=== PATIENT | female | born 1985 | race Caucasian/White ===

== ENCOUNTER 2022-08-07 22:52 | Emergency (ER) | payer MEDICAID, SELFPAY ==
[2022-08-07 22:56] VITALS: BP 154/89; PULSE 68; RESP 16; TEMP 36.6; O2SAT 99; BMI 25.0
--- NOTE | 2022-08-07 23:05 | ED.LOWEXI1 ---
HPI - Extremity Injury (Lower) General Chief Complaint: Extremity Injury, Lower Stated Complaint: RIGHT FOOT PAIN Time Seen by Provider: 08/07/22 23:05 Source: patient and family Mode of arrival: walk-in Limitations: no limitations History of Present Illness HPI Narrative: Patient presents to emergency department complaining of right foot swelling.Patient states that she was getting into the tanning bed she noted swelling to the right foot web space between the great toe and the 2nd toe. She states she has a history of rheumatoid arthritis. She denies any trauma. She denies any fever, no chills. She does not think she was bit by an insect. She does not have any pain and is not itchy. thought that it looked bigger so he came for evaluation. Patient states she used strep flip-flops in the past but not today. She denies any pain. She has not taken anything at home. Related Data Home Medications Medication Instructions Recorded Confirmed buprenorphine 8 mg-naloxone 2 mg 1 tab sublingual DAILY 08/07/22 08/07/22 sublingual tablet gabapentin 600 mg tablet mg 08/07/22 leflunomide 10 mg tablet mg 08/07/22 Previous Rx's Medication Instructions Recorded prednisone 20 mg tablet 20 mg PO DAILY 3 days #3 tabs 08/08/22 Allergies Allergy/AdvReac Type Severity Reaction Status Date / Time No Known Drug Allergies Allergy Verified 08/07/22 23:00 Review of Systems ROS Status of ROS 10 or more systems reviewed and unremarkable except as noted in history and below Exam Narrative Exam Narrative: Nurses notes and vital signs reviewed and patient is not hypoxic. General: Nontoxic, Well-appearing and in no apparent distress. Skin: Warm, dry, no pallor noted. No Rash Head: Normocephalic, atraumatic. Neck: Supple, non-tender. Eye: Pupils are equal, round and EOMI. No scleral icterus. Ears, Nose, Mouth, and Throat: TM clear, no posterior oropharynx erythema or nasal mucosal hypertrophy, uvula is mid-line Oral mucosa is moist Cardiovascular: Regular Rate and Rhythm without murmur, gallop or rub. Respiratory: No accessory muscle use or respiratory distress. Lungs are clear to auscultation, no wheezing, rales or rhonchi Chest Wall: no tenderness Back: No midline thoracic or lumbar vertebral tenderness. No CVA tenderness Musculoskeletal: Mild edema and erythema noted to the right web of the great toe and 2nd toe. There is no warmth, proximal streaking, signs of trauma, or infection. Seems to be more of localized inflammation. There is nontender. DP +2, tp +2, capillary refill is brisk. normal ROM, no calf or popliteal tenderness, no lower extremity edema/swelling GI: Abdomen is soft, non-distended. Normal bowel sounds. No masses appreciated. No tenderness to palpation. No rebound, guarding, or rigidity noted. Neurological: A&O x4. No cranial nerve dysfunction observed. No truncal ataxia. Moves all extremities. Sensation intact. Psychiatric: Cooperative and interactive. Normal mood and affect. Constitutional Vital Signs - 24 hr 08/07/22 22:56 Temperature 97.9 F Pulse Rate [Monitor] 68 Respiratory Rate 16 Blood Pressure [Left Arm] 154/89 H Pulse Oximetry 99 Course Vital Signs Vital signs: Vital Signs Temperature 97.9 F 08/07/22 22:56 Pulse Rate 68 08/07/22 22:56 Respiratory Rate 16 08/07/22 22:56 Blood Pressure 154/89 H 08/07/22 22:56 Pulse Oximetry 99 08/07/22 22:56 Temperature 97.9 F 08/07/22 22:56 Pulse Rate 68 08/07/22 22:56 Respiratory Rate 16 08/07/22 22:56 Blood Pressure 154/89 H 08/07/22 22:56 Pulse Oximetry 99 08/07/22 22:56 MDM - Extremity Injury (Lower) MDM Narrative Medical decision making narrative: X-ray was done, and it shows inflammation secondary to arthhritis. A uric acid level was done to exclude gout however with the patient's history of rheumatoid arthritis the patient was placed on 20 mg of prednisone for 3 days and she is to follow up with her primary care doctor and fire investigation manager. She did not want to wait for the results of the uric acid prior to leaving the emergency department. They will be called to her. At this time the patient is without objective evidence of an acute process requiring hospitalization or inpatient management. The patient has remained hemodynamically stable. No additional indication for emergent studies at this time. I answered all questions. Discussed discharge instructions including standard anticipatory guidance and what should prompt a return to the emergency department, including if they get worse are not getting better or develops any new or concerning symptoms. I've given them specific time frame in which to follow-up, and who to follow-up with. The patient demonstrates understanding. Patient is nontoxic and stable for discharge with outpatient follow-up. This note was created with the assistance of a speech recognition program. Although the intention is to generate documents that actually reflects the content of the visit, no guarantees can be provided that every mistake has been identified and corrected by editing. Differential Diagnosis Differential diagnosis: Likely fracture of toe and other Discharge Plan Discharge Chief Complaint: Extremity Injury, Lower Clinical Impression: Gouty arthritis of foot, Rheumatoid arthritis flare Patient Disposition: Home, Self-Care Time of Disposition Decision: 00:21 Condition: Good Mode of Transportation: Private Vehicle Prescriptions / Home Meds: New prednisone 20 mg tablet 20 mg PO DAILY 3 Days Qty: 3 0RF No Action gabapentin 600 mg tablet leflunomide 10 mg tablet buprenorphine-naloxone 8-2 mg tablet, sublingual 1 tab sublingual DAILY Instructions: Gout (ED), Rheumatoid Arthritis (ED) Stand Alone Forms: Portal Instructions Referrals: Physician,Non-Staff, MD [Primary Care Provider] - 1 week Discharge Date/Time: 08/08/22 00:30
--- NOTE | 2022-08-07 23:13 | XR_ITS ---
The [address] [address] Patient Name: ERIKA HURLEY MRN: [id number] date: 1985 Sex: F Assigned Patient Location: ER Current Patient Location: ER Accession/Order Number: [id number] Exam Date: 08/07/2022 23:20 Report Date: 08/07/2022 23:54 At the request of: TORRES ARNOLD Procedure: XR foot RT min 3V EXAM: XR foot RT min 3V HISTORY: The patient is a 37-year-old female with swelling between the first and second toes. COMPARISON: Comparison is made to prior radiographs of the contralateral left foot from 10/07/2021. FINDINGS: There is a transverse fracture through the head of the right fifth metatarsal. 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 The current AP view demonstrates small marginal erosions at the medial and lateral base of the great toe proximal phalanx. While these could be due to inflammatory arthropathy such as rheumatoid arthritis, the width of the first metatarsophalangeal joint is maintained and this would be unusual for rheumatoid arthritis. Furthermore, none of the other metatarsophalangeal joints of the right foot are involved, and this would also be unusual for rheumatoid arthritis. The small marginal erosions could be due to gout, and this would explain the presentation of the width of the first metatarsophalangeal joint. I note the patient had similar marginal erosions within the left fifth metatarsal head on the prior radiographs of 10/07/2021, and these could also be due to gout. No calcified tophi are seen within either foot. No other marginal erosions are seen throughout the right foot. The widths and alignment of all the joints are maintained. No acute fractures are seen. IMPRESSION: 1. Small marginal erosions at the base of the right first proximal phalanx, possibly due to gout. 2. 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 Electronically authenticated by: SVETLANA GASCA Date: 08/07/2022 23:54
[2022-08-08] MEDS: PREDNISONE 20 MG TABLET PO (00:26)
[2022-08-08 00:48] LABS: Uric Acid 3.8 mg/dL (2.6-6.0)
== END 2022-08-08 00:30 | disposition home or self-care (01) ==
PROVIDERS: Emergency Provider Emergency Medicine
DX: M10.9 Gout, unspecified (principal); M06.9 Rheumatoid arthritis, unspecified; Z79.899 Other long term (current) drug therapy
CPT/HCPCS: 36415; 73630; 84550; 99284

== ENCOUNTER 2022-08-22 10:54 | Emergency (ER) | payer MEDICAID, SELFPAY ==
[2022-08-22 11:02] VITALS: BP 115/77; PULSE 99; RESP 18; TEMP 36.8; O2SAT 99; BMI 24.2
--- NOTE | 2022-08-22 11:41 | ED_ITS ---
HPI - General Adult General Chief complaint: Extremity Injury, Upper Stated complaint: UPPER EXTREMITY PAIN, BOTH WRISTS Time Seen by Provider: 08/22/22 11:17 Mode of arrival: ambulance History of Present Illness HPI narrative: patient has pain and swelling on both wrists and the right foot. She has RA and sees a specialist in [place]. She gets infusions - she does not know the name of the med - every 7 weeks and they are trying to increase the infusions to every 5 weeks. No fever or chills. No vomiting. She sometimes takes prednisone for flare ups but currently has none. She also complains that she has a cough with greenish sputum production and some wheezing. She is a daily smoker. Related Data Home Medications Medication Instructions Recorded Confirmed buprenorphine 8 mg-naloxone 2 mg 1 tab sublingual DAILY 08/07/22 08/07/22 sublingual tablet gabapentin 600 mg tablet mg 08/07/22 leflunomide 10 mg tablet mg 08/07/22 Previous Rx's Medication Instructions Recorded prednisone 20 mg tablet 20 mg PO DAILY 3 days #3 tabs 08/08/22 albuterol sulfate 90 mcg/actuation 1 inh inhalation Q6H PRN shortness 08/22/22 aerosol inhaler of breath or wheezing #6.7 grams azithromycin 250 mg tablet See Rx Instructions PO .COMPLEX #6 08/22/22 tabs methylprednisolone 4 mg tablets in 4 mg PO DAILY #21 ea 08/22/22 a dose pack (Medrol (Rishabh)) nabumetone 750 mg tablet 750 mg PO BID PRN pain #20 tabs 08/22/22 Allergies Allergy/AdvReac Type Severity Reaction Status Date / Time No Known Drug Allergies Allergy Verified 08/07/22 23:00 Exam Narrative Exam Narrative: Nurses notes and vital signs reviewed and patient is not hypoxic. afebrile General: Well-appearing and in no apparent distress. Skin: Warm, dry, no pallor noted. No rash. Head: Normocephalic, atraumatic. Eye: Pupils are equal, round and EOMI. No scleral icterus. Ears, Nose, Mouth, and Throat: Oral mucosa is moist Cardiovascular: borderline tachycardia. Respiratory: No accessory muscle use or respiratory distress. Lungs with mild, diffuse end expiratory wheezing and some scattered rhonchi Musculoskeletal: normal ROM Neurological: A&O x4. No cranial nerve dysfunction observed. No truncal ataxia. Moves all extremities. Sensation intact. Psychiatric: Cooperative and interactive. Normal mood and affect. Constitutional Vital Signs - 24 hr 08/22/22 11:02 Temperature 98.2 F Pulse Rate [Monitor] 99 H Respiratory Rate 18 Blood Pressure [Left Arm] 115/77 Pulse Oximetry 99 Oxygen Delivery Method Room Air Course Vital Signs Vital signs: Vital Signs Temperature 98.2 F 08/22/22 11:02 Pulse Rate 99 H 08/22/22 11:02 Respiratory Rate 18 08/22/22 11:02 Blood Pressure 115/77 08/22/22 11:02 Pulse Oximetry 99 08/22/22 11:02 Oxygen Delivery Method Room Air 08/22/22 11:02 Temperature 98.2 F 08/22/22 11:02 Pulse Rate 99 H 08/22/22 11:02 Respiratory Rate 18 08/22/22 11:02 Blood Pressure 115/77 08/22/22 11:02 Pulse Oximetry 99 08/22/22 11:02 Oxygen Delivery Method Room Air 08/22/22 11:02 Medical Decision Making [facility] Narrative Medical decision making narrative: the patient is here for acute flare-up of her parlay arthralgia associated with rheumatoid arthritis. She was given IM injections of Toradol and Solu-Medrol. She was discharged home with prescriptions for Relafen and a Medrol Dosepak to manage her arthritis flare. She also has bronchitis and was discharged home with albuterol MDI and a prescription for azithromycin. She can see her PCP for follow up regarding her bronchitis and the professor of psychology for follow up regarding her polyarthralgia. Discharge Plan Discharge Chief Complaint: Extremity Injury, Upper Clinical Impression: Rheumatoid arthritis flare, Bronchitis Patient Disposition: Home, Self-Care Time of Disposition Decision: 11:38 Prescriptions / Home Meds: New nabumetone 750 mg tablet 750 mg PO BID PRN (Reason: pain) Qty: 20 0RF methylprednisolone [Medrol (Rishabh)] 4 mg tablets,dose pack 4 mg PO DAILY Qty: 21 0RF Rx Instructions: follow directions on the package azithromycin 250 mg tablet See Rx Instructions .ROUTE .COMPLEX Qty: 6 0RF Rx Instructions: For 250 mg dose pack: take 500 mg today (day 1), then 250 mg for 4 days (days 2-5) albuterol sulfate 90 mcg/actuation HFA aerosol inhaler 1 inh inhalation Q6H PRN (Reason: shortness of breath or wheezing) Qty: 6.7 0RF No Action gabapentin 600 mg tablet leflunomide 10 mg tablet buprenorphine-naloxone 8-2 mg tablet, sublingual 1 tab sublingual DAILY prednisone 20 mg tablet 20 mg PO DAILY 3 Days Qty: 3 0RF Instructions: Rheumatoid Arthritis (ED), Arthralgia (ED) Stand Alone Forms: Portal Instructions Referrals: Physician,Non-Staff, MD [Primary Care Provider] - 1 week
[2022-08-22] MEDS: KETOROLAC TROMETHAMINE 60 MG/2 ML VIAL IM (11:54)
[2022-08-22] MEDS: METHYLPREDNISOLONE SOD SUCC PF 125 MG/2 ML VIAL IM (11:54)
== END 2022-08-22 12:00 | disposition home or self-care (01) ==
PROVIDERS: Emergency Provider Emergency Medicine
DX: J40 Bronchitis, not specified as acute or chronic (principal); M06.9 Rheumatoid arthritis, unspecified; Z79.899 Other long term (current) drug therapy; F17.210 Nicotine dependence, cigarettes, uncomplicated
CPT/HCPCS: 96372; 99284; J2930

== ENCOUNTER 2022-12-14 13:37 | Outpatient (OUT) | payer MEDICAID, SELFPAY ==
[2022-12-14 14:04] LABS: Alanine Aminotransferase 33 U/L (14-59); Aspartate Amino Transferase 19 U/L (15-37)
== END 2022-12-14 13:38 | disposition home or self-care (01) ==
LOC: LAB 13:37
DX: M05.9 Rheumatoid arthritis with rheumatoid factor, unspecified (principal)
CPT/HCPCS: 36415; 84450; 84460

== ENCOUNTER 2023-04-13 15:36 | Emergency (ER) | payer MEDICAID, SELFPAY ==
[2023-04-13 15:44] VITALS: BP 130/95; PULSE 83; RESP 18; TEMP 36.8; O2SAT 100; BMI 26.6
--- NOTE | 2023-04-13 15:58 | ED_ITS ---
HPI - General Adult General Chief complaint: Weakness Stated complaint: Upper Pain Time Seen by Provider: 04/13/23 15:49 Source: patient Mode of arrival: walk-in Limitations: no limitations History of Present Illness HPI narrative: This patient is here for evaluation of what she believes is a flareup of her rheumatoid arthritis. She is under the care of a bird trapper and has an appointment to see her rheumatology doctor at the end of the month for another infusion. She has been trying several different Biologics and trying to find the best combination for her. She says sometimes she has to go to the emergency room and get some steroids before she scheduled to get her next scheduled infusion. Establish when I listen and examine her she also has a cough. She says she has been coughing up purulent yellow sputum for the last several weeks and has had a cough flareup for the last month or so. She is also out of her albuterol inhaler. She is not running a fever. She actually denies any shortness of breath fever shakes or chills. But purulent sputum is new for her. She continues to smoke a half a pack to 1 pack/cigarettes/day. Related Data Home Medications Medication Instructions Recorded Confirmed buprenorphine 8 mg-naloxone 2 mg 1 tab sublingual DAILY 08/07/22 04/13/23 sublingual tablet gabapentin 600 mg tablet 600 mg PO Q8H 08/07/22 04/13/23 leflunomide 10 mg tablet 10 mg PO Q24H 08/07/22 04/13/23 buprenorphine 8 mg-naloxone 2 mg 1 film sublingual Q24H 04/13/23 04/13/23 sublingual film lisdexamfetamine 50 mg capsule 50 mg PO Q24H 04/13/23 04/13/23 (Vyvanse) venlafaxine 75 mg capsule,extended 75 mg PO Q24H 04/13/23 04/13/23 release 24 hr Previous Rx's Medication Instructions Recorded prednisone 20 mg tablet 20 mg PO DAILY 3 days #3 tabs 08/08/22 albuterol sulfate 90 mcg/actuation 1 inh inhalation Q6H PRN shortness 08/22/22 aerosol inhaler of breath or wheezing #6.7 grams azithromycin 250 mg tablet See Rx Instructions PO .COMPLEX #6 08/22/22 tabs methylprednisolone 4 mg tablets in 4 mg PO DAILY #21 ea 08/22/22 a dose pack (Medrol (Rishabh)) nabumetone 750 mg tablet 750 mg PO BID PRN pain #20 tabs 08/22/22 Allergies Allergy/AdvReac Type Severity Reaction Status Date / Time No Known Drug Allergies Allergy Verified 08/07/22 23:00 [facility] Social History Smoking status: Never smoker Exam Narrative Exam Narrative: Patient is awake alert in no distress vital signs are stable her pulse oximetry is normal. On examination chest when I have her breathe do not hear any rales or rhonchi but she does have some end expiratory bronchospasm made worse with coughing maneuvers. Her heart sounds are normal.. Examination trunk torso and extremities she has some aching in the in her small to medium size joints of the distal extremities in the upper limbs as well but I do not see evidence of infectious arthritis or cellulitis to the overlying soft tissues over the joints. She just has generalized achiness of her feet and her hands. Otherwise her skin and integument are normal. Constitutional Vital Signs, click to edit/add: Last Vital Signs Temp 98.2 F 04/13/23 15:44 Pulse 83 04/13/23 15:44 Resp 18 04/13/23 15:44 BP 130/95 H 04/13/23 15:44 Pulse Ox 100 04/13/23 15:44 Course Vital Signs Vital signs: Vital Signs Temperature 98.2 F 04/13/23 15:44 Pulse Rate 83 04/13/23 15:44 Respiratory Rate 18 04/13/23 15:44 Blood Pressure 130/95 H 04/13/23 15:44 Pulse Oximetry 100 04/13/23 15:44 Temperature 98.2 F 04/13/23 15:44 Pulse Rate 83 04/13/23 15:44 Respiratory Rate 18 04/13/23 15:44 Blood Pressure 130/95 H 04/13/23 15:44 Pulse Oximetry 100 04/13/23 15:44 Medical Decision Making [facility] Narrative Medical decision making narrative: The patient presented with increasing polyarthritis requesting essentially a steroid burst before she can get her next biologic infusion in about 10 days. Incidentally she does have purulent bronchitis and continues to smoke cigarettes. With her using the steroid I think it is important to cover her with a steroid. She is out of her inhaler so I will give her that and I want to give her an antibiotic coverage as well Discharge Plan Discharge Chief Complaint: Weakness Clinical Impression: Acute purulent bronchitis, Flare of rheumatoid arthritis Patient Disposition: Home, Self-Care Time of Disposition Decision: 16:02 Prescriptions / Home Meds: No Action gabapentin 600 mg tablet 600 mg PO Q8H leflunomide 10 mg tablet 10 mg PO Q24H buprenorphine-naloxone 8-2 mg tablet, sublingual 1 tab sublingual DAILY prednisone 20 mg tablet 20 mg PO DAILY 3 Days Qty: 3 0RF lisdexamfetamine [Vyvanse] 50 mg capsule 50 mg PO Q24H venlafaxine 75 mg capsule,extended release 24hr 75 mg PO Q24H buprenorphine-naloxone 8-2 mg film 1 film sublingual Q24H nabumetone 750 mg tablet 750 mg PO BID PRN (Reason: pain) Qty: 20 0RF methylprednisolone [Medrol (Rishabh)] 4 mg tablets,dose pack 4 mg PO DAILY Qty: 21 0RF Rx Instructions: follow directions on the package azithromycin 250 mg tablet See Rx Instructions .ROUTE .COMPLEX Qty: 6 0RF Rx Instructions: For 250 mg dose pack: take 500 mg today (day 1), then 250 mg for 4 days (days 2-5) albuterol sulfate 90 mcg/actuation HFA aerosol inhaler 1 inh inhalation Q6H PRN (Reason: shortness of breath or wheezing) Qty: 6.7 0RF Additional Instructions: Prednisone/albuterol/azithromycin Stand Alone Forms: Portal Instructions Referrals: Niya Santiago INSTRUCTIONAL SUPPORT SPECIALIST [Primary Care Provider] - 1 week
== END 2023-04-13 16:18 | disposition home or self-care (01) ==
PROVIDERS: Emergency Provider Emergency Medicine Emergency Medical Services; PCP Nurse Practitioner
DX: J20.9 Acute bronchitis, unspecified (principal); M06.9 Rheumatoid arthritis, unspecified; F17.210 Nicotine dependence, cigarettes, uncomplicated; Z79.899 Other long term (current) drug therapy
CPT/HCPCS: 99283

== ENCOUNTER 2023-06-01 22:38 | Emergency (ER) | payer MEDICAID, SELFPAY ==
[2023-06-01 22:41] VITALS: BP 142/82; PULSE 68; TEMP 36.6; O2SAT 100; BMI 27.5
[2023-06-01 22:48] VITALS: O2SAT 100
--- NOTE | 2023-06-01 22:55 | ED.URI1 ---
HPI - URI/Sore Throat General Chief Complaint: Upper Respiratory Infection Stated Complaint: Upper Respiratory Infection Time Seen by Provider: 06/01/23 22:49 Source: patient Limitations: no limitations History of Present Illness HPI Narrative: One week of chest congestion, cough, wheezing. Mild sore throat. No fever or chills. No GI or symptoms. Patient smokes daily. No vaping. She was started on an albuterol MDI 5 days ago at the urgent care. No other meds were prescribed. She has rheumatoid arthritis. Related Data Home Medications ?Medication ?Instructions ?Recorded ?Confirmed buprenorphine 8 mg-naloxone 2 mg 1 tab sublingual DAILY 08/07/22 06/01/23 sublingual tablet gabapentin 600 mg tablet 600 mg PO Q8H 08/07/22 06/01/23 leflunomide 10 mg tablet 10 mg PO Q24H 08/07/22 06/01/23 buprenorphine 8 mg-naloxone 2 mg 1 film sublingual Q24H 04/13/23 06/01/23 sublingual film lisdexamfetamine 50 mg capsule 50 mg PO Q24H 04/13/23 06/01/23 (Vyvanse) Previous Rx's ?Medication ?Instructions ?Recorded azithromycin 250 mg tablet 250 mg PO DAILY 4 days #4 tabs 06/01/23 prednisone 20 mg tablet 40 mg (2 x 20 mg) PO DAILY 3 days 06/01/23 #6 tabs Allergies Allergy/AdvReac Type Severity Reaction Status Date / Time No Known Drug Allergies Allergy Verified 06/01/23 22:44 [facility] Social History Smoking status: Never smoker Exam Narrative Exam Narrative: Nurses notes and vital signs reviewed and patient is not hypoxic. afebrile General: Well-appearing and in no apparent distress. Skin: Warm, dry, no pallor noted. No rash. Head: Normocephalic, atraumatic. Neck: Supple, non-tender. No cervical lymphadenopathy. No meningismus. Eye: Pupils are equal, round and EOMI. No scleral icterus. Ears, Nose, Mouth, and Throat: TM are clear, mild posterior oropharynx erythema without exudate or nasal mucosal hypertrophy, uvula is mid-line Oral mucosa is moist Cardiovascular: Regular Rate and Rhythm without murmur, gallop or rub. Respiratory: No accessory muscle use or respiratory distress. Lungs With end expiratory wheezing and scattered rhonchi throughout Chest Wall: no tenderness Musculoskeletal: normal ROM, no calf or popliteal tenderness, no lower extremity edema/swelling GI: Abdomen is soft, non-distended. Normal bowel sounds. No tenderness to palpation. No rebound, guarding, or rigidity noted. Neurological: A&O x4. No cranial nerve dysfunction observed. No truncal ataxia. Moves all extremities. Sensation intact. Psychiatric: Cooperative and interactive. Normal mood and affect. Constitutional Vital Signs, click to edit/add: Last Vital Signs Temp 98 F 06/01/23 22:41 Pulse 68 06/01/23 22:41 Resp 18 06/01/23 22:41 BP 142/82 H 06/01/23 22:41 Pulse Ox 100 06/01/23 22:48 O2 Del Method Room Air 06/01/23 22:48 Course Vital Signs Vital signs: Vital Signs Temperature 98 F 06/01/23 22:41 Pulse Rate 68 06/01/23 22:41 Respiratory Rate 18 06/01/23 22:41 Blood Pressure 142/82 H 06/01/23 22:41 Pulse Oximetry 100 06/01/23 22:41 Oxygen Delivery Method Room Air 06/01/23 22:41 Temperature 98 F 06/01/23 22:41 Pulse Rate 68 06/01/23 22:41 Respiratory Rate 18 06/01/23 22:41 Blood Pressure 142/82 H 06/01/23 22:41 Pulse Oximetry 100 06/01/23 22:48 Oxygen Delivery Method Room Air 06/01/23 22:48 MDM - URI/Sore Throat MDM Narrative Medical decision making narrative: The patient was started on antibiotic in the emergency department. She was also given a dose of prednisone orally. She received a DuoNeb treatment and was discharged home with a prescription for additional azithromycin as well as prednisone. Primary care physician follow-up recommended as needed or ED return if she worsens Discharge Plan Discharge Stand Alone Forms: Portal Instructions Chief Complaint: Upper Respiratory Infection Clinical Impression: Upper respiratory infection, Bronchitis Patient Disposition: Home, Self-Care Time of Disposition Decision: 22:58 Prescriptions / Home Meds: New azithromycin 250 mg tablet 250 mg PO DAILY 4 Days Qty: 4 0RF Rx Instructions: start on day 2 of therapy prednisone 20 mg tablet 40 mg PO DAILY 3 Days Qty: 6 0RF No Action gabapentin 600 mg tablet 600 mg PO Q8H leflunomide 10 mg tablet 10 mg PO Q24H buprenorphine-naloxone 8-2 mg tablet, sublingual 1 tab sublingual DAILY lisdexamfetamine [Vyvanse] 50 mg capsule 50 mg PO Q24H buprenorphine-naloxone 8-2 mg film 1 film sublingual Q24H Print Language: [place]ian Instructions: Upper Respiratory Infection (ED), Acute Bronchitis (ED) Referrals: Niya Santiago [employer] [Primary Care Provider] - 1 week
[2023-06-01] MEDS: PREDNISONE 20 MG TABLET 60 MG PO (23:06)
[2023-06-01] MEDS: AZITHROMYCIN 250 MG TABLET 500 MG PO (23:07)
[2023-06-01 23:08] VITALS: PULSE 65; O2SAT 96
[2023-06-01] MEDS: IPRATROPIUM/ALBUTEROL SULFATE 3 ML AMPUL.NEB IH (23:08)
== END 2023-06-01 23:26 | disposition home or self-care (01) ==
PROVIDERS: Emergency Provider Emergency Medicine; PCP Nurse Practitioner
DX: J06.9 Acute upper respiratory infection, unspecified (principal); J40 Bronchitis, not specified as acute or chronic; F17.210 Nicotine dependence, cigarettes, uncomplicated; Z79.899 Other long term (current) drug therapy
CPT/HCPCS: 94640; 99283

== ENCOUNTER 2023-08-14 05:55 | Emergency (ER) | payer MEDICAID, SELFPAY ==
[2023-08-14 05:59] VITALS: BP 138/89; PULSE 114; TEMP 36.9; O2SAT 97; BMI 24.8
--- OUTSIDE RECORDS SUMMARY | 2023-08-14 06:02 | XMS_ITS | CCD ---
Author Organization [facility] Care Team Providers Care Broom Handle Dipper Name Role Phone Unavailable Primary Care Provider Unavailjason e Tino Blake Primary Care Provider ALEX REINOSO Attending Unavailable Tino Blake Primary Care Provider 1( [phone] Tino Blake Primary Care Provider Tino Blake Primary Care Provider REQUEST, NONE LISTED Primary Care Unavaila ble CHARANJIT QUINTERO Admitting Unavailable CHARANJIT QUINTERO Attending Unavailable CHARANJIT QUINTERO Consulting Unavailable REQUEST, NONE LISTED Primary Care Unavaila ble HAY ., DR BAKER Admitting Unavailable HAY ., DR BAKER Attending Unavailable HAY ., DR BAKER Consulting Unavailable MELODY ., DR ARMENTA Admitting Unavailable MELODY ., DR ARMENTA Attending Unavailable REQUEST, NONE LISTED Primary Care Unavaila ble MELODY ., DR ARMENTA Consulting Unavailable MELODY ., DR ARMENTA Admitting Unavailable MELODY ., DR ARMENTA Attending Unavailable REQUEST, NONE LISTED Primary Care Unavaila ble MELODY ., DR ARMENTA Consulting Unavailable MELODY ., DR ARMENTA Admitting Unavailable MELODY ., DR ARMENTA Attending Unavailable REQUEST, DR WILSON LISTED Primary Care Unavaila ble MELODY ., DR ARMENTA Consulting Unavailable NORBERTO BECKMAN Consulting Unavailable TERESO VELÁZQUEZ Consulting Unavailable MELODY ., DR ARMENTA Admitting Unavailable MELODY ., DR ARMENTA Attending Unavailable REQUEST, NONE LISTED Primary Care Unavaila ble MELODY ., DR ARMENTA Consulting Unavailable ADRIANA STEPHENS Admitting Unavailable ADRIANA STEPHENS Attending Unavailable REQUEST, DR WILSON LISTED Primary Care Unavaila ble ALCIDES ., SINAN CRUZ Consulting Unavailabl e RIMMA REIS Consulting Unavailable [facility] MEEKS Attending Unavailable NIYA MEEKS Attending Unavailable NIYA MEEKS Attending Unavailable [facility] [place] Unavaila ble SELF Referring Unavailable HAYDEN, [facility] Unavaila ble LIZ, FARIBA M Attending Unavailable JUAN DANIEL LEOS Referring Unavailable [place], [facility] Unavaila ble HADYEN, [facility] Unavaila ble SELF Referring Unavailable [place], [facility] Unavaila ble LIZ, FARIBA M Attending Unavailable [place], [facility] Unavaila ble HAYDEN, [facility] Unavaila ble HAYDEN, [facility] Unavaila ble LIZ, FARIBA M Referring Unavailable [place], [facility] Unavaila ble LIZ, FARIBA M Attending Unavailable [facility] [place] Unavaila ble HAYDEN, [facility] Unavaila ble LIZ, FARIBA M Referring Unavailable [facility] [place] Unavaila ble LIZ, FARIBA M Attending Unavailable [facility] [place] Unavaila ble Allergies Allergy Classification Reported Allergen(s) Allergy Type Date of Onset Reaction(s) Facility (20 sources) inFLIXimab; Translations: [INFLIXIMAB-AXXQ] Drug Allergy 10-22-2022 Anaphylaxis [facility] Medications Current Medications Medication Drug Class(es) Dates Sig (Normalized) Sig (Original) acetaminophen 325 mg oral tablet (2 sources) Start: 07-11-2019 End: 07-12-2019 take 650 mg by mouth every four hours as needed for fever, then take 4000 mg by mouth every twenty-four hours as needed for fever 650 mg, Oral, EVERY 4 HOURS PRN, Fever, Fever >100.5 F (38 C) or pain 1-10, Starting 07/12/19 at 1354 Maximum dose of acetaminophen is 4000 mg from all sources in 24 hours. [id number] 200 actuat albuterol 0.09 mg/actuat metered dose inhaler (20 sources) beta2-Adrenergic Agonist Start: 05-26-2023 take 2 puff(s) by inhalation every four hours as needed for wheezing albuterol HFA (PROVENTIL HFA, VENTOLIN HFA) 90 mcg/actuation inhaler Indications: Wheezing Inhale 2 Puffs as instructed every 4 hours as needed for wheezing/shortness of breath. 6.7 g 0 05/26/2023 Active Start: 05-26-2023 End: 05-26-2023 albuterol 2.5 mg /3 mL (0.08 3 %) 2.5 mg (PROVENTIL) Start: 08-22-2022 End: 05-26-2023 take 1 puff(s) by inhalation every six hours as needed for wheezing albuterol HFA (PROVENTIL HFA, VENTOLIN HFA) 90 mcg/actuation inhaler INHALE 1 PUFF EVERY 6 HOURS NEEDED FOR SHORTNESS OF BREATH OR WHEEZING 0 08/22/2022 05/26/2023 Discontinued Comment on above: INHALE 1 PUFF EVERY 6 HOURS NEEDED FOR SHORTNESS OF BREATH OR WHEEZING Inhale 2 Puffs as in structed every 4 hours as needed for wheezing/shortness of breath. albuterol 0.833 mg/ml / ipratropium bromide 0.167 mg/ml inhalation solution (2 sources) Anticholinergic, beta2-Adrenergic Agonist Start: 09-15-2020 ipratropium-albuterol (DUONEB) nebulizer solution 1 ampule Start: 09-15-2020 take 3 mL by inhalat ion every four hours ipratropium-albuterol (DUONEB) 0.5-2.5 (3) MG/3ML SOLN nebulizer solution Inhale 3 mLs into the lungs every 4 hours 360 mL 0 09/15/2020 Active benzocaine 200 mg/ml / menthol 5 mg/ml topical spray (1 source) Standardized Chemical Allergen Start: 07-12-2019 apply 1 dose topically twice daily Topical, 2 TIMES DAILY, First dose on Wed07/12/19 at 1415 Apply to perineal area. Patient is capable and may self administer at bedside. budesonide 0.25 mg/ml inhalation suspension (2 sources) Corticosteroid Start: 09-15-2020 budesonide (PULMICORT) nebulizer suspension 500 mcg Start: 09-15-2020 budesonide (PU LMICORT) 0.5 MG/2ML nebulizer suspension Take 2 mLs by nebulization 2 times daily 30 ampule 0 09/15/2020 Active buprenorphine HCl/naloxone HCl (BUPRENORPHINE-NALOXONE BUCCAL) (6 sources) Start: 08-07-2022 buprenorphine HCl/naloxone HCl (BUPRENORPHINE-NALOXONE BUCCAL) Buprenorphine-Naloxone Active 1 FILM SL Q24H April 13, 2023 12:00am 0 08/07/2022 Active Comment on above: Buprenorphine-Naloxo ne Active 1 FILM SL Q24H April 13, 2023 12:00am 1 ml carboprost 0.25 mg/ml injection (1 source) Prostaglandin Analog Start: 07-11-2019 carboprost (HEMABATE) injection 250 mcg cephalexin 500 mg oral capsule (1 source) Cephalosporin Antibacterial Start: 05-12-2019 End: 05-19-2019 take 1 capsule by mouth four times daily cephALEXin (KEFLEX) 500 MG capsule Take 1 capsule by mouth 4 times daily for 7 days 28 capsule 0 05/12/2019 05/19/2019 Active cetirizine hydrochloride 10 mg oral tablet (7 sources) Histamine-1 Receptor Antagonist Start: 05-26-2023 take 1 tablet by mouth once daily cetirizine (ZYRTEC) 10 mg tablet Indications: Wheezing Take 1 tablet by mouth once daily. 30 tablet 0 05/26/2023 Active Comment on above: Take 1 tablet by jude once daily. cholecalciferol 0.025 mg oral capsule (20 sources) Vitamin D Start: 01-06-2022 take 2 capsules by mouth once daily Cholecalciferol, Vitamin D3, (VITAMIN D) 25 mcg (1,000 unit) cap Indications: Vitamin D deficiency Take 2 capsules by mouth once daily. 60 capsule 3 01/06/2022 Active Start: 10-29-2021 End: 10-29-2021 take 2 capsules by mouth once daily Cholecalciferol, Vitamin D3, (VITAMIN D) 25 mcg (1,000 unit) cap Indications: Vitamin D deficiency Take 2 capsules by mouth once daily. 60 capsule 3 10/29/2021 Active Comment on above: Take 2 capsules by m out once daily. clobetasol propionate 0.5 mg/ml topical cream (6 sources) Corticosteroid Start: 2023 clobetasol (TEMOVATE) 0.05 % cream APPLY THIN LAYER TO ELBOW REGION TWICE DAILY FOR 14 DAYS 0 03/11/2023 Active Comment on above: APPLY THIN LAYER TO ELBOW REGION TWICE DAILY FOR 14 DAYS dexamethasone 1 mg/ml / tobramycin 3 mg/ml ophthalmic suspension (1 source) Aminoglycoside Antibacterial, Corticosteroid Start: 2018 End: 2018 take 2 drop(s) into the eye(s) four times daily tobramycin-dexameth asone (TOBRADEX) 0.3-0.1 % ophthalmic suspension Indications: Other mucopurulent conjunctivitis of right eye Place 2 drops into the right eye 4 times daily for 7 days 1 Bottle 0 01/16/2019 01/23/2019 Active dextromethorphan hydrobromide 2 mg/ml / guaiFENesin 20 mg/ml oral suspension (1 source) Uncompetitive V-bnutnz-Q-aspartate Receptor Antagonist, Sigma-1 Agonist Start: 2020 End: 2020 take 5 mL by mouth three times daily as needed for cough guaiFENesin-dextrom ethorphan (ROBITUSSIN DM) 100-10 MG/5ML syrup Take 5 mLs by mouth 3 times daily as needed for Cough 120 mL 0 09/15/2020 09/25/2020 Active docusate sodium 100 mg oral capsule (1 source) Start: 2019 take 100 mg by mouth twice daily as needed for constipation 100 mg, Oral, 2 TIMES DAILY PRN, Constipation, Starting Wed07/12/19 at 1354 Do not crush or break. ibuprofen 800 mg oral tablet (20 sources) Nonsteroidal Anti-inflammatory Drug Start: 2019 take 800 mg by mouth every eight hours 800 mg, Oral, EVERY 8 HOURS, First dose on Wed07/12/19 at 1500 Do not crush or break. End: 10-22-2022 IBUPROFEN ORAL Take by mouth . 0 10/22/2022 Discontinued IBUPROFEN ORAL T cullen by mouth. 0 Active Comment on above: Take by mouth. labetalol hydrochloride 100 mg oral tablet (20 sources) beta-Adrenergic Camila Start: 07-11-2019 End: 07-11-2019 labetalol (NORMODYNE) tablet 100 mg Start: 11-18-2018 End: 05-04-2019 take 1 tablet by mouth twice daily labetalol (NORMODYNE) 100 MG tablet Indications: Hypertension affecting in third trimester Take 1 tablet by mouth 2 times daily 60 tablet 3 05/01/2019 05/04/2019 Discontinued (LIST CLEANUP) End: 09-15-2020 take 1 tablet by mouth once daily labetalol (NORMODYNE) 100 MG tablet Take 100 mg by mouth daily 0 09/15/2020 Discontinued (LIST CLEANUP) lansinoh lanolin ointment (1 source) Start: 07-12-2019 Topical, PRN, Dry Skin, nipple discomfort, Starting 07/12/19 at 1354, leflunomide 10 mg oral tablet (20 sources) Antirheumatic Agent Start: 07-15-2022 End: 12-18-2022 take 1 tablet by mouth once daily leflunomide (ARAVA) 10 mg tablet Indications: Seropositive rheumatoid arthritis (HCC) Take 1 tablet by mouth once daily. 30 tablet 3 12/18/2022 Active Start: 10-29-2021 End: 03-09-2022 take 1 tablet by mouth once daily leflunomide (ARAVA) 10 mg tablet Indications: Seropositive rheumatoid arthritis (HCC) TAKE 1 TABLET BY MOUTH EVERY DAY 30 tablet 3 03/09/2022 Active Comment on above: Take 1 tablet by jude th once daily. TAKE 1 TABLET BY JUDE TH EVERY DAY Miconazole (1 source) Azole Antifungal Start: 019 End: 019 Miconazole Nitrate Applicator (MICONAZOLE 3 APPLICATOR) 200 & 2 MG-% (9GM) KIT Place 1 applicator vaginally nightly for 3 days Yeast infection in . 1 kit 0 12/03/2018 12/06/2018 Active miSOPROStol 0.1 mg oral tablet (1 source) Prostaglandin E1 Analog Start: 020 misoprostol (CYTOTEC) tablet 900 mcg nabumetone 750 mg oral tablet (7 sources) Nonsteroidal Anti-inflammatory Drug Start: 023 End: 023 nabumetone (RELAFEN) 750 mg tablet Take by mouth. 0 08/22/2022 Active Comment on above: Take 750 mg by mouth twice daily as needed. Take by mouth. ondansetron 4 mg disintegrating oral tablet (20 sources) Serotonin-3 Receptor Antagonist Start: take 1 tablet by mouth every eight hours as needed for nausea ondansetron orally disintegrating (ZOFRAN ODT) 4 mg disintegrating tablet DISSOLVE 1 TABLET BY MOUTH EVERY 8 HOURS NEEDED FOR NAUSEA 0 12/16/2022 Active Comment on above: DISSOLVE 1 TABLET BY MOUTH EVERY 8 HOURS NEEDED FOR NAUSEA oseltamivir 75 mg oral capsule (1 source) Neuraminidase Inhibitor Start: End: take 1 capsule by mouth twice daily oseltamivir (TAMIFLU) 75 MG capsule Indications: Influenza Take 1 capsule by mouth 2 times daily for 5 days 10 capsule 0 04/04/2019 04/09/2019 Active predniSONE 20 mg oral tablet (20 sources) Start: End: take 2 tablets by mouth once daily predniSONE (DELTASONE) 20 mg tablet Indications: Wheezing Take 2 tablets by mouth once daily for 5 days. 10 tablet 0 05/26/2023 05/31/2023 Active Start: 01-20-2023 End: 2023 take 4 tablets by mouth once daily, then take 3 tablets by mouth once daily, then take 2 tablets by mouth once daily, then take 1 tablet by mouth once daily at breakfast predniSONE (DELTASONE) 5 mg tablet Take 4 tablets by mouth once daily for 7 days, THEN 3 tablets once daily for 7 days, THEN 2 tablets once daily for 7 days, THEN 1 tablet once daily for 7 days. With breakfast. No other nsaids. 70 tablet 0 01/20/2023 2023 Active Start: 11-12-2022 End: 12-13-2022 predniSONE (DELTASONE) 5 mg tablet Take 2 tablets by mouth once daily for 14 days, THEN 1 tablet once daily for 14 days. With breakfast. Then stop. No other nsaids.. 42 tablet 0 11/16/2022 12/13/2022 Active Start: 08-31-2022 End: 09-28-2022 predniSONE (DELTASONE) 5 mg tablet Take 2 tablets by mouth once daily for 14 days, THEN 1 tablet once daily for 14 days. With breakfast. Then stop. No other nsaids.. 42 tablet 0 08/31/2022 09/28/2022 Active Start: 04-28-2022 End: 08-31-2022 take 1 tablet by mouth once daily at breakfast predniSONE (DELTASONE) 5 mg tablet Take 1 tablet by mouth once daily. With breakfast for 2 weeks . No other nsaids. 14 tablet 0 04/28/2022 08/31/2022 Discontinued End: 03-15-2020 take 1 tablet by mouth once daily predniSONE (DELTASONE) 5 MG tablet Take 5 mg by mouth daily Tapering dose 0 Active Comment on above: [facility] With breakfast for 2 weeks . No other nsaids. Take 2 tablets by mo [facility] once daily for 14 days, THEN 1 tablet once daily for 14 days. With breakfast. Then stop. No other nsaids.. Take 4 tablets by mo [facility] once daily for 7 days, THEN 3 tablets once daily for 7 days, THEN 2 tablets once daily for 7 days, THEN 1 tablet once daily for 7 days. With breakfast. No other nsaids. Take 2 tablets by mo [facility] once daily for 5 days. Respiratory Therapy Supplies (NEBULIZER/TUBING/MOUTH PIECE) KIT (1 source) Start: 09-15-2020 Respiratory Therapy Supplies (NEBULIZER/TUBING/MOUT HPIECE) KIT 1 kit by Does not apply route daily as needed (reactive airway disease) 1 kit 0 09/15/2020 Active rho(d) immune globulin, human 1500 unt prefilled syringe (2 sources) Human Immunoglobulin G Start: 07-12-2019 300 mcg, Intramuscular, PRN, if mom negative and baby positive, Starting Wed07/12/19 at 1354, For 1 dose, Start: 05-04-2019 End: 05-04-2019 rho(D) immune globulin (HYPE RRHO S/D) injection 300 mcg 3 ml sodium chloride 9 mg/ml injection (3 sources) Start: 07-12-2019 10 mL, Intrave nous, EVERY 12 HOURS SCHEDULED (2 times per day), First dose on Wed07/12/19 at 2100, Start: 07-12-2019 take 10 mL intravenous route o nce 10 mL, Intravenous, PRN, Line Care, Starting Wed07/12/19 at 1354 After every IV line use Start: 07-11-2019 End: 07-12-2019 sodium chloride flush 0.9 % injection 10 mL triamcinolone acetonide 0.001 mg/mg topical ointment (20 sources) Corticosteroid Start: 10-08-2022 triamcinolone acetonide (KENALOG) 0.1 % ointment APPLY TWICE A DAY TO THE AFFECTED AREA OF THE ELBOW 0 10/08/2022 Active Comment on above: APPLY TWICE A DAY TO THE AFFECTED AREA OF THE ELBOW 24 hr venlafaxine 150 mg extended release oral capsule (20 sources) Serotonin and Norepinephrine Reuptake Inhibitor Start: 05-03-2023 take 1 capsule by mouth once daily venlafaxine ER (EFFEXOR XR) 150 mg 24 hr capsule TAKE 1 CAPSULE BY MOUTH DAILY. DO NOT CRUSH OR CHEW 0 05/03/2023 Active Start: 10-04-2022 End: 05-26-2023 take 1 capsule by mouth every hour venlafaxine ER (EFFEXOR XR) 37.5 mg 24 hr capsule Take 1 capsule by mouth every afternoon. 0 10/04/2022 05/26/2023 Discontinued Comment on above: Take 1 capsule by mo uth every afternoon. TAKE 1 CAPSULE BY MO UTH DAILY. DO NOT CRUSH OR CHEW witch love 500 mg/ml medicated pad (1 source) Start: 0 apply 1 dose topically twice daily Topical, 2 TIMES DAILY, First dose on Wed07/12/19 at 1415 Apply to perineal area. Patient is capable and may self administer at bedside. Completed/Discontinued Medications Medication Drug Class(es) Dates Sig (Normalized) Sig (Original) acetaminophen 325 mg / butalbital 50 mg / caffeine 40 mg oral tablet (13 sources) Barbiturate, Central Nervous System Stimulant, Methylxanthine Start: 01-16-2019 End: 09-15-2020 take 1-2 tablets by mouth every six hours as needed for headache butalbital-acetam inophen-caffeine (FIORICET, ESGIC) 50-325-40 MG per tablet Indications: Other headache syndrome 1-2 tablets by mouth every 6 hours as needed for headache; no more than 6 tablets in 24 hours 30 tablet 1 01/16/2019 09/15/2020 Discontinued (LIST CLEANUP) albuterol sulfate HFA 108 (90 Base) MCG/ACT inhaler (8 sources) Start: 04-04-2019 End: 07-13-2019 take 2 puff(s) by inhalation every six hours as needed for wheezing albuterol sulfate HFA 108 (90 Base) MCG/ACT inhaler Indications: Cough Inhale 2 puffs into the lungs every 6 hours as needed for Wheezing 1 Inhaler 0 04/04/2019 07/13/2019 Discontinued (Stop Taking at Discharge) Start: 04-04-2019 take 2 puff(s) by in halation every six hours as needed for wheezing albuterol sulfate HFA 108 (90 Base) MCG/ACT inhaler Indications: Cough Inhale 2 puffs into the lungs every 6 hours as needed for Wheezing 1 Inhaler 0 04/04/2019 Active atomoxetine 80 mg oral capsule (16 sources) Norepinephrine Reuptake Inhibitor Start: 03-23-2022 End: 10-22-2022 take 1 capsule by mouth once daily, then take 1 capsule by mouth once daily Atomoxetine 80 mg capsule Take 80 mg by mouth once daily. Take 80 mg by mouth once daily. 0 03/23/2022 10/22/2022 Discontinued Comment on above: Take 80 mg by mouth once daily. Take 80 mg by mouth once daily. buprenorphine 8 mg / naloxone 2 mg sublingual film (20 sources) Partial Opioid Agonist, Opioid Antagonist End: 05-26-2023 buprenorphine-nalo xone (SUBOXONE) 8-2 mg film Dissolve under the tongue once daily. Prescribed by outside physician 0 05/26/2023 Discontinued Comment on above: Dissolve under the t ongue once daily. Prescribed by outside physician 2 ml butorphanol tartrate 2 mg/ml injection (1 source) Opioid Agonist/Antagonist Start: 07-11-2019 End: 07-12-2019 butorphanol (STADOL) injection 1 mg calcium chloride 0.0014 meq/ml / potassium chloride 0.004 meq/ml / sodium chloride 0.103 meq/ml / sodium lactate 0.028 meq/ml injectable solution (1 source) Start: 07-11-2019 End: 07-12-2019 lactated ringers infusion dexamethasone phosphate 10 mg/ml injectable solution (2 sources) Corticosteroid Start: 09-15-2020 End: 09-15-2020 dexamethasone (DECADRON) injection 6 mg Start: 03-15-2020 End: 03-20-2020 take 1 tablet by mouth once daily at breakfast dexamethasone (DECADRON) 6 MG tablet Take 1 tablet by mouth daily (with breakfast) for 5 days 5 tablet 0 03/15/2020 03/20/2020 Active doxycycline hyclate 100 mg oral capsule (2 sources) Tetracycline-class Drug Start: 09-15-2020 End: 09-22-2020 doxycycline hyclate (VIBRAMYCIN) capsule 100 mg ergocalciferol 1.25 mg oral capsule (20 sources) Provitamin D2 Compound Start: 04-15-2022 End: 01-20-2023 ergocalciferol 50,000 unit capsule (VITAMIN D2, DRISDOL) Indications: Vitamin D deficiency Take 1 capsule by mouth two times a week. (FOR EXAMPLE ONE CAPSULE ON WEDNESDAY AND ONE ON WEDNESDAY) FOR A TOTAL OF 8 WEEKS, WITH A MEAL 8 capsule 1 04/16/2022 01/20/2023 Discontinued Start: 11-14-2021 End: 01-05-2022 ergocalciferol 50,000 unit c apsule (VITAMIN D2, DRISDOL) Indications: Vitamin D deficiency Take 1 capsule by mouth two times a week. (FOR EXAMPLE ONE CAPSULE ON WEDNESDAY AND ONE ON WEDNESDAY) FOR A TOTAL OF 8 WEEKS, WITH A MEAL 8 capsule 1 11/14/2021 01/05/2022 Discontinued (Discontinued by Patient) Start: 08-07-2021 End: 10-29-2021 ergocalciferol 50,000 unit c apsule (VITAMIN D2, DRISDOL) Indications: Vitamin D deficiency Take 1 capsule by mouth two times a week. (FOR EXAMPLE ONE CAPSULE ON WEDNESDAY AND ONE ON WEDNESDAY) FOR A TOTAL OF 8 WEEKS, WITH A MEAL 16 capsule 0 08/07/2021 10/29/2021 Discontinued Start: 06-16-2021 End: 07-23-2021 ergocalciferol 50,000 unit c apsule (VITAMIN D2, DRISDOL) Indications: Vitamin D deficiency Take 1 capsule by mouth two times a week. (FOR EXAMPLE ONE CAPSULE ON WEDNESDAY AND ONE ON WEDNESDAY) FOR A TOTAL OF 6 WEEKS, WITH A MEAL 12 capsule 0 06/16/2021 07/23/2021 Discontinued (Discontinued by Patient) Comment on above: Take 1 capsule by mo ut two times a week. (FOR EXAMPLE ONE CAPSULE ON WEDNESDAY AND ONE ON WEDNESDAY) FOR A TOTAL OF 6 WEEKS, WITH A MEAL Take [address] [facility] two times a week. (FOR EXAMPLE ONE CAPSULE ON WEDNESDAY AND ONE ON WEDNESDAY) FOR A TOTAL OF 8 WEEKS, WITH A MEAL gabapentin 600 mg oral tablet (20 sources) Anti-epileptic Agent Start: 04-03-19 End: 05-26-19 take 1 tablet by mouth three times daily for anxiety gabapentin (NEURONTIN) 600 mg tablet TAKE 1 TABLET BY MOUTH 3 TIMES A DAY FOR ANXIETY 0 04/03/2022 05/26/2023 Discontinued Comment on above: TAKE 1 TABLET BY [facility] 3 TIMES A DAY FOR ANXIETY lisdexamfetamine dimesylate 50 mg oral capsule (20 sources) Central Nervous System Stimulant Start: 01-12-20 End: 05-26-19 take 1 capsule by mouth once VYVANSE 50 mg capsule Take 1 capsule by mouth every afternoon. 0 01/11/2023 05/26/2023 Discontinued Start: 10-08-2022 End: 01-20-2023 take 1 capsule by mouth once VYVANSE 40 mg capsule Vinicio e 1 capsule by mouth every afternoon. 0 10/08/2022 01/20/2023 Discontinued Comment on above: Take [address] [facility] every afternoon. misoprostol (CYTOTEC) pre-split tablet TABS 25 mcg (1 source) Start: 07-11-2019 End: 07-12-2019 misoprostol (CYTOTEC) pre-split tablet TABS 25 mcg 1 ml oxytocin 10 unt/ml injection (1 source) Oxytocic Start: 07-12-2019 End: 07-12-2019 oxytocin (PITOCIN) injection 10 Units Start: 07-12-2019 End: 07-12-2019 oxytocin (PITOCIN) injection 10 Units oxytocin (PITOCIN) 30 Units in sodium chloride 0.9 % 500 mL infusion (2 sources) Start: 07-12-2019 End: 07-12-2019 oxytocin (PITOCIN) 30 Units in sodium chloride 0.9 % 500 mL infusion Start: 07-11-2019 End: 07-12-2019 oxytocin (PITOCIN) 30 Units in sodium chloride 0.9 % 500 mL infusion PARoxetine hydrochloride 30 mg oral tablet (16 sources) Serotonin Reuptake Inhibitor Start: 03-23-2022 End: 10-22-2022 take 1 tablet by mouth once daily, then take 1 tablet by mouth once daily PARoxetine (PAXIL) 30 mg tablet Take 30 mg by mouth once daily. Take 30 mg by mouth once daily. 0 03/23/2022 10/22/2022 Discontinued Comment on above: Take 30 mg by mouth once daily. Take 30 mg by mouth once daily. MV-Min-Fe Fum-FA-DHA ( 1 PO) (15 sources) End: 09-15-2020 MV-Min-Fe Fum-FA-DHA ( 1 PO) Take by mouth 0 09/15/2020 Discontinued (LIST CLEANUP) MV-Min- Fe Fum-FA-DHA ( 1 PO) Take by mouth 0 Active Problems Active Problems Problem Classification Problem Date Documented Da te Episodic/Chronic Administrative/social admission (20 sources) Drug therapy finding; Translations: [Other specified counseling] Episodic Hypertension complicating ; childbirth and the puerperium (14 sources) Hypertension complicating , childbirth and the puerperium; Translations: [Hypertension complicating ] Onset: 9 11-24-2018 Chronic Hypertension complicating ; childbirth and the puerperium (1 source) Hypertension complicating ; Translations: [Hypertension affecting in first trimester] Onset: 9 11-24-2018 Mycoses (1 source) Mycosis; Translations: [Yeast infection] Episodic Nutritional deficiencies (20 sources) Vitamin D deficiency; Translations: [Vitamin D deficiency, unspecified] Onset: 8 04-23-2017 Chronic Other aftercare (11 sources) Patient encounter status; Translations: [Encounter for therapeutic drug level monitoring] Episodic Other aftercare (2 sources) Taking high risk medication; Translations: [Other termite inspector (current) drug therapy] Episodic Other connective tissue disease (5 sources) Synovitis; Translations: [Synovitis and tenosynovitis, unspecified] 10-22-2022 Episodic Other connective tissue disease (1 source) Pain in right foot; Translations: [Pain in right foot] 01-20-2023 Episodic Other lower respiratory disease (1 source) Wheezing; Translations: [Wheezing] 05-26-2023 Episodic Other nervous system disorders (1 source) Carpal tunnel syndrome of right wrist; Translations: [Carpal tunnel syndrome of right wrist] Other and delivery including normal (10 sources) Normal ; Translations: [Term ] Onset: 0 Resolved: 0 07-13-2019 Episodic Other skin disorders (3 sources) Mass of skin; Translations: [Localized swelling, mass and lump, unspecified] 04-28-2023 Episodic Phlebitis; thrombophlebitis and thromboembolism (1 source) Thrombophlebitis of superficial vein of left upper limb; Translations: [Superficial thrombophlebitis of left upper extremity] Pneumonia (except that caused by tuberculosis or sexually transmitted disease) (1 source) Infective pneumonia; Translations: [Pneumonia, unspecified organism] Episodic Residual codes; unclassified (1 source) Gestation period, 29 weeks; Translations: [29 weeks gestation of ] Episodic Residual codes; unclassified (2 sources) History of clinical finding in subject; Translations: [Patient's noncompliance with other medical treatment and regimen] Episodic Residual codes; unclassified (1 source) Gestation period, 38 weeks; Translations: [38 weeks gestation of ] Rheumatoid arthritis and related disease (20 sources) Seropositive rheumatoid arthritis; Translations: [Rheumatoid arthritis with rheumatoid factor, unspecified] Onset: 8 12-30-2017 Chronic Substance-related disorders (20 sources) Nicotine dependence; Translations: [History of intravenous drug abuse] Onset: 8 12-19-2018 Chronic Substance-related disorders (12 sources) Other psychoactive substance abuse, in remission; Translations: [History of intravenous drug abuse] Onset: 9 11-24-2018 Systemic lupus erythematosus and connective tissue disorders (1 source) Dermatomyositis; Translations: [Dermatopolymyositis, unspecified, organ involvement unspecified] Chronic Unclassified (2 sources) Patient encounter status; Translations: [Screening for cystic fibrosis] Unclassified (1 source) Cancer cervix screening status; Translations: [Screening for cervical cancer] Unclassified (1 source) History of intravenous drug abuse Onset: 9 11-24-2018 Unclassified (1 source) CONTACT W/AND (SUSP) EXPOS COVID-19; Translations: [CONTACT W/AND (SUSP) EXPOS COVID-19] Onset: 2 Unclassified (2 sources) COUGH, UNSPECIFIED; Translations: [COUGH, UNSPECIFIED] Onset: 2 Past or Other Problems Problem Classification Problem Date Documented Date Episodic/Chronic Abdominal pain (1 source) Right upper quadrant pain Episodic Contraceptive and procreative management (5 sources) Encounter for sterilization; Translations: [ENCOUNTER FOR STERILIZATION] Onset: 09-05-2021 Episodic E Codes: Struck by; against (1 source) Striking against or struck by other objects, initial encounter; Translations: [STRIKING AGNST/STRUCK OTH OBJ INIT] Onset: 10-08-2021 Episodic Hemorrhage during ; abruptio placenta; placenta previa (15 sources) Threatened miscarriage; Translations: [Threatened ] Onset: 12-19-2018 12-19-2018 Episodic Immunizations and screening for infectious disease (20 sources) Contact with or exposure to other viral diseases; Translations: [Anti-cyclic citrullinated peptide antibody positive] Onset: 12-30-2017 12-30-2017 Episodic Other aftercare (1 source) Other termite inspector (current) drug therapy; Translations: [OTH EXTRUDER OPERATOR VERTICAL CURRENT DRUG THERAPY] Onset: 10-08-2021 Episodic Other connective tissue disease (3 sources) Pain in left foot; Translations: [Pain in left foot] Onset: 10-07-2021 Episodic Other connective tissue disease (2 sources) Pain in left foot; Translations: [PAIN IN LEFT FOOT] Onset: 10-08-2021 Episodic Other non-traumatic joint disorders (14 sources) Shoulder pain; Translations: [Pain in left shoulder] Onset: 11-22-2016 12-19-2018 Episodic Other non-traumatic joint disorders (3 sources) Pain in left knee; Translations: [PAIN IN LEFT KNEE] Onset: 11-03-2021 Episodic Other nutritional; endocrine; and metabolic disorders (12 sources) Autoantibody level - finding; Translations: [Cyclic citrullinated peptide (CCP) antibody positive] Onset: 12-30-2017 12-19-2018 Episodic Other screening for suspected conditions (not mental disorders or infectious disease) (2 sources) Other specified abnormal findings of blood chemistry; Translations: [Anti-cyclic citrullinated peptide antibody positive] Onset: 12-30-2017 12-19-2018 Episodic Other upper respiratory infections (3 sources) Nasopharyngitis; Translations: [Acute upper respiratory infection, unspecified] Onset: 08-18-2021 Episodic Superficial injury; contusion (1 source) Contusion of left foot, initial encounter; Translations: [CONTUSION LEFT FOOT INITIAL ENC] Onset: 10-08-2021 Episodic Unclassified (1 source) COUGH, UNSPECIFIED; Translations: [COUGH, UNSPECIFIED] Onset: 08-15-2021 Results Test Name Value Interpretation Reference Range Facility [facility] 06[facility]28[facility]2023 [facility] Text [facility] ([place]) DWIGHT LUDWIGANDA Juan ([id number]) 1985 F Date Time Provider Department 06/25/23 FARIBA HILL During your visit today, we recorded the following information about you: Sergio OrtizYessy 06/25/2023 10:16 AM Signed Called and LMOM for patient to call the office back so we can get her rescheduled from her appointment and Infusion on 06/23/2023 that she cancel. Please warm transfer to [facility] Allergies As of Date: 06/25/2023 Noted Allergy Reaction AVSOLA (INFLIXIMAB-AXXQ) 10/22/2022 10 - Anaphylaxis Comments: Adverse reaction, chest tightness, shortness of breath and trouble breathing Date Reviewed: 06/07/2023 Reviewed by: Fariba Hill, BUSINESS OPERATIONS MANAGER.BOILERMAKING SUPERVISOR - Fully Assessed Prescriptions as of 06/25/2023 - buprenorphine HCl/naloxone HCl (BUPRENORPHINE-NALOXO NE BUCCAL) Buprenorphine-Naloxon e Active 1 FILM SL Q24H April 13, 2023 12:00am - clobetasol (TEMOVATE) 0.05 % cream APPLY THIN LAYER TO ELBOW REGION TWICE DAILY FOR 14 DAYS - nabumetone (RELAFEN) 750 mg tablet Take by mouth. - venlafaxine ER (EFFEXOR XR) 150 mg 24 hr capsule TAKE 1 CAPSULE BY MOUTH DAILY. DO NOT CRUSH OR CHEW - albuterol HFA (PROVENTIL HFA, VENTOLIN HFA) 90 mcg/actuation inhaler Inhale 2 Puffs as instructed every 4 hours as needed for wheezing/shortness of breath. - cetirizine (ZYRTEC) 10 mg tablet Take 1 tablet by mouth once daily. - ondansetron orally disintegrating (ZOFRAN ODT) 4 mg disintegrating tablet DISSOLVE 1 TABLET BY MOUTH EVERY 8 HOURS NEEDED FOR NAUSEA - leflunomide (ARAVA) 10 mg tablet Take 1 tablet by mouth once daily. - triamcinolone acetonide (KENALOG) 0.1 % ointment APPLY TWICE A DAY TO THE AFFECTED AREA OF THE ELBOW - Cholecalciferol, Vitamin D3, (VITAMIN D) 25 mcg (1,000 unit) cap Take 2 capsules by mouth once daily. Problem List As Of Date 06/25/2023 Noted Resolved Vitamin D deficiency [E55.9] 04/23/2017 Cyclic citrullinated peptide (CCP) antibody pos*12/30/2017 Rheumatoid factor positive [R76.8] 12/30/2017 Seropositive rheumatoid arthritis (HCC) [M05.9] 12/30/2017 Smokes and motivated to quit [F17.200] 12/30/2017 Encounter Status:Closed by YESSY GALARZA on 06/25/23 [facility] 05-28-2023 SUNITA Telephone ([place]) ANY LUDWIG ([id number]) 1985 F Date Time Provider Department 05/28/23 FARIBA HILL During your visit today, we recorded the following information about you: Korin Puga RN 05/28/2023 3:26 PM Signed Call placed to patient to inquire how she is feeling since visit to [facility] for wheezing. She states she is feeling better and has had no further issues. James Hill CNP notified. Allergies As of Date: 05/28/2023 Noted Allergy Reaction AVSOLA (INFLIXIMAB-AXXQ) 10/22/2022 10 - Anaphylaxis Comments: Adverse reaction, chest tightness, shortness of breath and trouble breathing Date Reviewed: 05/26/2023 Reviewed by: Lay Santiago MA - Fully Assessed Prescriptions as of 05/28/2023 - buprenorphine HCl/naloxone HCl (BUPRENORPHINE-NALOXO NE BUCCAL) Buprenorphine-Naloxon e Active 1 FILM SL Q24H April 13, 2023 12:00am - clobetasol (TEMOVATE) 0.05 % cream APPLY THIN LAYER TO ELBOW REGION TWICE DAILY FOR 14 DAYS - nabumetone (RELAFEN) 750 mg tablet Take by mouth. - venlafaxine ER (EFFEXOR XR) 150 mg 24 hr capsule TAKE 1 CAPSULE BY MOUTH DAILY. DO NOT CRUSH OR CHEW - albuterol HFA (PROVENTIL HFA, VENTOLIN HFA) 90 mcg/actuation inhaler Inhale 2 Puffs as instructed every 4 hours as needed for wheezing/shortness of breath. - predniSONE (DELTASONE) 20 mg tablet Take 2 tablets by mouth once daily for 5 days. - cetirizine (ZYRTEC) 10 mg tablet Take 1 tablet by mouth once daily. - ondansetron orally disintegrating (ZOFRAN ODT) 4 mg disintegrating tablet DISSOLVE 1 TABLET BY MOUTH EVERY 8 HOURS NEEDED FOR NAUSEA - leflunomide (ARAVA) 10 mg tablet Take 1 tablet by mouth once daily. - triamcinolone acetonide (KENALOG) 0.1 % ointment APPLY TWICE A DAY TO THE AFFECTED AREA OF THE ELBOW - Cholecalciferol, Vitamin D3, (VITAMIN D) 25 mcg (1,000 unit) cap Take 2 capsules by mouth once daily. Problem List As Of Date 05/28/2023 Noted Resolved Vitamin D deficiency [E55.9] 04/23/2017 Cyclic citrullinated peptide (CCP) antibody pos*12/30/2017 Rheumatoid factor positive [R76.8] 12/30/2017 Seropositive rheumatoid arthritis (HCC) [M05.9] 12/30/2017 Smokes and motivated to quit [F17.200] 12/30/2017 Encounter Status:Closed by KORIN PUGA on 05/28/23 [place] [address](OH)D3 SerPl-mCncon 2023 25-hydroxyvitamin D3 [Mass/Vol] 29.2 ng/mL Low 31.0-80.0 [facility] Comment on above: Order Comment: Speci men Type: BLOOD SPECIMENOrdering Facility: [facility] Address: [address] [place] [address] Performed By: #### 1 989-3 ####[facility] LABIA [id number] [place] [address] [place] ALT SerPl-cCncon 05-26-2023 ALT [Catalytic activity/Vol] 17 U/L Normal 7-38 [facility] Comment on above: Order Comment: Speci men Type: BLOOD SPECIMENOrdering Facility: [facility] Address: [address] [place] [address] Performed By: #### 1 988-5, 1919-09, CRE, 1741-07 ####[facility] LABCLIA [id number] [place] [address] [place] ALT/SGPTon 05-26-2023 ALT [Catalytic activity/Vol] 17 U/L 7 - 38 U/L [facility] AST SerPl-cCncon 05-26-2023 AST [Catalytic activity/Vol] 21 U/L Normal 13-35 [facility] Comment on above: Order Comment: Speci men Type: BLOOD SPECIMENOrdering Facility: [facility] Address: [address] [place] [address] Performed By: #### 1 988-5, 1919-09, CRET1, 1741-07 ####[facility] LABIA [id number] [place] [address] [place] AST/SGOT BLDon 05-26-2023 AST [Catalytic activity/Vol] 21 U/L 13 - 35 U/L [facility] C-REACTIVE PROTEIN (CRP)on 0 05-26-2023 CRP [Mass/Vol] <0.9 mg/dL [facility] CBC W Auto Differential pane l (Bld)on 05-26-2023 Basophils (Bld) [#/Vol] 0.04 10*3/uL <0.11 k/uL [facility] Basophils/100 WBC (Bld) 0.7 % [facility] Differential cell count method Nom (Bld) Auto [facility] Eosinophils (Bld) [#/Vol] 0.43 10*3/uL <0.46 k/uL [facility] Eosinophils/100 WBC (Bld) 7.3 % [facility] Erythrocyte distribution width (RBC) [Ratio] 14.0 % 11.5 - 15.0 % [facility] Hematocrit (Bld) [Volume fraction] 34.2 % Low 36.0 - 46.0 % [facility] Hemoglobin (Bld) [Mass/Vol] 11.2 g/dL Low 11.5 - 15.5 g/dL [facility] Immature granulocytes (Bld) [#/Vol] <0.10 k/uL [facility] Immature granulocytes/100 WBC (Bld) 0.2 % [facility] Lymphocytes (Bld) [#/Vol] 3.83 10*3/uL 1.00 - 4.00 k/uL [facility] Lymphocytes/100 WBC (Bld) 65.2 % [facility] MCH (RBC) [Entitic mass] 27.3 pg 26.0 - 34.0 pg [facility] MCHC (RBC) [Mass/Vol] 32.7 g/dL 30.5 - 36.0 g/dL [facility] MCV (RBC) [Entitic vol] 83.4 fL 80.0 - 100.0 fL [facility] Monocytes (Bld) [#/Vol] 0.36 10*3/uL <0.87 k/uL [facility] Monocytes/100 WBC (Bld) 6.1 % [facility] Neutrophils (Bld) [#/Vol] 1.20 10*3/uL Low 1.45 - 7.50 k/uL [facility] Neutrophils/100 WBC (Bld) 20.5 % [facility] Nucleated RBC (Bld) [#/Vol] <0.01 k/uL [facility] Nucleated RBC/100 WBC (Bld) [Ratio] 0.0 /100 WBC [facility] Platelet mean volume (Bld) [Entitic vol] 11.3 fL 9.0 - 12.7 fL [facility] Platelets (Bld) [#/Vol] 172 10*3/uL 150 - 400 k/uL [facility] RBC (Bld) [#/Vol] 4.10 10*6/uL 3.90 - 5.2 0 m/uL [facility] WBC (Bld) [#/Vol] 5.87 10*3/uL 3.70 - 11. 00 k/uL [facility] Basophils (Bld) [#/Vol] 0.04 10*3/uL Normal <0.11 [facility] Comment on above: Order Comment: Speci men Type: BLOOD SPECIMENOrdering Facility: [facility] Address: [address] [place] [address] Performed By: #### 4 537-7, 72493-5 ####[facility] LABCLIA [id number] [place] [address] [place] Basophils/100 WBC (Bld) 0.7 % Normal [facility] Comment on above: Order Comment: Speci men Type: BLOOD SPECIMENOrdering Facility: [facility] Address: [address] [place] [address] Performed By: #### 4 537-7, 51123-0 ####[facility] LABCLIA [id number] [place] [address] [place] Differential cell count method Nom (Bld) Auto Normal [facility] Comment on above: Order Comment: Speci men Type: BLOOD SPECIMENOrdering Facility: [facility] Address: [address] [place] [address] Performed By: #### 4 537-7, 37577-2 ####[facility] LABCLIA [id number] [place] [address] [place] Eosinophils (Bld) [#/Vol] 0.43 10*3/uL Normal <0.46 [facility] Comment on above: Order Comment: Speci men Type: BLOOD SPECIMENOrdering Facility: [facility] Address: [address] [place] [address] Performed By: #### 4 537-7, 91251-8 ####[facility] LABCLIA [id number] [place] [address] [place] Eosinophils/100 WBC (Bld) 7.3 % Normal [facility] Comment on above: Order Comment: Speci men Type: BLOOD SPECIMENOrdering Facility: [facility] Address: [address] [place] [address] Performed By: #### 4 537-7, 68738-6 ####[facility] LABCLIA [id number] [place] [address] [place] Erythrocyte distribution width (RBC) [Ratio] 14.0 % Normal 11.5-15.0 [facility] Comment on above: Order Comment: Speci men Type: BLOOD SPECIMENOrdering Facility: [facility] Address: [address] [place] [address] Performed By: #### 4 537-7, 10185-7 ####[facility] LABCLIA [id number] [place] [address] [place] Hematocrit (Bld) [Volume fraction] 34.2 % Low 36.0-46.0 [facility] Comment on above: Order Comment: Speci men Type: BLOOD SPECIMENOrdering Facility: [facility] Address: [address] [place] [address] Performed By: #### 4 537-7, 06805-0 ####[facility] LABCLIA [id number] [place] [address] [place] Hemoglobin (Bld) [Mass/Vol] 11.2 g/dL Low 11.5-15.5 [facility] Comment on above: Order Comment: Speci men Type: BLOOD SPECIMENOrdering Facility: [facility] Address: [address] [place] [address] Performed By: #### 4 537-7, 61523-2 ####[facility] LABCLIA [id number] [place] [address] [place] Immature granulocytes (Bld) [#/Vol] 10*3/uL Normal <0.10 [facility] Comment on above: Order Comment: Speci men Type: BLOOD SPECIMENOrdering Facility: [facility] Address: [address] [place] [address] Performed By: #### 4 537-7, 02180-9 ####[facility] LABCLIA [id number] [place] [address] [place] Immature granulocytes/100 WBC (Bld) 0.2 % Normal [facility] Comment on above: Order Comment: Speci men Type: BLOOD SPECIMENOrdering Facility: [facility] Address: [address] [place] [address] Performed By: #### 4 537-7, 76071-4 ####[facility] LABCLIA [id number] [place] [address] [place] Lymphocytes (Bld) [#/Vol] 3.83 10*3/uL Normal 1.00-4.00 [facility] Comment on above: Order Comment: Speci men Type: BLOOD SPECIMENOrdering Facility: [facility] Address: [address] [place] [address] Performed By: #### 4 537-7, 67621-6 ####[facility] LABCLIA [id number] [place] [address] [place] Lymphocytes/100 WBC (Bld) 65.2 % Normal [facility] Comment on above: Order Comment: Speci men Type: BLOOD SPECIMENOrdering Facility: [facility] Address: [address] [place] [address] Performed By: #### 4 537-7, 96300-5 ####[facility] LABCLIA [id number] [place] [address] [place] MCH (RBC) [Entitic mass] 27.3 pg Normal 26.0-34.0 [facility] Comment on above: Order Comment: Speci men Type: BLOOD SPECIMENOrdering Facility: [facility] Address: [address] [place] [address] Performed By: #### 4 537-7, 60624-4 ####[facility] LABCLIA [id number] [place] [address] [place] MCHC (RBC) [Mass/Vol] 32.7 g/dL Normal 30.5-36.0 [facility] Comment on above: Order Comment: Speci men Type: BLOOD SPECIMENOrdering Facility: [facility] Address: [address] [place] [address] Performed By: #### 4 537-7, 67135-1 ####[facility] LABCLIA [id number] [place] [address] [place] MCV (RBC) [Entitic vol] 83.4 fL Normal 80.0-100.0 [facility] Comment on above: Order Comment: Speci men Type: BLOOD SPECIMENOrdering Facility: [facility] Address: [address] [place] [address] Performed By: #### 4 537-7, 50024-5 ####[facility] LABCLIA [id number] [place] [address] [place] Monocytes (Bld) [#/Vol] 0.36 10*3/uL Normal <0.87 [facility] Comment on above: Order Comment: Speci men Type: BLOOD SPECIMENOrdering Facility: [facility] Address: [address] [place] [address] Performed By: #### 4 537-7, 32620-1 ####[facility] LABCLIA [id number] [place] [address] [place] Monocytes/100 WBC (Bld) 6.1 % Normal [facility] Comment on above: Order Comment: Speci men Type: BLOOD SPECIMENOrdering Facility: [facility] Address: [address] [place] [address] Performed By: #### 4 537-7, 15058-8 ####[facility] LABCLIA [id number] [place] [address] [place] Neutrophils (Bld) [#/Vol] 1.20 10*3/uL Low 1.45-7.50 [facility] Comment on above: Order Comment: Speci men Type: BLOOD SPECIMENOrdering Facility: [facility] Address: [address] [place] [address] Performed By: #### 4 537-7, 21815-6 ####[facility] LABCLIA [id number] [place] [address] [place] Neutrophils/100 WBC (Bld) 20.5 % Normal [facility] Comment on above: Order Comment: Speci men Type: BLOOD SPECIMENOrdering Facility: [facility] Address: [address] [place] [address] Performed By: #### 4 537-7, 01251-7 ####[facility] LABCLIA [id number] [place] [address] [place] Nucleated RBC (Bld) [#/Vol] 10*3/uL Normal <0.01 [facility] Comment on above: Order Comment: Speci men Type: BLOOD SPECIMENOrdering Facility: [facility] Address: [address] [place] [address] Performed By: #### 4 537-7, 18527-4 ####[facility] LABCLIA [id number] [place] [address] [place] Nucleated RBC/100 WBC (Bld) [Ratio] 0.0 /100 WBC Normal [facility] Comment on above: Order Comment: Speci men Type: BLOOD SPECIMENOrdering Facility: [facility] Address: [address] [place] [address] Performed By: #### 4 537-7, 27252-7 ####[facility] LABCLIA [id number] [address] [address] [place] Platelet mean volume (Bld) [Entitic vol] 11.3 fL Normal 9.0-12.7 [facility] Comment on above: Order Comment: Speci men Type: BLOOD SPECIMENOrdering Facility: [facility] Address: [address] [place] [address] Performed By: #### 4 537-7, 23341-4 ####[facility] LABIA [id number] [place] [address] [place] Platelets (Bld) [#/Vol] 172 10*3/uL Normal 150-400 [facility] Comment on above: Order Comment: Speci men Type: BLOOD SPECIMENOrdering Facility: [facility] Address: [address] [place] [address] Performed By: #### 4 537-7, 04056-0 ####[facility] LABIA [id number] [place] [address] [place] RBC (Bld) [#/Vol] 4.10 10*6/uL Normal 3.90-5.20 [facility] Comment on above: Order Comment: Speci men Type: BLOOD SPECIMENOrdering Facility: [facility] Address: [address] [place] [address] Performed By: #### 4 537-7, 59222-4 ####[facility] LABIA [id number] [place] [id number] [place] WBC (Bld) [#/Vol] 5.87 10*3/uL Normal 3.70-11.00 [facility] Comment on above: Order Comment: Speci men Type: BLOOD SPECIMENOrdering Facility: [facility] Address: [address] [place] [address] Performed By: #### 4 537-7, 94585-2 ####[facility] LABCLIA [id number] [address] [address] [place] CNOVon 05-26-2023 CNOV Office Visit (EXPLOR ) ANY LUDWIG ([id number]) 1985 F Date Time Provider Department 05/26/23 1:45 PM SILVIA COOPER EXPLOR During your visit today, we recorded the following information about you: Temperature Pulse Blood pressure 97.5 degrees 65/minute 107/66 Silvia Cooper, BUSINESS OPERATIONS MANAGER.BOILERMAKING SUPERVISOR 05/26/2023 2:15 PM Signed This note was created using NoteWriter. Subjective Any Ludwig is a 38 year old female. This 38 year old female present sot [facility] with expiratory wheeze, was in infusions for RA and nurses suggested to present to [facility]. Pt has done previously, does not have albuterol, typically controls. Pt denies allergic reactions, seasonal allergies, reactive airway. Pt denies ill feelings, fever, feeling SOB or having CP. Pt is in NAD. The history is provided by the patient. Wheezing Associated symptoms include coughing. Pertinent negatives include no abdominal pain, chest pain, chills, diarrhea, ear pain, fever, headaches, neck pain, rhinorrhea, shortness of breath, sore throat or vomiting. Review of Systems Constitutional: Negative for activity change, appetite change, chills, diaphoresis, fatigue and fever. HENT: Negative for congestion, ear discharge, ear pain, postnasal drip, rhinorrhea, sinus pressure, sinus pain and sore throat. Respiratory: Positive for cough, chest tightness and wheezing. Negative for shortness of breath and stridor. Cardiovascular: Negative for chest pain. Gastrointestinal: Negative for abdominal pain, diarrhea, nausea and vomiting. Genitourinary: Negative for decreased urine volume. Musculoskeletal: Negative for arthralgias, myalgias, neck pain and neck stiffness. Skin: Negative. Allergic/Immunologic: Negative for environmental allergies and immunocompromised state. Neurological: Negative for dizziness, weakness, light-headedness, numbness and headaches. Hematological: Negative. Psychiatric/Behaviora l: Negative. Objective BP 107/66 Pulse 65 Temp 36.4 ?C (97.5 ?F) (Temporal) LMP 01/13/2023 (Approximate) SpO2 98% No past medical history on file. Current Outpatient Medications on File Prior to Visit Medication Sig ondansetron orally disintegrating (ZOFRAN ODT) 4 mg disintegrating tablet DISSOLVE 1 TABLET BY MOUTH EVERY 8 HOURS NEEDED FOR NAUSEA leflunomide (ARAVA) 10 mg tablet Take 1 tablet by mouth once daily. triamcinolone acetonide (KENALOG) 0.1 % ointment APPLY TWICE A DAY TO THE AFFECTED AREA OF THE ELBOW Cholecalciferol, Vitamin D3, (VITAMIN D) 25 mcg (1,000 unit) cap Take 2 capsules by mouth once daily. No current facility-administered medications on file prior to visit. Physical Exam Vitals and nursing note reviewed. Constitutional: General: She is not in acute distress. Appearance: Normal appearance. She is not ill-appearing, toxic-appearing or diaphoretic. HENT: Head: Normocephalic and atraumatic. Right Ear: Tympanic membrane normal. Left Ear: Tympanic membrane normal. Nose: Nose normal. Mouth/Throat: Mouth: Mucous membranes are moist. Eyes: Extraocular Movements: Extraocular movements intact. Pupils: Pupils are equal, round, and reactive to light. Cardiovascular: Rate and Rhythm: Normal rate and regular rhythm. Heart sounds: Normal heart sounds. Pulmonary: Effort: Pulmonary effort is normal. No tachypnea, respiratory distress or retractions. Breath sounds: No stridor, decreased air movement or transmitted upper airway sounds. Examination of the right-upper field reveals wheezing. Examination of the left-upper field reveals wheezing. Examination of the right-lower field reveals wheezing. Examination of the left-lower field reveals wheezing. Wheezing present. No decreased breath sounds, rhonchi or rales. Musculoskeletal: General: Normal range of motion. Cervical back: Normal range of motion and neck supple. No rigidity or tenderness. Lymphadenopathy: Cervical: No cervical adenopathy. Skin: General: Skin is warm. Neurological: Mental Status: She is alert and oriented to person, place, and time. Psychiatric: Mood and Affect: Mood normal. Behavior: Behavior normal. Following Albuterol Neb, POX improved from 97 to 99%, improved exchange, AHR remained 56-60 BPM, Exp wheeze resolved, minimal insp wheeze noted. Pt reports improvement. ASSESSMENT/PLAN: 1. Wheezing - ICD9: 786.07, ICD10: R06.2 Albuterol as needed- inhaler sent If needed, only if needed, Prednisone 40 mg once daily x 5 days with food Consider Zyrtec daily until day or longer Follow up as needed - ALBUTEROL SULFATE 2.5 MG/3 ML (0.083 %) SOLUTION FOR NEBULIZATION - ALBUTEROL SULFATE HFA 90 MCG/ACTUATION AEROSOL INHALER - PREDNISONE 20 MG TABLET BRIE Zambrano Margaret H, APRN.CNP 05/26/2023 2:00 PM Signed Albuterol as needed- inhaler sent If needed, only if neede (more content not included)... Normal [facility] Office Visit (MARK ) ANY LUDWIG ([id number]) 1985 F Date Time Provider Department 05/26/23 1:00 PM FARIBA HILL During your visit today, we recorded the following information about you: Fariba Hill APRN.CNP 06/07/2023 8:14 AM Signed FOLLOW UP VISIT-in person PCP: Tino Blake MD [address] [place] [address] Ms. Ludwig is a 38 year old patient here today for follow up of RA Interim History: Swelling - right wrist swelling Started yesterday New job working more Thinking the over activity caused the swelling elbow - nodule Am stiffness - 1 hours Worse with weather changes Not taking anything for pain No infections No illness Cut down on smoking Wheezing more recently Using inhaler more since working -did not use today Has appt with pcp Thinks she has asthma? vit d 1999 international unit(s) daily Actemra every 4 weeks Arava 10mg daily Had tubal ligation REVIEW OF SYSTEMS: Review of Systems CONSTITUTION: Negative for: Weight loss or gain, Fever. Chills, Night sweats HEENT: Negative for: Nosebleeds, Mouth sores and Dry mouth RESPIRATORY: Negative for: Cough, Shortness of breath, Pain with breathing and Coughing up blood GASTROINTESTINAL: Negative for: Melena, Diarrhea, Abdominal pain, Heartburn, MUSCULOSKELETAL: Positive for: Arthralgias, Myalgias, Joint swelling and Morning Joint Stiffness Negative for: Muscle weakness NEUROLOGICAL: Positive for: Headaches and Numbness (numbness in right hand where she has inflammation, none on exam ) Negative for: Memory loss SKIN: Negative for: Rashes, Sun sensitive rashes, Skin color changes, Hair loss, Nail changesNegative for: Hair loss and Nail changes EYES: Negative for: Eye pain, Eye redness and Eye dryness CARDIOVASCULAR: Negative for: Chest pain, Leg swelling, Arrhythmia, Presyncope GENITOURINARY: Negative for: Dysuria, Hematuria, Ulceration HEMATOLOGIC/LYMPHATIC : Past Medical Hx, Past Surgical Hx. Social Hx and Family Hx: unchanged ACTIVE PROBLEM LIST Cyclic Citrullinated Peptide (Ccp) Antibody Positive - 12/30/2017 Rheumatoid Factor Positive - 12/30/2017 Seropositive Rheumatoid Arthritis (Hcc) - 12/30/2017 Smokes and Motivated to Quit - 12/30/2017 Comment: Counseled on cessation Vitamin D Deficiency - 04/23/2017 PHYSICAL EXAMINATION: LMP 01/13/2023 (Approximate) GENERAL: alert and appropriate, in no distress, well-hydrated, well nourished and happy, smiling, interactive SKIN: no rash noted HEAD: normocephalic, no abnormality or lesion noted EYES: no injection and visual acuity is grossly normal EARS: hearing grossly normal No apparent nasal bridge collapse, no cartilage swelling, no parotid gland swelling. NOSE: external nose normal without rhinorrhea OROPHARYNX: moist mucus membranes NECK: full ROM, no cervical LNs noted RESPIRATORY: breathing non-labored CHEST: wheezes bilateral ABDOMEN: soft and non-tender MUSCULOSKELETAL : nodules on b/l wrist unchanged no apparent joint effusion or synovitis Swollen joints-right wrist elbow- nodule - unchanged Tender joints - right wrist No tenderness with percussion over long bones-femur/tibia b/l EXTREMITIES: FROM NEUROLOGIC: no obvious deficit Prior Test results discussed with patient. IMPRESSION/DIAGNOSIS: M05.9 Seropositive rheumatoid arthritis (HCC) (primary encounter diagnosis) M65.9 Synovitis E55.9 Vitamin D deficiency R22.9 Localized superficial swelling, mass, or lump Z71.2 Encounter to discuss test results Z71.89 Encounter for medication review and counseling Z51.81 Medication monitoring encounter Rheumatoid Arthritis Sero-positive, RF, CCP Non-erosive Per Dr. Pandya last note At last visit the patient's Rheumatoid Arthritis appears to be active and worse since last visit and since being off DMARDs. She has not followed up since 2019. She has been off RA medications for 1.5 years. Stopped Arava and xejanz in 2019. She reports only took Xeljanz for the 30 day free supply. She did not follow up on the [employer] program, was unclear when asked. With patient's drug addition history, would have to defer from self injectables and needles at home. Due to her problems with transportation and lives far, she is unable to receive IV infusions. She is planning to follow up with local cryogenics engineer closer to home. Until she has her apt, we offered assistance with her RA care and follow up apt. Advised we can only provide 1 month supply and will need f/u apt for recheck and refill for her safety. We also reviewed importance of follow up with her dentist to evaluate for painful tooth and exclude infection. Dental infections can be risk for Rheumatoid Arthritis flares as well as concerns for more serious infections. Patient has had multiple unfortunate soci (more content not included)... Normal [facility] CREATININE [facility] 05-26-2023 Creatinine [Mass/Vol] 0.52 mg/dL Low 0.58 - 0.96 mg/dL [facility] Estimated Glomerular Filtration Rate 121 mL/min/1.73m >=60 mL/min/1.73m [facility] Creatinine [Mass/Vol] 0.52 mg/dL Low 0.58-0.96 [facility] Comment on above: Order Comment: Speci men Type: BLOOD SPECIMENOrdering Facility: [facility] Address: [facility] [place] [place] [address] Performed By: #### 1 821-5, 1919-09, CRET1, 1741-07 ####[facility] LABIA [id number] [place] [id number] [place] Creatinine and Glomerular filtration rate.predicted panel (S/P/Bld) 121 mL/min/1.73m??? Normal >=60 [facility] Comment on above: Order Comment: Speci men Type: BLOOD SPECIMENOrdering Facility: [facility] Address: [address] [place] [address] Result Comment: Polly mated Glomerular Filtration Rate (eGFR) is calculated using the 2020 CKD-EPI creatinine equation. This equation utilizes serum creatinine, sex, and age as parameters. The creatinine assay has traceable calibration to isotope dilution-mass spectrometry. Refer to KDIGO guidelines for clinical interpretation. In patients with unstable renal function, e.g. those with acute kidney injury, the eGFR may not accurately reflect actual GFR. Performed By: #### 1 988-5, 1919-09, CRET1, 1741-07 ####[facility] [id number] [address] [address] [place] CRP SerPl-mCncon 05-26-2023 CRP [Mass/Vol] mg/L Normal <0.9 [facility] Comment on above: Order Comment: Shaneka montemayor Type: BLOOD SPECIMENOrdering Facility: [facility] Address: [address] [place] [address] Performed By: #### 1 988-5, 1919-09, CREDonnell, 1741-07 ####[facility] [id number] [address] [address] [place] ESR Westergren method (Bld) [Velocity]on 05-26-2023 ESR (Bld) [Velocity] 5 mm/h 0 - 20 mm/hr [facility] ESR (Bld) [Velocity] 5 mm/h Normal 0-20 [facility] Comment on above: Order Comment: Speci men Type: BLOOD SPECIMENOrdering Facility: [facility] Address: [address] [place] [id number] Performed By: #### 4 537-7, 68637-0 ####[facility] LABCLIA [id number] [facility] [id number] [id number] [place] VITAMIN D 25 HYDROXYon 05-25 25-hydroxyvitamin D3 [Mass/Vol] 29.2 ng/mL Low 31.0 - 80.0 ng/mL [facility] CNPNon 05-14-2023 CNPN Telephone (RULTTB) ANY LUDWIG ([id number]) 1985 F Date Time Provider Department 05/14/23 SJ MEJIA (ANG) RULTTB During your visit today, we recorded the following information about you: Sj Mejia PCNA 05/14/2023 2:38 PM Signed Visit Type: ANY MSK Visit Length: 45, 50 OR 60 MINUTES Order Name/Protocol: US EXTREMITY MASS/FLUID COLLECTION LT; EVAL LT POSTERIOR ELBOW FOR RA NODULES Preferred Provider: N/A Comment: Please ask the patient what the size of their masses are and how many then notate the response in the Appointment Note. Location: ANY FACILITY Slot held: N/A Hawa Casper 05/14/2023 2:42 PM Signed Called patient on May 14, 2023 at 2:42 PM to schedule their MSK US exam. No answer, left VM, 1st attempt. Hawa Casper 05/17/2023 8:28 AM Signed Called patient on May 17, 2023 at 8:28 AM to schedule their MSK US exam. No answer, left VM, 2nd attempt. Hawa Casper 05/18/2023 8:55 AM Signed Called patient on May 18, 2023 at 8:55 AM to schedule their MSK US exam. No answer, left VM, 3rd attempt. Allergies As of Date: 05/14/2023 Noted Allergy Reaction AVSOLA (INFLIXIMAB-AXXQ) 10/22/2022 10 - Anaphylaxis Comments: Adverse reaction, chest tightness, shortness of breath and trouble breathing Date Reviewed: 04/28/2023 Reviewed by: Yessy Gonzalez RN - Fully Assessed Reason for Visit: Appointment [186] Prescriptions as of 05/18/2023 - ondansetron orally disintegrating (ZOFRAN ODT) 4 mg disintegrating tablet DISSOLVE 1 TABLET BY MOUTH EVERY 8 HOURS NEEDED FOR NAUSEA - VYVANSE 50 mg capsule Take 1 capsule by mouth every afternoon. - leflunomide (ARAVA) 10 mg tablet Take 1 tablet by mouth once daily. - albuterol HFA (PROVENTIL HFA, VENTOLIN HFA) 90 mcg/actuation inhaler INHALE 1 PUFF EVERY 6 HOURS NEEDED FOR SHORTNESS OF BREATH OR WHEEZING - venlafaxine ER (EFFEXOR XR) 37.5 mg 24 hr capsule Take 1 capsule by mouth every afternoon. - triamcinolone acetonide (KENALOG) 0.1 % ointment APPLY TWICE A DAY TO THE AFFECTED AREA OF THE ELBOW - gabapentin (NEURONTIN) 600 mg tablet TAKE 1 TABLET BY MOUTH 3 TIMES A DAY FOR ANXIETY - Cholecalciferol, Vitamin D3, (VITAMIN D) 25 mcg (1,000 unit) cap Take 2 capsules by mouth once daily. - buprenorphine-naloxon e (SUBOXONE) 8-2 mg film Dissolve under the tongue once daily. Prescribed by outside physician Problem List As Of Date 05/14/2023 Noted Resolved Vitamin D deficiency [E55.9] 04/23/2017 Cyclic citrullinated peptide (CCP) antibody pos*12/30/2017 Rheumatoid factor positive [R76.8] 12/30/2017 Seropositive rheumatoid arthritis (HCC) [M05.9] 12/30/2017 Smokes and motivated to quit [F17.200] 12/30/2017 Encounter Status:Closed [facility] ANY [facility] ([id number]) 1985 F Date Time Provider Department 05/14/23 FARIBA HILL During your visit today, we recorded the following information about you: Elder Clayton 05/14/2023 2:31 PM Signed Patient has been identified by name and Date of : Yes Patient: Any Ludwig Date of : 1985 Provider for this encounter : Fariba Hill APRN.CNP Reason for call: US MARICRUZ Martinez Was an appointment scheduled: No Reason for requesting visit (RFV/signs and symptoms/diagnosis) : Localized superficial swelling, mass, or lump [R22.9] Seropositive rheumatoid arthritis (HCC) [M05.9] Person calling: self Return call to: self Call patient at: at home [phone] (home) [phone] (cell) Payor: VB Rags MEDICAID / Plan: [employer] BCBS MEDICAID [place] / Product Type: Medicaid / DIANA Richey Allergies As of Date: 05/14/2023 Noted Allergy Reaction DANNISOLA (INFLIXIMAB-AXXQ) 10/22/2022 10 - Anaphylaxis Comments: Adverse reaction, chest tightness, shortness of breath and trouble breathing Date Reviewed: 04/28/2023 Reviewed by: Yessy Gonzalez RN - Fully Assessed Reason for Visit: Appointment [186] Prescriptions as of 06/09/2023 - buprenorphine HCl/naloxone HCl (BUPRENORPHINE-NALOXO NE BUCCAL) Buprenorphine-Naloxon e Active 1 FILM SL Q24H April 13, 2023 12:00am - clobetasol (TEMOVATE) 0.05 % cream APPLY THIN LAYER TO ELBOW REGION TWICE DAILY FOR 14 DAYS - nabumetone (RELAFEN) 750 mg tablet Take by mouth. - venlafaxine ER (EFFEXOR XR) 150 mg 24 hr capsule TAKE 1 CAPSULE BY MOUTH DAILY. DO NOT CRUSH OR CHEW - albuterol HFA (PROVENTIL HFA, VENTOLIN HFA) 90 mcg/actuation inhaler Inhale 2 Puffs as instructed every 4 hours as needed for wheezing/shortness of breath. - cetirizine (ZYRTEC) 10 mg tablet Take 1 tablet by mouth once daily. - ondansetron orally disintegrating (ZOFRAN ODT) 4 mg disintegrating tablet DISSOLVE 1 TABLET BY MOUTH EVERY 8 HOURS NEEDED FOR NAUSEA - leflunomide (ARAVA) 10 mg tablet Take 1 tablet by mouth once daily. - triamcinolone acetonide (KENALOG) 0.1 % ointment APPLY TWICE A DAY TO THE AFFECTED AREA OF THE ELBOW - Cholecalciferol, Vitamin D3, (VITAMIN D) 25 mcg (1,000 unit) cap Take 2 capsules by mouth once daily. Problem List As Of Date 05/14/2023 Noted Resolved Vitamin D deficiency [E55.9] 04/23/2017 Cyclic citrullinated peptide (CCP) antibody pos*12/30/2017 Rheumatoid factor positive [R76.8] 12/30/2017 Seropositive rheumatoid arthritis (HCC) [M05.9] 12/30/2017 Smokes and motivated to quit [F17.200] 12/30/2017 Encounter Status:Closed by ELDER CLAYTON on 06/09/23 [facility] CNOVon 04-28-2023 ZAYNABOV Office Visit (MARK ) ANY LUDWIG ([id number]) 1985 F Date Time Provider Department 04/28/23 2:00 PM FARIBA HILL During your visit today, we recorded the following information about you: 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 05/24/2023 5:01 PM Signed FOLLOW UP VISIT-in person PCP: Tino Blake MD [address] [place] [address] Ms. Ludwig is a 38 year old patient here today for follow up of RA Interim History: More pain Swelling - right elbow , nodule Am stiffness - 1 hours Worse with weather changes Pain -08/31 Not taking anything for pain No infections No illness vit d 2000 international unit(s) daily Actemra every 4 weeks Arava 10mg daily Had tubal ligation She is cutting down on smoking REVIEW OF SYSTEMS: Review of Systems CONSTITUTION: Negative for: Weight loss or gain, Fever. Chills, Night sweats HEENT: Negative for: Nosebleeds, Mouth sores and Dry mouth RESPIRATORY: Negative for: Cough, Shortness of breath, Pain with breathing and Coughing up blood GASTROINTESTINAL: Negative for: Melena, Diarrhea, Abdominal pain, Heartburn, MUSCULOSKELETAL: Positive for: Arthralgias, Myalgias, Joint swelling and Morning Joint Stiffness Negative for: Muscle weakness NEUROLOGICAL: Positive for: Headaches and Numbness (numbness in right hand where she has inflammation, none on exam ) Negative for: Memory loss SKIN: Negative for: Rashes, Sun sensitive rashes, Skin color changes, Hair loss, Nail changesNegative for: Hair loss and Nail changes EYES: Negative for: Eye pain, Eye redness and Eye dryness CARDIOVASCULAR: Negative for: Chest pain, Leg swelling, Arrhythmia, Presyncope GENITOURINARY: Negative for: Dysuria, Hematuria, Ulceration HEMATOLOGIC/LYMPHATIC : Past Medical Hx, Past Surgical Hx. Social Hx and Family Hx: unchanged ACTIVE PROBLEM LIST Cyclic Citrullinated Peptide (Ccp) Antibody Positive - 12/30/2017 Rheumatoid Factor Positive - 12/30/2017 Seropositive Rheumatoid Arthritis (Hcc) - 12/30/2017 Smokes and Motivated to Quit - 12/30/2017 Comment: Counseled on cessation Vitamin D Deficiency - 04/23/2017 PHYSICAL EXAMINATION: LMP 01/13/2023 (Approximate) GENERAL: alert and appropriate, in no distress, well-hydrated, well nourished and happy, smiling, interactive SKIN: no rash noted HEAD: normocephalic, no abnormality or lesion noted EYES: no injection and visual acuity is grossly normal EARS: hearing grossly normal No apparent nasal bridge collapse, no cartilage swelling, no parotid gland swelling. NOSE: external nose normal without rhinorrhea OROPHARYNX: moist mucus membranes NECK: full ROM, no cervical LNs noted RESPIRATORY: breathing non-labored CHEST: clear lung sounds ABDOMEN: soft and non-tender MUSCULOSKELETAL : nodules on b/l wrist unchanged no apparent joint effusion or synovitis Swollen joints-right elbow- nodule Tender joints - right elbow No tenderness with percussion over long bones-femur/tibia b/l EXTREMITIES: FROM NEUROLOGIC: no obvious deficit Prior Test results discussed with patient. IMPRESSION/DIAGNOSIS: M05.9 Seropositive rheumatoid arthritis (HCC) (primary encounter diagnosis) R22.9 Localized superficial swelling, mass, or lump Z71.89 Encounter for medication review and counseling M65.9 Synovitis Z71.2 Encounter to discuss test results Z51.81 Medication monitoring encounter F17.200 Smoker Rheumatoid Arthritis Sero-positive, RF, CCP Non-erosive Per Dr. Pandya last note At last visit the patient's Rheumatoid Arthritis appears to be active and worse since last visit and since being off DMARDs. She has not followed up since 2019. She has been off RA medications for 1.5 years. Stopped Arava and xejanz in 2019. She reports only took Xeljanz for the 30 day free supply. She did not follow up on the [employer] program, was unclear when asked. With patient's drug addition history, would have to defer from self injectables and needles at home. Due to her problems with transportation and lives far, she is unable to receive IV infusions. She is planning to follow up with local cryogenics engineer closer to home. Until she has her apt, we offered assistance with her RA care and follow up apt. Advised we can only provide 1 month supply and will need f/u apt for recheck and refill for her safety. We also reviewed importance of follow up with her dentist to evaluate for painful tooth and exclude infection. Dental infections can be risk for Rheumatoid Arthritis flares as well as concerns for more serious infections. Patient has had multiple unfortunate social and psychologic factors over her lifetime. We are assisting with hospice social worker consult, also to help with adherence to health care and patient's social support, especially that now she is caring for her infant, as a singl (more content not included)... Normal [facility] Kylah 04-28-2023 SUNITA Telephone ([place]) ANY LUDWIG ([id number]) 1985 F Date Time Provider Department 04/28/23 FARIBA HILL During your visit today, we recorded the following information about you: PetersburgYessy Rodrigez 04/28/2023 3:14 PM Signed Could you please check the Ultrasound of the Left Elbow Thank you Fariba Ferrell, BUSINESS OPERATIONS MANAGER.BOILERMAKING SUPERVISOR 04/28/2023 4:37 PM Signed Corrected please schedule Elder Clayton 05/14/2023 2:33 PM Signed When scheduling the US Elbow LT I was directed to send an encounter to their scheduling pool. Encounter has been sent and they will reach out to patient to schedule. DIANA Richey Allergies As of Date: 04/28/2023 Noted Allergy Reaction AVSOLA (INFLIXIMAB-AXXQ) 10/22/2022 10 - Anaphylaxis Comments: Adverse reaction, chest tightness, shortness of breath and trouble breathing Date Reviewed: 04/28/2023 Reviewed by: Yessy Gonzalez, RN - Fully Assessed Primary Visit Diagnosis:Seropositiv e rheumatoid arthritis (HCC) [M05.9] Other Visit Diagnosis:Localized superficial swelling, mass, or lump [R22.9] Order(s):US EXTREMITY MASS/FLUID COLLECTION LEFT [[id number]] Order #: [id number] FUTURE Prescriptions as of 05/14/2023 - ondansetron orally disintegrating (ZOFRAN ODT) 4 mg disintegrating tablet DISSOLVE 1 TABLET BY MOUTH EVERY 8 HOURS NEEDED FOR NAUSEA - VYVANSE 50 mg capsule Take 1 capsule by mouth every afternoon. - leflunomide (ARAVA) 10 mg tablet Take 1 tablet by mouth once daily. - albuterol HFA (PROVENTIL HFA, VENTOLIN HFA) 90 mcg/actuation inhaler INHALE 1 PUFF EVERY 6 HOURS NEEDED FOR SHORTNESS OF BREATH OR WHEEZING - venlafaxine ER (EFFEXOR XR) 37.5 mg 24 hr capsule Take 1 capsule by mouth every afternoon. - triamcinolone acetonide (KENALOG) 0.1 % ointment APPLY TWICE A DAY TO THE AFFECTED AREA OF THE ELBOW - gabapentin (NEURONTIN) 600 mg tablet TAKE 1 TABLET BY MOUTH 3 TIMES A DAY FOR ANXIETY - Cholecalciferol, Vitamin D3, (VITAMIN D) 25 mcg (1,000 unit) cap Take 2 capsules by mouth once daily. - buprenorphine-naloxon e (SUBOXONE) 8-2 mg film Dissolve under the tongue once daily. Prescribed by outside physician Problem List As Of Date 04/28/2023 Noted Resolved Vitamin D deficiency [E55.9] 04/23/2017 Cyclic citrullinated peptide (CCP) antibody pos*12/30/2017 Rheumatoid factor positive [R76.8] 12/30/2017 Seropositive rheumatoid arthritis (HCC) [M05.9] 12/30/2017 Smokes and motivated to quit [F17.200] 12/30/2017 Encounter Status:Closed by FARIBA HILL on 04/28/23 [facility] Kylah 04-20-2023 SUNITA Telephone (DEJAN) ANY LUDWIG ([id number]) 1985 F Date Time Provider Department 04/20/23 JUAN DANIEL LEOS During your visit today, we recorded the following information about you: Juan Daniel Leos MD 04/20/2023 6:33 PM Signed Patient was No Show to her f/u apt for RA today. Perhaps she is only able to come during her infusion apt. due to her other obligations. She is scheduled for her next Actemra infusion on April 28, 2023. Please check with Annie Mares CNP, if she can see her for f/u RA same day of her infusion apt. Please also schedule patient with Fariba Hill CNP for her future apts, before every Actemra infusion apt (same day). If I have openings on any of these days, can schedule apt with me. Patient has high rate of no show to apts and her treatment is important. She will need to be seen monthly at every infusion apt, when possible. thank you kindly, Fariba Franklin, [place].BOILERMAKING SUPERVISOR 04/20/2023 8:18 PM Signed Please add her to my schedule 3 at 2pm use 60 min virtual and I will try to stop over sometime during her infusion [place] DianaNievesBailey 04/21/2023 10:29 AM Signed Mark Link - April appointment has been scheduled as requested. Please let our infusion planner/scheduler(s) know how you would like to proceed for all future infusion visits as requested below by Dr. Leos. Dr. Leos does not have any available openings to accommodate Ms. Ludwig through 2023. Please advise. Thank you, Bailey Aaron ORTIZ April 21, 2023 10:25 AM Yessy Galarza 04/21/2023 3:07 PM Signed LMOM for patient to call the office back Please warm transfer to [facility] Fariba Gonzalez APRN.BOILERMAKING SUPERVISOR 04/21/2023 4:52 PM Signed Please change patient schedule going forward with a ov each infusion with me If patients normal time to come is is 1130 Please use my 1100 slot 60min for every infusion with infusion directly following Yessy Galarza 04/22/2023 11:29 AM Signed LMOM again asking patient to call the office back to schedule appointments with Fariba Hill. Would you like me to move her infusions because you don't have any appointments at the 11:00 times on the patients next 3 infusion? Any Carranza 04/22/2023 11:39 AM Signed Pt called back regarding below. Please review and advise. Yessy Suárez 04/23/2023 3:06 PM Signed LMOM letting patient know that Fariba Hill ask me to Please add her to my schedule 3 at 2pm use 60 min virtual and I will try to stop over sometime during her infusion Allergies As of Date: 04/20/2023 Noted Allergy Reaction AVSOLA (INFLIXIMAB-AXXQ) 10/22/2022 10 - Anaphylaxis Comments: Adverse reaction, chest tightness, shortness of breath and trouble breathing Date Reviewed: 03/31/2023 Reviewed by: Trina Walker RN - Fully Assessed Reason for Visit: No Show [1558] Cmt: To f/u apt Prescriptions as of 04/23/2023 - ondansetron orally disintegrating (ZOFRAN ODT) 4 mg disintegrating tablet DISSOLVE 1 TABLET BY MOUTH EVERY 8 HOURS NEEDED FOR NAUSEA - VYVANSE 50 mg capsule Take 1 capsule by mouth every afternoon. - leflunomide (ARAVA) 10 mg tablet Take 1 tablet by mouth once daily. - albuterol HFA (PROVENTIL HFA, VENTOLIN HFA) 90 mcg/actuation inhaler INHALE 1 PUFF EVERY 6 HOURS NEEDED FOR SHORTNESS OF BREATH OR WHEEZING - venlafaxine ER (EFFEXOR XR) 37.5 mg 24 hr capsule Take 1 capsule by mouth every afternoon. - triamcinolone acetonide (KENALOG) 0.1 % ointment APPLY TWICE A DAY TO THE AFFECTED AREA OF THE ELBOW - gabapentin (NEURONTIN) 600 mg tablet TAKE 1 TABLET BY MOUTH 3 TIMES A DAY FOR ANXIETY - Cholecalciferol, Vitamin D3, (VITAMIN D) 25 mcg (1,000 unit) cap Take 2 capsules by mouth once daily. - buprenorphine-naloxon e (SUBOXONE) 8-2 mg film Dissolve under the tongue once daily. Prescribed by outside physician Problem List As Of Date 04/20/2023 Noted Resolved Vitamin D deficiency [E55.9] 04/23/2017 Cyclic citrullinated peptide (CCP) antibody pos*12/30/2017 Rheumatoid factor positive [R76.8] 12/30/2017 Seropositive rheumatoid arthritis (HCC) [M05.9] 12/30/2017 Smokes and motivated to quit [F17.200] 12/30/2017 Encounter Status:Closed by YESSY GALARZA on 04/21/23 Normal [facility] ALT SerPl-cCncon 03-01-2023 ALT [Catalytic activity/Vol] 13 U/L Normal 7-38 [facility] Comment on above: Order Comment: Speci men Type: BLOOD SPECIMENOrdering Facility: [facility] Address: [address] [place] [address] Performed By: #### 1 742-6, 1920-8, CRET1 ####[facility] LABCLIA [id number] [place] [id number] [place] AST SerPl-cCncon 03-01-2023 AST [Catalytic activity/Vol] 18 U/L Normal 13-35 [facility] Comment on above: Order Comment: Speci men Type: BLOOD SPECIMENOrdering Facility: [facility] Address: [address] [place] [address] Performed By: #### 1 742-6, 1920-8, CRET1 ####[facility] LABCLIA [id number] [place] [address] [place] CBC W Auto Differential pane l (Bld)on 03-01-2023 Basophils (Bld) [#/Vol] 0.03 10*3/uL Normal <0.11 [facility] Comment on above: Order Comment: Speci men Type: BLOOD SPECIMENOrdering Facility: [facility] Address: [address] [place] [address] Performed By: #### 5 7021-8 ####[facility] LABCLIA [id number] [place] [address] [place] Basophils/100 WBC (Bld) 0.6 % Normal [facility] Comment on above: Order Comment: Speci men Type: BLOOD SPECIMENOrdering Facility: [facility] Address: [address] [place] [address] Performed By: #### 5 7021-8 ####[facility] LABIA [id number] [place] [address] [place] Differential cell count method Nom (Bld) Auto Normal [facility] Comment on above: Order Comment: Speci men Type: BLOOD SPECIMENOrdering Facility: [facility] Address: [address] [place] [address] Performed By: #### 5 7021-8 ####[facility] LABCLIA [id number] [place] [address] [place] Eosinophils (Bld) [#/Vol] 0.11 10*3/uL Normal <0.46 [facility] Comment on above: Order Comment: Speci men Type: BLOOD SPECIMENOrdering Facility: [facility] Address: [address] [place] [address] Performed By: #### 5 7021-8 ####[facility] LABCLIA [id number] [place] [address] [place] Eosinophils/100 WBC (Bld) 2.2 % Normal [facility] Comment on above: Order Comment: Speci men Type: BLOOD SPECIMENOrdering Facility: [facility] Address: [address] [place] [address] Performed By: #### 5 7021-8 ####[facility] LABIA [id number] [place] [address] [place] Erythrocyte distribution width (RBC) [Ratio] 13.2 % Normal 11.5-15.0 [facility] Comment on above: Order Comment: Speci men Type: BLOOD SPECIMENOrdering Facility: [facility] Address: [address] [place] [address] Performed By: #### 5 7021-8 ####[facility] LABIA [id number] [place] [address] [place] Hematocrit (Bld) [Volume fraction] 36.4 % Normal 36.0-46.0 [facility] Comment on above: Order Comment: Speci men Type: BLOOD SPECIMENOrdering Facility: [facility] Address: [address] [place] [address] Performed By: #### 5 7021-8 ####[facility] LABIA [id number] [place] [address] [place] Hemoglobin (Bld) [Mass/Vol] 12.0 g/dL Normal 11.5-15.5 [facility] Comment on above: Order Comment: Speci men Type: BLOOD SPECIMENOrdering Facility: [facility] Address: [address] [place] [address] Performed By: #### 5 7021-8 ####[facility] LABCLIA [id number] [place] [address] [place] Immature granulocytes (Bld) [#/Vol] 10*3/uL Normal <0.10 [facility] Comment on above: Order Comment: Speci men Type: BLOOD SPECIMENOrdering Facility: [facility] Address: [address] [place] [address] Performed By: #### 5 7021-8 ####[facility] LABCLIA [id number] [place] [address] [place] Immature granulocytes/100 WBC (Bld) 0.4 % Normal [facility] Comment on above: Order Comment: Speci men Type: BLOOD SPECIMENOrdering Facility: [facility] Address: [address] [place] [address] Performed By: #### 5 7021-8 ####[facility] LABCLIA [id number] [place] [address] [place] Lymphocytes (Bld) [#/Vol] 2.42 10*3/uL Normal 1.00-4.00 [facility] Comment on above: Order Comment: Speci men Type: BLOOD SPECIMENOrdering Facility: [facility] Address: [address] [place] [address] Performed By: #### 5 7021-8 ####[facility] LABIA [id number] [place] [address] [place] Lymphocytes/100 WBC (Bld) 47.9 % Normal [facility] Comment on above: Order Comment: Speci men Type: BLOOD SPECIMENOrdering Facility: [facility] Address: [address] [place] [address] Performed By: #### 5 7021-8 ####[facility] LABCLIA [id number] [place] [address] [place] MCH (RBC) [Entitic mass] 27.1 pg Normal 26.0-34.0 [facility] Comment on above: Order Comment: Speci men Type: BLOOD SPECIMENOrdering Facility: [facility] Address: [address] [place] [address] Performed By: #### 5 7021-8 ####[facility] LABCLIA [id number] [place] [address] [place] MCHC (RBC) [Mass/Vol] 33.0 g/dL Normal 30.5-36.0 [facility] Comment on above: Order Comment: Speci men Type: BLOOD SPECIMENOrdering Facility: [facility] Address: [address] [place] [address] Performed By: #### 5 7021-8 ####[facility] LABIA [id number] [place] [address] [place] MCV (RBC) [Entitic vol] 82.4 fL Normal 80.0-100.0 [facility] Comment on above: Order Comment: Speci men Type: BLOOD SPECIMENOrdering Facility: [facility] Address: [address] [place] [address] Performed By: #### 5 7021-8 ####[facility] LABIA [id number] [place] [address] [place] Monocytes (Bld) [#/Vol] 0.35 10*3/uL Normal <0.87 [facility] Comment on above: Order Comment: Speci men Type: BLOOD SPECIMENOrdering Facility: [facility] Address: [address] [place] [address] Performed By: #### 5 7021-8 ####[facility] LABIA [id number] [place] [address] [place] Monocytes/100 WBC (Bld) 6.9 % Normal [facility] Comment on above: Order Comment: Speci men Type: BLOOD SPECIMENOrdering Facility: [facility] Address: [address] [place] [address] Performed By: #### 5 7021-8 ####[facility] LABCLIA [id number] [place] [address] [place] Neutrophils (Bld) [#/Vol] 2.12 10*3/uL Normal 1.45-7.50 [facility] Comment on above: Order Comment: Speci men Type: BLOOD SPECIMENOrdering Facility: [facility] Address: [address] [place] [address] Performed By: #### 5 7021-8 ####[facility] LABCLIA [id number] [place] [address] [place] Neutrophils/100 WBC (Bld) 42.0 % Normal [facility] Comment on above: Order Comment: Speci men Type: BLOOD SPECIMENOrdering Facility: [facility] Address: [address] [place] [address] Performed By: #### 5 7021-8 ####[facility] LABCLIA [id number] [place] [address] [place] Nucleated RBC (Bld) [#/Vol] 10*3/uL Normal <0.01 [facility] Comment on above: Order Comment: Speci men Type: BLOOD SPECIMENOrdering Facility: [facility] Address: [address] [place] [address] Performed By: #### 5 7021-8 ####[facility] LABCLIA [id number] [place] [address] [place] Nucleated RBC/100 WBC (Bld) [Ratio] 0.0 /100 WBC Normal [facility] Comment on above: Order Comment: Speci men Type: BLOOD SPECIMENOrdering Facility: [facility] Address: [address] [place] [address] Performed By: #### 5 7021-8 ####[facility] LABCLIA [id number] [place] [address] [place] Platelet mean volume (Bld) [Entitic vol] 10.7 fL Normal 9.0-12.7 [facility] Comment on above: Order Comment: Speci men Type: BLOOD SPECIMENOrdering Facility: [facility] Address: [address] [place] [address] Performed By: #### 5 7021-8 ####[facility] LABCLIA [id number] [place] [address] [place] Platelets (Bld) [#/Vol] 238 10*3/uL Normal 150-400 [facility] Comment on above: Order Comment: Speci men Type: BLOOD SPECIMENOrdering Facility: [facility] Address: [address] [place] [address] Performed By: #### 5 7021-8 ####[facility] LABCLIA [id number] [place] [address] [place] RBC (Bld) [#/Vol] 4.42 10*6/uL Normal 3.90-5.20 [facility] Comment on above: Order Comment: Speci men Type: BLOOD SPECIMENOrdering Facility: [facility] Address: [address] [place] [address] Performed By: #### 5 7021-8 ####[facility] LABCLIA [id number] [place] [address] [place] WBC (Bld) [#/Vol] 5.05 10*3/uL Normal 3.70-11.00 [facility] Comment on above: Order Comment: Speci men Type: BLOOD SPECIMENOrdering Facility: [facility] Address: [address] [place] [address] Performed By: #### 5 7021-8 ####[facility] LABCLIA [id number] [place] [address] [place] CREATININE BLDon 03-01-2023 Creatinine [Mass/Vol] 0.47 mg/dL Low 0.58-0.96 [facility] Comment on above: Order Comment: Speci men Type: BLOOD SPECIMENOrdering Facility: [facility] Address: [address] [place] [address] Performed By: #### 1 742-6, 1919-09, CRET1 ####[facility] LABIA [id number] [address] [place] OF [facility] Creatinine and Glomerular filtration rate.predicted panel (S/P/Bld) 124 mL/min/1.73m??? Normal >=60 [facility] Comment on above: Order Comment: Shaneka montemayor Type: BLOOD SPECIMENOrdering Facility: [facility] Address: [address] [place] [address] Result Comment: Polly mated Glomerular Filtration Rate (eGFR) is calculated using the 2020 CKD-EPI creatinine equation. This equation utilizes serum creatinine, sex, and age as parameters. The creatinine assay has traceable calibration to isotope dilution-mass spectrometry. Refer to KDIGO guidelines for clinical interpretation. In patients with unstable renal function, e.g. those with acute kidney injury, the eGFR may not accurately reflect actual GFR. Performed By: #### 1 742-6, 19208, CRET1 ####[facility] LABIA [id number] [place] [id number] [place] Kylah 02-16-2023 SUNITA Telephone ([place]) ANY LUDWIG ([id number]) 1985 F Date Time Provider Department 02/16/23 FARIBA HILL During your visit today, we recorded the following information about you: Yessy Gonzalez, VALORIE 02/16/2023 9:59 AM Signed VM left for patient to call office to confirm infusion. Trina Walker RN 2023 10:23 AM Signed LMOM for patient to confirm patient is coming for infusion tomorrow. Na Arevalo RN 2023 1:30 PM Signed LMOM for patient to call back regarding infusion for tomorrow Yessy Gonzalez RN 02/18/2023 3:35 PM Signed Pt did not show for her infusion today. Please call her to reschedule. Yessy Galarza 02/18/2023 3:51 PM Signed Patient has been rescheduled as requested Allergies As of Date: 02/16/2023 Noted Allergy Reaction AVSOLA (INFLIXIMAB-AXXQ) 10/22/2022 10 - Anaphylaxis Comments: Adverse reaction, chest tightness, shortness of breath and trouble breathing Date Reviewed: 01/20/2023 Reviewed by: 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 - Fully Assessed Prescriptions as of 02/18/2023 - ondansetron orally disintegrating (ZOFRAN ODT) 4 mg disintegrating tablet DISSOLVE 1 TABLET BY MOUTH EVERY 8 HOURS NEEDED FOR NAUSEA - VYVANSE 50 mg capsule Take 1 capsule by mouth every afternoon. - leflunomide (ARAVA) 10 mg tablet Take 1 tablet by mouth once daily. - albuterol HFA (PROVENTIL HFA, VENTOLIN HFA) 90 mcg/actuation inhaler INHALE 1 PUFF EVERY 6 HOURS NEEDED FOR SHORTNESS OF BREATH OR WHEEZING - venlafaxine ER (EFFEXOR XR) 37.5 mg 24 hr capsule Take 1 capsule by mouth every afternoon. - triamcinolone acetonide (KENALOG) 0.1 % ointment APPLY TWICE A DAY TO THE AFFECTED AREA OF THE ELBOW - gabapentin (NEURONTIN) 600 mg tablet TAKE 1 TABLET BY MOUTH 3 TIMES A DAY FOR ANXIETY - Cholecalciferol, Vitamin D3, (VITAMIN D) 25 mcg (1,000 unit) cap Take 2 capsules by mouth once daily. - buprenorphine-naloxon e (SUBOXONE) 8-2 mg film Dissolve under the tongue once daily. Prescribed by outside physician Problem List As Of Date 02/16/2023 Noted Resolved Vitamin D deficiency [E55.9] 04/23/2017 Cyclic citrullinated peptide (CCP) antibody pos*12/30/2017 Rheumatoid factor positive [R76.8] 12/30/2017 Seropositive rheumatoid arthritis (HCC) [M05.9] 12/30/2017 Smokes and motivated to quit [F17.200] 12/30/2017 Encounter Status:Closed by YESSY GALARZA on 02/18/23 [facility] Kylah 02-01-2023 ANTHONYN Telephone ([place]) MEIANY Martinez ([id number]) 1985 F Date Time Provider Department 02/01/23 [facility] LESLIE CALLAHAN During your visit today, we recorded the following information about you: Yessy Galarza 02/01/2023 4:20 PM Signed ----- Message from Irais Ochoa sent at 02/01/2023 3:13 PM EST ----- Regarding: infusion reschedule Contact: Patient name: Any Ludwig Who is calling: Patient Call back number: [phone] [facility] ordering provider: Dr Mccann Type of infusion: Actemra Patient just needs to reschedule 02/02/23 appt Yessy Galarza 02/01/2023 4:20 PM Signed LMOM for patient to call us back to reschedule her infusion . Please warm transfer to [facility] Allergies As of Date: 02/01/2023 Noted Allergy Reaction AVSOLA (INFLIXIMAB-AXXQ) 10/22/2022 10 - Anaphylaxis Comments: Adverse reaction, chest tightness, shortness of breath and trouble breathing Date Reviewed: 01/20/2023 Reviewed by: 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 - Fully Assessed Prescriptions as of 02/01/2023 - ondansetron orally disintegrating (ZOFRAN ODT) 4 mg disintegrating tablet DISSOLVE 1 TABLET BY MOUTH EVERY 8 HOURS NEEDED FOR NAUSEA - VYVANSE 50 mg capsule Take 1 capsule by mouth every afternoon. - predniSONE (DELTASONE) 5 mg tablet Take 4 tablets by mouth once daily for 7 days, THEN 3 tablets once daily for 7 days, THEN 2 tablets once daily for 7 days, THEN 1 tablet once daily for 7 days. With breakfast. No other nsaids. - leflunomide (ARAVA) 10 mg tablet Take 1 tablet by mouth once daily. - albuterol HFA (PROVENTIL HFA, VENTOLIN HFA) 90 mcg/actuation inhaler INHALE 1 PUFF EVERY 6 HOURS NEEDED FOR SHORTNESS OF BREATH OR WHEEZING - venlafaxine ER (EFFEXOR XR) 37.5 mg 24 hr capsule Take 1 capsule by mouth every afternoon. - triamcinolone acetonide (KENALOG) 0.1 % ointment APPLY TWICE A DAY TO THE AFFECTED AREA OF THE ELBOW - gabapentin (NEURONTIN) 600 mg tablet TAKE 1 TABLET BY MOUTH 3 TIMES A DAY FOR ANXIETY - Cholecalciferol, Vitamin D3, (VITAMIN D) 25 mcg (1,000 unit) cap Take 2 capsules by mouth once daily. - buprenorphine-naloxon e (SUBOXONE) 8-2 mg film Dissolve under the tongue once daily. Prescribed by outside physician Problem List As Of Date 02/01/2023 Noted Resolved Vitamin D deficiency [E55.9] 04/23/2017 Cyclic citrullinated peptide (CCP) antibody pos*12/30/2017 Rheumatoid factor positive [R76.8] 12/30/2017 Seropositive rheumatoid arthritis (HCC) [M05.9] 12/30/2017 Smokes and motivated to quit [F17.200] 12/30/2017 Encounter Status:Closed by YESSY GALARZA on 02/01/23 [facility] Yajaira 01-20-2023 DAMON Office Visit (MARK ) ANY LUDWIG ([id number]) 1985 F Date Time Provider Department 01/20/23 8:30 AM FARIBA HILL During your visit today, we recorded the following information about you: Temperature Pulse Blood pressure Weight 96.2 degrees 84/minute 128/82 72.4 kg Last Period 01/13/23 Fariba Hill APRN.ANTHONY 01/20/2023 10:13 AM Signed FOLLOW UP VISIT-in person PCP: Tino Blake MD [address] [place] [address] Ms. Ludwig is a 37 year old patient here today for follow up of RA Interim History: More pain Swelling - right foot and wrists Am stiffness - 1 hours Worse with weather changes Pain -08/31 Not taking anything for pain No infections No illness Not taking vit d Will start otc 200 international unit(s) daily Actemra had 2 doses Arava 10mg daily Had tubal ligation She is cutting down on smoking REVIEW OF SYSTEMS: Review of Systems CONSTITUTION: Negative for: Weight loss or gain, Fever. Chills, Night sweats HEENT: Negative for: Nosebleeds, Mouth sores, Trouble swallowing, Dry mouth Negative for: Nosebleeds, Mouth sores and Dry mouth RESPIRATORY: Negative for: Cough, Shortness of breath, Pain with breathing and Coughing up blood GASTROINTESTINAL: Negative for: Melena, Diarrhea, Abdominal pain, Heartburn, MUSCULOSKELETAL: Positive for: Arthralgias, Myalgias, Joint swelling and Morning Joint Stiffness Negative for: Muscle weakness NEUROLOGICAL: Positive for: Headaches and Numbness (numbness in right hand where she has inflammation, none on exam ) Negative for: Memory loss SKIN: Negative for: Rashes, Sun sensitive rashes, Skin color changes, Hair loss, Nail changesNegative for: Hair loss and Nail changes EYES: Negative for: Eye pain, Eye redness, Visual disturbance, Eye dryness Negative for: Eye pain, Eye redness and Eye dryness CARDIOVASCULAR: Negative for: Chest pain, Leg swelling, Arrhythmia, Presyncope GENITOURINARY: Negative for: Dysuria, Hematuria, Ulceration HEMATOLOGIC/LYMPHATIC : Negative for: Swollen glands Past Medical Hx, Past Surgical Hx. Social Hx and Family Hx: unchanged ACTIVE PROBLEM LIST Cyclic Citrullinated Peptide (Ccp) Antibody Positive - 12/30/2017 Rheumatoid Factor Positive - 12/30/2017 Seropositive Rheumatoid Arthritis (Hcc) - 12/30/2017 Smokes and Motivated to Quit - 12/30/2017 Comment: Counseled on cessation Vitamin D Deficiency - 04/23/2017 PHYSICAL EXAMINATION: BP 128/82 Pulse 84 Temp (!) 35.7 ?C (96.2 ?F) Wt 72.4 kg (159 lb 11.6 oz) LMP 01/13/2023 (Approximate) SpO2 97% BMI 25.02 kg/m? GENERAL: alert and appropriate, in no distress, well-hydrated, well nourished and happy, smiling, interactive SKIN: no rash noted HEAD: normocephalic, no abnormality or lesion noted EYES: no injection and visual acuity is grossly normal EARS: hearing grossly normal No apparent nasal bridge collapse, no cartilage swelling, no parotid gland swelling. 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 IMPRESSION/DIAGNOSIS: M05.9 Seropositive rheumatoid arthritis (HCC) (primary encounter diagnosis) M79.671 Pain in right foot Z51.81, Z79.899 Encounter for monitoring leflunomide therapy Z71.89 Encounter for medication review and counseling M65.9 Synovitis E55.9 Vitamin D deficiency Z51.81 Medication monitoring encounter Z71.2 Encounter to discuss test results Rheumatoid Arthritis Sero-positive, RF, CCP Non-erosive Per Dr. Pandya last note At last visit the patient's Rheumatoid Arthritis appears to be active and worse since last visit and since being off DMARDs. She has not followed up since 2019. She has been off RA medications for 1.5 years. Stopped Arava and xejanz in 2019. She reports only took Xeljanz for the 30 day free supply. She did not follow up on the [employer] program, was unclear when asked. With patient's drug addition history, would have to defer from self injectables and needles at home. Due to her problems with transportation and lives far, she is unable to receive IV infusions. She is planning to follow up with local cryogenics engineer closer to home. Until she has her apt, we offered assistance with her RA care and follow up apt. Advised we can only provide 1 month supply and will need f/u apt for recheck and refill for her safe (more content not included)... Normal [facility] 01-20-2023 SUNITA Telephone ([place]) ANY LUDWIG ([id number]) 1985 F Date Time Provider Department 01/20/23 FARIBA HILL During your visit today, we recorded the following information about you: Fariba Hill APRN.CNP 01/20/2023 10:10 AM Signed Please increase actemra 8mg/kg every 4 weeks Allergies As of Date: 01/20/2023 Noted Allergy Reaction AVSOLA (INFLIXIMAB-AXXQ) 10/22/2022 10 - Anaphylaxis Comments: Adverse reaction, chest tightness, shortness of breath and trouble breathing Date Reviewed: 01/20/2023 Reviewed by: Fariba Hill APRN.CNP - Fully Assessed Reason for Visit: Medication Problem [65] Prescriptions as of 01/21/2023 - ondansetron orally disintegrating (ZOFRAN ODT) 4 mg disintegrating tablet DISSOLVE 1 TABLET BY MOUTH EVERY 8 HOURS NEEDED FOR NAUSEA - VYVANSE 50 mg capsule Take 1 capsule by mouth every afternoon. - predniSONE (DELTASONE) 5 mg tablet Take 4 tablets by mouth once daily for 7 days, THEN 3 tablets once daily for 7 days, THEN 2 tablets once daily for 7 days, THEN 1 tablet once daily for 7 days. With breakfast. No other nsaids. - leflunomide (ARAVA) 10 mg tablet Take 1 tablet by mouth once daily. - albuterol HFA (PROVENTIL HFA, VENTOLIN HFA) 90 mcg/actuation inhaler INHALE 1 PUFF EVERY 6 HOURS NEEDED FOR SHORTNESS OF BREATH OR WHEEZING - venlafaxine ER (EFFEXOR XR) 37.5 mg 24 hr capsule Take 1 capsule by mouth every afternoon. - triamcinolone acetonide (KENALOG) 0.1 % ointment APPLY TWICE A DAY TO THE AFFECTED AREA OF THE ELBOW - gabapentin (NEURONTIN) 600 mg tablet TAKE 1 TABLET BY MOUTH 3 TIMES A DAY FOR ANXIETY - Cholecalciferol, Vitamin D3, (VITAMIN D) 25 mcg (1,000 unit) cap Take 2 capsules by mouth once daily. - buprenorphine-naloxon e (SUBOXONE) 8-2 mg film Dissolve under the tongue once daily. Prescribed by outside physician Problem List As Of Date 01/20/2023 Noted Resolved Vitamin D deficiency [E55.9] 04/23/2017 Cyclic citrullinated peptide (CCP) antibody pos*12/30/2017 Rheumatoid factor positive [R76.8] 12/30/2017 Seropositive rheumatoid arthritis (HCC) [M05.9] 12/30/2017 Smokes and motivated to quit [F17.200] 12/30/2017 Encounter Status:Closed by ARTHUR FLORES on 01/21/23 [facility] 12-17-2022 [place] Telephone (MARK) ANY LUDWIG ([id number]) 1985 F Date Time Provider Department 12/17/22 FARIBA HILL During your visit today, we recorded the following information about you: Josefina Randolph MA 12/17/2022 4:00 PM Signed Received outside lab results from [facility] AST and ALT results completed on 12/14 ALT: 33 AST: 19 placed on Fariba's desk for review 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 12/18/2022 2:07 PM Signed Please call patient Normal liver enzymes Will recheck in 1 month May restart arava 10mg daily Josefina Randolph MA 12/18/2022 2:31 PM Signed Left message for patient to call office regarding below. Josefina Randolph MA 12/18/2022 2:31 PM Signed Left message for patient to call office regarding below. sent mychart Allergies As of Date: 12/17/2022 Noted Allergy Reaction AVSOLA (INFLIXIMAB-AXXQ) 10/22/2022 10 - Anaphylaxis Comments: Adverse reaction, chest tightness, shortness of breath and trouble breathing Date Reviewed: 10/22/2022 Reviewed by: Na Arevalo RN - Fully Assessed Reason for Visit: Results [95] Visit Diagnosis:Seropositiv e rheumatoid arthritis (HCC) [M05.9] Order(s):leflunomide (ARAVA) 10 mg tabletTake 1 tablet by mouth once daily.Disp: 30 tabletRfl: 3 CBC + DIFF [SQCBCDIF] Order #: [id number] FUTURE AST/SGOT BLD [SQAST] Order #: [id number] FUTURE ALT/SGPT [SQALT] Order #: [id number] FUTURE CREATININE BLD [SQCRET] Order #: [id number] FUTURE Prescriptions as of 12/21/2022 - leflunomide (ARAVA) 10 mg tablet Take 1 tablet by mouth once daily. - VYVANSE 40 mg capsule Take 1 capsule by mouth every afternoon. - albuterol HFA (PROVENTIL HFA, VENTOLIN HFA) 90 mcg/actuation inhaler INHALE 1 PUFF EVERY 6 HOURS NEEDED FOR SHORTNESS OF BREATH OR WHEEZING - venlafaxine ER (EFFEXOR XR) 37.5 mg 24 hr capsule Take 1 capsule by mouth every afternoon. - triamcinolone acetonide (KENALOG) 0.1 % ointment APPLY TWICE A DAY TO THE AFFECTED AREA OF THE ELBOW - ergocalciferol 50,000 unit capsule (VITAMIN D2, DRISDOL) Take 1 capsule by mouth two times a week. (FOR EXAMPLE ONE CAPSULE ON WEDNESDAY AND ONE ON WEDNESDAY) FOR A TOTAL OF 8 WEEKS, WITH A MEAL - gabapentin (NEURONTIN) 600 mg tablet TAKE 1 TABLET BY MOUTH 3 TIMES A DAY FOR ANXIETY - Cholecalciferol, Vitamin D3, (VITAMIN D) 25 mcg (1,000 unit) cap Take 2 capsules by mouth once daily. - buprenorphine-naloxon e (SUBOXONE) 8-2 mg film Dissolve under the tongue once daily. Prescribed by outside physician Problem List As Of Date 12/17/2022 Noted Resolved Vitamin D deficiency [E55.9] 04/23/2017 Cyclic citrullinated peptide (CCP) antibody pos*12/30/2017 Rheumatoid factor positive [R76.8] 12/30/2017 Seropositive rheumatoid arthritis (HCC) [M05.9] 12/30/2017 Smokes and motivated to quit [F17.200] 12/30/2017 Prescriptions ordered this encounter Disp Refills Start End LEFLUNOMIDE 10 MG TABLET 30 t* 3 12/18/2022 Route: ORAL Sig: Take 1 tablet by mouth once daily. Medications Discontinued During This Encounter Prescriptions - leflunomide (ARAVA) 10 mg tablet (Discontinued) Take 1 tablet by mouth once daily. Encounter Status:Closed [facility] Telephone (ORQ) ANY LUDWIG ([id number]) 1985 F Date Time Provider Department 12/14/22 FARIBA HILL During your visit today, we recorded the following information about you: Komal Nunn 12/14/2022 9:21 AM Signed Any Ludwig is calling Fariba Hill APRN.[facility] today to request Lab Orders be faxed to [facility]. She believes their fax number is [phone]. She states we can call them to verify at [phone]. Please notify pt once orders have been faxed. Patient has been identified by name and birthdate. Duration of symptoms: N/A Person calling: self Call patient at: on cell [phone] (home) [phone] (cell) Was an appointment scheduled: No Closing statement: Results or non-symptom based questions: Thank you for calling [facility], your call will be returned within the next business day. Josefina Smith MA 12/14/2022 11:41 AM Signed Fariba from [facility] lab called to follow up on request -- lab orders faxed to [phone] as requested with confirmation Soraida Lora 12/14/2022 12:54 PM Signed [facility] lab calling about orders. Patient did not give correct fax number. Please re-fax to [phone]. Patient is still waiting at lab. Please advise. DIANA Bethea Pollock POST (Patient Operations Support Team) Please note: Please do not re-route phone encounters back to this agent, please send to appropriate office pool. Agent works in operations center and cannot complete patient specific tasks. Elizabeth Shelton LPN 12/14/2022 1:03 PM Signed Lab orders faxed with confirmation to below number. Allergies As of Date: 12/14/2022 Noted Allergy Reaction AVSOLA (INFLIXIMAB-AXXQ) 10/22/2022 10 - Anaphylaxis Comments: Adverse reaction, chest tightness, shortness of breath and trouble breathing Date Reviewed: 10/22/2022 Reviewed by: Na Arevalo, RN - Fully Assessed Reason for Visit: Lab Orders [6205] Prescriptions as of 12/14/2022 - VYVANSE 40 mg capsule Take 1 capsule by mouth every afternoon. - albuterol HFA (PROVENTIL HFA, VENTOLIN HFA) 90 mcg/actuation inhaler INHALE 1 PUFF EVERY 6 HOURS NEEDED FOR SHORTNESS OF BREATH OR WHEEZING - venlafaxine ER (EFFEXOR XR) 37.5 mg 24 hr capsule Take 1 capsule by mouth every afternoon. - triamcinolone acetonide (KENALOG) 0.1 % ointment APPLY TWICE A DAY TO THE AFFECTED AREA OF THE ELBOW - leflunomide (ARAVA) 10 mg tablet Take 1 tablet by mouth once daily. - ergocalciferol 50,000 unit capsule (VITAMIN D2, DRISDOL) Take 1 capsule by mouth two times a week. (FOR EXAMPLE ONE CAPSULE ON WEDNESDAY AND ONE ON WEDNESDAY) FOR A TOTAL OF 8 WEEKS, WITH A MEAL - gabapentin (NEURONTIN) 600 mg tablet TAKE 1 TABLET BY MOUTH 3 TIMES A DAY FOR ANXIETY - Cholecalciferol, Vitamin D3, (VITAMIN D) 25 mcg (1,000 unit) cap Take 2 capsules by mouth once daily. - buprenorphine-naloxon e (SUBOXONE) 8-2 mg film Dissolve under the tongue once daily. Prescribed by outside physician Problem List As Of Date 12/14/2022 Noted Resolved Vitamin D deficiency [E55.9] 04/23/2017 Cyclic citrullinated peptide (CCP) antibody pos*12/30/2017 Rheumatoid factor positive [R76.8] 12/30/2017 Seropositive rheumatoid arthritis (HCC) [M05.9] 12/30/2017 Smokes and motivated to quit [F17.200] 12/30/2017 Encounter Status:Closed by JOSEFINA RANDOLPH on 12/14/22 [facility] 12-11-2022 [place] Telephone (MARK) ANY LUDWIG ([id number]) 1985 F Date Time Provider Department 12/11/22 FARIBA HILL During your visit today, we recorded the following information about you: 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 12/11/2022 5:41 PM Signed Spoke with patient High liver enzymes Has not been taking arava since 09/2022 pharmacy did not have it Not taking tylenol Not taking anything otc Does not drink alcohol Not using any other drugs Recheck ast alt this week Component Latest Ref Rng AND Units 11/27/2022 WBC 3.70 - 11.00 k/uL 7.96 RBC 3.90 - 5.20 m/uL 4.36 Hemoglobin 11.5 - 15.5 g/dL 11.7 Hematocrit 36.0 - 46.0 % 36.5 MCV 80.0 - 100.0 fL 83.7 MCH 26.0 - 34.0 pg 26.8 MCHC 30.5 - 36.0 g/dL 32.1 RDW-CV 11.5 - 15.0 % 13.7 Platelet Count 150 - 400 k/uL 328 MPV 9.0 - 12.7 fL 10.5 Neut% % 38.6 Abs Neut (ANC) 1.45 - 7.50 k/uL 3.07 Lymph% % 49.2 Abs Lymph 1.00 - 4.00 k/uL 3.92 Sampson% % 8.2 Abs Sampson <0.87 k/uL 0.65 Eosin% % 2.3 Abs Eosin <0.46 k/uL 0.18 Baso% % 0.6 Abs Baso <0.11 k/uL 0.05 Immature Gran % % 1.1 IMMATURE GRANS (ABS) <0.10 k/uL 0.09 NRBC /100 WBC 0.0 Absolute nRBC <0.01 k/uL <0.01 DTYPE Auto Protein, Total 6.3 - 8.0 g/dL 6.7 Albumin 3.9 - 4.9 g/dL 4.0 Calcium 8.5 - 10.2 mg/dL 9.1 Bilirubin, Total 0.2 - 1.3 mg/dL 0.2 Alkaline Phosphatase 34 - 123 U/L 77 AST 13 - 35 U/L 54 (H) ALT 7 - 38 U/L 66 (H) Glucose 74 - 99 mg/dL 72 (L) BUN 7 - 21 mg/dL 8 Creatinine 0.58 - 0.96 mg/dL 0.48 (L) Sodium 136 - 144 mmol/L 133 (L) Potassium 3.7 - 5.1 mmol/L 4.4 Chloride 97 - 105 mmol/L 98 CO2 22 - 30 mmol/L 24 Anion Gap 9 - 18 mmol/L 11 eGFR >=60 mL/min/1.73mA? 125 CRP <0.9 mg/dL 0.4 WSR 0 - 20 mm/hr 20 Allergies As of Date: 12/11/2022 Noted Allergy Reaction AVSOLA (INFLIXIMAB-AXXQ) 10/22/2022 10 - Anaphylaxis Comments: Adverse reaction, chest tightness, shortness of breath and trouble breathing Date Reviewed: 10/22/2022 Reviewed by: Na Arevalo, VALORIE - Fully Assessed Reason for Visit: Results [95] Primary Visit Diagnosis:Seropositiv e rheumatoid arthritis (HCC) [M05.9] Order(s):AST/SGOT BLD [SQAST] Order #: [id number] FUTURE ALT/SGPT [SQALT] Order #: [id number] FUTURE Prescriptions as of 12/11/2022 - predniSONE (DELTASONE) 5 mg tablet Take 2 tablets by mouth once daily for 14 days, THEN 1 tablet once daily for 14 days. With breakfast. Then stop. No other nsaids.. - VYVANSE 40 mg capsule Take 1 capsule by mouth every afternoon. - albuterol HFA (PROVENTIL HFA, VENTOLIN HFA) 90 mcg/actuation inhaler INHALE 1 PUFF EVERY 6 HOURS NEEDED FOR SHORTNESS OF BREATH OR WHEEZING - venlafaxine ER (EFFEXOR XR) 37.5 mg 24 hr capsule Take 1 capsule by mouth every afternoon. - triamcinolone acetonide (KENALOG) 0.1 % ointment APPLY TWICE A DAY TO THE AFFECTED AREA OF THE ELBOW - leflunomide (ARAVA) 10 mg tablet Take 1 tablet by mouth once daily. - ergocalciferol 50,000 unit capsule (VITAMIN D2, DRISDOL) Take 1 capsule by mouth two times a week. (FOR EXAMPLE ONE CAPSULE ON WEDNESDAY AND ONE ON WEDNESDAY) FOR A TOTAL OF 8 WEEKS, WITH A MEAL - gabapentin (NEURONTIN) 600 mg tablet TAKE 1 TABLET BY MOUTH 3 TIMES A DAY FOR ANXIETY - Cholecalciferol, Vitamin D3, (VITAMIN D) 25 mcg (1,000 unit) cap Take 2 capsules by mouth once daily. - buprenorphine-naloxon e (SUBOXONE) 8-2 mg film Dissolve under the tongue once daily. Prescribed by outside physician Problem List As Of Date 12/11/2022 Noted Resolved Vitamin D deficiency [E55.9] 04/23/2017 Cyclic citrullinated peptide (CCP) antibody pos*12/30/2017 Rheumatoid factor positive [R76.8] 12/30/2017 Seropositive rheumatoid arthritis (HCC) [M05.9] 12/30/2017 Smokes and motivated to quit [F17.200] 12/30/2017 Encounter Status:Closed by FARIBA HILL on 10/20/23 [facility] C-REACTIVE PROTEIN (CRP)on 1 CRP [Mass/Vol] 0.4 mg/dL <0.9 mg/dL [facility] CBC W Auto Differential pane l (Bld)on 11-27-2022 Basophils (Bld) [#/Vol] 0.05 10*3/uL <0.11 k/uL [facility] Basophils/100 WBC (Bld) 0.6 % [facility] Differential cell count method Nom (Bld) Auto [facility] Eosinophils (Bld) [#/Vol] 0.18 10*3/uL <0.46 k/uL [facility] Eosinophils/100 WBC (Bld) 2.3 % [facility] Erythrocyte distribution width (RBC) [Ratio] 13.7 % 11.5 - 15.0 % [facility] Hematocrit (Bld) [Volume fraction] 36.5 % 36.0 - 46.0 % [facility] Hemoglobin (Bld) [Mass/Vol] 11.7 g/dL 11.5 - 15.5 g/dL [facility] Immature granulocytes (Bld) [#/Vol] 0.09 10*3/uL <0.10 k/uL [facility] Immature granulocytes/100 WBC (Bld) 1.1 % [facility] Lymphocytes (Bld) [#/Vol] 3.92 10*3/uL 1.00 - 4.00 k/uL [facility] Lymphocytes/100 WBC (Bld) 49.2 % [facility] MCH (RBC) [Entitic mass] 26.8 pg 26.0 - 34.0 pg [facility] MCHC (RBC) [Mass/Vol] 32.1 g/dL 30.5 - 36.0 g/dL [facility] MCV (RBC) [Entitic vol] 83.7 fL 80.0 - 100.0 fL [facility] Monocytes (Bld) [#/Vol] 0.65 10*3/uL <0.87 k/uL [facility] Monocytes/100 WBC (Bld) 8.2 % [facility] Neutrophils (Bld) [#/Vol] 3.07 10*3/uL 1.45 - 7.50 k/uL [facility] Neutrophils/100 WBC (Bld) 38.6 % [facility] Nucleated RBC (Bld) [#/Vol] <0.01 k/uL [facility] Nucleated RBC/100 WBC (Bld) [Ratio] 0.0 /100 WBC [facility] Platelet mean volume (Bld) [Entitic vol] 10.5 fL 9.0 - 12.7 fL [facility] Platelets (Bld) [#/Vol] 328 10*3/uL 150 - 400 k/uL [facility] RBC (Bld) [#/Vol] 4.36 10*6/uL 3.90 - 5.2 0 m/uL [facility] WBC (Bld) [#/Vol] 7.96 10*3/uL 3.70 - 11. 00 k/uL [facility] Basophils (Bld) [#/Vol] 0.05 10*3/uL Normal <0.11 [facility] Comment on above: Order Comment: Speci men Type: BLOOD SPECIMENOrdering Facility: [facility] Address: [address] [place] [address] Performed By: #### 4 537-7, 82043-4 ####[facility] LABCLIA [id number] [place] [address] [place] Basophils/100 WBC (Bld) 0.6 % Normal [facility] Comment on above: Order Comment: Speci men Type: BLOOD SPECIMENOrdering Facility: [facility] Address: [address] [place] [address] Performed By: #### 4 537-7, 51711-0 ####[facility] LABCLIA [id number] [place] [address] [place] Differential cell count method Nom (Bld) Auto Normal [facility] Comment on above: Order Comment: Speci men Type: BLOOD SPECIMENOrdering Facility: [facility] Address: [address] [place] [address] Performed By: #### 4 537-7, 47365-9 ####[facility] LABCLIA [id number] [place] [address] [place] Eosinophils (Bld) [#/Vol] 0.18 10*3/uL Normal <0.46 [facility] Comment on above: Order Comment: Speci men Type: BLOOD SPECIMENOrdering Facility: [facility] Address: [address] [place] [address] Performed By: #### 4 537-7, 53166-1 ####[facility] LABCLIA [id number] [place] [address] [place] Eosinophils/100 WBC (Bld) 2.3 % Normal [facility] Comment on above: Order Comment: Speci men Type: BLOOD SPECIMENOrdering Facility: [facility] Address: [address] [place] [address] Performed By: #### 4 537-7, 20111-3 ####[facility] LABCLIA [id number] [place] [address] [place] Erythrocyte distribution width (RBC) [Ratio] 13.7 % Normal 11.5-15.0 [facility] Comment on above: Order Comment: Speci men Type: BLOOD SPECIMENOrdering Facility: [facility] Address: [address] [place] [address] Performed By: #### 4 537-7, 35751-0 ####[facility] LABIA [id number] [place] [address] [place] Hematocrit (Bld) [Volume fraction] 36.5 % Normal 36.0-46.0 [facility] Comment on above: Order Comment: Speci men Type: BLOOD SPECIMENOrdering Facility: [facility] Address: [address] [place] [address] Performed By: #### 4 537-7, 27389-0 ####[facility] LABIA [id number] [place] [address] [place] Hemoglobin (Bld) [Mass/Vol] 11.7 g/dL Normal 11.5-15.5 [facility] Comment on above: Order Comment: Speci men Type: BLOOD SPECIMENOrdering Facility: [facility] Address: [address] [place] [address] Performed By: #### 4 537-7, 97605-4 ####[facility] LABCLIA [id number] [place] [address] [place] Immature granulocytes (Bld) [#/Vol] 0.09 10*3/uL Normal <0.10 [facility] Comment on above: Order Comment: Speci men Type: BLOOD SPECIMENOrdering Facility: [facility] Address: [address] [place] [address] Performed By: #### 4 537-7, 06662-9 ####[facility] LABCLIA [id number] [place] [address] [place] Immature granulocytes/100 WBC (Bld) 1.1 % Normal [facility] Comment on above: Order Comment: Speci men Type: BLOOD SPECIMENOrdering Facility: [facility] Address: [address] [place] [address] Performed By: #### 4 537-7, 25454-6 ####[facility] LABCLIA [id number] [place] [address] [place] Lymphocytes (Bld) [#/Vol] 3.92 10*3/uL Normal 1.00-4.00 [facility] Comment on above: Order Comment: Speci men Type: BLOOD SPECIMENOrdering Facility: [facility] Address: [address] [place] [address] Performed By: #### 4 537-7, 12540-3 ####[facility] LABCLIA [id number] [place] [address] [place] Lymphocytes/100 WBC (Bld) 49.2 % Normal [facility] Comment on above: Order Comment: Speci men Type: BLOOD SPECIMENOrdering Facility: [facility] Address: [address] [place] [address] Performed By: #### 4 537-7, 71048-6 ####[facility] LABCLIA [id number] [place] [address] [place] MCH (RBC) [Entitic mass] 26.8 pg Normal 26.0-34.0 [facility] Comment on above: Order Comment: Speci men Type: BLOOD SPECIMENOrdering Facility: [facility] Address: [address] [place] [address] Performed By: #### 4 537-7, 67521-8 ####[facility] LABIA [id number] [place] [address] [place] MCHC (RBC) [Mass/Vol] 32.1 g/dL Normal 30.5-36.0 [facility] Comment on above: Order Comment: Speci men Type: BLOOD SPECIMENOrdering Facility: [facility] Address: [address] [place] [address] Performed By: #### 4 537-7, 88361-5 ####[facility] [id number] [place] [address] [place] MCV (RBC) [Entitic vol] 83.7 fL Normal 80.0-100.0 [facility] Comment on above: Order Comment: Speci men Type: BLOOD SPECIMENOrdering Facility: [facility] Address: [address] [place] [address] Performed By: #### 4 537-7, 15811-4 ####[facility] LABIA [id number] [place] [address] [place] Monocytes (Bld) [#/Vol] 0.65 10*3/uL Normal <0.87 [facility] Comment on above: Order Comment: Speci men Type: BLOOD SPECIMENOrdering Facility: [facility] Address: [address] [place] [address] Performed By: #### 4 537-7, 99992-1 ####[facility] LABIA [id number] [place] [address] [place] Monocytes/100 WBC (Bld) 8.2 % Normal [facility] Comment on above: Order Comment: Speci men Type: BLOOD SPECIMENOrdering Facility: [facility] Address: [address] [place] [address] Performed By: #### 4 537-7, 69403-2 ####[facility] LABCLIA [id number] [place] [address] [place] Neutrophils (Bld) [#/Vol] 3.07 10*3/uL Normal 1.45-7.50 [facility] Comment on above: Order Comment: Speci men Type: BLOOD SPECIMENOrdering Facility: [facility] Address: [address] [place] [address] Performed By: #### 4 537-7, 66450-4 ####[facility] LABCLIA [id number] [place] [address] [place] Neutrophils/100 WBC (Bld) 38.6 % Normal [facility] Comment on above: Order Comment: Speci men Type: BLOOD SPECIMENOrdering Facility: [facility] Address: [address] [place] [address] Performed By: #### 4 537-7, 21550-2 ####[facility] LABCLIA [id number] [place] [address] [place] Nucleated RBC (Bld) [#/Vol] 10*3/uL Normal <0.01 [facility] Comment on above: Order Comment: Speci men Type: BLOOD SPECIMENOrdering Facility: [facility] Address: [address] [place] [address] Performed By: #### 4 537-7, 05571-5 ####[facility] LABCLIA [id number] [place] [address] [place] Nucleated RBC/100 WBC (Bld) [Ratio] 0.0 /100 WBC Normal [facility] Comment on above: Order Comment: Speci men Type: BLOOD SPECIMENOrdering Facility: [facility] Address: [facility] [place] [address] Performed By: #### 4 537-7, 16927-9 ####[facility] LABIA [id number] [place] [address] [place] Platelet mean volume (Bld) [Entitic vol] 10.5 fL Normal 9.0-12.7 [facility] Comment on above: Order Comment: Speci men Type: BLOOD SPECIMENOrdering Facility: [facility] Address: [address] [place] [address] Performed By: #### 4 537-7, 38323-0 ####[facility] LABIA [id number] [place] [address] [place] Platelets (Bld) [#/Vol] 328 10*3/uL Normal 150-400 [facility] Comment on above: Order Comment: Speci men Type: BLOOD SPECIMENOrdering Facility: [facility] Address: [address] [place] [address] Performed By: #### 4 537-7, 54953-3 ####[facility] LABIA [id number] [place] [address] [place] RBC (Bld) [#/Vol] 4.36 10*6/uL Normal 3.90-5.20 [facility] Comment on above: Order Comment: Speci men Type: BLOOD SPECIMENOrdering Facility: [facility] Address: [address] [place] [address] Performed By: #### 4 537-7, 44347-8 ####[facility] LABIA [id number] [place] [address] [place] WBC (Bld) [#/Vol] 7.96 10*3/uL Normal 3.70-11.00 [facility] Comment on above: Order Comment: Speci men Type: BLOOD SPECIMENOrdering Facility: [facility] Address: [address] [place] [address] Performed By: #### 4 537-7, 02853-6 ####[facility] LABCLIA [id number] [place] [id number] [facility] OF DAVID CRP SerPl-mCncon 11-27-2022 CRP [Mass/Vol] 0.4 mg/dL Normal <0.9 [facility] Comment on above: Order Comment: Speci men Type: BLOOD SPECIMENOrdering Facility: [facility] Address: [address] [place] [address] Performed By: #### 1 988-5, 17546-6 ####[facility] LABCLIA [id number] [address] [place] Comprehensive metabolic 2000 panelon 11-27-2022 Albumin [Mass/Vol] 4.0 g/dL 3.9 - 4.9 g/dL [facility] ALP [Catalytic activity/Vol] 77 U/L 34 - 123 U/L [facility] ALT [Catalytic activity/Vol] 66 U/L High 7 - 38 U/L [facility] Anion gap [Moles/Vol] 11 mmol/L 9 - 18 mmol/L [facility] AST [Catalytic activity/Vol] 54 U/L High 13 - 35 U/L [facility] Bilirubin [Mass/Vol] 0.2 mg/dL 0.2 - 1 .3 mg/dL [facility] Calcium [Mass/Vol] 9.1 mg/dL 8.5 - 10. 2 mg/dL [facility] Chloride [Moles/Vol] 98 mmol/L 97 - 10 5 mmol/L [facility] CO2 [Moles/Vol] 24 mmol/L 22 - 30 mmol/L [facility] Creatinine [Mass/Vol] 0.48 mg/dL Low 0.58 - 0.96 mg/dL [facility] Estimated Glomerular Filtration Rate 125 mL/min/1.73m >=60 mL/min/1.73m [facility] Glucose [Mass/Vol] 72 mg/dL Low 74 - 99 mg/dL [facility] Potassium [Moles/Vol] 4.4 mmol/L 3.7 - 5.1 mmol/L [facility] Protein [Mass/Vol] 6.7 g/dL 6.3 - 8.0 g/dL [facility] Sodium [Moles/Vol] 133 mmol/L Low 136 - 144 mmol/L [facility] Urea nitrogen [Mass/Vol] 8 mg/dL 7 - 21 mg/dL [facility] Albumin [Mass/Vol] 4.0 g/dL Normal 3.9-4.9 [facility] Comment on above: Order Comment: Speci men Type: BLOOD SPECIMENOrdering Facility: [facility] Address: [address] [place] [address] Performed By: #### 1 988-5, 56916-5 ####[facility] LABCLIA [id number] [place] [address] [place] ALP [Catalytic activity/Vol] 77 U/L Normal 34-123 [facility] Comment on above: Order Comment: Speci men Type: BLOOD SPECIMENOrdering Facility: [facility] Address: [address] [place] [address] Performed By: #### 1 988-5, 67582-5 ####[facility] LABIA [id number] [place] [id number] [place] ALT [Catalytic activity/Vol] 66 U/L High 7-38 [facility] Comment on above: Order Comment: Speci men Type: BLOOD SPECIMENOrdering Facility: [facility] Address: [address] [place] [address] Performed By: #### 1 988-5, 89197-0 ####[facility] LABCLIA [id number] [place] [id number] [place] Anion gap [Moles/Vol] 11 mmol/L Normal 9-18 [facility] Comment on above: Order Comment: Speci men Type: BLOOD SPECIMENOrdering Facility: [facility] Address: [address] [place] [id number] Performed By: #### 1 988-5, 61784-3 ####[facility] LABCLIA [id number] [address] [address] [place] AST [Catalytic activity/Vol] 54 U/L High 13-35 [facility] Comment on above: Order Comment: Speci men Type: BLOOD SPECIMENOrdering Facility: [facility] Address: [address] [place] [address] Performed By: #### 1 988-5, 41409-3 ####[facility] LABCLIA [id number] [place] [address] [place] Bilirubin [Mass/Vol] 0.2 mg/dL Normal 0.2-1.3 [facility] Comment on above: Order Comment: Speci men Type: BLOOD SPECIMENOrdering Facility: [facility] Address: [address] [place] [address] Performed By: #### 1 988-5, 52170-6 ####[facility] LABCLIA [id number] [place] [address] [place] Calcium [Mass/Vol] 9.1 mg/dL Normal 8.5-10.2 [facility] Comment on above: Order Comment: Speci men Type: BLOOD SPECIMENOrdering Facility: [facility] Address: [address] [place] [address] Performed By: #### 1 988-5, ####[facility] LABCLIA [id number] [place] [address] [place] Chloride [Moles/Vol] 98 mmol/L Normal 97-105 [facility] Comment on above: Order Comment: Speci men Type: BLOOD SPECIMENOrdering Facility: [facility] Address: [address] [place] [address] Performed By: #### 1 988-5, ####[facility] LABCLIA [id number] [place] [address] [place] CO2 [Moles/Vol] 24 mmol/L Normal 22-30 [facility] Comment on above: Order Comment: Speci men Type: BLOOD SPECIMENOrdering Facility: [facility] Address: [address] [place] [address] Performed By: #### 1 988-5, 81146-1 ####[facility] LABIA [id number] [place] [id number] [place] Creatinine [Mass/Vol] 0.48 mg/dL Low 0.58-0.96 [facility] Comment on above: Order Comment: Speci men Type: BLOOD SPECIMENOrdering Facility: [facility] Address: [address] [place] [address] Performed By: #### 1 988-5, 45612-2 ####[facility] LABIA [id number] [place] [address] [place] Creatinine and Glomerular filtration rate.predicted panel (S/P/Bld) 125 mL/min/1.73m??? Normal >=60 [facility] Comment on above: Order Comment: Shaneka men Type: BLOOD SPECIMENOrdering Facility: [facility] Address: [address] [place] [address] Result Comment: Polly mated Glomerular Filtration Rate (eGFR) is calculated using the 2020 CKD-EPI creatinine equation. This equation utilizes serum creatinine, sex, and age as parameters. The creatinine assay has traceable calibration to isotope dilution-mass spectrometry. Refer to KDIGO guidelines for clinical interpretation. In patients with unstable renal function, e.g. those with acute kidney injury, the eGFR may not accurately reflect actual GFR. Performed By: #### 1 988-5, 30517-9 ####[facility] LABIA [id number] [place] [id number] [place] Glucose [Mass/Vol] 72 mg/dL Low 74-99 [facility] Comment on above: Order Comment: Shaneka montemayor Type: BLOOD SPECIMENOrdering Facility: [facility] Address: [address] [place] [address] Result Comment: The [place] Diabetes Association (ADA) provides guidance for cutoff values for fasting glucose and random glucose. The ADA defines fasting as no caloric intake for at least 8 hours. Fasting plasma glucose results between 100 to 125 mg/dL indicate increased risk for diabetes (prediabetes). Fasting plasma glucose results greater than or equal to 126 mg/dL meet the criteria for diagnosis of diabetes. In the absence of unequivocal hyperglycemia, results should be confirmed by repeat testing. In a patient with classic symptoms of hyperglycemia or hyperglycemic crisis, random plasma glucose results greater than or equal to 200 mg/dL meet the criteria for diagnosis of diabetes. Reference: Standards of Medical Care in Diabetes 2016, [place] Diabetes Association. Diabetes Care. 2016.39(Suppl 1). Performed By: #### 1 988-5, ####[facility] LABCLIA [id number] [place] [address] [place] Potassium [Moles/Vol] 4.4 mmol/L Normal 3.7-5.1 [facility] Comment on above: Order Comment: Speci men Type: BLOOD SPECIMENOrdering Facility: [facility] Address: [address] [place] [address] Performed By: #### 1 988-5, ####[facility] LABCLIA [id number] [place] [address] [place] Protein [Mass/Vol] 6.7 g/dL Normal 6.3-8.0 [facility] Comment on above: Order Comment: Speci men Type: BLOOD SPECIMENOrdering Facility: [facility] Address: [address] [place] [address] Performed By: #### 1 988-5, ####[facility] LABCLIA [id number] [place] [address] [place] Sodium [Moles/Vol] 133 mmol/L Low 136-144 [facility] Comment on above: Order Comment: Speci men Type: BLOOD SPECIMENOrdering Facility: [facility] Address: [address] [place] [address] Performed By: #### 1 988-5, ####[facility] LABCLIA [id number] [address] [place] Urea nitrogen [Mass/Vol] 8 mg/dL Normal 7-21 [facility] Comment on above: Order Comment: Speci men Type: BLOOD SPECIMENOrdering Facility: [facility] Address: [address] [place] [address] Performed By: #### 1 988-5, 06355-2 ####[facility] LABIA [id number] [place] [address] [place] ESR Westergren method (Bld) [Velocity]on 11-27-2022 ESR (Bld) [Velocity] 20 mm/h 0 - 20 mm/hr Cl [facility] ESR (Bld) [Velocity] 20 mm/h Normal 0-20 [facility] Comment on above: Order Comment: Speci men Type: BLOOD SPECIMENOrdering Facility: [facility] Address: [address] [place] [address] Performed By: #### 4 537-7, 56875-0 ####[facility] [id number] [address] [place] CNPAngelica 11-25-2022 ANTHONYN Telephone ([place]) ANY LUDWIG ([id number]) 1985 F Date Time Provider Department 11/25/22 [facility] LESLIE CALL[facility]AN During your visit today, we recorded the following information about you: Yessy Galarza 11/25/2022 10:42 AM Signed LMOM for patient to call the office if she is able to move from Fri to Thur. Please warm transfer to Racheal Lenz 11/26/2022 4:41 PM Signed Patient returned call at 4:40pm. Attempted to reach office. No answer. Patient will be there on 11/27 as scheduled. Allergies As of Date: 11/25/2022 Noted Allergy Reaction AVSOLA (INFLIXIMAB-AXXQ) 10/22/2022 10 - Anaphylaxis Comments: Adverse reaction, chest tightness, shortness of breath and trouble breathing Date Reviewed: 10/22/2022 Reviewed by: Na Arevalo, VALORIE - Fully Assessed Prescriptions as of 11/26/2022 - predniSONE (DELTASONE) 5 mg tablet Take 2 tablets by mouth once daily for 14 days, THEN 1 tablet once daily for 14 days. With breakfast. Then stop. No other nsaids.. - VYVANSE 40 mg capsule Take 1 capsule by mouth every afternoon. - albuterol HFA (PROVENTIL HFA, VENTOLIN HFA) 90 mcg/actuation inhaler INHALE 1 PUFF EVERY 6 HOURS NEEDED FOR SHORTNESS OF BREATH OR WHEEZING - venlafaxine ER (EFFEXOR XR) 37.5 mg 24 hr capsule Take 1 capsule by mouth every afternoon. - triamcinolone acetonide (KENALOG) 0.1 % ointment APPLY TWICE A DAY TO THE AFFECTED AREA OF THE ELBOW - leflunomide (ARAVA) 10 mg tablet Take 1 tablet by mouth once daily. - ergocalciferol 50,000 unit capsule (VITAMIN D2, DRISDOL) Take 1 capsule by mouth two times a week. (FOR EXAMPLE ONE CAPSULE ON WEDNESDAY AND ONE ON WEDNESDAY) FOR A TOTAL OF 8 WEEKS, WITH A MEAL - gabapentin (NEURONTIN) 600 mg tablet TAKE 1 TABLET BY MOUTH 3 TIMES A DAY FOR ANXIETY - Cholecalciferol, Vitamin D3, (VITAMIN D) 25 mcg (1,000 unit) cap Take 2 capsules by mouth once daily. - buprenorphine-naloxon e (SUBOXONE) 8-2 mg film Dissolve under the tongue once daily. Prescribed by outside physician Problem List As Of Date 11/25/2022 Noted Resolved Vitamin D deficiency [E55.9] 04/23/2017 Cyclic citrullinated peptide (CCP) antibody pos*12/30/2017 Rheumatoid factor positive [R76.8] 12/30/2017 Seropositive rheumatoid arthritis (HCC) [M05.9] 12/30/2017 Smokes and motivated to quit [F17.200] 12/30/2017 Encounter Status:Closed by SERGIOLT ORTIZYESSY on 11/25/22 [facility] 11-17-2022 [facility] ANY LUDWIG ([id number]) 1985 F Date Time Provider Department 11/17/22 FARIBA HILL [facility] During your visit today, we recorded the following information about you: JoaquínBlayneRacquel lakhani 11/17/2022 2:05 PM Signed === PHARMACY TEAM ==== ADDITIONAL INFORMATION NEEDED/REQUESTED Case Submitted: Yes Request Type: Payor Date of Service: 11/27/2022 Additional Information Needed: I. payer requesting clinical documentation showing pt has had an inadequate response to Methotrexate titrated to maximal tolerate dosing Request from Payor by: Fax Email Sent to: [employer] workflow tel enc Requested Clinicals/Information Sent: N/A Fariba Hill APRN.[facility] 11/17/2022 3:24 PM Signed Patient has never been on mtx prior She has hx non compliance and high risk behavior history Can I do a peer to peer Fariba Hill APRN.[facility] 11/18/2022 10:12 AM Addendum Chart notes to reflect why we are not using mtx Please submit Fariba Hill APRN.CNP 11/23/2022 8:22 PM Signed Please check on this Elizabeth Shelton LPN 11/24/2022 8:08 AM Signed [place] auth approved. Scheduled for 11/27/22 as reflected in appointments. Allergies As of Date: 11/17/2022 Noted Allergy Reaction AVSOLA (INFLIXIMAB-AXXQ) 10/22/2022 10 - Anaphylaxis Comments: Adverse reaction, chest tightness, shortness of breath and trouble breathing Date Reviewed: 10/22/2022 Reviewed by: Na Arevalo RN - Fully Assessed Reason for Visit: Insurance Inquiry [4162] Cmt: Prior Auth Delayed: Additional Info Needed(actemra) Prescriptions as of 11/24/2022 - predniSONE (DELTASONE) 5 mg tablet Take 2 tablets by mouth once daily for 14 days, THEN 1 tablet once daily for 14 days. With breakfast. Then stop. No other nsaids.. - VYVANSE 40 mg capsule Take 1 capsule by mouth every afternoon. - albuterol HFA (PROVENTIL HFA, VENTOLIN HFA) 90 mcg/actuation inhaler INHALE 1 PUFF EVERY 6 HOURS NEEDED FOR SHORTNESS OF BREATH OR WHEEZING - venlafaxine ER (EFFEXOR XR) 37.5 mg 24 hr capsule Take 1 capsule by mouth every afternoon. - triamcinolone acetonide (KENALOG) 0.1 % ointment APPLY TWICE A DAY TO THE AFFECTED AREA OF THE ELBOW - leflunomide (ARAVA) 10 mg tablet Take 1 tablet by mouth once daily. - ergocalciferol 50,000 unit capsule (VITAMIN D2, DRISDOL) Take 1 capsule by mouth two times a week. (FOR EXAMPLE ONE CAPSULE ON WEDNESDAY AND ONE ON WEDNESDAY) FOR A TOTAL OF 8 WEEKS, WITH A MEAL - gabapentin (NEURONTIN) 600 mg tablet TAKE 1 TABLET BY MOUTH 3 TIMES A DAY FOR ANXIETY - Cholecalciferol, Vitamin D3, (VITAMIN D) 25 mcg (1,000 unit) cap Take 2 capsules by mouth once daily. - buprenorphine-naloxon e (SUBOXONE) 8-2 mg film Dissolve under the tongue once daily. Prescribed by outside physician Problem List As Of Date 11/17/2022 Noted Resolved Vitamin D deficiency [E55.9] 04/23/2017 Cyclic citrullinated peptide (CCP) antibody pos*12/30/2017 Rheumatoid factor positive [R76.8] 12/30/2017 Seropositive rheumatoid arthritis (HCC) [M05.9] 12/30/2017 Smokes and motivated to quit [F17.200] 12/30/2017 Encounter Status:Closed by FARIBA HILL on 11/18/22 [facility] 11-11-2022 SUNITA Telephone ([place]) ANY LUWDIG ([id number]) 1985 F Date Time Provider Department 11/11/22 JUAN DANIEL LEOS During your visit today, we recorded the following information about you: Sergio OrtizYessy 11/11/2022 11:56 AM Signed Insurance hasn't approved 11/12/2022 infusion appointment. Called and LMOM that her appointment needed to be moved since insurance hasn't approved yet. Rescheduled for 11/27/2022, asked patient to call us back. Please warm transfer to [facility] Allergies As of Date: 11/11/2022 Noted Allergy Reaction AVSOLA (INFLIXIMAB-AXXQ) 10/22/2022 10 - Anaphylaxis Comments: Adverse reaction, chest tightness, shortness of breath and trouble breathing Date Reviewed: 10/22/2022 Reviewed by: Na rAevalo, RN - Fully Assessed Prescriptions as of 11/11/2022 - VYVANSE 40 mg capsule Take 1 capsule by mouth every afternoon. - albuterol HFA (PROVENTIL HFA, VENTOLIN HFA) 90 mcg/actuation inhaler INHALE 1 PUFF EVERY 6 HOURS NEEDED FOR SHORTNESS OF BREATH OR WHEEZING - venlafaxine ER (EFFEXOR XR) 37.5 mg 24 hr capsule Take 1 capsule by mouth every afternoon. - triamcinolone acetonide (KENALOG) 0.1 % ointment APPLY TWICE A DAY TO THE AFFECTED AREA OF THE ELBOW - leflunomide (ARAVA) 10 mg tablet Take 1 tablet by mouth once daily. - ergocalciferol 50,000 unit capsule (VITAMIN D2, DRISDOL) Take 1 capsule by mouth two times a week. (FOR EXAMPLE ONE CAPSULE ON WEDNESDAY AND ONE ON WEDNESDAY) FOR A TOTAL OF 8 WEEKS, WITH A MEAL - gabapentin (NEURONTIN) 600 mg tablet TAKE 1 TABLET BY MOUTH 3 TIMES A DAY FOR ANXIETY - Cholecalciferol, Vitamin D3, (VITAMIN D) 25 mcg (1,000 unit) cap Take 2 capsules by mouth once daily. - buprenorphine-naloxon e (SUBOXONE) 8-2 mg film Dissolve under the tongue once daily. Prescribed by outside physician Problem List As Of Date 11/11/2022 Noted Resolved Vitamin D deficiency [E55.9] 04/23/2017 Cyclic citrullinated peptide (CCP) antibody pos*12/30/2017 Rheumatoid factor positive [R76.8] 12/30/2017 Seropositive rheumatoid arthritis (HCC) [M05.9] 12/30/2017 Smokes and motivated to quit [F17.200] 12/30/2017 Encounter Status:Closed by YESSY GALARZA on 11/11/22 [facility] CNPN Telephone (4CQ) ANY LUDWIG ([id number]) 1985 F Date Time Provider Department 11/11/22 TINO BLAKE 4CQ During your visit today, we recorded the following information about you: CesarkristenMars 11/11/2022 12:50 PM Signed Patient calling to ask questions re: infusion that was supposed to be for 11/12 but was cancelled due to no approval yet from insurance Please call patient back at [phone] Mars Eduarda November 11, 2022 12:49 PM Fariba Hill, [place].[facility] 11/12/2022 9:39 AM Signed Please call patient Steriod taper sent to the pharmacy please update patient Josefina Randloph MA 11/12/2022 11:35 AM Signed Left message for patient to call office regarding below. Elizabeth Shelton LPN 11/13/2022 10:21 AM Signed Left VM that steroid has been sent to pharmacy. Racheal Jensen 11/16/2022 10:36 AM Signed Med went to Mail Order Pharmacy. Patient wants this at [facility] in [place]. Please transfer today as she has been waiting since 11/13 for this. Thank you. She would like a call as soon as it is sent so she can go get it. May leave a message [phone]. Lori Silver MA 11/16/2022 12:54 PM Signed Addended by: LORI SLIVER on: 11/16/2022 12:54 PM Modules accepted: Orders Allergies As of Date: 11/11/2022 Noted Allergy Reaction AVSOLA (INFLIXIMAB-AXXQ) 10/22/2022 10 - Anaphylaxis Comments: Adverse reaction, chest tightness, shortness of breath and trouble breathing Date Reviewed: 10/22/2022 Reviewed by: Na Arevalo, VALORIE - Fully Assessed Primary Visit Diagnosis:Smokes and motivated to quit [F17.200] Other Visit Diagnosis:Seropositiv e rheumatoid arthritis (HCC) [M05.9] Order(s):predniSONE (DELTASONE) 5 mg tabletTake 2 tablets by mouth once daily for 14 days, THEN 1 tablet once daily for 14 days. With breakfast. Then stop. No other nsaids..Disp: 42 tabletRfl: 0 CBC + DIFF [SQCBCDIF] Order #: [id number] FUTURE COMP METABOLIC PANEL [SQCMP] Order #: [id number] FUTURE C-REACTIVE PROTEIN (CRP) [SQCRP] Order #: [id number] FUTURE SED RATE WESTERGREN [SQWSR] Order #: [id number] FUTURE Prescriptions as of 11/16/2022 - predniSONE (DELTASONE) 5 mg tablet Take 2 tablets by mouth once daily for 14 days, THEN 1 tablet once daily for 14 days. With breakfast. Then stop. No other nsaids.. - VYVANSE 40 mg capsule Take 1 capsule by mouth every afternoon. - albuterol HFA (PROVENTIL HFA, VENTOLIN HFA) 90 mcg/actuation inhaler INHALE 1 PUFF EVERY 6 HOURS NEEDED FOR SHORTNESS OF BREATH OR WHEEZING - venlafaxine ER (EFFEXOR XR) 37.5 mg 24 hr capsule Take 1 capsule by mouth every afternoon. - triamcinolone acetonide (KENALOG) 0.1 % ointment APPLY TWICE A DAY TO THE AFFECTED AREA OF THE ELBOW - leflunomide (ARAVA) 10 mg tablet Take 1 tablet by mouth once daily. - ergocalciferol 50,000 unit capsule (VITAMIN D2, DRISDOL) Take 1 capsule by mouth two times a week. (FOR EXAMPLE ONE CAPSULE ON WEDNESDAY AND ONE ON WEDNESDAY) FOR A TOTAL OF 8 WEEKS, WITH A MEAL - gabapentin (NEURONTIN) 600 mg tablet TAKE 1 TABLET BY MOUTH 3 TIMES A DAY FOR ANXIETY - Cholecalciferol, Vitamin D3, (VITAMIN D) 25 mcg (1,000 unit) cap Take 2 capsules by mouth once daily. - buprenorphine-naloxon e (SUBOXONE) 8-2 mg film Dissolve under the tongue once daily. Prescribed by outside physician Problem List As Of Date 11/11/2022 Noted Resolved Vitamin D deficiency [E55.9] 04/23/2017 Cyclic citrullinated peptide (CCP) antibody pos*12/30/2017 Rheumatoid factor positive [R76.8] 12/30/2017 Seropositive rheumatoid arthritis (HCC) [M05.9] 12/30/2017 Smokes and motivated to quit [F17.200] 12/30/2017 Prescriptions ordered this encounter Disp Refills Start End PREDNISONE 5 MG TABLET 42 t* 0 11/12/2022 12/09/2022 Route: ORAL Sig: Take 2 tablets by mouth once daily for 14 days, THEN 1 tablet once daily for 14 days. With breakfast. Then stop. No other nsaids.. Medications Discontinued During This Encounter Prescriptions - predniSONE (DELTASONE) 5 mg tablet (Discontinued) Take 2 tablets by mouth once daily for 14 days, THEN 1 tablet once daily for 14 days. With breakfast. Then stop. No other nsaids.. Encounter Status:Closed by ELIZABETH SHELTON on 11/13/22 Normal [facility] 25(OH)D3 Mor[place] 2022 25-hydroxyvitamin D3 [Mass/Vol] 46.8 ng/mL Normal 31.0-80.0 [facility] Comment on above: Order Comment: Speci men Type: BLOOD SPECIMENOrdering Facility: [facility] Address: [facility] [place] [address] Result Comment: Clas sification of 25 [place] Vitamin D status: Deficiency/Insufficiency: < or = 30 ng/ml. Sufficiency/Optimal Levels: 31-80 ng/mL Toxicity: > 100 ng/mL. Test performed by chemiluminescent immunoassay. Performed By: #### 1 989-3 ####[facility] LABCLIA [id number] [place] [id number] [place] C-REACTIVE PROTEIN (CRP)on 0 10-22-2022 CRP [Mass/Vol] <0.9 mg/dL [facility] CBC W Auto Differential pane l (Bld)on 10-22-2022 Basophils (Bld) [#/Vol] 0.04 10*3/uL <0.11 k/uL [facility] Basophils/100 WBC (Bld) 0.6 % [facility] Differential cell count method Nom (Bld) Auto [facility] Eosinophils (Bld) [#/Vol] 0.11 10*3/uL <0.46 k/uL [facility] Eosinophils/100 WBC (Bld) 1.8 % [facility] Erythrocyte distribution width (RBC) [Ratio] 13.5 % 11.5 - 15.0 % [facility] Hematocrit (Bld) [Volume fraction] 36.9 % 36.0 - 46.0 % [facility] Hemoglobin (Bld) [Mass/Vol] 11.9 g/dL 11.5 - 15.5 g/dL [facility] Immature granulocytes (Bld) [#/Vol] <0.10 k/uL [facility] Immature granulocytes/100 WBC (Bld) 0.2 % [facility] Lymphocytes (Bld) [#/Vol] 3.08 10*3/uL 1.00 - 4.00 k/uL [facility] Lymphocytes/100 WBC (Bld) 49.3 % [facility] MCH (RBC) [Entitic mass] 26.7 pg 26.0 - 34.0 pg [facility] MCHC (RBC) [Mass/Vol] 32.2 g/dL 30.5 - 36.0 g/dL [facility] MCV (RBC) [Entitic vol] 82.9 fL 80.0 - 100.0 fL [facility] Monocytes (Bld) [#/Vol] 0.50 10*3/uL <0.87 k/uL [facility] Monocytes/100 WBC (Bld) 8.0 % [facility] Neutrophils (Bld) [#/Vol] 2.51 10*3/uL 1.45 - 7.50 k/uL [facility] Neutrophils/100 WBC (Bld) 40.1 % [facility] Nucleated RBC (Bld) [#/Vol] <0.01 k/uL [facility] Nucleated RBC/100 WBC (Bld) [Ratio] 0.0 /100 WBC [facility] Platelet mean volume (Bld) [Entitic vol] 11.5 fL 9.0 - 12.7 fL [facility] Platelets (Bld) [#/Vol] 235 10*3/uL 150 - 400 k/uL [facility] RBC (Bld) [#/Vol] 4.45 10*6/uL 3.90 - 5.2 0 m/uL [facility] WBC (Bld) [#/Vol] 6.25 10*3/uL 3.70 - 11. 00 k/uL [facility] Basophils (Bld) [#/Vol] 0.04 10*3/uL Normal <0.11 [facility] Comment on above: Order Comment: Speci men Type: BLOOD SPECIMENOrdering Facility: [facility] Address: [address] [place] [address] Performed By: #### 5 7021-8, 7 ####[facility] LABIA [id number] [place] [address] [place] Basophils/100 WBC (Bld) 0.6 % Normal [facility] Comment on above: Order Comment: Speci men Type: BLOOD SPECIMENOrdering Facility: [facility] Address: [address] [place] [address] Performed By: #### 5 7021-8, 7 ####[facility] LABCLIA [id number] [place] [address] [place] Differential cell count method Nom (Bld) Auto Normal [facility] Comment on above: Order Comment: Speci men Type: BLOOD SPECIMENOrdering Facility: [facility] Address: [address] [place] [address] Performed By: #### 5 7021-8, 7-7 ####[facility] LABCLIA [id number] [place] [address] [place] Eosinophils (Bld) [#/Vol] 0.11 10*3/uL Normal <0.46 [facility] Comment on above: Order Comment: Speci men Type: BLOOD SPECIMENOrdering Facility: [facility] Address: [address] [place], [place] [address] Performed By: #### 5 7021-8, 4536-7 ####[facility] LABCLIA [id number] [place] [address] [place] Eosinophils/100 WBC (Bld) 1.8 % Normal [facility] Comment on above: Order Comment: Speci men Type: BLOOD SPECIMENOrdering Facility: [facility] Address: [address] [place], [place] [address] Performed By: #### 5 7021-8, 4536-7 ####[facility] LABCLIA [id number] [place] [address] [place] Erythrocyte distribution width (RBC) [Ratio] 13.5 % Normal 11.5-15.0 [facility] Comment on above: Order Comment: Speci men Type: BLOOD SPECIMENOrdering Facility: [facility] Address: [address] [place], [place] [address] Performed By: #### 5 7021-8, 4536-7 ####[facility] LABIA [id number] [place] [address] [place] Hematocrit (Bld) [Volume fraction] 36.9 % Normal 36.0-46.0 [facility] Comment on above: Order Comment: Speci men Type: BLOOD SPECIMENOrdering Facility: [facility] Address: [address] [place], [place] [address] Performed By: #### 5 7021-8, 4536-7 ####[facility] LABCLIA [id number] [place] [address] [place] Hemoglobin (Bld) [Mass/Vol] 11.9 g/dL Normal 11.5-15.5 [facility] Comment on above: Order Comment: Speci men Type: BLOOD SPECIMENOrdering Facility: [facility] Address: [address] [address] Performed By: #### 5 7021-8, 4536-7 ####[facility] LABCLIA [id number] [place] [address] [place] Immature granulocytes (Bld) [#/Vol] 10*3/uL Normal <0.10 [facility] Comment on above: Order Comment: Speci men Type: BLOOD SPECIMENOrdering Facility: [facility] Address: [address] [address] Performed By: #### 5 7021-8, 453-7 ####[facility] LABCLIA [id number] [place] [address] [place] Immature granulocytes/100 WBC (Bld) 0.2 % Normal [facility] Comment on above: Order Comment: Speci men Type: BLOOD SPECIMENOrdering Facility: [facility] Address: [address] [place] [address] Performed By: #### 5 7021-8, 7 ####[facility] LABCLIA [id number] [place] [address] [place] Lymphocytes (Bld) [#/Vol] 3.08 10*3/uL Normal 1.00-4.00 [facility] Comment on above: Order Comment: Speci men Type: BLOOD SPECIMENOrdering Facility: [facility] Address: [address] Performed By: #### 5 7021-8, 4536-7 ####[facility] LABCLIA [id number] [place] [address] [place] Lymphocytes/100 WBC (Bld) 49.3 % Normal [facility] Comment on above: Order Comment: Speci men Type: BLOOD SPECIMENOrdering Facility: [facility] Address: [address] [address] Performed By: #### 5 7021-8, 4536-7 ####[facility] [id number] [address] STATES [facility] MCH (RBC) [Entitic mass] 26.7 pg Normal 26.0-34.0 [facility] Comment on above: Order Comment: Speci men Type: BLOOD SPECIMENOrdering Facility: [facility] Address: [address] [place] [address] Performed By: #### 5 7021-8, 7 ####[facility] [id number] [address] [place] MCHC (RBC) [Mass/Vol] 32.2 g/dL Normal 30.5-36.0 [facility] Comment on above: Order Comment: Speci men Type: BLOOD SPECIMENOrdering Facility: [facility] Address: [address] [place] [address] Performed By: #### 5 7021-8, 7 ####[facility] [id number] [place] [address] [place] MCV (RBC) [Entitic vol] 82.9 fL Normal 80.0-100.0 [facility] Comment on above: Order Comment: Speci men Type: BLOOD SPECIMENOrdering Facility: [facility] Address: [address] [place] [address] Performed By: #### 5 7021-8, 7 ####[facility] [id number] [place] [address] [place] Monocytes (Bld) [#/Vol] 0.50 10*3/uL Normal <0.87 [facility] Comment on above: Order Comment: Speci men Type: BLOOD SPECIMENOrdering Facility: [facility] Address: [address] Performed By: #### 5 7021-8, 7 ####[facility] LABCLIA [id number] [place] [address] [place] Monocytes/100 WBC (Bld) 8.0 % Normal [facility] Comment on above: Order Comment: Speci men Type: BLOOD SPECIMENOrdering Facility: [facility] Address: [address] [place] [address] Performed By: #### 5 7021-8, 7 ####[facility] LABCLIA [id number] [place] [address] [place] Neutrophils (Bld) [#/Vol] 2.51 10*3/uL Normal 1.45-7.50 [facility] Comment on above: Order Comment: Speci men Type: BLOOD SPECIMENOrdering Facility: [facility] Address: [address] [place] [address] Performed By: #### 5 7021-8, 7 ####[facility] LABCLIA [id number] [place] [address] [place] Neutrophils/100 WBC (Bld) 40.1 % Normal [facility] Comment on above: Order Comment: Speci men Type: BLOOD SPECIMENOrdering Facility: [facility] Address: [address] [place] [address] Performed By: #### 5 7021-8, 7 ####[facility] LABCLIA [id number] [place] [address] [place] Nucleated RBC (Bld) [#/Vol] 10*3/uL Normal <0.01 [facility] Comment on above: Order Comment: Speci men Type: BLOOD SPECIMENOrdering Facility: [facility] Address: [address] [place] [address] Performed By: #### 5 7021-8, 4536-7 ####[facility] LABCLIA [id number] [place] [address] [place] Nucleated RBC/100 WBC (Bld) [Ratio] 0.0 /100 WBC Normal [facility] Comment on above: Order Comment: Speci men Type: BLOOD SPECIMENOrdering Facility: [facility] Address: [address] [place], [place] [address] Performed By: #### 5 7021-8, 4537-7 ####[facility] LABCLIA [id number] [place] [address] [place] Platelet mean volume (Bld) [Entitic vol] 11.5 fL Normal 9.0-12.7 [facility] Comment on above: Order Comment: Speci men Type: BLOOD SPECIMENOrdering Facility: [facility] Address: [address] [place], [place] [address] Performed By: #### 5 7021-8, 4537-7 ####[facility] LABCLIA [id number] [place] [address] [place] Platelets (Bld) [#/Vol] 235 10*3/uL Normal 150-400 [facility] Comment on above: Order Comment: Speci men Type: BLOOD SPECIMENOrdering Facility: [facility] Address: [address] [place] [address] Performed By: #### 5 7021-8, 7-7 ####[facility] LABCLIA [id number] [place] [address] [place] RBC (Bld) [#/Vol] 4.45 10*6/uL Normal 3.90-5.20 [facility] Comment on above: Order Comment: Speci men Type: BLOOD SPECIMENOrdering Facility: [facility] Address: [address] [place], [place] [address] Performed By: #### 5 7021-8, 7-7 ####[facility] LABCLIA [id number] [place] [address] [place] WBC (Bld) [#/Vol] 6.25 10*3/uL Normal 3.70-11.00 [facility] Comment on above: Order Comment: Speci men Type: BLOOD SPECIMENOrdering Facility: [facility] Address: [address] [place] [address] Performed By: #### 5 7021-8, 4537-7 ####[facility] LABCLIA [id number] [id number] [id number] [facility] CNOVon 10-22-2022 CNOV Office Visit (MARK ) ANY LUDWIG ([id number]) 1985 F Date Time Provider Department 10/22/22 9:00 AM FARIBA HILL During your visit today, we recorded the following information about you: Temperature Pulse Blood pressure Last Period 96.9 degrees 69/minute 116/79 09/23/22 Fariba Hill, BUSINESS OPERATIONS MANAGER.BOILERMAKING SUPERVISOR 11/18/2022 7:59 AM Addendum FOLLOW UP VISIT-in person PCP: Tino Blake MD [facility] [place] [address] Ms. Ludwig is a 37 year old patient here today for follow up of RA Interim History: Doing ok Feels infliximab infusion working well When closer to time to have infusion feels more pains Wrists and right foot Swelling in bilateral wrists Swelling in right foot Has not completed xray feet Pain in left elbow since yesterday Am stiffness - 1-2 hours Worse with weather changes Pain -6/10 Going job interviews- so excited No infections No illness Feeling good today Some fatigue Went to ER 08/14 and 09/13 for toe swelling Completed xray Not taking vit d - does better on RX Infliximab every 5 weeks Arava 10mg daily Had tubal ligation She is cutting down on smoking REVIEW OF SYSTEMS: Review of Systems CONSTITUTION: Negative for: Weight loss or gain, Fever. Chills, Night sweats HEENT: Negative for: Nosebleeds, Mouth sores, Trouble swallowing, Dry mouth RESPIRATORY: Negative for: Cough, Shortness of breath, Pain with breathing and Coughing up blood GASTROINTESTINAL: Negative for: Melena, Diarrhea, Abdominal pain, Heartburn, MUSCULOSKELETAL: Positive for: Arthralgias, Joint swelling and Morning Joint Stiffness Negative for: Muscle weakness NEUROLOGICAL: Positive for: Numbness (numbness in right hand where she has inflammation, none on exam ) SKIN: Negative for: Rashes, Sun sensitive rashes, Skin color changes, Hair loss, Nail changes EYES: Negative for: Eye pain, Eye redness, Visual disturbance, Eye dryness CARDIOVASCULAR: Negative for: Chest pain, Leg swelling, Arrhythmia, Presyncope GENITOURINARY: Negative for: Dysuria, Hematuria, Ulceration HEMATOLOGIC/LYMPHATIC : Negative for: Swollen glands Past Medical Hx, Past Surgical Hx. Social Hx and Family Hx: unchanged ACTIVE PROBLEM LIST Cyclic Citrullinated Peptide (Ccp) Antibody Positive - 12/30/2017 Rheumatoid Factor Positive - 12/30/2017 Seropositive Rheumatoid Arthritis (Hcc) - 12/30/2017 Smokes and Motivated to Quit - 12/30/2017 Comment: Counseled on cessation Vitamin D Deficiency - 04/23/2017 PHYSICAL EXAMINATION: BP 116/79 Pulse 69 Temp 36.1 ?C (96.9 ?F) LMP 09/23/2022 (Approximate) SpO2 98% GENERAL: alert and appropriate, in no distress, well-hydrated, well nourished and happy, smiling, interactive SKIN: no rash noted HEAD: normocephalic, no abnormality or lesion noted EYES: no injection and visual acuity is grossly normal EARS: hearing grossly normal No apparent nasal bridge collapse, no cartilage swelling, no parotid gland swelling. NOSE: external nose normal without rhinorrhea OROPHARYNX: moist mucus membranes NECK: full ROM, no cervical LNs noted RESPIRATORY: breathing non-labored CHEST: clear lung sounds ABDOMEN: soft and non-tender MUSCULOSKELETAL : nodules on b/l wrist unchanged no apparent joint effusion or synovitis Swollen joints- Swelling left foot MTP- imporved, b/l wrist R>L trace improving, right 2nd toe Tender joints - Swelling left foot MTP- improved , bottom right foot, b/l wrist No tenderness with percussion over long bones-femur/tibia b/l EXTREMITIES: FROM NEUROLOGIC: no obvious deficit Prior Test results discussed with patient. IMPRESSION/DIAGNOSIS: M05.9 Seropositive rheumatoid arthritis (HCC) (primary encounter diagnosis) M65.9 Synovitis E55.9 Vitamin D deficiency Z51.81, Z79.899 Encounter for monitoring leflunomide therapy Z71.89 Encounter for medication review and counseling Z71.2 Encounter to discuss test results Z71.89 Counseling on health promotion and disease prevention F17.200 Smoker Rheumatoid Arthritis Sero-positive, RF, CCP Non-erosive Per Dr. Pandya last note At last visit the patient's Rheumatoid Arthritis appears to be active and worse since last visit and since being off DMARDs. She has not followed up since 2019. She has been off RA medications for 1.5 years. Stopped Arava and xejanz in 2019. She reports only took Xeljanz for the 30 day free supply. She did not follow up on the [employer] program, was unclear when asked. With patient's drug addition history, would have to defer from self injectables and needles at home. Due to her problems with transportation and lives far, she is unable to receive IV infusions. She is planning to follow up with local cryogenics engineer closer to home. Until she has her apt, we offered assistance with her RA care and follow up apt (more content not included)... Normal [facility] CRP SerPl-mCncon 10-22-2022 CRP [Mass/Vol] mg/L Normal <0.9 [facility] Comment on above: Order Comment: Speci men Type: BLOOD SPECIMENOrdering Facility: [facility] Address: [address] [place] [address] Performed By: #### 1 988-5, 33219-6 ####[facility] LABCLIA [id number] [place] [address] [place] Comprehensive metabolic 2000 panelon 10-22-2022 Albumin [Mass/Vol] 4.0 g/dL 3.9 - 4.9 g/dL [facility] ALP [Catalytic activity/Vol] 62 U/L 34 - 123 U/L [facility] ALT [Catalytic activity/Vol] 23 U/L 7 - 38 U/L [facility] Anion gap [Moles/Vol] 12 mmol/L 9 - 18 mmol/L [facility] AST [Catalytic activity/Vol] 22 U/L 13 - 35 U/L [facility] Bilirubin [Mass/Vol] 0.2 mg/dL 0.2 - 1 .3 mg/dL [facility] Calcium [Mass/Vol] 9.0 mg/dL 8.5 - 10. 2 mg/dL [facility] Chloride [Moles/Vol] 105 mmol/L 97 - 10 5 mmol/L [facility] CO2 [Moles/Vol] 20 mmol/L Low 22 - 30 mmol/L [facility] Creatinine [Mass/Vol] 0.52 mg/dL Low 0.58 - 0.96 mg/dL [facility] Estimated Glomerular Filtration Rate 122 mL/min/1.73m >=60 mL/min/1.73m [facility] Glucose [Mass/Vol] 101 mg/dL High 74 - 99 mg/dL [facility] Potassium [Moles/Vol] 3.9 mmol/L 3.7 - 5.1 mmol/L [facility] Protein [Mass/Vol] 6.7 g/dL 6.3 - 8.0 g/dL [facility] Sodium [Moles/Vol] 137 mmol/L 136 - 144 mmol/L [facility] Urea nitrogen [Mass/Vol] 9 mg/dL 7 - 21 mg/dL [facility] Albumin [Mass/Vol] 4.0 g/dL Normal 3.9-4.9 [facility] Comment on above: Order Comment: Speci men Type: BLOOD SPECIMENOrdering Facility: [facility] Address: [address] [address] Performed By: #### 1 988-5, ####[facility] LABCLIA [id number] [address] OF [facility] ALP [Catalytic activity/Vol] 62 U/L Normal 34-123 [facility] Comment on above: Order Comment: Speci men Type: BLOOD SPECIMENOrdering Facility: [facility] Address: [address] [address] Performed By: #### 1 988-5, ####[facility] LABCLIA [id number] [place] [address] [place] ALT [Catalytic activity/Vol] 23 U/L Normal 7-38 [facility] Comment on above: Order Comment: Speci men Type: BLOOD SPECIMENOrdering Facility: [facility] Address: [address] [place] [address] Performed By: #### 1 988-5, ####[facility] LABCLIA [id number] [place] [address] [place] Anion gap [Moles/Vol] 12 mmol/L Normal 9-18 [facility] Comment on above: Order Comment: Speci men Type: BLOOD SPECIMENOrdering Facility: [facility] Address: [address] [place] [address] Performed By: #### 1 988-5, 24413-2 ####[facility] LABCLIA [id number] [place] [address] [place] AST [Catalytic activity/Vol] 22 U/L Normal 13-35 [facility] Comment on above: Order Comment: Speci men Type: BLOOD SPECIMENOrdering Facility: [facility] Address: [address] [place] [address] Performed By: #### 1 988-5, 95990-0 ####[facility] LABCLIA [id number] [place] [address] [place] Bilirubin [Mass/Vol] 0.2 mg/dL Normal 0.2-1.3 [facility] Comment on above: Order Comment: Speci men Type: BLOOD SPECIMENOrdering Facility: [facility] Address: [address] [place] [address] Performed By: #### 1 988-5, 37186-7 ####[facility] LABIA [id number] [place] [address] [place] Calcium [Mass/Vol] 9.0 mg/dL Normal 8.5-10.2 [facility] Comment on above: Order Comment: Speci men Type: BLOOD SPECIMENOrdering Facility: [facility] Address: [address] [place] [address] Performed By: #### 1 988-5, 69705-5 ####[facility] LABCLIA [id number] [place] [address] [place] Chloride [Moles/Vol] 105 mmol/L Normal 97-105 [facility] Comment on above: Order Comment: Speci men Type: BLOOD SPECIMENOrdering Facility: [facility] Address: [address] [place] [address] Performed By: #### 1 988-5, ####[facility] LABCLIA [id number] [place] [address] [place] CO2 [Moles/Vol] 20 mmol/L Low 22-30 [facility] Comment on above: Order Comment: Speci men Type: BLOOD SPECIMENOrdering Facility: [facility] Address: [address] [place] [address] Performed By: #### 1 988-5, 29215-3 ####[facility] LABCLIA [id number] [place] [address] [place] Creatinine [Mass/Vol] 0.52 mg/dL Low 0.58-0.96 [facility] Comment on above: Order Comment: Speci men Type: BLOOD SPECIMENOrdering Facility: [facility] Address: [address] [place] [address] Performed By: #### 1 988-5, 91549-9 ####[facility] LABCLIA [id number] [address] [place] Creatinine and Glomerular filtration rate.predicted panel (S/P/Bld) 122 mL/min/1.73m??? Normal >=60 [facility] Comment on above: Order Comment: Shaneka montemayor Type: BLOOD SPECIMENOrdering Facility: [facility] Address: [address] [place] [address] Result Comment: Polly mated Glomerular Filtration Rate (eGFR) is calculated using the 2020 CKD-EPI creatinine equation. This equation utilizes serum creatinine, sex, and age as parameters. The creatinine assay has traceable calibration to isotope dilution-mass spectrometry. Refer to KDIGO guidelines for clinical interpretation. In patients with unstable renal function, e.g. those with acute kidney injury, the eGFR may not accurately reflect actual GFR. Performed By: #### 1 988-5, 74627-3 ####[facility] [id number] [place] [address] [place] Glucose [Mass/Vol] 101 mg/dL High 74-99 [facility] Comment on above: Order Comment: Shaneka montemayor Type: BLOOD SPECIMENOrdering Facility: [facility] Address: [address] [place] [address] Result Comment: The [place] Diabetes Association (ADA) provides guidance for cutoff values for fasting glucose and random glucose. The ADA defines fasting as no caloric intake for at least 8 hours. Fasting plasma glucose results between 100 to 125 mg/dL indicate increased risk for diabetes (prediabetes). Fasting plasma glucose results greater than or equal to 126 mg/dL meet the criteria for diagnosis of diabetes. In the absence of unequivocal hyperglycemia, results should be confirmed by repeat testing. In a patient with classic symptoms of hyperglycemia or hyperglycemic crisis, random plasma glucose results greater than or equal to 200 mg/dL meet the criteria for diagnosis of diabetes. Reference: Standards of Medical Care in Diabetes 2016, [place] Diabetes Association. Diabetes Care. 2016.39(Suppl 1). Performed By: #### 1 988-5, 43600-6 ####[facility] [id number] [place] [address] [place] Potassium [Moles/Vol] 3.9 mmol/L Normal 3.7-5.1 [facility] Comment on above: Order Comment: Shaneka montemayor Type: BLOOD SPECIMENOrdering Facility: [facility] Address: [address] Performed By: #### 1 988-5, 82372-6 ####[facility] LABIA [id number] [place] [address] [place] Protein [Mass/Vol] 6.7 g/dL Normal 6.3-8.0 [facility] Comment on above: Order Comment: Speci men Type: BLOOD SPECIMENOrdering Facility: [facility] Address: [address] [place] [address] Performed By: #### 1 988-5, 01087-3 ####[facility] LABIA [id number] [place] [address] [place] Sodium [Moles/Vol] 137 mmol/L Normal 136-144 [facility] Comment on above: Order Comment: Speci men Type: BLOOD SPECIMENOrdering Facility: [facility] Address: [address] [place] [address] Performed By: #### 1 988-5, 25138-2 ####[facility] LABIA [id number] [place] [address] [place] Urea nitrogen [Mass/Vol] 9 mg/dL Normal 7-21 [facility] Comment on above: Order Comment: Speci men Type: BLOOD SPECIMENOrdering Facility: [facility] Address: [address] [place], [place] [address] Performed By: #### 1 988-5, 39641-5 ####[facility] LABIA [id number] [place] [address] [place] ESR Westergren method (Bld) [Velocity]on 10-22-2022 ESR (Bld) [Velocity] 20 mm/h 0 - 20 mm/hr [facility] ESR (Bld) [Velocity] 20 mm/h Normal 0-20 [facility] Comment on above: Order Comment: Speci men Type: BLOOD SPECIMENOrdering Facility: [facility] Address: [facility] [place] [address] Performed By: #### 5 7021-8, 4537-7 ####[facility] LABCLIA [id number] [address] [place] [facility] - Chemistry and C hemistry - challengeon 10-22-2022 Urate [Mass/Vol] 5.2 mg/dL 2.5 - 6.6 mg/dL [facility] Urate SerPl-mCncon 3 Urate [Mass/Vol] 5.2 mg/dL Normal 2.5-6.6 [facility] Comment on above: Order Comment: Speci men Type: BLOOD SPECIMENOrdering Facility: [facility] Address: [address] [place] [address] Performed By: #### 3 084-1 ####[facility] [facility] [id number] [address] [place] VITAMIN D 25 HYDROXYon 10-22 25-hydroxyvitamin D3 [Mass/Vol] 46.8 ng/mL 31.0 - 80.0 ng/mL [facility] CNPNon 08-31-2022 CNPN Telephone ([place]) ANY LUDWIG ([id number]) 1985 F Date Time Provider Department 08/31/22 FARIBA HILL During your visit today, we recorded the following information about you: Na Arevalo RN 08/31/2022 4:06 PM Signed Per Prior Auth department authorization has not been received for infusion for tomorrow. Requesting that we push infusion out 10 days to allow for authorization. PSS-please call patient and assist with rescheduling. Pt notified and verbalized understanding. She is requesting for some steroids be sent because she is having a lot of pain at this time. 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 08/31/2022 4:19 PM Signed Sent RX Prednisone Take 2 tablets by mouth once daily for 14 days, THEN 1 tablet once daily for 14 days. With breakfast. Then stop. No other nsaids.. Yessy Hill Pss 08/31/2022 4:21 PM Signed Patient has been rescheduled as requested Allergies As of Date: 08/31/2022 (No Known Allergies) Date Reviewed: 06/23/2022 Reviewed by: Na Arevalo RN - Fully Assessed Order(s):predniSONE (DELTASONE) 5 mg tabletTake 2 tablets by mouth once daily for 14 days, THEN 1 tablet once daily for 14 days. With breakfast. Then stop. No other nsaids..Disp: 42 tabletRfl: 0 Prescriptions as of 08/31/2022 - predniSONE (DELTASONE) 5 mg tablet Take 2 tablets by mouth once daily for 14 days, THEN 1 tablet once daily for 14 days. With breakfast. Then stop. No other nsaids.. - leflunomide (ARAVA) 10 mg tablet TAKE 1 TABLET BY MOUTH EVERY DAY - ergocalciferol 50,000 unit capsule (VITAMIN D2, DRISDOL) Take 1 capsule by mouth two times a week. (FOR EXAMPLE ONE CAPSULE ON WEDNESDAY AND ONE ON WEDNESDAY) FOR A TOTAL OF 8 WEEKS, WITH A MEAL - gabapentin (NEURONTIN) 600 mg tablet TAKE 1 TABLET BY MOUTH 3 TIMES A DAY FOR ANXIETY - PARoxetine (PAXIL) 30 mg tablet Take 30 mg by mouth once daily. Take 30 mg by mouth once daily. - Atomoxetine 80 mg capsule Take 80 mg by mouth once daily. Take 80 mg by mouth once daily. - Cholecalciferol, Vitamin D3, (VITAMIN D) 25 mcg (1,000 unit) cap Take 2 capsules by mouth once daily. - IBUPROFEN ORAL Take by mouth. - buprenorphine-naloxon e (SUBOXONE) 8-2 mg film Dissolve under the tongue once daily. Prescribed by outside physician Problem List As Of Date 08/31/2022 Noted Resolved Vitamin D deficiency [E55.9] 04/23/2017 Cyclic citrullinated peptide (CCP) antibody pos*12/30/2017 Rheumatoid factor positive [R76.8] 12/30/2017 Seropositive rheumatoid arthritis (HCC) [M05.9] 12/30/2017 Smokes and motivated to quit [F17.200] 12/30/2017 Prescriptions ordered this encounter Disp Refills Start End PREDNISONE 5 MG TABLET 42 t* 0 08/31/2022 09/28/2022 Route: ORAL Sig: Take 2 tablets by mouth once daily for 14 days, THEN 1 tablet once daily for 14 days. With breakfast. Then stop. No other nsaids.. Medications Discontinued During This Encounter Prescriptions - predniSONE (DELTASONE) 5 mg tablet (Discontinued) Take 1 tablet by mouth once daily. With breakfast for 2 weeks . No other nsaids. Encounter Status:Closed by YESSY GALARZA on 08/31/22 [facility] 08-05-2022 [facility] ([facility]) ANY LUDWIG ([id number]) 1985 F Date Time Provider Department 08/05/22 JUAN DANIEL LEOS [facility] During your visit today, we recorded the following information about you: Carol Lauren 08/05/2022 4:25 PM Signed === PHARMACY TEAM ==== PEER TO PEER/APPEAL REQUESTED PROVIDER TO COMPLETE P2P or Appeal: P2P Payer: Haritha COVINGTON DOS: 09.01.22 Drug Name(s) AND HCPCS/CPTCode(s): Avsola Q5121 Dx code(s) submitted: M05.9 Seropositive rheumatoid arthritis Provider: JUAN DANIEL LEOS Peer to Peer/Appeal reason: Timeframe to complete: grace Date sent to provider: 08.05.22 Courtesy page sent (PRN): Fariba Zambrano APRN.[facility] 08/06/2022 8:24 AM Signed Please fax last 2-3 office notes Attention- Lashanta Include patient name and on cover sheet Peer to peer will call me in 24- 48 hours Shaheen Butt MA 08/06/2022 8:49 AM Signed last 3 visits faxed as requested, confirmation received Fariba Hill APRN.CNP 08/06/2022 3:32 PM Signed I spoke with peer to peer Will need to appeal [phone] Please ask for expedited appeal Avsola 5mg/kg every 5 weeks This is continued treatment Carol Lauren 08/13/2022 9:01 AM Signed === PHARMACY TEAM ==== Case Note/ Misc Comment Has appeal been submitted? If not, I can submit an appeal letter if provided via Shared Performance portal for Reference# [id number]. Fariba Hill APRN.CNP 08/13/2022 1:11 PM Signed Letter created please submit thanks Shaheen Butt MA 08/26/2022 7:41 AM Signed submitted 9 days ago. could take 15 to hear back === PHARMACY TEAM ==== ADDITIONAL INFORMATION NEEDED/REQUESTED Case Submitted: Yes Request Type: Payor Date of Service: TBD Additional Information Needed: Appeal submitted via availity Request from Payor by: N/A Email Sent to: updated te in [facility] Requested Clinicals/Information Sent: mn letter, and all notes with original submission. Appeal ID is [id number] ETO is 15 days from today Onbased appeal acknowledgement letter. Carol Lauren 08/28/2022 9:43 AM Signed === PHARMACY TEAM ==== AUTHORIZATION DENIED Denial Reason: Denial upheld on appeal Payor: [employer] Date of Service: 09.01.22 Received Denial Via: Portal [employer] Technology Specialist Name / Call Ref #: na / na Drug name(s) AND HCPCS code(s): Avsola Dx Code: [id number] itive rheumatoid arthritis Comment: Next step is a State Hearing, see onbased letter. Fariba Hill APRN.CNP 08/31/2022 9:12 AM Signed Changing plan to avsola 7.5mg /kg every 8 weeks Please expedite approval Patient is on for infusion tomorrow In process of updating plan Josefina Randolph MA 09/07/2022 3:47 PM Signed (09/02/2022) Time Cycle, Day Action User 10:23 AM Preauthorization Status Changed New Value: Authorized Previous Value: Waiting for Response Rodrigue (Pharmacy Customs And Border Protection Inspector), Fariba Hopkins, [place].ANTHONY 09/08/2022 2:13 PM Signed May offer patient sooner infusion appt since approved Sergio Yessy Ortiz 09/09/2022 11:21 AM Signed Tried calling patient 3 times and not able to leave a voice mail. If patient calls then we can offer her a sooner appointment. Yessy Galarza 09/10/2022 11:06 AM Signed Patient called back and is scheduled at a earlier time. Allergies As of Date: 08/05/2022 (No Known Allergies) Date Reviewed: 06/23/2022 Reviewed by: Na Arevalo RN - Fully Assessed Reason for Visit: Insurance Authorization [[id number]] Cmt: Prior Auth Delayed: P2P requested for Avsola Prescriptions as of 09/10/2022 - predniSONE (DELTASONE) 5 mg tablet Take 2 tablets by mouth once daily for 14 days, THEN 1 tablet once daily for 14 days. With breakfast. Then stop. No other nsaids.. - leflunomide (ARAVA) 10 mg tablet TAKE 1 TABLET BY MOUTH EVERY DAY - ergocalciferol 50,000 unit capsule (VITAMIN D2, DRISDOL) Take 1 capsule by mouth two times a week. (FOR EXAMPLE ONE CAPSULE ON WEDNESDAY AND ONE ON WEDNESDAY) FOR A TOTAL OF 8 WEEKS, WITH A MEAL - gabapentin (NEURONTIN) 600 mg tablet TAKE 1 TABLET BY MOUTH 3 TIMES A DAY FOR ANXIETY - PARoxetine (PAXIL) 30 mg tablet Take 30 mg by mouth once daily. Take 30 mg by mouth once daily. - Atomoxetine 80 mg capsule Take 80 mg by mouth once daily. Take 80 mg by mouth once daily. - Cholecalciferol, Vitamin D3, (VITAMIN D) 25 mcg (1,000 unit) cap Take 2 capsules by mouth once daily. - IBUPROFEN ORAL Take by mouth. - buprenorphine-naloxon e (SUBOXONE) 8-2 mg film Dissolve under the tongue once daily. Prescribed by outside physician Problem List As Of Date 08/05/2022 Noted Resolved Vitamin D deficiency [E55.9] 04/23/2017 Cyclic citrullinated peptide (CCP) antibody pos*12/30/2017 Rheumatoid factor positive [R76.8] 12/30/2017 Seropositive rheumatoid arthritis (HCC) [M05.9] 12/30/2017 Smokes and motivated to quit [F17.200] 12/30/2017 Letter Text (more content not included)... Normal [facility] 07-27-2022 [place] Telephone ([place]) ANY LUDWIG ([id number]) 1985 F Date Time Provider Department 07/27/22 FARIBA HILL During your visit today, we recorded the following information about you: Korin Puga RN 07/27/2022 12:43 PM Signed Call placed to patient to advise that her infusion for tomorrow has not been approved for every 5 weeks, still reads for every 7 weeks. The authorization team is resubmitting. Patient verbalized understanding that infusion will be cancelled for tomorrow and that she can be rescheduled once authorization has been obtained. Any Carranza 08/13/2022 4:04 PM Signed Pt states that she contacted her insurance and they advised her that provider needs to submit medical data regarding use and treatment to get next infusion authorized. Please review and advise. Josefina Morse MA 08/14/2022 9:16 AM Signed see other encounter, Fariba generated an appeal letter. awaiting determination Fariba Hill, BUSINESS OPERATIONS MANAGER.[facility] 08/25/2022 10:52 PM Signed Please check on this Shaheen Butt MA 08/26/2022 7:43 AM Signed submitted 9 days ago. ETO is 15 days from submitted day. Allergies As of Date: 07/27/2022 (No Known Allergies) Date Reviewed: 06/23/2022 Reviewed by: Buschur, Na, RN - Fully Assessed Reason for Visit: Patient Update [1234] Prescriptions as of 03/05/2023 - ondansetron orally disintegrating (ZOFRAN ODT) 4 mg disintegrating tablet DISSOLVE 1 TABLET BY MOUTH EVERY 8 HOURS NEEDED FOR NAUSEA - VYVANSE 50 mg capsule Take 1 capsule by mouth every afternoon. - leflunomide (ARAVA) 10 mg tablet Take 1 tablet by mouth once daily. - albuterol HFA (PROVENTIL HFA, VENTOLIN HFA) 90 mcg/actuation inhaler INHALE 1 PUFF EVERY 6 HOURS NEEDED FOR SHORTNESS OF BREATH OR WHEEZING - venlafaxine ER (EFFEXOR XR) 37.5 mg 24 hr capsule Take 1 capsule by mouth every afternoon. - triamcinolone acetonide (KENALOG) 0.1 % ointment APPLY TWICE A DAY TO THE AFFECTED AREA OF THE ELBOW - gabapentin (NEURONTIN) 600 mg tablet TAKE 1 TABLET BY MOUTH 3 TIMES A DAY FOR ANXIETY - Cholecalciferol, Vitamin D3, (VITAMIN D) 25 mcg (1,000 unit) cap Take 2 capsules by mouth once daily. - buprenorphine-naloxon e (SUBOXONE) 8-2 mg film Dissolve under the tongue once daily. Prescribed by outside physician Problem List As Of Date 07/27/2022 Noted Resolved Vitamin D deficiency [E55.9] 04/23/2017 Cyclic citrullinated peptide (CCP) antibody pos*12/30/2017 Rheumatoid factor positive [R76.8] 12/30/2017 Seropositive rheumatoid arthritis (HCC) [M05.9] 12/30/2017 Smokes and motivated to quit [F17.200] 12/30/2017 Encounter Status:Closed by KORIN PUGA on 03/05/23 [facility] 07-08-2022 [place] Telephone ([place]) ANY LUDWIG ([id number]) 1985 F Date Time Provider Department 07/08/22 FARIBA HILL During your visit today, we recorded the following information about you: 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 07/08/2022 12:27 AM Signed Please call patient Please increase potassium in your diet: spinach, sweet potatoes, avocados, coconut water, dried fruits (dates and apricots), bananas, beans, acorn squash, mushrooms. Slightly below normal HGB- will continue to monitor No inflammation on labs Normal vit d please take otc vit d 2000 international unit(s) daily Recheck labs in 3 months Component Latest Ref Rng AND Units 06/23/2022 WBC 3.70 - 11.00 k/uL 5.08 RBC 3.90 - 5.20 m/uL 3.90 Hemoglobin 11.5 - 15.5 g/dL 11.0 (L) Hematocrit 36.0 - 46.0 % 33.5 (L) MCV 80.0 - 100.0 fL 85.9 MCH 26.0 - 34.0 pg 28.2 MCHC 30.5 - 36.0 g/dL 32.8 RDW-CV 11.5 - 15.0 % 12.8 Platelet Count 150 - 400 k/uL 201 MPV 9.0 - 12.7 fL 11.6 Neut% % 35.8 Abs Neut (ANC) 1.45 - 7.50 k/uL 1.82 Lymph% % 50.2 Abs Lymph 1.00 - 4.00 k/uL 2.55 Sampson% % 6.3 Abs Sampson <0.87 k/uL 0.32 Eosin% % 5.3 Abs Eosin <0.46 k/uL 0.27 Baso% % 1.4 Abs Baso <0.11 k/uL 0.07 Immature Gran % % 1.0 IMMATURE GRANS (ABS) <0.10 k/uL 0.05 NRBC /100 WBC 0.0 Absolute nRBC <0.01 k/uL <0.01 DTYPE Auto Protein, Total 6.3 - 8.0 g/dL 6.5 Albumin 3.9 - 4.9 g/dL 3.7 (L) Calcium 8.5 - 10.2 mg/dL 8.9 Bilirubin, Total 0.2 - 1.3 mg/dL 0.2 Alkaline Phosphatase 34 - 123 U/L 66 AST 13 - 35 U/L 23 ALT 7 - 38 U/L 13 Glucose 74 - 99 mg/dL 85 BUN 7 - 21 mg/dL 5 (L) Creatinine 0.58 - 0.96 mg/dL 0.49 (L) Sodium 136 - 144 mmol/L 139 Potassium 3.7 - 5.1 mmol/L 3.6 (L) Chloride 97 - 105 mmol/L 103 CO2 22 - 30 mmol/L 24 Anion Gap 9 - 18 mmol/L 12 eGFR >=60 mL/min/1.73mA? 124 CRP <0.9 mg/dL <0.3 WSR 0 - 20 mm/hr 15 Vitamin D 25 Hydroxy 31.0 - 80.0 ng/mL 41.8 Becki Torres MA 07/08/2022 8:40 AM Signed Pt aware. Becki Torres MA Allergies As of Date: 07/08/2022 (No Known Allergies) Date Reviewed: 06/23/2022 Reviewed by: Na Arevalo RN - Fully Assessed Reason for Visit: Results [95] Primary Visit Diagnosis:Seropositiv e rheumatoid arthritis (HCC) [M05.9] Other Visit Diagnosis:Vitamin D deficiency [E55.9] Order(s):CBC + DIFF [SQCBCDIF] Order #: [id number] FUTURE COMP METABOLIC PANEL [SQCMP] Order #: [id number] FUTURE VITAMIN D 25 HYDROXY [SQVITD] Order #: [id number] FUTURE C-REACTIVE PROTEIN (CRP) [SQCRP] Order #: [id number] FUTURE SED RATE WESTERGREN [SQWSR] Order #: [id number] FUTURE Prescriptions as of 07/08/2022 - predniSONE (DELTASONE) 5 mg tablet Take 1 tablet by mouth once daily. With breakfast for 2 weeks . No other nsaids. - ergocalciferol 50,000 unit capsule (VITAMIN D2, DRISDOL) Take 1 capsule by mouth two times a week. (FOR EXAMPLE ONE CAPSULE ON WEDNESDAY AND ONE ON WEDNESDAY) FOR A TOTAL OF 8 WEEKS, WITH A MEAL - gabapentin (NEURONTIN) 600 mg tablet TAKE 1 TABLET BY MOUTH 3 TIMES A DAY FOR ANXIETY - PARoxetine (PAXIL) 30 mg tablet Take 30 mg by mouth once daily. Take 30 mg by mouth once daily. - Atomoxetine 80 mg capsule Take 80 mg by mouth once daily. Take 80 mg by mouth once daily. - leflunomide (ARAVA) 10 mg tablet TAKE 1 TABLET BY MOUTH EVERY DAY - Cholecalciferol, Vitamin D3, (VITAMIN D) 25 mcg (1,000 unit) cap Take 2 capsules by mouth once daily. - IBUPROFEN ORAL Take by mouth. - buprenorphine-naloxon e (SUBOXONE) 8-2 mg film Dissolve under the tongue once daily. Prescribed by outside physician Problem List As Of Date 07/08/2022 Noted Resolved Vitamin D deficiency [E55.9] 04/23/2017 Cyclic citrullinated peptide (CCP) antibody pos*12/30/2017 Rheumatoid factor positive [R76.8] 12/30/2017 Seropositive rheumatoid arthritis (HCC) [M05.9] 12/30/2017 Smokes and motivated to quit [F17.200] 12/30/2017 Encounter Status:Closed by BECKI TORRES on 07/08/22 Normal [facility] CBC W Auto Differential pane l (Bld)on 06-23-2022 Basophils (Bld) [#/Vol] 0.07 10*3/uL <0.11 k/uL [facility] Basophils/100 WBC (Bld) 1.4 % [facility] Differential cell count method Nom (Bld) Auto [facility] Eosinophils (Bld) [#/Vol] 0.27 10*3/uL <0.46 k/uL [facility] Eosinophils/100 WBC (Bld) 5.3 % [facility] Erythrocyte distribution width (RBC) [Ratio] 12.8 % 11.5 - 15.0 % [facility] Hematocrit (Bld) [Volume fraction] 33.5 % Low 36.0 - 46.0 % [facility] Hemoglobin (Bld) [Mass/Vol] 11.0 g/dL Low 11.5 - 15.5 g/dL [facility] Immature granulocytes (Bld) [#/Vol] 0.05 10*3/uL <0.10 k/uL [facility] Immature granulocytes/100 WBC (Bld) 1.0 % [facility] Lymphocytes (Bld) [#/Vol] 2.55 10*3/uL 1.00 - 4.00 k/uL [facility] Lymphocytes/100 WBC (Bld) 50.2 % [facility] MCH (RBC) [Entitic mass] 28.2 pg 26.0 - 34.0 pg [facility] MCHC (RBC) [Mass/Vol] 32.8 g/dL 30.5 - 36.0 g/dL [facility] MCV (RBC) [Entitic vol] 85.9 fL 80.0 - 100.0 fL [facility] Monocytes (Bld) [#/Vol] 0.32 10*3/uL <0.87 k/uL [facility] Monocytes/100 WBC (Bld) 6.3 % [facility] Neutrophils (Bld) [#/Vol] 1.82 10*3/uL 1.45 - 7.50 k/uL [facility] Neutrophils/100 WBC (Bld) 35.8 % [facility] Nucleated RBC (Bld) [#/Vol] <0.01 k/uL [facility] Nucleated RBC/100 WBC (Bld) [Ratio] 0.0 /100 WBC [facility] Platelet mean volume (Bld) [Entitic vol] 11.6 fL 9.0 - 12.7 fL [facility] Platelets (Bld) [#/Vol] 201 10*3/uL 150 - 400 k/uL [facility] RBC (Bld) [#/Vol] 3.90 10*6/uL 3.90 - 5.2 0 m/uL [facility] WBC (Bld) [#/Vol] 5.08 10*3/uL 3.70 - 11. 00 k/uL [facility] ESR Westergren method (Bld) [Velocity]on 06-23-2022 ESR (Bld) [Velocity] 15 mm/h 0 - 20 mm/hr [facility] C-REACTIVE PROTEIN (CRP)on 0 02-24-2022 CRP [Mass/Vol] 0.6 mg/dL <0.9 mg/dL [facility] CBC W Auto Differential pane l (Bld)on 02-24-2022 Basophils (Bld) [#/Vol] 0.05 10*3/uL <0.11 k/uL [facility] Basophils/100 WBC (Bld) 0.8 % [facility] Differential cell count method Nom (Bld) Auto [facility] Eosinophils (Bld) [#/Vol] 0.28 10*3/uL <0.46 k/uL [facility] Eosinophils/100 WBC (Bld) 4.6 % [facility] Erythrocyte distribution width (RBC) [Ratio] 12.4 % 11.5 - 15.0 % [facility] Hematocrit (Bld) [Volume fraction] 37.1 % 36.0 - 46.0 % [facility] Hemoglobin (Bld) [Mass/Vol] 12.3 g/dL 11.5 - 15.5 g/dL [facility] Immature granulocytes (Bld) [#/Vol] <0.10 k/uL [facility] Immature granulocytes/100 WBC (Bld) 0.3 % [facility] Lymphocytes (Bld) [#/Vol] 3.03 10*3/uL 1.00 - 4.00 k/uL [facility] Lymphocytes/100 WBC (Bld) 49.7 % [facility] MCH (RBC) [Entitic mass] 28.7 pg 26.0 - 34.0 pg [facility] MCHC (RBC) [Mass/Vol] 33.2 g/dL 30.5 - 36.0 g/dL [facility] MCV (RBC) [Entitic vol] 86.5 fL 80.0 - 100.0 fL [facility] Monocytes (Bld) [#/Vol] 0.49 10*3/uL <0.87 k/uL [facility] Monocytes/100 WBC (Bld) 8.0 % [facility] Neutrophils (Bld) [#/Vol] 2.23 10*3/uL 1.45 - 7.50 k/uL [facility] Neutrophils/100 WBC (Bld) 36.6 % [facility] Nucleated RBC (Bld) [#/Vol] <0.01 k/uL [facility] Nucleated RBC/100 WBC (Bld) [Ratio] 0.0 /100 WBC [facility] Platelet mean volume (Bld) [Entitic vol] 11.0 fL 9.0 - 12.7 fL [facility] Platelets (Bld) [#/Vol] 224 10*3/uL 150 - 400 k/uL [facility] RBC (Bld) [#/Vol] 4.29 10*6/uL 3.90 - 5.2 0 m/uL [facility] WBC (Bld) [#/Vol] 6.10 10*3/uL 3.70 - 11. 00 k/uL [facility] Comprehensive metabolic 2000 panelon 02-24-2022 Albumin [Mass/Vol] 4.0 g/dL 3.9 - 4.9 g/dL [facility] ALP [Catalytic activity/Vol] 89 U/L 34 - 123 U/L [facility] ALT [Catalytic activity/Vol] 18 U/L 7 - 38 U/L [facility] Anion gap [Moles/Vol] 12 mmol/L 9 - 18 mmol/L [facility] AST [Catalytic activity/Vol] 27 U/L 13 - 35 U/L [facility] Bilirubin [Mass/Vol] Low 0.2 - 1 .3 mg/dL [facility] Calcium [Mass/Vol] 9.0 mg/dL 8.5 - 10. 2 mg/dL [facility] Chloride [Moles/Vol] 102 mmol/L 97 - 10 5 mmol/L [facility] CO2 [Moles/Vol] 22 mmol/L 22 - 30 mmol/L [facility] Creatinine [Mass/Vol] 0.46 mg/dL Low 0.58 - 0.96 mg/dL [facility] Estimated Glomerular Filtration Rate 126 mL/min/1.73m >=60 mL/min/1.73m [facility] Glucose [Mass/Vol] 87 mg/dL 74 - 99 mg/dL [facility] Potassium [Moles/Vol] 3.7 mmol/L 3.7 - 5.1 mmol/L [facility] Protein [Mass/Vol] 6.7 g/dL 6.3 - 8.0 g/dL [facility] Sodium [Moles/Vol] 136 mmol/L 136 - 144 mmol/L [facility] Urea nitrogen [Mass/Vol] 7 mg/dL 7 - 21 mg/dL [facility] ESR Westergren method (Bld) [Velocity]on 02-24-2022 ESR (Bld) [Velocity] 29 mm/h High 0 - 20 mm/hr [facility] VITAMIN D 25 HYDROXYon 01-05 25-hydroxyvitamin D3 [Mass/Vol] 50.7 ng/mL 31.0 - 80.0 ng/mL [facility] Covid-19 PCR (CVDTBH)on 09-22 SARS-CoV-2 (COVID-19) RNA KARAN+probe Ql (Unsp spec) Not detected Normal NOT DETECTED [facility] Comment on above: Result Comment: When diagnostic testing is negative, the possibility of a false negative should be considered in the context of a patient's recent exposures and the presence of clinical signs and symptoms consistent with SARS-CoV-2. This test is not yet approved or cleared by the [place] FDA. When there are no FDA-approved or cleared tests available, and other criteria are met, FDA can make tests available under an emergency access mechanism called an Emergency Use Authorization (EUA). The EUA for this test is supported by the [place] of Health and Human Service's declaration that circumstances exist to justify the emergency use of in vitro diagnostics for the detection and/or diagnosis of the virus that causes COVID-19. This EUA will remain in effect for the duration of the COVID-19 declaration justifying emergency of IVDs, unless it is terminated or revoked by the FDA (after which the test may no longer be used). Performed By: #### C VDTBH #### [facility] [address] [place] [address] Dr. Funmi Bosch GROUP A STREP CULTUREon 09-22 S. pyogenes Ag Ql (Unsp spec) Culture Observations: NEGATIVE FOR GROUP A STREPTOCOCCUS. Normal [facility] Comment on above: Performed By: #### G RASTCX SSCRN #### [facility] [address] [place] [address] Dr. Funmi Bosch STREPT SCREENon 10-07-2021 STREP SCREEN A Negative Normal NEGATIVE [facility] Comment on above: Performed By: #### G RASTCX, SSCRN #### [facility] [address] [place] [address] Dr. Funmi Bosch BUPERNORPHINE CONFIRMATION, URINEon 09-14-2021 Buprenorphine Positive Abnormal [facility] Comment on above: Result Comment: Conf irmation performed by Mass Spectrometry Performed By: #### B UPCON #### [facility] [address] [place] [address] Dr. Funmi Bosch Buprenorphine Confirm 1071 ng/mL Normal Cutoff=10 [facility] Comment on above: Performed By: #### B UPCON #### [facility] [address] [address] [address] Funmi Blackprenorphine Positive Abnormal [facility] Comment on above: Performed By: #### B UPCON #### [facility] [address] [address] [address] Funmi Blackprenorphine Confirm >2000 Normal Cutoff=10 [facility] Comment on above: Performed By: #### B UPCON #### [facility] [address] [place] [address] Dr. Funmi Bosch CBC AUTO DIFFon 09-04-2021 BASO # 0.0 103/ul Normal 0.0-0.1 [facility] Comment on above: Performed By: #### C BC #### [facility] [address] [place] [address] Dr. Funmi Bosch Basophils/100 WBC (Bld) 0.3 % Normal 0.2-2.0 [facility] Comment on above: Performed By: #### C BC #### [facility] [address] [place] [address] Dr. Funmi Bosch EO # 0.1 103/ul Normal 0.0-0.7 [facility] Comment on above: Performed By: #### C BC #### [facility] [address] [place] [address] Dr. Funmi Bosch Eosinophils/100 WBC (Bld) 0.6 % Critically low 0.9-7.0 [facility] Comment on above: Performed By: #### C BC #### [facility] [address] [place] [address] Dr. Funmi Bosch Erythrocyte distribution width (RBC) [Ratio] 13.4 % Normal 11.0-15.0 [facility] Comment on above: Performed By: #### C BC #### [facility] [address] [place] [address] Dr. Funmi Bosch Hematocrit (Bld) [Volume fraction] 35.2 % Critically low 36.0-48.0 [facility] Comment on above: Performed By: #### C BC #### [facility] [address] [place] [address] Dr. Funmi Bosch Hemoglobin (Bld) [Mass/Vol] 12.4 g/dL Normal 12.0-16.0 [facility] Comment on above: Performed By: #### C BC #### [facility] [address] [place] [address] Dr. Funmi Bosch IG # 0.04 10e3/ul Critically high 0.00-0.03 [facility] Comment on above: Performed By: #### C BC #### [facility] [address] [place] [address] Dr. Funmi Bosch IG % 0.3 % Normal 0.0-0.5 [facility] Comment on above: Performed By: #### C BC #### [facility] [address] [place] [address] Dr. Funmi Bosch LYMPH # 5.2 103/ul Critically high 1.2-3.8 [facility] Comment on above: Performed By: #### C BC #### [facility] [address] [place] [address] Dr. Funmi Bosch Lymphocytes/100 WBC (Bld) 41.7 % Normal 20.5-60.0 [facility] Comment on above: Performed By: #### C BC #### [facility] [address] [place] [address] Dr. Funmi Bosch MANUAL DIFF REQ NO Normal [facility] Comment on above: Performed By: #### C BC #### [facility] [address] [place] [address] Dr. Funmi Bosch MCH (RBC) [Entitic mass] 30.1 pg Normal 26.7-34.0 [facility] Comment on above: Performed By: #### C BC #### [facility] [address] [place] [address] Dr. Funmi Bosch MCHC (RBC) [Mass/Vol] 35.2 g/dL Normal 29.9-35.2 [facility] Comment on above: Performed By: #### C BC #### [facility] [address] [place] [address] Dr. Funmi Bosch MCV (RBC) [Entitic vol] 85.4 fL Normal 81.0-99.0 [facility] Comment on above: Performed By: #### C BC #### [facility] [address] [place] [address] Dr. Funmi Bosch MONO # 0.8 103/ul Normal 0.3-0.8 [facility] Comment on above: Performed By: #### C BC #### [facility] [address] [place] [address] Dr. Funmi Bosch Monocytes/100 WBC (Bld) 6.8 % Normal 1.7-12.0 [facility] Comment on above: Performed By: #### C BC #### [facility] [address] [place] [address] Dr. Funmi Bosch NEUT # 6.3 103/ul Normal 1.4-6.5 [facility] Comment on above: Performed By: #### C BC #### [facility] [address] [place] [address] Dr. Funmi Bosch Neutrophils/100 WBC (Bld) 50.3 % Normal 43.0-75.0 [facility] Comment on above: Performed By: #### C BC #### [facility] [address] [place] [address] Dr. Funmi Bosch Platelet mean volume (Bld) [Entitic vol] 9.9 fL Normal 9.5-13.5 [facility] Comment on above: Performed By: #### C BC #### [facility] [address] [place] [address] Dr. Funmi Bosch PLT 275 103/ul Normal 150-450 [facility] Comment on above: Performed By: #### C BC #### [facility] [address] [address] [address] Funmi Bosch RBC 4.12 106/ul Critically low 4.20-5.40 [facility] Comment on above: Performed By: #### C BC #### [facility] [address] [place] [address] Dr. Funmi Bosch WBC 12.4 103/ul Critically high 4.0-11.0 [facility] Comment on above: Performed By: #### C BC #### [facility] [address] [address] [address] Funmi Bosch PREG QUANT HCGon 09-04-2021 HCG QUANT <1 Normal [facility] Comment on above: Performed By: #### P REGQNT #### [facility] [address] [address] [address] Funmi Bosch HCG RANGE SEE BELOW Normal [facility] Comment on above: Result Comment: 5-50 0-1 WEEK 40-300 1-2 WEEKS 100-1,000 2-3 WEEKS 500-6,000 3-4 WEEKS 5,000-200,000 1-2 MONTHS 10,000-100,000 2-3 MONTHS 3,000-50,000 2ND TRIMESTER 1,000-50,000 3RD TRIMESTER Performed By: #### P REGQNT #### [facility] [id number] Funmi Bosch HCG QUAL UR B/Oon 09-03-2021 status Negative neg - pos [facility] Quality Check Yes [facility] Covid-19 PCR ([facility]VD[facility])on 08-22 SARS-CoV-2 (COVID-19) RNA KARAN+probe Ql (Unsp spec) Not detected Normal NOT DETECTED [facility] Comment on above: Result Comment: This test is not yet approved or cleared by the [place] FDA. When there are no FDA-approved or cleared tests available, and other criteria are met, FDA can make tests available under an emergency access mechanism called an Emergency Use Authorization (EUA). The EUA for this test is supported by the Shank Breaker of Health and Human Service's (HHS's) declaration that circumstances exist to justify the emergency use of in vitro diagnostics for the detection and/or diagnosis of the virus that causes COVID-19. This EUA will remain in effect (meaning this test can be used) for the duration of the COVID-19 declaration justifying emergency of IVDs, unless it is terminated or revoked by FDA (after which the test may no longer be used). When diagnostic testing is negative, the possibility of a false negative should be considered in the context of a patient's recent exposures and the presence of clinical signs and symptoms consistent with SARS-CoV-2. Performed By: #### C VDTBH #### [facility] [address] [place] [address] Dr. Funmi Bosch DRUG SCREEN RAPID (URINE)on 09-02-2021 AMP Negative Normal NEGATIVE [facility] Comment on above: Performed By: #### C VDTBH #### [facility] [address] [place] [address] Dr. Funmi Bosch BAR Negative Normal NEGATIVE [facility] Comment on above: Performed By: #### C VDTBH #### [facility] [address] [place] [address] Dr. Funmi Bosch BUP Positive Abnormal NEGATIVE [facility] Comment on above: Performed By: #### C VDTBH #### [facility] [address] [place] [address] Dr. Funmi Bosch BZO Negative Normal NEGATIVE [facility] Comment on above: Performed By: #### C VDTBH #### [facility] [address] [place] [address] Dr. Funmi Bosch LALA Negative Normal NEGATIVE [facility] Comment on above: Performed By: #### C VDTBH #### [facility] [address] [place] [address] Dr. Funmi Bosch CUT-OFFS SEE BELOW Normal [facility] Comment on above: Result Comment: AMP (Amphetamine): 500ng/mL, BAR (Barbituates): 200 ng/mL, BZO (Benzodiazepines): 150 ng/mL, BUP (Buprenorphine): 10 ng/mL, LALA (Cocaine): 150 ng/mL, mAMP (Methamphetamine): 500 ng/mL, MTD (Methadone): 200 ng/mL, OPI (Opiates): 100 ng/mL, OXY (Oxycodone): 100 ng/mL, PCP (Phencyclidine): 25 ng/mL, PPX (Propoxyphene): 300 ng/mL, THC (Cannabinoids): 50 ng/mL, TCA (Trycyclic Antidepressants): 300 ng/mL Performed By: #### C VDTBH #### [facility] [address] [place], [place] [id number] Dr. Funmi Bosch DRUG CUT HEADER DRUG CLASS TEST SYSTEM CUT-OFF CONCENTRATIONS ARE FOLLOWS: Normal [facility] Comment on above: Performed By: #### C VDTBH #### [facility] [address] [place] [address] Dr. Funmi Bosch mAMP Negative Normal NEGATIVE [facility] Comment on above: Performed By: #### C VDTBH #### [facility] [address] [place] [address] Dr. Funmi Bosch MTD Negative Normal NEGATIVE [facility] Comment on above: Performed By: #### C VDTBH #### [facility] [address] [place] [address] Dr. Funmi Bosch OPI Negative Normal NEGATIVE [facility] Comment on above: Performed By: #### C VDTBH #### [facility] [address] [place] [address] Dr. Funmi Bosch OXY Negative Normal NEGATIVE [facility] Comment on above: Performed By: #### C VDTBH #### [facility] [address] [place] [address] Dr. Funmi Bosch PCP Negative Normal NEGATIVE [facility] Comment on above: Performed By: #### C VDTBH #### [facility] [address] [place] [address] Dr. Funmi Bosch PPX Negative Normal NEGATIVE [facility] Comment on above: Performed By: #### C VDTBH #### [facility] [address] [place] [address] Dr. Funmi Bosch TCA Negative Normal NEGATIVE [facility] Comment on above: Performed By: #### C VDTBH #### [facility] [address] [place] [address] Dr. Funmi Bosch THC Negative Normal NEGATIVE [facility] Comment on above: Performed By: #### C VDTBH #### [facility] [address] [place] [address] Dr. Funmi Bosch [facility]24 SARS-CoV-2 (COVID-19) RNA KARAN+probe Ql (Unsp spec) Not detected Normal NOT DETECTED [facility] Comment on above: Result Comment: This test is not yet approved or cleared by the [place] FDA. When there are no FDA-approved or cleared tests available, and other criteria are met, FDA can make tests available under an emergency access mechanism called an Emergency Use Authorization (EUA). The EUA for this test is supported by the Shank Breaker of Health and Human Service's (HHS's) declaration that circumstances exist to justify the emergency use of in vitro diagnostics for the detection and/or diagnosis of the virus that causes COVID-19. This EUA will remain in effect (meaning this test can be used) for the duration of the COVID-19 declaration justifying emergency of IVDs, unless it is terminated or revoked by FDA (after which the test may no longer be used). When diagnostic testing is negative, the possibility of a false negative should be considered in the context of a patient's recent exposures and the presence of clinical signs and symptoms consistent with SARS-CoV-2. Performed By: #### C VDTB #### [facility] [address] [place] [address] Dr. Funmi Bosch GROUP A STREP CULTUREon 07-24 S. pyogenes Ag Ql (Unsp spec) Culture Observations: NEGATIVE FOR GROUP A STREPTOCOCCUS. Normal [facility] Comment on above: Performed By: #### C VDTBH #### [facility] [address] [place] [address] Dr. Funmi Bosch STREPT SCREENon 08-15-2021 STREP SCREEN A Negative Normal NEGATIVE [facility] Comment on above: Performed By: #### C VDTB #### [facility] [address] [place] [address] Dr. Funmi Bosch XR CHEST 1 Von 08-15-2021 XR CHEST 1 V EXAMINATION: XR CHES T 1 V, , 08/15/2021 5:14 PM EDT INDICATION: COUGH HISTORY: Ordering Provider Reason for Exam: Technologist Note: Additional: COMPARISON: None. TECHNIQUE: Chest x-ray: One view. FINDINGS: No pneumothorax, pleural effusion or focal airspace consolidation. Heart is normal in size. Bony thorax is unremarkable. IMPRESSION: No acute cardiopulmonary process. Electronically authenticated by: RIMMA MIRAMONTESVERONICA Date: 2021-08-15 18:25 Normal [facility] HCG QUAL UR B/Oon 08-06-2021 status Negative neg - pos [facility] Quality Check Yes [facility] HCG QUAL UR B/Oon 07-23-2021 status Negative neg - pos [facility] Quality Check Yes [facility] XR CHEST (2 VW)on 09-15-2020 XR CHEST (2 VW) EXAMINATION: TWO XRAY VIEWS OF THE CHEST 09/15/2020 5:40 pm COMPARISON: None. HISTORY: ORDERING SYSTEM PROVIDED HISTORY: productive cough, wheezing TECHNOLOGIST PROVIDED HISTORY: productive cough, wheezing FINDINGS: Lungs are hyperaerated. Possible patchy bilateral interstitial infiltrates. Heart and mediastinum normal. Bony thorax intact. IMPRESSION: Possible interstitial infiltrates. Probable small airways disease. Interpreted by: Tashi Baptiste MD Signed by: Tashi Baptiste MD 09/15/20 Final result Normal [facility] XR CHEST (2 VW)Ordered By: [place] Caro on 09-15-2020 Possible interstitia l infiltrates. Probable small airways disease. [employer] Phone: EXAMINATION: TWO XRA Y VIEWS OF THE CHEST 09/15/2020 5:40 pm COMPARISON: None. HISTORY: ORDERING SYSTEM PROVIDED HISTORY: productive cough, wheezing TECHNOLOGIST PROVIDED HISTORY: productive cough, wheezing FINDINGS: Lungs are hyperaerated. Possible patchy bilateral interstitial infiltrates. Heart and mediastinum normal. Bony thorax intact. [facility] Phone: Kurt, Mh[employer] Incoming Radiant Results From [employer] - 09/15/2020 6:20 PM EDT EXAMINATION: TWO XRAY VIEWS OF THE CHEST 09/15/2020 5:40 pm COMPARISON: None. HISTORY: ORDERING SYSTEM PROVIDED HISTORY: productive cough, wheezing TECHNOLOGIST PROVIDED HISTORY: productive cough, wheezing FINDINGS: Lungs are hyperaerated. Possible patchy bilateral interstitial infiltrates. Heart and mediastinum normal. Bony thorax intact. IMPRESSION: Possible interstitial infiltrates. Probable small airways disease. [employer] Phone: [employer] Phone: CBC auto differentialon 05- Basophils (Bld) [#/Vol] 0.03 10*3/uL [place] Basophils/100 WBC (Bld) 0 % 0 - 2 % [place] Differential Type NOT REPORTED [place] Eosinophils (Bld) [#/Vol] 0.16 10*3/uL [place] Eosinophils/100 WBC (Bld) 1 % 1 - 4 % [place] Erythrocyte distribution width (RBC) [Ratio] 14.3 % 11.8 - 14.4 % [place] Hematocrit (Bld) [Volume fraction] 35.7 % Low 36.3 - 47.1 % [place] Hemoglobin (Bld) [Mass/Vol] 11.6 g/dL Low 11.9 - 15.1 g/dL [place] Immature granulocytes (Bld) [#/Vol] 2 % High 0 [place] Immature granulocytes (Bld) [#/Vol] 0.27 10*3/uL [place] Interpretation and review of laboratory results Abnormal [place] Lymphocytes (Bld) [#/Vol] 3.65 10*3/uL [place] Lymphocytes/100 WBC (Bld) 26 % 24 - 43 % [place] MCH (RBC) [Entitic mass] 28.3 pg 25.2 - 33.5 pg [place] MCHC (RBC) [Mass/Vol] 32.5 g/dL 28.4 - 34.8 g/dL [place] MCV (RBC) [Entitic vol] 87.1 fL 82.6 - 102.9 fL [place] Monocytes (Bld) [#/Vol] 0.97 10*3/uL [place] Monocytes/100 WBC (Bld) 7 % 3 - 12 % [place] Platelet mean volume (Bld) [Entitic vol] 10.3 fL 8.1 - 13.5 fL [place] Platelets (Bld) [#/Vol] NOT REPORTED [place] Platelets (Bld) [#/Vol] 349 10*3/uL [place] RBC (Bld) [#/Vol] 4.10 10*6/uL 3.95 - 5.1 1 m/uL [place] RBC morphology finding Nom (Bld) NOT REPORTED [place] Segmented neutrophils/100 WBC (Bld) 64 % 36 - 65 % [place] Segs Absolute 8.80 High [place] WBC (Bld) [#/Vol] 13.9 10*3/uL [place] WBC (Bld) [#/Vol] 0.0 10*3/uL 0.0 per 10 0 WBC [place] WBC Morphology NOT REPORTED [place] DRUG SCREEN MULTI URINEon Amphetamine Screen, Ur Negative NEGATIVE [place] Barbiturate Screen, Ur Negative NEGATIVE [place] Benzodiazepine Screen, Urine Negative NEGATIVE [place] Buprenorphine Urine Negative NEGATIVE [place] Cannabinoid Scrn, Ur Negative NEGATIVE [place] Cocaine Metabolite, Urine Negative NEGATIVE [place] MDMA, Urine NOT REPORTED NEGATIVE [place] Methadone Screen, Urine Negative NEGATIVE [place] Methamphetamine, Urine Negative NEGATIVE [place] Opiates, Urine Negative NEGATIVE [place] Oxycodone Screen, Ur Negative NEGATIVE [place] Phencyclidine, Urine Negative NEGATIVE [place] Propoxyphene, Urine Negative NEGATIVE [place] Test Information NOT REPORTED [place] Tricyclic Antidepressants, Urine Negative NEGATIVE [place] Comment on above: Drug screen results are to be used for medical purposes only. All positive results are unconfirmed. Testing for employment or legal uses should be sent to a reference laboratory for confirmation. Glucose tolerance, 1 houron 05-01-2019 GLU ADMN Glucola [place], [place] Glucose tolerance screen 50g 116 mg/dL 70 - 135 mg/dL [place] Hemoglobinon 05-01-2019 Hemoglobin (Bld) [Mass/Vol] 11.0 g/dL Low 11.9 - 15.1 g/dL [facility] [place] Interpretation and review of laboratory results Abnormal [place] Rapid Influenza A/B Antigens on 04-04-2019 Direct Exam INFLUENZA TEST INVALID BY OUR TESTING METHOD. WILL BE SENT FOR CONFIRMATORY TESTING. [employer] Phone: Special Requests NOT REPORTED [employer] Phone: Specimen Description .NASOPHARYNGEAL SWAB [employer] Phone: TYPE AND SCREENon 1 ABO/Rh Negative [place] Antibody ID Anti-D, Passive Due To RhIG [place] Urine Drug Screen, Comprehen siveon 12-19-2018 Amphetamine Screen, Ur Negative NEGATIVE [facility] [place], [place] Barbiturate Screen, Ur Negative NEGATIVE [facility], [place] Benzodiazepine Screen, Urine Negative NEGATIVE [facility], [place] Buprenorphine Urine Negative NEGATIVE [facility], [place] Cannabinoid Scrn, Ur Negative NEGATIVE [facility] [place], [place] Cocaine Metabolite, Urine Negative NEGATIVE [facility] [place] MDMA, Urine NOT REPORTED NEGATIVE [facility] [place], [place] Methadone Screen, Urine Negative NEGATIVE [facility] [place] Methamphetamine, Urine Negative NEGATIVE [facility], [place] Opiates, Urine Negative NEGATIVE [facility] [place], [place] Oxycodone Screen, Ur Negative NEGATIVE [facility] [facility] [place], [place] Phencyclidine, Urine Negative NEGATIVE [facility], [place] Propoxyphene, Urine Negative NEGATIVE [facility], [place] Test Information NOT REPORTED [facility], [place] Tricyclic Antidepressants, Urine Negative NEGATIVE [facility], [place] Comment on above: Drug screen results are to be used for medical purposes only. All positive results are unconfirmed. Testing for employment or legal uses should be sent to a reference laboratory for confirmation. ABO/RHon 12-03-2018 ABO/Rh Negative [facility] [place] CBCon 12-03-2018 Erythrocyte distribution width (RBC) [Ratio] 15.5 % High 11.8 - 14.4 % [facility] [place] Hematocrit (Bld) [Volume fraction] 32.8 % Low 36.3 - 47.1 % [place] Hemoglobin (Bld) [Mass/Vol] 10.5 g/dL Low 11.9 - 15.1 g/dL [place] Interpretation and review of laboratory results Abnormal [place] MCH (RBC) [Entitic mass] 27.1 pg 25.2 - 33.5 pg [place] MCHC (RBC) [Mass/Vol] 32.0 g/dL 28.4 - 34.8 g/dL [place] MCV (RBC) [Entitic vol] 84.8 fL 82.6 - 102.9 fL [place] Platelet mean volume (Bld) [Entitic vol] 10.6 fL 8.1 - 13.5 fL [place] Platelets (Bld) [#/Vol] 230 10*3/uL [place] RBC (Bld) [#/Vol] 3.87 10*6/uL Low 3.95 - 5.1 1 m/uL [place] WBC (Bld) [#/Vol] 0.0 10*3/uL 0.0 per 10 0 WBC [place] WBC (Bld) [#/Vol] 10.3 10*3/uL [place] Comprehensive Metabolic Pane miriam 12-03-2018 Albumin [Mass/Vol] 3.7 g/dL 3.5 - 5.2 g/dL [place], [place] Albumin/Globulin [Mass ratio] 1.2 {ratio} [place] ALP [Catalytic activity/Vol] 64 U/L 35 - 104 U/L [place] ALT [Catalytic activity/Vol] 11 U/L 5 - 33 U/L [place] Anion gap [Moles/Vol] 15 mmol/L 9 - 17 mmol/L [place] AST [Catalytic activity/Vol] 17 U/L <32 [place] Bilirubin Ql (U) <0.10 Low 0.3 - 1.2 mg/dL [place] Bun/Cre Ratio 21 High [place] Calcium [Mass/Vol] 9.5 mg/dL 8.6 - 10. 4 mg/dL [place] Chloride [Moles/Vol] 97 mmol/L Low 98 - 10 7 mmol/L [place] CO2 [Moles/Vol] 21 mmol/L 20 - 31 mmol/L [place] Creatinine [Mass/Vol] 0.47 mg/dL Low 0.5 - 0.9 mg/dL [place] GFR >60 >60 mL/min [place] GFR Non- >60 >60 mL/min [place] Glucose [Mass/Vol] 104 mg/dL High 70 - 99 mg/dL [place] Interpretation and review of laboratory results Abnormal [place] Potassium [Moles/Vol] 3.5 mmol/L Low 3.7 - 5.3 mmol/L [place] Protein [Mass/Vol] 6.8 g/dL 6.4 - 8.3 g/dL [place] Sodium [Moles/Vol] 133 mmol/L Low 135 - 144 mmol/L [place] Urea nitrogen [Mass/Vol] 10 mg/dL 6 - 20 mg/dL [place] Metabolic Panelon 12-03-2018 GFR/1.73 sq M predicted among non-blacks MDRD (S/P/Bld) [Vol rate/Area] [place] Comment on above: Stage 1: Some kidney damage normal GFR Stage 2: Mild kidney damage GFR 60-89 Stage 3: Moderate kidney damage GFR 30-59 Stage 4: Severe kidney damage GFR 15-29 Stage 5: Severe kidney damage GFR <15 ESRD - chronic treatment by dialysis or transplant Average GFR for 30-3 9 years old: 107 mL/min/1.73sq m Chronic Kidney Disease: <60 mL/min/1.73sq m Kidney failure: <15 mL/min/1.73sq m eGFR calculated using average adult body mass. Additional eGFR calculator available at: http://[email or web address].Strap/multiple_crcl_2012.htm Microscopic Urinalysison Amorphous, UA 3+ Abnormal None [place] Bacteria, UA 1+ Abnormal None [place] Casts UA NOT REPORTED /LPF [place] Crystals UA NOT REPORTED None /HPF [place] Epithelial Cells UA 0 TO 2 [place], [place] Interpretation and review of laboratory results Abnormal [place] Mucus, UA NOT REPORTED None [place] Other Observations UA NOT REPORTED NOT REQ. M [place] RBC (U) [#/Vol] 0 TO 2 [place], [place] Renal Epithelial, Urine NOT REPORTED 0 /HPF [place] Trichomonas, UA NOT REPORTED None [facility] [place] WBC, UA 0 TO 2 [place] Yeast, UA NOT REPORTED None [place] Urinalysis Reflex to Culture on 12-03-2018 Bilirubin Urine Negative NEGATIVE [place] Color, UA YELLOW YELLOW [place] Glucose, Ur Negative NEGATIVE [place] Interpretation and review of laboratory results Abnormal [place] Ketones Ql (U) Negative NEGATIVE [place] Leukocyte esterase Test strip Ql (U) Negative NEGATIVE [place] Nitrite, Urine Negative NEGATIVE [place] pH, UA 7.5 [place] Protein (U) [Mass/Vol] Negative NEGATIVE [place] Specific [place]ra, UA 1.015 [place] Turbidity UA CLOUDY Abnormal CLEAR [place] Urinalysis Comments NOT REPORTED [place] Urine Hgb Negative NEGATIVE [place] Urobilinogen, Urine Normal Normal [place] Wet Prep, Genitalon 12-04-19 19 Direct Exam YEAST PRESENT [place] Direct Exam NO CLUE CELLS SEEN [place] Direct Exam NO TRICHOMONAS SEEN [place] Special Requests NOT REPORTED [place] Specimen Description .VAG[place] hCG, quantitative, on 12-03-2018 hCG Quant [id number] High <5 IU/L [place] Comment on above: Non-preg premeno <=5 Postmeno <=8 Male <=3 If HCG results do not concur with clinical observations, additional testing to confirm results is recommended. Elevated results not associated with may be found in patients with other diseases such as tumors of the germ cells (testis, ovaries, etc.), bladder, pancreas, stomach, lungs, and liver. Interpretation and review of laboratory results Abnormal [facility] [place] Vital Signs Date Time Vital Sign Value Performing Clinician Facility 05-26-2023 13:42-0400 Body temperature 97.5 [degF] Silvia Cooper BUSINESS OPERATIONS MANAGER.BOILERMAKING SUPERVISOR Work Phone: [facility] 05-26-2023 13:42-0400 Diastolic blood pressure 66 mm[Hg] Silvia Cooper BUSINESS OPERATIONS MANAGER.BOILERMAKING SUPERVISOR Work Phone: [facility] 05-26-2023 13:42-0400 Heart rate 65 /min Silvia Cooper BUSINESS OPERATIONS MANAGER.BOILERMAKING SUPERVISOR Work Phone: [facility] 05-26-2023 13:42-0400 SaO2% (BldA) [Mass fraction] 98 % Silvia Cooper BUSINESS OPERATIONS MANAGER.BOILERMAKING SUPERVISOR Work Phone: [facility] 05-26-2023 13:42-0400 Systolic blood pressure 107 mm[Hg] Silvia Cooper BUSINESS OPERATIONS MANAGER.BOILERMAKING SUPERVISOR Work Phone: [facility] 05-26-2023 11:32-0400 Body temperature 97.2 [degF] Rheu Leslie Work Phone: [facility] 05-26-2023 11:32-0400 Body weight 74.9 kg Rheu Leslie Work Phone: [facility] 05-26-2023 11:32-0400 Diastolic blood pressure 69 mm[Hg] Rheu Leslie Work Phone: [facility] 05-26-2023 11:32-0400 Heart rate 65 /min Rheu Leslie Work Phone: [facility] 05-26-2023 11:32-0400 SaO2% (BldA) [Mass fraction] 96 % Rheu Leslie Work Phone: [facility] 05-26-2023 11:32-0400 Systolic blood pressure 106 mm[Hg] Rheu Leslie Work Phone: [facility] 04-28-2023 12:15-0500 Body temperature 97 [degF] Rheu Leslie Work Phone: [facility] 04-28-2023 12:15-0500 Body weight 73.6 kg Rheu Leslie Work Phone: [facility] 04-28-2023 12:15-0500 Diastolic blood pressure 73 mm[Hg] Rheu Leslie Work Phone: [facility] 04-28-2023 12:15-0500 Heart rate 80 /min Rheu Leslie Work Phone: [facility] 04-28-2023 12:15-0500 Respiratory rate 18 /min Rheu Leslie Work Phone: [facility] 04-28-2023 12:15-0500 Systolic blood pressure 110 mm[Hg] Rheu Leslie Work Phone: [facility] 03-31-2023 12:50-0500 Diastolic blood pressure 69 mm[Hg] Rheu Leslie Work Phone: [facility] 03-31-2023 12:50-0500 Heart rate 70 /min Rheu Leslie Work Phone: [facility] 03-31-2023 12:50-0500 Systolic blood pressure 112 mm[Hg] Rheu Leslie Work Phone: [facility] 03-31-2023 11:34-0500 Body temperature 97.39 [degF] Rheu Leslie Work Phone: [facility] 03-31-2023 11:34-0500 Body weight 74.39 kg Rheu Elslie Work Phone: [facility] 01-20-2023 08:40-0500 Body temperature 96.21 [degF] Fariba Hill APRN.CNP Work Phone: [facility] 01-20-2023 08:40-0500 Body weight 72.45 kg 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 Work Phone: [facility] 01-20-2023 08:40-0500 Diastolic blood pressure 82 mm[Hg] 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 Work Phone: [facility] 01-20-2023 08:40-0500 Heart rate 84 /min 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 Work Phone: [facility] 01-20-2023 08:40-0500 SaO2% (BldA) [Mass fraction] 97 % 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 Work Phone: [facility] 01-20-2023 08:40-0500 Systolic blood pressure 128 mm[Hg] 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 Work Phone: [facility] 12-31-2022 10:45-0500 Body temperature 97.5 [degF] Rheu Leslie Work Phone: [facility] 12-31-2022 10:45-0500 Body weight 71.67 kg Rheu Leslie Work Phone: [facility] 12-31-2022 10:45-0500 Diastolic blood pressure 61 mm[Hg] Rheu Leslie Work Phone: [facility] 12-31-2022 10:45-0500 Heart rate 78 /min Rheu Leslie Work Phone: [facility] 12-31-2022 10:45-0500 SaO2% (BldA) [Mass fraction] 97 % Rheu Leslie Work Phone: [facility] 12-31-2022 10:45-0500 Systolic blood pressure 123 mm[Hg] Rheu Leslie Work Phone: [facility] 11-27-2022 09:44-0400 Body temperature 97 [degF] Rheu Leslie Work Phone: [facility] 11-27-2022 09:44-0400 Body weight 71.94 kg Rheu Leslie Work Phone: [facility] 11-27-2022 09:44-0400 Diastolic blood pressure 65 mm[Hg] Rheu Leslie Work Phone: [facility] 11-27-2022 09:44-0400 Heart rate 75 /min Rheu Leslie Work Phone: [facility] 11-27-2022 09:44-0400 Systolic blood pressure 112 mm[Hg] Rheu Leslie Work Phone: [facility] 10-22-2022 14:00-0400 Diastolic blood pressure 55 mm[Hg] Rheu Leslie Work Phone: [facility] 10-22-2022 14:00-0400 Heart rate 51 /min Rheu Leslie Work Phone: [facility] 10-22-2022 14:00-0400 Respiratory rate 18 /min Rheu Leslie Work Phone: [facility] 10-22-2022 14:00-0400 Systolic blood pressure 111 mm[Hg] Rheu Leslie Work Phone: [facility] 10-22-2022 10:52-0400 SaO2% (BldA) [Mass fraction] 100 % Rheu Leslie Work Phone: [facility] 10-22-2022 09:39-0400 Body weight 70.31 kg Rheu Leslie Work Phone: [facility] 10-22-2022 09:03-0400 Body temperature 96.91 [degF] 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 Work Phone: [facility] 10-22-2022 09:03-0400 Diastolic blood pressure 79 mm[Hg] 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 Work Phone: [facility] 10-22-2022 09:03-0400 Heart rate 69 /min 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 Work Phone: [facility] 10-22-2022 09:03-0400 SaO2% (BldA) [Mass fraction] 98 % 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 Work Phone: [facility] 10-22-2022 09:03-0400 Systolic blood pressure 116 mm[Hg] 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 Work Phone: [facility] 09-17-2022 09:30-0400 Body temperature 98.01 [degF] Rheu Leslie Work Phone: [facility] 09-17-2022 09:30-0400 Body weight 70.31 kg Rheu Leslie Work Phone: [facility] 09-17-2022 09:30-0400 Diastolic blood pressure 80 mm[Hg] Rheu Leslie Work Phone: [facility] 09-17-2022 09:30-0400 Heart rate 85 /min Rheu Leslie Work Phone: [facility] 09-17-2022 09:30-0400 Respiratory rate 16 /min Rheu Leslie Work Phone: [facility] 09-17-2022 09:30-0400 Systolic blood pressure 139 mm[Hg] Rheu Leslie Work Phone: [facility] 04-14-2022 13:44-0500 Diastolic blood pressure 80 mm[Hg] Rheu Leslie Work Phone: [facility] 04-14-2022 13:44-0500 Heart rate 60 /min Rheu Leslie Work Phone: [facility] 04-14-2022 13:44-0500 Respiratory rate 18 /min Rheu Leslie Work Phone: [facility] 04-14-2022 13:44-0500 Systolic blood pressure 115 mm[Hg] Rheu Leslie Work Phone: [facility] 04-14-2022 10:24-0500 Body weight 66.22 kg 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 Work Phone: [facility] 04-14-2022 10:24-0500 Diastolic blood pressure 74 mm[Hg] 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 Work Phone: [facility] 04-14-2022 10:24-0500 Heart rate 72 /min Fariba Hill BUSINESS OPERATIONS MANAGER.BOILERMAKING SUPERVISOR Work Phone: [facility] 04-14-2022 10:24-0500 Systolic blood pressure 126 mm[Hg] Fariba Hill BUSINESS OPERATIONS MANAGER.BOILERMAKING SUPERVISOR Work Phone: [facility] 02-24-2022 13:00-0500 Diastolic blood pressure 46 mm[Hg] Rheu Leslie Work Phone: [facility] 02-24-2022 13:00-0500 Heart rate 62 /min Rheu Leslie Work Phone: [facility] 02-24-2022 13:00-0500 Respiratory rate 16 /min Rheu Leslie Work Phone: [facility] 02-24-2022 13:00-0500 Systolic blood pressure 96 mm[Hg] Rheu Leslie Work Phone: [facility] 02-24-2022 10:00-0500 Body temperature 97.11 [degF] Rheu Leslie Work Phone: [facility] 02-24-2022 10:00-0500 Body weight 69.85 kg Rheu Leslie Work Phone: [facility] 01-05-2022 13:38-0500 Diastolic blood pressure 68 mm[Hg] Rheu Leslie Work Phone: [facility] 01-05-2022 13:38-0500 Heart rate 50 /min Rheu Leslie Work Phone: [facility] 01-05-2022 13:38-0500 Respiratory rate 20 /min Rheu Leslie Work Phone: [facility] 01-05-2022 13:38-0500 Systolic blood pressure 115 mm[Hg] Rheu Leslie Work Phone: [facility] 01-05-2022 10:05-0500 Body weight 70.76 kg Fariba Hill BUSINESS OPERATIONS MANAGER.BOILERMAKING SUPERVISOR Work Phone: [facility] 01-05-2022 10:05-0500 Diastolic blood pressure 68 mm[Hg] Fariba Hill BUSINESS OPERATIONS MANAGER.BOILERMAKING SUPERVISOR Work Phone: [facility] 01-05-2022 10:05-0500 Heart rate 66 /min Fariba Hill BUSINESS OPERATIONS MANAGER.BOILERMAKING SUPERVISOR Work Phone: [facility] 01-05-2022 10:05-0500 Systolic blood pressure 128 mm[Hg] Fariba Hill BUSINESS OPERATIONS MANAGER.BOILERMAKING SUPERVISOR Work Phone: [facility] 11-13-2021 16:03-0400 Diastolic blood pressure 63 mm[Hg] Rheu Leslie Work Phone: [facility] 11-13-2021 16:03-0400 Heart rate 60 /min Rheu Leslie Work Phone: [facility] 11-13-2021 16:03-0400 Respiratory rate 18 /min Rheu Leslie Work Phone: [facility] 11-13-2021 16:03-0400 Systolic blood pressure 106 mm[Hg] Rheu Leslie Work Phone: [facility] 11-13-2021 13:20-0400 Body temperature 97 [degF] Rheu Leslie Work Phone: [facility] 11-13-2021 13:20-0400 Body weight 73.94 kg Rheu Leslie Work Phone: [facility] 09-03-2021 15:41-0400 Diastolic blood pressure 69 mm[Hg] Rheu Leslie Work Phone: [facility] 09-03-2021 15:41-0400 Heart rate 74 /min Rheu Leslie Work Phone: [facility] 09-03-2021 15:41-0400 Respiratory rate 18 /min Rheu Leslie Work Phone: [facility] 09-03-2021 15:41-0400 Systolic blood pressure 114 mm[Hg] Rheu Leslie Work Phone: [facility] 09-03-2021 12:55-0400 Body temperature 97.9 [degF] Rheu Leslie Work Phone: [facility] 09-03-2021 12:55-0400 Body weight 71.67 kg Rheu Leslie Work Phone: [facility] 08-06-2021 16:10-0400 Diastolic blood pressure 59 mm[Hg] Rheu Leslie Work Phone: [facility] 08-06-2021 16:10-0400 Heart rate 55 /min Rheu Leslie Work Phone: [facility] 08-06-2021 16:10-0400 Respiratory rate 18 /min Rheu Leslie Work Phone: [facility] 08-06-2021 16:10-0400 Systolic blood pressure 105 mm[Hg] Rheu Leslie Work Phone: [facility] 08-06-2021 13:00-0400 Body temperature 97.59 [degF] Rheu Leslie Work Phone: [facility] 08-06-2021 13:00-0400 Body weight 74.03 kg Rheu Leslie Work Phone: [facility] 07-23-2021 12:15-0400 Diastolic blood pressure 72 mm[Hg] Rheu Leslie Work Phone: [facility] 07-23-2021 12:15-0400 Heart rate 78 /min Rheu Leslie Work Phone: [facility] 07-23-2021 12:15-0400 Respiratory rate 18 /min Rheu Leslie Work Phone: [facility] 07-23-2021 12:15-0400 Systolic blood pressure 118 mm[Hg] Rheu Leslie Work Phone: [facility] 07-23-2021 08:54-0400 Body weight 74.39 kg 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 Work Phone: [facility] 07-23-2021 08:54-0400 Diastolic blood pressure 78 mm[Hg] 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 Work Phone: [facility] 07-23-2021 08:54-0400 Heart rate 66 /min 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 Work Phone: [facility] 07-23-2021 08:54-0400 Systolic blood pressure 122 mm[Hg] 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 Work Phone: [facility] 09-15-2020 17:13-0400 Body mass index (BMI) [Ratio] 25.69 kg/m2 [employer] Phone: 09-15-2020 17:13-0400 Body temperature 98.6 [degF] [employer] Work Phone: 09-15-2020 17:13-0400 Body weight 65.77 kg [employer] Phone: 09-15-2020 17:13-0400 Diastolic blood pressure 94 mm[Hg] [employer] Phone: 09-15-2020 17:13-0400 Heart rate 71 /min [employer] Work Phone: 09-15-2020 17:13-0400 Respiratory rate 14 /min [employer] Phone: 09-15-2020 17:13-0400 SaO2% (BldA) [Mass fraction] 96 % [employer] Work Phone: 09-15-2020 17:13-0400 Systolic blood pressure 136 mm[Hg] [employer] Work Phone: 03-15-2020 16:47-0500 Respiratory Rate 16 /min [employer] 03-15-2020 16:03-0500 Body Temperature 98.91 [degF] [employer] [place] [employer], [place] 03-15-2020 16:01-0500 BMI (Body Mass Index) 24.8 kg/m2 [employer] [facility] 03-15-2020 16:01-0500 Body weight 63.5 kg [employer] , [place] 03-15-2020 16:01-0500 Height 160 [facility] [place] 03-15-2020 15:58-0500 BP Diastolic 74 mm[Hg] [facility] , [place] 03-15-2020 15:58-0500 BP Systolic 128 mm[Hg] [facility] , [place] 03-15-2020 15:58-0500 Pulse (Heart Rate) 103 /min [facility], [place] 03-15-2020 15:58-0500 Pulse Oximetry 99 % [facility] , [place] 07-13-2019 07:18-0400 Body Temperature 97.9 [degF] [facility], [place] 07-13-2019 07:18-0400 BP Diastolic 68 mm[Hg] [facility] , [place] 07-13-2019 07:18-0400 BP Systolic 109 mm[Hg] [facility] , [place] 07-13-2019 07:18-0400 Pulse (Heart Rate) 75 /min [facility], [place] 07-13-2019 07:18-0400 Respiratory Rate 16 /min [facility], [place] 07-12-2019 09:51-0400 Pulse Oximetry 98 % [facility] , [place] 07-11-2019 20:57-0400 BMI (Body Mass Index) 32.42 kg/m2 [employer] [facility], [place] 07-11-2019 20:57-0400 Body weight 83.01 kg Tosha [facility] , [place] 07-11-2019 20:57-0400 Height 160 cm [facility] , [place] 05-12-2019 06:15-0400 BMI (Body Mass Index) 33.66 kg/m2 [facility] [place] 05-12-2019 06:15-0400 Body Temperature 99 [degF] [facility] [place] 05-12-2019 06:15-0400 Body weight 86.[address] [facility] , [place] 05-12-2019 06:15-0400 BP Diastolic 78 mm[Hg] [facility] , [place] 05-12-2019 06:15-0400 BP Systolic 130 mm[Hg] [facility] , [place] 05-12-2019 06:15-0400 Height 160 cm [facility] [place] 05-12-2019 06:15-0400 Pulse (Heart Rate) 97 /min [facility], [place] 05-12-2019 06:15-0400 Pulse Oximetry 100 % [facility] , [place] 05-12-2019 06:15-0400 Respiratory Rate 16 /min [facility] [place] , [place] 05-04-2019 12:47-0400 Body Temperature 96.21 [degF] [address] [facility] [place], [place] 05-04-2019 12:47-0400 BP Diastolic 73 mm[Hg] [address] [facility] [place] , [place] 05-04-2019 12:47-0400 BP Systolic 129 mm[Hg] [address] , [place] 05-04-2019 12:47-0400 Pulse (Heart Rate) 89 /min [address], [place] 05-04-2019 12:47-0400 Respiratory Rate 20 /min [address] [facility] [place] 01-28-2019 20:45-0500 BP Diastolic 71 mm[Hg] [place], [place] 01-28-2019 20:45-0500 BP Systolic 116 mm[Hg] [place] 01-28-2019 20:39-0500 Body Temperature 98.1 [degF] [facility] [place] 01-28-2019 20:39-0500 Pulse (Heart Rate) 91 /min [place] 01-28-2019 20:39-0500 Pulse Oximetry 99 % [place], [place] 01-28-2019 20:39-0500 Respiratory Rate 20 /min [facility] [place] 12-03-2018 19:32-0400 BP Diastolic 63 mm[Hg] [facility] [place] 12-03-2018 19:32-0400 BP Systolic 134 mm[Hg] [facility] , [place] 12-03-2018 19:32-0400 Pulse (Heart Rate) 95 /min [facility], [place] 12-03-2018 19:32-0400 Respiratory Rate 16 /min [facility] BRIAN [place] 12-03-2018 17:37-0400 BMI (Body Mass Index) 30.11 kg/m2 [facility], BRIAN 12-03-2018 17:37-0400 Body Temperature 97.9 [degF] [facility] B[place] 12-03-2018 17:37-0400 Body weight 77.11 kg [facility] BRIAN 12-03-2018 17:37-0400 Pulse Oximetry 99 % [place] Encounters Encounter Date Encounter Type Care Provider Facility Start: 07-16-2023 ambulatory [facility] Provider Rheumatolo gy Comment on above: Infusion Wednesday Start: 07-16-2023 E-mail encounter fro m caregiver [facility] Provider Rheumatology Start: 06-28-2023 [facility] Leslie Work Phone: Infusion Start: 06-25-2023 Telephone encounter Fariba carey BUSINESS OPERATIONS MANAGER.BOILERMAKING SUPERVISOR Work Phone: Infusion Start: 06-21-2023 ambulatory [facility] Infusion Comment on above: Infusion Wednesday Start: 06-21-2023 E-mail encounter fro m caregiver [facility] Provider Infusion Start: 06-20-2023 Orders Only 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 Work Phone: Rheumatology Start: 05-28-2023 Telephone encounter Fariba carey BUSINESS OPERATIONS MANAGER.BOILERMAKING SUPERVISOR Work Phone: Infusion Start: 05-26-2023 End: 05-26-2023 ambulatory [facility] Facility:[facility] Start: 05-26-2023 End: 05-26-2023 Office outpatient visit 15 minutes Silvia Cooper APRN.BOILERMAKING SUPERVISOR Work Phone: [facility] Comment on above: Wheezing (Primary Dx ) Start: 05-26-2023 End: 05-26-2023 ambulatory [facility] Facility:[facility] Start: 05-26-2023 End: 05-26-2023 Patient encounter procedure 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 Work Phone: Rheumatology Comment on above: Seropositive rheumat oid arthritis (HCC) (Primary Dx); Synovitis; Vitamin D deficiency; Localized superficial swelling, mass, or lump; Encounter to discuss test results; Encounter for medication review and counseling; Medication monitoring encounter Start: 05-26-2023 End: 05-26-2023 ambulatory Rheu Chair 7 Leslie Work Phone: Infusion Comment on above: Seropositive rheumat oid arthritis (HCC) (Primary Dx); Vitamin D deficiency Start: 05-24-2023 ambulatory [facility] Infusion Comment on above: Infusion Wednesday Start: 05-24-2023 E-mail encounter margarito haider caregiver [facility] Start: 05-14-2023 Telephone encounter Sj ( Ang) [facility] Comment on above: Appointment Start: 05-03-2023 End: 05-03-2023 ambulatory NIYA JEANNA Not Available Start: 04-28-2023 End: 04-28-2023 Patient encounter procedure 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 Work Phone: Rheumatology Comment on above: Seropositive rheumat oid arthritis (HCC) (Primary Dx); Localized superficial swelling, mass, or lump; Encounter for medication review and counseling; Synovitis; Encounter to discuss test results; Medication monitoring encounter; Smoker Start: 04-28-2023 Telephone encounter Fariba carey APRN.BOILERMAKING SUPERVISOR Work Phone: Infusion Start: 04-28-2023 End: 04-28-2023 ambulatory SELF Facility:[facility] Start: 04-28-2023 End: 04-28-2023 ambulatory Rheu Chair 9 Leslie Work Phone: Infusion Comment on above: Seropositive rheumat oid arthritis (HCC) (Primary Dx) Start: 04-25-2023 Orders Only 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 Work Phone: Rheumatology Start: 04-20-2023 Telephone encounter Juan Daniel Mcarthur MD Work Phone: Rheumatology Comment on above: No Show (To f/u apt) Start: 03-31-2023 End: 03-31-2023 ambulatory Rheu Chair 4 Leslie Work Phone: Infusion Comment on above: Seropositive rheumat oid arthritis (HCC) (Primary Dx) Start: 03-29-2023 ambulatory [facility] Provider Infusion Comment on above: Infusion for 03/31/23 Start: 03-29-2023 E-mail encounter margarito haider caregiver [facility] Start: 03-28-2023 Orders Only 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 Work Phone: Rheumatology Start: 03-11-2023 End: 03-11-2023 ambulatory NIYA AICHHOLZ Not Available Start: 03-01-2023 End: 03-01-2023 ambulatory TINO SOREN BLAKE Facility:[facility] Start: 02-16-2023 Telephone encounter Fariba carey BUSINESS OPERATIONS MANAGER.BOILERMAKING SUPERVISOR Work Phone: Infusion Start: 02-01-2023 Telephone encounter Nurse Lizbeth [facility] Leslie Work Phone: Infusion Start: 01-29-2023 Orders Only 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 Work Phone: Rheumatology Comment on above: Infusion 02/13 Start: 01-25-2023 End: 01-25-2023 ambulatory NIYA AICHHOLZ Not Available Start: 01-20-2023 Telephone encounter Fariba carey APRN.BOILERMAKING SUPERVISOR Work Phone: Rheumatology Comment on above: Medication Problem Start: 01-20-2023 End: 01-20-2023 ambulatory FARIBA HILL Facility:[facility] Start: 01-20-2023 End: 01-20-2023 Patient encounter procedure 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 Work Phone: Rheumatology Comment on above: Seropositive rheumat oid arthritis (HCC) (Primary Dx); Pain in right foot; Encounter for monitoring leflunomide therapy; Encounter for medication review and counseling; Synovitis; Vitamin D deficiency; Medication monitoring encounter; Encounter to discuss test results Start: 12-31-2022 End: 12-31-2022 ambulatory TINO SOREN BLAKE Facility:[facility] Start: 12-31-2022 End: 12-31-2022 ambulatory Lizbeth Wood Leslie Work Phone: Infusion Comment on above: Seropositive rheumat oid arthritis (HCC) (Primary Dx) Start: 12-30-2022 Orders Only Fariba Hill BUSINESS OPERATIONS MANAGER.BOILERMAKING SUPERVISOR Work Phone: Rheumatology Start: 12-29-2022 ambulatory [facility] Infusion Comment on above: Infusion Start: 12-29-2022 E-mail encounter margarito haider caregiver [facility] Provider [facility] Start: 12-17-2022 Telephone encounter Fariba carey BUSINESS OPERATIONS MANAGER.BOILERMAKING SUPERVISOR Work Phone: Rheumatology Comment on above: Results Start: 12-14-2022 Telephone encounter Fariba Shara Rachel carey BUSINESS OPERATIONS MANAGER.BOILERMAKING SUPERVISOR Work Phone: [facility] [place] Comment on above: Lab Orders Start: 12-11-2022 Telephone encounter Fariba carey BUSINESS OPERATIONS MANAGER.BOILERMAKING SUPERVISOR Work Phone: Rheumatology Comment on above: Results Start: 11-27-2022 End: 11-27-2022 ambulatory TINO BLAKE Facility:[facility] Start: 11-27-2022 End: 11-27-2022 ambulatory Rheu Chair 9 Leslie Work Phone: Infusion Comment on above: Seropositive rheumat oid arthritis (HCC) (Primary Dx) Start: 11-25-2022 [facility] Leslie Work Phone: Infusion Start: 11-11-2022 Telephone encounter Tino Blake MD Work Phone: [place] Start: 10-22-2022 End: 10-22-2022 ambulatory FARIBA HILL Facility:[facility] Start: 10-22-2022 End: 10-22-2022 ambulatory Rheu Chair 7 Leslie Work Phone: Infusion Comment on above: Seropositive rheumat oid arthritis (HCC) (Primary Dx); Vitamin D deficiency; Synovitis Start: 10-22-2022 End: 10-22-2022 Patient encounter procedure 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 Work Phone: Rheumatology Comment on above: Seropositive rheumat oid arthritis (HCC) (Primary Dx); Synovitis; Vitamin D deficiency; Encounter for monitoring leflunomide therapy; Encounter for medication review and counseling; Encounter to discuss test results; Counseling on health promotion and disease prevention; Smoker Start: 10-20-2022 ambulatory [facility] Infusion Comment on above: Infusion Start: 10-20-2022 E-mail encounter fro m caregiver [facility] Provider [facility] Start: 09-17-2022 End: 09-17-2022 ambulatory TINO BLAKE Facility:[facility] Start: 09-17-2022 End: 09-17-2022 ambulatory Rheu Chair 8 Leslie Work Phone: Infusion Comment on above: Seropositive rheumat oid arthritis (HCC) (Primary Dx) Start: 09-15-2022 ambulatory 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 Work Phone: Infusion Comment on above: Infusion for 09/17/22 Start: 09-15-2022 E-mail encounter fro m caregiver 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 Work Phone: [facility] Start: 08-31-2022 Orders Only 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 Work Phone: Rheumatology Start: 08-05-2022 Telephone encounter Juan Daniel Mcarthur MD Work Phone: [facility] Comment on above: Insurance Authorizat ion (Prior Auth Delayed: P2P requested for [place]) Start: 07-24-2022 Orders Only 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 Work Phone: Rheumatology Start: 06-23-2022 End: 06-23-2022 ambulatory Rheu Chair 5 Leslie Work Phone: Infusion Comment on above: Seropositive rheumat oid arthritis (HCC) (Primary Dx); Vitamin D deficiency Start: 06-22-2022 ambulatory 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 Work Phone: Infusion Comment on above: Infusion Confirmatio n Start: 06-22-2022 E-mail encounter fro m caregiver 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 Work Phone: [facility] Start: 04-28-2022 End: 04-28-2022 ambulatory 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 Work Phone: Rheumatology Comment on above: Seropositive rheumat oid arthritis (HCC) (Primary Dx) Start: 04-28-2022 End: 04-28-2022 Telemedicine consultation with patient Fariba Haider Liz FIGUEROA.BOILERMAKING SUPERVISOR Work Phone: [facility] Start: 04-15-2022 Orders Only 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 Work Phone: Rheumatology Comment on above: Results Start: 04-14-2022 End: 04-14-2022 ambulatory Rheu Chair 2 Leslie Work Phone: Infusion Comment on above: Seropositive rheumat oid arthritis (HCC) (Primary Dx); Vitamin D deficiency Start: 04-14-2022 End: 04-14-2022 Patient encounter procedure 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 Work Phone: Rheumatology Comment on above: Seropositive rheumat oid arthritis (HCC) (Primary Dx); Vitamin D deficiency; Smoker; Pain in left foot; Encounter for medication review and counseling; Encounter to discuss test results; Encounter for monitoring leflunomide therapy; Counseling on health promotion and disease prevention; High risk medication use Start: 04-10-2022 Orders Only 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 Work Phone: Rheumatology Start: 03-07-2022 Refill 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 Work Phone: Rheumatology Comment on above: Refill Request Start: 02-25-2022 Telephone encounter Fariba carey APRN.BOILERMAKING SUPERVISOR Work Phone: Rheumatology Comment on above: Results Start: 02-24-2022 End: 02-24-2022 Subsequent hospital visit by physician Xr [facility] Radiology Comment on above: Left without seen Start: 02-24-2022 End: 02-24-2022 ambulatory Rheu Chair 7 Leslie Work Phone: Infusion Comment on above: Seropositive rheumat oid arthritis (HCC) (Primary Dx) Start: 02-20-2022 Telephone encounter Fariba carey APRN.BOILERMAKING SUPERVISOR Work Phone: Infusion Comment on above: Patient Question Start: 02-03-2022 ambulatory Pcp (Historical) [facility] Start: 01-30-2022 Orders Only 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 Work Phone: Rheumatology Start: 01-26-2022 Telephone encounter Juan Daniel Mcarthur MD Work Phone: [facility] Comment on above: Insurance Authorizat ion (Prior auth delayed: Additional Info Needed (Renflexis)) Start: 01-06-2022 [facility] [place] Comment on above: Smoking Cessation Patient Update Start: 01-05-2022 End: 01-05-2022 ambulatory Rheu Chair 2 Leslie Work Phone: Infusion Comment on above: Vitamin D deficiency (Primary Dx); Seropositive rheumatoid arthritis (HCC) Start: 01-05-2022 End: 01-05-2022 Patient encounter procedure 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 Work Phone: Rheumatology Comment on above: Seropositive rheumat oid arthritis (HCC) (Primary Dx); Smoker; Pain in left foot; Encounter for medication review and counseling; Encounter to discuss test results; Encounter for monitoring leflunomide therapy; Counseling on health promotion and disease prevention; High risk medication use; Rheumatoid arthritis flare (HCC) Start: 01-02-2022 ambulatory 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 Work Phone: Infusion Comment on above: Infusion for tomorro w. Start: 01-02-2022 E-mail encounter fro m caregiver 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 Work Phone: [facility] Start: 01-02-2022 Telephone encounter Fariba carey APRN.BOILERMAKING SUPERVISOR Work Phone: Infusion Comment on above: Patient Question Start: 12-16-2021 Orders Only 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 Work Phone: Rheumatology Start: 12-15-2021 Telephone encounter Fariba carey APRN.BOILERMAKING SUPERVISOR Work Phone: Infusion Start: 11-13-2021 End: 11-13-2021 ambulatory Rheu Chair 5 Leslie Work Phone: Infusion Comment on above: Seropositive rheumat oid arthritis (HCC) (Primary Dx); Vitamin D deficiency Start: 11-11-2021 ambulatory 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 Work Phone: Infusion Comment on above: Infusion for tomorro w Start: 11-11-2021 E-mail encounter fro m caregiver 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 Work Phone: [facility] Start: 11-11-2021 Telephone encounter Fariba Shara Rachel carey APRN.BOILERMAKING SUPERVISOR Work Phone: Infusion Comment on above: Patient Question Start: 11-06-2021 Orders Only 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 Work Phone: Rheumatology Start: 11-03-2021 End: 11-04-2021 ambulatory NONE LISTED REQUEST Facility: Start: 10-30-2021 Orders Only 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 Work Phone: Rheumatology Start: 10-29-2021 End: 10-29-2021 ambulatory Fariba Shara Liz FIGUEROA.BOILERMAKING SUPERVISOR Work Phone: Rheumatology Comment on above: Seropositive rheumat oid arthritis (HCC) (Primary Dx); Vitamin D deficiency; H/O noncompliance with medical treatment, presenting hazards to health; Encounter for medication review and counseling; Encounter to discuss test results; Counseling on health promotion and disease prevention; Encounter for monitoring leflunomide therapy; Medication monitoring encounter; Rheumatoid arthritis flare (HCC) Start: 10-29-2021 End: 10-29-2021 Telemedicine consultation with patient Fariba Ramoscherry IGLESIASBOILERMAKING SUPERVISOR Work Phone: [facility] Start: 10-28-2021 Telephone encounter Fariba carey APRN.BOILERMAKING SUPERVISOR Work Phone: Infusion Start: 10-24-2021 Orders Only 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 Work Phone: Rheumatology Start: 10-07-2021 End: 10-07-2021 ambulatory NONE LISTED REQUEST Facility: Start: 09-05-2021 Encounter for preprocedural laboratory examination DR PATRICIO RAM . [facility] Start: 09-05-2021 End: 09-05-[address] PATRICIO RAM . Facility:[facility] Start: 09-04-2021 End: 09-05-[address] PATRICIO RAM . Facility:[facility] Start: 09-04-2021 End: 09-05-2021 Encounter for preprocedural laboratory examination DR PATRICIO RAM . Facility:[facility] Start: 09-03-2021 End: 09-03-2021 ambulatory Rheu Chair 6 Leslie Work Phone: Infusion Comment on above: Dermatomyositis (HCC ) (Primary Dx); Seropositive rheumatoid arthritis (HCC); Vitamin D deficiency Start: 09-02-2021 End: 09-03-[address] PATRICIO RAM . Facility:[facility] Start: 09-01-2021 Telephone encounter Fariba carey BUSINESS OPERATIONS MANAGER.BOILERMAKING SUPERVISOR Work Phone: Infusion Comment on above: Question Start: 08-15-2021 End: 08-15-2021 ambulatory ADRIANA STEPHENS Facility:[facility] Start: 08-07-2021 Telephone encounter Fariba carey BUSINESS OPERATIONS MANAGER.BOILERMAKING SUPERVISOR Work Phone: Rheumatology Comment on above: Results Start: 08-06-2021 End: 08-06-2021 ambulatory Rheu Chair 1 Leslie Work Phone: Infusion Comment on above: Seropositive rheumat oid arthritis (HCC) (Primary Dx); Vitamin D deficiency Start: 07-24-2021 Orders Only Juan Daniel sanchez MD Work Phone: Rheumatology Start: 07-23-2021 End: 07-23-2021 ambulatory Rheu Chair 4 Leslie Work Phone: Infusion Comment on above: Seropositive rheumat oid arthritis (HCC) (Primary Dx) Start: 07-23-2021 End: 07-23-2021 Patient encounter procedure Fariba Hill BUSINESS OPERATIONS MANAGER.BOILERMAKING SUPERVISOR Work Phone: Rheumatology Comment on above: Seropositive rheumat oid arthritis (HCC) (Primary Dx); Medication monitoring encounter; H/O noncompliance with medical treatment, presenting hazards to health; Encounter for medication review and counseling; Encounter to discuss test results; Counseling on health promotion and disease prevention; Encounter for monitoring leflunomide therapy Start: 07-22-2021 Telephone encounter Fariba carey BUSINESS OPERATIONS MANAGER.BOILERMAKING SUPERVISOR Work Phone: Infusion Comment on above: Question; Return Pro vider Call Start: 07-15-2021 Telephone encounter Fariba carey BUSINESS OPERATIONS MANAGER.BOILERMAKING SUPERVISOR Work Phone: Rheumatology Comment on above: Appointment Start: 07-11-2021 End: 07-11-2021 Emergency department patient visit [facility] Start: 07-08-2021 Telephone encounter Fariba carey BUSINESS OPERATIONS MANAGER.BOILERMAKING SUPERVISOR Work Phone: [facility] Comment on above: Insurance Authorizat ion (Prior Auth Delayed: Additional Info needed for Renflexis) Start: 07-04-2021 Orders Only Juan Daniel sanchez MD Work Phone: Rheumatology Start: 06-24-2021 Telephone encounter Fariba carey BUSINESS OPERATIONS MANAGER.BOILERMAKING SUPERVISOR Work Phone: Rheumatology Comment on above: Medication Problem Start: 06-17-2021 Telephone encounter Fariba carey BUSINESS OPERATIONS MANAGER.BOILERMAKING SUPERVISOR Work Phone: Rheumatology Comment on above: Results Start: 09-15-2020 End: 09-15-2020 Emergency department patient visit [facility] Start: 09-15-2020 End: 09-15-2020 Emergency department patient visit [facility] ED Comment on above: Pneumonia of both tyra ngs due to infectious organism, unspecified part of lung (Primary Dx) Start: 03-15-2020 End: 03-15-2020 Emergency department patient visit [facility] ED Comment on above: Suspected COVID-19 v irus infection (Primary Dx) Start: 07-11-2019 End: 07-13-2019 Evaluation and management of inpatient Tosha Tanisha Viera Work Phone: [facility] Labor and Delivery Start: 07-06-2019 End: 07-06-2019 Subsequent hospital visit by physician [facility] Laboratory Comment on above: 38 weeks gestation o f Start: 05-12-2019 End: 05-12-2019 Emergency department patient visit Mk Mayo Work Phone: [facility] ED Comment on above: Superficial thrombop hlebitis of left upper extremity (Primary Dx) Start: 05-04-2019 End: 05-04-2019 Subsequent hospital visit by physician [facility] Op Treatment 01 [facility] Specialty Clinic (MOB) Start: 05-03-2019 End: 05-03-2019 Subsequent hospital visit by physician [facility] Op Treatment 01 [facility] Specialty Clinic (MOB) Comment on above: Canceled (Patient) Start: 05-02-2019 End: 05-02-2019 Subsequent hospital visit by physician [facility] Op Treatment 01 [facility] Specialty Clinic (MOB) Comment on above: Canceled (Patient) Start: 05-01-2019 End: 05-01-2019 Subsequent hospital visit by physician [facility] Laboratory Comment on above: Encounter for superv ision of other normal in third trimester; 29 weeks gestation of Start: 04-04-2019 End: 04-04-2019 Subsequent hospital visit by physician [facility] Laboratory Comment on above: Acute nasopharyngiti s Start: 2019 End: 02-19-2019 Subsequent hospital visit by physician [facility] Ultrasound Comment on above: Right upper quadrant abdominal pain Start: 01-28-2019 End: 01-28-2019 Emergency department patient visit [facility] ED Comment on above: Carpal tunnel syndro me of right wrist (Primary Dx) Start: 01-16-2019 End: 01-16-2019 Subsequent hospital visit by physician [facility] Laboratory Comment on above: Screening for cervic al cancer Start: 12-19-2018 End: 12-19-2018 Subsequent hospital visit by physician [facility] Laboratory Comment on above: Encounter for superv ision of normal in first trimester, unspecified ; Screening for cystic fibrosis; Screening, , for anatomic survey Start: 12-03-2018 End: 12-03-2018 Emergency department patient visit [facility] ED Comment on above: Threatened miscarria ge (Primary Dx); Yeast infection Procedures Date Procedure Procedure Detail Performing Clinician Start: 05-26-2023 C-reactive protein 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 Work Phone: Start: 05-26-2023 CREATININE BLD Fariba iverson BUSINESS OPERATIONS MANAGER.BOILERMAKING SUPERVISOR Work Phone: Start: 05-26-2023 Transferase alanine amino alt sgpt Fariba Hill BUSINESS OPERATIONS MANAGER.BOILERMAKING SUPERVISOR Work Phone: Start: 11-27-2022 Blood count complete auto&auto difrntl wbc Fariba Ramosick BUSINESS OPERATIONS MANAGER.BOILERMAKING SUPERVISOR Work Phone: Start: 11-27-2022 C-reactive protein Fariba Ramosick BUSINESS OPERATIONS MANAGER.BOILERMAKING SUPERVISOR Work Phone: Start: 10-22-2022 Blood count complete auto&auto difrntl wbc Fariba Ramosick BUSINESS OPERATIONS MANAGER.BOILERMAKING SUPERVISOR Work Phone: Start: 10-22-2022 C-reactive protein Fariba Ramosick BUSINESS OPERATIONS MANAGER.BOILERMAKING SUPERVISOR Work Phone: Start: 06-23-2022 Blood count complete auto&auto difrntl wbc Fariba Ramosick BUSINESS OPERATIONS MANAGER.BOILERMAKING SUPERVISOR Work Phone: Start: 02-24-2022 Blood count complete auto&auto difrntl wbc Fariba Ramosick BUSINESS OPERATIONS MANAGER.BOILERMAKING SUPERVISOR Work Phone: Start: 02-24-2022 C-reactive protein Fariba Ramosick BUSINESS OPERATIONS MANAGER.BOILERMAKING SUPERVISOR Work Phone: Start: 01-05-2022 25 hydroxy includes fractions if performed Fariba Shara Liz FIGUEROA.BOILERMAKING SUPERVISOR Work Phone: Start: 09-03-2021 Urine test visual color cmprsn meths Fariba Haider Liz BUSINESS OPERATIONS MANAGER.BOILERMAKING SUPERVISOR Work Phone: Start: 08-06-2021 Urine test visual color cmprsn meths Fariba Ramosick BUSINESS OPERATIONS MANAGER.BOILERMAKING SUPERVISOR Work Phone: Start: 07-23-2021 Urine test visual color cmprsn meths Fariba Ramosick BUSINESS OPERATIONS MANAGER.BOILERMAKING SUPERVISOR Work Phone: Start: 09-15-2020 Radiologic exam ches t 2 views Loida Caro PA-C Work Phone: Start: 07-11-2019 Blood count complete auto&auto difrntl wbc Tosha Viera Work Phone: Start: 07-11-2019 Drug screen class list a Tosha Viera Work Phone: Start: 05-01-2019 Blood count hemoglobin Tosha Viera Work Phone: Start: 05-01-2019 Blood typing serolog ic rh (d) Tosha Viera Work Phone: Start: 05-01-[address] gtt 3 specimens Tosha Viera Work Phone: Start: 04-04-2019 Iaadiadoo influenza Elda an Tanisha Viera Work Phone: Start: 2019 Us abdominal real ti me w/image limited Tosha Viera BUSINESS OPERATIONS MANAGER - CNM Work Phone: Start: 12-19-2018 Antibody screen Start: 12-19-2018 Obstetric panel Tosha Viera Work Phone: Start: 12-19-2018 Blood typing serologic abo Tosha Viera Work Phone: Start: 12-19-2018 Drug screen, qualitate/multi Tosha Viera Work Phone: Start: 12-03-2018 Urinalysis microscopic only [employer] Work Phone: Start: 12-03-2018 Urnls dip stick/tabl et rgnt auto w/o microscopy [employer] Work Phone: Start: 12-03-2018 Smr prim src wet jude nt nfct agt [employer] Work Phone: Start: 12-03-2018 Blood count complete automated [employer] Work Phone: Start: 12-03-2018 Blood typing serologic abo [employer] Work Phone: Start: 12-03-2018 Comprehensive metabo lic panel [employer] Work Phone: Start: 12-03-2018 Gonadotropin chorion ic quantitative [employer] Work Phone: Start: 12-30-2017 Adult depression scr eening assessment Juan Daniel Leos MD Work Phone: Plan of Treatment Date Care Activity Detail Author Start: 06-03-2031 Urine microalbumin profile [facility] Start: 01-17-2024 [facility] Start: 01-17-2024 Screening for malignant neoplasm of cervix [facility] Start: 11-10-2023 End: 11-10-2023 ambulatory 11/10/2023 11:30 AM EDT Infusion Center Infusion [address] [place] [address] [facility] Infusion Comment on above: [facility] Start: 11-10-2023 End: 11-10-2023 Patient encounter procedure 11/10/2023 11:00 AM EDT Office Visit Rheumatology [address] [place] [address] Fariba Hill, BUSINESS OPERATIONS MANAGER.BOILERMAKING SUPERVISOR [address] [place] [address] Add on per Fariba Hill Rheumatology Comment on above: Add on per Fariba Hill Start: 10-24-2023 Influenza vaccination Influenza Vaccine (Season Ended) [facility] Start: 10-13-2023 End: 10-13-2023 ambulatory 10/13/2023 11:30 AM EDT Infusion Center Infusion [address] [place] [address] [facility] Infusion Comment on above: [facility] Start: 10-13-2023 End: 10-13-2023 Patient encounter procedure 10/13/2023 11:00 AM EDT Office Visit Rheumatology [address] [facility] [place] [address] Fariba Hill, BUSINESS OPERATIONS MANAGER.BOILERMAKING SUPERVISOR [address] [place] [address] Add on per Fariba Hill Rheumatology Comment on above: Add on per Fariba Hill Start: 09-15-2023 End: 09-15-2023 Patient encounter procedure 09/15/2023 1:00 PM EDT Office Visit Rheumatology [address] [facility] [place] [address] Fariba Hill, BUSINESS OPERATIONS MANAGER.BOILERMAKING SUPERVISOR [address] [place] [address] Add on per Fariba Hill Rheumatology Comment on above: Add on per Fariba Hill Start: 08-18-2023 End: 08-18-2023 ambulatory 08/18/2023 11:30 AM EDT Infusion Center Infusion [address] [place] [address] [facility] Infusion Comment on above: [facility] Start: 07-21-2023 End: 07-21-2023 Patient encounter procedure 07/21/2023 1:00 PM EDT Office Visit Rheumatology [address] [facility] [place] [address] Fariba Hill, BUSINESS OPERATIONS MANAGER.BOILERMAKING SUPERVISOR [address] [place] [address] Add on per Fariba Hill Rheumatology Comment on above: Add on per Fariba Hill Start: 07-21-2023 End: 07-21-2023 ambulatory 07/21/2023 11:30 AM EDT Infusion Center Infusion [address] [facility] [place] [address] [facility] Infusion Comment on above: [facility] Start: 06-23-2023 End: 06-23-2023 ambulatory Infusion Comment on above: [facility] Needs to be at work at 2:00 Start: 06-23-2023 End: 06-23-2023 Patient encounter procedure 06/23/2023 10:30 AM EDT Office Visit Rheumatology [address] [place] [address] Fariba Hill, BUSINESS OPERATIONS MANAGER.BOILERMAKING SUPERVISOR [address] [place] [address] Add on per Fariba Hill Rheumatology Comment on above: Add on per Fariba Hill Start: 02-22-2023 Behavioral Health Screening Behavioral Health Screening [facility] Start: 02-22-2023 Depression Assessment Depression Assessment [facility] Start: 01-18-2023 End: 04-19-2023 Alanine aminotransferase [Enzymatic activity/volume] in Serum or Plasma ALT/SGPT Lab Routine Seropositive rheumatoid arthritis (HCC) Expected: 01/18/2023 (Approximate), Expires: 04/19/2023 [facility] Work Phone: Comment on above: Expected: 01/18/2023 (Approximate), Expi res: 04/19/2023 Start: 01-18-2023 End: 04-19-2023 Aspartate aminotransferase [Enzymatic activity/volume] in Serum or Plasma AST/SGOT BLD Lab Routine Seropositive rheumatoid arthritis (HCC) Expected: 01/18/2023 (Approximate), Expires: 04/19/2023 [facility] Work Phone: Comment on above: Expected: 01/18/2023 (Approximate), Expi res: 04/19/2023 Start: 01-18-2023 End: 04-19-2023 CBC W Auto Differential panel - Blood CBC + DIFF Lab Routine Seropositive rheumatoid arthritis (HCC) Expected: 01/18/2023 (Approximate), Expires: 04/19/2023 [facility] Work Phone: Comment on above: Expected: 01/18/2023 (Approximate), Expi res: 04/19/2023 Start: 01-18-2023 End: 04-19-2023 CREATININE BLD CREATININE BLD Lab Routine Seropositive rheumatoid arthritis (HCC) Expected: 01/18/2023 (Approximate), Expires: 04/19/2023 [facility] Work Phone: Comment on above: Expected: 01/18/2023 (Approximate), Expi res: 04/19/2023 Start: 12-12-2022 End: 02-11-2023 C reactive protein [Mass/volume] in Serum or Plasma C-REACTIVE PROTEIN (CRP) Lab Routine Seropositive rheumatoid arthritis (HCC) Expected: 12/12/2022 (Approximate), Expires: 02/11/2023 [facility] Work Phone: Comment on above: Expected: 12/12/2022 (Approximate), Expi res: 02/11/2023 Start: 12-12-2022 End: 02-11-2023 CBC W Auto Differential panel - Blood CBC + DIFF Lab Routine Seropositive rheumatoid arthritis (HCC) Expected: 12/12/2022 (Approximate), Expires: 02/11/2023 [facility] Work Phone: Comment on above: Expected: 12/12/2022 (Approximate), Expi res: 02/11/2023 Start: 12-12-2022 End: 02-11-2023 Comprehensive metabolic 2000 panel - Serum or Plasma COMP METABOLIC PANEL Lab Routine Seropositive rheumatoid arthritis (HCC) Expected: 12/12/2022 (Approximate), Expires: 02/11/2023 [facility] Work Phone: Comment on above: Expected: 12/12/2022 (Approximate), Expi res: 02/11/2023 Start: 12-12-2022 End: 02-11-2023 Erythrocyte sedimentation rate SED RATE WESTERGREN Lab Routine Seropositive rheumatoid arthritis (HCC) Expected: 12/12/2022 (Approximate), Expires: 02/11/2023 [facility] Work Phone: Comment on above: Expected: 12/12/2022 (Approximate), Expi res: 02/11/2023 Start: 12-11-2022 End: 03-12-2023 Alanine aminotransferase [Enzymatic activity/volume] in Serum or Plasma ALT/SGPT Lab Routine Seropositive rheumatoid arthritis (HCC) Expected: 12/11/2022, Expires: 03/12/2023 [facility] Work Phone: Comment on above: Expected: 12/11/2022, Expires: 4 Start: 12-11-2022 End: 03-12-2023 Aspartate aminotransferase [Enzymatic activity/volume] in Serum or Plasma AST/SGOT BLD Lab Routine Seropositive rheumatoid arthritis (HCC) Expected: 12/11/2022, Expires: 03/12/2023 [facility] Work Phone: Comment on above: Expected: 12/11/2022, Expires: 4 Start: 10-23-2022 Influenza vaccination [facility] Start: 06-13-2022 End: 08-13-2022 25-hydroxyvitamin D3 [Mass/volume] in Serum or Plasma VITAMIN D 25 HYDROXY Lab Routine Vitamin D deficiency Expected: 06/13/2022 (Approximate), Expires: 08/13/2022 [facility] Work Phone: Comment on above: Expected: 06/13/2022 (Approximate), Expi res: 08/13/2022 Start: 06-12-2022 End: 08-12-2022 C reactive protein [Mass/volume] in Serum or Plasma C-REACTIVE PROTEIN (CRP) Lab Routine Seropositive rheumatoid arthritis (HCC) Expected: 06/12/2022 (Approximate), Expires: 08/12/2022 [facility] Work Phone: Comment on above: Expected: 06/12/2022 (Approximate), Expi res: 08/12/2022 Start: 06-12-2022 End: 08-12-2022 CBC W Auto Differential panel - Blood CBC + DIFF Lab Routine Seropositive rheumatoid arthritis (HCC) Expected: 06/12/2022 (Approximate), Expires: 08/12/2022 [facility] Work Phone: Comment on above: Expected: 06/12/2022 (Approximate), Expi res: 08/12/2022 Start: 06-12-2022 End: 08-12-2022 Comprehensive metabolic 2000 panel - Serum or Plasma COMP METABOLIC PANEL Lab Routine Seropositive rheumatoid arthritis (HCC) Expected: 06/12/2022 (Approximate), Expires: 08/12/2022 [facility] Work Phone: Comment on above: Expected: 06/12/2022 (Approximate), Expi res: 08/12/2022 Start: 06-12-2022 End: 08-12-2022 Erythrocyte sedimentation rate SED RATE WESTERGREN Lab Routine Seropositive rheumatoid arthritis (HCC) Expected: 06/12/2022 (Approximate), Expires: 08/12/2022 [facility] Work Phone: Comment on above: Expected: 06/12/2022 (Approximate), Expi res: 08/12/2022 Start: 04-14-2022 End: 06-14-2022 25-hydroxyvitamin D3 [Mass/volume] in Serum or Plasma [facility] Work Phone: Comment on above: Expected: 04/14/2022, Expires: 3 Start: 02-22-2022 DEPRESSION ASSESSMENT DEPRESSION ASSESSMENT [facility] Start: 11-12-2021 End: 01-12-2022 25-hydroxyvitamin D3 [Mass/volume] in Serum or Plasma VITAMIN D 25 HYDROXY Lab Routine Vitamin D deficiency Expected: 11/12/2021, Expires: 01/12/2022 [facility] Work Phone: Comment on above: Expected: 11/12/2021, Expires: 2 Start: 11-12-2021 End: 01-12-2022 C reactive protein [Mass/volume] in Serum or Plasma C-REACTIVE PROTEIN (CRP) Lab Routine Seropositive rheumatoid arthritis (HCC) Expected: 11/12/2021, Expires: 01/12/2022 [facility] Work Phone: Comment on above: Expected: 11/12/2021, Expires: 2 Start: 11-12-2021 End: 01-12-2022 CBC W Auto Differential panel - Blood CBC + DIFF Lab Routine Seropositive rheumatoid arthritis (HCC) Expected: 11/12/2021, Expires: 01/12/2022 [facility] Work Phone: Comment on above: Expected: 11/12/2021, Expires: 2 Start: 11-12-2021 End: 01-12-2022 Comprehensive metabolic 2000 panel - Serum or Plasma COMP METABOLIC PANEL Lab Routine Seropositive rheumatoid arthritis (HCC) Expected: 11/12/2021, Expires: 01/12/2022 [facility] Work Phone: Comment on above: Expected: 11/12/2021, Expires: 2 Start: 11-12-2021 End: 01-12-2022 Erythrocyte sedimentation rate SED RATE WESTERGREN Lab Routine Seropositive rheumatoid arthritis (HCC) Expected: 11/12/2021, Expires: 01/12/2022 [facility] Work Phone: Comment on above: Expected: 11/12/2021, Expires: 2 Start: 10-23-2021 Influenza vaccination [facility] Start: 09-06-2021 End: 11-06-2021 25-hydroxyvitamin D3 [Mass/volume] in Serum or Plasma VITAMIN D 25 HYDROXY Lab Routine Vitamin D deficiency Expected: 09/06/2021 (Approximate), Expires: 11/06/2021 [facility] Work Phone: Comment on above: Expected: 09/06/2021 (Approximate), Expi res: 11/06/2021 Start: 09-06-2021 End: 11-06-2021 Comprehensive metabolic 2000 panel - Serum or Plasma COMP METABOLIC PANEL Lab Routine Seropositive rheumatoid arthritis (HCC) Expected: 09/06/2021 (Approximate), Expires: 11/06/2021 [facility] Work Phone: Comment on above: Expected: 09/06/2021 (Approximate), Expi res: 11/06/2021 Start: 08-16-2021 End: 10-16-2021 CBC W Auto Differential panel - Blood CBC + DIFF Lab Routine Seropositive rheumatoid arthritis (HCC) Expected: 08/16/2021 (Approximate), Expires: 10/16/2021 [facility] Work Phone: Comment on above: Expected: 08/16/2021 (Approximate), Expi res: 10/16/2021 Start: 08-16-2021 End: 10-16-2021 Comprehensive metabolic 2000 panel - Serum or Plasma COMP METABOLIC PANEL Lab Routine Seropositive rheumatoid arthritis (HCC) Expected: 08/16/2021 (Approximate), Expires: 10/16/2021 [facility] Work Phone: Comment on above: Expected: 08/16/2021 (Approximate), Expi res: 10/16/2021 Start: 02-22-2021 DEPRESSION ASSESSMENT DEPRESSION ASSESSMENT [facility] Start: 10-23-2020 Influenza vaccination Flu vaccine (#1) [facility] Work Phone: Start: 12-04-2019 Creatinine measurement Creatinine monitoring [facility] Start: 12-04-2019 Creatinine monitoring Creatinine monitoring [place] , [place] Start: 12-04-2019 Potassium monitoring Potassium monitoring [place], [place] Start: 11-19-2019 Creatinine monitoring Creatinine monitoring [facility] Start: 11-19-2019 [facility] Start: 10-24-2019 [facility] Start: 08-29-2019 End: 08-29-2019 Visit 08/29/2019 Visit Obstetrics and Gynecology Tosha Viera APRN - CNM [address] [place] [address] [phone] [facility] Start: 07-26-2019 End: 07-26-2019 Visit 07/26/2019 Visit Obstetrics and Gynecology Tosha Viera APRN - CNM [address] [place] [address] [phone] [facility] Start: 07-13-2019 End: 07-13-2019 Ancillary Procedure [facility] Start: 05-18-2019 End: 05-18-2019 Ancillary Procedure [facility] Start: 05-12-2019 End: 05-11-2020 VL DUP UPPER EXTREMITY VENOUS LEFT VL DUP UPPER EXTREMITY VENOUS LEFT Imaging Routine Superficial thrombophlebitis of left upper extremity Expected: 05/12/2019, Expires: 05/11[facility]2020 [facility] above: Expected: 05/12/2019, Expires: 1 Start: 05-08-2019 End: 05-08-2019 Routine [facility] VENDOR SPECIALIST Start: 05-02-2019 End: 05-02-2019 Appointment 05/02/2019 Appointment Infusion Therapy [facility] ([facility]) Start: 04-24-2019 End: 04-24-2019 Routine 04/24/2019 Routine Obstetrics and Gynecology Tosha Viera APRN - CNM [address] [place] [address] [phone] [facility] Start: 02-28-2019 End: 02-28-2019 Routine [facility] VENDOR SPECIALIST Start: 02-13-2019 End: 02-13-2019 Routine 02/13/2019 Routine Obstetrics and Gynecology Tosha Viera, BUSINESS OPERATIONS MANAGER - CNM [address] [place] [address] [facility] VENDOR SPECIALIST Start: 01-16-2019 End: 01-16-2019 Routine 01/16/2019 Routine Obstetrics and Gynecology Tosha Viera, BUSINESS OPERATIONS MANAGER - CNM [address] [place] [address] [facility] VENDOR SPECIALIST Start: 12-30-2018 Adult depression screening assessment DEPRESSION SCREENING [facility] Start: 12-19-2018 End: 12-19-2018 Initial 12/19/2018 Initial Obstetrics and Gynecology [facility] VENDOR SPECIALIST Start: 10-23-2018 Influenza vaccination Flu vaccine (#1) [place] Start: 02-16-2014 HPV TESTING HPV TESTING [facility] Start: 02-16-2014 Screening for malignant neoplasm of cervix HPV Testing [facility] Start: 02-16-2005 Cervical cancer screen Cervical cancer screen [place], [place] Start: 02-16-2005 PAP TESTING PAP TESTING [facility] Start: 02-16-2005 Screening for malignant neoplasm of cervix Pap Testing [facility] Start: 02-16-2003 DTaP/Tdap/Td vaccine (1 - Tdap) DTaP/Tdap/Td vaccine (1 - Tdap) [place] Start: 02-16-2003 Hepatitis B Vaccine (1 of 3 - 19+ 3-dose series) Hepatitis B Vaccine (1 of 3 - 19+ 3-dose series) [facility] Start: 02-16-2003 SHINGRIX VACCINE (1 of 2) SHINGRIX VACCINE (1 of 2) [facility] Start: 02-16-2003 Urine microalbumin profile DTAP,TDAP,TD (1 - Tdap) [facility] Start: 02-16-1997 Varicella Vaccine (1 of 2 - 13+ 2-dose series) Varicella Vaccine (1 of 2 - 13+ 2-dose series) [place], [place] Start: 1996 COVID-19 Vaccine (1) COVID-19 Vaccine (1) [facility] Work Phone: Start: 02-16-1995 DTaP/Tdap/Td vaccine (1 - Tdap) DTaP/Tdap/Td vaccine (1 - Tdap) [place] Start: 02-16-1990 PNEUMOCOCCAL (1 - PCV) PNEUMOCOCCAL (1 - PCV) [facility] Start: 02-16-1990 Pneumococcal 0-64 years Vaccine (1 of 1 - PPSV23) Pneumococcal 0-64 years Vaccine (1 of 1 - PPSV23) [place] Start: 02-16-1990 Pneumococcal 0-64 years Vaccine (1 of 2 - PPSV23) Pneumococcal 0-64 years Vaccine (1 of 2 - PPSV23) [facility] [employer] Phone: Start: 02-16-1990 Pneumococcal vaccination [facility] Start: 02-16-1989 COVID-19 VACCINE (#1) COVID-19 VACCINE (#1) [facility] Start: 02-16-1985 Varicella Vaccine (1 of 2 - 2-dose childhood series) Varicella Vaccine (1 of 2 - 2-dose childhood series) [place] Start: 1984 COVID-19 VACCINE (#1) COVID-19 VACCINE (#1) [facility] Start: 1984 HEPATITIS B (1 of 3 - 3-dose series) HEPATITIS B (1 of 3 - 3-dose series) [facility] Start: 1984 Hepatitis B Vaccine (1 of 3 - 3-dose series) Hepatitis B Vaccine (1 of 3 - 3-dose series) [facility] 25-hydroxyvitamin D3 [Mass/volume] in Serum or Plasma VITAMIN D 25 HYDROXY Lab Routine Vitamin D deficiency 08/06/2021 1:42 PM EDT [facility] Work Phone: 25-hydroxyvitamin D3 [Mass/volume] in Serum or Plasma VITAMIN D 25 HYDROXY Lab Routine Vitamin D deficiency 09/03/2021 1:27 PM EDT [facility] Work Phone: 25-hydroxyvitamin D3 [Mass/volume] in Serum or Plasma VITAMIN D 25 HYDROXY Lab Routine Vitamin D deficiency 11/13/2021 1:41 PM EDT [facility] Work Phone: 25-hydroxyvitamin D3 [Mass/volume] in Serum or Plasma VITAMIN D 25 HYDROXY Lab Routine Vitamin D deficiency 06/23/2022 12:40 PM T [facility] Work Phone: End: 12-19-2018 Bacteria identified Cx Nom (U) Urine Culture Microbiology Routine Encounter for supervision of normal in first trimester, unspecified 1 Occurrences starting 12/19/2018 until 12/19/2018 [facility]: 1 Occurrences starting 12/19/2018 until 12/19/2018 Bacteria identified Cx Nom (U) Urine Culture Microbiology Routine Encounter for supervision of normal in first trimester, unspecified 12/19/2018 6:27 PM EDT [facility]AN OLGUIN C reactive protein [Mass/volume] in Serum or Plasma C-REACTIVE PROTEIN (CRP) Lab Routine Seropositive rheumatoid arthritis ([facility]) 11/13/2021 1:41 PM [facility] Work Phone: C reactive protein [Mass/volume] in Serum or Plasma C-REACTIVE PROTEIN (CRP) Lab Routine Seropositive rheumatoid arthritis ([facility]) 06/23/2022 12:40 PM [facility] Work Phone: End: 12-19-2018 C.trachomatis N.gonorrhoeae DNA, Urine C.trachomatis N.gonorrhoeae DNA, Urine Microbiology Routine Encounter for supervision of normal in first trimester, unspecified 1 Occurrences starting 12/19/2018 until 12/19/2018 [facility] on above: 1 Occurrences starting 12/19/2018 until 12/19/2018 C.trachomatis N.gonorrhoeae DNA, Urine C.trachomatis N.gonorrhoeae DNA, Urine Microbiology Routine Encounter for supervision of normal in first trimester, unspecified 12/19/2018 6:28 PM EDT [facility] CBC W Auto Different ial panel - Blood CBC + DIFF Lab Routine Seropositive rheumatoid arthritis ([facility]) 08/06/2021 1:42 PM [facility] Work Phone: CBC W Auto Different ial panel - Blood CBC + DIFF Lab Routine Seropositive rheumatoid arthritis ([facility]) 11/13/2021 1:41 PM [facility] Work Phone: Comprehensive metabo lic 2000 panel - Serum or Plasma COMP METABOLIC PANEL Lab Routine Seropositive rheumatoid arthritis ([facility]) 08/06/2021 1:42 PM [facility] Work Phone: Comprehensive metabo lic 2000 panel - Serum or Plasma COMP METABOLIC PANEL Lab Routine Seropositive rheumatoid arthritis ([facility]) 09/03/2021 1:27 PM [facility] Work Phone: Comprehensive metabo lic 2000 panel - Serum or Plasma COMP METABOLIC PANEL Lab Routine Seropositive rheumatoid arthritis ([facility]) 11/13/2021 1:41 PM [facility] Work Phone: Comprehensive metabo lic 2000 panel - Serum or Plasma COMP METABOLIC PANEL Lab Routine Seropositive rheumatoid arthritis ([facility]) 06/23/2022 12:40 PM [facility] Work Phone: End: 03-15-2020 COVID-19, PCR COVID-19, PCR Lab Routine One Time for 1 Occurrences starting 03/15/2020 until 03/15/2020 [facility] [place] Comment on above: One Time for 1 Occurrences starting 02/23 until 03/15/2020 COVID-19, PCR COVID-19, PCR La b STAT 03/15/2020 4:30 PM EST [place], [place] End: 07-06-2019 Culture, Strep B Screen, Vaginal/Rectal Culture, Strep B Screen, Vaginal/Rectal Microbiology Routine 38 weeks gestation of 1 Occurrences starting 07/06/2019 until 07/06/2019 [facility] [place] Comment on above: 1 Occurrences starting 07/06/2019 until 07/06/2019 Culture, Strep B Scr een, Vaginal/Rectal Culture, Strep B Screen, Vaginal/Rectal Microbiology Routine 38 weeks gestation of 07/06/2019 4:09 PM [facility] [place] End: 12-19-2018 Cystic Fibrosis Gene Test Cystic Fibrosis Gene Test Lab Routine Encounter for supervision of normal in first trimester, unspecified Screening for cystic fibrosis 1 Occurrences starting 12/19/2018 until 12/19/2018 [facility] [place] Comment on above: 1 Occurrences starting 12/19/2018 until 12/19/2018 End: 01-16-2019 Cytopathology procedure, preparation of smear, genital source PAP SMEAR Lab Routine Screening for cervical cancer 1 Occurrences starting 01/16/2019 until 01/16/2019 [facility] on above: 1 Occurrences starting 01/16/2019 until 01/16/2019 Erythrocyte sediment ation rate SED RATE WESTERGREN Lab Routine Seropositive rheumatoid arthritis (HCC) 11/13/2021 1:41 PM EDT [facility] Work Phone: End: 04-04-2019 FLU A/B, MOLECULAR FLU A/B, MOLECULAR Microbiology Routine Once for 1 Occurrences starting 04/04/2019 until 04/04/2019 [employer] Work Phone: Comment on above: Once for 1 Occurrences starting 04/04/19 20 until 04/04/2019 FLU A/B, MOLECULAR FLU A/B, MOLE CULAR Microbiology Routine 04/04/2019 11:47 AM EST [employer] Phone: End: 12-19-2018 Hepatitis C Antibody Hepatitis C Antibody Lab Routine Encounter for supervision of normal in first trimester, unspecified 1 Occurrences starting 12/19/2018 until 12/19/2018 [facility] on above: 1 Occurrences starting 12/19/2018 until 12/19/2018 Hepatitis C Antibody Hepatitis C Antibody Lab Routine Encounter for supervision of normal in first trimester, unspecified 12/19/2018 6:24 PM EDT [facility] End: 12-19-2018 HIV Screen HIV Screen Lab Routine Encounter for supervision of normal in first trimester, unspecified 1 Occurrences starting 12/19/2018 until 12/19/2018 [facility] [place] Comment on above: 1 Occurrences starting 12/19/2018 until 12/19/2018 HIV Screen HIV Screen Lab R outine Encounter for supervision of normal in first trimester, unspecified 12/19/2018 6:24 PM EDT [facility] PRO[facility] PROF ILE I Lab Routine Encounter for supervision of normal in first trimester, unspecified 12/19/2018 6:28 PM EDT [facility] End: 12-19-2018 Testing for Aneuploidy Testing for Aneuploidy Lab Routine Encounter for supervision of normal in first trimester, unspecified 1 Occurrences starting 12/19/2018 until 12/19/2018 [place] Comment on above: 1 Occurrences starting 12/19/2018 until 12/19/2018 Testing for Aneuploidy Testing for Aneuploidy Lab Routine Encounter for supervision of normal in first trimester, unspecified 12/19/2018 6:24 PM EDT [place] RHOGAM ANTEPARTUM RHOGAM ANTEPAR DAJA Blood Bank Routine Encounter for supervision of other normal in third trimester 29 weeks gestation of 05/01/2019 5:42 PM EDT [facility] [place] RHOGAM INJECTION ONLY RHOGAM INJ ECTION ONLY Blood Bank STAT 12/03/2018 5:56 PM EDT [facility] BRIAN End: 07-12-2019 RHOGAM RHOGAM Blood Bank Routine One Time for 1 Occurrences starting 07/12/2019 until 07/12/2019 [place] Comment on above: One Time for 1 Occurrences starting 06/23 until 07/12/2019 End: 05-27-2024 US Extremity - left US EXTREMITY MASS/FLUID COLLECTION LEFT Radiology Routine Seropositive rheumatoid arthritis (HCC) Localized superficial swelling, mass, or lump 1 Occurrences starting 04/28/2023 until 05/27/2024 [facility] Work Phone: Comment on above: 1 Occurrences starting 04/28/2023 until 05/27/2024 US GALLBLADDER RUQ US GALLBLADDE R RUQ Imaging Routine Right upper quadrant abdominal pain 2019 11:13 AM [facility] [employer] Work Phone: End: 05-27-2024 US Upper extremity - left US ELBOW LEFT Radiology Routine Localized superficial swelling, mass, or lump Seropositive rheumatoid arthritis (HCC) 1 Occurrences starting 04/28/2023 until 05/27/2024 [facility] Work Phone: Comment on above: 1 Occurrences starting 04/28/2023 until 05/27/2024 End: 03-26-2023 XR FOOT GENERAL 3V AP/LAT/OBL BILATERAL XR FOOT GENERAL 3V AP/LAT/OBL BILATERAL Radiology Routine Seropositive rheumatoid arthritis (HCC) 1 Occurrences starting 02/24/2022 until 03/26/2023 [facility] Work Phone: Comment on above: 1 Occurrences starting 02/24/2022 until 03/26/2023 End: 03-30-2023 XR FOOT GENERAL 3V AP/LAT/OBL BILATERAL XR FOOT GENERAL 3V AP/LAT/OBL BILATERAL Radiology Routine Seropositive rheumatoid arthritis (HCC) 1 Occurrences starting 02/28/2022 until 03/30/2023 [facility] Work Phone: Comment on above: 1 Occurrences starting 02/28/2022 until 03/30/2023 End: 11-21-2023 XR FOOT GENERAL 3V AP/LAT/OBL BILATERAL XR FOOT GENERAL 3V AP/LAT/OBL BILATERAL Radiology Routine Seropositive rheumatoid arthritis (HCC) 1 Occurrences starting 10/22/2022 until 11/21/2023 [facility] Work Phone: Comment on above: 1 Occurrences starting 10/22/2022 until 11/21/2023 [facility] c [facility] c [facility] c [facility] c [facility] Immunizations Immunization Date Immunization Notes Care Provider Devi biggs 06-02-2021 diphtheria, tetanus toxoids and pertussis vaccine Fariba Hill APRN.CNP Work Phone: [facility] 07-12-2019 diphtheria, tetanus toxoids and acellular pertussis vaccine, unspecified formulation [place], [place] 07-12-2019 measles, mumps and rubella virus vaccine [place], [place] 12-03-2018 RHO(D) immune prafulul in - [place], [place] Payers Date Payer Category Payer Medicaid [id number] 2020 Medicaid [employer] [id number] 2020-Present [phone] [address] [place] [address] Medicaid [id number] 2020 Medicaid [id number] 2018 Unknown [employer]GE [employer] xxxxxxxxxxx 2018-Present [phone] [address] [place] [address] xxxxxxxxxxx [id number] 2018 Unknown [id number] 1984 Unknown [id number] 1984 Unknown [id number] 1984 Unknown [id number] 1984 Unknown [id number] 1984 Unknown [id number] 1984 Unknown [id number] 1984 Unknown [id number] 1984 Unknown [id number] 1984 Unknown [id number] 1984 Unknown [id number] 1984 Unknown [id number] 1984 Unknown [id number] 1959 Unknown [id number] Social History Date Type Detail Facility Start: 12-03-2018 End: 01-28-2019 Tobacco smoking status NHIS Current every day smoker [place], [place] Start: 04-22-2012 History of tobacco use Cigarette Smo ker [place] Start: 12-03-2018 End: 09-17-2022 Alcohol intake Not Currently [facility] Start: 10-24-2018 [facility] [place] [place] Start: 1985 Sex Assigned At Not on file [place] Start: 12-19-2018 End: 09-17-2022 Cigarettes smoked current (pack per day) - Reported [facility] Start: 12-19-2018 End: 01-28-2019 [facility] Start: 06-23-2021 End: 07-03-2021 Exposure to SARS-CoV-2 (event) Unable to assess [place], [place] Start: 07-11-2019 Tobacco Comment patient declin es counseling [place] Start: 07-12-2019 End: 04-14-2022 Tobacco use and exposure Never used [place] Start: 11-02-2021 End: 11-12-2021 Exposure to SARS-CoV-2 (event) Not sure [facility] Start: 04-22-2012 End: 04-14-2022 Tobacco smoking status NHIS Light tobacco smoker [facility] Start: 03-14-2021 End: 06-07-2023 Alcohol intake Current non-drinker of alcohol (finding) [facility] Start: 04-22-2017 End: 04-14-2022 Tobacco Comment social smoker not everyday [facility] Adult Depression Screening Assessment 1 [facility] Clinical Notes 09-15-2020 to 07-20-2023 Telephone Encounter - Yessy Gonzalez RN - 07/20/2023 9:23 AM EDTTelephone Encounter - Yessy Gonzalez RN - 07/20/2023 [facility] Ortiz - 06/28/2023 10:09 AM EDTPatient Instructions Note Date & Type Note Facility 07-20-2023 Telephone encounter Note Spoke with pt, confirmed she will be in for her infusion tomorrow. Denies any issues at this time. [facility] 07-20-2023 Miscellaneous Notes Spoke with pt, confirmed she will be in for her infusion tomorrow. Denies any issues at this time. documented in this encounter [facility] 06-28-2023 Note HNO ID: [id number] Author: ?, ?, ? Service: ? Author Type: ? Type: Progress Notes Filed: 06/28/2023 10:10 Note Text: Called and LMOM for patient to call the office back to get reschedule for her appointment with Fariba Hill and then her Infusion right after. Please warm transfer to [facility]. [facility] 06-28-2023 History of Present illness Narrative Called and LMOM for patient to call the office back to get reschedule for her appointment with Fariba Hill and then her Infusion right after. Please warm transfer to [facility]. documented in this encounter [facility] 06-25-2023 Telephone encounter Note Called and LMOM for patient to call the office back so we can get her rescheduled from her appointment and Infusion on 06/23/2023 that she cancel. Please warm transfer to [facility] 06-25-2023 Miscellaneous Notes Called and LMOM for patient to call the office back so we can get her rescheduled from her appointment and Infusion on 06/23/2023 that she cancel. Please warm transfer to [facility] documented in this encounter [facility] 06-22-2023 Telephone encounter Note Called patient to get her rescheduled and she is going to go ahead and keep her appointment. Patient will be here for her appointment with Fariba and then get her infusion. [facility] 06-22-2023 Miscellaneous Notes Called patient to get her rescheduled and she is going to go ahead and keep her appointment. Patient will be here for her appointment with Fariba and then get her infusion. Spoke with patient on phone. Patient states she needs to reschedule tomorrows infusion do to starting a new job and working tomorrow. Will have scheduling reach out and reschedule infusion. LMOM for patient to call back and confirm scheduled infusion. documented in this encounter [facility] 06-22-2023 Telephone encounter Note Spoke with patient on phone. Patient states she needs to reschedule tomorrows infusion do to starting a new job and working tomorrow. Will have scheduling reach out and reschedule infusion. [facility] 06-22-2023 Telephone encounter Note LMOM for patient to call back and confirm scheduled infusion. [facility] 05-28-2023 Miscellaneous Notes Call placed to patient to inquire how she is feeling [facility]. She states she is feeling better and has had no further issues. James Hill CNP notified. documented in this encounter [facility] 05-26-2023 Note HNO ID: [id number] Author: SILVIA COOPER APRN.ANTHONY Service: ? Author Type: Nurse Practitioner Type: Progress Notes Filed: 05/26/2023 14:15 Note Text: This note was created using APSXriter. Subjective Any Ludwig is a 38 year old female. This 38 year old female present sot [facility] with expiratory wheeze, was in infusions for RA and nurses suggested to [facility] to [facility]. Pt has done previously, does not have albuterol, typically controls. Pt denies allergic reactions, seasonal allergies, reactive airway. Pt denies ill feelings, fever, feeling SOB or having CP. Pt is in NAD. The history is provided by the patient. Wheezing Associated symptoms include coughing. Pertinent negatives include no abdominal pain, chest pain, chills, diarrhea, ear pain, fever, headaches, neck pain, rhinorrhea, shortness of breath, sore throat or vomiting. Review of Systems Constitutional: Negative for activity change, appetite change, chills, diaphoresis, fatigue and fever. HENT: Negative for congestion, ear discharge, ear pain, postnasal drip, rhinorrhea, sinus pressure, sinus pain and sore throat. Respiratory: Positive for cough, chest tightness and wheezing. Negative for shortness of breath and stridor. Cardiovascular: Negative for chest pain. Gastrointestinal: Negative for abdominal pain, diarrhea, nausea and vomiting. Genitourinary: Negative for decreased urine volume. Musculoskeletal: Negative for arthralgias, myalgias, neck pain and neck stiffness. Skin: Negative. Allergic/Immunologic: Negative for environmental allergies and immunocompromised state. Neurological: Negative for dizziness, weakness, light-headedness, numbness and headaches. Hematological: Negative. Psychiatric/Behavioral: Negative. Objective BP 107/66 Pulse 65 Temp 36.4 ?C (97.5 ?F) (Temporal) LMP 01/13/2023 (Approximate) SpO2 98% No past medical history on file. Current Outpatient Medications on File Prior to Visit Medication Sig ondansetron orally disintegrating (ZOFRAN ODT) 4 mg disintegrating tablet DISSOLVE 1 TABLET BY MOUTH EVERY 8 HOURS NEEDED FOR NAUSEA leflunomide (ARAVA) 10 mg tablet Take 1 tablet by mouth once daily. triamcinolone acetonide (KENALOG) 0.1 % ointment APPLY TWICE A DAY TO THE AFFECTED AREA OF THE ELBOW Cholecalciferol, Vitamin D3, (VITAMIN D) 25 mcg (1,000 unit) cap Take 2 capsules by mouth once daily. No current facility-administered medications on file prior to visit. Physical Exam Vitals and nursing note reviewed. Constitutional: General: She is not in acute distress. Appearance: Normal appearance. She is not ill-appearing, toxic-appearing or diaphoretic. HENT: Head: Normocephalic and atraumatic. Right Ear: Tympanic membrane normal. Left Ear: Tympanic membrane normal. Nose: Nose normal. Mouth/Throat: Mouth: Mucous membranes are moist. Eyes: Extraocular Movements: Extraocular movements intact. Pupils: Pupils are equal, round, and reactive to light. Cardiovascular: Rate and Rhythm: Normal rate and regular rhythm. Heart sounds: Normal heart sounds. Pulmonary: Effort: Pulmonary effort is normal. No tachypnea, respiratory distress or retractions. Breath sounds: No stridor, decreased air movement or transmitted upper airway sounds. Examination of the right-upper field reveals wheezing. Examination of the left-upper field reveals wheezing. Examination of the right-lower field reveals wheezing. Examination of the left-lower field reveals wheezing. Wheezing present. No decreased breath sounds, rhonchi or rales. Musculoskeletal: General: Normal range of motion. Cervical back: Normal range of motion and neck supple. No rigidity or tenderness. Lymphadenopathy: Cervical: No cervical adenopathy. Skin: General: Skin is warm. Neurological: Mental Status: She is alert and oriented to person, place, and time. Psychiatric: Mood and Affect: Mood normal. Behavior: Behavior normal. Following Albuterol Neb, POX improved from 97 to 99%, improved exchange, AHR remained 56-60 BPM, Exp wheeze resolved, minimal insp wheeze noted. Pt reports improvement. ASSESSMENT/PLAN: 1. Wheezing - ICD9: 786.07, ICD10: R06.2 Albuterol as needed- inhaler sent If needed, only if needed, Prednisone 40 mg once daily x 5 days with food Consider Zyrtec daily until Mothers day or longer Follow up as needed - ALBUTEROL SULFATE 2.5 MG/3 ML (0.083 %) SOLUTION FOR NEBULIZATION - ALBUTEROL SULFATE HFA 90 MCG/ACTUATION AEROSOL INHALER - PREDNISONE 20 MG TABLET Silvia Cooper APRN.CNP [facility] 05-26-2023 Miscellaneous Notes Addended by: SILVIA COOPER on: 05/26/2023 03:06 PM Modules accepted: Orders documented in this encounter [facility] 05-26-2023 Note HNO ID: [id number] Author: FARIBA HILL APRN.CNP Service: ? Author Type: Nurse Practitioner Type: Progress Notes Filed: 06/07/2023 08:14 Note Text: FOLLOW UP VISIT-in person PCP: Tino Blake MD [address] [place] [address] Ms. Ludwig is a 38 year old patient here today for follow up of RA Interim History: Swelling - right wrist swelling Started yesterday New job working more Thinking the over activity caused the swelling elbow - nodule Am stiffness - 1 hours Worse with weather changes Not taking anything for pain No infections No illness Cut down on smoking Wheezing more recently Using inhaler more since working -did not use today Has appt with pcp Thinks she has asthma? vit d 2000 international unit(s) daily Actemra every 4 weeks Arava 10mg daily Had tubal ligation REVIEW OF SYSTEMS: Review of Systems CONSTITUTION: Negative for: Weight loss or gain, Fever. Chills, Night sweats HEENT: Negative for: Nosebleeds, Mouth sores and Dry mouth RESPIRATORY: Negative for: Cough, Shortness of breath, Pain with breathing and Coughing up blood GASTROINTESTINAL: Negative for: Melena, Diarrhea, Abdominal pain, Heartburn, MUSCULOSKELETAL: Positive for: Arthralgias, Myalgias, Joint swelling and Morning Joint Stiffness Negative for: Muscle weakness NEUROLOGICAL: Positive for: Headaches and Numbness (numbness in right hand where she has inflammation, none on exam ) Negative for: Memory loss SKIN: Negative for: Rashes, Sun sensitive rashes, Skin color changes, Hair loss, Nail changesNegative for: Hair loss and Nail changes EYES: Negative for: Eye pain, Eye redness and Eye dryness CARDIOVASCULAR: Negative for: Chest pain, Leg swelling, Arrhythmia, Presyncope GENITOURINARY: Negative for: Dysuria, Hematuria, Ulceration HEMATOLOGIC/LYMPHATIC: Past Medical Hx, Past Surgical Hx. Social Hx and Family Hx: unchanged ACTIVE PROBLEM LIST Cyclic Citrullinated Peptide (Ccp) Antibody Positive - 12/30/2017 Rheumatoid Factor Positive - 12/30/2017 Seropositive Rheumatoid Arthritis (Hcc) - 12/30/2017 Smokes and Motivated to Quit - 12/30/2017 Comment: Counseled on cessation Vitamin D Deficiency - 04/23/2017 PHYSICAL EXAMINATION: LMP 01/13/2023 (Approximate) GENERAL: alert and appropriate, in no distress, well-hydrated, well nourished and happy, smiling, interactive SKIN: no rash noted HEAD: normocephalic, no abnormality or lesion noted EYES: no injection and visual acuity is grossly normal EARS: hearing grossly normal No apparent nasal bridge collapse, no cartilage swelling, no parotid gland swelling. NOSE: external nose normal without rhinorrhea OROPHARYNX: moist mucus membranes NECK: full ROM, no cervical LNs noted RESPIRATORY: breathing non-labored CHEST: wheezes bilateral ABDOMEN: soft and non-tender MUSCULOSKELETAL : nodules on b/l wrist unchanged no apparent joint effusion or synovitis Swollen joints-right wrist elbow- nodule - unchanged Tender joints - right wrist No tenderness with percussion over long bones-femur/tibia b/l EXTREMITIES: FROM NEUROLOGIC: no obvious deficit Prior Test results discussed with patient. IMPRESSION/DIAGNOSIS: M05.9 Seropositive rheumatoid arthritis (HCC) (primary encounter diagnosis) M65.9 Synovitis E55.9 Vitamin D deficiency R22.9 Localized superficial swelling, mass, or lump Z71.2 Encounter to discuss test results Z71.89 Encounter for medication review and counseling Z51.81 Medication monitoring encounter Rheumatoid Arthritis Sero-positive, RF, CCP Non-erosive Per Dr. Pandya last note At last visit the patient's Rheumatoid Arthritis appears to be active and worse since last visit and since being off DMARDs. She has not followed up since 2019. She has been off RA medications for 1.5 years. Stopped Arava and xejanz in 2019. She reports only took Xeljanz for the 30 day free supply. She did not follow up on the [employer] program, was unclear when asked. With patient's drug addition history, would have to defer from self injectables and needles at home. Due to her problems with transportation and lives far, she is unable to receive IV infusions. She is planning to follow up with local cryogenics engineer closer to home. Until she has her apt, we offered assistance with her RA care and follow up apt. Advised we can only provide 1 month supply and will need f/u apt for recheck and refill for her safety. We also reviewed importance of follow up with her dentist to evaluate for painful tooth and exclude infection. Dental infections can be risk for Rheumatoid Arthritis flares as well as concerns for more serious infections. Patient has had multiple unfortunate social and psychologic factors over her lifetime. We are assisting with hospice social worker consult, also to help with adherence to health care and patient's social support, especially kristie (more content not included)... [facility] 05-26-2023 Instructions Silvia Cooper APRN.CNP - 05/26/2023 2:00 PM EDT Albuterol as needed- inhaler sent If needed, only if needed, Prednisone 40 mg once daily x 5 days with food Consider Zyrtec daily until Mothers day or longer Follow up as needed documented in this encounter [facility] 05-26-2023 History of Present illness Narrative This note was created using APSXriter. Subjective Any Ludwig is a 38 year old female. This 38 year old female present sot [facility] with expiratory wheeze, was in infusions for RA and nurses suggested [facility] to [facility]. Pt has done previously, does not have albuterol, typically controls. Pt denies allergic reactions, seasonal allergies, reactive airway. Pt denies ill feelings, fever, feeling SOB or having CP. Pt is in NAD. The history is provided by the patient. Wheezing Associated symptoms include coughing. Pertinent negatives include no abdominal pain, chest pain, chills, diarrhea, ear pain, fever, headaches, neck pain, rhinorrhea, shortness of breath, sore throat or vomiting. Review of Systems Constitutional: Negative for activity change, appetite change, chills, diaphoresis, fatigue and fever. HENT: Negative for congestion, ear discharge, ear pain, postnasal drip, rhinorrhea, sinus pressure, sinus pain and sore throat. Respiratory: Positive for cough, chest tightness and wheezing. Negative for shortness of breath and stridor. Cardiovascular: Negative for chest pain. Gastrointestinal: Negative for abdominal pain, diarrhea, nausea and vomiting. Genitourinary: Negative for decreased urine volume. Musculoskeletal: Negative for arthralgias, myalgias, neck pain and neck stiffness. Skin: Negative. Allergic/Immunologic: Negative for environmental allergies and immunocompromised state. Neurological: Negative for dizziness, weakness, light-headedness, numbness and headaches. Hematological: Negative. Psychiatric/Behavioral: Negative. Objective BP 107/66 Pulse 65 Temp 36.4 C (97.5 F) (Temporal) LMP 01/13/2023 (Approximate) SpO2 98% No past medical history on file. Current Outpatient Medications on File Prior to Visit Medication Sig ondansetron orally disintegrating (ZOFRAN ODT) 4 mg disintegrating tablet DISSOLVE 1 TABLET BY MOUTH EVERY 8 HOURS NEEDED FOR NAUSEA leflunomide (ARAVA) 10 mg tablet Take 1 tablet by mouth once daily. triamcinolone acetonide (KENALOG) 0.1 % ointment APPLY TWICE A DAY TO THE AFFECTED AREA OF THE ELBOW Cholecalciferol, Vitamin D3, (VITAMIN D) 25 mcg (1,000 unit) cap Take 2 capsules by mouth once daily. No current facility-administered medications on file prior to visit. Physical Exam Vitals and nursing note reviewed. Constitutional: General: She is not in acute distress. Appearance: Normal appearance. She is not ill-appearing, toxic-appearing or diaphoretic. HENT: Head: Normocephalic and atraumatic. Right Ear: Tympanic membrane normal. Left Ear: Tympanic membrane normal. Nose: Nose normal. Mouth/Throat: Mouth: Mucous membranes are moist. Eyes: Extraocular Movements: Extraocular movements intact. Pupils: Pupils are equal, round, and reactive to light. Cardiovascular: Rate and Rhythm: Normal rate and regular rhythm. Heart sounds: Normal heart sounds. Pulmonary: Effort: Pulmonary effort is normal. No tachypnea, respiratory distress or retractions. Breath sounds: No stridor, decreased air movement or transmitted upper airway sounds. Examination of the right-upper field reveals wheezing. Examination of the left-upper field reveals wheezing. Examination of the right-lower field reveals wheezing. Examination of the left-lower field reveals wheezing. Wheezing present. No decreased breath sounds, rhonchi or rales. Musculoskeletal: General: Normal range of motion. Cervical back: Normal range of motion and neck supple. No rigidity or tenderness. Lymphadenopathy: Cervical: No cervical adenopathy. Skin: General: Skin is warm. Neurological: Mental Status: She is alert and oriented to person, place, and time. Psychiatric: Mood and Affect: Mood normal. Behavior: Behavior normal. Following Albuterol Neb, POX improved from 97 to 99%, improved exchange, AHR remained 56-60 BPM, Exp wheeze resolved, minimal insp wheeze noted. Pt reports improvement. ASSESSMENT/PLAN: 1. Wheezing - ICD9: 786.07, ICD10: R06.2 Albuterol as needed- inhaler sent If needed, only if needed, Prednisone 40 mg once daily x 5 days with food Consider Zyrtec daily until Mothers day or longer Follow up as needed - ALBUTEROL SULFATE 2.5 MG/3 ML (0.083 %) SOLUTION FOR NEBULIZATION - ALBUTEROL SULFATE HFA 90 MCG/ACTUATION AEROSOL INHALER - PREDNISONE 20 MG TABLET Silvia Cooper APRN.BOILERMAKING SUPERVISOR documented in this encounter [facility] 05-26-2023 Note HNO ID: [id number] Author: KORIN PUGA RN Service: ? Author Type: Registered Nurse Type: Progress Notes Filed: 05/26/2023 13:26 Note Text: Since your last infusion, have you: Had any major change in your health (including new diagnosis of cancer, COPD or cogestive heart failure? No Been hospitalized? No Had any infections? No Taking antibiotics/antivirals/antifungals for current infection? No Had surgery or do you have upcoming surgery? No Received any live vaccines in the last four weeks? No Worsening GI symptoms/abnormal pain/bloating No In the past 7 days have you had: Fevers/chills/night sweats? No New cough or cold symptoms or sore throat? No Nausea/vomiting/diarrhea? No Unusual swelling of your ankles of feet? No Burning/blood with urination or urinary frequency? No New weakness/numbness/stumbling falls? No New rash or open sores? No [facility] 05-26-2023 History of Present illness Narrative FOLLOW UP VISIT-in person PCP: Tino Blake MD [address] [place] [address] Ms. Ludwig is a 38 year old patient here today for follow up of RA Interim History: Swelling - right wrist swelling Started yesterday New job working more Thinking the over activity caused the swelling elbow - nodule Am stiffness - 1 hours Worse with weather changes Not taking anything for pain No infections No illness Cut down on smoking Wheezing more recently Using inhaler more since working -did not use today Has appt with pcp Thinks she has asthma? vit d 1999 international unit(s) daily Actemra every 4 weeks Arava 10mg daily Had tubal ligation REVIEW OF SYSTEMS: Review of Systems CONSTITUTION: Negative for: Weight loss or gain, Fever. Chills, Night sweats HEENT: Negative for: Nosebleeds, Mouth sores and Dry mouth RESPIRATORY: Negative for: Cough, Shortness of breath, Pain with breathing and Coughing up blood GASTROINTESTINAL: Negative for: Melena, Diarrhea, Abdominal pain, Heartburn, MUSCULOSKELETAL: Positive for: Arthralgias, Myalgias, Joint swelling and Morning Joint Stiffness Negative for: Muscle weakness NEUROLOGICAL: Positive for: Headaches and Numbness (numbness in right hand where she has inflammation, none on exam ) Negative for: Memory loss SKIN: Negative for: Rashes, Sun sensitive rashes, Skin color changes, Hair loss, Nail changesNegative for: Hair loss and Nail changes EYES: Negative for: Eye pain, Eye redness and Eye dryness CARDIOVASCULAR: Negative for: Chest pain, Leg swelling, Arrhythmia, Presyncope GENITOURINARY: Negative for: Dysuria, Hematuria, Ulceration HEMATOLOGIC/LYMPHATIC: Past Medical Hx, Past Surgical Hx. Social Hx and Family Hx: unchanged ACTIVE PROBLEM LIST Cyclic Citrullinated Peptide (Ccp) Antibody Positive - 12/30/2017 Rheumatoid Factor Positive - 12/30/2017 Seropositive Rheumatoid Arthritis (Hcc) - 12/30/2017 Smokes and Motivated to Quit - 12/30/2017 Comment: Counseled on cessation Vitamin D Deficiency - 04/23/2017 PHYSICAL EXAMINATION: LMP 01/13/2023 (Approximate) GENERAL: alert and appropriate, in no distress, well-hydrated, well nourished and happy, smiling, interactive SKIN: no rash noted HEAD: normocephalic, no abnormality or lesion noted EYES: no injection and visual acuity is grossly normal EARS: hearing grossly normal No apparent nasal bridge collapse, no cartilage swelling, no parotid gland swelling. NOSE: external nose normal without rhinorrhea OROPHARYNX: moist mucus membranes NECK: full ROM, no cervical LNs noted RESPIRATORY: breathing non-labored CHEST: wheezes bilateral ABDOMEN: soft and non-tender MUSCULOSKELETAL : nodules on b/l wrist unchanged no apparent joint effusion or synovitis Swollen joints-right wrist elbow- nodule - unchanged Tender joints - right wrist No tenderness with percussion over long bones-femur/tibia b/l EXTREMITIES: FROM NEUROLOGIC: no obvious deficit Prior Test results discussed with patient. IMPRESSION/DIAGNOSIS: M05.9 Seropositive rheumatoid arthritis (HCC) (primary encounter diagnosis) M65.9 Synovitis E55.9 Vitamin D deficiency R22.9 Localized superficial swelling, mass, or lump Z71.2 Encounter to discuss test results Z71.89 Encounter for medication review and counseling Z51.81 Medication monitoring encounter Rheumatoid Arthritis Sero-positive, RF, CCP Non-erosive Per Dr. Pandya last note At last visit the patient's Rheumatoid Arthritis appears to be active and worse since last visit and since being off DMARDs. She has not followed up since 2019. She has been off RA medications for 1.5 years. Stopped Arava and xejanz in 2019. She reports only took Xeljanz for the 30 day free supply. She did not follow up on the [employer] program, was unclear when asked. With patient's drug addition history, would have to defer from self injectables and needles at home. Due to her problems with transportation and lives far, she is unable to receive IV infusions. She is planning to follow up with local cryogenics engineer closer to home. Until she has her apt, we offered assistance with her RA care and follow up apt. Advised we can only provide 1 month supply and will need f/u apt for recheck and refill for her safety. We also reviewed importance of follow up with her dentist to evaluate for painful tooth and exclude infection. Dental infections can be risk for Rheumatoid Arthritis flares as well as concerns for more serious infections. Patient has had multiple unfortunate social and psychologic factors over her lifetime. We are assisting with hospice social worker consult, also to help with adherence to health care and patient's social support, especially that now she is caring for her , as a single mother. infliximab adverse reaction Med options Rituxan would increase risk for infection and decrease response to vaccines- will defer from this choice at this time Orencia may take 6 months fro response- patients disease has been active Patient is high risk for non-compliance and has a history of drug use- will avoid self injections Rheumatoid arthritis is active at todays visit. More activity day prior to infusion, right wrist swelling. Actemra. Arava 10mg daily. No missed dose. Tolerating well . Patient feels it is working well for her. Elbow -nodule . Will US and consult derm Had elevated lfts and normal with recheck. Off pred. Patient will go to pcp/ [facility] for [facility] as she does not have her inhaler here today We have been cautious with prescribing this patient high risk oral medications. More stress , seeing counselor. New job. Working more hours. She has a history of non compliance with follow up and taking medications. Patient has a history of drug abuse and history of on oral medications. No chance of now. Methotrexate has not been preferred medication in past for this patient as she has high risk behaviors. In office infusion can be monitored more closely, with frequent office visits and ability to check labs regularly. podiatry consult for persistent foot pain. Went to ER for right foot pain in July last year - xray at that time showed erosions from inflammation. Uric acid at time normal. Vit d def. taking vit d. No procedures planned, no antibiotics. Smoker, consult to smoking cessation at prior visit . She has been cutting back on smoking since last visit. Continue actemra tolerating well every 4 weeks dose to 8mg/kg PLAN/RECOMMENDATIONS: Express care Continue current plan Discussed medications dosage, usage, goals of therapy and side effects. Patient instructed to notify provider of any changes in medical condition. Patient in agreement and in understanding of plan. Follow up: 1 month Portions of this note have been copied from my previous note and have been updated to reflect today's visit note 05/26/2023 all reflect current medical decision making from date of this visit. I spent a total of 32 minutes on the date of the service which included preparing to see the patient, [id number] patient care, completing clinical documentation, obtaining and/or reviewing separately obtained history, performing a medically appropriate examination, counseling and educating the patient/family/caregiver, and ordering medications, tests, or procedures. Fariba Hill APRN.CNP Recommendations to share with referring physician/Primary care physician : Dear Dr. Blake, I had the pleasure of seeing your patient, Mrs Ludwig. I have enclosed a copy of my clinic note with my assessment and recommendations for this patient. Recommendations for your consideration as you deem necessary: -Continuous follow up with Primary care physician for cardiovascular disease prevention, for age appropriate cancer screening and routine health maintenance and wellness, and infection precautions and age appropriate immunization recommended. Thank you for allowing me to participate in the care of your patient. Fariba Hill APRN.CNP CC: Tino Blake MD documented in this encounter [facility] 05-26-2023 History of Present illness Narrative Since your last infusion, have you: Had any major change in your health (including new diagnosis of cancer, COPD or cogestive heart failure? No Been hospitalized? No Had any infections? No Taking antibiotics/antivirals/antifungals for current infection? No Had surgery or do you have upcoming surgery? No Received any live vaccines in the last four weeks? No Worsening GI symptoms/abnormal pain/bloating No In the past 7 days have you had: Fevers/chills/night sweats? No New cough or cold symptoms or sore throat? No Nausea/vomiting/diarrhea? No Unusual swelling of your ankles of feet? No Burning/blood with urination or urinary frequency? No New weakness/numbness/stumbling falls? No New rash or open sores? No documented in this encounter [facility] 05-25-2023 Miscellaneous Notes Spoke with patient; confirmed infusion tomorrow. Denies any issues. LMOM for patient to call back and confirm patient will be in tomorrow for scheduled infusion and has not been ill recently or on ATB. documented in this encounter [facility] 05-18-2023 Miscellaneous Notes Called patient on May 18, 2023 at 8:55 AM to schedule their MSK US exam. No answer, left VM, 3rd attempt. Called patient on May 17, 2023 at 8:28 AM to schedule their MSK US exam. No answer, left VM, 2nd attempt. Called patient on May 14, 2023 at 2:42 PM to schedule their MSK US exam. No answer, left VM, 1st attempt. Visit Type: ANY MSK Visit Length: 45, 50 OR 60 MINUTES Order Name/Protocol: US EXTREMITY MASS/FLUID COLLECTION LT; EVAL LT POSTERIOR ELBOW FOR RA NODULES Preferred Provider: N/A Comment: Please ask the patient what the size of their masses are and how many then notate the response in the Appointment Note. Location: ANY FACILITY Slot held: N/A documented in this encounter [facility] 05-14-2023 Miscellaneous Notes Patient has been identified by name and Date of : Yes Patient: Any Ludwig Date of : 1985 Provider for this encounter : Fariba Hill APRN.CNP Reason for call: ELBOW L Was an appointment scheduled: No Reason for requesting visit (RFV/signs and symptoms/diagnosis) : Localized superficial swelling, mass, or lump [R22.9] Seropositive rheumatoid arthritis (HCC) [M05.9] Person calling: self Return call to: self Call patient at: at home [phone] (home) [phone] (cell) Payor: [facility] MEDICAID / Plan: [employer] MEDICAID OF [place] / Product Type: Medicaid / DIANA Richey documented in this encounter [facility] 04-28-2023 Miscellaneous Notes Corrected please schedule Could you please check the Ultrasound of the Left Elbow Thank you Yessy documented in this encounter [facility] 04-28-2023 Note HNO ID: [id number] Author: YESSY GONZALEZ RN Service: ? Author Type: Registered Nurse Type: Progress Notes Filed: 04/28/2023 14:04 Note Text: Since your last infusion, have you: Had any major change in your health (including new diagnosis of cancer, COPD or cogestive heart failure? No Been hospitalized? No, but ED visit 04/13/23 pain/swelling, given prednisone Had any infections? No Taking antibiotics/antivirals/antifungals for current infection? No Had surgery or do you have upcoming surgery? No Received any live vaccines in the last four weeks? No Worsening GI symptoms/abnormal pain/bloating No In the past 7 days have you had: Fevers/chills/night sweats? No New cough or cold symptoms or sore throat? No Nausea/vomiting/diarrhea? No Unusual swelling of your ankles of feet? No Burning/blood with urination or urinary frequency? No New weakness/numbness/stumbling falls? No New rash or open sores? No Patient taken to scheduling at end of visit to set up follow-up OVs with each infusion, derm appt, and L elbow ultrasound. [facility] 04-28-2023 Note HNO ID: [id number] Author: FARIBA HILL APRN.BOILERMAKING SUPERVISOR Service: ? Author Type: Nurse Practitioner Type: Progress Notes Filed: 05/24/2023 17:01 Note Text: FOLLOW UP VISIT-in person PCP: Tino Blake MD [address] [place] [address] Ms. Ludwig is a 38 year old patient here today for follow up of RA Interim History: More pain Swelling - right elbow , nodule Am stiffness - 1 hours Worse with weather changes Pain -7/10 Not taking anything for pain No infections No illness vit d 2000 international unit(s) daily Actemra every 4 weeks Arava 10mg daily Had tubal ligation She is cutting down on smoking REVIEW OF SYSTEMS: Review of Systems CONSTITUTION: Negative for: Weight loss or gain, Fever. Chills, Night sweats HEENT: Negative for: Nosebleeds, Mouth sores and Dry mouth RESPIRATORY: Negative for: Cough, Shortness of breath, Pain with breathing and Coughing up blood GASTROINTESTINAL: Negative for: Melena, Diarrhea, Abdominal pain, Heartburn, MUSCULOSKELETAL: Positive for: Arthralgias, Myalgias, Joint swelling and Morning Joint Stiffness Negative for: Muscle weakness NEUROLOGICAL: Positive for: Headaches and Numbness (numbness in right hand where she has inflammation, none on exam ) Negative for: Memory loss SKIN: Negative for: Rashes, Sun sensitive rashes, Skin color changes, Hair loss, Nail changesNegative for: Hair loss and Nail changes EYES: Negative for: Eye pain, Eye redness and Eye dryness CARDIOVASCULAR: Negative for: Chest pain, Leg swelling, Arrhythmia, Presyncope GENITOURINARY: Negative for: Dysuria, Hematuria, Ulceration HEMATOLOGIC/LYMPHATIC: Past Medical Hx, Past Surgical Hx. Social Hx and Family Hx: unchanged ACTIVE PROBLEM LIST Cyclic Citrullinated Peptide (Ccp) Antibody Positive - 12/30/2017 Rheumatoid Factor Positive - 12/30/2017 Seropositive Rheumatoid Arthritis (Hcc) - 12/30/2017 Smokes and Motivated to Quit - 12/30/2017 Comment: Counseled on cessation Vitamin D Deficiency - 04/23/2017 PHYSICAL EXAMINATION: LMP 01/13/2023 (Approximate) GENERAL: alert and appropriate, in no distress, well-hydrated, well nourished and happy, smiling, interactive SKIN: no rash noted HEAD: normocephalic, no abnormality or lesion noted EYES: no injection and visual acuity is grossly normal EARS: hearing grossly normal No apparent nasal bridge collapse, no cartilage swelling, no parotid gland swelling. NOSE: external nose normal without rhinorrhea OROPHARYNX: moist mucus membranes NECK: full ROM, no cervical LNs noted RESPIRATORY: breathing non-labored CHEST: clear lung sounds ABDOMEN: soft and non-tender MUSCULOSKELETAL : nodules on b/l wrist unchanged no apparent joint effusion or synovitis Swollen joints-right elbow- nodule Tender joints - right elbow No tenderness with percussion over long bones-femur/tibia b/l EXTREMITIES: FROM NEUROLOGIC: no obvious deficit Prior Test results discussed with patient. IMPRESSION/DIAGNOSIS: M05.9 Seropositive rheumatoid arthritis (HCC) (primary encounter diagnosis) R22.9 Localized superficial swelling, mass, or lump Z71.89 Encounter for medication review and counseling M65.9 Synovitis Z71.2 Encounter to discuss test results Z51.81 Medication monitoring encounter F17.200 Smoker Rheumatoid Arthritis Sero-positive, RF, CCP Non-erosive Per Dr. Pandya last note At last visit the patient's Rheumatoid Arthritis appears to be active and worse since last visit and since being off DMARDs. She has not followed up since 2019. She has been off RA medications for 1.5 years. Stopped Arava and xejanz in 2019. She reports only took Xeljanz for the 30 day free supply. She did not follow up on the Xelsource program, was unclear when asked. With patient's drug addition history, would have to defer from self injectables and needles at home. Due to her problems with transportation and lives far, she is unable to receive IV infusions. She is planning to follow up with local cryogenics engineer closer to home. Until she has her apt, we offered assistance with her RA care and follow up apt. Advised we can only provide 1 month supply and will need f/u apt for recheck and refill for her safety. We also reviewed importance of follow up with her dentist to evaluate for painful tooth and exclude infection. Dental infections can be risk for Rheumatoid Arthritis flares as well as concerns for more serious infections. Patient has had multiple unfortunate social and psychologic factors over her lifetime. We are assisting with hospice social worker consult, also to help with adherence to health care and patient's social support, especially that now she is caring for her , as a single mother. infliximab adverse reaction Med options Rituxan would increase risk for infection and decrease response to vaccines- will defer from this choice at this time Ore (more content not included)... [facility] 04-28-2023 History of Present illness Narrative Since your last infusion, have you: Had any major change in your health (including new diagnosis of cancer, COPD or cogestive heart failure? No Been hospitalized? No, but ED visit 04/13/23 pain/swelling, given prednisone Had any infections? No Taking antibiotics/antivirals/antifungals for current infection? No Had surgery or do you have upcoming surgery? No Received any live vaccines in the last four weeks? No Worsening GI symptoms/abnormal pain/bloating No In the past 7 days have you had: Fevers/chills/night sweats? No New cough or cold symptoms or sore throat? No Nausea/vomiting/diarrhea? No Unusual swelling of your ankles of feet? No Burning/blood with urination or urinary frequency? No New weakness/numbness/stumbling falls? No New rash or open sores? No Patient taken to scheduling at end of visit to set up follow-up OVs with each infusion, derm appt, and L elbow ultrasound. documented in this encounter [facility] 04-28-2023 History of Present illness Narrative FOLLOW UP VISIT-in person PCP: Tino Blake MD [address] [place] [address] Ms. Ludwig is a 38 year old patient here today for follow up of RA Interim History: More pain Swelling - right elbow , nodule Am stiffness - 1 hours Worse with weather changes Pain -/ Not taking anything for pain No infections No illness vit d 2000 international unit(s) daily Actemra every 4 weeks Arava 10mg daily Had tubal ligation She is cutting down on smoking REVIEW OF SYSTEMS: Review of Systems CONSTITUTION: Negative for: Weight loss or gain, Fever. Chills, Night sweats HEENT: Negative for: Nosebleeds, Mouth sores and Dry mouth RESPIRATORY: Negative for: Cough, Shortness of breath, Pain with breathing and Coughing up blood GASTROINTESTINAL: Negative for: Melena, Diarrhea, Abdominal pain, Heartburn, MUSCULOSKELETAL: Positive for: Arthralgias, Myalgias, Joint swelling and Morning Joint Stiffness Negative for: Muscle weakness NEUROLOGICAL: Positive for: Headaches and Numbness (numbness in right hand where she has inflammation, none on exam ) Negative for: Memory loss SKIN: Negative for: Rashes, Sun sensitive rashes, Skin color changes, Hair loss, Nail changesNegative for: Hair loss and Nail changes EYES: Negative for: Eye pain, Eye redness and Eye dryness CARDIOVASCULAR: Negative for: Chest pain, Leg swelling, Arrhythmia, Presyncope GENITOURINARY: Negative for: Dysuria, Hematuria, Ulceration HEMATOLOGIC/LYMPHATIC: Past Medical Hx, Past Surgical Hx. Social Hx and Family Hx: unchanged ACTIVE PROBLEM LIST Cyclic Citrullinated Peptide (Ccp) Antibody Positive - 12/30/2017 Rheumatoid Factor Positive - 12/30/2017 Seropositive Rheumatoid Arthritis (Hcc) - 12/30/2017 Smokes and Motivated to Quit - 12/30/2017 Comment: Counseled on cessation Vitamin D Deficiency - 04/23/2017 PHYSICAL EXAMINATION: LMP 01/13/2023 (Approximate) GENERAL: alert and appropriate, in no distress, well-hydrated, well nourished and happy, smiling, interactive SKIN: no rash noted HEAD: normocephalic, no abnormality or lesion noted EYES: no injection and visual acuity is grossly normal EARS: hearing grossly normal No apparent nasal bridge collapse, no cartilage swelling, no parotid gland swelling. NOSE: external nose normal without rhinorrhea OROPHARYNX: moist mucus membranes NECK: full ROM, no cervical LNs noted RESPIRATORY: breathing non-labored CHEST: clear lung sounds ABDOMEN: soft and non-tender MUSCULOSKELETAL : nodules on b/l wrist unchanged no apparent joint effusion or synovitis Swollen joints-right elbow- nodule Tender joints - right elbow No tenderness with percussion over long bones-femur/tibia b/l EXTREMITIES: FROM NEUROLOGIC: no obvious deficit Prior Test results discussed with patient. IMPRESSION/DIAGNOSIS: M05.9 Seropositive rheumatoid arthritis (HCC) (primary encounter diagnosis) R22.9 Localized superficial swelling, mass, or lump Z71.89 Encounter for medication review and counseling M65.9 Synovitis Z71.2 Encounter to discuss test results Z51.81 Medication monitoring encounter F17.200 Smoker Rheumatoid Arthritis Sero-positive, RF, CCP Non-erosive Per Dr. Pandya last note At last visit the patient's Rheumatoid Arthritis appears to be active and worse since last visit and since being off DMARDs. She has not followed up since 2019. She has been off RA medications for 1.5 years. Stopped Arava and xejanz in 2019. She reports only took Xeljanz for the 30 day free supply. She did not follow up on the [employer]els[employer] program, was unclear when asked. With patient's drug addition history, would have to defer from self injectables and needles at home. Due to her problems with transportation and lives far, she is unable to receive IV infusions. She is planning to follow up with local cryogenics engineer closer to home. Until she has her apt, we offered assistance with her RA care and follow up apt. Advised we can only provide 1 month supply and will need f/u apt for recheck and refill for her safety. We also reviewed importance of follow up with her dentist to evaluate for painful tooth and exclude infection. Dental infections can be risk for Rheumatoid Arthritis flares as well as concerns for more serious infections. Patient has had multiple unfortunate social and psychologic factors over her lifetime. We are assisting with hospice social worker consult, also to help with adherence to health care and patient's social support, especially that now she is caring for her , as a single mother. infliximab adverse reaction Med options Rituxan would increase risk for infection and decrease response to vaccines- will defer from this choice at this time Orencia may take 6 months fro response- patients disease has been active Patient is high risk for non-compliance and has a history of drug use- will avoid self injections Rheumatoid arthritis is active at todays visit. Actemra. Arava 10mg daily. No missed dose. Tolerating well . Patient feels it wis working well for her. Elbow swelling/ nodule . Will US and consult derm Had elevated lfts and normal with recheck. Off pred. We have been cautious with prescribing this patient high risk oral medications. More stress , seeing counselor. She has a history of non compliance with follow up and taking medications. Patient has a history of drug abuse and history of on oral medications. No chance of now. Methotrexate has not been preferred medication in past for this patient as she has high risk behaviors. In office infusion can be monitored more closely, with frequent office visits and ability to check labs regularly. podiatry consult for persistent foot pain. Went to ER for right foot pain in July xray at that time showed erosions from inflammation. Uric acid at time normal. Vit d def. Will start otc vit d. No procedures planned, no s/s of infections and no antibiotics. Smoker, consult to smoking cessation at prior visit . She has been cutting back on smoking since last visit. Continue actemra tolerating well every 4 weeks dose to 8mg/kg PLAN/RECOMMENDATIONS: labs actemra monthly increase to 8mg/kg Continue arava 10mg daily Continue vit d Discussed medications dosage, usage, goals of therapy and side effects. Patient instructed to notify provider of any changes in medical condition. Patient in agreement and in understanding of plan. Follow up: monthly RA Portions of this note have been copied from my previous note and have been updated to reflect today's visit note 04/28/23 all reflect current medical decision making from date of this visit. I spent a total of 30 minutes on the date of the service which included preparing to see the patient, [id number] patient care, completing clinical documentation, obtaining and/or reviewing separately obtained history, performing a medically appropriate examination, counseling and educating the patient/family/caregiver, and ordering medications, tests, or procedures. 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 Recommendations to share with referring physician/Primary care physician : Dear Dr. Blake, I had the pleasure of seeing your patient, Mrs Ludwig. I have enclosed a copy of my clinic note with my assessment and recommendations for this patient. Recommendations for your consideration as you deem necessary: -Continuous follow up with Primary care physician for cardiovascular disease prevention, for age appropriate cancer screening and routine health maintenance and wellness, and infection precautions and age appropriate immunization recommended. Thank you for allowing me to participate in the care of your patient. Fariba Hill APRN.CNP CC: Tino Blake MD documented in this encounter [facility] 04-21-2023 Miscellaneous Notes Please change patient schedule going forward with a ov each infusion with me If patients normal time to come is is 1130 Please use my 1100 slot 60min for every infusion with infusion directly following LMOM for patient to call the office back Please warm transfer to [facility] Rea April appointment has been scheduled as requested. Please let our infusion planner/scheduler(s) know how you would like to proceed for all future infusion visits as requested below by Dr. Leos. Dr. Leos does not have any available openings to accommodate Ms. Ludwig through 2023. Please advise. Thank you, Bailey ROTIZ April 21, 2023 10:25 AM Please add her to my schedule 04/27 at 2pm use 60 min virtual and I will try to stop over sometime during her infusion Patient was No Show to her f/u apt for RA today. Perhaps she is only able to come during her infusion apt. due to her other obligations. She is scheduled for her next Actemra infusion on April 28, 2023. Please check with Annie Mares CNP, if she can see her for f/u RA same day of her infusion apt. Please also schedule patient with Fariba Hill CNP for her future apts, before every Actemra infusion apt (same day). If I have openings on any of these days, can schedule apt with me. Patient has high rate of no show to apts and her treatment is important. She will need to be seen monthly at every infusion apt, when possible. thank you kindly, fa documented in this encounter [facility] 03-31-2023 Note HNO ID: [id number] Author: TRINA WALKER RN Service: ? Author Type: Registered Nurse Type: Progress Notes Filed: 03/31/2023 13:09 Note Text: Since your last infusion, have you: Had any major change in your health (including new diagnosis of cancer, COPD or cogestive heart failure? No Been hospitalized? No Had any infections? No Taking antibiotics/antivirals/antifungals for current infection? No Had surgery or do you have upcoming surgery? No Received any live vaccines in the last four weeks? No Worsening GI symptoms/abnormal pain/bloating No In the past 7 days have you had: Fevers/chills/night sweats? No New cough or cold symptoms or sore throat? No Nausea/vomiting/diarrhea? No Unusual swelling of your ankles of feet? No Burning/blood with urination or urinary frequency? No New weakness/numbness/stumbling falls? No New rash or open sores? No [facility] 03-31-2023 History of Present illness Narrative Since your last infusion, have you: Had any major change in your health (including new diagnosis of cancer, COPD or cogestive heart failure? No Been hospitalized? No Had any infections? No Taking antibiotics/antivirals/antifungals for current infection? No Had surgery or do you have upcoming surgery? No Received any live vaccines in the last four weeks? No Worsening GI symptoms/abnormal pain/bloating No In the past 7 days have you had: Fevers/chills/night sweats? No New cough or cold symptoms or sore throat? No Nausea/vomiting/diarrhea? No Unusual swelling of your ankles of feet? No Burning/blood with urination or urinary frequency? No New weakness/numbness/stumbling falls? No New rash or open sores? No documented in this encounter [facility] 03-30-2023 Miscellaneous Notes Spoke with patient, she will be in for infusion. Denies infections Called and left message with return number to verify patient will be here tomorrow and is infection free and not on antibiotics. documented in this encounter [facility] 03-01-2023 Note HNO ID: [id number] Author: TRINA WALKER RN Service: ? Author Type: Registered Nurse Type: Progress Notes Filed: 03/01/2023 14:06 Note Text: Since your last infusion, have you: Had any major change in your health (including new diagnosis of cancer, COPD or cogestive heart failure? No Been hospitalized? No Had any infections? No Taking antibiotics/antivirals/antifungals for current infection? No Had surgery or do you have upcoming surgery? No Received any live vaccines in the last four weeks? No Worsening GI symptoms/abnormal pain/bloating No In the past 7 days have you had: Fevers/chills/night sweats? No New cough or cold symptoms or sore throat? No Nausea/vomiting/diarrhea? No Unusual swelling of your ankles of feet? No Burning/blood with urination or urinary frequency? No New weakness/numbness/stumbling falls? No New rash or open sores? No [facility] 02-18-2023 Miscellaneous Notes Patient has been rescheduled as requested Pt did not show for her infusion today. Please call her to reschedule. LMOM for patient to call back regarding infusion for tomorrow LMOM for patient to confirm patient is coming for infusion tomorrow. VM left for patient to call office to confirm infusion. documented in this encounter [facility] 02-01-2023 Miscellaneous Notes LMOM for patient to call us back to reschedule her infusion . Please warm transfer to [facility] ----- Message from Irais Ochoa sent at 02/01/2023 3:13 PM EST ----- Regarding: infusion reschedule Contact: Patient name: Any Ludwig Who is calling: Patient Call back number: [phone] [facility] ordering provider: Dr Mccann Type of infusion: Actemra Patient just needs to reschedule 02/02/23 appt documented in this encounter [facility] 02-01-2023 Miscellaneous Notes Spoke with patient, she will be in for infusion, denies any signs or symptoms of illness LMOM for patient to call back regarding infusion for tomorrow documented in this encounter [facility] 01-20-2023 Note HNO ID: [id number] Author: 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 Service: ? Author Type: Nurse Practitioner Type: Progress Notes Filed: 01/20/2023 10:13 AM Note Text: FOLLOW UP VISIT-in person PCP: Tino lBake MD [address] [place] [address] Ms. Ludwig is a 37 year old patient here today for follow up of RA Interim History: More pain Swelling - right foot and wrists Am stiffness - 1 hours Worse with weather changes Pain -08/31 Not taking anything for pain No infections No illness Not taking vit d Will start otc 200 international unit(s) daily Actemra had 2 doses Arava 10mg daily Had tubal ligation She is cutting down on smoking REVIEW OF SYSTEMS: Review of Systems CONSTITUTION: Negative for: Weight loss or gain, Fever. Chills, Night sweats HEENT: Negative for: Nosebleeds, Mouth sores, Trouble swallowing, Dry mouth Negative for: Nosebleeds, Mouth sores and Dry mouth RESPIRATORY: Negative for: Cough, Shortness of breath, Pain with breathing and Coughing up blood GASTROINTESTINAL: Negative for: Melena, Diarrhea, Abdominal pain, Heartburn, MUSCULOSKELETAL: Positive for: Arthralgias, Myalgias, Joint swelling and Morning Joint Stiffness Negative for: Muscle weakness NEUROLOGICAL: Positive for: Headaches and Numbness (numbness in right hand where she has inflammation, none on exam ) Negative for: Memory loss SKIN: Negative for: Rashes, Sun sensitive rashes, Skin color changes, Hair loss, Nail changesNegative for: Hair loss and Nail changes EYES: Negative for: Eye pain, Eye redness, Visual disturbance, Eye dryness Negative for: Eye pain, Eye redness and Eye dryness CARDIOVASCULAR: Negative for: Chest pain, Leg swelling, Arrhythmia, Presyncope GENITOURINARY: Negative for: Dysuria, Hematuria, Ulceration HEMATOLOGIC/LYMPHATIC: Negative for: Swollen glands Past Medical Hx, Past Surgical Hx. Social Hx and Family Hx: unchanged ACTIVE PROBLEM LIST Cyclic Citrullinated Peptide (Ccp) Antibody Positive - 12/30/2017 Rheumatoid Factor Positive - 12/30/2017 Seropositive Rheumatoid Arthritis (Hcc) - 12/30/2017 Smokes and Motivated to Quit - 12/30/2017 Comment: Counseled on cessation Vitamin D Deficiency - 04/23/2017 PHYSICAL EXAMINATION: BP 128/82 Pulse 84 Temp (!) 35.7 ?C (96.2 ?F) Wt 72.4 kg (159 lb 11.6 oz) LMP 01/13/2023 (Approximate) SpO2 97% BMI 25.02 kg/m? GENERAL: alert and appropriate, in no distress, well-hydrated, well nourished and happy, smiling, interactive SKIN: no rash noted HEAD: normocephalic, no abnormality or lesion noted EYES: no injection and visual acuity is grossly normal EARS: hearing grossly normal No apparent nasal bridge collapse, no cartilage swelling, no parotid gland swelling. 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 IMPRESSION/DIAGNOSIS: M05.9 Seropositive rheumatoid arthritis (HCC) (primary encounter diagnosis) M79.671 Pain in right foot Z51.81, Z79.899 Encounter for monitoring leflunomide therapy Z71.89 Encounter for medication review and counseling M65.9 Synovitis E55.9 Vitamin D deficiency Z51.81 Medication monitoring encounter Z71.2 Encounter to discuss test results Rheumatoid Arthritis Sero-positive, RF, CCP Non-erosive Per Dr. Pandya last note At last visit the patient's Rheumatoid Arthritis appears to be active and worse since last visit and since being off DMARDs. She has not followed up since 2019. She has been off RA medications for 1.5 years. Stopped Arava and xejanz in 2019. She reports only took Xeljanz for the 30 day free supply. She did not follow up on the [employer]els[employer] program, was unclear when asked. With patient's drug addition history, would have to defer from self injectables and needles at home. Due to her problems with transportation and lives far, she is unable to receive IV infusions. She is planning to follow up with local cryogenics engineer closer to home. Until she has her apt, we offered assistance with her RA care and follow up apt. Advised we can only provide 1 month supply and will need f/u apt for recheck and refill for her safety. We also reviewed importance of follow up with her dentist to evaluate for painful tooth and exclude infection. Dental infections can be risk for Rheumatoid Arthritis flares as well as concerns for more serious infections. Patient has had multiple unfortunate social (more content not included)... [facility] 01-20-2023 Miscellaneous Notes Please increase actemra 8mg/kg every 4 weeks documented in this encounter [facility] 01-20-2023 Instructions Fariba Hill APRN.CNP - 01/20/2023 9:26 AM EST -PLEASE NOTE THAT WE REVIEW ALL YOUR TEST RESULTS AT YOUR NEXT FOLLOW UP VISIT WITH YOU. IF ANY ABNORMAL LAB REQUIRES SOONER ATTENTION, WE WILL CONTACT YOU. -If you have signed up on [facility], we will release your test results through [facility]. Prednisone 20mg ( 4 tablets ) for 7 days 15mg ( 3 tablets) for 7 days 10mg (2 tablets) for 7 days 5mg ( 1 tablets) for 7 days With breakfast No other nsaids Continue actemra arava 10mg daily Hold arava/ actemra infection/ ill/ antibiotics - Vitamin D : RX then over the counter vitamin D3: 2000 international units daily over the counter, with a meal - Please take your vitamin D with dinner or a handful of raw unsalted Almonds for best absorption. Vitamin D is a fat soluble vitamin that requires it be taken with good fat to be absorbed. - Your calcium is sufficient in your diet These include nuts, seeds, legumes/beans, peas, dark green leafy vegetables, plant based milk Additional calcium rich foods listed below - Soaking Almonds overnight in the fridge with drinking water, can help with softening the almonds and improved absorption of the almonds. - A whole plant based diet and healthy lifestyle have been reported to be optimal for bone health and prevention of bone loss Recommendations for healthy lifestyle include: Healthy nutritious diet, anti-inflammatory diet, appropriate exercise, good sleep hygiene, stress management, supplementing vital deficiencies and maintaining healthy weight. with BMI <26. 5 points to remember to improve your health and continue on a healthy path: 1- Optimal nutritious food, such as a Whole Plant Based diet You can watch the movie that features the Whole Plant Based diet, [place] over knives (see video online and visit website). Another movie that was recently released is: Eating You Alive (you can find it at Traity) Dr. Lisa Armando is a [facility] physician who is an expert in Whole Plant based diet. His website is Redux. His research work highlighted the benefits of Whole plant based diet in reversing and preventing heart disease. Consider reading Rip Prabha: The Engine 2 Diet, cookbook Mrs. Armando (his ) has a cookbook with many recipes on whole plant based food: The Prevent and Reverse Heart Disease cookbook. Dr. Stephen Martinez, has a website and free keisha to help get started on a whole plant based diet, at Pagar.me and the free keisha is 21-Day Vegan Kickstart with meals and recipes to follow. He has multiple free videos and YouTube, for example: https://youtu.be/[email or web address] , [email or web address]://youtu.be/[email or web address] Dr. Gordy Farrell has proven starch diet whole plant based and benefit to his Rheumatoid Arthritis patients, his website: ruyStar [employer] ABlakisha.Strap Dr. Maira Bertrand is a renowned atmospheric scientist, who has studied and researched the benefits of the Whole plant based diet. He has also researched the adverse effects of animal proteins on health. He presents many of his research findings in his book The [place] study. Dr. Maurilio Xie has completed many research trials proving the reversal of diseases with healthy lifestyle and the Whole Plant based diet. Dr. Maurilio Xie website is: Nuroa.Strap UnDo It a new book by Dr. Maurilio Thomas has dedicated a website and additional time to reviewing all food related articles and research and presents them in his power point presentation and on his website at: nutritionfacts.org Dr. Thomas has multiple free videos and YouTube, for example [email or web address] and [email or web address]. Also, you could find additional information by reading or watching online and YouTube such as: Head Of Sales And Marketing AJ, Cooking With Plants, The Vegan Corner (recipes from an Syrian Head Of Sales And Marketing), and visiting the provided websites for additional information on the whole plant based benefit and cooking recipes. The Whole Foods Plant Based Cooking Show Athletes such as Kelvin Kan, Antonio Guillermo, Shaheen Mooney YouTube Guilt Free Shaheen Mooney YouTube Guilt Free TV and Hua with [employer]. Goodbye Lupus by Kandi Leonard M.D If you suspect you are gluten sensitive or intolerant, consider gluten free diet. Gluten could lead to increased inflammation in the bowels and body in certain patients. Consider organic and non-GMO products when shopping for your food. GMO are genetically modified food that may have adverse impact on our health. 2- Regular Exercise, i.e. beginner yoga Come As You Are: YOGA - Gentle Yoga Anyone Can Do Anywhere www.[employer]Strap/yo ga landon chi, stretching, cardio, gradual strengthening, pool therapy, physical therapy 3- Good Sleep (poor sleep impacts everything, recommended sleep is 7.5 to 8 hrs. a night). Meditation and relaxation techniques have shown to help with improving sleep. 4- Stress management, staying positive, be happy, laugh often (it is a great medicine) Find time to relax and meditate if possible. Following steps 1-3 will help with this as well. In psychiatric disorders, it is important to follow with a professional on the optimal management of depression, anxiety or psychiatric illness 5- Supplementing necessary vitamins and minerals, correcting any deficiencies, i.e. Vitamin D, B12, omega-3 fatty acids etc... Go natural when possible If you are following a Whole plant based diet, it is recommended to take Vitamin B12, sublingual, dissolve under the tongue, take once daily. Vitamin B12 is available over the counter, dose could be 2500 mcg, and can be taken once a week, and if your blood levels are low, you may need to take it once daily or a higher dose. Raw: Garlic, Cilantro, [place] nuts, Pumpkin seeds, [place] seeds and Flax seed powder have been reported to help with certain metal detoxification such as mercury. [place]-3 plant based sources: rachana seeds, flax seed powder, flax milk, walnuts. Turmeric can be found natural, used as the spice powder or the root with your food. This is also available as a capsule. Sweet cherries (raw cleaned or frozen) and Turmeric have anti-inflammatory benefit Start reviewing the Whole Plant Based Diet, by watching [place] over myTAG.com movie and then review website. There are many other resources and educational information on the Whole plant based diet on the Internet and documentaries. There are other resources for wellness that you can also benefit from, such as the [facility] Wellness website, [facility].org and includes the Mediterranean heart healthy diet and yoga and meditation. Please avoid all dairy products. You could use non-dairy milk such as Flax milk, Cashew milk, [place] milk, Rice milk, Oat milk or Hemp milk, instead. It is very important to avoid all: refined sugars (including high fructose syrup), refined carbohydrates, any artificial sweeteners and artificial preservatives, and soda and processed food. Insure adequate hydration; drink at least 6 to 8 cups of water daily Examples of Smoothies: Every morning you can start your day with a healthy natural anti-inflammatory smoothie, for example, you can blend: fresh or frozen sweet cherries, half a root of turmeric (1 to 2 inches), banana, blue berries, walnuts, few leaves of kale, add flax milk (or almond milk), and enjoy. You could add half an avocado if you like it smoother. If you do not tolerate walnuts, you can use flax seeds, rachana seeds or hemp seeds instead. If you do not like plant based milk, you can use coconut water or plain water instead. Other smoothies, including green smoothies, are also very healthy and highly anti-inflammatory. For example fruits (such as banana or frozen anurag or pineapple) and add significant amount of leafy greens, then add water or coconut water and blend until smooth. You can also add turmeric in this recipe. GENERAL INFORMATION ON BONE HEALTH : -Bone Density testing (DXA scan) as recommended. -Vitamin D supplementation is recommended, unless blood levels are sufficient. Recommended daily dose of 1000 to 2000 IU total a day, or the dose necessary to achieve a Vitamin D 25-OH blood level of >31 and preferably closer to 40-60 ng/mL. Vitamin D pills are available over the counter. -Recommended daily dose of calcium: 1200mg total a day in divided doses. Calcium is usually sufficient in our regular diet, also available in multivitamins. Patients on certain dietary restrictions or those unable to meet their daily calcium by diety alone, may require calcium supplements. For patient with history of calcium kidney stones, Calcium Citrate would be the recommended supplement. It is recommended to avoid caclium carbonate supplement in this case, as these may increase risk of calcium kidney stones. The after visit summary has information on dietary calcium and instructions on reading calcium label and converting the %DV to mg. When you read a food label and you see calcium reported as DV %, add a zero and this will provide you with the approximate mg value of the calcium content in this food. For example, if a glass of almond milk is labeled as 40% calcium DV, then this contains 400 mg of calcium. For additional information, please see references provided. -Regular weight-bearing and muscle-strengthening exercise -Avoidance of tobacco smoking, excessive alcohol intake and excessive caffeine intake. -Fall and fracture precautions -It is recommend to continue regular follow up visits with your dentist every 6 months, and continue with good oral hygiene. Calcium: If your diet is sufficient in Calcium rich food, you will not need calcium supplement. Calcium Citrate is the preferred calcium if you have had kidney stones. Daily recommended calcium dose: 600mg twice a day with meals. Adequate calcium ingestion is essential for maintaining healthy bones. The recommended dose daily intake of calcium varies depending on individual needs but is usually between 1200 and 1500mg daily, preferably around 1200mg a day in divided dose (not all taken at once). This is equivalent to about five 8oz glasses of milk per day. Many foods are rich in calcium and they include: - Plant based, non-dairy, calcium rich products, include nuts, almond milk, beans, lentils - Vegetables and Fruit: bok-gilbert, turnips, broccoli, kale, collards, - Dairy products: milk, cheese, yogurt, ice-cream - Fish products: canned salmon, sardines and shrimp - Cereals and nuts: almonds, sesame seeds, fortified cereals and oatmeal - Other foods: fortified orange-juice, figs, soybeans, other beans and eggs. If you have a low calcium diet and cannot tolerate calcium-rich foods, many supplements are available today. Your pharmacist can help you choose the one which best suits your needs. A few tips on supplements: - They should be easy to swallow - They should dissolve easily in cup of vinegar in < 15 minutes. - Count the ELEMENTAL calcium mgs. E.g. Calcium 499mg may have only 221mg of elemental Calcium. - Calcium citrate is the calcium supplement to take if you have had kidney stones and unable to meet your calcium requirements from food/diet alone. - There is such a variety today that it is best to bring in the bottle to your doctor to show them exactly what you are taking. Lastly too much calcium can be bad for you. Recent studies show extra supplements may increase your risk of kidney stones or cause high calcium levels in some people. You should discuss how much you should be taking with your doctor before starting them. Further Information is available from the following resources: www.nof.org (National Osteoporosis Foundation) http://www.osteo.org/osteolinks.as p National Institutes of Health: 6-451-408-BONE The Calcium Information Center: Non-Dairy, Plant based Milk, contain 1 glass = 450 mg of calcium Exampled include Flax Milk, [place] Milk, Cashew Milk Examples of Food Sources of Calcium from NIH Food Milligrams (mg) per serving Percent DV* Soymilk, calcium-fortified, 8 ounces 299 30 King juice, calcium-fortified, 6 ounces 261 26 Tofu, firm, made with calcium sulfate, cup* 253 25 Tofu, soft, made with calcium sulfate, cup* 138 14 Zyscc-jv-byk cereal, calcium-fortified, 1 cup 100-1,000 10-100 Turnip greens, fresh, boiled, cup 99 10 Kale, raw, chopped, 1 cup 100 10 Kale, fresh, cooked, 1 cup 94 9 Albanian cabbage, bok gilbert, raw, shredded, 1 cup 74 7 Bread, white, 1 slice 73 7 Tortilla, corn, iwjtl-nk-rgjo/mcgee, one 6 diameter 46 5 Tortilla, flour, ywlbf-st-bbkw/mcgee, one 6 diameter 32 3 Bread, whole-wheat, 1 slice 30 3 Broccoli, raw, cup 21 2 * DV = Daily Value. DVs were developed by the U.S. Food and Drug Administration to help consumers compare the nutrient contents among products within the context of a total daily diet. The U.S. Department of Agriculture s (USDA s) Nutrient Database Web site lists the nutrient content of many foods and provides comprehensive list of foods containing calcium arranged by nutrient content and by food name. *Calcium content varies slightly by fat content; the more fat, the less calcium the food contains. * Calcium content is for tofu processed with a calcium salt. Tofu processed with other salts does not provide significant amounts of calcium. You could acces this information online at: http://ods.od.nih.gov/factsheets/C alcium-HealthProfessional/ Vitamin D: Vitamin D3= cholecalciferol, available over the counter. Dose recommended 800 to 1000 iu daily with a meal; Certain patients required 0700-1382 iu daily and in patients deficient in Vitamin D, they require higher dosages. Certain patient requires higher dose, depending on their Vit D blood levels. Vitamin D is essential for calcium metabolism. It is really a hormone produced mainly in your skin after exposure to sunlight. Vitamin D helps you absorb calcium from your stomach and kidneys and incorporates it into your bones. Studies show approximately 50% of [place] men and women are vitamin D deficient in the winter. Milder cases of vitamin D are usually asymptomatic so the only way to know you have a problem is to have a blood level checked. More severe cases can cause osteomalacia (a.k.a. rickets) which can result in bone pain, weak bones and several abnormal laboratory tests and also weak muscles (a.k.a. myopathy). When this happens, your bones lose a lot of their calcium stores as the body tries to regulate the calcium required by other tissues. Prolonged deficiency can lead to severe bone disorders and fractures. Unlike calcium, dietary sources of vitamin D are rare, limited to a few fish oils particularly cod-liver oil, other fortified foods and egg yolks. Often supplementation is needed. Many multivitamins contain some vitamin D and vitamin D alone preparations are now available in several forms. The recommended daily intake of vitamin D used to be 400 and 800 international units, however, it is now known that larger amounts are needed, as discussed above. Your doctor can prescribe prescription strength vitamin D for you if necessary, if you have marked deficiency or diseases of the liver or kidney. Supplementation in patients with severe deficiency can stabilize or improve bone mineral density and in frail elderly persons, may reduce their risk of falling. Additional Information is available from: www.nof.org (the national osteoporosis foundation) http://www.[facility].org/art hritis/osteo/info.htm http://ods.od.nih.gov/factsheets/v itamind.asp National Institutes of Health: 1-370-562-BONE [facility] Calcium Information Kamiah: Thank you for choosing [facility] for your healthcare. Sincerely, 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 documented in this encounter [facility] 01-20-2023 History of Present illness Narrative FOLLOW UP VISIT-in person PCP: Tino Blake MD [address] [place] [address] Ms. Ludwig is a 37 year old patient here today for follow up of RA Interim History: More pain Swelling - right foot and wrists Am stiffness - 1 hours Worse with weather changes Pain -7/10 Not taking anything for pain No infections No illness Not taking vit d Will start otc 200 international unit(s) daily Actemra had 2 doses Arava 10mg daily Had tubal ligation She is cutting down on smoking REVIEW OF SYSTEMS: Review of Systems CONSTITUTION: Negative for: Weight loss or gain, Fever. Chills, Night sweats HEENT: Negative for: Nosebleeds, Mouth sores, Trouble swallowing, Dry mouth Negative for: Nosebleeds, Mouth sores and Dry mouth RESPIRATORY: Negative for: Cough, Shortness of breath, Pain with breathing and Coughing up blood GASTROINTESTINAL: Negative for: Melena, Diarrhea, Abdominal pain, Heartburn, MUSCULOSKELETAL: Positive for: Arthralgias, Myalgias, Joint swelling and Morning Joint Stiffness Negative for: Muscle weakness NEUROLOGICAL: Positive for: Headaches and Numbness (numbness in right hand where she has inflammation, none on exam ) Negative for: Memory loss SKIN: Negative for: Rashes, Sun sensitive rashes, Skin color changes, Hair loss, Nail changesNegative for: Hair loss and Nail changes EYES: Negative for: Eye pain, Eye redness, Visual disturbance, Eye dryness Negative for: Eye pain, Eye redness and Eye dryness CARDIOVASCULAR: Negative for: Chest pain, Leg swelling, Arrhythmia, Presyncope GENITOURINARY: Negative for: Dysuria, Hematuria, Ulceration HEMATOLOGIC/LYMPHATIC: Negative for: Swollen glands Past Medical Hx, Past Surgical Hx. Social Hx and Family Hx: unchanged ACTIVE PROBLEM LIST Cyclic Citrullinated Peptide (Ccp) Antibody Positive - 12/30/2017 Rheumatoid Factor Positive - 12/30/2017 Seropositive Rheumatoid Arthritis (Hcc) - 12/30/2017 Smokes and Motivated to Quit - 12/30/2017 Comment: Counseled on cessation Vitamin D Deficiency - 04/23/2017 PHYSICAL EXAMINATION: BP 128/82 Pulse 84 Temp (!) 35.7 C (96.2 F) Wt 72.4 kg (159 lb 11.6 oz) LMP 01/13/2023 (Approximate) SpO2 97% BMI 25.02 kg/m GENERAL: alert and appropriate, in no distress, well-hydrated, well nourished and happy, smiling, interactive SKIN: no rash noted HEAD: normocephalic, no abnormality or lesion noted EYES: no injection and visual acuity is grossly normal EARS: hearing grossly normal No apparent nasal bridge collapse, no cartilage swelling, no parotid gland swelling. 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 IMPRESSION/DIAGNOSIS: M05.9 Seropositive rheumatoid arthritis (HCC) (primary encounter diagnosis) M79.671 Pain in right foot Z51.81, Z79.899 Encounter for monitoring leflunomide therapy Z71.89 Encounter for medication review and counseling M65.9 Synovitis E55.9 Vitamin D deficiency Z51.81 Medication monitoring encounter Z71.2 Encounter to discuss test results Rheumatoid Arthritis Sero-positive, RF, CCP Non-erosive Per Dr. Pandya last note At last visit the patient's Rheumatoid Arthritis appears to be active and worse since last visit and since being off DMARDs. She has not followed up since 2019. She has been off RA medications for 1.5 years. Stopped Arava and xejanz in 2019. She reports only took Xeljanz for the 30 day free supply. She did not follow up on the [employer] program, was unclear when asked. With patient's drug addition history, would have to defer from self injectables and needles at home. Due to her problems with transportation and lives far, she is unable to receive IV infusions. She is planning to follow up with local cryogenics engineer closer to home. Until she has her apt, we offered assistance with her RA care and follow up apt. Advised we can only provide 1 month supply and will need f/u apt for recheck and refill for her safety. We also reviewed importance of follow up with her dentist to evaluate for painful tooth and exclude infection. Dental infections can be risk for Rheumatoid Arthritis flares as well as concerns for more serious infections. Patient has had multiple unfortunate social and psychologic factors over her lifetime. We are assisting with hospice social worker consult, also to help with adherence to health care and patient's social support, especially that now she is caring for her , as a single mother. infliximab adverse reaction Med options Rituxan would increase risk for infection and decrease response to vaccines- will defer from this choice at this time Orencia may take 6 months fro response- patients disease has been active Patient is high risk for non-compliance and has a history of drug use- will avoid self injections Rheumatoid arthritis is active at todays visit. Actemra. Has not seen good response yet. Arava 10mg daily. No missed dose. Had elevated lfts and normal with recheck. Off pred. We have been cautious with prescribing this patient high risk oral medications. More stress , seeing counselor. She has a history of non compliance with follow up and taking medications. Patient has a history of drug abuse and history of on oral medications. No chance of now. Methotrexate has not been preferred medication in past for this patient as she has high risk behaviors. In office infusion can be monitored more closely, with frequent office visits and ability to check labs regularly. Prefer arava for this patient as she has tolerated well in the past. Synovitis in multiple joints. Swelling bilateral wrists, right foot. Pred taper for flare tolerated well in past . podiatry consult for persistent foot pain. Went to ER for right foot pain in July xray at that time showed erosions from inflammation. Uric acid at time normal. Vit d def. Will start otc vit d. No procedures planned, no s/s of infections and no antibiotics. Smoker, consult to smoking cessation at prior visit . She has been cutting back on smoking since last visit. Continue actemra tolerating well every 4 weeks . Will increase dose to 8mg/kg PLAN/RECOMMENDATIONS: labs actemra monthly increase to 8mg/kg - still has persistent synovitis Continue arava 10mg daily Continue vit d Prednisone 20mg ( 4 tablets ) for 7 days 15mg ( 3 tablets) for 7 days 10mg (2 tablets) for 7 days 5mg ( 1 tablets) for 7 days With breakfast No other nsaids Discussed medications dosage, usage, goals of therapy and side effects. Patient instructed to notify provider of any changes in medical condition. Patient in agreement and in understanding of plan. Follow up: 3 months RA Portions of this note have been copied from my previous note and have been updated to reflect today's visit note January 20, 2023 all reflect current medical decision making from date of this visit. I spent a total of 35 minutes on the date of the service which included preparing to see the patient, [id number] patient care, completing clinical documentation, obtaining and/or reviewing separately obtained history, performing a medically appropriate examination, counseling and educating the patient/family/caregiver, and ordering medications, tests, or procedures. 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 Recommendations to share with referring physician/Primary care physician : Dear Dr. Blake, I had the pleasure of seeing your patient, Mrs Ludwig. I have enclosed a copy of my clinic note with my assessment and recommendations for this patient. Recommendations for your consideration as you deem necessary: -Continuous follow up with Primary care physician for cardiovascular disease prevention, for age appropriate cancer screening and routine health maintenance and wellness, and infection precautions and age appropriate immunization recommended. Thank you for allowing me to participate in the care of your patient. Fariba Hill APRN.CNP CC: Tino Blake MD documented in this encounter [facility] 12-31-2022 Note HNO ID: [id number] Author: Prema Mckinney RN Service: ? Author Type: Registered Nurse Type: Progress Notes Filed: 12/31/2022 11:07 AM Note Text: Since your last infusion, have you: Had any major change in your health (including new diagnosis of cancer, COPD or cogestive heart failure? No Been hospitalized? No Had any infections? No Taking antibiotics/antivirals/antifungals for current infection? No Had surgery or do you have upcoming surgery? No Received any live vaccines in the last four weeks? No Worsening GI symptoms/abnormal pain/bloating No In the past 7 days have you had: Fevers/chills/night sweats? No New cough or cold symptoms or sore throat? No Nausea/vomiting/diarrhea? No Unusual swelling of your ankles of feet? No Burning/blood with urination or urinary frequency? No New weakness/numbness/stumbling falls? No New rash or open sores? No [facility] 12-31-2022 History of Present illness Narrative Since your last infusion, have you: Had any major change in your health (including new diagnosis of cancer, COPD or cogestive heart failure? No Been hospitalized? No Had any infections? No Taking antibiotics/antivirals/antifungals for current infection? No Had surgery or do you have upcoming surgery? No Received any live vaccines in the last four weeks? No Worsening GI symptoms/abnormal pain/bloating No In the past 7 days have you had: Fevers/chills/night sweats? No New cough or cold symptoms or sore throat? No Nausea/vomiting/diarrhea? No Unusual swelling of your ankles of feet? No Burning/blood with urination or urinary frequency? No New weakness/numbness/stumbling falls? No New rash or open sores? No documented in this encounter [facility] 12-30-2022 Miscellaneous Notes Patient calling in to office. Verified by name and . She states that she is infection free and not currently taking any antibiotics. She denies any hospitalizations or changes in health since her last infusion. She will be in tomorrow as scheduled for infusion. VM left for pt to call office to confirm infusion tomorrow. documented in this encounter [facility] 12-18-2022 Miscellaneous Notes Left message for patient to call office regarding below. sent mychart Left message for patient to call office regarding below. Please call patient Normal liver enzymes Will recheck in 1 month May restart arava 10mg daily Received outside lab results from [facility] AST and ALT results completed on 12/14 ALT: 33 AST: 19 placed on Fariba's desk for review documented in this encounter [facility] 12-14-2022 Miscellaneous Notes Lab orders faxed with confirmation to below number. [facility] calling about orders. Patient did not give correct fax number. Please re-fax to [phone]. Patient is still waiting at lab. Please advise. DIANA Bethea Pollock POST (Patient Operations Support Team) Please note: Please do not re-route phone encounters back to this agent, please send to appropriate office pool. Agent works in operations center and cannot complete patient specific tasks. Fariba from [facility] called to follow up on request -- lab orders faxed to [phone] as requested with confirmation Any Ludwig is calling 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 today to request Lab Orders be faxed to [facility]. She believes their fax number is [phone]. She states we can call them to verify at [phone]. Please notify pt once orders have been faxed. Patient has been identified by name and birthdate. Duration of symptoms: N/A Person calling: self Call patient at: on cell [phone] (home) [phone] (cell) Was an appointment scheduled: No Closing statement: Results or non-symptom based questions: Thank you for calling [facility], your call will be returned within the next business day. Komal Nunn documented in this encounter [facility] 12-11-2022 Miscellaneous Notes Spoke with patient High liver enzymes Has not been taking arava since 09/2022 pharmacy did not have it Not taking tylenol Not taking anything otc Does not drink alcohol Not using any other drugs Recheck ast alt this week Component Latest Ref Rng & Units 11/27/2022 WBC 3.70 - 11.00 k/uL 7.96 RBC 3.90 - 5.20 m/uL 4.36 Hemoglobin 11.5 - 15.5 g/dL 11.7 Hematocrit 36.0 - 46.0 % 36.5 MCV 80.0 - 100.0 fL 83.7 MCH 26.0 - 34.0 pg 26.8 MCHC 30.5 - 36.0 g/dL 32.1 RDW-CV 11.5 - 15.0 % 13.7 Platelet Count 150 - 400 k/uL 328 MPV 9.0 - 12.7 fL 10.5 Neut% % 38.6 Abs Neut (ANC) 1.45 - 7.50 k/uL 3.07 Lymph% % 49.2 Abs Lymph 1.00 - 4.00 k/uL 3.92 Sampson% % 8.2 Abs Sampson <0.87 k/uL 0.65 Eosin% % 2.3 Abs Eosin <0.46 k/uL 0.18 Baso% % 0.6 Abs Baso <0.11 k/uL 0.05 Immature Gran % % 1.1 IMMATURE GRANS (ABS) <0.10 k/uL 0.09 NRBC /100 WBC 0.0 Absolute nRBC <0.01 k/uL <0.01 DTYPE Auto Protein, Total 6.3 - 8.0 g/dL 6.7 Albumin 3.9 - 4.9 g/dL 4.0 Calcium 8.5 - 10.2 mg/dL 9.1 Bilirubin, Total 0.2 - 1.3 mg/dL 0.2 Alkaline Phosphatase 34 - 123 U/L 77 AST 13 - 35 U/L 54 (H) ALT 7 - 38 U/L 66 (H) Glucose 74 - 99 mg/dL 72 (L) BUN 7 - 21 mg/dL 8 Creatinine 0.58 - 0.96 mg/dL 0.48 (L) Sodium 136 - 144 mmol/L 133 (L) Potassium 3.7 - 5.1 mmol/L 4.4 Chloride 97 - 105 mmol/L 98 CO2 22 - 30 mmol/L 24 Anion Gap 9 - 18 mmol/L 11 eGFR >=60 mL/min/1.73m 125 CRP <0.9 mg/dL 0.4 WSR 0 - 20 mm/hr 20 documented in this encounter [facility] 11-25-2022 Miscellaneous Notes LMOM for patient to call the office if she is able to move from Fri to Th. Please warm transfer to [facility] documented in this encounter [facility] 11-13-2022 Miscellaneous Notes Left VM that steroid has been sent to pharmacy. Left message for patient to call office regarding below. Please call patient Steriod taper sent to the pharmacy please update patient Patient calling to ask questions re: infusion that was supposed to be for 11/12 but was cancelled due to no approval yet from insurance Please call patient back at [phone] Mars Lerner November 11, 2022 12:49 PM documented in this encounter [facility] 10-22-2022 Note HNO ID: [id number] Author: Na Arevalo RN Service: ? Author Type: Registered Nurse Type: Progress Notes Filed: 10/22/2022 3:07 PM Note Text: Since your last infusion, have you: Had any major change in your health (including new diagnosis of cancer, COPD or cogestive heart failure? No Been hospitalized? No Had any infections? No Taking antibiotics/antivirals/antifungals for current infection? No Had surgery or do you have upcoming surgery? No Received any live vaccines in the last four weeks? No Worsening GI symptoms/abnormal pain/bloating No In the past 7 days have you had: Fevers/chills/night sweats? No New cough or cold symptoms or sore throat? No Nausea/vomiting/diarrhea? No Unusual swelling of your ankles of feet? No Burning/blood with urination or urinary frequency? No New weakness/numbness/stumbling falls? No New rash or open sores? No Pt complains of chest pressure, discomfort and trouble breathing after Avsola was started. Infusion stopped, Fariba Hill, ANTHONY and Dr. Hoyos at bedside. Benadryl 50 mg IVP given and Solu-Medrol 100 mg IVP. Pt reports relief of symptoms. Pt reports that she has not been taking Arava as she ran out a couple weeks ago, Fariba Hill aware. Per Dr. Leos discontinue infusion today, must change to a different treatment. Pt rested until she felt that she was awake enough to drive home, education on new medication given prior to leaving. [facility] 10-22-2022 Note HNO ID: [id number] Author: Fariba Hill, CAROL[place].ANTHONY Service: ? Author Type: Nurse Practitioner Type: Progress Notes Filed: 11/18/2022 7:59 AM Note Text: FOLLOW UP VISIT-in person PCP: Tino Blake MD [facility] [place] [address] Ms. Ludwig is a 37 year old patient here today for follow up of RA Interim History: Doing ok Feels infliximab infusion working well When closer to time to have infusion feels more pains Wrists and right foot Swelling in bilateral wrists Swelling in right foot Has not completed xray feet Pain in left elbow since yesterday Am stiffness - 1-2 hours Worse with weather changes Pain -08/01 Going job interviews- so excited No infections No illness Feeling good today Some fatigue Went to ER 08/14 and 09/13 for toe swelling Completed xray Not taking vit d - does better on RX Infliximab every 5 weeks Arava 10mg daily Had tubal ligation She is cutting down on smoking REVIEW OF SYSTEMS: Review of Systems CONSTITUTION: Negative for: Weight loss or gain, Fever. Chills, Night sweats HEENT: Negative for: Nosebleeds, Mouth sores, Trouble swallowing, Dry mouth RESPIRATORY: Negative for: Cough, Shortness of breath, Pain with breathing and Coughing up blood GASTROINTESTINAL: Negative for: Melena, Diarrhea, Abdominal pain, Heartburn, MUSCULOSKELETAL: Positive for: Arthralgias, Joint swelling and Morning Joint Stiffness Negative for: Muscle weakness NEUROLOGICAL: Positive for: Numbness (numbness in right hand where she has inflammation, none on exam ) SKIN: Negative for: Rashes, Sun sensitive rashes, Skin color changes, Hair loss, Nail changes EYES: Negative for: Eye pain, Eye redness, Visual disturbance, Eye dryness CARDIOVASCULAR: Negative for: Chest pain, Leg swelling, Arrhythmia, Presyncope GENITOURINARY: Negative for: Dysuria, Hematuria, Ulceration HEMATOLOGIC/LYMPHATIC: Negative for: Swollen glands Past Medical Hx, Past Surgical Hx. Social Hx and Family Hx: unchanged ACTIVE PROBLEM LIST Cyclic Citrullinated Peptide (Ccp) Antibody Positive - 12/30/2017 Rheumatoid Factor Positive - 12/30/2017 Seropositive Rheumatoid Arthritis (Hcc) - 12/30/2017 Smokes and Motivated to Quit - 12/30/2017 Comment: Counseled on cessation Vitamin D Deficiency - 04/23/2017 PHYSICAL EXAMINATION: BP 116/79 Pulse 69 Temp 36.1 ?C (96.9 ?F) LMP 09/23/2022 (Approximate) SpO2 98% GENERAL: alert and appropriate, in no distress, well-hydrated, well nourished and happy, smiling, interactive SKIN: no rash noted HEAD: normocephalic, no abnormality or lesion noted EYES: no injection and visual acuity is grossly normal EARS: hearing grossly normal No apparent nasal bridge collapse, no cartilage swelling, no parotid gland swelling. NOSE: external nose normal without rhinorrhea OROPHARYNX: moist mucus membranes NECK: full ROM, no cervical LNs noted RESPIRATORY: breathing non-labored CHEST: clear lung sounds ABDOMEN: soft and non-tender MUSCULOSKELETAL : nodules on b/l wrist unchanged no apparent joint effusion or synovitis Swollen joints- Swelling left foot MTP- imporved, b/l wrist R>L trace improving, right 2nd toe Tender joints - Swelling left foot MTP- improved , bottom right foot, b/l wrist No tenderness with percussion over long bones-femur/tibia b/l EXTREMITIES: FROM NEUROLOGIC: no obvious deficit Prior Test results discussed with patient. IMPRESSION/DIAGNOSIS: M05.9 Seropositive rheumatoid arthritis (HCC) (primary encounter diagnosis) M65.9 Synovitis E55.9 Vitamin D deficiency Z51.81, Z79.899 Encounter for monitoring leflunomide therapy Z71.89 Encounter for medication review and counseling Z71.2 Encounter to discuss test results Z71.89 Counseling on health promotion and disease prevention F17.200 Smoker Rheumatoid Arthritis Sero-positive, RF, CCP Non-erosive Per Dr. Pandya last note At last visit the patient's Rheumatoid Arthritis appears to be active and worse since last visit and since being off DMARDs. She has not followed up since 2019. She has been off RA medications for 1.5 years. Stopped Arava and xejanz in 2019. She reports only took Xeljanz for the 30 day free supply. She did not follow up on the [employer]ource program, was unclear when asked. With patient's drug addition history, would have to defer from self injectables and needles at home. Due to her problems with transportation and lives far, she is unable to receive IV infusions. She is planning to follow up with local cryogenics engineer closer to home. Until she has her apt, we offered assistance with her RA care and follow up apt. Advised we can only provide 1 month supply and will need f/u apt for recheck and refill for her safety. We also reviewed importance of follow up with her dentist to evaluate for painful tooth and exclude infection. Dental infections can be risk f (more content not included)... [facility] 10-22-2022 History of Present illness Narrative Since your last infusion, have you: Had any major change in your health (including new diagnosis of cancer, COPD or cogestive heart failure? No Been hospitalized? No Had any infections? No Taking antibiotics/antivirals/antifungals for current infection? No Had surgery or do you have upcoming surgery? No Received any live vaccines in the last four weeks? No Worsening GI symptoms/abnormal pain/bloating No In the past 7 days have you had: Fevers/chills/night sweats? No New cough or cold symptoms or sore throat? No Nausea/vomiting/diarrhea? No Unusual swelling of your ankles of feet? No Burning/blood with urination or urinary frequency? No New weakness/numbness/stumbling falls? No New rash or open sores? No Pt complains of chest pressure, discomfort and trouble breathing after Avsola was started. Infusion stopped, Fariba Hill CNP and Dr. Hoyos at bedside. Benadryl 50 mg IVP given and Solu-Medrol 100 mg IVP. Pt reports relief of symptoms. Pt reports that she has not been taking Arava as she ran out a couple weeks ago, Fariba Hill aware. Per Dr. Leos discontinue infusion today, must change to a different treatment. Pt rested until she felt that she was awake enough to drive home, education on new medication given prior to leaving. documented in this encounter [facility] 10-22-2022 Instructions Fariba Hill APRN.ANTHONY - 10/22/2022 9:35 AM EDT -PLEASE NOTE THAT WE REVIEW ALL YOUR TEST RESULTS AT YOUR NEXT FOLLOW UP VISIT WITH YOU. IF ANY ABNORMAL LAB REQUIRES SOONER ATTENTION, WE WILL CONTACT YOU. -If you have signed up on [facility], we will release your test results through [facility]. Plan to start actemra in 2 weeks arava 10mg daily Hold arava infection/ ill/ antibiotics - Vitamin D : RX then over the counter vitamin D3: 2000 international units daily over the counter, with a meal - Please take your vitamin D with dinner or a handful of raw unsalted Almonds for best absorption. Vitamin D is a fat soluble vitamin that requires it be taken with good fat to be absorbed. - Your calcium is sufficient in your diet These include nuts, seeds, legumes/beans, peas, dark green leafy vegetables, plant based milk Additional calcium rich foods listed below - Soaking Almonds overnight in the fridge with drinking water, can help with softening the almonds and improved absorption of the almonds. - A whole plant based diet and healthy lifestyle have been reported to be optimal for bone health and prevention of bone loss Recommendations for healthy lifestyle include: Healthy nutritious diet, anti-inflammatory diet, appropriate exercise, good sleep hygiene, stress management, supplementing vital deficiencies and maintaining healthy weight. with BMI <26. 5 points to remember to improve your health and continue on a healthy path: 1- Optimal nutritious food, such as a Whole Plant Based diet You can watch the movie that features the Whole Plant Based diet, [place] over knives (see video online and visit website). Another movie that was recently released is: Eating You Alive (you can find it at Traity) Dr. Lisa Armando is a [facility] physician who is an expert in Whole Plant based diet. His website is Redux. His research work highlighted the benefits of Whole plant based diet in reversing and preventing heart disease. Consider reading Rip Raullexy: The Engine 2 Diet, cookbook Mrs. Armando (his ) has a cookbook with many recipes on whole plant based food: The Prevent and Reverse Heart Disease cookbook. Dr. Stephen Martinez, has a website and free keisha to help get started on a whole plant based diet, at Pagar.me and the free keisha is 21-Day Vegan Kickstart with meals and recipes to follow. He has multiple free videos and YouTube, for example: https://[employer].[email or web address]/inbUaruQ1c4 , [email or web address]/KbFUShrvb2c Dr. Gordy Farrell has proven starch diet whole plant based and benefit to his Rheumatoid Arthritis patients, his website: Ascentis.Strap Dr. Maira Bertrand is a renowned atmospheric scientist, who has studied and researched the benefits of the Whole plant based diet. He has also researched the adverse effects of animal proteins on health. He presents many of his research findings in his book The [place] study. Dr. Maurilio Xie has completed many research trials proving the reversal of diseases with healthy lifestyle and the Whole Plant based diet. Dr. Maurilio Xie website is: [email or web address] [email or web address].Strap UnDo It a new book by Dr. Maurilio Thomas has dedicated a website and additional time to reviewing all food related articles and research and presents them in his power point presentation and on his website at: nutritionfacts.org Dr. Thomas has multiple free videos and YouTube, for example https://[employer].be/aSgNkhgVtks and https://youtu.be/lXXXygDRyBU. Also, you could find additional information by reading or watching online and YouTube such as: Chef EUBANKS, Cooking With Plants, The Vegan Corner (recipes from an Syrian Head Of Sales And Marketing), and visiting the provided websites for additional information on the whole plant based benefit and cooking recipes. The Whole Foods Plant Based Cooking Show Athletes such as Kelvin Kan, Antonio Guillermo, Shaheen Mooney YouTube Guilt Free Shaheen Mooney YouTube Guilt Free TV and Hua with [employer]. Goodbye Lupus by Kandi Leonard M.D If you suspect you are gluten sensitive or intolerant, consider gluten free diet. Gluten could lead to increased inflammation in the bowels and body in certain patients. Consider organic and non-GMO products when shopping for your food. GMO are genetically modified food that may have adverse impact on our health. 2- Regular Exercise, i.e. beginner yoga Come As You Are: YOGA - Gentle Yoga Anyone Can Do Anywhere www.[employer]/yo ga landon chi, stretching, cardio, gradual strengthening, pool therapy, physical therapy 3- Good Sleep (poor sleep impacts everything, recommended sleep is 7.5 to 8 hrs. a night). Meditation and relaxation techniques have shown to help with improving sleep. 4- Stress management, staying positive, be happy, laugh often (it is a great medicine) Find time to relax and meditate if possible. Following steps 1-3 will help with this as well. In psychiatric disorders, it is important to follow with a professional on the optimal management of depression, anxiety or psychiatric illness 5- Supplementing necessary vitamins and minerals, correcting any deficiencies, i.e. Vitamin D, B12, omega-3 fatty acids etc... Go natural when possible If you are following a Whole plant based diet, it is recommended to take Vitamin B12, sublingual, dissolve under the tongue, take once daily. Vitamin B12 is available over the counter, dose could be 2500 mcg, and can be taken once a week, and if your blood levels are low, you may need to take it once daily or a higher dose. Raw: Garlic, Cilantro, [place] nuts, Pumpkin seeds, [place] seeds and Flax seed powder have been reported to help with certain metal detoxification such as mercury. [place]-3 plant based sources: rachana seeds, flax seed powder, flax milk, walnuts. Turmeric can be found natural, used as the spice powder or the root with your food. This is also available as a capsule. Sweet cherries (raw cleaned or frozen) and Turmeric have anti-inflammatory benefit Start reviewing the Whole Plant Based Diet, by watching [place] movie and then review website. There are many other resources and educational information on the Whole plant based diet on the Internet and documentaries. There are other resources for wellness that you can also benefit from, such as the [facility] Wellness website, [facility] and includes the Mediterranean heart healthy diet and yoga and meditation. Please avoid all dairy products. You could use non-dairy milk such as Flax milk, Cashew milk, [place] milk, Rice milk, Oat milk or Hemp milk, instead. It is very important to avoid all: refined sugars (including high fructose syrup), refined carbohydrates, any artificial sweeteners and artificial preservatives, and soda and processed food. Insure adequate hydration; drink at least 6 to 8 cups of water daily Examples of Smoothies: Every morning you can start your day with a healthy natural anti-inflammatory smoothie, for example, you can blend: fresh or frozen sweet cherries, half a root of turmeric (1 to 2 inches), banana, blue berries, walnuts, few leaves of kale, add flax milk (or almond milk), and enjoy. You could add half an avocado if you like it smoother. If you do not tolerate walnuts, you can use flax seeds, rachana seeds or hemp seeds instead. If you do not like plant based milk, you can use coconut water or plain water instead. Other smoothies, including green smoothies, are also very healthy and highly anti-inflammatory. For example fruits (such as banana or frozen anurag or pineapple) and add significant amount of leafy greens, then add water or coconut water and blend until smooth. You can also add turmeric in this recipe. GENERAL INFORMATION ON BONE HEALTH : -Bone Density testing (DXA scan) as recommended. -Vitamin D supplementation is recommended, unless blood levels are sufficient. Recommended daily dose of 1000 to 2000 IU total a day, or the dose necessary to achieve a Vitamin D 25-OH blood level of >31 and preferably closer to 40-60 ng/mL. Vitamin D pills are available over the counter. -Recommended daily dose of calcium: 1200mg total a day in divided doses. Calcium is usually sufficient in our regular diet, also available in multivitamins. Patients on certain dietary restrictions or those unable to meet their daily calcium by diety alone, may require calcium supplements. For patient with history of calcium kidney stones, Calcium Citrate would be the recommended supplement. It is recommended to avoid caclium carbonate supplement in this case, as these may increase risk of calcium kidney stones. The after visit summary has information on dietary calcium and instructions on reading calcium label and converting the %DV to mg. When you read a food label and you see calcium reported as DV %, add a zero and this will provide you with the approximate mg value of the calcium content in this food. For example, if a glass of almond milk is labeled as 40% calcium DV, then this contains 400 mg of calcium. For additional information, please see references provided. -Regular weight-bearing and muscle-strengthening exercise -Avoidance of tobacco smoking, excessive alcohol intake and excessive caffeine intake. -Fall and fracture precautions -It is recommend to continue regular follow up visits with your dentist every 6 months, and continue with good oral hygiene. Calcium: If your diet is sufficient in Calcium rich food, you will not need calcium supplement. Calcium Citrate is the preferred calcium if you have had kidney stones. Daily recommended calcium dose: 600mg twice a day with meals. Adequate calcium ingestion is essential for maintaining healthy bones. The recommended dose daily intake of calcium varies depending on individual needs but is usually between 1200 and 1500mg daily, preferably around 1200mg a day in divided dose (not all taken at once). This is equivalent to about five 8oz glasses of milk per day. Many foods are rich in calcium and they include: - Plant based, non-dairy, calcium rich products, include nuts, almond milk, beans, lentils - Vegetables and Fruit: bok-gilbert, turnips, broccoli, kale, collards, - Dairy products: milk, cheese, yogurt, ice-cream - Fish products: canned salmon, sardines and shrimp - Cereals and nuts: almonds, sesame seeds, fortified cereals and oatmeal - Other foods: fortified orange-juice, figs, soybeans, other beans and eggs. If you have a low calcium diet and cannot tolerate calcium-rich foods, many supplements are available today. Your pharmacist can help you choose the one which best suits your needs. A few tips on supplements: - They should be easy to swallow - They should dissolve easily in cup of vinegar in < 15 minutes. - Count the ELEMENTAL calcium mgs. E.g. Calcium 499mg may have only 221mg of elemental Calcium. - Calcium citrate is the calcium supplement to take if you have had kidney stones and unable to meet your calcium requirements from food/diet alone. - There is such a variety today that it is best to bring in the bottle to your doctor to show them exactly what you are taking. Lastly too much calcium can be bad for you. Recent studies show extra supplements may increase your risk of kidney stones or cause high calcium levels in some people. You should discuss how much you should be taking with your doctor before starting them. Further Information is available from the following resources: www.nof.org (National Osteoporosis Foundation) http://www.osteo.org/osteolinks.as p National Institutes of Health: 9-099-303-BONE The Calcium Information Center: Non-Dairy, Plant based Milk, contain 1 glass = 450 mg of calcium Exampled include Flax Milk, [place] Milk, Cashew Milk Examples of Food Sources of Calcium from [facility] Food Milligrams (mg) per serving Percent DV* Soymilk, calcium-fortified, 8 ounces 299 30 King juice, calcium-fortified, 6 ounces 261 26 Tofu, firm, made with calcium sulfate, cup* 253 25 Tofu, soft, made with calcium sulfate, cup* 138 14 Eotoy-ti-itv cereal, calcium-fortified, 1 cup 100-1,000 10-100 Turnip greens, fresh, boiled, cup 99 10 Kale, raw, chopped, 1 cup 100 10 Kale, fresh, cooked, 1 cup 94 9 Albanian cabbage, bok gilbert, raw, shredded, 1 cup 74 7 Bread, white, 1 slice 73 7 Tortilla, corn, lwiym-br-wajy/mcgee, one 6 diameter 46 5 Tortilla, flour, yuqlc-om-hqtk/mcgee, one 6 diameter 32 3 Bread, whole-wheat, 1 slice 30 3 Broccoli, raw, cup 21 2 * DV = Daily Value. DVs were developed by the U.S. Food and Drug Administration to help consumers compare the nutrient contents among products within the context of a total daily diet. The U.S. Department of Agriculture s (USDA s) Nutrient Database Web site lists the nutrient content of many foods and provides comprehensive list of foods containing calcium arranged by nutrient content and by food name. *Calcium content varies slightly by fat content; the more fat, the less calcium the food contains. * Calcium content is for tofu processed with a calcium salt. Tofu processed with other salts does not provide significant amounts of calcium. You could acces this information online at: http://ods.od.nih.gov/factsheets/C [facility]-HealthProfessional/ Vitamin D: Vitamin D3= cholecalciferol, available over the counter. Dose recommended 800 to 1000 iu daily with a meal; Certain patients required 6080-8293 iu daily and in patients deficient in Vitamin D, they require higher dosages. Certain patient requires higher dose, depending on their Vit D blood levels. Vitamin D is essential for calcium metabolism. It is really a hormone produced mainly in your skin after exposure to sunlight. Vitamin D helps you absorb calcium from your stomach and kidneys and incorporates it into your bones. Studies show approximately 50% of [place] men and women are vitamin D deficient in the winter. Milder cases of vitamin D are usually asymptomatic so the only way to know you have a problem is to have a blood level checked. More severe cases can cause osteomalacia (a.k.a. rickets) which can result in bone pain, weak bones and several abnormal laboratory tests and also weak muscles (a.k.a. myopathy). When this happens, your bones lose a lot of their calcium stores as the body tries to regulate the calcium required by other tissues. Prolonged deficiency can lead to severe bone disorders and fractures. Unlike calcium, dietary sources of vitamin D are rare, limited to a few fish oils particularly cod-liver oil, other fortified foods and egg yolks. Often supplementation is needed. Many multivitamins contain some vitamin D and vitamin D alone preparations are now available in several forms. The recommended daily intake of vitamin D used to be 400 and 800 international units, however, it is now known that larger amounts are needed, as discussed above. Your doctor can prescribe prescription strength vitamin D for you if necessary, if you have marked deficiency or diseases of the liver or kidney. Supplementation in patients with severe deficiency can stabilize or improve bone mineral density and in frail elderly persons, may reduce their risk of falling. Additional Information is available from: www.nof.org (the national osteoporosis foundation) http://www.[facility].org/art hritis/osteo/info.htm http://ods.od.nih.gov/factsheets/v itamind.asp [facility]: 0-644-216-BONE [facility] Calcium Information Kamiah: Thank you for choosing [facility] for your healthcare. Sincerely, 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 documented in this encounter [facility] 10-22-2022 History of Present illness Narrative FOLLOW UP VISIT-in person PCP: Tino Blake MD [address] [place] [address] Ms. Ludwig is a 37 year old patient here today for follow up of RA Interim History: Doing ok Feels infliximab infusion working well When closer to time to have infusion feels more pains Wrists and right foot Swelling in bilateral wrists Swelling in right foot Has not completed xray feet Pain in left elbow since yesterday Am stiffness - 1-2 hours Worse with weather changes Pain -08/01 Going job interviews- so excited No infections No illness Feeling good today Some fatigue Went to ER 08/14 and 09/13 for toe swelling Completed xray Not taking vit d - does better on RX Infliximab every 5 weeks Arava 10mg daily Had tubal ligation She is cutting down on smoking REVIEW OF SYSTEMS: Review of Systems CONSTITUTION: Negative for: Weight loss or gain, Fever. Chills, Night sweats HEENT: Negative for: Nosebleeds, Mouth sores, Trouble swallowing, Dry mouth RESPIRATORY: Negative for: Cough, Shortness of breath, Pain with breathing and Coughing up blood GASTROINTESTINAL: Negative for: Melena, Diarrhea, Abdominal pain, Heartburn, MUSCULOSKELETAL: Positive for: Arthralgias, Joint swelling and Morning Joint Stiffness Negative for: Muscle weakness NEUROLOGICAL: Positive for: Numbness (numbness in right hand where she has inflammation, none on exam ) SKIN: Negative for: Rashes, Sun sensitive rashes, Skin color changes, Hair loss, Nail changes EYES: Negative for: Eye pain, Eye redness, Visual disturbance, Eye dryness CARDIOVASCULAR: Negative for: Chest pain, Leg swelling, Arrhythmia, Presyncope GENITOURINARY: Negative for: Dysuria, Hematuria, Ulceration HEMATOLOGIC/LYMPHATIC: Negative for: Swollen glands Past Medical Hx, Past Surgical Hx. Social Hx and Family Hx: unchanged ACTIVE PROBLEM LIST Cyclic Citrullinated Peptide (Ccp) Antibody Positive - 12/30/2017 Rheumatoid Factor Positive - 12/30/2017 Seropositive Rheumatoid Arthritis (Hcc) - 12/30/2017 Smokes and Motivated to Quit - 12/30/2017 Comment: Counseled on cessation Vitamin D Deficiency - 04/23/2017 PHYSICAL EXAMINATION: BP 116/79 Pulse 69 Temp 36.1 C (96.9 F) LMP 09/23/2022 (Approximate) SpO2 98% GENERAL: alert and appropriate, in no distress, well-hydrated, well nourished and happy, smiling, interactive SKIN: no rash noted HEAD: normocephalic, no abnormality or lesion noted EYES: no injection and visual acuity is grossly normal EARS: hearing grossly normal No apparent nasal bridge collapse, no cartilage swelling, no parotid gland swelling. NOSE: external nose normal without rhinorrhea OROPHARYNX: moist mucus membranes NECK: full ROM, no cervical LNs noted RESPIRATORY: breathing non-labored CHEST: clear lung sounds ABDOMEN: soft and non-tender MUSCULOSKELETAL : nodules on b/l wrist unchanged no apparent joint effusion or synovitis Swollen joints- Swelling left foot MTP- imporved, b/l wrist R>L trace improving, right 2nd toe Tender joints - Swelling left foot MTP- improved , bottom right foot, b/l wrist No tenderness with percussion over long bones-femur/tibia b/l EXTREMITIES: FROM NEUROLOGIC: no obvious deficit Prior Test results discussed with patient. IMPRESSION/DIAGNOSIS: M05.9 Seropositive rheumatoid arthritis (HCC) (primary encounter diagnosis) M65.9 Synovitis E55.9 Vitamin D deficiency Z51.81, Z79.899 Encounter for monitoring leflunomide therapy Z71.89 Encounter for medication review and counseling Z71.2 Encounter to discuss test results Z71.89 Counseling on health promotion and disease prevention F17.200 Smoker Rheumatoid Arthritis Sero-positive, RF, CCP Non-erosive Per Dr. Pandya last note At last visit the patient's Rheumatoid Arthritis appears to be active and worse since last visit and since being off DMARDs. She has not followed up since 2019. She has been off RA medications for 1.5 years. Stopped Arava and xejanz in 2019. She reports only took Xeljanz for the 30 day free supply. She did not follow up on the [employer] program, was unclear when asked. With patient's drug addition history, would have to defer from self injectables and needles at home. Due to her problems with transportation and lives far, she is unable to receive IV infusions. She is planning to follow up with local cryogenics engineer closer to home. Until she has her apt, we offered assistance with her RA care and follow up apt. Advised we can only provide 1 month supply and will need f/u apt for recheck and refill for her safety. We also reviewed importance of follow up with her dentist to evaluate for painful tooth and exclude infection. Dental infections can be risk for Rheumatoid Arthritis flares as well as concerns for more serious infections. Patient has had multiple unfortunate social and psychologic factors over her lifetime. We are assisting with hospice social worker consult, also to help with adherence to health care and patient's social support, especially that now she is caring for her infant, as a single mother. Rheumatoid arthritis is active at todays visit. Infliximab due today. Arava 10mg daily. Missed last couple weeks ran out of arava. Off pred. Synovitis in multiple joints. Swelling right foot second digit, bilateral wrists. synovitis has improved some. patient requesting podiatry consult. She has not yet completed xrays. Went to ER for right foot pain in July xray at that time showed erosions from inflammation. Uric acid at time normal. Vit d def. Taking vit d. No procedures planned, no s/s of infections and no antibiotics. Smoker, consult to smoking cessation at prior visit . She has been cutting back on smoking since last visit. infliximab 5mg/kg every 5 weeks. Ok for infusion Recheck labs today Called to infusion Patient sob and cp Stopped infusion IV fluids started Vitals stable Solucortef and benadryl given Patient relieved of cp and sob Will stop infliximab adverse reaction Only received 70mg infiximab Med options Rituxan would increase risk for infection and decrease response to vaccines- will defer from this choice at this time Orencia may take 6 months fro response- patients disease has been active Will change to actemra infusion in 2 weeks Patient is high risk for non-compliance and has a history of drug use- will avoid self injections Patient agrees the this plan PLAN/RECOMMENDATIONS: Xray feet Labs today Stop infliximab Start actemra in 2 weeks Continue arava 10mg daily Continue vit d Discussed medications dosage, usage, goals of therapy and side effects. Patient instructed to notify provider of any changes in medical condition. Patient in agreement and in understanding of plan. Follow up: with second infusion Portions of this note have been copied from my previous note and have been updated to reflect today's visit note October 22, 2022 all reflect current medical decision making from date of this visit. I spent a total of 40 minutes on the date of the service which included preparing to see the patient, jjiq-fe-pdzv patient care, completing clinical documentation, obtaining and/or reviewing separately obtained history, performing a medically appropriate examination, counseling and educating the patient/family/caregiver, and ordering medications, tests, or procedures. Fariba Hill APRN.ANTHONY Recommendations to share with referring physician/Primary care physician : Dear Dr. Blake, I had the pleasure of seeing your patient, Mrs Ludwig. I have enclosed a copy of my clinic note with my assessment and recommendations for this patient. Recommendations for your consideration as you deem necessary: -Continuous follow up with Primary care physician for cardiovascular disease prevention, for age appropriate cancer screening and routine health maintenance and wellness, and infection precautions and age appropriate immunization recommended. Thank you for allowing me to participate in the care of your patient. 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 CC: Tino Blake MD documented in this encounter [facility] 10-21-2022 Miscellaneous Notes Spoke with pt; confirmed infusion appt 10/22/22 and appt with Fariba. Denies s/sx of infection or antibiotics or other issues at this time. documented in this encounter [facility] 09-17-2022 Note HNO ID: [id number] Author: Prema Mckinney RN Service: ? Author Type: Registered Nurse Type: Progress Notes Filed: 09/17/2022 9:57 AM Note Text: Since your last infusion, have you: Had any major change in your health (including new diagnosis of cancer, COPD or cogestive heart failure? No Been hospitalized? No Had any infections? No Taking antibiotics/antivirals/antifungals for current infection? No Had surgery or do you have upcoming surgery? No Received any live vaccines in the last four weeks? No Worsening GI symptoms/abnormal pain/bloating No In the past 7 days have you had: Fevers/chills/night sweats? No New cough or cold symptoms or sore throat? No Nausea/vomiting/diarrhea? No Unusual swelling of your ankles of feet? No Burning/blood with urination or urinary frequency? No New weakness/numbness/stumbling falls? No New rash or open sores? No [facility] 09-17-2022 History of Present illness Narrative Since your last infusion, have you: Had any major change in your health (including new diagnosis of cancer, COPD or cogestive heart failure? No Been hospitalized? No Had any infections? No Taking antibiotics/antivirals/antifungals for current infection? No Had surgery or do you have upcoming surgery? No Received any live vaccines in the last four weeks? No Worsening GI symptoms/abnormal pain/bloating No In the past 7 days have you had: Fevers/chills/night sweats? No New cough or cold symptoms or sore throat? No Nausea/vomiting/diarrhea? No Unusual swelling of your ankles of feet? No Burning/blood with urination or urinary frequency? No New weakness/numbness/stumbling falls? No New rash or open sores? No documented in this encounter [facility] 09-16-2022 Miscellaneous Notes Spoke with patient, she will be in for infusion Patient returning call, but PSS told that the nurses are all busy. Patient advised that a message would be placed for the nurses to call the patient back. VM left for pt to call office for below message. documented in this encounter [facility] 09-09-2022 Miscellaneous Notes Tried calling patient 3 times and not able to leave a voice mail. If patient calls then we can offer her a sooner appointment. May offer patient sooner infusion appt since approved (09/02/2022) Time Cycle, Day Action User 10:23 AM Preauthorization Status Changed New Value: Authorized Previous Value: Waiting for Response Rodrigue (Pharmacy Helen)Laverne Changing plan to avsola 7.5mg /kg every 8 weeks Please expedite approval Patient is on for infusion tomorrow In process of updating plan Images from the original note were not included. === PHARMACY TEAM ==== AUTHORIZATION DENIED Denial Reason: Denial upheld on appeal Payor: [place] [employer] Date of Service: 09.01.22 Received Denial Via: Portal [employer] Marketing Technology Specialist Name / Call Ref #: na / na Drug name(s) & HCPCS code(s): Avsola Dx Code: [id number] rheumatoid arthritis Comment: Next step is a State Hearing, see onbased letter. submitted 9 days ago. could take 15 to hear back === PHARMACY TEAM ==== ADDITIONAL INFORMATION NEEDED/REQUESTED Case Submitted: Yes Request Type: Payor Date of Service: TBD Additional Information Needed: Appeal submitted via availity Request from Payor by: N/A Email Sent to: updated te in epic Requested Clinicals/Information Sent: mn letter, and all notes with original submission. Appeal ID is [id number] ETO is 15 days from today Onbased appeal acknowledgement letter. Letter created please submit thanks === PHARMACY TEAM ==== Case Note/ Misc Comment Has appeal been submitted? If not, I can submit an appeal letter if provided via Shared Performance portal for Reference# [id number]. I spoke with peer to peer Will need to appeal [phone] Please ask for expedited appeal Avsola 5mg/kg every 5 weeks This is continued treatment last 3 visits faxed as requested, confirmation received Please fax last 2-3 office notes Attention- Lashanta Include patient name and on cover sheet Peer to peer will call me in 24- 48 hours Images from the original note were not included. === PHARMACY TEAM ==== PEER TO PEER/APPEAL REQUESTED PROVIDER TO COMPLETE P2P or Appeal: P2P Payer: [facility] DOS: 09.01.22 Drug Name(s) & HCPCS/CPTCode(s): Avsola [id number] Dx code(s) submitted: M05.9 Seropositive rheumatoid arthritis Provider: JUAN DANIEL LEOS Peer to Peer/Appeal reason: Timeframe to complete: grace Date sent to provider: 08.05.22 Courtesy page sent (PRN): No documented in this encounter [facility] 08-31-2022 Miscellaneous Notes Patient has been rescheduled as requested Sent RX Prednisone Take 2 tablets by mouth once daily for 14 days, THEN 1 tablet once daily for 14 days. With breakfast. Then stop. No other nsaids.. Per Prior Auth department authorization has not been received for infusion for tomorrow. Requesting that we push infusion out 10 days to allow for authorization. PSS-please call patient and assist with rescheduling. Pt notified and verbalized understanding. She is requesting for some steroids be sent because she is having a lot of pain at this time. documented in this encounter [facility] 06-22-2022 Miscellaneous Notes Call placed to patient to confirm she will be here for tomorrow's infusion and has had no recent infection with no answer. LMOM to call back or send my chart. documented in this encounter [facility] 04-28-2022 Instructions 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 - 04/28/2022 1:04 PM EST -PLEASE NOTE THAT WE REVIEW ALL YOUR TEST RESULTS AT YOUR NEXT FOLLOW UP VISIT WITH YOU. IF ANY ABNORMAL LAB REQUIRES SOONER ATTENTION, WE WILL CONTACT YOU. -If you have signed up on [facility], we will release your test results through [facility]. Increase inflxiamab every 5 weeks 5mg/kg arava 10mg daily Hold arava and inflixamab if infection/ ill/ antibiotics - Vitamin D : RX then over the counter vitamin D3: 2000 international units daily over the counter, with a meal - Please take your vitamin D with dinner or a handful of raw unsalted Almonds for best absorption. Vitamin D is a fat soluble vitamin that requires it be taken with good fat to be absorbed. - Your calcium is sufficient in your diet These include nuts, seeds, legumes/beans, peas, dark green leafy vegetables, plant based milk Additional calcium rich foods listed below - Soaking Almonds overnight in the fridge with drinking water, can help with softening the almonds and improved absorption of the almonds. - A whole plant based diet and healthy lifestyle have been reported to be optimal for bone health and prevention of bone loss Recommendations for healthy lifestyle include: Healthy nutritious diet, anti-inflammatory diet, appropriate exercise, good sleep hygiene, stress management, supplementing vital deficiencies and maintaining healthy weight. with BMI <26. 5 points to remember to improve your health and continue on a healthy path: 1- Optimal nutritious food, such as a Whole Plant Based diet You can watch the movie that features the Whole Plant Based diet, [place] over knives (see video online and visit website). Another movie that was recently released is: Eating You Alive (you can find it at Traity) Dr. Lisa Armando is a [facility] physician who is an expert in Whole Plant based diet. His website is Redux. His research work highlighted the benefits of Whole plant based diet in reversing and preventing heart disease. Consider reading Curly Armando: The Engine 2 Diet, cookbook Mrs. Armando (his ) has a cookbook with many recipes on whole plant based food: The Prevent and Reverse Heart Disease cookbook. Dr. Stephen Martinez, has a website and free keisha to help get started on a whole plant based diet, at Pagar.me and the free keisha is 21-Day Vegan Kickstart with meals and recipes to follow. He has multiple free videos and YouTube, for example: [email or web address]/[email or web address] , [email or web address] Dr. Gordy Farrell has proven starch diet whole plant based and benefit to his Rheumatoid Arthritis patients, his website: Wheelright.Strap Dr. Maira Bertrand is a renowned atmospheric scientist, who has studied and researched the benefits of the Whole plant based diet. He has also researched the adverse effects of animal proteins on health. He presents many of his research findings in his book The [place] study. Dr. Maurilio Xie has completed many research trials proving the reversal of diseases with healthy lifestyle and the Whole Plant based diet. Dr. Maurilio Xie website is: Nuroa.Strap UnDo It a new book by Dr. Maurilio Thomas has dedicated a website and additional time to reviewing all food related articles and research and presents them in his power point presentation and on his website at: nutritionfacts.org Dr. Thomas has multiple free videos and YouTube, for example https://youtu.be/[email or web address] and [email or web address]. Also, you could find additional information by reading or watching online and YouTube such as: Head Of Sales And Marketing AJ, Cooking With Plants, The Vegan Corner (recipes from an Syrian Head Of Sales And Marketing), and visiting the provided websites for additional information on the whole plant based benefit and cooking recipes. The Whole Foods Plant Based Cooking Show Athletes such as Kelvin Kan, Antonio Guillermo, Shaheen Mooney YouTube Guilt Free Shaheen Mooney YouTube Guilt Free TV and Hua with [employer]. Goodbye Lupus by Kandi Leonard M.D If you suspect you are gluten sensitive or intolerant, consider gluten free diet. Gluten could lead to increased inflammation in the bowels and body in certain patients. Consider organic and non-GMO products when shopping for your food. GMO are genetically modified food that may have adverse impact on our health. 2- Regular Exercise, i.e. beginner yoga Come As You Are: YOGA - Gentle Yoga Anyone Can Do Anywhere www.[employer]Strap/yo ga landon chi, stretching, cardio, gradual strengthening, pool therapy, physical therapy 3- Good Sleep (poor sleep impacts everything, recommended sleep is 7.5 to 8 hrs. a night). Meditation and relaxation techniques have shown to help with improving sleep. 4- Stress management, staying positive, be happy, laugh often (it is a great medicine) Find time to relax and meditate if possible. Following steps 1-3 will help with this as well. In psychiatric disorders, it is important to follow with a professional on the optimal management of depression, anxiety or psychiatric illness 5- Supplementing necessary vitamins and minerals, correcting any deficiencies, i.e. Vitamin D, B12, omega-3 fatty acids etc... Go natural when possible If you are following a Whole plant based diet, it is recommended to take Vitamin B12, sublingual, dissolve under the tongue, take once daily. Vitamin B12 is available over the counter, dose could be 2500 mcg, and can be taken once a week, and if your blood levels are low, you may need to take it once daily or a higher dose. Raw: Garlic, Cilantro, [place] nuts, Pumpkin seeds, [place] seeds and Flax seed powder have been reported to help with certain metal detoxification such as mercury. [place]-3 plant based sources: rachana seeds, flax seed powder, flax milk, walnuts. Turmeric can be found natural, used as the spice powder or the root with your food. This is also available as a capsule. Sweet cherries (raw cleaned or frozen) and Turmeric have anti-inflammatory benefit Start reviewing the Whole Plant Based Diet, by watching [place] over myTAG.com movie and then review website. There are many other resources and educational information on the Whole plant based diet on the Internet and documentaries. There are other resources for wellness that you can also benefit from, such as the [facility] Wellness website, [facility] and includes the Mediterranean heart healthy diet and yoga and meditation. Please avoid all dairy products. You could use non-dairy milk such as Flax milk, Cashew milk, [place] milk, Rice milk, Oat milk or Hemp milk, instead. It is very important to avoid all: refined sugars (including high fructose syrup), refined carbohydrates, any artificial sweeteners and artificial preservatives, and soda and processed food. Insure adequate hydration; drink at least 6 to 8 cups of water daily Examples of Smoothies: Every morning you can start your day with a healthy natural anti-inflammatory smoothie, for example, you can blend: fresh or frozen sweet cherries, half a root of turmeric (1 to 2 inches), banana, blue berries, walnuts, few leaves of kale, add flax milk (or almond milk), and enjoy. You could add half an avocado if you like it smoother. If you do not tolerate walnuts, you can use flax seeds, rachana seeds or hemp seeds instead. If you do not like plant based milk, you can use coconut water or plain water instead. Other smoothies, including green smoothies, are also very healthy and highly anti-inflammatory. For example fruits (such as banana or frozen anurag or pineapple) and add significant amount of leafy greens, then add water or coconut water and blend until smooth. You can also add turmeric in this recipe. GENERAL INFORMATION ON BONE HEALTH : -Bone Density testing (DXA scan) as recommended. -Vitamin D supplementation is recommended, unless blood levels are sufficient. Recommended daily dose of 1000 to 2000 IU total a day, or the dose necessary to achieve a Vitamin D 25-OH blood level of >31 and preferably closer to 40-60 ng/mL. Vitamin D pills are available over the counter. -Recommended daily dose of calcium: 1200mg total a day in divided doses. Calcium is usually sufficient in our regular diet, also available in multivitamins. Patients on certain dietary restrictions or those unable to meet their daily calcium by diety alone, may require calcium supplements. For patient with history of calcium kidney stones, Calcium Citrate would be the recommended supplement. It is recommended to avoid caclium carbonate supplement in this case, as these may increase risk of calcium kidney stones. The after visit summary has information on dietary calcium and instructions on reading calcium label and converting the %DV to mg. When you read a food label and you see calcium reported as DV %, add a zero and this will provide you with the approximate mg value of the calcium content in this food. For example, if a glass of almond milk is labeled as 40% calcium DV, then this contains 400 mg of calcium. For additional information, please see references provided. -Regular weight-bearing and muscle-strengthening exercise -Avoidance of tobacco smoking, excessive alcohol intake and excessive caffeine intake. -Fall and fracture precautions -It is recommend to continue regular follow up visits with your dentist every 6 months, and continue with good oral hygiene. Calcium: If your diet is sufficient in Calcium rich food, you will not need calcium supplement. Calcium Citrate is the preferred calcium if you have had kidney stones. Daily recommended calcium dose: 600mg twice a day with meals. Adequate calcium ingestion is essential for maintaining healthy bones. The recommended dose daily intake of calcium varies depending on individual needs but is usually between 1200 and 1500mg daily, preferably around 1200mg a day in divided dose (not all taken at once). This is equivalent to about five 8oz glasses of milk per day. Many foods are rich in calcium and they include: - Plant based, non-dairy, calcium rich products, include nuts, almond milk, beans, lentils - Vegetables and Fruit: bok-gilbert, turnips, broccoli, kale, collards, - Dairy products: milk, cheese, yogurt, ice-cream - Fish products: canned salmon, sardines and shrimp - Cereals and nuts: almonds, sesame seeds, fortified cereals and oatmeal - Other foods: fortified orange-juice, figs, soybeans, other beans and eggs. If you have a low calcium diet and cannot tolerate calcium-rich foods, many supplements are available today. Your pharmacist can help you choose the one which best suits your needs. A few tips on supplements: - They should be easy to swallow - They should dissolve easily in cup of vinegar in < 15 minutes. - Count the ELEMENTAL calcium mgs. E.g. Calcium 499mg may have only 221mg of elemental Calcium. - Calcium citrate is the calcium supplement to take if you have had kidney stones and unable to meet your calcium requirements from food/diet alone. - There is such a variety today that it is best to bring in the bottle to your doctor to show them exactly what you are taking. Lastly too much calcium can be bad for you. Recent studies show extra supplements may increase your risk of kidney stones or cause high calcium levels in some people. You should discuss how much you should be taking with your doctor before starting them. Further Information is available from the following resources: www.nof.org (National Osteoporosis Foundation) http://www.osteo.org/osteolinks.as p National Institutes of Health: 7-288-053-BONE The Calcium Information Center: Non-Dairy, Plant based Milk, contain 1 glass = 450 mg of calcium Exampled include Flax Milk, [place] Milk, Cashew Milk Examples of Food Sources of Calcium from [facility] Food Milligrams (mg) per serving Percent DV* Soymilk, calcium-fortified, 8 ounces 299 30 King juice, calcium-fortified, 6 ounces 261 26 Tofu, firm, made with calcium sulfate, cup* 253 25 Tofu, soft, made with calcium sulfate, cup* 138 14 Qkcye-ul-pah cereal, calcium-fortified, 1 cup 100-1,000 10-100 Turnip greens, fresh, boiled, cup 99 10 Kale, raw, chopped, 1 cup 100 10 Kale, fresh, cooked, 1 cup 94 9 Albanian cabbage, bok gilbert, raw, shredded, 1 cup 74 7 Bread, white, 1 slice 73 7 Tortilla, corn, zscuc-zz-djnd/mcgee, one 6 diameter 46 5 Tortilla, flour, qcgkl-wb-szue/mcgee, one 6 diameter 32 3 Bread, whole-wheat, 1 slice 30 3 Broccoli, raw, cup 21 2 * DV = Daily Value. DVs were developed by the U.S. Food and Drug Administration to help consumers compare the nutrient contents among products within the context of a total daily diet. The U.S. Department of Agriculture s (USDA s) Nutrient Database Web site lists the nutrient content of many foods and provides comprehensive list of foods containing calcium arranged by nutrient content and by food name. *Calcium content varies slightly by fat content; the more fat, the less calcium the food contains. * Calcium content is for tofu processed with a calcium salt. Tofu processed with other salts does not provide significant amounts of calcium. You could acces this information online at: http://ods.od.nih.gov/factsheets/C [facility]/ Vitamin D: Vitamin D3= cholecalciferol, available over the counter. Dose recommended 800 to 1000 iu daily with a meal; Certain patients required 5644-8942 iu daily and in patients deficient in Vitamin D, they require higher dosages. Certain patient requires higher dose, depending on their Vit D blood levels. Vitamin D is essential for calcium metabolism. It is really a hormone produced mainly in your skin after exposure to sunlight. Vitamin D helps you absorb calcium from your stomach and kidneys and incorporates it into your bones. Studies show approximately 50% of [place] men and women are vitamin D deficient in the winter. Milder cases of vitamin D are usually asymptomatic so the only way to know you have a problem is to have a blood level checked. More severe cases can cause osteomalacia (a.k.a. rickets) which can result in bone pain, weak bones and several abnormal laboratory tests and also weak muscles (a.k.a. myopathy). When this happens, your bones lose a lot of their calcium stores as the body tries to regulate the calcium required by other tissues. Prolonged deficiency can lead to severe bone disorders and fractures. Unlike calcium, dietary sources of vitamin D are rare, limited to a few fish oils particularly cod-liver oil, other fortified foods and egg yolks. Often supplementation is needed. Many multivitamins contain some vitamin D and vitamin D alone preparations are now available in several forms. The recommended daily intake of vitamin D used to be 400 and 800 international units, however, it is now known that larger amounts are needed, as discussed above. Your doctor can prescribe prescription strength vitamin D for you if necessary, if you have marked deficiency or diseases of the liver or kidney. Supplementation in patients with severe deficiency can stabilize or improve bone mineral density and in frail elderly persons, may reduce their risk of falling. Additional Information is available from: www.nof.org (the national osteoporosis foundation) http://www.[facility].org/art hritis/osteo/info.htm http://ods.od.nih.gov/factsheets/v itamind.asp National Institutes of Health: 3-284-026-BONE The Calcium Information Center: Thank you for choosing [facility] for your healthcare. Sincerely, Fariba Hill APRN.ANTHONY documented in this encounter [facility] 04-28-2022 History of Present illness Narrative FOLLOW UP VISIT-telephone PCP: Tino Blake MD [address] [place] [address] Ms. Ludwig is a 37 year old patient here today for follow up of RA Interim History: Telephone call Recheck Swelling has improved in wrist and feet Wrist pain/ swelling L>R Pain 08/31 Hurting because of the rain Feet are doing well This infusion scheduled for 5 weeks Using aspercreme Will give low dose pred 5mg daily for 2 weeks Am stiffness No procedures planned No infections No illness Arava 10mg daily Had tubal ligation She is cutting down on smoking REVIEW OF SYSTEMS: Review of Systems CONSTITUTION: Negative for: Weight loss or gain, Fever. Chills, Night sweats HEENT: Negative for: Nosebleeds, Mouth sores, Trouble swallowing, Dry mouth RESPIRATORY: Negative for: Cough, Shortness of breath, Pain with breathing and Coughing up blood GASTROINTESTINAL: Negative for: Melena, Diarrhea, Abdominal pain, Heartburn, MUSCULOSKELETAL: Positive for: Arthralgias, Joint swelling and Morning Joint Stiffness Negative for: Muscle weakness NEUROLOGICAL: Positive for: Numbness (numbness in right hand where she has inflammation, none on exam ) SKIN: Negative for: Rashes, Sun sensitive rashes, Skin color changes, Hair loss, Nail changes EYES: Negative for: Eye pain, Eye redness, Visual disturbance, Eye dryness CARDIOVASCULAR: Negative for: Chest pain, Leg swelling, Arrhythmia, Presyncope GENITOURINARY: Negative for: Dysuria, Hematuria, Ulceration HEMATOLOGIC/LYMPHATIC: Negative for: Swollen glands Past Medical Hx, Past Surgical Hx. Social Hx and Family Hx: unchanged ACTIVE PROBLEM LIST Cyclic Citrullinated Peptide (Ccp) Antibody Positive - 12/30/2017 Rheumatoid Factor Positive - 12/30/2017 Seropositive Rheumatoid Arthritis (Hcc) - 12/30/2017 Smokes and Motivated to Quit - 12/30/2017 Comment: Counseled on cessation Vitamin D Deficiency - 04/23/2017 PHYSICAL EXAMINATION: Telephone visit Prior Test results discussed with patient. IMPRESSION/DIAGNOSIS: M05.9 Seropositive rheumatoid arthritis (HCC) (primary encounter diagnosis) Rheumatoid Arthritis Sero-positive, RF, CCP Non-erosive Per Dr. Pandya last note At last visit the patient's Rheumatoid Arthritis appears to be active and worse since last visit and since being off DMARDs. She has not followed up since 2019. She has been off RA medications for 1.5 years. Stopped Arava and xejanz in 2019. She reports only took Xeljanz for the 30 day free supply. She did not follow up on the Xelsource program, was unclear when asked. With patient's drug addition history, would have to defer from self injectables and needles at home. Due to her problems with transportation and lives far, she is unable to receive IV infusions. She is planning to follow up with local cryogenics engineer closer to home. Until she has her apt, we offered assistance with her RA care and follow up apt. Advised we can only provide 1 month supply and will need f/u apt for recheck and refill for her safety. We also reviewed importance of follow up with her dentist to evaluate for painful tooth and exclude infection. Dental infections can be risk for Rheumatoid Arthritis flares as well as concerns for more serious infections. Patient has had multiple unfortunate social and psychologic factors over her lifetime. We are assisting with hospice social worker consult, also to help with adherence to health care and patient's social support, especially that now she is caring for her infant, as a single mother. Rheumatoid arthritis is active at todays visit. Infliximab infusions increased to every 5 weeks due to flares in between doses Arava 10mg daily. Interim flares flaring 2 weeks prior to next visit. Pain and swelling in wrists. Wrist and feet swelling improved after lat infusion. Low vit d started vit d RX. No procedures planned, no s/s of infections and no antibiotics. Smoker, consult to smoking cessation. She has been cutting back on smoking since last visit. To gain better disease control will increase inflixamab 5mg/kg every 5 weeks. Will give low dose pred 5mg for 2 weeks only. Patient agrees the this plan PLAN/RECOMMENDATIONS: [facility] on 04/28/22 predniSONE (DELTASONE) 5 mg tablet *Discontinued* predniSONE (DELTASONE) 5 mg tablet Pred 5mg daily for 2 weeks Infliximab next time increase dose to 5mg/ kg-every 5 weeks to decrease disease activity Discussed medications dosage, usage, goals of therapy and side effects. Patient instructed to notify provider of any changes in medical condition. Patient in agreement and in understanding of plan. Follow up: 3 months Portions of this note have been copied from my previous note and have been updated to reflect today's visit note April 28, 2022 all reflect current medical decision making from date of this visit. I spent a total of 20 minutes on the date of the service which included preparing to see the patient, completing clinical documentation, obtaining and/or reviewing separately obtained history, counseling and educating the patient/family/caregiver, and ordering medications, tests, or procedures. Fariba Hill APRN.ANTHONY Recommendations to share with referring physician/Primary care physician : Dear Dr. Blake, I had the pleasure of seeing your patient, Mrs Ludwig. I have enclosed a copy of my clinic note with my assessment and recommendations for this patient. Recommendations for your consideration as you deem necessary: -Continuous follow up with Primary care physician for cardiovascular disease prevention, for age appropriate cancer screening and routine health maintenance and wellness, and infection precautions and age appropriate immunization recommended. Thank you for allowing me to participate in the care of your patient. 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 CC: Tino Blake MD documented in this encounter [facility] 04-16-2022 Miscellaneous Notes sent via BlogRadio rx resent to local pharmacy Pharmacy Information Pharmacy Address Telephone [facility]/pharmacy #[id number] [address] [place] [address] Unable to reach pt, no ans, vm full will send via BlogRadio -attempted to call pt and VM full -try again or send mychart Please call patient -Please advise patient of low vitamin D blood levels. Patients with Vitamin D deficiency may experience increased bone and body pains, fatigue, increased risk for fractures among other health problems. It is important to correct the deficiency. -I recommend replacement therapy with Vitamin D 50,000 as prescribed: The following approved medication requests have been transmitted electronically. Requested Prescriptions Signed Prescriptions Disp Refills ergocalciferol 50,000 unit capsule (VITAMIN D2, DRISDOL) 8 capsule 1 Sig: Take 1 capsule by mouth two times a week. (FOR EXAMPLE ONE CAPSULE ON WEDNESDAY AND ONE ON WEDNESDAY) FOR A TOTAL OF 8 WEEKS, WITH A MEAL Authorizing Provider: FARIBA HILL -Please inform pt. that orders were entered for f/u bld. tests in 8 wks (orders in [facility]) -Once patient has completed the 8 wk treatment, it is recommended to continue on maintenance therapy to keep the Vit D from dropping again. I recommend patient takes over the counter, Vitamin D3: 2000 international units once daily with a meal. Thank you kindly, 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 documented in this encounter [facility] 04-14-2022 History of Present illness Narrative Since your last infusion, have you: Had any major change in your health (including new diagnosis of cancer, COPD or cogestive heart failure? No Been hospitalized? No Had any infections? No Taking antibiotics/antivirals/antifungals for current infection? No Had surgery or do you have upcoming surgery? No Received any live vaccines in the last four weeks? No Worsening GI symptoms/abnormal pain/bloating No In the past 7 days have you had: Fevers/chills/night sweats? No New cough or cold symptoms or sore throat? No Nausea/vomiting/diarrhea? No Unusual swelling of your ankles of feet? No Burning/blood with urination or urinary frequency? No New weakness/numbness/stumbling falls? No New rash or open sores? No documented in this encounter [facility] 04-14-2022 Instructions 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 - 04/14/2022 10:44 AM EST -PLEASE NOTE THAT WE REVIEW ALL YOUR TEST RESULTS AT YOUR NEXT FOLLOW UP VISIT WITH YOU. IF ANY ABNORMAL LAB REQUIRES SOONER ATTENTION, WE WILL CONTACT YOU. -If you have signed up on Yik Yakh[employer], we will release your test results through [facility]. Increase inflxiamab every 5 weeks 5mg/kg arava 10mg daily Hold arava and inflixamab if infection/ ill/ antibiotics - Vitamin D : vitamin D3: 2000 international units daily over the counter, with a meal - Please take your vitamin D with dinner or a handful of raw unsalted Almonds for best absorption. Vitamin D is a fat soluble vitamin that requires it be taken with good fat to be absorbed. - Your calcium is sufficient in your diet These include nuts, seeds, legumes/beans, peas, dark green leafy vegetables, plant based milk Additional calcium rich foods listed below - Soaking Almonds overnight in the fridge with drinking water, can help with softening the almonds and improved absorption of the almonds. - A whole plant based diet and healthy lifestyle have been reported to be optimal for bone health and prevention of bone loss Recommendations for healthy lifestyle include: Healthy nutritious diet, anti-inflammatory diet, appropriate exercise, good sleep hygiene, stress management, supplementing vital deficiencies and maintaining healthy weight. with BMI <26. 5 points to remember to improve your health and continue on a healthy path: 1- Optimal nutritious food, such as a Whole Plant Based diet You can watch the movie that features the Whole Plant Based diet, [place] over knives (see video online and visit website). Another movie that was recently released is: Eating You Alive (you can find it at Traity) Dr. Lisa Armando is a [facility] physician who is an expert in Whole Plant based diet. His website is Redux. His research work highlighted the benefits of Whole plant based diet in reversing and preventing heart disease. Consider reading Rip Prabha: The Engine 2 Diet, cookbook Mrs. Armando (his ) has a cookbook with many recipes on whole plant based food: The Prevent and Reverse Heart Disease cookbook. Dr. Stephen Martinez, has a website and free keisha to help get started on a whole plant based diet, at [employer]Scan.[employer] and the free keisha is 21-Day Vegan Kickstart with meals and recipes to follow. He has multiple free videos and YouTube, for example: [email or web address] , [email or web address] Dr. Gordy Farrell has proven starch diet whole plant based and benefit to his Rheumatoid Arthritis patients, his website: drAscentis.Strap Dr. Maira Bertrand is a renowned atmospheric scientist, who has studied and researched the benefits of the Whole plant based diet. He has also researched the adverse effects of animal proteins on health. He presents many of his research findings in his book The [place] study. Dr. Maurilio Xie has completed many research trials proving the reversal of diseases with healthy lifestyle and the Whole Plant based diet. Dr. Maurilio Xie website is: mignonNatrix Separations.Strap UnDo It a new book by Dr. Maurilio Thomas has dedicated a website and additional time to reviewing all food related articles and research and presents them in his power point presentation and on his website at: nutritionfacts.org Dr. Thomas has multiple free videos and YouTube, for example [email or web address].[email or web address] and [email or web address]. Also, you could find additional information by reading or watching online and YouTube such as: Head Of Sales And Marketing AJ, Cooking With Plants, The Vegan Corner (recipes from an Syrian Head Of Sales And Marketing), and visiting the provided websites for additional information on the whole plant based benefit and cooking recipes. The Whole Foods Plant Based Cooking Show Athletes such as Kelvin Kan, Antonio Guillermo, Shaheen Mooney YouTube Guilt Free Shaheen Mooney YouTube Guilt Free TV and Hua with [employer]. Goodbye Lupus by Kandi Leonard M.D If you suspect you are gluten sensitive or intolerant, consider gluten free diet. Gluten could lead to increased inflammation in the bowels and body in certain patients. Consider organic and non-GMO products when shopping for your food. GMO are genetically modified food that may have adverse impact on our health. 2- Regular Exercise, i.e. beginner yoga Come As You Are: YOGA - Gentle Yoga Anyone Can Do Anywhere www.[facility].Strap/yo ga landon chi, stretching, cardio, gradual strengthening, pool therapy, physical therapy 3- Good Sleep (poor sleep impacts everything, recommended sleep is 7.5 to 8 hrs. a night). Meditation and relaxation techniques have shown to help with improving sleep. 4- Stress management, staying positive, be happy, laugh often (it is a great medicine) Find time to relax and meditate if possible. Following steps 1-3 will help with this as well. In psychiatric disorders, it is important to follow with a professional on the optimal management of depression, anxiety or psychiatric illness 5- Supplementing necessary vitamins and minerals, correcting any deficiencies, i.e. Vitamin D, B12, omega-3 fatty acids etc... Go natural when possible If you are following a Whole plant based diet, it is recommended to take Vitamin B12, sublingual, dissolve under the tongue, take once daily. Vitamin B12 is available over the counter, dose could be 2500 mcg, and can be taken once a week, and if your blood levels are low, you may need to take it once daily or a higher dose. Raw: Garlic, Cilantro, [place] nuts, Pumpkin seeds, [place] seeds and Flax seed powder have been reported to help with certain metal detoxification such as mercury. [place]-3 plant based sources: rachaan seeds, flax seed powder, flax milk, walnuts. Turmeric can be found natural, used as the spice powder or the root with your food. This is also available as a capsule. Sweet cherries (raw cleaned or frozen) and Turmeric have anti-inflammatory benefit Start reviewing the Whole Plant Based Diet, by watching [place] over myTAG.com movie and then review website. There are many other resources and educational information on the Whole plant based diet on the Internet and documentaries. There are other resources for wellness that you can also benefit from, such as the [facility] Wellness website, [facility]org and includes the Mediterranean heart healthy diet and yoga and meditation. Please avoid all dairy products. You could use non-dairy milk such as Flax milk, Cashew milk, [place] milk, Rice milk, Oat milk or Hemp milk, instead. It is very important to avoid all: refined sugars (including high fructose syrup), refined carbohydrates, any artificial sweeteners and artificial preservatives, and soda and processed food. Insure adequate hydration; drink at least 6 to 8 cups of water daily Examples of Smoothies: Every morning you can start your day with a healthy natural anti-inflammatory smoothie, for example, you can blend: fresh or frozen sweet cherries, half a root of turmeric (1 to 2 inches), banana, blue berries, walnuts, few leaves of kale, add flax milk (or almond milk), and enjoy. You could add half an avocado if you like it smoother. If you do not tolerate walnuts, you can use flax seeds, rachana seeds or hemp seeds instead. If you do not like plant based milk, you can use coconut water or plain water instead. Other smoothies, including green smoothies, are also very healthy and highly anti-inflammatory. For example fruits (such as banana or frozen anurag or pineapple) and add significant amount of leafy greens, then add water or coconut water and blend until smooth. You can also add turmeric in this recipe. GENERAL INFORMATION ON BONE HEALTH : -Bone Density testing (DXA scan) as recommended. -Vitamin D supplementation is recommended, unless blood levels are sufficient. Recommended daily dose of 1000 to 2000 IU total a day, or the dose necessary to achieve a Vitamin D 25-OH blood level of >31 and preferably closer to 40-60 ng/mL. Vitamin D pills are available over the counter. -Recommended daily dose of calcium: 1200mg total a day in divided doses. Calcium is usually sufficient in our regular diet, also available in multivitamins. Patients on certain dietary restrictions or those unable to meet their daily calcium by diety alone, may require calcium supplements. For patient with history of calcium kidney stones, Calcium Citrate would be the recommended supplement. It is recommended to avoid caclium carbonate supplement in this case, as these may increase risk of calcium kidney stones. The after visit summary has information on dietary calcium and instructions on reading calcium label and converting the %DV to mg. When you read a food label and you see calcium reported as DV %, add a zero and this will provide you with the approximate mg value of the calcium content in this food. For example, if a glass of almond milk is labeled as 40% calcium DV, then this contains 400 mg of calcium. For additional information, please see references provided. -Regular weight-bearing and muscle-strengthening exercise -Avoidance of tobacco smoking, excessive alcohol intake and excessive caffeine intake. -Fall and fracture precautions -It is recommend to continue regular follow up visits with your dentist every 6 months, and continue with good oral hygiene. Calcium: If your diet is sufficient in Calcium rich food, you will not need calcium supplement. Calcium Citrate is the preferred calcium if you have had kidney stones. Daily recommended calcium dose: 600mg twice a day with meals. Adequate calcium ingestion is essential for maintaining healthy bones. The recommended dose daily intake of calcium varies depending on individual needs but is usually between 1200 and 1500mg daily, preferably around 1200mg a day in divided dose (not all taken at once). This is equivalent to about five 8oz glasses of milk per day. Many foods are rich in calcium and they include: - Plant based, non-dairy, calcium rich products, include nuts, almond milk, beans, lentils - Vegetables and Fruit: bok-gilbert, turnips, broccoli, kale, collards, - Dairy products: milk, cheese, yogurt, ice-cream - Fish products: canned salmon, sardines and shrimp - Cereals and nuts: almonds, sesame seeds, fortified cereals and oatmeal - Other foods: fortified orange-juice, figs, soybeans, other beans and eggs. If you have a low calcium diet and cannot tolerate calcium-rich foods, many supplements are available today. Your pharmacist can help you choose the one which best suits your needs. A few tips on supplements: - They should be easy to swallow - They should dissolve easily in cup of vinegar in < 15 minutes. - Count the ELEMENTAL calcium mgs. E.g. Calcium 499mg may have only 221mg of elemental Calcium. - Calcium citrate is the calcium supplement to take if you have had kidney stones and unable to meet your calcium requirements from food/diet alone. - There is such a variety today that it is best to bring in the bottle to your doctor to show them exactly what you are taking. Lastly too much calcium can be bad for you. Recent studies show extra supplements may increase your risk of kidney stones or cause high calcium levels in some people. You should discuss how much you should be taking with your doctor before starting them. Further Information is available from the following resources: www.nof.org (National Osteoporosis Foundation) http://www.osteo.org/osteolinks.as p [place] [employer] of [facility]: 1-218-704-BONE The Calcium Information Kamiah: Non-Dairy, Plant based Milk, contain 1 glass = 450 mg of calcium Exampled include Flax Milk, [place] Milk, Cashew Milk Examples of Food Sources of Calcium from [facility] Food Milligrams (mg) per serving Percent DV* Soymilk, calcium-fortified, 8 ounces 299 30 King juice, calcium-fortified, 6 ounces 261 26 Tofu, firm, made with calcium sulfate, cup* 253 25 Tofu, soft, made with calcium sulfate, cup* 138 14 Hjyah-al-iwx cereal, calcium-fortified, 1 cup 100-1,000 10-100 Turnip greens, fresh, boiled, cup 99 10 Kale, raw, chopped, 1 cup 100 10 Kale, fresh, cooked, 1 cup 94 9 Albanian cabbage, bok gilbert, raw, shredded, 1 cup 74 7 Bread, white, 1 slice 73 7 Tortilla, corn, obcoy-xy-qrpf/mcgee, one 6 diameter 46 5 Tortilla, flour, grddv-rs-uwdx/mcgee, one 6 diameter 32 3 Bread, whole-wheat, 1 slice 30 3 Broccoli, raw, cup 21 2 * DV = Daily Value. DVs were developed by the U.S. Food and Drug Administration to help consumers compare the nutrient contents among products within the context of a total daily diet. The U.S. Department of Agriculture s (USDA s) Nutrient Database Web site lists the nutrient content of many foods and provides comprehensive list of foods containing calcium arranged by nutrient content and by food name. *Calcium content varies slightly by fat content; the more fat, the less calcium the food contains. * Calcium content is for tofu processed with a calcium salt. Tofu processed with other salts does not provide significant amounts of calcium. You could acces this information online at: http://ods.od.nih.gov/factsheets/C alcium-HealthProfessional/ Vitamin D: Vitamin D3= cholecalciferol, available over the counter. Dose recommended 800 to 1000 iu daily with a meal; Certain patients required 6435-6559 iu daily and in patients deficient in Vitamin D, they require higher dosages. Certain patient requires higher dose, depending on their Vit D blood levels. Vitamin D is essential for calcium metabolism. It is really a hormone produced mainly in your skin after exposure to sunlight. Vitamin D helps you absorb calcium from your stomach and kidneys and incorporates it into your bones. Studies show approximately 50% of [place] men and women are vitamin D deficient in the winter. Milder cases of vitamin D are usually asymptomatic so the only way to know you have a problem is to have a blood level checked. More severe cases can cause osteomalacia (a.k.a. rickets) which can result in bone pain, weak bones and several abnormal laboratory tests and also weak muscles (a.k.a. myopathy). When this happens, your bones lose a lot of their calcium stores as the body tries to regulate the calcium required by other tissues. Prolonged deficiency can lead to severe bone disorders and fractures. Unlike calcium, dietary sources of vitamin D are rare, limited to a few fish oils particularly cod-liver oil, other fortified foods and egg yolks. Often supplementation is needed. Many multivitamins contain some vitamin D and vitamin D alone preparations are now available in several forms. The recommended daily intake of vitamin D used to be 400 and 800 international units, however, it is now known that larger amounts are needed, as discussed above. Your doctor can prescribe prescription strength vitamin D for you if necessary, if you have marked deficiency or diseases of the liver or kidney. Supplementation in patients with severe deficiency can stabilize or improve bone mineral density and in frail elderly persons, may reduce their risk of falling. Additional Information is available from: www.nof.org (the national osteoporosis foundation) http://www.[facility].org/art hritis/osteo/info.htm http://ods.od.nih.gov/factsheets/v itamind.asp National Institutes of Health: 7-473-573-BONE [facility] Calcium Information Kamiah: Thank you for choosing [facility] for your healthcare. Sincerely, 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 documented in this encounter [facility] 04-14-2022 History of Present illness Narrative FOLLOW UP VISIT-in person PCP: Tino Blake MD [address] [place] [address] Ms. Ludwig is a 37 year old patient here today for follow up of RA Interim History: Swelling- right wrist 1 week Had overdone it cleaning Foot pain Fell asleep in bathtub 4 hours Never had xrays Left MTP swelling - improving some Pain- 10/01 Does not take anything Am stiffness Here for infusion No procedures planned Starting to feel worse 2 weeks prior to infusion Will increase to every 5 weeks No infections No illness More fatigue Not taking vit d - does better on RX Arava 10mg daily Had tubal ligation She is cutting down on smoking REVIEW OF SYSTEMS: Review of Systems CONSTITUTION: Negative for: Weight loss or gain, Fever. Chills, Night sweats HEENT: Negative for: Nosebleeds, Mouth sores, Trouble swallowing, Dry mouth RESPIRATORY: Negative for: Cough, Shortness of breath, Pain with breathing and Coughing up blood GASTROINTESTINAL: Negative for: Melena, Diarrhea, Abdominal pain, Heartburn, MUSCULOSKELETAL: Positive for: Arthralgias, Joint swelling and Morning Joint Stiffness Negative for: Muscle weakness NEUROLOGICAL: Positive for: Numbness (numbness in right hand where she has inflammation, none on exam ) SKIN: Negative for: Rashes, Sun sensitive rashes, Skin color changes, Hair loss, Nail changes EYES: Negative for: Eye pain, Eye redness, Visual disturbance, Eye dryness CARDIOVASCULAR: Negative for: Chest pain, Leg swelling, Arrhythmia, Presyncope GENITOURINARY: Negative for: Dysuria, Hematuria, Ulceration HEMATOLOGIC/LYMPHATIC: Negative for: Swollen glands Past Medical Hx, Past Surgical Hx. Social Hx and Family Hx: unchanged ACTIVE PROBLEM LIST Cyclic Citrullinated Peptide (Ccp) Antibody Positive - 12/30/2017 Rheumatoid Factor Positive - 12/30/2017 Seropositive Rheumatoid Arthritis (Hcc) - 12/30/2017 Smokes and Motivated to Quit - 12/30/2017 Comment: Counseled on cessation Vitamin D Deficiency - 04/23/2017 PHYSICAL EXAMINATION: BP 126/74 Pulse 72 Wt 66.2 kg (146 lb) LMP 04/07/2022 (Approximate) BMI 22.87 kg/m GENERAL: alert and appropriate, in no distress, well-hydrated, well nourished and happy, smiling, interactive SKIN: no rash noted HEAD: normocephalic, no abnormality or lesion noted EYES: no injection and visual acuity is grossly normal EARS: hearing grossly normal No apparent nasal bridge collapse, no cartilage swelling, no parotid gland swelling. NOSE: external nose normal without rhinorrhea OROPHARYNX: moist mucus membranes NECK: full ROM, no cervical LNs noted RESPIRATORY: breathing non-labored CHEST: clear lung sounds ABDOMEN: soft and non-tender MUSCULOSKELETAL : nodules on b/l wrist unchanged no apparent joint effusion or synovitis Swollen joints- Swelling left foot MTP, right elbow, b/l wrist R>L Tender joints - Swelling left foot MTP, right elbow, b/l wrist No tenderness with percussion over long bones-femur/tibia b/l EXTREMITIES: FROM NEUROLOGIC: no obvious deficit Prior Test results discussed with patient. IMPRESSION/DIAGNOSIS: M05.9 Seropositive rheumatoid arthritis (HCC) (primary encounter diagnosis) E55.9 Vitamin D deficiency F17.200 Smoker M79.672 Pain in left foot Z71.89 Encounter for medication review and counseling Z71.2 Encounter to discuss test results Z51.81, Z79.899 Encounter for monitoring leflunomide therapy Z71.89 Counseling on health promotion and disease prevention Z79.899 High risk medication use Rheumatoid Arthritis Sero-positive, RF, CCP Non-erosive Per Dr. Pandya last note At last visit the patient's Rheumatoid Arthritis appears to be active and worse since last visit and since being off DMARDs. She has not followed up since 2019. She has been off RA medications for 1.5 years. Stopped Arava and xejanz in 2019. She reports only took Xeljanz for the 30 day free supply. She did not follow up on the [employer]els[employer] program, was unclear when asked. With patient's drug addition history, would have to defer from self injectables and needles at home. Due to her problems with transportation and lives far, she is unable to receive IV infusions. She is planning to follow up with local cryogenics engineer closer to home. Until she has her apt, we offered assistance with her RA care and follow up apt. Advised we can only provide 1 month supply and will need f/u apt for recheck and refill for her safety. We also reviewed importance of follow up with her dentist to evaluate for painful tooth and exclude infection. Dental infections can be risk for Rheumatoid Arthritis flares as well as concerns for more serious infections. Patient has had multiple unfortunate social and psychologic factors over her lifetime. We are assisting with hospice social worker consult, also to help with adherence to health care and patient's social support, especially that now she is caring for her , as a single mother. Rheumatoid arthritis is active at todays visit. Infliximab due today. Arava 10mg daily. Interim flares flaring 2 weeks prior to next visit. Synovitis in multiple joints. Swelling MTP left foot, and right foot pain, synovitis has improved some. patient requesting podiatry consult. She has not yet completed xrays. Vit d def, vit d recheck today. No procedures planned, no s/s of infections and no antibiotics. Smoker, consult to smoking cessation. She has been cutting back on smoking since last visit. To gain better disease control will increase inflixamab 5mg/kg every 5 weeks. Patient agrees the this plan PLAN/RECOMMENDATIONS: Office Visit on 04/14/22 VITAMIN D 25 HYDROXY C-REACTIVE PROTEIN (CRP) *Canceled* COMP METABOLIC PANEL *Canceled* CBC + DIFF *Canceled* SED RATE WESTERGREN *Canceled* CBC + DIFF COMP METABOLIC PANEL C-REACTIVE PROTEIN (CRP) SED RATE WESTERGREN gabapentin (NEURONTIN) 600 mg tablet PARoxetine (PAXIL) 30 mg tablet Atomoxetine 80 mg capsule Xrays today Labs today and with next infusion Infliximab next time increase dose to 5mg/ kg-every 5 weeks to decrease disease activity Discussed medications dosage, usage, goals of therapy and side effects. Patient instructed to notify provider of any changes in medical condition. Patient in agreement and in understanding of plan. Follow up: 2 weeks and 10 weeks for medication monitoring I spent a total of 40 minutes on the date of the service which included preparing to see the patient, [id number] patient care, completing clinical documentation, obtaining and/or reviewing separately obtained history, performing a medically appropriate examination, counseling and educating the patient/family/caregiver, and ordering medications, tests, or procedures. Portions of this note have been copied from my previous note and have been updated to reflect today's visit note April 13, 2022 all reflect current medical decision making from date of this visit. Fariba Hill APRN.ANTHONY Recommendations to share with referring physician/Primary care physician : Dear Dr. Blake, I had the pleasure of seeing your patient, Mrs Ludwig. I have enclosed a copy of my clinic note with my assessment and recommendations for this patient. Recommendations for your consideration as you deem necessary: -Continuous follow up with Primary care physician for cardiovascular disease prevention, for age appropriate cancer screening and routine health maintenance and wellness, and infection precautions and age appropriate immunization recommended. Thank you for allowing me to participate in the care of your patient. Fariba Hill APRN.ANTHONY CC: Tino Blake MD documented in this encounter [facility] 03-09-2022 Miscellaneous Notes Most recent Rheumatology visit: 01/05/2022 (with Fariba Hill) Recent Office Visits - This Specialty 01/05/2022 Seropositive rheumatoid arthritis (HCC) Rheumatology Fariba Hill APRN.ANTHONY 10/29/2021 Seropositive rheumatoid arthritis (HCC) Rheumatology Fariba Hill APRN.ANTHONY 07/23/2021 Seropositive rheumatoid arthritis (HCC) Rheumatology Fariba Hill APRN.ANTHONY Upcoming Rheumatology Appointments - Next 365 Days Visit Type Date Time Department [facility] MED[facility] 04/14/2022 10:30 AM [facility] CBC: CBC Latest Ref Rng & Units 11/13/2021 02/24/2022 WBC 3.70 - 11.00 k/uL 9.44 6.10 HEMOGLOBIN 11.5 - 15.5 g/dL 13.2 12.3 HEMATOCRIT 36.0 - 46.0 % 39.4 37.1 PLATELETS 150 - 400 k/uL 281 224 ABS NEUT (ANC) 1.45 - 7.50 k/uL 4.66 2.23 ABS LYMPH 1.00 - 4.00 k/uL 3.60 3.03 Vitamin D: Vitamin D Latest Ref Rng & Units 11/13/2021 01/05/2022 VITAMIN D 25 HYDROXY 31.0 - 80.0 ng/mL 18.2(L) 50.7 LFT: CMP Latest Ref Rng & Units 11/13/2021 02/24/2022 SODIUM 136 - 144 mmol/L 138 136 POTASSIUM 3.7 - 5.1 mmol/L 3.6(L) 3.7 CHLORIDE 97 - 105 mmol/L 102 102 CO2 22 - 30 mmol/L 23 22 GLUCOSE 74 - 99 mg/dL 87 87 BUN 7 - 21 mg/dL 9 7 CREATININE 0.58 - 0.96 mg/dL 0.46(L) 0.46(L) CALCIUM, TOTAL 8.5 - 10.2 mg/dL 9.2 9.0 AST 13 - 35 U/L 23 27 ALT 7 - 38 U/L 28 18 ALKALINE PHOSPHATASE 34 - 123 U/L 99 89 Creatinine: Creatinine Latest Ref Rng & Units 11/13/2021 02/24/2022 CREAT 0.58 - 0.96 mg/dL 0.46(L) 0.46(L) ESR/CRP: ESR, WSR Latest Ref Rng & Units 11/13/2021 02/24/2022 WSR 0 - 20 mm/hr 33(H) 29(H) CRP Latest Ref Rng & Units 11/13/2021 02/24/2022 CRP <0.9 mg/dL 2.0(H) 0.6 Uric Acid: None on file in the last 6 months Open Standing (Multiple Instance) Lab Orders None Open Future (Single Instance) Lab Orders None Patient phones requesting refills as follows: Requested Prescriptions Pending Prescriptions Disp Refills leflunomide (ARAVA) 10 mg tablet [Pharmacy Med Name: LEFLUNOMIDE 10 MG TABLET] 30 tablet 3 Sig: TAKE 1 TABLET BY MOUTH EVERY DAY Please review and advise. Maria R Padilla MA documented in this encounter [facility] 03-02-2022 Miscellaneous Notes mailed as requested Ordered please mail Spoke with pt regarding below. Verbalized understanding. Patient would like to get xrays done closer to home. Please mail to home address when order placed. Left message with for patient to call back. Please call patient Cbc and cmp normal Crp normal sed rate improved Will wait for xray results Component Latest Ref Rng & Units 02/24/2022 WBC 3.70 - 11.00 k/uL 6.10 RBC 3.90 - 5.20 m/uL 4.29 Hemoglobin 11.5 - 15.5 g/dL 12.3 Hematocrit 36.0 - 46.0 % 37.1 MCV 80.0 - 100.0 fL 86.5 MCH 26.0 - 34.0 pg 28.7 MCHC 30.5 - 36.0 g/dL 33.2 RDW-CV 11.5 - 15.0 % 12.4 Platelet Count 150 - 400 k/uL 224 MPV 9.0 - 12.7 fL 11.0 Neut% % 36.6 Abs Neut (ANC) 1.45 - 7.50 k/uL 2.23 Lymph% % 49.7 Abs Lymph 1.00 - 4.00 k/uL 3.03 Sampson% % 8.0 Abs Sampson <0.87 k/uL 0.49 Eosin% % 4.6 Abs Eosin <0.46 k/uL 0.28 Baso% % 0.8 Abs Baso <0.11 k/uL 0.05 Immature Gran % % 0.3 IMMATURE GRANS (ABS) <0.10 k/uL <0.03 NRBC /100 WBC 0.0 Absolute nRBC <0.01 k/uL <0.01 DTYPE Auto Protein, Total 6.3 - 8.0 g/dL 6.7 Albumin 3.9 - 4.9 g/dL 4.0 Calcium 8.5 - 10.2 mg/dL 9.0 Bilirubin, Total 0.2 - 1.3 mg/dL <0.2 (L) Alkaline Phosphatase 34 - 123 U/L 89 AST 13 - 35 U/L 27 ALT 7 - 38 U/L 18 Glucose 74 - 99 mg/dL 87 BUN 7 - 21 mg/dL 7 Creatinine 0.58 - 0.96 mg/dL 0.46 (L) Sodium 136 - 144 mmol/L 136 Potassium 3.7 - 5.1 mmol/L 3.7 Chloride 97 - 105 mmol/L 102 CO2 22 - 30 mmol/L 22 Anion Gap 9 - 18 mmol/L 12 eGFR >=60 mL/min/1.73m 126 CRP <0.9 mg/dL 0.6 WSR 0 - 20 mm/hr 29 (H) documented in this encounter [facility] 02-24-2022 History of Present illness Narrative Pt at end of infusion c/o swelling and bump on her left foot. She was asking about surgical intervention, or perhaps block, or draining. Fariba Hill BOILERMAKING SUPERVISOR was consulted. Orders were placed for pt to go have her feet xrayed. Pt was directed over to xray for same day. She verbalized understanding. Since your last infusion, have you: Had any major change in your health (including new diagnosis of cancer, COPD or cogestive heart failure? No Been hospitalized? No Had any infections? No Taking antibiotics/antivirals/antifungals for current infection? No Had surgery or do you have upcoming surgery? No Received any live vaccines in the last four weeks? No Worsening GI symptoms/abnormal pain/bloating No In the past 7 days have you had: Fevers/chills/night sweats? No New cough or cold symptoms or sore throat? No Nausea/vomiting/diarrhea? No Unusual swelling of your ankles of feet? No Burning/blood with urination or urinary frequency? No New weakness/numbness/stumbling falls? No New rash or open sores? No documented in this encounter [facility] 02-20-2022 Miscellaneous Notes I spoke to Any and she will be coming in for her infusion on 02-24-22. She denies having been on any recent antibiotics. documented in this encounter [facility] 02-03-2022 History of Present illness Narrative POPULATION HEALTH NAVIGATION OUTREACH Action/FYI Left vm Pt identified by name and : NO Outreach Outcome/Action Unable to reach patient: Left message Trend[employer] message sent Did you use a PCP flex slot to schedule this appointment? No Reason for Outreach Care Gap or Scheduling/Wellness visits Payer: Payor: [employer] MEDICAID / Plan: [employer] MEDICAID / Product Type: Medicaid / Care Gap Reviewed:: Specialty Scheduling Reminder: Reminder note to check Health Maintenance for items below Health Maintenance items due: HEPATITIS B(1 of 3 - 3-dose series) Never done COVID-19 VACCINE(1) Never done PNEUMOCOCCAL(1 - PCV) Never done DTAP,TDAP,TD(1 - Tdap) Never done SHINGRIX VACCINE(1 of 2) Never done PAP TESTING Never done HPV TESTING Never done DEPRESSION ASSESSMENT Never done INFLUENZA(1) Never done Navigation Signature: Margarita Bro February 03, 2022 3:21 PM documented in this encounter [facility] 01-26-2022 Miscellaneous Notes Last time 10/29/2021 I increased to every 7 weeks This last visit 01/05/2022 Infliximab next time increase dose to 5mg/ kg- to decrease disease activity === PHARMACY TEAM ==== ADDITIONAL INFORMATION NEEDED/REQUESTED Date of Service: 02/24/2022 Additional Information Needed: can only change dose or frequency- cannot change both at one time If you want to change both, a P2P will be required. Also, max dosage increase allowed is up to 5.5mg/kg or 389mg per dose (treatment plan is for 400mg). How would you like to proceed- increase dose or increase frequency at this time? Or both and complete a P2P/Appeal? Need decision by 01/27/2022 ThanksKeanu documented in this encounter [facility] 01-06-2022 Miscellaneous Notes Smoking Cessation Navigation Outcome of contact: Left Message Comments: A voicemail has been left for this patient regarding Tobacco Cessation support options. If this patient has any further questions they can email us at or call us at [phone]. e[employer] Cam Maker/Smoking Cessation Navigator: Zaina Schmitz, [facility] documented in this encounter [facility] 01-06-2022 Miscellaneous Notes Can you please change plan to reflect Infliximab next time increase dose to 5mg/ kg- to decrease disease activity thanks documented in this encounter [facility] 01-05-2022 History of Present illness Narrative Since your last infusion, have you: Had any major change in your health (including new diagnosis of cancer, COPD or cogestive heart failure? No Been hospitalized? No Had any infections? No Taking antibiotics/antivirals/antifungals for current infection? No Had surgery or do you have upcoming surgery? No Received any live vaccines in the last four weeks? No Worsening GI symptoms/abnormal pain/bloating No In the past 7 days have you had: Fevers/chills/night sweats? No New cough or cold symptoms or sore throat? No Nausea/vomiting/diarrhea? No Unusual swelling of your ankles of feet? No Burning/blood with urination or urinary frequency? No New weakness/numbness/stumbling falls? No New rash or open sores? No documented in this encounter [facility] 01-05-2022 Instructions 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 - 01/05/2022 10:34 AM EST -PLEASE NOTE THAT WE REVIEW ALL YOUR TEST RESULTS AT YOUR NEXT FOLLOW UP VISIT WITH YOU. IF ANY ABNORMAL LAB REQUIRES SOONER ATTENTION, WE WILL CONTACT YOU. -If you have signed up on TrendMD, we will release your test results through TrendMD. Increase inflxiamab every 7 weeks 5mg/kg Start arava 10mg daily Hold arava and inflixamab if infection/ ill/ antibiotics - Vitamin D : vitamin D3: 2000 international units daily over the counter, with a meal - Please take your vitamin D with dinner or a handful of raw unsalted Almonds for best absorption. Vitamin D is a fat soluble vitamin that requires it be taken with good fat to be absorbed. - Your calcium is sufficient in your diet These include nuts, seeds, legumes/beans, peas, dark green leafy vegetables, plant based milk Additional calcium rich foods listed below - Soaking Almonds overnight in the fridge with drinking water, can help with softening the almonds and improved absorption of the almonds. - A whole plant based diet and healthy lifestyle have been reported to be optimal for bone health and prevention of bone loss Recommendations for healthy lifestyle include: Healthy nutritious diet, anti-inflammatory diet, appropriate exercise, good sleep hygiene, stress management, supplementing vital deficiencies and maintaining healthy weight. with BMI <26. 5 points to remember to improve your health and continue on a healthy path: 1- Optimal nutritious food, such as a Whole Plant Based diet You can watch the movie that features the Whole Plant Based diet, [place] over knives (see video online and visit website). Another movie that was recently released is: Eating You Alive (you can find it at Traity) Dr. Lisa Armando is a [facility] physician who is an expert in Whole Plant based diet. His website is Redux. His research work highlighted the benefits of Whole plant based diet in reversing and preventing heart disease. Consider reading Rip Prabha: The Engine 2 Diet, cookbook Mrs. Armando (his ) has a cookbook with many recipes on whole plant based food: The Prevent and Reverse Heart Disease cookbook. Dr. Stephen Martinez, has a website and free keisha to help get started on a whole plant based diet, at [employer]Scan[employer] and the free keisha is 21-Day Vemamadou Chaoart with meals and recipes to follow. He has multiple free videos and YouTube, for example: [email or web address] , [email or web address] Dr. Gordy Farrell has proven starch diet whole plant based and benefit to his Rheumatoid Arthritis patients, his website: drSpartek Medicall.Strap Dr. Maira Bertrand is a renowned atmospheric scientist, who has studied and researched the benefits of the Whole plant based diet. He has also researched the adverse effects of animal proteins on health. He presents many of his research findings in his book The [place] study. Dr. Maurilio Xie has completed many research trials proving the reversal of diseases with healthy lifestyle and the Whole Plant based diet. Dr. Maurilio Xie website is: [employer] UnDo It a new book by Dr. Maurilio Thomas has dedicated a website and additional time to reviewing all food related articles and research and presents them in his power point presentation and on his website at: nutritionfacts.org Dr. Thomas has multiple free videos and YouTube, for example [email or web address]/[email or web address] and [email or web address]. Also, you could find additional information by reading or watching online and YouTube such as: Head Of Sales And Marketing AJ, Cooking With Plants, The Vegan Corner (recipes from an Syrian Head Of Sales And Marketing), and visiting the provided websites for additional information on the whole plant based benefit and cooking recipes. The Whole Foods Plant Based Cooking Show Athletes such as Kelvin Kan, Antonio Guillermo, Shaheen Mooney YouTube Guilt Free Shaheen Mooney YouTube Guilt Free TV and Hua with [employer]. Goodbye Lupus by Kandi Leonard M.D If you suspect you are gluten sensitive or intolerant, consider gluten free diet. Gluten could lead to increased inflammation in the bowels and body in certain patients. Consider organic and non-GMO products when shopping for your food. GMO are genetically modified food that may have adverse impact on our health. 2- Regular Exercise, i.e. beginner yoga Come As You Are: YOGA - Gentle Yoga Anyone Can Do Anywhere www.[facility].Strap/yo ga landon chi, stretching, cardio, gradual strengthening, pool therapy, physical therapy 3- Good Sleep (poor sleep impacts everything, recommended sleep is 7.5 to 8 hrs. a night). Meditation and relaxation techniques have shown to help with improving sleep. 4- Stress management, staying positive, be happy, laugh often (it is a great medicine) Find time to relax and meditate if possible. Following steps 1-3 will help with this as well. In psychiatric disorders, it is important to follow with a professional on the optimal management of depression, anxiety or psychiatric illness 5- Supplementing necessary vitamins and minerals, correcting any deficiencies, i.e. Vitamin D, B12, omega-3 fatty acids etc... Go natural when possible If you are following a Whole plant based diet, it is recommended to take Vitamin B12, sublingual, dissolve under the tongue, take once daily. Vitamin B12 is available over the counter, dose could be 2500 mcg, and can be taken once a week, and if your blood levels are low, you may need to take it once daily or a higher dose. Raw: Garlic, Cilantro, [place] nuts, Pumpkin seeds, [place] seeds and Flax seed powder have been reported to help with certain metal detoxification such as mercury. [place]-3 plant based sources: rachana seeds, flax seed powder, flax milk, walnuts. Turmeric can be found natural, used as the spice powder or the root with your food. This is also available as a capsule. Sweet cherries (raw cleaned or frozen) and Turmeric have anti-inflammatory benefit Start reviewing the Whole Plant Based Diet, by watching [place] over myTAG.[email or web address] movie and then review website. There are many other resources and educational information on the Whole plant based diet on the Internet and documentaries. There are other resources for wellness that you can also benefit from, such as the [facility] Wellness website, [facility] and includes the Mediterranean heart healthy diet and yoga and meditation. Please avoid all dairy products. You could use non-dairy milk such as Flax milk, Cashew milk, [place] milk, Rice milk, Oat milk or Hemp milk, instead. It is very important to avoid all: refined sugars (including high fructose syrup), refined carbohydrates, any artificial sweeteners and artificial preservatives, and soda and processed food. Insure adequate hydration; drink at least 6 to 8 cups of water daily Examples of Smoothies: Every morning you can start your day with a healthy natural anti-inflammatory smoothie, for example, you can blend: fresh or frozen sweet cherries, half a root of turmeric (1 to 2 inches), banana, blue berries, walnuts, few leaves of kale, add flax milk (or almond milk), and enjoy. You could add half an avocado if you like it smoother. If you do not tolerate walnuts, you can use flax seeds, rachana seeds or hemp seeds instead. If you do not like plant based milk, you can use coconut water or plain water instead. Other smoothies, including green smoothies, are also very healthy and highly anti-inflammatory. For example fruits (such as banana or frozen anurag or pineapple) and add significant amount of leafy greens, then add water or coconut water and blend until smooth. You can also add turmeric in this recipe. GENERAL INFORMATION ON BONE HEALTH : -Bone Density testing (DXA scan) as recommended. -Vitamin D supplementation is recommended, unless blood levels are sufficient. Recommended daily dose of 1000 to 2000 IU total a day, or the dose necessary to achieve a Vitamin D 25-OH blood level of >31 and preferably closer to 40-60 ng/mL. Vitamin D pills are available over the counter. -Recommended daily dose of calcium: 1200mg total a day in divided doses. Calcium is usually sufficient in our regular diet, also available in multivitamins. Patients on certain dietary restrictions or those unable to meet their daily calcium by diety alone, may require calcium supplements. For patient with history of calcium kidney stones, Calcium Citrate would be the recommended supplement. It is recommended to avoid caclium carbonate supplement in this case, as these may increase risk of calcium kidney stones. The after visit summary has information on dietary calcium and instructions on reading calcium label and converting the %DV to mg. When you read a food label and you see calcium reported as DV %, add a zero and this will provide you with the approximate mg value of the calcium content in this food. For example, if a glass of almond milk is labeled as 40% calcium DV, then this contains 400 mg of calcium. For additional information, please see references provided. -Regular weight-bearing and muscle-strengthening exercise -Avoidance of tobacco smoking, excessive alcohol intake and excessive caffeine intake. -Fall and fracture precautions -It is recommend to continue regular follow up visits with your dentist every 6 months, and continue with good oral hygiene. Calcium: If your diet is sufficient in Calcium rich food, you will not need calcium supplement. Calcium Citrate is the preferred calcium if you have had kidney stones. Daily recommended calcium dose: 600mg twice a day with meals. Adequate calcium ingestion is essential for maintaining healthy bones. The recommended dose daily intake of calcium varies depending on individual needs but is usually between 1200 and 1500mg daily, preferably around 1200mg a day in divided dose (not all taken at once). This is equivalent to about five 8oz glasses of milk per day. Many foods are rich in calcium and they include: - Plant based, non-dairy, calcium rich products, include nuts, almond milk, beans, lentils - Vegetables and Fruit: bok-gilbert, turnips, broccoli, kale, collards, - Dairy products: milk, cheese, yogurt, ice-cream - Fish products: canned salmon, sardines and shrimp - Cereals and nuts: almonds, sesame seeds, fortified cereals and oatmeal - Other foods: fortified orange-juice, figs, soybeans, other beans and eggs. If you have a low calcium diet and cannot tolerate calcium-rich foods, many supplements are available today. Your pharmacist can help you choose the one which best suits your needs. A few tips on supplements: - They should be easy to swallow - They should dissolve easily in cup of vinegar in < 15 minutes. - Count the ELEMENTAL calcium mgs. E.g. Calcium 499mg may have only 221mg of elemental Calcium. - Calcium citrate is the calcium supplement to take if you have had kidney stones and unable to meet your calcium requirements from food/diet alone. - There is such a variety today that it is best to bring in the bottle to your doctor to show them exactly what you are taking. Lastly too much calcium can be bad for you. Recent studies show extra supplements may increase your risk of kidney stones or cause high calcium levels in some people. You should discuss how much you should be taking with your doctor before starting them. Further Information is available from the following resources: www.nof.org (National Osteoporosis Foundation) http://www.osteo.org/osteolinks.as p National Institutes of Health: 8-822-731-BONE The Calcium Information Kamiah: Non-Dairy, Plant based Milk, contain 1 glass = 450 mg of calcium Exampled include Flax Milk, [place] Milk, Cashew Milk Examples of Food Sources of Calcium from [facility] Food Milligrams (mg) per serving Percent DV* Soymilk, calcium-fortified, 8 ounces 299 30 King juice, calcium-fortified, 6 ounces 261 26 Tofu, firm, made with calcium sulfate, cup* 253 25 Tofu, soft, made with calcium sulfate, cup* 138 14 Pzpne-qa-ltt cereal, calcium-fortified, 1 cup 100-1,000 10-100 Turnip greens, fresh, boiled, cup 99 10 Kale, raw, chopped, 1 cup 100 10 Kale, fresh, cooked, 1 cup 94 9 Albanian cabbage, bok gilbert, raw, shredded, 1 cup 74 7 Bread, white, 1 slice 73 7 Tortilla, corn, emtkv-ay-wyxn/mcgee, one 6 diameter 46 5 Tortilla, flour, cojps-ve-ipqd/mcgee, one 6 diameter 32 3 Bread, whole-wheat, 1 slice 30 3 Broccoli, raw, cup 21 2 * DV = Daily Value. DVs were developed by the U.S. Food and Drug Administration to help consumers compare the nutrient contents among products within the context of a total daily diet. The U.S. Department of Agriculture s (USDA s) Nutrient Database Web site lists the nutrient content of many foods and provides comprehensive list of foods containing calcium arranged by nutrient content and by food name. *Calcium content varies slightly by fat content; the more fat, the less calcium the food contains. * Calcium content is for tofu processed with a calcium salt. Tofu processed with other salts does not provide significant amounts of calcium. You could acces this information online at: http://ods.od.nih.gov/factsheets/C [facility]/ Vitamin D: Vitamin D3= cholecalciferol, available over the counter. Dose recommended 800 to 1000 iu daily with a meal; Certain patients required 0217-4579 iu daily and in patients deficient in Vitamin D, they require higher dosages. Certain patient requires higher dose, depending on their Vit D blood levels. Vitamin D is essential for calcium metabolism. It is really a hormone produced mainly in your skin after exposure to sunlight. Vitamin D helps you absorb calcium from your stomach and kidneys and incorporates it into your bones. Studies show approximately 50% of [place] men and women are vitamin D deficient in the winter. Milder cases of vitamin D are usually asymptomatic so the only way to know you have a problem is to have a blood level checked. More severe cases can cause osteomalacia (a.k.a. rickets) which can result in bone pain, weak bones and several abnormal laboratory tests and also weak muscles (a.k.a. myopathy). When this happens, your bones lose a lot of their calcium stores as the body tries to regulate the calcium required by other tissues. Prolonged deficiency can lead to severe bone disorders and fractures. Unlike calcium, dietary sources of vitamin D are rare, limited to a few fish oils particularly cod-liver oil, other fortified foods and egg yolks. Often supplementation is needed. Many multivitamins contain some vitamin D and vitamin D alone preparations are now available in several forms. The recommended daily intake of vitamin D used to be 400 and 800 international units, however, it is now known that larger amounts are needed, as discussed above. Your doctor can prescribe prescription strength vitamin D for you if necessary, if you have marked deficiency or diseases of the liver or kidney. Supplementation in patients with severe deficiency can stabilize or improve bone mineral density and in frail elderly persons, may reduce their risk of falling. Additional Information is available from: www.nof.org (the national osteoporosis foundation) http://www.[facility].org/art hritis/osteo/info.htm http://ods.od.nih.gov/factsheets/v itamind.asp National Institutes of Health: 3-603-527-BONE [facility] Calcium Information Kamiah: Thank you for choosing [facility] for your healthcare. Sincerely, 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 documented in this encounter [facility] 01-05-2022 History of Present illness Narrative FOLLOW UP VISIT- virtual PCP: Tino Blake MD [address] [place] [address] Ms. Ludwig is a 36 year old patient here today for follow up of RA Interim History: Hands/ feet right elbow Swelling left foot MTP, right elbow, b/l wrist Pain 11/01 Here for infusion Am stiffness Had tubal ligation No infection/ illness No upcoming infusion No currently taking vit d REVIEW OF SYSTEMS: Review of Systems CONSTITUTION: Negative for: Weight loss or gain, Fever. Chills, Night sweats HEENT: Negative for: Nosebleeds, Mouth sores, Trouble swallowing, Dry mouth RESPIRATORY: Positive for: Cough (smoker, unchanged) Negative for: Shortness of breath GASTROINTESTINAL: Negative for: Melena, Diarrhea, Abdominal pain, Heartburn, MUSCULOSKELETAL: Positive for: Arthralgias, Joint swelling and Morning Joint Stiffness Negative for: Muscle weakness NEUROLOGICAL: Positive for: Numbness (numbness in right hand where she has inflammation, none on exam ) SKIN: Negative for: Rashes, Sun sensitive rashes, Skin color changes, Hair loss, Nail changes EYES: Negative for: Eye pain, Eye redness, Visual disturbance, Eye dryness CARDIOVASCULAR: Negative for: Chest pain, Leg swelling, Arrhythmia, Presyncope GENITOURINARY: Negative for: Dysuria, Hematuria, Ulceration HEMATOLOGIC/LYMPHATIC: Negative for: Swollen glands Past Medical Hx, Past Surgical Hx. Social Hx and Family Hx: unchanged ACTIVE PROBLEM LIST Cyclic Citrullinated Peptide (Ccp) Antibody Positive - 12/30/2017 Rheumatoid Factor Positive - 12/30/2017 Seropositive Rheumatoid Arthritis (Hcc) - 12/30/2017 Smokes and Motivated to Quit - 12/30/2017 Comment: Counseled on cessation Vitamin D Deficiency - 04/23/2017 PHYSICAL EXAMINATION: BP 128/68 Pulse 66 Wt 70.8 kg (156 lb) LMP 04/15/2017 (Approximate) BMI 24.43 kg/m GENERAL: alert and appropriate, in no distress, well-hydrated, well nourished and happy, smiling, interactive SKIN: no rash noted HEAD: normocephalic, no abnormality or lesion noted EYES: no injection and visual acuity is grossly normal EARS: hearing grossly normal No apparent nasal bridge collapse, no cartilage swelling, no parotid gland swelling. NOSE: external nose normal without rhinorrhea OROPHARYNX: moist mucus membranes NECK: full ROM, no cervical LNs noted RESPIRATORY: breathing non-labored CHEST: clear lung sounds ABDOMEN: soft and non-tender MUSCULOSKELETAL : nodules on b/l wrist unchanged no apparent joint effusion or synovitis Swollen joints- Swelling left foot MTP, right elbow, b/l wrist Tender joints - Swelling left foot MTP, right elbow, b/l wrist No tenderness with percussion over long bones-femur/tibia b/l EXTREMITIES: FROM NEUROLOGIC: no obvious deficit Prior Test results discussed with patient. IMPRESSION/DIAGNOSIS: M05.9 Seropositive rheumatoid arthritis (HCC) (primary encounter diagnosis) F17.200 Smoker M79.672 Pain in left foot Z71.89 Encounter for medication review and counseling Z71.2 Encounter to discuss test results Z51.81, Z79.899 Encounter for monitoring leflunomide therapy Z71.89 Counseling on health promotion and disease prevention Z79.899 High risk medication use M06.9 Rheumatoid arthritis flare (HCC) Rheumatoid Arthritis Sero-positive, RF, CCP Non-erosive Per Dr. Pandya last note At last visit the patient's Rheumatoid Arthritis appears to be active and worse since last visit and since being off DMARDs. She has not followed up since 2019. She has been off RA medications for 1.5 years. Stopped Arava and xejanz in 2019. She reports only took Xeljanz for the 30 day free supply. She did not follow up on the Xelsource program, was unclear when asked. With patient's drug addition history, would have to defer from self injectables and needles at home. Due to her problems with transportation and lives far, she is unable to receive IV infusions. She is planning to follow up with local cryogenics engineer closer to home. Until she has her apt, we offered assistance with her RA care and follow up apt. Advised we can only provide 1 month supply and will need f/u apt for recheck and refill for her safety. We also reviewed importance of follow up with her dentist to evaluate for painful tooth and exclude infection. Dental infections can be risk for Rheumatoid Arthritis flares as well as concerns for more serious infections. Patient has had multiple unfortunate social and psychologic factors over her lifetime. We are assisting with hospice social worker consult, also to help with adherence to health care and patient's social support, especially that now she is caring for her , as a single mother. Rheumatoid arthritis is active at todays visit. Infliximab due today. Arava 10mg daily. Interim flares Synovitis in multiple joints. Swelling MTP left foot, patient requesting podiatry consult. Vit d def, vit d recheck today. No procedures planned, no s/s of infections and no antibiotics. Smoker, consult to smoking cessation. PLAN/RECOMMENDATIONS: Office Visit on 01/05/22 CONSULT TO PODIATRY CONSULT TO SMOKING CESSATION Labs today and with next infusion Infliximab next time increase dose to 5mg/ kg- to decrease disease activity Discussed medications dosage, usage, goals of therapy and side effects. Patient instructed to notify provider of any changes in medical condition. Patient in agreement and in understanding of plan. Follow up: 2 month for medication monitoring I spent a total of 32 minutes on the date of the service which included preparing to see the patient, [id number] patient care, completing clinical documentation, obtaining and/or reviewing separately obtained history, performing a medically appropriate examination, counseling and educating the patient/family/caregiver, and ordering medications, tests, or procedures. Portions of this note have been copied from my previous note and have been updated to reflect today's visit note January 05, 2022 all reflect current medical decision making from date of this visit. Fariba Hill APRN.CNP Recommendations to share with referring physician/Primary care physician : Dear Dr. Blake, I had the pleasure of seeing your patient, Mrs Ludwig. I have enclosed a copy of my clinic note with my assessment and recommendations for this patient. Recommendations for your consideration as you deem necessary: -Continuous follow up with Primary care physician for cardiovascular disease prevention, for age appropriate cancer screening and routine health maintenance and wellness, and infection precautions and age appropriate immunization recommended. Thank you for allowing me to participate in the care of your patient. Fariba Hill APRN.CNP CC: Tino Blake MD documented in this encounter [facility] 01-02-2022 Miscellaneous Notes I LMOM for Any to please give us a call back. If she calls back, please ask her these pre-infusion questions. Since your last infusion, have you: Had any major change in your health (including new diagnosis of cancer, COPD or cogestive heart failure? Been hospitalized? Had any infections? Taking antibiotics/antivirals/antifungals for current infection? Had surgery or do you have upcoming surgery? Received any live vaccines in the last four weeks? Worsening GI symptoms/abnormal pain/bloating In the past 7 days have you had: Fevers/chills/night sweats? New cough or cold symptoms or sore throat? Nausea/vomiting/diarrhea? Unusual swelling of your ankles of feet? Burning/blood with urination or urinary frequency? New weakness/numbness/stumbling falls? New rash or open sores? If you answer yes to any of these questions, please give a brief explanation. Thank you for your prompt response: Your infusion team documented in this encounter [facility] 12-22-2021 Miscellaneous Notes Called patient to offer to reschedule appointments to 01/01, left message with vm. Attempted to call pt, no answer. Sent her a BlogRadio message. Please call pt to reschedule infusion and appt with Fariba Hill (due 01/01/22). Can cancel appts on 01/05/22 if patient agrees to change to 01/01. She is scheduled 12/16/21 which is too soon. Last infusion 11/13/21, ordered every 7 weeks. Can leave appt with Fariba for tomorrow until patient calls back to acknowledge that her appts are cancelled. documented in this encounter [facility] 12-15-2021 Miscellaneous Notes I called and left message for Any to please give us a call and let us know that she will be coming for her infusion. If she calls back please ask and document the following questions. Hi there this is your infusion team, Since your last infusion, have you: Had any major change in your health (including new diagnosis of cancer, COPD or cogestive heart failure? Been hospitalized? Had any infections? Taking antibiotics/antivirals/antifungals for current infection? Had surgery or do you have upcoming surgery? Received any live vaccines in the last four weeks? Worsening GI symptoms/abnormal pain/bloating In the past 7 days have you had: Fevers/chills/night sweats? New cough or cold symptoms or sore throat? Nausea/vomiting/diarrhea? Unusual swelling of your ankles of feet? Burning/blood with urination or urinary frequency? New weakness/numbness/stumbling falls? New rash or open sores? If you answer yes to any of these questions, please give a brief explanation. documented in this encounter [facility] 11-13-2021 History of Present illness Narrative Since your last infusion, have you: Had any major change in your health (including new diagnosis of cancer, COPD or cogestive heart failure? No Been hospitalized? No Had any infections? No Taking antibiotics/antivirals/antifungals for current infection? No Had surgery or do you have upcoming surgery? No Received any live vaccines in the last four weeks? No Worsening GI symptoms/abnormal pain/bloating No In the past 7 days have you had: Fevers/chills/night sweats? No New cough or cold symptoms or sore throat? No Nausea/vomiting/diarrhea? No Unusual swelling of your ankles of feet? No Burning/blood with urination or urinary frequency? No New weakness/numbness/stumbling falls? No New rash or open sores? No documented in this encounter [facility] 11-11-2021 Miscellaneous Notes I LMOM for pt to please give us a call to confirm her apt. If pt returns call, please ask and document questions. Since your last infusion, have you: Had any major change in your health (including new diagnosis of cancer, COPD or cogestive heart failure? Been hospitalized? Had any infections? Taking antibiotics/antivirals/antifungals for current infection? Had surgery or do you have upcoming surgery? Received any live vaccines in the last four weeks? Worsening GI symptoms/abnormal pain/bloating In the past 7 days have you had: Fevers/chills/night sweats? New cough or cold symptoms or sore throat? Nausea/vomiting/diarrhea? Unusual swelling of your ankles of feet? Burning/blood with urination or urinary frequency? New weakness/numbness/stumbling falls? New rash or open sores? documented in this encounter [facility] 10-29-2021 Instructions Fariba Hill APRN.[facility] - 10/29/2021 1:51 PM EDT -PLEASE NOTE THAT WE REVIEW ALL YOUR TEST RESULTS AT YOUR NEXT FOLLOW UP VISIT WITH YOU. IF ANY ABNORMAL LAB REQUIRES SOONER ATTENTION, WE WILL CONTACT YOU. -If you have signed up on [employer], we will release your test results through [facility]. Increase inflxiamab every 7 weeks 5mg/kg Start arava 10mg daily Hold arava and inflixamab if infection/ ill/ antibiotics - Vitamin D : vitamin D3: 2000 international units daily over the counter, with a meal - Please take your vitamin D with dinner or a handful of raw unsalted Almonds for best absorption. Vitamin D is a fat soluble vitamin that requires it be taken with good fat to be absorbed. - Your calcium is sufficient in your diet These include nuts, seeds, legumes/beans, peas, dark green leafy vegetables, plant based milk Additional calcium rich foods listed below - Soaking Almonds overnight in the fridge with drinking water, can help with softening the almonds and improved absorption of the almonds. - A whole plant based diet and healthy lifestyle have been reported to be optimal for bone health and prevention of bone loss Recommendations for healthy lifestyle include: Healthy nutritious diet, anti-inflammatory diet, appropriate exercise, good sleep hygiene, stress management, supplementing vital deficiencies and maintaining healthy weight. with BMI <26. 5 points to remember to improve your health and continue on a healthy path: 1- Optimal nutritious food, such as a Whole Plant Based diet You can watch the movie that features the Whole Plant Based diet, [place] over knives (see video online and visit website). Another movie that was recently released is: Eating You Alive (you can find it at Traity) Dr. Lisa Armando is a [facility] physician who is an expert in Whole Plant based diet. His website is Redux. His research work highlighted the benefits of Whole plant based diet in reversing and preventing heart disease. Consider reading Rip Raullexy: The Engine 2 Diet, cookbook Mrs. Armando (his ) has a cookbook with many recipes on whole plant based food: The Prevent and Reverse Heart Disease cookbook. Dr. Stephen Martinez, has a website and free keisha to help get started on a whole plant based diet, at Pagar.me and the free keisha is 21-Day TC Ice Cream with meals and recipes to follow. He has multiple free videos and YouTube, for example: [email or web address] , [email or web address] Dr. Gordy Farrell has proven starch diet whole plant based and benefit to his Rheumatoid Arthritis patients, his website: Wheelright.Strap Dr. Maira Bertrand is a renowned atmospheric scientist, who has studied and researched the benefits of the Whole plant based diet. He has also researched the adverse effects of animal proteins on health. He presents many of his research findings in his book The [place] study. Dr. Maurilio Xie has completed many research trials proving the reversal of diseases with healthy lifestyle and the Whole Plant based diet. Dr. Maurilio Xie website is: mignonNatrix [employer]arations.Strap UnDo It a new book by Dr. Maurilio Thomas has dedicated a website and additional time to reviewing all food related articles and research and presents them in his power point presentation and on his website at: nutritionfacts.org Dr. Thomas has multiple free videos and YouTube, for example [email or web address] and [email or web address]. Also, you could find additional information by reading or watching online and YouTube such as: Head Of Sales And Marketing AJ, Cooking With Plants, The Vegan Corner (recipes from an Syrian Head Of Sales And Marketing), and visiting the provided websites for additional information on the whole plant based benefit and cooking recipes. The Whole Foods Plant Based Cooking Show Athletes such as Kelvin Kan, Antonio Guillermo, Shaheen Mooney YouTube Guilt Free Shaheen Mooney YouTube Guilt Free TV and Hua with [employer]. Goodbye Lupus by Kandi Leonard M.D If you suspect you are gluten sensitive or intolerant, consider gluten free diet. Gluten could lead to increased inflammation in the bowels and body in certain patients. Consider organic and non-GMO products when shopping for your food. GMO are genetically modified food that may have adverse impact on our health. 2- Regular Exercise, i.e. beginner yoga Come As You Are: YOGA - Gentle Yoga Anyone Can Do Anywhere www.[employer]/yo ga landon chi, stretching, cardio, gradual strengthening, pool therapy, physical therapy 3- Good Sleep (poor sleep impacts everything, recommended sleep is 7.5 to 8 hrs. a night). Meditation and relaxation techniques have shown to help with improving sleep. 4- Stress management, staying positive, be happy, laugh often (it is a great medicine) Find time to relax and meditate if possible. Following steps 1-3 will help with this as well. In psychiatric disorders, it is important to follow with a professional on the optimal management of depression, anxiety or psychiatric illness 5- Supplementing necessary vitamins and minerals, correcting any deficiencies, i.e. Vitamin D, B12, omega-3 fatty acids etc... Go natural when possible If you are following a Whole plant based diet, it is recommended to take Vitamin B12, sublingual, dissolve under the tongue, take once daily. Vitamin B12 is available over the counter, dose could be 2500 mcg, and can be taken once a week, and if your blood levels are low, you may need to take it once daily or a higher dose. Raw: Garlic, Cilantro, [place] nuts, Pumpkin seeds, [place] seeds and Flax seed powder have been reported to help with certain metal detoxification such as mercury. [place]-3 plant based sources: rachana seeds, flax seed powder, flax milk, walnuts. Turmeric can be found natural, used as the spice powder or the root with your food. This is also available as a capsule. Sweet cherries (raw cleaned or frozen) and Turmeric have anti-inflammatory benefit Start reviewing the Whole Plant Based Diet, by watching [place] over Knives movie and then review website. There are many other resources and educational information on the Whole plant based diet on the Internet and documentaries. There are other resources for wellness that you can also benefit from, such as the [facility] Wellness website, [facility]org and includes the Mediterranean heart healthy diet and yoga and meditation. Please avoid all dairy products. You could use non-dairy milk such as Flax milk, Cashew milk, [place] milk, Rice milk, Oat milk or Hemp milk, instead. It is very important to avoid all: refined sugars (including high fructose syrup), refined carbohydrates, any artificial sweeteners and artificial preservatives, and soda and processed food. Insure adequate hydration; drink at least 6 to 8 cups of water daily Examples of Smoothies: Every morning you can start your day with a healthy natural anti-inflammatory smoothie, for example, you can blend: fresh or frozen sweet cherries, half a root of turmeric (1 to 2 inches), banana, blue berries, walnuts, few leaves of kale, add flax milk (or almond milk), and enjoy. You could add half an avocado if you like it smoother. If you do not tolerate walnuts, you can use flax seeds, rachana seeds or hemp seeds instead. If you do not like plant based milk, you can use coconut water or plain water instead. Other smoothies, including green smoothies, are also very healthy and highly anti-inflammatory. For example fruits (such as banana or frozen anurag or pineapple) and add significant amount of leafy greens, then add water or coconut water and blend until smooth. You can also add turmeric in this recipe. GENERAL INFORMATION ON BONE HEALTH : -Bone Density testing (DXA scan) as recommended. -Vitamin D supplementation is recommended, unless blood levels are sufficient. Recommended daily dose of 1000 to 2000 IU total a day, or the dose necessary to achieve a Vitamin D 25-OH blood level of >31 and preferably closer to 40-60 ng/mL. Vitamin D pills are available over the counter. -Recommended daily dose of calcium: 1200mg total a day in divided doses. Calcium is usually sufficient in our regular diet, also available in multivitamins. Patients on certain dietary restrictions or those unable to meet their daily calcium by diety alone, may require calcium supplements. For patient with history of calcium kidney stones, Calcium Citrate would be the recommended supplement. It is recommended to avoid caclium carbonate supplement in this case, as these may increase risk of calcium kidney stones. The after visit summary has information on dietary calcium and instructions on reading calcium label and converting the %DV to mg. When you read a food label and you see calcium reported as DV %, add a zero and this will provide you with the approximate mg value of the calcium content in this food. For example, if a glass of almond milk is labeled as 40% calcium DV, then this contains 400 mg of calcium. For additional information, please see references provided. -Regular weight-bearing and muscle-strengthening exercise -Avoidance of tobacco smoking, excessive alcohol intake and excessive caffeine intake. -Fall and fracture precautions -It is recommend to continue regular follow up visits with your dentist every 6 months, and continue with good oral hygiene. Calcium: If your diet is sufficient in Calcium rich food, you will not need calcium supplement. Calcium Citrate is the preferred calcium if you have had kidney stones. Daily recommended calcium dose: 600mg twice a day with meals. Adequate calcium ingestion is essential for maintaining healthy bones. The recommended dose daily intake of calcium varies depending on individual needs but is usually between 1200 and 1500mg daily, preferably around 1200mg a day in divided dose (not all taken at once). This is equivalent to about five 8oz glasses of milk per day. Many foods are rich in calcium and they include: - Plant based, non-dairy, calcium rich products, include nuts, almond milk, beans, lentils - Vegetables and Fruit: bok-gilbert, turnips, broccoli, kale, collards, - Dairy products: milk, cheese, yogurt, ice-cream - Fish products: canned salmon, sardines and shrimp - Cereals and nuts: almonds, sesame seeds, fortified cereals and oatmeal - Other foods: fortified orange-juice, figs, soybeans, other beans and eggs. If you have a low calcium diet and cannot tolerate calcium-rich foods, many supplements are available today. Your pharmacist can help you choose the one which best suits your needs. A few tips on supplements: - They should be easy to swallow - They should dissolve easily in cup of vinegar in < 15 minutes. - Count the ELEMENTAL calcium mgs. E.g. Calcium 499mg may have only 221mg of elemental Calcium. - Calcium citrate is the calcium supplement to take if you have had kidney stones and unable to meet your calcium requirements from food/diet alone. - There is such a variety today that it is best to bring in the bottle to your doctor to show them exactly what you are taking. Lastly too much calcium can be bad for you. Recent studies show extra supplements may increase your risk of kidney stones or cause high calcium levels in some people. You should discuss how much you should be taking with your doctor before starting them. Further Information is available from the following resources: www.nof.org (National Osteoporosis Foundation) http://www.osteo.org/osteolinks.as p National Institutes of Health: 0-416-569-BONE The Calcium Information Center: Non-Dairy, Plant based Milk, contain 1 glass = 450 mg of calcium Exampled include Flax Milk, [place] Milk, Cashew Milk Examples of Food Sources of Calcium from NIH Food Milligrams (mg) per serving Percent DV* Soymilk, calcium-fortified, 8 ounces 299 30 King juice, calcium-fortified, 6 ounces 261 26 Tofu, firm, made with calcium sulfate, cup* 253 25 Tofu, soft, made with calcium sulfate, cup* 138 14 Vxroh-pu-rbe cereal, calcium-fortified, 1 cup 100-1,000 10-100 Turnip greens, fresh, boiled, cup 99 10 Kale, raw, chopped, 1 cup 100 10 Kale, fresh, cooked, 1 cup 94 9 Albanian cabbage, bok gilbert, raw, shredded, 1 cup 74 7 Bread, white, 1 slice 73 7 Tortilla, corn, [id number]/mcgee, one 6 diameter 46 5 Tortilla, flour, iqvfq-px-eqdu/mcgee, one 6 diameter 32 3 Bread, whole-wheat, 1 slice 30 3 Broccoli, raw, cup 21 2 * DV = Daily Value. DVs were developed by the U.S. Food and Drug Administration to help consumers compare the nutrient contents among products within the context of a total daily diet. The U.S. Department of Agriculture s ([place]ie[place] s) Nutrient Database Web site lists the nutrient content of many foods and provides comprehensive list of foods containing calcium arranged by nutrient content and by food name. *Calcium content varies slightly by fat content; the more fat, the less calcium the food contains. * Calcium content is for tofu processed with a calcium salt. Tofu processed with other salts does not provide significant amounts of calcium. You could acces this information online at: http://ods.od.nih.gov/factsheets/C alcium-HealthProfessional/ Vitamin D: Vitamin D3= cholecalciferol, available over the counter. Dose recommended 800 to 1000 iu daily with a meal; Certain patients required 9705-8263 iu daily and in patients deficient in Vitamin D, they require higher dosages. Certain patient requires higher dose, depending on their Vit D blood levels. Vitamin D is essential for calcium metabolism. It is really a hormone produced mainly in your skin after exposure to sunlight. Vitamin D helps you absorb calcium from your stomach and kidneys and incorporates it into your bones. Studies show approximately 50% of [place] men and women are vitamin D deficient in the winter. Milder cases of vitamin D are usually asymptomatic so the only way to know you have a problem is to have a blood level checked. More severe cases can cause osteomalacia (a.k.a. rickets) which can result in bone pain, weak bones and several abnormal laboratory tests and also weak muscles (a.k.a. myopathy). When this happens, your bones lose a lot of their calcium stores as the body tries to regulate the calcium required by other tissues. Prolonged deficiency can lead to severe bone disorders and fractures. Unlike calcium, dietary sources of vitamin D are rare, limited to a few fish oils particularly cod-liver oil, other fortified foods and egg yolks. Often supplementation is needed. Many multivitamins contain some vitamin D and vitamin D alone preparations are now available in several forms. The recommended daily intake of vitamin D used to be 400 and 800 international units, however, it is now known that larger amounts are needed, as discussed above. Your doctor can prescribe prescription strength vitamin D for you if necessary, if you have marked deficiency or diseases of the liver or kidney. Supplementation in patients with severe deficiency can stabilize or improve bone mineral density and in frail elderly persons, may reduce their risk of falling. Additional Information is available from: www.nof.org (the national osteoporosis foundation) http://www.[facility].org/art hritis/osteo/info.htm http://ods.od.nih.gov/factsheets/v itamind.asp [facility]: [phone] [facility] Calcium Information Kamiah: Thank you for choosing [facility] for your healthcare. Sincerely, 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 documented in this encounter [facility] 10-29-2021 History of Present illness Narrative FOLLOW UP VISIT- virtual PCP: Tino Blake MD [address] [place] [address] Ms. Ludwig is a 36 year old patient here today for follow up of RA Interim History: Having flare Has been bad in feet Nodule on left big toe Bottoms and tops of feet up to ankle Trouble sleeping Throbbing and shooting Right elbow Swelling in feet and elbow Since starting infusion has improved Worsens after 6 weeks Inflixamab every 8 weeks Had tubal ligation Will try inflixamab 5mg/kg and every 7 weeks Vit d previously low completed rx wqill start vit d 2000 international unit(s) daily REVIEW OF SYSTEMS: Review of Systems CONSTITUTION: Negative for: Weight loss or gain, Fever. Chills, Night sweats HEENT: Negative for: Nosebleeds, Mouth sores, Trouble swallowing, Dry mouth RESPIRATORY: Negative for: Cough, Shortness of breath, Pain with breathing, Coughing up blood GASTROINTESTINAL: Negative for: Melena, Diarrhea, Abdominal pain, Heartburn, MUSCULOSKELETAL: Positive for: Arthralgias, Joint swelling and Morning Joint Stiffness Negative for: Muscle weakness NEUROLOGICAL: Positive for: Numbness (numbness in right hand where she has inflammation, none on exam ) SKIN: Negative for: Rashes, Sun sensitive rashes, Skin color changes, Hair loss, Nail changes EYES: Negative for: Eye pain, Eye redness, Visual disturbance, Eye dryness CARDIOVASCULAR: Negative for: Chest pain, Leg swelling, Arrhythmia, Presyncope GENITOURINARY: Negative for: Dysuria, Hematuria, Ulceration HEMATOLOGIC/LYMPHATIC: Negative for: Swollen glands Past Medical Hx, Past Surgical Hx. Social Hx and Family Hx: unchanged ACTIVE PROBLEM LIST Cyclic Citrullinated Peptide (Ccp) Antibody Positive - 12/30/2017 Rheumatoid Factor Positive - 12/30/2017 Seropositive Rheumatoid Arthritis (Hcc) - 12/30/2017 Smokes and Motivated to Quit - 12/30/2017 Comment: Counseled on cessation Vitamin D Deficiency - 04/23/2017 PHYSICAL EXAMINATION: LMP 04/15/2017 (Approximate) Telephone visit Prior Test results discussed with patient. IMPRESSION/DIAGNOSIS: M05.9 Seropositive rheumatoid arthritis (HCC) (primary encounter diagnosis) E55.9 Vitamin D deficiency Z91.19 H/O noncompliance with medical treatment, presenting hazards to health Z71.89 Encounter for medication review and counseling Z71.2 Encounter to discuss test results Z71.89 Counseling on health promotion and disease prevention Z51.81, Z79.899 Encounter for monitoring leflunomide therapy Z51.81 Medication monitoring encounter M06.9 Rheumatoid arthritis flare (HCC) Rheumatoid Arthritis Sero-positive, RF, CCP Non-erosive Per Dr. Pandya last note At last visit the patient's Rheumatoid Arthritis appears to be active and worse since last visit and since being off DMARDs. She has not followed up since 2019. She has been off RA medications for 1.5 years. Stopped Arava and xejanz in 2019. She reports only took Xeljanz for the 30 day free supply. She did not follow up on the Xelsource program, was unclear when asked. With patient's drug addition history, would have to defer from self injectables and needles at home. Due to her problems with transportation and lives far, she is unable to receive IV infusions. She is planning to follow up with local cryogenics engineer closer to home. Until she has her apt, we offered assistance with her RA care and follow up apt. Advised we can only provide 1 month supply and will need f/u apt for recheck and refill for her safety. We also reviewed importance of follow up with her dentist to evaluate for painful tooth and exclude infection. Dental infections can be risk for Rheumatoid Arthritis flares as well as concerns for more serious infections. Patient has had multiple unfortunate social and psychologic factors over her lifetime. We are assisting with hospice social worker consult, also to help with adherence to health care and patient's social support, especially that now she is caring for her , as a single mother. Rheumatoid arthritis is active at todays visit. Due for inflixamab has sinus infection. Will hold 2 weeks. Increased pain Swelling of feet and elbow. Noticed improvement with inflixamab. Feels worse about week 6. Will increase dose and frequency for better disease control inflixamab 5mg/kg every 7 weeks . Child bearing age- had tubal ligation. Will start low dose arava 10mg daily to prevent immunogenicity. Vit d previously low completed rx wqill start vit d 2000 international unit(s) daily Patient happy with plan PLAN/RECOMMENDATIONS: No orders found for this visit on 10/29/21. labs with upcoming infusion Increase inflxiamab every 7 weeks 5mg/kg Start arava 10mg daily Hold if infection/ ill/ antibiotics Discussed medications dosage, usage, goals of therapy and side effects. Patient instructed to notify provider of any changes in medical condition. Patient in agreement and in understanding of plan. Follow up: I spent a total of 30 minutes on the date of the service which included preparing to see the patient, completing clinical documentation, obtaining and/or reviewing separately obtained history, performing a medically appropriate examination, and counseling and educating the patient/family/caregiver. Portions of this note have been copied from my previous note and have been updated to reflect today's visit note October 29, 2021 all reflect current medical decision making from date of this visit. 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 Recommendations to share with referring physician/Primary care physician : Dear Dr. Blake, I had the pleasure of seeing your patient, Mrs Ludwig. I have enclosed a copy of my clinic note with my assessment and recommendations for this patient. Recommendations for your consideration as you deem necessary: -Continuous follow up with Primary care physician for cardiovascular disease prevention, for age appropriate cancer screening and routine health maintenance and wellness, and infection precautions and age appropriate immunization recommended. Thank you for allowing me to participate in the care of your patient. 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 CC: Tino Blake MD documented in this encounter [facility] 10-28-2021 Miscellaneous Notes If pt calls back, please answer these questions. Since your last infusion, have you: Had any major change in your health (including new diagnosis of cancer, COPD or cogestive heart failure? Been hospitalized? Had any infections? Taking antibiotics/antivirals/antifungals for current infection? Had surgery or do you have upcoming surgery? Received any live vaccines in the last four weeks? Worsening GI symptoms/abnormal pain/bloating In the past 7 days have you had: Fevers/chills/night sweats? New cough or cold symptoms or sore throat? Nausea/vomiting/diarrhea? Unusual swelling of your ankles of feet? Burning/blood with urination or urinary frequency? New weakness/numbness/stumbling falls? New rash or open sores? If you answer yes to any of these questions, please give a brief explanation. documented in this encounter [facility] 10-07-2021 Note PROCEDURE: XR FOOT L T MIN 3 VIEWS HISTORY: Injury of left foot ; acute anterior left foot pain and swelling after injury; history of rheumatoid arthritis COMPARISON: None. FINDINGS: BONES:Destructive, erosive changes involving the head of the fifth metatarsal and base of the fifth proximal phalanx consistent with rheumatoid arthritis. Unremarkable appearance of remaining bones. No fracture or dislocation. SOFT TISSUES:No visible soft tissue swelling. EFFUSION:None visible. OTHER: Negative. IMPRESSION: 1. No acute bone abnormality. 2. Erosive changes involving the fifth metatarsophalangeal joint compatible with rheumatoid arthritis. No prior studies for comparison. Electronically authenticated by: TERESO HERNANDEZ Date: 2021-10-07 12:06 [facility] 09-05-2021 Note OPERATIVE NOTE OPERATION DATE: 09/05/2021 PROCEDURE: Bilateral laparoscopic salpingectomy. PREOPERATIVE DIAGNOSIS:: 1. Multiparity. 2. Desires permanent sterilization. POSTOPERATIVE DIAGNOSIS:: 1. Multiparity. 2. Desires permanent sterilization. ANESTHESIA: General. SURGEON: Patricio Ram D.O. TEST EQUIPMENT MECHANIC: AMANDA Negron URINE OUTPUT: Yellow and clear. BLOOD LOSS: 5 mL. SPECIMEN: Both tubes. FINDINGS: Normal appearing ovaries and tubes, slightly enlarged uterus. PROCEDURE: The patient was taken back to the Operating Room where she was given general anesthesia without difficulty. She was then prepped and draped in the normal sterile fashion after being placed in a dorsal lithotomy position. A wet sponge stick was placed into the patient's vagina. Attention was then turned to the patient's abdomen, where a scalpel was used to make a small infraumbilical incision. The S retractors were then used to dissect the underlying layers until the fascia could be seen. The fascia was then grasped with Zully clamps and tented up. A knife was then used to make a small incision to the fascia. The muscle was identified, at that time two sutures of #0 Vicryl on a GI needle was then used and placed through the fascia. The peritoneum was then identified and entered bluntly. The 10-4 Vivien was then placed into the patient's abdomen. This was confirmed with direct visualization of the bowel, using the laparoscope. The patient's abdomen was then insufflated using approximately 4 liters of CO2 gas. Survey of the patient's abdomen demonstrated ovaries were normal in appearance as well as both tubes and uterus. A second and third rt and lt lateral ports which were 7-8 and 5 mm in size, was then placed after the skin incision was made under direct visualization The patient's tube on the patient's right side was identified and tented up using a grasper, the LigaSure apparatus was then used to come across the mesosalpinx from the fimbriated end to the insertion site at the uterus, the tube was then amputated and removed in its entirety. This was done on the contralateral side. The tubes were the removed from the patient's abdomen. Excellent hemostasis was noted. The lateral ports were then moved under direct visualization with excellent hemostasis. All instruments were removed from the patient's abdomen. The fascia was closed using the #0 Vicryl on GI needle. The skin was closed using 4-0 Vicryl subcuticularly. All instruments were removed from the patient's vagina as well. The patient was taken out of the dorsal lithotomy position and placed in the supine position and taken to recovery in stable condition. Sponge, lap and needle counts were correct x2. : [facility] Signed and Approved by: DR PATRICIO RAM . 09/12/2021 08:16:00 [facility] 09-03-2021 History of Present illness Narrative Since your last infusion, have you: 1. Had any major change in your health (including new diagnosis of cancer, COPD or cogestive heart failure? No 2. Been hospitalized? No 3. Had any infections? No 4. Taking antibiotics/antivirals/antifungals for current infection? No 5. Had surgery or do you have upcoming surgery? No 6. Received any live vaccines in the last four weeks? No 7. Worsening GI symptoms/abnormal pain/bloating No In the past 7 days have you had: 1. Fevers/chills/night sweats? No 2. New cough or cold symptoms or sore throat? No 3. Nausea/vomiting/diarrhea? No 4. Unusual swelling of your ankles of feet? No 5. Burning/blood with urination or urinary frequency? No 6. New weakness/numbness/stumbling falls? No 7. New rash or open sores? No documented in this encounter [facility] 09-01-2021 Miscellaneous Notes I spoke to Sarah, she is coming for her infusion on 09-03-21. She states that she was on a z-pack for a URI, and that she has finished it 2 weeks ago. She was prescribed this from an ER visit in [place]. Pt states that she is feeling much better. documented in this encounter [facility] 08-07-2021 Miscellaneous Notes Spoke with patient Low potassium Please increase potassium in your diet: spinach, sweet potatoes, avocados, coconut water, dried fruits (dates and apricots), bananas, beans, acorn squash, mushrooms. Low vit d Will start rx Other labs acceptable range Labs in 1 month with infusion documented in this encounter [facility] 08-06-2021 History of Present illness Narrative Since your last infusion, have you: 1. Had any major change in your health (including new diagnosis of cancer, COPD or cogestive heart failure? No 2. Been hospitalized? No 3. Had any infections? No 4. Taking antibiotics/antivirals/antifungals for current infection? No 5. Had surgery or do you have upcoming surgery? No 6. Received any live vaccines in the last four weeks? No 7. Worsening GI symptoms/abnormal pain/bloating No In the past 7 days have you had: 1. Fevers/chills/night sweats? No 2. New cough or cold symptoms or sore throat? No 3. Nausea/vomiting/diarrhea? No 4. Unusual swelling of your ankles of feet? No 5. Burning/blood with urination or urinary frequency? No 6. New weakness/numbness/stumbling falls? No 7. New rash or open sores? No documented in this encounter [facility] 07-23-2021 History of Present illness Narrative Since your last infusion, have you: 1. Had any major change in your health (including new diagnosis of cancer, COPD or cogestive heart failure? No 2. Been hospitalized? No 3. Had any infections? No 4. Taking antibiotics/antivirals/antifungals for current infection? No 5. Had surgery or do you have upcoming surgery? No 6. Received any live vaccines in the last four weeks? No 7. Worsening GI symptoms/abnormal pain/bloating No In the past 7 days have you had: 1. Fevers/chills/night sweats? No 2. New cough or cold symptoms or sore throat? No 3. Nausea/vomiting/diarrhea? No 4. Unusual swelling of your ankles of feet? No 5. Burning/blood with urination or urinary frequency? No 6. New weakness/numbness/stumbling falls? No 7. New rash or open sores? No documented in this encounter [facility] 07-23-2021 Instructions 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 - 07/23/2021 9:08 AM EDT -PLEASE NOTE THAT WE REVIEW ALL YOUR TEST RESULTS AT YOUR NEXT FOLLOW UP VISIT WITH YOU. IF ANY ABNORMAL LAB REQUIRES SOONER ATTENTION, WE WILL CONTACT YOU. -If you have signed up on TrendMD, we will release your test results through TrendMD. - Vitamin D : vitamin D3: 2000 international units daily over the counter, with a meal - Please take your vitamin D with dinner or a handful of raw unsalted Almonds for best absorption. Vitamin D is a fat soluble vitamin that requires it be taken with good fat to be absorbed. - Your calcium is sufficient in your diet These include nuts, seeds, legumes/beans, peas, dark green leafy vegetables, plant based milk Additional calcium rich foods listed below - Soaking Almonds overnight in the fridge with drinking water, can help with softening the almonds and improved absorption of the almonds. - A whole plant based diet and healthy lifestyle have been reported to be optimal for bone health and prevention of bone loss Recommendations for healthy lifestyle include: Healthy nutritious diet, anti-inflammatory diet, appropriate exercise, good sleep hygiene, stress management, supplementing vital deficiencies and maintaining healthy weight. with BMI <26. 5 points to remember to improve your health and continue on a healthy path: 1- Optimal nutritious food, such as a Whole Plant Based diet You can watch the movie that features the Whole Plant Based diet, [place] over knives (see video online and visit website). Another movie that was recently released is: Eating You Alive (you can find it at Traity) Dr. Lisa Armando is a [facility] physician who is an expert in Whole Plant based diet. His website is Redux. His research work highlighted the benefits of Whole plant based diet in reversing and preventing heart disease. Consider reading Curly Armando: The Engine 2 Diet, cookbook Mrs. Armando (his ) has a cookbook with many recipes on whole plant based food: The Prevent and Reverse Heart Disease cookbook. Dr. Stephen Martinez, has a website and free keisha to help get started on a whole plant based diet, at Pagar.me and the free keisha is 21-Day Vegan Kickstart with meals and recipes to follow. He has multiple free videos and YouTube, for example: [email or web address].Posmetrics/[email or web address] , [email or web address]/[email or web address] Dr. Gordy Farrell has proven starch diet whole plant based and benefit to his Rheumatoid Arthritis patients, his website: Ascentis.Strap Dr. Maira Bertrand is a renowned atmospheric scientist, who has studied and researched the benefits of the Whole plant based diet. He has also researched the adverse effects of animal proteins on health. He presents many of his research findings in his book The [place] study. Dr. Maurilio Xie has completed many research trials proving the reversal of diseases with healthy lifestyle and the Whole Plant based diet. Dr. Maurilio Xie website is: Nuroa.Strap UnDo It a new book by Dr. Maurilio Thomas has dedicated a website and additional time to reviewing all food related articles and research and presents them in his power point presentation and on his website at: nutritionfacts.org Dr. Thomas has multiple free videos and YouTube, for example https://youLakoou.be/aSgNkhgVtks and [email or web address].[email or web address]. Also, you could find additional information by reading or watching online and YouTube such as: Head Of Sales And Marketing RAIMUNDO, Cooking With Plants, The Vegan Corner (recipes from an Syrian Head Of Sales And Marketing), and visiting the provided websites for additional information on the whole plant based benefit and cooking recipes. The Whole Foods Plant Based Cooking Show Athletes such as Kelvin Kan, Antonio Guillermo, Shaheen Mooney YouTube Guilt Free Shaheen Monoey YouTube Guilt Free TV and Hua with [employer]. Goodbye Lupus by Kandi Leonard M.D If you suspect you are gluten sensitive or intolerant, consider gluten free diet. Gluten could lead to increased inflammation in the bowels and body in certain patients. Consider organic and non-GMO products when shopping for your food. GMO are genetically modified food that may have adverse impact on our health. 2- Regular Exercise, i.e. beginner yoga Come As You Are: YOGA - Gentle Yoga Anyone Can Do Anywhere www.[employer]Strap/yo ga landon chi, stretching, cardio, gradual strengthening, pool therapy, physical therapy 3- Good Sleep (poor sleep impacts everything, recommended sleep is 7.5 to 8 hrs. a night). Meditation and relaxation techniques have shown to help with improving sleep. 4- Stress management, staying positive, be happy, laugh often (it is a great medicine) Find time to relax and meditate if possible. Following steps 1-3 will help with this as well. In psychiatric disorders, it is important to follow with a professional on the optimal management of depression, anxiety or psychiatric illness 5- Supplementing necessary vitamins and minerals, correcting any deficiencies, i.e. Vitamin D, B12, omega-3 fatty acids etc... Go natural when possible If you are following a Whole plant based diet, it is recommended to take Vitamin B12, sublingual, dissolve under the tongue, take once daily. Vitamin B12 is available over the counter, dose could be 2500 mcg, and can be taken once a week, and if your blood levels are low, you may need to take it once daily or a higher dose. Raw: Garlic, Cilantro, [place] nuts, Pumpkin seeds, [place] seeds and Flax seed powder have been reported to help with certain metal detoxification such as mercury. [place]-3 plant based sources: rachana seeds, flax seed powder, flax milk, walnuts. Turmeric can be found natural, used as the spice powder or the root with your food. This is also available as a capsule. Sweet cherries (raw cleaned or frozen) and Turmeric have anti-inflammatory benefit Start reviewing the Whole Plant Based Diet, by watching [place] over myTAG.com movie and then review website. There are many other resources and educational information on the Whole plant based diet on the Internet and documentaries. There are other resources for wellness that you can also benefit from, such as the [facility] Wellness website, [facility]org and includes the Mediterranean heart healthy diet and yoga and meditation. Please avoid all dairy products. You could use non-dairy milk such as Flax milk, Cashew milk, [place] milk, Rice milk, Oat milk or Hemp milk, instead. It is very important to avoid all: refined sugars (including high fructose syrup), refined carbohydrates, any artificial sweeteners and artificial preservatives, and soda and processed food. Insure adequate hydration; drink at least 6 to 8 cups of water daily Examples of Smoothies: Every morning you can start your day with a healthy natural anti-inflammatory smoothie, for example, you can blend: fresh or frozen sweet cherries, half a root of turmeric (1 to 2 inches), banana, blue berries, walnuts, few leaves of kale, add flax milk (or almond milk), and enjoy. You could add half an avocado if you like it smoother. If you do not tolerate walnuts, you can use flax seeds, rachana seeds or hemp seeds instead. If you do not like plant based milk, you can use coconut water or plain water instead. Other smoothies, including green smoothies, are also very healthy and highly anti-inflammatory. For example fruits (such as banana or frozen anurag or pineapple) and add significant amount of leafy greens, then add water or coconut water and blend until smooth. You can also add turmeric in this recipe. GENERAL INFORMATION ON BONE HEALTH : -Bone Density testing (DXA scan) as recommended. -Vitamin D supplementation is recommended, unless blood levels are sufficient. Recommended daily dose of 1000 to 2000 IU total a day, or the dose necessary to achieve a Vitamin D 25-OH blood level of >31 and preferably closer to 40-60 ng/mL. Vitamin D pills are available over the counter. -Recommended daily dose of calcium: 1200mg total a day in divided doses. Calcium is usually sufficient in our regular diet, also available in multivitamins. Patients on certain dietary restrictions or those unable to meet their daily calcium by diety alone, may require calcium supplements. For patient with history of calcium kidney stones, Calcium Citrate would be the recommended supplement. It is recommended to avoid caclium carbonate supplement in this case, as these may increase risk of calcium kidney stones. The after visit summary has information on dietary calcium and instructions on reading calcium label and converting the %DV to mg. When you read a food label and you see calcium reported as DV %, add a zero and this will provide you with the approximate mg value of the calcium content in this food. For example, if a glass of almond milk is labeled as 40% calcium DV, then this contains 400 mg of calcium. For additional information, please see references provided. -Regular weight-bearing and muscle-strengthening exercise -Avoidance of tobacco smoking, excessive alcohol intake and excessive caffeine intake. -Fall and fracture precautions -It is recommend to continue regular follow up visits with your dentist every 6 months, and continue with good oral hygiene. Calcium: If your diet is sufficient in Calcium rich food, you will not need calcium supplement. Calcium Citrate is the preferred calcium if you have had kidney stones. Daily recommended calcium dose: 600mg twice a day with meals. Adequate calcium ingestion is essential for maintaining healthy bones. The recommended dose daily intake of calcium varies depending on individual needs but is usually between 1200 and 1500mg daily, preferably around 1200mg a day in divided dose (not all taken at once). This is equivalent to about five 8oz glasses of milk per day. Many foods are rich in calcium and they include: - Plant based, non-dairy, calcium rich products, include nuts, almond milk, beans, lentils - Vegetables and Fruit: bok-gilbert, turnips, broccoli, kale, collards, - Dairy products: milk, cheese, yogurt, ice-cream - Fish products: canned salmon, sardines and shrimp - Cereals and nuts: almonds, sesame seeds, fortified cereals and oatmeal - Other foods: fortified orange-juice, figs, soybeans, other beans and eggs. If you have a low calcium diet and cannot tolerate calcium-rich foods, many supplements are available today. Your pharmacist can help you choose the one which best suits your needs. A few tips on supplements: - They should be easy to swallow - They should dissolve easily in cup of vinegar in < 15 minutes. - Count the ELEMENTAL calcium mgs. E.g. Calcium 499mg may have only 221mg of elemental Calcium. - Calcium citrate is the calcium supplement to take if you have had kidney stones and unable to meet your calcium requirements from food/diet alone. - There is such a variety today that it is best to bring in the bottle to your doctor to show them exactly what you are taking. Lastly too much calcium can be bad for you. Recent studies show extra supplements may increase your risk of kidney stones or cause high calcium levels in some people. You should discuss how much you should be taking with your doctor before starting them. Further Information is available from the following resources: www.nof.org (National Osteoporosis Foundation) http://www.osteo.org/osteolinks.as p [employer]: 9-554-905-BONE The Calcium Information Kamiah: Non-Dairy, Plant based Milk, contain 1 glass = 450 mg of calcium Exampled include Flax Milk, [place] Milk, Cashew Milk Examples of Food Sources of Calcium from [facility] Food Milligrams (mg) per serving Percent DV* Soymilk, calcium-fortified, 8 ounces 299 30 King juice, calcium-fortified, 6 ounces 261 26 Tofu, firm, made with calcium sulfate, cup* 253 25 Tofu, soft, made with calcium sulfate, cup* 138 14 Vuoqo-le-fjv cereal, calcium-fortified, 1 cup 100 1,000 10 100 Turnip greens, fresh, boiled, cup 99 10 Kale, raw, chopped, 1 cup 100 10 Kale, fresh, cooked, 1 cup 94 9 Albanian cabbage, bok gilbert, raw, shredded, 1 cup 74 7 Bread, white, 1 slice 73 7 Tortilla, corn, wijjx-yw-iqda/mcgee, one 6 diameter 46 5 Tortilla, flour, peitw-yq-goob/mcgee, one 6 diameter 32 3 Bread, whole-wheat, 1 slice 30 3 Broccoli, raw, cup 21 2 * DV = Daily Value. DVs were developed by the U.S. Food and Drug Administration to help consumers compare the nutrient contents among products within the context of a total daily diet. The U.S. Department of Agriculture s (USDA s) Nutrient Database Web site lists the nutrient content of many foods and provides comprehensive list of foods containing calcium arranged by nutrient content and by food name. *Calcium content varies slightly by fat content; the more fat, the less calcium the food contains. * Calcium content is for tofu processed with a calcium salt. Tofu processed with other salts does not provide significant amounts of calcium. You could acces this information online at: http://ods.od.nih.gov/factsheets/C [facility]/ Vitamin D: Vitamin D3= cholecalciferol, available over the counter. Dose recommended 800 to 1000 iu daily with a meal; Certain patients required 7764-5707 iu daily and in patients deficient in Vitamin D, they require higher dosages. Certain patient requires higher dose, depending on their Vit D blood levels. Vitamin D is essential for calcium metabolism. It is really a hormone produced mainly in your skin after exposure to sunlight. Vitamin D helps you absorb calcium from your stomach and kidneys and incorporates it into your bones. Studies show approximately 50% of [place] men and women are vitamin D deficient in the winter. Milder cases of vitamin D are usually asymptomatic so the only way to know you have a problem is to have a blood level checked. More severe cases can cause osteomalacia (a.k.a. rickets) which can result in bone pain, weak bones and several abnormal laboratory tests and also weak muscles (a.k.a. myopathy). When this happens, your bones lose a lot of their calcium stores as the body tries to regulate the calcium required by other tissues. Prolonged deficiency can lead to severe bone disorders and fractures. Unlike calcium, dietary sources of vitamin D are rare, limited to a few fish oils particularly cod-liver oil, other fortified foods and egg yolks. Often supplementation is needed. Many multivitamins contain some vitamin D and vitamin D alone preparations are now available in several forms. The recommended daily intake of vitamin D used to be 400 and 800 international units, however, it is now known that larger amounts are needed, as discussed above. Your doctor can prescribe prescription strength vitamin D for you if necessary, if you have marked deficiency or diseases of the liver or kidney. Supplementation in patients with severe deficiency can stabilize or improve bone mineral density and in frail elderly persons, may reduce their risk of falling. Additional Information is available from: www.nof.org (the national osteoporosis foundation) http://www.[facility].org/art hritis/osteo/info.htm http://ods.od.nih.gov/factsheets/v itamind.asp National Institutes of Health: 1-049-158-BONE The Calcium Information Kamiah: Thank you for choosing [facility] for your healthcare. Sincerely, 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 documented in this encounter [facility] 07-23-2021 History of Present illness Narrative FOLLOW UP VISIT- virtual PCP: Tino Blake MD [address] [place] [address] Ms. Ludwig is a 36 year old patient here today for follow up of RA Interim History: Doing well Here for infusion Wrists started pain last night L>R Swelling b/l wrist Can not extend right elbow No infections no atb Am stiffness Recent and and went into remission while Now starting to increase symptoms Not breast feeding REVIEW OF SYSTEMS: Review of Systems CONSTITUTION: Negative for: Weight loss or gain, Fever. Chills, Night sweats HEENT: Negative for: Nosebleeds, Mouth sores, Trouble swallowing, Dry mouth RESPIRATORY: Negative for: Cough, Shortness of breath, Pain with breathing, Coughing up blood GASTROINTESTINAL: Negative for: Melena, Diarrhea, Abdominal pain, Heartburn, MUSCULOSKELETAL: Positive for: Arthralgias, Joint swelling and Morning Joint Stiffness Negative for: Muscle weakness NEUROLOGICAL: Positive for: Numbness (numbness in right hand where she has inflammation, none on exam ) SKIN: Negative for: Rashes, Sun sensitive rashes, Skin color changes, Hair loss, Nail changes EYES: Negative for: Eye pain, Eye redness, Visual disturbance, Eye dryness CARDIOVASCULAR: Negative for: Chest pain, Leg swelling, Arrhythmia, Presyncope GENITOURINARY: Negative for: Dysuria, Hematuria, Ulceration HEMATOLOGIC/LYMPHATIC: Negative for: Swollen glands Past Medical Hx, Past Surgical Hx. Social Hx and Family Hx: unchanged ACTIVE PROBLEM LIST Cyclic Citrullinated Peptide (Ccp) Antibody Positive - 12/30/2017 Rheumatoid Factor Positive - 12/30/2017 Seropositive Rheumatoid Arthritis (Hcc) - 12/30/2017 Smokes and Motivated to Quit - 12/30/2017 Comment: Counseled on cessation Vitamin D Deficiency - 04/23/2017 PHYSICAL EXAMINATION: BP 122/78 Pulse 66 Wt 74.4 kg (164 lb) LMP 04/15/2017 (Approximate) BMI 25.69 kg/m GENERAL: alert and appropriate, in no distress, well-hydrated, well nourished and happy, smiling, interactive SKIN: no rash noted HEAD: normocephalic, no abnormality or lesion noted EYES: no injection and visual acuity is grossly normal EARS: hearing grossly normal No apparent nasal bridge collapse, no cartilage swelling, no parotid gland swelling. NOSE: external nose normal without rhinorrhea OROPHARYNX: moist mucus membranes NECK: full ROM, no cervical LNs noted RESPIRATORY: breathing non-labored CHEST: equal chest rise with normal respiratory effort ABDOMEN: soft and non-tender MUSCULOSKELETAL : nodules on b/l wrist unchanged no apparent joint effusion or synovitis Swollen joints- b/l wrists Tender joints - b/l wrists No tenderness with percussion over long bones-femur/tibia b/l EXTREMITIES: FROM NEUROLOGIC: no obvious deficit Prior Test results discussed with patient. IMPRESSION/DIAGNOSIS: M05.9 Seropositive rheumatoid arthritis (HCC) (primary encounter diagnosis) Z51.81 Medication monitoring encounter Z91.19 H/O noncompliance with medical treatment, presenting hazards to health Z71.89 Encounter for medication review and counseling Z71.2 Encounter to discuss test results Z71.89 Counseling on health promotion and disease prevention Z51.81, Z79.899 Encounter for monitoring leflunomide therapy Rheumatoid Arthritis Sero-positive, RF, CCP Non-erosive Per Dr. Pandya last note At last visit the patient's Rheumatoid Arthritis appears to be active and worse since last visit and since being off DMARDs. She has not followed up since 2019. She has been off RA medications for 1.5 years. Stopped Arava and xejanz in 2019. She reports only took Xeljanz for the 30 day free supply. She did not follow up on the [employer] program, was unclear when asked. With patient's drug addition history, would have to defer from self injectables and needles at home. Due to her problems with transportation and lives far, she is unable to receive IV infusions. She is planning to follow up with local cryogenics engineer closer to home. Until she has her apt, we offered assistance with her RA care and follow up apt. Advised we can only provide 1 month supply and will need f/u apt for recheck and refill for her safety. We also reviewed importance of follow up with her dentist to evaluate for painful tooth and exclude infection. Dental infections can be risk for Rheumatoid Arthritis flares as well as concerns for more serious infections. Patient has had multiple unfortunate social and psychologic factors over her lifetime. We are assisting with hospice social worker consult, also to help with adherence to health care and patient's social support, especially that now she is caring for her infant, as a single mother. Rheumatoid arthritis is active at todays visit. Here to start inflixamab. Child bearing age- risk for . She is planning a tubal ligation in the future. At that time may consider arava/ mtx to prevent immunogenicity. preg test neg. Hep panel and tb up to date. Not breast feeding. no procedures planned, no s/s of infections and no antibiotics. PLAN/RECOMMENDATIONS: Office Visit on 07/23/21 CBC + DIFF COMP METABOLIC PANEL HCG QUAL UR B/O labs with upcoming infusion Loading doses of inflixamab 0,2,6 then every 8 weeks Discussed medications dosage, usage, goals of therapy and side effects. Patient instructed to notify provider of any changes in medical condition. Patient in agreement and in understanding of plan. Follow up: 2 month for medication monitoring I spent a total of 32 minutes on the date of the service which included preparing to see the patient, jtvq-hj-hyvy patient care, completing clinical documentation, obtaining and/or reviewing separately obtained history, performing a medically appropriate examination, counseling and educating the patient/family/caregiver, ordering medications, tests, or procedures, communicating with other HCPs (not separately reported) and independently interpreting results (not separately reported). Portions of this note have been copied from my previous note and have been updated to reflect today's visit note June all reflect current medical decision making from date of this visit. 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 Recommendations to share with referring physician/Primary care physician : Dear Dr. Blake, I had the pleasure of seeing your patient, Mrs Ludwig. I have enclosed a copy of my clinic note with my assessment and recommendations for this patient. Recommendations for your consideration as you deem necessary: -Continuous follow up with Primary care physician for cardiovascular disease prevention, for age appropriate cancer screening and routine health maintenance and wellness, and infection precautions and age appropriate immunization recommended. Thank you for allowing me to participate in the care of your patient. 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 CC: Tino Blake MD documented in this encounter [facility] 07-22-2021 Miscellaneous Notes Patient called back stating that she will be hear for her infusion tomorrow. Patient can be reached at [phone]. Please advise. I left a message for Any to please give us a call, and let us know that she will be coming for her infusion. I instructed her that we need to have contact with her, and know that she is well, and that she is coming or her medication will not be here 07-23-21, and she will be cancelled. documented in this encounter [facility] 07-18-2021 Miscellaneous Notes Sent pt a Blog[employer] message. Attempted to contact patient Unable to leave message as voicemail is full No alternate number to try Please try again later Attempted number on file. No answer, unable to leave a message. I then attempted to reach number on file [phone] & she states there is nobody by the name Any at that phone number. Becki Torres MA Please call and update patient reflexis infusion approved. Please remind patient to complete labs this week thanks documented in this encounter [facility] 07-10-2021 Miscellaneous Notes Per Chilo, initial review Erika cordero- non-compliance will not meet the payer medical necessity requirement for not being on Methotrexate while on Renflexis. Do you know if pt is breast feeding? That may meet the medical necessity requirement to not be on MTX since it is excreted in breast milk per Erika. She will continue to pend this request until she hears back. Please advise, thanks! Chilo Rx [phone] Patient has been on mtx and arava previously - non compliance issues- patient does not consistently take and flared and became on medication- too high risk Can monitor compliance with iv infusion in office Will monitor HCG We can start at 3mg/ kg+ 200mg with week 0,2,6 Plan to start remicade as monotherapy if tolerated then may add arava in future to prevent immunogenicity. Arnel - Please adjust plan === PHARMACY TEAM ==== ADDITIONAL INFORMATION NEEDED/REQUESTED Case Submitted: Yes Request Type: Provider Date of Service: 07.23.21 Additional Information Needed: 1. Methotrexate is required to be taken concurrently with Renflexis per payer unless it is contraindicated or has a documented intolerance with specifics about the contraindication or intolerance. 2. Confirm dosing, currently ordered as Induction 331 mg D1, 15. Payer previously approved as 200mg Qweek 0, 2, 6 then every 8. They are asking why it is not that again? Request from Payor by: Phone [facility] [phone] Email Sent to: TE encounter Requested Clinicals/Information Sent: N/A documented in this encounter [facility] 06-26-2021 Miscellaneous Notes Fax received and placed on providers desk for review Called jenifer Spoke with Jaclyn Haider P2P was denied due to patient not trying and failed Renflexis Will fax over the denial letter Fax number provided Please watch for fax After waiting on hold for 15 minutes due to hold time being longer than usual. I left a call back number to call back when it is my turn in line to receive a call back. Becki Torres MA Received denial that came back yesterday. Will call Jenifer to find out if this was a denial before or after the P2P. Becki Torres MA Received a fax from denial for Serg Clark. Given to Fariba for review. Becki Torres MA [facility] documented in this encounter [facility] 06-17-2021 Miscellaneous Notes Patient has been scheduled as requested for 06/20/21. I spoke with Ms. Ludwig and she is aware of all of the appointment details. Bailey Walker PSS June 17, 2021 11:56 AM Pt aware. Please call to schedule pt for lab as pt requested an apt. Thanks. Becki Torres MA ----- Message from 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 sent at 06/16/2021 4:27 PM EDT ----- Please call patient and review documented in this encounter [facility] 09-15-2020 Hospital Discharge instructions Loida Caro PA-C - 09/15/2020 Call to arrange follow-up with primary care for repeat check within 24 to 48 hours. If you go home develop a high fever or worsening symptoms do not hesitate to return to the ER immediately. The following attachments cannot be sent through Care Everywhere.Pneumonia (Scottish)documented in this encounter [employer] Phone: Evaluation note Diagnosis Pneumonia of both lungs due to infectious organism, unspecified part of lung- Primary documented in this encounter [employer] Phone: evaluation note* Diagnosis Right upper quadrant abdominal pain Abdominal pain, right upper quadrant documented in this encounter [employer] Phone: evaluation note* Diagnosis Seropositive rheumatoid arthritis (HCC)- Primary Rheumatoid arthritis documented in this encounter [facility] note* Diagnosis Seropositive rheumatoid arthritis (HCC)- Primary Rheumatoid arthritis Medication monitoring encounter Encounter for therapeutic drug monitoring H/O noncompliance with medical treatment, presenting hazards to health Personal history of noncompliance with medical treatment, presenting hazards to health Encounter for medication review and counseling Other specified counseling Encounter to discuss test results Other specified counseling Counseling on health promotion and disease prevention Other specified counseling Encounter for monitoring leflunomide therapy Encounter for therapeutic drug monitoring documented in this encounter [facility] note* Diagnosis Seropositive rheumatoid arthritis (HCC)- Primary Rheumatoid arthritis Vitamin D deficiency Unspecified vitamin D deficiency documented in this encounter [facility] note* Diagnosis Seropositive rheumatoid arthritis (HCC)- Primary Rheumatoid arthritis Vitamin D deficiency Unspecified vitamin D deficiency documented in this encounter [facility] note* Diagnosis Dermatomyositis (HCC)- Primary Dermatomyositis Seropositive rheumatoid arthritis (HCC) Rheumatoid arthritis Vitamin D deficiency Unspecified vitamin D deficiency [facility] Diagnosis Seropositive rheumatoid arthritis (HCC)- Primary Rheumatoid arthritis Vitamin D deficiency Unspecified vitamin D deficiency H/O noncompliance with medical treatment, presenting hazards to health Personal history of noncompliance with medical treatment, presenting hazards to health Encounter for medication review and counseling Other specified counseling Encounter to discuss test results Other specified counseling Counseling on health promotion and disease prevention Other specified counseling Encounter for monitoring leflunomide therapy Encounter for therapeutic drug monitoring Medication monitoring encounter Encounter for therapeutic drug monitoring Rheumatoid arthritis flare (HCC) Rheumatoid arthritis [facility] Diagnosis Seropositive rheumatoid arthritis (HCC)- Primary Rheumatoid arthritis Vitamin D deficiency Unspecified vitamin D deficiency [facility] Diagnosis Seropositive rheumatoid arthritis (HCC)- Primary Rheumatoid arthritis Smoker Tobacco use disorder Pain in left foot Pain in limb Encounter for medication review and counseling Other specified counseling Encounter to discuss test results Other specified counseling Encounter for monitoring leflunomide therapy Encounter for therapeutic drug monitoring Counseling on health promotion and disease prevention Other specified counseling High risk medication use Encounter for long-term (current) use of other medications Rheumatoid arthritis flare (HCC) Rheumatoid arthritis [facility] Diagnosis Vitamin D deficiency- Primary Unspecified vitamin D deficiency Seropositive rheumatoid arthritis (HCC) Rheumatoid arthritis [facility] Diagnosis Seropositive rheumatoid arthritis (HCC)- Primary Rheumatoid arthritis [facility] Diagnosis Seropositive rheumatoid arthritis (HCC)- Primary Rheumatoid arthritis [facility]* Diagnosis Seropositive rheumatoid arthritis (HCC) Rheumatoid arthritis [facility] Diagnosis Seropositive rheumatoid arthritis (HCC)- Primary Rheumatoid arthritis Vitamin D deficiency Unspecified vitamin D deficiency Smoker Tobacco use disorder Pain in left foot Pain in limb Encounter for medication review and counseling Other specified counseling Encounter to discuss test results Other specified counseling Encounter for monitoring leflunomide therapy Encounter for therapeutic drug monitoring Counseling on health promotion and disease prevention Other specified counseling High risk medication use Encounter for long-term (current) use of other medications [facility] Diagnosis Seropositive rheumatoid arthritis (HCC)- Primary Rheumatoid arthritis Vitamin D deficiency Unspecified vitamin D deficiency documented in this encounter [facility] note* Diagnosis Vitamin D deficiency Unspecified vitamin D deficiency documented in this encounter [facility] note* Diagnosis Seropositive rheumatoid arthritis (HCC)- Primary Rheumatoid arthritis documented in this encounter [facility] note* Diagnosis Seropositive rheumatoid arthritis (HCC)- Primary Rheumatoid arthritis Vitamin D deficiency Unspecified vitamin D deficiency documented in this encounter [facility] note* Diagnosis Seropositive rheumatoid arthritis (HCC)- Primary Rheumatoid arthritis documented in this encounter [facility] note* Diagnosis Seropositive rheumatoid arthritis (HCC) Rheumatoid arthritis documented in this encounter [facility] note* Diagnosis Seropositive rheumatoid arthritis (HCC)- Primary Rheumatoid arthritis Synovitis Synovitis and tenosynovitis, unspecified Vitamin D deficiency Unspecified vitamin D deficiency Encounter for monitoring leflunomide therapy Encounter for therapeutic drug monitoring Encounter for medication review and counseling Other specified counseling Encounter to discuss test results Other specified counseling Counseling on health promotion and disease prevention Other specified counseling Smoker Tobacco use disorder documented in this encounter [facility] note* Diagnosis Seropositive rheumatoid arthritis (HCC)- Primary Rheumatoid arthritis Vitamin D deficiency Unspecified vitamin D deficiency Synovitis Synovitis and tenosynovitis, unspecified documented in this encounter [facility] note* Diagnosis Smokes and motivated to quit- Primary Tobacco use disorder Seropositive rheumatoid arthritis (HCC) Rheumatoid arthritis documented in this encounter [facility] note* Diagnosis Seropositive rheumatoid arthritis (HCC)- Primary Rheumatoid arthritis documented in this encounter [facility] note* Diagnosis Seropositive rheumatoid arthritis (HCC)- Primary Rheumatoid arthritis documented in this encounter [facility] note* Diagnosis Seropositive rheumatoid arthritis (HCC) Rheumatoid arthritis documented in this encounter [facility] note* Diagnosis Seropositive rheumatoid arthritis (HCC)- Primary Rheumatoid arthritis documented in this encounter [facility] note* Diagnosis Seropositive rheumatoid arthritis (HCC)- Primary Rheumatoid arthritis Pain in right foot Pain in limb Encounter for monitoring leflunomide therapy Encounter for therapeutic drug monitoring Encounter for medication review and counseling Other specified counseling Synovitis Synovitis and tenosynovitis, unspecified Vitamin D deficiency Unspecified vitamin D deficiency Medication monitoring encounter Encounter for therapeutic drug monitoring Encounter to discuss test results Other specified counseling documented in this encounter [facility] note* Diagnosis Seropositive rheumatoid arthritis (HCC)- Primary Rheumatoid arthritis documented in this encounter [facility] note* Diagnosis Seropositive rheumatoid arthritis (HCC)- Primary Rheumatoid arthritis documented in this encounter [facility] note* Diagnosis Seropositive rheumatoid arthritis (HCC)- Primary Rheumatoid arthritis Localized superficial swelling, mass, or lump documented in this encounter [facility] note* Diagnosis Seropositive rheumatoid arthritis (HCC)- Primary Rheumatoid arthritis Localized superficial swelling, mass, or lump Encounter for medication review and counseling Other specified counseling Synovitis Synovitis and tenosynovitis, unspecified Encounter to discuss test results Other specified counseling Medication monitoring encounter Encounter for therapeutic drug monitoring Smoker Tobacco use disorder documented in this encounter [facility] note* Diagnosis Seropositive rheumatoid arthritis (HCC)- Primary Rheumatoid arthritis Vitamin D deficiency Unspecified vitamin D deficiency documented in this encounter [facility] note* Diagnosis Wheezing- Primary documented in this encounter [facility] note* Diagnosis Seropositive rheumatoid arthritis (HCC)- Primary Rheumatoid arthritis Synovitis Synovitis and tenosynovitis, unspecified Vitamin D deficiency Unspecified vitamin D deficiency Localized superficial swelling, mass, or lump Encounter to discuss test results Other specified counseling Encounter for medication review and counseling Other specified counseling Medication monitoring encounter Encounter for therapeutic drug monitoring documented in this encounter [place] for referral (narrative)* Diagnostic Procedure Only (Routine) - Authorized Specialty Diagnoses / Procedures Referred By Contac t Referred To Contact XR IMAGING Diagnoses Seropositive rheumatoid arthritis (HCC) Procedures XR FOOT GENERAL 3V AP/LAT/OBL BILATERAL RADEX FOOT COMPLETE MINIMUM 3 VIEWS 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 [address] [place] [address] Xr Imaging Referral ID Status Reason Start Date Expiration Date Visits Requested Visits Authorized [id number] Authorized Auto-Generat ed Referral 02/24/2022 03/26/2023 [facility] Diagnostic Procedure Only (Routine) - Pending Review Specialty Diagnoses / Procedures Referred By Contac t Referred To Contact XR IMAGING Diagnoses Seropositive rheumatoid arthritis (HCC) Procedures XR FOOT GENERAL 3V AP/LAT/OBL BILATERAL RADEX FOOT COMPLETE MINIMUM 3 VIEWS Fariba Hill APRN.CNP [address] [facility] [place] [address] Xr Imaging Referral ID Status Reason Start Date Expiration Date Visits Requested Visits Authorized [id number] Pending Review Auto-Generat ed Referral 02/28/2022 03/30/2023 1 1 [place] for referral (narrative)* Diagnostic Procedure Only (Routine) - Pending Review Specialty Diagnoses / Procedures Referred By Contac t Referred To Contact XR IMAGING Diagnoses Seropositive rheumatoid arthritis (HCC) Procedures XR FOOT GENERAL 3V AP/LAT/OBL BILATERAL RADEX FOOT COMPLETE MINIMUM 3 VIEWS 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 [address] [place] [address] [place] [address] Referral ID Status Reason Start Date Expiration Date Visits Requested Visits Authorized [id number] Pending Review Auto-Generat ed Referral 10/22/2022 11/21/2023 1 1 [place] for referral (narrative)* Diagnostic Procedure Only (Routine) - Pending Review Specialty Diagnoses / Procedures Referred By Contac t Referred To Contact US IMAGING Diagnoses Seropositive rheumatoid arthritis (HCC) Localized superficial swelling, mass, or lump Procedures US EXTREMITY MASS/FLUID COLLECTION LEFT 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 [address] [place] [address] [place] [address] Referral ID Status Reason Start Date Expiration Date Visits Requested Visits Authorized [id number] Pending Review Auto-Generat ed Referral 04/28/2023 05/27/2024 1 1 [facility] Discharge Instructions * Instructions* Loida Caro PA-C - 12/03/2018 Pelvic rest which means nothing into the vagina until you are seen in follow-up. Call to arrange follow-up with Tosha Viera on Wednesday you need to have blood pressure checks. If you go home develop any new bleeding do not hesitate to return to the emergency room. * Attachments The following attachments cannot be sent through Care Everywhere. * Candidiasis (Scottish) * Miscarriage: Threatened (Scottish) documented in this encounter* Instructions* Loida Caro PA-C - 01/28/2019 Use ice rest keep wrist in splint. Follow-up with orthopedic provider listed below for further evaluation of continued pain. * Attachments The following attachments cannot be sent through Care Everywhere. * Carpal Tunnel Syndrome (Scottish) documented in this encounter* Instructions* Tami Payne RN - 05/02/2019 Outpatient Instructions for IM or Subcutaneous Injections [address] [place] [address] You are advised to carry out the following instructions: Diet: As prescribed by your physician. Activity: As prescribed by your physician. Care of the injection site: If your injection site becomes red, sore, swollen, painful,has drainage, or you develop a fever notify your Physician. Other: ? If you develop hives, rash, itching or have trouble breathing or any unusual symptoms, go to the nearest Emergency Room. These could be signs of an allergic reaction to the medication. Follow up appointment: ANY PROBLEMS OR CONCERNS FOLLOW UP WITH YOUR PHYSICIAN OR GO TO THE NEAREST EMERGENCY ROOM documented in this encounter* Instructions* Niya Vigil RN - 05/04/2019 Outpatient Instructions for IM or Subcutaneous Injections [address] [place] [address] You are advised to carry out the following instructions: Diet: As prescribed by your physician. Activity: As prescribed by your physician. Care of the injection site: If your injection site becomes red, sore, swollen, painful,has drainage, or you develop a fever notify your Physician. Other: ? If you develop hives, rash, itching or have trouble breathing or any unusual symptoms, go to the nearest Emergency Room. These could be signs of an allergic reaction to the medication. Follow up appointment: ANY PROBLEMS OR CONCERNS FOLLOW UP WITH YOUR PHYSICIAN OR GO TO THE NEAREST EMERGENCY ROOM documented in this encounter* Instructions* Mk Mayo MD - 05/12/2019 Please take all medications as prescribed. Please follow up with your primary care physician by calling today, or as soon as possible, for thefirst available appointment. If you do not have a primary care physician, please contact a physician or clinic listed below today to establish care. Please return to the emergency department IMMEDIATELY if you develop uncontrolled fevers, uncontrolled vomiting, change in symptoms, worsening of symptoms, or ANY other concerns. documented in this encounter* Instructions* Any Palencia RN - 07/13/2019 Follow-up with your OB doctor as specified. [facility] OB Department phone: Dr. Kear Pardo [facility] Dr. Mendy Viera [facility] [address] or [place] DIET Eat a well balanced diet focusing on foods high in fiber and protein. Drink plenty of fluids especially water. To avoid constipation you may take a mild stool softener as recommended by your doctor or pharmaceutical process engineer. ACTIVITY Gradually increase your activity. Resume exercise regimen only after advice by your doctor or pharmaceutical process engineer. Avoid lifting anything heavier than a gallon of milk for SIX weeks. Avoid driving until your doctor or pharmaceutical process engineer has given their approval. Rise slowly from a lying to sitting and then a standing position. Climb stairs one at a time. Use caution when carrying your baby up and down the stairs. NO SEXUAL Activity for 4-6 weeks or until advised by your doctor; Nothing in vagina: intercourse, tampons, or douching. Be prepared to discuss family planning at your follow-up OB visit. You may feel tired or have a lack of energy. You may continue your vitamin to replenish nutrients post delivery. Nap when baby naps to catch up on sleep. EMOTIONS You may feel sanderson, sad, teary, & overwhelmed. Contact your OB provider if you feel you may be showing signs of depression, or have thoughts of harming yourself or your . If will not stop crying, contact another adult for help or place in their crib on their back and take a break. NEVER shake your infant. BLEEDING Vaginal bleeding will decrease in amount over the next few weeks. You will notice that as your activity increases, your flow may increase. This is your body's way oftelling you, you need to take things easier and rest more often. Call your care provider if you are saturating more than one maxi pad in an hour & resting does not help. BREAST CARE Take medications as recommended by your doctor or pharmaceutical process engineer for pain If you develop a warm, red, tender area on your breast or develop a fever contact your OB provider. For moms: If you become engorged, feeding may be more difficult or painful for 1-2 days. You may find it helpful to hand express some milk so that the can latch on more easily. While , continue to take your vitamins as directed by your doctor or pharmaceutical process engineer. Refer to the booklet in the folder/binder for more information. If you feel you need more assistance or have questions, please call Sarah Wang IBCLC, student union consultant, at or the OB department to schedule an appointment or phone consultation. For more FREE help, visit the Support Group on Wednesday evenings at 7 pm in the OB department. For NON- moms: You may apply ice packs to your breasts over your bra for twenty minutes at a time for comfort. Avoid stimulation to your breasts, when showering allow the water to strike your back not your breasts. Wear a good fitting bra until your milk dries, such as a sports bra. DANIEL CARE Use the daniel-bottle after toileting until bleeding stops. Cleanse your perineum from front to back If used, stitches will dissolve in 4-6 weeks. You may use a sitz bath or soak in a clean tub as needed for comfort. Kegel exercises will help restore bladder control. SWELLING Try to keep your legs elevated when you are sitting. When lying down keep your legs elevated. When wearing stocking or socks, make sure they are not too tight. WHEN TO CALL THE DOCTOR If you have a temp of 100.6 or more. If your bleeding has increased and you are saturating a pad in an hour. Your abdomen is tender to touch. You are passing blood clots bigger than the size of a lemon. If you are experiencing extreme weakness or dizziness. If you are having flu-like symptoms such as achy muscles or joints. There is a foul smell or a green color to your vaginal bleeding. If you have pain that cannot be relieved. You have persistent burning or frequency with urination. Call if you have concerns about your well-being. You are unable to sleep, eat, or are having thoughts of harming yourself or your baby. You have swelling, bleeding, drainage, foul odor, redness, or warmth in/around your incision or stitches. You have a red, warm, tender area in your calf. documented in this encounter* Instructions* Loida Caro PA-C - 03/15/2020 You should quarantine until seen in follow-up. * Attachments The following attachments cannot be sent through Care Everywhere. * COVID-19 Viral Test (Scottish) documented in this encounter Assessments Diagnosis Threatened miscarriage- Primary Threatened , unspecified as to episode of care Yeast infection Other and unspecified mycoses Diagnosis Encounter for supervision of normal in first trimester, unspecified Screening for cystic fibrosis Screening, , for anatomic survey Encounter for anatomic survey Diagnosis Screening for cervical cancer Screening for malignant neoplasm of the cervix Diagnosis Carpal tunnel syndrome of right wrist- Primary Carpal tunnel syndrome Diagnosis Acute nasopharyngitis Acute nasopharyngitis (common cold) Diagnosis 38 weeks gestation of state, incidental Diagnosis Encounter for supervision of other normal in third trimester 29 weeks gestation of state, incidental Diagnosis Superficial thrombophlebitis of left upper extremity Diagnosis Term Normal delivery Diagnosis Suspected COVID-19 virus infection- Primary Advance Directives Documents on File Type Date Recorded Patient Thermoplastic Technician Expl anation Advance Directives and Living Will Power of Senior Qa Tester Documents on File Type Date Recorded Patient Thermoplastic Technician Expl anation Advance Directives and Living Will Power of Senior Qa Tester Latest Code Status on File Code Status Date Activated Date Inactivated Comments Full Code 07/12/2019 1:54 PM Full Code 07/11/2019 8:21 PM 07/12/2019 1:54 PM Full Code 07/11/2019 7:48 PM 07/11/2019 7:51 PM Documents on File Type Date Recorded Patient Thermoplastic Technician Expl anation ACP-Advance Directive ACP-Power of Senior Qa Tester Latest Code Status on File Code Status Date Activated Date Inactivated Comments Full Code 07/12/2019 1:54 PM 07/13/2019 3:24 PM Reason for Referral Status Reason Specialty Diagnoses / Procedures Re ferred By Contact Referred To Contact Open Radiology Diagnoses Superficial thrombophlebitis of left upper extremity Procedures VL DUP UPPER EXTREMITY VENOUS LEFT Mk Mayo MD [facility] [place] [address] Status Reason Specialty Diagnoses / Procedures Referre d By Contact Referred To Contact [facility] Diagnoses Right upper quadrant abdominal pain Procedures US Gallbladder Ruq Viera, Otshagabi Garay, BUSINESS OPERATIONS MANAGER - CNM [address] [facility] [address] [place] [address] Specialty Diagnoses / Procedures Referred By Contac t Referred To Contact Podiatry Diagnoses Pain in left foot Procedures CONSULT TO PODIATRY OFFICE/OUTPATIENT [facility] 60-74 MINUTES Fariba Hill, BUSINESS OPERATIONS MANAGER.BOILERMAKING SUPERVISOR [address] [place] [address] Referral ID Status Reason Start Date Expiration Date Visits Requested Visits Authorized [id number] Pending Review PCP Requested Referral 2 01/05/2023 1 1 Specialty Diagnoses / Procedures Referred By Contac t Referred To Contact Orthopedics Diagnoses Pain in right foot Procedures CONSULT TO ORTHOPAEDICS OFFICE/OUTPATIENT [facility] 60-74 MINUTES Fariba Hill, BUSINESS OPERATIONS MANAGER.BOILERMAKING SUPERVISOR [address] [place] [address] Referral ID Status Reason Start Date Expiration Date Visits Requested Visits Authorized [id number] Pending Review PCP Requested Referral 3 01/20/2024 1 1 Specialty Diagnoses / Procedures Referred By Contac t Referred To Contact Dermatology Diagnoses Localized superficial swelling, mass, or lump Seropositive rheumatoid arthritis (HCC) Procedures CONSULT TO DERMATOLOGY OFFICE/OUTPATIENT [facility] 60 MINUTES Fariba Hill, BUSINESS OPERATIONS MANAGER.BOILERMAKING SUPERVISOR [address] [place] [address] Referral ID Status Reason Start Date Expiration Date Visits Requested Visits Authorized [id number] Authorized PCP Requested Referral 04/28/2023 04/27/2024 1 1 Specialty Diagnoses / Procedures Referred By Contac t Referred To Contact US IMAGING Diagnoses Localized superficial swelling, mass, or lump Seropositive rheumatoid arthritis (HCC) Procedures US ELBOW LEFT US LMTD JOINT/OTH NONVASC XTR STRUX R-T W/IMG Fariba Hill, BUSINESS OPERATIONS MANAGER.BOILERMAKING SUPERVISOR [address] [place] [address] [place] [address] Referral ID Status Reason Start Date Expiration Date Visits Requested Visits Authorized [id number] Pending Review Auto-Generat ed Referral 04/28/2023 05/27/2024 1 1 History of Present Illness * Any Palencia RN - 07/13/2019 12:10 PM EDT [place] discharge instructions explained to pt, pt v.u. Pt states she did call Radha montez's office and got an appointment for July 17 at 11:30a.m. * Any Palencia RN - 07/13/2019 11:10 AM EDT RN reports to Tayla GARCIA that pt's fundus is midline but extends also to her right some. CNM states pt may have uterine fibroids. * Any Palencia RN - 07/13/2019 11:05 AM EDT Maternal obstetrical discharge instructions explained to pt, pt v.u. * Tosha Viera, [place] - ZAYNABM - 07/13/2019 8:26 AM EDT Department of Obstetrics and Gynecology Labor and Delivery Post Progress Note SUBJECTIVE: 1st day , multiparous female with chronic hypertension stable on oral labetalol, is RA with no current exacerbation, desires discharge OBJECTIVE: Vitals: BP 109/68 Pulse 75 Temp 97.9 F (36.6 C) (Oral) Resp 16 Ht 5' 3 (1.6 m) Wt 183 lb (83 kg) LMP 10/07/2018 SpO2 98% Unknown BMI 32.42 kg/m Patient Vitals for the past 24 hrs: BP Temp Temp src Pulse Resp SpO2 07/13/19 0718 109/68 97.9 F (36.6 C) Oral 75 16 07/13/19 0504 (!) 98/54 98 F (36.7 C) Oral 86 16 07/12/19 2253 116/68 98 F (36.7 C) Oral 61 18 07/12/192014 125/66 97.6 F (36.4 C) Oral 70 20 05/20/20 1849 113/76 97.5 F (36.4 C) Axillary 85 18 05/20/20 1332 111/71 62 18 05/20/20 1317 109/71 80 18 05/20/20 1302 117/70 89 18 05/20/20 1247 121/73 76 18 05/20/20 1233 114/66 64 18 05/20/20 1217 109/67 71 18 05/20/20 1202 114/62 80 18 05/20/20 1147 108/66 75 18 05/20/20 1145 107/65 68 18 05/20/20 1127 109/65 83 18 05/20/20 1116 128/61 57 18 05/20/20 1044 113/66 86 05/20/20 1042 (!) 82/52 75 05/20/20 1031 (!) 89/53 60 05/20/20 1028 (!) 88/54 91 14 05/20/20 1013 102/62 64 05/20/20 1000 119/73 64 05/20/20 0951 117/73 68 16 98 % 05/20/20 0946 98 % 05/20/20 0943 121/73 63 16 05/20/20 0941 98 % 05/20/20 0936 98 % 05/20/20 0931 98 % 05/20/20 0928 118/81 61 16 05/20/20 0915 97.5 F (36.4 C) Axillary 05/20/20 0912 118/82 72 05/20/20 0906 117/72 67 98 % 05/20/20 0901 97 % 05/20/20 0900 (!) 105/59 63 05/20/20 0856 97 % 05/20/20 0855 124/69 69 05/20/20 0853 130/84 86 05/20/20 0851 127/76 72 05/20/20 0849 133/87 90 05/20/20 0846 132/84 81 05/20/20 0844 130/82 77 05/20/20 0843 97 % 05/20/20 0842 129/83 76 05/20/20 0840 139/88 78 05/20/20 0838 (!) 140/87 75 96 % 05/20/20 0836 (!) 149/90 81 07/12/19 0834 134/85 75 07/12/19 0833 97 % ABDOMEN: normal shape, position and consistency GENITAL/URINARY: External Genitalia: General appearance; normal, Hair distribution; normal, Lesionsabsent Uterus: Size normal, Tenderness absent Breast:normal appearance, no masses or tenderness Cor: RRR no Murmurs Pulmonary: clear to auscultation anterior and posterior Extremities: no Clubbing cyanosis or ecchymosis DATA: CBC: Lab Results Component Value Date WBC 13.9 07/11/2019 RBC 4.10 07/11/2019 HGB 11.6 07/11/2019 HCT 35.7 07/11/2019 MCV 87.1 07/11/2019 MCH 28.3 07/11/2019 MCHC 32.5 07/11/2019 RDW 14.3 07/11/2019 PLT 349 07/11/2019 MPV 10.3 07/11/2019 ASSESSMENT : Active Problems: Term Plan: delivered Normal delivery Plan: Dc home, rto 6 weeks, routine instructions * Any Palencia RN - 07/12/2019 11:33 AM EDT Pt straight catheterized by Tayla GARCIA. Small amount clear yellow urine noted. * Any Palencia RN - 07/12/2019 10:26 AM EDT Tayla GARCIA updated on SVE results. CNM tells RN to do SVE at 11:00 unless patient feels pressure before then. RN reports that pt was sound asleep right before this last SVE, RN awakened her to do SVE due to heart rate. * Any Palencia RN - 07/12/2019 9:51 AM EDT RN calls Tayla GARCIA with SVE update. CNM states to leave pitocin off. * Prema Bhat RN - 07/12/2019 9:40 AM EDT Tosha called and notified that pt had spontaneous 5 minute decel down to 65bpm. Pt flipped to both sides, IV bolus given and pit turned off. Tosha pulls strip up in office and views it while data analyst report writer talking. Updated that pt 3 cm, was checked during decel. Primary nurse currently placing calle. Nandinitates to wait 1/2 hour then call her back to discuss plan for pitocin. * Any Palencia RN - 07/12/2019 9:40 AM EDT Plan of care explained to pt, pt v.u. Pt resting on left side. * Any Palencia RN - 07/12/2019 8:11 AM EDT Tayla GARCIA returns RN's call. RN inquires about scheduled tylenol, CNM tells RN to give the next scheduled dose of tylenol then discontinue it. RN reports that pt states stadol is not helping at allwith contraction pain, CNM states pt can get epidural then if she wants it. documented in this encounter Summary Purpose Family History No Family History Records FoundNo Family History Records FoundNo Family History Records FoundNo Family History Records Found Medications Administered Section Inactive Administered Medications - up to 3 most recent administrations Medication Order MAR Action Action Date Dose Rate Site acetaminophen 650 mg tab(s) (TYLENOL) 650 mg, ORAL, ONCE, 1 dose, On Wed07/23/21 at 0930, No more than 4000 mg of acetaminophen should be given per day (FROM ALL SOURCES), If ordered PRN for pain, patient/guardian may elect to receive this medication for higher pain levels INSTEAD of the opioid, if preferred: N/A Given 07/23/2021 9:28 AM EDT 650 mg diphenhydrAMINE 25 mg (BENADRYL) 25 mg, ORAL, ONCE, 1 dose, On Wed07/23/21 at 0930 Given 07/23/2021 9:28 AM EDT 25 mg inFLIXimab-abda 200 mg in NaCl 0.9% 250 mL (RENFLEXIS) 200 mg, INTRAVENOUS, at 83.33-250 mL/hr, Administer over 1-3 Hours, ONCE, 1 dose, On Wed07/23/21 at 0930, TOTAL VOLUME = 250 mL. EXP: 07/30/21 Administer with 0.2 micron filter. Rate/Dose Change 07/23/2021 11:38 AM EDT 250 mL/hr Rate/Dose Change 07/23/2021 11:08 AM EDT 160 mL /hr Rate/Dose Change 07/23/2021 10:53 AM EDT 80 mL/ hr methylPREDNISolone sod succinate(PF) 125 mg injection (SOLU-Medrol) 125 mg, INTRAVENOUS, ONCE, 1 dose, On Wed07/23/21 at 0930 Given 07/23/2021 9:36 AM EDT 125 mg Inactive Administered Medications - up to 3 most recent administrations Medication Order MAR Action Action Date Dose Rate Site acetaminophen 650 mg tab(s) (TYLENOL) 650 mg, ORAL, ONCE, 1 dose, On Wed08/06/21 at 1330, No more than 4000 mg of acetaminophen should be given per day (FROM ALL SOURCES), If ordered PRN for pain, patient/guardian may elect to receive this medication for higher pain levels INSTEAD of the opioid, if preferred: N/A Given 08/06/2021 1:26 PM EDT 650 mg diphenhydrAMINE 25 mg (BENADRYL) 25 mg, ORAL, ONCE, 1 dose, On Wed08/06/21 at 1330 Given 08/06/2021 1:26 PM EDT 25 mg inFLIXimab-abda 200 mg in NaCl 0.9% 250 mL (RENFLEXIS) 200 mg, INTRAVENOUS, at 83.33-250 mL/hr, Administer over 1-3 Hours, ONCE, 1 dose, On Wed08/06/21 at 1330, EXP: 08/14/21 Administer with 0.2 micron filter. Rate/Dose Change 08/06/2021 3:37 PM EDT 250 mL/hr Rate/Dose Change 08/06/2021 3:07 PM EDT 150 mL/ hr Rate/Dose Change 08/06/2021 2:52 PM EDT 80 mL/h r methylPREDNISolone sod succinate(PF) 125 mg injection (SOLU-Medrol) 125 mg, INTRAVENOUS, ONCE, 1 dose, On Wed08/06/21 at 1330 Given 08/06/2021 1:34 PM EDT 125 mg Inactive Administered Medications - up to 3 most recent administrations Medication Order MAR Action Action Date Dose Rate Site acetaminophen 650 mg tab(s) (TYLENOL) 650 mg, ORAL, ONCE, 1 dose, On Wed09/03/21 at 1330, No more than 4000 mg of acetaminophen should be given per day (FROM ALL SOURCES), If ordered PRN for pain, patient/guardian may elect to receive this medication for higher pain levels INSTEAD of the opioid, if preferred: N/A Given 09/03/2021 1:10 PM EDT 650 mg diphenhydrAMINE 25 mg (BENADRYL) 25 mg, ORAL, ONCE, 1 dose, On Wed09/03/21 at 1330 Given 09/03/2021 1:10 PM EDT 25 mg inFLIXimab-abda 200 mg in NaCl 0.9% 250 mL (RENFLEXIS) 200 mg, INTRAVENOUS, at 83.33-250 mL/hr, Administer over 1-3 Hours, ONCE, 1 dose, On Wed09/03/21 at 1330, TOTAL VOLUME = 250 mL. EXP: 09/11/21 Administer with 0.2 micron filter. Rate/Dose Change 09/03/2021 3:10 PM EDT 250 mL/hr Rate/Dose Change 09/03/2021 2:40 PM EDT 150 mL/ hr Rate/Dose Change 09/03/2021 2:25 PM EDT 80 mL/h r methylPREDNISolone sod succinate(PF) 125 mg injection (SOLU-Medrol) 125 mg, INTRAVENOUS, ONCE, 1 dose, On Wed09/03/21 at 1330 Given 09/03/2021 1:20 PM EDT 125 mg Inactive Administered Medications - up to 3 most recent administrations Medication Order MAR Action Action Date Dose Rate Site acetaminophen 650 mg tab(s) (TYLENOL) 650 mg, ORAL, ONCE, 1 dose, On Wed11/13/21 at 1330, No more than 4000 mg of acetaminophen should be given per day (FROM ALL SOURCES), If ordered PRN for pain, patient/guardian may elect to receive this medication for higher pain levels INSTEAD of the opioid, if preferred: N/A Given 11/13/2021 1:29 PM EDT 650 mg diphenhydrAMINE 25 mg (BENADRYL) 25 mg, ORAL, ONCE, 1 dose, On Diane 11/13/21 at 1330 Given 11/13/2021 1:29 PM EDT 25 mg inFLIXimab-abda 200 mg in NaCl 0.9% 250 mL (RENFLEXIS) 200 mg, INTRAVENOUS, at 83.33-250 mL/hr, Administer over 1-3 Hours, ONCE, 1 dose, On Wed11/13/21 at 1330, TOTAL VOLUME = 250 mL. EXP: 11/23/21 Administer with 0.2 micron filter. New Bag/Syringe/Bottle 11/13/2021 2:01 PM EDT 200 mg 125 mL/hr methylPREDNISolone sod succinate(PF) 125 mg injection (SOLU-Medrol) 125 mg, INTRAVENOUS, ONCE, 1 dose, On Diane 11/13/21 at 1330 Given 11/13/2021 1:35 PM EDT 125 mg Inactive Administered Medications - up to 3 most recent administrations Medication Order MAR Action Action Date Dose Rate Site acetaminophen 650 mg tab(s) (TYLENOL) 650 mg, ORAL, ONCE, 1 dose, On Wed01/05/22 at 1100, No more than 4000 mg of acetaminophen should be given per day (FROM ALL SOURCES), If ordered PRN for pain, patient/guardian may elect to receive this medication for higher pain levels INSTEAD of the opioid, if preferred: N/A Given 01/05/2022 10:51 AM EST 650 mg diphenhydrAMINE 25 mg (BENADRYL) 25 mg, ORAL, ONCE, 1 dose, On Wed01/05/22 at 1100 Given 01/05/2022 10:52 AM EST 25 mg inFLIXimab-abda 200 mg in NaCl 0.9% 250 mL (RENFLEXIS) 200 mg, INTRAVENOUS, at 83.33-250 mL/hr, Administer over 1-3 Hours, ONCE, 1 dose, On Wed01/05/22 at 1100, TOTAL VOLUME = 250 mL. EXP: 01/11/22 Administer with 0.2 micron filter. New Bag/Syringe/Bottle 01/05/2022 11:33 AM EST 200 mg 125 mL/hr methylPREDNISolone sod succinate(PF) 125 mg injection (SOLU-Medrol) 125 mg, INTRAVENOUS, ONCE, 1 dose, On Wed01/05/22 at 1100 Given 01/05/2022 11:00 AM EST 125 mg Inactive Administered Medications - up to 3 most recent administrations Medication Order MAR Action Action Date Dose Rate Site acetaminophen 650 mg tab(s) (TYLENOL) 650 mg, ORAL, ONCE, 1 dose, On Wed02/24/22 at 1000, No more than 4000 mg of acetaminophen should be given per day (FROM ALL SOURCES), If ordered PRN for pain, patient/guardian may elect to receive this medication for higher pain levels INSTEAD of the opioid, if preferred: N/A Given 02/24/2022 10:05 AM EST 650 mg diphenhydrAMINE 25 mg (BENADRYL) 25 mg, ORAL, ONCE, 1 dose, On Wed02/24/22 at 1000 Given 02/24/2022 10:05 AM EST 25 mg inFLIXimab-abda 400 mg in NaCl 0.9% 250 mL (RENFLEXIS) 400 mg, INTRAVENOUS, at 83.33-250 mL/hr, Administer over 1-3 Hours, ONCE, 1 dose, On Wed02/24/22 at 1000, TOTAL VOLUME - Expires: 03/05/22 @ 0800 (refirgerated) Administer with 0.2 micron filter. New Bag/Syringe/Bottle 02/24/2022 10:42 AM EST 400 mg 125 mL/hr methylPREDNISolone sod succinate(PF) 125 mg injection (SOLU-Medrol) 125 mg, INTRAVENOUS, ONCE, 1 dose, On Wed02/24/22 at 1000 Given 02/24/2022 10:08 AM EST 125 mg Inactive Administered Medications - up to 3 most recent administrations Medication Order MAR Action Action Date Dose Rate Site acetaminophen 650 mg tab(s) (TYLENOL) 650 mg, ORAL, ONCE, 1 dose, On Wed04/14/22 at 1100, No more than 4000 mg of acetaminophen should be given per day (FROM ALL SOURCES), If ordered PRN for pain, patient/guardian may elect to receive this medication for higher pain levels INSTEAD of the opioid, if preferred: N/A Given 04/14/2022 11:12 AM EST 650 mg diphenhydrAMINE 25 mg (BENADRYL) 25 mg, ORAL, ONCE, 1 dose, On Wed04/14/22 at 1100 Given 04/14/2022 11:12 AM EST 25 mg inFLIXimab-abda 400 mg in NaCl 0.9% 250 mL (RENFLEXIS) 400 mg, INTRAVENOUS, at 83.33-250 mL/hr, Administer over 1-3 Hours, ONCE, 1 dose, On Wed04/14/22 at 1100, TOTAL VOLUME = 250 mL. EXP: 1400 Administer with 0.2 micron filter. New Bag/Syringe/Bottle 04/14/2022 11:44 AM EST 400 mg 125 mL/hr methylPREDNISolone sod succinate(PF) 125 mg injection (SOLU-Medrol) 125 mg, INTRAVENOUS, ONCE, 1 dose, On Wed04/14/22 at 1100 Given 04/14/2022 11:13 AM EST 125 mg Inactive Administered Medications - up to 3 most recent administrations Medication Order MAR Action Action Date Dose Rate Site acetaminophen 650 mg tab(s) (TYLENOL) 650 mg, ORAL, ONCE, 1 dose, On Wed06/23/22 at 1230, No more than 4000 mg of acetaminophen should be given per day (FROM ALL SOURCES), If ordered PRN for pain, patient/guardian may elect to receive this medication for higher pain levels INSTEAD of the opioid, if preferred: N/A Given 06/23/2022 12:22 PM EDT 650 mg diphenhydrAMINE 25 mg (BENADRYL) 25 mg, ORAL, ONCE, 1 dose, On Wed06/23/22 at 1230 Given 06/23/2022 12:22 PM EDT 25 mg inFLIXimab-abda 400 mg in NaCl 0.9% 250 mL (RENFLEXIS) 400 mg, INTRAVENOUS, at 83.33-250 mL/hr, Administer over 1-3 Hours, ONCE, 1 dose, On Wed06/23/22 at 1230, TOTAL VOLUME = 250 mL. EXP: 06/23/22 1400 Administer with 0.2 micron filter. New Bag/Syringe/Bottle 06/23/2022 1:10 PM EDT 400 mg 125 mL/hr methylPREDNISolone sod succinate(PF) 125 mg injection (SOLU-Medrol) 125 mg, INTRAVENOUS, ONCE, 1 dose, On Wed06/23/22 at 1230 Given 06/23/2022 12:31 PM EDT 125 mg Inactive Administered Medications - up to 3 most recent administrations Medication Order MAR Action Action Date Dose Rate Site acetaminophen 650 mg tab(s) (TYLENOL) 650 mg, ORAL, ONCE, 1 dose, On Diane 09/17/22 at 0930, No more than 4000 mg of acetaminophen should be given per day (FROM ALL SOURCES), If ordered PRN for pain, patient/guardian may elect to receive this medication for higher pain levels INSTEAD of the opioid, if preferred: N/A Given 09/17/2022 9:40 AM EDT 650 mg diphenhydrAMINE 25 mg (BENADRYL) 25 mg, ORAL, ONCE, 1 dose, On Diane 09/17/22 at 0930 Given 09/17/2022 9:40 AM EDT 25 mg inFLIXimab-axxq 500 mg in NaCl 0.9% 250 mL (AVSOLA) 500 mg, INTRAVENOUS, at 83.33-250 mL/hr, Administer over 1-3 Hours, ONCE, 1 dose, On Diane 09/17/22 at 0930, TOTAL VOLUME - Expires: 09/25/22 @ 1300 (refrigerated) Administer with 0.2 micron filter. New Bag/Syringe/Bottle 09/17/2022 10:10 AM EDT 500 mg 125 mL/hr methylPREDNISolone sod succinate(PF) 125 mg injection (SOLU-Medrol) 125 mg, INTRAVENOUS, ONCE, 1 dose, On Diane 09/17/22 at 0930 Given 09/17/2022 9:45 AM EDT 125 mg Inactive Administered Medications - up to 3 most recent administrations Medication Order MAR Action Action Date Dose Rate Site acetaminophen 650 mg tab(s) (TYLENOL) 650 mg, ORAL, ONCE, 1 dose, On Diane 10/22/22 at 1000, No more than 4000 mg of acetaminophen should be given per day (FROM ALL SOURCES), If ordered PRN for pain, patient/guardian may elect to receive this medication for higher pain levels INSTEAD of the opioid, if preferred: N/A Given 10/22/2022 9:49 AM EDT 650 mg diphenhydrAMINE 25 mg (BENADRYL) 25 mg, ORAL, ONCE, 1 dose, On Diane 10/22/22 at 1000 Given 10/22/2022 9:49 AM EDT 25 mg diphenhydrAMINE 50 mg injection (BENADRYL) 50 mg, INTRAVENOUS, NEEDED, 1 dose, Starting on Diane 10/22/22 at 0938, Until Wed10/22/22 at 1040, Administer per hypersensitivity/anaphylax is grading in nursing communication Given 10/22/2022 10:40 AM EDT 50 mg hydrocortisone sodium succinate (PF) 100 mg injection (Solu-CORTEF) 100 mg, INTRAVENOUS, NEEDED, 1 dose, Starting on Wed10/22/22 at 0938, Until Wed10/22/22 at 1042, Administer per hypersensitivity/anaphylax is grading in nursing communication Given 10/22/2022 10:42 AM EDT 100 mg inFLIXimab-axxq 500 mg in NaCl 0.9% 250 mL (AVSOLA) 500 mg, INTRAVENOUS, at 83.33-250 mL/hr, Administer over 1-3 Hours, ONCE, 1 dose, On Wed10/22/22 at 1000, Total Volume: = 250 mL EXP: 10/30/22 Administer with 0.2 micron filter. New Bag/Syringe/Bottle 10/22/2022 10:20 AM EDT 500 mg 250 mL/hr methylPREDNISolone sodium succinate 125 mg injection (SOLU-Medrol) 125 mg, INTRAVENOUS, ONCE, 1 dose, On Wed10/22/22 at 1000 Given 10/22/2022 9:55 AM EDT 125 mg Inactive Administered Medications - up to 3 most recent administrations Medication Order MAR Action Action Date Dose Rate Site tocilizumab 281.2 mg in NaCl 0.9% 100 mL (ACTEMRA) 281.2 mg (4 mg/kg/dose 70.3 kg Order-specific weight), INTRAVENOUS, at 100 mL/hr, Administer over 60 Minutes, ONCE, 1 dose, On Wed11/27/22 at 1000, PROTECT FROM LIGHT -- TOTAL VOLUME = 100 ML EXP: 11/27/22 (Refrigerated) New Bag/Syringe/Bottle 11/27/2022 9:56 AM EDT 281.2 mg 100 mL/hr Inactive Administered Medications - up to 3 most recent administrations Medication Order MAR Action Action Date Dose Rate Site tocilizumab 281.2 mg in NaCl 0.9% 100 mL (ACTEMRA) 281.2 mg (4 mg/kg/dose 70.3 kg Order-specific weight), INTRAVENOUS, at 100 mL/hr, Administer over 60 Minutes, ONCE, 1 dose, On Wed12/31/22 at 1030, PROTECT FROM LIGHT -- TOTAL VOLUME = 100 ML Note: Maximum dose = 800mg EXP: 12/31/22 1400 refrigerated New Bag/Syringe/Bottle 12/31/2022 10:55 AM EST 281.2 mg 100 mL/hr Additional Source Comments Reason for Visit (unrecogniz ed section and content) Reason Comments Infusion Specialty Diagnoses / Procedures Referred By Contac Referred To Contact Diagnoses Seropositive rheumatoid arthritis (HCC) Procedures INJECTION, RENFLEXIS INJ. AVSOLA, 10 MG Juan Daniel Leos MD [address] [place] [address] Rheu Infusion [facility] [address] [place] [address] Referral ID Status Reason Start Date Expiration Date V isits Requested Visits Authorized [id number] Authorized 07/01/2021 09/01/2023 99 99 Reason Comments renflexis infusion Specialty Diagnoses / Procedures [facility] Referred To Contact Diagnoses Seropositive rheumatoid arthritis (HCC) Procedures INJECTION, RENFLEXIS Juan Daniel Leos MD [address] [place] [address] Rheu Infusion [facility] [address] [place] [address] Referral ID Status Reason Start Date Expiration Date V isits Requested Visits Authorized [id number] Authorized 07/01/2021 08/22/2022 9 9 Referral ID Status Reason Start Date Expiration Date V isits Requested Visits Authorized [id number] Authorized 07/01/2021 01/18/2022 5 5 Reason Comments Vaginal Bleeding pt states onset this afternoon, along with lower abd cramping. Pt states she is 7 weeks Reason Comments Wrist Pain right wrist, extends into right hand, onset today, no known injury Reason Comments Arm Pain left arm- 30wks preg nant with history of RA, has elbow and wrist pain, noticed red spot yesterday Reason Comments Scheduled Induction Status Reason Specialty Diagnoses / Procedures Referre d By Contact Referred To Contact Diagnoses Term Tosha Viera, BUSINESS OPERATIONS MANAGER - CNM [address] [place] [address] [facility] Reason Comments Covid Testing Pt states positive e xposure with loss of smell/taste and cough Otalgia Right Joint Pain Knees/feet r/t arthr itis Reason Comments Cough ongoing for a week Status Reason Specialty Diagnoses / Procedures Referre d By Contact Referred To Contact Open Radiology Diagnoses Right upper quadrant abdominal pain Procedures US Gallbladder Tosha Mcginnis, BUSINESS OPERATIONS MANAGER - CNM [address] [place] [address] Reason Comments Insurance Authorization Prior Auth Delay ed: Additional Info needed for Renflexis Reason Comments Appointment Specialty Diagnoses / Procedures Referred By Contac t Referred To Contact Diagnoses Seropositive rheumatoid arthritis (HCC) Procedures INJECTION, RENFLEXIS Juan Daniel Leos MD [address] [facility] [place] [address] Rheu Infusion [facility] [address] [place] [address] Reason Comments Follow Up Reason Comments Results Reason Comments Question Reason Comments Patient Question Reason Comments Question Return Provider Call Reason Comments Follow Up Reason Comments Smoking Cessation Reason Comments Insurance Authorization Prior auth delay ed: Additional Info Needed (Renflexis) Reason Comments Results Reason Comments Refill Request Reason Comments Rheumatoid Arthritis infusion -- c/o swe lling in [place] hands and feet -- discuss medication options - requesting orders for xrays to have done a facility closer to home , fatigue Reason Comments Medication Problem Reason Comments Patient Update Reason Comments Insurance Authorization Prior Auth Delay ed: P2P requested for [facility]ola Reason Comments Follow Up RA -- infusion today Referral ID Status Reason Start Date Expiration Date Visits Re quested Visits Authorized [id number] Closed 07/01/2021 09/01/2023 16 16 Specialty Diagnoses / Procedures Referred By Contac t Referred To Contact Diagnoses Seropositive rheumatoid arthritis (HCC) Procedures TOCILIZUMAB INJECTION tocilizumab 281.2 mg (ACTEMRA) Q28 days Fariab Hill, BUSINESS OPERATIONS MANAGER.BOILERMAKING SUPERVISOR [address] [place] [address] Rheu Infusion [facility] [address] [place] [address] Referral ID Status Reason Start Date Expiration Date V isits Requested Visits Authorized [id number] Authorized 11/10/2022 11/20/2023 14 14 Reason Comments Lab Orders Specialty Diagnoses / Procedures Referred By Inderjit dahl Referred To Contact Diagnoses Seropositive rheumatoid arthritis (HCC) Procedures TOCILIZUMAB INJECTION tocilizumab 281.2 mg (ACTEMRA) Q28 days Fariba Hill, BUSINESS OPERATIONS MANAGER.BOILERMAKING SUPERVISOR [address] [place] [address] Rheu Infusion [facility] [address] [place] [address] Reason Comments F/U 3 Month continues to have se giovanni pain in hands wrists and Rt foot x 2-3 wks Referral ID Status Reason Start Date Expiration Date Visits Requested Visits Authorized [id number] Authorized Clearance Not Met - Pt Rescheduled/ Cancelled/Ch ose Not to Proceed 11/10/2022 01/20/2024 99 99 Reason Comments No Show To f/u apt Reason Comments Wheezing Cough with wheezing, 2 weeks Ordered Prescriptions (unrec ognized section and content) Prescription Sig Dispensed Refills Start Date End Da te dexamethasone (DECADRON) 6 MG tablet Take 1 tablet by mouth daily (with breakfast) for 5 days 5 tablet 0 03/15/2020 03/20/2020 Prescription Sig Dispensed Refills Start Date End Da te guaiFENesin-dextromet horphan (ROBITUSSIN DM) 100-10 MG/5ML syrup Take 5 mLs by mouth 3 times daily as needed for Cough 120 mL 0 09/15/2020 09/25/2020 budesonide (PULMICORT) 0.5 MG/2ML nebulizer suspension Take 2 mLs by nebulization 2 times daily 30 ampule 0 09/15/2020 ipratropium-albuterol (DUONEB) 0.5-2.5 (3) MG/3ML SOLN nebulizer solution Inhale 3 mLs into the lungs every 4 hours 360 mL 0 09/15/2020 Respiratory Therapy Supplies (NEBULIZER/TUBING/JUDE THPIECE) KIT 1 kit by Does not apply route daily as needed (reactive airway disease) 1 kit 0 09/15/2020 doxycycline hyclate (VIBRAMYCIN) 100 MG capsule Take 1 capsule by mouth 2 times daily for 7 days 14 capsule 0 09/15/2020 09/22/2020 Scheduled Active and Recently Administ ered Medications (unrecognized section and content) Medication Order 09/13/2020 09/14/2020 09/15/2020 budesonide (PULMICORT) nebulizer suspension 500 mcg (COMPLETED) 500 mcg (0.5 mg), Nebulization, ONCE, On 09/15/20 at 1745, For 1 dose, Rinse mouth out with water (without swallowing) after every dose. 1839 (Given - Provid er: Helen Reinoso RCP) dexamethasone (DECADRON) injection 6 mg (COMPLETED) 6 mg, Intramuscular, ONCE, On 09/15/20 at 1830, For 1 dose 1901 (Given - Provid er: Any Viera RN) doxycycline hyclate (VIBRAMYCIN) capsule 100 mg (COMPLETED) 100 mg, Oral, ONCE, On 09/15/20 at 1830, For 1 dose, This medication can interact with tube feedings (TF)- obtain MD order to manage. Recommend holding TF for 1 h before and 2 h after dose. Take 1 h before or 2 h after dairy, calcium, iron, magnesium, aluminum or zinc. 1901 (Given - Provid er: Any Viera RN) ipratropium-albuterol (DUONEB) nebulizer solution 1 ampule (COMPLETED) 1 ampule, Inhalation, ONCE, On 09/15/20 at 1745, For 1 dose 1839 (Given - Provid er: Helen Reinoso RCP) Source Comments (unrecognize d section and content) In the event this informatio n is protected by the Federal Confidentiality of Alcohol and Drug Abuse Patient Records regulations: The Federal rules restrict any use of the information to criminally investigate or prosecute any alcohol or drug abuse patient.[facility] the event this information is protected by the Federal Confidentiality of Alcohol and Drug Abuse Patient Records regulations: The Federal rules restrict any use of the information to criminally investigate or prosecute any alcohol or drug abuse patient.[facility] the event this information is protected by the Federal Confidentiality of Alcohol and Drug Abuse Patient Records regulations: The Federal rules restrict any use of the information to criminally investigate or prosecute any alcohol or drug abuse patient.[facility] the event this information is protected by the Federal Confidentiality of Alcohol and Drug Abuse Patient Records regulations: The Federal rules restrict any use of the information to criminally investigate or prosecute any alcohol or drug abuse patient.[facility] the event this information is protected by the Federal Confidentiality of Alcohol and Drug Abuse Patient Records regulations: The Federal rules restrict any use of the information to criminally investigate or prosecute any alcohol or drug abuse patient.[facility] the event this information is protected by the Federal Confidentiality of Alcohol and Drug Abuse Patient Records regulations: The Federal rules restrict any use of the information to criminally investigate or prosecute any alcohol or drug abuse patient.[facility] the event this information is protected by the Federal Confidentiality of Alcohol and Drug Abuse Patient Records regulations: The Federal rules restrict any use of the information to criminally investigate or prosecute any alcohol or drug abuse patient.[facility] the event this information is protected by the Federal Confidentiality of Alcohol and Drug Abuse Patient Records regulations: The Federal rules restrict any use of the information to criminally investigate or prosecute any alcohol or drug abuse patient.[facility] the event this information is protected by the Federal Confidentiality of Alcohol and Drug Abuse Patient Records regulations: The Federal rules restrict any use of the information to criminally investigate or prosecute any alcohol or drug abuse patient.[facility] the event this information is protected by the Federal Confidentiality of Alcohol and Drug Abuse Patient Records regulations: The Federal rules restrict any use of the information to criminally investigate or prosecute any alcohol or drug abuse patient.[facility] the event this information is protected by the Federal Confidentiality of Alcohol and Drug Abuse Patient Records regulations: The Federal rules restrict any use of the information to criminally investigate or prosecute any alcohol or drug abuse patient.[facility] the event this information is protected by the Federal Confidentiality of Alcohol and Drug Abuse Patient Records regulations: The Federal rules restrict any use of the information to criminally investigate or prosecute any alcohol or drug abuse patient.[facility] the event this information is protected by the Federal Confidentiality of Alcohol and Drug Abuse Patient Records regulations: The Federal rules restrict any use of the information to criminally investigate or prosecute any alcohol or drug abuse patient.[facility] the event this information is protected by the Federal Confidentiality of Alcohol and Drug Abuse Patient Records regulations: The Federal rules restrict any use of the information to criminally investigate or prosecute any alcohol or drug abuse patient.[facility] the event this information is protected by the Federal Confidentiality of Alcohol and Drug Abuse Patient Records regulations: The Federal rules restrict any use of the information to criminally investigate or prosecute any alcohol or drug abuse patient.[facility] the event this information is protected by the Federal Confidentiality of Alcohol and Drug Abuse Patient Records regulations: The Federal rules restrict any use of the information to criminally investigate or prosecute any alcohol or drug abuse patient.[facility]In the event this information is protected by the Federal Confidentiality of Alcohol and Drug Abuse Patient Records regulations: The Federal rules restrict any use of the information to criminally investigate or prosecute any alcohol or drug abuse patient.[facility]In the event this information is protected by the Federal Confidentiality of Alcohol and Drug Abuse Patient Records regulations: The Federal rules restrict any use of the information to criminally investigate or prosecute any alcohol or drug abuse patient.[facility]In the event this information is protected by the Federal Confidentiality of Alcohol and Drug Abuse Patient Records regulations: The Federal rules restrict any use of the information to criminally investigate or prosecute any alcohol or drug abuse patient.[facility]In the event this information is protected by the Federal Confidentiality of Alcohol and Drug Abuse Patient Records regulations: The Federal rules restrict any use of the information to criminally investigate or prosecute any alcohol or drug abuse patient.[facility] HospitalIn the event this information is protected by the Federal Confidentiality of Alcohol and Drug Abuse Patient Records regulations: The Federal rules restrict any use of the information to criminally investigate or prosecute any alcohol or drug abuse patient.[facility] HospitalIn the event this information is protected by the Federal Confidentiality of Alcohol and Drug Abuse Patient Records regulations: The Federal rules restrict any use of the information to criminally investigate or prosecute any alcohol or drug abuse patient.[facility] HospitalIn the event this information is protected by the Federal Confidentiality of Alcohol and Drug Abuse Patient Records regulations: The Federal rules restrict any use of the information to criminally investigate or prosecute any alcohol or drug abuse patient.[facility] HospitalIn the event this information is protected by the Federal Confidentiality of Alcohol and Drug Abuse Patient Records regulations: The Federal rules restrict any use of the information to criminally investigate or prosecute any alcohol or drug abuse patient.[facility]In the event this information is protected by the Federal Confidentiality of Alcohol and Drug Abuse Patient Records regulations: The Federal rules restrict any use of the information to criminally investigate or prosecute any alcohol or drug abuse patient.[facility] HospitalIn the event this information is protected by the Federal Confidentiality of Alcohol and Drug Abuse Patient Records regulations: The Federal rules restrict any use of the information to criminally investigate or prosecute any alcohol or drug abuse patient.[facility] HospitalIn the event this information is protected by the Federal Confidentiality of Alcohol and Drug Abuse Patient Records regulations: The Federal rules restrict any use of the information to criminally investigate or prosecute any alcohol or drug abuse patient.[facility] HospitalIn the event this information is protected by the Federal Confidentiality of Alcohol and Drug Abuse Patient Records regulations: The Federal rules restrict any use of the information to criminally investigate or prosecute any alcohol or drug abuse patient.[facility] HospitalIn the event this information is protected by the Federal Confidentiality of Alcohol and Drug Abuse Patient Records regulations: The Federal rules restrict any use of the information to criminally investigate or prosecute any alcohol or drug abuse patient.[facility] HospitalIn the event this information is protected by the Federal Confidentiality of Alcohol and Drug Abuse Patient Records regulations: The Federal rules restrict any use of the information to criminally investigate or prosecute any alcohol or drug abuse patient.[facility] HospitalIn the event this information is protected by the Federal Confidentiality of Alcohol and Drug Abuse Patient Records regulations: The Federal rules restrict any use of the information to criminally investigate or prosecute any alcohol or drug abuse patient.[facility] HospitalIn the event this information is protected by the Federal Confidentiality of Alcohol and Drug Abuse Patient Records regulations: The Federal rules restrict any use of the information to criminally investigate or prosecute any alcohol or drug abuse patient.[facility] HospitalIn the event this information is protected by the Federal Confidentiality of Alcohol and Drug Abuse Patient Records regulations: The Federal rules restrict any use of the information to criminally investigate or prosecute any alcohol or drug abuse patient.[facility] HospitalIn the event this information is protected by the Federal Confidentiality of Alcohol and Drug Abuse Patient Records regulations: The Federal rules restrict any use of the information to criminally investigate or prosecute any alcohol or drug abuse patient.[facility] HospitalIn the event this information is protected by the Federal Confidentiality of Alcohol and Drug Abuse Patient Records regulations: The Federal rules restrict any use of the information to criminally investigate or prosecute any alcohol or drug abuse patient.[facility] HospitalIn the event this information is protected by the Federal Confidentiality of Alcohol and Drug Abuse Patient Records regulations: The Federal rules restrict any use of the information to criminally investigate or prosecute any alcohol or drug abuse patient.[facility] HospitalIn the event this information is protected by the Federal Confidentiality of Alcohol and Drug Abuse Patient Records regulations: The Federal rules restrict any use of the information to criminally investigate or prosecute any alcohol or drug abuse patient.[facility] HospitalIn the event this information is protected by the Federal Confidentiality of Alcohol and Drug Abuse Patient Records regulations: The Federal rules restrict any use of the information to criminally investigate or prosecute any alcohol or drug abuse patient.[facility] HospitalIn the event this information is protected by the Federal Confidentiality of Alcohol and Drug Abuse Patient Records regulations: The Federal rules restrict any use of the information to criminally investigate or prosecute any alcohol or drug abuse patient.[facility] HospitalIn the event this information is protected by the Federal Confidentiality of Alcohol and Drug Abuse Patient Records regulations: The Federal rules restrict any use of the information to criminally investigate or prosecute any alcohol or drug abuse patient.[facility] HospitalIn the event this information is protected by the Federal Confidentiality of Alcohol and Drug Abuse Patient Records regulations: The Federal rules restrict any use of the information to criminally investigate or prosecute any alcohol or drug abuse patient.[facility] HospitalIn the event this information is protected by the Federal Confidentiality of Alcohol and Drug Abuse Patient Records regulations: The Federal rules restrict any use of the information to criminally investigate or prosecute any alcohol or drug abuse patient.[facility] HospitalIn the event this information is protected by the Federal Confidentiality of Alcohol and Drug Abuse Patient Records regulations: The Federal rules restrict any use of the information to criminally investigate or prosecute any alcohol or drug abuse patient.[facility] HospitalIn the event this information is protected by the Federal Confidentiality of Alcohol and Drug Abuse Patient Records regulations: The Federal rules restrict any use of the information to criminally investigate or prosecute any alcohol or drug abuse patient.[facility] the event this information is protected by the Federal Confidentiality of Alcohol and Drug Abuse Patient Records regulations: The Federal rules restrict any use of the information to criminally investigate or prosecute any alcohol or drug abuse patient.[facility] HospitalIn the event this information is protected by the Federal Confidentiality of Alcohol and Drug Abuse Patient Records regulations: The Federal rules restrict any use of the information to criminally investigate or prosecute any alcohol or drug abuse patient.[facility] HospitalIn the event this information is protected by the Federal Confidentiality of Alcohol and Drug Abuse Patient Records regulations: The Federal rules restrict any use of the information to criminally investigate or prosecute any alcohol or drug abuse patient.[facility] HospitalIn the event this information is protected by the Federal Confidentiality of Alcohol and Drug Abuse Patient Records regulations: The Federal rules restrict any use of the information to criminally investigate or prosecute any alcohol or drug abuse patient.[facility] HospitalIn the event this information is protected by the Federal Confidentiality of Alcohol and Drug Abuse Patient Records regulations: The Federal rules restrict any use of the information to criminally investigate or prosecute any alcohol or drug abuse patient.[facility] HospitalIn the event this information is protected by the Federal Confidentiality of Alcohol and Drug Abuse Patient Records regulations: The Federal rules restrict any use of the information to criminally investigate or prosecute any alcohol or drug abuse patient.[facility] HospitalIn the event this information is protected by the Federal Confidentiality of Alcohol and Drug Abuse Patient Records regulations: The Federal rules restrict any use of the information to criminally investigate or prosecute any alcohol or drug abuse patient.[facility] HospitalIn the event this information is protected by the Federal Confidentiality of Alcohol and Drug Abuse Patient Records regulations: The Federal rules restrict any use of the information to criminally investigate or prosecute any alcohol or drug abuse patient.[facility] HospitalIn the event this information is protected by the Federal Confidentiality of Alcohol and Drug Abuse Patient Records regulations: The Federal rules restrict any use of the information to criminally investigate or prosecute any alcohol or drug abuse patient.[facility] HospitalIn the event this information is protected by the Federal Confidentiality of Alcohol and Drug Abuse Patient Records regulations: The Federal rules restrict any use of the information to criminally investigate or prosecute any alcohol or drug abuse patient.[facility] HospitalIn the event this information is protected by the Federal Confidentiality of Alcohol and Drug Abuse Patient Records regulations: The Federal rules restrict any use of the information to criminally investigate or prosecute any alcohol or drug abuse patient.[facility] HospitalIn the event this information is protected by the Federal Confidentiality of Alcohol and Drug Abuse Patient Records regulations: The Federal rules restrict any use of the information to criminally investigate or prosecute any alcohol or drug abuse patient.[facility] HospitalIn the event this information is protected by the Federal Confidentiality of Alcohol and Drug Abuse Patient Records regulations: The Federal rules restrict any use of the information to criminally investigate or prosecute any alcohol or drug abuse patient.[facility] HospitalIn the event this information is protected by the Federal Confidentiality of Alcohol and Drug Abuse Patient Records regulations: The Federal rules restrict any use of the information to criminally investigate or prosecute any alcohol or drug abuse patient.[facility] HospitalIn the event this information is protected by the Federal Confidentiality of Alcohol and Drug Abuse Patient Records regulations: The Federal rules restrict any use of the information to criminally investigate or prosecute any alcohol or drug abuse patient.[facility] HospitalIn the event this information is protected by the Federal Confidentiality of Alcohol and Drug Abuse Patient Records regulations: The Federal rules restrict any use of the information to criminally investigate or prosecute any alcohol or drug abuse patient.[facility] HospitalIn the event this information is protected by the Federal Confidentiality of Alcohol and Drug Abuse Patient Records regulations: The Federal rules restrict any use of the information to criminally investigate or prosecute any alcohol or drug abuse patient.[facility] HospitalIn the event this information is protected by the Federal Confidentiality of Alcohol and Drug Abuse Patient Records regulations: The Federal rules restrict any use of the information to criminally investigate or prosecute any alcohol or drug abuse patient.[facility] HospitalIn the event this information is protected by the Federal Confidentiality of Alcohol and Drug Abuse Patient Records regulations: The Federal rules restrict any use of the information to criminally investigate or prosecute any alcohol or drug abuse patient.[facility] HospitalIn the event this information is protected by the Federal Confidentiality of Alcohol and Drug Abuse Patient Records regulations: The Federal rules restrict any use of the information to criminally investigate or prosecute any alcohol or drug abuse patient.[facility] HospitalIn the event this information is protected by the Federal Confidentiality of Alcohol and Drug Abuse Patient Records regulations: The Federal rules restrict any use of the information to criminally investigate or prosecute any alcohol or drug abuse patient.[facility] HospitalIn the event this information is protected by the Federal Confidentiality of Alcohol and Drug Abuse Patient Records regulations: The Federal rules restrict any use of the information to criminally investigate or prosecute any alcohol or drug abuse patient.[facility] HospitalIn the event this information is protected by the Federal Confidentiality of Alcohol and Drug Abuse Patient Records regulations: The Federal rules restrict any use of the information to criminally investigate or prosecute any alcohol or drug abuse patient.[facility] HospitalIn the event this information is protected by the Federal Confidentiality of Alcohol and Drug Abuse Patient Records regulations: The Federal rules restrict any use of the information to criminally investigate or prosecute any alcohol or drug abuse patient.[facility] HospitalIn the event this information is protected by the Federal Confidentiality of Alcohol and Drug Abuse Patient Records regulations: The Federal rules restrict any use of the information to criminally investigate or prosecute any alcohol or drug abuse patient.[facility] HospitalIn the event this information is protected by the Federal Confidentiality of Alcohol and Drug Abuse Patient Records regulations: The Federal rules restrict any use of the information to criminally investigate or prosecute any alcohol or drug abuse patient.[facility] HospitalIn the event this information is protected by the Federal Confidentiality of Alcohol and Drug Abuse Patient Records regulations: The Federal rules restrict any use of the information to criminally investigate or prosecute any alcohol or drug abuse patient.[facility]In the event this information is protected by the Federal Confidentiality of Alcohol and Drug Abuse Patient Records regulations: The Federal rules restrict any use of the information to criminally investigate or prosecute any alcohol or drug abuse patient.[facility] HospitalIn the event this information is protected by the Federal Confidentiality of Alcohol and Drug Abuse Patient Records regulations: The Federal rules restrict any use of the information to criminally investigate or prosecute any alcohol or drug abuse patient.[facility]In the event this information is protected by the Federal Confidentiality of Alcohol and Drug Abuse Patient Records regulations: The Federal rules restrict any use of the information to criminally investigate or prosecute any alcohol or drug abuse patient.[facility]In the event this information is protected by the Federal Confidentiality of Alcohol and Drug Abuse Patient Records regulations: The Federal rules restrict any use of the information to criminally investigate or prosecute any alcohol or drug abuse patient.[facility]In the event this information is protected by the Federal Confidentiality of Alcohol and Drug Abuse Patient Records regulations: The Federal rules restrict any use of the information to criminally investigate or prosecute any alcohol or drug abuse patient.[facility]In the event this information is protected by the Federal Confidentiality of Alcohol and Drug Abuse Patient Records regulations: The Federal rules restrict any use of the information to criminally investigate or prosecute any alcohol or drug abuse patient.[facility]In the event this information is protected by the Federal Confidentiality of Alcohol and Drug Abuse Patient Records regulations: The Federal rules restrict any use of the information to criminally investigate or prosecute any alcohol or drug abuse patient.[facility]In the event this information is protected by the Federal Confidentiality of Alcohol and Drug Abuse Patient Records regulations: The Federal rules restrict any use of the information to criminally investigate or prosecute any alcohol or drug abuse patient.[facility]In the event this information is protected by the Federal Confidentiality of Alcohol and Drug Abuse Patient Records regulations: The Federal rules restrict any use of the information to criminally investigate or prosecute any alcohol or drug abuse patient.[facility]In the event this information is protected by the Federal Confidentiality of Alcohol and Drug Abuse Patient Records regulations: The Federal rules restrict any use of the information to criminally investigate or prosecute any alcohol or drug abuse patient.[facility]In the event this information is protected by the Federal Confidentiality of Alcohol and Drug Abuse Patient Records regulations: The Federal rules restrict any use of the information to criminally investigate or prosecute any alcohol or drug abuse patient.[facility]In the event this information is protected by the Federal Confidentiality of Alcohol and Drug Abuse Patient Records regulations: The Federal rules restrict any use of the information to criminally investigate or prosecute any alcohol or drug abuse patient.[facility]In the event this information is protected by the Federal Confidentiality of Alcohol and Drug Abuse Patient Records regulations: The Federal rules restrict any use of the information to criminally investigate or prosecute any alcohol or drug abuse patient.[facility]In the event this information is protected by the Federal Confidentiality of Alcohol and Drug Abuse Patient Records regulations: The Federal rules restrict any use of the information to criminally investigate or prosecute any alcohol or drug abuse patient.[facility]In the event this information is protected by the Federal Confidentiality of Alcohol and Drug Abuse Patient Records regulations: The Federal rules restrict any use of the information to criminally investigate or prosecute any alcohol or drug abuse patient.[facility]In the event this information is protected by the Federal Confidentiality of Alcohol and Drug Abuse Patient Records regulations: The Federal rules restrict any use of the information to criminally investigate or prosecute any alcohol or drug abuse patient.[facility]In the event this information is protected by the Federal Confidentiality of Alcohol and Drug Abuse Patient Records regulations: The Federal rules restrict any use of the information to criminally investigate or prosecute any alcohol or drug abuse patient.[facility]In the event this information is protected by the Federal Confidentiality of Alcohol and Drug Abuse Patient Records regulations: The Federal rules restrict any use of the information to criminally investigate or prosecute any alcohol or drug abuse patient.[facility]In the event this information is protected by the Federal Confidentiality of Alcohol and Drug Abuse Patient Records regulations: The Federal rules restrict any use of the information to criminally investigate or prosecute any alcohol or drug abuse patient.[facility]In the event this information is protected by the Federal Confidentiality of Alcohol and Drug Abuse Patient Records regulations: The Federal rules restrict any use of the information to criminally investigate or prosecute any alcohol or drug abuse patient.[facility] HospitalIn the event this information is protected by the Federal Confidentiality of Alcohol and Drug Abuse Patient Records regulations: The Federal rules restrict any use of the information to criminally investigate or prosecute any alcohol or drug abuse patient.[facility] Care Teams (unrecognized sec tion and content) Broom Handle Dipper Relationship Specialty Start Date End Date Tino Blake PCP - General Family Practice 12/08/16 Broom Handle Dipper Relationship Specialty Start Date End Date Tino Blake PCP - General Family Practice 12/08/16 Broom Handle Dipper Relationship Specialty Start Date End Date Tino Blake PCP - General Family Practice 12/08/16 Broom Handle Dipper Relationship Specialty Start Date End Date Tino Blake PCP - General Family Practice 12/08/16 Broom Handle Dipper Relationship Specialty Start Date End Date Tino Blake PCP - General Family Practice 12/08/16 Broom Handle Dipper Relationship Specialty Start Date End Date Tino Blake PCP - General Family Practice 12/08/16 Broom Handle Dipper Relationship Specialty Start Date End Date Tino Blake PCP - General Family Practice 12/08/16 Broom Handle Dipper Relationship Specialty Start Date End Date Tino Blake PCP - General Family Practice 12/08/16 Broom Handle Dipper Relationship Specialty Start Date End Date Tino Blake PCP - General Family Practice 12/08/16 Broom Handle Dipper Relationship Specialty Start Date End Date Tino Blake PCP - General Family Practice 12/08/16 Broom Handle Dipper Relationship Specialty Start Date End Date Tino Blake PCP - General Family Medicine 12/08/16 Broom Handle Dipper Relationship Specialty Start Date End Date Tino Blake PCP - General Family Medicine 12/08/16 Broom Handle Dipper Relationship Specialty Start Date End Date Tino Blake PCP - General Family Medicine 12/08/16 Broom Handle Dipper Relationship Specialty Start Date End Date Tino Blake PCP - General Family Medicine 12/08/16 Broom Handle Dipper Relationship Specialty Start Date End Date Tino Blake PCP - General Family Medicine 12/08/16 Broom Handle Dipper Relationship Specialty Start Date End Date Tino Blake PCP - General Family Medicine 12/08/16 Broom Handle Dipper Relationship Specialty Start Date End Date Tino Blake PCP - General Family Medicine 12/08/16 Broom Handle Dipper Relationship Specialty Start Date End Date Tino Blake PCP - General Family Medicine 12/08/16 Broom Handle Dipper Relationship Specialty Start Date End Date Tino Blake PCP - General Family Medicine 12/08/16 Broom Handle Dipper Relationship Specialty Start Date End Date HaydenTino mejia PCP - General Family Medicine 12/08/16 Broom Handle Dipper Relationship Specialty Start Date End Date Tino Blake PCP - General Family Medicine 12/08/16 Broom Handle Dipper Relationship Specialty Start Date End Date Tino Blake PCP - General Family Medicine 12/08/16 Broom Handle Dipper Relationship Specialty Start Date End Date BainbridgeTino mejia PCP - General Family Medicine 12/08/16 Broom Handle Dipper Relationship Specialty Start Date End Date Tino Blake PCP - General Family Medicine 12/08/16 Broom Handle Dipper Relationship Specialty Start Date End Date Hayden, Tino Soren PCP - General Family Medicine 12/08/16 Broom Handle Dipper Relationship Specialty Start Date End Date BainbridgeTino mejia PCP - General Family Medicine 12/08/16 Broom Handle Dipper Relationship Specialty Start Date End Date Tino Blake PCP - General Family Medicine 12/08/16 Broom Handle Dipper Relationship Specialty Start Date End Date HaydenTino mejia PCP - General Family Medicine 12/08/16 Broom Handle Dipper Relationship Specialty Start Date End Date Tino Blake PCP - General Family Medicine 12/08/16 Broom Handle Dipper Relationship Specialty Start Date End Date Tino Blake PCP - General Family Medicine 12/08/16 Broom Handle Dipper Relationship Specialty Start Date End Date Tino Blake PCP - General Family Medicine 12/08/16 Broom Handle Dipper Relationship Specialty Start Date End Date Tino Blake PCP - General Family Medicine 12/08/16 Broom Handle Dipper Relationship Specialty Start Date End Date Tino Blake PCP - General Family Medicine 12/08/16 Broom Handle Dipper Relationship Specialty Start Date End Date Tino Blake PCP - General Family Medicine 12/08/16 Broom Handle Dipper Relationship Specialty Start Date End Date Tino Blake PCP - General Family Medicine 12/08/16 Broom Handle Dipper Relationship Specialty Start Date End Date Tino Blake PCP - General Family Medicine 12/08/16 Broom Handle Dipper Relationship Specialty Start Date End Date Tino Blake PCP - General Family Medicine 12/08/16 Broom Handle Dipper Relationship Specialty Start Date End Date Tino Blake PCP - General Family Medicine 12/08/16 Broom Handle Dipper Relationship Specialty Start Date End Date Tino Blake MD PCP - General Family Medicine 12/08/16 Broom Handle Dipper Relationship Specialty Start Date End Date Tino Blake MD PCP - General Family Medicine 12/08/16 Broom Handle Dipper Relationship Specialty Start Date End Date Tino Blake MD PCP - General Family Medicine 12/08/16 Broom Handle Dipper Relationship Specialty Start Date End Date Tino Blake MD PCP - General Family Medicine 12/08/16 Broom Handle Dipper Relationship Specialty Start Date End Date Tino Blake MD PCP - General Family Medicine 12/08/16 Broom Handle Dipper Relationship Specialty Start Date End Date Tino Blake MD PCP - General Family Medicine 12/08/16 Broom Handle Dipper Relationship Specialty Start Date End Date Tino Blake MD PCP - General Family Medicine 12/08/16 Broom Handle Dipper Relationship Specialty Start Date End Date Tino Blake MD PCP - General Family Medicine 12/08/16 Broom Handle Dipper Relationship Specialty Start Date End Date Tino Blake MD PCP - General Family Medicine 12/08/16 Broom Handle Dipper Relationship Specialty Start Date End Date Tino Blake MD PCP - General Family Medicine 12/08/16 Broom Handle Dipper Relationship Specialty Start Date End Date Tino Blake MD PCP - General Family Medicine 12/08/16 Broom Handle Dipper Relationship Specialty Start Date End Date Tino Blake MD PCP - General Family Medicine 12/08/16 Broom Handle Dipper Relationship Specialty Start Date End Date Tino Blake MD PCP - General Family Medicine 12/08/16 Broom Handle Dipper Relationship Specialty Start Date End Date Tino Blake MD PCP - General Family Medicine 12/08/16 Broom Handle Dipper Relationship Specialty Start Date End Date Tino Blake MD PCP - General Family Medicine 12/08/16 Broom Handle Dipper Relationship Specialty Start Date End Date Tino Blake MD PCP - General Family Medicine 12/08/16 Broom Handle Dipper Relationship Specialty Start Date End Date Tino Blake MD PCP - General Family Medicine 12/08/16 Broom Handle Dipper Relationship Specialty Start Date End Date Tino Blake MD PCP - General Family Medicine 12/08/16 Broom Handle Dipper Relationship Specialty Start Date End Date Tino Blake MD PCP - General Family Medicine 12/08/16 Broom Handle Dipper Relationship Specialty Start Date End Date Tino Blake MD PCP - General Family Medicine 12/08/16 INFORMATION SOURCE (unrecogn ized section and content) DATE CREATED AUTHOR 07/13/2021 [facility] DATE CREATED AUTHOR AUTHOR'S ORGANIZ ATION 07/05/2022 [facility] DATE CREATED AUTHOR AUTHOR'S ORGANIZ ATION 05/04/2023 [facility] DATE CREATED AUTHOR AUTHOR'S ORGANIZ ATION 06/28/2023 [facility] Inactive Administered Medications - up to 3 most recent administrations Administered Medications (un recognized section and content) Medication Order MAR Action Action Date Dose Rate Site tocilizumab 562.4 mg in NaCl 0.9% 100 mL (ACTEMRA) 562.4 mg (8 mg/kg/dose 70.3 kg Order-specific weight), INTRAVENOUS, at 100 mL/hr, Administer over 60 Minutes, ONCE, 1 dose, On Wed03/31/23 at 1130, PROTECT FROM LIGHT -- TOTAL VOLUME = 100 ML Increased to 8mg/kg 01/20/23 EXP: 03/31/23 REF New Bag/Syringe/Bottle 03/31/2023 11:48 AM EST 562.4 mg 100 mL/hr Inactive Administered Medications - up to 3 most recent administrations Medication Order MAR Action Action Date Dose Rate Site tocilizumab 562.4 mg in NaCl 0.9% 100 mL (ACTEMRA) 562.4 mg (8 mg/kg/dose 70.3 kg Order-specific weight), INTRAVENOUS, at 100 mL/hr, Administer over 60 Minutes, ONCE, 1 dose, On Wed04/28/23 at 1230, PROTECT FROM LIGHT -- TOTAL VOLUME = 100 ML Increased to 8mg/kg 01/20/23 EXP: 04/27/22 REF New Bag/Syringe/Bottle 04/28/2023 12:40 PM EST 562.4 mg 100 mL/hr Inactive Administered Medications - up to 3 most recent administrations Medication Order MAR Action Action Dose Rate Site tocilizumab 562.4 mg in NaCl 0.9% 100 mL (ACTEMRA) 562.4 mg (8 mg/kg/dose 70.3 kg Order-specific weight), INTRAVENOUS, at 100 mL/hr, Administer over 60 Minutes, ONCE, 1 dose, On Wed05/26/23 at 1200, PROTECT FROM LIGHT -- TOTAL VOLUME = 100 ML Increased to 8mg/kg 01/20/23 EXP: 05/26/23 REF or room temp New Bag/Syringe/Bottle 05/26/2023 11:45 AM EDT 562.4 mg 100 mL/hr Inactive Administered Medications - up to 3 most recent administrations Medication Order MAR Action Action Date Dose Rate Site albuterol 2.5 mg /3 mL (0.083 %) 2.5 mg (PROVENTIL) 2.5 mg, INHALATION, ONCE, 1 dose, On Wed05/26/23 at 1400 Given 05/26/2023 1:55 PM EDT 2.5 mg FOR RECORDS PERTAINING TO PATIENTS WHO ARE OR HAVE BEEN ENROLLED IN A CHEMICAL DEPENDENCY/SUBSTANCEABUSE PROGRAM, SOME INFORMATION MAY BE OMITTED. This clinical summary was aggregated from multiple sources. Caution should be exercised in using it in the provision of clinical care. This summary normalizes information from multiple sources, and as a consequence, information in this document may materially change the coding, format and clinical context of patient data. In addition, data may be omitted in some cases. CLINICAL DECISIONS SHOULD BE BASED ON THE PRIMARY CLINICAL RECORDS. [facility]. provides no warranty or guarantee of the accuracy or completeness of information in this document.
--- NOTE | 2023-08-14 06:09 | PC.NURSE ---
Pain to right ear, reports ear feels full . Had recent cold symptoms.
--- NOTE | 2023-08-14 06:14 | ED.EAR1 ---
HPI - Ear Problem General Chief complaint: Ear Stated complaint: ear pain Time Seen by Provider: 08/14/23 06:11 Source: patient Mode of arrival: walk-in Limitations: no limitations History of Present Illness HPI Narrative: patient presents complaining of ear pain for 2 days. right ear. hearing decreased. No dizziness or headache. No fever or nausea. has mild discomfort of the left ear Related Data Home Medications ?Medication ?Instructions ?Recorded ?Confirmed buprenorphine 8 mg-naloxone 2 mg 1 tab sublingual DAILY 08/07/22 08/14/23 sublingual tablet gabapentin 600 mg tablet 600 mg PO Q8H 08/07/22 08/14/23 leflunomide 10 mg tablet 10 mg PO Q24H 08/07/22 08/14/23 buprenorphine 8 mg-naloxone 2 mg 1 film sublingual Q24H 04/13/23 06/01/23 sublingual film lisdexamfetamine 50 mg capsule 50 mg PO Q24H 04/13/23 08/14/23 (Vyvanse) Previous Rx's ?Medication ?Instructions ?Recorded azithromycin 250 mg tablet 250 mg PO DAILY 4 days #4 tabs 06/01/23 prednisone 20 mg tablet 40 mg (2 x 20 mg) PO DAILY 3 days 06/01/23 #6 tabs Allergies Allergy/AdvReac Type Severity Reaction Status Date / Time No Known Drug Allergies Allergy Verified 08/14/23 05:59 Review of Systems ROS Status of ROS 10 or more systems reviewed and unremarkable except as noted in history and below PFSH PFSH Social History Smoking status: Never smoker Exam Constitutional Vital Signs, click to edit/add: Last Vital Signs Temp 98.4 F 08/14/23 05:59 Pulse 114 H 08/14/23 05:59 Resp 20 08/14/23 05:59 BP 138/89 08/14/23 05:59 Pulse Ox 97 08/14/23 05:59 O2 Del Method Room Air 08/14/23 05:59 Common normals: no apparent distress, average body habitus, oriented x3, no limitations, healthy appearing, alert and well nourished HENMO Other: bilat red TMs R>L Eye Common normals: PERRL and EOMs intact bilaterally Respiratory Common normals: normal respiratory effort, no retractions, no use of accessory muscles and clear to auscultation bilaterally Cardio Common normals: regular rate, regular rhythm, S1 normal heart sound and S2 normal heart sound GI Common normals: Normal to inspection, nondistended, normoactive bowel sounds present and soft to palpation Extremity Common normals: normal to inspection and full ROM Neuro Common normals: oriented x3, CN's II-XII intact bilaterally, moves all extremities and no focal motor deficits Psych Appearance: grossly normal Course Vital Signs Vital signs: Vital Signs Temperature 98.4 F 08/14/23 05:59 Pulse Rate 114 H 08/14/23 05:59 Respiratory Rate 20 08/14/23 05:59 Blood Pressure 138/89 08/14/23 05:59 Pulse Oximetry 97 08/14/23 05:59 Oxygen Delivery Method Room Air 08/14/23 05:59 Temperature 98.4 F 08/14/23 05:59 Pulse Rate 114 H 08/14/23 05:59 Respiratory Rate 20 08/14/23 05:59 Blood Pressure 138/89 08/14/23 05:59 Pulse Oximetry 97 08/14/23 05:59 Oxygen Delivery Method Room Air 08/14/23 05:59 Medical Decision Making [facility] Narrative Medical decision making narrative: patient presents with 2 day history of ear pain. complains of right ear pain. Both TMs red but right side is worse. No neuro symptoms or headache. Given first dose of zithromax and discharged home to follow up with her doctor Discharge Plan Discharge Stand Alone Forms: Portal Instructions Chief Complaint: Ear Clinical Impression: Otitis media Patient Disposition: Home, Self-Care Prescriptions / Home Meds: No Action gabapentin 600 mg tablet 600 mg PO Q8H leflunomide 10 mg tablet 10 mg PO Q24H buprenorphine-naloxone 8-2 mg tablet, sublingual 1 tab sublingual DAILY lisdexamfetamine [Vyvanse] 50 mg capsule 50 mg PO Q24H buprenorphine-naloxone 8-2 mg film 1 film sublingual Q24H azithromycin 250 mg tablet 250 mg PO DAILY 4 Days Qty: 4 0RF Rx Instructions: start on day 2 of therapy prednisone 20 mg tablet 40 mg PO DAILY 3 Days Qty: 6 0RF Print Language: Kiswahili Instructions: Ear Infection (ED) Additional Instructions: follow up with your doctor next week for recheck Referrals: Niya Santiago [facility] SHAGGER [Primary Care Provider] - 1 week
[2023-08-14] MEDS: AZITHROMYCIN 250 MG TABLET 500 MG PO (06:23)
== END 2023-08-14 06:31 | disposition home or self-care (01) ==
PROVIDERS: Emergency Provider Internal Medicine; PCP Nurse Practitioner
DX: H66.90 Otitis media, unspecified, unspecified ear (principal)
CPT/HCPCS: 99283

== ENCOUNTER 2023-11-16 10:39 | Emergency (ER) | payer SELFPAY ==
[2023-11-16 10:50] VITALS: BP 147/98; PULSE 94; TEMP 36.7; O2SAT 98; BMI 28.2
[2023-11-16 11:20] VITALS: PULSE 68
--- NOTE | 2023-11-16 14:50 | ED.EXTPRO1 ---
HPI - Extremity Problem General Chief complaint: Extremity Problem, Nontraumatic Stated complaint: UPPER EXTREMITY PAIN Time Seen by Provider: 11/16/23 11:00 Source: patient Mode of arrival: walk-in Limitations: no limitations History of Present Illness HPI Narrative: The patient presented to us with a bilateral wrist pain, mentioned that she have a history of rheumatoid arthritis she has not been able to get her in infusion treatment for the rheumatoid arthritis because she have no medical insurance, patient denies any other complaints Related Data Home Medications ?Medication ?Instructions ?Recorded ?Confirmed buprenorphine 8 mg-naloxone 2 mg 1 tab sublingual DAILY 08/07/22 08/14/23 sublingual tablet gabapentin 600 mg tablet 600 mg PO Q8H 08/07/22 08/14/23 leflunomide 10 mg tablet 10 mg PO Q24H 08/07/22 08/14/23 buprenorphine 8 mg-naloxone 2 mg 1 film sublingual Q24H 04/13/23 06/01/23 sublingual film lisdexamfetamine 50 mg capsule 50 mg PO Q24H 04/13/23 08/14/23 (Vyvanse) Previous Rx's ?Medication ?Instructions ?Recorded azithromycin 250 mg tablet 250 mg PO DAILY 4 days #4 tabs 06/01/23 prednisone 20 mg tablet 40 mg (2 x 20 mg) PO DAILY 3 days 06/01/23 #6 tabs meloxicam 15 mg tablet 15 mg PO DAILY PRN pain #14 tabs 11/16/23 prednisone 20 mg tablet 40 mg (2 x 20 mg) PO DAILY 5 days 11/16/23 #10 tabs Allergies Allergy/AdvReac Type Severity Reaction Status Date / Time No Known Drug Allergies Allergy Verified 08/14/23 05:59 Review of Systems ROS Status of ROS 10 or more systems reviewed and unremarkable except as noted in history and below PFSH PFSH Social History Smoking status: Never smoker Little interest or pleasure in doing things: not at all Feeling down, depressed, or hopeless: not at all Exam Narrative Exam Narrative: Nurses notes and vital signs reviewed and patient is not hypoxic. Bilateral arm shows that the patient have tenderness upon palpation both wrists with small effusion no redness no hotness General: Well-appearing and in no apparent distress. Skin: Warm, dry, no pallor noted. No rash. Head: Normocephalic, atraumatic. Neck: Supple, non-tender. Eye: Pupils are equal, round and EOMI. No scleral icterus. Ears, Nose, Mouth, and Throat: TM are clear, no nasal mucosal hypertrophy. Oral mucosa is moist, no posterior oropharynx erythema, uvula is mid-line Cardiovascular: Regular Rate and Rhythm without murmur, gallop or rub. Respiratory: No accessory muscle use or respiratory distress. Lungs are clear to auscultation, no wheezing, rales or rhonchi Chest Wall: no tenderness Back: No midline thoracic or lumbar vertebral tenderness. No CVA tenderness Musculoskeletal: normal ROM, no calf or popliteal tenderness, no lower extremity edema/swelling GI: Abdomen is soft, non-distended. Normal bowel sounds. No masses appreciated. No tenderness to palpation. No rebound, guarding, or rigidity noted. Neurological: A&O x4. No cranial nerve dysfunction observed. No truncal ataxia. Moves all extremities. Sensation intact. Psychiatric: Cooperative and interactive. Normal mood and affect. Constitutional Vital Signs, click to edit/add: Last Vital Signs Temp 98.1 F 11/16/23 10:50 Pulse 68 11/16/23 11:20 Resp 18 11/16/23 10:50 BP 147/98 H 11/16/23 10:50 Pulse Ox 98 11/16/23 10:50 Course Vital Signs Vital signs: Vital Signs Temperature 98.1 F 11/16/23 10:50 Pulse Rate 94 H 11/16/23 10:50 Respiratory Rate 18 11/16/23 10:50 Blood Pressure 147/98 H 11/16/23 10:50 Pulse Oximetry 98 11/16/23 10:50 Temperature 98.1 F 11/16/23 10:50 Pulse Rate 68 11/16/23 11:20 Respiratory Rate 18 11/16/23 10:50 Blood Pressure 147/98 H 11/16/23 10:50 Pulse Oximetry 98 11/16/23 10:50 MDM - Extremity (Nontraumatic) MDM Narrative Medical decision making narrative: The patient is coming with a mild flareup of her rheumatoid arthritis she was started on prednisone for the next 5 days in addition to being treated with Mobic for pain The patient is to follow up with primary care physician in next 2-3 days or to return to the emergency department should any of the signs or symptoms worsen or new symptoms develop. The patient agrees with the following Diagnosis and Treatment plan and the patient will be discharged home. Discharge Plan Discharge Chief Complaint: Extremity Problem, Nontraumatic Clinical Impression: Rheumatoid arthritis flare Patient Disposition: Home, Self-Care Time of Disposition Decision: 12:11 Condition: Good Prescriptions / Home Meds: New prednisone 20 mg tablet 40 mg PO DAILY 5 Days Qty: 10 0RF meloxicam 15 mg tablet 15 mg PO DAILY PRN (Reason: pain) Qty: 14 0RF No Action gabapentin 600 mg tablet 600 mg PO Q8H leflunomide 10 mg tablet 10 mg PO Q24H buprenorphine-naloxone 8-2 mg tablet, sublingual 1 tab sublingual DAILY lisdexamfetamine [Vyvanse] 50 mg capsule 50 mg PO Q24H buprenorphine-naloxone 8-2 mg film 1 film sublingual Q24H azithromycin 250 mg tablet 250 mg PO DAILY 4 Days Qty: 4 0RF Rx Instructions: start on day 2 of therapy prednisone 20 mg tablet 40 mg PO DAILY 3 Days Qty: 6 0RF Print Language: Occitan Instructions: Arthritis (ED) Referrals: Niya Santiago COMMUNITY THEATER ACTOR [Primary Care Provider] - 1 week Discharge Date/Time: 11/16/23 12:22
== END 2023-11-16 12:22 | disposition home or self-care (01) ==
PROVIDERS: Emergency Provider Emergency Medicine; PCP Nurse Practitioner
DX: M06.9 Rheumatoid arthritis, unspecified (principal)
CPT/HCPCS: 99283

== ENCOUNTER 2023-12-26 04:12 | Emergency (ER) | payer SELFPAY ==
[2023-12-26 04:17] VITALS: BP 109/77; PULSE 88; TEMP 36.5; O2SAT 97; BMI 28.2
--- OUTSIDE RECORDS SUMMARY | 2023-12-26 04:24 | XMS_ITS | CCD ---
Author Organization [facility] CliniSymi Care Team Providers Care Acquisitions Assistant Name Role Phone Unavailable Primary Care Provider UnavailTino Azar Primary Care Provider 1( [phone] ALEX REINOSO Attending Unavailable Tino Blake Primary Care Provider 1( [phone] Tino Blake Primary Care Provider Tino Blake [...] Admitting Unavailable ADRIANA STEPHENS Attending Unavailable REQUEST, NONE LISTED Primary Care Unavaila ble ALCIDES ., SINAN CRUZ Consulting UnavailRIMMA Figueredo Consulting Unavailable Hayden CID, Tino Óscar Primary Care Provider NIYA SANTIAGO Attending Unavailable NIYA SANTIAGO Attending Unavailable NIYA SANTIAGO Attending Unavailable Hayden CID, Tino Óscar Primary [facility] S[facility]F Referring Unavailable HAYDEN, [facility] Primary [facility] Unavaila ble LIZ, FARIBA M Attending Unavailable JUAN DANIEL LEOS Referring Unavailable BOODY, [facility] Unavaila ble SELF Referring Unavailable HAYDEN, [facility] Unavaila ble HAYDEN, [facility] Unavaila ble LIZ, FARIBA M Attending Unavailable HAYDEN, [facility] Unavaila ble HAYDEN, [facility] Unavaila ble HAYDEN, [facility] Unavaila ble HAYDEN, [facility] Unavaila ble LIZ, FARIBA M Referring Unavailable LIZ FARIBA M Attending Unavailable [facility] ble HAYDEN, [facility] Unavaila ble LIZ, FARIBA M Referring Unavailable [facility] Unavaila ble LIZ, FARIBA M Attending Unavailable [facility] Unavaila ble Madhu Voss MD Primary Care Provider Jack BREAKFAST HOST, Niya Unavailable Allergies Allergy Classification Reported Allergen(s) Allergy Type Date of Onset Reaction(s) Facility (20 sources) inFLIXimab; Translations: [INFLIXIMAB-AXXQ ] Drug Allergy 10-22-2022 Anaphylaxis [facility] (1 source) inFLIXimab Drug Allergy 10-22-2022 Anaphylaxis [facility] Medications Current Medications Medication Drug Class(es) Dates [...] mg from all sources in 24 hours. [id number] 200 actuat albuterol 0.09 mg/actuat metered dose inhaler (20 sources) beta2-Adrenergic Agonist Start: 12-20-2023 End: 01-19-2024 take 2 puff(s) by inhalation every six hours for wheezing albuterol HFA 90 mcg/act inhaler Indications: Wheezing Inhale 2 puffs every 6 (six) hours if needed for wheezing or shortness of breath 18 g 1 12/20/2023 01/19/2024 Active Start: 05-26-2023 take 2 puff(s) by in halation every four hours as needed for wheezing [...] daily 30 ampule 0 09/15/2020 Active buprenorphine 8 mg / naloxone 2 mg sublingual film (20 sources) Partial Opioid Agonist, Opioid Antagonist Buprenorphine HCl-Na loxone HCl (Suboxone) 8-[address] 2 Film under the tongue in the morning. Active End: 05-26-2023 buprenorphine-naloxone (SUBO XONE) 8-2 mg film Dissolve under the tongue once daily. Prescribed by outside physician 0 05/26/2023 Discontinued Comment on above: Dissolve under the t ongue once daily. Prescribed by outside physician buprenorphine HCl/naloxone HCl (BUPRENORPHINE-NALOXONE BUCCAL) (7 sources) Start: buprenorphine HCl/naloxone HCl (BUPRENORPHINE-NALOX ONE BUCCAL) Buprenorphine-Naloxo ne Active 1 FILM SL Q24H April 13, 2023 12:00am 0 08/07/2022 Active Comment on above: Buprenorphine-Naloxo ne Active 1 FILM SL Q24H April 13, 2023 12:00am 1 ml carboprost 0.25 mg/ml injection (1 source) Prostaglandin Analog Start: carboprost (HEMABATE) injection 250 mcg cephalexin 500 mg oral capsule (1 source) Cephalosporin Antibacterial Start: End: take 1 capsule by mouth four times daily cephALEXin (KEFLEX) 500 MG capsule Take 1 capsule by mouth 4 times daily for 7 days 28 capsule 0 05/12/2019 05/19/2019 Active cetirizine hydrochloride 10 mg oral tablet (8 sources) Histamine-1 Receptor Antagonist Start: 024 take 1 tablet by mouth once daily cetirizine (ZYRTEC) 10 mg tablet Indications: Wheezing Take 1 tablet by mouth once daily. 30 tablet 0 05/26/2023 Active Comment on above: Take 1 tablet by jude th once daily. cholecalciferol 0.025 mg oral capsule (20 sources) Vitamin D Start: 022 take 2 capsules by mouth once daily [...] Comment on above: Take 2 capsules by out once daily. clobetasol propionate 0.5 mg/ml topical cream (7 sources) Corticosteroid Start: 2023 clobetasol (TEMOVATE) 0.05 [...] 20 mg/ml oral suspension (1 source) Uncompetitive T-wnbpfn-J-aspartate Receptor Antagonist, Sigma-1 Agonist Start: 2020 End: [...] Topical, PRN, Dry Skin, nipple discomfort, Starting Wed07/12/19 at 1354, leflunomide 10 mg oral tablet (20 sources) Antirheumatic Agent Start: 05-25-2023 take 1 tablet by mouth once daily leflunomide (Arava) 10 MG tablet Take 10 mg by mouth Daily 05/25/2023 Active Start: 07-15-2022 End: 12-18-2022 take 1 tablet [...] 1 TABLET BY JUDE TH EVERY DAY lisdexamfetamine dimesylate 50 mg oral capsule (20 sources) Central Nervous System Stimulant Start: 024 End: take 1 capsule by mouth in the morning lisdexamfetamine (Vyvanse) 50 MG capsule Indications: Adult ADHD (attention deficit hyperactivity disorder) (CMS/HCC) Take 1 capsule (50 mg) by mouth in the morning. Do not start before December 20, 2023. 30 capsule 12/20/2023 01/19/2024 Active Start: 01-11-2023 End: 05-26-2023 take 1 capsule by mouth once VYVANSE 50 mg capsule Vinicio e 1 capsule by mouth every afternoon. 0 01/11/2023 05/26/2023 Discontinued Start: 10-08-2022 End: 01-20-2023 take 1 capsule by mouth once VYVANSE 40 mg capsule Vinicio e 1 capsule by mouth every afternoon. 0 10/08/2022 01/20/2023 Discontinued Comment on above: Take 1 capsule by mo uth every afternoon. Miconazole (1 source) Azole Antifungal Start: 019 End: Miconazole Nitrate Applicator (MICONAZOLE 3 APPLICATOR) 200 & 2 MG-% (9GM) KIT Place 1 applicator vaginally nightly for 3 days Yeast infection in . 1 kit 0 12/03/2018 12/06/2018 Active miSOPROStol 0.1 mg oral tablet (1 source) Prostaglandin E1 Analog Start: misoprostol (CYTOTEC) tablet 900 mcg nabumetone 750 mg oral tablet (8 sources) Nonsteroidal Anti-inflammatory Drug Start: 023 End: [...] Comment on above: [facility] With [facility] for 2 weeks . No other nsaids. Take 2 tablets by mo [facility] once daily for 14 days, THEN 1 tablet once daily for 14 days. With breakfast. Then stop. No other nsaids.. Take 4 tablets by mo [facility] once daily for 7 days, THEN 3 tablets once daily for 7 days, THEN 2 tablets once daily for 7 days, THEN 1 tablet once daily for 7 days. With breakfast. No other nsaids. Take 2 tablets by mo [facility] once daily for 5 days. Respiratory Therapy [...] Take 80 mg by mouth once daily. 2 ml butorphanol tartrate 2 mg/ml injection [...] above: Take 1 capsule by mo uth two times a week. (FOR EXAMPLE ONE CAPSULE ON WEDNESDAY AND ONE ON WEDNESDAY) FOR A TOTAL OF 6 WEEKS, WITH A MEAL Take 1 capsule by mo uth two times a week. (FOR EXAMPLE ONE CAPSULE ON WEDNESDAY AND ONE ON WEDNESDAY) FOR A TOTAL OF 8 WEEKS, WITH A MEAL gabapentin 600 mg oral tablet (20 sources) Anti-epileptic Agent Start: 3 End: 4 take 1 tablet by mouth three times daily for anxiety gabapentin (NEURONTIN) 600 mg tablet TAKE 1 TABLET BY MOUTH 3 TIMES A DAY FOR ANXIETY 0 04/03/2022 05/26/2023 Discontinued Comment on above: TAKE 1 TABLET BY JUDE 3 TIMES A DAY FOR ANXIETY misoprostol (CYTOTEC) pre-split tablet TABS 25 mcg (1 source) Start: 0 End: 0 misoprostol (CYTOTEC) pre-split tablet TABS 25 mcg 1 ml oxytocin 10 unt/ml injection (1 source) Oxytocic Start: 0 End: 0 oxytocin (PITOCIN) injection 10 Units Start: 07-12-2019 [...] therapy finding; Translations: [Other specified counseling] Episodic Anxiety disorders (1 source) Anxiety; Translations: [Anxiety disorder, unspecified] Onset: 3 01-25-2023 Chronic Attention-deficit, conduct, and disruptive behavior disorders (1 source) Adult attention deficit hyperactivity disorder ; Translations: [Attention-deficit hyperactivity disorder, unspecified type] Onset: 3 07-22-2023 Chronic Attention-deficit, conduct, and disruptive behavior disorders (1 source) Attention deficit hyperactivity disorder, combined type; Translations: [Attention-deficit hyperactivity disorder, combined type] Onset: 3 01-25-2023 Chronic Diseases of white blood cells (1 source) Neutropenia; Translations: [Neutropenia, unspecified] Onset: 4 10-21-2023 Chronic Hypertension complicating ; childbirth and the puerperium (14 sources) Hypertension complicating , childbirth and the puerperium; Translations: [Hypertension complicating ] Onset: 9 11-24-2018 Chronic Hypertension complicating ; childbirth and the puerperium (1 source) Hypertension complicating ; Translations: [Hypertension affecting in first trimester] Onset: 9 11-24-2018 Mood disorders (1 source) Mild depression; Translations: [Mild depression] Onset: 4 05-03-2023 Chronic Mycoses (1 source) Mycosis; Translations: [Yeast infection] Episodic Nausea and vomiting (1 source) Nausea; Translations: [Nausea] Onset: 4 10-21-2023 Episodic Nutritional deficiencies (20 sources) Vitamin D deficiency; Translations: [Vitamin D deficiency, unspecified] Onset: 8 04-23-2017 Chronic Other aftercare (11 sources) Patient encounter status; Translations: [Encounter for therapeutic drug level monitoring] Episodic Other aftercare (2 sources) Taking high risk medication; Translations: [Other terminal superintendent (current) drug therapy] Episodic Other connective tissue disease (5 sources) Synovitis; Translations: [Synovitis and tenosynovitis, unspecified] 10-22-2022 Episodic Other connective tissue disease (1 source) Pain in right foot; Translations: [Pain in right foot] 01-20-2023 Episodic Other ear and sense organ disorders (1 source) Hearing loss in left ear; Translations: [Unspecified hearing loss, left ear] Onset: 4 05-03-2023 Chronic Other inflammatory condition of skin (1 source) Psoriasis; Translations: [Psoriasis, unspecified] Onset: 4 03-11-2023 Chronic Other lower respiratory disease (3 sources) Wheezing; Translations: [Wheezing] Onset: 4 05-26-2023 Episodic Other nervous system disorders (1 source) Carpal tunnel syndrome; Translations: [Carpal tunnel syndrome, unspecified upper limb] Onset: 4 05-03-2023 Chronic Other nervous system disorders (1 source) Carpal tunnel syndrome of right wrist; Translations: [Carpal tunnel syndrome of right wrist] Other and delivery including normal (10 sources) Normal ; Translations: [Term ] Onset: 0 Resolved: 0 07-13-2019 Episodic Other skin disorders (3 sources) Mass of skin; Translations: [Localized swelling, mass and lump, unspecified] 04-28-2023 Episodic Other upper respiratory infections (4 sources) Nasopharyngitis; Translations: [Acute upper respiratory infection, unspecified] Onset: 2 10-21-2023 Episodic Phlebitis; thrombophlebitis and thromboembolism (1 source) [...] 12-30-2017 Episodic Other aftercare (1 source) Other senior living (current) drug therapy; Translations: [OTH HALFWAY CURRENT DRUG THERAPY] Onset: 10-08-2021 Episodic Other [...] antibody positive] Onset: 12-30-2017 12-19-2018 Episodic Other nutritional; endocrine; and metabolic disorders (1 source) Overweight in adulthood with body mass index of 25 or more but less than 30; Translations: [Body mass index (BMI) 29.0-29.9, adult] Onset: 03-11-2023 03-11-2023 Episodic Other screening for suspected conditions (not mental disorders or infectious disease) (2 sources) Other specified abnormal findings of blood chemistry; Translations: [Anti-cyclic citrullinated peptide antibody positive] Onset: 12-30-2017 12-19-2018 Episodic Residual codes; unclassified (1 source) Tobacco user; Translations: [Tobacco use] Onset: 05-03-2023 05-03-2023 Episodic Superficial injury; contusion (1 source) Contusion of left foot, initial encounter; Translations: [CONTUSION LEFT FOOT INITIAL ENC] Onset: 10-08-2021 Episodic Unclassified (1 source) COUGH, UNSPECIFIED; Translations: [COUGH, UNSPECIFIED] Onset: 08-15-2021 Viral infection (1 source) Human papilloma virus infection; Translations: [Papillomavirus as the cause of diseases classified elsewhere] Onset: 05-03-2023 05-03-2023 Episodic Results Test Name Value Interpretation Reference Range Facility [facility] 08-16-2023 [facility] Telephone ([place]) ANY LUDWIG ([id number]) 1985 F Date Time Provider Department 08/16/23 FARIBA HILL During your visit today, we recorded the following information about you: Yessy Gonzalez, RN 08/16/2023 3:33 PM Signed Pt scheduled for infusion 08/18/23. Noted pt in ED 08/14/23. Started on antibiotics for ear infection. Please call patient to reschedule infusion 2 weeks after completion of antibiotics. Devi Wagner 08/16/2023 4:04 PM Signed LM on VM informing patient that infusion has been cancelled due to being on antibiotics. Need to reschedule the 08/17 infusion Devi Wagner August 16, 2023 4:04 PM Devi Wagner 08/17/2023 10:57 AM Signed Spoke with patient Rescheduled due to illness- pt requests Fridays only Scheduled a few out also Devi Wagner August 17, 2023 10:57 AM Allergies As of Date: 08/16/2023 Noted Allergy Reaction AVSOLA (INFLIXIMAB-AXXQ) 10/22/2022 10 - Anaphylaxis Comments: Adverse reaction, chest tightness, shortness of breath and trouble breathing Date Reviewed: 06/07/2023 Reviewed by: Fariba Hill, [employer].DIRECTOR OF CLOUD SERVICES - Fully Assessed Prescriptions as of 08/17/2023 - buprenorphine HCl/naloxone HCl (BUPRENORPHINE-NALOXO NE BUCCAL) [...] once daily. Problem List As Of Date 08/16/2023 Noted Resolved Vitamin D deficiency [E55.9] 04/23/2017 Cyclic citrullinated peptide (CCP) antibody pos*12/30/2017 Rheumatoid factor positive [R76.8] 12/30/2017 Seropositive rheumatoid arthritis (HCC) [M05.9] 12/30/2017 Smokes and motivated to quit [F17.200] 12/30/2017 Encounter Status:Closed by DEVI WAGNER on 08/17/[address] [facility] CNCOon 06-28-2023 CNCO Letter Text [facility] CNPNon 06-25-2023 CNPN Telephone ([place]) ANY LUDWIG ([id number]) 1985 F Date Time Provider Department 06/25/23 FARIBA HILL During your visit today, we recorded the following information about you: Sergio OrtizBebetoa 06/25/2023 10:16 AM Signed Called and LMOM for patient to call the office back so we can get her rescheduled from her appointment and Infusion on 06/23/2023 that she cancel. Please warm transfer to [facility] Allergies As of Date: 06/25/2023 Noted Allergy Reaction AVSOLA (INFLIXIMAB-AXXQ) 10/22/2022 10 - Anaphylaxis Comments: Adverse reaction, chest tightness, shortness of breath and trouble breathing Date Reviewed: 06/07/2023 Reviewed by: Fariba Hill, [place].DIRECTOR OF CLOUD SERVICES - Fully Assessed Prescriptions as of 06/25/2023 [...] Encounter Status:Closed by YESSY GALARZA on 06/25/[address] [facility] Kylah 05-28-2023 ANTHONYN Telephone ([place]) ANY LUDWIG ([id number]) 1985 F Date Time Provider Department 05/28/23 [...] Encounter Status:Closed by KORIN PUGA on 05/28/23 Normal [facility] 25(OH)D3 SerPl-mCncon 2023 25-hydroxyvitamin D3 [Mass/Vol] 29.2 ng/mL Low 31.0-80.0 [facility] Comment on above: Order Comment: Speci men Type: BLOOD SPECIMENOrdering Facility: [facility] Address: [address] [place] [address] Performed By: #### 1 989-3 ####[facility] LABCLIA [id number] [place] [address] [place] ALT SerPl-cCncon 05-26-2023 ALT [Catalytic activity/Vol] 17 U/L Normal 7-38 [facility] Comment on above: Order Comment: Speci men Type: BLOOD SPECIMENOrdering Facility: [facility] Address: [address] [place] [address] Performed By: #### 1 988-5, 1919-09, CRE, 6 ####[facility] LABCLIA [id number] [place] [address] [place] ALT/SGPTon 05-26-2023 ALT [Catalytic activity/Vol] 17 U/L 7 - 38 U/L [facility] AST SerPl-cCncon 05-26-2023 AST [Catalytic activity/Vol] 21 U/L Normal 13-35 [facility] Comment on above: Order Comment: Speci men Type: BLOOD SPECIMENOrdering Facility: [facility] Address: [address] [place] [address] Performed By: #### 1 988-5, 1919-09, CRE, 1741-07 ####[facility] LABCLIA [id number] [facility] [place] [id number] [place] AST/SGOT BLDon 05-26-2023 AST [Catalytic activity/Vol] 21 U/L 13 - 35 U/L [facility] C-REACTIVE PROTEIN (CRP)on 0 05-26-2023 CRP [Mass/Vol] <0.9 mg/dL [facility] CBC W Auto Differential pane l (Bld)on 05-26-2023 Basophils (Bld) [#/Vol] 0.04 10*3/uL <0.11 k/uL [facility] Basophils/100 WBC (Bld) 0.7 % [facility] Differential cell count method Nom (Bld) Auto [facility] Eosinophils (Bld) [#/Vol] 0.43 10*3/uL <0.46 k/uL [facility] Eosinophils/100 WBC (Bld) 7.3 % [facility] Erythrocyte distribution width (RBC) [Ratio] 14.0 % 11.5 - 15.0 % [facility] Hematocrit (Bld) [Volume fraction] 34.2 % Low 36.0 - 46.0 % [facility] Hemoglobin (Bld) [Mass/Vol] 11.2 g/dL Low 11.5 - 15.5 g/dL [facility] Immature granulocytes (Bld) [#/Vol] <0.10 k/uL [facility] Immature granulocytes/100 WBC (Bld) 0.2 % [facility] Lymphocytes (Bld) [#/Vol] 3.83 10*3/uL 1.00 - 4.00 k/uL [facility] Lymphocytes/100 WBC (Bld) 65.2 % [facility] MCH (RBC) [Entitic mass] 27.3 pg 26.0 - 34.0 pg [facility] MCHC (RBC) [Mass/Vol] 32.7 g/dL 30.5 - 36.0 g/dL [facility] MCV (RBC) [Entitic vol] 83.4 fL 80.0 - 100.0 fL [facility] Monocytes (Bld) [#/Vol] 0.36 10*3/uL <0.87 k/uL [facility] Monocytes/100 WBC (Bld) 6.1 % [facility] Neutrophils (Bld) [#/Vol] 1.20 10*3/uL Low 1.45 - 7.50 k/uL [facility] Neutrophils/100 WBC (Bld) 20.5 % [facility] Nucleated RBC (Bld) [#/Vol] <0.01 k/uL [facility] Nucleated RBC/100 WBC (Bld) [Ratio] 0.0 /100 WBC [facility] Platelet mean volume (Bld) [Entitic vol] 11.3 fL 9.0 - 12.7 fL [facility] Platelets (Bld) [#/Vol] 172 10*3/uL 150 - 400 k/uL [facility] RBC (Bld) [#/Vol] 4.10 10*6/uL 3.90 - 5.2 0 m/uL [facility] WBC (Bld) [#/Vol] 5.87 10*3/uL 3.70 - 11. 00 k/uL [facility] Basophils (Bld) [#/Vol] 0.04 10*3/uL Normal <0.11 [facility] Comment on above: Order Comment: Speci men Type: BLOOD SPECIMENOrdering Facility: [facility] Address: [address] [place] [address] Performed By: #### 4 537-7, 97073-7 ####[facility] LABCLIA [id number] [place] [address] [place] Basophils/100 WBC (Bld) 0.7 % Normal [facility] Comment on above: Order Comment: Speci men Type: BLOOD SPECIMENOrdering Facility: [facility] Address: [address] [place] [address] Performed By: #### 4 537-7, 99756-6 ####[facility] LABCLIA [id number] [place] [address] [place] Differential cell count method Nom (Bld) Auto Normal [facility] Comment on above: Order Comment: Speci men Type: BLOOD SPECIMENOrdering Facility: [facility] Address: [address] [place] [address] Performed By: #### 4 537-7, 12199-6 ####[facility] LABCLIA [id number] [place] [address] [place] Eosinophils (Bld) [#/Vol] 0.43 10*3/uL Normal <0.46 [facility] Comment on above: Order Comment: Speci men Type: BLOOD SPECIMENOrdering Facility: [facility] Address: [address] [place] [address] Performed By: #### 4 537-7, 22008-9 ####[facility] LABIA [id number] [place] [address] [place] Eosinophils/100 WBC (Bld) 7.3 % Normal [facility] Comment on above: Order Comment: Speci men Type: BLOOD SPECIMENOrdering Facility: [facility] Address: [address] [place] [address] Performed By: #### 4 537-7, 13584-8 ####[facility] LABIA [id number] [place] [address] [place] Erythrocyte distribution width (RBC) [Ratio] 14.0 % Normal 11.5-15.0 [facility] Comment on above: Order Comment: Speci men Type: BLOOD SPECIMENOrdering Facility: [facility] Address: [address] [place] [address] Performed By: #### 4 537-7, 69573-4 ####[facility] LABIA [id number] [place] [address] [place] Hematocrit (Bld) [Volume fraction] 34.2 % Low 36.0-46.0 [facility] Comment on above: Order Comment: Speci men Type: BLOOD SPECIMENOrdering Facility: [facility] Address: [address] [place] [address] Performed By: #### 4 537-7, 39768-8 ####[facility] LABIA [id number] [place] [address] [place] Hemoglobin (Bld) [Mass/Vol] 11.2 g/dL Low 11.5-15.5 [facility] Comment on above: Order Comment: Speci men Type: BLOOD SPECIMENOrdering Facility: [facility] Address: [address] [place] [address] Performed By: #### 4 537-7, 94454-8 ####[facility] LABCLIA [id number] [place] [address] [place] Immature granulocytes (Bld) [#/Vol] 10*3/uL Normal <0.10 [facility] Comment on above: Order Comment: Speci men Type: BLOOD SPECIMENOrdering Facility: [facility] Address: [address] [place] [address] Performed By: #### 4 537-7, 69231-9 ####[facility] LABCLIA [id number] [place] [address] [place] Immature granulocytes/100 WBC (Bld) 0.2 % Normal [facility] Comment on above: Order Comment: Speci men Type: BLOOD SPECIMENOrdering Facility: [facility] Address: [address] [place] [address] Performed By: #### 4 537-7, 79784-7 ####[facility] LABCLIA [id number] [place] [address] [place] Lymphocytes (Bld) [#/Vol] 3.83 10*3/uL Normal 1.00-4.00 [facility] Comment on above: Order Comment: Speci men Type: BLOOD SPECIMENOrdering Facility: [facility] Address: [address] [place] [address] Performed By: #### 4 537-7, 18563-2 ####[facility] LABCLIA [id number] [place] [address] [place] Lymphocytes/100 WBC (Bld) 65.2 % Normal [facility] Comment on above: Order Comment: Speci men Type: BLOOD SPECIMENOrdering Facility: [facility] Address: [address] [place] [address] Performed By: #### 4 537-7, 83374-9 ####[facility] LABIA [id number] [place] [address] [place] MCH (RBC) [Entitic mass] 27.3 pg Normal 26.0-34.0 [facility] Comment on above: Order Comment: Speci men Type: BLOOD SPECIMENOrdering Facility: [facility] [facility] Address: [address] [place] [address] Performed By: #### 4 537-7, 54762-5 ####[facility] LABIA [id number] [place] [address] [place] MCHC (RBC) [Mass/Vol] 32.7 g/dL Normal 30.5-36.0 [facility] Comment on above: Order Comment: Speci men Type: BLOOD SPECIMENOrdering Facility: [facility] Address: [address] [place] [address] Performed By: #### 4 537-7, 57890-8 ####[facility] [id number] [place] [address] [place] MCV (RBC) [Entitic vol] 83.4 fL Normal 80.0-100.0 [facility] Comment on above: Order Comment: Speci men Type: BLOOD SPECIMENOrdering Facility: [facility] Address: [address] [place] [address] Performed By: #### 4 537-7, 87651-0 ####[facility] LABIA [id number] [place] [address] [place] Monocytes (Bld) [#/Vol] 0.36 10*3/uL Normal <0.87 [facility] Comment on above: Order Comment: Speci men Type: BLOOD SPECIMENOrdering Facility: [facility] Address: [address] [place] [address] Performed By: #### 4 537-7, 89180-9 ####[facility] LABCLIA [id number] [place] [address] [place] Monocytes/100 WBC (Bld) 6.1 % Normal [facility] Comment on above: Order Comment: Speci men Type: BLOOD SPECIMENOrdering Facility: [facility] Address: [address] [place] [address] Performed By: #### 4 537-7, 94418-3 ####[facility] LABCLIA [id number] [place] [address] [place] Neutrophils (Bld) [#/Vol] 1.20 10*3/uL Low 1.45-7.50 [facility] Comment on above: Order Comment: Speci men Type: BLOOD SPECIMENOrdering Facility: [facility] Address: [address] [place] [address] Performed By: #### 4 537-7, 95269-0 ####[facility] LABIA [id number] [place] [address] [place] Neutrophils/100 WBC (Bld) 20.5 % Normal [facility] Comment on above: Order Comment: Speci men Type: BLOOD SPECIMENOrdering Facility: [facility] Address: [address] [place] [address] Performed By: #### 4 537-7, 80459-8 ####[facility] LABCLIA [id number] [place] [address] [place] Nucleated RBC (Bld) [#/Vol] 10*3/uL Normal <0.01 [facility] Comment on above: Order Comment: Speci men Type: BLOOD SPECIMENOrdering Facility: [facility] Address: [address] [place] [address] Performed By: #### 4 537-7, 33668-0 ####[facility] LABCLIA [id number] [place] [address] [place] Nucleated RBC/100 WBC (Bld) [Ratio] 0.0 /100 WBC Normal [facility] Comment on above: Order Comment: Speci men Type: BLOOD SPECIMENOrdering Facility: [facility] Address: [address] [place] [address] Performed By: #### 4 537-7, 56384-1 ####[facility]IA [id number] [place] [address] [place] Platelet mean volume (Bld) [Entitic vol] 11.3 fL Normal 9.0-12.7 [facility] Comment on above: Order Comment: Speci men Type: BLOOD SPECIMENOrdering Facility: [facility] Address: [address] [place] [address] Performed By: #### 4 537-7, 11077-9 ####[facility]IA [id number] [place] [address] [place] Platelets (Bld) [#/Vol] 172 10*3/uL Normal 150-400 [facility] Comment on above: Order Comment: Speci men Type: BLOOD SPECIMENOrdering Facility: [facility] Address: [address] [place] [address] Performed By: #### 4 537-7, 60948-3 ####[facility]IA [id number] [place] [address] [place] RBC (Bld) [#/Vol] 4.10 10*6/uL Normal 3.90-5.20 [facility] Comment on above: Order Comment: Speci men Type: BLOOD SPECIMENOrdering Facility: [facility] Address: [address] [place] [address] Performed By: #### 4 537-7, 36550-2 ####[facility] LABIA [id number] [place] [address] [place] WBC (Bld) [#/Vol] 5.87 10*3/uL Normal 3.70-11.00 [facility] Comment on above: Order Comment: Speci men Type: BLOOD SPECIMENOrdering Facility: [facility] Address: [address] [place] [address] Performed By: #### 4 537-7, 57119-5 ####[facility] LABCLIA [id number] WILMERBarrie VALEDESK [id number] [place] CNOVon 05-26-2023 CNOV Office Visit (EXPLOR ) ANY LUDWIG ([id number]) 1985 F Date Time Provider Department 05/26/23 1:45 PM SILVIA COOPER EXPLOR During your visit today, we recorded the following information about you: Temperature Pulse Blood pressure 97.5 degrees 65/minute 107/66 Silvia Cooper, [employer].DIRECTOR OF CLOUD SERVICES 05/26/2023 2:15 PM Signed This note was created using NoteWriter. Subjective Any Ludwig is a 38 year old female. This 38 year old female present sot [facility] with expiratory wheeze, was in [...] if neede (more content not included)... Normal [facility] CNTRAVIS Office Visit (MARK ) ANY LUDWIG ([id number]) 1985 F Date Time Provider Department 05/26/23 1:00 PM FARIBA HILL During your visit today, we recorded the following information about you: Fariba Hill APRN.CNP 06/07/2023 8:14 AM Signed FOLLOW UP VISIT-in person PCP: Tino Blake MD [address] [place] [address] Ms. Ludwig is a 38 year old [...] Vitamin D Deficiency - 04/23/2017 PHYSICAL EXAMINATION: [facility] 01/13/2023 (Approximate) GENERAL: alert and appropriate, in [...] is planning to follow up with local abrasives sales representative closer to home. Until she has her [...] unfortunate soci (more content not included)... Normal [facility] CREATININE BLDon 05-26-2023 Creatinine [Mass/Vol] 0.52 mg/dL Low 0.58 - 0.96 mg/dL [facility] Estimated Glomerular Filtration Rate 121 mL/min/1.73m >=60 mL/min/1.73m [facility] Creatinine [Mass/Vol] 0.52 mg/dL Low 0.58-0.96 [facility] Comment on above: Order Comment: Shaneka montemayor Type: BLOOD SPECIMENOrdering Facility: [facility] Address: [address] [place] [address] Performed By: #### 1 988-5, 1919-09, CREDonnell, 1741-07 ####[facility] LABCLIA [id number] [place] [address] [place] Creatinine and Glomerular filtration rate.predicted panel (S/P/Bld) 121 mL/min/1.73m??? Normal >=60 [facility] Comment on above: Order Comment: Shaneka montemayor Type: BLOOD SPECIMENOrdering Facility: [facility] Address: [address] [place] [address] Result Comment: Polly mated Glomerular Filtration Rate [...] GFR. Performed By: #### 1 988-5, 1919-09, CRE, 1741-07 ####[facility] LABCLIA [id number] [place] [id number] [place] CRP SerPl-mCncon 05-26-2023 CRP [Mass/Vol] mg/L Normal <0.9 [facility] Comment on above: Order Comment: Shaneka montemayor Type: BLOOD SPECIMENOrdering Facility: [facility] Address: [address] [place] [address] Performed By: #### 1 988-5, 1919-09, CRE, 1741-07 ####[facility] LABCLIA [id number] [place] [id number] [place] ESR Westergren method (Bld) [Velocity]on 05-26-2023 ESR (Bld) [Velocity] 5 mm/h 0 - 20 mm/hr Cl [facility] ESR (Bld) [Velocity] 5 mm/h Normal 0-20 [facility] Comment on above: Order Comment: Speci men Type: BLOOD SPECIMENOrdering Facility: [facility] Address: [address] [place] [address] Performed By: #### 4 537-7, 59143-5 ####[facility] LABCLIA [id number] [place] AVENUED[address]K [id number] [place] VITAMIN D 25 HYDROXYon 05-25 25-hydroxyvitamin D3 [Mass/Vol] 29.2 ng/mL Low 31.0 - 80.0 ng/mL [facility] CNPAngelica 05-14-2023 ANTHONYN Telephone (MARK) ANY LUDWIG ([id number]) 1985 F Date Time Provider Department 05/14/23 [...] to: self Call patient at: at home [phone] (home) [phone] (cell) Payor: HARITHA MEDICAID / Plan: ANTHEM BCBS MEDICAID OF [...] Encounter Status:Closed by ELDER CLAYTON on 06/09/[address] [facility] CNPN Telephone (RULTTB) OZIELANY Dima ([id number]) 1985 F Date Time Provider Department 05/14/23 SJ MEJIA ([facility]) RULTTB During your visit today, we recorded the following information about you: Sj Mejia, [facility] 05/14/2023 2:38 PM Signed Visit Type: ANY [...] their MSK US exam. No answer, left , 3rd attempt. Allergies As of Date: 05/14/2023 [...] Encounter Status:Closed by HAWA CASPER on 05/18/[address] [facility] Yajaira 04-28-2023 DAMON Office Visit (MARK ) ANY LUDWIG ([id number]) 1985 F Date Time Provider Department 04/28/23 2:00 PM FARIBA HILL During your visit today, we recorded the following information about you: Fariba Hill, [place].DIRECTOR OF CLOUD SERVICES 05/24/2023 5:01 PM Signed FOLLOW UP VISIT-in person PCP: Tino Blake MD [address] [place] [address] Ms. Ludwig is a 38 year old [...] is planning to follow up with local abrasives sales representative closer to home. Until she has her [...] over her lifetime. We are assisting with director social consult, also to help with adherence to health care and patient's social support, especially that now she is caring for her , as a singl (more content not included)... 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 thank you kindly, Fariba Franklin, [place].ANTHONY 04/20/2023 8:18 PM Signed Please add her to my schedule 04/27 at 2pm use 60 min virtual and I will try to stop over sometime during her infusion Bailey Turner 04/21/2023 10:29 AM Signed Mark Rea April appointment has been scheduled as requested. Please let our infusion hair baler(s) know how you would like to proceed for all future infusion visits as requested below by Dr. Leos. Dr. Leos does not have any available openings to accommodate Ms. Ludwig through 2023. Please advise. Thank you, Bailey ORTIZ April 21, 2023 10:25 AM Yessy Galarza 04/21/2023 3:07 PM Signed LMOM for patient to call the office back Please warm transfer to Fariba Post, [place].ANTHONY 04/21/2023 4:52 PM Signed Please change patient [...] to Please add her to my schedule 3/6 at 2pm use 60 min virtual and [...] to quit [F17.200] 12/30/2017 Encounter Status:Closed by SERGIO YESSY ORTIZ on 04/21/23 Normal [facility] ALT SerPl-cCncon 03-01-2023 ALT [Catalytic activity/Vol] 13 U/L Normal 7-38 [facility] Comment on above: Order Comment: Speci men Type: BLOOD SPECIMENOrdering Facility: [facility] Address: [address] [place] [address] Performed By: #### 1 742-6, 1919-09, CRET1 ####[facility] LABCLIA [id number] [place] [address] [place] AST SerPl-cCncon 03-01-2023 AST [Catalytic activity/Vol] 18 U/L Normal 13-35 [facility] Comment on above: Order Comment: Speci men Type: BLOOD SPECIMENOrdering Facility: [facility] Address: [address] [place] [address] Performed By: #### 1 742-6, 1919-09, CRET1 ####[facility] LABCLIA [id number] [place] [address] [place] CBC W Auto Differential pane l (Bld)on 03-01-2023 Basophils (Bld) [#/Vol] 0.03 10*3/uL Normal <0.11 [facility] Comment on above: Order Comment: Speci men Type: BLOOD SPECIMENOrdering Facility: [facility] Address: [address] [place] [address] Performed By: #### 5 7021-8 ####[facility] LABCLIA [id number] [place] [address] [place] Basophils/100 WBC (Bld) 0.6 % Normal [facility] Comment on above: Order Comment: Speci men Type: BLOOD SPECIMENOrdering Facility: [facility] Address: [address] [place] [address] Performed By: #### 5 7021-8 ####[facility] LABCLIA [id number] [place] [address] [place] Differential cell count method Nom (Bld) Auto Normal [facility] Comment on above: Order Comment: Speci men Type: BLOOD SPECIMENOrdering Facility: [facility] Address: [address] [place] [address] Performed By: #### 5 7021-8 ####[facility] LABCLIA [id number] [place] [address] [place] Eosinophils (Bld) [#/Vol] 0.11 10*3/uL Normal <0.46 [facility] Comment on above: Order Comment: Speci men Type: BLOOD SPECIMENOrdering Facility: [facility] Address: [address] [place] [address] Performed By: #### 5 7021-8 ####[facility] LABCLIA [id number] [place] [address] [place] Eosinophils/100 WBC (Bld) 2.2 % Normal [facility] Comment on above: Order Comment: Speci men Type: BLOOD SPECIMENOrdering Facility: [facility] Address: [address] [place] [address] Performed By: #### 5 7021-8 ####[facility] LABCLIA [id number] [place] [address] [place] Erythrocyte distribution width (RBC) [Ratio] 13.2 % Normal 11.5-15.0 [facility] Comment on above: Order Comment: Speci men Type: BLOOD SPECIMENOrdering Facility: [facility] Address: [address] [place] [address] Performed By: #### 5 7021-8 ####[facility] LABCLIA [id number] [place] [address] [place] Hematocrit (Bld) [Volume fraction] 36.4 % Normal 36.0-46.0 [facility] Comment on above: Order Comment: Speci men Type: BLOOD SPECIMENOrdering Facility: [facility] Address: [address] [place] [address] Performed By: #### 5 7021-8 ####[facility] LABCLIA [id number] [place] [address] [place] Hemoglobin (Bld) [Mass/Vol] 12.0 g/dL Normal 11.5-15.5 [facility] Comment on above: Order Comment: Speci men Type: BLOOD SPECIMENOrdering Facility: [facility] Address: [address] [place] [address] Performed By: #### 5 7021-8 ####[facility] LABCLIA [id number] [place] [address] [place] Immature granulocytes (Bld) [#/Vol] 10*3/uL Normal <0.10 [facility] Comment on above: Order Comment: Speci men Type: BLOOD SPECIMENOrdering Facility: [facility] Address: [address] [place] [address] Performed By: #### 5 7021-8 ####[facility] LABCLIA [id number] [place] [address] [place] Immature granulocytes/100 WBC (Bld) 0.4 % Normal [facility] Comment on above: Order Comment: Speci men Type: BLOOD SPECIMENOrdering Facility: [facility] Address: [address] [place] [address] Performed By: #### 5 7021-8 ####[facility] LABCLIA [id number] [place] [address] [place] Lymphocytes (Bld) [#/Vol] 2.42 10*3/uL Normal 1.00-4.00 [facility] Comment on above: Order Comment: Speci men Type: BLOOD SPECIMENOrdering Facility: [facility] Address: [address] [place] [address] Performed By: #### 5 7021-8 ####[facility] LABCLIA [id number] [place] [address] [place] Lymphocytes/100 WBC (Bld) 47.9 % Normal [facility] Comment on above: Order Comment: Speci men Type: BLOOD SPECIMENOrdering Facility: [facility] Address: [address] [place] [address] Performed By: #### 5 7021-8 ####[facility] [id number] [place] [address] [place] MCH (RBC) [Entitic mass] 27.1 pg Normal 26.0-34.0 [facility] Comment on above: Order Comment: Speci men Type: BLOOD SPECIMENOrdering Facility: [facility] Address: [address] [place] [address] Performed By: #### 5 7021-8 ####[facility] [id number] [place] [address] [place] MCHC (RBC) [Mass/Vol] 33.0 g/dL Normal 30.5-36.0 [facility] Comment on above: Order Comment: Speci men Type: BLOOD SPECIMENOrdering Facility: [facility] Address: [address] [place] [address] Performed By: #### 5 7021-8 ####[facility] [id number] [place] [address] [place] MCV (RBC) [Entitic vol] 82.4 fL Normal 80.0-100.0 [facility] Comment on above: Order Comment: Speci men Type: BLOOD SPECIMENOrdering Facility: [facility] Address: [address] [place] [address] Performed By: #### 5 7021-8 ####[facility] [id number] [place] [address] [place] Monocytes (Bld) [#/Vol] 0.35 10*3/uL Normal <0.87 [facility] Comment on above: Order Comment: Speci men Type: BLOOD SPECIMENOrdering Facility: [facility] Address: [address] [place] [address] Performed By: #### 5 7021-8 ####[facility] LABCLIA [id number] [place] [id number] [place] Monocytes/100 WBC (Bld) 6.9 % Normal [facility] Comment on above: Order Comment: Speci men Type: BLOOD SPECIMENOrdering Facility: [facility] Address: [address] [place] [address] Performed By: #### 5 7021-8 ####[facility] LABCLIA [id number] [place] [address] [place] Neutrophils (Bld) [#/Vol] 2.12 10*3/uL Normal 1.45-7.50 [facility] Comment on above: Order Comment: Speci men Type: BLOOD SPECIMENOrdering Facility: [facility] Address: [address] [place] [address] Performed By: #### 5 7021-8 ####[facility] LABCLIA [id number] [place] [address] [place] Neutrophils/100 WBC (Bld) 42.0 % Normal [facility] Comment on above: Order Comment: Speci men Type: BLOOD SPECIMENOrdering Facility: [facility] Address: [address] [place] [address] Performed By: #### 5 7021-8 ####[facility] LABCLIA [id number] [place] [address] [place] Nucleated RBC (Bld) [#/Vol] 10*3/uL Normal <0.01 [facility] Comment on above: Order Comment: Speci men Type: BLOOD SPECIMENOrdering Facility: [facility] Address: [address] [place] [address] Performed By: #### 5 7021-8 ####[facility] LABCLIA [id number] [place] [address] [place] Nucleated RBC/100 WBC (Bld) [Ratio] 0.0 /100 WBC Normal [facility] Comment on above: Order Comment: Speci men Type: BLOOD SPECIMENOrdering Facility: [facility] Address: [address] [place] [address] Performed By: #### 5 7021-8 ####[facility] LABIA [id number] [address] [address] [place] Platelet mean volume (Bld) [Entitic vol] 10.7 fL Normal 9.0-12.7 [facility] Comment on above: Order Comment: Speci men Type: BLOOD SPECIMENOrdering Facility: [facility] Address: [address] [place] [address] Performed By: #### 5 7021-8 ####[facility] LABIA [id number] [place] [address] [place] Platelets (Bld) [#/Vol] 238 10*3/uL Normal 150-400 [facility] Comment on above: Order Comment: Speci men Type: BLOOD SPECIMENOrdering Facility: [facility] Address: [address] [place] [address] Performed By: #### 5 7021-8 ####[facility] LABIA [id number] [place] [address] [place] RBC (Bld) [#/Vol] 4.42 10*6/uL Normal 3.90-5.20 [facility] Comment on above: Order Comment: Speci men Type: BLOOD SPECIMENOrdering Facility: [facility] Address: [address] [place] [address] Performed By: #### 5 7021-8 ####[facility] LABIA [id number] [place] [address] [place] WBC (Bld) [#/Vol] 5.05 10*3/uL Normal 3.70-11.00 [facility] Comment on above: Order Comment: Speci men Type: BLOOD SPECIMENOrdering Facility: [facility] Address: [address] [place] [address] Performed By: #### 5 7021-8 ####[facility] [id number] [place] [address] [place] CREATININE BLDon 03-01-2023 Creatinine [Mass/Vol] 0.47 mg/dL Low 0.58-0.96 [facility] Comment on above: Order Comment: Speci men Type: BLOOD SPECIMENOrdering Facility: [facility] Address: [address] [place] [address] Performed By: #### 1 742-6, 1919-09, CRET1 ####[facility] [id number] [address] Creatinine and Glomerular filtration rate.predicted panel (S/P/Bld) 124 mL/min/1.73m??? Normal >=60 [facility] Comment on above: Order Comment: Speci men Type: BLOOD SPECIMENOrdering Facility: [facility] Address: [address] [place] [address] Result Comment: Polly mated Glomerular Filtration Rate [...] actual GFR. Performed By: #### 1 742-6, 1919-09, CRET1 ####[facility] [id number] [place] [id number] [facility] CNPAngelica 02-16-2023 ANTHONYN Telephone ([place]) ANY [id number]) 1985 F Date Time Provider Department 02/16/23 FARIBA HILL During your visit today, we recorded the following information about you: Yessy Gonzalez RN 02/16/2023 9:59 AM Signed VM left for [...] breathing Date Reviewed: 01/20/2023 Reviewed by: Fariba Hill, [employer].DIRECTOR OF CLOUD SERVICES - Fully Assessed Prescriptions as of 02/18/2023 [...] Encounter Status:Closed by YESSY GALARZA on 02/18/23 [facility] ANTHONYN Telephone ([place]) ANY LUDWIG ([id number]) 1985 F Date Time Provider Department 02/01/23 [facility] LESLIE CALLAHAN During your visit today, we recorded the following information about you: Yessy Galarza 02/01/2023 4:20 PM Signed ----- Message from Irais Ochoa sent at 02/01/2023 3:13 PM EST ----- Regarding: infusion reschedule Contact: Patient name: Any Oziel Who is calling: Patient Call back number: [phone] [facility] ordering provider: Dr Mccann Type of infusion: Actemra Patient just needs to reschedule 02/02/23 appt Yessy Galarza 02/01/2023 4:20 PM Signed LMOM for patient to call us back to reschedule her infusion . Please warm transfer to [facility] Allergies As of Date: 02/01/2023 Noted Allergy Reaction AVSOLA (INFLIXIMAB-AXXQ) 10/22/2022 10 - Anaphylaxis Comments: Adverse reaction, chest tightness, shortness of breath and trouble breathing Date Reviewed: 01/20/2023 Reviewed by: Fariba Hill APRN.DIRECTOR OF CLOUD SERVICES - Fully Assessed Prescriptions as of 02/01/2023 [...] Encounter Status:Closed by YESSY GALARZA on 02/01/[address] [facility] CNOVon 01-20-2023 CNOV Office Visit (MARK ) ANY LUDWIG ([id number]) 1985 F Date Time Provider Department 01/20/23 8:30 AM FARIBA HILL During your visit today, we recorded the following information about you: Temperature Pulse Blood pressure Weight 96.2 degrees 84/minute 128/82 72.4 kg Last Period 01/13/23 Fariba Hill APRN.DIRECTOR OF CLOUD SERVICES 01/20/2023 10:13 AM Signed FOLLOW UP VISIT-in person PCP: Tino Blake MD [address] [place] [address] Ms. 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 Until she has her apt, we offered assistance with her RA care and follow up apt. Advised we can only provide 1 month supply and will need f/u apt for recheck and refill for her safe (more content not included)... Normal [facility] Kylah 01-20-2023 SUNITA Telephone (MARK) ANY LUDWIG ([id number]) 1985 F Date Time Provider Department 01/20/23 [...] Encounter Status:Closed by ARTHUR FLORES on 01/21/[address] [facility] Kylah 12-17-2022 SUNITA Telephone (MARK) ANY LUDWIG ([id number]) 1985 F Date Time Provider Department 12/17/22 FARIBA HILL During your visit today, we recorded the following information about you: Josefina Randolph MA 12/17/2022 4:00 PM Signed Received outside lab results from [facility] AST and ALT results completed on 12/14 ALT: 33 AST: 19 placed on Fariba's desk for review Fariba Hill APRN.CNP 12/18/2022 2:07 PM Signed Please call patient Normal liver enzymes Will recheck in 1 month May restart arava 10mg daily Josefina Randolph MA 12/18/2022 2:31 PM Signed Left message for patient to call office regarding below. Josefina Randolph MA 12/18/2022 2:31 PM Signed Left message for patient to call office regarding below. sent [facility] Allergies As of Date: 12/17/2022 Noted Allergy [...] 3 CBC + DIFF [SQCBCDIF] Order #: [id number] FUTURE AST/SGOT BLD [SQAST] Order #: [id number] FUTURE ALT/SGPT [SQALT] Order #: [id number] FUTURE CREATININE BLD [SQCRET] Order #: [id number] FUTURE Prescriptions as of 12/21/2022 - leflunomide [...] Encounter Status:Closed by JOSEFINA RANDOLPH on 12/21/22 [facility] 12-14-2022 SUNITA Telephone (ORQ) ANY LUDWIG ([id number]) 1985 F Date Time Provider Department 12/14/22 FARIBA HILL During your visit today, we recorded the following information about you: Komal Nunn 12/14/2022 9:21 AM Signed Any Ludwig is calling Fariba Hill APRN.DIRECTOR OF CLOUD SERVICES today to request Lab Orders be faxed to [facility]. She believes their fax number is [phone]. She states we can call them to verify at [phone]. Please notify pt once orders have been faxed. Patient has been identified by name and birthdate. Duration of symptoms: N/A Person calling: self Call patient at: on cell [phone] (home) [phone] (cell) Was an appointment scheduled: No Closing statement: Results or non-symptom based questions: Thank you for calling [facility], your call will be returned within the next business day. Josefina Smith MA 12/14/2022 11:41 AM Signed Fariba from [facility] called to follow up on request -- lab orders faxed to [phone] as requested with confirmation Soraida Lora 12/14/2022 12:54 PM Signed [facility] calling about orders. Patient did not give correct fax number. Please re-fax to [phone]. Patient is still waiting at lab. Please advise. Soraida Lora [facility] POST (Patient Operations Support Team) Please note: [...] VALORIE - Fully Assessed Reason for Visit: Lab Orders [6879] Prescriptions as of 12/14/2022 - VYVANSE 40 [...] Encounter Status:Closed by JOSEFINA RANDOLPH on 12/14/22 [facility] 12-11-2022 SUNITA Telephone (MARK) ANY LUDWIG ([id number]) 1985 F Date Time Provider Department 12/11/22 FARIBA HILL During your visit today, we recorded the following information about you: Fariba Hill APRN.[facility] 12/11/2022 5:41 PM Signed Spoke with patient [...] Abs Lymph 1.00 - 4.00 k/uL 3.92 [place]% % 8.[address] [place] <0.87 k/uL 0.65 [place]% % 2.3 Abs [...] (HCC) [M05.9] Order(s):AST/SGOT BLD [SQAST] Order #: [id number] FUTURE ALT/SGPT [SQALT] Order #: [id number] FUTURE Prescriptions as of 12/11/2022 - predniSONE [...] 12/30/2017 Encounter Status:Closed by FARIBA HILL on 12/11/22 Normal [facility] C-REACTIVE PROTEIN (CRP)on 1 CRP [Mass/Vol] 0.4 mg/dL <0.9 mg/dL [facility] CBC W Auto Differential pane l (Bld)on 11-27-2022 Basophils (Bld) [#/Vol] 0.05 10*3/uL <0.11 k/uL [facility] Basophils/100 WBC (Bld) 0.6 % [facility] Differential cell count method Nom (Bld) Auto [facility] Eosinophils (Bld) [#/Vol] 0.18 10*3/uL <0.46 k/uL [facility] Eosinophils/100 WBC (Bld) 2.3 % [facility] Erythrocyte distribution width (RBC) [Ratio] 13.7 % 11.5 - 15.0 % [facility] Hematocrit (Bld) [Volume fraction] 36.5 % 36.0 - 46.0 % [facility] Hemoglobin (Bld) [Mass/Vol] 11.7 g/dL 11.5 - 15.5 g/dL [facility] Immature granulocytes (Bld) [#/Vol] 0.09 10*3/uL <0.10 k/uL [facility] Immature granulocytes/100 WBC (Bld) 1.1 % [facility] Lymphocytes (Bld) [#/Vol] 3.92 10*3/uL 1.00 - 4.00 k/uL [facility] Lymphocytes/100 WBC (Bld) 49.2 % [facility] MCH (RBC) [Entitic mass] 26.8 pg 26.0 - 34.0 pg [facility] MCHC (RBC) [Mass/Vol] 32.1 g/dL 30.5 - 36.0 g/dL [facility] MCV (RBC) [Entitic vol] 83.7 fL 80.0 - 100.0 fL [facility] Monocytes (Bld) [#/Vol] 0.65 10*3/uL <0.87 k/uL [facility] Monocytes/100 WBC (Bld) 8.2 % [facility] Neutrophils (Bld) [#/Vol] 3.07 10*3/uL 1.45 - 7.50 k/uL [facility] Neutrophils/100 WBC (Bld) 38.6 % [facility] Nucleated RBC (Bld) [#/Vol] <0.01 k/uL [facility] Nucleated RBC/100 WBC (Bld) [Ratio] 0.0 /100 WBC [facility] Platelet mean volume (Bld) [Entitic vol] 10.5 fL 9.0 - 12.7 fL [facility] Platelets (Bld) [#/Vol] 328 10*3/uL 150 - 400 k/uL [facility] RBC (Bld) [#/Vol] 4.36 10*6/uL 3.90 - 5.2 0 m/uL [facility] WBC (Bld) [#/Vol] 7.96 10*3/uL 3.70 - 11. 00 k/uL [facility] Basophils (Bld) [#/Vol] 0.05 10*3/uL Normal <0.11 [facility] Comment on above: Order Comment: Speci men Type: BLOOD SPECIMENOrdering Facility: [facility] Address: [address] [place] [address] Performed By: #### 4 537-7, 69972-2 ####[facility] LABIA [id number] [place] [address] [place] Basophils/100 WBC (Bld) 0.6 % Normal [facility] Comment on above: Order Comment: Speci men Type: BLOOD SPECIMENOrdering Facility: [facility] Address: [address] [place] [address] Performed By: #### 4 537-7, 52448-5 ####[facility] LABCLIA [id number] [place] [address] [place] Differential cell count method Nom (Bld) Auto Normal [facility] Comment on above: Order Comment: Speci men Type: BLOOD SPECIMENOrdering Facility: [facility] Address: [address] [place] [address] Performed By: #### 4 537-7, 46659-5 ####[facility] LABCLIA [id number] [place] [address] [place] Eosinophils (Bld) [#/Vol] 0.18 10*3/uL Normal <0.46 [facility] Comment on above: Order Comment: Speci men Type: BLOOD SPECIMENOrdering Facility: [facility] Address: [address] [place] [address] Performed By: #### 4 537-7, 22442-3 ####[facility] LABCLIA [id number] [place] [address] [place] Eosinophils/100 WBC (Bld) 2.3 % Normal [facility] Comment on above: Order Comment: Speci men Type: BLOOD SPECIMENOrdering Facility: [facility] Address: [address] [place] [address] Performed By: #### 4 537-7, 40425-6 ####[facility] LABCLIA [id number] [place] [address] [place] Erythrocyte distribution width (RBC) [Ratio] 13.7 % Normal 11.5-15.0 [facility] Comment on above: Order Comment: Speci men Type: BLOOD SPECIMENOrdering Facility: [facility] Address: [address] [place] [address] Performed By: #### 4 537-7, 10993-9 ####[facility] LABCLIA [id number] [place] [address] [place] Hematocrit (Bld) [Volume fraction] 36.5 % Normal 36.0-46.0 [facility] Comment on above: Order Comment: Speci men Type: BLOOD SPECIMENOrdering Facility: [facility] Address: [address] [place] [address] Performed By: #### 4 537-7, 12916-3 ####[facility] LABCLIA [id number] [place] [address] [place] Hemoglobin (Bld) [Mass/Vol] 11.7 g/dL Normal 11.5-15.5 [facility] Comment on above: Order Comment: Speci men Type: BLOOD SPECIMENOrdering Facility: [facility] Address: [address] [place] [address] Performed By: #### 4 537-7, 27390-2 ####[facility] LABCLIA [id number] [place] [address] [place] Immature granulocytes (Bld) [#/Vol] 0.09 10*3/uL Normal <0.10 [facility] Comment on above: Order Comment: Speci men Type: BLOOD SPECIMENOrdering Facility: [facility] Address: [address] [place] [address] Performed By: #### 4 537-7, 49473-6 ####[facility] LABIA [id number] [place] [address] [place] Immature granulocytes/100 WBC (Bld) 1.1 % Normal [facility] Comment on above: Order Comment: Speci men Type: BLOOD SPECIMENOrdering Facility: [facility] Address: [address] [place] [address] Performed By: #### 4 537-7, 65840-6 ####[facility]IA [id number] [place] [address] [place] Lymphocytes (Bld) [#/Vol] 3.92 10*3/uL Normal 1.00-4.00 [facility] Comment on above: Order Comment: Speci men Type: BLOOD SPECIMENOrdering Facility: [facility] Address: [address] [place] [address] Performed By: #### 4 537-7, 46492-0 ####[facility] LABIA [id number] [place] [address] [place] Lymphocytes/100 WBC (Bld) 49.2 % Normal [facility] Comment on above: Order Comment: Speci men Type: BLOOD SPECIMENOrdering Facility: [facility] Address: [address] [place] [address] Performed By: #### 4 537-7, 76427-1 ####[facility] LABCLIA [id number] [place] [address] [place] MCH (RBC) [Entitic mass] 26.8 pg Normal 26.0-34.0 [facility] Comment on above: Order Comment: Speci men Type: BLOOD SPECIMENOrdering Facility: [facility] Address: [address] [place] [address] Performed By: #### 4 537-7, 38177-7 ####[facility] LABCLIA [id number] [place] [address] [place] MCHC (RBC) [Mass/Vol] 32.1 g/dL Normal 30.5-36.0 [facility] Comment on above: Order Comment: Speci men Type: BLOOD SPECIMENOrdering Facility: [facility] Address: [address] [place] [address] Performed By: #### 4 537-7, 47230-4 ####[facility] LABCLIA [id number] [place] [address] [place] MCV (RBC) [Entitic vol] 83.7 fL Normal 80.0-100.0 [facility] Comment on above: Order Comment: Speci men Type: BLOOD SPECIMENOrdering Facility: [facility] Address: [address] [place] [address] Performed By: #### 4 537-7, 49644-3 ####[facility] LABCLIA [id number] [place] [address] [place] Monocytes (Bld) [#/Vol] 0.65 10*3/uL Normal <0.87 [facility] Comment on above: Order Comment: Speci men Type: BLOOD SPECIMENOrdering Facility: [facility] Address: [address] [place] [address] Performed By: #### 4 537-7, 61597-1 ####[facility] LABCLIA [id number] [place] [address] [place] Monocytes/100 WBC (Bld) 8.2 % Normal [facility] Comment on above: Order Comment: Speci men Type: BLOOD SPECIMENOrdering Facility: [facility] Address: [address] [place] [address] Performed By: #### 4 537-7, 71209-6 ####[facility] LABCLIA [id number] [place] [address] [place] Neutrophils (Bld) [#/Vol] 3.07 10*3/uL Normal 1.45-7.50 [facility] Comment on above: Order Comment: Speci men Type: BLOOD SPECIMENOrdering Facility: [facility] Address: [address] [place] [address] Performed By: #### 4 537-7, 44763-4 ####[facility] LABCLIA [id number] [place] [address] [place] Neutrophils/100 WBC (Bld) 38.6 % Normal [facility] Comment on above: Order Comment: Speci men Type: BLOOD SPECIMENOrdering Facility: [facility] Address: [address] [place] [address] Performed By: #### 4 537-7, 25955-9 ####[facility] LABCLIA [id number] [place] [address] [place] Nucleated RBC (Bld) [#/Vol] 10*3/uL Normal <0.01 [facility] Comment on above: Order Comment: Speci men Type: BLOOD SPECIMENOrdering Facility: [facility] Address: [address] [place] [address] Performed By: #### 4 537-7, 12124-3 ####[facility] LABCLIA [id number] [place] [address] [place] Nucleated RBC/100 WBC (Bld) [Ratio] 0.0 /100 WBC Normal [facility] Comment on above: Order Comment: Speci men Type: BLOOD SPECIMENOrdering Facility: [facility] Address: [address] [place] [address] Performed By: #### 4 537-7, 08272-3 ####[facility] LABCLIA [id number] [place] [address] [place] Platelet mean volume (Bld) [Entitic vol] 10.5 fL Normal 9.0-12.7 [facility] Comment on above: Order Comment: Speci men Type: BLOOD SPECIMENOrdering Facility: [facility] Address: [address] [place] [address] Performed By: #### 4 537-7, 57579-7 ####[facility] LABCLIA [id number] [place] [address] [place] Platelets (Bld) [#/Vol] 328 10*3/uL Normal 150-400 [facility] Comment on above: Order Comment: Speci men Type: BLOOD SPECIMENOrdering Facility: [facility] Address: [address] [place] [address] Performed By: #### 4 537-7, 24967-0 ####[facility] LABCLIA [id number] [place] [address] [place] RBC (Bld) [#/Vol] 4.36 10*6/uL Normal 3.90-5.20 [facility] Comment on above: Order Comment: Speci men Type: BLOOD SPECIMENOrdering Facility: [facility] Address: [address] [place] [address] Performed By: #### 4 537-7, 17323-6 ####[facility] LABCLIA [id number] [place] [id number] [place] WBC (Bld) [#/Vol] 7.96 10*3/uL Normal 3.70-11.00 [facility] Comment on above: Order Comment: Speci men Type: BLOOD SPECIMENOrdering Facility: [facility] Address: [address] [place] [address] Performed By: #### 4 537-7, 93730-7 ####[facility] LABIA [id number] [place] [address] [place] CRP SerPl-mCncon 11-27-2022 CRP [Mass/Vol] 0.4 mg/dL Normal <0.9 [facility] Comment on above: Order Comment: Speci men Type: BLOOD SPECIMENOrdering Facility: [facility] Address: [address] [place] [address] Performed By: #### 1 988-5, 46045-7 ####[facility] LABIA [id number] [place] [id number] [place] Comprehensive metabolic 2000 panelon 11-27-2022 Albumin [Mass/Vol] 4.0 g/dL 3.9 - 4.9 g/dL [facility] ALP [Catalytic activity/Vol] 77 U/L 34 - 123 U/L [facility] ALT [Catalytic activity/Vol] 66 U/L High 7 - 38 U/L [facility] Anion gap [Moles/Vol] 11 mmol/L 9 - 18 mmol/L [facility] AST [Catalytic activity/Vol] 54 U/L High 13 - 35 U/L [facility] Bilirubin [Mass/Vol] 0.2 mg/dL 0.2 - 1 .3 mg/dL [facility] Calcium [Mass/Vol] 9.1 mg/dL 8.5 - 10. 2 mg/dL [facility] Chloride [Moles/Vol] 98 mmol/L 97 - 10 5 mmol/L [facility] CO2 [Moles/Vol] 24 mmol/L 22 - 30 mmol/L [facility] Creatinine [Mass/Vol] 0.48 mg/dL Low 0.58 - 0.96 mg/dL [facility] Estimated Glomerular Filtration Rate 125 mL/min/1.73m >=60 mL/min/1.73m [facility] Glucose [Mass/Vol] 72 mg/dL Low 74 - 99 mg/dL [facility] Potassium [Moles/Vol] 4.4 mmol/L 3.7 - 5.1 mmol/L [facility] Protein [Mass/Vol] 6.7 g/dL 6.3 - 8.0 g/dL [facility] Sodium [Moles/Vol] 133 mmol/L Low 136 - 144 mmol/L [facility] Urea nitrogen [Mass/Vol] 8 mg/dL 7 - 21 mg/dL [facility] Albumin [Mass/Vol] 4.0 g/dL Normal 3.9-4.9 [facility] Comment on above: Order Comment: Speci men Type: BLOOD SPECIMENOrdering Facility: [facility] Address: [address] [place] [address] Performed By: #### 1 988-5, 45136-7 ####[facility] LABIA [id number] [place] [address] [place] ALP [Catalytic activity/Vol] 77 U/L Normal 34-123 [facility] Comment on above: Order Comment: Speci men Type: BLOOD SPECIMENOrdering Facility: [facility] Address: [address] [place] [address] Performed By: #### 1 988-5, 85450-6 ####[facility] LABCLIA [id number] [place] [address] [place] ALT [Catalytic activity/Vol] 66 U/L High 7-38 [facility] Comment on above: Order Comment: Speci men Type: BLOOD SPECIMENOrdering Facility: [facility] Address: [address] [place] [address] Performed By: #### 1 988-5, 84003-8 ####[facility] LABIA [id number] [place] [address] [place] Anion gap [Moles/Vol] 11 mmol/L Normal 9-18 [facility] Comment on above: Order Comment: Speci men Type: BLOOD SPECIMENOrdering Facility: [facility] Address: [address] [place] [address] Performed By: #### 1 988-5, ####[facility] LABCLIA [id number] [place] [address] [place] AST [Catalytic activity/Vol] 54 U/L High 13-35 [facility] Comment on above: Order Comment: Speci men Type: BLOOD SPECIMENOrdering Facility: [facility] Address: [address] [place] [address] Performed By: #### 1 988-5, ####[facility] LABCLIA [id number] [place] [address] [place] Bilirubin [Mass/Vol] 0.2 mg/dL Normal 0.2-1.3 [facility] Comment on above: Order Comment: Speci men Type: BLOOD SPECIMENOrdering Facility: [facility] Address: [address] [place] [address] Performed By: #### 1 988-5, ####[facility] LABCLIA [id number] [place] [address] [place] Calcium [Mass/Vol] 9.1 mg/dL Normal 8.5-10.2 [facility] Comment on above: Order Comment: Speci men Type: BLOOD SPECIMENOrdering Facility: [facility] Address: [address] [place] [address] Performed By: #### 1 988-5, ####[facility] LABCLIA [id number] [place] [address] [place] Chloride [Moles/Vol] 98 mmol/L Normal 97-105 [facility] Comment on above: Order Comment: Speci men Type: BLOOD SPECIMENOrdering Facility: [facility] Address: [address] [place] [address] Performed By: #### 1 988-5, 06195-6 ####[facility] LABIA [id number] [place] [address] [place] CO2 [Moles/Vol] 24 mmol/L Normal 22-30 [facility] Comment on above: Order Comment: Speci men Type: BLOOD SPECIMENOrdering Facility: [facility] Address: [address] [place] [address] Performed By: #### 1 988-5, 87143-3 ####[facility] LABIA [id number] [place] [address] [place] Creatinine [Mass/Vol] 0.48 mg/dL Low 0.58-0.96 [facility] Comment on above: Order Comment: Speci men Type: BLOOD SPECIMENOrdering Facility: [facility] Address: [address] [place] [address] Performed By: #### 1 988-5, 50285-7 ####[facility] LABIA [id number] [address] [place] [facility] Creatinine and Glomerular filtration rate.predicted panel (S/P/Bld) 125 mL/min/1.73m??? Normal >=60 [facility] Comment on above: Order Comment: Speci men Type: BLOOD SPECIMENOrdering Facility: [facility] Address: [address] [place] [address] Result Comment: Polly mated Glomerular Filtration Rate [...] actual GFR. Performed By: #### 1 988-5, 80065-4 ####[facility]IA [id number] [place] [address] [place] Glucose [Mass/Vol] 72 mg/dL Low 74-99 [facility] Comment on above: Order Comment: Speci men Type: BLOOD SPECIMENOrdering Facility: [facility] Address: [address] [place] [address] Result Comment: The [place] Diabetes Association (ADA) provides guidance for cutoff [...] Standards of Medical Care in Diabetes 2016, [employer] Diabetes Association. Diabetes Care. 2016.39(Suppl 1). Performed By: #### 1 988-5, 01775-0 ####[facility] LABCLIA [id number] [place] [address] [place] Potassium [Moles/Vol] 4.4 mmol/L Normal 3.7-5.1 [facility] Comment on above: Order Comment: Speci men Type: BLOOD SPECIMENOrdering Facility: [facility] Address: [address] [place] [address] Performed By: #### 1 988-5, 02916-2 ####[facility] LABCLIA [id number] [place] [address] [place] Protein [Mass/Vol] 6.7 g/dL Normal 6.3-8.0 [facility] Comment on above: Order Comment: Speci men Type: BLOOD SPECIMENOrdering Facility: [facility] Address: [address] [place] [address] Performed By: #### 1 988-5, 15583-6 ####[facility] LABCLIA [id number] [place] [address] [place] Sodium [Moles/Vol] 133 mmol/L Low 136-144 [facility] Comment on above: Order Comment: Speci men Type: BLOOD SPECIMENOrdering Facility: [facility] Address: [place] [address] Performed By: #### 1 988-5, 20657-3 ####[facility]CLIA [id number] [address] [place] Urea nitrogen [Mass/Vol] 8 mg/dL Normal 7-21 [facility] Comment on above: Order Comment: Speci men Type: BLOOD SPECIMENOrdering Facility: [facility] Address: [address] [place] [address] Performed By: #### 1 988-5, 79297-5 ####[facility] [facility] [id number] [place] [address] [place] ESR Westergren method (Bld) [Velocity]on 11-27-2022 ESR (Bld) [Velocity] 20 mm/h 0 - 20 mm/hr [facility] ESR (Bld) [Velocity] 20 mm/h Normal 0-20 [facility] Comment on above: Order Comment: Speci men Type: BLOOD SPECIMENOrdering Facility: [facility] Address: [address] [place] [address] Performed By: #### 4 537-7, 10732-7 ####[facility] [id number] [place] [address] [place] Kylah 11-25-2022 CNPN Telephone ([place]) ANY LUDWIG ([id number]) 1985 F Date Time Provider Department 11/25/22 NURSE LIZBETH [facility] LESLIE CALLAHAN During your visit today, we recorded the following information about you: Sergio Yessy Ortiz 11/25/2022 10:42 AM Signed LMOM for patient to call the office if she is able to move from Fri to Thur. Please warm transfer to [place] [facility] Racheal Jensen 11/26/2022 4:41 PM Signed Patient returned call [...] quit [F17.200] 12/30/2017 Encounter Status:Closed by YESSY AGLARZA on 11/25/22 [facility] 11-17-2022 [facility] Telephone ([facility]) ANY LUDWIG ([id number]) 1985 F Date Time Provider Department 11/17/22 FARIBA HILL [facility] During your visit today, we recorded the following information about you: JayroRacquel lakhani 11/17/2022 2:05 PM Signed === PHARMACY TEAM ==== ADDITIONAL INFORMATION NEEDED/REQUESTED Case Submitted: Yes Request Type: Payor Date of Service: 11/27/2022 Additional Information Needed: I. payer requesting clinical documentation showing pt has had an inadequate response to Methotrexate titrated to maximal tolerate dosing Request from Payor by: Fax Email Sent to: rheum workflow tel enc Requested Clinicals/Information Sent: N/A Fariba Hlil APRN.[facility] 11/17/2022 3:24 PM Signed Patient has never been on mtx prior She has hx non compliance and high risk behavior history Can I do a peer to peer Fariba Hill APRN.DIRECTOR OF [employer] SERVICES 11/18/2022 10:12 AM Addendum Chart notes to reflect why we are not using mtx Please submit Fariba Hill APRN.DIRECTOR OF [employer]D SERVICES 11/23/2022 8:22 PM Signed Please check on this Elizabeth Shelton LPN 11/24/2022 8:08 AM Signed Haley auth approved. Scheduled for 11/27/22 as reflected in appointments. Allergies As of Date: 11/17/2022 Noted Allergy Reaction AVSOLA (INFLIXIMAB-AXXQ) 10/22/2022 10 - Anaphylaxis Comments: Adverse reaction, chest tightness, shortness of breath and trouble breathing Date Reviewed: 10/22/2022 Reviewed by: Na Arevalo RN - Fully Assessed Reason for Visit: Insurance Inquiry [9772] Cmt: Prior Auth Delayed: Additional Info Needed(actemra) [...] Encounter Status:Closed by FARIBA HILL on 11/18/22 [facility] 11-11-2022 CNPN Telephone (4CQ) ANY LUDWIG ([id number]) 1985 F Date Time Provider Department 11/11/22 TINO BLAKE 4CQ During your visit today, we recorded the following information about you: Devi Wagner 11/11/2022 12:50 PM Signed Patient calling to ask questions re: infusion that was supposed to be for 11/12 but was cancelled due to no approval yet from insurance Please call patient back at [phone] Devi Wagner November 11, 2022 12:49 PM Fariba Hill, [employer].[facility] 11/12/2022 9:39 AM Signed Please call patient Steriod taper sent to the pharmacy please update patient Josefnia Randolph MA 11/12/2022 11:35 AM Signed Left message for patient to call office regarding below. Elizabeth Shelton LPN 11/13/2022 10:21 AM Signed Left VM that steroid has been sent to pharmacy. Racheal Jensen 11/16/2022 10:36 AM Signed Med went to [facility] Order Pharmacy. Patient wants this at [facility] in [place]. Please transfer today as she has been waiting since 11/13 for this. Thank you. She would like a call as soon as it is sent so she can go get it. May leave a message [phone]. 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 With breakfast. Then stop. No other nsaids..Disp: 42 tabletRfl: 0 CBC + DIFF [SQCBCDIF] Order #: [id number] FUTURE COMP METABOLIC PANEL [SQCMP] Order #: [id number] FUTURE C-REACTIVE PROTEIN (CRP) [SQCRP] Order #: [id number] FUTURE SED RATE WESTERGREN [SQWSR] Order #: [id number] FUTURE Prescriptions as of 11/16/2022 - predniSONE [...] Encounter Status:Closed by ELIZABETH SHELTON [facility] ANY [facility]UDW[facility] ([id number]) 1985 F Date Time Provider Department 11/11/22 JUAN DANIEL LEOS During your visit today, we recorded the following information about you: Sergio OrtizYessy 11/11/2022 11:56 AM Signed Insurance hasn't approved 11/12/2022 infusion appointment. Called and LMOM that her appointment needed to be moved since insurance hasn't approved yet. Rescheduled for 11/27/2022, asked patient to call us back. Please warm transfer to [facility] Allergies As of Date: 11/11/2022 Noted Allergy Reaction AVSOLA (INFLIXIMAB-AXXQ) 10/22/2022 10 - Anaphylaxis Comments: Adverse reaction, chest tightness, shortness of breath and trouble breathing Date Reviewed: 10/22/2022 Reviewed by: Na Arevalo RN - Fully Assessed Prescriptions as of [...] Encounter Status:Closed by YESSY GALARZA on 11/11/22 Normal [facility] 25(OH)D3 Pati-Rom 2022 25-hydroxyvitamin D3 [Mass/Vol] 46.8 ng/mL Normal 31.0-80.0 [facility] Comment on above: Order Comment: Speci men Type: BLOOD SPECIMENOrdering Facility: [facility] Address: [address] [place] [address] Result Comment: Clas sification of 25 [place] Vitamin D status: Deficiency/Insufficiency: < or = 30 ng/ml. Sufficiency/Optimal Levels: 31-80 ng/mL Toxicity: > 100 ng/mL. Test performed by chemiluminescent immunoassay. Performed By: #### 1 989-3 ####[facility] [id number] [id number] [id number] [facility] C-REACTIVE PROTEIN (CRP)on 0 10-22-2022 CRP [Mass/Vol] <0.9 mg/dL [facility] CBC W Auto Differential pane l (Bld)on 10-22-2022 Basophils (Bld) [#/Vol] 0.04 10*3/uL <0.11 k/uL [facility] Basophils/100 WBC (Bld) 0.6 % [facility] Differential cell count method Nom (Bld) Auto [facility] Eosinophils (Bld) [#/Vol] 0.11 10*3/uL <0.46 k/uL [facility] Eosinophils/100 WBC (Bld) 1.8 % [facility] Erythrocyte distribution width (RBC) [Ratio] 13.5 % 11.5 - 15.0 % [facility] Hematocrit (Bld) [Volume fraction] 36.9 % 36.0 - 46.0 % [facility] Hemoglobin (Bld) [Mass/Vol] 11.9 g/dL 11.5 - 15.5 g/dL [facility] Immature granulocytes (Bld) [#/Vol] <0.10 k/uL [facility] Immature granulocytes/100 WBC (Bld) 0.2 % [facility] Lymphocytes (Bld) [#/Vol] 3.08 10*3/uL 1.00 - 4.00 k/uL [facility] Lymphocytes/100 WBC (Bld) 49.3 % [facility] MCH (RBC) [Entitic mass] 26.7 pg 26.0 - 34.0 pg [facility] MCHC (RBC) [Mass/Vol] 32.2 g/dL 30.5 - 36.0 g/dL [facility] MCV (RBC) [Entitic vol] 82.9 fL 80.0 - 100.0 fL [facility] Monocytes (Bld) [#/Vol] 0.50 10*3/uL <0.87 k/uL [facility] Monocytes/100 WBC (Bld) 8.0 % [facility] Neutrophils (Bld) [#/Vol] 2.51 10*3/uL 1.45 - 7.50 k/uL [facility] Neutrophils/100 WBC (Bld) 40.1 % [facility] Nucleated RBC (Bld) [#/Vol] <0.01 k/uL [facility] Nucleated RBC/100 WBC (Bld) [Ratio] 0.0 /100 WBC [facility] Platelet mean volume (Bld) [Entitic vol] 11.5 fL 9.0 - 12.7 fL [facility] Platelets (Bld) [#/Vol] 235 10*3/uL 150 - 400 k/uL [facility] RBC (Bld) [#/Vol] 4.45 10*6/uL 3.90 - 5.2 0 m/uL [facility] WBC (Bld) [#/Vol] 6.25 10*3/uL 3.70 - 11. 00 k/uL [facility] Basophils (Bld) [#/Vol] 0.04 10*3/uL Normal <0.11 [facility] Comment on above: Order Comment: Speci men Type: BLOOD SPECIMENOrdering Facility: [facility] Address: [address] [address] Performed By: #### 5 7021-8, 4537-7 ####[facility] [id number] [address] [place] Basophils/100 WBC (Bld) 0.6 % Normal [facility] Comment on above: Order Comment: Speci men Type: BLOOD SPECIMENOrdering Facility: [facility] Address: [address] [place], [place] [address] Performed By: #### 5 7021-8, 4537-7 ####[facility] [id number] [place] [address] [place] Differential cell count method Nom (Bld) Auto Normal [facility] Comment on above: Order Comment: Speci men Type: BLOOD SPECIMENOrdering Facility: [facility] Address: [address] [place] [address] Performed By: #### 5 7021-8, 7 ####[facility] [id number] [place] [address] [place] Eosinophils (Bld) [#/Vol] 0.11 10*3/uL Normal <0.46 [facility] Comment on above: Order Comment: Speci men Type: BLOOD SPECIMENOrdering Facility: [facility] Address: [address] [place] [address] Performed By: #### 5 7021-8, 7 ####[facility] [id number] [address] [place] Eosinophils/100 WBC (Bld) 1.8 % Normal [facility] Comment on above: Order Comment: Speci men Type: BLOOD SPECIMENOrdering Facility: [facility] Address: [address] [place] [address] Performed By: #### 5 7021-8, 7 ####[facility] [id number] [place] [address] [place] Erythrocyte distribution width (RBC) [Ratio] 13.5 % Normal 11.5-15.0 [facility] Comment on above: Order Comment: Speci men Type: BLOOD SPECIMENOrdering Facility: [facility] Address: [address] Performed By: #### 5 7021-8, 7 ####[facility] [id number] [place] [address] [place] Hematocrit (Bld) [Volume fraction] 36.9 % Normal 36.0-46.0 [facility] Comment on above: Order Comment: Speci men Type: BLOOD SPECIMENOrdering Facility: [facility] Address: [address] Performed By: #### 5 7021-8, 7-7 ####[facility] [id number] [place] [address] [place] Hemoglobin (Bld) [Mass/Vol] 11.9 g/dL Normal 11.5-15.5 [facility] Comment on above: Order Comment: Speci men Type: BLOOD SPECIMENOrdering Facility: [facility] Address: [address] Performed By: #### 5 7021-8, 4536-7 ####[facility] [id number] [place] [address] [place] Immature granulocytes (Bld) [#/Vol] 10*3/uL Normal <0.10 [facility] Comment on above: Order Comment: Speci men Type: BLOOD SPECIMENOrdering Facility: [facility] Address: [address] [place], [place] [address] Performed By: #### 5 7021-8, 4536-7 ####[facility] [id number] [place] [address] [place] Immature granulocytes/100 WBC (Bld) 0.2 % Normal [facility] Comment on above: Order Comment: Speci men Type: BLOOD SPECIMENOrdering Facility: [facility] Address: [address] [place], [place] [address] Performed By: #### 5 7021-8, 4536-7 ####[facility] [id number] [place] [address] [place] Lymphocytes (Bld) [#/Vol] 3.08 10*3/uL Normal 1.00-4.00 [facility] Comment on above: Order Comment: Speci men Type: BLOOD SPECIMENOrdering Facility: [facility] Address: [address] [place], [place] [address] Performed By: #### 5 7021-8, 4536-7 ####[facility] [id number] [place] [address] [place] Lymphocytes/100 WBC (Bld) 49.3 % Normal [facility] Comment on above: Order Comment: Speci men Type: BLOOD SPECIMENOrdering Facility: [facility] Address: [address] [place], [place] [address] Performed By: #### 5 7021-8, 7 ####[facility] [id number] [place] [address] [place] MCH (RBC) [Entitic mass] 26.7 pg Normal 26.0-34.0 [facility] Comment on above: Order Comment: Speci men Type: BLOOD SPECIMENOrdering Facility: [facility] Address: [address] [place] [address] Performed By: #### 5 7021-8, 7 ####[facility] [id number] [place] [address] [place] MCHC (RBC) [Mass/Vol] 32.2 g/dL Normal 30.5-36.0 [facility] Comment on above: Order Comment: Speci men Type: BLOOD SPECIMENOrdering Facility: [facility] Address: [address] [place], [place] [address] Performed By: #### 5 7021-8, 7 ####[facility] [id number] [address] [place] MCV (RBC) [Entitic vol] 82.9 fL Normal 80.0-100.0 [facility] Comment on above: Order Comment: Speci men Type: BLOOD SPECIMENOrdering Facility: [facility] Address: [address] Performed By: #### 5 7021-8, 4537-7 ####[facility] [id number] [place] [address] [place] Monocytes (Bld) [#/Vol] 0.50 10*3/uL Normal <0.87 [facility] Comment on above: Order Comment: Speci men Type: BLOOD SPECIMENOrdering Facility: [facility] Address: [address] [place] [address] Performed By: #### 5 7021-8, 4537-7 ####[facility]IA [id number] [place] [address] [place] Monocytes/100 WBC (Bld) 8.0 % Normal [facility] Comment on above: Order Comment: Speci men Type: BLOOD SPECIMENOrdering Facility: [facility] Address: [address] [place] [address] Performed By: #### 5 7021-8, 7-7 ####[facility] [id number] [place] [address] [place] Neutrophils (Bld) [#/Vol] 2.51 10*3/uL Normal 1.45-7.50 [facility] Comment on above: Order Comment: Speci men Type: BLOOD SPECIMENOrdering Facility: [facility] Address: [address] [place], [place] [address] Performed By: #### 5 7021-8, 7-7 ####[facility] [id number] [place] [address] [place] Neutrophils/100 WBC (Bld) 40.1 % Normal [facility] Comment on above: Order Comment: Speci men Type: BLOOD SPECIMENOrdering Facility: [facility] Address: [address] [place], [place] [address] Performed By: #### 5 7021-8, 4537-7 ####[facility] [id number] [place] [address] [place] Nucleated RBC (Bld) [#/Vol] 10*3/uL Normal <0.01 [facility] Comment on above: Order Comment: Speci men Type: BLOOD SPECIMENOrdering Facility: [facility] Address: [address] [place], [place] [address] Performed By: #### 5 7021-8, 7 ####[facility]IA [id number] [place] [address] [place] Nucleated RBC/100 WBC (Bld) [Ratio] 0.0 /100 WBC Normal [facility] Comment on above: Order Comment: Speci men Type: BLOOD SPECIMENOrdering Facility: [facility] Address: [address] [place], [place] [address] Performed By: #### 5 7021-8, 7 ####[facility] [id number] [place] [address] [place] Platelet mean volume (Bld) [Entitic vol] 11.5 fL Normal 9.0-12.7 [facility] Comment on above: Order Comment: Speci men Type: BLOOD SPECIMENOrdering Facility: [facility] Address: [address] [place], [place] [address] Performed By: #### 5 7021-8, 7 ####[facility]IA [id number] [place] [address] [place] Platelets (Bld) [#/Vol] 235 10*3/uL Normal 150-400 [facility] Comment on above: Order Comment: Speci men Type: BLOOD SPECIMENOrdering Facility: [facility] Address: [address] [place], [place] [address] Performed By: #### 5 7021-8, 4536-7 ####[facility]CLIA [id number] [place] [address] [place] RBC (Bld) [#/Vol] 4.45 10*6/uL Normal 3.90-5.20 [facility] Comment on above: Order Comment: Speci men Type: BLOOD SPECIMENOrdering Facility: [facility] Address: [address] [address] Performed By: #### 5 7021-8, 4537-7 ####[facility]CLIA [id number] [place] [address] [place] WBC (Bld) [#/Vol] 6.25 10*3/uL Normal 3.70-11.00 [facility] Comment on above: Order Comment: Speci men Type: BLOOD SPECIMENOrdering Facility: [facility] Address: [address] [place] [address] Performed By: #### 5 7021-8, 4537-7 ####[facility]CLIA [id number] [address] [place] CNOVon 10-22-2022 CNOV Office Visit (MARK ) ANY LUDWIG ([id number]) 1985 F Date Time Provider Department 10/22/22 9:00 AM FARIBA HILL During your visit today, we recorded the following information about you: Temperature Pulse Blood pressure Last Period 96.9 degrees 69/minute 116/79 09/23/22 Fariba Hill, [employer].DIRECTOR OF CLOUD SERVICES 11/18/2022 7:59 AM Addendum FOLLOW UP VISIT-in person PCP: Tino Blake MD [address] [place] [address] Ms. 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 Until she has her apt, we offered assistance with her RA care and follow up apt (more content not included)... Normal [facility] CRP [facility]20[facility] CRP [Mass/Vol] mg/L Normal <0.9 [facility] Comment on above: Order Comment: Speci men Type: BLOOD SPECIMENOrdering Facility: [facility] Address: [address] [place] [address] Performed By: #### 1 988-5, 60840-6 ####[facility]CLIA [id number] [facility] [id number] [address] [place] Comprehensive metabolic 2000 panelon 10-22-2022 Albumin [Mass/Vol] 4.0 g/dL 3.9 - 4.9 g/dL [facility] ALP [Catalytic activity/Vol] 62 U/L 34 - 123 U/L [facility] ALT [Catalytic activity/Vol] 23 U/L 7 - 38 U/L [facility] Anion gap [Moles/Vol] 12 mmol/L 9 - 18 mmol/L [facility] AST [Catalytic activity/Vol] 22 U/L 13 - 35 U/L [facility] Bilirubin [Mass/Vol] 0.2 mg/dL 0.2 - 1 .3 mg/dL [facility] Calcium [Mass/Vol] 9.0 mg/dL 8.5 - 10. 2 mg/dL [facility] Chloride [Moles/Vol] 105 mmol/L 97 - 10 5 mmol/L [facility] CO2 [Moles/Vol] 20 mmol/L Low 22 - 30 mmol/L [facility] Creatinine [Mass/Vol] 0.52 mg/dL Low 0.58 - 0.96 mg/dL [facility] Estimated Glomerular Filtration Rate 122 mL/min/1.73m >=60 mL/min/1.73m [facility] Glucose [Mass/Vol] 101 mg/dL High 74 - 99 mg/dL [facility] Potassium [Moles/Vol] 3.9 mmol/L 3.7 - 5.1 mmol/L [facility] Protein [Mass/Vol] 6.7 g/dL 6.3 - 8.0 g/dL [facility] Sodium [Moles/Vol] 137 mmol/L 136 - 144 mmol/L [facility] Urea nitrogen [Mass/Vol] 9 mg/dL 7 - 21 mg/dL [facility] Albumin [Mass/Vol] 4.0 g/dL Normal 3.9-4.9 [facility] Comment on above: Order Comment: Speci men Type: BLOOD SPECIMENOrdering Facility: [facility] Address: [address] [place], [place] [address] Performed By: #### 1 988-5, 92599-6 ####[facility]CLIA [id number] [place] [address] [place] ALP [Catalytic activity/Vol] 62 U/L Normal 34-123 [facility] Comment on above: Order Comment: Speci men Type: BLOOD SPECIMENOrdering Facility: [facility] Address: [address] [place], [place] [address] Performed By: #### 1 988-5, 99699-5 ####[facility]CLIA [id number] [place] [address] [place] ALT [Catalytic activity/Vol] 23 U/L Normal 7-38 [facility] Comment on above: Order Comment: Speci men Type: BLOOD SPECIMENOrdering Facility: [facility] Address: [address] [place] [address] Performed By: #### 1 988-5, 63358-6 ####[facility]IA [id number] [place] [address] [place] Anion gap [Moles/Vol] 12 mmol/L Normal 9-18 [facility] Comment on above: Order Comment: Speci men Type: BLOOD SPECIMENOrdering Facility: [facility] Address: [address] [place], [place] [address] Performed By: #### 1 988-5, 56810-5 ####[facility] [id number] [place] [address] [place] AST [Catalytic activity/Vol] 22 U/L Normal 13-35 [facility] Comment on above: Order Comment: Speci men Type: BLOOD SPECIMENOrdering Facility: [facility] Address: [address] [place], [place] [address] Performed By: #### 1 988-5, 68750-4 ####[facility]CLIA [id number] [place] [address] [place] Bilirubin [Mass/Vol] 0.2 mg/dL Normal 0.2-1.3 [facility] Comment on above: Order Comment: Speci men Type: BLOOD SPECIMENOrdering Facility: [facility] Address: [address] Performed By: #### 1 988-5, ####[facility]CLIA [id number] [place] [address] [place] Calcium [Mass/Vol] 9.0 mg/dL Normal 8.5-10.2 [facility] Comment on above: Order Comment: Speci men Type: BLOOD SPECIMENOrdering Facility: [facility] Address: [address] Performed By: #### 1 988-5, ####[facility]CLIA [id number] [place] [address] [place] Chloride [Moles/Vol] 105 mmol/L Normal 97-105 [facility] Comment on above: Order Comment: Speci men Type: BLOOD SPECIMENOrdering Facility: [facility] Address: [address] [place], [place] [address] Performed By: #### 1 988-5, ####[facility] [id number] [place] [place] [address] [place] CO2 [Moles/Vol] 20 mmol/L Low 22-30 [facility] Comment on above: Order Comment: Speci men Type: BLOOD SPECIMENOrdering Facility: [facility] Address: [address] [place] [address] Performed By: #### 1 988-5, ####[facility] LABCLIA [id number] [place] [address] [place] Creatinine [Mass/Vol] 0.52 mg/dL Low 0.58-0.96 [facility] Comment on above: Order Comment: Speci men Type: BLOOD SPECIMENOrdering Facility: [facility] Address: [address] Performed By: #### 1 988-5, 41349-6 ####[facility] [id number] [address] [place] Creatinine and Glomerular filtration rate.predicted panel (S/P/Bld) 122 mL/min/1.73m??? Normal >=60 [facility] Comment on above: Order Comment: Shaneka montemayor Type: BLOOD SPECIMENOrdering Facility: [facility] Address: [address] [address] Result Comment: Polly mated Glomerular Filtration Rate [...] actual GFR. Performed By: #### 1 988-5, 61490-7 ####[facility] LABIA [id number] [place] [address] [place] Glucose [Mass/Vol] 101 mg/dL High 74-99 [facility] Comment on above: Order Comment: Shaneka montemayor Type: BLOOD SPECIMENOrdering Facility: [facility] Address: [address] [place] [address] Result Comment: The [place] Diabetes Association (ADA) provides guidance for cutoff [...] Standards of Medical Care in Diabetes 2016, [place] Diabetes Association. Diabetes Care. 2016.39(Suppl 1). Performed By: #### 1 988-5, ####[facility] LABCLIA [id number] [place] [address] [place] Potassium [Moles/Vol] 3.9 mmol/L Normal 3.7-5.1 [facility] Comment on above: Order Comment: Speci men Type: BLOOD SPECIMENOrdering Facility: [facility] Address: [address] [place], [place] [address] Performed By: #### 1 988-, ####[facility] LABIA [id number] [place] [address] [place] Protein [Mass/Vol] 6.7 g/dL Normal 6.3-8.0 [facility] Comment on above: Order Comment: Speci men Type: BLOOD SPECIMENOrdering Facility: [facility] Address: [address] [place], [place] [address] Performed By: #### 1 988, ####[facility] LABIA [id number] [place] [address] [place] Sodium [Moles/Vol] 137 mmol/L Normal 136-144 [facility] Comment on above: Order Comment: Speci men Type: BLOOD SPECIMENOrdering Facility: [facility] Address: [address] [place], [place] [address] Performed By: #### 1 988-, ####[facility] LABIA [id number] [place] [address] [place] Urea nitrogen [Mass/Vol] 9 mg/dL Normal 7-21 [facility] Comment on above: Order Comment: Speci men Type: BLOOD SPECIMENOrdering Facility: [facility] Address: [address] Performed By: #### 1 988-5, ####[facility] LABIA [id number] [place] ESR Westergren method (Bld) [Velocity]on 10-22-2022 ESR (Bld) [Velocity] 20 mm/h 0 - 20 mm/hr [facility] ESR (Bld) [Velocity] 20 mm/h Normal 0-20 [facility] Comment on above: Order Comment: Speci men Type: BLOOD SPECIMENOrdering Facility: [facility] Address: [address] [facility] [place] [address] Performed By: #### 5 7021-8, 4537-7 ####[facility] LABCLIA [id number] [address] [place] Laboratory - Chemistry and C hemistry - challengeon 10-22-2022 Urate [Mass/Vol] 5.2 mg/dL 2.5 - 6.6 mg/dL [facility] Urate SerPl-mCncon Urate [Mass/Vol] 5.2 mg/dL Normal 2.5-6.6 [place] Comment on above: Order Comment: Speci men Type: BLOOD SPECIMENOrdering Facility: [facility] Address: [address] [place] [address] Performed By: #### 3 084-1 ####[facility] LABIA [id number] [address] [place] VITAMIN D 25 HYDROXYon 10-22 25-hydroxyvitamin D3 [Mass/Vol] 46.8 ng/mL 31.0 - 80.0 ng/mL [facility] CNPNon 08-31-2022 CNPN Telephone (RHEULI) ANY LUDWIG ([id number]) 1985 F Date Time Provider Department 08/31/22 [...] of pain at this time. Fariba Hill APRN.DIRECTOR OF CLOUD SERVICES 08/31/2022 4:19 PM Signed Sent RX Prednisone [...] Encounter Status:Closed by YESSY GALARZA on 08/31/22 Normal [facility] CBC W Auto Differential pane l (Bld)on 06-23-2022 Basophils (Bld) [#/Vol] 0.07 10*3/uL <0.11 k/uL [facility] Basophils/100 WBC (Bld) 1.4 % [facility] Differential cell count method Nom (Bld) Auto [facility] Eosinophils (Bld) [#/Vol] 0.27 10*3/uL <0.46 k/uL [facility] Eosinophils/100 WBC (Bld) 5.3 % [facility] Erythrocyte distribution width (RBC) [Ratio] 12.8 % 11.5 - 15.0 % [facility] Hematocrit (Bld) [Volume fraction] 33.5 % Low 36.0 - 46.0 % [facility] Hemoglobin (Bld) [Mass/Vol] 11.0 g/dL Low 11.5 - 15.5 g/dL [facility] Immature granulocytes (Bld) [#/Vol] 0.05 10*3/uL <0.10 k/uL [facility] Immature granulocytes/100 WBC (Bld) 1.0 % [facility] Lymphocytes (Bld) [#/Vol] 2.55 10*3/uL 1.00 - 4.00 k/uL [facility] Lymphocytes/100 WBC (Bld) 50.2 % [facility] MCH (RBC) [Entitic mass] 28.2 pg 26.0 - 34.0 pg [facility] MCHC (RBC) [Mass/Vol] 32.8 g/dL 30.5 - 36.0 g/dL [facility] MCV (RBC) [Entitic vol] 85.9 fL 80.0 - 100.0 fL [facility] Monocytes (Bld) [#/Vol] 0.32 10*3/uL <0.87 k/uL [facility] Monocytes/100 WBC (Bld) 6.3 % [facility] Neutrophils (Bld) [#/Vol] 1.82 10*3/uL 1.45 - 7.50 k/uL [facility] Neutrophils/100 WBC (Bld) 35.8 % [facility] Nucleated RBC (Bld) [#/Vol] <0.01 k/uL [facility] Nucleated RBC/100 WBC (Bld) [Ratio] 0.0 /100 WBC [facility] Platelet mean volume (Bld) [Entitic vol] 11.6 fL 9.0 - 12.7 fL [facility] Platelets (Bld) [#/Vol] 201 10*3/uL 150 - 400 k/uL [facility] RBC (Bld) [#/Vol] 3.90 10*6/uL 3.90 - 5.2 0 m/uL [facility] WBC (Bld) [#/Vol] 5.08 10*3/uL 3.70 - 11. 00 k/uL [facility] ESR Westergren method (Bld) [Velocity]on 06-23-2022 ESR (Bld) [Velocity] 15 mm/h 0 - 20 mm/hr [facility] C-REACTIVE PROTEIN (CRP)on 0 02-24-2022 CRP [Mass/Vol] 0.6 mg/dL <0.9 mg/dL [facility] CBC W Auto Differential pane l (Bld)on 02-24-2022 Basophils (Bld) [#/Vol] 0.05 10*3/uL <0.11 k/uL [facility] Basophils/100 WBC (Bld) 0.8 % [facility] Differential cell count method Nom (Bld) Auto [facility] Eosinophils (Bld) [#/Vol] 0.28 10*3/uL <0.46 k/uL [facility] Eosinophils/100 WBC (Bld) 4.6 % [facility] Erythrocyte distribution width (RBC) [Ratio] 12.4 % 11.5 - 15.0 % [facility] Hematocrit (Bld) [Volume fraction] 37.1 % 36.0 - 46.0 % [facility] Hemoglobin (Bld) [Mass/Vol] 12.3 g/dL 11.5 - 15.5 g/dL [facility] Immature granulocytes (Bld) [#/Vol] <0.10 k/uL [facility] Immature granulocytes/100 WBC (Bld) 0.3 % [facility] Lymphocytes (Bld) [#/Vol] 3.03 10*3/uL 1.00 - 4.00 k/uL [facility] Lymphocytes/100 WBC (Bld) 49.7 % [facility] MCH (RBC) [Entitic mass] 28.7 pg 26.0 - 34.0 pg [facility] MCHC (RBC) [Mass/Vol] 33.2 g/dL 30.5 - 36.0 g/dL [facility] MCV (RBC) [Entitic vol] 86.5 fL 80.0 - 100.0 fL [facility] Monocytes (Bld) [#/Vol] 0.49 10*3/uL <0.87 k/uL [facility] Monocytes/100 WBC (Bld) 8.0 % [facility] Neutrophils (Bld) [#/Vol] 2.23 10*3/uL 1.45 - 7.50 k/uL [facility] Neutrophils/100 WBC (Bld) 36.6 % [facility] Nucleated RBC (Bld) [#/Vol] <0.01 k/uL [facility] Nucleated RBC/100 WBC (Bld) [Ratio] 0.0 /100 WBC [facility] Platelet mean volume (Bld) [Entitic vol] 11.0 fL 9.0 - 12.7 fL [facility] Platelets (Bld) [#/Vol] 224 10*3/uL 150 - 400 k/uL [facility] RBC (Bld) [#/Vol] 4.29 10*6/uL 3.90 - 5.2 0 m/uL [facility] WBC (Bld) [#/Vol] 6.10 10*3/uL 3.70 - 11. 00 k/uL [facility] Comprehensive metabolic 2000 panelon 02-24-2022 Albumin [Mass/Vol] 4.0 g/dL 3.9 - 4.9 g/dL [facility] ALP [Catalytic activity/Vol] 89 U/L 34 - 123 U/L [facility] ALT [Catalytic activity/Vol] 18 U/L 7 - 38 U/L [facility] Anion gap [Moles/Vol] 12 mmol/L 9 - 18 mmol/L [facility] AST [Catalytic activity/Vol] 27 U/L 13 - 35 U/L [facility] Bilirubin [Mass/Vol] Low 0.2 - 1 .3 mg/dL [facility] Calcium [Mass/Vol] 9.0 mg/dL 8.5 - 10. 2 mg/dL [facility] Chloride [Moles/Vol] 102 mmol/L 97 - 10 5 mmol/L [facility] CO2 [Moles/Vol] 22 mmol/L 22 - 30 mmol/L [facility] Creatinine [Mass/Vol] 0.46 mg/dL Low 0.58 - 0.96 mg/dL [facility] Estimated Glomerular Filtration Rate 126 mL/min/1.73m >=60 mL/min/1.73m [facility] Glucose [Mass/Vol] 87 mg/dL 74 - 99 mg/dL [facility] Potassium [Moles/Vol] 3.7 mmol/L 3.7 - 5.1 mmol/L [facility] Protein [Mass/Vol] 6.7 g/dL 6.3 - 8.0 g/dL [facility] Sodium [Moles/Vol] 136 mmol/L 136 - 144 mmol/L [facility] Urea nitrogen [Mass/Vol] 7 mg/dL 7 - 21 mg/dL [facility] ESR Westergren method (Bld) [Velocity]on 02-24-2022 ESR (Bld) [Velocity] 29 mm/h High 0 - 20 mm/hr [facility] VITAMIN D 25 HYDROXYon 01-05 25-hydroxyvitamin D3 [Mass/Vol] 50.7 ng/mL 31.0 - 80.0 ng/mL [facility] Covid-19 PCR (CVDTBH)on 09-22 SARS-CoV-2 (COVID-19) RNA KARAN+probe Ql (Unsp spec) Not detected Normal NOT DETECTED [facility] Comment on above: Result Comment: When diagnostic [...] for this test is supported by the [place] Health and Human Service's declaration that [...] used). Performed By: #### C VDTBH #### [facility] [address] [place] [address] Dr. Funmi Bosch GROUP A STREP CULTUREon 09-22 S. pyogenes Ag Ql (Unsp spec) Culture Observations: NEGATIVE FOR GROUP A STREPTOCOCCUS. Normal [facility] Comment on above: Performed By: #### G RASTCX, SSCRN #### [facility] [address] [place] [address] Dr. Funmi Bosch STREPT SCREENon 10-07-2021 STREP SCREEN A Negative Normal NEGATIVE [facility] Comment on above: Performed By: #### G RASTCX, SSCRN #### [facility] [address] [place] [address] Dr. Funmi Bosch BUPERNORPHINE CONFIRMATION, URINEon 09-14-2021 Buprenorphine Positive Abnormal [facility] Comment on above: Result Comment: Conf irmation performed by Mass Spectrometry Performed By: #### B UPCON #### [facility] [address] [place] [address] Dr. Funmi Bosch Buprenorphine Confirm 1071 ng/mL Normal Cutoff=10 [facility] Comment on above: Performed By: #### B UPCON #### [facility] [address] [place] [address] Dr. Funmi Bosch Norbuprenorphine Positive Abnormal [facility] Comment on above: Performed By: #### B UPCON #### [facility] [address] [place] [address] Dr. Funmi Bosch Norbuprenorphine Confirm >2000 Normal Cutoff=10 [facility] Comment on above: Performed By: #### B UPCON #### [facility] [address] [place] [address] Dr. Funmi Bosch CBC AUTO DIFFon 09-04-2021 BASO # 0.0 103/ul Normal 0.0-0.1 [facility] Comment on above: Performed By: #### C BC #### [facility] [address] [place] [address] Dr. Funmi Bosch Basophils/100 WBC (Bld) 0.3 % Normal 0.2-2.0 [facility] Comment on above: Performed By: #### C BC #### [facility] [address] [place] [address] Dr. Funmi Bosch EO # 0.1 103/ul Normal 0.0-0.7 [facility] Comment on above: Performed By: #### C BC #### [facility] [address] [place] [address] Dr. Funmi Bosch Eosinophils/100 WBC (Bld) 0.6 % Critically low 0.9-7.0 [facility] Comment on above: Performed By: #### C BC #### [facility] [address] [place] [address] Dr. Funmi Bosch Erythrocyte distribution width (RBC) [Ratio] 13.4 % Normal 11.0-15.0 [facility] Comment on above: Performed By: #### C BC #### [facility] [address] [place] [address] Dr. Funmi Bosch Hematocrit (Bld) [Volume fraction] 35.2 % Critically low 36.0-48.0 [facility] Comment on above: Performed By: #### C BC #### [facility] [address] [place] [address] Dr. Funmi Bosch Hemoglobin (Bld) [Mass/Vol] 12.4 g/dL Normal 12.0-16.0 [facility] Comment on above: Performed By: #### C BC #### [facility] [address] [place] [address] Dr. Funmi Bosch IG # 0.04 10e3/ul Critically high 0.00-0.03 [facility] Comment on above: Performed By: #### C BC #### [facility] [address] [place] [address] Dr. Funmi Bosch IG % 0.3 % Normal 0.0-0.5 [facility] Comment on above: Performed By: #### C BC #### [facility] [address] [place] [address] Dr. Funmi Bosch LYMPH # 5.2 103/ul Critically high 1.2-3.8 [facility] Comment on above: Performed By: #### C BC #### [facility] [address] [place] [address] Dr. Funmi Bosch Lymphocytes/100 WBC (Bld) 41.7 % Normal 20.5-60.0 [facility] Comment on above: Performed By: #### C BC #### [facility] [address] [place] [address] Dr. Funmi Bosch MANUAL DIFF REQ NO Normal [facility] Comment on above: Performed By: #### C BC #### [facility] [address] [place] [address] Dr. Funmi Bosch MCH (RBC) [Entitic mass] 30.1 pg Normal 26.7-34.0 [facility] Comment on above: Performed By: #### C BC #### [facility] [address] [place] [address] Dr. Funmi Bosch MCHC (RBC) [Mass/Vol] 35.2 g/dL Normal 29.9-35.2 [facility] Comment on above: Performed By: #### C BC #### [facility] [address] [address] [address] Funmi Bosch MCV (RBC) [Entitic vol] 85.4 fL Normal 81.0-99.0 [facility] Comment on above: Performed By: #### C BC #### [facility] [address] [address] [address] Funmi Bosch MONO # 0.8 103/ul Normal 0.3-0.8 [facility] Comment on above: Performed By: #### C BC #### [facility] [address] [address] [address] Funmi Bosch Monocytes/100 WBC (Bld) 6.8 % Normal 1.7-12.0 [facility] Comment on above: Performed By: #### C BC #### [facility] [address] [address] [address] Funmi Bosch NEUT # 6.3 103/ul Normal 1.4-6.5 [facility] Comment on above: Performed By: #### C BC #### [facility] [address] [address] [address] Funmi Bosch Neutrophils/100 WBC (Bld) 50.3 % Normal 43.0-75.0 [facility] Comment on above: Performed By: #### C BC #### [facility] [address] [address] [address] Funmi Bosch Platelet mean volume (Bld) [Entitic vol] 9.9 fL Normal 9.5-13.5 [facility] Comment on above: Performed By: #### C BC #### [facility] [address] [address] [address] Funmi Bosch PLT 275 103/ul Normal 150-450 [facility] Comment on above: Performed By: #### C BC #### [facility] [address] [address] [address] Funmi Bosch RBC 4.12 106/ul Critically low 4.20-5.40 [facility] Comment on above: Performed By: #### C BC #### [facility] [address] [address] [address] Funmi Bosch WBC 12.4 103/ul Critically high 4.0-11.0 [facility] Comment on above: Performed By: #### C BC #### [facility] [id number] Funmi Bosch PREG QUANT HCGon 09-04-2021 HCG QUANT <1 Normal [facility] Comment on above: Performed By: #### P REGQNT #### [facility] [address] [address] [address] Funmi Bosch HCG RANGE SEE BELOW Normal [facility] Comment on above: Result Comment: 5-50 0-1 WEEK 40-300 1-2 WEEKS 100-1,000 2-3 WEEKS 500-6,000 3-4 WEEKS 5,000-200,000 1-2 MONTHS 10,000-100,000 2-3 MONTHS 3,000-50,000 2ND TRIMESTER 1,000-50,000 3RD TRIMESTER Performed By: #### P REGQNT #### [facility] [address] [address] [address] Funmi Bosch HCG QUAL UR B/Oon 09-03-2021 status Negative neg - pos [facility] Quality Check Yes [facility] Covid-19 PCR (CVDTBH)on 08-22 SARS-CoV-2 (COVID-19) RNA KARAN+probe Ql (Unsp spec) Not detected Normal NOT DETECTED [facility] Comment on above: Result Comment: This test is not yet approved or cleared by the [place] FDA. When there are no FDA-approved or cleared tests available, and other criteria are met, FDA can make tests available under an emergency access mechanism called an Emergency Use Authorization (EUA). The EUA for this test is supported by the [place] Health and Human Service's (HHS's) declaration [...] SARS-CoV-2. Performed By: #### C VDTBH #### [facility] [address] [place] [address] Dr. Funmi Bosch DRUG SCREEN RAPID (URINE)on 09-02-2021 AMP Negative Normal NEGATIVE [facility] Comment on above: Performed By: #### C VDTBH #### [facility] [address] [place] [address] Dr. Funmi Bosch BAR Negative Normal NEGATIVE [facility] Comment on above: Performed By: #### C VDTBH #### [facility] [address] [place] [address] Dr. Funmi Bosch BUP Positive Abnormal NEGATIVE [facility] Comment on above: Performed By: #### C VDTBH #### [facility] [address] [place] [address] Dr. Funmi Bosch BZO Negative Normal NEGATIVE [facility] Comment on above: Performed By: #### C VDTBH #### [facility] [address] [place] [address] Dr. Funmi Bosch LALA Negative Normal NEGATIVE [facility] Comment on above: Performed By: #### C VDTBH #### [facility] [address] [place] [address] Dr. Funmi Bosch CUT-OFFS SEE BELOW Normal [facility] Comment on above: Result Comment: AMP (Amphetamine): 500ng/mL, BAR (Barbituates): 200 ng/mL, BZO (Benzodiazepines): 150 ng/mL, BUP (Buprenorphine): 10 ng/mL, LALA (Cocaine): 150 ng/mL, mAMP (Methamphetamine): 500 ng/mL, MTD (Methadone): 200 ng/mL, OPI (Opiates): 100 ng/mL, OXY (Oxycodone): 100 ng/mL, PCP (Phencyclidine): 25 ng/mL, PPX (Propoxyphene): 300 ng/mL, THC (Cannabinoids): 50 ng/mL, TCA (Trycyclic Antidepressants): 300 ng/mL Performed By: #### C VDTBH #### [facility] [address] [place] [address] Dr. Funmi Bosch DRUG CUT HEADER DRUG CLASS TEST SYSTEM CUT-OFF CONCENTRATIONS ARE FOLLOWS: Normal [facility] Comment on above: Performed By: #### C VDTBH #### [facility] [address] [place] [address] Dr. Funmi Bosch mAMP Negative Normal NEGATIVE [facility] Comment on above: Performed By: #### C VDTBH #### [facility] [address] [place] [address] Dr. Funmi Bosch MTD Negative Normal NEGATIVE [facility] Comment on above: Performed By: #### C VDTBH #### [facility] [address] [place] [address] Dr. Funmi Bosch OPI Negative Normal NEGATIVE [facility] Comment on above: Performed By: #### C VDTBH #### [facility] [address] [place] [address] Dr. Funmi Bosch OXY Negative Normal NEGATIVE [facility] Comment on above: Performed By: #### C VDTBH #### [facility] [address] [place] [address] Dr. Funmi Bosch PCP Negative Normal NEGATIVE [facility] Comment on above: Performed By: #### C VDTBH #### [facility] [address] [place] [address] Dr. Funmi Bosch PPX Negative Normal NEGATIVE [facility] Comment on above: Performed By: #### C VDTBH #### [facility] [address] [place] [address] Dr. Funmi Bosch TCA Negative Normal NEGATIVE [facility] Comment on above: Performed By: #### C VDTBH #### [facility] [address] [place] [address] Dr. Funmi Bosch THC Negative Normal NEGATIVE [facility] Comment on above: Performed By: #### C VDTBH #### [facility] [address] [place] [address] Dr. Funmi Bosch Covid-19 PCR (CVDTB)on 07-24 SARS-CoV-2 (COVID-19) RNA KARAN+probe Ql (Unsp spec) Not detected Normal NOT DETECTED [facility] Comment on above: Result Comment: This test is not yet approved or cleared by the [place] FDA. When there are no FDA-approved or cleared tests available, and other criteria are met, FDA can make tests available under an emergency access mechanism called an Emergency Use Authorization (EUA). The EUA for this test is supported by the [place] of Health and Human Service's (HHS's) declaration [...] SARS-CoV-2. Performed By: #### C VDTB #### [facility] [address] [place] [address] Dr. Funmi Bosch GROUP A STREP CULTUREon 07-24 S. pyogenes Ag Ql (Unsp spec) Culture Observations: NEGATIVE FOR GROUP A STREPTOCOCCUS. Normal [facility] Comment on above: Performed By: #### C VDTBH #### [facility] [address] [place] [address] Dr. Funmi Bosch STREPT SCREENon 08-15-2021 STREP SCREEN A Negative Normal NEGATIVE [facility] Comment on above: Performed By: #### C VDTBH #### [facility] [address] [place] [address] Dr. Funmi Bosch XR CHEST 1 Von [...] acute cardiopulmonary process. Electronically authenticated by: RIMMA REIS Date: 2021-08-15 18:25 Normal [facility] HCG QUAL UR B/Oon 08-06-2021 status Negative neg - pos [facility] Quality Check Yes [facility] HCG QUAL UR B/Oon 07-23-2021 status Negative neg - pos [facility] Quality Check Yes [facility] XR CHEST (2 VW)on 09-15-2020 XR CHEST [...] Tashi Baptiste MD 09/15/20 Final result Normal [facility] XR CHEST (2 VW)Ordered By: Cleveland Caro on 09-15-2020 Possible interstitia l infiltrates. Probable small airways disease. [facility] [employer] Phone: EXAMINATION: TWO XRA Y VIEWS OF THE CHEST 09/15/2020 5:40 pm COMPARISON: None. HISTORY: ORDERING SYSTEM PROVIDED HISTORY: productive cough, wheezing TECHNOLOGIST PROVIDED HISTORY: productive cough, wheezing FINDINGS: Lungs are hyperaerated. Possible patchy bilateral interstitial infiltrates. Heart and mediastinum normal. Bony thorax intact. [email or web address] Phone: Kurt, Mhpn Incoming Radiant Results From [employer] - 09/15/2020 6:20 PM EDT EXAMINATION: TWO XRAY VIEWS OF THE CHEST 09/15/2020 5:40 pm COMPARISON: None. HISTORY: ORDERING SYSTEM PROVIDED HISTORY: productive cough, wheezing TECHNOLOGIST PROVIDED HISTORY: productive cough, wheezing FINDINGS: Lungs are hyperaerated. Possible patchy bilateral interstitial infiltrates. Heart and mediastinum normal. Bony thorax intact. IMPRESSION: Possible interstitial infiltrates. Probable small airways disease. [employer] Work Phone: [facility] [employer] Work Phone: CBC auto differentialon 06-22 Basophils (Bld) [#/Vol] 0.03 10*3/uL [place] Basophils/100 WBC (Bld) 0 % 0 - 2 % [place] Differential Type NOT REPORTED [place] Eosinophils (Bld) [#/Vol] 0.16 10*3/uL [place] Eosinophils/100 WBC (Bld) 1 % 1 - 4 % [place] Erythrocyte distribution width (RBC) [Ratio] 14.3 % 11.8 - 14.4 % [place] Hematocrit (Bld) [Volume fraction] 35.7 % Low 36.3 - 47.1 % [place] Hemoglobin (Bld) [Mass/Vol] 11.6 g/dL Low 11.9 - 15.1 g/dL [place] Immature granulocytes (Bld) [#/Vol] 2 % High 0 [place] Immature granulocytes (Bld) [#/Vol] 0.27 10*3/uL [place] Interpretation and review of laboratory results Abnormal [place] Lymphocytes (Bld) [#/Vol] 3.65 10*3/uL [place] Lymphocytes/100 WBC (Bld) 26 % 24 - 43 % [place] MCH (RBC) [Entitic mass] 28.3 pg 25.2 - 33.5 pg [place] MCHC (RBC) [Mass/Vol] 32.5 g/dL 28.4 - 34.8 g/dL [place] MCV (RBC) [Entitic vol] 87.1 fL 82.6 - 102.9 fL [place] Monocytes (Bld) [#/Vol] 0.97 10*3/uL [place] Monocytes/100 WBC (Bld) 7 % 3 - 12 % [place] Platelet mean volume (Bld) [Entitic vol] 10.3 fL 8.1 - 13.5 fL [place] Platelets (Bld) [#/Vol] NOT REPORTED [place] Platelets (Bld) [#/Vol] 349 10*3/uL [place] RBC (Bld) [#/Vol] 4.10 10*6/uL 3.95 - 5.1 1 m/uL [place] RBC morphology finding Nom (Bld) NOT REPORTED [place] Segmented neutrophils/100 WBC (Bld) 64 % 36 - 65 % [facility], [place] Segs Absolute 8.80 High [facility], [place] WBC (Bld) [#/Vol] 13.9 10*3/uL [place] WBC (Bld) [#/Vol] 0.0 10*3/uL 0.0 per 10 0 WBC [place] WBC Morphology NOT REPORTED [place] DRUG SCREEN MULTI URINEon Amphetamine Screen, Ur Negative NEGATIVE [facility], [place] Barbiturate Screen, Ur Negative NEGATIVE [facility] Benzodiazepine Screen, Urine Negative NEGATIVE [facility] Buprenorphine Urine Negative NEGATIVE [facility], [place] Cannabinoid Scrn, Ur Negative NEGATIVE [facility], [place] Cocaine Metabolite, Urine Negative NEGATIVE [facility], [place] MDMA, Urine NOT REPORTED NEGATIVE [facility], [place] Methadone Screen, Urine Negative NEGATIVE [facility], [place] Methamphetamine, Urine Negative NEGATIVE [facility], [place] Opiates, Urine Negative NEGATIVE [facility], [place] Oxycodone Screen, Ur Negative NEGATIVE [facility], [place] Phencyclidine, Urine Negative NEGATIVE [facility], [place] Propoxyphene, Urine Negative NEGATIVE [facility], [place] Test Information NOT REPORTED [place] Tricyclic Antidepressants, Urine Negative NEGATIVE [facility], [place] Comment on above: Drug screen results are to be used for medical purposes only. All positive results are unconfirmed. Testing for employment or legal uses should be sent to a reference laboratory for confirmation. Glucose tolerance, 1 houron 05-01-2019 GLU ADMN Glucola [place] Glucose tolerance screen 50g 116 mg/dL 70 - 135 mg/dL [facility] [place] Hemoglobinon 05-01-2019 Hemoglobin (Bld) [Mass/Vol] 11.0 g/dL Low 11.9 - 15.1 g/dL [place] Interpretation and review of laboratory results Abnormal [place] Rapid Influenza A/B Antigens on 04-04-2019 Direct Exam INFLUENZA TEST INVALID BY OUR TESTING METHOD. WILL BE SENT FOR CONFIRMATORY TESTING. [employer] Phone: Special Requests NOT REPORTED [employer] Phone: Specimen Description .NASOPHARYNGEAL SWAB [employer] Phone: TYPE AND SCREENon 1 ABO/Rh Negative [place] Antibody ID Anti-D, Passive Due To RhIG [place] Urine Drug Screen, Comprehen siveon 12-19-2018 Amphetamine Screen, Ur Negative NEGATIVE [facility], [place] Barbiturate Screen, Ur Negative NEGATIVE [facility] [place], [place] Benzodiazepine Screen, Urine Negative NEGATIVE [facility] [place] Buprenorphine Urine Negative NEGATIVE [facility], [place] Cannabinoid Scrn, Ur Negative NEGATIVE [facility] [employer] [facility] [place] Cocaine Metabolite, Urine Negative NEGATIVE [facility], [place] MDMA, Urine NOT REPORTED NEGATIVE [facility] [place] Methadone Screen, Urine Negative NEGATIVE [facility], [place] Methamphetamine, Urine Negative NEGATIVE [facility], [place] Opiates, Urine Negative NEGATIVE [facility] [place] Oxycodone Screen, Ur Negative NEGATIVE [facility] [employer] [facility] [place] Phencyclidine, Urine Negative NEGATIVE [facility] [place] Propoxyphene, Urine Negative NEGATIVE [facility], [place] Test Information NOT REPORTED [facility] Tricyclic Antidepressants, Urine Negative NEGATIVE [facility], [place] Comment on above: Drug screen results are to be used for medical purposes only. All positive results are unconfirmed. Testing for employment or legal uses should be sent to a reference laboratory for confirmation. ABO/RHon 12-03-2018 ABO/Rh Negative [facility] [place] CBCon 12-03-2018 Erythrocyte distribution width (RBC) [Ratio] 15.5 % High 11.8 - 14.4 % [place] Hematocrit (Bld) [Volume fraction] 32.8 % Low 36.3 - 47.1 % [place] Hemoglobin (Bld) [Mass/Vol] 10.5 g/dL Low 11.9 - 15.1 g/dL [place] Interpretation and review of laboratory results Abnormal [place] MCH (RBC) [Entitic mass] 27.1 pg 25.2 - 33.5 pg [place] MCHC (RBC) [Mass/Vol] 32.0 g/dL 28.4 - 34.8 g/dL [place] MCV (RBC) [Entitic vol] 84.8 fL 82.6 - 102.9 fL [place] Platelet mean volume (Bld) [Entitic vol] 10.6 fL 8.1 - 13.5 fL [place] Platelets (Bld) [#/Vol] 230 10*3/uL [place] RBC (Bld) [#/Vol] 3.87 10*6/uL Low 3.95 - 5.1 1 m/uL [place] WBC (Bld) [#/Vol] 0.0 10*3/uL 0.0 per 10 0 WBC [place] WBC (Bld) [#/Vol] 10.3 10*3/uL [place] Comprehensive Metabolic Pane miriam 12-03-2018 Albumin [Mass/Vol] 3.7 g/dL 3.5 - 5.2 g/dL [place] Albumin/Globulin [Mass ratio] 1.2 {ratio} [place] ALP [Catalytic activity/Vol] 64 U/L 35 - 104 U/L [place] ALT [Catalytic activity/Vol] 11 U/L 5 - 33 U/L [place] Anion gap [Moles/Vol] 15 mmol/L 9 - 17 mmol/L [place] AST [Catalytic activity/Vol] 17 U/L <32 [place] Bilirubin Ql (U) <0.10 Low 0.3 - 1.2 mg/dL [place] Bun/Cre Ratio 21 High [place], [place] Calcium [Mass/Vol] 9.5 mg/dL 8.6 - 10. 4 mg/dL [place] Chloride [Moles/Vol] 97 mmol/L Low 98 - 10 7 mmol/L [place] CO2 [Moles/Vol] 21 mmol/L 20 - 31 mmol/L [place] Creatinine [Mass/Vol] 0.47 mg/dL Low 0.5 - 0.9 mg/dL [place] GFR >60 >60 mL/min [place] GFR Non- >60 >60 mL/min [place] Glucose [Mass/Vol] 104 mg/dL High 70 - 99 mg/dL [place], [place] Interpretation and review of laboratory results Abnormal [place] Potassium [Moles/Vol] 3.5 mmol/L Low 3.7 - 5.3 mmol/L [place] Protein [Mass/Vol] 6.8 g/dL 6.4 - 8.3 g/dL [place] Sodium [Moles/Vol] 133 mmol/L Low 135 - 144 mmol/L [place] Urea nitrogen [Mass/Vol] 10 mg/dL 6 - 20 mg/dL [place] Metabolic Panelon 12-03-2018 GFR/1.73 sq M predicted among non-blacks MDRD (S/P/Bld) [Vol rate/Area] [place] Comment on above: Stage 1: Some [...] body mass. Additional eGFR calculator available at: http://www.Textbroker.com/multiple_crcl_2012.htm Microscopic Urinalysison Amorphous, UA 3+ Abnormal None [place] Bacteria, UA 1+ Abnormal None [place] Casts UA NOT REPORTED /LPF [place] Crystals UA NOT REPORTED None /HPF [place] Epithelial Cells UA 0 TO 2 [place] Interpretation and review of laboratory results Abnormal [place] Mucus, UA NOT REPORTED None [place] Other Observations UA NOT REPORTED NOT REQ. M [place] RBC (U) [#/Vol] 0 TO 2 [place] Renal Epithelial, Urine NOT REPORTED 0 /HPF [place] Trichomonas, UA NOT REPORTED None [place] WBC, UA 0 TO 2 [place] Yeast, UA NOT REPORTED None [place] Urinalysis Reflex to Culture on 12-03-2018 Bilirubin Urine Negative NEGATIVE [place] Color, UA YELLOW YELLOW [place] Glucose, Ur Negative NEGATIVE [place] Interpretation and review of laboratory results Abnormal [place] Ketones Ql (U) Negative NEGATIVE [place] Leukocyte esterase Test strip Ql (U) Negative NEGATIVE [place] Nitrite, Urine Negative NEGATIVE [place] pH, UA 7.5 [place] Protein (U) [Mass/Vol] Negative NEGATIVE [place] Specific [place], UA 1.015 [place] Turbidity UA CLOUDY Abnormal CLEAR [place] Urinalysis Comments NOT REPORTED [place] Urine Hgb Negative NEGATIVE [place] Urobilinogen, Urine Normal Normal [place] Wet Prep, Genitalon 12-04-19 19 Direct Exam YEAST PRESENT [place] Direct Exam NO CLUE CELLS SEEN [place] Direct Exam NO TRICHOMONAS SEEN [place] Special Requests NOT REPORTED [place] Specimen Description .VAGINA [place] hCG, quantitative, on 12-03-2018 hCG Quant [id number] High <5 IU/L [place] Comment on above: Non-preg premeno <=5 Postmeno <=8 Male <=3 If HCG results do not concur with clinical observations, additional testing to confirm results is recommended. Elevated results not associated with may be found in patients with other diseases such as tumors of the germ cells (testis, ovaries, etc.), bladder, pancreas, stomach, lungs, and liver. Interpretation and review of laboratory results Abnormal [place] Vital Signs Date Time Vital Sign Value Performing Clinician Facility 05-26-2023 13:42-0400 Body temperature 97.5 [degF] Silvia Cooper [employer].DIRECTOR OF CLOUD SERVICES Work Phone: [facility] 05-26-2023 13:42-0400 Diastolic blood pressure 66 mm[Hg] Silvia Cooper APRN.DIRECTOR OF CLOUD SERVICES Work Phone: [facility] 05-26-2023 13:42-0400 Heart rate 65 /min Silvia Cooper [employer]ER.DIRECTOR OF CLOUD SERVICES Work Phone: [facility] 05-26-2023 13:42-0400 SaO2% (BldA) [Mass fraction] 98 % Silvia Cooper APRN.DIRECTOR OF CLOUD SERVICES Work Phone: [facility] 05-26-2023 13:42-0400 Systolic blood pressure 107 mm[Hg] Silvia Cooper [employer]ER.DIRECTOR OF CLOUD SERVICES Work Phone: [facility] 05-26-2023 11:32-0400 Body temperature 97.2 [degF] Rheu Leslie Work Phone: [facility] 05-26-2023 11:32-0400 Body weight 74.9 kg Rheu Leslie Work Phone: [facility] 05-26-2023 11:32-0400 Diastolic blood pressure 69 mm[Hg] Rheu Leslie Work Phone: [facility] 05-26-2023 11:32-0400 Heart rate 65 /min Rheu Leslie Work Phone: [facility] 05-26-2023 11:32-0400 SaO2% (BldA) [Mass fraction] 96 % Rheu Leslie Work Phone: [facility] 05-26-2023 11:32-0400 Systolic blood pressure 106 mm[Hg] Rheu Leslie Work Phone: [facility] 04-28-2023 12:15-0500 Body temperature 97 [degF] Rheu Leslie Work Phone: [facility] 04-28-2023 12:15-0500 Body weight 73.6 kg Rheu Leslie Work Phone: [facility] 04-28-2023 12:15-0500 Diastolic blood pressure 73 mm[Hg] Rheu Leslie Work Phone: [facility] 04-28-2023 12:15-0500 Heart rate 80 /min Rheu Leslie Work Phone: [facility] 04-28-2023 12:15-0500 Respiratory rate 18 /min Rheu Leslie Work Phone: [facility] 04-28-2023 12:15-0500 Systolic blood pressure 110 mm[Hg] Rheu Leslie Work Phone: [facility] 03-31-2023 12:50-0500 Diastolic blood pressure 69 mm[Hg] Rheu Leslie Work Phone: [facility] 03-31-2023 12:50-0500 Heart rate 70 /min Rheu Leslie Work Phone: [facility] 03-31-2023 12:50-0500 Systolic blood pressure 112 mm[Hg] Rheu Leslie Work Phone: [facility] 03-31-2023 11:34-0500 Body temperature 97.39 [degF] Rheu Leslie Work Phone: [facility] 03-31-2023 11:34-0500 Body weight 74.39 kg Rheu Leslie Work Phone: [facility] 01-20-2023 08:40-0500 Body temperature 96.21 [degF] Fariba Hill APRN.DIRECTOR OF CLOUD SERVICES Work Phone: [facility] 01-20-2023 08:40-0500 Body weight 72.45 kg Fariba Hill APRN.DIRECTOR OF CLOUD SERVICES Work Phone: [facility] 01-20-2023 08:40-0500 Diastolic blood pressure 82 mm[Hg] Fariba Hill APRN.DIRECTOR OF CLOUD SERVICES Work Phone: [facility] 01-20-2023 08:40-0500 Heart rate 84 /min Fariba Hill APRN.DIRECTOR OF CLOUD SERVICES Work Phone: [facility] 01-20-2023 08:40-0500 SaO2% (BldA) [Mass fraction] 97 % Fariba Hill APRN.DIRECTOR OF CLOUD SERVICES Work Phone: [facility] 01-20-2023 08:40-0500 Systolic blood pressure 128 mm[Hg] Fariba Hill APRN.DIRECTOR OF CLOUD SERVICES Work Phone: [facility] 12-31-2022 10:45-0500 Body temperature 97.5 [degF] Rheu Leslie Work Phone: [facility] 12-31-2022 10:45-0500 Body weight 71.67 kg Rheu Leslie Work Phone: [facility] 12-31-2022 10:45-0500 Diastolic blood pressure 61 mm[Hg] Rheu Leslie Work Phone: [facility] 12-31-2022 10:45-0500 Heart rate 78 /min Rheu Leslie Work Phone: [facility] 12-31-2022 10:45-0500 SaO2% (BldA) [Mass fraction] 97 % Rheu Leslie Work Phone: [facility] 12-31-2022 10:45-0500 Systolic blood pressure 123 mm[Hg] Rheu Leslie Work Phone: [facility] 11-27-2022 09:44-0400 Body temperature 97 [degF] Rheu Leslie Work Phone: [facility] 11-27-2022 09:44-0400 Body weight 71.94 kg Rheu Leslie Work Phone: [facility] 11-27-2022 09:44-0400 Diastolic blood pressure 65 mm[Hg] Rheu Leslie Work Phone: [facility] 11-27-2022 09:44-0400 Heart rate 75 /min Rheu Leslie Work Phone: [facility] 11-27-2022 09:44-0400 Systolic blood pressure 112 mm[Hg] Rheu Leslie Work Phone: [facility] 10-22-2022 14:00-0400 Diastolic blood pressure 55 mm[Hg] Rheu Leslie Work Phone: [facility] 10-22-2022 14:00-0400 Heart rate 51 /min Rheu Leslie Work Phone: [facility] 10-22-2022 14:00-0400 Respiratory rate 18 /min Rheu Leslie Work Phone: [facility] 10-22-2022 14:00-0400 Systolic blood pressure 111 mm[Hg] Rheu Leslie Work Phone: [facility] 10-22-2022 10:52-0400 SaO2% (BldA) [Mass fraction] 100 % Rheu Leslie Work Phone: [facility] 10-22-2022 09:39-0400 Body weight 70.31 kg Rheu Leslie Work Phone: [facility] 10-22-2022 09:03-0400 Body temperature 96.91 [degF] Fariba Hill APRN.DIRECTOR OF CLOUD SERVICES Work Phone: [facility] 10-22-2022 09:03-0400 Diastolic blood pressure 79 mm[Hg] Fariba Hill APRN.DIRECTOR OF CLOUD SERVICES Work Phone: [facility] 10-22-2022 09:03-0400 Heart rate 69 /min Fariba Hill APRN.DIRECTOR OF CLOUD SERVICES Work Phone: [facility] 10-22-2022 09:03-0400 SaO2% (BldA) [Mass fraction] 98 % Fariba Hill APRN.DIRECTOR OF CLOUD SERVICES Work Phone: [facility] 10-22-2022 09:03-0400 Systolic blood pressure 116 mm[Hg] Fariba Hill APRN.DIRECTOR OF CLOUD SERVICES Work Phone: [facility] 09-17-2022 09:30-0400 Body temperature 98.01 [degF] Rheu Leslie Work Phone: [facility] 09-17-2022 09:30-0400 Body weight 70.31 kg Rheu Leslie Work Phone: [facility] 09-17-2022 09:30-0400 Diastolic blood pressure 80 mm[Hg] Rheu Leslie Work Phone: [facility] 09-17-2022 09:30-0400 Heart rate 85 /min Rheu Leslie Work Phone: [facility] 09-17-2022 09:30-0400 Respiratory rate 16 /min Rheu Leslie Work Phone: [facility] 09-17-2022 09:30-0400 Systolic blood pressure 139 mm[Hg] Rheu Leslie Work Phone: [facility] 04-14-2022 13:44-0500 Diastolic blood pressure 80 mm[Hg] Rheu Leslie Work Phone: [facility] 04-14-2022 13:44-0500 Heart rate 60 /min Rheu Leslie Work Phone: [facility] 04-14-2022 13:44-0500 Respiratory rate 18 /min Rheu Leslie Work Phone: [facility] 04-14-2022 13:44-0500 Systolic blood pressure 115 mm[Hg] Rheu Leslie Work Phone: [facility] 04-14-2022 10:24-0500 Body weight 66.22 kg Fariba Hill APRN.DIRECTOR OF CL[employer]D SERVICES Work Phone: [facility] 04-14-2022 10:24-0500 Diastolic blood pressure 74 mm[Hg] Fariba Hill [employer].DIRECTOR OF [employer]OUD SERVICES Work Phone: [facility] 04-14-2022 10:24-0500 Heart rate 72 /min Fariba Hill [employer]ER.DIRECTOR OF [employer]D SERVICES Work Phone: [facility] 04-14-2022 10:24-0500 Systolic blood pressure 126 mm[Hg] Fariba Hill [employer].DIRECTOR OF [employer]OUD SERVICES Work Phone: [facility] 02-24-2022 13:00-0500 Diastolic blood pressure 46 mm[Hg] Rheu Leslie Work Phone: [facility] 02-24-2022 13:00-0500 Heart rate 62 /min Rheu Leslie Work Phone: [facility] 02-24-2022 13:00-0500 Respiratory rate 16 /min Rheu Leslie Work Phone: [facility] 02-24-2022 13:00-0500 Systolic blood pressure 96 mm[Hg] Rheu Leslie Work Phone: [facility] 02-24-2022 10:00-0500 Body temperature 97.11 [degF] Rheu Leslie Work Phone: [facility] 02-24-2022 10:00-0500 Body weight 69.85 kg Rheu Leslie Work Phone: [facility] 01-05-2022 13:38-0500 Diastolic blood pressure 68 mm[Hg] Rheu Leslie Work Phone: [facility] 01-05-2022 13:38-0500 Heart rate 50 /min Rheu Leslie Work Phone: [facility] 01-05-2022 13:38-0500 Respiratory rate 20 /min Rheu Leslie Work Phone: [facility] 01-05-2022 13:38-0500 Systolic blood pressure 115 mm[Hg] Rheu Leslie Work Phone: [facility] 01-05-2022 10:05-0500 Body weight 70.76 kg Fariba Hill [employer].DIRECTOR OF [employer] SERVICES Work Phone: [facility] 01-05-2022 10:05-0500 Diastolic blood pressure 68 mm[Hg] Fariba Liz [employer]ER.DIRECTOR OF [employer] SERVICES Work Phone: [facility] 01-05-2022 10:05-0500 Heart rate 66 /min Fariba Liz [employer].DIRECTOR OF [employer] SERVICES Work Phone: [facility] 01-05-2022 10:05-0500 Systolic blood pressure 128 mm[Hg] Fariba Liz [employer]ER.DIRECTOR OF [employer] SERVICES Work Phone: [facility] 11-13-2021 16:03-0400 Diastolic blood pressure 63 mm[Hg] Rheu Leslie Work Phone: [facility] 11-13-2021 16:03-0400 Heart rate 60 /min Rheu Leslie Work Phone: [facility] [facility] [place] 11-13-2021 16:03-0400 Respiratory rate 18 /min Rheu Leslie Work Phone: [facility] [place] 11-13-2021 16:03-0400 Systolic blood pressure 106 mm[Hg] Rheu Leslie Work Phone: [facility] [place] 11-13-2021 13:20-0400 Body temperature 97 [degF] Rheu Leslie Work Phone: [facility] [place] 11-13-2021 13:20-0400 Body weight 73.94 kg Rheu Leslie Work Phone: [facility] [place] 09-03-2021 15:41-0400 Diastolic blood pressure 69 mm[Hg] Rheu Leslie Work Phone: [facility] [place] 09-03-2021 15:41-0400 Heart rate 74 /min Rheu Leslie Work Phone: [facility] [place] 09-03-2021 15:41-0400 Respiratory rate 18 /min Rheu Leslie Work Phone: [facility] [place] 09-03-2021 15:41-0400 Systolic blood pressure 114 mm[Hg] Rheu Leslie Work Phone: [facility] [place] 09-03-2021 12:55-0400 Body temperature 97.9 [degF] Rheu Leslie Work Phone: [facility] [place] 09-03-2021 12:55-0400 Body weight 71.67 kg Rheu Leslie Work Phone: [facility] [place] 08-06-2021 16:10-0400 Diastolic blood pressure 59 mm[Hg] Rheu Leslie Work Phone: [facility] [place] 08-06-2021 16:10-0400 Heart rate 55 /min Rheu Leslie Work Phone: [facility] [place] 08-06-2021 16:10-0400 Respiratory rate 18 /min Rheu Leslie Work Phone: [facility] [place] 08-06-2021 16:10-0400 Systolic blood pressure 105 mm[Hg] Rheu Leslie Work Phone: [facility] [place] 08-06-2021 13:00-0400 Body temperature 97.59 [degF] Rheu Leslie Work Phone: [facility] [place] 08-06-2021 13:00-0400 Body weight 74.03 kg Rheu Leslie Work Phone: [facility] [place] 07-23-2021 12:15-0400 Diastolic blood pressure 72 mm[Hg] Rheu Leslie Work Phone: [facility] [place] 07-23-2021 12:15-0400 Heart rate 78 /min Rheu Leslie Work Phone: [facility] [place] 07-23-2021 12:15-0400 Respiratory rate 18 /min Rheu Leslie Work Phone: [facility] [place] 07-23-2021 12:15-0400 Systolic blood pressure 118 mm[Hg] Rheu Leslie Work Phone: [facility] [place] 07-23-2021 08:54-0400 Body weight 74.39 kg Fariba Hill APRN.DIRECTOR OF CLOUD SERVICES Work Phone: [facility] [place] 07-23-2021 08:54-0400 Diastolic blood pressure 78 mm[Hg] Fariba Liz [employer].DIRECTOR OF CLOUD SERVICES Work Phone: [facility] [place] 07-23-2021 08:54-0400 Heart rate 66 /min Fariba Hill APRN.DIRECTOR OF CLOUD SERVICES Work Phone: [facility] [place] 07-23-2021 08:54-0400 Systolic blood pressure 122 mm[Hg] Fariba Hill APRN.DIRECTOR OF CLOUD SERVICES Work Phone: [facility] [place] 09-15-2020 17:13-0400 Body mass index (BMI) [Ratio] 25.69 kg/m2 [employer] Phone: 09-15-2020 17:13-0400 Body temperature 98.6 [degF] [employer] Phone: 09-15-2020 17:13-0400 Body weight 65.77 kg [employer] Phone: 09-15-2020 17:13-0400 Diastolic blood pressure 94 mm[Hg] [employer] Phone: 09-15-2020 17:13-0400 Heart rate 71 /min [employer] Phone: 09-15-2020 17:13-0400 Respiratory rate 14 /min [employer] Phone: 09-15-2020 17:13-0400 SaO2% (BldA) [Mass fraction] 96 % [employer] Phone: 09-15-2020 17:13-0400 Systolic blood pressure 136 mm[Hg] [employer] Phone: 03-15-2020 16:47-0500 Respiratory Rate 16 /min [employer], [place] 03-15-2020 16:03-0500 Body Temperature 98.91 [degF] [employer] [employer], [place] 03-15-2020 16:01-0500 BMI (Body Mass Index) 24.8 kg/m2 [employer], [place] 03-15-2020 16:01-0500 Body weight 63.5 kg [employer] , [place] 03-15-2020 16:01-0500 Height 160 cm [facility] , [place] 03-15-2020 15:58-0500 BP Diastolic 74 mm[Hg] [facility] , [place] 03-15-2020 15:58-0500 BP Systolic 128 mm[Hg] [facility] , [place] 03-15-2020 15:58-0500 Pulse (Heart Rate) 103 /min [facility], [place] 03-15-2020 15:58-0500 Pulse Oximetry 99 % [facility] , [place] 07-13-2019 07:18-0400 Body Temperature 97.9 [degF] Tosha [facility] [place] 07-13-2019 07:18-0400 BP Diastolic 68 mm[Hg] Tosha [facility] [place] , [place] 07-13-2019 07:18-0400 BP Systolic 109 mm[Hg] Tosha [facility] , [place] 07-13-2019 07:18-0400 Pulse (Heart Rate) 75 /min Tosha [facility] [place], [place] 07-13-2019 07:18-0400 Respiratory Rate 16 /min Tosha [facility], [place] 07-12-2019 09:51-0400 Pulse Oximetry 98 % Tosha Viera [facility] , [place] 07-11-2019 20:57-0400 BMI (Body Mass Index) 32.42 kg/m2 Tosha Viera [facility], [place] 07-11-2019 20:57-0400 Body weight 83.01 kg Toshagabi Viera [facility] , [place] 07-11-2019 20:57-0400 Height 160 cm Tosha [facility] , [place] 05-12-2019 06:15-0400 BMI (Body Mass Index) 33.66 kg/m2 [facility] [place] [place] 05-12-2019 06:15-0400 Body Temperature 99 [degF] Mk [facility] [place] 05-12-2019 06:15-0400 Body weight 86.18 kg [facility] , [place] 05-12-2019 06:15-0400 BP Diastolic 78 mm[Hg] [facility] , [place] 05-12-2019 06:15-0400 BP Systolic 130 mm[Hg] Mk Gael [facility] [place] , [place] 05-12-2019 06:15-0400 Height 160 cm Mk Gael [facility] [place] 05-12-2019 06:15-0400 Pulse (Heart Rate) 97 /min Mk Gael [facility] [place], [place] 05-12-2019 06:15-0400 Pulse Oximetry 100 % Mk Gael [facility] [place] 05-12-2019 06:15-0400 Respiratory Rate 16 /min Mk Gael [facility] [place] 05-04-2019 12:47-0400 Body Temperature 96.21 [degF] [address] [facility] 05-04-2019 12:47-0400 BP Diastolic 73 mm[Hg] [address] [facility] [place] , [place] 05-04-2019 12:47-0400 BP Systolic 129 mm[Hg] [address] [facility] [place] 05-04-2019 12:47-0400 Pulse (Heart Rate) 89 /min [address] [facility] [place] 05-04-2019 12:47-0400 Respiratory Rate 20 /min [address] [facility] 01-28-2019 20:45-0500 BP Diastolic 71 mm[Hg] [facility] [place] 01-28-2019 20:45-0500 BP Systolic 116 mm[Hg] [facility] [place] 01-28-2019 20:39-0500 Body Temperature 98.1 [degF] [facility] [place] 01-28-2019 20:39-0500 Pulse (Heart Rate) 91 /min [facility] [place] 01-28-2019 20:39-0500 Pulse Oximetry 99 % [facility] [place] 01-28-2019 20:39-0500 Respiratory Rate 20 /min [facility] [place] 12-03-2018 19:32-0400 BP Diastolic 63 mm[Hg] [facility] [place] 12-03-2018 19:32-0400 BP Systolic 134 mm[Hg] [facility] [place] 12-03-2018 19:32-0400 Pulse (Heart Rate) 95 /min [facility] ARBRIAN 12-03-2018 19:32-0400 Respiratory Rate 16 /min [facility] 12-03-2018 17:37-0400 BMI (Body Mass Index) 30.11 kg/m2 [facility] 12-03-2018 17:37-0400 Body Temperature 97.9 [degF] [facility] 12-03-2018 17:37-0400 Body weight 77.11 kg [facility] BRIAN 12-03-2018 17:37-0400 Pulse Oximetry 99 % [place], [place] Encounters Encounter Date Encounter Type Care Provider Facility Start: 12-19-2023 End: 12-20-2023 Refill Niya Santiago NP Work Phone: [facility] Comment on above: Wheezing Start: 08-16-2023 Telephone encounter Fariba carey [employer].DIRECTOR OF [employer]D SERVICES Work Phone: Infusion Start: 07-16-2023 ambulatory [facility] Provider Rheumatolo gy Comment on above: Infusion Wednesday Start: 07-16-2023 E-mail encounter fro m caregiver [facility] Provider Rheumatology Start: 06-28-2023 ambulatory Nurse Lizbeth [facility] Leslie Work Phone: Infusion Start: 06-25-2023 Telephone encounter Fariba carey [employer].DIRECTOR OF CLOUD SERVICES Work Phone: Infusion Start: 06-21-2023 ambulatory [facility] Infusion Comment on above: Infusion Wednesday Start: 06-21-2023 E-mail encounter fro m caregiver [facility] Infusion Start: 06-20-2023 Orders Only Fariba Hill [employer].DIRECTOR OF [employer]D SERVICES Work Phone: Rheumatology Start: 05-28-2023 Telephone encounter Fariba carey [employer].DIRECTOR OF CLOUD SERVICES Work Phone: Infusion Start: 05-26-2023 End: 05-26-2023 ambulatory TINO BLAKE Facility:[facility] Start: 05-26-2023 End: 05-26-2023 Office outpatient visit 15 minutes Silvia Cooper APRN.DIRECTOR OF CLOUD SERVICES Work Phone: [facility] Comment on above: Wheezing (Primary Dx ) Start: 05-26-2023 End: 05-26-2023 Patient encounter procedure Fariba Hill APRN.DIRECTOR OF CLOUD SERVICES Work Phone: Rheumatology Comment on above: Seropositive [...] encounter margarito haider caregiver [facility] Provider [facility] Start: 05-14-2023 Telephone encounter Sj Mejia ( Coord) Radiology Comment on above: Appointment Start: 05-03-2023 End: 05-03-2023 ambulatory NIYAJose SANTIAGO Not Available Start: 04-28-2023 End: 04-28-2023 Patient encounter procedure Fariba Hill APRN.DIRECTOR OF CLOUD SERVICES Work Phone: Rheumatology Comment on above: Seropositive rheumat oid arthritis (HCC) (Primary Dx); Localized superficial swelling, mass, or lump; Encounter for medication review and counseling; Synovitis; Encounter to discuss test results; Medication monitoring encounter; Smoker Start: 04-28-2023 Telephone encounter Fariba carey APRN.DIRECTOR OF CLOUD SERVICES Work Phone: Infusion Start: 04-28-2023 End: 04-28-2023 ambulatory Rheu Chair 9 Leslie Work Phone: Infusion Comment on above: Seropositive rheumat oid arthritis (HCC) (Primary Dx) Start: 04-25-2023 Orders Only Fariba Hill APRN.DIRECTOR OF CLOUD SERVICES Work Phone: Rheumatology Start: 04-20-2023 Telephone encounter Juan Daniel Mcarthur MD Work Phone: Rheumatology Comment on above: No Show (To f/u apt) Start: 03-31-2023 End: 03-31-2023 ambulatory Rheu Chair 4 Leslie Work Phone: Infusion Comment on above: Seropositive rheumat oid arthritis (HCC) (Primary Dx) Start: 03-29-2023 ambulatory [facility] Provider Infusion Comment on above: Infusion for 03/31/23 Start: 03-29-2023 E-mail encounter fro m caregiver [facility] Provider [facility] Start: 03-28-2023 Orders Only Fariba Hill APRN.DIRECTOR OF CLOUD SERVICES Work Phone: Rheumatology Start: 03-11-2023 End: 03-11-2023 ambulatory NIYA AICHHOLZ Not Available Start: 03-01-2023 End: 03-01-2023 ambulatory TINO BLAKE Facility:[facility] Start: 02-16-2023 Telephone encounter Fariba carey APRN.DIRECTOR OF CLOUD SERVICES Work Phone: Infusion Start: 02-01-2023 [facility] Leslie Work Phone: Infusion Start: 01-29-2023 Orders Only Fariba Hill [employer].DIRECTOR OF CLOUD SERVICES Work Phone: Rheumatology Comment on above: Infusion 02/13 Start: 01-25-2023 End: 01-25-2023 ambulatory NIYA AICHHOLZ Not Available Start: 01-20-2023 Telephone encounter Fariba carey [employer].DIRECTOR OF CLOUD SERVICES Work Phone: Rheumatology Comment on above: Medication Problem Start: 01-20-2023 End: 01-20-2023 ambulatory FARIBA HILL Facility:[facility] Start: 01-20-2023 End: 01-20-2023 Patient encounter procedure Fariba Hill APRN.DIRECTOR OF CLOUD SERVICES Work Phone: Rheumatology Comment on above: Seropositive rheumat oid arthritis (HCC) (Primary Dx); Pain in right foot; Encounter for monitoring leflunomide therapy; Encounter for medication review and counseling; Synovitis; Vitamin D deficiency; Medication monitoring encounter; Encounter to discuss test results Start: 12-31-2022 End: 12-31-2022 ambulatory Rheu Chair 3 Leslie Work Phone: Infusion Comment on above: Seropositive rheumat oid arthritis (HCC) (Primary Dx) Start: 12-30-2022 Orders Only Fariba Hill APRN.DIRECTOR OF CLOUD SERVICES Work Phone: Rheumatology Start: 12-29-2022 ambulatory [facility] Provider Infusion Comment on above: Infusion Start: 12-29-2022 E-mail encounter margarito haider caregiver [facility] Provider [facility] Start: 12-17-2022 Telephone encounter Fariba carey [employer].DIRECTOR OF CLOUD SERVICES Work Phone: Rheumatology Comment on above: Results Start: 12-14-2022 Telephone encounter Fariba carey [employer].DIRECTOR OF CLOUD SERVICES Work Phone: [facility] [place] Comment on above: Lab Orders Start: 12-11-2022 Telephone encounter Fariba carey [employer].DIRECTOR OF CLOUD SERVICES Work Phone: Rheumatology Comment on above: Results Start: 11-27-2022 End: 11-27-2022 ambulatory Rheu Chair 9 Leslie Work Phone: Infusion Comment on above: Seropositive rheumat oid arthritis (HCC) (Primary Dx) Start: 11-25-2022 [facility] Work Phone: Infusion Start: 11-11-2022 Telephone encounter Tino Blake MD Work Phone: [place] Start: 10-22-2022 End: 10-22-2022 ambulatory Rheu Chair 7 Leslie Work Phone: Infusion Comment on above: Seropositive rheumat oid arthritis (HCC) (Primary Dx); Vitamin D deficiency; Synovitis Start: 10-22-2022 End: 10-22-2022 Patient encounter procedure Fariba Hill APRN.DIRECTOR OF CLOUD SERVICES Work Phone: Rheumatology Comment on above: Seropositive rheumat oid arthritis (HCC) (Primary Dx); Synovitis; Vitamin D deficiency; Encounter for monitoring leflunomide therapy; Encounter for medication review and counseling; Encounter to discuss test results; Counseling on health promotion and disease prevention; Smoker Start: 10-20-2022 ambulatory [facility] Provider Infusion Comment on above: Infusion Start: 10-20-2022 E-mail encounter fro m caregiver [facility] Provider [facility] Start: 09-17-2022 End: 09-17-2022 ambulatory Rheu Chair 8 Leslie Work Phone: Infusion Comment on above: Seropositive rheumat oid arthritis (HCC) (Primary Dx) Start: 09-15-2022 ambulatory Fariba Hill APRN.DIRECTOR OF CLOUD SERVICES Work Phone: Infusion Comment on above: Infusion for 09/17/22 Start: 09-15-2022 E-mail encounter fro m caregiver Fariba Hill APRN.DIRECTOR OF CLOUD SERVICES Work Phone: [facility] Start: 08-31-2022 Orders Only Fariba Hill APRN.DIRECTOR OF CLOUD SERVICES Work Phone: Rheumatology Start: 08-05-2022 Telephone encounter Juan Daniel Mcarthur MD Work Phone: [facility] Comment on above: Insurance Authorizat ion (Prior Auth Delayed: P2P requested for [place]) Start: 07-24-2022 Orders Only Fariba Hill APRN.DIRECTOR OF CLOUD SERVICES Work Phone: Rheumatology Start: 06-23-2022 End: 06-23-2022 ambulatory Rheu Chair 5 Leslie Work Phone: Infusion Comment on above: Seropositive rheumat oid arthritis (HCC) (Primary Dx); Vitamin D deficiency Start: 06-22-2022 ambulatory Fariba Hill APRN.DIRECTOR OF CLOUD SERVICES Work Phone: Infusion Comment on above: Infusion Confirmatio n Start: 06-22-2022 E-mail encounter fro m caregiver Fariba Hill APRN.DIRECTOR OF CLOUD SERVICES Work Phone: [facility] Start: 04-28-2022 End: 04-28-2022 ambulatory Fariba Hill APRN.DIRECTOR OF CLOUD SERVICES Work Phone: Rheumatology Comment on above: Seropositive rheumat oid arthritis (HCC) (Primary Dx) Start: 04-28-2022 End: 04-28-2022 Telemedicine consultation with patient Fariba Hill APRN.DIRECTOR OF CLOUD SERVICES Work Phone: [facility] Start: 04-15-2022 Orders Only Fariba Hill APRN.DIRECTOR OF CLOUD SERVICES Work Phone: Rheumatology Comment on above: Results Start: 04-14-2022 End: 04-14-2022 Subsequent hospital visit by physician Jessica Aquino 1 Work Phone: Radiology Comment on above: Seropositive rheumat oid arthritis (HCC) [M05.9] Start: 04-14-2022 End: 04-14-2022 ambulatory Rheu Chair 2 Leslie Work Phone: Infusion Comment on above: Seropositive rheumat oid arthritis (HCC) (Primary Dx); Vitamin D deficiency Start: 04-14-2022 End: 04-14-2022 Patient encounter procedure Fariba Hill APRN.DIRECTOR OF CLOUD SERVICES Work Phone: Rheumatology Comment on above: Seropositive rheumat oid arthritis (HCC) (Primary Dx); Vitamin D deficiency; Smoker; Pain in left foot; Encounter for medication review and counseling; Encounter to discuss test results; Encounter for monitoring leflunomide therapy; Counseling on health promotion and disease prevention; High risk medication use Start: 04-10-2022 Orders Only Fariba Hill APRN.DIRECTOR OF CLOUD SERVICES Work Phone: Rheumatology Start: 03-07-2022 Refill Fariba Hill APRN.DIRECTOR OF CLOUD SERVICES Work Phone: Rheumatology Comment on above: Refill Request Start: 02-25-2022 Telephone encounter Fariba carey APRN.DIRECTOR OF CLOUD SERVICES Work Phone: Rheumatology Comment on above: Results Start: 02-24-2022 End: 02-24-2022 Subsequent hospital visit by physician Jessica [facility] [place] [facility] Comment on above: Left without seen Start: 02-24-2022 End: 02-24-2022 ambulatory Rheu Chair 7 Leslie Work Phone: Infusion Comment on above: Seropositive rheumat oid arthritis (HCC) (Primary Dx) Start: 02-20-2022 Telephone encounter Fariba carey APRN.DIRECTOR OF CLOUD SERVICES Work Phone: Infusion Comment on above: Patient Question Start: 02-03-2022 ambulatory Pcp (Historical) [facility] Start: 01-30-2022 Orders Only Fariba Hill APRN.DIRECTOR OF CLOUD SERVICES Work Phone: Rheumatology Start: 01-26-2022 Telephone encounter Juan Daniel Mcarthur MD Work Phone: [facility] Comment on above: Insurance Authorizat ion (Prior auth delayed: Additional Info Needed ([employer])) Start: 01-06-2022 [facility] Comment on above: Smoking Cessation Patient Update Start: 01-05-2022 End: 01-05-2022 ambulatory Rheu Chair 2 Leslie Work Phone: Infusion Comment on above: Vitamin D deficiency (Primary Dx); Seropositive rheumatoid arthritis (HCC) Start: 01-05-2022 End: 01-05-2022 Patient encounter procedure Fariba Hill APRN.DIRECTOR OF CLOUD SERVICES Work Phone: Rheumatology Comment on above: Seropositive rheumat oid arthritis (HCC) (Primary Dx); Smoker; Pain in left foot; Encounter for medication review and counseling; Encounter to discuss test results; Encounter for monitoring leflunomide therapy; Counseling on health promotion and disease prevention; High risk medication use; Rheumatoid arthritis flare (HCC) Start: 01-02-2022 ambulatory Fariba Hill APRN.DIRECTOR OF CLOUD SERVICES Work Phone: Infusion Comment on above: Infusion for tomorro w. Start: 01-02-2022 E-mail encounter fro m caregiver Fariba Hill APRN.DIRECTOR OF CLOUD SERVICES Work Phone: [facility] Start: 01-02-2022 Telephone encounter Fariba carey APRN.DIRECTOR OF CLOUD SERVICES Work Phone: Infusion Comment on above: Patient Question Start: 12-16-2021 Orders Only Fariba Hill APRN.DIRECTOR OF CLOUD SERVICES Work Phone: Rheumatology Start: 12-15-2021 Telephone encounter Fariba carey APRN.DIRECTOR OF CLOUD SERVICES Work Phone: Infusion Start: 11-13-2021 End: 11-13-2021 ambulatory Rheu Chair 5 Leslie Work Phone: Infusion Comment on above: Seropositive rheumat oid arthritis (HCC) (Primary Dx); Vitamin D deficiency Start: 11-11-2021 ambulatory Fariba Hill APRN.DIRECTOR OF CLOUD SERVICES Work Phone: Infusion Comment on above: Infusion for tomorro w Start: 11-11-2021 E-mail encounter fro m caregiver Fariba Hill APRN.DIRECTOR OF CLOUD SERVICES Work Phone: [facility] Start: 11-11-2021 Telephone encounter Fariba Shara Rachel carey APRN.DIRECTOR OF CLOUD SERVICES Work Phone: Infusion Comment on above: Patient Question Start: 11-06-2021 Orders Only Fariba Hill APRN.DIRECTOR OF CLOUD SERVICES Work Phone: Rheumatology Start: 11-03-2021 End: 11-04-2021 ambulatory NONE LISTED REQUEST Facility: Start: 10-30-2021 Orders Only Fariba Hill APRN.DIRECTOR OF CLOUD SERVICES Work Phone: Rheumatology Start: 10-29-2021 End: 10-29-2021 ambulatory Fariba Shara Liz FIGUEROA.DIRECTOR OF CLOUD SERVICES Work Phone: Rheumatology Comment on above: Seropositive [...] 10-29-2021 Telemedicine consultation with patient Fariba Ramoscherry IGLESIASDIRECTOR OF CLOUD SERVICES Work Phone: [facility] Start: 10-28-2021 Telephone encounter Fariba carey APRN.DIRECTOR OF CLOUD SERVICES Work Phone: Infusion Start: 10-24-2021 Orders Only Fariba Hill APRN.DIRECTOR OF CLOUD SERVICES Work Phone: Rheumatology Start: 10-07-2021 End: 10-07-2021 ambulatory NONE LISTED REQUEST Facility: Start: 09-05-2021 Encounter for preprocedural laboratory examination DR PATRICIO RAM . [facility] Start: 09-05-2021 End: 09-05-[address] PATRICIO [...] Facility:[facility] Start: 09-01-2021 Telephone encounter Fariba carey [employer].DIRECTOR OF CLOUD SERVICES Work Phone: Infusion Comment on above: Question Start: 08-15-2021 End: 08-15-2021 ambulatory ADRIANA STEPHENS Facility:[facility] Start: 08-07-2021 Telephone encounter Fariba carey [employer].DIRECTOR OF CLOUD SERVICES Work Phone: Rheumatology Comment on above: Results [...] End: 07-23-2021 Patient encounter procedure Fariba Hill [employer].DIRECTOR OF CLOUD SERVICES Work Phone: Rheumatology Comment on above: Seropositive rheumat oid arthritis (HCC) (Primary Dx); Medication monitoring encounter; H/O noncompliance with medical treatment, presenting hazards to health; Encounter for medication review and counseling; Encounter to discuss test results; Counseling on health promotion and disease prevention; Encounter for monitoring leflunomide therapy Start: 07-22-2021 Telephone encounter Fariba carey [employer].DIRECTOR OF CLOUD SERVICES Work Phone: Infusion Comment on above: Question; Return Pro vider Call Start: 07-15-2021 Telephone encounter Fariba carey [employer].DIRECTOR OF CLOUD SERVICES Work Phone: Rheumatology Comment on above: Appointment Start: 07-11-2021 End: 07-11-2021 Emergency department patient visit [facility] Start: 07-08-2021 Telephone encounter Fariba carey [employer].DIRECTOR OF CLOUD SERVICES Work Phone: [facility] Comment on above: Insurance Authorizat ion (Prior Auth Delayed: Additional Info needed for [employer]) Start: 07-04-2021 Orders Only Juan Daniel sanchez MD Work Phone: Rheumatology Start: 06-24-2021 Telephone encounter Fariba carey [employer].DIRECTOR OF CLOUD SERVICES Work Phone: Rheumatology Comment on above: Medication Problem Start: 06-17-2021 Telephone encounter Fariba carey [employer].DIRECTOR OF CLOUD SERVICES Work Phone: Rheumatology Comment on above: Results Start: 09-15-2020 End: 09-15-2020 Emergency department patient visit [facility] Start: 09-15-2020 End: 09-15-2020 Emergency department patient visit [facility] ED Comment on above: Pneumonia of both tyra ngs due to infectious organism, unspecified part of lung (Primary Dx) Start: 03-15-2020 End: 03-15-2020 Emergency department patient visit [facility] ED Comment on above: Suspected COVID-19 v irus infection (Primary Dx) Start: 07-11-2019 End: 07-13-2019 Evaluation and management of inpatient Tosha Tanisha Viera Work Phone: [facility] Labor and Delivery Start: 07-06-2019 End: 07-06-2019 Subsequent [facility] visit by [facility] [facility] Laboratory Comment on above: 38 weeks gestation o f Start: 05-12-2019 End: 05-12-2019 Emergency department patient visit Mk Mayo Work Phone: [facility] ED Comment on above: Superficial thrombop hlebitis of left upper extremity (Primary Dx) Start: 05-04-2019 End: 05-04-2019 Subsequent hospital visit by physician [facility] Op Treatment 01 [facility] ([facility]) Start: 05-03-2019 End: 05-03-2019 Subsequent hospital visit by physician [facility] Op Treatment 01 [facility] ([facility]) Comment on above: Canceled (Patient) Start: 05-02-2019 End: 05-02-2019 Subsequent hospital visit by physician [facility] Op Treatment 01 [facility] ([facility]) Comment on above: Canceled (Patient) Start: 05-01-2019 End: 05-01-2019 Subsequent hospital visit by physician [facility] Laboratory Comment on above: Encounter for superv ision of other normal in third trimester; 29 weeks gestation of Start: 04-04-2019 End: 04-04-2019 Subsequent hospital visit by physician [facility] Laboratory Comment on above: Acute nasopharyngiti s Start: 2019 End: 02-19-2019 Subsequent hospital visit by physician [facility] Ultrasound Comment on above: Right upper quadrant abdominal pain Start: 01-28-2019 End: 01-28-2019 Emergency department patient visit [facility] ED Comment on above: Carpal tunnel syndro me of right wrist (Primary Dx) Start: 01-16-2019 End: 01-16-2019 Subsequent hospital visit by physician [facility] Laboratory Comment on above: Screening for cervic al cancer Start: 12-19-2018 End: 12-19-2018 Subsequent hospital visit by physician [facility] Laboratory Comment on above: Encounter for superv ision of normal in first trimester, unspecified ; Screening for cystic fibrosis; Screening, , for anatomic survey Start: 12-03-2018 End: 12-03-2018 Emergency department patient visit [facility] ED Comment on above: Threatened miscarria ge (Primary Dx); Yeast infection Procedures Date Procedure Procedure Detail Performing Clinician Start: 05-26-2023 C-reactive protein Fariba Hill APRN.DIRECTOR OF [employer] SERVICES Work Phone: Start: 05-26-2023 CREATININE BLD Fariba iverson [employer].DIRECTOR OF [employer] Work Phone: Start: 05-26-2023 Transferase alanine amino alt sgpt Fariba Hill [employer].DIRECTOR OF [employer] Work Phone: Start: 11-27-2022 Blood count complete auto&auto difrntl wbc Fariba Ramosick [employer].DIRECTOR OF [employer] Work Phone: Start: 11-27-2022 C-reactive protein Fariba Ramosick [employer].DIRECTOR OF [employer] Work Phone: Start: 10-22-2022 Blood count complete auto&auto difrntl wbc Fariba Ramosick [employer].DIRECTOR OF [employer] Work Phone: Start: 10-22-2022 C-reactive protein Fariba Ramosick [employer].DIRECTOR OF [employer] Work Phone: Start: 06-23-2022 Blood count complete auto&auto difrntl wbc Fariba Ramosick [employer].DIRECTOR OF [employer] Work Phone: Start: 02-24-2022 Blood count complete auto&auto difrntl wbc Fariba Ramosick [employer].DIRECTOR OF [employer] Work Phone: Start: 02-24-2022 C-reactive protein Fariba Ramosick [employer].DIRECTOR OF [employer] Work Phone: Start: 01-05-2022 25 hydroxy includes fractions if performed Fariba Shara Liz FIGUEROA.DIRECTOR OF [employer]OUD SERVICES Work Phone: Start: 09-03-2021 Urine test visual color cmprsn meths Fariba Haider Liz [employer].DIRECTOR OF [employer] Work Phone: Start: 08-06-2021 Urine test visual color cmprsn meths Fariba Ramosick [employer].DIRECTOR OF [employer] Work Phone: Start: 07-23-2021 Urine test visual color cmprsn meths Fariba Ramosick [employer].DIRECTOR OF [employer] Work Phone: Start: 09-15-2020 Radiologic exam ches [...] real ti me w/image limited Tosha Viera [employer] - CNM Work Phone: Start: 01-16-2019 Microscopic observat ion [Identifier] in Cervix by Cyto stain Niya Santiago [employer] Work Phone: Start: 12-19-2018 Antibody screen Start: 12-19-2018 Obstetric panel Tosha Viera Work Phone: Start: 12-19-2018 Blood typing serologic abo Tosha Viera Work Phone: Start: 12-19-2018 Drug screen, qualitate/multi Tosha Viera Work Phone: Start: 12-03-2018 Urinalysis microscopic only Loida Gordo Work Phone: Start: 12-03-2018 Urnls dip stick/tabl et rgnt auto w/o microscopy [facility] Work Phone: Start: 12-03-2018 Smr prim src wet jude nt nfct agt [facility] Work Phone: Start: 12-03-2018 Blood count complete automated [facility] Work Phone: Start: 12-03-2018 Blood typing serologic abo [employer] Work Phone: Start: 12-03-2018 Comprehensive metabo lic panel [facility] Work Phone: Start: 12-03-2018 Gonadotropin chorion ic quantitative [facility] Work Phone: Start: 12-30-2017 Adult depression scr eening assessment Juan Daniel Leos MD Work Phone: Plan of Treatment Date Care Activity Detail Author Start: 06-03-2031 Urine microalbumin profile [facility] Start: 01-18-2024 End: 01-18-2024 Patient encounter procedure 01/18/2024 9:40 AM EST Office Visit [facility] [address] [place] [address] Niya Santiago, MARY [address] [place] [address] [facility] Start: 01-17-2024 Cervical cancer screen Cervical cancer screen [place], [place] Start: 01-17-2024 Screening for malignant neoplasm of cervix [facility] Start: 11-10-2023 End: 11-10-2023 ambulatory 11/10/2023 11:30 AM EDT [facility] Infusion [address] [place] [address] [facility] Comment on above: [facility] Start: 11-10-2023 End: 11-10-2023 Patient encounter procedure 11/10/2023 11:00 AM EDT Office Visit Rheumatology [address] [place] [address] Fariba Hill, [employer].DIRECTOR OF [employer] [address] [place] [address] Add on per Fariba Hill Rheumatology Comment on above: Add on marizol Hill Start: 10-29-2023 End: 10-29-2023 ambulatory 10/29/2023 7:30 AM EDT Infusion Center Infusion [address] [facility] [place] [address] [facility] Comment on above: [facility] Start: 10-24-2023 Influenza vaccination [facility] Start: 10-13-2023 End: 10-13-2023 ambulatory 10/13/2023 11:30 AM EDT Infusion [facility] Infusion [address] [facility] [place] [address] [facility] Comment on above: [facility] Start: 10-13-2023 End: 10-13-2023 Patient encounter procedure 10/13/2023 11:00 AM EDT Office Visit Rheumatology [address] [place] [address] Fariba Hill, [employer].DIRECTOR OF [employer] [address] [place] [address] Add on per Fariba Hill Rheumatology Comment on above: Add on per Fariba Hill Start: 10-01-2023 End: 10-01-2023 ambulatory 10/01/2023 1:30 PM EDT Infusion Center Infusion [address] [place] [address] [facility] Comment on above: [facility] Start: 09-15-2023 End: 09-15-2023 Patient encounter procedure 09/15/2023 1:00 PM EDT Office Visit Rheumatology [address] [place] [address] Fariba Hill, [employer].DIRECTOR OF [employer] [address] [place] [address] Add on per Fariba Hill Rheumatology Comment on above: Add on per Fariba Hill Start: 09-03-2023 End: 09-03-2023 ambulatory 09/03/2023 7:30 AM EDT Infusion Center Infusion [address] [place] [address] [facility] Comment on above: [facility] Start: 08-18-2023 End: 08-18-2023 ambulatory 08/18/2023 11:30 AM EDT Infusion Center Infusion [address] [place] [address] [facility] In[facility] Comment on above: [facility] Start: 07-21-2023 End: 07-21-2023 Patient encounter procedure 07/21/2023 1:00 PM EDT Office Visit Rheumatology [address] [facility] [place] [address] Fariba Hill, [employer].DIRECTOR OF [employer] [address] [place] [address] Add on per Fariba Hill Rheumatology Comment on above: Add on per Fariba Hill Start: 07-21-2023 End: 07-21-2023 ambulatory 07/21/2023 11:30 AM EDT Infusion Center Infusion [address] [facility] [place] [address] [facility] Infusion Comment on above: [facility] Start: 06-23-2023 End: 06-23-2023 ambulatory Infusion Comment on above: [facility] Needs to be at work at 2:00 Start: 06-23-2023 End: 06-23-2023 Patient encounter procedure 06/23/2023 10:30 AM EDT Office Visit Rheumatology [address] [facility] [place] [address] Fariba Hill, [employer].DIRECTOR OF [employer] [address] [facility] [place] [address] Add on per Fariba Hill Rheumatology Comment on above: Add on per Fariba Hill Start: 02-22-2023 Behavioral Health Screening Behavioral Health Screening [facility] Start: 02-22-2023 Depression Assessment Depression Assessment [facility] Start: 01-18-2023 End: 04-19-2023 Alanine aminotransferase [Enzymatic activity/volume] in Serum or Plasma ALT/SGPT Lab Routine Seropositive rheumatoid arthritis (HCC) Expected: 01/18/2023 (Approximate), Expires: 04/19/2023 [facility] Work Phone: Comment on above: Expected: 01/18/2023 (Approximate), Expi res: 04/19/2023 Start: 01-18-2023 End: 04-19-2023 Aspartate aminotransferase [Enzymatic activity/volume] in Serum or Plasma AST/SGOT BLD Lab Routine Seropositive rheumatoid arthritis (HCC) Expected: 01/18/2023 (Approximate), Expires: 04/19/2023 [facility] Work Phone: Comment on above: Expected: 01/18/2023 (Approximate), Expi res: 04/19/2023 Start: 01-18-2023 End: 04-19-2023 CBC W Auto Differential panel - Blood CBC + DIFF Lab Routine Seropositive rheumatoid arthritis (HCC) Expected: 01/18/2023 (Approximate), Expires: 04/19/2023 [facility] Work Phone: Comment on above: Expected: 01/18/2023 (Approximate), Expi res: 04/19/2023 Start: 01-18-2023 End: 04-19-2023 CREATININE BLD CREATININE BLD Lab Routine Seropositive rheumatoid arthritis (HCC) Expected: 01/18/2023 (Approximate), Expires: 04/19/2023 [facility] Work Phone: Comment on above: Expected: 01/18/2023 (Approximate), Expi res: 04/19/2023 Start: 12-12-2022 End: 02-11-2023 C reactive protein [Mass/volume] in Serum or Plasma C-REACTIVE PROTEIN (CRP) Lab Routine Seropositive rheumatoid arthritis (HCC) Expected: 12/12/2022 (Approximate), Expires: 02/11/2023 [facility] Work Phone: Comment on above: Expected: 12/12/2022 (Approximate), Expi res: 02/11/2023 Start: 12-12-2022 End: 02-11-2023 CBC W Auto Differential panel - Blood CBC + DIFF Lab Routine Seropositive rheumatoid arthritis (HCC) Expected: 12/12/2022 (Approximate), Expires: 02/11/2023 [facility] Work Phone: Comment on above: Expected: 12/12/2022 (Approximate), Expi res: 02/11/2023 Start: 12-12-2022 End: 02-11-2023 Comprehensive metabolic 2000 panel - Serum or Plasma COMP METABOLIC PANEL Lab Routine Seropositive rheumatoid arthritis (HCC) Expected: 12/12/2022 (Approximate), Expires: 02/11/2023 [facility] Work Phone: Comment on above: Expected: 12/12/2022 (Approximate), Expi res: 02/11/2023 Start: 12-12-2022 End: 02-11-2023 Erythrocyte sedimentation rate SED RATE WESTERGREN Lab Routine Seropositive rheumatoid arthritis (HCC) Expected: 12/12/2022 (Approximate), Expires: 02/11/2023 [facility] Work Phone: Comment on above: Expected: 12/12/2022 (Approximate), Expi res: 02/11/2023 Start: 12-11-2022 End: 03-12-2023 Alanine aminotransferase [Enzymatic activity/volume] in Serum or Plasma ALT/SGPT Lab Routine Seropositive rheumatoid arthritis (HCC) Expected: 12/11/2022, Expires: 03/12/2023 [facility] Work Phone: Comment on above: Expected: 12/11/2022, Expires: Start: 12-11-2022 End: 03-12-2023 Aspartate aminotransferase [Enzymatic activity/volume] in Serum or Plasma AST/SGOT BLD Lab Routine Seropositive rheumatoid arthritis (HCC) Expected: 12/11/2022, Expires: 03/12/2023 [facility] Work Phone: Comment on above: Expected: 12/11/2022, Expires: 4 Start: 10-23-2022 Influenza vaccination [facility] Start: 06-13-2022 End: 08-13-2022 25-hydroxyvitamin D3 [Mass/volume] in Serum or Plasma VITAMIN D 25 HYDROXY Lab Routine Vitamin D deficiency Expected: 06/13/2022 (Approximate), Expires: 08/13/2022 [facility] Work Phone: Comment on above: Expected: 06/13/2022 (Approximate), Expi res: 08/13/2022 Start: 06-12-2022 End: 08-12-2022 C reactive protein [Mass/volume] in Serum or Plasma C-REACTIVE PROTEIN (CRP) Lab Routine Seropositive rheumatoid arthritis (HCC) Expected: 06/12/2022 (Approximate), Expires: 08/12/2022 [facility] Work Phone: Comment on above: Expected: 06/12/2022 (Approximate), Expi res: 08/12/2022 Start: 06-12-2022 End: 08-12-2022 CBC W Auto Differential panel - Blood CBC + DIFF Lab Routine Seropositive rheumatoid arthritis (HCC) Expected: 06/12/2022 (Approximate), Expires: 08/12/2022 [facility] Work Phone: Comment on above: Expected: 06/12/2022 (Approximate), Expi res: 08/12/2022 Start: 06-12-2022 End: 08-12-2022 Comprehensive metabolic 2000 panel - Serum or Plasma COMP METABOLIC PANEL Lab Routine Seropositive rheumatoid arthritis (HCC) Expected: 06/12/2022 (Approximate), Expires: 08/12/2022 [facility] Work Phone: Comment on above: Expected: 06/12/2022 (Approximate), Expi res: 08/12/2022 Start: 06-12-2022 End: 08-12-2022 Erythrocyte sedimentation rate SED RATE WESTERGREN Lab Routine Seropositive rheumatoid arthritis (HCC) Expected: 06/12/2022 (Approximate), Expires: 08/12/2022 [facility] Work Phone: Comment on above: Expected: 06/12/2022 (Approximate), Expi res: 08/12/2022 Start: 04-14-2022 End: 06-14-2022 25-hydroxyvitamin D3 [Mass/volume] in Serum or Plasma [facility] Work Phone: Comment on above: Expected: 04/14/2022, Expires: Start: 02-22-2022 DEPRESSION ASSESSMENT DEPRESSION ASSESSMENT [facility] Start: 01-16-2022 Screening for malignant neoplasm of cervix Pap Smear [facility] Start: 11-12-2021 End: 01-12-2022 25-hydroxyvitamin D3 [Mass/volume] in Serum or Plasma VITAMIN D 25 HYDROXY Lab Routine Vitamin D deficiency Expected: 11/12/2021, Expires: 01/12/2022 [facility] Work Phone: Comment on above: Expected: 11/12/2021, Expires: Start: 11-12-2021 End: 01-12-2022 C reactive protein [Mass/volume] in Serum or Plasma C-REACTIVE PROTEIN (CRP) Lab Routine Seropositive rheumatoid arthritis (HCC) Expected: 11/12/2021, Expires: 01/12/2022 [facility] Work Phone: Comment on above: Expected: 11/12/2021, Expires: 2 Start: 11-12-2021 End: 01-12-2022 CBC W Auto Differential panel - Blood CBC + DIFF Lab Routine Seropositive rheumatoid arthritis (HCC) Expected: 11/12/2021, Expires: 01/12/2022 [facility] Work Phone: Comment on above: Expected: 11/12/2021, Expires: 2 Start: 11-12-2021 End: 01-12-2022 Comprehensive metabolic 2000 panel - Serum or Plasma COMP METABOLIC PANEL Lab Routine Seropositive rheumatoid arthritis (HCC) Expected: 11/12/2021, Expires: 01/12/2022 [facility] Work Phone: Comment on above: Expected: 11/12/2021, Expires: 2 Start: 11-12-2021 End: 01-12-2022 Erythrocyte sedimentation rate SED RATE WESTERGREN Lab Routine Seropositive rheumatoid arthritis (HCC) Expected: 11/12/2021, Expires: 01/12/2022 [facility] Work Phone: Comment on above: Expected: 11/12/2021, Expires: 2 Start: 10-23-2021 Influenza vaccination [facility] Start: 09-06-2021 End: 11-06-2021 25-hydroxyvitamin D3 [Mass/volume] in Serum or Plasma VITAMIN D 25 HYDROXY Lab Routine Vitamin D deficiency Expected: 09/06/2021 (Approximate), Expires: 11/06/2021 [facility] Work Phone: Comment on above: Expected: 09/06/2021 (Approximate), Expi res: 11/06/2021 Start: 09-06-2021 End: 11-06-2021 Comprehensive metabolic 2000 panel - Serum or Plasma COMP METABOLIC PANEL Lab Routine Seropositive rheumatoid arthritis (HCC) Expected: 09/06/2021 (Approximate), Expires: 11/06/2021 [facility] Work Phone: Comment on above: Expected: 09/06/2021 (Approximate), Expi res: 11/06/2021 Start: 08-16-2021 End: 10-16-2021 CBC W Auto Differential panel - Blood CBC + DIFF Lab Routine Seropositive rheumatoid arthritis (HCC) Expected: 08/16/2021 (Approximate), Expires: 10/16/2021 [facility] Work Phone: Comment on above: Expected: 08/16/2021 (Approximate), Expi res: 10/16/2021 Start: 08-16-2021 End: 10-16-2021 Comprehensive metabolic 2000 panel - Serum or Plasma COMP METABOLIC PANEL Lab Routine Seropositive rheumatoid arthritis (HCC) Expected: 08/16/2021 (Approximate), Expires: 10/16/2021 [facility] Work Phone: Comment on above: Expected: 08/16/2021 (Approximate), Expi res: 10/16/2021 Start: 02-22-2021 DEPRESSION ASSESSMENT DEPRESSION ASSESSMENT [facility] Start: 10-23-2020 Influenza vaccination Flu vaccine (#1) [employer] Work Phone: Start: 12-04-2019 Creatinine measurement Creatinine monitoring [facility] [place], [place] Start: 12-04-2019 Creatinine monitoring Creatinine monitoring [facility] [place] , [place] Start: 12-04-2019 Potassium monitoring Potassium monitoring [facility] [place], [place] Start: 11-19-2019 Creatinine monitoring Creatinine monitoring [facility] [place] , [place] Start: 11-19-2019 Potassium monitoring Potassium monitoring [facility] [place], [place] Start: 10-24-2019 Influenza vaccination [facility], [place] Start: 08-29-2019 End: 08-29-2019 Visit 08/29/2019 Visit Obstetrics and Gynecology Tosha Viera, [employer] - CNM [address] [place] [address] [phone] [facility] Start: 07-26-2019 End: 07-26-2019 Visit 07/26/2019 Visit Obstetrics and Gynecology Tosha Viera, [place] - CNShara [address] [place] [address] [phone] [facility] Start: 07-13-2019 End: 07-13-2019 Ancillary Procedure [facility] Start: 05-18-2019 End: 05-18-2019 Ancillary Procedure [facility] Start: 05-12-2019 End: 05-11-2020 VL DUP UPPER EXTREMITY VENOUS LEFT VL DUP UPPER EXTREMITY VENOUS LEFT Imaging Routine Superficial thrombophlebitis of left upper extremity Expected: 05/12/2019, Expires: [facility]2020 [facility]: Expected: 05/12/2019, Expires: Start: 05-08-2019 End: 05-08-2019 Routine [facility] 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 Start: 05-02-2019 End: 05-02-2019 Appointment 05/02/2019 Appointment Infusion Therapy [facility] (MOB) Start: 04-24-2019 End: 04-24-2019 Routine 04/24/2019 Routine Obstetrics and Gynecology Tosha Viera APRN - JOSE [address] [place] [address] [phone] [facility]ST[facility]ECOLOG[facility] Start: 02-28-2019 End: 02-28-2019 Routine [facility] 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 Start: 02-13-2019 End: 02-13-2019 Routine 02/13/2019 Routine Obstetrics and Gynecology Tosha Viera APRN - JOSE [address] [place] [id number] [facility] 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 Start: 01-16-2019 End: 01-16-2019 Routine 01/16/2019 Routine Obstetrics and Gynecology Tosha Viera APRN - JOSE [address] [place] [id number] [facility] 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 Start: 12-30-2018 Adult depression screening assessment DEPRESSION SCREENING [facility] Start: 12-19-2018 End: 12-19-2018 Initial 12/19/2018 Initial Obstetrics and Gynecology [facility] 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 Start: 10-23-2018 Influenza vaccination Flu vaccine (#1) [place], [place] Start: 02-16-2014 HPV TESTING HPV TESTING [facility] Start: 02-16-2014 Screening for malignant neoplasm of cervix HPV Testing [facility] Start: 02-16-2005 Cervical cancer screen Cervical cancer screen [place], [place] Start: 02-16-2005 PAP TESTING PAP TESTING [facility] Start: 02-16-2005 Screening for malignant neoplasm of cervix Pap Testing [facility] Start: 02-16-2003 DTaP/Tdap/Td vaccine (1 - Tdap) DTaP/Tdap/Td vaccine (1 - Tdap) [place], [place] Start: 02-16-2003 Hepatitis B Vaccine (1 of 3 - 19+ 3-dose series) Hepatitis B Vaccine (1 of 3 - 19+ 3-dose series) [facility] Start: 02-16-2003 SHINGRIX VACCINE (1 of 2) SHINGRIX VACCINE (1 of 2) [facility] Start: 02-16-2003 Urine microalbumin profile DTAP,TDAP,TD (1 - Tdap) [facility] Start: 02-16-2002 Anxiety Screening Anxiety Screening [facility] Start: 02-16-2002 Depression Screening Depression Screening [facility] Start: 02-16-1997 Varicella Vaccine (1 of 2 - 13+ 2-dose series) Varicella Vaccine (1 of 2 - 13+ 2-dose series) [place], [place] Start: 1996 COVID-19 Vaccine (1) COVID-19 Vaccine (1) [facility] Work Phone: Start: 02-16-1995 DTaP/Tdap/Td vaccine (1 - Tdap) DTaP/Tdap/Td vaccine (1 - Tdap) [place], [place] Start: 02-16-1995 Screening for malignant neoplasm of cervix Cervical Cancer Screening [facility] Start: 02-16-1990 PNEUMOCOCCAL (1 - PCV) PNEUMOCOCCAL (1 - PCV) [facility] Start: 02-16-1990 Pneumococcal 0-64 years Vaccine (1 of 1 - PPSV23) Pneumococcal 0-64 years Vaccine (1 of 1 - PPSV23) [place], [place] Start: 02-16-1990 Pneumococcal 0-64 years Vaccine (1 of 2 - PPSV23) Pneumococcal 0-64 years Vaccine (1 of 2 - PPSV23) [facility] Work Phone: Start: 02-16-1990 Pneumococcal vaccination [facility] Start: 02-16-1989 COVID-19 VACCINE (#1) COVID-19 VACCINE (#1) [facility] Start: 02-16-1985 Varicella Vaccine (1 of 2 - 2-dose childhood series) Varicella Vaccine (1 of 2 - 2-dose childhood series) [place], [place] Start: 1984 COVID-19 VACCINE (#1) COVID-19 VACCINE (#1) [facility] Start: 1984 HEPATITIS B (1 of 3 - 3-dose series) HEPATITIS B (1 of 3 - 3-dose series) [facility] Start: 1984 Hepatitis B Vaccine (1 of 3 - 3-dose series) Hepatitis B Vaccine (1 of 3 - 3-dose series) [facility] 25-hydroxyvitamin D3 [Mass/volume] in Serum or Plasma VITAMIN D 25 HYDROXY Lab Routine Vitamin D deficiency 08/06/2021 1:42 PM EDT [facility] Work Phone: 25-hydroxyvitamin D3 [Mass/volume] in Serum or Plasma VITAMIN D 25 HYDROXY Lab Routine Vitamin D deficiency 09/03/2021 1:27 PM EDT [facility] Work Phone: 25-hydroxyvitamin D3 [Mass/volume] in Serum or Plasma VITAMIN D 25 HYDROXY Lab Routine Vitamin D deficiency 11/13/2021 1:41 PM EDT [facility] Work Phone: 25-hydroxyvitamin D3 [Mass/volume] in Serum or Plasma VITAMIN D 25 HYDROXY Lab Routine Vitamin D deficiency 06/23/2022 12:40 PM EDT [facility] Work Phone: End: 12-19-2018 Bacteria identified Cx Nom (U) Urine Culture Microbiology Routine Encounter for supervision of normal in first trimester, unspecified 1 Occurrences starting 12/19/2018 until 12/19/2018 [facility] BRIAN Comment on above: 1 Occurrences starting 12/19/2018 until 12/19/2018 Bacteria identified Cx Nom (U) Urine Culture Microbiology Routine Encounter for supervision of normal in first trimester, unspecified 12/19/2018 6:27 PM EDT [facility] BRIAN C reactive protein [Mass/volume] in Serum or Plasma C-REACTIVE PROTEIN (CRP) Lab Routine Seropositive rheumatoid arthritis ([facility]) 11/13/2021 1:41 PM EDT [facility] Work Phone: C reactive protein [Mass/volume] in Serum or Plasma C-REACTIVE PROTEIN (CRP) Lab Routine Seropositive rheumatoid arthritis ([facility]) 06/23/2022 12:40 PM EDT [facility] Work Phone: End: 12-19-2018 C.trachomatis N.gonorrhoeae DNA, Urine C.trachomatis N.gonorrhoeae DNA, Urine Microbiology Routine Encounter for supervision of normal in first trimester, unspecified 1 Occurrences starting 12/19/2018 until 12/19/2018 [facility] BRIAN Comment on above: 1 Occurrences starting 12/19/2018 until 12/19/2018 C.trachomatis N.gonorrhoeae DNA, Urine C.trachomatis N.gonorrhoeae DNA, Urine Microbiology Routine Encounter for supervision of normal in first trimester, unspecified 12/19/2018 6:28 PM EDT [facility] BRIAN CBC W Auto Different ial panel - Blood CBC + DIFF Lab Routine Seropositive rheumatoid arthritis ([facility]) 08/06/2021 1:42 PM EDT [facility] Work Phone: CBC W Auto Different ial panel - Blood CBC + DIFF Lab Routine Seropositive rheumatoid arthritis ([facility]) 11/13/2021 1:41 PM EDT [facility] Work Phone: Comprehensive metabo lic 2000 panel - Serum or Plasma COMP METABOLIC PANEL Lab Routine Seropositive rheumatoid arthritis ([facility]) 08/06/2021 1:42 PM [facility] Work Phone: Comprehensive metabo lic 2000 panel - Serum or Plasma COMP METABOLIC PANEL Lab Routine Seropositive rheumatoid arthritis ([facility]) 09/03/2021 1:27 PM EDT [facility] Work Phone: Comprehensive metabo lic 2000 panel - Serum or Plasma COMP METABOLIC PANEL Lab Routine Seropositive rheumatoid arthritis ([facility]) [facility] metabo lic 2000 panel - Serum or Plasma COMP METABOLIC PANEL Lab Routine Seropositive rheumatoid arthritis ([facility]) [facility] End: 03-15-2020 COVID-19, PCR COVID-19, PCR Lab Routine One Time for 1 Occurrences starting 03/15/2020 until 03/15/2020 [place], [place] Comment on above: One Time for 1 Occurrences starting 02/23 until 03/15/2020 COVID-19, PCR COVID-19, PCR La b STAT 03/15/2020 4:30 PM [place] End: 07-06-2019 Culture, Strep B Screen, Vaginal/Rectal Culture, Strep B Screen, Vaginal/Rectal Microbiology Routine 38 weeks gestation of 1 Occurrences starting 07/06/2019 until 07/06/2019 [place] Comment on above: 1 Occurrences starting 07/06/2019 until 07/06/2019 Culture, Strep B Scr een, Vaginal/Rectal Culture, Strep B Screen, Vaginal/Rectal Microbiology Routine 38 weeks gestation of 07/06/2019 4:09 PM T [place] End: 12-19-2018 Cystic Fibrosis Gene Test Cystic Fibrosis Gene Test Lab Routine Encounter for supervision of normal in first trimester, unspecified Screening for cystic fibrosis 1 Occurrences starting 12/19/2018 until 12/19/2018 [place] Comment on above: 1 Occurrences starting 12/19/2018 until 12/19/2018 End: 01-16-2019 Cytopathology procedure, preparation of smear, genital source PAP SMEAR Lab Routine Screening for cervical cancer 1 Occurrences starting 01/16/2019 until 01/16/2019 [place] Comment on above: 1 Occurrences starting 01/16/2019 until 01/16/2019 Erythrocyte sediment ation rate SED RATE WESTERGREN Lab Routine Seropositive rheumatoid arthritis ([facility]) 11/13/2021 1:41 PM [facility] Work Phone: End: 04-04-2019 FLU A/B, MOLECULAR FLU A/B, MOLECULAR Microbiology Routine Once for 1 Occurrences starting 04/04/2019 until 04/04/2019 [employer] Phone: Comment on above: Once for 1 Occurrences starting 04/04/19 20 until 04/04/2019 FLU A/B, MOLECULAR FLU A/B, MOLE CULAR Microbiology Routine 04/04/2019 11:47 AM EST [employer] Phone: End: 12-19-2018 Hepatitis C Antibody Hepatitis C Antibody Lab Routine Encounter for supervision of normal in first trimester, unspecified 1 Occurrences starting 12/19/2018 until 12/19/2018 [facility] 1 Occurrences starting 12/19/2018 until 12/19/2018 Hepatitis C Antibody Hepatitis C Antibody Lab Routine Encounter for supervision of normal in first trimester, unspecified 12/19/2018 6:24 PM [facility] End: 12-19-2018 HIV Screen HIV Screen Lab Routine Encounter for supervision of normal in first trimester, unspecified 1 Occurrences starting 12/19/2018 until 12/19/2018 [facility] above: 1 Occurrences starting 12/19/2018 until 12/19/2018 HIV Screen HIV Screen Lab R outine Encounter for supervision of normal in first trimester, unspecified [facility] Lab Routine Encounter for supervision of normal in first trimester, unspecified 12/19/2018 6:28 PM [facility] End: 12-19-2018 Testing for Aneuploidy Testing for Aneuploidy Lab Routine Encounter for supervision of normal in first trimester, unspecified 1 Occurrences starting 12/19/2018 until 12/19/2018 [facility] Comment on above: 1 Occurrences starting 12/19/2018 until 12/19/2018 Testing for Aneuploidy Testing for Aneuploidy Lab Routine Encounter for supervision of normal in first trimester, unspecified 12/19/2018 [facility] ANTEPARTUM RHOGAM ANTEPAR DAJA Blood Bank Routine Encounter for supervision of other normal in third trimester 29 weeks gestation of 05/01/2019 5:42 PM [facility]T [facility] INJECTION ONLY RHOGAM INJ ECTION ONLY Blood Bank STAT 12/03/2018 5:56 PM EDT [facility] End: 07-12-2019 RHOGAM RHOGAM Blood Bank Routine One Time for 1 Occurrences starting 07/12/2019 until 07/12/2019 [facility] Comment on above: One Time for 1 Occurrences starting 06/23 until 07/12/2019 End: 05-27-2024 US Extremity - left US EXTREMITY MASS/FLUID COLLECTION LEFT Radiology Routine Seropositive rheumatoid arthritis (HCC) Localized superficial swelling, mass, or lump 1 Occurrences starting 04/28/2023 until 05/27/2024 [facility] Work Phone: Comment on above: 1 Occurrences starting 04/28/2023 until 05/27/2024 US GALLBLADDER RUQ US GALLBLADDE R RUQ Imaging Routine Right upper quadrant abdominal pain 2019 11:13 AM [employer] [facility] [employer] Work Phone: End: 05-27-2024 US Upper extremity - left US ELBOW LEFT Radiology Routine Localized superficial swelling, mass, or lump Seropositive rheumatoid arthritis (HCC) 1 Occurrences starting 04/28/2023 until 05/27/2024 [facility] [email or web address] Work Phone: Comment on above: 1 Occurrences starting 04/28/2023 until 05/27/2024 XR Foot - bilateral AP and Lateral and oblique XR FOOT GENERAL 3V AP/LAT/OBL BILATERAL Radiology Routine Seropositive rheumatoid arthritis (HCC) 04/14/2022 2:47 PM [employer] [facility] [email or web address] Work Phone: End: 03-26-2023 XR FOOT GENERAL 3V AP/LAT/OBL BILATERAL XR FOOT GENERAL 3V AP/LAT/OBL BILATERAL Radiology Routine Seropositive rheumatoid arthritis (HCC) 1 Occurrences starting 02/24/2022 until 03/26/2023 [facility] [email or web address] Work Phone: Comment on above: 1 Occurrences starting 02/24/2022 until 03/26/2023 End: 03-30-2023 XR FOOT GENERAL 3V AP/LAT/OBL BILATERAL XR FOOT GENERAL 3V AP/LAT/OBL BILATERAL Radiology Routine Seropositive rheumatoid arthritis (HCC) 1 Occurrences starting 02/28/2022 until 03/30/2023 [facility] Work Phone: Comment on above: 1 Occurrences starting 02/28/2022 until 03/30/2023 End: 11-21-2023 XR FOOT GENERAL 3V AP/LAT/OBL BILATERAL XR FOOT GENERAL 3V AP/LAT/OBL BILATERAL Radiology Routine Seropositive rheumatoid arthritis (HCC) 1 Occurrences starting 10/22/2022 until 11/21/2023 [facility] Work Phone: Comment on above: 1 Occurrences starting 10/22/2022 until 11/21/2023 [facility] Immunizations Immunization Date Immunization Notes Care Provider Devi biggs 06-02-2021 diphtheria, tetanus toxoids and pertussis vaccine Fariba Hill APRN.CNP Work Phone: [facility] 07-12-2019 diphtheria, tetanus toxoids and acellular pertussis vaccine, unspecified formulation [place], [place] 07-12-2019 measles, mumps and rubella virus vaccine [place], [place] 12-03-2018 RHO(D) immune leoncio in - [place], [place] Payers Date Payer Category Payer Medicaid [id number] 2020 Medicaid [employer] [id number] 2020-Present [phone] [address] [place] [address] Medicaid [id number] 2019 Medicaid [id number] 2018 Unknown [employer] xxxxxxxxxxx 2018-Present [phone] [address] [place] [address] xxxxxxxxxxx [id number] 2018 Unknown [id number] 1984 Unknown [id number] 1984 Unknown [id number] 1984 Unknown [id number] 1984 Unknown [id number] 1984 Unknown [id number] 1984 Unknown [id number] 1984 Unknown [id number] 1984 Unknown [id number] 1984 Unknown [id number] 1984 Unknown [id number] [id number] 1984 Unknown [id number] 1984 Unknown [id number] 1959 Unknown [id number] Social History Date Type Detail Facility Start: 12-03-2018 End: 01-25-2023 Tobacco smoking status MOIS Current every day smoker [place], [place] Start: 04-22-2012 History of tobacco use Cigarette Smo ker [place] Start: 12-03-2018 End: 07-22-2023 Alcohol intake Not Currently [facility] Start: 10-24-2018 [facility] [place] Start: 1985 Sex Assigned At Not on file M [place] Start: 12-19-2018 End: 07-22-2023 Cigarettes smoked current (pack per day) - Reported [facility] Start: 12-19-2018 End: 01-28-2019 [facility] Start: 06-23-2021 End: 07-03-2021 Exposure to SARS-CoV-2 (event) Unable to assess [place] Start: 07-11-2019 Tobacco Comment patient declin es counseling [place] Start: 07-12-2019 End: 01-25-2023 Tobacco use and exposure Never used [place] Start: 11-02-2021 End: 11-12-2021 Exposure to SARS-CoV-2 (event) Not sure [facility] Start: 04-22-2012 End: 04-14-2022 Tobacco smoking status MOIS Light tobacco smoker [facility] Start: 03-14-2021 End: 04-14-2022 Alcohol intake Current non-drinker of alcohol (finding) [facility] Start: 04-22-2017 End: 04-14-2022 Tobacco Comment social smoker not everyday [facility] Adult Depression Screening Assessment 1 [facility] Start: 10-21-2023 Alcoholic beverage intake Lifetime non-drinker (finding) [facility] Clinical Notes 09-15-2020 to 08-17-2023 Telephone Encounter - Devi Wagner - 08/17/2023 10:56 AM EDTTelephone Encounter - Devi Wagner - 08/17/2023 10:56 AM EDTTelephone Encounter - Devi Wagner - 08/16/2023 4:03 PM EDTInstructions Note Date & Type Note Facility 08-17-2023 Telephone encounter Note Spoke with patient Rescheduled due to illness- pt requests Fridays only Scheduled a few out also Devi Wagner August 17, 2023 10:57 AM [facility] 08-17-2023 Miscellaneous Notes Spoke with patient Rescheduled due to illness- pt requests Fridays only Scheduled a few out also Devi Wagner August 17, 2023 10:57 AM LM on VM informing patient that infusion has been cancelled due to being on antibiotics. Need to reschedule the 08/17 infusion Devi Wagner August 16, 2023 4:04 PM Pt scheduled for infusion 08/18/23. Noted pt in ED 08/14/23. Started on antibiotics for ear infection. Please call patient to reschedule infusion 2 weeks after completion of antibiotics. documented in this encounter [facility] 08-16-2023 Telephone encounter Note LM on VM informing patient that infusion has been cancelled due to being on antibiotics. Need to reschedule the 08/17 infusion Devi Wagner August 16, 2023 4:04 PM [facility] 08-16-2023 Telephone encounter Note Pt scheduled for infusion 08/18/23. Noted pt in ED 08/14/23. Started on antibiotics for ear infection. Please call patient to reschedule infusion 2 weeks after completion of antibiotics. [facility] 07-20-2023 Telephone encounter Note Spoke with pt, confirmed she will be in for her infusion tomorrow. Denies any issues at this time. [facility] 07-20-2023 Miscellaneous Notes Spoke with pt, confirmed she will be in for her infusion tomorrow. Denies any issues at this time. documented in this encounter [facility] 06-28-2023 Note HNO ID: [id number] Author: ?, ?, ? Service: ? Author Type: ? Type: Progress Notes Filed: 06/28/2023 10:10 Note Text: Called and LMOM for patient to call the office back to get reschedule for her appointment with Fariba Hill and then her Infusion right after. Please warm transfer to [facility]. [facility] 06-28-2023 History of Present illness Narrative Called and LMOM for patient to call the office back to get reschedule for her appointment with Fariba Hill and then her Infusion right after. Please warm transfer to [facility]. documented in this encounter [facility] 06-25-2023 Telephone encounter Note Called and LMOM for patient to call the office back so we can get her rescheduled from her appointment and Infusion on 06/23/2023 that she cancel. Please warm transfer to [facility] 06-25-2023 Miscellaneous Notes Called and LMOM for patient to call the office back so we can get her rescheduled from her appointment and Infusion on 06/23/2023 that she cancel. Please warm transfer to [facility] documented in this encounter [facility] 06-22-2023 Telephone encounter Note Called patient to get her rescheduled and she is going to go ahead and keep her appointment. Patient will be here for her appointment with Fariba and then get her infusion. [facility] 06-22-2023 Miscellaneous Notes Called patient to get [...] confirm scheduled infusion. documented in this encounter [facility] 06-22-2023 Telephone encounter Note Spoke with patient on phone. Patient states she needs to reschedule tomorrows infusion do to starting a new job and working tomorrow. Will have scheduling reach out and reschedule infusion. [facility] 06-22-2023 Telephone encounter Note LMOM for patient to call back and confirm scheduled infusion. [facility] 05-28-2023 Miscellaneous Notes Call placed to patient to inquire how she is feeling [facility]. She states she is feeling better and has had no further issues. James Hill CNP notified. documented in this encounter [facility] 05-26-2023 Miscellaneous Notes Addended by: SILVIA COOPER on: 05/26/2023 03:06 PM Modules accepted: Orders documented in this encounter [facility] 05-26-2023 Instructions Silvia Cooper APRN.ANTHONY - 05/26/2023 2:00 PM EDT Albuterol as needed- inhaler sent If needed, only if needed, Prednisone 40 mg once daily x 5 days with food Consider Zyrtec daily until Mothers day or longer Follow up as needed documented in this encounter [facility] 05-26-2023 Note HNO ID: [id number] Author: SILVIA COOPER APRN.ANTHONY Service: ? Author Type: Nurse Practitioner Type: Progress Notes Filed: 05/26/2023 14:15 Note Text: This note was created using NoteWriter. Subjective Any Ludwig is a 38 year old female. This 38 year old female present sot [facility] with expiratory wheeze, was in [...] - PREDNISONE 20 MG TABLET Silvia Cooper APRN.[facility] 05-26-2023 History of Present illness Narrative This note was created using NoteWriter. Subjective Any Ludwig is a 38 year old female. This 38 year old female [facility], was in infusions for [...] - PREDNISONE 20 MG TABLET Silvia Cooper APRN.DIRECTOR OF CLOUD SERVICES documented in this encounter [facility] 05-26-2023 History of Present illness Narrative FOLLOW UP VISIT-in person PCP: Tino Blake MD [address] [place] [address] Ms. Ludwig is a 38 year old [...] is planning to follow up with local abrasives sales representative closer to home. Until she has her [...] over her lifetime. We are assisting with director social consult, also to help with adherence to health care and patient's social support, especially that now she is caring for her infant, as a single mother. infliximab adverse reaction [...] which included preparing to see the patient, [id number] patient care, completing clinical documentation, obtaining and/or [...] the care of your patient. Fariba Hill APRN.DIRECTOR OF CLOUD SERVICES CC: Tino Blake MD documented in this encounter [facility] 05-26-2023 Note HNO ID: [id number] Author: FARIBA HILL APRN.CNP Service: ? Author Type: Nurse Practitioner Type: Progress Notes Filed: 06/07/2023 08:14 Note Text: FOLLOW UP VISIT-in person PCP: Tino Blake MD [address] [place] [address] Ms. Ludwig is a 38 year old [...] is planning to follow up with local abrasives sales representative closer to home. Until she has her [...] over her lifetime. We are assisting with director social consult, also to help with adherence to health care and patient's social support, especially kristie (more content not included)... [facility] 05-26-2023 Note HNO ID: [id number] Author: KORIN PUGA RN Service: ? Author [...] No New rash or open sores? No [facility] 05-26-2023 History of Present illness Narrative Since [...] open sores? No documented in this encounter [facility] 05-25-2023 Miscellaneous Notes Spoke with patient; confirmed infusion tomorrow. Denies any issues. LMOM for patient to call back and confirm patient will be in tomorrow for scheduled infusion and has not been ill recently or on ATB. documented in this encounter [facility] 05-18-2023 Miscellaneous Notes Called patient on May [...] Slot held: N/A documented in this encounter [facility] 05-14-2023 Miscellaneous Notes Patient has been identified [...] to: self Call patient at: at home [phone] (home) [phone] (cell) Payor: [employer] MEDICAID / Plan: [employer] MEDICAID [facility] / Product Type: Medicaid / Elder DIANA Clayton documented in this encounter [facility] 04-28-2023 Miscellaneous Notes Corrected please schedule Could you please check the Ultrasound of the Left Elbow Thank you Yessy documented in this encounter [facility] 04-28-2023 Note HNO ID: [id number] Author: YESSY GONZALEZ, VALORIE Service: ? Author Type: Registered Nurse Type: [...] infusion, derm appt, and L elbow ultrasound. [facility] 04-28-2023 History of Present illness Narrative Since [...] L elbow ultrasound. documented in this encounter [facility] 04-28-2023 Note HNO ID: [id number] Author: FARIBA HILL APRN.DIRECTOR OF CLOUD SERVICES Service: ? Author Type: Nurse Practitioner Type: Progress Notes Filed: 05/24/2023 17:01 Note Text: FOLLOW UP VISIT-in person PCP: Tino Blake MD [address] [place] [address] Ms. Ludwig is a 38 year old [...] is planning to follow up with local abrasives sales representative closer to home. Until she has her [...] over her lifetime. We are assisting with director social consult, also to help with adherence to health care and patient's social support, especially that now she is caring for her , as a single mother. infliximab adverse reaction Med options Rituxan would increase risk for infection and decrease response to vaccines- will defer from this choice at this time Ore (more content not included)... [facility] 04-28-2023 History of Present illness Narrative FOLLOW UP VISIT-in person PCP: Tino Blake MD [address] [place] [address] Ms. Ludwig is a 38 year old [...] is planning to follow up with local abrasives sales representative closer to home. Until she has her [...] over her lifetime. We are assisting with director social consult, also to help with adherence to health care and patient's social support, especially that now she is caring for her infant, as a single mother. infliximab adverse reaction [...] which included preparing to see the patient, [id number] patient care, completing clinical documentation, obtaining and/or reviewing separately obtained history, performing a medically appropriate examination, counseling and educating the patient/family/caregiver, and ordering medications, tests, or procedures. Fariba Hill APRN.DIRECTOR OF CLOUD SERVICES Recommendations to share with referring physician/Primary care [...] Tino Blake MD documented in this encounter [facility] 04-21-2023 Miscellaneous Notes Please change patient schedule going forward with a ov each infusion with me If patients normal time to come is is 1130 Please use my 1100 slot 60min for every infusion with infusion directly following LMOM for patient to call the office back Please warm transfer to [facility] April appointment has been scheduled as requested. Please let our infusion hair baler(s) know how you would like to proceed for all future infusion visits as requested below by Dr. Leos. Dr. Leos does not have any available openings to accommodate Ms. Ludwig through 2023. Please advise. Thank you, Bailey ORTIZ April 21, 2023 10:25 AM Please add [...] you kindly, fa documented in this encounter [facility] 03-31-2023 Note HNO ID: [id number] Author: TRINA WALKER RN Service: ? Author [...] No New rash or open sores? No [facility] 03-31-2023 History of Present illness Narrative Since [...] open sores? No [facility] [facility] [place] [facility] Miscellaneous Notes Spoke with patient, she will be in for infusion. Denies infections Called and left message with return number to verify patient will be here tomorrow and is infection free and not on antibiotics. documented in this encounter [facility] [place] 03-01-2023 Note HNO ID: [id number] Author: TRINA WALKER RN Service: ? Author [...] No New rash or open sores? No [facility] 02-18-2023 Miscellaneous Notes Patient has been rescheduled as requested Pt did not show for her infusion today. Please call her to reschedule. LMOM for patient to call back regarding infusion for tomorrow LMOM for patient to confirm patient is coming for infusion tomorrow. VM left for patient to call office to confirm infusion. documented in this encounter [facility] [place] 02-01-2023 Miscellaneous Notes LMOM for patient to call us back to reschedule her infusion . Please warm transfer to [facility] ----- Message from Irais Ochoa sent at 02/01/2023 3:13 PM EST ----- Regarding: infusion reschedule Contact: Patient name: Any Ludwig Who is calling: Patient Call back number: [phone] [facility] ordering provider: Dr Mccann Type of infusion: Actemra Patient just needs to reschedule 02/02/23 appt documented in this encounter [facility] [place] 02-01-2023 Miscellaneous Notes Spoke with patient, she will be in for infusion, denies any signs or symptoms of illness LMOM for patient to call back regarding infusion for tomorrow documented in this encounter [facility] [place] 01-20-2023 Miscellaneous Notes Please increase actemra 8mg/kg every 4 weeks documented in this encounter [facility] [place] 01-20-2023 Instructions Fariba Hill APRN.CNP - 01/20/2023 9:26 AM EST -PLEASE NOTE THAT WE REVIEW ALL YOUR TEST RESULTS AT YOUR NEXT FOLLOW UP VISIT WITH YOU. IF ANY ABNORMAL LAB REQUIRES SOONER ATTENTION, WE WILL CONTACT YOU. -If you have signed up on SET, we will release your test results through SET. Prednisone 20mg ( 4 tablets ) for [...] that features the Whole Plant Based diet, Cold [place] over knives (see video online and visit website). Another movie that was recently released is: Eating You Alive (you can find it at [employer]) Dr. Lisa Armando is a [facility] physician who is an expert in Whole Plant based diet. His website is INVOLTA. His research work highlighted the benefits of Whole plant based diet in reversing and preventing heart disease. Consider reading Rip Raulanayanancy: The Engine 2 Diet, cookbook Mrs. Armando (his ) has a cookbook with many recipes on whole plant based food: The Prevent and Reverse Heart Disease cookbook. Dr. Stephen Martinez, has a website and free keisha to help get started on a whole plant based diet, at [employer] and the free keisha is 21-Day Vegan Kickstart with meals and recipes to follow. He has multiple free videos and YouTube, for example: https://youInspire Health.be/owvKjrvE6w8 , https://youEditliteu.be/OoURMedcy7s Dr. Gordy Farrell has proven starch diet whole plant based and benefit to his Rheumatoid Arthritis patients, his website: drBybanl.[employer] Dr. Maira Bertrand is a renowned agriculture scientist, who has studied and researched the benefits of the Whole plant based diet. He has also researched the adverse effects of animal proteins on health. He presents many of his research findings in his book The [place] study. Dr. Maurilio Xie has completed many research trials proving the reversal of diseases with healthy lifestyle and the Whole Plant based diet. Dr. Maurilio Xie website is: mignonautoGraph[employer] UnDo It a new book by Dr. Maurilio Thomas has dedicated a website and additional time to reviewing all food related articles and research and presents them in his power point presentation and on his website at: nutritionfacts.org Dr. Thomas has multiple free videos and YouTube, for example https://youtu.be/aSgNkhgVtks and https://youtu.be/lXXXygDRyBU. Also, you could find additional information by reading or watching online and YouTube such as: Fire Assistant RAIMUNDO, Cooking With Plants, The Vegan Corner (recipes from an Uzbek Fire Assistant), and visiting the provided websites for additional information on the whole plant based benefit and cooking recipes. The Whole Foods Plant Based Cooking Show Athletes such as Kelvin Kan, Antonio Guillermo, Shaheen Mooney YouTube Guilt Free Shaheen Mooney YouTube Guilt Free TV and Hua with Merlin Diamonds. Goodbye Lupus by Kandi Leonard M.D If [...] - Gentle Yoga Anyone Can Do Anywhere www.[employer]/yo ga landon chi, stretching, cardio, gradual strengthening, [...] or a higher dose. Raw: Garlic, Cilantro, [place] nuts, Pumpkin seeds, [place] seeds and Flax seed powder have been reported to help with certain metal detoxification such as mercury. [place]-3 plant based sources: rachana seeds, flax seed powder, flax milk, walnuts. Turmeric can be found natural, used as the spice powder or the root with your food. This is also available as a capsule. Sweet cherries (raw cleaned or frozen) and Turmeric have anti-inflammatory benefit Start reviewing the Whole Plant Based Diet, by watching Cold Spring over Knives movie and then review website. There are many other resources and educational information on the Whole plant based diet on the Internet and documentaries. There are other resources for wellness that you can also benefit from, such as the [facility] [place] Wellness website, [facility].org and includes the Mediterranean heart healthy diet and yoga and meditation. Please avoid all dairy products. You could use non-dairy milk such as Flax milk, Cashew milk, [place] milk, Rice milk, Oat milk or Hemp [...] Foundation) http://www.osteo.org/osteolinks.as p National Institutes of Health: 5-218-284-BONE The Calcium Information [place]: Non-Dairy, Plant based Milk, contain 1 glass = 450 mg of calcium Exampled include Flax Milk, [place] Milk, Cashew Milk Examples of Food Sources of Calcium from NIH Food Milligrams (mg) per serving Percent DV* Soymilk, calcium-fortified, 8 ounces 299 30 Jessamine juice, calcium-fortified, 6 ounces 261 26 Tofu, firm, made with calcium sulfate, cup* 253 25 Tofu, soft, made with calcium sulfate, cup* 138 14 Pbhef-xx-dhn cereal, calcium-fortified, 1 cup 100-1,000 10-100 Turnip greens, fresh, boiled, cup 99 10 Kale, raw, chopped, 1 cup 100 10 Kale, fresh, cooked, 1 cup 94 9 Solomon Islander cabbage, bok gilbert, raw, shredded, 1 cup 74 7 Bread, white, 1 slice 73 7 Tortilla, corn, gkpfw-ay-bifn/mcgee, one 6 diameter 46 5 Tortilla, flour, nkhsr-aw-bgxf/mcgee, one 6 diameter 32 3 Bread, whole-wheat, [...] You could acces this information online at: http://ods..nih.gov/factsheets/C alcium-HealthProfessional/ Vitamin D: Vitamin D3= cholecalciferol, available over the counter. Dose recommended 800 to 1000 iu daily with a meal; Certain patients required 5562-5159 iu daily and in patients deficient in [...] bones. Studies show approximately 50% of [place] men and women are vitamin D deficient [...] hritis/osteo/info.htm http://ods.od.nih.gov/factsheets/v itamind.asp National Institutes of Health: 8-436-621-BONE [facility] Information [place]: Thank you for choosing [facility] [place] for your healthcare. Sincerely, Fariba Hill APRN.ANTHONY documented in this encounter [facility] [place] 01-20-2023 Note HNO ID: [id number] Author: Fariba Hill APRN.ANTHONY Service: ? Author Type: Nurse Practitioner Type: Progress Notes Filed: 01/20/2023 10:13 AM Note Text: FOLLOW UP VISIT-in person PCP: Tino Blake MD [address] [place] [address] Ms. 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 Until she has her [...] multiple unfortunate social (more content not included)... [facility] 01-20-2023 History of Present illness Narrative FOLLOW UP VISIT-in person PCP: Tino Blake MD [address] [place] [address] Ms. 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 Until she has her [...] over her lifetime. We are assisting with director social consult, also to help with adherence to health care and patient's social support, especially that now she is caring for her infant, as a single mother. infliximab adverse reaction [...] which included preparing to see the patient, zqbd-qt-vwrs patient care, completing clinical documentation, obtaining and/or reviewing separately obtained history, performing a medically appropriate examination, counseling and educating the patient/family/caregiver, and ordering medications, tests, or procedures. Fariba Hill APRN.DIRECTOR OF CLOUD SERVICES Recommendations to share with referring physician/Primary care [...] Tino Blake MD documented in this encounter [facility] [place] 12-31-2022 Note HNO ID: [id number] Author: Prema Mckinney RN Service: ? Author [...] No New rash or open sores? No [facility] 12-31-2022 History of Present illness Narrative Since [...] open sores? No documented in this encounter [facility] [place] 12-30-2022 Miscellaneous Notes Patient calling in to office. Verified by name and . She states that she is infection free and not currently taking any antibiotics. She denies any hospitalizations or changes in health since her last infusion. She will be in tomorrow as scheduled for infusion. VM left for pt to call office to confirm infusion tomorrow. documented in this encounter [facility] [place] 12-18-2022 Miscellaneous Notes Left message for patient to call office regarding below. sent mychart Left message for patient to call office regarding below. Please call patient Normal liver enzymes Will recheck in 1 month May restart arava 10mg daily Received outside lab results from [facility] AST and ALT results completed on 12/14 ALT: 33 AST: 19 placed on Fariba's desk for review documented in this encounter [facility] [place] 12-14-2022 Miscellaneous Notes Lab orders faxed with confirmation to below number. [facility] calling about orders. Patient did not give correct fax number. Please re-fax to [phone]. Patient is still waiting at lab. Please advise. DIANA [place] (Patient Operations Support Team) Please note: Please do not re-route phone encounters back to this agent, please send to appropriate office pool. Agent works in operations center and cannot complete patient specific tasks. Fariba from [facility] called to follow up on request -- lab orders faxed to [phone] as requested with confirmation Any Ludwig is calling Fariba Hill APRN.DIRECTOR OF CLOUD SERVICES today to request Lab Orders be faxed to [facility]. She believes their fax number is [phone]. She states we can call them to verify at [phone]. Please notify pt once orders have been faxed. Patient has been identified by name and birthdate. Duration of symptoms: N/A Person calling: self Call patient at: on cell [phone] (home) [phone] (cell) Was an appointment scheduled: No Closing statement: Results or non-symptom based questions: Thank you for calling [facility] [place], your call will be returned within the next business day. Komal Nunn documented in this encounter [facility] [place] 12-11-2022 Miscellaneous Notes Spoke with patient High [...] Abs Lymph 1.00 - 4.00 k/uL 3.92 [place]% % 8.[address] [place] <0.87 k/uL 0.65 Eosin% % 2.3 Abs [...] 20 mm/hr 20 documented in this encounter [facility] [place] 11-25-2022 Miscellaneous Notes LMOM for patient to call the office if she is able to move from Fri to Th. Please warm transfer to [facility] documented in this encounter [facility] [place] 11-13-2022 Miscellaneous Notes Left VM that steroid has been sent to pharmacy. Left message for patient to call office regarding below. Please call patient Steriod taper sent to the pharmacy please update patient Patient calling to ask questions re: infusion that was supposed to be for 11/12 but was cancelled due to no approval yet from insurance Please call patient back at [phone] Devi Wagner November 11, 2022 12:49 PM documented in this encounter [facility] [place] 10-22-2022 Note HNO ID: [id number] Author: Na Arevalo RN Service: ? Author [...] on new medication given prior to leaving. [facility] 10-22-2022 History of Present illness Narrative Since [...] prior to leaving. documented in this encounter [facility] [place] 10-22-2022 Instructions Fariba Hill APRN.DIRECTOR OF CLOUD SERVICES - 10/22/2022 9:35 AM EDT -PLEASE NOTE THAT WE REVIEW ALL YOUR TEST RESULTS AT YOUR NEXT FOLLOW UP VISIT WITH YOU. IF ANY ABNORMAL LAB REQUIRES SOONER ATTENTION, WE WILL CONTACT YOU. -If you have signed up on Moobiahart, we will release your test results through SET. Plan to start actemra in 2 weeks [...] that features the Whole Plant Based diet, Cold Spring over knives (see video online and visit website). Another movie that was recently released is: Eating You Alive (you can find it at [employer]) Dr. Lisa Armando is a [facility] physician who is an expert in Whole Plant based diet. His website is INVOLTA. His research work highlighted the benefits of [...] on a whole plant based diet, at [employer] and the free keisha is 21-Day Vegan Kickstart with meals and recipes to follow. He has multiple free videos and YouTube, for example: https://youEditliteu.be/cpxDrcoS5i5 , https://youEditliteu.be/MlDESvdzj6e Dr. Gordy Farrell has proven starch diet whole plant based and benefit to his Rheumatoid Arthritis patients, his website: [employer] Dr. Maira Bertrand is a renowned agriculture scientist, who has studied and researched the benefits of the Whole plant based diet. He has also researched the adverse effects of animal proteins on health. He presents many of his research findings in his book The [place] study. Dr. Maurilio Xie has completed many research trials proving the reversal of diseases with healthy lifestyle and the Whole Plant based diet. Dr. Maurilio Xie website is: [employer] UnDo It a new book by Dr. Maurilio Thomas has dedicated a website and additional time to reviewing all food related articles and research and presents them in his power point presentation and on his website at: nutritionfacts.org Dr. Thomas has multiple free videos and YouTube, for example https://youEditliteu.be/aSgNkhgVtks and https://youEditliteu.be/lXXXygDRyBU. Also, you could find additional information by reading or watching online and YouTube such as: Fire Assistant AJ, Cooking With Plants, The Vegan Corner (recipes from an Uzbek Fire Assistant), and visiting the provided websites for additional information on the whole plant based benefit and cooking recipes. The Whole Foods Plant Based Cooking Show Athletes such as Kelvin Kan, Antonio Guillermo, Shaheen Mooney YouTube Guilt Free Shaheen Mooney YouTube Guilt Free TV and Hua with Merlin Diamonds. Goodbye Lupus by Kandi Leonard M.D If [...] - Gentle Yoga Anyone Can Do Anywhere www.northboroughCommerce Resources.[employer]/[place] landon chi, stretching, cardio, gradual strengthening, [...] or a higher dose. Raw: Garlic, Cilantro, [place] nuts, Pumpkin seeds, [place] seeds and Flax seed powder have been reported to help with certain metal detoxification such as mercury. [place]-3 plant based sources: rachana seeds, flax seed powder, flax milk, walnuts. Turmeric can be found natural, used as the spice powder or the root with your food. This is also available as a capsule. Sweet cherries (raw cleaned or frozen) and Turmeric have anti-inflammatory benefit Start reviewing the Whole Plant Based Diet, by watching [place] over [employer] movie and then review website. There are many other resources and educational information on the Whole plant based diet on the Internet and documentaries. There are other resources for wellness that you can also benefit from, such as the [facility] Wellness website, [facility].org and includes the Mediterranean heart healthy diet and yoga and meditation. Please avoid all dairy products. You could use non-dairy milk such as Flax milk, Cashew milk, [place] milk, Rice milk, Oat milk or Hemp [...] resources: www.nof.org (National Osteoporosis Foundation) http://www.osteo.org/osteolinks.as p Espino Institutes of [facility]: 9-143-239-BONE The Calcium Information Center: Non-Dairy, Plant based Milk, contain 1 glass = 450 mg of calcium Exampled include Flax Milk, [place] Milk, Cashew Milk Examples of Food Sources of Calcium from [facility] Food Milligrams (mg) per serving Percent DV* Soymilk, calcium-fortified, 8 ounces 299 30 Jessamine juice, calcium-fortified, 6 ounces 261 26 Tofu, firm, made with calcium sulfate, cup* 253 25 Tofu, soft, made with calcium sulfate, cup* 138 14 Fcnnf-sk-see cereal, calcium-fortified, 1 cup 100-1,000 10-100 Turnip greens, fresh, boiled, cup 99 10 Kale, raw, chopped, 1 cup 100 10 Kale, fresh, cooked, 1 cup 94 9 [place] Islander cabbage, bok gilbert, raw, shredded, 1 cup 74 7 Bread, white, 1 slice 73 7 Tortilla, corn, dwyaz-he-cmdl/mcgee, one 6 diameter 46 5 Tortilla, flour, zqqpx-va-kzrn/mcgee, one 6 diameter 32 3 Bread, whole-wheat, [...] could acces this information online at: http://ods.od.nih.gov/factsheets/C [facility]/ Vitamin D: Vitamin D3= cholecalciferol, available over the counter. Dose recommended 800 to 1000 iu daily with a meal; Certain patients required 1454-3035 iu daily and in patients deficient in [...] bones. Studies show approximately 50% of [place] men and women are vitamin D deficient [...] hritis/osteo/info.htm http://ods.od.nih.gov/factsheets/v itamind.asp National Institutes of Health: 5-831-522-BONE [facility] Calcium Information [place]: Thank you for choosing [facility] [place] for your healthcare. Sincerely, Fariba Hill APRN.DIRECTOR OF CLOUD SERVICES documented in this encounter [facility] [place] 10-22-2022 History of Present illness Narrative FOLLOW UP VISIT-in person PCP: Tino Blake MD [address] [place] [address] Ms. 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 Until she has her [...] over her lifetime. We are assisting with director social consult, also to help with adherence to [...] which included preparing to see the patient, zzcj-wm-eoyh patient care, completing clinical documentation, obtaining and/or [...] Tino Blake MD documented in this encounter [facility] [place] 10-22-2022 Note HNO ID: [id number] Author: Fariba Hill APRN.CNP Service: ? Author Type: Nurse Practitioner Type: Progress Notes Filed: 11/18/2022 7:59 AM Note Text: FOLLOW UP VISIT-in person PCP: Tino Blake MD [address] [place] [address] [place] [address] Ms. Ludwig is a 37 year old [...] good today Some fatigue Went to ER 6/23 and 09/13 for toe swelling Completed xray [...] is planning to follow up with local abrasives sales representative closer to home. Until she has her [...] be risk f (more content not included)... [facility] 10-21-2022 Miscellaneous Notes Spoke with pt; confirmed infusion appt 10/22/22 and appt with Fariba. Denies s/sx of infection or antibiotics or other issues at this time. documented in this encounter [facility] [place] 09-17-2022 Note HNO ID: [id number] Author: Prema Mckinney RN Service: ? Author [...] No New rash or open sores? No [facility] 09-17-2022 History of Present illness Narrative Since [...] open sores? No documented in this encounter [facility] [place] 09-16-2022 Miscellaneous Notes Spoke with patient, she will be in for infusion Patient returning call, but PSS told that the nurses are all busy. Patient advised that a message would be placed for the nurses to call the patient back. VM left for pt to call office for below message. documented in this encounter [facility] [place] 09-09-2022 Miscellaneous Notes Tried calling patient 3 times and not able to leave a voice mail. If patient calls then we can offer her a sooner appointment. May offer patient sooner infusion appt since approved (09/02/2022) Time Cycle, Day Action User 10:23 AM Preauthorization Status Changed New Value: Authorized Previous Value: Waiting for Response Rodrigue (Pharmacy Clinical Practice Consultant)Laverne Changing plan to avsola 7.5mg /kg every 8 weeks Please expedite approval Patient is on for infusion tomorrow In process of updating plan Images from the original note were not included. === PHARMACY TEAM ==== AUTHORIZATION DENIED Denial Reason: Denial upheld on appeal Payor: Haritha Medicaid Date of Service: 09.01.22 Received Denial Via: Portal [employer] Culinary Assistant Name / Call Ref #: na / na Drug name(s) & HCPCS code(s): Avsola Dx Code: M05.0JWV-[id number] rheumatoid arthritis Comment: Next step is a [...] notes with original submission. Appeal ID is [id number] ETO is 15 days from today Onbased appeal acknowledgement letter. Letter created please submit thanks === PHARMACY TEAM ==== Case Note/ Misc Comment Has appeal been submitted? If not, I can submit an appeal letter if provided via [employer] portal for Reference# [id number]. I spoke with peer to peer Will need to appeal [phone] Please ask for expedited appeal Avsola 5mg/kg [...] Payer: Haritha COVINGTON DOS: 09.01.22 Drug Name(s) & HCPCS/CPTCode(s): Avsola Q5121 Dx code(s) submitted: M05.9 Seropositive rheumatoid arthritis Provider: JUAN DANIEL LEOS Peer to Peer/Appeal reason: Timeframe to complete: grace Date sent to provider: 08.05.22 Courtesy page sent (PRN): No documented in this encounter [facility] [place] 08-31-2022 Miscellaneous Notes Patient has been rescheduled [...] at this time. documented in this encounter [facility] 06-22-2022 Miscellaneous Notes Call placed to patient to confirm she will be here for tomorrow's infusion and has had no recent infection with no answer. LMOM to call back or send my chart. documented in this encounter [facility] 04-28-2022 Instructions Fariba Hill APRN.DIRECTOR OF CLOUD SERVICES - 04/28/2022 1:04 PM EST -PLEASE NOTE THAT WE REVIEW ALL YOUR TEST RESULTS AT YOUR NEXT FOLLOW UP VISIT WITH YOU. IF ANY ABNORMAL LAB REQUIRES SOONER ATTENTION, WE WILL CONTACT YOU. -If you have signed up on SET, we will release your test results through SET. Increase inflxiamab every 5 weeks 5mg/kg arava [...] that features the Whole Plant Based diet, Cold Spring over knives (see video online and visit website). Another movie that was recently released is: Eating You Alive (you can find it at [employer]) Dr. Lisa Armando is a [facility] physician who is an expert in Whole Plant based diet. His website is INVOLTA. His research work highlighted the benefits of [...] on a whole plant based diet, at [employer] and the free keisha is 21-Day Vegan Kichicostart with meals and recipes to follow. He has multiple free videos and YouTube, for example: https://youEditliteu.be/[email or web address] , https://youEditliteu.[email or web address] Dr. Gordy Farrell has proven starch diet whole plant based and benefit to his Rheumatoid Arthritis patients, his website: drAvangate [employer] Dr. Maira Bertrand is a renowned agriculture scientist, who has studied and researched the benefits of the Whole plant based diet. He has also researched the adverse effects of animal proteins on health. He presents many of his research findings in his book The [place] study. Dr. Maurilio Xie has completed many research trials proving the reversal of diseases with healthy lifestyle and the Whole Plant based diet. Dr. Maurilio Xie website is: [employer] UnDo It a new book by Dr. Maurilio Thomas has dedicated a website and additional time to reviewing all food related articles and research and presents them in his power point presentation and on his website at: nutritionfacts.org Dr. Thomas has multiple free videos and YouTube, for example https://youEditliteu.be/aSgNkhgVtks and [email or web address]://youInspire Health.[email or web address]. Also, you could find additional information by reading or watching online and YouTube such as: Fire Assistant AJ, Cooking With Plants, The Vegan Corner (recipes from an Uzbek Fire Assistant), and visiting the provided websites for additional information on the whole plant based benefit and cooking recipes. The Whole Foods Plant Based Cooking Show Athletes such as Kelvin Kan, Antonio Guillermo, Shaheen Mooney YouTube Guilt Free Shaheen Mooney YouTube Guilt Free TV and Hua with Merlin Diamonds. Goodbye Lupus by Kandi Leonard M.D If [...] - Gentle Yoga Anyone Can Do Anywhere www.[employer]/yo ga landon chi, stretching, cardio, gradual strengthening, [...] or a higher dose. Raw: Garlic, Cilantro, [place] nuts, Pumpkin seeds, [place] seeds and Flax seed powder have been reported to help with certain metal detoxification such as mercury. [place]-3 plant based sources: rachana seeds, flax seed powder, flax milk, walnuts. Turmeric can be found natural, used as the spice powder or the root with your food. This is also available as a capsule. Sweet cherries (raw cleaned or frozen) and Turmeric have anti-inflammatory benefit Start reviewing the Whole Plant Based Diet, by watching [place] Spring over [employer] movie and then review website. There are many other resources and educational information on the Whole plant based diet on the Internet and documentaries. There are other resources for wellness that you can also benefit from, such as the [facility] Wellness website, [facility]org and includes the Mediterranean heart healthy diet and yoga and meditation. Please avoid all dairy products. You could use non-dairy milk such as Flax milk, Cashew milk, [place] milk, Rice milk, Oat milk or Hemp [...] Osteoporosis Foundation) http://www.osteo.org/osteolinks.as p National Institutes of [facility]: 7-768-734-BONE [facility] Calcium Information [place]: Non-Dairy, Plant based Milk, contain 1 glass = 450 mg of calcium Exampled include Flax Milk, [place] Milk, Cashew Milk Examples of Food Sources of Calcium from [facility] Food Milligrams (mg) per serving Percent DV* Soymilk, calcium-fortified, 8 ounces 299 30 Jessamine juice, calcium-fortified, 6 ounces 261 26 Tofu, firm, made with calcium sulfate, cup* 253 25 Tofu, soft, made with calcium sulfate, cup* 138 14 Luyao-hk-fkf cereal, calcium-fortified, 1 cup 100-1,000 10-100 Turnip greens, fresh, boiled, cup 99 10 Kale, raw, chopped, 1 cup 100 10 Kale, fresh, cooked, 1 cup 94 9 Solomon Islander cabbage, bok gilbert, raw, shredded, 1 cup 74 7 Bread, white, 1 slice 73 7 Tortilla, corn, kmaqv-tu-qahu/mcgee, one 6 diameter 46 5 Tortilla, flour, culxz-pc-atyn/mcgee, one 6 diameter 32 3 Bread, whole-wheat, [...] daily with a meal; Certain patients required 6300-5284 iu daily and in patients deficient in [...] bones. Studies show approximately 50% of [place] men and women are vitamin D deficient [...] hritis/osteo/info.htm http://ods.od.nih.gov/factsheets/v itamind.asp National Institutes of Health: 9-222-960-BONE [facility] Calcium Information [place]: Thank you for choosing [facility] for your healthcare. Sincerely, Fariba Hill APRN.DIRECTOR OF CLOUD SERVICES documented in this encounter [facility] 04-28-2022 History of Present illness Narrative FOLLOW UP VISIT-telephone PCP: Tino Blake MD [address] [place] [address] Ms. 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 Until she has her [...] over her lifetime. We are assisting with director social consult, also to help with adherence to [...] only. Patient agrees the this plan PLAN/RECOMMENDATIONS: [facility] on 04/28/22 predniSONE (DELTASONE) 5 mg [...] the care of your patient. Fariba Hill APRN.DIRECTOR OF CLOUD SERVICES CC: Tino Blake MD documented in this encounter [facility] 04-16-2022 Miscellaneous Notes sent via Myreks rx resent to local pharmacy Pharmacy Information Pharmacy Address Telephone [facility]/pharmacy #[id number] [address] [place] [address] Unable to reach pt, no ans, vm full will send via Myreks -attempted to call pt and VM full -try again or send Souqalmalt Please call patient -Please advise patient of [...] a meal. Thank you kindly, Fariba Hill APRN.ANTHONY documented in this encounter [facility] 04-14-2022 History of Present illness Narrative Since [...] open sores? No documented in this encounter [facility] 04-14-2022 Instructions Fariba Hill APRN.CNP - 04/14/2022 10:44 AM EST -PLEASE NOTE THAT WE REVIEW ALL YOUR TEST RESULTS AT YOUR NEXT FOLLOW UP VISIT WITH YOU. IF ANY ABNORMAL LAB REQUIRES SOONER ATTENTION, WE WILL CONTACT YOU. -If you have signed up on [place] [employer], we will release your test results through SET. Increase inflxiamab every 5 weeks 5mg/kg arava [...] that features the Whole Plant Based diet, Cold Spring over knives (see video online and visit website). Another movie that was recently released is: Eating You Alive (you can find it at [employer]) Dr. Lisa Armando is a [facility] physician who is an expert in Whole Plant based diet. His website is INVOLTA. His research work highlighted the benefits of [...] on a whole plant based diet, at pcrNativeAD.org and the free keisha is 21-Day Vegan Kichicostallyn with meals and recipes to follow. He has multiple free videos and YouTube, for example: https://youInspire Health.sigmacare/[email or web address] , [email or web address]://youInspire Health.sigmacare/[email or web address] Dr. Gordy Farrell has proven starch diet whole plant based and benefit to his Rheumatoid Arthritis patients, his website: val.[employer] Dr. Maira Bertrand is a renowned agriculture scientist, who has studied and researched the benefits of the Whole plant based diet. He has also researched the adverse effects of animal proteins on health. He presents many of his research findings in his book The [place] study. Dr. Maurilio Xie has completed many research trials proving the reversal of diseases with healthy lifestyle and the Whole Plant based diet. Dr. Maurilio Xie website is: [employer] UnDo It a new book by Dr. Maurilio Thomas has dedicated a website and additional time to reviewing all food related articles and research and presents them in his power point presentation and on his website at: nutritionfacts.org Dr. Thomas has multiple free videos and YouTube, for example https://Wordy.be/aSgNkhgVtks and [email or web address]. Also, you could find additional information by reading or watching online and YouTube such as: Fire Assistant AJ, Cooking With Plants, The Vegan Corner (recipes from an Uzbek Fire Assistant), and visiting the provided websites for additional information on the whole plant based benefit and cooking recipes. The Whole Foods Plant Based Cooking Show Athletes such as Kelvin Kan, Antonio Guillermo, Shaheen Mooney YouTube Guilt Free Shaheen Mooney YouTube Guilt Free TV and Hua with Merlin Diamonds. Goodbye Lupus by Kandi Leonard M.D If [...] - Gentle Yoga Anyone Can Do Anywhere www.[facility]ved[facility].[employer]/[place]on chi, stretching, cardio, gradual strengthening, [...] or a higher dose. Raw: Garlic, Cilantro, [place] nuts, Pumpkin seeds, [place] seeds and Flax seed powder have been reported to help with certain metal detoxification such as mercury. [place]-3 plant based sources: rachana seeds, flax seed powder, flax milk, walnuts. Turmeric can be found natural, used as the spice powder or the root with your food. This is also available as a capsule. Sweet cherries (raw cleaned or frozen) and Turmeric have anti-inflammatory benefit Start reviewing the Whole Plant Based Diet, by watching [place] over [employer] movie and then review website. There are many other resources and educational information on the Whole plant based diet on the Internet and documentaries. There are other resources for wellness that you can also benefit from, such as the [facility] Wellness website, [facility]org and includes the Mediterranean heart healthy diet and yoga and meditation. Please avoid all dairy products. You could use non-dairy milk such as Flax milk, Cashew milk, [place] milk, Rice milk, Oat milk or Hemp [...] Foundation) http://www.osteo.org/osteolinks.as p National Institutes of Health: 1-087-386-BONE The Calcium Information [place]: Non-Dairy, Plant based Milk, contain 1 glass = 450 mg of calcium Exampled include Flax Milk, [place] Milk, Cashew Milk Examples of Food Sources of Calcium from [facility] Food Milligrams (mg) per serving Percent DV* Soymilk, calcium-fortified, 8 ounces 299 30 Jessamine juice, calcium-fortified, 6 ounces 261 26 Tofu, firm, made with calcium sulfate, cup* 253 25 Tofu, soft, made with calcium sulfate, cup* 138 14 Wzxdl-ck-afp cereal, calcium-fortified, 1 cup 100-1,000 10-100 Turnip greens, fresh, boiled, cup 99 10 Kale, raw, chopped, 1 cup 100 10 Kale, fresh, cooked, 1 cup 94 9 [place] Islander cabbage, [employer] Entertainment[employer] gilbert, raw, shredded, 1 cup 74 7 Bread, white, 1 slice 73 7 Tortilla, corn, ajomr-ql-jcvo/mcgee, one 6 diameter 46 5 Tortilla, flour, yfmkg-fy-rmxl/mcgee, one 6 diameter 32 3 Bread, whole-wheat, [...] daily with a meal; Certain patients required 0833-1780 iu daily and in patients deficient in [...] bones. Studies show approximately 50% of [place] men and women are vitamin D deficient [...] available from: www.nof.org (the national osteoporosis foundation) http://www.[facility].org/art hritis/osteo/info.htm http://ods.od.nih.gov/factsheets/v itamind.asp National Institutes of Health: 5-528-306-BONE The Calcium Information Center: Thank you for choosing [facility] for your healthcare. Sincerely, Fariba Hill APRN.DIRECTOR OF CLOUD SERVICES documented in this encounter [facility] 04-14-2022 History of Present illness Narrative FOLLOW UP VISIT-in person PCP: Tino Blake MD [address] [place] [address] Ms. Ludwig is a 37 year old patient here today for follow up of RA Interim History: Swelling- right wrist 1 week Had overdone it cleaning Foot pain Fell asleep in bathtub 4 hours Never had xrays Left MTP swelling - improving some Pain- 8/10 Does not take anything Am stiffness Here [...] is planning to follow up with local abrasives sales representative closer to home. Until she has her [...] over her lifetime. We are assisting with director social consult, also to help with adherence to [...] which included preparing to see the patient, srfs-jh-fexj patient care, completing clinical documentation, obtaining and/or [...] Tino Blake MD documented in this encounter [facility] 03-09-2022 Miscellaneous Notes Most recent Rheumatology visit: 01/05/2022 (with Fariba Hill) Recent Office Visits - This Specialty 01/05/2022 Seropositive rheumatoid arthritis (HCC) Rheumatology Fariba Hill APRN.DIRECTOR OF CLOUD SERVICES 10/29/2021 Seropositive rheumatoid arthritis (HCC) Rheumatology Fariba Hill APRN.ANTHONY 07/23/2021 Seropositive rheumatoid arthritis (HCC) Rheumatology Fariba Hill APRN.CNP Upcoming Rheumatology Appointments - Next 365 Days Visit Type Date Time Department [facility] MEDICAL 04/14/2022 10:30 AM [facility] CBC: CBC Latest Ref Rng [...] R Padilla MA documented in this encounter [facility] 03-02-2022 Miscellaneous Notes mailed as requested Ordered [...] Abs Lymph 1.00 - 4.00 k/uL 3.03 [place]% % 8.[address] [place] <0.87 k/uL 0.49 Eosin% % 4.6 Abs [...] mm/hr 29 (H) documented in this encounter [facility] 02-24-2022 History of Present illness Narrative Pt at end of infusion c/o swelling and bump on her left foot. She was asking about surgical intervention, or perhaps block, or draining. Fariba Hill DIRECTOR OF CLOUD SERVICES was consulted. Orders were placed for pt [...] open sores? No documented in this encounter [facility] 02-20-2022 Miscellaneous Notes I spoke to Any and she will be coming in for her infusion on 02-24-22. She denies having been on any recent antibiotics. documented in this encounter [facility] 02-03-2022 History of Present illness Narrative POPULATION HEALTH NAVIGATION OUTREACH Action/FYI Left vm Pt identified by name and : NO Outreach Outcome/Action Unable to reach patient: Left message Moobiahart message sent Did you use a PCP flex slot to schedule this appointment? No Reason for Outreach Care Gap or Scheduling/Wellness visits Payer: Payor: [employer] MEDICAID / Plan: [employer] MEDICAID / Product Type: Medicaid / Care [...] 2022 3:21 PM documented in this encounter [facility] 01-26-2022 Miscellaneous Notes Last time 10/29/2021 I [...] complete a P2P/Appeal? Need decision by 01/27/2022 Thanks, Keanu Freeman documented in this encounter [facility] 01-06-2022 Miscellaneous Notes Smoking Cessation Navigation Outcome of contact: Left Message Comments: A voicemail has been left for this patient regarding Tobacco Cessation support options. If this patient has any further questions they can email us at or call us at [phone]. [employer]/Smoking Cessation Navigator: Zaina Schmitz, [facility] ED documented in this encounter [facility] 01-06-2022 Miscellaneous Notes Can you please change plan to reflect Infliximab next time increase dose to 5mg/ kg- to decrease disease activity thanks documented in this encounter [facility] 01-05-2022 History of Present illness Narrative Since [...] open sores? No documented in this encounter [facility] 01-05-2022 Instructions Fariba Hill APRN.CNP - 01/05/2022 10:34 AM EST -PLEASE NOTE THAT WE REVIEW ALL YOUR TEST RESULTS AT YOUR NEXT FOLLOW UP VISIT WITH YOU. IF ANY ABNORMAL LAB REQUIRES SOONER ATTENTION, WE WILL CONTACT YOU. -If you have signed up on SET, we will release your test results through SET. Increase inflxiamab every 7 weeks 5mg/kg Start [...] that features the Whole Plant Based diet, Cold Spring over knives (see video online and visit website). Another movie that was recently released is: Eating You Alive (you can find it at [employer]) Dr. Lisa Armando is a [facility] physician who is an expert in Whole Plant based diet. His website is INVOLTA. His research work highlighted the benefits of [...] on a whole plant based diet, at [facility].[employer] and the free keisha is 21-Day Vemamadou Meza with meals and recipes to follow. He has multiple free videos and YouTube, for example: https://[email or web address]/[email or web address] , [email or web address] Dr. Gordy Farrell has proven starch diet whole plant based and benefit to his Rheumatoid Arthritis patients, his website: val.[employer] Dr. Maira Bertrand is a renowned agriculture scientist, who has studied and researched the benefits of the Whole plant based diet. He has also researched the adverse effects of animal proteins on health. He presents many of his research findings in his book The [place] study. Dr. Maurilio Xie has completed many research trials proving the reversal of diseases with healthy lifestyle and the Whole Plant based diet. Dr. Maurilio Xie website is: [employer] UnDo It a new book by Dr. Maurilio Thomas has dedicated a website and additional time to reviewing all food related articles and research and presents them in his power point presentation and on his website at: nutritionfacts.org Dr. Thomas has multiple free videos and YouTube, for example https://youInspire Health.be/aSgNkhgVtks and [email or web address]://youInspire Health.[email or web address]. Also, you could find additional information by reading or watching online and YouTube such as: Fire Assistant AJ, Cooking With Plants, The Vegan Corner (recipes from an U[place]bek Fire Assistant), and visiting the provided websites for additional information on the whole plant based benefit and cooking recipes. The Whole Foods Plant Based Cooking Show Athletes such as Kelvin Kan, Antonio Guillermo, Shaheen Mooney YouTube Guilt Free Shaheen Mooney YouTube Guilt Free TV and Hua with Merlin Diamonds. Goodbye Lupus by Kandi Leonard M.D If [...] - Gentle Yoga Anyone Can Do Anywhere www.[facility]ved[facility].[employer]/[place] chi, stretching, cardio, gradual strengthening, [...] or a higher dose. Raw: Garlic, Cilantro, [place] nuts, Pumpkin seeds, [place] seeds and Flax seed powder have been reported to help with certain metal detoxification such as mercury. [place]-3 plant based sources: rachana seeds, flax seed powder, flax milk, walnuts. Turmeric can be found natural, used as the spice powder or the root with your food. This is also available as a capsule. Sweet cherries (raw cleaned or frozen) and Turmeric have anti-inflammatory benefit Start reviewing the Whole Plant Based Diet, by watching [place] over [employer] movie and then review website. There are many other resources and educational information on the Whole plant based diet on the Internet and documentaries. There are other resources for wellness that you can also benefit from, such as the [facility] Wellness website, [facility]org and includes the Mediterranean heart healthy diet and yoga and meditation. Please avoid all dairy products. You could use non-dairy milk such as Flax milk, Cashew milk, [place] milk, Rice milk, Oat milk or Hemp [...] Foundation) http://www.osteo.org/osteolinks.as p National Institutes of Health: 4-289-017-BONE The Calcium Information Center: Non-Dairy, Plant based Milk, contain 1 glass = 450 mg of calcium Exampled include Flax Milk, [place] Milk, Cashew Milk Examples of Food Sources of Calcium from [facility] Food Milligrams (mg) per serving Percent DV* Soymilk, calcium-fortified, 8 ounces 299 30 Jessamine juice, calcium-fortified, 6 ounces 261 26 Tofu, firm, made with calcium sulfate, cup* 253 25 Tofu, soft, made with calcium sulfate, cup* 138 14 Dcvqz-kx-vuh cereal, calcium-fortified, 1 cup 100-1,000 10-100 Turnip greens, fresh, boiled, cup 99 10 Kale, raw, chopped, 1 cup 100 10 Kale, fresh, cooked, 1 cup 94 9 [place] cabbage, bok gilbert, raw, shredded, 1 cup 74 7 Bread, white, 1 slice 73 7 Tortilla, corn, murna-nw-ifsy/mcgee, one 6 diameter 46 5 Tortilla, flour, fuvcv-ku-pbqo/mcgee, one 6 diameter 32 3 Bread, whole-wheat, [...] daily with a meal; Certain patients required 8238-2877 iu daily and in patients deficient in [...] bones. Studies show approximately 50% of [place] men and women are vitamin D deficient [...] hritis/osteo/info.htm http://ods.od.nih.gov/factsheets/v itamind.asp National Institutes of Health: 0-102-567-BONE [facility] Calcium Information [place]: Thank you for choosing [facility] for your healthcare. Sincerely, Fariba Hill APRN.ANTHONY documented in this encounter [facility] 01-05-2022 History of Present illness Narrative FOLLOW UP VISIT- virtual PCP: Tino Blake MD [address] [place] [address] Ms. Ludwig is a 36 year old [...] is planning to follow up with local abrasives sales representative closer to home. Until she has her [...] over her lifetime. We are assisting with director social consult, also to help with adherence to [...] which included preparing to see the patient, oqjn-jh-icqy patient care, completing clinical documentation, obtaining and/or [...] Tino Blake MD documented in this encounter [facility] 01-02-2022 Miscellaneous Notes I LMOM for Any [...] Your infusion team documented in this encounter [facility] 12-22-2021 Miscellaneous Notes Called patient to offer to reschedule appointments to 01/01, left message with . Attempted to call pt, no answer. Sent her a Souqalmalt message. Please call pt to reschedule infusion and appt with Fariba Hill (due 01/01/22). Can cancel appts on 01/05/22 if patient agrees to change to 01/01. She is scheduled 12/16/21 which is too soon. Last infusion 11/13/21, ordered every 7 weeks. Can leave appt with Fariba for tomorrow until patient calls back to acknowledge that her appts are cancelled. documented in this encounter [facility] 12-15-2021 Miscellaneous Notes I called and left [...] a brief explanation. documented in this encounter [facility] 11-13-2021 History of Present illness Narrative Since [...] open sores? No documented in this encounter [facility] 11-11-2021 Miscellaneous Notes I LMOM for pt [...] or open sores? documented in this encounter [facility] 10-29-2021 Instructions Fariba Hill APRN.DIRECTOR OF CLOUD SERVICES - 10/29/2021 1:51 PM EDT -PLEASE NOTE THAT WE REVIEW ALL YOUR TEST RESULTS AT YOUR NEXT FOLLOW UP VISIT WITH YOU. IF ANY ABNORMAL LAB REQUIRES SOONER ATTENTION, WE WILL CONTACT YOU. -If you have signed up on SET, we will release your test results through SET. Increase inflxiamab every 7 weeks 5mg/kg Start [...] that features the Whole Plant Based diet, [place] over knives (see video online and visit website). Another movie that was recently released is: Eating You Alive (you can find it at [employer]) Dr. Lisa Armando is a [facility] physician who is an expert in Whole Plant based diet. His website is INVOLTA. His research work highlighted the benefits of [...] on a whole plant based diet, at [employer] and the free keisha is 21-Day Credportgan KiMobilligyart with meals and recipes to follow. He has multiple free videos and YouTube, for example: [email or web address]://[email or web address].sigmacare/[email or web address] , https://youInspire Health.sigmacare/[email or web address] Dr. Gordy Farrell has proven starch diet whole plant based and benefit to his Rheumatoid Arthritis patients, his website: Bybandima.[employer] Dr. Maira Bertrand is a renowned agriculture scientist, who has studied and researched the benefits of the Whole plant based diet. He has also researched the adverse effects of animal proteins on health. He presents many of his research findings in his book The [place] study. Dr. Maurilio Xie has completed many research trials proving the reversal of diseases with healthy lifestyle and the Whole Plant based diet. Dr. Maurilio Xie website is: mignonautoGraph.[employer] UnDo It a new book by Dr. Maurilio Thomas has dedicated a website and additional time to reviewing all food related articles and research and presents them in his power point presentation and on his website at: nutritionfacts.org Dr. Thomas has multiple free videos and YouTube, for example https://youInspire Health.be/aSgNkhgVtks and [email or web address]://youInspire Health.be/[email or web address]. Also, you could find additional information by reading or watching online and YouTube such as: Fire Assistant AJ, Cooking With Plants, The Vegan Corner (recipes from an Uzbek Fire Assistant), and visiting the provided websites for additional information on the whole plant based benefit and cooking recipes. The Whole Foods Plant Based Cooking Show Athletes such as Kelvin Kan, Antonio Guillermo, Shaheen Mooney YouTube Guilt Free Shaheen Mooney YouTube Guilt Free TV and Hua with Merlin Diamonds. Goodbye Lupus by Kandi Leonard M.D If [...] - Gentle Yoga Anyone Can Do Anywhere www.flyRuby.com/yo ga landon chi, stretching, cardio, gradual strengthening, [...] or a higher dose. Raw: Garlic, Cilantro, [place] nuts, Pumpkin seeds, [place] seeds and Flax seed powder have been reported to help with certain metal detoxification such as mercury. [place]-3 plant based sources: rachana seeds, flax seed powder, flax milk, walnuts. Turmeric can be found natural, used as the spice powder or the root with your food. This is also available as a capsule. Sweet cherries (raw cleaned or frozen) and Turmeric have anti-inflammatory benefit Start reviewing the Whole Plant Based Diet, by watching [place] over [employer] movie and then review website. There are many other resources and educational information on the Whole plant based diet on the Internet and documentaries. There are other resources for wellness that you can also benefit from, such as the [facility] Wellness website, [facility].org and includes the Mediterranean heart healthy diet and yoga and meditation. Please avoid all dairy products. You could use non-dairy milk such as Flax milk, Cashew milk, [place] milk, Rice milk, Oat milk or Hemp [...] Foundation) http://www.osteo.org/osteolinks.as p National Institutes of Health: 6-051-498-BONE The Calcium Information Center: Non-Dairy, Plant based Milk, contain 1 glass = 450 mg of calcium Exampled include Flax Milk, [place] Milk, Cashew Milk Examples of Food Sources of Calcium from [facility] Food Milligrams (mg) per serving Percent DV* Soymilk, calcium-fortified, 8 ounces 299 30 Jessamine juice, calcium-fortified, 6 ounces 261 26 Tofu, firm, made with calcium sulfate, cup* 253 25 Tofu, soft, made with calcium sulfate, cup* 138 14 Akbcu-rf-sln cereal, calcium-fortified, 1 cup 100-1,000 10-100 Turnip greens, fresh, boiled, cup 99 10 Kale, raw, chopped, 1 cup 100 10 Kale, fresh, cooked, 1 cup 94 9 Solomon Islander cabbage, bok gilbert, raw, shredded, 1 cup 74 7 Bread, white, 1 slice 73 7 Tortilla, corn, ubgyv-ha-rgmx/mcgee, one 6 diameter 46 5 Tortilla, flour, rehjv-rw-tdfl/mcgee, one 6 diameter 32 3 Bread, whole-wheat, [...] daily with a meal; Certain patients required 6881-1871 iu daily and in patients deficient in [...] bones. Studies show approximately 50% of [place] men and women are vitamin D deficient [...] national osteoporosis foundation) http://www.[facility].org/art hritis/osteo/info.htm http://ods.od.nih.gov/factsheets/v itamind.asp Espino Institutes of Health: 7-978-654-BONE [facility] Calcium Information [place]: Thank you for choosing [facility] for your healthcare. Sincerely, Fariba Hill APRN.ANTHONY documented in this encounter [facility] 10-29-2021 History of Present illness Narrative FOLLOW UP VISIT- virtual PCP: Tino Blake MD [address] [place] [address] Ms. Ludwig is a 36 year old [...] is planning to follow up with local abrasives sales representative closer to home. Until she has her [...] over her lifetime. We are assisting with director social consult, also to help with adherence to [...] from date of this visit. Fariba Hill APRN.DIRECTOR OF CLOUD SERVICES Recommendations to share with referring physician/Primary care [...] the care of your patient. Fariba Hill APRN.DIRECTOR OF CLOUD SERVICES CC: Tino Blake MD documented in this encounter [facility] 10-28-2021 Miscellaneous Notes If pt calls back, [...] a brief explanation. documented in this encounter [facility] 10-07-2021 Note PROCEDURE: XR FOOT L T [...] authenticated by: TERESO HERNANDEZ Date: 2021-10-07 12:06 [facility] 09-05-2021 Note OPERATIVE NOTE OPERATION DATE: 09/05/2021 PROCEDURE: Bilateral laparoscopic salpingectomy. PREOPERATIVE DIAGNOSIS:: 1. Multiparity. 2. Desires permanent sterilization. POSTOPERATIVE DIAGNOSIS:: 1. Multiparity. 2. Desires permanent sterilization. ANESTHESIA: General. SURGEON: Patricio Ram D.O. COMMUNITY DEVELOPMENT COORDINATOR: AMANDA Negron URINE OUTPUT: Yellow and clear. [...] and needle counts were correct x2. : [facility] Signed and Approved by: DR PATRICIO RAM . 09/12/2021 08:16:00 [facility] 09-03-2021 History of Present illness Narrative Since [...] open sores? No documented in this encounter [facility] 09-01-2021 Miscellaneous Notes I spoke to Sarah, she is coming for her infusion on 09-03-21. She states that she was on a z-pack for a URI, and that she has finished it 2 weeks ago. She was prescribed this from an ER visit in [place]. Pt states that she is feeling much better. documented in this encounter [facility] 08-07-2021 Miscellaneous Notes Spoke with patient Low potassium Please increase potassium in your diet: spinach, sweet potatoes, avocados, coconut water, dried fruits (dates and apricots), bananas, beans, acorn squash, mushrooms. Low vit d Will start rx Other labs acceptable range Labs in 1 month with infusion documented in this encounter [facility] 08-06-2021 History of Present illness Narrative Since [...] open sores? No documented in this encounter [facility] 07-23-2021 History of Present illness Narrative Since [...] open sores? No documented in this encounter [facility] 07-23-2021 Instructions Fariba Hill APRN.DIRECTOR OF CLOUD SERVICES - 07/23/2021 9:08 AM EDT -PLEASE NOTE THAT WE REVIEW ALL YOUR TEST RESULTS AT YOUR NEXT FOLLOW UP VISIT WITH YOU. IF ANY ABNORMAL LAB REQUIRES SOONER ATTENTION, WE WILL CONTACT YOU. -If you have signed up on [place], we will release your test results through SET. - Vitamin D : vitamin D3: 2000 [...] that features the Whole Plant Based diet, [place] over knives (see video online and visit website). Another movie that was recently released is: Eating You Alive (you can find it at [employer]) Dr. Lisa Armando is a [facility] physician who is an expert in Whole Plant based diet. His website is INVOLTA. His research work highlighted the benefits of [...] on a whole plant based diet, at [employer] and the free keisha is 21-Day Riley Meza with meals and recipes to follow. He has multiple free videos and YouTube, for example: https://youEditliteu.be/[email or web address] , https://youEditliteu.[email or web address] Dr. Gordy Farrell has proven starch diet whole plant based and benefit to his Rheumatoid Arthritis patients, his website: drBybanl.[employer] Dr. Maira Bertrand is a renowned agriculture scientist, who has studied and researched the benefits of the Whole plant based diet. He has also researched the adverse effects of animal proteins on health. He presents many of his research findings in his book The [place] study. Dr. Maurilio Xie has completed many research trials proving the reversal of diseases with healthy lifestyle and the Whole Plant based diet. Dr. Maurilio Xie website is: [employer] UnDo It a new book by Dr. Maurilio Thomas has dedicated a website and additional time to reviewing all food related articles and research and presents them in his power point presentation and on his website at: nutritionfacts.org Dr. Thomas has multiple free videos and YouTube, for example https://youtu.be/aSgNkhgVtks and https://[email or web address]. Also, you could find additional information by reading or watching online and YouTube such as: Fire Assistant AJ, Cooking With Plants, The Vegan Corner (recipes from an Uzbek Fire Assistant), and visiting the provided websites for additional information on the whole plant based benefit and cooking recipes. The Whole Foods Plant Based Cooking Show Athletes such as Kelvin Kan, Antonio Guillermo, Shaheen Mooney YouTube Guilt Free Shaheen Mooney YouTube Guilt Free TV and Hua with Merlin Diamonds. Goodbye Lupus by Kandi Leonard M.D If [...] - Gentle Yoga Anyone Can Do Anywhere www.SureSpeak.[employer]/yo ga landon chi, stretching, cardio, gradual strengthening, [...] or a higher dose. Raw: Garlic, Cilantro, [place] nuts, Pumpkin seeds, [place] seeds and Flax seed powder have been reported to help with certain metal detoxification such as mercury. [place]-3 plant based sources: rachana seeds, flax seed powder, flax milk, walnuts. Turmeric can be found natural, used as the spice powder or the root with your food. This is also available as a capsule. Sweet cherries (raw cleaned or frozen) and Turmeric have anti-inflammatory benefit Start reviewing the Whole Plant Based Diet, by watching [place] over [employer] movie and then review website. There are many other resources and educational information on the Whole plant based diet on the Internet and documentaries. There are other resources for wellness that you can also benefit from, such as the [facility] Wellness website, [facility].org and includes the Mediterranean heart healthy diet and yoga and meditation. Please avoid all dairy products. You could use non-dairy milk such as Flax milk, Cashew milk, [place] milk, Rice milk, Oat milk or Hemp [...] Foundation) http://www.osteo.org/osteolinks.as p National Institutes of Health: 6-703-087-BONE [facility] Calcium Information [place]: Non-Dairy, Plant based Milk, contain 1 glass = 450 mg of calcium Exampled include Flax Milk, [place] Milk, Cashew Milk Examples of Food Sources of Calcium from [facility] Food Milligrams (mg) per serving Percent DV* Soymilk, calcium-fortified, 8 ounces 299 30 Jessamine juice, calcium-fortified, 6 ounces 261 26 Tofu, firm, made with calcium sulfate, cup* 253 25 Tofu, soft, made with calcium sulfate, cup* 138 14 Pplxc-jz-ltc cereal, calcium-fortified, 1 cup 100 1,000 10 100 Turnip greens, fresh, boiled, cup 99 10 Kale, raw, chopped, 1 cup 100 10 Kale, fresh, cooked, 1 cup 94 9 [place]er cabbage, bok gilbert, raw, shredded, 1 cup 74 7 Bread, white, 1 slice 73 7 Tortilla, corn, zlizc-qf-tvtn/mcgee, one 6 diameter 46 5 Tortilla, flour, eyzfn-wn-bfrq/mcgee, one 6 diameter 32 3 Bread, whole-wheat, [...] daily with a meal; Certain patients required 2363-3151 iu daily and in patients deficient in [...] bones. Studies show approximately 50% of [place] men and women are vitamin D deficient [...] hritis/osteo/info.htm http://ods.od.nih.gov/factsheets/v itamind.asp National Institutes of Health: 8-233-896-BONE The Calcium Information [place]: Thank you for choosing [facility] for your healthcare. Sincerely, Fariba Hill APRN.DIRECTOR OF CLOUD SERVICES documented in this encounter [facility] 07-23-2021 History of Present illness Narrative FOLLOW UP VISIT- virtual PCP: Tino Blake MD [address] [place] [address] Ms. Ludwig is a 36 year old [...] is planning to follow up with local abrasives sales representative closer to home. Until she has her [...] over her lifetime. We are assisting with director social consult, also to help with adherence to [...] which included preparing to see the patient, qqry-oi-nvkd patient care, completing clinical documentation, obtaining and/or [...] Tino Blake MD documented in this encounter [facility] 07-22-2021 Miscellaneous Notes Patient called back stating that she will be hear for her infusion tomorrow. Patient can be reached at [phone]. Please advise. I left a message for [...] will be cancelled. documented in this encounter [facility] 07-18-2021 Miscellaneous Notes Sent pt a Myreks message. Attempted to contact patient Unable to leave message as voicemail is full No alternate number to try Please try again later Attempted number on file. No answer, unable to leave a message. I then attempted to reach number on file [phone] & she states there is nobody by the name Any at that phone number. Phylicia Torres MA Please call and update patient reflexis infusion approved. Please remind patient to complete labs this week thanks documented in this encounter [facility] 07-10-2021 Miscellaneous Notes Per Chilo, initial review [...] hears back. Please advise, thanks! [facility] [phone] Patient has been on mtx and arava [...] Request from Payor by: Phone [facility] [phone] Email Sent to: TE encounter Requested Clinicals/Information Sent: N/A documented in this encounter [facility] 06-26-2021 Miscellaneous Notes Fax received and placed on providers desk for review Called [facility] Spoke with Jaclyn Haider P2P was denied [...] in line to receive a call back. Phylicia Torres MA Received denial that came back yesterday. Will call Jenifer to find out if this was a denial before or after the P2P. Phylicia Torres MA Received a fax from denial for Serg Clark. Given to Fariba for review. Phylicia Torres MA Completed P2P on simponi Waiting for approval documented in this encounter [facility] 06-17-2021 Miscellaneous Notes Patient has been scheduled as requested for 06/20/21. I spoke with Ms. Ludwig and she is aware of all of the appointment details. Bailey Walker PSS June 17, 2021 11:56 AM Pt aware. Please call to schedule pt for lab as pt requested an apt. Thanks. Phylicia Torres MA ----- Message from Fariba Hill APRN.DIRECTOR OF CLOUD SERVICES sent at 06/16/2021 4:27 PM EDT ----- Please call patient and review documented in this encounter [facility] 09-15-2020 Hospital Discharge instructions Loida Caro PA-C - 09/15/2020 Call to arrange follow-up with primary care for repeat check within 24 to 48 hours. If you go home develop a high fever or worsening symptoms do not hesitate to return to the ER immediately. The following attachments cannot be sent through Care Everywhere.Pneumonia (Sudanese)documented in this encounter [facility] Phone: Evaluation note Diagnosis Pneumonia of both lungs due to infectious organism, unspecified part of lung- Primary documented in this encounter [facility] Phone: evaluation note* Diagnosis Right upper quadrant abdominal pain Abdominal pain, right upper quadrant documented in this encounter [employer] Phone: evaluation note* Diagnosis Seropositive rheumatoid arthritis (HCC)- Primary Rheumatoid arthritis [facility] [place] [facility] Diagnosis Seropositive rheumatoid arthritis (HCC)- Primary [...] therapeutic drug monitoring documented [facility] [place] [facility]* Diagnosis Seropositive rheumatoid arthritis (HCC)- Primary Rheumatoid arthritis Vitamin D deficiency Unspecified vitamin D deficiency documented [facility] [place] [facility]* Diagnosis Seropositive rheumatoid arthritis (HCC)- Primary Rheumatoid arthritis Vitamin D deficiency Unspecified vitamin D deficiency [facility] [place] [facility]* Diagnosis Dermatomyositis (HCC)- Primary Dermatomyositis Seropositive rheumatoid arthritis (HCC) Rheumatoid arthritis Vitamin D deficiency Unspecified vitamin D deficiency [facility] [place] [facility] Diagnosis Seropositive rheumatoid arthritis (HCC)- Primary [...] (HCC) Rheumatoid arthritis documented [facility] [place] [facility]* Diagnosis Seropositive rheumatoid arthritis (HCC)- Primary Rheumatoid arthritis Vitamin D deficiency Unspecified vitamin D deficiency documented [facility] this [facility] [place] [facility]* Diagnosis Seropositive rheumatoid arthritis (HCC)- Primary [...] (HCC) Rheumatoid arthritis [facility]* Diagnosis Vitamin D deficiency- Primary Unspecified vitamin D deficiency Seropositive rheumatoid arthritis (HCC) Rheumatoid arthritis documented [facility] this [facility] [place] [facility]* Diagnosis Seropositive rheumatoid arthritis (HCC)- Primary Rheumatoid arthritis documented [facility] this [facility] [place] [facility]* Diagnosis Seropositive rheumatoid arthritis (HCC)- Primary Rheumatoid arthritis [facility] [place] [facility]* Diagnosis Seropositive rheumatoid arthritis (HCC) Rheumatoid arthritis documented [facility]* Diagnosis Seropositive rheumatoid arthritis (HCC)- Primary [...] of other medications documented [facility] [place] [facility]* Diagnosis Seropositive rheumatoid arthritis (HCC)- Primary Rheumatoid arthritis Vitamin D deficiency Unspecified vitamin D deficiency documented [facility] [place] [facility]* Diagnosis Vitamin D deficiency Unspecified vitamin D deficiency documented in this encounter [facility] [place] [facility]* Diagnosis Seropositive rheumatoid arthritis (HCC)- Primary Rheumatoid arthritis [facility] [place] [facility]* Diagnosis Seropositive rheumatoid arthritis (HCC)- Primary Rheumatoid arthritis Vitamin D deficiency Unspecified vitamin D deficiency documented [facility] this [facility] [place] [facility]* Diagnosis Seropositive rheumatoid arthritis (HCC)- Primary Rheumatoid arthritis documented [facility] this [facility] [place] [facility]* Diagnosis Seropositive rheumatoid arthritis (HCC) Rheumatoid arthritis documented [facility] this [facility] [place] [facility]* Diagnosis Seropositive rheumatoid arthritis (HCC)- Primary [...] Tobacco use disorder [facility]* Diagnosis Seropositive rheumatoid arthritis (HCC)- Primary Rheumatoid arthritis Vitamin D deficiency Unspecified vitamin D deficiency Synovitis Synovitis and tenosynovitis, unspecified documented in this encounter [facility] note* Diagnosis Smokes and motivated to quit- Primary Tobacco use disorder Seropositive rheumatoid arthritis (HCC) Rheumatoid arthritis [facility] this [facility] [place] [facility]* Diagnosis Seropositive rheumatoid arthritis (HCC)- Primary Rheumatoid arthritis documented [facility] encounter [facility] [place] [facility]* Diagnosis Seropositive rheumatoid arthritis (HCC)- Primary Rheumatoid arthritis documented in this encounter [facility] note* Diagnosis Seropositive rheumatoid arthritis (HCC) Rheumatoid arthritis documented [facility] this [facility] [place] [facility]* Diagnosis Seropositive rheumatoid arthritis (HCC)- Primary Rheumatoid arthritis [facility] this [facility] [place] [facility]* Diagnosis Seropositive rheumatoid arthritis (HCC)- Primary [...] Other specified counseling documented in this encounter [facility] note* Diagnosis Seropositive rheumatoid arthritis (HCC)- Primary Rheumatoid arthritis [facility] this [facility] [place] [facility]* Diagnosis Seropositive rheumatoid arthritis (HCC)- Primary Rheumatoid arthritis documented [facility] encounter [facility] [place] [facility]* Diagnosis Seropositive rheumatoid arthritis (HCC)- Primary Rheumatoid arthritis Localized superficial swelling, mass, or lump documented in this encounter [facility] note* Diagnosis Seropositive rheumatoid arthritis (HCC)- Primary Rheumatoid arthritis Localized superficial swelling, mass, or lump Encounter for medication review and counseling Other specified counseling Synovitis Synovitis and tenosynovitis, unspecified Encounter to discuss test results Other specified counseling Medication monitoring encounter Encounter for therapeutic drug monitoring Smoker Tobacco use disorder [facility] [place] [facility]* Diagnosis Seropositive rheumatoid arthritis (HCC)- Primary Rheumatoid arthritis Vitamin D deficiency Unspecified vitamin D deficiency documented in this encounter [facility] note* Diagnosis Wheezing- Primary documented in this encounter [facility] note* Diagnosis Seropositive rheumatoid arthritis (HCC)- Primary Rheumatoid arthritis Synovitis Synovitis and tenosynovitis, unspecified Vitamin D deficiency Unspecified vitamin D deficiency Localized superficial swelling, mass, or lump Encounter to discuss test results Other specified counseling Encounter for medication review and counseling Other specified counseling Medication monitoring encounter Encounter for therapeutic drug monitoring documented in this encounter [facility] note* Diagnosis Seropositive rheumatoid arthritis (HCC) Rheumatoid arthritis documented in this encounter [facility] note* Diagnosis ADHD (attention deficit hyperactivity disorder), combined type (CMS/HCC)- Primary Attention deficit disorder with hyperactivity Anxiety Anxiety state, unspecified Anxiety- Primary Anxiety state, unspecified Tobacco user Tobacco use disorder BMI 29.0-29.9,adult Adult ADHD (attention deficit hyperactivity disorder) (CMS/HCC) Mild depression (CMS/[facility]) Depressive disorder, not elsewhere classified Adult ADHD (attention deficit hyperactivity disorder) (CMS/HCC)- Primary Tobacco user Tobacco use disorder Anxiety Anxiety state, unspecified Adult ADHD (attention deficit hyperactivity disorder) (CMS/HCC)- Primary Neutropenia, unspecified (CMS/HCC) Neutropenia, unspecified Tobacco user Tobacco use disorder BMI 29.0-29.9,adult Rheumatoid arthritis, involving unspecified site, unspecified whether rheumatoid factor present (CMS/[facility]) Anxiety Anxiety state, unspecified Subacute maxillary sinusitis Wheezing Nausea Nausea alone Wheezing [facility] Diagnostic Procedure Only (Routine) - Authorized Specialty Diagnoses / Procedures Referred By Contac t Referred To Contact XR IMAGING Diagnoses Seropositive rheumatoid arthritis (HCC) Procedures XR FOOT GENERAL 3V AP/LAT/OBL BILATERAL RADEX FOOT COMPLETE MINIMUM 3 VIEWS Farbia Hill, [employer]OL[employer] ASSEMBLER.DIRECTOR OF CLOUD SERVICES [address] [place] [address] Xr Imaging Referral ID Status Reason Start Date Expiration Date Visits Requested Visits Authorized [id number] Authorized Auto-Generat ed Referral 02/24/2022 03/26/2023 1 1 [facility] for referral (narrative)* Diagnostic Procedure Only (Routine) - Pending Review Specialty Diagnoses / Procedures Referred By Contac t Referred To Contact XR IMAGING Diagnoses Seropositive rheumatoid arthritis (HCC) Procedures XR FOOT GENERAL 3V AP/LAT/OBL BILATERAL RADEX FOOT COMPLETE MINIMUM 3 VIEWS Fariba Hill APRN.DIRECTOR OF CLOUD SERVICES [address] [place] [address] Xr Imaging Referral ID Status Reason Start Date Expiration Date Visits Requested Visits Authorized [id number] Pending Review Auto-Generat ed Referral 02/28/2022 03/30/2023 1 1 [facility] for referral (narrative)* Diagnostic Procedure Only (Routine) - Pending Review Specialty Diagnoses / Procedures Referred By Contac t Referred To Contact XR IMAGING Diagnoses Seropositive rheumatoid arthritis (HCC) Procedures XR FOOT GENERAL 3V AP/LAT/OBL BILATERAL RADEX FOOT COMPLETE MINIMUM 3 VIEWS Fariba Hill APRN.DIRECTOR OF CLOUD SERVICES [address] [place] [address] [place] [address] Referral ID Status Reason Start Date Expiration Date Visits Requested Visits Authorized [id number] Pending Review Auto-Generat ed Referral 10/22/2022 11/21/2023 1 1 [facility] for referral (narrative)* Diagnostic Procedure Only (Routine) - Pending Review Specialty Diagnoses / Procedures Referred By Contac t Referred To Contact US IMAGING Diagnoses Seropositive rheumatoid arthritis (HCC) Localized superficial swelling, mass, or lump Procedures US EXTREMITY MASS/FLUID COLLECTION LEFT Fariba Hill APRN.DIRECTOR OF CLOUD SERVICES [address] [place] [address] [place] [id number] Referral ID Status Reason Start Date Expiration Date Visits Requested Visits Authorized [id number] Pending Review Auto-Generat ed Referral 04/28/2023 05/27/2024 1 1 [facility] for visit Narrative* Diagnostic Procedure Only (Routine) - Closed Specialty Diagnoses / Procedures Referred By Contac t Referred To Contact XR IMAGING Diagnoses Seropositive rheumatoid arthritis (HCC) Procedures XR FOOT GENERAL 3V AP/LAT/OBL BILATERAL RADEX FOOT COMPLETE MINIMUM 3 VIEWS Fariba Hill, DIRECTOR OF CLOUD SERVICES [address] [place] [address] [place] [id number] Referral ID Status Reason Start Date Expiration Date V isits Requested Visits Authorized [id number] Closed Auto-Generate d Referral 04/14/2022 02/21/2023 1 1 [facility] Discharge Instructions * Instructions* Loida Caro PA-C [...] be sent through Care Everywhere. * Candidiasis (Sudanese) * Miscarriage: Threatened (Sudanese) documented in this encounter* Instructions* Loida Caro PA-C - 01/28/2019 Use ice rest keep wrist in splint. Follow-up with orthopedic provider listed below for further evaluation of continued pain. * Attachments The following attachments cannot be sent through Care Everywhere. * Carpal Tunnel Syndrome (Sudanese) documented in this encounter* Instructions* Tami Payne RN - 05/02/2019 Outpatient Instructions for IM or Subcutaneous Injections [address] [place] [address] You are advised to carry out the [...] Outpatient Instructions for IM or Subcutaneous Injections [address] [facility] [address] [place] [address] You are advised to carry out the [...] Follow-up with your OB doctor as specified. [facility] OB Department phone: Dr. Kera WORTHY Dr. Mendy Viera [address] [place] [id number] [place] or [place] DIET Eat a well balanced diet focusing on foods high in fiber and protein. Drink plenty of fluids especially water. To avoid constipation you may take a mild stool softener as recommended by your doctor or manager servicing. ACTIVITY Gradually increase your activity. Resume exercise regimen only after advice by your doctor or manager servicing. Avoid lifting anything heavier than a gallon of milk for SIX weeks. Avoid driving until your doctor or manager servicing has given their approval. Rise slowly from [...] have thoughts of harming yourself or your infant. If will not stop crying, contact another adult for help or place in their crib on their back and take a break. NEVER shake your . BLEEDING Vaginal bleeding will decrease in amount [...] medications as recommended by your doctor or manager servicing for pain If you develop a warm, red, tender area on your breast or develop a fever contact your OB provider. For moms: If you become engorged, feeding may be more difficult or painful for 1-2 days. You may find it helpful to hand express some milk so that the infant can latch on more easily. While , continue to take your vitamins as directed by your doctor or manager servicing. Refer to the booklet in the folder/binder for more information. If you feel you need more assistance or have questions, please call Sarah Wang IBCLC, data processing consultant, at or the OB department to [...] through Care Everywhere. * COVID-19 Viral Test (Sudanese) documented in this encounter Assessments Diagnosis Threatened [...] Documents on File Type Date Recorded Patient Second Floor Operator Expl anation Advance Directives and Living Will Power of Demographic Analyst Documents on File Type Date Recorded Patient Second Floor Operator Expl anation Advance Directives and Living Will Power of Demographic Analyst Latest Code Status on File Code Status Date Activated Date Inactivated Comments Full Code 07/12/2019 1:54 PM Full Code 07/11/2019 8:21 PM 07/12/2019 1:54 PM Full Code 07/11/2019 7:48 PM 07/11/2019 7:51 PM Documents on File Type Date Recorded Patient Second Floor Operator Expl anation ACP-Advance Directive ACP-Power of Demographic Analyst Latest Code Status on File Code Status Date Activated Date Inactivated Comments Full Code 07/12/2019 1:54 PM 07/13/2019 3:24 PM Reason for Referral Status Reason Specialty Diagnoses / Procedures Re ferred By Contact Referred To Contact Open Radiology Diagnoses Superficial thrombophlebitis of left upper extremity Procedures VL DUP UPPER EXTREMITY VENOUS LEFT Mk Mayo MD [address] [place] [address] Status Reason Specialty Diagnoses / Procedures Referre d By Contact Referred To Contact Open Radiology Diagnoses Right upper quadrant abdominal pain Procedures US Gallbladder Tosha Mcginnis, [employer]SEMBLER - CNM [address] [place] [address] Specialty Diagnoses / Procedures Referred By Contac t Referred To Contact Podiatry Diagnoses Pain in left foot Procedures CONSULT TO PODIATRY OFFICE/OUTPATIENT [facility] 60-74 MINUTES Fariba Hill, GOL[employer] ASSEMBLER.DIRECTOR OF CLOUD SERVICES [address] [place] [address] Referral ID Status Reason Start Date Expiration Date Visits Requested Visits Authorized [id number] Pending Review PCP Requested Referral 2 01/05/2023 1 1 Specialty Diagnoses / Procedures Referred By Contac t Referred To Contact Orthopedics Diagnoses Pain in right foot Procedures CONSULT TO ORTHOPAEDICS OFFICE/OUTPATIENT [facility] 60-74 MINUTES Liz, Fariba M, [employer] ASSEMBLER.DIRECTOR OF CLOUD SERVICES [address] [place] [address] Referral ID Status Reason Start Date Expiration Date Visits Requested Visits Authorized [id number] Pending Review PCP Requested Referral 3 01/20/2024 1 1 Specialty Diagnoses / Procedures Referred By Contac t Referred To Contact Dermatology Diagnoses Localized superficial swelling, mass, or lump Seropositive rheumatoid arthritis (HCC) Procedures CONSULT TO DERMATOLOGY OFFICE/OUTPATIENT [facility] MDM 60 MINUTES Fariba Hill, GOL[employer] CL[employer] ASSEMBLER.DIRECTOR OF CLOUD SERVICES [address] [place] [address] Referral ID Status Reason Start Date Expiration Date Visits Requested Visits Authorized [id number] Authorized PCP Requested Referral 04/28/2023 04/27/2024 1 1 Specialty Diagnoses / Procedures Referred By Contac t Referred To Contact US IMAGING Diagnoses Localized superficial swelling, mass, or lump Seropositive rheumatoid arthritis (HCC) Procedures US ELBOW LEFT US LMTD JOINT/OTH NONVASC XTR STRUX R-T W/IMG Fariba Hill, GOL[employer] ASSEMBLER.DIRECTOR OF CLOUD SERVICES [address] [place] [address] [place] [address] Referral ID Status Reason Start Date Expiration Date Visits Requested Visits Authorized [id number] Pending Review Auto-Generat ed Referral 04/28/2023 05/27/2024 1 1 History of Present Illness * Any Palencia RN - 07/13/2019 12:10 PM EDT discharge instructions explained to pt, pt v.u. [...] instructions explained to pt, pt v.u. * Maximiliano Tosha Tanisha, [employer] ASSEMBLER - CNM - 07/13/2019 8:26 AM EDT Department of [...] 97.6 F (36.4 C) Oral 70 20 07/12/19 1849 113/76 97.5 F (36.4 C) Axillary 85 18 07/12/19 1332 111/71 62 18 07/12/19 1317 109/71 80 18 07/12/19 1302 117/70 89 18 07/12/19 1247 121/73 76 18 07/12/19 1233 114/66 64 18 07/12/19 1217 109/67 71 18 07/12/19 1202 114/62 80 18 07/12/19 1147 108/66 75 18 07/12/19 1145 107/65 68 18 07/12/19 1127 109/65 83 18 07/12/19 1116 128/61 57 18 07/12/19 1044 113/66 86 07/12/19 1042 (!) 82/52 75 07/12/19 1031 (!) 89/53 60 05 1028 (!) 88/54 91 14 07/12/19 1013 102/62 64 05/20/20 1000 119/73 64 05/20/20 0951 117/73 68 16 98 % 05/20/20 0946 98 % 05/20/20 0943 121/73 63 16 05/20/20 0941 98 % 05/20/20 0936 98 % 05//20 0931 98 % 05/20/20 0928 118/81 61 16 05/20/20 0915 97.5 F (36.4 C) Axillary 07/12/19 0912 118/82 72 05/20/20 0906 117/72 67 98 % 05/20 0901 97 % 05 0900 (!) 105/59 63 05 0856 97 % 0520 0855 124/69 69 05/20/20 0853 130/84 86 05 0851 127/76 72 05 0849 133/87 90 052020 0846 132/84 81 0520 0844 130/82 77 05/20/20 0843 97 % 0520 0842 129/83 76 05/20/20 0840 139/88 78 05 0838 (!) 140/87 75 96 % 05 0836 (!) 149/90 81 05/20 0834 134/85 75 05/20/20 0833 97 % ABDOMEN: normal shape, position [...] Bhat RN - 07/12/2019 9:40 AM EDT Tsoha called and notified that pt had spontaneous 5 minute decel down to 65bpm. Pt flipped to both sides, IV bolus given and pit turned off. Tosha pulls strip up in office and views it while information writer talking. Updated that pt 3 cm, was checked during decel. Primary nurse currently placing luc. Kindrates to wait 1/2 hour then call her back to discuss plan for pitocin. * Any Palencia RN - 07/12/2019 9:40 AM EDT Plan of care explained to pt, pt v.u. Pt resting on left side. * Any Palencia RN - 07/12/2019 8:11 AM EDT Tayla WORTHYM returns RN's call. RN inquires about scheduled [...] 25 mg, ORAL, ONCE, 1 dose, On Wed11/13/21 at 1330 Given 11/13/2021 1:29 PM EDT [...] 125 mg, INTRAVENOUS, ONCE, 1 dose, On Wed11/13/21 at 1330 Given 11/13/2021 1:35 PM EDT [...] 650 mg, ORAL, ONCE, 1 dose, On Wed09/17/22 at 0930, No more than 4000 mg [...] Starting on Diane 10/22/22 at 0938, Until Diane 10/22/22 at 1040, Administer per hypersensitivity/anaphylax is grading in nursing communication Given 10/22/2022 10:40 AM EDT 50 mg hydrocortisone sodium succinate (PF) 100 mg injection (Solu-CORTEF) 100 mg, INTRAVENOUS, NEEDED, 1 dose, Starting on Diane 10/22/22 at 0938, Until Diane 10/22/22 at 1042, Administer per hypersensitivity/anaphylax is grading in nursing communication Given 10/22/2022 10:42 AM EDT 100 mg inFLIXimab-axxq 500 mg in NaCl 0.9% 250 mL (AVSOLA) 500 mg, INTRAVENOUS, at 83.33-250 mL/hr, Administer over 1-3 Hours, ONCE, 1 dose, On Diane 10/22/22 at 1000, Total Volume: = 250 mL EXP: 10/30/22 Administer with 0.2 micron filter. New Bag/Syringe/Bottle 10/22/2022 10:20 AM EDT 500 mg 250 mL/hr methylPREDNISolone sodium succinate 125 mg injection (SOLU-Medrol) 125 mg, INTRAVENOUS, ONCE, 1 dose, On Diane 10/22/22 at 1000 Given 10/22/2022 9:55 AM EDT [...] over 60 Minutes, ONCE, 1 dose, On Diane 12/31/22 at 1030, PROTECT FROM LIGHT -- TOTAL [...] AVSOLA, 10 MG Juan Daniel Leos MD [address] [place] [address] [facility] [address] [place] [address] Referral ID Status Reason Start Date Expiration Date V isits Requested Visits Authorized [id number] Authorized 07/01/2021 09/01/2023 99 99 Reason Comments renflexis infusion Specialty Diagnoses / Procedures Referred By Contac t Referred To Contact Diagnoses Seropositive rheumatoid arthritis (HCC) Procedures INJECTION, RENFLEXIS Juan Daniel Leos MD [address] [place] [address] [facility] [address] [place] [address] Referral ID Status Reason Start Date Expiration Date V isits Requested Visits Authorized [id number] Authorized 07/01/2021 08/22/2022 9 9 Referral ID Status Reason Start Date Expiration Date V isits Requested Visits Authorized [id number] Authorized 07/01/2021 01/18/2022 5 5 Reason Comments [...] Contact Referred To Contact Diagnoses Term Tosha Viera APRN - CNM [address] [place] [address] [facility] Reason Comments Covid Testing Pt states positive e xposure with loss of smell/taste and cough Otalgia Right Joint Pain Knees/feet r/t arthr itis Reason Comments Cough ongoing for a week Status Reason Specialty Diagnoses / Procedures Referre d By Contact Referred To Contact Open Radiology Diagnoses Right upper quadrant abdominal pain Procedures US Gallbladder Ruq Tosha Viera APRN - CNM [address] [place] [address] Reason Comments Insurance Authorization Prior Auth Delay ed: Additional Info needed for Renflexis Reason Comments Appointment Specialty Diagnoses / Procedures Referred By Contac t Referred To Contact Diagnoses Seropositive rheumatoid arthritis (HCC) Procedures INJECTION, RENFLEXJuan Daniel Hassan MD [address] [place] [address] [facility] [address] [place] [address] Reason Comments Follow Up Reason Comments Results [...] Expiration Date Visits Re quested Visits Authorized [id number] Closed 07/01/2021 09/01/2023 16 16 Specialty Diagnoses / Procedures [facility] Referred To Contact Diagnoses Seropositive rheumatoid arthritis (HCC) Procedures TOCILIZUMAB INJECTION tocilizumab 281.2 mg (ACTEMRA) Q28 days Fariba Hill, [employer]OL[employer] ASSEMBLER.DIRECTOR OF CLOUD SERVICES [address] [place] [address] Rheu Infusion [facility] [address] [place] [address] Referral ID Status Reason Start Date Expiration Date V isits Requested Visits Authorized [id number] Authorized 11/10/2022 11/20/2023 14 14 Reason Comments Lab Orders Specialty Diagnoses / Procedures Referred By Contac Referred To Contact Diagnoses Seropositive rheumatoid arthritis (HCC) Procedures TOCILIZUMAB INJECTION tocilizumab 281.2 mg (ACTEMRA) Q28 days Fariba Hill, G[employer] ASSEMBLER.DIRECTOR OF CLOUD SERVICES [address] [place] [address] Rhe[facility]fusion [facility] [address] [place] [address] Reason Comments F/U 3 Month continues to have se giovanni pain in hands wrists and Rt foot x 2-3 wks Referral ID Status Reason Start Date Expiration Date Visits Requested Visits Authorized [id number] Authorized Clearance Not Met - Pt Rescheduled/ Cancelled/Ch ose Not to Proceed 11/10/2022 01/20/2024 99 99 Reason Comments No Show To f/u apt Reason Comments Wheezing Cough with wheezing, 2 weeks Reason Comments Med Refill Ordered Prescriptions (unrec ognized section and content) [...] with water (without swallowing) after every dose. 1840 (Given - Provid er: Helen Reinoso RCP) dexamethasone (DECADRON) injection 6 mg (COMPLETED) 6 mg, Intramuscular, ONCE, On 09/15/20 at 1830, For 1 dose 1902 (Given - Provid er: nAy Viera RN) doxycycline hyclate (VIBRAMYCIN) capsule 100 [...] On 09/15/20 at 1745, For 1 dose 184 (Given - Provid er: Helen Reinoso RCP) Source Comments (unrecognize d section and content) In the event this informatio n is protected by the Federal Confidentiality of Alcohol and Drug Abuse Patient Records regulations: The Federal rules restrict any use of the information to criminally investigate or prosecute any alcohol or drug abuse patient.[facility] the event this information is protected by the Federal Confidentiality of Alcohol and Drug Abuse Patient Records regulations: The Federal rules restrict any use of the information to criminally investigate or prosecute any alcohol or drug abuse patient.[facility] the event this information is protected by the Federal Confidentiality of Alcohol and Drug Abuse Patient Records regulations: The Federal rules restrict any use of the information to criminally investigate or prosecute any alcohol or drug abuse patient.[facility] the event this information is protected by the Federal Confidentiality of Alcohol and Drug Abuse Patient Records regulations: The Federal rules restrict any use of the information to criminally investigate or prosecute any alcohol or drug abuse patient.[facility] the event this information is protected by the Federal Confidentiality of Alcohol and Drug Abuse Patient Records regulations: The Federal rules restrict any use of the information to criminally investigate or prosecute any alcohol or drug abuse patient.[facility] the event this information is protected by the Federal Confidentiality of Alcohol and Drug Abuse Patient Records regulations: The Federal rules restrict any use of the information to criminally investigate or prosecute any alcohol or drug abuse patient.[facility] the event this information is protected by the Federal Confidentiality of Alcohol and Drug Abuse Patient Records regulations: The Federal rules restrict any use of the information to criminally investigate or prosecute any alcohol or drug abuse patient.[facility] the event this information is protected by the Federal Confidentiality of Alcohol and Drug Abuse Patient Records regulations: The Federal rules restrict any use of the information to criminally investigate or prosecute any alcohol or drug abuse patient.[facility] the event this information is protected by the Federal Confidentiality of Alcohol and Drug Abuse Patient Records regulations: The Federal rules restrict any use of the information to criminally investigate or prosecute any alcohol or drug abuse patient.[facility] the event this information is protected by the Federal Confidentiality of Alcohol and Drug Abuse Patient Records regulations: The Federal rules restrict any use of the information to criminally investigate or prosecute any alcohol or drug abuse patient.[facility] the event this information is protected by the Federal Confidentiality of Alcohol and Drug Abuse Patient Records regulations: The Federal rules restrict any use of the information to criminally investigate or prosecute any alcohol or drug abuse patient.[facility] the event this information is protected by the Federal Confidentiality of Alcohol and Drug Abuse Patient Records regulations: The Federal rules restrict any use of the information to criminally investigate or prosecute any alcohol or drug abuse patient.[facility] the event this information is protected by the Federal Confidentiality of Alcohol and Drug Abuse Patient Records regulations: The Federal rules restrict any use of the information to criminally investigate or prosecute any alcohol or drug abuse patient.[facility] the event this information is protected by the Federal Confidentiality of Alcohol and Drug Abuse Patient Records regulations: The Federal rules restrict any use of the information to criminally investigate or prosecute any alcohol or drug abuse patient.[facility] the event this information is protected by the Federal Confidentiality of Alcohol and Drug Abuse Patient Records regulations: The Federal rules restrict any use of the information to criminally investigate or prosecute any alcohol or drug abuse patient.[facility] the event this information is protected by the Federal Confidentiality of Alcohol and Drug Abuse Patient Records regulations: The Federal rules restrict any use of the information to criminally investigate or prosecute any alcohol or drug abuse patient.[facility] the event this information is protected by the Federal Confidentiality of Alcohol and Drug Abuse Patient Records regulations: The Federal rules restrict any use of the information to criminally investigate or prosecute any alcohol or drug abuse patient.[facility] the event this information is protected by the Federal Confidentiality of Alcohol and Drug Abuse Patient Records regulations: The Federal rules restrict any use of the information to criminally investigate or prosecute any alcohol or drug abuse patient.[facility], [place]In the event this information is protected by the Federal Confidentiality of Alcohol and Drug Abuse Patient Records regulations: The Federal rules restrict any use of the information to criminally investigate or prosecute any alcohol or drug abuse patient.[facility], [place]In the event this information is protected by the Federal Confidentiality of Alcohol and Drug Abuse Patient Records regulations: The Federal rules restrict any use of the information to criminally investigate or prosecute any alcohol or drug abuse patient.[facility], [place]In the event this information is protected by the Federal Confidentiality of Alcohol and Drug Abuse Patient Records regulations: The Federal rules restrict any use of the information to criminally investigate or prosecute any alcohol or drug abuse patient.[facility], [place]In the event this information is protected by the Federal Confidentiality of Alcohol and Drug Abuse Patient Records regulations: The Federal rules restrict any use of the information to criminally investigate or prosecute any alcohol or drug abuse patient.[facility], [place]In the event this information is protected by the Federal Confidentiality of Alcohol and Drug Abuse Patient Records regulations: The Federal rules restrict any use of the information to criminally investigate or prosecute any alcohol or drug abuse patient.[facility], [place]In the event this information is protected by the Federal Confidentiality of Alcohol and Drug Abuse Patient Records regulations: The Federal rules restrict any use of the information to criminally investigate or prosecute any alcohol or drug abuse patient.[facility], [place]In the event this information is protected by the Federal Confidentiality of Alcohol and Drug Abuse Patient Records regulations: The Federal rules restrict any use of the information to criminally investigate or prosecute any alcohol or drug abuse patient.[facility], [place]In the event this information is protected by the Federal Confidentiality of Alcohol and Drug Abuse Patient Records regulations: The Federal rules restrict any use of the information to criminally investigate or prosecute any alcohol or drug abuse patient.[facility], [place]In the event this information is protected by the Federal Confidentiality of Alcohol and Drug Abuse Patient Records regulations: The Federal rules restrict any use of the information to criminally investigate or prosecute any alcohol or drug abuse patient.[facility], [place]In the event this information is protected by the Federal Confidentiality of Alcohol and Drug Abuse Patient Records regulations: The Federal rules restrict any use of the information to criminally investigate or prosecute any alcohol or drug abuse patient.[facility], [place]In the event this information is protected by the Federal Confidentiality of Alcohol and Drug Abuse Patient Records regulations: The Federal rules restrict any use of the information to criminally investigate or prosecute any alcohol or drug abuse patient.[facility], [place]In the event this information is protected by the Federal Confidentiality of Alcohol and Drug Abuse Patient Records regulations: The Federal rules restrict any use of the information to criminally investigate or prosecute any alcohol or drug abuse patient.[facility], [place]In the event this information is protected by the Federal Confidentiality of Alcohol and Drug Abuse Patient Records regulations: The Federal rules restrict any use of the information to criminally investigate or prosecute any alcohol or drug abuse patient.[facility], [place]In the event this information is protected by the Federal Confidentiality of Alcohol and Drug Abuse Patient Records regulations: The Federal rules restrict any use of the information to criminally investigate or prosecute any alcohol or drug abuse patient.[facility], [place]In the event this information is protected by the Federal Confidentiality of Alcohol and Drug Abuse Patient Records regulations: The Federal rules restrict any use of the information to criminally investigate or prosecute any alcohol or drug abuse patient.[facility], [place]In the event this information is protected by the Federal Confidentiality of Alcohol and Drug Abuse Patient Records regulations: The Federal rules restrict any use of the information to criminally investigate or prosecute any alcohol or drug abuse patient.[facility], [place]In the event this information is protected by the Federal Confidentiality of Alcohol and Drug Abuse Patient Records regulations: The Federal rules restrict any use of the information to criminally investigate or prosecute any alcohol or drug abuse patient.[facility], [place]In the event this information is protected by the Federal Confidentiality of Alcohol and Drug Abuse Patient Records regulations: The Federal rules restrict any use of the information to criminally investigate or prosecute any alcohol or drug abuse patient.[facility], [place]In the event this information is protected by the Federal Confidentiality of Alcohol and Drug Abuse Patient Records regulations: The Federal rules restrict any use of the information to criminally investigate or prosecute any alcohol or drug abuse patient.[facility], [place]In the event this information is protected by the Federal Confidentiality of Alcohol and Drug Abuse Patient Records regulations: The Federal rules restrict any use of the information to criminally investigate or prosecute any alcohol or drug abuse patient.[facility], [place]In the event this information is protected by the Federal Confidentiality of Alcohol and Drug Abuse Patient Records regulations: The Federal rules restrict any use of the information to criminally investigate or prosecute any alcohol or drug abuse patient.[facility], [place]In the event this information is protected by the Federal Confidentiality of Alcohol and Drug Abuse Patient Records regulations: The Federal rules restrict any use of the information to criminally investigate or prosecute any alcohol or drug abuse patient.[facility], [place]In the event this information is protected by the Federal Confidentiality of Alcohol and Drug Abuse Patient Records regulations: The Federal rules restrict any use of the information to criminally investigate or prosecute any alcohol or drug abuse patient.[facility], [place]In the event this information is protected by the Federal Confidentiality of Alcohol and Drug Abuse Patient Records regulations: The Federal rules restrict any use of the information to criminally investigate or prosecute any alcohol or drug abuse patient.[facility], [place]In the event this information is protected by the Federal Confidentiality of Alcohol and Drug Abuse Patient Records regulations: The Federal rules restrict any use of the information to criminally investigate or prosecute any alcohol or drug abuse patient.[facility], [place]In the event this information is protected by the Federal Confidentiality of Alcohol and Drug Abuse Patient Records regulations: The Federal rules restrict any use of the information to criminally investigate or prosecute any alcohol or drug abuse patient.[facility], [place]In the event this information is protected by the Federal Confidentiality of Alcohol and Drug Abuse Patient Records regulations: The Federal rules restrict any use of the information to criminally investigate or prosecute any alcohol or drug abuse patient.[facility], [place]In the event this information is protected by the Federal Confidentiality of Alcohol and Drug Abuse Patient Records regulations: The Federal rules restrict any use of the information to criminally investigate or prosecute any alcohol or drug abuse patient.[facility], [place]In the event this information is protected by the Federal Confidentiality of Alcohol and Drug Abuse Patient Records regulations: The Federal rules restrict any use of the information to criminally investigate or prosecute any alcohol or drug abuse patient.[facility], [place]In the event this information is protected by the Federal Confidentiality of Alcohol and Drug Abuse Patient Records regulations: The Federal rules restrict any use of the information to criminally investigate or prosecute any alcohol or drug abuse patient.[facility], [place]In the event this information is protected by the Federal Confidentiality of Alcohol and Drug Abuse Patient Records regulations: The Federal rules restrict any use of the information to criminally investigate or prosecute any alcohol or drug abuse patient.[facility], [place]In the event this information is protected by the Federal Confidentiality of Alcohol and Drug Abuse Patient Records regulations: The Federal rules restrict any use of the information to criminally investigate or prosecute any alcohol or drug abuse patient.[facility], [place]In the event this information is protected by the Federal Confidentiality of Alcohol and Drug Abuse Patient Records regulations: The Federal rules restrict any use of the information to criminally investigate or prosecute any alcohol or drug abuse patient.[facility], [place]In the event this information is protected by the Federal Confidentiality of Alcohol and Drug Abuse Patient Records regulations: The Federal rules restrict any use of the information to criminally investigate or prosecute any alcohol or drug abuse patient.[facility], [place]In the event this information is protected by the Federal Confidentiality of Alcohol and Drug Abuse Patient Records regulations: The Federal rules restrict any use of the information to criminally investigate or prosecute any alcohol or drug abuse patient.[facility], [place]In the event this information is protected by the Federal Confidentiality of Alcohol and Drug Abuse Patient Records regulations: The Federal rules restrict any use of the information to criminally investigate or prosecute any alcohol or drug abuse patient.[facility], [place]In the event this information is protected by the Federal Confidentiality of Alcohol and Drug Abuse Patient Records regulations: The Federal rules restrict any use of the information to criminally investigate or prosecute any alcohol or drug abuse patient.[facility], [place]In the event this information is protected by the Federal Confidentiality of Alcohol and Drug Abuse Patient Records regulations: The Federal rules restrict any use of the information to criminally investigate or prosecute any alcohol or drug abuse patient.[facility], [place]In the event this information is protected by the Federal Confidentiality of Alcohol and Drug Abuse Patient Records regulations: The Federal rules restrict any use of the information to criminally investigate or prosecute any alcohol or drug abuse patient.[facility], [place]In the event this information is protected by the Federal Confidentiality of Alcohol and Drug Abuse Patient Records regulations: The Federal rules restrict any use of the information to criminally investigate or prosecute any alcohol or drug abuse patient.[facility], [place]In the event this information is protected by the Federal Confidentiality of Alcohol and Drug Abuse Patient Records regulations: The Federal rules restrict any use of the information to criminally investigate or prosecute any alcohol or drug abuse patient.[facility], [place]In the event this information is protected by the Federal Confidentiality of Alcohol and Drug Abuse Patient Records regulations: The Federal rules restrict any use of the information to criminally investigate or prosecute any alcohol or drug abuse patient.[facility], [place]In the event this information is protected by the Federal Confidentiality of Alcohol and Drug Abuse Patient Records regulations: The Federal rules restrict any use of the information to criminally investigate or prosecute any alcohol or drug abuse patient.[facility], [place]In the event this information is protected by the Federal Confidentiality of Alcohol and Drug Abuse Patient Records regulations: The Federal rules restrict any use of the information to criminally investigate or prosecute any alcohol or drug abuse patient.[facility], [place]In the event this information is protected by the Federal Confidentiality of Alcohol and Drug Abuse Patient Records regulations: The Federal rules restrict any use of the information to criminally investigate or prosecute any alcohol or drug abuse patient.[facility], [place]In the event this information is protected by the Federal Confidentiality of Alcohol and Drug Abuse Patient Records regulations: The Federal rules restrict any use of the information to criminally investigate or prosecute any alcohol or drug abuse patient.[facility], [place]In the event this information is protected by the Federal Confidentiality of Alcohol and Drug Abuse Patient Records regulations: The Federal rules restrict any use of the information to criminally investigate or prosecute any alcohol or drug abuse patient.[facility], [place]In the event this information is protected by the Federal Confidentiality of Alcohol and Drug Abuse Patient Records regulations: The Federal rules restrict any use of the information to criminally investigate or prosecute any alcohol or drug abuse patient.[facility], [place]In the event this information is protected by the Federal Confidentiality of Alcohol and Drug Abuse Patient Records regulations: The Federal rules restrict any use of the information to criminally investigate or prosecute any alcohol or drug abuse patient.[facility], [place]In the event this information is protected by the Federal Confidentiality of Alcohol and Drug Abuse Patient Records regulations: The Federal rules restrict any use of the information to criminally investigate or prosecute any alcohol or drug abuse patient.[facility], [place]In the event this information is protected by the Federal Confidentiality of Alcohol and Drug Abuse Patient Records regulations: The Federal rules restrict any use of the information to criminally investigate or prosecute any alcohol or drug abuse patient.[facility], [place]In the event this information is protected by the Federal Confidentiality of Alcohol and Drug Abuse Patient Records regulations: The Federal rules restrict any use of the information to criminally investigate or prosecute any alcohol or drug abuse patient.[facility], [place]In the event this information is protected by the Federal Confidentiality of Alcohol and Drug Abuse Patient Records regulations: The Federal rules restrict any use of the information to criminally investigate or prosecute any alcohol or drug abuse patient.[facility], [place]In the event this information is protected by the Federal Confidentiality of Alcohol and Drug Abuse Patient Records regulations: The Federal rules restrict any use of the information to criminally investigate or prosecute any alcohol or drug abuse patient.[facility], [place]In the event this information is protected by the Federal Confidentiality of Alcohol and Drug Abuse Patient Records regulations: The Federal rules restrict any use of the information to criminally investigate or prosecute any alcohol or drug abuse patient.[facility], [place]In the event this information is protected by the Federal Confidentiality of Alcohol and Drug Abuse Patient Records regulations: The Federal rules restrict any use of the information to criminally investigate or prosecute any alcohol or drug abuse patient.[facility], [place]In the event this information is protected by the Federal Confidentiality of Alcohol and Drug Abuse Patient Records regulations: The Federal rules restrict any use of the information to criminally investigate or prosecute any alcohol or drug abuse patient.[facility], [place]In the event this information is protected by the Federal Confidentiality of Alcohol and Drug Abuse Patient Records regulations: The Federal rules restrict any use of the information to criminally investigate or prosecute any alcohol or drug abuse patient.[facility], [place]In the event this information is protected by the Federal Confidentiality of Alcohol and Drug Abuse Patient Records regulations: The Federal rules restrict any use of the information to criminally investigate or prosecute any alcohol or drug abuse patient.[facility], [place]In the event this information is protected by the Federal Confidentiality of Alcohol and Drug Abuse Patient Records regulations: The Federal rules restrict any use of the information to criminally investigate or prosecute any alcohol or drug abuse patient.[facility], [place]In the event this information is protected by the Federal Confidentiality of Alcohol and Drug Abuse Patient Records regulations: The Federal rules restrict any use of the information to criminally investigate or prosecute any alcohol or drug abuse patient.[facility], [place]In the event this information is protected by the Federal Confidentiality of Alcohol and Drug Abuse Patient Records regulations: The Federal rules restrict any use of the information to criminally investigate or prosecute any alcohol or drug abuse patient.[facility], [place]In the event this information is protected by the Federal Confidentiality of Alcohol and Drug Abuse Patient Records regulations: The Federal rules restrict any use of the information to criminally investigate or prosecute any alcohol or drug abuse patient.[facility], [place]In the event this information is protected by the Federal Confidentiality of Alcohol and Drug Abuse Patient Records regulations: The Federal rules restrict any use of the information to criminally investigate or prosecute any alcohol or drug abuse patient.[facility], [place]In the event this information is protected by the Federal Confidentiality of Alcohol and Drug Abuse Patient Records regulations: The Federal rules restrict any use of the information to criminally investigate or prosecute any alcohol or drug abuse patient.[facility], [place]In the event this information is protected by the Federal Confidentiality of Alcohol and Drug Abuse Patient Records regulations: The Federal rules restrict any use of the information to criminally investigate or prosecute any alcohol or drug abuse patient.[facility], [place]In the event this information is protected by the Federal Confidentiality of Alcohol and Drug Abuse Patient Records regulations: The Federal rules restrict any use of the information to criminally investigate or prosecute any alcohol or drug abuse patient.[facility], [place]In the event this information is protected by the Federal Confidentiality of Alcohol and Drug Abuse Patient Records regulations: The Federal rules restrict any use of the information to criminally investigate or prosecute any alcohol or drug abuse patient.[facility], [place]In the event this information is protected by the Federal Confidentiality of Alcohol and Drug Abuse Patient Records regulations: The Federal rules restrict any use of the information to criminally investigate or prosecute any alcohol or drug abuse patient.[facility], [place]In the event this information is protected by the Federal Confidentiality of Alcohol and Drug Abuse Patient Records regulations: The Federal rules restrict any use of the information to criminally investigate or prosecute any alcohol or drug abuse patient.[facility], [place]In the event this information is protected by the Federal Confidentiality of Alcohol and Drug Abuse Patient Records regulations: The Federal rules restrict any use of the information to criminally investigate or prosecute any alcohol or drug abuse patient.[facility], [place]In the event this information is protected by the Federal Confidentiality of Alcohol and Drug Abuse Patient Records regulations: The Federal rules restrict any use of the information to criminally investigate or prosecute any alcohol or drug abuse patient.[facility], [place]In the event this information is protected by the Federal Confidentiality of Alcohol and Drug Abuse Patient Records regulations: The Federal rules restrict any use of the information to criminally investigate or prosecute any alcohol or drug abuse patient.[facility], [place]In the event this information is protected by the Federal Confidentiality of Alcohol and Drug Abuse Patient Records regulations: The Federal rules restrict any use of the information to criminally investigate or prosecute any alcohol or drug abuse patient.[facility], [place]In the event this information is protected by the Federal Confidentiality of Alcohol and Drug Abuse Patient Records regulations: The Federal rules restrict any use of the information to criminally investigate or prosecute any alcohol or drug abuse patient.[facility], [place]In the event this information is protected by the Federal Confidentiality of Alcohol and Drug Abuse Patient Records regulations: The Federal rules restrict any use of the information to criminally investigate or prosecute any alcohol or drug abuse patient.[facility] [place] Care Teams (unrecognized sec tion and content) Acquisitions Assistant Relationship Specialty Start Date End Date Tino Blake PCP - General Family Practice 12/08/16 Acquisitions Assistant Relationship Specialty Start Date End Date Tino Blake PCP - General Family Practice 12/08/16 Acquisitions Assistant Relationship Specialty Start Date End Date Tino Blake PCP - General Family Practice 12/08/16 Acquisitions Assistant Relationship Specialty Start Date End Date Tino Blaek PCP - General Family Practice 12/08/16 Acquisitions Assistant Relationship Specialty Start Date End Date Tino Blake PCP - General Family Practice 12/08/16 Acquisitions Assistant Relationship Specialty Start Date End Date Tino Blake PCP - General Family Practice 12/08/16 Acquisitions Assistant Relationship Specialty Start Date End Date Tino Blake PCP - General Family Practice 12/08/16 Acquisitions Assistant Relationship Specialty Start Date End Date Tino Blake PCP - General Family Practice 12/08/16 Acquisitions Assistant Relationship Specialty Start Date End Date Tino Blake PCP - General Family Practice 12/08/16 Acquisitions Assistant Relationship Specialty Start Date End Date Tino Blake PCP - General Family Practice 12/08/16 Acquisitions Assistant Relationship Specialty Start Date End Date Tino Blake PCP - General Family Medicine 12/08/16 Acquisitions Assistant Relationship Specialty Start Date End Date Tino Blake PCP - General Family Medicine 12/08/16 Acquisitions Assistant Relationship Specialty Start Date End Date Hayden, Tino Óscar PCP - General Family Medicine 12/08/16 Acquisitions Assistant Relationship Specialty Start Date End Date Tino Blake PCP - General Family Medicine 12/08/16 Acquisitions Assistant Relationship Specialty Start Date End Date Tino Blake PCP - General Family Medicine 12/08/16 Acquisitions Assistant Relationship Specialty Start Date End Date Tino Blake PCP - General Family Medicine 12/08/16 Acquisitions Assistant Relationship Specialty Start Date End Date Tino Blake PCP - General Family Medicine 12/08/16 Acquisitions Assistant Relationship Specialty Start Date End Date Tino Blake PCP - General Family Medicine 12/08/16 Acquisitions Assistant Relationship Specialty Start Date End Date Tino Blake PCP - General Family Medicine 12/08/16 Acquisitions Assistant Relationship Specialty Start Date End Date Tino Blake PCP - General Family Medicine 12/08/16 Acquisitions Assistant Relationship Specialty Start Date End Date Tino Blake PCP - General Family Medicine 12/08/16 Acquisitions Assistant Relationship Specialty Start Date End Date Tino Blake PCP - General Family Medicine 12/08/16 Acquisitions Assistant Relationship Specialty Start Date End Date Tino Blake PCP - General Family Medicine 12/08/16 Acquisitions Assistant Relationship Specialty Start Date End Date Tino Blake PCP - General Family Medicine 12/08/16 Acquisitions Assistant Relationship Specialty Start Date End Date DilworthTino mejia PCP - General Family Medicine 12/08/16 Acquisitions Assistant Relationship Specialty Start Date End Date DilworthTino mejia PCP - General Family Medicine 12/08/16 Acquisitions Assistant Relationship Specialty Start Date End Date Tino Blake PCP - General Family Medicine 12/08/16 Acquisitions Assistant Relationship Specialty Start Date End Date Tino Blake PCP - General Family Medicine 12/08/16 Acquisitions Assistant Relationship Specialty Start Date End Date DilworthTino mejia PCP - General Family Medicine 12/08/16 Acquisitions Assistant Relationship Specialty Start Date End Date Tino Blake PCP - General Family Medicine 12/08/16 Acquisitions Assistant Relationship Specialty Start Date End Date DilworthTino mejia PCP - General Family Medicine 12/08/16 Acquisitions Assistant Relationship Specialty Start Date End Date Tino Blake PCP - General Family Medicine 12/08/16 Acquisitions Assistant Relationship Specialty Start Date End Date Tino Blake PCP - General Family Medicine 12/08/16 Acquisitions Assistant Relationship Specialty Start Date End Date Tino Blake PCP - General Family Medicine 12/08/16 Acquisitions Assistant Relationship Specialty Start Date End Date Tino Blake PCP - General Family Medicine 12/08/16 Acquisitions Assistant Relationship Specialty Start Date End Date Tino Blake PCP - General Family Medicine 12/08/16 Acquisitions Assistant Relationship Specialty Start Date End Date Tino Blake PCP - General Family Medicine 12/08/16 Acquisitions Assistant Relationship Specialty Start Date End Date Tino Blake PCP - General Family Medicine 12/08/16 Acquisitions Assistant Relationship Specialty Start Date End Date Tino Blake MD PCP - General Family Medicine 12/08/16 Acquisitions Assistant Relationship Specialty Start Date End Date Tino Blake MD PCP - General Family Medicine 12/08/16 Acquisitions Assistant Relationship Specialty Start Date End Date Tino Blake MD PCP - General Family Medicine 12/08/16 Acquisitions Assistant Relationship Specialty Start Date End Date Tino Blake MD PCP - General Family Medicine 12/08/16 Acquisitions Assistant Relationship Specialty Start Date End Date Tino Blake MD PCP - General Family Medicine 12/08/16 Acquisitions Assistant Relationship Specialty Start Date End Date Tino Blake MD PCP - General Family Medicine 12/08/16 Acquisitions Assistant Relationship Specialty Start Date End Date Tino Blake MD PCP - General Family Medicine 12/08/16 Acquisitions Assistant Relationship Specialty Start Date End Date Tino Blake MD PCP - General Family Medicine 12/08/16 Acquisitions Assistant Relationship Specialty Start Date End Date Tino Blake MD PCP - General Family Medicine 12/08/16 Acquisitions Assistant Relationship Specialty Start Date End Date Tino Blake MD PCP - General Family Medicine 12/08/16 Acquisitions Assistant Relationship Specialty Start Date End Date Tino Blake MD PCP - General Family Medicine 12/08/16 Acquisitions Assistant Relationship Specialty Start Date End Date Tino Blake MD PCP - General Family Medicine 12/08/16 Acquisitions Assistant Relationship Specialty Start Date End Date Tino Blake MD PCP - General Family Medicine 12/08/16 Acquisitions Assistant Relationship Specialty Start Date End Date Tino Blake MD PCP - General Family Medicine 12/08/16 Acquisitions Assistant Relationship Specialty Start Date End Date Tino Blake MD PCP - General Family Medicine 12/08/16 Acquisitions Assistant Relationship Specialty Start Date End Date Tino Blake MD PCP - General Family Medicine 12/08/16 Acquisitions Assistant Relationship Specialty Start Date End Date Tino Blake MD PCP - General Family Medicine 12/08/16 Acquisitions Assistant Relationship Specialty Start Date End Date Tino Blake MD PCP - General Family Medicine 12/08/16 Acquisitions Assistant Relationship Specialty Start Date End Date Tino Blake MD PCP - General Family Medicine 12/08/16 Acquisitions Assistant Relationship Specialty Start Date End Date Tino Blake MD PCP - General Family Medicine 12/08/16 Acquisitions Assistant Relationship Specialty Start Date End Date Tino Blake MD PCP - General Family Medicine 12/08/16 Acquisitions Assistant Relationship Specialty Start Date End Date Madhu Voss MD [address] [place] [address] PCP - General Family Medicine 04/28/23 Niya Santiago NP [address] [place] [address] Nurse Practitioner Family Medicine 04/28/23 INFORMATION SOURCE (unrecogn ized section and content) DATE CREATED AUTHOR 07/13/2021 [facility] DATE CREATED AUTHOR AUTHOR'S ORGANIZ ATION 07/05/2022 [facility] DATE CREATED AUTHOR AUTHOR'S ORGANIZ ATION 05/04/2023 [facility] d[facility] DATE CREATED AUTHOR AUTHOR'S ORGANIZ ATION 08/19/2023 [facility] In[facility] Administered Medications - up to 3 [...] BE BASED ON THE PRIMARY CLINICAL RECORDS. [employer] [facility]. provides no warranty or guarantee of the accuracy or completeness of information in this document.
--- NOTE | 2023-12-26 04:27 | PC.NURSE ---
PT HAS HISTORY OF RA. PT STATES RA OUT OF STEROIDS AND NOT IS HAVING A FLARE-UP BILAT. HAND AND FEET PAIN AND SWELLING. HANDS WORSE THAN FEET
--- NOTE | 2023-12-26 04:54 | ED_ITS ---
HPI HPI - General Adult General Chief complaint: Extremity Problem, Nontraumatic Stated complaint: UE PAIN Time Seen by Provider: 12/26/23 04:21 History of Present Illness HPI narrative: 38-year-old female to the emergency department with chief complaint of RA flare. Patient reports she has rheumatoid arthritis in her hands and her feet. She sees a director marketing analytics in [place]. She recently moved to the area and has not been able to see her director marketing analytics in some time. She is supposed to get infusions of a biologic which she has not gotten. This is her second flare since moving to the area. She is hoping that she can get her infusion scheduled at our infusion center here at [facility]. She is otherwise at her baseline health. No injuries. She denies history of diabetes. She reports steroids and Kenalog typically work. Related Data Home Medications ?Medication ?Instructions ?Recorded ?Confirmed buprenorphine 8 mg-naloxone 2 mg 1 tab sublingual DAILY 08/07/22 08/14/23 sublingual tablet gabapentin 600 mg tablet 600 mg PO Q8H 08/07/22 08/14/23 leflunomide 10 mg tablet 10 mg PO Q24H 08/07/22 08/14/23 buprenorphine 8 mg-naloxone 2 mg 1 film sublingual Q24H 04/13/23 06/01/23 sublingual film lisdexamfetamine 50 mg capsule 50 mg PO Q24H 04/13/23 08/14/23 (Vyvanse) Previous Rx's ?Medication ?Instructions ?Recorded prednisone 20 mg tablet 40 mg (2 x 20 mg) PO DAILY 3 days 12/26/23 #6 tabs Allergies Allergy/AdvReac Type Severity Reaction Status Date / Time No Known Drug Allergies Allergy Verified 12/26/23 04:17 Opioid HPI Opioid Management Most Recent Opioid Data: Last Pain Scale 5 11/16/23 11:20 11/16/23 Review of Systems ROS Status of ROS 10 or more systems reviewed and unremark able except as noted in history and below PFSH PFSH Social History Smoking status: Never smoker Little interest or pleasure in doing things: not at all Feeling down, depressed, or hopeless: not at all Exam Narrative Exam Narrative: VITALS: I have reviewed the triage vital signs. GENERAL: Well developed, well appearing adult in no acute distress. NEURO: Alert and oriented. Moves all extremities. Face is symmetric and expressive. EYES: PERRL. No scleral icterus or conjunctival injection. No discharge. HENT: Normocephalic, atraumatic. Hearing is grossly intact. Nares grossly patent and without discharge. Mucous membranes moist. NECK: No JVD. Patient moves neck without restriction. EXTREMITIES: Symmetric muscle bulk. No joint swelling. No clubbing, cyanosis, or deformity. SKIN: Warm and dry. Normal turgor. No rash or lesions appreciated. PSYCH: Mood, affect, and interaction is appropriate to the setting. Constitutional Vital Signs, click to edit/add: Last Vital Signs Temp 97.7 F 12/26/23 04:17 Pulse 88 12/26/23 04:17 Resp 16 12/26/23 04:17 BP 109/77 12/26/23 04:17 Pulse Ox 97 12/26/23 04:17 O2 Del Method Room Air 12/26/23 04:17 Course Vital Signs Vital signs: Vital Signs Temperature 97.7 F 12/26/23 04:17 Pulse Rate 88 12/26/23 04:17 Respiratory Rate 16 12/26/23 04:17 Blood Pressure 109/77 12/26/23 04:17 Pulse Oximetry 97 12/26/23 04:17 Oxygen Delivery Method Room Air 12/26/23 04:17 Temperature 97.7 F 12/26/23 04:17 Pulse Rate 88 12/26/23 04:17 Respiratory Rate 16 12/26/23 04:17 Blood Pressure 109/77 12/26/23 04:17 Pulse Oximetry 97 12/26/23 04:17 Oxygen Delivery Method Room Air 12/26/23 04:17 Medical Decision Making [facility] Narrative Medical decision making narrative: Well-appearing 38-year-old female to the emergency department rheumatoid arthritis flare. Vital stable, the patient is afebrile. Unremarkable exam. Kenalog injection given. Prednisone prescription given. She will follow-up with her director marketing analytics. Discussed the importance of DMARDs and not relying on steroids due to the long-term effects. She is agree with this plan. Return precautions were discussed. All questions were answered. The patient was discharged home Medical Records Medical records reviewed: Yes I reviewed the patient's medical records Discharge Plan Discharge Chief Complaint: Extremity Problem, Nontraumatic Clinical Impression: Rheumatoid arthritis flare Patient Disposition: Home, Self-Care Time of Disposition Decision: 04:48 Condition: Good Mode of Transportation: Private Vehicle Prescriptions / Home Meds: New prednisone 20 mg tablet 40 mg PO DAILY 3 Days Qty: 6 0RF No Action gabapentin 600 mg tablet 600 mg PO Q8H leflunomide 10 mg tablet 10 mg PO Q24H buprenorphine-naloxone 8-2 mg tablet, sublingual 1 tab sublingual DAILY lisdexamfetamine [Vyvanse] 50 mg capsule 50 mg PO Q24H buprenorphine-naloxone 8-2 mg film 1 film sublingual Q24H Print Language: Wallisian Additional Instructions: Call the office of your primary care doctor to arrange for follow-up within the above-stated timeframe. Your ED visit was focused on your acute issue and does not replace primary care. You should review your labs, imaging, and diagnoses from this ED visit with your primary care physician. There may be non-emergent/ incidental findings that need further evaluation. You should review your vital signs including blood pressure with your PCP. If you were prescribed medications you should discuss possible side-effects and drug interactions with your pharmacist. Call 911 or go to the nearest Emergency Department if you develop any new or worsening symptoms. Follow-up with your director marketing analytics Referrals: Niya Santiago NP [Primary Care Provider] - 1 week
[2023-12-26] MEDS: TRIAMCINOLONE ACETONIDE 40 MG/ML VIAL IM (05:05)
[2023-12-26] MEDS: PREDNISONE 20 MG TABLET 40 MG PO (05:05)
== END 2023-12-26 05:10 | disposition home or self-care (01) ==
PROVIDERS: Emergency Provider Student in an Organized Health Care Education/Training Program; PCP Nurse Practitioner
DX: M06.9 Rheumatoid arthritis, unspecified (principal)
CPT/HCPCS: 96372; 99284; J3301; J7512

== ENCOUNTER 2024-03-01 19:50 | Outpatient (REF) | payer MEDICAID, SELFPAY | END 2024-03-01 19:51 | disposition home or self-care (01) | LOC: LAB 19:50 | PROVIDERS: PCP Nurse Practitioner; Visit Provider Nurse Practitioner | DX: Z01.419 Encounter for gynecological examination (general) (routine) without abnormal findings (principal) | CPT/HCPCS: 87624; 88175 ==

== ENCOUNTER 2024-03-23 13:46 | Outpatient (OUT) | payer MEDICAID, SELFPAY ==
--- NOTE | 2024-03-23 13:48 | MM_ITS ---
Patient Name: ERIKA HURLEY MR#: [id number] : 1985 Exam Date: 03/23/2024 Ordering Doctor: ANTHONY Santiago CNP RADIOLOGY REPORT PROCEDURE: MM TOMOSYNTHESIS SCREENING BI COMPARISON: None. INDICATIONS: Screening Calculator Name NCI Breast Cancer Risk Assessment Tool 5 Year Breast Cancer Risk 0.40% Lifetime Breast Cancer Risk 7.30% Personal Breast Cancer No Personal Ovarian Cancer No Treatments None Family Cancers None LOCATION: [facility] BREAST COMPOSITION: The breasts are heterogeneously dense,which may obscure small masses. FINDINGS: DIAGNOSTIC CATEGORY 1--NEGATIVE. RIGHT BREAST: No significant suspicious finding. LEFT BREAST: No significant suspicious finding. RECOMMENDATIONS: ROUTINE MAMMOGRAM AND CLINICAL EVALUATION IN 12 MONTHS. PLEASE NOTE: A NORMAL MAMMOGRAM DOES NOT EXCLUDE THE POSSIBILITY OF BREAST CANCER. A CLINICALLY SUSPICIOUS PALPABLE LUMP SHOULD BE BIOPSIED. Dictated by: Duncan Aaron M.D. on 03/23/2024 at 16:21 Approved by: Duncan Aaron M.D. on 03/23/2024 at 16:24
== END 2024-03-23 13:47 | disposition home or self-care (01) ==
LOC: MAMMO 13:46
PROVIDERS: PCP Nurse Practitioner; Visit Provider Nurse Practitioner
DX: Z12.31 Encounter for screening mammogram for malignant neoplasm of breast (principal)
CPT/HCPCS: 77063; 77067

== ENCOUNTER 2024-05-24 19:11 | Emergency (ER) | payer MEDICAID, SELFPAY ==
[2024-05-24 19:16] VITALS: BP 116/93; PULSE 88; TEMP 36.7; O2SAT 99; BMI 27.5
--- OUTSIDE RECORDS SUMMARY | 2024-05-24 19:17 | XMS_ITS | CCD ---
Author Organization [facility] Care Team Providers Care Jack Prizer Name Role Phone Unavailable Primary Care Provider Unavailjason e Tino Blake Primary Care Provider ALEX REINOSO Attending Unavailable Tino Blake Primary Care Provider Tino Blake Primary Care Provider Tino Blake [...] e RIMMA REIS Consulting Unavailable Hayden CID, Tino Doty Primary Care Provider Hayden CID, Tino Doty Primary Care Provider Madhu Voss MD Primary Care Provider Aichholz INTRANET SPECIALIST, Nyia Unavailable Aichholz LINE ANALYST, Niya Torres Primary Care Provider AICHHOLZ, NIYA Attending Unavailable AICHHOLZ, NIYA Attending Unavailable AICHHOLZ, NIYA Attending Unavailable AICHHOLZ, NIYA Attending Unavailable AICHHOLZ, NIYA Attending Unavailable AICHHOLZ, NIYA Attending Unavailable KIMBERLY, CRAIG Attending Unavailable HAYDEN, TINO DOTY Primary Care Unavaila ble AICHHOLZ, NIYA IRLANDA Primary Care Unavailable HAYDEN, TINO DOTY [facility] Unavaila ble FARIBA HILL Attending Unavailable TINO BLAKE [facility] Unavaila ble [facility] Unavaila ble Allergies Allergy Classification Reported Allergen(s) Allergy Type Date of Onset Reaction(s) Facility (20 sources) inFLIXimab; Translations: [INFLIXIMAB-AXXQ ] Drug Allergy 10-22-2022 Anaphylaxis [facility] (16 sources) inFLIXimab Drug Allergy 10-22-2022 Anaphylaxis [facility] [...] mg from all sources in 24 hours. [id number] 200 actuat albuterol 0.09 mg/actuat metered dose inhaler (20 sources) beta2-Adrenergic Agonist Start: 12-20-2023 End: 05-04-2024 take 2 puff(s) by inhalation every six hours for wheezing albuterol HFA 90 mcg/act inhaler Indications: Wheezing Inhale 2 puffs every 6 (six) hours if needed for wheezing or shortness of breath 18 g 04/04/2024 05/04/2024 Active Start: 10-21-2023 End: 11-20-2023 take 2 puff(s) by inhalation every six hours for wheezing albuterol HFA (Ventolin HFA) 90 mcg/act inhaler Indications: Wheezing Inhale 2 puffs every 6 (six) hours if needed for wheezing 18 g 1 10/21/2023 11/20/2023 Active Start: 05-26-2023 take 2 puff(s) by in halation every four hours as needed for wheezing albuterol HFA (PROVENTIL HFA, VENTOLIN HFA) 90 mcg/actuation inhaler Indications: Wheezing Inhale 2 Puffs as instructed every 4 hours as needed for wheezing/shortness of breath. 6.7 g 05/26/2023 Active Start: 05-26-2023 End: 05-26-2023 albuterol [...] 4 hours 360 mL 0 09/15/2020 Active albuterol 108 (90 Base) MCG/ACT inhaler (3 sources) End: 10-21-2023 take 2 puff(s) by inhalation every six hours for wheezing albuterol 108 (90 Base) MCG/ACT inhaler Inhale 2 puffs every 6 (six) hours if needed for wheezing or shortness of breath 10/21/2023 Discontinued (Therapy completed) take 2 puff(s) by in halation every six hours for wheezing albuterol 108 (90 Base) MCG/ACT inhaler Inhale 2 puffs every 6 (six) hours if needed for wheezing or shortness of breath Active amoxicillin 875 mg / clavulanate 125 mg oral tablet (2 sources) Penicillin-class Antibacterial Start: 10-21-2023 End: 10-31-2023 take 1 tablet by mouth in the morning amoxicillin-clavulanate (Augmentin) 875-125 MG tablet Indications: Subacute maxillary sinusitis Take 1 tablet (875 mg) by mouth in the morning and 1 tablet (875 mg) before bedtime. Do all this for 10 days. Take with food. 20 tablet 10/21/2023 10/31/2023 Active benzocaine 200 mg/ml / menthol 5 [...] times daily 30 ampule 0 09/15/2020 Active 60 actuat budesonide 0.08 mg/actuat / formoterol fumarate 0.0045 mg/actuat metered dose inhaler (2 sources) Corticosteroid, beta2-Adrenergic Agonist Start: 04-26-2024 End: 05-26-2024 take 2 puff(s) by inhalation in the morning budesonide-formoterol (Symbicort) 80-4.5 MCG/ACT inhaler Indications: Wheezing Inhale 2 puffs in the morning and 2 puffs before bedtime. Rinse mouth with water after use to reduce aftertaste and incidence of candidiasis. Do not swallow.. 10.2 g 2 04/26/2024 05/26/2024 Active buprenorphine 8 mg / naloxone 2 mg sublingual film (20 sources) Partial Opioid Agonist, Opioid Antagonist Buprenorphine HCl-Naloxone HCl (Suboxone) 8-[address] 2 Film under the tongue in the morning. Active End: 05-26-2023 buprenorphine-naloxone (SUBO XONE) 8-2 mg film Dissolve under the tongue once daily. Prescribed by outside physician 0 05/26/2023 Discontinued Comment on above: Dissolve under the t ongue once daily. Prescribed by outside physician buprenorphine HCl/naloxone HCl (BUPRENORPHINE-NALOXONE BUCCAL) (11 sources) Start: 08-07-2022 buprenorphine HCl/naloxone HCl (BUPRENORPHINE-NALOXONE BUCCAL) Buprenorphine-Naloxone Active 1 FILM SL Q24H April 13, 2023 12:00am 08/07/2022 Active Start: 08-07-2022 buprenorphine HCl/naloxone HCl (BUPRENORPHINE-NALOXONE BUCCAL) Buprenorphine-Naloxone Active 1 FILM SL Q24H April 13, 2023 12:00am 0 08/07/2022 Active Comment on above: Buprenorphine-Naloxo ne Active 1 FILM SL Q24H April 13, 2023 12:00am 1 ml carboprost 0.25 mg/ml injection (1 source) Prostaglandin Analog Start: 2019 carboprost (HEMABATE) injection 250 mcg cephalexin 500 mg oral capsule (1 source) Cephalosporin Antibacterial Start: 2019 End: 2019 take 1 capsule by mouth four times daily cephALEXin (KEFLEX) 500 MG capsule Take 1 capsule by mouth 4 times daily for 7 days 28 capsule 0 05/12/2019 05/19/2019 Active cetirizine hydrochloride 10 mg oral tablet (15 sources) Histamine-1 Receptor Antagonist Start: 2023 End: 2023 take 1 tablet by mouth once daily cetirizine (ZYRTEC) 10 mg tablet Indications: Wheezing Take 1 tablet by mouth once daily. 30 tablet 05/26/2023 Active Comment on above: Take 1 tablet by [facility] once daily. cholecalciferol 0.025 mg oral capsule (20 sources) Vitamin D Start: 2021 take 2 capsules by mouth once daily [...] daily. clobetasol propionate 0.5 mg/ml topical cream (14 sources) Corticosteroid Start: 2023 End: 2023 clobetasol (TEMOVATE) 0.05 % cream APPLY THIN LAYER TO ELBOW REGION TWICE DAILY FOR 14 DAYS 03/11/2023 Active Comment on above: APPLY THIN [...] 20 mg/ml oral suspension (1 source) Uncompetitive C-bngylh-W-aspartate Receptor Antagonist, Sigma-1 Agonist Start: 2020 End: [...] Oral, EVERY 8 HOURS, First dose on 07/12/19 at 1500 Do not crush or break. [...] Skin, nipple discomfort, Starting Wed07/12/19 at 1354, lisdexamfetamine dimesylate 50 mg oral capsule (20 sources) Central Nervous System Stimulant Start: 07-02-2023 End: 07-25-2024 lisdexamfetamine (Vyvanse) 50 MG capsule Indications: ADHD (attention deficit hyperactivity disorder), combined type (CMS/HCC) Take 1 capsule (50 mg) by mouth in the morning. Do not start before June 25, 2024. 30 capsule 06/25/2024 07/25/2024 Active Start: 01-11-2023 End: 05-26-2023 take 1 capsule by mouth once VYVANSE 50 mg capsule Vinicio e 1 capsule by mouth every afternoon. 0 01/11/2023 05/26/2023 Discontinued Start: 10-08-2022 End: 01-20-2023 take 1 capsule by mouth once VYVANSE 40 mg capsule Vinicio e 1 capsule by mouth every afternoon. 0 10/08/2022 01/20/2023 Discontinued Comment on above: Take 1 capsule by [facility] every afternoon. Miconazole (1 source) Azole Antifungal Start: 12-04-19 End: 12-07-19 Miconazole Nitrate Applicator (MICONAZOLE 3 APPLICATOR) 200 & 2 MG-% (9GM) KIT Place 1 applicator vaginally nightly for 3 days Yeast infection in . 1 kit 0 12/03/2018 12/06/2018 Active miSOPROStol 0.1 mg oral tablet (1 source) Prostaglandin E1 Analog Start: 07-11-19 misoprostol (CYTOTEC) tablet 900 mcg nabumetone 750 mg oral tablet (15 sources) Nonsteroidal Anti-inflammatory Drug Start: 08-23-19 End: 10-21-19 nabumetone (RELAFEN) 750 mg tablet Take by mouth. 08/22/2022 Active Comment on above: Take 750 mg by mouth twice daily as needed. Take by mouth. ondansetron 4 mg disintegrating oral tablet (20 sources) Serotonin-3 Receptor Antagonist Start: 12-17-19 End: 10-31-19 take 1 tablet by mouth every eight hours as needed for nausea ondansetron orally disintegrating (ZOFRAN ODT) 4 mg disintegrating tablet DISSOLVE 1 TABLET BY MOUTH EVERY 8 HOURS NEEDED FOR NAUSEA 12/16/2022 Active End: 10-21-2023 take 1 tablet by mouth every six hours as needed for nausea and vomiting ondansetron ODT (Zofran-ODT) 4 MG disintegrating tablet Take 4 mg by mouth every 6 (six) hours if needed for nausea or vomiting. 10/21/2023 Discontinued (Reorder) Comment on above: DISSOLVE 1 TABLET BY MOUTH EVERY 8 HOURS NEEDED FOR NAUSEA oseltamivir 75 mg oral capsule (1 source) Neuraminidase Inhibitor Start: 0 End: 0 take 1 capsule by mouth twice daily oseltamivir (TAMIFLU) 75 MG capsule Indications: Influenza Take 1 capsule by mouth 2 times daily for 5 days 10 capsule 0 04/04/2019 04/09/2019 Active predniSONE 20 mg oral tablet (20 sources) Start: End: take 1 tablet by mouth in the morning predniSONE (Deltasone) 20 MG tablet Indications: Rheumatoid arthritis, unspecified (CMS/HCC) Take 1 tablet (20 mg) by mouth in the morning and 1 tablet (20 mg) before bedtime. Do all this for 5 days. Take with food. 20 tablet 03/01/2024 03/06/2024 Active Start: 05-26-2023 End: 05-31-2023 take 2 tablets by mouth once daily [...] Comment on above: Take [facility]. With breakfast for 2 weeks . No other nsaids. Take 2 tablets by [facility] once daily for 14 days, THEN 1 tablet once daily for 14 days. With breakfast. Then stop. No other nsaids.. Take 4 tablets by [facility] once daily for 7 days, THEN 3 tablets once daily for 7 days, THEN 2 tablets once daily for 7 days, THEN 1 tablet once daily for 7 days. With breakfast. No other nsaids. Take 2 tablets by [facility] once daily for 5 days. Respiratory [...] chloride flush 0.9 % injection 10 mL 0.9 ml tocilizumab 180 mg/ml prefilled syringe (7 sources) Interleukin-6 Receptor Antagonist Start: 03-31-2024 inject 162 mg by subcutaneous injection every other week tocilizumab (ACTEMRA) 162 mg/0.9 mL subcutaneous injection Indications: Seropositive rheumatoid arthritis (HCC) Inject 162mg (1 syringe) subcutaneously every 2 weeks. 2 Each 3 03/31/2024 Active Start: 03-31-2024 tocilizumab (A ctemra) injection Inject 162 mg under the skin every 14 (fourteen) days 03/31/2024 Active triamcinolone acetonide 0.001 mg/mg topical ointment (20 sources) Corticosteroid Start: 10-08-2022 triamcinolone acetonide (KENALOG) 0.1 % ointment APPLY TWICE A DAY TO THE AFFECTED AREA OF THE ELBOW 10/08/2022 Active Comment on above: APPLY TWICE A DAY TO THE AFFECTED AREA OF THE ELBOW 24 hr venlafaxine 150 mg extended release oral capsule (20 sources) Serotonin and Norepinephrine Reuptake Inhibitor Start: 05-03-2023 End: 05-26-2024 take 1 capsule by mouth once daily venlafaxine ER (EFFEXOR XR) 150 mg 24 hr capsule TAKE 1 CAPSULE BY MOUTH DAILY. DO NOT CRUSH OR CHEW 05/03/2023 Active Start: 10-04-2022 End: 05-26-2023 take [...] on above: TAKE 1 TABLET BY JUDE TH 3 TIMES A DAY FOR ANXIETY leflunomide 10 mg oral tablet (20 sources) Antirheumatic Agent Start: 07-16-19 End: 03-31-19 take 1 tablet by mouth once daily leflunomide (Arava) 10 MG tablet Take 10 mg by mouth Daily 05/25/2023 01/25/2024 Discontinued (Therapy completed) Start: 10-29-2021 End: 03-09-2022 take 1 tablet by mouth once daily leflunomide (ARAVA) 10 mg tablet Indications: Seropositive rheumatoid arthritis (HCC) TAKE 1 TABLET BY MOUTH EVERY DAY 30 tablet 3 03/09/2022 Active Comment on above: Take 1 tablet by jude [facility] once daily. TAKE 1 TABLET BY JUDE TH EVERY DAY misoprostol (CYTOTEC) pre-split tablet TABS 25 mcg [...] Translations: [Other specified counseling] Episodic Anxiety disorders (20 sources) Anxiety; Translations: [Anxiety disorder, unspecified] Onset: 3 01-25-2023 Chronic Attention-deficit, conduct, and disruptive behavior disorders (20 sources) Attention deficit hyperactivity disorder, combined type; Translations: [Attention-deficit hyperactivity disorder, combined type] Onset: 3 01-25-2023 Chronic Diseases of white blood cells (20 sources) Neutropenia; Translations: [Neutropenia, unspecified] Onset: 4 10-21-2023 Chronic Hypertension complicating ; childbirth and the puerperium (14 sources) Hypertension complicating , childbirth and the puerperium; Translations: [Hypertension complicating ] Onset: 9 11-24-2018 Chronic Hypertension complicating ; childbirth and the puerperium (1 source) Hypertension complicating ; Translations: [Hypertension affecting in first trimester] Onset: 9 11-24-2018 Mood disorders (18 sources) Mild depression; Translations: [Mild depression] Onset: 4 05-03-2023 Chronic Mycoses (1 source) Mycosis; Translations: [Yeast infection] Episodic Nausea and vomiting (19 sources) Nausea; Translations: [Nausea] Onset: 4 10-21-2023 Episodic Nutritional deficiencies (20 sources) Vitamin D deficiency; Translations: [Vitamin D deficiency, unspecified] Onset: 8 04-23-2017 Chronic Other aftercare (12 sources) Patient encounter status; Translations: [Encounter for therapeutic drug level monitoring] Episodic Other aftercare (2 sources) Taking high risk medication; Translations: [Other emt intermediate (current) drug therapy] Episodic Other connective tissue disease (5 sources) Synovitis; Translations: [Synovitis and tenosynovitis, unspecified] 10-22-2022 Episodic Other connective tissue disease (1 source) Pain in right foot; Translations: [Pain in right foot] 01-20-2023 Episodic Other ear and sense organ disorders (16 sources) Hearing loss in left ear; Translations: [Unspecified hearing loss, left ear] Onset: 4 05-03-2023 Chronic Other inflammatory condition of skin (16 sources) Psoriasis; Translations: [Psoriasis, unspecified] Onset: 4 03-11-2023 Chronic Other lower respiratory disease (20 sources) Wheezing; Translations: [Wheezing] Onset: 4 05-26-2023 Episodic Other nervous system disorders (16 sources) Carpal tunnel syndrome; Translations: [Carpal tunnel syndrome, unspecified upper limb] Onset: 4 05-03-2023 Chronic Other nervous system disorders (1 source) Carpal tunnel syndrome of right wrist; Translations: [Carpal tunnel syndrome of right wrist] Other and delivery including normal (10 sources) Normal ; Translations: [Term ] Onset: 0 Resolved: 0 07-13-2019 Episodic Other screening for suspected conditions (not mental disorders or infectious disease) (11 sources) Other specified abnormal findings of blood chemistry; Translations: [Anti-cyclic citrullinated peptide antibody positive] Onset: 8 12-19-2018 Episodic Other skin disorders (3 sources) Mass [...] (1 source) Right upper quadrant pain Episodic Attention-deficit, conduct, and disruptive behavior disorders (18 sources) Adult attention deficit hyperactivity disorder ; Translations: [Attention-deficit hyperactivity disorder, unspecified type] Onset: 01-25-2023 Resolved: 01-25-2024 07-22-2023 Chronic Contraceptive and procreative management (5 sources) Encounter [...] 12-30-2017 Episodic Other aftercare (1 source) Other emt intermediate (current) drug therapy; Translations: [OTH BLOOD SPLATTER ANALYST CURRENT DRUG THERAPY] Onset: 10-08-2021 Episodic Other [...] Episodic Other nutritional; endocrine; and metabolic disorders (20 sources) Overweight in adulthood with body mass index of 25 or more but less than 30; Translations: [Body mass index (BMI) 29.0-29.9, adult] Onset: 03-11-2023 03-11-2023 Episodic Other upper respiratory infections (20 sources) Nasopharyngitis; Translations: [Acute upper respiratory infection, unspecified] Onset: 08-18-2021 Resolved: 01-25-2024 10-21-2023 Episodic Residual codes; unclassified (20 sources) Tobacco user; Translations: [Tobacco use] Onset: 05-03-2023 Resolved: 04-26-2024 05-03-2023 Episodic Superficial injury; contusion (1 source) Contusion of left foot, initial encounter; Translations: [CONTUSION LEFT FOOT INITIAL ENC] Onset: 10-08-2021 Episodic Unclassified (1 source) COUGH, UNSPECIFIED; Translations: [COUGH, UNSPECIFIED] Onset: 08-15-2021 Viral infection (16 sources) Human papilloma virus infection; Translations: [Papillomavirus as the cause of diseases classified elsewhere] Onset: 05-03-2023 05-03-2023 Episodic Results Test Name Value Interpretation Reference Range Facility [facility] 05-10-2024 CNPN Telephone (SAMANTHAULN) LUDWIGANY GARCIA ([id number]) 1985 F Date Time Provider Department 05/10/24 CRAIG WADE During your visit today, we recorded the following information about you: Prema Santiago 05/10/2024 4:05 PM Signed Any is calling Craig Wade MD today to request her lab orders be faxed over to [facility] at Patient has been identified by name and birthdate. Duration of symptoms: N/A Person calling: self Call patient at: at home [phone] (home) [phone] (cell) Was an appointment scheduled: No Closing statement: Results or non-symptom based questions: Thank you for calling [facility], your call will be returned within the next business day. Craig Marmolejo MD 05/10/2024 4:27 PM Signed Labs were ordered in 03/2024. Thank you Shaheen Byrd MA 05/11/2024 7:12 AM Addendum fax provided is [facility] fax number, call to [facility] for lab fax([phone]) and orders faxed as requested. Allergies As of Date: 05/10/2024 Noted Allergy Reaction AVSOLA (INFLIXIMAB-AXXQ) 10/22/2022 10 - Anaphylaxis Comments: Adverse reaction, chest tightness, shortness of breath and trouble breathing Date Reviewed: 03/31/2024 Reviewed by: Luz Melgoza MA - Fully Assessed Reason for Visit: Patient Request [[id number]] Prescriptions as of 05/11/2024 - VYVANSE 50 mg capsule TAKE 1 CAPSULE BY MOUTH IN THE MORNING. DO NOT START BEFORE MARCH 25, 2024. - gabapentin (NEURONTIN) 600 mg tablet TAKE 1 TABLET BY MOUTH 3 TIMES A DAY FOR ANXIETY - tocilizumab (ACTEMRA) 162 mg/0.9 mL subcutaneous injection Inject 162mg (1 syringe) subcutaneously every 2 weeks. - buprenorphine HCl/naloxone HCl (BUPRENORPHINE-NALOXO NE BUCCAL) [...] EVERY 8 HOURS NEEDED FOR NAUSEA - triamcinolone acetonide (KENALOG) 0.1 % ointment APPLY TWICE A DAY TO THE AFFECTED AREA OF THE ELBOW - Cholecalciferol, Vitamin D3, (VITAMIN D) 25 mcg (1,000 unit) cap Take 2 capsules by mouth once daily. Problem List As Of Date 05/10/2024 Noted Resolved Vitamin D deficiency [E55.9] 04/23/2017 Cyclic citrullinated peptide (CCP) antibody pos*12/30/2017 Rheumatoid factor positive [R76.8] 12/30/2017 Seropositive rheumatoid arthritis (HCC) [M05.9] 12/30/2017 Smokes and motivated to quit [F17.200] 12/30/2017 Encounter Status:Closed by SHAHEEN BYRD on 05/11/[address] [facility] CNOVon 03-31-2024 CNOV Office Visit (MARK ) ANY LUDWIG ([id number]) 1985 F Date Time Provider Department 03/31/24 1:40 PM CRAIG WADE During your visit today, we recorded the following information about you: Pulse Blood pressure Weight Height 77/minute 115/70 73.7 kg 1.6 m Craig Wade MD 03/31/2024 3:23 PM Signed [facility] Outpatient [facility] Date of Service: 03/31/2024 Patient: Any Ludwig Medical Record: [id number] Primary Care Physician: Tino Blake MD, MD Referring Provider: No referring provider defined for this encounter. Last Rheumatology visit: 05/26/2023 (with Fariba Hill) Chief complaint: Consult (Dx ra.) and Pain (Ongoing bi-lateral hand pain.) History of Present Illness Any Ludwig is a 39 year old White female with medical history of ADD, seropositive rheumatoid arthritis, history of tobacco use, presents on 03/31/2024 for an in-person visit for evaluation of Consult (Dx ra.) and Pain (Ongoing bi-lateral hand pain.). She is currently taking leflunomide, tocilizumab. Any is both RF - 118 (04/22/2017) and CCP - 229 (04/22/2017) positive. Her most recent MAURICE was negative (04/22/2017). History of present illness Following in rheumatology clinic with Fariba Hill, previously with Dr. Moise . Initially seen in rheumatology clinic in 04/2017 for multiple joint pain. Reportedly diagnosed rheumatoid arthritis in 2012 by primary care physician in [place] however had not seen edger saw operator until 2018. She had multiple joint swelling with elbow nodule, rheumatoid factor and CCP came back positive, diagnosed seropositive nodular rheumatoid arthritis. G6PD was low so hydroxychloroquine was deferred. Started on leflunomide 20 mg daily 12/2017. Leflunomide was stopped 11/2022 due to liver enzyme elevation. Xeljanz was added around 02/2018 however she had difficulty obtaining due to insurance issues, she did take for about 30 days but could not continue. She did not like self injections, Actemra infusion was started 11/2022 that she continued until 05/2023 then could not continue due to transportation issues. She lost follow-up after 05/2023. Seen by me as new patient 03/2024-continues to have pain over wrists, shoulder Went to ER for flare 3 weeks ago was given steroids that helped She reports morning stiffness for about 45 minutes to 1 hour. Pain is worst in the morning and slightly better with activities. She thought she was scheduled for Actemra infusion today however her prior authorization had . Medications Xeljanz 2019 for 30 days Leflunomide 20 mg daily 12/2017, held during in 2021 then resumed 10 mg daily 10/2021 having another , stopped 11/2022 due to liver enzyme elevation Infliximab infusion 07/2021-02/2022- adverse reaction, chest pressure Hydroxychloroquine deferred due to low G6PD Methotrexate prior to seeing edger saw operator in 2017 did not help Actemra infusion 11/2022- 05/2023 Actemra subcutaneous 03/2024 Sed rate/CRP normal CBC unremarkable except hemoglobin 11.2 Creatinine 0.5 AST/ALT normal 04/2017 Rheumatoid factor 118 CCP 229 Radiograph right wrist 12/2017-3 mm subchondral lucency likely cyst in distal ulna Radiograph right knee 09/2017-large joint effusion Radiograph bilateral hands 04/2017-unremarkable Radiograph bilateral feet 04/2017-unremarkable Patient-Entered Data PAIN EVALUATION 03/31/2024 1349 Pain Level: 4 Pain Location: -- bi-lateral hands Description: Aching Duration Units: Years Frequency: Continuous PROMIS Assessments 04/26/2022 01/19/2023 06/10/2023 PROMIS Assessments Physical Health Percentile 22 Mental Health Percentile 19 Pain Score 3 Fatigue Percentile 14 Physical Function Percentile 14 14 RAPID 3 Diaz Activities of Daily Living No Data Dress self? - Get in and out of bed? - Walk outdoors? - Wash and dry body? - Get in and out of car? - RAPID 3 Disease Activity Weighed Score Levels: 0 - 1: Near Remission 1.3 - 2.0: Low Severity 2.3 - 4.0: Moderate Severity 4.3 - 10.0: High Severity 12/30/2017 03/24/2018 07/19/2018 RAPID-3 Weighed Score RAPID 3 Weighed Score 6.1 2.3 3.9 Review of Systems ROS RHEUMATOLOGY Fever: Denies Skin rash: Denies Dyspnea: Denies Cough : Denies Past Medical History No past medical history on file. Past Surgical History No past surgical history on file. Allergy ALLERGIES Allergen Reactions Avsola [Infliximab-* Anaphylaxis Adverse reaction, chest tightness, shortness of breath and trouble breathing Family History No family history on file. Social History Social History Tobacco Use Smoking status: Light Smoker Types: Cigarettes Start date: 04/22/2012 Smokeless tobacco: Never Tobacco comments: social smoker not everyday Substance Use Topics Alcohol use: No Drug use: No Current Medications Current Outp (more content not included)... Normal [facility] MM TOMOSYNTHESIS SCREENING B Ion 03-23-2024 [place] [address] Mammography Report Signed Patient: ANY LUDWIG MR#: [id number] : 1985 Acct:[id number] Age/Sex: 39 / F ADM Date: 03/23/24 Loc: MAMMO Attending Dr: Niya Santiago NP Ordering Physician: Niya Santiago NP Results: Date of Service: 03/23/24 Follow Up: Procedure(s): MM tomosynthesis screening BI Accession Number(s): [id number] cc: Niya Santiago NP Patient Name: ANY LUDWIG MR#: [id number] : 1985 Exam Date: 03/23/2024 Ordering Doctor: ANTHONY Santiago CNP RADIOLOGY REPORT PROCEDURE: MM TOMOSYNTHESIS SCREENING BI COMPARISON: None. INDICATIONS: Screening Calculator Name NCI Breast Cancer Risk Assessment Tool 5 Year Breast Cancer Risk 0.40% Lifetime Breast Cancer Risk 7.30% Personal Breast Cancer No Personal Ovarian Cancer No Treatments None Family Cancers None LOCATION: [facility] BREAST COMPOSITION: The breasts are heterogeneously dense,which may obscure small masses. FINDINGS: DIAGNOSTIC CATEGORY 1--NEGATIVE. RIGHT BREAST: No significant suspicious finding. LEFT BREAST: No significant suspicious finding. RECOMMENDATIONS: ROUTINE MAMMOGRAM AND CLINICAL EVALUATION IN 12 MONTHS. PLEASE NOTE: A NORMAL MAMMOGRAM DOES NOT EXCLUDE THE POSSIBILITY OF BREAST CANCER. A CLINICALLY SUSPICIOUS PALPABLE LUMP SHOULD BE BIOPSIED. Dictated by: Tereso Hernandez M.D. on 03/23/2024 at 16:21 Approved by: Tereso Hernandez M.D. on 03/23/2024 at 16:24 Dictated By: Tereso Hernandez M.D. Signed By: 03/23/24 1626 DD/ 1624 TD/TT: Cloth Checker: [facility] Radiology, Radiologist, MD - 03/23/2024 [place] [address] Mammography Report Signed Patient: ANY LUDWIG MR#: [id number] : 1985 Acct:[id number] Age/Sex: 39 / F ADM Date: 03/23/24 Loc: MAMMO Attending Dr: Niya Santiago NP Ordering Physician: Niya Santiago NP Results: Date of Service: 03/23/24 Follow Up: Procedure(s): MM tomosynthesis screening BI Accession Number(s): [id number] cc: Niya Santiago NP Patient Name: ANY LUDWIG MR#: [id number] : 1985 Exam Date: 03/23/2024 Ordering Doctor: ANTHONY Santiago CNP RADIOLOGY REPORT PROCEDURE: MM TOMOSYNTHESIS SCREENING BI COMPARISON: None. INDICATIONS: Screening Calculator Name NCI Breast Cancer Risk Assessment Tool 5 Year Breast Cancer Risk 0.40% Lifetime Breast Cancer Risk 7.30% Personal Breast Cancer No Personal Ovarian Cancer No Treatments None Family Cancers None LOCATION: [facility] BREAST COMPOSITION: The breasts are heterogeneously dense,which may obscure small masses. FINDINGS: DIAGNOSTIC CATEGORY 1--NEGATIVE. RIGHT BREAST: No significant suspicious finding. LEFT BREAST: No significant suspicious finding. RECOMMENDATIONS: ROUTINE MAMMOGRAM AND CLINICAL EVALUATION IN 12 MONTHS. PLEASE NOTE: A NORMAL MAMMOGRAM DOES NOT EXCLUDE THE POSSIBILITY OF BREAST CANCER. A CLINICALLY SUSPICIOUS PALPABLE LUMP SHOULD BE BIOPSIED. Dictated by: Tereso Hernandez M.D. on 03/23/2024 at 16:21 Approved by: Tereso Hernandez M.D. on 03/23/2024 at 16:24 Dictated By: Tereso Hernandez M.D. Signed By: 03/23/241625 DD/ 23 TD/TT: Cloth Checker: [facility] [employer] Radiology Study observation (narrative) [facility] [employer] MM TOMOSYNTHESIS SCREENING B IOrdered By: Radiologist Radiology on 03-23-2024 [facility] [employer] Work Phone: IGP,APTIMA HPV,AGE GDLNon AGE GDLN ACOG TESTING Note . [facility] [employer] Comment on above: TESTS RESULT FLAG UN ITS REF RANGE LAB Clinician Provided Cytology Information Source.............Cervix;Endocervix No. of containers..01 ThinPrep Vial Age Algo ACOG Valentine... FLAG LEGEND: L-Low Normal,H-High Normal,LL-Alert Low,HH-Alert High <-Panic Low,>-Panic High,A-Abnormal,AA-Critical Abnormal Performed at: 01 =G [address] [address] Francisca Stuart MD, HPV APTIMA Negative Negative [facility] Comment on above: This nucleic acid am plification test detects fourteen high- risk HPV types (16,18,31,33,35,39,45,51,52,56,58,59,66,68) without differentiation. Performed at: =G - [facility] [id number] Senior Assistant Manager: Francisca Stuart MD, Phone: [phone] Performed at: [facility] [address] [place] [id number] Senior Assistant Manager: Farshad Cruz MD, Phone: [phone] IGP, APTIMA HPV, RFX 16/18,45 Note . [facility] Comment on above: TESTS RESULT FLAG UN ITS REF RANGE LAB DIAGNOSIS: 02 NEGATIVE FOR INTRAEPITHELIAL LESION OR MALIGNANCY. THIS SPECIMEN WAS RESCREENED PART OF OUR STATISTICAL MACHINE MECHANIC PROGRAM. Specimen adequacy: 02 Satisfactory for evaluation. No endocervical component is identified. Performed by: 02 Aicha Hess, Tube Wrapper ([facility]) QC reviewed by: 02 Joshua Ornelas, Tube Wrapper ([facility]) . 02 Note: Note 03 The Pap smear is a screening test designed to aid in the detection of premalignant and malignant conditions of the uterine cervix. It is not a diagnostic procedure and should not be used as the sole means of detecting cervical cancer. Both false-positive and false-negative reports do occur. Test Methodology: Note 03 This liquid based ThinPrep(R) pap test was screened with the use of an image guided system. HPV Genotype Reflex Note 02 Criteria not met, HPV Genotype not performed. FLAG LEGEND: L-Low Normal,H-High Normal,LL-Alert Low,HH-Alert High <-Panic Low,>-Panic High,A-Abnormal,AA-Critical Abnormal Performed at: 02 [facility] [address] [place] [address] Farshad Cruz MD, 03 WB [facility] [address] [address] Francisca Stuart MD, [facility] CNPN Telephone ([place]) ANY LUDWIG ([id number]) 1985 F Date Time Provider Department 08/16/23 FARIBA HILL During your visit today, we recorded the following information about you: Yessy Gonzalez, VALORIE 08/16/2023 3:33 PM Signed Pt scheduled for [...] breathing Date Reviewed: 06/07/2023 Reviewed by: Fariba Hill APRN.LINE ANALYST - Fully Assessed Prescriptions as of 08/17/2023 [...] DEVI WAGNER on 08/17/[address] [facility] CNCOon 06-28-2023 CNCO Letter Text [facility] CNPNon 06-25-2023 CNPN Telephone ([place]) LUDWIGANY GARCIA ([id number]) 1985 F Date Time Provider Department 06/25/23 FARIBA HILL During your visit today, we recorded the following information about you: Sergio Yessy Ortiz 06/25/2023 10:16 AM Signed Called and LMOM for patient to call the office back so we can get her rescheduled from her appointment and Infusion on 06/23/2023 that she cancel. Please warm transfer to [facility] Allergies As of Date: 06/25/2023 Noted Allergy Reaction AVSOLA (INFLIXIMAB-AXXQ) 10/22/2022 10 - Anaphylaxis Comments: Adverse reaction, chest tightness, shortness of breath and trouble breathing Date Reviewed: 06/07/2023 Reviewed by: Fariba Hill, OIL WELL CABLE TOOL DRILLER.LINE ANALYST - Fully Assessed Prescriptions as of 06/25/2023 [...] Encounter Status:Closed by YESSY GALARZA on 06/25/23 [facility] SUNITA Telephone ([place]) ANY LUDWIG ([id number]) 1985 F Date Time Provider Department 05/28/23 FARIBA HILL During your visit today, we recorded the following information about you: Korin Puga RN 05/28/2023 3:26 PM Signed Call placed to patient to inquire how she is feeling [facility]. She states she is feeling better and has had no further issues. Jamse Hill CNP notified. Allergies As of Date: [...] Status:Closed by KORIN PUGA on 05/28/23 Normal [facility] 25(OH)D3 Sachinl-Rom 2023 25-hydroxyvitamin D3 [Mass/Vol] 29.2 ng/mL Low 31.0-80.0 [facility] Comment on above: Order Comment: Speci men Type: BLOOD SPECIMENOrdering Facility: [facility] Address: [address] [place] [address] [place] [address] Performed By: #### 1 989-3 ####[facility] LABCLIA [id number] [place] [address] [place] ALT SerPl-cCncon 05-26-2023 ALT [Catalytic activity/Vol] 17 U/L Normal 7-38 [facility] Comment on above: Order Comment: Speci men Type: BLOOD SPECIMENOrdering Facility: [facility] Address: [address] [place] [place] [address] Performed By: #### 1 742-6, 1919-09, CRET1, 1987-06 ####[facility] LABCLIA [id number] [place] [address] [place] ALT/SGPTon 05-26-2023 ALT [Catalytic activity/Vol] 17 U/L 7 - 38 U/L [facility] AST SerPl-cCncon 05-26-2023 AST [Catalytic activity/Vol] 21 U/L Normal 13-35 [facility] Comment on above: Order Comment: Speci men Type: BLOOD SPECIMENOrdering Facility: [facility] Address: [address] [place] [address] Performed By: #### 1 742-6, 1919-09, CRET1, 1987-06 ####[facility] LABCLIA [id number] [place] [address] [place] AST/SGOT BLDon 05-26-2023 AST [Catalytic activity/Vol] 21 U/L 13 - 35 U/L [facility] C-REACTIVE PROTEIN (CRP)on 0 05-26-2023 CRP [Mass/Vol] <0.9 mg/dL [facility] CBC W Auto Differential pane l (Bld)on 05-26-2023 Basophils (Bld) [#/Vol] 0.04 10*3/uL <0.11 k/uL [facility] Basophils/100 WBC (Bld) 0.7 % [facility] Differential cell count method Nom (Bld) Auto [facility] Eosinophils (Bld) [#/Vol] 0.43 10*3/uL <0.46 k/uL [facility] Eosinophils/100 WBC (Bld) 7.3 % [facility] Erythrocyte distribution width (RBC) [Ratio] 14.0 % 11.5 - 15.0 % [facility] Hematocrit (Bld) [Volume fraction] 34.2 % Low 36.0 - 46.0 % [facility] Hemoglobin (Bld) [Mass/Vol] 11.2 g/dL Low 11.5 - 15.5 g/dL [facility] Immature granulocytes (Bld) [#/Vol] <0.10 k/uL [facility] Immature granulocytes/100 WBC (Bld) 0.2 % [facility] Lymphocytes (Bld) [#/Vol] 3.83 10*3/uL 1.00 - 4.00 k/uL [facility] Lymphocytes/100 WBC (Bld) 65.2 % [facility] MCH (RBC) [Entitic mass] 27.3 pg 26.0 - 34.0 pg [facility] MCHC (RBC) [Mass/Vol] 32.7 g/dL 30.5 - 36.0 g/dL [facility] MCV (RBC) [Entitic vol] 83.4 fL 80.0 - 100.0 fL [facility] Monocytes (Bld) [#/Vol] 0.36 10*3/uL <0.87 k/uL [facility] Monocytes/100 WBC (Bld) 6.1 % [facility] Neutrophils (Bld) [#/Vol] 1.20 10*3/uL Low 1.45 - 7.50 k/uL [facility] Neutrophils/100 WBC (Bld) 20.5 % [facility] Nucleated RBC (Bld) [#/Vol] <0.01 k/uL [facility] Nucleated RBC/100 WBC (Bld) [Ratio] 0.0 /100 WBC [facility] Platelet mean volume (Bld) [Entitic vol] 11.3 fL 9.0 - 12.7 fL [facility] Platelets (Bld) [#/Vol] 172 10*3/uL 150 - 400 k/uL [facility] RBC (Bld) [#/Vol] 4.10 10*6/uL 3.90 - 5.2 0 m/uL [facility] WBC (Bld) [#/Vol] 5.87 10*3/uL 3.70 - 11. 00 k/uL [facility] Basophils (Bld) [#/Vol] 0.04 10*3/uL Normal <0.11 [facility] Comment on above: Order Comment: Speci men Type: BLOOD SPECIMENOrdering Facility: [facility] Address: [address] [place] [address] Performed By: #### 5 7021-8, 4536-7 ####[facility] LABCLIA [id number] [facility] [address] [place] Basophils/100 WBC (Bld) 0.7 % Normal [facility] Comment on above: Order Comment: Speci men Type: BLOOD SPECIMENOrdering Facility: [facility] Address: [address] [place] [place] [address] Performed By: #### 5 7021-8, 4536-7 ####[facility] LABCLIA [id number] [place] [address] [place] Differential cell count method Nom (Bld) Auto Normal [facility] Comment on above: Order Comment: Speci men Type: BLOOD SPECIMENOrdering Facility: [facility] Address: [address] [place] [address] Performed By: #### 5 7021-8, 7 ####[facility] LABCLIA [id number] [place] [address] [place] Eosinophils (Bld) [#/Vol] 0.43 10*3/uL Normal <0.46 [facility] Comment on above: Order Comment: Speci men Type: BLOOD SPECIMENOrdering Facility: [facility] Address: [address] [place] [address] Performed By: #### 5 7021-8, 4536-7 ####[facility] LABCLIA [id number] [place] [address] [place] Eosinophils/100 WBC (Bld) 7.3 % Normal [facility] Comment on above: Order Comment: Speci men Type: BLOOD SPECIMENOrdering Facility: [facility] Address: [address] [place] [address] Performed By: #### 5 7021-8, 4536-7 ####[facility] LABCLIA [id number] [place] [address] [place] Erythrocyte distribution width (RBC) [Ratio] 14.0 % Normal 11.5-15.0 [facility] Comment on above: Order Comment: Speci men Type: BLOOD SPECIMENOrdering Facility: [facility] Address: [address] [place] [address] Performed By: #### 5 7021-8, 7 ####[facility] LABIA [id number] [place] [address] [place] Hematocrit (Bld) [Volume fraction] 34.2 % Low 36.0-46.0 [facility] Comment on above: Order Comment: Speci men Type: BLOOD SPECIMENOrdering Facility: [facility] Address: [address] [place] [address] Performed By: #### 5 7021-8, 7 ####[facility] LABIA [id number] [place] [address] [place] Hemoglobin (Bld) [Mass/Vol] 11.2 g/dL Low 11.5-15.5 [facility] Comment on above: Order Comment: Speci men Type: BLOOD SPECIMENOrdering Facility: [facility] Address: [address] [place] [place] [address] Performed By: #### 5 7021-8, 7 ####[facility] LABIA [id number] [place] [address] [place] Immature granulocytes (Bld) [#/Vol] 10*3/uL Normal <0.10 [facility] Comment on above: Order Comment: Speci men Type: BLOOD SPECIMENOrdering Facility: [facility] Address: [address] [place] [address] Performed By: #### 5 7021-8, 7 ####[facility] LABCLIA [id number] [place] [address] [place] Immature granulocytes/100 WBC (Bld) 0.2 % Normal [facility] Comment on above: Order Comment: Speci men Type: BLOOD SPECIMENOrdering Facility: [facility] Address: [address] [place] [place] [address] Performed By: #### 5 7021-8, 4537-7 ####[facility] LABCLIA [id number] [place] [address] [place] Lymphocytes (Bld) [#/Vol] 3.83 10*3/uL Normal 1.00-4.00 [facility] Comment on above: Order Comment: Speci men Type: BLOOD SPECIMENOrdering Facility: [facility] Address: [address] [place] [place] [address] Performed By: #### 5 7021-8, 4536-7 ####[facility] LABIA [id number] [place] [address] [place] Lymphocytes/100 WBC (Bld) 65.2 % Normal [facility] Comment on above: Order Comment: Speci men Type: BLOOD SPECIMENOrdering Facility: [facility] Address: [address] [place] [address] Performed By: #### 5 7021-8, 7-7 ####[facility] LABIA [id number] [place] [address] [place] MCH (RBC) [Entitic mass] 27.3 pg Normal 26.0-34.0 [facility] Comment on above: Order Comment: Speci men Type: BLOOD SPECIMENOrdering Facility: [facility] Address: [address] [place] [address] Performed By: #### 5 7021-8, 7-7 ####[facility] LABIA [id number] [place] [address] [place] MCHC (RBC) [Mass/Vol] 32.7 g/dL Normal 30.5-36.0 [facility] Comment on above: Order Comment: Speci men Type: BLOOD SPECIMENOrdering Facility: [facility] Address: [address] [place] [place] [address] Performed By: #### 5 7021-8, 7 ####[facility] LABCLIA [id number] [place] [address] [place] MCV (RBC) [Entitic vol] 83.4 fL Normal 80.0-100.0 [facility] Comment on above: Order Comment: Speci men Type: BLOOD SPECIMENOrdering Facility: [facility] Address: [address] [place] [address] Performed By: #### 5 7021-8, 7 ####[facility] LABCLIA [id number] [place] [address] [place] Monocytes (Bld) [#/Vol] 0.36 10*3/uL Normal <0.87 [facility] Comment on above: Order Comment: Speci men Type: BLOOD SPECIMENOrdering Facility: [facility] Address: [address] [place] [address] Performed By: #### 5 7021-8, 7 ####[facility] LABCLIA [id number] [place] [address] [place] Monocytes/100 WBC (Bld) 6.1 % Normal [facility] Comment on above: Order Comment: Speci men Type: BLOOD SPECIMENOrdering Facility: [facility] Address: [address] [place] [address] Performed By: #### 5 7021-8, 7 ####[facility] LABCLIA [id number] [place] [address] [place] Neutrophils (Bld) [#/Vol] 1.20 10*3/uL Low 1.45-7.50 [facility] Comment on above: Order Comment: Speci men Type: BLOOD SPECIMENOrdering Facility: [facility] Address: [address] [place] [address] Performed By: #### 5 7021-8, 4536-7 ####[facility] LABCLIA [id number] [place] [address] [place] Neutrophils/100 WBC (Bld) 20.5 % Normal [facility] Comment on above: Order Comment: Speci men Type: BLOOD SPECIMENOrdering Facility: [facility] Address: [address] [place] [address] Performed By: #### 5 7021-8, 4536-7 ####[facility] LABCLIA [id number] [place] [address] [place] Nucleated RBC (Bld) [#/Vol] 10*3/uL Normal <0.01 [facility] Comment on above: Order Comment: Speci men Type: BLOOD SPECIMENOrdering Facility: [facility] Address: [address] [place] [address] Performed By: #### 5 7021-8, 4536-7 ####[facility] LABIA [id number] [place] [address] [place] Nucleated RBC/100 WBC (Bld) [Ratio] 0.0 /100 WBC Normal [facility] Comment on above: Order Comment: Speci men Type: BLOOD SPECIMENOrdering Facility: [facility] Address: [address] [place] [address] Performed By: #### 5 7021-8, 4536-7 ####[facility] LABIA [id number] [place] [address] [place] Platelet mean volume (Bld) [Entitic vol] 11.3 fL Normal 9.0-12.7 [facility] Comment on above: Order Comment: Speci men Type: BLOOD SPECIMENOrdering Facility: [facility] Address: [address] [place] [address] Performed By: #### 5 7021-8, 4537-7 ####[facility] LABCLIA [id number] [place] [address] [place] Platelets (Bld) [#/Vol] 172 10*3/uL Normal 150-400 [facility] Comment on above: Order Comment: Speci men Type: BLOOD SPECIMENOrdering Facility: [facility] Address: [address] [place] [address] Performed By: #### 5 7021-8, 4537-7 ####[facility] LABIA [id number] [place] [address] [place] RBC (Bld) [#/Vol] 4.10 10*6/uL Normal 3.90-5.20 [facility] Comment on above: Order Comment: Speci men Type: BLOOD SPECIMENOrdering Facility: [facility] Address: [address] [place] [address] Performed By: #### 5 7021-8, 4537-7 ####[facility] [id number] [place] [address] [place] WBC (Bld) [#/Vol] 5.87 10*3/uL Normal 3.70-11.00 [facility] Comment on above: Order Comment: Speci men Type: BLOOD SPECIMENOrdering Facility: [facility] Address: [address] [place] [address] Performed By: #### 5 7021-8, 4537-7 ####[facility] [id number] [place] [id number] [facility] CNOVon 05-26-2023 CNOV Office Visit (EXPLOR ) ANY LUDWIG ([id number]) 1985 F Date Time Provider Department 05/26/23 1:45 PM SILVIA COOPER EXPLOR During your visit today, we recorded the following information about you: Temperature Pulse Blood pressure 97.5 degrees 65/minute 107/66 Silvia Cooper, OIL WELL CABLE TOOL DRILLER.LINE ANALYST 05/26/2023 2:15 PM Signed This note was created using NoteWriter. Subjective Any Ludwig is a 38 year old female. This 38 year old female present sot [facility] with expiratory wheeze, was in [...] if neede (more content not included)... Normal [facility] CNTRAVIS Office Visit (MARK ) ANY LUDWIG ([id number]) 1985 F Date Time Provider Department 05/26/23 1:00 PM FARIBA HILL During your visit today, we recorded the following information about you: Fariba Hill APRN.CNP 06/07/2023 8:14 AM Signed FOLLOW UP VISIT-in person PCP: Tino Blake MD [address] [place] [address] Ms. 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 Until she has her [...] unfortunate soci (more content not included)... Normal [facility] CREATININE BLDon 05-26-2023 Creatinine [Mass/Vol] 0.52 mg/dL Low 0.58 - 0.96 mg/dL [facility] Estimated Glomerular Filtration Rate 121 mL/min/1.73m >=60 mL/min/1.73m [facility] Creatinine [Mass/Vol] 0.52 mg/dL Low 0.58-0.96 [facility] Comment on above: Order Comment: Speci men Type: BLOOD SPECIMENOrdering Facility: [facility] Address: [address] [place] [address] Performed By: #### 1 742-6, 192-8, CRET1, 1987-06 ####[facility] LABCLIA [id number] [place] [address] [place] Creatinine and Glomerular filtration rate.predicted panel (S/P/Bld) 121 mL/min/1.73m??? Normal >=60 [facility] Comment on above: Order Comment: Speci men Type: BLOOD SPECIMENOrdering Facility: [facility] Address: [address] [place] [id number] Result Comment: Polly mated Glomerular Filtration Rate [...] GFR. Performed By: #### 1 742-6, 1919-09, CRET1, 1987-06 ####[facility] LABIA [id number] [place] [address] [place] CRP SerPl-mCncon 05-26-2023 CRP [Mass/Vol] mg/L Normal <0.9 [facility] Comment on above: Order Comment: Speci men Type: BLOOD SPECIMENOrdering Facility: [facility] Address: [address] [place] [address] Performed By: #### 1 742-6, 1919-09, CRE, 1987-06 ####[facility] LABIA [id number] [place] [id number] [place] ESR Westergren method (Bld) [Velocity]on 05-26-2023 ESR (Bld) [Velocity] 5 mm/h 0 - 20 mm/hr [facility] ESR (Bld) [Velocity] 5 mm/h Normal 0-20 [facility] Comment on above: Order Comment: Speci men Type: BLOOD SPECIMENOrdering Facility: [facility] Address: [address] [place] [address] Performed By: #### 5 7021-8, 4537-7 ####[facility] LABIA [id number] [place] [id number] [place] VITAMIN D 25 HYDROXYon 05-25 25-hydroxyvitamin D3 [Mass/Vol] 29.2 ng/mL Low 31.0 - 80.0 ng/mL [facility] [facility] C-REACTIVE PROTEIN (CRP)on 1 CRP [Mass/Vol] 0.4 mg/dL <0.9 mg/dL [facility] CBC W Auto Differential pane l (Bld)on 11-27-2022 Basophils (Bld) [#/Vol] 0.05 10*3/uL <0.11 k/uL [facility] Basophils/100 WBC (Bld) 0.6 % [facility] Differential cell count method Nom (Bld) Auto [facility] Eosinophils (Bld) [#/Vol] 0.18 10*3/uL <0.46 k/uL [facility] Eosinophils/100 WBC (Bld) 2.3 % [facility] Erythrocyte distribution width (RBC) [Ratio] 13.7 % 11.5 - 15.0 % [facility] Hematocrit (Bld) [Volume fraction] 36.5 % 36.0 - 46.0 % [facility] Hemoglobin (Bld) [Mass/Vol] 11.7 g/dL 11.5 - 15.5 g/dL [facility] Immature granulocytes (Bld) [#/Vol] 0.09 10*3/uL <0.10 k/uL [facility] Immature granulocytes/100 WBC (Bld) 1.1 % [facility] Lymphocytes (Bld) [#/Vol] 3.92 10*3/uL 1.00 - 4.00 k/uL [facility] Lymphocytes/100 WBC (Bld) 49.2 % [facility] MCH (RBC) [Entitic mass] 26.8 pg 26.0 - 34.0 pg [facility] MCHC (RBC) [Mass/Vol] 32.1 g/dL 30.5 - 36.0 g/dL [facility] MCV (RBC) [Entitic vol] 83.7 fL 80.0 - 100.0 fL [facility] Monocytes (Bld) [#/Vol] 0.65 10*3/uL <0.87 k/uL [facility] Monocytes/100 WBC (Bld) 8.2 % [facility] Neutrophils (Bld) [#/Vol] 3.07 10*3/uL 1.45 - 7.50 k/uL [facility] Neutrophils/100 WBC (Bld) 38.6 % [facility] Nucleated RBC (Bld) [#/Vol] <0.01 k/uL [facility] Nucleated RBC/100 WBC (Bld) [Ratio] 0.0 /100 WBC [facility] Platelet mean volume (Bld) [Entitic vol] 10.5 fL 9.0 - 12.7 fL [facility] Platelets (Bld) [#/Vol] 328 10*3/uL 150 - 400 k/uL [facility] RBC (Bld) [#/Vol] 4.36 10*6/uL 3.90 - 5.2 0 m/uL [facility] WBC (Bld) [#/Vol] 7.96 10*3/uL 3.70 - 11. 00 k/uL [facility] Comprehensive metabolic 2000 panelon 11-27-2022 Albumin [Mass/Vol] 4.0 g/dL 3.9 - 4.9 g/dL [facility] ALP [Catalytic activity/Vol] 77 U/L 34 - 123 U/L [facility] ALT [Catalytic activity/Vol] 66 U/L High 7 - 38 U/L [facility] Anion gap [Moles/Vol] 11 mmol/L 9 - 18 mmol/L [facility] AST [Catalytic activity/Vol] 54 U/L High 13 - 35 U/L [facility] Bilirubin [Mass/Vol] 0.2 mg/dL 0.2 - 1 .3 mg/dL [facility] Calcium [Mass/Vol] 9.1 mg/dL 8.5 - 10. 2 mg/dL [facility] Chloride [Moles/Vol] 98 mmol/L 97 - 10 5 mmol/L [facility] CO2 [Moles/Vol] 24 mmol/L 22 - 30 mmol/L [facility] Creatinine [Mass/Vol] 0.48 mg/dL Low 0.58 - 0.96 mg/dL [facility] Estimated Glomerular Filtration Rate 125 mL/min/1.73m >=60 mL/min/1.73m [facility] Glucose [Mass/Vol] 72 mg/dL Low 74 - 99 mg/dL [facility] Potassium [Moles/Vol] 4.4 mmol/L 3.7 - 5.1 mmol/L [facility] Protein [Mass/Vol] 6.7 g/dL 6.3 - 8.0 g/dL [facility] Sodium [Moles/Vol] 133 mmol/L Low 136 - 144 mmol/L [facility] Urea nitrogen [Mass/Vol] 8 mg/dL 7 - 21 mg/dL [facility] ESR Westergren method (Bld) [Velocity]on 11-27-2022 ESR (Bld) [Velocity] 20 mm/h 0 - 20 mm/hr [facility] C-REACTIVE PROTEIN (CRP)on 0 10-22-2022 CRP [Mass/Vol] <0.9 mg/dL [facility] CBC W Auto Differential pane l (Bld)on 10-22-2022 Basophils (Bld) [#/Vol] 0.04 10*3/uL <0.11 k/uL [facility] Basophils/100 WBC (Bld) 0.6 % [facility] Differential cell count method Nom (Bld) Auto [facility] Eosinophils (Bld) [#/Vol] 0.11 10*3/uL <0.46 k/uL [facility] Eosinophils/100 WBC (Bld) 1.8 % [facility] Erythrocyte distribution width (RBC) [Ratio] 13.5 % 11.5 - 15.0 % [facility] Hematocrit (Bld) [Volume fraction] 36.9 % 36.0 - 46.0 % [facility] Hemoglobin (Bld) [Mass/Vol] 11.9 g/dL 11.5 - 15.5 g/dL [facility] Immature granulocytes (Bld) [#/Vol] <0.10 k/uL [facility] Immature granulocytes/100 WBC (Bld) 0.2 % [facility] Lymphocytes (Bld) [#/Vol] 3.08 10*3/uL 1.00 - 4.00 k/uL [facility] Lymphocytes/100 WBC (Bld) 49.3 % [facility] MCH (RBC) [Entitic mass] 26.7 pg 26.0 - 34.0 pg [facility] MCHC (RBC) [Mass/Vol] 32.2 g/dL 30.5 - 36.0 g/dL [facility] MCV (RBC) [Entitic vol] 82.9 fL 80.0 - 100.0 fL [facility] Monocytes (Bld) [#/Vol] 0.50 10*3/uL <0.87 k/uL [facility] Monocytes/100 WBC (Bld) 8.0 % [facility] Neutrophils (Bld) [#/Vol] 2.51 10*3/uL 1.45 - 7.50 k/uL [facility] Neutrophils/100 WBC (Bld) 40.1 % [facility] Nucleated RBC (Bld) [#/Vol] <0.01 k/uL [facility] Nucleated RBC/100 WBC (Bld) [Ratio] 0.0 /100 WBC [facility] Platelet mean volume (Bld) [Entitic vol] 11.5 fL 9.0 - 12.7 fL [facility] Platelets (Bld) [#/Vol] 235 10*3/uL 150 - 400 k/uL [facility] RBC (Bld) [#/Vol] 4.45 10*6/uL 3.90 - 5.2 0 m/uL [facility] WBC (Bld) [#/Vol] 6.25 10*3/uL 3.70 - 11. 00 k/uL [facility] Comprehensive metabolic 2000 panelon 10-22-2022 Albumin [Mass/Vol] 4.0 g/dL 3.9 - 4.9 g/dL [facility] ALP [Catalytic activity/Vol] 62 U/L 34 - 123 U/L [facility] ALT [Catalytic activity/Vol] 23 U/L 7 - 38 U/L [facility] Anion gap [Moles/Vol] 12 mmol/L 9 - 18 mmol/L [facility] AST [Catalytic activity/Vol] 22 U/L 13 - 35 U/L [facility] Bilirubin [Mass/Vol] 0.2 mg/dL 0.2 - 1 .3 mg/dL [facility] Calcium [Mass/Vol] 9.0 mg/dL 8.5 - 10. 2 mg/dL [facility] Chloride [Moles/Vol] 105 mmol/L 97 - 10 5 mmol/L [facility] CO2 [Moles/Vol] 20 mmol/L Low 22 - 30 mmol/L [facility] Creatinine [Mass/Vol] 0.52 mg/dL Low 0.58 - 0.96 mg/dL [facility] Estimated Glomerular Filtration Rate 122 mL/min/1.73m >=60 mL/min/1.73m [facility] Glucose [Mass/Vol] 101 mg/dL High 74 - 99 mg/dL [facility] Potassium [Moles/Vol] 3.9 mmol/L 3.7 - 5.1 mmol/L [facility] Protein [Mass/Vol] 6.7 g/dL 6.3 - 8.0 g/dL [facility] Sodium [Moles/Vol] 137 mmol/L 136 - 144 mmol/L [facility] Urea nitrogen [Mass/Vol] 9 mg/dL 7 - 21 mg/dL [facility] ESR Westergren method (Bld) [Velocity]on 10-22-2022 ESR (Bld) [Velocity] 20 mm/h 0 - 20 mm/hr [facility] - Chemistry and C hemistry - challengeon 10-22-2022 Urate [Mass/Vol] 5.2 mg/dL 2.5 - 6.6 mg/dL [facility] VITAMIN D 25 HYDROXYon 10-22 25-hydroxyvitamin D3 [Mass/Vol] 46.8 ng/mL 31.0 - 80.0 ng/mL [facility] CBC W Auto Differential pane l (Bld)on 06-23-2022 Basophils (Bld) [#/Vol] 0.07 10*3/uL <0.11 k/uL [facility] Basophils/100 WBC (Bld) 1.4 % [facility] Differential cell count method Nom (Bld) Auto [facility] Eosinophils (Bld) [#/Vol] 0.27 10*3/uL <0.46 k/uL [facility] Eosinophils/100 WBC (Bld) 5.3 % [facility] Erythrocyte distribution width (RBC) [Ratio] 12.8 % 11.5 - 15.0 % [facility] Hematocrit (Bld) [Volume fraction] 33.5 % Low 36.0 - 46.0 % [facility] Hemoglobin (Bld) [Mass/Vol] 11.0 g/dL Low 11.5 - 15.5 g/dL [facility] Immature granulocytes (Bld) [#/Vol] 0.05 10*3/uL <0.10 k/uL [facility] Immature granulocytes/100 WBC (Bld) 1.0 % [facility] Lymphocytes (Bld) [#/Vol] 2.55 10*3/uL 1.00 - 4.00 k/uL [facility] Lymphocytes/100 WBC (Bld) 50.2 % [facility] MCH (RBC) [Entitic mass] 28.2 pg 26.0 - 34.0 pg [facility] MCHC (RBC) [Mass/Vol] 32.8 g/dL 30.5 - 36.0 g/dL [facility] MCV (RBC) [Entitic vol] 85.9 fL 80.0 - 100.0 fL [facility] Monocytes (Bld) [#/Vol] 0.32 10*3/uL <0.87 k/uL [facility] Monocytes/100 WBC (Bld) 6.3 % [facility] Neutrophils (Bld) [#/Vol] 1.82 10*3/uL 1.45 - 7.50 k/uL [facility] Neutrophils/100 WBC (Bld) 35.8 % [facility] Nucleated RBC (Bld) [#/Vol] <0.01 k/uL [facility] Nucleated RBC/100 WBC (Bld) [Ratio] 0.0 /100 WBC [facility] Platelet mean volume (Bld) [Entitic vol] 11.6 fL 9.0 - 12.7 fL [facility] Platelets (Bld) [#/Vol] 201 10*3/uL 150 - 400 k/uL [facility] RBC (Bld) [#/Vol] 3.90 10*6/uL 3.90 - 5.2 0 m/uL [facility] WBC (Bld) [#/Vol] 5.08 10*3/uL 3.70 - 11. 00 k/uL [facility] ESR Westergren method (Bld) [Velocity]on 06-23-2022 ESR (Bld) [Velocity] 15 mm/h 0 - 20 mm/hr [facility] C-REACTIVE PROTEIN (CRP)on 0 02-24-2022 CRP [Mass/Vol] 0.6 mg/dL <0.9 mg/dL [facility] CBC W Auto Differential pane l (Bld)on 02-24-2022 Basophils (Bld) [#/Vol] 0.05 10*3/uL <0.11 k/uL [facility] Basophils/100 WBC (Bld) 0.8 % [facility] Differential cell count method Nom (Bld) Auto [facility] Eosinophils (Bld) [#/Vol] 0.28 10*3/uL <0.46 k/uL [facility] Eosinophils/100 WBC (Bld) 4.6 % [facility] Erythrocyte distribution width (RBC) [Ratio] 12.4 % 11.5 - 15.0 % [facility] Hematocrit (Bld) [Volume fraction] 37.1 % 36.0 - 46.0 % [facility] Hemoglobin (Bld) [Mass/Vol] 12.3 g/dL 11.5 - 15.5 g/dL [facility] Immature granulocytes (Bld) [#/Vol] <0.10 k/uL [facility] Immature granulocytes/100 WBC (Bld) 0.3 % [facility] Lymphocytes (Bld) [#/Vol] 3.03 10*3/uL 1.00 - 4.00 k/uL [facility] Lymphocytes/100 WBC (Bld) 49.7 % [facility] MCH (RBC) [Entitic mass] 28.7 pg 26.0 - 34.0 pg [facility] MCHC (RBC) [Mass/Vol] 33.2 g/dL 30.5 - 36.0 g/dL [facility] MCV (RBC) [Entitic vol] 86.5 fL 80.0 - 100.0 fL [facility] Monocytes (Bld) [#/Vol] 0.49 10*3/uL <0.87 k/uL [facility] Monocytes/100 WBC (Bld) 8.0 % [facility] Neutrophils (Bld) [#/Vol] 2.23 10*3/uL 1.45 - 7.50 k/uL [facility] Neutrophils/100 WBC (Bld) 36.6 % [facility] Nucleated RBC (Bld) [#/Vol] <0.01 k/uL [facility] Nucleated RBC/100 WBC (Bld) [Ratio] 0.0 /100 WBC [facility] Platelet mean volume (Bld) [Entitic vol] 11.0 fL 9.0 - 12.7 fL [facility] Platelets (Bld) [#/Vol] 224 10*3/uL 150 - 400 k/uL [facility] RBC (Bld) [#/Vol] 4.29 10*6/uL 3.90 - 5.2 0 m/uL [facility] WBC (Bld) [#/Vol] 6.10 10*3/uL 3.70 - 11. 00 k/uL [facility] Comprehensive metabolic 2000 panelon 02-24-2022 Albumin [Mass/Vol] 4.0 g/dL 3.9 - 4.9 g/dL [facility] ALP [Catalytic activity/Vol] 89 U/L 34 - 123 U/L [facility] ALT [Catalytic activity/Vol] 18 U/L 7 - 38 U/L [facility] Anion gap [Moles/Vol] 12 mmol/L 9 - 18 mmol/L [facility] AST [Catalytic activity/Vol] 27 U/L 13 - 35 U/L [facility] Bilirubin [Mass/Vol] Low 0.2 - 1 .3 mg/dL [facility] Calcium [Mass/Vol] 9.0 mg/dL 8.5 - 10. 2 mg/dL [facility] Chloride [Moles/Vol] 102 mmol/L 97 - 10 5 mmol/L [facility] CO2 [Moles/Vol] 22 mmol/L 22 - 30 mmol/L [facility] Creatinine [Mass/Vol] 0.46 mg/dL Low 0.58 - 0.96 mg/dL [facility] Estimated Glomerular Filtration Rate 126 mL/min/1.73m >=60 mL/min/1.73m [facility] Glucose [Mass/Vol] 87 mg/dL 74 - 99 mg/dL [facility] Potassium [Moles/Vol] 3.7 mmol/L 3.7 - 5.1 mmol/L [facility] Protein [Mass/Vol] 6.7 g/dL 6.3 - 8.0 g/dL [facility] Sodium [Moles/Vol] 136 mmol/L 136 - 144 mmol/L [facility] Urea nitrogen [Mass/Vol] 7 mg/dL 7 - 21 mg/dL [facility] ESR Westergren method (Bld) [Velocity]on 02-24-2022 ESR (Bld) [Velocity] 29 mm/h High 0 - 20 mm/hr [facility] VITAMIN D 25 HYDROXYon 01-05 25-hydroxyvitamin D3 [Mass/Vol] 50.7 ng/mL 31.0 - 80.0 ng/mL [facility] Covid-19 PCR (CVDTBH)on 09-22 SARS-CoV-2 (COVID-19) RNA KARAN+probe Ql (Unsp spec) Not detected Normal NOT DETECTED [facility] Comment on above: Result Comment: When diagnostic [...] for this test is supported by the [place] [employer] and [employer] Service's declaration that [...] used). Performed By: #### C VDTBH #### [facility] [address] [place] [address] Dr. Funmi Bosch GROUP A STREP CULTUREon 09-22 S. pyogenes Ag Ql (Unsp spec) Culture Observations: NEGATIVE FOR GROUP A STREPTOCOCCUS. Normal [facility] Comment on above: Performed By: #### G RASTCX, SSCRN #### [facility] [address] [place] [address] Dr. Funmi Bosch STREPT SCREENon 10-07-2021 STREP SCREEN A Negative Normal NEGATIVE [facility] Comment on above: Performed By: #### G RASTCX, SSCRN #### [facility] [address] [place] [address] Dr. Funmi Bosch BUPERNORPHINE CONFIRMATION, URINEon 09-14-2021 Buprenorphine Positive Abnormal [facility] Comment on above: Result Comment: Conf irmation performed by Mass Spectrometry Performed By: #### B UPCON #### [facility] [address] [place] [address] Dr. Funmi Bosch Buprenorphine Confirm 1071 ng/mL Normal Cutoff=10 [facility] Comment on above: Performed By: #### B UPCON #### [facility] [address] [place] [address] Dr. Funmi Bosch Norbuprenorphine Positive Abnormal [facility] Comment on above: Performed By: #### B UPCON #### [facility] [address] [place] [address] Dr. Funmi Bosch Norbuprenorphine Confirm >2000 Normal Cutoff=10 [facility] Comment on above: Performed By: #### B UPCON #### [facility] [address] [place] [address] Dr. Funmi Bosch CBC AUTO DIFFon 09-04-2021 BASO # 0.0 103/ul Normal 0.0-0.1 [facility] Comment on above: Performed By: #### C BC #### [facility] [address] [place] [address] Dr. Funmi Bosch Basophils/100 WBC (Bld) 0.3 % Normal 0.2-2.0 [facility] Comment on above: Performed By: #### C BC #### [facility] [address] [place] [address] Dr. Funmi Bosch EO # 0.1 103/ul Normal 0.0-0.7 [facility] Comment on above: Performed By: #### C BC #### [facility] [address] [place] [address] Dr. Funmi Bosch Eosinophils/100 WBC (Bld) 0.6 % Critically low 0.9-7.0 [facility] Comment on above: Performed By: #### C BC #### [facility] [address] [place] [address] Dr. Funmi Bosch Erythrocyte distribution width (RBC) [Ratio] 13.4 % Normal 11.0-15.0 [facility] Comment on above: Performed By: #### C BC #### [facility] [address] [place] [address] Dr. Funmi Bosch Hematocrit (Bld) [Volume fraction] 35.2 % Critically low 36.0-48.0 [facility] Comment on above: Performed By: #### C BC #### [facility] [address] [place] [address] Dr. Funmi Bosch Hemoglobin (Bld) [Mass/Vol] 12.4 g/dL Normal 12.0-16.0 [facility] Comment on above: Performed By: #### C BC #### [facility] [address] [place] [address] Dr. Funmi Bosch IG # 0.04 10e3/ul Critically high 0.00-0.03 [facility] Comment on above: Performed By: #### C BC #### [facility] [address] [place] [address] Dr. Funmi Bosch IG % 0.3 % Normal 0.0-0.5 [facility] Comment on above: Performed By: #### C BC #### [facility] [address] [place] [address] Dr. Funmi Bsoch LYMPH # 5.2 103/ul Critically high 1.2-3.8 [facility] Comment on above: Performed By: #### C BC #### [facility] [address] [place] [address] Dr. Funmi Bosch Lymphocytes/100 WBC (Bld) 41.7 % Normal 20.5-60.0 [facility] Comment on above: Performed By: #### C BC #### [facility] [address] [place] [address] Dr. Funmi Bosch MANUAL DIFF REQ NO Normal [facility] Comment on above: Performed By: #### C BC #### [facility] [address] [place] [address] Dr. Funmi Bosch MCH (RBC) [Entitic mass] 30.1 pg Normal 26.7-34.0 [facility] Comment on above: Performed By: #### C BC #### [facility] [address] [place] [address] Dr. Funmi Bosch MCHC (RBC) [Mass/Vol] 35.2 g/dL Normal 29.9-35.2 [facility] Comment on above: Performed By: #### C BC #### [facility] [address] [place] [address] Dr. Funmi Bosch MCV (RBC) [Entitic vol] 85.4 fL Normal 81.0-99.0 [facility] Comment on above: Performed By: #### C BC #### [facility] [address] [address] [address] Funmi Bosch MONO # 0.8 103/ul Normal 0.3-0.8 [facility] Comment on above: Performed By: #### C BC #### [facility] [address] [address] [address] Funmi Bosch Monocytes/100 WBC (Bld) 6.8 % Normal 1.7-12.0 [facility] Comment on above: Performed By: #### C BC #### [facility] [address] [address] [address] Funmi Bosch NEUT # 6.3 103/ul Normal 1.4-6.5 [facility] Comment on above: Performed By: #### C BC #### [facility] [address] [place] [address] Dr. Funmi Bosch Neutrophils/100 WBC (Bld) 50.3 % Normal 43.0-75.0 [facility] Comment on above: Performed By: #### C BC #### [facility] [address] [place] [address] Dr. Funmi Bosch Platelet mean volume (Bld) [Entitic vol] 9.9 fL Normal 9.5-13.5 [facility] Comment on above: Performed By: #### C BC #### [facility] [address] [place] [address] Dr. Funmi Bosch PLT 275 103/ul Normal 150-450 [facility] Comment on above: Performed By: #### C BC #### [facility] [address] [place] [address] Dr. Funmi Bosch RBC 4.12 106/ul Critically low 4.20-5.40 [facility] Comment on above: Performed By: #### C BC #### [facility] [address] [place] [address] Dr. Funmi Bosch WBC 12.4 103/ul Critically high 4.0-11.0 [facility] Comment on above: Performed By: #### C BC #### [facility] [address] [place] [address] Dr. Funmi Bosch PREG QUANT HCGon 09-04-2021 HCG QUANT <1 Normal [facility] Comment on above: Performed By: #### P REGQNT #### [facility] [address], [place] [address] Dr. Funmi Bosch HCG RANGE SEE BELOW Normal [facility] Comment on above: Result Comment: 5-50 0-1 WEEK 40-300 1-2 WEEKS 100-1,000 2-3 WEEKS 500-6,000 3-4 WEEKS 5,000-200,000 1-2 MONTHS 10,000-100,000 2-3 MONTHS 3,000-50,000 2ND TRIMESTER 1,000-50,000 3RD TRIMESTER Performed By: #### P REGQNT #### [facility] [address] [place] [address] [id number] [address] Funmi Bosch HCG QUAL UR B/Oon 09-03-2021 status Negative neg - pos [facility] Quality Check Yes [facility] 08[facility]22 SARS-CoV-2 (COVID-19) RNA KARAN+probe Ql (Unsp spec) Not detected Normal NOT DETECTED [facility] Comment on above: Result Comment: This test is not yet approved or cleared by the [place] FDA. When there are no FDA-approved or cleared tests available, and other criteria are met, FDA can make tests available under an emergency access mechanism called an Emergency Use Authorization (EUA). The EUA for this test is supported by the [place] of Health and Human Service's (HHS's) declaration [...] SARS-CoV-2. Performed By: #### C VDTBH #### [facility] [address] [place] [address] Dr. Funmi Bosch DRUG SCREEN RAPID (URINE)on 09-02-2021 AMP Negative Normal NEGATIVE [facility] Comment on above: Performed By: #### C VDTBH #### [facility] [address] [place] [address] Dr. Funmi Bosch BAR Negative Normal NEGATIVE [facility] Comment on above: Performed By: #### C VDTBH #### [facility] [address] [place] [address] Dr. Funmi Bosch BUP Positive Abnormal NEGATIVE [facility] Comment on above: Performed By: #### C VDTBH #### [facility] [address] [place] [address] Dr. Funmi Bosch BZO Negative Normal NEGATIVE [facility] Comment on above: Performed By: #### C VDTBH #### [facility] [address] [place] [address] Dr. Funmi Bosch LALA Negative Normal NEGATIVE [facility] Comment on above: Performed By: #### C VDTBH #### [facility] [address] [place] [address] Dr. Funmi Bosch CUT-OFFS SEE BELOW Normal [facility] Comment on above: Result Comment: [...] ng/mL Performed By: #### C VDTBH #### [facility] [address] [place] [address] Dr. Funmi Bosch DRUG CUT HEADER DRUG CLASS TEST SYSTEM CUT-OFF CONCENTRATIONS ARE FOLLOWS: Normal [facility] Comment on above: Performed By: #### C VDTBH #### [facility] [address] [place] [address] Dr. Funmi Bosch mAMP Negative Normal NEGATIVE [facility] Comment on above: Performed By: #### C VDTBH #### [facility] [address] [place] [address] Dr. Funmi Bosch MTD Negative Normal NEGATIVE [facility] Comment on above: Performed By: #### C VDTBH #### [facility] [address] [place] [address] Dr. Funmi Bosch OPI Negative Normal NEGATIVE [facility] Comment on above: Performed By: #### C VDTBH #### [facility] [address] [place] [address] Dr. Funmi Bosch OXY Negative Normal NEGATIVE [facility] Comment on above: Performed By: #### C VDTBH #### [facility] [address] [place] [address] Dr. Funmi Bosch PCP Negative Normal NEGATIVE [facility] Comment on above: Performed By: #### C VDTBH #### [facility] [address] [place] [address] Dr. Funmi Bosch PPX Negative Normal NEGATIVE [facility] Comment on above: Performed By: #### C VDTBH #### [facility] [address] [place] [address] Dr. Funmi Bosch TCA Negative Normal NEGATIVE [facility] Comment on above: Performed By: #### C VDTBH #### [facility] [address] [place] [address] Dr. Funmi Bosch THC Negative Normal NEGATIVE [facility] Comment on above: Performed By: #### C VDTBH #### [facility] [address] [place] [address] Dr. Funmi Bosch Covid-19 PCR ([facility])on 07-24 SARS-CoV-2 (COVID-19) RNA KARAN+probe Ql (Unsp spec) Not detected Normal NOT DETECTED [facility] Comment on above: Result Comment: This test is not yet approved or cleared by the [place] FDA. When there are no FDA-approved or cleared tests available, and other criteria are met, FDA can make tests available under an emergency access mechanism called an Emergency Use Authorization (EUA). The EUA for this test is supported by the [place] of Health and Human Service's (HHS's) declaration [...] SARS-CoV-2. Performed By: #### C VDTBH #### [facility] [address] [place] [address] Dr. Funmi Bosch GROUP A STREP CULTUREon 07-24 S. pyogenes Ag Ql (Unsp spec) Culture Observations: NEGATIVE FOR GROUP A STREPTOCOCCUS. Normal [facility] Comment on above: Performed By: #### C VDTBH #### [facility] [address] [place] [address] Dr. Funmi Bosch STREPT SCREENon 08-15-2021 STREP SCREEN A Negative Normal NEGATIVE [facility] Comment on above: Performed By: #### C VDTBH #### [facility] [address] [place] [address] Dr. Funmi Bosch XR CHEST 1 Von [...] by: RIMMA REIS Date: 2021-08-15 18:25 Normal [facility] HCG QUAL UR B/Oon 08-06-2021 status Negative neg - pos [facility] Quality Check Yes [facility] HCG QUAL UR B/Oon 07-23-2021 status Negative neg - pos [facility] Quality Check Yes [facility] XR CHEST (2 VW)on 09-15-2020 XR [...] Tashi Baptiste MD 09/15/20 Final result Normal [facility] XR CHEST (2 VW)Ordered By: Cleveland Caro on 09-15-2020 Possible interstitia l infiltrates. Probable small airways disease. INDOM Phone: EXAMINATION: TWO XRA Y VIEWS OF THE CHEST 09/15/2020 5:40 pm COMPARISON: None. HISTORY: ORDERING SYSTEM PROVIDED HISTORY: productive cough, wheezing TECHNOLOGIST PROVIDED HISTORY: productive cough, wheezing FINDINGS: Lungs are hyperaerated. Possible patchy bilateral interstitial infiltrates. Heart and mediastinum normal. Bony thorax intact. INDOM Phone: Kurt, pn Incoming Radiant Results From [employer] - 09/15/2020 6:20 PM EDT EXAMINATION: TWO XRAY VIEWS OF THE CHEST 09/15/2020 5:40 pm COMPARISON: None. HISTORY: ORDERING SYSTEM PROVIDED HISTORY: productive cough, wheezing TECHNOLOGIST PROVIDED HISTORY: productive cough, wheezing FINDINGS: Lungs are hyperaerated. Possible patchy bilateral interstitial infiltrates. Heart and mediastinum normal. Bony thorax intact. IMPRESSION: Possible interstitial infiltrates. Probable small airways disease. INDOM Phone: INDOM Phone: CBC auto differentialon 06-22 Basophils (Bld) [#/Vol] 0.03 10*3/uL [employer] [place] Basophils/100 WBC (Bld) 0 % 0 - 2 % [place] Differential Type NOT REPORTED [place] Eosinophils (Bld) [#/Vol] 0.16 10*3/uL [place] Eosinophils/100 WBC (Bld) 1 % 1 - 4 % [place] Erythrocyte distribution width (RBC) [Ratio] 14.3 % 11.8 - 14.4 % [place] Hematocrit (Bld) [Volume fraction] 35.7 % Low 36.3 - 47.1 % [place] Hemoglobin (Bld) [Mass/Vol] 11.6 g/dL Low 11.9 - 15.1 g/dL [place] Immature granulocytes (Bld) [#/Vol] 2 % High 0 [place] Immature granulocytes (Bld) [#/Vol] 0.27 10*3/uL [place] Interpretation and review of laboratory results Abnormal [place] Lymphocytes (Bld) [#/Vol] 3.65 10*3/uL [place] Lymphocytes/100 WBC (Bld) 26 % 24 - 43 % [place] MCH (RBC) [Entitic mass] 28.3 pg 25.2 - 33.5 pg [place] MCHC (RBC) [Mass/Vol] 32.5 g/dL 28.4 - 34.8 g/dL [place] MCV (RBC) [Entitic vol] 87.1 fL 82.6 - 102.9 fL [place] Monocytes (Bld) [#/Vol] 0.97 10*3/uL [place] Monocytes/100 WBC (Bld) 7 % 3 - 12 % [place] Platelet mean volume (Bld) [Entitic vol] 10.3 fL 8.1 - 13.5 fL [place] Platelets (Bld) [#/Vol] NOT REPORTED [place] Platelets (Bld) [#/Vol] 349 10*3/uL [place] RBC (Bld) [#/Vol] 4.10 10*6/uL 3.95 - 5.1 1 m/uL [place] RBC morphology finding Nom (Bld) NOT REPORTED [place] Segmented neutrophils/100 WBC (Bld) 64 % 36 - 65 % [place] Segs Absolute 8.80 [place] WBC (Bld) [#/Vol] 13.9 10*3/uL [place] WBC (Bld) [#/Vol] 0.0 10*3/uL 0.0 per 10 0 WBC [place] WBC Morphology NOT REPORTED [employer], [place] DRUG SCREEN MULTI URINEon Amphetamine Screen, Ur Negative NEGATIVE [place] Barbiturate Screen, Ur Negative NEGATIVE [place] Benzodiazepine Screen, Urine Negative NEGATIVE [place] Buprenorphine Urine Negative NEGATIVE [place] Cannabinoid Scrn, Ur Negative NEGATIVE [place] Cocaine Metabolite, Urine Negative NEGATIVE [place] MDMA, Urine NOT REPORTED NEGATIVE [place] Methadone Screen, Urine Negative NEGATIVE [place] Methamphetamine, Urine Negative NEGATIVE [place] Opiates, Urine Negative NEGATIVE [place] Oxycodone Screen, Ur Negative NEGATIVE [place] Phencyclidine, Urine Negative NEGATIVE [place] Propoxyphene, Urine Negative NEGATIVE [place] Test Information NOT REPORTED [place] Tricyclic Antidepressants, Urine Negative NEGATIVE [place] Comment on above: Drug screen results are to be used for medical purposes only. All positive results are unconfirmed. Testing for employment or legal uses should be sent to a reference laboratory for confirmation. Glucose tolerance, 1 houron 05-01-2019 GLU ADMN Glucola [place], [place] Glucose tolerance screen 50g 116 mg/dL 70 - 135 mg/dL [place] Hemoglobinon 05-01-2019 Hemoglobin (Bld) [Mass/Vol] 11.0 g/dL Low 11.9 - 15.1 g/dL [place] Interpretation and review of laboratory results Abnormal [place] Rapid Influenza A/B Antigens on 04-04-2019 Direct Exam INFLUENZA TEST INVALID BY OUR TESTING METHOD. WILL BE SENT FOR CONFIRMATORY TESTING. INDOM Phone: Special Requests NOT REPORTED INDOM Phone: Specimen Description .NASOPHARYNGEAL SWAB INDOM Phone: TYPE AND SCREENon 1 ABO/Rh Negative [facility], [place] Antibody ID Anti-D, Passive Due To RhIG [facility], [place] Urine Drug Screen, Comprehen siveon 12-19-2018 Amphetamine Screen, Ur Negative NEGATIVE [facility], [place] Barbiturate Screen, Ur Negative NEGATIVE [facility], [place] Benzodiazepine Screen, Urine Negative NEGATIVE [facility], [place] Buprenorphine Urine Negative NEGATIVE [facility], [place] Cannabinoid Scrn, Ur Negative NEGATIVE [facility], [place] Cocaine Metabolite, Urine Negative NEGATIVE [facility], [place] MDMA, Urine NOT REPORTED NEGATIVE [facility] [place], [place] Methadone Screen, Urine Negative NEGATIVE [facility], [place] Methamphetamine, Urine Negative NEGATIVE [facility], [place] Opiates, Urine Negative NEGATIVE [facility] [place], [place] Oxycodone Screen, Ur Negative NEGATIVE [facility], [place] Phencyclidine, Urine Negative NEGATIVE [facility], [place] Propoxyphene, Urine Negative NEGATIVE [facility], [place] Test Information NOT REPORTED [facility], [place] Tricyclic Antidepressants, Urine Negative NEGATIVE [facility], [place] Comment on above: Drug screen results are to be used for medical purposes only. All positive results are unconfirmed. Testing for employment or legal uses should be sent to a reference laboratory for confirmation. ABO/RHon 12-03-2018 ABO/Rh Negative [facility], [place] CBCon 12-03-2018 Erythrocyte distribution width (RBC) [Ratio] 15.5 % High 11.8 - 14.4 % [place] Hematocrit (Bld) [Volume fraction] 32.8 % Low 36.3 - 47.1 % [place] Hemoglobin (Bld) [Mass/Vol] 10.5 g/dL Low 11.9 - 15.1 g/dL [place] Interpretation and review of laboratory results Abnormal [place] MCH (RBC) [Entitic mass] 27.1 pg 25.2 - 33.5 pg [place] MCHC (RBC) [Mass/Vol] 32.0 g/dL 28.4 - 34.8 g/dL [place] MCV (RBC) [Entitic vol] 84.8 fL 82.6 - 102.9 fL [place] Platelet mean volume (Bld) [Entitic vol] 10.6 fL 8.1 - 13.5 fL [place] Platelets (Bld) [#/Vol] 230 10*3/uL [place] RBC (Bld) [#/Vol] 3.87 10*6/uL Low 3.95 - 5.1 1 m/uL [place] WBC (Bld) [#/Vol] 0.0 10*3/uL 0.0 per 10 0 WBC [place] WBC (Bld) [#/Vol] 10.3 10*3/uL [place] Comprehensive Metabolic Pane miriam 12-03-2018 Albumin [Mass/Vol] 3.7 g/dL 3.5 - 5.2 g/dL [place] Albumin/Globulin [Mass ratio] 1.2 {ratio} [place] ALP [Catalytic activity/Vol] 64 U/L 35 - 104 U/L [place] ALT [Catalytic activity/Vol] 11 U/L 5 - 33 U/L [place] Anion gap [Moles/Vol] 15 mmol/L 9 - 17 mmol/L [place] AST [Catalytic activity/Vol] 17 U/L <32 [place] Bilirubin Ql (U) <0.10 Low 0.3 - 1.2 mg/dL [place] Bun/Cre Ratio 21 [place] Calcium [Mass/Vol] 9.5 mg/dL 8.6 - 10. 4 mg/dL [place] Chloride [Moles/Vol] 97 mmol/L Low 98 - 10 7 mmol/L [place] CO2 [Moles/Vol] 21 mmol/L 20 - 31 mmol/L [place] Creatinine [Mass/Vol] 0.47 mg/dL Low 0.5 - 0.9 mg/dL [place] GFR >60 >60 mL/min [place] GFR Non- >60 >60 mL/min [place] Glucose [Mass/Vol] 104 mg/dL High 70 - 99 mg/dL [place], [place] Interpretation and review of laboratory results Abnormal [place] Potassium [Moles/Vol] 3.5 mmol/L Low 3.7 - 5.3 mmol/L [place] Protein [Mass/Vol] 6.8 g/dL 6.4 - 8.3 g/dL [place] Sodium [Moles/Vol] 133 mmol/L Low 135 - 144 mmol/L [place] Urea nitrogen [Mass/Vol] 10 mg/dL 6 - 20 mg/dL [place] Metabolic Panelon 12-03-2018 GFR/1.73 sq M predicted among non-blacks MDRD (S/P/Bld) [Vol rate/Area] [place] Comment on above: Stage 1: Some [...] body mass. Additional eGFR calculator available at: http://www.[employer]/multiple_crcl_2012.htm Microscopic Urinalysison Amorphous, UA 3+ Abnormal None [place] Bacteria, UA 1+ Abnormal None [place] Casts UA NOT REPORTED /LPF [place] Crystals UA NOT REPORTED None /HPF [place] Epithelial Cells UA 0 TO 2 [place] Interpretation and review of laboratory results Abnormal [place] Mucus, UA NOT REPORTED None [place] Other Observations UA NOT REPORTED NOT REQ. [place] RBC (U) [#/Vol] 0 TO 2 [place], [place] Renal Epithelial, Urine NOT REPORTED 0 /HPF [place] Trichomonas, UA NOT REPORTED None [facility] [place] WBC, UA 0 TO 2 [place] Yeast, UA NOT REPORTED None [place] - [place] Urinalysis Reflex to Culture on 12-03-2018 Bilirubin Urine Negative NEGATIVE [place] Color, UA YELLOW YELLOW [place] Glucose, Ur Negative NEGATIVE [place] Interpretation and review of laboratory results Abnormal [place] Ketones Ql (U) Negative NEGATIVE [place] Leukocyte esterase Test strip Ql (U) Negative NEGATIVE [place] Nitrite, Urine Negative NEGATIVE [place] pH, UA 7.5 [place] Protein (U) [Mass/Vol] Negative NEGATIVE [place] Specific [place], UA 1.015 [place], [place] Turbidity UA CLOUDY Abnormal CLEAR [place] Urinalysis Comments NOT REPORTED [place] Urine Hgb Negative NEGATIVE [place] Urobilinogen, Urine Normal Normal [place] Wet Prep, Genitalon 12-04-19 19 Direct Exam YEAST PRESENT [place] Direct Exam NO CLUE CELLS SEEN [place] Direct Exam NO TRICHOMONAS SEEN [place] Special Requests NOT REPORTED [place] Specimen Description .VAGINA [place] hCG, quantitative, on 12-03-2018 hCG Quant [id number] High <5 IU/L [place] Comment on above: Non-preg premeno <=5 Postmeno <=8 Male <=3 If HCG results do not concur with clinical observations, additional testing to confirm results is recommended. Elevated results not associated with may be found in patients with other diseases such as tumors of the germ cells (testis, ovaries, etc.), bladder, pancreas, stomach, lungs, and liver. Interpretation and review of laboratory results Abnormal [place] Vital Signs Date Time Vital Sign Value Performing Clinician Facility 04-26-2024 13:04-0500 Body height 160 cm Niya Jack [employer] Work Phone: [facility] 04-26-2024 13:04-0500 Body mass index (BMI) [Ratio] 29.62 kg/m2 Niya Jack [employer] Work Phone: [facility] 04-26-2024 13:04-0500 Body temperature 98.1 [degF] Niya Jakc [employer] Work Phone: [facility] 04-26-2024 13:04-0500 Body weight 75.84 kg Niya Jack [employer] Work Phone: [facility] 04-26-2024 13:04-0500 Diastolic blood pressure 78 mm[Hg] Niya Jack [employer]IST Work Phone: [facility] 04-26-2024 13:04-0500 Heart rate 93 /min Niya Jack [employer]IST Work Phone: [facility] 04-26-2024 13:04-0500 Respiratory rate 18 /min Niya Nelsonclevelandjeremie [employer] SPECIALIST Work Phone: [facility] 04-26-2024 13:04-0500 SaO2% (BldA) [Mass fraction] 97 % Niya Jack [employer]IST Work Phone: [facility] 04-26-2024 13:04-0500 Systolic blood pressure 122 mm[Hg] Niya Santiago [employer]IST Work Phone: [facility] 03-31-2024 13:49-0500 Body height 160 cm Craig Wade MD Work Phone: [facility] 03-31-2024 13:49-0500 Body mass index (BMI) [Ratio] 28.78 kg/m2 Craig Wade MD Work Phone: [facility] 03-31-2024 13:49-0500 Body weight 73.7 kg Craig Wade MD Work Phone: [facility] 03-31-2024 13:49-0500 Diastolic blood pressure 70 mm[Hg] Craig Wade MD Work Phone: [facility] 03-31-2024 13:49-0500 Heart rate 77 /min Craig Wade MD Work Phone: [facility] 03-31-2024 13:49-0500 Systolic blood pressure 115 mm[Hg] Craig Wade MD Work Phone: [facility] 03-01-2024 10:42-0500 Body height 160 cm Niya Santiago [employer]IST Work Phone: [facility] 03-01-2024 10:42-0500 Body mass index (BMI) [Ratio] 27.95 kg/m2 Niya Santiago [employer] Work Phone: [facility] 03-01-2024 10:42-0500 Body temperature 97.59 [degF] Niya Santiago [employer]IST Work Phone: [facility] 03-01-2024 10:42-0500 Body weight 71.58 kg Niya Santiago [employer]IST Work Phone: [facility] 03-01-2024 10:42-0500 Diastolic blood pressure 82 mm[Hg] Niya Santiago [employer]IST Work Phone: [facility] 03-01-2024 10:42-0500 Heart rate 101 /min Niya Santiago [employer]IST Work Phone: [facility] 03-01-2024 10:42-0500 Respiratory rate 18 /min Niya Santiago [employer]IST Work Phone: [facility] 03-01-2024 10:42-0500 SaO2% (BldA) [Mass fraction] 97 % Niya Aichholz [employer]IST Work Phone: [facility] 03-01-2024 10:42-0500 Systolic blood pressure 120 mm[Hg] Niya Estrellaholz [employer]IST Work Phone: [facility] 01-25-2024 14:54-0500 Body height 160 cm Niya Nelsonhholz [employer] SPECIALIST Work Phone: [facility] 01-25-2024 14:54-0500 Body mass index (BMI) [Ratio] 29.8 kg/m2 Niya Estrellaholz [employer]IST Work Phone: [facility] 01-25-2024 14:54-0500 Body temperature 97.81 [degF] Niya Estrellaholz [employer]IST Work Phone: [facility] 01-25-2024 14:54-0500 Body weight 76.3 kg Niya Nelsonhholz [employer]IST Work Phone: [facility] 01-25-2024 14:54-0500 Diastolic blood pressure 72 mm[Hg] Niya Estrellaholz [employer] SPECIALIST Work Phone: [facility] 01-25-2024 14:54-0500 Heart rate 78 /min Niya Nelsonhholz [employer] SPECIALIST Work Phone: [facility] 01-25-2024 14:54-0500 Respiratory rate 19 /min Niya Nelsonhholz [employer]IST Work Phone: [facility] 01-25-2024 14:54-0500 SaO2% (BldA) [Mass fraction] 98 % Niya Estrellaholz [employer]IST Work Phone: [facility] 01-25-2024 14:54-0500 Systolic blood pressure 104 mm[Hg] Niya Aichholz [employer]IST Work Phone: [facility] 10-21-2023 13:04-0400 Body height 160 cm Niya Aichholz [employer]IST Work Phone: [facility] 10-21-2023 13:04-0400 Body mass index (BMI) [Ratio] 29.19 kg/m2 Niya Aichholz [employer]IST Work Phone: [facility] 10-21-2023 13:04-0400 Body temperature 97 [degF] Niya Santiago [employer]IST Work Phone: [facility] 10-21-2023 13:04-0400 Body weight 74.75 kg Niya Santiago [employer]IST Work Phone: [facility] 10-21-2023 13:04-0400 Diastolic blood pressure 80 mm[Hg] Niya Santiago [employer]IST Work Phone: [facility] 10-21-2023 13:04-0400 Heart rate 97 /min Niya Santiago [employer]IST Work Phone: [facility] 10-21-2023 13:04-0400 Respiratory rate 18 /min Niya Santiago [employer]IST Work Phone: [facility] 10-21-2023 13:04-0400 SaO2% (BldA) [Mass fraction] 98 % Niya Santiago INTRANET SPECIALIST Work Phone: [facility] 10-21-2023 13:04-0400 Systolic blood pressure 120 mm[Hg] Niya Santiago INTRANET SPECIALIST Work Phone: [facility] 05-26-2023 13:42-0400 Body temperature 97.5 [degF] Silvia Cooper APRN.LINE ANALYST Work Phone: [facility] 05-26-2023 13:42-0400 Diastolic blood pressure 66 mm[Hg] Silvia Cooper APRN.LINE ANALYST Work Phone: [facility] 05-26-2023 13:42-0400 Heart rate 65 /min Silvia Cooper APRN.LINE ANALYST Work Phone: [facility] 05-26-2023 13:42-0400 SaO2% (BldA) [Mass fraction] 98 % Silvia Cooper APRN.LINE ANALYST Work Phone: [facility] 05-26-2023 13:42-0400 Systolic blood pressure 107 mm[Hg] Silvia Allison IGLESIASLINE ANALYST Work Phone: [facility] 05-26-2023 11:32-0400 Body temperature 97.2 [degF] Rheu Leslie Work Phone: [facility] 05-26-2023 11:32-0400 Body weight 74.9 kg Rheu Leslie Work Phone: [facility] 05-26-2023 11:32-0400 Diastolic blood pressure 69 mm[Hg] Rheu Leslie Work Phone: [facility] 05-26-2023 11:32-0400 Heart rate 65 /min Rheu Leslie Work Phone: [facility] 05-26-2023 11:32-0400 SaO2% (BldA) [Mass fraction] 96 % Rheu Leslie Work Phone: [facility] 05-26-2023 11:32-0400 Systolic blood pressure 106 mm[Hg] Rheu Leslie Work Phone: [facility] 04-28-2023 12:15-0500 Body temperature 97 [degF] Rheu Leslie Work Phone: [facility] 04-28-2023 12:15-0500 Body weight 73.6 kg Rheu Leslie Work Phone: [facility] 04-28-2023 12:15-0500 Diastolic blood pressure 73 mm[Hg] Rheu Leslie Work Phone: [facility] 04-28-2023 12:15-0500 Heart rate 80 /min Rheu Leslie Work Phone: [facility] 04-28-2023 12:15-0500 Respiratory rate 18 /min Rheu Leslie Work Phone: [facility] 04-28-2023 12:15-0500 Systolic blood pressure 110 mm[Hg] Rheu Leslie Work Phone: [facility] 03-31-2023 12:50-0500 Diastolic blood pressure 69 mm[Hg] Rheu Leslie Work Phone: [facility] 03-31-2023 12:50-0500 Heart rate 70 /min Rheu Leslie Work Phone: [facility] 03-31-2023 12:50-0500 Systolic blood pressure 112 mm[Hg] Rheu Leslie Work Phone: [facility] 03-31-2023 11:34-0500 Body temperature 97.39 [degF] Rheu Leslie Work Phone: [facility] 03-31-2023 11:34-0500 Body weight 74.39 kg Rheu Leslie Work Phone: [facility] 01-20-2023 08:40-0500 Body temperature 96.21 [degF] Fariab Hill APRN.LINE ANALYST Work Phone: [facility] 01-20-2023 08:40-0500 Body weight 72.45 kg Fariba Hill APRN.LINE ANALYST Work Phone: [facility] 01-20-2023 08:40-0500 Diastolic blood pressure 82 mm[Hg] Fariba Hill APRN.LINE ANALYST Work Phone: [facility] 01-20-2023 08:40-0500 Heart rate 84 /min Fariba Hill APRN.LINE ANALYST Work Phone: [facility] 01-20-2023 08:40-0500 SaO2% (BldA) [Mass fraction] 97 % Fariba Hill APRN.LINE ANALYST Work Phone: [facility] 01-20-2023 08:40-0500 Systolic blood pressure 128 mm[Hg] Fariba Hill APRN.LINE ANALYST Work Phone: [facility] 12-31-2022 10:45-0500 Body temperature 97.5 [degF] Rheu Leslie Work Phone: [facility] 12-31-2022 10:45-0500 Body weight 71.67 kg Rheu Leslie Work Phone: [facility] 12-31-2022 10:45-0500 Diastolic blood pressure 61 mm[Hg] Rheu Leslie Work Phone: [facility] 12-31-2022 10:45-0500 Heart rate 78 /min Rheu Leslie Work Phone: [facility] 12-31-2022 10:45-0500 SaO2% (BldA) [Mass fraction] 97 % Rheu Leslie Work Phone: [facility] 12-31-2022 10:45-0500 Systolic blood pressure 123 mm[Hg] Rheu Leslie Work Phone: [facility] 11-27-2022 09:44-0400 Body temperature 97 [degF] Rheu Leslie Work Phone: [facility] 11-27-2022 09:44-0400 Body weight 71.94 kg Rheu Leslie Work Phone: [facility] 11-27-2022 09:44-0400 Diastolic blood pressure 65 mm[Hg] Rheu Leslie Work Phone: [facility] 11-27-2022 09:44-0400 Heart rate 75 /min Rheu Leslie Work Phone: [facility] 11-27-2022 09:44-0400 Systolic blood pressure 112 mm[Hg] Rheu Leslie Work Phone: [facility] 10-22-2022 14:00-0400 Diastolic blood pressure 55 mm[Hg] Rheu Leslie Work Phone: [facility] 10-22-2022 14:00-0400 Heart rate 51 /min Rheu Leslie Work Phone: [facility] 10-22-2022 14:00-0400 Respiratory rate 18 /min Rheu Leslie Work Phone: [facility] 10-22-2022 14:00-0400 Systolic blood pressure 111 mm[Hg] Rheu Leslie Work Phone: [facility] 10-22-2022 10:52-0400 SaO2% (BldA) [Mass fraction] 100 % Rheu Leslie Work Phone: [facility] 10-22-2022 09:39-0400 Body weight 70.31 kg Rheu Leslie Work Phone: [facility] 10-22-2022 09:03-0400 Body temperature 96.91 [degF] Fariba Hill APRN.LINE ANALYST Work Phone: [facility] 10-22-2022 09:03-0400 Diastolic blood pressure 79 mm[Hg] Fariba Hill APRN.LINE ANALYST Work Phone: [facility] 10-22-2022 09:03-0400 Heart rate 69 /min Fariba Hill APRN.LINE ANALYST Work Phone: [facility] 10-22-2022 09:03-0400 SaO2% (BldA) [Mass fraction] 98 % Fariba Hill APRN.LINE ANALYST Work Phone: [facility] 10-22-2022 09:03-0400 Systolic blood pressure 116 mm[Hg] Fariba Hill APRN.LINE ANALYST Work Phone: [facility] 09-17-2022 09:30-0400 Body temperature 98.01 [degF] Rheu Leslie Work Phone: [facility] 09-17-2022 09:30-0400 Body weight 70.31 kg Rheu Leslie Work Phone: [facility] 09-17-2022 09:30-0400 Diastolic blood pressure 80 mm[Hg] Rheu Leslie Work Phone: [facility] 09-17-2022 09:30-0400 Heart rate 85 /min Rheu Leslie Work Phone: [facility] 09-17-2022 09:30-0400 Respiratory rate 16 /min Rheu Leslie Work Phone: [facility] 09-17-2022 09:30-0400 Systolic blood pressure 139 mm[Hg] Rheu Leslie Work Phone: [facility] 04-14-2022 13:44-0500 Diastolic blood pressure 80 mm[Hg] Rheu Leslie Work Phone: [facility] 04-14-2022 13:44-0500 Heart rate 60 /min Rheu Leslie Work Phone: [facility] 04-14-2022 13:44-0500 Respiratory rate 18 /min Rheu Leslie Work Phone: [facility] 04-14-2022 13:44-0500 Systolic blood pressure 115 mm[Hg] Rheu Leslie Work Phone: [facility] 04-14-2022 10:24-0500 Body weight 66.22 kg Fariba Monika OIL WELL CABLE TOOL DRILLER.LINE ANALYST Work Phone: [facility] 04-14-2022 10:24-0500 Diastolic blood pressure 74 mm[Hg] Fariba Monika OIL WELL CABLE TOOL DRILLER.LINE ANALYST Work Phone: [facility] 04-14-2022 10:24-0500 Heart rate 72 /min Fariba Monika OIL WELL CABLE TOOL DRILLER.LINE ANALYST Work Phone: [facility] 04-14-2022 10:24-0500 Systolic blood pressure 126 mm[Hg] Fariba Monika OIL WELL CABLE TOOL DRILLER.LINE ANALYST Work Phone: [facility] 02-24-2022 13:00-0500 Diastolic blood pressure 46 mm[Hg] Rheu Leslie Work Phone: [facility] 02-24-2022 13:00-0500 Heart rate 62 /min Rheu Leslie Work Phone: [facility] 02-24-2022 13:00-0500 Respiratory rate 16 /min Rheu Leslie Work Phone: [facility] 02-24-2022 13:00-0500 Systolic blood pressure 96 mm[Hg] Rheu Leslie Work Phone: [facility] 02-24-2022 10:00-0500 Body temperature 97.11 [degF] Rheu Leslie Work Phone: [facility] 02-24-2022 10:00-0500 Body weight 69.85 kg Rheu Leslie Work Phone: [facility] 01-05-2022 13:38-0500 Diastolic blood pressure 68 mm[Hg] Rheu Leslie Work Phone: [facility] 01-05-2022 13:38-0500 Heart rate 50 /min Rheu Leslie Work Phone: [facility] 01-05-2022 13:38-0500 Respiratory rate 20 /min Rheu Leslie Work Phone: [facility] 01-05-2022 13:38-0500 Systolic blood pressure 115 mm[Hg] Rheu Leslie Work Phone: [facility] 01-05-2022 10:05-0500 Body weight 70.76 kg Fariba Hill OIL WELL CABLE TOOL DRILLER.LINE ANALYST Work Phone: [facility] 01-05-2022 10:05-0500 Diastolic blood pressure 68 mm[Hg] Fariba Ramosick OIL WELL CABLE TOOL DRILLER.LINE ANALYST Work Phone: [facility] 01-05-2022 10:05-0500 Heart rate 66 /min Fariab Ramosick OIL WELL CABLE TOOL DRILLER.LINE ANALYST Work Phone: [facility] 01-05-2022 10:05-0500 Systolic blood pressure 128 mm[Hg] Fariba Ramosick OIL WELL CABLE TOOL DRILLER.LINE ANALYST Work Phone: [facility] 11-13-2021 16:03-0400 Diastolic blood pressure 63 mm[Hg] Rheu Leslie Work Phone: [facility] 11-13-2021 16:03-0400 Heart rate 60 /min Rheu Leslie Work Phone: [facility] 11-13-2021 16:03-0400 Respiratory rate 18 /min Rheu Leslie Work Phone: [facility] 11-13-2021 16:03-0400 Systolic blood pressure 106 mm[Hg] Rheu Leslie Work Phone: [facility] 11-13-2021 13:20-0400 Body temperature 97 [degF] Rheu Leslie Work Phone: [facility] 11-13-2021 13:20-0400 Body weight 73.94 kg Rheu Leslie Work Phone: [facility] 09-03-2021 15:41-0400 Diastolic blood pressure 69 mm[Hg] Rheu Leslie Work Phone: [facility] 09-03-2021 15:41-0400 Heart rate 74 /min Rheu Leslie Work Phone: [facility] 09-03-2021 15:41-0400 Respiratory rate 18 /min Rheu Leslie Work Phone: [facility] 09-03-2021 15:41-0400 Systolic blood pressure 114 mm[Hg] Rheu Leslie Work Phone: [facility] 09-03-2021 12:55-0400 Body temperature 97.9 [degF] Rheu Leslie Work Phone: [facility] 09-03-2021 12:55-0400 Body weight 71.67 kg Rheu Leslie Work Phone: [facility] 08-06-2021 16:10-0400 Diastolic blood pressure 59 mm[Hg] Rheu Leslie Work Phone: [facility] 08-06-2021 16:10-0400 Heart rate 55 /min Rheu Leslie Work Phone: [facility] 08-06-2021 16:10-0400 Respiratory rate 18 /min Rheu Leslie Work Phone: [facility] 08-06-2021 16:10-0400 Systolic blood pressure 105 mm[Hg] Rheu Leslie Work Phone: [facility] 08-06-2021 13:00-0400 Body temperature 97.59 [degF] Rheu Leslie Work Phone: [facility] 08-06-2021 13:00-0400 Body weight 74.03 kg Rheu Leslie Work Phone: [facility] 07-23-2021 12:15-0400 Diastolic blood pressure 72 mm[Hg] Rheu Leslie Work Phone: [facility] 07-23-2021 12:15-0400 Heart rate 78 /min Rheu Leslie Work Phone: [facility] 07-23-2021 12:15-0400 Respiratory rate 18 /min Rheu Leslie Work Phone: [facility] 07-23-2021 12:15-0400 Systolic blood pressure 118 mm[Hg] Rheu Leslie Work Phone: [facility] 07-23-2021 08:54-0400 Body weight 74.39 kg Fariba Hill OIL WELL CABLE TOOL DRILLER.LINE ANALYST Work Phone: [facility] 07-23-2021 08:54-0400 Diastolic blood pressure 78 mm[Hg] Fariba Hill OIL WELL CABLE TOOL DRILLER.LINE ANALYST Work Phone: [facility] 07-23-2021 08:54-0400 Heart rate 66 /min Fariba Hill OIL WELL CABLE TOOL DRILLER.LINE ANALYST Work Phone: [facility] 07-23-2021 08:54-0400 Systolic blood pressure 122 mm[Hg] Fariba Hill OIL WELL CABLE TOOL DRILLER.LINE ANALYST Work Phone: [facility] 09-15-2020 17:13-0400 Body mass index (BMI) [Ratio] 25.69 kg/m2 [employer] Work Phone: 09-15-2020 17:13-0400 Body temperature 98.6 [degF] [employer] Work Phone: 09-15-2020 17:13-0400 Body weight 65.77 kg [employer] Work Phone: 09-15-2020 17:13-0400 Diastolic blood pressure 94 mm[Hg] [employer] Work Phone: 09-15-2020 17:13-0400 Heart rate 71 /min [employer] Work Phone: 09-15-2020 17:13-0400 Respiratory rate 14 /min [employer] Work Phone: 09-15-2020 17:13-0400 SaO2% (BldA) [Mass fraction] 96 % INDOM Phone: 09-15-2020 17:13-0400 Systolic blood pressure 136 mm[Hg] INDOM Phone: 03-15-2020 16:47-0500 Respiratory Rate 16 /min [facility] [place] 03-15-2020 16:03-0500 Body Temperature 98.91 [degF] [facility] [place] 03-15-2020 16:01-0500 BMI (Body Mass Index) 24.8 kg/m2 [facility] [employer] [place] 03-15-2020 16:01-0500 Body weight 63.5 kg [facility] [employer] [place] , [place] 03-15-2020 16:01-0500 Height 160 cm [facility] [place] 03-15-2020 15:58-0500 BP Diastolic 74 mm[Hg] [facility] [place] 03-15-2020 15:58-0500 BP Systolic 128 mm[Hg] [facility] [place] 03-15-2020 15:58-0500 Pulse (Heart Rate) 103 /min [facility] [employer] [place], [place] 03-15-2020 15:58-0500 Pulse Oximetry 99 % [facility] [place] 07-13-2019 07:18-0400 Body Temperature 97.9 [degF] [employer] [facility] [employer], [place] 07-13-2019 07:18-0400 BP Diastolic 68 mm[Hg] [employer] [facility] [facility] , [place] 07-13-2019 07:18-0400 BP Systolic 109 mm[Hg] [employer] [facility] [place] 07-13-2019 07:18-0400 Pulse (Heart Rate) 75 /min [employer] [facility] [address] [facility] [place] 07-13-2019 07:18-0400 Respiratory Rate 16 /min [employer] [facility] [address] [facility], [place] 07-12-2019 09:51-0400 Pulse Oximetry 98 % [employer] [facility] [place] 07-11-2019 20:57-0400 BMI (Body Mass Index) 32.42 kg/m2 [employer] [facility], [place] 07-11-2019 20:57-0400 Body weight 83.01 kg [employer] [facility] , [place] 07-11-2019 20:57-0400 Height 160 cm [employer] [facility] , [place] 05-12-2019 06:15-0400 BMI (Body Mass Index) 33.66 kg/m2 [facility], [place] 05-12-2019 06:15-0400 Body Temperature 99 [degF] [facility], [place] 05-12-2019 06:15-0400 Body weight 86.18 kg [facility] , [place] 05-12-2019 06:15-0400 BP Diastolic 78 mm[Hg] [facility] , [place] 05-12-2019 06:15-0400 BP Systolic 130 mm[Hg] [facility] , [place] 05-12-2019 06:15-0400 Height 160 cm [facility] , [place] 05-12-2019 06:15-0400 Pulse (Heart Rate) 97 /min [facility], [place] 05-12-2019 06:15-0400 Pulse Oximetry 100 % [facility] , [place] 05-12-2019 06:15-0400 Respiratory Rate 16 /min [facility], [place] 05-04-2019 12:47-0400 Body Temperature 96.21 [degF] [address] [facility], [place] 05-04-2019 12:47-0400 BP Diastolic 73 mm[Hg] [address] , [place] 05-04-2019 12:47-0400 BP Systolic 129 mm[Hg] [address] , [place] 05-04-2019 12:47-0400 Pulse (Heart Rate) 89 /min [address], [place] 05-04-2019 12:47-0400 Respiratory Rate 20 /min [address] [employer] [place] , [place] 01-28-2019 20:45-0500 BP Diastolic 71 mm[Hg] [facility] , [place] 01-28-2019 20:45-0500 BP Systolic 116 mm[Hg] [facility] [address] [place] 01-28-2019 20:39-0500 Body Temperature 98.1 [degF] [facility], [place] 01-28-2019 20:39-0500 Pulse (Heart Rate) 91 /min [facility] [place] 01-28-2019 20:39-0500 Pulse Oximetry 99 % [facility] [place] 01-28-2019 20:39-0500 Respiratory Rate 20 /min [facility], [place] 12-03-2018 19:32-0400 BP Diastolic 63 mm[Hg] [facility] [address] [place] 12-03-2018 19:32-0400 BP Systolic 134 mm[Hg] [facility] [address] [place] 12-03-2018 19:32-0400 Pulse (Heart Rate) 95 /min [facility] [place] 12-03-2018 19:32-0400 Respiratory Rate 16 /min [facility] [place] [employer] [facility], [place] 12-03-2018 17:37-0400 BMI (Body Mass Index) 30.11 kg/m2 [facility] [place] 12-03-2018 17:37-0400 Body Temperature 97.9 [degF] [facility] [place] 12-03-2018 17:37-0400 Body weight 77.11 kg [facility] [place] 12-03-2018 17:37-0400 Pulse Oximetry 99 % [facility] [place] Encounters Encounter Date Encounter Type Care Provider Facility Start: 05-10-2024 End: 05-11-2024 Telephone encounter Craig Wade MD Work Phone: Rheumatology Comment on above: Patient Request Start: 05-08-2024 End: 05-08-2024 ambulatory NIYA SANTIAGO Facility:[facility] Start: 04-26-2024 End: 04-26-2024 Bamboo flowsheet Niya Santiago INTRANET SPECIALIST Work Phone: [facility] Start: 04-26-2024 End: 04-26-2024 Bamboo flowsheet Niya Santiago INTRANET SPECIALIST Work Phone: [facility] Start: 04-26-2024 End: 04-26-2024 ambulatory NIYA SANTIAGO Not Available Start: 04-26-2024 End: 04-26-2024 Office outpatient visit 25 minutes Niya Santiago INTRANET SPECIALIST Work Phone: [facility] Comment on above: ADHD (attention defi cit hyperactivity disorder), combined type (CMS/HCC) (Primary Dx); Neutropenia, unspecified type (CMS/HCC); Opioid abuse, uncomplicated (CMS/[facility]); Cigarette nicotine dependence without complication; Anxiety; Wheezing; Nausea Start: 04-03-2024 End: 04-03-2024 Orders Only Craig Wade MD Work Phone: [facility] Comment on above: Seropositive rheumat oid arthritis (HCC) (Primary Dx) Start: 03-31-2024 End: 03-31-2024 Patient encounter procedure Mansi Leone [facility] Comment on above: SPP Inflammatory Con ditions - Treatment Referral (Actem[facility]); Insurance Authorization ([place] Submission Pending) Start: 03-31-2024 End: 04-04-2024 Refill Niya Santiago INTRANET SPECIALIST Work Phone: [facility] Comment on above: Wheezing Start: 03-31-2024 End: 03-31-2024 ambulatory Mansi Leone [facility] Start: 03-31-2024 End: 03-31-2024 Office outpatient visit 40 minutes Craig Wade MD Work Phone: Rheumatology Comment on above: Seropositive rheumat oid arthritis (HCC) (Primary Dx); Medication monitoring encounter Start: 03-23-2024 End: 03-23-2024 Clinisync Result Encounter Niya Santiago INTRANET SPECIALIST Work Phone: [facility] Unsolicited Start: 03-23-2024 End: 03-23-2024 Clinisync Result Encounter Niya Santiago INTRANET SPECIALIST Work Phone: [facility] Unsolicited Start: 03-01-2024 End: 03-01-2024 Bamboo flowsheet Niya Santiago INTRANET SPECIALIST Work Phone: [facility] Start: 03-01-2024 End: 03-07-2024 Bamboo flowsheet Niya De La Rosajeremie INTRANET SPECIALIST Work Phone: [facility] Start: 03-01-2024 End: 03-07-2024 Clinisync Result Encounter Niya De La Rosajeremie INTRANET SPECIALIST Work Phone: [facility] External Department Unsolicited Start: 03-01-2024 End: 03-01-2024 ambulatory NIYA NELSONClevelandJEREMIE Not Available Start: 03-01-2024 End: 03-01-2024 Patient encounter procedure Niya De La Rosajeremie INTRANET SPECIALIST Work Phone: [facility] Start: 03-01-2024 End: 03-01-2024 Periodic preventive med est patient 40-64yrs Niya Jack INTRANET SPECIALIST Work Phone: [facility] Comment on above: Well woman exam with routine gynecological exam (Primary Dx); Rheumatoid arthritis, unspecified (CMS/HCC); Opioid abuse, uncomplicated (CMS/HCC); Tobacco user; Screening mammogram for breast cancer Start: 02-28-2024 Patient encounter procedure Niya De La Rosajeremie INTRANET SPECIALIST Work Phone: [facility] Start: 02-09-2024 End: 02-09-2024 Refill Niya Nelsonclevelandjeremie INTRANET SPECIALIST Work Phone: [facility] Comment on above: Wheezing Start: 01-25-2024 End: 01-25-2024 ambulatory NIYA NELSONClevelandJEREMIE Not Available Start: 01-25-2024 End: 01-25-2024 Office outpatient visit 25 minutes Niya Santiago INTRANET SPECIALIST Work Phone: [facility] [facility] Comment on above: ADHD (attention defi cit hyperactivity disorder), combined type (CMS/HCC) (Primary Dx); Opioid abuse, uncomplicated (CMS/HCC); Tobacco user; Rheumatoid arthritis, involving unspecified site, unspecified whether rheumatoid factor present (CMS/HCC); Neutropenia, unspecified type (CMS/HCC); Mild depression (CMS/HCC); Anxiety; BMI 29.0-29.9,adult Start: 01-25-2024 End: 01-25-2024 Bamboo flowsheet Niya Aichholz INTRANET SPECIALIST Work Phone: [facility] Start: 01-25-2024 End: 01-25-2024 Bamboo flowsheet Niya Aichholz INTRANET SPECIALIST Work Phone: [facility] Start: 12-19-2023 End: 12-20-2023 Refill Niya Aichholz INTRANET SPECIALIST Work Phone: [facility] Comment on above: Wheezing Start: 10-21-2023 End: 10-21-2023 Bamboo flowsheet Niya Aichholz INTRANET SPECIALIST Work Phone: [facility] Start: 10-21-2023 End: 10-21-2023 Bamboo flowsheet Niya Aichholz INTRANET SPECIALIST Work Phone: [facility] Start: 10-21-2023 End: 10-21-2023 ambulatory NIYA AICHHOLZ Not Available Start: 10-21-2023 End: 10-21-2023 Office outpatient visit 25 minutes Niya Aichholz INTRANET SPECIALIST Work Phone: [facility] Comment on above: Adult ADHD (attentio n deficit hyperactivity disorder) (CMS/HCC) (Primary Dx); Neutropenia, unspecified (CMS/[facility]); Tobacco user; BMI 29.0-29.9,adult; Rheumatoid arthritis, involving unspecified site, unspecified whether rheumatoid factor present (CMS/[facility]); Anxiety; Subacute maxillary sinusitis; Wheezing; Nausea Start: 08-16-2023 Telephone encounter Fariba carey OIL WELL CABLE TOOL DRILLER.LINE ANALYST Work Phone: Infusion Start: 07-22-2023 End: 07-22-2023 ambulatory NIYA AICHHOLZ Not Available Start: 07-16-2023 ambulatory [facility] Rheumatolo gy Comment on above: Infusion Wednesday Start: 07-16-2023 E-mail encounter margarito haider caregiver [facility] Rheumatology Start: 06-28-2023 ambulatory Nurse Lizbeth [facility] Work Phone: Infusion Start: 06-25-2023 Telephone encounter Fariba carey OIL WELL CABLE TOOL DRILLER.LINE ANALYST Work Phone: Infusion Start: 06-21-2023 ambulatory [facility] Infusion Comment on above: Infusion Wednesday Start: 06-21-2023 E-mail encounter margarito haider caregiver [facility] Infusion Start: 06-20-2023 Orders Only Fariba Hill OIL WELL CABLE TOOL DRILLER.LINE ANALYST Work Phone: Rheumatology Start: 05-28-2023 Telephone encounter Fariba carey OIL WELL CABLE TOOL DRILLER.LINE ANALYST Work Phone: Infusion Start: 05-26-2023 End: 05-26-2023 ambulatory TINO BLAKE Facility:[facility] Start: 05-26-2023 End: 05-26-2023 Office outpatient visit 15 minutes Silvia Cooper APRN.LINE ANALYST Work Phone: [facility] Comment on above: Wheezing (Primary Dx ) Start: 05-26-2023 End: 05-26-2023 Patient encounter procedure Fariba Hill APRN.LINE ANALYST Work Phone: Rheumatology Comment on above: Seropositive [...] encounter margarito haider caregiver [facility] Start: 05-14-2023 Telephone encounter Corinna Kc ( Coord) Radiology Comment on above: Appointment Start: 05-03-2023 End: 05-03-2023 ambulatory NIYA SANTIAGO Not Available Start: 04-28-2023 End: 04-28-2023 Patient encounter procedure Fariba Hill APRN.LINE ANALYST Work Phone: Rheumatology Comment on above: Seropositive rheumat oid arthritis (HCC) (Primary Dx); Localized superficial swelling, mass, or lump; Encounter for medication review and counseling; Synovitis; Encounter to discuss test results; Medication monitoring encounter; Smoker Start: 04-28-2023 Telephone encounter Fariba carey APRN.CNP Work Phone: Infusion Start: 04-28-2023 End: 04-28-2023 ambulatory Rheu Chair 9 [place] Work Phone: Infusion Comment on above: Seropositive rheumat oid arthritis (HCC) (Primary Dx) Start: 04-25-2023 Orders Only Fariba Hill APRN.LINE ANALYST Work Phone: Rheumatology Start: 04-20-2023 Telephone encounter Juan Daniel Mcarthur MD Work Phone: Rheumatology Comment on above: No Show (To f/u apt) Start: 03-31-2023 End: 03-31-2023 ambulatory Rheu Chair 4 [place] Work Phone: Infusion Comment on above: Seropositive rheumat oid arthritis (HCC) (Primary Dx) Start: 03-29-2023 ambulatory [facility] Infusion Comment on above: Infusion for 03/31/23 Start: 03-29-2023 E-mail encounter margarito m caregiver [facility] Provider [facility] Start: 03-28-2023 Orders Only Fariba Hill APRN.LINE ANALYST Work Phone: Rheumatology Start: 02-16-2023 Telephone encounter Fariba carey APRN.LINE ANALYST Work Phone: Infusion Start: 02-01-2023 [facility] Work Phone: Infusion Start: 01-29-2023 Orders Only Fariba Hill APRN.LINE ANALYST Work Phone: Rheumatology Comment on above: Infusion 02/13 Start: 01-20-2023 Telephone encounter Fariba carey APRN.LINE ANALYST Work Phone: Rheumatology Comment on above: Medication Problem Start: 01-20-2023 End: 01-20-2023 Patient encounter procedure Fariba Hill APRN.CNP Work Phone: Rheumatology Comment on above: Seropositive [...] Dx) Start: 12-30-2022 Orders Only Fariba Hill APRN.LINE ANALYST Work Phone: Rheumatology Start: 12-29-2022 ambulatory [facility] Infusion Comment on above: Infusion Start: 12-29-2022 E-mail encounter margarito haider caregiver [facility] Provider [facility] Start: 12-17-2022 Telephone encounter Fariba carye OIL WELL CABLE TOOL DRILLER.LINE ANALYST Work Phone: Rheumatology Comment on above: Results Start: 12-14-2022 Telephone encounter Fariba carey OIL WELL CABLE TOOL DRILLER.LINE ANALYST Work Phone: [facility] [place] Comment on above: Lab Orders Start: 12-11-2022 Telephone encounter Fariba carey OIL WELL CABLE TOOL DRILLER.LINE ANALYST Work Phone: Rheumatology Comment on above: Results Start: 11-27-2022 End: 11-27-2022 ambulatory Rheu Chair 9 [place] Work Phone: Infusion Comment on above: Seropositive rheumat oid arthritis (HCC) (Primary Dx) Start: 11-25-2022 Telephone encounter Nurse [facility] Leslie Work Phone: Infusion Start: 11-11-2022 Telephone encounter Tino Blake MD Work Phone: [place] Start: 10-22-2022 End: 10-22-2022 ambulatory Rheu Chair 7 [place] Work Phone: Infusion Comment on above: Seropositive rheumat oid arthritis (HCC) (Primary Dx); Vitamin D deficiency; Synovitis Start: 10-22-2022 End: 10-22-2022 Patient encounter procedure Fariba Hill APRN.LINE ANALYST Work Phone: Rheumatology Comment on above: Seropositive rheumat oid arthritis (HCC) (Primary Dx); Synovitis; Vitamin D deficiency; Encounter for monitoring leflunomide therapy; Encounter for medication review and counseling; Encounter to discuss test results; Counseling on health promotion and disease prevention; Smoker Start: 10-20-2022 ambulatory [facility] Infusion Comment on above: Infusion Start: 10-20-2022 E-mail encounter fro m caregiver [facility] Provider [facility] Start: 09-17-2022 End: 09-17-2022 ambulatory Rheu Chair 8 [place] Work Phone: Infusion Comment on above: Seropositive rheumat oid arthritis (HCC) (Primary Dx) Start: 09-15-2022 ambulatory Fariba Hill APRN.LINE ANALYST Work Phone: Infusion Comment on above: Infusion for 09/17/22 Start: 09-15-2022 E-mail encounter fro m caregiver Fariba Hill APRN.LINE ANALYST Work Phone: [facility] Start: 08-31-2022 Orders Only Fariba Hill APRN.LINE ANALYST Work Phone: Rheumatology Start: 08-05-2022 Telephone encounter Juan Daniel Mcarthur MD Work Phone: [facility] Comment on above: Insurance Authorizat ion (Prior Auth Delayed: P2P requested for [place]) Start: 07-24-2022 Orders Only Fariba Hill APRN.LINE ANALYST Work Phone: Rheumatology Start: 06-23-2022 End: 06-23-2022 ambulatory Rheu Chair 5 [place] Work Phone: Infusion Comment on above: Seropositive rheumat oid arthritis (HCC) (Primary Dx); Vitamin D deficiency Start: 06-22-2022 ambulatory Fariba Hill APRN.LINE ANALYST Work Phone: Infusion Comment on above: Infusion Confirmatio n Start: 06-22-2022 E-mail encounter fro m caregiver Fariba Hill APRN.LINE ANALYST Work Phone: [facility] Start: 04-28-2022 End: 04-28-2022 ambulatory Fariba Hill APRN.LINE ANALYST Work Phone: Rheumatology Comment on above: Seropositive rheumat oid arthritis (HCC) (Primary Dx) Start: 04-28-2022 End: 04-28-2022 Telemedicine consultation with patient Fariba Hill APRN.LINE ANALYST Work Phone: [facility] Start: 04-15-2022 Orders Only Fariba Hill APRN.LINE ANALYST Work Phone: Rheumatology Comment on above: Results [...] End: 04-14-2022 Patient encounter procedure Fariba Hill APRN.LINE ANALYST Work Phone: Rheumatology Comment on above: Seropositive rheumat oid arthritis (HCC) (Primary Dx); Vitamin D deficiency; Smoker; Pain in left foot; Encounter for medication review and counseling; Encounter to discuss test results; Encounter for monitoring leflunomide therapy; Counseling on health promotion and disease prevention; High risk medication use Start: 04-10-2022 Orders Only Fariba Hill APRN.LINE ANALYST Work Phone: Rheumatology Start: 03-07-2022 Refill Fariba Hill APRN.LINE ANALYST Work Phone: Rheumatology Comment on above: Refill Request Start: 02-25-2022 Telephone encounter Fariba carey APRN.LINE ANALYST Work Phone: Rheumatology Comment on above: Results Start: 02-24-2022 End: 02-24-2022 Subsequent hospital visit by physician [facility] Radiology Comment on above: Left without seen Start: 02-24-2022 End: 02-24-2022 ambulatory Rheu Chair 7 [place] Work Phone: Infusion Comment on above: Seropositive rheumat oid arthritis (HCC) (Primary Dx) Start: 02-20-2022 Telephone encounter Fariba carey APRN.LINE ANALYST Work Phone: Infusion Comment on above: Patient Question Start: 02-03-2022 ambulatory Pcp (Historical) [facility] Start: 01-30-2022 Orders Only Fariba Hill APRN.LINE ANALYST Work Phone: Rheumatology Start: 01-26-2022 Telephone encounter Juan Daniel Mcarthur MD Work Phone: [facility] Comment on above: Insurance Authorizat ion (Prior auth delayed: Additional Info Needed ([employer])) Start: 01-06-2022 Telephone encounter [facility] [place] Comment on above: Smoking Cessation Patient Update Start: 01-05-2022 End: 01-05-2022 ambulatory Rheu Chair 2 [place] Work Phone: Infusion Comment on above: Vitamin D deficiency (Primary Dx); Seropositive rheumatoid arthritis (HCC) Start: 01-05-2022 End: 01-05-2022 Patient encounter procedure Fariba Hill APRN.LINE ANALYST Work Phone: Rheumatology Comment on above: Seropositive rheumat oid arthritis (HCC) (Primary Dx); Smoker; Pain in left foot; Encounter for medication review and counseling; Encounter to discuss test results; Encounter for monitoring leflunomide therapy; Counseling on health promotion and disease prevention; High risk medication use; Rheumatoid arthritis flare (HCC) Start: 01-02-2022 ambulatory Fariba Hill APRN.LINE ANALYST Work Phone: Infusion Comment on above: Infusion for tomorro w. Start: 01-02-2022 E-mail encounter fro m caregiver Fariba Hill APRN.LINE ANALYST Work Phone: [facility] Start: 01-02-2022 Telephone encounter Fariba carey APRN.LINE ANALYST Work Phone: Infusion Comment on above: Patient Question Start: 12-16-2021 Orders Only Fariba Hill APRN.LINE ANALYST Work Phone: Rheumatology Start: 12-15-2021 Telephone encounter Fariba carey APRN.LINE ANALYST Work Phone: Infusion Start: 11-13-2021 End: 11-13-2021 ambulatory [place] Chair 5 [place] Work Phone: Infusion Comment on above: Seropositive rheumat oid arthritis (HCC) (Primary Dx); Vitamin D deficiency Start: 11-11-2021 ambulatory Fariba Hill APRN.LINE ANALYST Work Phone: Infusion Comment on above: Infusion for tomorro w Start: 11-11-2021 E-mail encounter fro m caregiver Fariba Hill APRN.LINE ANALYST Work Phone: [facility] Start: 11-11-2021 Telephone encounter Fariba carey APRN.LINE ANALYST Work Phone: Infusion Comment on above: Patient Question Start: 11-06-2021 Orders Only Fariba Hill APRN.LINE ANALYST Work Phone: Rheumatology Start: 11-03-2021 End: 11-04-[address] NONE LISTED REQUEST Facility: Start: 10-30-2021 Orders Only Fariba Hill APRN.LINE ANALYST Work Phone: Rheumatology Start: 10-29-2021 End: 10-29-2021 ambulatory Fariba Hill APRN.LINE ANALYST Work Phone: Rheumatology Comment on above: Seropositive [...] End: 10-29-2021 Telemedicine consultation with patient Fariba Hill APRN.LINE ANALYST Work Phone: [facility] Start: 10-28-2021 Telephone encounter Fariba carey APRN.LINE ANALYST Work Phone: Infusion Start: 10-24-2021 Orders Only Fariba Hill OIL WELL CABLE TOOL DRILLER.LINE ANALYST Work Phone: Rheumatology Start: 10-07-2021 End: 10-07-[address] NONE LISTED REQUEST Facility:[facility] Start: 09-05-2021 Encounter for preprocedural laboratory examination DR PATRICIO RAM . [facility] Start: 09-05-2021 End: 09-05-[address] PATRICIO ARM . Facility:[facility] Start: 09-04-2021 End: 09-05-2021 ambulatory [...] Facility:[facility] Start: 09-01-2021 Telephone encounter Fariba carey OIL WELL CABLE TOOL DRILLER.LINE ANALYST Work Phone: Infusion Comment on above: Question Start: 08-15-2021 End: 08-15-2021 ambulatory ADRIANA STEPHENS Facility:[facility] Start: 08-07-2021 Telephone encounter Fariba carey OIL WELL CABLE TOOL DRILLER.LINE ANALYST Work Phone: Rheumatology Comment on above: Results [...] End: 07-23-2021 Patient encounter procedure Fariba Hill APRN.LINE ANALYST Work Phone: Rheumatology Comment on above: Seropositive rheumat oid arthritis (HCC) (Primary Dx); Medication monitoring encounter; H/O noncompliance with medical treatment, presenting hazards to health; Encounter for medication review and counseling; Encounter to discuss test results; Counseling on health promotion and disease prevention; Encounter for monitoring leflunomide therapy Start: 07-22-2021 Telephone encounter Fariba carey APRN.LINE ANALYST Work Phone: Infusion Comment on above: Question; Return Pro vider Call Start: 07-15-2021 Telephone encounter Fariba carey APRN.LINE ANALYST Work Phone: Rheumatology Comment on above: Appointment Start: 07-11-2021 End: 07-11-2021 Emergency department patient visit [facility] Start: 07-08-2021 Telephone encounter Fariba carey APRN.LINE ANALYST Work Phone: [facility] Comment on above: Insurance Authorizat ion (Prior Auth Delayed: Additional Info needed for [employer]) Start: 07-04-2021 Orders Only Juan Daniel sanchez MD Work Phone: Rheumatology Start: 06-24-2021 Telephone encounter Fariba carey APRN.LINE ANALYST Work Phone: Rheumatology Comment on above: Medication Problem Start: 06-17-2021 Telephone encounter Fariba carey APRN.LINE ANALYST Work Phone: Rheumatology Comment on above: Results Start: 09-15-2020 End: 09-15-2020 Emergency department patient visit [facility] Start: 09-15-2020 End: 09-15-2020 Emergency department patient visit [facility] ED Comment on above: Pneumonia of both tyra ngs due to infectious organism, unspecified part of lung (Primary Dx) Start: 03-15-2020 End: 03-15-2020 Emergency department patient visit [facility] ED Comment on above: Suspected COVID-19 v irus infection (Primary Dx) Start: 07-11-2019 End: 07-13-2019 Evaluation and management of inpatient Tosha Viera Work Phone: [facility] Labor and Delivery Start: 07-06-2019 End: 07-06-2019 Subsequent hospital visit by physician [facility] Laboratory Comment on above: 38 weeks gestation o f Start: 05-12-2019 End: 05-12-2019 Emergency department patient visit Mk Mayo Work Phone: [facility] ED Comment on above: Superficial thrombop hlebitis of left upper extremity (Primary Dx) Start: 05-04-2019 End: 05-04-2019 Subsequent hospital visit by physician [facility] Treatment [address] [facility] Start: 05-03-2019 End: 05-03-2019 Subsequent hospital visit by physician [facility] [address] [facility] Comment on above: Canceled (Patient) Start: 05-02-2019 End: 05-02-2019 Subsequent hospital visit by physician [facility] [address] [facility] Comment on above: Canceled (Patient) Start: 05-01-2019 End: 05-01-2019 Subsequent hospital visit by physician [facility] Laboratory Comment on above: Encounter for superv ision of other normal in third trimester; 29 weeks gestation of Start: 04-04-2019 End: 04-04-2019 Subsequent hospital visit by physician [facility] Laboratory Comment on above: Acute nasopharyngiti s Start: 2019 End: 02-19-2019 Subsequent hospital visit by physician [facility] Ultrasound Comment on above: Right upper quadrant abdominal pain Start: 01-28-2019 End: 01-28-2019 Emergency department patient visit [facility] ED Comment on above: Carpal tunnel syndro me of right wrist (Primary Dx) Start: 01-16-2019 End: 01-16-2019 Subsequent hospital visit by physician [facility] Laboratory Comment on above: Screening for cervic al cancer Start: 12-19-2018 End: 12-19-2018 Subsequent hospital visit by physician [facility] Laboratory Comment on above: Encounter for superv ision of normal in first trimester, unspecified ; Screening for cystic fibrosis; Screening, , for anatomic survey Start: 12-03-2018 End: 12-03-2018 Emergency department patient visit [facility] ED Comment on above: Threatened miscarria ge (Primary Dx); Yeast infection Procedures Date Procedure Procedure Detail Performing Clinician Start: 03-23-2024 MM TOMOSYNTHESIS SCR EENING BI Niya Santiago INTRANET SPECIALIST Work Phone: Start: 03-23-2024 Mammography Niya noble INTRANET SPECIALIST Work Phone: Start: 03-01-2024 IGP,APTIMA HPV,AGE GDLN Niya De La oRsajeremie INTRANET SPECIALIST Work Phone: Start: 03-01-2024 Microscopic observat ion [Identifier] in Cervix by Cyto stain Niya De La Rosajeremie INTRANET SPECIALIST Work Phone: Start: 05-26-2023 C-reactive protein Fariba Hill OIL WELL CABLE TOOL DRILLER.LINE ANALYST Work Phone: Start: 05-26-2023 CREATININE BLD Fariba iverson OIL WELL CABLE TOOL DRILLER.LINE ANALYST Work Phone: Start: 05-26-2023 Transferase alanine amino alt sgpt Fariba Hill OIL WELL CABLE TOOL DRILLER.LINE ANALYST Work Phone: Start: 11-27-2022 Blood count complete auto&auto difrntl wbc Fariba Hill OIL WELL CABLE TOOL DRILLER.LINE ANALYST Work Phone: Start: 11-27-2022 C-reactive protein Fariba Hill OIL WELL CABLE TOOL DRILLER.LINE ANALYST Work Phone: Start: 10-22-2022 Blood count complete auto&auto difrntl wbc Fariba Hill OIL WELL CABLE TOOL DRILLER.LINE ANALYST Work Phone: Start: 10-22-2022 C-reactive protein Fariba Hill OIL WELL CABLE TOOL DRILLER.LINE ANALYST Work Phone: Start: 06-23-2022 Blood count complete auto&auto difrntl wbc Fariba Hill OIL WELL CABLE TOOL DRILLER.LINE ANALYST Work Phone: Start: 02-24-2022 Blood count complete auto&auto difrntl wbc Fariba Hill OIL WELL CABLE TOOL DRILLER.LINE ANALYST Work Phone: Start: 02-24-2022 C-reactive protein Fariba Hill OIL WELL CABLE TOOL DRILLER.LINE ANALYST Work Phone: Start: 01-05-2022 25 hydroxy includes fractions if performed Fariba Shara Monika OIL WELL CABLE TOOL DRILLER.LINE ANALYST Work Phone: Start: 09-03-2021 Urine test visual color cmprsn meths Fariba Haider Monika OIL WELL CABLE TOOL DRILLER.LINE ANALYST Work Phone: Start: 08-06-2021 Urine test visual color cmprsn meths Fariba Haider Monika OIL WELL CABLE TOOL DRILLER.LINE ANALYST Work Phone: Start: 07-23-2021 Urine test visual color cmprsn meths Fariba Haider Monika OIL WELL CABLE TOOL DRILLER.LINE ANALYST Work Phone: Start: 09-15-2020 Radiologic exam ches t 2 views Loida Caro PA-C Work Phone: Start: 07-11-2019 Blood count complete auto&auto difrntl wbc Tosha Almazanansley Viera Work Phone: Start: 07-11-2019 Drug screen class list a Toshagabi Viera Work Phone: Start: 05-01-2019 Blood count hemoglobin Tosha Garay Maximiliano Work Phone: Start: 05-01-2019 Blood typing serolog ic rh (d) Tosha Tanisha Viera Work Phone: Start: 05-01-[address] gtt 3 specimens Tosha Garay Maximiliano Work Phone: Start: 04-04-2019 Iaadiadoo influenza Elda ashley Tanisha Viera Work Phone: Start: 2019 Us abdominal real ti me w/image limited Tosha Almazanansley Viera OIL WELL CABLE TOOL DRILLER - CNM Work Phone: Start: 01-16-2019 Microscopic observat ion [Identifier] in Cervix by Cyto stain Niya Santiago INTRANET SPECIALIST Work Phone: Start: 12-19-2018 Antibody screen Start: 12-19-2018 Obstetric panel Tosha Viera Work Phone: Start: 12-19-2018 Blood typing serologic abo Tosha Viera Work Phone: Start: 12-19-2018 Drug screen, qualitate/multi Tosha Viera Work Phone: Start: 12-03-2018 Urinalysis microscopic only Loida link bird Work Phone: Start: 12-03-2018 Urnls dip stick/tabl et rgnt auto w/o microscopy Loida link bird Work Phone: Start: 12-03-2018 Smr prim src wet jude nt nfct agt L[employer] link [employer] Work Phone: Start: 12-03-2018 Blood count complete automated [employer] Work Phone: Start: 12-03-2018 Blood typing serologic abo [employer] Work Phone: Start: 12-03-2018 Comprehensive metabo lic panel Loida link bird Work Phone: Start: 12-03-2018 Gonadotropin chorion ic quantitative [employer] Work Phone: Start: 12-30-2017 Adult depression scr eening assessment Juan Daniel Leos MD Work Phone: Plan of Treatment Date Care Activity Detail Author Start: 06-03-2031 Urine microalbumin profile [facility] Start: 03-01-2027 Screening for malignant neoplasm of cervix [facility] Start: 03-23-2025 Screening for malignant neoplasm of breast [facility] Start: 08-04-2024 End: 08-04-2024 Patient encounter procedure 08/04/2024 9:00 AM EDT Office Visit Rheumatology [address] [place] [address] Craig Wade MD [address] [place] [address] Return in about 3 months (around 06/28/2024). Rheumatology Comment on above: Return in about 3 months (around ). Start: 04-26-2024 End: 04-26-2024 Patient encounter procedure 04/26/2024 1:00 PM EST Office Visit [facility] [address] [place] [id number] Niya Santiago, MARY [address] [place] [address] [facility] Start: 04-03-2024 End: 07-03-2024 BLOOD TB SCREEN BLOOD TB SCREEN Lab Routine Seropositive rheumatoid arthritis (HCC) Expected: 04/03/2024, Expires: 07/03/2024 [facility] Comment on above: Expected: 04/03/2024, Expires: Start: 04-03-2024 End: 07-03-2024 Hepatitis B virus core Ab [Presence] in Serum HEPATITIS B CORE ANTIBODY TOTAL Lab Routine Seropositive rheumatoid arthritis (HCC) Expected: 04/03/2024, Expires: 07/03/2024 [facility] Comment on above: Expected: 04/03/2024, Expires: Start: 04-03-2024 End: 07-03-2024 Hepatitis B virus surface Ab [Presence] in Serum HEPATITIS B SURFACE ANTIBODY Lab Routine Seropositive rheumatoid arthritis (HCC) Expected: 04/03/2024, Expires: 07/03/[address] [facility] Work Phone: Comment on above: Expected: 04/03/2024, Expires: Start: 04-03-2024 End: 07-03-2024 Hepatitis B virus surface Ag [Presence] in Serum HEPATITIS B SURFACE ANTIGEN Lab Routine Seropositive rheumatoid arthritis (HCC) Expected: 04/03/2024, Expires: 07/03/2024 [facility] Comment on above: Expected: 04/03/2024, Expires: Start: 04-03-2024 End: 07-03-2024 Hepatitis C virus Ab [Presence] in Serum HEPATITIS C ANTIBODY IA WITH CONFIRMATION Lab Routine Seropositive rheumatoid arthritis (HCC) Expected: 04/03/2024, Expires: 07/03/2024 [facility] Comment on above: Expected: 04/03/2024, Expires: Start: 03-31-2024 End: 06-30-2024 C reactive protein [Mass/volume] in Serum or Plasma C-REACTIVE PROTEIN Lab Routine Seropositive rheumatoid arthritis (HCC) Expected: 03/31/2024, Expires: 06/30/2024 [facility] Comment on above: Expected: 03/31/2024, Expires: Start: 03-31-2024 End: 06-30-2024 CBC W Auto Differential panel - Blood COMPLETE BLOOD COUNT AND DIFFERENTIAL Lab Routine Seropositive rheumatoid arthritis (HCC) Expected: 03/31/2024, Expires: 06/30/2024 [facility] Comment on above: Expected: 03/31/2024, Expires: Start: 03-31-2024 End: 06-30-2024 Comprehensive metabolic 2000 panel - Serum or Plasma COMPREHENSIVE METABOLIC PANEL Lab Routine Seropositive rheumatoid arthritis (HCC) Expected: 03/31/2024, Expires: 06/30/[address] [facility] Work Phone: Comment on above: Expected: 03/31/2024, Expires: Start: 03-31-2024 End: 06-30-2024 Erythrocyte sedimentation rate SEDIMENTATION RATE, WESTERGREN Lab Routine Seropositive rheumatoid arthritis (HCC) Expected: 03/31/2024, Expires: 06/30/2024 [facility] Comment on above: Expected: 03/31/2024, Expires: Start: 02-28-2024 End: 02-28-2024 Patient encounter procedure 02/28/2024 10:30 AM EST Procedure Visit [facility] [address] [place] [address] Niya Santiago NP [address] [place] [address] [facility] Start: 2024 Screening for malignant neoplasm of breast Mammogram [facility] Start: 01-18-2024 End: 01-18-2024 Patient encounter procedure 01/18/2024 9:40 AM EST Office Visit [facility] [address] [place] [address] Niya Santiago NP [address] [place] [address] [facility] Start: 01-17-2024 Cervical cancer screen Cervical cancer screen [facility] BRIAN OLGUIN Start: 01-17-2024 Screening for malignant neoplasm of cervix [facility] Start: 11-10-2023 End: 11-10-2023 ambulatory 11/10/2023 11:30 AM EDT Infusion Center Infusion [address] [facility] [place] [address] [facility] Comment on above: [facility] Start: 11-10-2023 End: 11-10-2023 Patient encounter procedure 11/10/2023 11:00 AM EDT Office Visit Rheumatology [address] [facility] [place] [address] Fariba Hill, OIL WELL CABLE TOOL DRILLER.LINE ANALYST [address] [facility] [place] [address] Add on per Fariba Hill Rheumatology Comment on above: Add on per Fariba Hill Start: 10-29-2023 End: 10-29-2023 ambulatory 10/29/2023 7:30 AM EDT Infusion Center Infusion [address] [facility] [place] [address] [facility] Comment on above: [facility] Start: 10-24-2023 Influenza vaccination [facility] Start: 10-21-2023 End: 10-20-2024 CBC W Auto Differential panel - Blood CBC and differential Lab Routine Neutropenia, unspecified (CMS/HCC) Expected: 10/21/2023 (Approximate), Expires: 10/20/2024 [facility] Work Phone: Comment on above: Expected: 10/21/2023 (Approximate), Expi res: 10/20/2024 Start: 10-13-2023 End: 10-13-2023 ambulatory 10/13/2023 11:30 AM EDT Infusion Center Infusion [address] [facility] [place] [address] [facility] Comment on above: [facility] Start: 10-13-2023 End: 10-13-2023 Patient encounter procedure 10/13/2023 11:00 AM EDT Office Visit Rheumatology [address] [place] [address] Fariba Hill, OIL WELL CABLE TOOL DRILLER.LINE ANALYST [address] [place] [address] Add on per Fariba Hill Rheumatology Comment on above: Add on per Fariba Hill Start: 10-01-2023 End: 10-01-2023 ambulatory 10/01/2023 1:30 PM EDT Infusion Center Infusion [address] [place] [address] [facility] Comment on above: [facility] Start: 09-15-2023 End: 09-15-2023 Patient encounter procedure 09/15/2023 1:00 PM EDT Office Visit Rheumatology [address] [facility] [place] [address] Fariba Hill, OIL WELL CABLE TOOL DRILLER.LINE ANALYST [address] [place] [address] Add on per Fariba Hill Rheumatology Comment on above: Add on per Fariba Hill Start: 09-03-2023 End: 09-03-2023 ambulatory 09/03/2023 7:30 AM EDT Infusion Center Infusion [address] [place] [address] [facility] Comment on above: [facility] Start: 08-18-2023 End: 08-18-2023 ambulatory 08/18/2023 11:30 AM EDT Infusion Center Infusion [address] [place] [address] [facility] Comment on above: [facility] Start: 07-21-2023 End: 07-21-2023 Patient encounter procedure 07/21/2023 1:00 PM EDT Office Visit Rheumatology [address] [place] [address] Fariba Hill, OIL WELL CABLE TOOL DRILLER.LINE ANALYST [address] [facility] [place] [address] Add on per Fariba Hill Rheumatology Comment on above: Add on per Fariba Hill Start: 07-21-2023 End: 07-21-2023 ambulatory 07/21/2023 11:30 AM EDT Infusion Center Infusion [address] [place] [address] [facility] Comment on above: [facility] Start: 06-23-2023 End: 06-23-2023 ambulatory Infusion Comment on above: [facility] Needs to be at work at 2:00 Start: 06-23-2023 End: 06-23-2023 Patient encounter procedure 06/23/2023 10:30 AM EDT Office Visit Rheumatology [address] [place] [address] Fariba Hill, OIL WELL CABLE TOOL DRILLER.LINE ANALYST [address] [facility] [place] [address] Add on per Fariba Hill Rheumatology Comment on above: Add on per Fariba Hill Start: 02-22-2023 Behavioral Health Screening Behavioral Health Screening [facility] Start: 02-22-2023 Depression Assessment Depression Assessment [facility] Start: 01-18-2023 End: 04-19-2023 Alanine aminotransferase [Enzymatic activity/volume] in Serum or Plasma ALT/SGPT Lab Routine Seropositive rheumatoid arthritis (HCC) Expected: 01/18/2023 (Approximate), Expires: 04/19/[address] [facility] Work Phone: Comment on above: Expected: 01/18/2023 (Approximate), Expi res: 04/19/2023 Start: 01-18-2023 End: 04-19-2023 Aspartate aminotransferase [Enzymatic activity/volume] in Serum or Plasma AST/SGOT BLD Lab Routine Seropositive rheumatoid arthritis (HCC) Expected: 01/18/2023 (Approximate), Expires: 04/19/[address] [facility] Work Phone: Comment on above: Expected: 01/18/2023 (Approximate), Expi res: 04/19/2023 Start: 01-18-2023 End: 04-19-2023 CBC W Auto Differential panel - Blood CBC + DIFF Lab Routine Seropositive rheumatoid arthritis (HCC) Expected: 01/18/2023 (Approximate), Expires: 04/19/[address] [facility] Work Phone: Comment on above: Expected: 01/18/2023 (Approximate), Expi res: 04/19/2023 Start: 01-18-2023 End: 04-19-2023 CREATININE BLD CREATININE BLD Lab Routine Seropositive rheumatoid arthritis (HCC) Expected: 01/18/2023 (Approximate), Expires: 04/19/[address] [facility] Work Phone: Comment on above: Expected: 01/18/2023 (Approximate), Expi res: 04/19/2023 Start: 12-12-2022 End: 02-11-2023 C reactive protein [Mass/volume] in Serum or Plasma C-REACTIVE PROTEIN (CRP) Lab Routine Seropositive rheumatoid arthritis (HCC) Expected: 12/12/2022 (Approximate), Expires: 02/11/[address] [facility] Work Phone: Comment on above: Expected: 12/12/2022 (Approximate), Expi res: 02/11/2023 Start: 12-12-2022 End: 02-11-2023 CBC W Auto Differential panel - Blood CBC + DIFF Lab Routine Seropositive rheumatoid arthritis (HCC) Expected: 12/12/2022 (Approximate), Expires: 02/11/[address] [facility] Work Phone: Comment on above: Expected: 12/12/2022 (Approximate), Expi res: 02/11/2023 Start: 12-12-2022 End: 02-11-2023 Comprehensive metabolic 2000 panel - Serum or Plasma COMP METABOLIC PANEL Lab Routine Seropositive rheumatoid arthritis (HCC) Expected: 12/12/2022 (Approximate), Expires: 02/11/[address] [facility] Work Phone: Comment on above: Expected: 12/12/2022 (Approximate), Expi res: 02/11/2023 Start: 12-12-2022 End: 02-11-2023 Erythrocyte sedimentation rate SED RATE WESTERGREN Lab Routine Seropositive rheumatoid arthritis (HCC) Expected: 12/12/2022 (Approximate), Expires: 02/11/[address] [facility] Work Phone: Comment on above: Expected: 12/12/2022 (Approximate), Expi res: 02/11/2023 Start: 12-11-2022 End: 03-12-2023 Alanine aminotransferase [Enzymatic activity/volume] in Serum or Plasma ALT/SGPT Lab Routine Seropositive rheumatoid arthritis (HCC) Expected: 12/11/2022, Expires: 03/12/[address] [facility] Work Phone: Comment on above: Expected: 12/11/2022, Expires: Start: 12-11-2022 End: 03-12-2023 Aspartate aminotransferase [Enzymatic activity/volume] in Serum or Plasma AST/SGOT BLD Lab Routine Seropositive rheumatoid arthritis (HCC) Expected: 12/11/2022, Expires: 03/12/[address] [facility] Work Phone: Comment on above: Expected: 12/11/2022, Expires: 4 Start: 10-23-2022 Influenza vaccination [facility] Start: 06-13-2022 End: 08-13-2022 25-hydroxyvitamin D3 [Mass/volume] in Serum or Plasma VITAMIN D 25 HYDROXY Lab Routine Vitamin D deficiency Expected: 06/13/2022 (Approximate), Expires: 08/13/[address] [facility] Work Phone: Comment on above: Expected: 06/13/2022 (Approximate), Expi res: 08/13/2022 Start: 06-12-2022 End: 08-12-2022 C reactive protein [Mass/volume] in Serum or Plasma C-REACTIVE PROTEIN (CRP) Lab Routine Seropositive rheumatoid arthritis (HCC) Expected: 06/12/2022 (Approximate), Expires: 08/12/[address] [facility] Work Phone: Comment on above: Expected: 06/12/2022 (Approximate), Expi res: 08/12/2022 Start: 06-12-2022 End: 06-21-2023 CBC W Auto Differential panel - Blood CBC + DIFF Lab Routine Seropositive rheumatoid arthritis (HCC) Expected: 06/12/2022 (Approximate), Expires: 08/12/[address] [facility] Work Phone: Comment on above: Expected: 06/12/2022 (Approximate), Expi res: 08/12/2022 Start: 06-12-2022 End: 08-12-2022 Comprehensive metabolic 2000 panel - Serum or Plasma COMP METABOLIC PANEL Lab Routine Seropositive rheumatoid arthritis (HCC) Expected: 06/12/2022 (Approximate), Expires: 08/12/[address] [facility] Work Phone: Comment on above: Expected: 06/12/2022 (Approximate), Expi res: 08/12/2022 Start: 06-12-2022 End: 08-12-2022 Erythrocyte sedimentation rate SED RATE WESTERGREN Lab Routine Seropositive rheumatoid arthritis (HCC) Expected: 06/12/2022 (Approximate), Expires: 08/12/[address] [facility] Work Phone: Comment on above: Expected: 06/12/2022 (Approximate), Expi res: 08/12/2022 Start: 04-14-2022 End: 06-14-2022 25-hydroxyvitamin D3 [Mass/volume] in Serum or Plasma [facility] Work Phone: Comment on above: Expected: 04/14/2022, Expires: 3 Start: 02-22-2022 DEPRESSION ASSESSMENT DEPRESSION ASSESSMENT [facility] Start: 01-16-2022 Screening for malignant neoplasm of cervix Pap Smear [facility] Start: 11-12-2021 End: 01-12-2022 25-hydroxyvitamin D3 [Mass/volume] in Serum or Plasma VITAMIN D 25 HYDROXY Lab Routine Vitamin D deficiency Expected: 11/12/2021, Expires: 01/12/[address] [facility] Work Phone: Comment on above: Expected: 11/12/2021, Expires: Start: 11-12-2021 End: 01-12-2022 C reactive protein [Mass/volume] in Serum or Plasma C-REACTIVE PROTEIN (CRP) Lab Routine Seropositive rheumatoid arthritis (HCC) Expected: 11/12/2021, Expires: 01/12/[address] [facility] Work Phone: Comment on above: Expected: 11/12/2021, Expires: 2 Start: 11-12-2021 End: 01-12-2022 CBC W Auto Differential panel - Blood CBC + DIFF Lab Routine Seropositive rheumatoid arthritis (HCC) Expected: 11/12/2021, Expires: 01/12/[address] [facility] Work Phone: Comment on above: Expected: 11/12/2021, Expires: 2 Start: 11-12-2021 End: 01-12-2022 Comprehensive metabolic 2000 panel - Serum or Plasma COMP METABOLIC PANEL Lab Routine Seropositive rheumatoid arthritis (HCC) Expected: 11/12/2021, Expires: 01/12/[address] [facility] Work Phone: Comment on above: Expected: 11/12/2021, Expires: 2 Start: 11-12-2021 End: 01-12-2022 Erythrocyte sedimentation rate SED RATE WESTERGREN Lab Routine Seropositive rheumatoid arthritis (HCC) Expected: 11/12/2021, Expires: 01/12/[address] [facility] Work Phone: Comment on above: Expected: 11/12/2021, Expires: 2 Start: 10-23-2021 Influenza vaccination [facility] Start: 09-06-2021 End: 11-06-2021 25-hydroxyvitamin D3 [Mass/volume] in Serum or Plasma VITAMIN D 25 HYDROXY Lab Routine Vitamin D deficiency Expected: 09/06/2021 (Approximate), Expires: 11/06/[address] [facility] Work Phone: Comment on above: Expected: 09/06/2021 (Approximate), Expi res: 11/06/2021 Start: 09-06-2021 End: 11-06-2021 Comprehensive metabolic 2000 panel - Serum or Plasma COMP METABOLIC PANEL Lab Routine Seropositive rheumatoid arthritis (HCC) Expected: 09/06/2021 (Approximate), Expires: 11/06/[address] [facility] Work Phone: Comment on above: Expected: 09/06/2021 (Approximate), Expi res: 11/06/2021 Start: 08-16-2021 End: 10-16-2021 CBC W Auto Differential panel - Blood CBC + DIFF Lab Routine Seropositive rheumatoid arthritis (HCC) Expected: 08/16/2021 (Approximate), Expires: 10/16/[address] [facility] Work Phone: Comment on above: Expected: 08/16/2021 (Approximate), Expi res: 10/16/2021 Start: 08-16-2021 End: 10-16-2021 Comprehensive metabolic 2000 panel - Serum or Plasma COMP METABOLIC PANEL Lab Routine Seropositive rheumatoid arthritis (HCC) Expected: 08/16/2021 (Approximate), Expires: 10/16/[address] [facility] Work Phone: Comment on above: Expected: 08/16/2021 (Approximate), Expi res: 10/16/2021 Start: 02-22-2021 DEPRESSION ASSESSMENT DEPRESSION ASSESSMENT [facility] Start: 10-23-2020 Influenza vaccination Flu vaccine (#1) [facility] Work Phone: Start: 12-04-2019 Creatinine measurement Creatinine monitoring [facility], [place] Start: 12-04-2019 Creatinine monitoring Creatinine monitoring [place], [place] Start: 12-04-2019 Potassium monitoring Potassium monitoring [place], [place] Start: 11-19-2019 Creatinine monitoring Creatinine monitoring [place], [place] Start: 11-19-2019 Potassium monitoring Potassium monitoring [place], [place] Start: 10-24-2019 Influenza vaccination [place], [place] Start: 08-29-2019 End: 08-29-2019 Visit 08/29/2019 Visit Obstetrics and Gynecology Tosha Viera APRN - CNM [address] [place] [address] [facility] Start: 07-26-2019 End: 07-26-2019 Visit 07/26/2019 Visit Obstetrics and Gynecology Tosha Viera APRN - CNM [address] [place] [address] [phone] [facility] Start: 07-13-2019 End: 07-13-2019 Ancillary Procedure [facility] Start: 05-18-2019 End: 05-18-2019 Ancillary Procedure [facility] Start: 05-12-2019 End: 05-11-2020 VL DUP UPPER EXTREMITY VENOUS LEFT VL DUP UPPER EXTREMITY VENOUS LEFT Imaging Routine Superficial thrombophlebitis of left upper extremity Expected: 05/12/2019, Expires: [facility] Expected: 05/12/2019, Expires: Start: 05-08-2019 End: 05-08-2019 Routine [facility] 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 Start: 02-13-2019 End: 02-13-2019 Routine 02/13/2019 Routine Obstetrics and Gynecology Tosha Viera APRN - CNM [address] [place] [address] [phone] [facility] SEAL EXTRUSION OPERATOR Start: 01-16-2019 End: 01-16-2019 Routine 01/16/2019 Routine Obstetrics and Gynecology Tosha Viera APRN - CNM [address] [place] [id number] [facility] SEAL EXTRUSION OPERATOR Start: 12-30-2018 Adult depression screening assessment DEPRESSION SCREENING [facility] Start: 12-19-2018 End: 12-19-2018 Initial 12/19/2018 [facility]TR[facility]ION OPER[facility] Start: 10-23-2018 Influenza vaccination Flu vaccine (#1) [place], [place] Start: 02-16-2014 HPV TESTING HPV TESTING [facility] Start: 02-16-2014 Screening for malignant neoplasm of cervix HPV Testing [facility] Start: 02-16-2005 Cervical cancer screen Cervical cancer screen [place], [place] Start: 02-16-2005 PAP TESTING PAP TESTING [facility] Start: 02-16-2005 Screening for malignant neoplasm of cervix Pap Testing [facility] Start: 02-16-2003 DTaP/Tdap/Td vaccine (1 - Tdap) DTaP/Tdap/Td vaccine (1 - Tdap) [place], [place] Start: 02-16-2003 Hepatitis B Vaccine (1 of 3 - 19+ 3-dose series) Hepatitis B Vaccine (1 of 3 - 19+ 3-dose series) [facility] Start: 02-16-2003 Pneumococcal vaccination Pneumococcal Vaccine (1 of 2 - PCV) [facility] Start: 02-16-2003 SHINGRIX VACCINE (1 of 2) SHINGRIX VACCINE (1 of 2) [facility] Start: 02-16-2003 Urine microalbumin profile DTAP,TDAP,TD (1 - Tdap) [facility] Start: 02-16-2002 Anxiety Screening Anxiety Screening [facility] Start: 02-16-2002 Depression Screening Depression Screening [facility] Start: 02-16-1997 Varicella Vaccine (1 of 2 - 13+ 2-dose series) Varicella Vaccine (1 of 2 - 13+ 2-dose series) [place], [place] Start: 1996 COVID-19 Vaccine (1) COVID-19 Vaccine (1) [facility] Work Phone: Start: 02-16-1995 DTaP/Tdap/Td vaccine (1 - Tdap) DTaP/Tdap/Td vaccine (1 - Tdap) [place] Start: 02-16-1995 Screening for malignant neoplasm of cervix Cervical Cancer Screening [facility] Start: 02-16-1990 PNEUMOCOCCAL (1 - PCV) PNEUMOCOCCAL (1 - PCV) [facility] Start: 02-16-1990 Pneumococcal 0-64 years Vaccine (1 of 1 - PPSV23) Pneumococcal 0-64 years Vaccine (1 of 1 - PPSV23) [place], [place] Start: 02-16-1990 Pneumococcal 0-64 years Vaccine (1 of 2 - PPSV23) Pneumococcal 0-64 years Vaccine (1 of 2 - PPSV23) [facility] Work Phone: Start: 02-16-1990 Pneumococcal vaccination [facility] Start: 02-16-1989 COVID-19 VACCINE (#1) COVID-19 VACCINE (#1) [facility] Start: 02-16-1985 Varicella Vaccine (1 of 2 - 2-dose childhood series) Varicella Vaccine (1 of 2 - 2-dose childhood series) [place], [place] Start: 1984 COVID-19 VACCINE (#1) COVID-19 VACCINE (#1) [facility] Start: 1984 HEPATITIS B (1 of 3 - 3-dose series) HEPATITIS B (1 of 3 - 3-dose series) [facility] Start: 1984 Hepatitis B Vaccine (1 of 3 - 3-dose series) Hepatitis B Vaccine (1 of 3 - 3-dose series) [facility] 25-hydroxyvitamin D3 [Mass/volume] in Serum or Plasma VITAMIN D 25 HYDROXY Lab Routine Vitamin D deficiency 08/06/2021 1:42 PM EDT [facility] Work Phone: 25-hydroxyvitamin D3 [Mass/volume] in Serum or Plasma VITAMIN D 25 HYDROXY Lab Routine Vitamin D deficiency 09/03/2021 1:27 PM EDT [facility] Work Phone: 25-hydroxyvitamin D3 [Mass/volume] in Serum or Plasma VITAMIN D 25 HYDROXY Lab Routine Vitamin D deficiency 11/13/2021 1:41 PM EDT [facility] Work Phone: 25-hydroxyvitamin D3 [Mass/volume] in Serum or Plasma VITAMIN D 25 HYDROXY Lab Routine Vitamin D deficiency 06/23/2022 12:40 PM EDT [facility] Work Phone: End: 12-19-2018 Bacteria identified Cx Nom (U) Urine Culture Microbiology Routine Encounter for supervision of normal in first trimester, unspecified 1 Occurrences starting 12/19/2018 until 12/19/2018 [facility] [place] Comment on above: 1 Occurrences starting 12/19/2018 until 12/19/2018 Bacteria identified Cx Nom (U) Urine Culture Microbiology Routine Encounter for supervision of normal in first trimester, unspecified 12/19/2018 6:27 PM EDT [facility] [place] C reactive protein [Mass/volume] in Serum or Plasma C-REACTIVE PROTEIN (CRP) Lab Routine Seropositive rheumatoid arthritis ([facility]) 11/13/2021 1:41 PM EDT [facility] Work Phone: C reactive protein [Mass/volume] in Serum or Plasma C-REACTIVE PROTEIN (CRP) Lab Routine Seropositive rheumatoid arthritis ([facility]) 06/23/2022 12:40 PM T [facility] Work Phone: End: 12-19-2018 C.trachomatis N.gonorrhoeae DNA, Urine C.trachomatis N.gonorrhoeae DNA, Urine Microbiology Routine Encounter for supervision of normal in first trimester, unspecified 1 Occurrences starting 12/19/2018 until 12/19/2018 [facility] [place] Comment on above: 1 Occurrences starting 12/19/2018 until 12/19/2018 C.trachomatis N.gonorrhoeae DNA, Urine C.trachomatis N.gonorrhoeae DNA, Urine Microbiology Routine Encounter for supervision of normal in first trimester, unspecified 12/19/2018 6:28 PM EDT [facility] CBC W Auto Different ial panel - Blood CBC + DIFF Lab Routine Seropositive rheumatoid arthritis ([facility]) 08/06/2021 1:42 PM T [facility] Work Phone: CBC W Auto Different ial panel - Blood CBC + DIFF Lab Routine Seropositive rheumatoid arthritis ([facility]) 11/13/2021 1:41 PM EDT [facility] Work Phone: Comprehensive metabo lic 2000 panel - Serum or Plasma COMP METABOLIC PANEL Lab Routine Seropositive rheumatoid arthritis ([facility]) 08/06/2021 1:42 PM [facility] Work Phone: Comprehensive metabo lic 2000 panel - Serum or Plasma COMP METABOLIC PANEL Lab Routine Seropositive rheumatoid arthritis ([facility]) 09/03/2021 1:27 PM EDT [facility] Work Phone: Comprehensive metabo lic 2000 panel - Serum or Plasma COMP METABOLIC PANEL Lab Routine Seropositive rheumatoid arthritis ([facility]) 11/13/2021 1:41 PM EDT [facility] Work Phone: Comprehensive metabo lic 2000 panel - Serum or Plasma COMP METABOLIC PANEL Lab Routine Seropositive rheumatoid arthritis (HCC) 06/23/2022 12:40 PM EDT [facility] Work Phone: End: 03-15-2020 COVID-19, PCR COVID-19, PCR Lab Routine One Time for 1 Occurrences starting 03/15/2020 until 03/15/2020 [place] Comment on above: One Time for 1 Occurrences starting 02/23 until 03/15/2020 COVID-19, PCR COVID-19, PCR La b STAT 03/15/2020 4:30 PM EST [place], [place] End: 07-06-2019 Culture, Strep B Screen, Vaginal/Rectal Culture, Strep B Screen, Vaginal/Rectal Microbiology Routine 38 weeks gestation of 1 Occurrences starting 07/06/2019 until 07/06/2019 [place], [place] Comment on above: 1 Occurrences starting 07/06/2019 until 07/06/2019 Culture, Strep B Scr een, Vaginal/Rectal Culture, Strep B Screen, Vaginal/Rectal Microbiology Routine 38 weeks gestation of 07/06/2019 4:09 PM EDT [place], [place] End: 12-19-2018 Cystic Fibrosis Gene Test Cystic Fibrosis Gene Test Lab Routine Encounter for supervision of normal in first trimester, unspecified Screening for cystic fibrosis 1 Occurrences starting 12/19/2018 until 12/19/2018 [place] Comment on above: 1 Occurrences starting 12/19/2018 until 12/19/2018 End: 01-16-2019 Cytopathology procedure, preparation of smear, genital source PAP SMEAR Lab Routine Screening for cervical cancer 1 Occurrences starting 01/16/2019 until 01/16/2019 [place] Comment on above: 1 Occurrences starting 01/16/2019 until 01/16/2019 Erythrocyte sediment ation rate SED RATE WESTERGREN Lab Routine Seropositive rheumatoid arthritis (HCC) 11/13/2021 1:41 PM EDT [facility] Work Phone: End: 04-04-2019 FLU A/B, MOLECULAR FLU A/B, MOLECULAR Microbiology Routine Once for 1 Occurrences starting 04/04/2019 until 04/04/2019 INDOM Phone: Comment on above: Once for 1 Occurrences starting 04/04/19 20 until 04/04/2019 FLU A/B, MOLECULAR FLU A/B, MOLE CULAR Microbiology Routine 04/04/2019 11:47 AM EST INDOM Phone: End: 12-19-2018 Hepatitis C Antibody Hepatitis C Antibody Lab Routine Encounter for supervision of normal in first trimester, unspecified 1 Occurrences starting 12/19/2018 until 12/19/2018 [facility]: [facility] Occurrences starting 12/19/2018 until 12/19/2018 Hepatitis C Antibody Hepatitis C Antibody Lab Routine Encounter for supervision of normal in first trimester, unspecified 12/19/2018 6:24 PM EDT [facility] End: 12-19-2018 HIV Screen HIV Screen Lab Routine Encounter for supervision of normal in first trimester, unspecified 1 Occurrences starting 12/19/2018 until 12/19/2018 [facility] above: 1 Occurrences starting 12/19/2018 until 12/19/2018 HIV Screen HIV Screen Lab R outine Encounter for supervision of normal in first trimester, unspecified 12/19/2018 6:24 PM EDT [facility] PRO[facility] I PROF ILE I Lab Routine Encounter for supervision of normal in first trimester, unspecified 12/19/2018 6:28 PM EDT [facility] End: 12-19-2018 Testing for Aneuploidy Testing for Aneuploidy Lab Routine Encounter for supervision of normal in first trimester, unspecified 1 Occurrences starting 12/19/2018 until 12/19/2018 [facility] on above: 1 Occurrences starting 12/19/2018 until 12/19/2018 Testing for Aneuploidy Testing for Aneuploidy Lab Routine Encounter for supervision of normal in first trimester, unspecified [facility]TEPARTUM RHOGAM ANTEPAR DAJA Blood Bank Routine Encounter for supervision of other normal in third trimester 29 weeks gestation of 05/01/2019 5:42 PM EDT [facility] [place] RHOGAM INJECTION ONLY RHOGAM INJ ECTION ONLY Blood Bank STAT 12/03/2018 5:56 PM EDT [facility] End: 07-12-2019 RHOGAM RHOGAM Blood Bank Routine One Time for 1 Occurrences starting 07/12/2019 until 07/12/2019 [facility] [place] Comment on above: One Time for 1 Occurrences starting 06/23 until 07/12/2019 End: 05-27-2024 US Extremity - left US EXTREMITY MASS/FLUID COLLECTION LEFT Radiology Routine Seropositive rheumatoid arthritis (HCC) Localized superficial swelling, mass, or lump 1 Occurrences starting 04/28/2023 until 05/27/[address] [facility] Work Phone: Comment on above: 1 Occurrences starting 04/28/2023 until 05/27/2024 US GALLBLADDER RUQ US GALLBLADDE R RUQ Imaging Routine Right upper quadrant abdominal pain 2019 11:13 AM [facility] Work Phone: End: 05-27-2024 US Upper extremity - left US ELBOW LEFT Radiology Routine Localized superficial swelling, mass, or lump Seropositive rheumatoid arthritis (HCC) 1 Occurrences starting 04/28/2023 until 05/27/[address] [facility] Work Phone: Comment on above: 1 Occurrences starting 04/28/2023 until 05/27/2024 XR Foot - bilateral AP and Lateral and oblique XR FOOT GENERAL 3V AP/LAT/OBL BILATERAL Radiology Routine Seropositive rheumatoid arthritis (HCC) 04/14/2022 2:47 PM [facility] Work Phone: End: 03-26-2023 XR FOOT GENERAL 3V AP/LAT/OBL BILATERAL XR FOOT GENERAL 3V AP/LAT/OBL BILATERAL Radiology Routine Seropositive rheumatoid arthritis (HCC) 1 Occurrences starting 02/24/2022 until 03/26/[address] [facility] Work Phone: Comment on above: 1 Occurrences starting 02/24/2022 until 03/26/2023 End: 03-30-2023 XR FOOT GENERAL 3V AP/LAT/OBL BILATERAL XR FOOT GENERAL 3V AP/LAT/OBL BILATERAL Radiology Routine Seropositive rheumatoid arthritis (HCC) 1 Occurrences starting 02/28/2022 until 03/30/[address] [facility] Work Phone: Comment on above: 1 Occurrences starting 02/28/2022 until 03/30/2023 End: 11-21-2023 XR FOOT GENERAL 3V AP/LAT/OBL BILATERAL XR FOOT GENERAL 3V AP/LAT/OBL BILATERAL Radiology Routine Seropositive rheumatoid arthritis (HCC) 1 Occurrences starting 10/22/2022 until 11/21/[address] [facility] Work Phone: Comment on above: 1 Occurrences starting 10/22/2022 until 11/21/2023 [facility] Immunizations Immunization Date Immunization Notes Care Provider Devi biggs 06-02-2021 diphtheria, tetanus toxoids and pertussis vaccine Fariba Hill APRN.CNP Work Phone: [facility] 07-12-2019 diphtheria, tetanus toxoids and acellular pertussis vaccine, unspecified formulation [place], [place] 07-12-2019 measles, mumps and rubella virus vaccine [place], [place] 12-03-2018 RHO(D) immune globul in - [place], [place] Payers Date Payer Category Payer Medicaid [id number] 2020 Medicaid [employer] [id number] 2020-Present [phone] [address] [place] [address] Medicaid [id number] 2019 Medicaid [id number] 2018 Unknown [employer] xxxxxxxxxxx 2018-Present [phone] [address] [place] [address] xxxxxxxxxxx [id number] 2018 Unknown [id number]. [id number] 1984 Unknown [id number] [id number] 1984 Unknown [id number] [id number] 1984 Unknown [id number] [id number] 1984 Unknown [id number] [id number] 1984 Unknown [id number] 2.16.840.1.910837.3.579.2.593 1984 Unknown [id number] 2.16.840.1.360435.3.579.2.593 1984 Unknown [id number] 2.16.840.1.995277.3.579.2.593 1984 Unknown [id number] 2.16.840.1.182755.3.579.2.593 1984 Unknown [id number] 2.16.840.1.526030.3.579.2.593 1984 Unknown [id number] 2.16.840.1.693670.3.579.2.1259 1984 Unknown [id number] 2.16.840.1.844508.3.579.2.1259 1984 Unknown [id number] 2.16.840.1.729772.3.579.2.1259 1984 Unknown [id number] [id number] 1984 Unknown [id number] [id number] 1984 Unknown [id number] [id number] 1959 Unknown [id number] Social History Date Type Detail Facility Start: 12-03-2018 End: 01-25-2023 Tobacco smoking status NHIS Current every day smoker [place] Start: 04-22-2012 History of tobacco use Cigarette Smo ker [place] Start: 12-03-2018 End: 09-17-2022 Alcohol intake Not Currently [facility] Start: 10-24-2018 [place], [place] Start: 1985 Sex Assigned At Not on file [place] Start: 12-19-2018 End: 09-17-2022 Cigarettes smoked current (pack per day) - Reported [facility] Start: 12-19-2018 End: 01-28-2019 [facility] Start: 06-23-2021 End: 07-03-2021 Exposure to SARS-CoV-2 (event) Unable to assess [place] Start: 07-11-2019 Tobacco Comment patient declin es counseling [place] Start: 07-12-2019 End: 03-31-2024 Tobacco use and exposure Never used [place] Start: 11-02-2021 End: 11-12-2021 Exposure to SARS-CoV-2 (event) Not sure [facility] Start: 04-22-2012 End: 03-31-2024 Tobacco smoking status NHIS Light tobacco smoker [facility] Start: 03-14-2021 End: 03-31-2024 Alcohol intake Current non-drinker of alcohol (finding) [facility] Start: 04-22-2017 End: 04-14-2022 Tobacco Comment social smoker not everyday [facility] Adult Depression Screening Assessment 1 [facility] Start: 10-21-2023 End: 04-26-2024 Alcoholic beverage intake Lifetime non-drinker (finding) [facility] Clinical Notes 09-15-2020 to 05-11-2024 Telephone Encounter - Shaheen Byrd MA - 05/11/2024 7:07 AM EDTTelephone Encounter - Shaheen Byrd MA - 05/11/2024 7:07 AM EDTTelephone Encounter - Craig Wade MD - 05/10/2024 4:27 PM EDT Note Date & Type Note Facility 05-11-2024 Telephone encounter Note fax provided is [facility] fax number, call to [facility] for lab fax([phone]) and orders faxed as requested. [facility] 05-11-2024 Miscellaneous Notes fax provided is [facility] fax number, call to [facility] for lab fax([phone]) and orders faxed as requested. Labs were ordered in 03/2024. Thank you Any is calling Craig Wade MD today to request her lab orders be faxed over to [facility] at Patient has been identified by name and birthdate. Duration of symptoms: N/A Person calling: self Call patient at: at home [phone] (home) [phone] (cell) Was an appointment scheduled: No Closing statement: Results or non-symptom based questions: Thank you for calling [facility], your call will be returned within the next business day. Prema Ortiz documented in this encounter [facility] 05-10-2024 Telephone encounter Note Labs were ordered in 03/2024. Thank you [facility] 05-10-2024 Telephone encounter Note Any is calling Craig Wade MD today to request her lab orders be faxed over to [facility] at Patient has been identified by name and birthdate. Duration of symptoms: N/A Person calling: self Call patient at: at home [phone] (home) [phone] (cell) Was an appointment scheduled: No Closing statement: Results or non-symptom based questions: Thank you for calling [facility], your call will be returned within the next business day. Prema Millan Pss [facility] 04-26-2024 History of Present illness Narrative Associated Problem(s): Nausea Refill zofran Associated Problem(s): Wheezing No hx of asthma, is using albuterol more than 2 times daily Add ICS/LABA Rinse mouth after use Fu in 3 months Pt is having a lot of anxiety causing nausea- pt is asking for prn zofran Images from the original note were not included. Any Ludwig is a 39 y.o. female presents with chief complaint of No chief complaint on file. HPI: ADHD: takes Vyvanse daily, has been tolerating the medication well. Appetite Sleep: Side effects medications: Increase in anxiety symptoms, she continues to go through process of getting custody of her kids W her anxiety she does get nausea, is asking for zofran to take PRN Anxiety Presents for follow-up visit. Symptoms include decreased concentration, excessive worry, irritability, muscle tension, nausea and nervous/anxious behavior. Patient reports no chest pain, dizziness, palpitations, shortness of breath or suicidal ideas. Symptoms occur most days. The severity of symptoms is mild. There is no history of asthma. Compliance with medications is 76-100%. Wheezing This is a new problem. The current episode started more than 1 month ago. The problem occurs daily. The problem has been waxing and waning. Associated symptoms include coughing. Pertinent negatives include no abdominal pain, chest pain, chills, diarrhea, ear pain, fever, headaches, rash, shortness of breath, sore throat or vomiting. Nothing aggravates the symptoms. She has tried beta agonist inhalers for the symptoms. The treatment provided moderate relief. There is no history of asthma. SUBJECTIVE: MEDICATIONS: Current Outpatient Medications Medication Instructions albuterol HFA 90 mcg/act inhaler 2 puffs, Inhalation, Every 6 hours PRN budesonide-formoterol (Symbicort) 80-4.5 MCG/ACT inhaler 2 puffs, Inhalation, 2 times daily RT, Rinse mouth with water after use to reduce aftertaste and incidence of candidiasis. Do not swallow. Buprenorphine HCl-Naloxone HCl (Suboxone) 8-2 MG SL film 2 Film, Daily gabapentin (NEURONTIN) 600 mg, 3 times daily lisdexamfetamine (VYVANSE) 50 mg, Oral, Every morning [START ON 05/26/2024] lisdexamfetamine (VYVANSE) 50 mg, Oral, Every morning [START ON 06/25/2024] lisdexamfetamine (VYVANSE) 50 mg, Oral, Every morning tocilizumab (ACTEMRA) 162 mg, Every 14 days venlafaxine XR (EFFEXOR XR) 150 mg, Oral, Daily ALLERGIES: Allergies Allergen Reactions Infliximab Anaphylaxis Adverse reaction, chest tightness, shortness of breath and trouble breathing REVIEW OF SYMPTOMS: Review of Systems Constitutional: Positive for irritability. Negative for appetite change, chills and fever. HENT: Negative for congestion, ear pain and sore throat. Eyes: Negative for pain, discharge, redness and visual disturbance. Respiratory: Positive for cough and wheezing. Negative for shortness of breath. Cardiovascular: Negative for chest pain, palpitations and leg swelling. Gastrointestinal: Positive for nausea. Negative for abdominal pain, blood in stool, constipation, diarrhea and vomiting. Genitourinary: Negative for difficulty urinating, dysuria and frequency. Musculoskeletal: Negative for arthralgias, back pain, joint swelling and myalgias. Skin: Negative for rash and wound. Neurological: Negative for dizziness, tremors, seizures, syncope and headaches. Psychiatric/Behavioral: Positive for decreased concentration. Negative for behavioral problems, self-injury and suicidal ideas. The patient is nervous/anxious. Hematological: Does not bruise/bleed easily. Endocrine: Negative for polydipsia, polyphagia and polyuria. Allergic/Immunologic: Negative for environmental allergies and food allergies. 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 No pertinent surgical history. family history includes Rheum arthritis in her mother. OBJECTIVE: Visit Vitals BP 122/78 (BP Location: Left arm, Patient Position: Sitting, BP Cuff Size: Adult long) Pulse 93 Temp 98.1 F (Temporal) Resp 18 Ht 5' 3 Wt 167 lb 3.2 oz SpO2 97% BMI 29.62 kg/m Smoking Status Every Day BSA 1.84 m Physical Exam Vitals and nursing note reviewed. Constitutional: General: She is not in acute distress. Appearance: Normal appearance. HENT: Head: Normocephalic and atraumatic. Right Ear: Tympanic membrane, ear canal and external ear normal. Left Ear: Tympanic membrane, ear canal and external ear normal. Nose: Rhinorrhea present. Mouth/Throat: Mouth: Mucous membranes are moist. Pharynx: No oropharyngeal exudate or posterior oropharyngeal erythema. Eyes: Extraocular Movements: Extraocular movements intact. Conjunctiva/sclera: Conjunctivae normal. Cardiovascular: Rate and Rhythm: Normal rate and regular rhythm. Pulses: Normal pulses. Heart sounds: Normal heart sounds. Pulmonary: Effort: Pulmonary effort is normal. Breath sounds: Normal breath sounds. No wheezing. Abdominal: General: Bowel sounds are normal. There is no distension. Palpations: Abdomen is soft. There is no mass. Tenderness: There is no abdominal tenderness. Musculoskeletal: General: Normal range of motion. Cervical back: Normal range of motion and neck supple. Right lower leg: No edema. Left lower leg: No edema. Lymphadenopathy: Cervical: No cervical adenopathy. Skin: General: Skin is warm and dry. Capillary Refill: Capillary refill takes 2 to 3 seconds. Findings: No rash. Neurological: General: No focal deficit present. Mental Status: She is alert and oriented to person, place, and time. Psychiatric: Mood and Affect: Mood normal. Behavior: Behavior normal. Thought Content: Thought content normal. Judgment: Judgment normal. ASSESSMENT AND PLAN: No follow-ups on file. Problem List Items Addressed This Visit Anxiety Current dose of effexor xr is 150mg MADIHA 7= PHQ 9= ADHD (attention deficit hyperactivity disorder), combined type (CMS/HCC) - Primary Has been taking Vyvanse at 50mg daily OARRS reviewed Opioid abuse, uncomplicated (CMS/HCC) Is taking suboxone, provider is Gila Continue treatment with them Neutropenia, unspecified (CMS/HCC) Was given lab order at last visit to recheck, no results received as of today's visit Cigarette nicotine dependence without complication The patient has been advised of the risks of continued smoking: stroke, [place], all forms of cancer, lung disease, and . Options for quitting smoking include: cold turkey, hypnosis, acupuncture, nicotine replacement meds (gum, lozenges, and patches), Buproprion, and Varenicline. At this time pt is encouraged to evaluate their goals for wanting to quit smoking, and reach out to provider when ready to start this process Associated Problem(s): Anxiety Current dose of effexor xr is 150mg MADIHA 7= 3 PHQ 9= 7 No change in med doses Associated Problem(s): Cigarette nicotine dependence without complication The patient has been advised of the risks of continued smoking: stroke, [place], all forms of cancer, lung disease, and . Options for quitting smoking include: cold turkey, hypnosis, acupuncture, nicotine replacement meds (gum, lozenges, and patches), Buproprion, and Varenicline. At this time pt is encouraged to evaluate their goals for wanting to quit smoking, and reach out to provider when ready to start this process Associated Problem(s): Opioid abuse, uncomplicated (CMS/HCC) Is taking suboxone, provider is Alvin Continue treatment with them Associated Problem(s): Neutropenia, unspecified (CMS/HCC) Was given lab order at last visit to recheck, no results received as of today's visit Associated Problem(s): ADHD (attention deficit hyperactivity disorder), combined type (CMS/HCC) Has been taking Vyvanse at 50mg daily OARRS reviewed documented in this encounter [facility] 04-26-2024 Instructions Niya Santiago NP - 04/26/2024 1:00 PM EST Trial new inhaler: rinse mouth after use documented in this encounter [facility] 03-31-2024 History of Present illness Narrative [facility] received prescription(s) for Actemra from Dr. Wade's office. Benefits investigation was conducted, indicating that a prior authorization is required by patient's insurance plan with [facility]. Encounter will be updated once prior authorization has been submitted by [facility]. Nimco Ortez CPhT [facility] [phone] documented in this encounter [facility] 03-31-2024 Note HNO ID: [id number] Author: ?, ?, ? Service: ? Author Type: ? Type: Progress Notes Filed: 05/08/2024 14:25 Note Text: Actemra PA was initiated and pending review. Plan Name: [facility] Diaz[facility] [id number] Nimco Ortez CPhT [facility] [phone] [facility] 03-31-2024 Note HNO ID: [id number] Author: ?, ?, ? Service: ? Author Type: ? Type: Progress Notes Filed: 03/31/2024 15:15 Note Text: [facility] received prescription(s) for Actemra from Dr. Wade's office. Benefits investigation was conducted, indicating that a prior authorization is required by patient's insurance plan with [facility]. Encounter will be updated once prior authorization has been submitted by [facility]. Nimco Ortez CPhT [facility] [phone] [facility] 03-31-2024 Note HNO ID: [id number] Author: MANSI LEONE RPh Service: ? Author Type: Pharmacist Type: Progress Notes Filed: 05/10/2024 07:39 Note Text: Actemra PA was denied with details listed below. Plan Name: [facility] Phone/ / [phone] Case ID - Denial reason: Negative TB test required within the last 12 months. *Also preferred product is Tyenne* Treatment history noted: Xeljanz 2019 for 30 days Leflunomide 20 mg daily 12/2017, held during in 2021 then resumed 10 mg daily 10/2021 having another , stopped 11/2022 due to liver enzyme elevation Infliximab infusion 07/2021-02/2022- adverse reaction, chest pressure Hydroxychloroquine deferred due to low G6PD Methotrexate prior to seeing edger saw operator in 2017 did not help Actemra infusion 11/2022- 05/2023 Actemra subcutaneous 03/2024 There is an option for written appeal or for [id number] review. If you would like to appeal, please provide a signed letter to [facility] and we can forward off to Aimee. If you would prefer to complete a [id number], one can be scheduled by calling [phone]. Mansi Leone, JoeD Clinical Pharmacist, [employer] [facility] ; Pool: P [facility] Pool #: [id number] [facility] 03-31-2024 History of Present illness Narrative Images from the original note were not included. Rheumatology Outpatient Clinic Date of Service: 03/31/2024 Patient: Any Ludwig Medical Record: [id number] Primary Care Physician: Tino Blake MD, MD Referring Provider: No referring provider defined for this encounter. Last Rheumatology visit: 05/26/2023 (with Fariba Hill) Chief complaint: Consult (Dx ra.) and Pain (Ongoing bi-lateral hand pain.) History of Present Illness Any Ludwig is a 39 year old White female with medical history of ADD, seropositive rheumatoid arthritis, history of tobacco use, presents on 03/31/2024 for an in-person visit for evaluation of Consult (Dx ra.) and Pain (Ongoing bi-lateral hand pain.). She is currently taking leflunomide, tocilizumab. Any is both RF - 118 (04/22/2017) and CCP - 229 (04/22/2017) positive. Her most recent MAURICE was negative (04/22/2017). History of present illness Following in rheumatology clinic with Fariba Hill, previously with Dr. Moise . Initially seen in rheumatology clinic in 04/2017 for multiple joint pain. Reportedly diagnosed rheumatoid arthritis in 2012 by primary care physician in [place] however had not seen edger saw operator until 2018. She had multiple joint swelling with elbow nodule, rheumatoid factor and CCP came back positive, diagnosed seropositive nodular rheumatoid arthritis. G6PD was low so hydroxychloroquine was deferred. Started on leflunomide 20 mg daily 12/2017. Leflunomide was stopped 11/2022 due to liver enzyme elevation. Xeljanz was added around 02/2018 however she had difficulty obtaining due to insurance issues, she did take for about 30 days but could not continue. She did not like self injections, Actemra infusion was started 11/2022 that she continued until 05/2023 then could not continue due to transportation issues. She lost follow-up after 05/2023. Seen by me as new patient 03/2024-continues to have pain over wrists, shoulder Went to ER for flare 3 weeks ago was given steroids that helped She reports morning stiffness for about 45 minutes to 1 hour. Pain is worst in the morning and slightly better with activities. She thought she was scheduled for Actemra infusion today however her prior authorization had . Medications Xeljanz 2019 for 30 days Leflunomide 20 mg daily 12/2017, held during in 2021 then resumed 10 mg daily 10/2021 having another , stopped 11/2022 due to liver enzyme elevation Infliximab infusion 07/2021-02/2022- adverse reaction, chest pressure Hydroxychloroquine deferred due to low G6PD Methotrexate prior to seeing edger saw operator in 2018 did not help Actemra infusion 11/2022- 05/2023 Actemra subcutaneous 03/2024 Sed rate/CRP normal CBC unremarkable except hemoglobin 11.2 Creatinine 0.5 AST/ALT normal 04/2017 Rheumatoid factor 118 CCP 229 Radiograph right wrist 12/2017-3 mm subchondral lucency likely cyst in distal ulna Radiograph right knee 09/2017-large joint effusion Radiograph bilateral hands 04/2017-unremarkable Radiograph bilateral feet 04/2017-unremarkable Patient-Entered Data PAIN EVALUATION 03/31/2024 1349 Pain Level: 4 Pain Location: -- bi-lateral hands Description: Aching Duration Units: Years Frequency: Continuous PROMIS Assessments 04/26/2022 01/19/2023 06/10/2023 PROMIS Assessments Physical Health Percentile 22 Mental Health Percentile 19 Pain Score 3 Fatigue Percentile 14 Physical Function Percentile 14 14 RAPID 3 Diaz Activities of Daily Living No Data Dress self? - Get in and out of bed? - Walk outdoors? - Wash and dry body? - Get in and out of car? - RAPID 3 Disease Activity Weighed Score Levels: 0 - 1: Near Remission 1.3 - 2.0: Low Severity 2.3 - 4.0: Moderate Severity 4.3 - 10.0: High Severity 12/30/2017 03/24/2018 07/19/2018 RAPID-3 Weighed Score RAPID 3 Weighed Score 6.1 2.3 3.9 Review of Systems ROS RHEUMATOLOGY Fever: Denies Skin rash: Denies Dyspnea: Denies Cough : Denies Past Medical History No past medical history on file. Past Surgical History No past surgical history on file. Allergy ALLERGIES Allergen Reactions Avsola [Infliximab-* Anaphylaxis Adverse reaction, chest tightness, shortness of breath and trouble breathing Family History No family history on file. Social History Social History Tobacco Use Smoking status: Light Smoker Types: Cigarettes Start date: 04/22/2012 Smokeless tobacco: Never Tobacco comments: social smoker not everyday Substance Use Topics Alcohol use: No Drug use: No Current Medications Current Outpatient Medications Medication Sig VYVANSE 50 mg capsule TAKE 1 CAPSULE BY MOUTH IN THE MORNING. DO NOT START BEFORE MARCH 25, 2024. gabapentin (NEURONTIN) 600 mg tablet TAKE 1 TABLET BY MOUTH 3 TIMES A DAY FOR ANXIETY buprenorphine HCl/naloxone HCl (BUPRENORPHINE-NALOXONE BUCCAL) Buprenorphine-Naloxone Active 1 FILM SL Q24H April 13, 2023 12:00am clobetasol (TEMOVATE) 0.05 % cream APPLY THIN LAYER TO ELBOW REGION TWICE DAILY FOR 14 DAYS nabumetone (RELAFEN) 750 mg tablet Take by mouth. venlafaxine ER (EFFEXOR XR) 150 mg 24 hr capsule TAKE 1 CAPSULE BY MOUTH DAILY. DO NOT CRUSH OR CHEW albuterol HFA (PROVENTIL HFA, VENTOLIN HFA) 90 mcg/actuation inhaler Inhale 2 Puffs as instructed every 4 hours as needed for wheezing/shortness of breath. cetirizine (ZYRTEC) 10 mg tablet Take 1 tablet by mouth once daily. ondansetron orally disintegrating (ZOFRAN ODT) 4 mg disintegrating tablet DISSOLVE 1 TABLET BY MOUTH EVERY 8 HOURS NEEDED FOR NAUSEA triamcinolone acetonide (KENALOG) 0.1 % ointment APPLY TWICE A DAY TO THE AFFECTED AREA OF THE ELBOW Cholecalciferol, Vitamin D3, (VITAMIN D) 25 mcg (1,000 unit) cap Take 2 capsules by mouth once daily. tocilizumab (ACTEMRA) 162 mg/0.9 mL subcutaneous injection Inject 162mg (1 syringe) subcutaneously every 2 weeks. No current facility-administered medications for this visit. Labs Latest Ref Rng & Units 10/22/2022 11/27/2022 03/01/2023 05/26/2023 CBC WBC 3.70 - 11.00 k/uL 6.25 7.96 5.05 5.87 Hemoglobin 11.5 - 15.5 g/dL 11.9 11.7 12.0 11.2 Hematocrit 36.0 - 46.0 % 36.9 36.5 36.4 34.2 Platelet Count 150 - 400 k/uL 235 328 238 172 Abs Neut (ANC) 1.45 - 7.50 k/uL 2.51 3.07 2.12 1.20 Abs Lymph 1.00 - 4.00 k/uL 3.08 3.92 2.42 3.83 Latest Ref Rng & Units 10/22/2022 11/27/2022 03/01/2023 05/26/2023 CMP Sodium 136 - 144 mmol/L 137 133 Potassium 3.7 - 5.1 mmol/L 3.9 4.4 Chloride 97 - 105 mmol/L 105 98 CO2 22 - 30 mmol/L 20 24 Glucose 74 - 99 mg/dL 101 72 BUN 7 - 21 mg/dL 9 8 Creatinine 0.58 - 0.96 mg/dL 0.52 0.48 0.47 0.52 Calcium 8.5 - 10.2 mg/dL 9.0 9.1 AST 13 - 35 U/L 22 54 18 21 ALT 7 - 38 U/L 23 66 13 17 Alkaline Phosphatase 34 - 123 U/L 62 77 Latest Ref Rng & Units 10/22/2022 Uric Acid Uric Acid 2.5 - 6.6 mg/dL 5.2 Latest Ref Rng & Units 06/23/2022 10/22/2022 11/27/2022 05/26/2023 ESR, WSR WSR 0 - 20 mm/hr 15 20 20 5 Latest Ref Rng & Units 06/23/2022 10/22/2022 11/27/2022 05/26/2023 CRP CRP <0.9 mg/dL <0.3 <0.3 0.4 <0.3 Latest Ref Rng & Units 04/22/2017 BRYAN BRYAN <52 U/L 32 Latest Ref Rng & Units 04/22/2017 RF and CCP Rheumatoid Factor <16 IU/mL 118 CCP Antibody, IgG <20 Units 229 Latest Ref Rng & Units 04/22/2017 12/30/2017 03/29/2020 06/12/2021 Hepatitis Screen Hep B Core Ab, Total Negative Negative Negative Negative Negative Hep B Surf Ab Qual Negative Negative Negative Negative Negative Hep C Antibody IA Negative Negative Negative Negative Negative Hep B Surface Ag Negative Negative HBsAg Negative Negative Negative Negative 04/22/2017 03/24/2018 03/29/2020 06/12/2021 TB Screen TB Interpretation No evidence of current or previous infection with Mycobacterium tuberculosis. No evidence of current or previous infection with Mycobacterium tuberculosis. No evidence of current or previous infection with Mycobacterium tuberculosis. Infection with M. tuberculosis complex is unlikely. If latent tuberculosis infection is highly suspected, a negative result does not rule out the infection. Specimens from immunocompromised patients and those <5 years of age may show false negative results. In case of a contact investigation, please repeat 8-12 weeks after a known exposure. TB Result Negative Negative Negative Negative Latest Ref Rng & Units 04/22/2017 Antibodies MAURICE Negative Negative MAURICE Titer Negative Negative MAURICE Pattern Not applicable for negative result. Latest Ref Rng & Units 04/22/2017 ANCA Myeloperoxidase Antibody (MPO) <1.0 AI Test not performed on samples negative by immunofluorescence. Proteinase-3 Antibody <1.0 AI Test not performed on samples negative by immunofluorescence. P-ANCA Fluorescence Negative Negative C-ANCA Fluorescence Negative Negative Myeloperoxidase Antibody (MPO) <1.0 AI Test not performed on samples negative by immunofluorescence. Proteinase-3 Antibody <1.0 AI Test not performed on samples negative by immunofluorescence. Latest Ref Rng & Units 04/22/2017 Urinalysis Protein, Urine Negative mg/dL Negative RBC, Urine 0 - 3 /HPF 0-3 Latest Ref Rng & Units 04/22/2017 TPMT amd G6PD G-6-PD Quantitative 8.6 - 18.0 U/g Hb 7.5 Latest Ref Rng & Units 04/14/2022 06/23/2022 10/22/2022 05/26/2023 Vitamin D Vitamin D 25 Hydroxy 31.0 - 80.0 ng/mL 19.0 41.8 46.8 29.2 Imaging Last XR Hand/Finger - Impression Only XR HAND GENERAL 3V PA/LAT/OBL BILAT Collected: 04/22/2017 1:05 PM (Final result) Impression: IMPRESSION: NORMAL APPEARANCE OF BOTH HANDS Cloth Checker: COURTNEY Transcribe Date/Time: Apr 22 2017 1:15P Dictated by : VEDA LEDESMA MD ... Last MRI Hand - Impression Only No resulted procedures found. Last XR Chest - Impression Only XR CHEST 2V FRONTAL/LAT Exam End: 09/15/2020 5:40 PM (Final result) Impression: Possible interstitial infiltrates. Probable small airways disease. Last XR Cervical Spine - Impression Only No resulted procedures found. Health Maintenance Current Immunizations Never Reviewed Name Date diphtheria tetanus pertussis (DTP) vaccine 06/02/2021 Physical Exam VITAL SIGNS: BP 115/70 Pulse 77 Ht 5' 3 (1.60m) Wt 162 lb 7.7 oz (73.7kg) LMP 01/13/2023 BMI 28.79 kg/(m^2). GENERAL APPEARANCE: Well groomed. In no distress. SKIN: No rash, thickening, nodules, calcifications, discoloration. HENT: Normal external examination of the ears and nose, lips, NECK: No mass or asymmetry, RESPIRATORY: Normal respiratory effort. Clear to auscultation, no wheeze. CARDIOVASCULAR: regular, normal rate, normal heart sounds, no murmur or rub ABDOMEN: BS normal. No bruits, NEUROLOGIC: Alert and oriented x 3. Motor exam: Normal muscle strength grossly. Normal bulk and tone. MUSCULOSKELETAL EXAMINATION: Soft tissue tender points: None Upper extremities: Shoulders: Full ROM in all directions, tenderness to palpation. No swelling or effusion. Elbows: Full ROM in flexion and extension. No swelling or effusion. No tenderness to palpation to the joint line, olecranon, medial or lateral epicondyles. Left elbow nodulr Wrists:limited extension with synovitis and tenderness to palpation bilateral elbows Hands: Full ROM in flexion and extension. No swelling or synovitis along the MCPs, PIPs, and DIPs. No tenderness along the MCPs, PIPs, and DIPs. Lower extremities: Knees: Full ROM in flexion and extension. Right knee effusion, tenderness to palpation. Ankles: Full ROM in all sanchez. No swelling or effusion. No tenderness to palpation Feet: right 2nd MTP synovitis Diagnoses: (M05.9) Seropositive rheumatoid arthritis (HCC) (primary encounter diagnosis) (Z51.81) Medication monitoring encounter Impression and Plan Seropositive, nodular rheumatoid arthritis Manifestations-multiple joint pain, swelling, left elbow nodule, positive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 stroke, MN, all forms of cancer, lung disease, and . Options for quitting smoking include: cold turkey, hypnosis, acupuncture, nicotine replacement meds (gum, lozenges, and patches), Buproprion, and Varenicline. At this time pt is encouraged to evaluate their goals for wanting to quit smoking, and reach out to provider when ready to start this process documented in this encounter [facility] 01-25-2024 Instructions Niya Santiago NP - 01/25/2024 2:40 PM EST Get labs completed Schedule PAP smear Will discuss Rheumatology referral when you come back in 3 months documented in this encounter [facility] 10-21-2023 History of Present illness Narrative Associated Problem(s): Subacute maxillary sinusitis Atb, fluid, rest follow up if not better Will give albuterol refill as well for wheeze Non toxic looking Associated Problem(s): Anxiety Continue with effexor Associated Problem(s): Rheumatoid arthritis (CMS/HCC) Continue with Rheumatology Associated Problem(s): Neutropenia, unspecified (CMS/HCC) Recheck CBC Associated Problem(s): Adult ADHD (attention deficit hyperactivity disorder) (CMS/HCC) No changes in meds or doses OARRS reviewed Fu in 3 months Possible sinus infection Pt started having symptoms about a week or so ago, ears plugged, blowing nose, green mucus, and headaches in the right eye bow area. Pt also fell going up the stairs last night hurting her right shoulder-tenderness and troubles sleeping last night. Images from the original note were not included. Any Ludwig is a 38 y.o. female presents with chief complaint of No chief complaint on file. HPI: ADHD This is a chronic problem. The current episode started more than 1 year ago. The problem occurs daily. The problem has been unchanged. Associated symptoms include arthralgias, chest pain, congestion, coughing, headaches and a sore throat. Pertinent negatives include no abdominal pain, anorexia, chills, fever, joint swelling, myalgias, nausea, rash or vomiting. Nothing aggravates the symptoms. Treatments tried: ADHD meds. The treatment provided significant relief. Anxiety Presents for follow-up visit. Symptoms include chest pain, decreased concentration and nervous/anxious behavior. Patient reports no depressed mood, dizziness, excessive worry, irritability, muscle tension, nausea, palpitations, shortness of breath or suicidal ideas. Symptoms occur occasionally. The severity of symptoms is mild. Compliance with medications is 76-100%. Sinusitis This is a new problem. The current episode started 1 to 4 weeks ago. The problem is unchanged. There has been no fever. Associated symptoms include congestion, coughing, ear pain, headaches, sinus pressure and a sore throat. Pertinent negatives include no chills or shortness of breath. Past treatments include nothing. SUBJECTIVE: MEDICATIONS: Current Outpatient Medications Medication Instructions albuterol HFA (Ventolin HFA) 90 mcg/act inhaler 2 puffs, Inhalation, Every 6 hours PRN amoxicillin-clavulanate (Augmentin) 875-125 MG tablet 875 mg, Oral, 2 times daily, Take with food Buprenorphine HCl-Naloxone HCl (Suboxone) 8-2 MG SL film 2 Film, Sublingual, Daily gabapentin (NEURONTIN) 600 mg, Oral, 3 times daily leflunomide (ARAVA) 10 mg, Oral, Daily lisdexamfetamine (VYVANSE) 50 mg, Oral, Every morning [START ON 11/20/2023] lisdexamfetamine (VYVANSE) 50 mg, Oral, Every morning [START ON 12/20/2023] lisdexamfetamine (VYVANSE) 50 mg, Oral, Every morning ondansetron ODT (ZOFRAN-ODT) 4 mg, Oral, Every 6 hours PRN venlafaxine XR (EFFEXOR XR) 150 mg, Oral, Daily ALLERGIES: Allergies Allergen Reactions Infliximab Anaphylaxis Adverse reaction, chest tightness, shortness of breath and trouble breathing REVIEW OF SYMPTOMS: Review of Systems Constitutional: Negative for appetite change, chills, fever and irritability. HENT: Positive for congestion, ear pain, sinus pressure and sore throat. Eyes: Negative for pain, discharge, redness and visual disturbance. Respiratory: Positive for cough. Negative for shortness of breath and wheezing. Cardiovascular: Positive for chest pain. Negative for palpitations and leg swelling. Gastrointestinal: Negative for abdominal pain, anorexia, blood in stool, constipation, diarrhea, nausea and vomiting. Genitourinary: Negative for difficulty urinating, dysuria and frequency. Musculoskeletal: Positive for arthralgias. Negative for back pain, joint swelling and myalgias. Skin: Negative for rash and wound. Neurological: Positive for headaches. Negative for dizziness, tremors, seizures and syncope. Psychiatric/Behavioral: Positive for decreased concentration. Negative for behavioral problems, self-injury and suicidal ideas. The patient is nervous/anxious. Hematological: Does not bruise/bleed easily. Endocrine: Negative for polydipsia, polyphagia and polyuria. Allergic/Immunologic: Negative for environmental allergies and food allergies. 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 No pertinent surgical history. family history includes Rheum arthritis in her mother. OBJECTIVE: Visit Vitals BP 120/80 (BP Location: Left arm, Patient Position: Sitting, BP Cuff Size: Adult long) Pulse 97 Temp 97 F (Temporal) Resp 18 Ht 5' 3 Wt 164 lb 12.8 oz SpO2 98% BMI 29.19 kg/m Smoking Status Every Day BSA 1.82 m Physical Exam Vitals and nursing note reviewed. Constitutional: General: She is not in acute distress. Appearance: Normal appearance. HENT: Head: Normocephalic and atraumatic. Right Ear: Tympanic membrane, ear canal and external ear normal. Left Ear: Tympanic membrane, ear canal and external ear normal. Ears: Comments: Right TM dull Nose: Nose normal. No congestion or rhinorrhea. Comments: Sinus pressure right maxillary and frontal Mouth/Throat: Mouth: Mucous membranes are moist. Eyes: Extraocular Movements: Extraocular movements intact. Conjunctiva/sclera: Conjunctivae normal. Neck: Vascular: No carotid bruit. Cardiovascular: Rate and Rhythm: Normal rate and regular rhythm. Pulses: Normal pulses. Heart sounds: Normal heart sounds. Pulmonary: Effort: Pulmonary effort is normal. Breath sounds: Wheezing (few loose scattered wheeze) present. Abdominal: General: Bowel sounds are normal. There is no distension. Palpations: Abdomen is soft. There is no mass. Tenderness: There is no abdominal tenderness. Musculoskeletal: General: Normal range of motion. Cervical back: Normal range of motion and neck supple. Right lower leg: No edema. Left lower leg: No edema. Lymphadenopathy: Cervical: No cervical adenopathy. Skin: General: Skin is warm and dry. Capillary Refill: Capillary refill takes 2 to 3 seconds. Findings: No rash. Neurological: General: No focal deficit present. Mental Status: She is alert and oriented to person, place, and time. Psychiatric: Mood and Affect: Mood normal. Behavior: Behavior normal. Thought Content: Thought content normal. Judgment: Judgment normal. ASSESSMENT AND PLAN: No follow-ups on file. Problem List Items Addressed This Visit Adult ADHD (attention deficit hyperactivity disorder) ([facility]) No changes in meds or doses OARRS reviewed Fu in 3 months Relevant Medications lisdexamfetamine (Vyvanse) 50 MG capsule lisdexamfetamine (Vyvanse) 50 MG capsule (Start on 11/20/2023) lisdexamfetamine (Vyvanse) 50 MG capsule (Start on 12/20/2023) Anxiety Continue with effexor Relevant Medications venlafaxine XR (Effexor XR) 150 MG 24 hr capsule BMI 29.0-29.9,adult Rheumatoid arthritis ([facility]/HCC) Continue with Rheumatology Tobacco user - Primary Neutropenia, unspecified ([facility]) Recheck CBC Relevant Orders CBC and differential Subacute maxillary sinusitis Atb, fluid, rest follow up if not better Will give albuterol refill as well for wheeze Non toxic looking Relevant Medications amoxicillin-clavulanate (Augmentin) 875-125 MG tablet Wheezing Relevant Medications albuterol HFA (Ventolin HFA) 90 mcg/act inhaler documented in this encounter [facility] 08-17-2023 Telephone encounter Note Spoke with patient Rescheduled due to illness- pt requests Fridays only Scheduled a few out also Devi Wagner August 17, 2023 10:57 AM [facility] 08-17-2023 Miscellaneous Notes Spoke with patient Rescheduled due to illness- pt requests Fridays only Scheduled a few out also Devi Guerrerokristen August 17, 2023 10:57 AM LM on informing patient that infusion has been cancelled due to being on antibiotics. Need to reschedule the 08/17 infusion Devi Guerrerokristen August 16, 2023 4:04 PM Pt scheduled for infusion 08/18/23. Noted pt in ED 08/14/23. Started on antibiotics for ear infection. Please call patient to reschedule infusion 2 weeks after completion of antibiotics. documented in this encounter [facility] 08-16-2023 Telephone encounter Note LM on informing patient that infusion has been cancelled due to being on antibiotics. Need to reschedule the 08/17 infusion Devi Guerrerokristen August 16, 2023 4:04 PM [facility] 08-16-2023 Telephone encounter Note Pt scheduled for infusion 08/18/23. Noted pt in ED 08/14/23. Started on antibiotics for ear infection. Please call patient to reschedule infusion 2 weeks after completion of antibiotics. [facility] 07-20-2023 Telephone encounter Note Spoke with pt, confirmed she will be in for her infusion tomorrow. Denies any issues at this time. [facility] 07-20-2023 Miscellaneous Notes Spoke with pt, confirmed she will be in for her infusion tomorrow. Denies any issues at this time. documented in this encounter [facility] 06-28-2023 Note HNO ID: [id number] Author: ?, ?, ? Service: ? Author Type: ? Type: Progress Notes Filed: 06/28/2023 10:10 Note Text: Called and LMOM for patient to call the office back to get reschedule for her appointment with [facility] and then her Infusion right after. Please warm transfer to [facility]. [facility] 06-28-2023 History of Present illness Narrative Called and LMOM for patient to call the office back to get reschedule for her appointment with [facility] and then her Infusion right after. Please warm transfer to [facility] center. documented in this encounter [facility] 06-25-2023 Telephone encounter Note Called and LMOM for patient to call the office back so we can get her rescheduled from her appointment and Infusion on 06/23/2023 that she cancel. Please warm transfer to [facility] 06-25-2023 Miscellaneous Notes Called and LMOM for patient to call the office back so we can get her rescheduled from her appointment and Infusion on 06/23/2023 that she cancel. Please warm transfer to [facility] documented in this encounter [facility] 06-22-2023 Telephone encounter Note Called patient to get her rescheduled and she is going to go ahead and keep her appointment. Patient will be here for her appointment with Fariba and then get her infusion. [facility] 06-22-2023 Miscellaneous Notes Called patient to [...] confirm scheduled infusion. documented in this encounter [facility] 06-22-2023 Telephone encounter Note Spoke with patient on phone. Patient states she needs to reschedule tomorrows infusion do to starting a new job and working tomorrow. Will have scheduling reach out and reschedule infusion. [facility] 06-22-2023 Telephone encounter Note LMOM for patient to call back and confirm scheduled infusion. [facility] 05-28-2023 Miscellaneous Notes Call placed to patient to inquire how she is feeling since visit [facility]zing. She states she is feeling better and has had no further issues. James Hill CNP notified. documented in this encounter [facility] 05-26-2023 Miscellaneous Notes Addended by: SILVIA COOPER on: 05/26/2023 03:06 PM Modules accepted: Orders documented in this encounter [facility] 05-26-2023 Instructions Silvia Cooper APRN.CNP - 05/26/2023 2:00 PM EDT Albuterol as needed- inhaler sent If needed, only if needed, Prednisone 40 mg once daily x 5 days with food Consider Zyrtec daily until Mothers day or longer Follow up as needed documented in this encounter [facility] 05-26-2023 Note HNO ID: [id number] Author: SILVIA COOPER APRN.ANTHONY Service: ? Author Type: Nurse Practitioner Type: Progress Notes Filed: 05/26/2023 14:15 Note Text: This note was created using [employer]. Subjective Any Ludwig is a 38 year old female. This 38 year old female present sot [facility] with expiratory wheeze, was in [...] - PREDNISONE 20 MG TABLET Silvia Cooper APRN.[facility] 05-26-2023 History of Present illness Narrative This note was created using [employer]. Subjective Any Ludwig is a 38 year old female. This 38 year old female present sot [facility] with expiratory wheeze, was in infusions [...] - PREDNISONE 20 MG TABLET Silvia Cooper APRN.LINE ANALYST documented in this encounter [facility] 05-26-2023 History of Present illness Narrative FOLLOW UP VISIT-in person PCP: Tino Blake MD [address] [place] [address] Ms. 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 Until she has her [...] over her lifetime. We are assisting with social scientist consult, also to help with adherence to [...] which included preparing to see the patient, etoi-qk-vikh patient care, completing clinical documentation, obtaining and/or [...] Tino Blake MD documented in this encounter [facility] 05-26-2023 Note HNO ID: [id number] Author: FARIBA HILL APRN.CNP Service: ? Author Type: Nurse Practitioner Type: Progress Notes Filed: 06/07/2023 08:14 Note Text: FOLLOW UP VISIT-in person PCP: Tino Blake MD [address] [place] [address] Ms. 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 Until she has her [...] over her lifetime. We are assisting with social scientist consult, also to help with adherence to health care and patient's social support, especially kristie (more content not included)... [facility] 05-26-2023 Note HNO ID: [id number] Author: KORIN PUGA RN Service: ? Author Type: Registered Nurse Type: Progress Notes Filed: 05/26/2023 13:26 Note Text: Since your last infusion, have you: Had any major change in your health (including new diagnosis of cancer, COPD or cogestive heart failure? No Been hospitalized? No Had any infections? No Taking antibiotics/antivirals/antifungal s for current infection? No Had surgery or [...] No New rash or open sores? No [facility] 05-26-2023 History of Present illness Narrative Since your last infusion, have you: Had any major change in your health (including new diagnosis of cancer, COPD or cogestive heart failure? No Been hospitalized? No Had any infections? No Taking antibiotics/antivirals/antifungal s for current infection? No Had surgery or [...] open sores? No documented in this encounter [facility] 05-25-2023 Miscellaneous Notes Spoke with patient; confirmed infusion tomorrow. Denies any issues. LMOM for patient to call back and confirm patient will be in tomorrow for scheduled infusion and has not been ill recently or on ATB. documented in this encounter [facility] 05-18-2023 Miscellaneous Notes Called patient on [...] Slot held: N/A documented in this encounter [facility] 05-14-2023 Miscellaneous Notes Patient has been identified by name and Date of : Yes Patient: Any Ludwig Date of : 1985 Provider for this encounter : Fariba Hill APRN.CNP Reason for call: US ELBOW L Was an appointment scheduled: No Reason for requesting visit (RFV/signs and symptoms/diagnosis) : Localized superficial swelling, mass, or lump [R22.9] Seropositive rheumatoid arthritis (HCC) [M05.9] Person calling: self Return call to: self Call patient at: at home [phone] (home) [phone] (cell) Payor: [place]ITH[place] MEDICAID / Plan: HARITHA [facility] MEDICAID [facility] / Product Type: Medicaid / DIANA Richey documented in this encounter [facility] 04-28-2023 Miscellaneous Notes Corrected please schedule Could you please check the Ultrasound of the Left Elbow Thank you Yessy documented in this encounter [facility] 04-28-2023 History of Present illness Narrative Since your last infusion, have you: Had any major change in your health (including new diagnosis of cancer, COPD or cogestive heart failure? No Been hospitalized? No, but ED visit 04/13/23 pain/swelling, given prednisone Had any infections? No Taking antibiotics/antivirals/antifungal s for current infection? No Had surgery or [...] L elbow ultrasound. documented in this encounter [facility] 04-28-2023 History of Present illness Narrative FOLLOW UP VISIT-in person PCP: Tino Blake MD [address] [place] [address] Ms. Ludwig is a 38 year old patient here today for follow up of RA Interim History: More pain Swelling - right elbow , nodule Am stiffness - 1 hours Worse with weather changes Pain -08/31 Not taking anything for pain No infections No illness vit d 1999 international unit(s) daily Actemra [...] Vitamin D Deficiency - 04/23/2017 PHYSICAL EXAMINATION: [facility] 01/13/2023 (Approximate) GENERAL: alert and appropriate, [...] is planning to follow up with local edger saw operator closer to home. Until she has her [...] over her lifetime. We are assisting with social scientist consult, also to help with adherence to [...] which included preparing to see the patient, liyz-on-xuqn patient care, completing clinical documentation, obtaining and/or [...] Tino Blake MD documented in this encounter [facility] 04-21-2023 Miscellaneous Notes Please change patient schedule going forward with a ov each infusion with me If patients normal time to come is is 1130 Please use my 1100 slot 60min for every infusion with infusion directly following LMOM for patient to call the office back Please warm transfer to [facility] - April appointment has been scheduled as [...] you kindly, fa documented in this encounter [facility] 03-31-2023 History of Present illness Narrative Since your last infusion, have you: Had any major change in your health (including new diagnosis of cancer, COPD or cogestive heart failure? No Been hospitalized? No Had any infections? No Taking antibiotics/antivirals/antifungal s for current infection? No Had surgery or [...] open sores? No documented in this encounter [facility] 03-30-2023 Miscellaneous Notes Spoke with patient, she will be in for infusion. Denies infections Called and left message with return number to verify patient will be here tomorrow and is infection free and not on antibiotics. documented in this encounter [facility] 02-18-2023 Miscellaneous Notes Patient has been rescheduled as requested Pt did not show for her infusion today. Please call her to reschedule. LMOM for patient to call back regarding infusion for tomorrow LMOM for patient to confirm patient is coming for infusion tomorrow. VM left for patient to call office to confirm infusion. documented in this encounter [facility] 02-01-2023 Miscellaneous Notes LMOM for patient to call us back to reschedule her infusion . Please warm transfer to [facility] ----- Message from Irais Ochoa sent at 02/01/2023 3:13 PM EST ----- Regarding: infusion reschedule Contact: Patient name: Any Ludwig Who is calling: Patient Call back number: [phone] [facility] ordering provider: Dr Mccann Type of infusion: Actemra Patient just needs to reschedule 02/02/23 appt documented in this encounter [facility] 02-01-2023 Miscellaneous Notes Spoke with patient, she will be in for infusion, denies any signs or symptoms of illness LMOM for patient to call back regarding infusion for tomorrow documented in this encounter [facility] 01-20-2023 Miscellaneous Notes Please increase actemra 8mg/kg every 4 weeks documented in this encounter [facility] 01-20-2023 Instructions Fariba Hill APRN.ANTHONY - 01/20/2023 9:26 AM EST -PLEASE NOTE THAT WE REVIEW ALL YOUR TEST RESULTS AT YOUR NEXT FOLLOW UP VISIT WITH YOU. IF ANY ABNORMAL LAB REQUIRES SOONER ATTENTION, WE WILL CONTACT YOU. -If you have signed up on DistalMotion, we will release your test results through DistalMotion. Prednisone 20mg ( 4 tablets ) for [...] that features the Whole Plant Based diet, Solon over knives (see video online and visit website). Another movie that was recently released is: Eating You Alive (you can find it at Karo Internet) Dr. Lisa Armando is a [facility] physician who is an expert in Whole Plant based diet. His website is [employer]. His research work highlighted the benefits of [...] on a whole plant based diet, at [employer] and the free keisha is 21-Day Vegan Kickstart with meals and recipes to follow. He has multiple free videos and YouTube, for example: https://youtu.be/[email or web address] , https://youtu.be/BzXQYvnoa7l Dr. Gordy Farrell has proven starch diet whole plant based and benefit to his Rheumatoid Arthritis patients, his website: val.Vita Sound Dr. Maira Bertrand is a renowned respiratory scientist, who has studied and researched the benefits of the Whole plant based diet. He has also researched the adverse effects of animal proteins on health. He presents many of his research findings in his book The Sebewaing study. Dr. Maurilio Xie has completed many research trials proving the reversal of diseases with healthy lifestyle and the Whole Plant based diet. Dr. Maurilio Xie website is: mignonUtterz.Vita Sound UnDo It a new book by Dr. [...] or watching online and YouTube such as: Sheet Music Salesperson AJ, Cooking With Plants, The Vegan Corner (recipes from an Nepalese Sheet Music Salesperson), and visiting the provided websites for additional information on the whole plant based benefit and cooking recipes. The Whole Foods Plant Based Cooking Show Athletes such as Kelvin Kan, Antonio Guillermo, Shaheen Mooney YouTube Guilt Free Shaheen Mooney YouTube Guilt Free TV and Hua with SafeTool. Goodbye Lupus by Kandi Leonard M.D If [...] - Gentle Yoga Anyone Can Do Anywhere www.Worlize/y oga landon chi, stretching, cardio, gradual strengthening, pool [...] or a higher dose. Raw: Garlic, Cilantro, [place] nuts, Pumpkin seeds, Llano seeds and Flax seed powder have been reported to help with certain metal detoxification such as mercury. Vandervoort-3 plant based sources: rachana seeds, flax seed powder, flax milk, walnuts. Turmeric can be found natural, used as the spice powder or the root with your food. This is also available as a capsule. Sweet cherries (raw cleaned or frozen) and Turmeric have anti-inflammatory benefit Start reviewing the Whole Plant Based Diet, by watching Solon over [employer] movie and then review website. There are many other resources and educational information on the Whole plant based diet on the Internet and documentaries. There are other resources for wellness that you can also benefit from, such as the [facility] Wellness website, [facility]org and includes the Mediterranean heart healthy diet and yoga and meditation. Please avoid all dairy products. You could use non-dairy milk such as Flax milk, Cashew milk, [place] milk, Rice milk, Oat milk or Hemp [...] the following resources: www.nof.org (National Osteoporosis Foundation) http://www.osteo.org/osteolinks.a sp National Institutes of Health: 2-578-399-BONE The Calcium Information Center: Non-Dairy, Plant based Milk, contain 1 glass = 450 mg of calcium Exampled include Flax Milk, [place] Milk, Cashew Milk Examples of Food Sources of Calcium from NIH Food Milligrams (mg) per serving Percent DV* Soymilk, calcium-fortified, 8 ounces 299 30 [place] juice, calcium-fortified, 6 ounces 261 26 Tofu, firm, made with calcium sulfate, cup* 253 25 Tofu, soft, made with calcium sulfate, cup* 138 14 Fybip-jm-vzg cereal, calcium-fortified, 1 cup 100-1,000 10-100 Turnip greens, fresh, boiled, cup 99 10 Kale, raw, chopped, 1 cup 100 10 Kale, fresh, cooked, 1 cup 94 9 German cabbage, bok gilbert, raw, shredded, 1 cup 74 7 Bread, white, 1 slice 73 7 Tortilla, corn, tbsms-rr-mhmq/mcgee, one 6 diameter 46 5 Tortilla, flour, evlvu-mp-rqzr/mcgee, one 6 diameter 32 3 Bread, whole-wheat, 1 slice 30 3 Broccoli, raw, cup 21 2 * DV = Daily Value. DVs were developed by the U.S. Food and Drug Administration to help consumers compare the nutrient contents among products within the context of a total daily diet. The U.S. Department of Agriculture s (Cloudbuild s) Nutrient Database Web site lists the [...] You could acces this information online at: http://ods..nih.gov/factsheets/ Calcium-HealthProfessional/ Vitamin D: Vitamin D3= cholecalciferol, available over the counter. Dose recommended 800 to 1000 iu daily with a meal; Certain patients required 7424-7009 iu daily and in patients deficient in [...] bones. Studies show approximately 50% of [place] men and women are vitamin D deficient [...] available from: www.nof.org (the national osteoporosis foundation) http://www.[facility].org/ar thritis/osteo/info.htm http://ods.od.nih.gov/factsheets/ vitamind.asp National Institutes of Health: 2-127-109-BONE [facility] Calcium Information Danese: Thank you for choosing [facility] for your healthcare. Sincerely, Fariba Hill APRN.LINE ANALYST documented in this encounter [facility] 01-20-2023 History of Present illness Narrative FOLLOW UP VISIT-in person PCP: Tino Blake MD [address] [place] [address] Ms. 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 Until she has her [...] over her lifetime. We are assisting with social scientist consult, also to help with adherence to [...] which included preparing to see the patient, srvf-dq-zuuk patient care, completing clinical documentation, obtaining and/or reviewing separately obtained history, performing a medically appropriate examination, counseling and educating the patient/family/caregiver, and ordering medications, tests, or procedures. Fariba Hill APRN.LINE ANALYST Recommendations to share with referring physician/Primary care [...] the care of your patient. Fariba Hill APRN.LINE ANALYST CC: Tino Blake MD documented in this encounter [facility] 12-31-2022 History of Present illness Narrative Since your last infusion, have you: Had any major change in your health (including new diagnosis of cancer, COPD or cogestive heart failure? No Been hospitalized? No Had any infections? No Taking antibiotics/antivirals/antifungal s for current infection? No Had surgery or [...] open sores? No documented in this encounter [facility] 12-30-2022 Miscellaneous Notes Patient calling in to office. Verified by name and . She states that she is infection free and not currently taking any antibiotics. She denies any hospitalizations or changes in health since her last infusion. She will be in tomorrow as scheduled for infusion. VM left for pt to call office to confirm infusion tomorrow. documented in this encounter [facility] 12-18-2022 Miscellaneous Notes Left message for patient to call office regarding below. sent mychart Left message for patient to call office regarding below. Please call patient Normal liver enzymes Will recheck in 1 month May restart arava 10mg daily Received outside lab results from [facility] AST and ALT results completed on 12/14 ALT: 33 AST: 19 placed on Fariba's desk for review documented in this encounter [facility] 12-14-2022 Miscellaneous Notes Lab orders faxed with confirmation to below number. [facility] calling about orders. Patient did not give correct fax number. Please re-fax to [phone]. Patient is still waiting at lab. Please advise. DIANA Bethea [place] POST (Patient Operations Support Team) Please note: Please do not re-route phone encounters back to this agent, please send to appropriate office pool. Agent works in operations center and cannot complete patient specific tasks. Fariba from [facility] called to follow up on request -- lab orders faxed to [phone] as requested with confirmation Any Ludwig is calling Fariba Hill APRN.LINE ANALYST today to request Lab Orders be faxed to [facility]. She believes their fax number is [phone]. She states we can call them to verify at [phone]. Please notify pt once orders have been faxed. Patient has been identified by name and birthdate. Duration of symptoms: N/A Person calling: self Call patient at: on cell [phone] (home) [phone] (cell) Was an appointment scheduled: No Closing statement: Results or non-symptom based questions: Thank you for calling [facility], your call will be returned within the next business day. Komal Nunn documented in this encounter [facility] 12-11-2022 Miscellaneous Notes Spoke with patient [...] Abs Lymph 1.00 - 4.00 k/uL 3.92 Cotton% % 8.2 Abs Cotton <0.87 k/uL 0.65 Eosin% % 2.3 Abs [...] 20 mm/hr 20 documented in this encounter [facility] 11-25-2022 Miscellaneous Notes LMOM for patient to call the office if she is able to move from Fri to Thur. Please warm transfer to [facility] documented in this encounter [facility] 11-13-2022 Miscellaneous Notes Left VM that steroid has been sent to pharmacy. Left message for patient to call office regarding below. Please call patient Steriod taper sent to the pharmacy please update patient Patient calling to ask questions re: infusion that was supposed to be for 11/12 but was cancelled due to no approval yet from insurance Please call patient back at [phone] Devi Wagner November 11, 2022 12:49 PM documented in this encounter [facility] 10-22-2022 History of Present illness Narrative Since your last infusion, have you: Had any major change in your health (including new diagnosis of cancer, COPD or cogestive heart failure? No Been hospitalized? No Had any infections? No Taking antibiotics/antivirals/antifungal s for current infection? No Had surgery or [...] prior to leaving. documented in this encounter [facility] 10-22-2022 Fariba Fragoso APRN.CNP - 10/22/2022 9:35 AM EDT -PLEASE NOTE THAT WE REVIEW ALL YOUR TEST RESULTS AT YOUR NEXT FOLLOW UP VISIT WITH YOU. IF ANY ABNORMAL LAB REQUIRES SOONER ATTENTION, WE WILL CONTACT YOU. -If you have signed up on DistalMotion, we will release your test results through DistalMotion. Plan to start actemra in 2 weeks [...] that features the Whole Plant Based diet, Solon over knives (see video online and visit website). Another movie that was recently released is: Eating You Alive (you can find it at Kar[employer]) Dr. Lisa Armando is a [facility] physician who is an expert in Whole Plant based diet. His website is [employer]. His research work highlighted the benefits of [...] on a whole plant based diet, at [employer]Transfer[employer] and the free keisha is 21-Day Vegan Kickstart with meals and recipes to follow. He has multiple free videos and YouTube, for example: https://youMarketYze.be/ilvNoazU3l4 , https://youTeach Me To Beu.be/RyGESeory6t Dr. Gordy Farrell has proven starch diet whole plant based and benefit to his Rheumatoid Arthritis patients, his website: drSiving Egil [place] Dr. Maira Bertrand is a renowned respiratory scientist, who has studied and researched the benefits of the Whole plant based diet. He has also researched the adverse effects of animal proteins on health. He presents many of his research findings in his book The Sebewaing study. Dr. Maurilio Xie has completed many research trials proving the reversal of diseases with healthy lifestyle and the Whole Plant based diet. Dr. Maurilio Xie website is: mignonUtterz.Vita Sound UnDo It a new book by Dr. Maurilio Thomas has dedicated a website and additional time to reviewing all food related articles and research and presents them in his power point presentation and on his website at: nutritionfacts.org Dr. Thomas has multiple free videos and YouTube, for example https://Cybereason.be/aSgNkhgVtks and https://Cybereason.be/lXXXygDRyBU. Also, you could find additional information by reading or watching online and YouTube such as: Sheet Music Salesperson AJ, Cooking With Plants, The Vegan Corner (recipes from an Nepalese Sheet Music Salesperson), and visiting the provided websites for additional information on the whole plant based benefit and cooking recipes. The Whole Foods Plant Based Cooking Show Athletes such as Kelvin Kan, Antonio Guillermo, Shaheen Mooney YouTube Guilt Free Shaheen Mooney YouTube Guilt Free TV and Hua with SafeTool. Goodbye Lupus by Kandi Leonard M.D If [...] - Gentle Yoga Anyone Can Do Anywhere www.PowerInbox.Vita Sound/y oga landon chi, stretching, cardio, gradual strengthening, pool [...] or a higher dose. Raw: Garlic, Cilantro, [place] nuts, Pumpkin seeds, Ll[place] seeds and Flax seed powder have been reported to help with certain metal detoxification such as mercury. Vandervoort-3 plant based sources: rachana seeds, flax seed powder, flax milk, walnuts. Turmeric can be found natural, used as the spice powder or the root with your food. This is also available as a capsule. Sweet cherries (raw cleaned or frozen) and Turmeric have anti-inflammatory benefit Start reviewing the Whole Plant Based Diet, by watching Solon over [employer] movie and then review website. There are many other resources and educational information on the Whole plant based diet on the Internet and documentaries. There are other resources for wellness that you can also benefit from, such as the [facility] Wellness website, [facility]org and includes the Mediterranean heart healthy diet and yoga and meditation. Please avoid all dairy products. You could use non-dairy milk such as Flax milk, Cashew milk, [place] milk, Rice milk, Oat milk or Hemp [...] the following resources: www.nof.org (National Osteoporosis Foundation) http://www.osteo.org/osteolinks.a sp National Institutes of Health: 6-679-809-BONE [facility] Calcium Information Danese: Non-Dairy, Plant based Milk, contain 1 glass = 450 mg of calcium Exampled include Flax Milk, [place] Milk, Cashew Milk Examples of Food Sources of Calcium from [facility] Food Milligrams (mg) per serving Percent DV* Soymilk, calcium-fortified, 8 ounces 299 30 [place] juice, calcium-fortified, 6 ounces 261 26 Tofu, firm, made with calcium sulfate, cup* 253 25 Tofu, soft, made with calcium sulfate, cup* 138 14 Rjakn-ln-phs cereal, calcium-fortified, 1 cup 100-1,000 10-100 Turnip greens, fresh, boiled, cup 99 10 Kale, raw, chopped, 1 cup 100 10 Kale, fresh, cooked, 1 cup 94 9 German cabbage, bok gilbert, raw, shredded, 1 cup 74 7 Bread, white, 1 slice 73 7 Tortilla, corn, ydmxn-rp-fqok/mcgee, one 6 diameter 46 5 Tortilla, flour, xgspo-lg-vpzd/mcgee, one 6 diameter 32 3 Bread, whole-wheat, [...] You could acces this information online at: http://ods.od.nih.gov/factsheets/ Calcium-HealthProfessional/ Vitamin D: Vitamin D3= cholecalciferol, available over the counter. Dose recommended 800 to 1000 iu daily with a meal; Certain patients required 1126-7180 iu daily and in patients deficient in [...] bones. Studies show approximately 50% of [place] [place] men and women are vitamin D deficient [...] available from: www.nof.org (the national osteoporosis foundation) http://www.[facility].org/ar thritis/osteo/info.htm http://ods.od.nih.gov/factsheets/ vitamind.asp National Institutes of Health: 4-757-303-BONE [facility] Calcium Information Danese: Thank you for choosing [facility] for your healthcare. Sincerely, Fariba Hill APRN.LINE ANALYST documented in this encounter [facility] 10-22-2022 History of Present illness Narrative FOLLOW UP VISIT-in person PCP: Tino Blake MD [address] [place] [address] Ms. 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 Until she has her [...] over her lifetime. We are assisting with social scientist consult, also to help with adherence to [...] which included preparing to see the patient, rthz-me-avke patient care, completing clinical documentation, obtaining and/or [...] Tino Blake MD documented in this encounter [facility] 10-21-2022 Miscellaneous Notes Spoke with pt; confirmed infusion appt 10/22/22 and appt with Fariba. Denies s/sx of infection or antibiotics or other issues at this time. documented in this encounter [facility] 09-17-2022 History of Present illness Narrative Since your last infusion, have you: Had any major change in your health (including new diagnosis of cancer, COPD or cogestive heart failure? No Been hospitalized? No Had any infections? No Taking antibiotics/antivirals/antifungal s for current infection? No Had surgery or [...] open sores? No documented in this encounter [facility] 09-16-2022 Miscellaneous Notes Spoke with patient, she will be in for infusion Patient returning call, but PSS told that the nurses are all busy. Patient advised that a message would be placed for the nurses to call the patient back. VM left for pt to call office for below message. documented in this encounter [facility] 09-09-2022 Miscellaneous Notes Tried calling patient 3 times and not able to leave a voice mail. If patient calls then we can offer her a sooner appointment. May offer patient sooner infusion appt since approved (09/02/2022) Time Cycle, Day Action User 10:23 AM Preauthorization Status Changed New Value: Authorized Previous Value: Waiting for Response Rodrigue (Pharmacy HelenLaverne Shea Changing plan to avsola 7.5mg /kg every 8 weeks Please expedite approval Patient is on for infusion tomorrow In process of updating plan Images from the original note were not included. === PHARMACY TEAM ==== AUTHORIZATION DENIED Denial Reason: Denial upheld on appeal Payor: [place] [employer] Date of Service: 09.01.22 Received Denial Via: Portal [employer] Freight Service Inspector Name / Call Ref #: na / na Drug name(s) & HCPCS code(s): Avsola Dx Code: [id number] rheumatoid arthritis Comment: Next step is a [...] notes with original submission. Appeal ID is [id number] ETO is 15 days from today Onbased appeal acknowledgement letter. Letter created please submit thanks === PHARMACY TEAM ==== Case Note/ Misc Comment Has appeal been submitted? If not, I can submit an appeal letter if provided via [employer] portal for Reference# [id number]. I spoke with peer to peer Will need to appeal [phone] Please ask for expedited appeal Avsola 5mg/kg [...] sent (PRN): No documented in this encounter [facility] 08-31-2022 Miscellaneous Notes Patient has been [...] at this time. documented in this encounter [facility] 06-22-2022 Miscellaneous Notes Call placed to patient to confirm she will be here for tomorrow's infusion and has had no recent infection with no answer. LMOM to call back or send my chart. documented in this encounter [facility] 04-28-2022 Instructions Fariba Hill APRN.LINE ANALYST - 04/28/2022 1:04 PM EST -PLEASE NOTE THAT WE REVIEW ALL YOUR TEST RESULTS AT YOUR NEXT FOLLOW UP VISIT WITH YOU. IF ANY ABNORMAL LAB REQUIRES SOONER ATTENTION, WE WILL CONTACT YOU. -If you have signed up on [employer], we will release your test results through Dist[employer]. Increase inflxiamab every 5 weeks 5mg/kg arava [...] that features the Whole Plant Based diet, Solon over knives (see video online and visit website). Another movie that was recently released is: Eating You Alive (you can find it at [employer]) Dr. Lisa Armando is a [facility] physician who is an expert in Whole Plant based diet. His website is [employer]. His research work highlighted the benefits of [...] on a whole plant based diet, at [employer] and the free keisha is 21-Day Vegan Kickstart with meals and recipes to follow. He has multiple free videos and YouTube, for example: https://youTeach Me To Beu.be/[email or web address] , [email or web address]://youTeach Me To Beu.be/[email or web address] Dr. Gordy Farrell has proven starch diet whole plant based and benefit to his Rheumatoid Arthritis patients, his website: [employer].Vita Sound Dr. Maira Bertrand is a renowned respiratory scientist, who has studied and researched the benefits of the Whole plant based diet. He has also researched the adverse effects of animal proteins on health. He presents many of his research findings in his book The Sebewaing study. Dr. Maurilio Xie has completed many research trials proving the reversal of diseases with healthy lifestyle and the Whole Plant based diet. Dr. Maurilio Xie website is: [employer].Vita [employer] UnDo It a new book by Dr. [...] or watching online and YouTube such as: Sheet Music Salesperson AJ, Cooking With Plants, The Vegan Corner (recipes from an Nep[place]e Sheet Music Salesperson), and visiting the provided websites for additional information on the whole plant based benefit and cooking recipes. The Whole Foods Plant Based Cooking Show Athletes such as Anotnio Baeza Jeff Morgan YouTube Guilt Free Shaheen Mooney YouTube Guilt Free TV and Hua with SafeTool. Goodbye Lupus by Kandi Leonard M.D If [...] - Gentle Yoga Anyone Can Do Anywhere www.Worlize/y oga landon chi, stretching, cardio, gradual strengthening, pool [...] or a higher dose. Raw: Garlic, Cilantro, [place] nuts, Pumpkin seeds, Llano seeds and Flax seed powder have been reported to help with certain metal detoxification such as mercury. Vandervoort-3 plant based sources: rachana seeds, flax seed powder, flax milk, walnuts. Turmeric can be found natural, used as the spice powder or the root with your food. This is also available as a capsule. Sweet cherries (raw cleaned or frozen) and Turmeric have anti-inflammatory benefit Start reviewing the Whole Plant Based Diet, by watching Solon over [employer] movie and then review website. There are many other resources and educational information on the Whole plant based diet on the Internet and documentaries. There are other resources for wellness that you can also benefit from, such as the [facility] Wellness website, [facility].org and includes the Mediterranean heart healthy diet and yoga and meditation. Please avoid all dairy products. You could use non-dairy milk such as Flax milk, Cashew milk, [place] milk, Rice milk, Oat milk or Hemp [...] the following resources: www.nof.org (National Osteoporosis Foundation) http://www.osteo.org/osteolinks.a sp [place] Institutes of Health: 3-807-052-BONE The Calcium Information Danese: Non-Dairy, Plant based Milk, contain 1 glass = 450 mg of calcium Exampled include Flax Milk, [place] Milk, Cashew Milk Examples of Food Sources of Calcium from NIH Food Milligrams (mg) per serving Percent DV* Soymilk, calcium-fortified, 8 ounces 299 30 [place] juice, calcium-fortified, 6 ounces 261 26 Tofu, firm, made with calcium sulfate, cup* 253 25 Tofu, soft, made with calcium sulfate, cup* 138 14 Lrirb-zo-gay cereal, calcium-fortified, 1 cup 100-1,000 10-100 Turnip greens, fresh, boiled, cup 99 10 Kale, raw, chopped, 1 cup 100 10 Kale, fresh, cooked, 1 cup 94 9 German cabbage, bok gilbert, raw, shredded, 1 cup 74 7 Bread, white, 1 slice 73 7 Tortilla, corn, duxsg-je-getk/mcgee, one 6 diameter 46 5 Tortilla, flour, xbbuv-bg-zlmt/mcgee, one 6 diameter 32 3 Bread, whole-wheat, [...] You could acces this information online at: http://ods..nih.gov/factsheets/ Calcium-HealthProfessional/ Vitamin D: Vitamin D3= cholecalciferol, available over the counter. Dose recommended 800 to 1000 iu daily with a meal; Certain patients required 6337-4653 iu daily and in patients deficient in [...] bones. Studies show approximately 50% of [place] men and women are vitamin D deficient [...] available from: www.nof.org (the national osteoporosis foundation) http://www.[facility].org/ar thritis/osteo/info.htm http://ods.od.nih.gov/factsheets/ vitamind.asp National Institutes of Health: 9-925-388-BONE [facility] Calcium Information Danese: Thank you for choosing [facility] for your healthcare. Sincerely, Fariba Hill APRN.LINE ANALYST documented in this encounter [facility] 04-28-2022 History of Present illness Narrative FOLLOW UP VISIT-telephone PCP: Tino Blake MD [address] [place] [address] Ms. 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 Until she has her [...] over her lifetime. We are assisting with social scientist consult, also to help with adherence to [...] only. Patient agrees the this plan PLAN/RECOMMENDATIONS: [facility] on 04/28/22 predniSONE (DELTASONE) 5 mg [...] Tino Blake MD documented in this encounter [facility] 04-16-2022 Miscellaneous Notes sent via [facility] rx resent to local pharmacy Pharmacy Information Pharmacy Address Telephone [facility]/pharmacy #[id number] [address] [place] [address] Unable to reach pt, no ans, vm full will send via [facility] -attempted to call pt and VM full [...] bld. tests in 8 wks (orders in [employer]) -Once patient has completed the 8 wk treatment, it is recommended to continue on maintenance therapy to keep the Vit D from dropping again. I recommend patient takes over the counter, Vitamin D3: 2000 international units once daily with a meal. Thank you kindly, Fariba Hill APRN.LINE ANALYST documented in this encounter [facility] 04-14-2022 History of Present illness Narrative Since your last infusion, have you: Had any major change in your health (including new diagnosis of cancer, COPD or cogestive heart failure? No Been hospitalized? No Had any infections? No Taking antibiotics/antivirals/antifungal s for current infection? No Had surgery or [...] open sores? No documented in this encounter [facility] 04-14-2022 Instructions Fariba Hill APRN.LINE ANALYST - 04/14/2022 10:44 AM EST -PLEASE NOTE THAT WE REVIEW ALL YOUR TEST RESULTS AT YOUR NEXT FOLLOW UP VISIT WITH YOU. IF ANY ABNORMAL LAB REQUIRES SOONER ATTENTION, WE WILL CONTACT YOU. -If you have signed up on DistalMotion, we will release your test results through [employer]al[employer]. Increase inflxiamab every 5 weeks 5mg/kg arava [...] that features the Whole Plant Based diet, Solon over knives (see video online and visit website). Another movie that was recently released is: Eating You Alive (you can find it at [employer]) Dr. Lisa Armando is a [facility] physician who is an expert in Whole Plant based diet. His website is [employer]. His research work highlighted the benefits of Whole plant based diet in reversing and preventing heart disease. Consider reading Curly Armando: The Engine 2 Diet, cookbook Mrs. Armando (his ) has a cookbook with many recipes on whole plant based food: The Prevent and Reverse Heart Disease cookbook. Dr. Stehpen Martinez, has a website and free keisha to help get started on a whole plant based diet, at [employer] and the free keisha is 21-Day Vegan Kickstart with meals and recipes to follow. He has multiple free videos and YouTube, for example: https://youtu.be/[email or web address] , https://youtu.be/YgJIGdrqk5v Dr. Gordy Farrell has proven starch diet whole plant based and benefit to his Rheumatoid Arthritis patients, his website: [employer].Vita Sound Dr. Maira Bertrand is a renowned respiratory scientist, who has studied and researched the benefits of the Whole plant based diet. He has also researched the adverse effects of animal proteins on health. He presents many of his research findings in his book The Sebewaing study. Dr. Maurilio Xie has completed many research trials proving the reversal of diseases with healthy lifestyle and the Whole Plant based diet. Dr. Maurilio Xie website is: [employer] UnDo It a new book by Dr. [...] or watching online and YouTube such as: Sheet Music Salesperson RAIMUNDO, Cooking With Plants, The Vegan Corner (recipes from an Nepalese Sheet Music Salesperson), and visiting the provided websites for additional information on the whole plant based benefit and cooking recipes. The Whole Foods Plant Based Cooking Show Athletes such as Kelvin Kan, Antonio Guillermo, Shaheen Mooney YouTube Guilt Free Shaheen Mooney YouTube Guilt Free TV and Hua with [employer]. Goodbye Lupus by Kandi Leonard M.D If [...] - Gentle Yoga Anyone Can Do Anywhere www.Worlize/y oga landon chi, stretching, cardio, gradual strengthening, pool [...] or a higher dose. Raw: Garlic, Cilantro, [place] nuts, Pumpkin seeds, Llano seeds and Flax seed powder have been reported to help with certain metal detoxification such as mercury. Vandervoort-3 plant based sources: rachana seeds, flax seed powder, flax milk, walnuts. Turmeric can be found natural, used as the spice powder or the root with your food. This is also available as a capsule. Sweet cherries (raw cleaned or frozen) and Turmeric have anti-inflammatory benefit Start reviewing the Whole Plant Based Diet, by watching Solon over [employer] movie and then review website. There are many other resources and educational information on the Whole plant based diet on the Internet and documentaries. There are other resources for wellness that you can also benefit from, such as the [facility] Wellness website, [facility]org and includes the Mediterranean heart healthy diet and yoga and meditation. Please avoid all dairy products. You could use non-dairy milk such as Flax milk, Cashew milk, [place] milk, Rice milk, Oat milk or Hemp [...] the following resources: www.nof.org (National Osteoporosis Foundation) http://www.osteo.org/osteolinks.a sp National Institutes of Health: 6-175-307-BONE [facility] Calcium Information Center: Non-Dairy, Plant based Milk, contain 1 glass = 450 mg of calcium Exampled include Flax Milk, [place] Milk, Cashew Milk Examples of Food Sources of Calcium from [facility] Food Milligrams (mg) per serving Percent DV* Soymilk, calcium-fortified, 8 ounces 299 30 [place] juice, calcium-fortified, 6 ounces 261 26 Tofu, firm, made with calcium sulfate, cup* 253 25 Tofu, soft, made with calcium sulfate, cup* 138 14 Eqfba-dn-oql cereal, calcium-fortified, 1 cup 100-1,000 10-100 Turnip greens, fresh, boiled, cup 99 10 Kale, raw, chopped, 1 cup 100 10 Kale, fresh, cooked, 1 cup 94 9 German cabbage, bok gilbert, raw, shredded, 1 cup 74 7 Bread, white, 1 slice 73 7 Tortilla, corn, cnpat-he-sjxj/mcgee, one 6 diameter 46 5 Tortilla, flour, vhjbk-xz-wrac/mcgee, one 6 diameter 32 3 Bread, whole-wheat, [...] You could acces this information online at: http://ods.od.nih.gov/factsheets/ Calcium-HealthProfessional/ Vitamin D: Vitamin D3= cholecalciferol, available over the counter. Dose recommended 800 to 1000 iu daily with a meal; Certain patients required 9855-3167 iu daily and in patients deficient in [...] bones. Studies show approximately 50% of [place] men and women are vitamin D deficient [...] available from: www.nof.org (the national osteoporosis foundation) http://www.[facility].org/ar thritis/osteo/info.htm http://ods.od.nih.gov/factsheets/ vitamind.asp National Institutes of Health: 6-051-463-BONE The Calcium Information Center: Thank you for choosing [facility] for your healthcare. Sincerely, Fariba Hill APRN.ANTHONY documented in this encounter [facility] 04-14-2022 History of Present illness Narrative FOLLOW UP VISIT-in person PCP: Tino Blake MD [address] [place] [address] Ms. 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 Until she has her [...] over her lifetime. We are assisting with social scientist consult, also to help with adherence to [...] which included preparing to see the patient, ggcj-lx-vndh patient care, completing clinical documentation, obtaining and/or [...] Tino Blake MD documented in this encounter [facility] 03-09-2022 Miscellaneous Notes Most recent Rheumatology visit: 01/05/2022 (with Fariba Hill) Recent Office Visits - This Specialty 01/05/2022 Seropositive rheumatoid arthritis (HCC) Rheumatology Fariba Hill APRN.CNP 10/29/2021 Seropositive rheumatoid arthritis (HCC) Rheumatology Fariba Hill APRN.CNP 07/23/2021 Seropositive rheumatoid arthritis (HCC) Rheumatology Fariba Hill APRN.CNP Upcoming Rheumatology Appointments - Next 365 Days Visit Type Date Time Department MARIBEL EST [facility] MEDICAL 04/14/2022 10:30 AM [facility] CBC: CBC Latest Ref Rng & [...] R Padilla MA documented in this encounter [facility] 03-02-2022 Miscellaneous Notes mailed as requested [...] Abs Lymph 1.00 - 4.00 k/uL 3.03 Cotton% % 8.0 Abs Cotton <0.87 k/uL 0.49 Eosin% % 4.6 Abs [...] mm/hr 29 (H) documented in this encounter [facility] 02-24-2022 History of Present illness Narrative Pt at end of infusion c/o swelling and bump on her left foot. She was asking about surgical intervention, or perhaps block, or draining. Fariba Hill LINE ANALYST was consulted. Orders were placed for pt to go have her feet xrayed. Pt was directed over to xray for same day. She verbalized understanding. Since your last infusion, have you: Had any major change in your health (including new diagnosis of cancer, COPD or cogestive heart failure? No Been hospitalized? No Had any infections? No Taking antibiotics/antivirals/antifungal s for current infection? No Had surgery or [...] open sores? No documented in this encounter [facility] 02-20-2022 Miscellaneous Notes I spoke to Any and she will be coming in for her infusion on 02-24-22. She denies having been on any recent antibiotics. documented in this encounter [facility] 02-03-2022 History of Present illness Narrative POPULATION HEALTH NAVIGATION OUTREACH Action/FYI Left vm Pt identified by name and : NO Outreach Outcome/Action Unable to reach patient: Left message [employer] message sent Did you use a PCP flex slot to schedule this appointment? No Reason for Outreach Care Gap or Scheduling/Wellness visits Payer: Payor: [employer] MEDICAID / Plan: [employer] MEDICAID / Product Type: Medicaid / Care [...] 2022 3:21 PM documented in this encounter [facility] 01-26-2022 Miscellaneous Notes Last time 10/29/2021 [...] by 01/27/2022 ThanksKeanu documented in this encounter [facility] 01-06-2022 Miscellaneous Notes Smoking Cessation Navigation Outcome of contact: Left Message Comments: A voicemail has been left for this patient regarding Tobacco Cessation support options. If this patient has any further questions they can email us at or call us at [phone]. [facility]/Smoking Cessation Navigator: Zaina Schmitz, [place] [facility] documented in this encounter [facility] 01-06-2022 Miscellaneous Notes Can you please change plan to reflect Infliximab next time increase dose to 5mg/ kg- to decrease disease activity thanks documented in this encounter [facility] 01-05-2022 History of Present illness Narrative Since your last infusion, have you: Had any major change in your health (including new diagnosis of cancer, COPD or cogestive heart failure? No Been hospitalized? No Had any infections? No Taking antibiotics/antivirals/antifungal s for current infection? No Had surgery or [...] open sores? No documented in this encounter [facility] 01-05-2022 Instructions Fariba Hill APRN.LINE ANALYST - 01/05/2022 10:34 AM EST -PLEASE NOTE THAT WE REVIEW ALL YOUR TEST RESULTS AT YOUR NEXT FOLLOW UP VISIT WITH YOU. IF ANY ABNORMAL LAB REQUIRES SOONER ATTENTION, WE WILL CONTACT YOU. -If you have signed up on [employer], we will release your test results through [employer]. Increase inflxiamab every 7 weeks 5mg/kg Start [...] that features the Whole Plant Based diet, Solon over knives (see video online and visit website). Another movie that was recently released is: Eating You Alive (you can find it at [employer]) Dr. Lisa Armando is a [facility] physician who is an expert in Whole Plant based diet. His website is [employer]. His research work highlighted the benefits of Whole plant based diet in reversing and preventing heart disease. Consider reading Rip Brennantyn: The Engine 2 Diet, cookbook Mrs. Armando (his ) has a cookbook with many recipes on whole plant based food: The Prevent and Reverse Heart Disease cookbook. Dr. Stephen Martinez, has a website and free keisha to help get started on a whole plant based diet, at [employer] and the free keisha is 21-Day Vegan Kickstart with meals and recipes to follow. He has multiple free videos and YouTube, for example: https://youMarketYze.[employer]/nxvLpweF6n2 , https://youMarketYze.[employer]/NxLSFwdpj1x Dr. Gordy Farrell has proven starch diet whole plant based and benefit to his Rheumatoid Arthritis patients, his website: [employer].Vita Sound Dr. Maira Bertrand is a renowned respiratory scientist, who has studied and researched the benefits of the Whole plant based diet. He has also researched the adverse effects of animal proteins on health. He presents many of his research findings in his book The Sebewaing study. Dr. Maurilio Xie has completed many research trials proving the reversal of diseases with healthy lifestyle and the Whole Plant based diet. Dr. Maurilio iXe website is: [employer] UnDo It a new book by Dr. Maurilio Thomas has dedicated a website and additional time to reviewing all food related articles and research and presents them in his power point presentation and on his website at: nutritionfacts.org Dr. Thomas has multiple free videos and YouTube, for example https://youMarketYze.be/aSgNkhgVtks and https://youMarketYze.be/lXXXygDRyBU. Also, you could find additional information by reading or watching online and YouTube such as: Sheet Music Salesperson AJ, Cooking With Plants, The Vegan Corner (recipes from an Nepalese Sheet Music Salesperson), and visiting the provided websites for additional information on the whole plant based benefit and cooking recipes. The Whole Foods Plant Based Cooking Show Athletes such as Kelvin Kan, Antonio Guillermo, Shaheen Mooney YouTube Guilt Free Shaheen Mooney YouTube Guilt Free TV and Hua with SafeTool. Goodbye Lupus by Kandi Leonard M.D If [...] - Gentle Yoga Anyone Can Do Anywhere www.PowerInbox.Vita Sound/y oga landon chi, stretching, cardio, gradual strengthening, pool [...] or a higher dose. Raw: Garlic, Cilantro, [place] nuts, Pumpkin seeds, Llano seeds and Flax seed powder have been reported to help with certain metal detoxification such as mercury. Vandervoort-3 plant based sources: rachana seeds, flax seed powder, flax milk, walnuts. Turmeric can be found natural, used as the spice powder or the root with your food. This is also available as a capsule. Sweet cherries (raw cleaned or frozen) and Turmeric have anti-inflammatory benefit Start reviewing the Whole Plant Based Diet, by watching Solon over [employer] movie and then review website. There are many other resources and educational information on the Whole plant based diet on the Internet and documentaries. There are other resources for wellness that you can also benefit from, such as the [facility] Wellness website, [facility] and includes the Mediterranean heart healthy diet and yoga and meditation. Please avoid all dairy products. You could use non-dairy milk such as Flax milk, Cashew milk, [place] milk, Rice milk, Oat milk or Hemp [...] the following resources: www.nof.org (National Osteoporosis Foundation) http://www.osteo.org/osteolinks.a sp [place] [employer] [facility] [place]: 9-226-800-BONE The Calcium Information Danese: Non-Dairy, Plant based Milk, contain 1 glass = 450 mg of calcium Exampled include Flax Milk, [place] Milk, Cashew Milk Examples of Food Sources of Calcium from [facility] Food Milligrams (mg) per serving Percent DV* Soymilk, calcium-fortified, 8 ounces 299 30 [place] juice, calcium-fortified, 6 ounces 261 26 Tofu, firm, made with calcium sulfate, cup* 253 25 Tofu, soft, made with calcium sulfate, cup* 138 14 Utiqo-eg-snw cereal, calcium-fortified, 1 cup 100-1,000 10-100 Turnip greens, fresh, boiled, cup 99 10 Kale, raw, chopped, 1 cup 100 10 Kale, fresh, cooked, 1 cup 94 9 German cabbage, bok gilbert, raw, shredded, 1 cup 74 7 Bread, white, 1 slice 73 7 Tortilla, corn, incnf-dk-zkis/mcgee, one 6 diameter 46 5 Tortilla, flour, xuidu-yp-nazk/mcgee, one 6 diameter 32 3 Bread, whole-wheat, [...] You could acces this information online at: http://ods.od.nih.gov/factsheets/ Calcium-HealthProfessional/ Vitamin D: Vitamin D3= cholecalciferol, available over the counter. Dose recommended 800 to 1000 iu daily with a meal; Certain patients required 6873-3497 iu daily and in patients deficient in [...] bones. Studies show approximately 50% of [place] men and women are vitamin D deficient [...] available from: www.nof.org (the national osteoporosis foundation) http://www.[facility].org/ar thritis/osteo/info.htm http://ods.od.nih.gov/factsheets/ vitamind.asp National Institutes of Health: 1-471-447-BONE [facility] Calcium Information Danese: Thank you for choosing [facility] for your healthcare. Sincerely, Fariba Hill APRN.LINE ANALYST documented in this encounter [facility] 01-05-2022 History of Present illness Narrative FOLLOW UP VISIT- virtual PCP: Tino Blake MD [address] [place] [address] Ms. 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 Until she has her [...] over her lifetime. We are assisting with social scientist consult, also to help with adherence to [...] which included preparing to see the patient, jrkt-rj-gwke patient care, completing clinical documentation, obtaining and/or [...] the care of your patient. Fariba Hill APRN.LINE ANALYST CC: Tino Blake MD documented in this encounter [facility] 01-02-2022 Miscellaneous Notes I LMOM for Any to please give us a call back. If she calls back, please ask her these pre-infusion questions. Since your last infusion, have you: Had any major change in your health (including new diagnosis of cancer, COPD or cogestive heart failure? Been hospitalized? Had any infections? Taking antibiotics/antivirals/antifungal s for current infection? Had surgery or do [...] Your infusion team documented in this encounter [facility] 12-22-2021 Miscellaneous Notes Called patient to offer to reschedule appointments to 01/01, left message with vm. Attempted to call pt, no answer. Sent her a [facility] message. Please call pt to reschedule infusion and appt with Fariba Hill (due 01/01/22). Can cancel appts on 01/05/22 if patient agrees to change to 01/01. She is scheduled 12/16/21 which is too soon. Last infusion 11/13/21, ordered every 7 weeks. Can leave appt with Fariba for tomorrow until patient calls back to acknowledge that her appts are cancelled. documented in this encounter [facility] 12-15-2021 Miscellaneous Notes I called and [...] failure? Been hospitalized? Had any infections? Taking antibiotics/antivirals/antifungal s for current infection? Had surgery or do [...] a brief explanation. documented in this encounter [facility] 11-13-2021 History of Present illness Narrative Since your last infusion, have you: Had any major change in your health (including new diagnosis of cancer, COPD or cogestive heart failure? No Been hospitalized? No Had any infections? No Taking antibiotics/antivirals/antifungal s for current infection? No Had surgery or [...] open sores? No documented in this encounter [facility] 11-11-2021 Miscellaneous Notes I LMOM for pt to please give us a call to confirm her apt. If pt returns call, please ask and document questions. Since your last infusion, have you: Had any major change in your health (including new diagnosis of cancer, COPD or cogestive heart failure? Been hospitalized? Had any infections? Taking antibiotics/antivirals/antifungal s for current infection? Had surgery or do [...] or open sores? documented in this encounter [facility] 10-29-2021 Instructions Fariba Hill APRN.LINE ANALYST - 10/29/2021 1:51 PM EDT -PLEASE NOTE THAT WE REVIEW ALL YOUR TEST RESULTS AT YOUR NEXT FOLLOW UP VISIT WITH YOU. IF ANY ABNORMAL LAB REQUIRES SOONER ATTENTION, WE WILL CONTACT YOU. -If you have signed up on MyChart, we will release your test results through DistalMotion. Increase inflxiamab every 7 weeks 5mg/kg Start [...] that features the Whole Plant Based diet, Solon over knives (see video online and visit website). Another movie that was recently released is: Eating You Alive (you can find it at Karo Internet) Dr. Lisa Armando is a [facility] physician who is an expert in Whole Plant based diet. His website is [employer]. His research work highlighted the benefits of Whole plant based diet in reversing and preventing heart disease. Consider reading Rip Burtnancy: The Engine 2 Diet, cookbook Mrs. Armando (his ) has a cookbook with many recipes on whole plant based food: The Prevent and Reverse Heart Disease cookbook. Dr. Stephen Martinez, has a website and free keisha to help get started on a whole plant based diet, at [employer] and the free keisha is 21-Day [employer] KiShanghai Yupei [employer]start with meals and recipes to follow. He has multiple free videos and YouTube, for example: https://youtu.be/[email or web address] , [email or web address] Me To Beu.be/[email or web address] Dr. Gordy Farrell has proven starch diet whole plant based and benefit to his Rheumatoid Arthritis patients, his website: val.Vita Sound Dr. Maira Bertrand is a renowned respiratory scientist, who has studied and researched the benefits of the Whole plant based diet. He has also researched the adverse effects of animal proteins on health. He presents many of his research findings in his book The Sebewaing study. Dr. Maurilio Xie has completed many research trials proving the reversal of diseases with healthy lifestyle and the Whole Plant based diet. Dr. Maurilio Xie website is: mignonUtterz.Vita Sound UnDo It a new book by Dr. Maurilio Thomas has dedicated a website and additional time to reviewing all food related articles and research and presents them in his power point presentation and on his website at: nutritionfacts.org Dr. Thomas has multiple free videos and YouTube, for example https://youTeach Me To Beu.be/aSgNkhgVtks and [email or web address]. Also, you could find additional information by reading or watching online and YouTube such as: Sheet Music Salesperson AJ, Cooking With Plants, The Vegan Corner (recipes from an [place]e Sheet Music Salesperson), and visiting the provided websites for additional information on the whole plant based benefit and cooking recipes. The Whole Foods Plant Based Cooking Show Athletes such as Kelvin Kan, Antonio Guillermo, Shaheen Mooney YouTube Guilt Free Shaheen Mooney YouTube Guilt Free TV and Hua with SafeTool. Goodbye Lupus by Kandi Leonard M.D If [...] - Gentle Yoga Anyone Can Do Anywhere www.PowerInbox.Vita Sound/y oga landon chi, stretching, cardio, gradual strengthening, pool [...] or a higher dose. Raw: Garlic, Cilantro, [place] nuts, Pumpkin seeds, Ll[place] seeds and Flax seed powder have been reported to help with certain metal detoxification such as mercury. Vandervoort-3 plant based sources: rachana seeds, flax seed powder, flax milk, walnuts. Turmeric can be found natural, used as the spice powder or the root with your food. This is also available as a capsule. Sweet cherries (raw cleaned or frozen) and Turmeric have anti-inflammatory benefit Start reviewing the Whole Plant Based Diet, by watching Solon over [employer] movie and then review website. There are many other resources and educational information on the Whole plant based diet on the Internet and documentaries. There are other resources for wellness that you can also benefit from, such as the [facility] Wellness website, [facility] and includes the Mediterranean heart healthy diet and yoga and meditation. Please avoid all dairy products. You could use non-dairy milk such as Flax milk, Cashew milk, [place] milk, Rice milk, Oat milk or Hemp [...] the following resources: www.nof.org (National Osteoporosis Foundation) http://www.osteo.org/osteolinks.a sp National Institutes of Health: 8-978-831-BONE The Calcium Information Center: Non-Dairy, Plant based Milk, contain 1 glass = 450 mg of calcium Exampled include Flax Milk, [place] Milk, Cashew Milk Examples of Food Sources of Calcium from NIH Food Milligrams (mg) per serving Percent DV* Soymilk, calcium-fortified, 8 ounces 299 30 [place] juice, calcium-fortified, 6 ounces 261 26 Tofu, firm, made with calcium sulfate, cup* 253 25 Tofu, soft, made with calcium sulfate, cup* 138 14 Equhy-dn-mwy cereal, calcium-fortified, 1 cup 100-1,000 10-100 Turnip greens, fresh, boiled, cup 99 10 Kale, raw, chopped, 1 cup 100 10 Kale, fresh, cooked, 1 cup 94 9 German cabbage, Integral Wave Technologiesk gilbert, raw, shredded, 1 cup 74 7 Bread, white, 1 slice 73 7 Tortilla, corn, vhsde-wh-rhdo/mcgee, one 6 diameter 46 5 Tortilla, flour, caphk-py-tcvt/mcgee, one 6 diameter 32 3 Bread, whole-wheat, [...] You could acces this information online at: http://ods..nih.gov/factsheets/ Calcium-HealthProfessional/ Vitamin D: Vitamin D3= cholecalciferol, available over the counter. Dose recommended 800 to 1000 iu daily with a meal; Certain patients required 2251-1382 iu daily and in patients deficient in [...] bones. Studies show approximately 50% of [place] men and women are vitamin D deficient [...] available from: www.nof.org (the national osteoporosis foundation) http://www.[facility].org/ar thritis/osteo/info.htm http://ods.od.nih.gov/factsheets/ vitamind.asp [place] [employer] [place]: 1-325-489-BONE [facility] Calcium Information Danese: Thank you for choosing [facility] for your healthcare. Sincerely, Fariba Hill APRN.LINE ANALYST documented in this encounter [facility] 10-29-2021 History of Present illness Narrative FOLLOW UP VISIT- virtual PCP: Tino Blake MD [address] [place] [address] Ms. 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 Until she has her [...] over her lifetime. We are assisting with social scientist consult, also to help with adherence to [...] from date of this visit. Fariba Hill APRN.LINE ANALYST Recommendations to share with referring physician/Primary care [...] the care of your patient. Fariba Hill APRN.LINE ANALYST CC: Tino Blake MD documented in this encounter [facility] 10-28-2021 Miscellaneous Notes If pt calls back, please answer these questions. Since your last infusion, have you: Had any major change in your health (including new diagnosis of cancer, COPD or cogestive heart failure? Been hospitalized? Had any infections? Taking antibiotics/antivirals/antifungal s for current infection? Had surgery or do [...] a brief explanation. documented in this encounter [facility] 10-07-2021 Note PROCEDURE: XR FOOT L [...] authenticated by: TERESO HERNANDEZ Date: 2021-10-07 12:06 [facility] 09-05-2021 Note OPERATIVE NOTE OPERATION DATE: 09/05/2021 PROCEDURE: Bilateral laparoscopic salpingectomy. PREOPERATIVE DIAGNOSIS:: 1. Multiparity. 2. Desires permanent sterilization. POSTOPERATIVE DIAGNOSIS:: 1. Multiparity. 2. Desires permanent sterilization. ANESTHESIA: General. SURGEON: Patricio Ram D.O. EDGER SAW OPERATOR: AMANDA Negron URINE OUTPUT: Yellow and clear. [...] and needle counts were correct x2. : [facility] Signed and Approved by: DR PATRCIIO RAM . 09/12/2021 08:16:00 [facility] 09-03-2021 History of Present illness Narrative Since your last infusion, have you: 1. Had any major change in your health (including new diagnosis of cancer, COPD or cogestive heart failure? No 2. Been hospitalized? No 3. Had any infections? No 4. Taking antibiotics/antivirals/antifungal s for current infection? No 5. Had surgery [...] open sores? No documented in this encounter [facility] 09-01-2021 Miscellaneous Notes I spoke to Sarah, she is coming for her infusion on 09-03-21. She states that she was on a z-pack for a URI, and that she has finished it 2 weeks ago. She was prescribed this from an ER visit in [place]. Pt states that she is feeling much better. documented in this encounter [facility] 08-07-2021 Miscellaneous Notes Spoke with patient Low potassium Please increase potassium in your diet: spinach, sweet potatoes, avocados, coconut water, dried fruits (dates and apricots), bananas, beans, acorn squash, mushrooms. Low vit d Will start rx Other labs acceptable range Labs in 1 month with infusion documented in this encounter [facility] 08-06-2021 History of Present illness Narrative Since your last infusion, have you: 1. Had any major change in your health (including new diagnosis of cancer, COPD or cogestive heart failure? No 2. Been hospitalized? No 3. Had any infections? No 4. Taking antibiotics/antivirals/antifungal s for current infection? No 5. Had surgery [...] open sores? No documented in this encounter [facility] 07-23-2021 History of Present illness Narrative Since your last infusion, have you: 1. Had any major change in your health (including new diagnosis of cancer, COPD or cogestive heart failure? No 2. Been hospitalized? No 3. Had any infections? No 4. Taking antibiotics/antivirals/antifungal s for current infection? No 5. Had surgery [...] open sores? No documented in this encounter [facility] 07-23-2021 Instructions Fariba Hill APRN.LINE ANALYST - 07/23/2021 9:08 AM EDT -PLEASE NOTE THAT WE REVIEW ALL YOUR TEST RESULTS AT YOUR NEXT FOLLOW UP VISIT WITH YOU. IF ANY ABNORMAL LAB REQUIRES SOONER ATTENTION, WE WILL CONTACT YOU. -If you have signed up on Biopharmacopaet, we will release your test results through DistalMotion. - Vitamin D : vitamin D3: 2000 [...] that features the Whole Plant Based diet, Solon over knives (see video online and visit website). Another movie that was recently released is: Eating You Alive (you can find it at Karo [employer]) Dr. Lisa Armando is a [facility] physician who is an expert in Whole Plant based diet. His website is [employer]. His research work highlighted the benefits of Whole plant based diet in reversing and preventing heart disease. Consider reading Curly Prabha: The Engine 2 Diet, cookbook Mrs. Armando (his ) has a cookbook with many recipes on whole plant based food: The Prevent and Reverse Heart Disease cookbook. Dr. Stephen Martinez, has a website and free keisha to help get started on a whole plant based diet, at [employer] and the free keisha is 21-Day DigitalMR with meals and recipes to follow. He has multiple free videos and YouTube, for example: https://youTeach Me To Beu.be/egcNduoT5w5 , https://youtu.be/ShLTSiubl1c Dr. Gordy Farrell has proven starch diet whole plant based and benefit to his Rheumatoid Arthritis patients, his website: Sub[employer] Dr. Maira Bertrand is a renowned respiratory scientist, who has studied and researched the benefits of the Whole plant based diet. He has also researched the adverse effects of animal proteins on health. He presents many of his research findings in his book The Sebewaing study. Dr. Maurilio Xie has completed many research trials proving the reversal of diseases with healthy lifestyle and the Whole Plant based diet. Dr. Maurilio Xie website is: mignonUtterz.Vita Sound UnDo It a new book by Dr. Maurilio Thomas has dedicated a website and additional time to reviewing all food related articles and research and presents them in his power point presentation and on his website at: nutritionfacts.org Dr. Thomas has multiple free videos and YouTube, for example https://youtu.be/aSgNkhgVtks and https://youTeach Me To Beu.be/lXXXygDRyBU. Also, you could find additional information by reading or watching online and YouTube such as: Sheet Music Salesperson AJ, Cooking With Plants, The Vegan Corner (recipes from an [place]e Sheet Music Salesperson), and visiting the provided websites for additional information on the whole plant based benefit and cooking recipes. The Whole Foods Plant Based Cooking Show Athletes such as Kelvin Kan, Antonio Guillermo, Shaheen Mooney YouTube Guilt Free Shaheen Mooney YouTube Guilt Free TV and Hua with [employer]. Goodbye Lupus by Kandi Leonard M.D If [...] - Gentle Yoga Anyone Can Do Anywhere www.Worlize/y oga landon chi, stretching, cardio, gradual strengthening, pool [...] or a higher dose. Raw: Garlic, Cilantro, [place] nuts, Pumpkin seeds, [place] seeds and Flax seed powder have been reported to help with certain metal detoxification such as mercury. Vandervoort-3 plant based sources: rachana seeds, flax seed powder, flax milk, walnuts. Turmeric can be found natural, used as the spice powder or the root with your food. This is also available as a capsule. Sweet cherries (raw cleaned or frozen) and Turmeric have anti-inflammatory benefit Start reviewing the Whole Plant Based Diet, by watching Solon over [employer] movie and then review website. There are many other resources and educational information on the Whole plant based diet on the Internet and documentaries. There are other resources for wellness that you can also benefit from, such as the [facility] Wellness website, [facility] [facility]org and includes the Mediterranean heart healthy diet and yoga and meditation. Please avoid all dairy products. You could use non-dairy milk such as Flax milk, Cashew milk, [place] milk, Rice milk, Oat milk or Hemp [...] the following resources: www.nof.org (National Osteoporosis Foundation) http://www.osteo.org/osteolinks.a sp National Institutes of Health: 5-353-826-BONE The Calcium Information Danese: Non-Dairy, Plant based Milk, contain 1 glass = 450 mg of calcium Exampled include Flax Milk, [place] Milk, Cashew Milk Examples of Food Sources of Calcium from [employer] Food Milligrams (mg) per serving Percent DV* Soymilk, calcium-fortified, 8 ounces 299 30 [place] juice, calcium-fortified, 6 ounces 261 26 Tofu, firm, made with calcium sulfate, cup* 253 25 Tofu, soft, made with calcium sulfate, cup* 138 14 Iqvyo-qp-thu cereal, calcium-fortified, 1 cup 100 1,000 10 100 Turnip greens, fresh, boiled, cup 99 10 Kale, raw, chopped, 1 cup 100 10 Kale, fresh, cooked, 1 cup 94 9 German cabbage, bok gilbert, raw, shredded, 1 cup 74 7 Bread, white, 1 slice 73 7 Tortilla, corn, lvgcz-bq-zhlm/mcgee, one 6 diameter 46 5 Tortilla, flour, znfvd-xk-piyf/mcgee, one 6 diameter 32 3 Bread, whole-wheat, [...] You could acces this information online at: http://ods.od.nih.gov/factsheets/ Calcium-HealthProfessional/ Vitamin D: Vitamin D3= cholecalciferol, available over the counter. Dose recommended 800 to 1000 iu daily with a meal; Certain patients required 2841-1924 iu daily and in patients deficient in [...] bones. Studies show approximately 50% of [place] men and women are vitamin D deficient [...] available from: www.nof.org (the national osteoporosis foundation) http://www.[facility].org/ar thritis/osteo/info.htm http://ods.od.nih.gov/factsheets/ vitamind.asp National Institutes of [place]: 0-049-934-BONE [facility] Calcium Information Danese: Thank you for choosing [facility] for your healthcare. Sincerely, Fariba Hill APRN.LINE ANALYST documented in this encounter [facility] 07-23-2021 History of Present illness Narrative FOLLOW UP VISIT- virtual PCP: Tino Blake MD [address] [place] [address] Ms. 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 Until she has her [...] over her lifetime. We are assisting with social scientist consult, also to help with adherence to [...] which included preparing to see the patient, igyr-pz-eurw patient care, completing clinical documentation, obtaining and/or [...] from date of this visit. Fariba Hill APRN.LINE ANALYST Recommendations to share with referring physician/Primary care [...] the care of your patient. Fariba Hill APRN.LINE ANALYST CC: Tino Blake MD documented in this encounter [facility] 07-22-2021 Miscellaneous Notes Patient called back stating that she will be hear for her infusion tomorrow. Patient can be reached at [phone]. Please advise. I left a message for [...] will be cancelled. documented in this encounter [facility] 07-18-2021 Miscellaneous Notes Sent pt a [facility] message. Attempted to contact patient Unable to leave message as voicemail is full No alternate number to try Please try again later Attempted number on file. No answer, unable to leave a message. I then attempted to reach number on file [phone] & she states there is nobody by the name Any at that phone number. Phylicia Torres MA Please call and update patient reflexis infusion approved. Please remind patient to complete labs this week thanks documented in this encounter [facility] 07-10-2021 Miscellaneous Notes Per Chilo, initial [...] hears back. Please advise, thanks! [facility] [phone] Patient has been on mtx and arava [...] Request from Payor by: Phone [facility] [phone] Email Sent to: TE encounter Requested Clinicals/Information Sent: N/A documented in this encounter [facility] 06-26-2021 Miscellaneous Notes Fax received and [...] Phylicia Torres MA [facility] Given to Fariba for review. Phylicia Torres MA [facility] approval documented in this encounter [facility] 06-17-2021 Miscellaneous Notes Patient has been scheduled as requested for 06/20/21. I spoke with Ms. Ludwig and she is aware of all of the appointment details. Bailey Walker PSS June 17, 2021 11:56 AM Pt aware. Please call to schedule pt for lab as pt requested an apt. Thanks. Phylicia Torres MA ----- Message from [place] APRN.LINE ANALYST sent at 06/16/2021 4:27 PM EDT ----- Please call patient and review documented in this encounter [facility] 09-15-2020 Hospital Discharge instructions Loida Caro PA-C - 09/15/2020 Call to arrange follow-up with primary care for repeat check within 24 to 48 hours. If you go home develop a high fever or worsening symptoms do not hesitate to return to the ER immediately. The following attachments cannot be sent through Care Everywhere.Pneumonia (Mongolian)documented in this encounter [facility] Phone: Evaluation note Diagnosis Pneumonia of both lungs due to infectious organism, unspecified part of lung- Primary documented in this encounter [facility] Phone: evaluation note* Diagnosis Right upper quadrant abdominal pain Abdominal pain, right upper quadrant documented in this encounter [facility] Phone: evaluation note* Diagnosis Seropositive rheumatoid arthritis (HCC)- Primary Rheumatoid arthritis documented in this encounter [facility] note* Diagnosis Seropositive rheumatoid arthritis [...] therapeutic drug monitoring documented [facility] this [facility] Diagnosis Seropositive rheumatoid arthritis (HCC)- Primary Rheumatoid arthritis Vitamin D deficiency Unspecified vitamin D deficiency documented in this encounter [facility] note* Diagnosis Seropositive rheumatoid arthritis (HCC)- Primary Rheumatoid arthritis Vitamin D deficiency Unspecified vitamin D deficiency documented [facility] this encounter [facility] Diagnosis Dermatomyositis (HCC)- Primary Dermatomyositis Seropositive rheumatoid arthritis (HCC) Rheumatoid arthritis Vitamin D deficiency Unspecified vitamin D deficiency documented in this encounter [facility] Diagnosis Seropositive rheumatoid arthritis (HCC)- [...] (HCC) Rheumatoid arthritis documented in this encounter [facility] Diagnosis Seropositive rheumatoid arthritis (HCC)- Primary Rheumatoid arthritis Vitamin D deficiency Unspecified vitamin D deficiency documented in this encounter [facility] Diagnosis Seropositive rheumatoid arthritis (HCC)- [...] (HCC) Rheumatoid arthritis documented in this encounter [facility] Diagnosis Vitamin D deficiency- Primary Unspecified vitamin D deficiency Seropositive rheumatoid arthritis (HCC) Rheumatoid arthritis documented in this encounter [facility] Diagnosis Seropositive rheumatoid arthritis (HCC)- Primary Rheumatoid arthritis documented in this encounter [facility] Diagnosis Seropositive rheumatoid arthritis (HCC)- Primary Rheumatoid arthritis [facility] Diagnosis Seropositive rheumatoid arthritis (HCC) Rheumatoid arthritis documented in this encounter [facility] Diagnosis Seropositive rheumatoid arthritis (HCC)- [...] of other medications documented in this encounter [facility] Diagnosis Seropositive rheumatoid arthritis (HCC)- Primary Rheumatoid arthritis Vitamin D deficiency Unspecified vitamin D deficiency documented in this encounter [facility] note* Diagnosis Vitamin D deficiency Unspecified vitamin D deficiency documented in this encounter [facility] note* Diagnosis Seropositive rheumatoid arthritis (HCC)- Primary Rheumatoid arthritis documented in this encounter [facility] note* Diagnosis Seropositive rheumatoid arthritis (HCC)- Primary Rheumatoid arthritis Vitamin D deficiency Unspecified vitamin D deficiency documented in this encounter [facility] note* Diagnosis Seropositive rheumatoid arthritis (HCC)- Primary Rheumatoid arthritis documented in this encounter [facility] note* Diagnosis Seropositive rheumatoid arthritis (HCC) Rheumatoid arthritis documented in this encounter [facility] note* Diagnosis Seropositive rheumatoid arthritis [...] Tobacco use disorder documented in this encounter [facility] note* Diagnosis Seropositive rheumatoid arthritis (HCC)- Primary Rheumatoid arthritis Vitamin D deficiency Unspecified vitamin D deficiency Synovitis Synovitis and tenosynovitis, unspecified documented in this encounter [facility] note* Diagnosis Smokes and motivated to quit- Primary Tobacco use disorder Seropositive rheumatoid arthritis (HCC) Rheumatoid arthritis documented in this encounter [facility] note* Diagnosis Seropositive rheumatoid arthritis (HCC)- Primary Rheumatoid arthritis [facility] Diagnosis Seropositive rheumatoid arthritis (HCC)- Primary Rheumatoid arthritis documented in this encounter [facility] note* Diagnosis Seropositive rheumatoid arthritis (HCC) Rheumatoid arthritis documented in this encounter [facility] note* Diagnosis Seropositive rheumatoid arthritis (HCC)- Primary Rheumatoid arthritis [facility] Diagnosis Seropositive rheumatoid arthritis (HCC)- [...] Other specified counseling documented in this encounter [facility] note* Diagnosis Seropositive rheumatoid arthritis (HCC)- Primary Rheumatoid arthritis [facility] this [facility] Diagnosis Seropositive rheumatoid arthritis (HCC)- Primary Rheumatoid arthritis [facility] Diagnosis Seropositive rheumatoid arthritis (HCC)- Primary Rheumatoid arthritis Localized superficial swelling, mass, or lump documented in this [facility] Diagnosis Seropositive rheumatoid arthritis (HCC)- Primary Rheumatoid arthritis Localized superficial swelling, mass, or lump Encounter for medication review and counseling Other specified counseling Synovitis Synovitis and tenosynovitis, unspecified Encounter to discuss test results Other specified counseling Medication monitoring encounter Encounter for therapeutic drug monitoring Smoker Tobacco use disorder documented [facility] this [facility] Diagnosis Seropositive rheumatoid arthritis (HCC)- Primary Rheumatoid arthritis Vitamin D deficiency Unspecified vitamin D deficiency documented [facility] Diagnosis Wheezing- Primary documented in this encounter [facility] Diagnosis Seropositive rheumatoid arthritis (HCC)- Primary Rheumatoid arthritis Synovitis Synovitis and tenosynovitis, unspecified Vitamin D deficiency Unspecified vitamin D deficiency Localized superficial swelling, mass, or lump Encounter to discuss test results Other specified counseling Encounter for medication review and counseling Other specified counseling Medication monitoring encounter Encounter for therapeutic drug monitoring [facility] Diagnosis Seropositive rheumatoid arthritis (HCC) Rheumatoid arthritis documented in this encounter [facility] note* Diagnosis ADHD (attention deficit hyperactivity disorder), combined type ([facility])- Primary Attention deficit disorder with hyperactivity Anxiety Anxiety state, unspecified Anxiety- Primary Anxiety state, unspecified Tobacco user Tobacco use disorder BMI 29.0-29.9,adult Adult ADHD (attention deficit hyperactivity disorder) ([facility]) Mild depression ([facility]) Depressive disorder, not elsewhere classified Adult ADHD (attention deficit hyperactivity disorder) ([facility])- Primary Tobacco user Tobacco use disorder Anxiety Anxiety state, unspecified Adult ADHD (attention deficit hyperactivity disorder) ([facility]/HCC)- Primary Neutropenia, unspecified ([facility]) Neutropenia, unspecified Tobacco user Tobacco use disorder BMI 29.0-29.9,adult Rheumatoid arthritis, involving unspecified site, unspecified whether rheumatoid factor present ([facility]) Anxiety Anxiety state, unspecified Subacute maxillary sinusitis Wheezing Nausea Nausea alone Wheezing [facility] ADHD (attention deficit hyperactivity disorder), combined type ([facility])- Primary Attention deficit disorder with hyperactivity Anxiety Anxiety state, unspecified Anxiety- Primary Anxiety state, unspecified Tobacco user Tobacco use disorder BMI 29.0-29.9,adult Adult ADHD (attention deficit hyperactivity disorder) ([facility]/HCC) Mild depression ([facility]) Depressive disorder, not elsewhere classified Adult ADHD (attention deficit hyperactivity disorder) (CMS/HCC)- Primary Tobacco user Tobacco use disorder Anxiety Anxiety state, unspecified Adult ADHD (attention deficit hyperactivity disorder) (CMS/HCC)- Primary Neutropenia, unspecified ([facility]) Neutropenia, unspecified Tobacco user Tobacco use disorder BMI 29.0-29.9,adult Rheumatoid arthritis, involving unspecified site, unspecified whether rheumatoid factor present ([facility]) Anxiety Anxiety state, unspecified Subacute maxillary sinusitis Wheezing Nausea Nausea alone ADHD (attention deficit hyperactivity disorder), combined type ([facility])- Primary Attention deficit disorder with hyperactivity Opioid abuse, uncomplicated ([facility]) Tobacco user Tobacco use disorder Rheumatoid arthritis, involving unspecified site, unspecified whether rheumatoid factor present ([facility]) Neutropenia, unspecified type ([facility]) Mild depression ([facility]) Depressive disorder, not elsewhere classified Anxiety Anxiety state, unspecified BMI 29.0-29.9,adult [facility] Diagnosis ADHD (attention deficit hyperactivity disorder), combined type ([facility]/HCC)- Primary Attention deficit disorder with hyperactivity Anxiety Anxiety state, unspecified Anxiety- Primary Anxiety state, unspecified Tobacco user Tobacco use disorder BMI 29.0-29.9,adult Adult ADHD (attention deficit hyperactivity disorder) ([facility]) Mild depression ([facility]) Depressive disorder, not elsewhere classified Adult ADHD (attention deficit hyperactivity disorder) (CMS/HCC)- Primary Tobacco user Tobacco use disorder Anxiety Anxiety state, unspecified Adult ADHD (attention deficit hyperactivity disorder) (CMS/HCC)- Primary Neutropenia, unspecified ([facility]) Neutropenia, unspecified Tobacco user Tobacco use disorder BMI 29.0-29.9,adult Rheumatoid arthritis, involving unspecified site, unspecified whether rheumatoid factor present ([facility]) Anxiety Anxiety state, unspecified Subacute maxillary sinusitis Wheezing Nausea Nausea alone ADHD (attention deficit hyperactivity disorder), combined type ([facility]/HCC)- Primary Attention deficit disorder with hyperactivity Opioid abuse, uncomplicated ([facility]) Tobacco user Tobacco use disorder Rheumatoid arthritis, involving unspecified site, unspecified whether rheumatoid factor present ([facility]) Neutropenia, unspecified type ([facility]) Mild depression ([facility]) Depressive disorder, not elsewhere classified Anxiety Anxiety state, unspecified BMI 29.0-29.9,adult Wheezing documented in this encounter [facility]* Diagnosis Adult ADHD (attention deficit hyperactivity disorder) ([facility])- Primary Neutropenia, unspecified ([facility]) Neutropenia, unspecified Tobacco user Tobacco use disorder BMI 29.0-29.9,adult Rheumatoid arthritis, involving unspecified site, unspecified whether rheumatoid factor present ([facility]) Anxiety Anxiety state, unspecified Subacute maxillary sinusitis Wheezing Nausea Nausea alone documented in this encounter [facility]* Diagnosis ADHD (attention deficit hyperactivity disorder), combined type ([facility])- Primary Attention deficit disorder with hyperactivity Anxiety Anxiety state, unspecified Anxiety- Primary Anxiety state, unspecified Tobacco user Tobacco use disorder BMI 29.0-29.9,adult Adult ADHD (attention deficit hyperactivity disorder) ([facility]) Mild depression ([facility]) Depressive disorder, not elsewhere classified Adult ADHD (attention deficit hyperactivity disorder) ([facility])- Primary Tobacco user Tobacco use disorder Anxiety Anxiety state, unspecified Adult ADHD (attention deficit hyperactivity disorder) ([facility])- Primary Neutropenia, unspecified ([facility]) Neutropenia, unspecified Tobacco user Tobacco use disorder BMI 29.0-29.9,adult Rheumatoid arthritis, involving unspecified site, unspecified whether rheumatoid factor present ([facility]) Anxiety Anxiety state, unspecified Subacute maxillary sinusitis Wheezing Nausea Nausea alone ADHD (attention deficit hyperactivity disorder), combined type ([facility])- Primary Attention deficit disorder with hyperactivity Opioid abuse, uncomplicated ([facility]) Tobacco user Tobacco use disorder Rheumatoid arthritis, involving unspecified site, unspecified whether rheumatoid factor present ([facility]) Neutropenia, unspecified type ([facility]) Mild depression ([facility]) Depressive disorder, not elsewhere classified Anxiety Anxiety state, unspecified BMI 29.0-29.9,adult Well woman exam with routine gynecological exam- Primary Routine gynecological examination Rheumatoid arthritis, unspecified ([facility]) Opioid abuse, uncomplicated ([facility]) Tobacco user Tobacco use disorder Screening mammogram for breast cancer documented in this encounter [facility]* Diagnosis Seropositive rheumatoid arthritis (HCC)- Primary Rheumatoid arthritis [facility] Diagnosis Seropositive rheumatoid arthritis (HCC)- Primary Rheumatoid arthritis Medication monitoring encounter Encounter for therapeutic drug monitoring documented in this encounter [facility] Diagnosis Seropositive rheumatoid arthritis (HCC)- Primary Rheumatoid arthritis documented in this encounter [facility] Diagnosis ADHD (attention deficit hyperactivity disorder), combined type (CMS/HCC)- Primary Attention deficit disorder with hyperactivity Anxiety Anxiety state, unspecified Anxiety- Primary Anxiety state, unspecified Tobacco user Tobacco use disorder BMI 29.0-29.9,adult Adult ADHD (attention deficit hyperactivity disorder) (CMS/HCC) Mild depression (CMS/HCC) Depressive disorder, not elsewhere classified Adult ADHD (attention deficit hyperactivity disorder) (CMS/HCC)- Primary Tobacco user Tobacco use disorder Anxiety Anxiety state, unspecified Adult ADHD (attention deficit hyperactivity disorder) (CMS/HCC)- Primary Neutropenia, unspecified (CMS/HCC) Neutropenia, unspecified Tobacco user Tobacco use disorder BMI 29.0-29.9,adult Rheumatoid arthritis, involving unspecified site, unspecified whether rheumatoid factor present ([facility]) Anxiety Anxiety state, unspecified Subacute maxillary sinusitis Wheezing Nausea Nausea alone ADHD (attention deficit hyperactivity disorder), combined type (CMS/HCC)- Primary Attention deficit disorder with hyperactivity Opioid abuse, uncomplicated (CMS/HCC) Tobacco user Tobacco use disorder Rheumatoid arthritis, involving unspecified site, unspecified whether rheumatoid factor present ([facility]) Neutropenia, unspecified type (CMS/HCC) Mild depression (CMS/HCC) Depressive disorder, not elsewhere classified Anxiety Anxiety state, unspecified BMI 29.0-29.9,adult Well woman exam with routine gynecological exam- Primary Routine gynecological examination Rheumatoid arthritis, unspecified ([facility]) Opioid abuse, uncomplicated ([facility]) Tobacco user Tobacco use disorder Screening mammogram for breast cancer Wheezing documented in this encounter [facility]* Diagnosis ADHD (attention deficit hyperactivity disorder), combined type (CMS/HCC)- Primary Attention deficit disorder with hyperactivity Anxiety Anxiety state, unspecified Anxiety- Primary Anxiety state, unspecified Tobacco user Tobacco use disorder BMI 29.0-29.9,adult Adult ADHD (attention deficit hyperactivity disorder) (CMS/HCC) Mild depression (CMS/HCC) Depressive disorder, not elsewhere classified Adult ADHD (attention deficit hyperactivity disorder) (CMS/HCC)- Primary Tobacco user Tobacco use disorder Anxiety Anxiety state, unspecified Adult ADHD (attention deficit hyperactivity disorder) (CMS/HCC)- Primary Neutropenia, unspecified (CMS/HCC) Neutropenia, unspecified Tobacco user Tobacco use disorder BMI 29.0-29.9,adult Rheumatoid arthritis, involving unspecified site, unspecified whether rheumatoid factor present ([facility]) Anxiety Anxiety state, unspecified Subacute maxillary sinusitis Wheezing Nausea Nausea alone ADHD (attention deficit hyperactivity disorder), combined type (CMS/HCC)- Primary Attention deficit disorder with hyperactivity Opioid abuse, uncomplicated ([facility]) Tobacco user Tobacco use disorder Rheumatoid arthritis, involving unspecified site, unspecified whether rheumatoid factor present ([facility]) Neutropenia, unspecified type ([facility]) Mild depression ([facility]) Depressive disorder, not elsewhere classified Anxiety Anxiety state, unspecified BMI 29.0-29.9,adult Well woman exam with routine gynecological exam- Primary Routine gynecological examination Rheumatoid arthritis, unspecified ([facility]) Opioid abuse, uncomplicated ([facility]) Tobacco user Tobacco use disorder Screening mammogram for breast cancer ADHD (attention deficit hyperactivity disorder), combined type ([facility])- Primary Attention deficit disorder with hyperactivity Neutropenia, unspecified type ([facility]) Opioid abuse, uncomplicated ([facility]) Cigarette nicotine dependence without complication Anxiety Anxiety state, unspecified Wheezing Nausea Nausea alone documented in this encounter [facility] ([facility] Diagnostic Procedure Only (Routine) - Authorized Specialty Diagnoses / Procedures Referred By Contac t Referred To Contact XR IMAGING Diagnoses Seropositive rheumatoid arthritis (HCC) Procedures XR FOOT GENERAL 3V AP/LAT/OBL BILATERAL RADEX FOOT COMPLETE MINIMUM 3 VIEWS Fariba [place] APRN.LINE ANALYST [address] [place] [address] Xr Imaging Referral ID Status Reason Start Date Expiration Date Visits Requested Visits Authorized [id number] Authorized Auto-Generat ed Referral 02/24/2022 03/26/2023 1 1 [facility] for referral (narrative)* Diagnostic Procedure Only (Routine) - Pending Review Specialty Diagnoses / Procedures Referred By Contac t Referred To Contact XR IMAGING Diagnoses Seropositive rheumatoid arthritis (HCC) Procedures XR FOOT GENERAL 3V AP/LAT/OBL BILATERAL RADEX FOOT COMPLETE MINIMUM 3 VIEWS Fariba Hill APRN.LINE ANALYST [address] [facility] [place] [address] Xr Imaging Referral ID Status Reason Start Date Expiration Date Visits Requested Visits Authorized [id number] Pending Review Auto-Generat ed Referral 02/28/2022 03/30/2023 1 1 [facility] for referral (narrative)* Diagnostic Procedure Only (Routine) - Pending Review Specialty Diagnoses / Procedures Referred By Contac t Referred To Contact XR IMAGING Diagnoses Seropositive rheumatoid arthritis (HCC) Procedures XR FOOT GENERAL 3V AP/LAT/OBL BILATERAL RADEX FOOT COMPLETE MINIMUM 3 VIEWS Fariba Hill APRN.LINE ANALYST [address] [place] [address] [place] [address] Referral ID Status Reason Start Date Expiration Date Visits Requested Visits Authorized [id number] Pending Review Auto-Generat ed Referral 10/22/2022 11/21/2023 1 1 [facility] for referral (narrative)* Diagnostic Procedure Only (Routine) - Pending Review Specialty Diagnoses / Procedures Referred By Contac t Referred To Contact US IMAGING Diagnoses Seropositive rheumatoid arthritis (HCC) Localized superficial swelling, mass, or lump Procedures US EXTREMITY MASS/FLUID COLLECTION LEFT [place] APRN.LINE ANALYST [address] [place] [address] [place] [address] Referral ID Status Reason Start Date Expiration Date Visits Requested Visits Authorized [id number] Pending Review Auto-Generat ed Referral 04/28/2023 05/27/2024 1 1 [facility] for visit Narrative* Diagnostic Procedure Only (Routine) - Closed Specialty Diagnoses / Procedures Referred By Contac t Referred To Contact XR IMAGING Diagnoses Seropositive rheumatoid arthritis (HCC) Procedures XR FOOT GENERAL 3V AP/LAT/OBL BILATERAL RADEX FOOT COMPLETE MINIMUM 3 VIEWS Fariba Hill APRN.LINE ANALYST [address] [place] [address] [place] [address] Referral ID Status Reason Start Date Expiration Date V isits Requested Visits Authorized [id number] Closed Auto-Generate d Referral 04/14/2022 02/21/2023 1 1 [facility] Discharge Instructions * Instructions* Loida Caro PA-C [...] be sent through Care Everywhere. * Candidiasis (Mongolian) * Miscarriage: Threatened (Mongolian) documented in this encounter* Instructions* Loida Caro PA-C - 01/28/2019 Use ice rest keep wrist in splint. Follow-up with orthopedic provider listed below for further evaluation of continued pain. * Attachments The following attachments cannot be sent through Care Everywhere. * Carpal Tunnel Syndrome (Mongolian) documented in this encounter* Instructions* Tami Payne RN - 05/02/2019 Outpatient Instructions for IM or Subcutaneous Injections [address] [place] [address] You are advised to carry out the [...] Outpatient Instructions for IM or Subcutaneous Injections [address] [place] [address] You are advised to carry out the [...] Follow-up with your OB doctor as specified. [facility] OB Department phone: Dr. Kera Pardo [facility] Dr. Mendy Viera [address] or [place] DIET Eat a well balanced diet focusing on foods high in fiber and protein. Drink plenty of fluids especially water. To avoid constipation you may take a mild stool softener as recommended by your doctor or volunteer manager. ACTIVITY Gradually increase your activity. Resume exercise regimen only after advice by your doctor or volunteer manager. Avoid lifting anything heavier than a gallon of milk for SIX weeks. Avoid driving until your doctor or volunteer manager has given their approval. Rise slowly from [...] of harming yourself or your infant. If infant will not stop crying, contact another adult [...] medications as recommended by your doctor or volunteer manager for pain If you develop a warm, [...] vitamins as directed by your doctor or volunteer manager. Refer to the booklet in the folder/binder for more information. If you feel you need more assistance or have questions, please call Sarah Wang IBCLC, toy consultant, at or the OB department to [...] through Care Everywhere. 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 Advance Directives and Living Will Power of Mineral Surveyor Latest Code Status on File Code Status Date Activated Date Inactivated Comments Full Code 07/12/2019 1:54 PM Full Code 07/11/2019 8:21 PM 07/12/2019 1:54 PM Full Code 07/11/2019 7:48 PM 07/11/2019 7:51 PM Documents on File Type Date Recorded 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 ACP-Advance Directive ACP-Power of Mineral Surveyor Latest Code Status on File Code Status Date Activated Date Inactivated Comments Full Code 07/12/2019 1:54 PM 07/13/2019 3:24 PM Reason for Referral Status Reason Specialty Diagnoses / Procedures Re ferred By Contact Referred To Contact Open Radiology Diagnoses Superficial thrombophlebitis of left upper extremity Procedures VL DUP UPPER EXTREMITY VENOUS LEFT Mk Mayo MD [facility] [place] [address] Status Reason Specialty Diagnoses / Procedures Referre d By Contact Referred To Contact Open Radiology Diagnoses Right upper quadrant abdominal pain Procedures US Gallbladder Tosha Mcginnis, OIL WELL CABLE TOOL DRILLER - [facility] [address] [facility] [address] [place] [address] Specialty Diagnoses / Procedures Referred By Contac t Referred To Contact Podiatry Diagnoses Pain in left foot Procedures CONSULT TO PODIATRY OFFICE/OUTPATIENT [facility] 60-74 MINUTES Fariba Hill, OIL WELL CABLE TOOL DRILLER.LINE ANALYST [address] [place] [address] Referral ID Status Reason Start Date Expiration Date Visits Requested Visits Authorized [id number] Pending Review PCP Requested Referral 2 01/05/2023 1 1 Specialty Diagnoses / Procedures Referred By Contac t Referred To Contact Orthopedics Diagnoses Pain in right foot Procedures CONSULT TO ORTHOPAEDICS OFFICE/OUTPATIENT [facility] 60-74 MINUTES Fariba Hill, OIL WELL CABLE TOOL DRILLER.LINE ANALYST [address] [place] [address] Referral ID Status Reason Start Date Expiration Date Visits Requested Visits Authorized [id number] Pending Review PCP Requested Referral 3 01/20/2024 1 1 Specialty Diagnoses / Procedures Referred By Contac t Referred To Contact Dermatology Diagnoses Localized superficial swelling, mass, or lump Seropositive rheumatoid arthritis (HCC) Procedures CONSULT TO DERMATOLOGY OFFICE/OUTPATIENT [facility] 60 MINUTES Fariba Hill, OIL WELL CABLE TOOL DRILLER.LINE ANALYST [address] [place] [address] Referral ID Status Reason Start Date Expiration Date Visits Requested Visits Authorized [id number] Authorized PCP Requested Referral 04/28/2023 04/27/2024 1 1 Specialty Diagnoses / Procedures Referred By Contac t Referred To Contact US IMAGING Diagnoses Localized superficial swelling, mass, or lump Seropositive rheumatoid arthritis (HCC) Procedures US ELBOW LEFT US LMTD JOINT/OTH NONVASC XTR STRUX R-T W/IMG Fariba Hill, OIL WELL CABLE TOOL DRILLER.LINE ANALYST [address] [place] [address] [place] [address] Referral ID Status Reason Start Date Expiration Date Visits Requested Visits Authorized [id number] Pending Review Auto-Generat ed Referral 04/28/2023 05/27/2024 1 1 Specialty Diagnoses / Procedures Referred By Contac t Referred To Contact Diagnoses Adult ADHD (attention deficit hyperactivity disorder) ([facility]/HCC) Niya Santiago, MARY [address] [place] [address] Referral ID Status Reason Start Date Expiration Date V isits Requested Visits Authorized [id number] Pending Review 1 1 Referral ID Status Reason Start Date Expiration Date V isits Requested Visits Authorized [id number] Pending Review 1 1 Referral ID Status Reason Start Date Expiration Date V isits Requested Visits Authorized [id number] Pending Review 1 1 History of Present Illness * Any Palencia RN - 07/13/2019 12:10 PM EDT [facility] discharge instructions explained to pt, pt v.u. [...] to pt, pt v.u. * Tosha Viera, OIL WELL CABLE TOOL DRILLER - [facility] - 07/13/2019 8:26 AM EDT [...] 82/52 75 07/12/19 1031 (!) 89/53 60 07/12/19 1028 (!) 88/54 91 14 05 1013 102/62 64 05/ 1000 119/73 64 05/20 0951 117/73 68 16 98 % 05/20/20 0946 98 % 05/20/20 0943 121/73 63 16 05//20 0941 98 % 05/ 0936 98 % 0520 0931 98 % 05/20 0928 118/81 61 16 05 0915 97.5 F (36.4 C) Axillary 07/12/19 0912 118/82 72 05 0906 117/72 67 98 % 07/12/19 0901 97 % 07/12/19 0900 (!) 105/59 63 07/12/19 0856 97 % 07/12/19 0855 124/69 69 07/12/19 0853 130/84 86 07/12/19 0851 127/76 72 07/12/19 0849 133/87 90 07/12/19 0846 132/84 81 05 0844 130/82 77 05 0843 97 % 05 0842 129/83 76 0520 0840 139/88 78 05 0838 (!) 140/87 75 96 % 07/12/19 0836 (!) 149/90 81 07/12/19 0834 134/85 75 05 0833 97 % ABDOMEN: normal shape, position [...] RN calls Tayla GARCIA with SVE update. [facility] states to leave pitocin off. * Prema Bhat RN - 07/12/2019 9:40 AM EDT Tosha called and notified that pt had spontaneous 5 minute decel down to 65bpm. Pt flipped to both sides, IV bolus given and pit turned off. Tosha pulls strip up in office and views it while poem writer talking. Updated that pt 3 cm, was checked during decel. Primary nurse currently placing luc. Margy to wait 1/2 hour then call her [...] 25 mg, ORAL, ONCE, 1 dose, On Wed09/17/22 at 0930 Given 09/17/2022 9:40 AM EDT 25 mg inFLIXimab-axxq 500 mg in NaCl 0.9% 250 mL (AVSOLA) 500 mg, INTRAVENOUS, at 83.33-250 mL/hr, Administer over 1-3 Hours, ONCE, 1 dose, On Wed09/17/22 at 0930, TOTAL VOLUME - Expires: 09/25/22 [...] AVSOLA, 10 MG Juan Daniel Leos MD [address] [place] [address] Rheu Infusion [facility] [address] [facility] [address] Referral ID Status Reason Start Date Expiration Date V isits Requested Visits Authorized [id number] Authorized 07/01/2021 09/01/2023 99 99 Reason Comments renflexis infusion Specialty Diagnoses / Procedures Referred By Contac t Referred To Contact Diagnoses Seropositive rheumatoid arthritis (HCC) Procedures INJECTION, RENFLEXIS Juan Daniel Leos MD [address] [place] [address] [facility] [address] [place] [address] Referral ID Status Reason Start Date Expiration Date V isits Requested Visits Authorized [id number] Authorized 07/01/2021 08/22/2022 9 9 Referral ID Status Reason Start Date Expiration Date V isits Requested Visits Authorized [id number] Authorized 07/01/2021 01/18/2022 5 5 Reason Comments [...] Contact Diagnoses Term Tosha Viera APRN - JOSE [address] [place] [address] [facility] Reason Comments Covid Testing Pt states positive e xposure with loss of smell/taste and cough Otalgia Right Joint Pain Knees/feet r/t arthr itis Reason Comments Cough ongoing for a week Status Reason Specialty Diagnoses / Procedures Referre d By Contact Referred To Contact Open Radiology Diagnoses Right upper quadrant abdominal pain Procedures US Gallbladder Ruq Tosha Viera APRN - JOSE [address] [place] [address] Reason Comments Insurance Authorization Prior Auth Delay ed: Additional Info needed for Renflexis Reason Comments Appointment Specialty Diagnoses / Procedures Referred By Contac t Referred To Contact Diagnoses Seropositive rheumatoid arthritis (HCC) Procedures INJECTION, RENFLEXIS Juan Daniel Leos MD [address] [place] [address] [facility] [address] [place] [address] Reason Comments Follow Up Reason Comments Results [...] Expiration Date Visits Re quested Visits Authorized [id number] Closed 07/01/2021 09/01/2023 16 16 Specialty Diagnoses / Procedures [facility] Referred To Contact Diagnoses Seropositive rheumatoid arthritis (HCC) Procedures TOCILIZUMAB INJECTION tocilizumab 281.2 mg (ACTEMRA) Q28 days Fariba Hill, OIL WELL CABLE TOOL DRILLER.LINE ANALYST [address] [place] [address] [facility] [address] [place] [address] Referral ID Status Reason Start Date Expiration Date V isits Requested Visits Authorized [id number] Authorized 11/10/2022 11/20/2023 14 14 Reason Comments Lab Orders Specialty Diagnoses / Procedures [facility] Referred To Contact Diagnoses Seropositive rheumatoid arthritis (HCC) Procedures TOCILIZUMAB INJECTION tocilizumab 281.2 mg (ACTEMRA) Q28 days Fariba Hill, OIL WELL CABLE TOOL DRILLER.LINE ANALYST [address] [place] [address] [facility] [address] [place] [address] Reason Comments F/U 3 Month continues to have se giovanni pain in hands wrists and Rt foot x 2-3 wks Referral ID Status Reason Start Date Expiration Date Visits Requested Visits Authorized [id number] Authorized Clearance Not Met - Pt Rescheduled/ Cancelled/Ch ose Not to Proceed 11/10/2022 01/20/2024 99 99 Reason Comments No Show To f/u apt Reason Comments Wheezing Cough with wheezing, 2 weeks Reason Comments Med Refill Reason Comments ADHD Reason Comments Gynecologic Exam Reason Onset Date Comments SPP Inflammatory Conditions - Treatment Referral 03/31/2024 [employer] Insurance Authorization 03/31/2024 [place] Submi ssion Pending Reason Comments Consult Dx ra. Pain Ongoing bi-lateral h and pain. Reason Comments Patient Request Ordered Prescriptions (unrec ognized section and content) [...] or prosecute any alcohol or drug abuse patient.[facility] the event this information is protected by the Federal Confidentiality of Alcohol and Drug Abuse Patient Records regulations: The Federal rules restrict any use of the information to criminally investigate or prosecute any alcohol or drug abuse patient.[facility] the event this information is protected by the Federal Confidentiality of Alcohol and Drug Abuse Patient Records regulations: The Federal rules restrict any use of the information to criminally investigate or prosecute any alcohol or drug abuse patient.[facility] the event this information is protected by the Federal Confidentiality of Alcohol and Drug Abuse Patient Records regulations: The Federal rules restrict any use of the information to criminally investigate or prosecute any alcohol or drug abuse patient.[facility] the event this information is protected by the Federal Confidentiality of Alcohol and Drug Abuse Patient Records regulations: The Federal rules restrict any use of the information to criminally investigate or prosecute any alcohol or drug abuse patient.[facility] the event this information is protected by the Federal Confidentiality of Alcohol and Drug Abuse Patient Records regulations: The Federal rules restrict any use of the information to criminally investigate or prosecute any alcohol or drug abuse patient.[facility] the event this information is protected by the Federal Confidentiality of Alcohol and Drug Abuse Patient Records regulations: The Federal rules restrict any use of the information to criminally investigate or prosecute any alcohol or drug abuse patient.[facility] the event this information is protected by the Federal Confidentiality of Alcohol and Drug Abuse Patient Records regulations: The Federal rules restrict any use of the information to criminally investigate or prosecute any alcohol or drug abuse patient.[facility] the event this information is protected by the Federal Confidentiality of Alcohol and Drug Abuse Patient Records regulations: The Federal rules restrict any use of the information to criminally investigate or prosecute any alcohol or drug abuse patient.[facility] the event this information is protected by the Federal Confidentiality of Alcohol and Drug Abuse Patient Records regulations: The Federal rules restrict any use of the information to criminally investigate or prosecute any alcohol or drug abuse patient.[facility] the event this information is protected by the Federal Confidentiality of Alcohol and Drug Abuse Patient Records regulations: The Federal rules restrict any use of the information to criminally investigate or prosecute any alcohol or drug abuse patient.[facility]In the event this information is protected by the Federal Confidentiality of Alcohol and Drug Abuse Patient Records regulations: The Federal rules restrict any use of the information to criminally investigate or prosecute any alcohol or drug abuse patient.[facility]In the event this information is protected by the Federal Confidentiality of Alcohol and Drug Abuse Patient Records regulations: The Federal rules restrict any use of the information to criminally investigate or prosecute any alcohol or drug abuse patient.[facility]In the event this information is protected by the Federal Confidentiality of Alcohol and Drug Abuse Patient Records regulations: The Federal rules restrict any use of the information to criminally investigate or prosecute any alcohol or drug abuse patient.[facility] the event this information is protected by the Federal Confidentiality of Alcohol and Drug Abuse Patient Records regulations: The Federal rules restrict any use of the information to criminally investigate or prosecute any alcohol or drug abuse patient.[facility]In the event this information is protected by the Federal Confidentiality of Alcohol and Drug Abuse Patient Records regulations: The Federal rules restrict any use of the information to criminally investigate or prosecute any alcohol or drug abuse patient.[facility]In the event this information is protected by the Federal Confidentiality of Alcohol and Drug Abuse Patient Records regulations: The Federal rules restrict any use of the information to criminally investigate or prosecute any alcohol or drug abuse patient.[facility]In the event this information is protected by the Federal Confidentiality of Alcohol and Drug Abuse Patient Records regulations: The Federal rules restrict any use of the information to criminally investigate or prosecute any alcohol or drug abuse patient.[facility]In the event this information is protected by the Federal Confidentiality of Alcohol and Drug Abuse Patient Records regulations: The Federal rules restrict any use of the information to criminally investigate or prosecute any alcohol or drug abuse patient.[facility]In the event this information is protected by the Federal Confidentiality of Alcohol and Drug Abuse Patient Records regulations: The Federal rules restrict any use of the information to criminally investigate or prosecute any alcohol or drug abuse patient.[facility]In the event this information is protected by the Federal Confidentiality of Alcohol and Drug Abuse Patient Records regulations: The Federal rules restrict any use of the information to criminally investigate or prosecute any alcohol or drug abuse patient.[facility]In the event this information is protected by the Federal Confidentiality of Alcohol and Drug Abuse Patient Records regulations: The Federal rules restrict any use of the information to criminally investigate or prosecute any alcohol or drug abuse patient.[facility]In the event this information is protected by the Federal Confidentiality of Alcohol and Drug Abuse Patient Records regulations: The Federal rules restrict any use of the information to criminally investigate or prosecute any alcohol or drug abuse patient.[facility]In the event this information is protected by the Federal Confidentiality of Alcohol and Drug Abuse Patient Records regulations: The Federal rules restrict any use of the information to criminally investigate or prosecute any alcohol or drug abuse patient.[facility]In the event this information is protected by the Federal Confidentiality of Alcohol and Drug Abuse Patient Records regulations: The Federal rules restrict any use of the information to criminally investigate or prosecute any alcohol or drug abuse patient.[facility]In the event this information is protected by the Federal Confidentiality of Alcohol and Drug Abuse Patient Records regulations: The Federal rules restrict any use of the information to criminally investigate or prosecute any alcohol or drug abuse patient.[facility]In the event this information is protected by the Federal Confidentiality of Alcohol and Drug Abuse Patient Records regulations: The Federal rules restrict any use of the information to criminally investigate or prosecute any alcohol or drug abuse patient.[facility] HospitalIn the event this information is protected by the Federal Confidentiality of Alcohol and Drug Abuse Patient Records regulations: The Federal rules restrict any use of the information to criminally investigate or prosecute any alcohol or drug abuse patient.[facility]In the event this information is protected by the Federal Confidentiality of Alcohol and Drug Abuse Patient Records regulations: The Federal rules restrict any use of the information to criminally investigate or prosecute any alcohol or drug abuse patient.[facility]In the event this information is protected by the Federal Confidentiality of Alcohol and Drug Abuse Patient Records regulations: The Federal rules restrict any use of the information to criminally investigate or prosecute any alcohol or drug abuse patient.[facility]In the event this information is protected by the Federal Confidentiality of Alcohol and Drug Abuse Patient Records regulations: The Federal rules restrict any use of the information to criminally investigate or prosecute any alcohol or drug abuse patient.[facility]In the event this information is protected by the Federal Confidentiality of Alcohol and Drug Abuse Patient Records regulations: The Federal rules restrict any use of the information to criminally investigate or prosecute any alcohol or drug abuse patient.[facility]In the event this information is protected by the Federal Confidentiality of Alcohol and Drug Abuse Patient Records regulations: The Federal rules restrict any use of the information to criminally investigate or prosecute any alcohol or drug abuse patient.[facility]In the event this information is protected by the Federal Confidentiality of Alcohol and Drug Abuse Patient Records regulations: The Federal rules restrict any use of the information to criminally investigate or prosecute any alcohol or drug abuse patient.[facility]In the event this information is protected by the Federal Confidentiality of Alcohol and Drug Abuse Patient Records regulations: The Federal rules restrict any use of the information to criminally investigate or prosecute any alcohol or drug abuse patient.[facility]In the event this information is protected by the Federal Confidentiality of Alcohol and Drug Abuse Patient Records regulations: The Federal rules restrict any use of the information to criminally investigate or prosecute any alcohol or drug abuse patient.[facility]In the event this information is protected by the Federal Confidentiality of Alcohol and Drug Abuse Patient Records regulations: The Federal rules restrict any use of the information to criminally investigate or prosecute any alcohol or drug abuse patient.[facility]In the event this information is protected by the Federal Confidentiality of Alcohol and Drug Abuse Patient Records regulations: The Federal rules restrict any use of the information to criminally investigate or prosecute any alcohol or drug abuse patient.[facility] [facility] HospitalIn the event this information is protected by the Federal Confidentiality of Alcohol and Drug Abuse Patient Records regulations: The Federal rules restrict any use of the information to criminally investigate or prosecute any alcohol or drug abuse patient.[facility] HospitalIn the event this information is protected by the Federal Confidentiality of Alcohol and Drug Abuse Patient Records regulations: The Federal rules restrict any use of the information to criminally investigate or prosecute any alcohol or drug abuse patient.[facility]In the event this information is protected by the Federal Confidentiality of Alcohol and Drug Abuse Patient Records regulations: The Federal rules restrict any use of the information to criminally investigate or prosecute any alcohol or drug abuse patient.[facility]In the event this information is protected by the Federal Confidentiality of Alcohol and Drug Abuse Patient Records regulations: The Federal rules restrict any use of the information to criminally investigate or prosecute any alcohol or drug abuse patient.[facility]In the event this information is protected by the Federal Confidentiality of Alcohol and Drug Abuse Patient Records regulations: The Federal rules restrict any use of the information to criminally investigate or prosecute any alcohol or drug abuse patient.[facility]In the event this information is protected by the Federal Confidentiality of Alcohol and Drug Abuse Patient Records regulations: The Federal rules restrict any use of the information to criminally investigate or prosecute any alcohol or drug abuse patient.[facility]In the event this information is protected by the Federal Confidentiality of Alcohol and Drug Abuse Patient Records regulations: The Federal rules restrict any use of the information to criminally investigate or prosecute any alcohol or drug abuse patient.[facility] HospitalIn the event this information is protected by the Federal Confidentiality of Alcohol and Drug Abuse Patient Records regulations: The Federal rules restrict any use of the information to criminally investigate or prosecute any alcohol or drug abuse patient.[facility]In the event this information is protected by the Federal Confidentiality of Alcohol and Drug Abuse Patient Records regulations: The Federal rules restrict any use of the information to criminally investigate or prosecute any alcohol or drug abuse patient.[facility]In the event this information is protected by the Federal Confidentiality of Alcohol and Drug Abuse Patient Records regulations: The Federal rules restrict any use of the information to criminally investigate or prosecute any alcohol or drug abuse patient.[facility]In the event this information is protected by the Federal Confidentiality of Alcohol and Drug Abuse Patient Records regulations: The Federal rules restrict any use of the information to criminally investigate or prosecute any alcohol or drug abuse patient.[facility]In the event this information is protected by the Federal Confidentiality of Alcohol and Drug Abuse Patient Records regulations: The Federal rules restrict any use of the information to criminally investigate or prosecute any alcohol or drug abuse patient.[facility] HospitalIn the event this information is protected by the Federal Confidentiality of Alcohol and Drug Abuse Patient Records regulations: The Federal rules restrict any use of the information to criminally investigate or prosecute any alcohol or drug abuse patient.[facility]In the event this information is protected by the Federal Confidentiality of Alcohol and Drug Abuse Patient Records regulations: The Federal rules restrict any use of the information to criminally investigate or prosecute any alcohol or drug abuse patient.[facility] HospitalIn the event this information is protected by the Federal Confidentiality of Alcohol and Drug Abuse Patient Records regulations: The Federal rules restrict any use of the information to criminally investigate or prosecute any alcohol or drug abuse patient.[facility]In the event this information is protected by the Federal Confidentiality of Alcohol and Drug Abuse Patient Records regulations: The Federal rules restrict any use of the information to criminally investigate or prosecute any alcohol or drug abuse patient.[facility]In the event this information is protected by the Federal Confidentiality of Alcohol and Drug Abuse Patient Records regulations: The Federal rules restrict any use of the information to criminally investigate or prosecute any alcohol or drug abuse patient.[facility]In the event this information is protected by the Federal Confidentiality of Alcohol and Drug Abuse Patient Records regulations: The Federal rules restrict any use of the information to criminally investigate or prosecute any alcohol or drug abuse patient.[facility] HospitalIn the event this information is protected by the Federal Confidentiality of Alcohol and Drug Abuse Patient Records regulations: The Federal rules restrict any use of the information to criminally investigate or prosecute any alcohol or drug abuse patient.[facility]In the event this information is protected by the Federal Confidentiality of Alcohol and Drug Abuse Patient Records regulations: The Federal rules restrict any use of the information to criminally investigate or prosecute any alcohol or drug abuse patient.[facility] HospitalIn the event this information is protected by the Federal Confidentiality of Alcohol and Drug Abuse Patient Records regulations: The Federal rules restrict any use of the information to criminally investigate or prosecute any alcohol or drug abuse patient.[facility] HospitalIn the event this information is protected by the Federal Confidentiality of Alcohol and Drug Abuse Patient Records regulations: The Federal rules restrict any use of the information to criminally investigate or prosecute any alcohol or drug abuse patient.[facility] HospitalIn the event this information is protected by the Federal Confidentiality of Alcohol and Drug Abuse Patient Records regulations: The Federal rules restrict any use of the information to criminally investigate or prosecute any alcohol or drug abuse patient.[facility] HospitalIn the event this information is protected by the Federal Confidentiality of Alcohol and Drug Abuse Patient Records regulations: The Federal rules restrict any use of the information to criminally investigate or prosecute any alcohol or drug abuse patient.[facility] HospitalIn the event this information is protected by the Federal Confidentiality of Alcohol and Drug Abuse Patient Records regulations: The Federal rules restrict any use of the information to criminally investigate or prosecute any alcohol or drug abuse patient.[facility] HospitalIn the event this information is protected by the Federal Confidentiality of Alcohol and Drug Abuse Patient Records regulations: The Federal rules restrict any use of the information to criminally investigate or prosecute any alcohol or drug abuse patient.[facility] HospitalIn the event this information is protected by the Federal Confidentiality of Alcohol and Drug Abuse Patient Records regulations: The Federal rules restrict any use of the information to criminally investigate or prosecute any alcohol or drug abuse patient.[facility]In the event this information is protected by the Federal Confidentiality of Alcohol and Drug Abuse Patient Records regulations: The Federal rules restrict any use of the information to criminally investigate or prosecute any alcohol or drug abuse patient.[facility]In the event this information is protected by the Federal Confidentiality of Alcohol and Drug Abuse Patient Records regulations: The Federal rules restrict any use of the information to criminally investigate or prosecute any alcohol or drug abuse patient.[facility]In the event this information is protected by the Federal Confidentiality of Alcohol and Drug Abuse Patient Records regulations: The Federal rules restrict any use of the information to criminally investigate or prosecute any alcohol or drug abuse patient.[facility]In the event this information is protected by the Federal Confidentiality of Alcohol and Drug Abuse Patient Records regulations: The Federal rules restrict any use of the information to criminally investigate or prosecute any alcohol or drug abuse patient.[facility]In the event this information is protected by the Federal Confidentiality of Alcohol and Drug Abuse Patient Records regulations: The Federal rules restrict any use of the information to criminally investigate or prosecute any alcohol or drug abuse patient.[facility]In the event this information is protected by the Federal Confidentiality of Alcohol and Drug Abuse Patient Records regulations: The Federal rules restrict any use of the information to criminally investigate or prosecute any alcohol or drug abuse patient.[facility]In the event this information is protected by the Federal Confidentiality of Alcohol and Drug Abuse Patient Records regulations: The Federal rules restrict any use of the information to criminally investigate or prosecute any alcohol or drug abuse patient.[facility]In the event this information is protected by the Federal Confidentiality of Alcohol and Drug Abuse Patient Records regulations: The Federal rules restrict any use of the information to criminally investigate or prosecute any alcohol or drug abuse patient.[facility]In the event this information is protected by the Federal Confidentiality of Alcohol and Drug Abuse Patient Records regulations: The Federal rules restrict any use of the information to criminally investigate or prosecute any alcohol or drug abuse patient.[facility]In the event this information is protected by the Federal Confidentiality of Alcohol and Drug Abuse Patient Records regulations: The Federal rules restrict any use of the information to criminally investigate or prosecute any alcohol or drug abuse patient.[facility]In the event this information is protected by the Federal Confidentiality of Alcohol and Drug Abuse Patient Records regulations: The Federal rules restrict any use of the information to criminally investigate or prosecute any alcohol or drug abuse patient.[facility]In the event this information is protected by the Federal Confidentiality of Alcohol and Drug Abuse Patient Records regulations: The Federal rules restrict any use of the information to criminally investigate or prosecute any alcohol or drug abuse patient.[facility]In the event this information is protected by the Federal Confidentiality of Alcohol and Drug Abuse Patient Records regulations: The Federal rules restrict any use of the information to criminally investigate or prosecute any alcohol or drug abuse patient.[facility]In the event this information is protected by the Federal Confidentiality of Alcohol and Drug Abuse Patient Records regulations: The Federal rules restrict any use of the information to criminally investigate or prosecute any alcohol or drug abuse patient.[facility]In the event this information is protected by the Federal Confidentiality of Alcohol and Drug Abuse Patient Records regulations: The Federal rules restrict any use of the information to criminally investigate or prosecute any alcohol or drug abuse patient.[facility]In the event this information is protected by the Federal Confidentiality of Alcohol and Drug Abuse Patient Records regulations: The Federal rules restrict any use of the information to criminally investigate or prosecute any alcohol or drug abuse patient.[facility]In the event this information is protected by the Federal Confidentiality of Alcohol and Drug Abuse Patient Records regulations: The Federal rules restrict any use of the information to criminally investigate or prosecute any alcohol or drug abuse patient.[facility]In the event this information is protected by the Federal Confidentiality of Alcohol and Drug Abuse Patient Records regulations: The Federal rules restrict any use of the information to criminally investigate or prosecute any alcohol or drug abuse patient.[facility]In the event this information is protected by the Federal Confidentiality of Alcohol and Drug Abuse Patient Records regulations: The Federal rules restrict any use of the information to criminally investigate or prosecute any alcohol or drug abuse patient.[facility]In the event this information is protected by the Federal Confidentiality of Alcohol and Drug Abuse Patient Records regulations: The Federal rules restrict any use of the information to criminally investigate or prosecute any alcohol or drug abuse patient.[facility]In the event this information is protected by the Federal Confidentiality of Alcohol and Drug Abuse Patient Records regulations: The Federal rules restrict any use of the information to criminally investigate or prosecute any alcohol or drug abuse patient.[facility]In the event this information is protected by the Federal Confidentiality of Alcohol and Drug Abuse Patient Records regulations: The Federal rules restrict any use of the information to criminally investigate or prosecute any alcohol or drug abuse patient.[facility]In the event this information is protected by the Federal Confidentiality of Alcohol and Drug Abuse Patient Records regulations: The Federal rules restrict any use of the information to criminally investigate or prosecute any alcohol or drug abuse patient.[facility]In the event this information is protected by the Federal Confidentiality of Alcohol and Drug Abuse Patient Records regulations: The Federal rules restrict any use of the information to criminally investigate or prosecute any alcohol or drug abuse patient.[facility]In the event this information is protected by the Federal Confidentiality of Alcohol and Drug Abuse Patient Records regulations: The Federal rules restrict any use of the information to criminally investigate or prosecute any alcohol or drug abuse patient.[facility]In the event this information is protected by the Federal Confidentiality of Alcohol and Drug Abuse Patient Records regulations: The Federal rules restrict any use of the information to criminally investigate or prosecute any alcohol or drug abuse patient.[facility]In the event this information is protected by the Federal Confidentiality of Alcohol and Drug Abuse Patient Records regulations: The Federal rules restrict any use of the information to criminally investigate or prosecute any alcohol or drug abuse patient.[facility]In the event this information is protected by the Federal Confidentiality of Alcohol and Drug Abuse Patient Records regulations: The Federal rules restrict any use of the information to criminally investigate or prosecute any alcohol or drug abuse patient.[facility]In the event this information is protected by the Federal Confidentiality of Alcohol and Drug Abuse Patient Records regulations: The Federal rules restrict any use of the information to criminally investigate or prosecute any alcohol or drug abuse patient.[facility]In the event this information is protected by the Federal Confidentiality of Alcohol and Drug Abuse Patient Records regulations: The Federal rules restrict any use of the information to criminally investigate or prosecute any alcohol or drug abuse patient.[facility]In the event this information is protected by the Federal Confidentiality of Alcohol and Drug Abuse Patient Records regulations: The Federal rules restrict any use of the information to criminally investigate or prosecute any alcohol or drug abuse patient.[facility]In the event this information is protected by the Federal Confidentiality of Alcohol and Drug Abuse Patient Records regulations: The Federal rules restrict any use of the information to criminally investigate or prosecute any alcohol or drug abuse patient.[facility]In the event this information is protected by the Federal Confidentiality of Alcohol and Drug Abuse Patient Records regulations: The Federal rules restrict any use of the information to criminally investigate or prosecute any alcohol or drug abuse patient.[facility] Care Teams (unrecognized sec tion and content) Jack Prizer Relationship Specialty Start Date End Date Tino Blake PCP - General Family Practice 12/08/16 Jack Prizer Relationship Specialty Start Date End Date Tino Blake PCP - General Family Practice 12/08/16 Jack Prizer Relationship Specialty Start Date End Date Tino Blake PCP - General Family Practice 12/08/16 Jack Prizer Relationship Specialty Start Date End Date Tino Blake PCP - General Family Practice 12/08/16 Jack Prizer Relationship Specialty Start Date End Date Tino Blake PCP - General Family Practice 12/08/16 Jack Prizer Relationship Specialty Start Date End Date Tino Blake PCP - General Family Practice 12/08/16 Jack Prizer Relationship Specialty Start Date End Date Tino Blake PCP - General Family Practice 12/08/16 Jack Prizer Relationship Specialty Start Date End Date Tino Blake PCP - General Family Practice 12/08/16 Jack Prizer Relationship Specialty Start Date End Date Tino Blake PCP - General Family Practice 12/08/16 Jack Prizer Relationship Specialty Start Date End Date Tino Blake PCP - General Family Practice 12/08/16 Jack Prizer Relationship Specialty Start Date End Date Tino Blake PCP - General Family Medicine 12/08/16 Jack Prizer Relationship Specialty Start Date End Date Tino Blake PCP - General Family Medicine 12/08/16 Jack Prizer Relationship Specialty Start Date End Date Tino Blake PCP - General Family Medicine 12/08/16 Jack Prizer Relationship Specialty Start Date End Date Tino Blake PCP - General Family Medicine 12/08/16 Jack Prizer Relationship Specialty Start Date End Date Tino Blake PCP - General Family Medicine 12/08/16 Jack Prizer Relationship Specialty Start Date End Date Tino Blake PCP - General Family Medicine 12/08/16 Jack Prizer Relationship Specialty Start Date End Date Tino Blake PCP - General Family Medicine 12/08/16 Jack Prizer Relationship Specialty Start Date End Date Tino Blake PCP - General Family Medicine 12/08/16 Jack Prizer Relationship Specialty Start Date End Date Tino Blake PCP - General Family Medicine 12/08/16 Jack Prizer Relationship Specialty Start Date End Date Tino Blake PCP - General Family Medicine 12/08/16 Jack Prizer Relationship Specialty Start Date End Date Tino Blake PCP - General Family Medicine 12/08/16 Jack Prizer Relationship Specialty Start Date End Date Tino Blake PCP - General Family Medicine 12/08/16 Jack Prizer Relationship Specialty Start Date End Date [place]Tino mejia PCP - General Family Medicine 12/08/16 Jack Prizer Relationship Specialty Start Date End Date [place] PCP - General Family Medicine 12/08/16 Jack Prizer Relationship Specialty Start Date End Date Tino Blake PCP - General Family Medicine 12/08/16 Jack Prizer Relationship Specialty Start Date End Date Tino Blake PCP - General Family Medicine 12/08/16 Jack Prizer Relationship Specialty Start Date End Date [place] PCP - General Family Medicine 12/08/16 Jack Prizer Relationship Specialty Start Date End Date Tino Blake PCP - General Family Medicine 12/08/16 Jack Prizer Relationship Specialty Start Date End Date Tino Blake PCP - General Family Medicine 12/08/16 Jack Prizer Relationship Specialty Start Date End Date [place] mejia PCP - General Family Medicine 12/08/16 Jack Prizer Relationship Specialty Start Date End Date Tino Blake PCP - General Family Medicine 12/08/16 Jack Prizer Relationship Specialty Start Date End Date Tino Blake PCP - General Family Medicine 12/08/16 Jack Prizer Relationship Specialty Start Date End Date Tino Blake PCP - General Family Medicine 12/08/16 Jack Prizer Relationship Specialty Start Date End Date Tino Blake PCP - General Family Medicine 12/08/16 Jack Prizer Relationship Specialty Start Date End Date Tino Blake PCP - General Family Medicine 12/08/16 Jack Prizer Relationship Specialty Start Date End Date Tino Blake PCP - General Family Medicine 12/08/16 Jack Prizer Relationship Specialty Start Date End Date Tino Blake PCP - General Family Medicine 12/08/16 Jack Prizer Relationship Specialty Start Date End Date Tino Blake PCP - General Family Medicine 12/08/16 Jack Prizer Relationship Specialty Start Date End Date Tino Blake MD PCP - General Family Medicine 12/08/16 Jack Prizer Relationship Specialty Start Date End Date Tino Blake MD PCP - General Family Medicine 12/08/16 Jack Prizer Relationship Specialty Start Date End Date Tino Blake MD PCP - General Family Medicine 12/08/16 Jack Prizer Relationship Specialty Start Date End Date Tino Blake MD PCP - General Family Medicine 12/08/16 Jack Prizer Relationship Specialty Start Date End Date Tino Blake MD PCP - General Family Medicine 12/08/16 Jack Prizer Relationship Specialty Start Date End Date Tino Blake MD PCP - General Family Medicine 12/08/16 Jack Prizer Relationship Specialty Start Date End Date Tino Blake MD PCP - General Family Medicine 12/08/16 Jack Prizer Relationship Specialty Start Date End Date Tino Blake MD PCP - General Family Medicine 12/08/16 Jack Prizer Relationship Specialty Start Date End Date Tino Blake MD PCP - General Family Medicine 12/08/16 Jack Prizer Relationship Specialty Start Date End Date Tino Blake MD PCP - General Family Medicine 12/08/16 Jack Prizer Relationship Specialty Start Date End Date Tino Blake MD PCP - General Family Medicine 12/08/16 Jack Prizer Relationship Specialty Start Date End Date Tino Blake MD PCP - General Family Medicine 12/08/16 Jack Prizer Relationship Specialty Start Date End Date Tino Blake MD PCP - General Family Medicine 12/08/16 Jack Prizer Relationship Specialty Start Date End Date Tino Blake MD PCP - General Family Medicine 12/08/16 Jack Prizer Relationship Specialty Start Date End Date Tino Blake MD PCP - General Family Medicine 12/08/16 Jack Prizer Relationship Specialty Start Date End Date Tino Blake MD PCP - General Family Medicine 12/08/16 Jack Prizer Relationship Specialty Start Date End Date Tino Blake MD PCP - General Family Medicine 12/08/16 Jack Prizer Relationship Specialty Start Date End Date Tino Blake MD PCP - General Family Medicine 12/08/16 Jack Prizer Relationship Specialty Start Date End Date Tino Blake MD PCP - General Family Medicine 12/08/16 Jack Prizer Relationship Specialty Start Date End Date Tino Blake MD PCP - General Family Medicine 12/08/16 Jack Prizer Relationship Specialty Start Date End Date Tino Blake MD PCP - General Family Medicine 12/08/16 Jack Prizer Relationship Specialty Start Date End Date Madhu Voss MD [address] [place] [address] PCP - General Family Medicine 04/28/23 Niya Santiago NP [address] [place] [address] Nurse Practitioner Family Medicine 04/28/23 Jack Prizer Relationship Specialty Start Date End Date Madhu Voss MD [address] [place] [address] PCP - General Family Medicine 04/28/23 Niya Santiago NP [address] [place] [address] Nurse Practitioner Family Medicine 04/28/23 Jack Prizer Relationship Specialty Start Date End Date Madhu Voss MD [address] [place] [address] PCP - General Family Medicine 04/28/23 Niya Santiago NP [address] [place] [address] Nurse Practitioner Family Medicine 04/28/23 Jack Prizer Relationship Specialty Start Date End Date Madhu Voss MD [address] [place] [address] PCP - General Family Medicine 04/28/23 Niya Santiago NP [address] [place] [address] Nurse Practitioner Family Medicine 04/28/23 Jack Prizer Relationship Specialty Start Date End Date Madhu Voss MD [address] [place] [address] PCP - General Family Medicine 04/28/23 Niya Santiago NP [address] [place] [address] Nurse Practitioner Family Medicine 04/28/23 Jack Prizer Relationship Specialty Start Date End Date Madhu Voss MD [address] [place] [address] PCP - General Family Medicine 04/28/23 Niya Santiago NP [address] [place] [address] Nurse Practitioner Family Medicine 04/28/23 Jack Prizer Relationship Specialty Start Date End Date aMdhu Voss MD [address] [place] [address] PCP - General Family Medicine 04/28/23 Niya Santiago NP [address] [place] [address] Nurse Practitioner Family Medicine 04/28/23 Jack Prizer Relationship Specialty Start Date End Date Madhu Voss MD [address] [place] [address] PCP - General Family Medicine 04/28/23 Niya Santiago NP [address] [place] [address] Nurse Practitioner Family Medicine 04/28/23 Jack Prizer Relationship Specialty Start Date End Date Niya Santiago CNP [address] [place] [address] PCP - General Family Medicine 03/31/24 Jack Prizer Relationship Specialty Start Date End Date Niya Santiago CNP [address] [place] [address] PCP - General Family Medicine 03/31/24 Jack Prizer Relationship Specialty Start Date End Date Niya Santiago CNP [address] [place] [address] PCP - General Family Medicine 03/31/24 Jack Prizer Relationship Specialty Start Date End Date Madhu Voss MD [address] [place] [address] PCP - General Family Medicine 04/28/23 Niya Santiago NP [address] [place] [address] Nurse Practitioner Family Medicine 04/28/23 Jack Prizer Relationship Specialty Start Date End Date Madhu Voss MD [address] [place] [address] PCP - General Family Medicine 04/28/23 Niya Santiago INTRANET SPECIALIST [address] [place] [address] Nurse Practitioner Family Medicine 04/28/23 Jack Prizer Relationship Specialty Start Date End Date Madhu Voss MD [address] [place] [address] PCP - General Family Medicine 04/28/23 Niya Santiago NP [address] [place] [address] Nurse Practitioner Family Medicine 04/28/23 Jack Prizer Relationship Specialty Start Date End Date Niya Santiago, LINE ANALYST [address] [place] [address] PCP - General Family Medicine 03/31/24 INFORMATION SOURCE (unrecogn ized section and content) DATE CREATED AUTHOR 07/13/2021 [facility] DATE CREATED AUTHOR AUTHOR'S ORGANIZ ATION 07/05/2022 [facility] DATE CREATED AUTHOR AUTHOR'S ORGANIZ ATION 04/28/2024 [facility] DATE CREATED AUTHOR AUTHOR'S ORGANIZ ATION 05/13/2024 [facility] Inactive Administered Medications - up to 3 [...] BE BASED ON THE PRIMARY CLINICAL RECORDS. [facility] [employer] [facility]. provides no warranty or guarantee of the accuracy or completeness of information in this document.
--- NOTE | 2024-05-24 19:32 | ED_ITS ---
HPI HPI - General Adult General Chief complaint: Extremity Problem, Nontraumatic Stated complaint: RIGHT HAND LEFT FOOT PAIN Time Seen by Provider: 05/24/24 19:17 Source: patient Mode of arrival: walk-in History of Present Illness HPI narrative: 39-year-old female presents for pain primarily in the joints of her right hand and her left foot. She has a long history of rheumatoid arthritis and sees a biodiesel engine specialist. This time she has been having issues for the last few days and there has been no injury. The pain is moderate. She request no narcotics, she is on Suboxone. She reports that typically prednisone helps. Related Data Home Medications ?Medication ?Instructions ?Recorded ?Confirmed gabapentin 600 mg tablet 600 mg PO Q8H 08/07/22 05/24/24 buprenorphine 8 mg-naloxone 2 mg 1 film sublingual Q24H 04/13/23 05/24/24 sublingual film lisdexamfetamine 50 mg capsule 50 mg PO Q24H 04/13/23 05/24/24 (Vyvanse) albuterol sulfate 90 mcg/actuation 2 puff inhalation Q6H PRN 05/24/24 05/24/24 aerosol inhaler shortness of breath or wheezing venlafaxine 150 mg 150 mg PO DAILY 05/24/24 05/24/24 capsule,extended release 24 hr Previous Rx's ?Medication ?Instructions ?Recorded prednisone 10 mg tablet See Rx Instructions .Route 05/24/24 .COMPLEX #30 tabs Allergies Allergy/AdvReac Type Severity Reaction Status Date / Time No Known Drug Allergies Allergy Verified 12/26/23 04:17 Opioid HPI Opioid Management Most Recent Opioid Data: Last Pain Scale 10 05/24/24 19:15 05/24/24 Review of Systems ROS Narrative A ten point review of systems is negative except as noted above. PFSH PFSH Social History Smoking status: Never smoker Little interest or pleasure in doing things: not at all Feeling down, depressed, or hopeless: not at all Exam Narrative Exam Narrative: Nurses note and vital signs reviewed and patient is not hypoxic. General: The patient appears well and in no apparent distress. Patient is resting comfortably on cart. Skin: Warm, dry, no pallor noted. There is no rash noted. Head: Normocephalic, atraumatic Eye: Normal conjunctiva, no drainage Ears, Nose, Mouth, and Throat: oral mucosa is moist. Nares patent. Cardiovascular: Regular Rate and Rhythm Respiratory: Patient is in no distress, no accessory muscle use, lungs are clear to auscultation, no wheezing, rales or rhonchi Back: non-tender GI: Soft and nontender Musculoskeletal: Her right hand and left foot are examined. There is some inflammation in multiple joints. No open area or drainage. Neurological: A&O, normal speech Psychiatric: Cooperative Constitutional Vital Signs, click to edit/add: Last Vital Signs Temp 98.1 F 05/24/24 19:16 Pulse 88 05/24/24 19:16 Resp 18 05/24/24 19:16 BP 116/93 H 05/24/24 19:16 Pulse Ox 99 05/24/24 19:16 O2 Del Method Room Air 05/24/24 19:16 Course Vital Signs Vital signs: Vital Signs Temperature 98.1 F 05/24/24 19:16 Pulse Rate 88 05/24/24 19:16 Respiratory Rate 18 05/24/24 19:16 Blood Pressure 116/93 H 05/24/24 19:16 Pulse Oximetry 99 05/24/24 19:16 Oxygen Delivery Method Room Air 05/24/24 19:16 Temperature 98.1 F 05/24/24 19:16 Pulse Rate 88 05/24/24 19:16 Respiratory Rate 18 05/24/24 19:16 Blood Pressure 116/93 H 05/24/24 19:16 Pulse Oximetry 99 05/24/24 19:16 Oxygen Delivery Method Room Air 05/24/24 19:16 Medical Decision Making MDM Narrative Medical decision making narrative: She was given IM Toradol and oral prednisone and prescribed prednisone. She will follow-up with her biodiesel engine specialist. Treatment diagnosis and follow-up were discussed with the patient. Differential Diagnosis Differential Diagnosis: Rheumatoid arthritis, arthritis, gout Discharge Plan Discharge Chief Complaint: Extremity Problem, Nontraumatic Clinical Impression: Rheumatoid arthritis flare Patient Disposition: Home, Self-Care Time of Disposition Decision: 19:30 Condition: Good Mode of Transportation: Private Vehicle Prescriptions / Home Meds: New prednisone 10 mg tablet See Rx Instructions .ROUTE .COMPLEX Qty: 30 0RF Rx Instructions: 4 by mouth daily for three days then 3 by mouth daily for three days then 2 by mouth daily for three days then 1 by mouth daily for three days No Action gabapentin 600 mg tablet 600 mg PO Q8H lisdexamfetamine [Vyvanse] 50 mg capsule 50 mg PO Q24H buprenorphine-naloxone 8-2 mg film 1 film sublingual Q24H albuterol sulfate 90 mcg/actuation HFA aerosol inhaler 2 puff INHALATION Q6H PRN (Reason: shortness of breath or wheezing) venlafaxine 150 mg capsule,extended release 24hr 150 mg PO DAILY Print Language: Persian Instructions: Rheumatoid Arthritis (ED) Referrals: Niya Santiago NP [Primary Care Provider] - 1 week
[2024-05-24] MEDS: KETOROLAC TROMETHAMINE 60 MG/2 ML VIAL IM (19:38)
[2024-05-24] MEDS: PREDNISONE 20 MG TABLET 40 MG PO (19:39)
== END 2024-05-24 19:43 | disposition home or self-care (01) ==
PROVIDERS: Emergency Provider Emergency Medicine; PCP Nurse Practitioner
DX: M06.9 Rheumatoid arthritis, unspecified (principal); Z79.899 Other long term (current) drug therapy
CPT/HCPCS: 96372; 99284; J1885; J7512

== ENCOUNTER 2024-08-24 07:25 | Emergency (ER) | payer MEDICAID, SELFPAY ==
--- OUTSIDE RECORDS SUMMARY | 2016-02-21 20:00 | XMS_ITS | Continuity of Care Document ---
Author Organization [facility] Address [address], [address] Phone Care Team Providers Care Tdp Displays Analyst Name Role Phone Unavailable Unavailable Unavailable Advance Directives Directive Yes / No Effective Date File Name No Information Encounters Encounter Description Practice Location Reason(s) For Visit Diagnoses Date Provider Providers Copied on Encounter [facility], [address] [place], [place], [id number], [place] tel:[phone] ZConversion No Information No Information Family History Family Member Type Diagnosis Age At Onset No Information Payers Payer name Insurance type Covered libertarian ID Authoriza tion(s) No Information Social History [...]
--- OUTSIDE RECORDS SUMMARY | 2023-08-23 10:15 | XMS_ITS | Continuity of Care Document ---
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 Name Role Phone Ken Raymundo DMD Unavailable Unavailable Allergies, Adverse Reactions, Alerts Substance Reaction Status Criticality No Known Allergies Active No Inform ation Medications Medication Instructions Dosage Effective Dates (start - stop) Status Comments Suboxone 12 mg-[address] 1 film by sublingual route every day allow to dissolve slowly in mouth without chewing or swallowing 1.00 film - Active Vyvanse 40 mg capsule take 1 capsule by oral route every day in the morning 40 MG - Active Effexor XR 37.5 mg capsule,extended release take 1 capsule by oral route every day with food 37.5 MG - Active gabapentin 600 mg tablet take 1 tablet by oral route 3 times every day 600 MG - Active Vitamin D3 1,000 unit capsule - Active Problems Condition Type Effective Dates (start - stop) Clini gavin Status Comments No Known Problems Procedures Procedure Date Intraoral-periapical 1st Film 4 Bitewig-single Film Limited Oral Eval Oral Hygiene Instruction Nutrit Couns For [employer] [place] Dis Dec Oral Hygiene Instruction Intraoral-periapical 1st Film 3 Bitewig-single Film Oral Hygiene Instruction Limited Oral Eval Resin Composite 3s; Posterior 3 Oral Hygiene Instruction Oral Hygiene Instruction Resin Composite 2s; Posterior 3 Extract; Erupted Th/exposted Rt 023 Resin Composite 2s; Posterior 3 Oral Hygiene Instruction Resin Composite 2s; Posterior 3 Resin Composite 2s; Posterior 3 Resin Two Surfaces Anterior Intraoral-complete Series (bw) Comp Oral Eval New/estab Patient 2022 OFFICE/OUTPATIENT VISIT, EST URINE TEST PREV VISIT, EST, AGE 18-39 ROUTINE VENIPUNCTURE CONIZATION OF CERVIX URINE TEST REMOVE DRUG IMPLANT DEVICE BX/CURETT OF CERVIX W/SCOPE PREV VISIT, EST, AGE 18-39 Advance Directives Directive Yes / No Effective Date File Name No Information Encounters Encounter Description Practice Location Reason(s) For Visit Diagnoses Date Provider Providers Copied on Encounter [facility], [address] [place] [address], [id number], [place] tel:[phone] Dental Clinic Dental ER (chief complaint) Encounter for screening for dental disorders 4 Breanne Rogers. [address] [place] [address], [id number], [place]. tel:[phone] [facility], [address] [place] [address], [id number], [place] tel:[phone] Dental Clinic [place] (chief complaint) Encounter for screening for dental disorders 3 Moalvina DMD Ken. [address], [place], [id number], [place]. tel:[phone] [facility], [address] [place] [address], [id number], [place] tel:[phone] Dental Clinic ext (chief complaint) No Information 3 Caesar Lewis. [address] [place] [address], [id number], [place]. tel:[phone] [facility], [address] [place] [address], [id number], [place] tel:[phone] Dental Clinic [place] (chief complaint) Encounter for screening for dental disorders 3 Breanne Rogers. [address], [place], [id number], [place]. tel:[phone] [facility], [address] [place], [place], [id number], [place] tel:[phone] Dental Clinic filling (chief complaint) Encounter for screening for dental disorders 3 Breanne Rogers. [address], [place], [id number], [place]. tel:[phone] [facility], [address] [place], [place], [id number], [place] tel:[phone] Dental Clinic Fill (chief complaint) Encounter for screening for dental disorders 3 Breanne Rogers. [address], [place], [id number], [place]. tel:[phone] [facility], [address] [place], [place], [id number], [place] tel:[phone] Dental Clinic ext (chief complaint) No Information 3 Caesar Willisothy. [address] [place], [place], [id number], [place]. tel:[phone] [facility], [address] [place], [place], [id number], [place] tel:[phone] Dental Clinic Fill (chief complaint) Encounter for screening for dental disorders 3 Breanne Rogers. [address], [place], [id number], [place]. tel:[phone] [facility], [address] [place], [place], [id number], [place] tel:[phone] Dental Clinic luis (chief complaint) Encounter for screening for dental disorders 3 Breanne Rogers. [address], [place], [id number], [place]. tel:[phone] [facility], [address] [place], [place], [id number], [place] tel:[phone] Dental Clinic Encounter for screening for dental disorders Apr- 3 Breanne Rogers. [address], [place], [id number], [place]. tel:[phone] [facility], [address] [place], [place], [id number], [place] tel:[phone] Dental Clinic [place] (chief complaint) Encounter for screening for dental disorders Apr- 0-202 3 Breanne Rgoers. [address], [place], [id number], [place]. tel:[phone] OFFICE/OUTPAT IENT VISIT, EST [facility], [address] [place], [place], [id number], [place] tel:[phone] [facility] abnormal pap smear (chief complaint) AMY 2OCP follow up Rx- STD screen- STD liefstyle code 9 [facility] [place]. [address] [place], [place], [id number], [place]. 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 [address] [place], [place], [id number], [place]. [phone] [facility], [address] [place], [place], [id number], [place] tel:[phone] [facility] Leep (chief complaint) Encounter for testCIN 2 8 Yary Arguelles. [address] [place], [place], [id number], [place]. tel:[phone] [facility], [address] [place], [place], [id number], [place] tel:[phone] [facility] Nexplanon Removal (chief complaint) Encounter for surveillance of other contraceptives 8 Visc DO Moon. [address] [place], [place], [id number], [place]. tel:[phone] [facility], [address] [place], [place], [id number], [place] tel:[phone] [facility] Colpo (chief complaint) HGSIL on cytologic smear of cervix 8 Visci DO Moon. [address] [place], [place], [id number], [place]. tel:[phone] [facility], [address] [place], [place], [id number], [place] tel:[phone] [facility] RA flare up (chief complaint) Rheumatoid arthritis, unspecified 7 Carlyle Martinez. [address] [place], [place], [id number], [place]. tel:[phone] PREV VISIT, EST, AGE 18-39 [facility], [address] [place], [place], [id number], [place] tel:[phone] [facility] annual exam (chief complaint) Encntr for instructor psychiatric aide exam (general) (routine) w/o abn findings- STD screen- STD liefstyle code 7 Donnell [facility] [place]. [address] [place], [place], [id number], [place]. tel:[phone] [facility], [address] [place], [place], [id number], [place] tel:[phone] [facility] Hearing lossRheumatoid arthritis, unspecified 7 Carlyle Martinez. [address] [place], [place], [id number], [place]. tel:[phone] Family History Family Member Type Diagnosis Age At Onset Mother Problem (finding) rheumatoid arthritis Father Problem (finding) Alive and well Mother Problem (finding) Immunizations Vaccine Date Status Comments Influenza virus vaccine, injectable, quadrivalent, split virus, preservative free, 3 years or older Fluarix, Flulaval or Fluzone Quad refused Source: New Immun ization Record Payers Payer name Insurance type Covered constitution party ID Authormartha newton(s) D Medicaid Wr - [facility] [id number] Medicaid Primary - [facility] [id number] Social History Type Description Quantity Date Captured Comments Alcohol Use Details Unknown Caffeine Use Details Unknown Tobacco Use Status Smoking Status No Information Sex Female Sexual Orientation Straight or heterosexual Gender Identity Female Vital Signs Date / Time: Height Weight BMI Pulse Rate Blood Pressure Temperature Respiratory Rate Body Surface Area Head Circumference Head Circ. Percentile Wt./Rodrigo. Percentile BMI percentile Pulse Ox Inhaled Ox 2:32 PM 64.00 in 70.760 kg (156.00 lbs) 26.7 8 kg/m eter (2) Chief Complaint And Reason For Visit From encounter dated '08/23/2023 14:15'. Dental ER (chief complaint). Description: Dental ER Reason For Referral Reason For Referral No Information Plan Of Treatment Date Type Action Status Goal Depression screening. Due on due Goal Tdap. Due on due Goal RLP. Due on due Goal Unhealthy drug use screening . Due on due Goal Tdap Vaccine. Due on 2023 due Goal HPV. Due on due Goal Influenza vaccine. Due on due Goal Hep A. Due on du e Goal PRAPARE ASSESSMENT. Due on due Goal Hepatitis C screening. Due o n due Goal Hep A. Due on du e Goal HPV. Due on due Goal Tdap Vaccine. Due on 2022 due Goal PRAPARE ASSESSMENT. Due on N due Goal Hepatitis C screening. Due o n due Goal RLP. Due on due Goal Tdap. Due on due Goal Unhealthy drug use screening . Due on due Goal Influenza vaccine. Due on No due Goal Depression screening. Due on due Goal PRAPARE ASSESSMENT. Due on O due Goal Depression screening. Due on due Goal RLP. Due on due Goal Hepatitis C screening. Due o n due Goal Influenza vaccine. Due on Oc due Goal HPV. Due on due Goal Tdap Vaccine. Due on 2022 due Goal Unhealthy drug use screening . Due on due Goal Tdap. Due on due Goal Hep A. Due on du e Goal Unhealthy drug use screening . Due on due Goal Hepatitis C screening. Due o n due Goal PRAPARE ASSESSMENT. Due on O due Goal HPV. Due on due Goal Influenza vaccine. Due on Oc due Goal Tdap Vaccine. Due on 2022 due Goal Depression screening. Due on due Goal Tdap. Due on due Goal RLP. Due on due Goal RLP. Due on due Goal Tdap Vaccine. Due on 2022 due Goal Influenza vaccine. Due on Se due Goal Tdap. Due on due Goal PRAPARE ASSESSMENT. Due on S due Goal Depression screening. Due on due Goal Depression screening. Due on due Goal Tdap Vaccine. Due on 2022 due Goal Tdap. Due on due Goal Influenza vaccine. Due on due Goal RLP. Due on due Goal Hep A. Due on du e Goal PRAPARE ASSESSMENT. Due on due Goal Tdap Vaccine. Due on 2022 due Goal RLP. Due on due Goal Tdap. Due on due Goal Influenza vaccine. Due on Ma due Goal Hep A. Due on du e Goal Depression screening. Due on due Goal PRAPARE ASSESSMENT. Due on M due Goal PRAPARE ASSESSMENT. Due on A due Goal Hep A. Due on du e Goal Tdap Vaccine. Due on 2022 due Goal Tdap. Due on due Goal Influenza vaccine. Due on Ap due Goal Depression screening. Due on due Goal RLP. Due on due Goal Tdap. Due on due Goal Influenza vaccine. Due on Ap due Goal Tdap Vaccine. Due on 2022 due Goal Depression screening. Due on due Goal RLP. Due on due Goal PRAPARE ASSESSMENT. Due on A due Goal Hep A. Due on du e Goal PRAPARE ASSESSMENT. Due on M due Goal Depression screening. Due on due Goal RLP. Due on due Goal Tdap Vaccine. Due on 2022 due Goal Influenza vaccine. Due on [place] due Goal Tdap. Due on due Goal PRAPARE ASSESSMENT. Due on M due Goal Depression screening. Due on due Goal RLP. Due on due Goal Tdap Vaccine. Due on 2022 due Goal Influenza vaccine. Due on [place] due Goal Tdap. Due on due Goal Tobacco cessation counseling completed Goal Tobacco cessation counseling completed Goal Tobacco cessation counseling completed Goal Tobacco cessation counseling completed Goal Tobacco cessation counseling completed Goal Tobacco cessation counseling completed History Of Present Illness Encounter Date Complaint History Of Jermain nt Illness Dental ER Dental ER PA PA ext DL [facility] filling Fill ext ext Fill luis luis DN DN abnormal pap smear Additional in formation: Patient is here for repeat pap with ECC following a LEEP procedure. Patient also needs a NAVIN for TRICH. States she would like to restart OCPs as her boyfriend gets out of retirement soon. Has problems with acne and does not see a load haul dump operator and c/o hearing loss, but has appt with PCP next week. annual exam Currently pregna nt: no. : 2. Parity: Term: 2. Livin. The patient states she uses condoms, male and oral contraceptive for control. Last LMP was 12/15/2017.Negative for Hormone replacement therapy. The patient does use tobacco. Tobacco cessation has been discussed. She does not drink alcohol. Additional information: Evelina is here for annual exam. Has been on OCPs in the past but has been off for several months. Is concerned she may have infertility issues. Her partner is currently in retirement, but once released they may desire a . Does not desire to restart OCPs now as she is currently abstinent. C/O vaginal discharge with odor.. Leep Patient her for LEEP procedure. 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 Currently on BCP but taking it off and on. Has not had a full menses since 05/14/17 Nexplanon removed. Patient had UIC last night. She thinks she still may want one more child. 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 Patients last pap was HGSIL. Patient has a nexplanon since 2010. Patient would like it out. Colpo consent signed. PT is neg .Melody Antonio. RA flare up Patient here for RA flare up that started a week ago..has a knot on her right thumb and has numbness on her left hand. Doesn't feel like the medication she is on for it is working. She wants to try a different medication today. Shayna Maldonado RN annual exam Currently pregna nt: no. : 2. Parity: Term: 2. Livin. The patient states she uses condoms, male for control. Last LMP was 11/20/2016. The patient does use tobacco. Tobacco cessation has been discussed. She does not drink alcohol. Additional information: Here for annual exam. Denies CRANIOLOGIST problems. Has Nexplanon, but it is by several years. would like appt to have it removed and then would like to start OCPs. Does desire a in the future, but is not currently in a relationship.. Functional Status Date Functional Assessmen t No Information Instructions Date Instruction Additional Infor kymberly Discussed BC options and patient would like to restart OCPs. States she is a smoker and will be 34yr this year. Rx for progesterone only pill sent to pharmacy. Encouraged condoms for back up BC and to prevent STD. Due to acne patient is to self refer to [facility] Related to OCP follow up Rx Cervical cultures sent to lab. R elated to - STD screen Pap and ECC obtained and sent to lab. Patient to RTC 6 months for next repeat pap with ECC. Related to AMY 2 Encouraged monthly B SE. Recommend calcium 1000mg QD. Encouraged good dietary intake and exercise. Laboratory specimens sent to lab. Patient to call in 2 weeks if desires results. Discussed ovulation, timing of IC and PNV. Encouraged to try for for at least one year and if no then encouraged to seek care for infertility. Recommend PNV daily. Discussed BC options and patient declines at this time. Partner is currently in retirement. 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 Patient to call in 1 week for results Related to - STD screen Encouraged monthly B SE. Recommend calcium 1000mg QD. Encouraged good dietary intake and exercise. Laboratory specimens sent to lab. Patient to call in 2 weeks if desires results. Encouraged to keep appt for Nexplanon removal and to start OCPs. 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 Patient to call in 1 week for results Related to - STD screen Assessments Type Assessment Date No Information Patient Care Teams Name Effective Dates (start - stop) Status Members No Information
--- OUTSIDE RECORDS SUMMARY | 2024-08-24 07:31 | XMS_ITS | Encounter Summary ---
Author Organization [facility] Address [address] [place], [place] [address] Care Team Providers Care Slip Sheeter Name Role Phone Juan Tadeo MD Primary Care Provider Niya Santiago CNP Primary Care Provider [phone] Source Comments In the event this information is protected by the Federal Confidentiality of Alcohol and Drug AbusePatient Records regulations: The Federal rules restrict any use of the information to criminally investigate or prosecute any alcohol or drug abuse patient.[facility] Encounter Details Date Type Department Care Team (Late st Contact Info) Description 11/25/2022 Patient Msg Infusion [address] [place] [address] Provider, [facility] Infusion for 11/27/22 Social History Tobacco Use Types Packs/Day Years Used Date Smoking Tobacco: Light Smoker Cigarettes Started: 04/22/2012 Smokeless Tobacco: Never Comments:social smoker not e veryday Alcohol Use Standard Drinks/Week Comments No 0 (1 standard drink = 0.6 oz pur e alcohol) PHQ-2 Answer Date Recorded PHQ-2 score 1 12/30/2017 Area Deprivation Index Answer Date Ankit rded National Score (1-100), lower number is lower rust 87 09/17/2022 State Score (1-10), lower number is lower risk 8 09/17/2022 Data from: https://www.neighborhoodatlas.medicine.[facility].edu/. Last address used for calculation [address] 09/17/2022 Comments No Sex and Gender Information Value Date Recorded Sex Assigned at Not on file Legal Sex Female 1:23 PM EDT Gender Identity Not on file Sexual Orientation Not on file documented as of this encounter Miscellaneous Notes * Telephone Encounter - Sheridan Jean RN - 11/26/2022 1:41 PM EDT Call placed to patient with no answer. LMOM to call us back or my chart to confirm sh will be coming for infusion and denies any recent infection. * Telephone Encounter - Yessy Gonzalez RN - 11/26/2022 10:49 AM EDT VM left for pt to call office to confirm infusion tomorrow. Need to confirm that pt is infection free and not taking antibiotics. documented in this encounter Plan of Treatment Not on file documented as of this encounter Visit Diagnoses Not on filedocumented in this encounter Care Teams Slip Sheeter Relationship Specialty Start Date End Date Juan Tadeo MD PCP - General Family Medicine 12/08/16 03/30/24 Niya Santiago, JOB ORDER CLERK [address] [place] [address] PCP - General Family Medicine 03/31/24 documented as of this encounter
--- OUTSIDE RECORDS SUMMARY | 2024-08-24 07:31 | XMS_ITS | Encounter Summary ---
Author Organization [facility] Address [address] [place], [place] [id number] Care Team Providers Care Technology Lab Teacher Name Role Phone Juan Tadeo MD Primary Care Provider Niya Santiago CNP Primary Care Provider [phone] Source Comments In the event this information is protected by the Federal Confidentiality of Alcohol and Drug AbusePatient Records regulations: The Federal rules restrict any use of the information to criminally investigate or prosecute any alcohol or drug abuse patient.[facility] Encounter Details Date Type Department Care Team (Late st Contact Info) Description 09/10/2020 Patient Msg Hematology/ Oncology [address] [place] [address] Provider, [facility] medication questions Social History Tobacco Use Types Packs/Day Years Used Date Smoking Tobacco: Light Smoker Cigarettes Started: 04/22/2012 Smokeless Tobacco: Never Comments:social smoker not e veryday Alcohol Use Standard Drinks/Week Comments No 0 (1 standard drink = 0.6 oz pur e alcohol) PHQ-2 Answer Date Recorded PHQ-2 score 1 12/30/2017 Area Deprivation Index Answer Date Ankit rded National Score (1-100), lower number is lower ri sk Not on file 02/01/2020 State Score (1-10), lower number is lower risk N ot on file 02/01/2020 Data from: https://www.neighborhoodatlas.medicine.[facility].edu/. Last address used for calculation Not on file 02/01/2020 Comments No Sex and Gender Information Value Date Recorded Sex Assigned at Not on file Legal Sex Female 1:23 PM EDT Gender Identity Not on file Sexual Orientation Not on file COVID-19 Exposure Response Date Recorded In the last month, have you been in contact with someone who was confirmed or suspected to have Coronavirus / COVID-19? No / Unsure 09/04/2020 2:12 PM EDT documented as of this encounter Plan of Treatment Not on file documented as of this encounter Visit Diagnoses Not on filedocumented in this encounter Care Teams Technology Lab Teacher Relationship Specialty Start Date End Date Juan Tadeo MD PCP - General Family Medicine 12/08/16 03/30/24 Niya Santiago, ANIMAL HANDLER [address] [place] [address] PCP - General Family Medicine 03/31/24 documented as of this encounter
--- OUTSIDE RECORDS SUMMARY | 2024-08-24 07:31 | XMS_ITS | Encounter Summary ---
Author Organization [facility] Address [address] [place], [place] [address] Care Team Providers Care Agriculture Laboratory Technician Name Role Phone Juan Tadeo MD Primary Care Provider Niya Santiago CNP Primary Care Provider [phone] Source Comments In the event this information is protected by the Federal Confidentiality of Alcohol and Drug AbusePatient Records regulations: The Federal rules restrict any use of the information to criminally investigate or prosecute any alcohol or drug abuse patient.[facility] Encounter Details Date Type Department Care Team (Late st Contact Info) Description 09/01/2023 Patient Msg Pediatrics [place] [address] [place], [place] [id number] Provider, [facility] Rheumatology Appointment Cancellation Social History Tobacco Use Types Packs/Day Years Used Date Smoking Tobacco: Light Smoker Cigarettes Started: 04/22/2012 Smokeless Tobacco: Never Comments:social smoker not e veryday Alcohol Use Standard Drinks/Week Comments No 0 (1 standard drink = 0.6 oz pur e alcohol) PHQ-2 Answer Date Recorded PHQ-2 score 1 12/30/2017 Area Deprivation Index Answer Date Ankit rded National Score (1-100), lower number is lower ri 87 09/17/2022 State Score (1-10), lower number is lower risk 8 09/17/2022 Data from: https://www.neighborhoodatlas.medicine.[facility].edu/. Last address used for calculation [address] 09/17/2022 Comments No Sex and Gender Information Value Date Recorded Sex Assigned at Not on file Legal Sex Female 1:23 PM EDT Gender Identity Not on file Sexual Orientation Not on file documented as of this encounter Plan of Treatment Not on file documented as of this encounter Visit Diagnoses Not on filedocumented in this encounter Care Teams Agriculture Laboratory Technician Relationship Specialty Start Date End Date Juan Tadeo MD PCP - General Family Medicine 12/08/16 03/30/24 Niya Santiago, BOOK TRIMMER [address] [place] [address] PCP - General Family Medicine 03/31/24 documented as of this encounter
--- OUTSIDE RECORDS SUMMARY | 2024-08-24 07:31 | XMS_ITS | Encounter Summary ---
Author Organization [facility] Address [address] [place], [place] [address] Care Team Providers Care Financial Service Rep Name Role Phone Juan Tadeo MD Primary Care Provider Niya Santiago CNP Primary Care Provider [phone] Source Comments In the event this information is protected by the Federal Confidentiality of Alcohol and Drug AbusePatient Records regulations: The Federal rules restrict any use of the information to criminally investigate or prosecute any alcohol or drug abuse patient.[facility] Encounter Details Date Type Department Care Team (Late st Contact Info) Description 08/04/2021 Patient Msg Infusion [address] [place] [address] Haley Hoyos MD [address] [place], [place] [id number] infusion for Wednesday Social History Tobacco Use Types Packs/Day Years [...] (1-100), lower number is lower ri sk 85 07/23/2021 State Score (1-10), lower number is lower risk N ot on file 07/23/2021 Data from: https://www.neighborhoodatlas.medicine.[facility].edu/. Last address used for calculation [address] 07/23/2021 Comments No Sex and Gender Information Value Date Recorded Sex Assigned at Not on file Legal Sex Female 1:23 PM EDT Gender Identity Not on file Sexual Orientation Not on file documented as of this encounter Plan of Treatment Not on file documented as of this encounter Visit Diagnoses Not on filedocumented in this encounter Care Teams Financial Service Rep Relationship Specialty Start Date End Date Juan Tadeo MD PCP - General Family Medicine 12/08/16 03/30/24 Niya Santiago, FILM CRITIC [address] [place] [address] PCP - General Family Medicine 03/31/24 documented as of this encounter
--- OUTSIDE RECORDS SUMMARY | 2024-08-24 07:31 | XMS_ITS | Clinical Summary ---
Author Organization [facility] Address [address] [place], [place] [id number] Care Team Providers Care Automatic Clipper And Stripper Name Role Phone Niya Santiago CNP Primary Care Provider Allergies Active Allergy Reactions Criticality Noted Date Comments Infliximab-Axxq Anaphylaxis High 10/22/2022 Adverse reaction, chest tightness, shortness of breath and trouble breathing Medications Cholecalciferol, Vitamin D3, (VITAMIN D) 25 mcg (1,000 unit) capIndications:Vit maxwell D deficiency Take 2 capsules by mouth once daily. 60 capsule 3 01/07/20 22 Active triamcinolone acetonide (KENALOG) 0.1 % ointment APPLY TWICE A DAY TO THE AFFECTED AREA OF THE ELBOW 10/09/19 23 Active ondansetron orally disintegrating (ZOFRAN ODT) 4 mg disintegrating tablet DISSOLVE 1 TABLET BY MOUTH EVERY 8 HOURS NEEDED FOR NAUSEA 12/17/19 23 Active buprenorphine HCl/naloxone HCl (BUPRENORPHINE-NAL OXONE BUCCAL) Buprenorphine-Nal oxone Active 1 FILM SL Q24H April 13, 2023 12:00am 08/08/19 23 Active clobetasol (TEMOVATE) 0.05 % cream APPLY THIN LAYER TO ELBOW REGION TWICE DAILY FOR 14 DAYS 03/11/19 24 Active nabumetone (RELAFEN) 750 mg tablet Take by mouth. 08/23/19 23 Active venlafaxine ER (EFFEXOR XR) 150 mg 24 hr capsule TAKE 1 CAPSULE BY MOUTH DAILY. DO NOT CRUSH OR CHEW 05/03/19 24 Active albuterol HFA (PROVENTIL HFA, VENTOLIN HFA) 90 mcg/actuation inhalerIndications :Wheezing Inhale 2 Puffs as instructed every 4 hours as needed for wheezing/shortnes s of breath. 6.7 g 05/26/19 24 Active cetirizine (ZYRTEC) 10 mg tabletIndications: Wheezing Take 1 tablet by mouth once daily. 30 tablet 05/26/19 24 Active VYVANSE 50 mg capsule TAKE 1 CAPSULE BY MOUTH IN THE MORNING. DO NOT START BEFORE MARCH 25, 2024. Active gabapentin (NEURONTIN) 600 mg tablet TAKE 1 TABLET BY MOUTH 3 TIMES A DAY FOR ANXIETY Active tocilizumab (ACTEMRA) 162 mg/0.9 mL subcutaneous injectionIndicatio ns:Seropositive rheumatoid arthritis (HCC) Inject 162mg (1 syringe) subcutaneously every 2 weeks. 2 Each 3 03/31/19 25 Active Active Problems Problem Noted Date Diagnosed Date Cyclic citrullinated peptide (CCP) antibody posi tive 12/30/2017 Rheumatoid factor positive 12/30/2017 Seropositive rheumatoid arthritis 12/30/2017 Smokes and motivated to quit 12/30/2017 Overview (12/30/2017): Counseled on cessation Vitamin D deficiency 04/23/2017 Immunizations Immunization Administration Dates Next Due diphtheria tetanus pertussis (DTP) vaccine 06/02 Social History Tobacco Use Types Packs/Day Years Used Date Smoking Tobacco: Light Smoker Cigarettes Started: 04/22/2012 Smokeless Tobacco: Never Tobacco Cessation:Ready to Q uit: Not Asked; Counseling Given: Yes Comments:social smoker not everyday Alcohol Use Standard Drinks/Week Comments No 0 (1 standard drink = 0.6 oz pur e alcohol) PHQ-2 Answer Date Recorded PHQ-2 score 1 12/30/2017 Area Deprivation Index Answer Date Ankit rded National Score (1-100), lower number is lower ri sk 87 09/17/2022 State Score (1-10), lower number is lower risk 8 09/17/2022 Data from: https://www.neighborhoodatlas.medicine.[facility].edu/. Last address used for calculation [address] 09/17/2022 Comments No Sex and Gender Information Value Date Recorded Sex Assigned at Not on file Legal Sex Female 1:23 PM EDT Gender Identity Not on file Sexual Orientation Not on file Last Filed Vital Signs Vital Sign Reading Time Taken Comments Blood Pressure 115/70 03/31/2024 1:49 PM EST Pulse 77 03/31/2024 1:49 PM EST Temperature 36.4 C (97.5 F) 05/26/2023 1:42 PM EDT Respiratory Rate 18 04/28/2023 12:15 PM EST Oxygen Saturation 98% 05/26/2023 1:42 PM EDT Inhaled Oxygen Concentration - - Weight 73.7 kg (162 lb 7.7 oz) 03/31/2024 1:49 P M EST Height 160 cm (5' 3 ) 03/31/2024 1:49 PM EST Body Mass Index 28.78 03/31/2024 1:49 PM EST Plan of Treatment Health Maintenance Due Date Last Done Comments Covid-19 Vaccine (#1) 02/16/1989 Cervical Cancer Screening 02/16/1995 Anxiety Screening 02/16/2002 Depression Screening 02/16/2002 Hepatitis B Vaccine (1 of 3 - 19+ 3-dose series) 02/16/2003 Pneumococcal Vaccine (1 of 2 - PCV) 02/16/2003 Shingrix Vaccine (1 of 2) 02/16/2003 Influenza Vaccine (#1) 2024 Mammogram Screening 03/23/2025 03/23/2024 DTaP,Tdap,Td Vaccine (2 - Tdap) 06/03/2031 HIV Screening Completed 12/30/2017, 04/22/2017 Hepatitis C Screening Completed 06/12/2021 , 06/12/2021, 03/29/2020, Additional history exists Procedures Procedure Name Priority Date/Time Associated Diagnosis Comments HEPATITIS C ANTIBODY IA WITH CONFIRMATION Routine 06/12/2021 4:15 PM EDT Seropositive rheumatoid arthritis (HCC) HIV 1/2 COMBO WITH REFLEX TO DIFFERENTIATION Routine 12/30/2017 1:19 PM EST Seropositive rheumatoid arthritis (HCC) Encounter for monitoring leflunomide therapy Pain in joint, multiple sites from Last 3 Months or Most Recently Relevant to Health Maintenance Results * HEP C AB IA W/CONF SCRN (06/12/2021 4:15 PM EDT) Hep C Antibody IA Negative Negative 06/13/2021 11:59 AM EDT [facility] Comment:The result suggests no evidence of active infection with Hepatitis C virus. Should recent infection be suspected, repeat testing may be considered 4-6 weeks after this draw. Blood BLOOD SPECIMEN / Unknown Venipuncture / Unknown 06/12/2021 4:15 PM EDT 06/12/2021 4:18 PM EDT Fariba Frank LAMBSKIN TRIMMER.[facility] Final Res ult [facility] [address] [facility] [address] [place] [id number], * HIV 1,2 COMBO (AG/AB) (12/30/2017 1:19 PM EST) HIV 12 Combo (Ag/Ab) Non Reactive Non Reactive 12/31/2017 7:10 PM EST [facility] Comment: (NOTE) HIV Information: [place] Rev. Code 3701.243(E): This information has been disclosed to you from confidential records protected from disclosure by state law. You shall make no further disclosure of this information without the specific, written, and informed release of the individual to whom it pertains, or as otherwise permitted by state law. A general authorization for the release of medical or other information is not sufficient for the purpose of the release of HIV test results or diagnoses. Blood specimen (specimen) BLOOD SPECIMEN / Unknown 12/30/2017 1:19 PM EST 12/30/2017 1:22 PM EST Juan Daniel Leos MD LABORATORY Final Resul t [facility] [address] [place] [address] from Last 3 Months or Most Recently Relevant to Health Maintenance Insurance [employer] [place] Care Teams Automatic Clipper And Stripper Relationship Specialty Start Date End Date Niya Santiago, [facility] [address] [place] [phone] PCP - General Family Medicine 03/31/24
--- OUTSIDE RECORDS SUMMARY | 2024-08-24 07:31 | XMS_ITS | Encounter Summary ---
Author Organization [facility] Address [address] [place] [address] Care Team Providers Care Document Improvement Specialist Name Role Phone Juan Tadeo MD Primary Care Provider Niya Santiago CNP Primary Care Provider [phone] Source Comments In the event this information is protected by the Federal Confidentiality of Alcohol and Drug AbusePatient Records regulations: The Federal rules restrict any use of the information to criminally investigate or prosecute any alcohol or drug abuse patient.[facility] Encounter Details Date Type Department Care Team (Late st Contact Info) Description 10/28/2021 Patient Msg Infusion [address] [place] [address] Fariba Frank APRN.INSPECTOR SET UP AND LAY OUT [address] [place], [place] [id number] IMPORTANT!!!! Social History Tobacco Use Types Packs/Day Years [...] N ot on file 07/23/2021 Data from: https://www.neighborhoodatlas.medicine.[facility].edu/. Last address used for calculation [address] 07/23/2021 Comments No Sex and Gender Information Value Date Recorded Sex Assigned at Not on file Legal Sex Female 1:23 PM EDT Gender Identity Not on file Sexual Orientation Not on file documented as of this encounter Plan of Treatment Not on file documented as of this encounter Visit Diagnoses Not on filedocumented in this encounter Care Teams Document Improvement Specialist Relationship Specialty Start Date End Date Juan Tadeo MD PCP - General Family Medicine 12/08/16 03/30/24 Niya Santiago, INSPECTOR SET UP AND LAY OUT [address] [place] [address] PCP - General Family Medicine 03/31/24 documented as of this encounter
--- OUTSIDE RECORDS SUMMARY | 2024-08-24 07:31 | XMS_ITS | Encounter Summary ---
Author Organization [facility] Address [address] [place], [place] [address] Care Team Providers Care Perinatal Tech Name Role Phone Juan Tadeo MD Primary Care Provider Niya Santiago CNP Primary Care Provider [phone] Source Comments In the event this information is protected by the Federal Confidentiality of Alcohol and Drug AbusePatient Records regulations: The Federal rules restrict any use of the information to criminally investigate or prosecute any alcohol or drug abuse patient.[facility] Encounter Details Date Type Department Care Team (Late st Contact Info) Description 09/03/2023 Patient Msg [place] [place] [address] [place], [place] [phone] Provider, [facility] Rhe[facility]ology Appointment Cancellation Social History [...] is lower risk 8 09/17/2022 Data from: https://www.neighborhoodatlas.medicine.[facility].edu/. Last address used for calculation [...] on filedocumented in this encounter Care Teams Perinatal Tech Relationship Specialty Start Date End Date Juan Tadeo MD PCP - General Family Medicine 12/08/16 03/30/24 Niya Santiago, FERRYBOAT TICKET TAKER [address] [facility] [place] [address] PCP - General Family Medicine 03/31/24 documented as of this encounter
--- OUTSIDE RECORDS SUMMARY | 2024-08-24 07:31 | XMS_ITS | Encounter Summary ---
Author Organization [facility] Address [address] [place], [place] [id number] Care Team Providers Care Small Engine Specialist Name Role Phone Juan Tadeo MD Primary Care Provider Niya Santiago CNP Primary Care Provider [phone] Source Comments In the event this information is protected by the Federal Confidentiality of Alcohol and Drug AbusePatient Records regulations: The Federal rules restrict any use of the information to criminally investigate or prosecute any alcohol or drug abuse patient.[facility] Encounter Details Date Type Department Care Team (Late st Contact Info) Description 06/12/2021 Patient Msg Urology [address] [place] [address] Provider, [facility] Appointments Social History Tobacco Use Types Packs/Day Years [...] N ot on file 02/01/2020 Data from: https://www.neighborhoodatlas.medicine.[facility].edu/. Last address used for calculation Not on file 02/01/2020 Comments No Sex and Gender Information Value Date Recorded Sex Assigned at Not on file Legal Sex Female 1:23 PM EDT Gender Identity Not on file Sexual Orientation Not on file COVID-19 Exposure Response Date Recorded In the last 10 days, have yo u been in contact with someone who was confirmed or suspected to have Coronavirus/COVID-19? No / Unsure 06/12/2021 4:05 PM EDT documented as of this encounter Plan of Treatment Not on file documented as of this encounter Visit Diagnoses Not on filedocumented in this encounter Care Teams Small Engine Specialist Relationship Specialty Start Date End Date Juan Tadeo MD PCP - General Family Medicine 12/08/16 03/30/24 Niya Santiago, MECHANICAL ENGINEERING DIRECTOR [address] [place] [address] PCP - General Family Medicine 03/31/24 documented as of this encounter
--- OUTSIDE RECORDS SUMMARY | 2024-08-24 07:31 | XMS_ITS | Encounter Summary ---
Author Organization [facility] Address [address] [place] [address] Care Team Providers Care Framing Manager Name Role Phone Juan Tadeo MD Primary Care Provider Niya Santiago CNP Primary Care Provider [phone] Source Comments In the event this information is protected by the Federal Confidentiality of Alcohol and Drug AbusePatient Records regulations: The Federal rules restrict any use of the information to criminally investigate or prosecute any alcohol or drug abuse patient.[facility] Encounter Details Date Type Department Care Team (Late st Contact Info) Description 10/04/2023 Patient [facility] -[address] [place], [place] [phone] Natalia Hunter RPh At your next appointment, choose [facility]. Social History Tobacco Use Types Packs/Day Years [...] is lower risk 8 09/17/2022 Data from: https://www.neighborhoodatlas.medicine.[facility].edu/. Last address used for calculation [address] [...] on filedocumented in this encounter Care Teams Framing Manager Relationship Specialty Start Date End Date Juan Tadeo MD PCP - General Family Medicine 12/08/16 03/30/24 Niya Santiago, SCRAP DROP OPERATOR [address] [place] [address] PCP - General Family Medicine 03/31/24 documented as of this encounter
--- OUTSIDE RECORDS SUMMARY | 2024-08-24 07:31 | XMS_ITS | Encounter Summary ---
Author Organization [facility] Address [address] [place] [address] Care Team Providers Care House Piping Inspector Name Role Phone Juan Tadeo MD Primary Care Provider Niya Santiago CNP Primary Care Provider [phone] Source Comments In the event this information is protected by the Federal Confidentiality of Alcohol and Drug AbusePatient Records regulations: The Federal rules restrict any use of the information to criminally investigate or prosecute any alcohol or drug abuse patient.[facility] Encounter Details Date Type Department Care Team (Late st Contact Info) Description 09/09/2023 Patient [facility] -[address] [place] [address] Ramona Cummings RPh At your next appointment, choose [facility] Social History Tobacco Use Types Packs/Day Years [...] is lower risk 8 09/17/2022 Data from: https://www.neighborhoodatlas.medicine.[facility].edu/. Last address used for calculation [...] on filedocumented in this encounter Care Teams House Piping Inspector Relationship Specialty Start Date End Date Juan Tadeo MD PCP - General Family Medicine 12/08/16 03/30/24 Niya Santiago, DATASTAGE ARCHITECT [address] [place] [address] PCP - General Family Medicine 03/31/24 documented as of this encounter
--- OUTSIDE RECORDS SUMMARY | 2024-08-24 07:31 | XMS_ITS | Encounter Summary ---
Author Organization [facility] Address [address] [place], [place] [phone] Care Team Providers Care Cotton Picking Machine Operator Name Role Phone Niya Santiago CNP Primary Care Provider [phone] Source Comments In the event this information is protected by the Federal Confidentiality of Alcohol and Drug AbusePatient Records regulations: The Federal rules restrict any use of the information to criminally investigate or prosecute any alcohol or drug abuse patient.[facility] Encounter Details Date Type Department Care Team (Late st Contact Info) Description 04/04/2024 Patient Msg [facility] [address] [place] [address] Provider, [facility] Need Labs Completed Social History Tobacco Use Types Packs/Day Years [...] lower risk 8 09/17/2022 Data from: https://www.neighborhoodatlas.medicine.[facility]/. Last address used for calculation [address] [...] on filedocumented in this encounter Care Teams Cotton Picking Machine Operator Relationship Specialty Start Date End Date Niya Santiago, BIOLOGICAL TECHNICIAN [address] [place] [address] PCP - General Family Medicine 03/31/24 documented as of this encounter
--- OUTSIDE RECORDS SUMMARY | 2024-08-24 07:31 | XMS_ITS | Encounter Summary ---
Author Organization [facility] tem Address [id number] [address] [place] [address] Care Team Providers Care Siding Installer Name Role Phone No Pcp, No Pcp Primary Care Provider Unavailabl e Encounter Details Date Type Department Care Team (Late st Contact Info) Description 02/12/2021 Orders Only Maternal- Medicine at [facility] [address] [place] [phone] Patricio Ram, DO [address] [facility] [place] [address] Social History Tobacco Use Types Packs/Day Years Used Date Smoking Tobacco: Every Day Cigarettes Alcohol Use Standard Drinks/Week Comments No 0 (1 standard drink = 0.6 oz pur e alcohol) Childcare Answer Date Recorded Childcare Unknown 08/04/2018 Employment Answer Date Recorded Employment Unknown 08/04/2018 Comments Yes Sex and Gender Information Value Date Recorded Sex Assigned at Not on file Legal Sex Female 1:54 AM EDT Gender Identity Not on file Sexual Orientation Not on file COVID-19 Exposure Response Date Recorded In the last month, have you been in contact with someone who was confirmed or suspected to have Coronavirus / COVID-19? No / Unsure 02/12/2021 10:15 AM EST documented as of this encounter Plan of Treatment Not on file documented as of this encounter Procedures Procedure Name Priority Date/Time Associated Diagnosis Comments FREE CELL DNA (NON-PRO MEDICA SEND OUT) Routine 12/17/2020 documented in this encounter Results * Free Cell DNA (12/17/2020) us Patricio Ram DO LAB BLOOD ORDERABLES Final Resu lt MANUALLY TRANSCRIBED RESULTS documented in this encounter Visit Diagnoses Not on filedocumented in this encounter Care Teams Siding Installer Relationship Specialty Start Date End Date No Pcp, [place] [address] PCP - General Family Medicine 08/30/16 documented as of this encounter
--- OUTSIDE RECORDS SUMMARY | 2024-08-24 07:31 | XMS_ITS | Encounter Summary ---
Author Organization [facility] Address [address] [place] [address] Care Team Providers Care Finished Garment Inspector Name Role Phone Unavailable Primary Care Provider Unavailabl e Reason for Visit * Reason Comments Medication Refill Encounter Details Date Type Department Care Team (Late st Contact Info) Description 04/28/2019 Refill [facility] [address] [place] [address] Dr [address] [place] [address] Tosha Viera, [place] [facility] [address] [place] [address] Medication Refill Social History Tobacco Use Types Packs/Day Years Used Date Smoking Tobacco: Every Day Cigarettes Smokeless Tobacco: Never Alcohol Use Standard Drinks/Week Comments Not Currently 0 (1 standard drink = 0.6 oz pur e alcohol) PHQ-2 Answer Date Recorded PHQ-2 Score 0 12/19/2018 Comments Yes Sex and Gender Information Value Date Recorded Sex Assigned at Not on file Legal Sex Female 1:13 AM EDT Gender Identity Not on file Sexual Orientation Not on file documented as of this encounter Plan of Treatment Not on file documented as of this encounter Visit Diagnoses Diagnosis Cough documented in this encounter Additional Health Concerns Infection Onset Date Last Indicated Resolved Time COVID-19 (Rule Out) 03/15/2020 03/15/2020 03/17/19 21 7:12 AM EST COVID-19 03/15/2020 03/15/2020 03/29/2020 9:28 PM EST documented as of this encounter
--- OUTSIDE RECORDS SUMMARY | 2024-08-24 07:31 | XMS_ITS | Clinical Summary ---
Author Organization [employer] tem Address [id number] [address] [place] [place] [address] Care Team Providers Care Transportation Broker Name Role Phone No Pcp, No Pcp Primary Care Provider Unavailabl e Allergies No known active allergies Medications buprenorphine-n aloxone (SUBOXONE) 8-2 mg per SL tablet Place 2 tablets under the tongue daily. Patient taking 2 tablet. 8 mg tab sublingual Active predniSONE (DELTASONE) 10 mg tablet Take 10 mg by mouth daily. Active ondansetron (ZOFRAN) 4 mg tablet Take 4 mg by mouth every 6 (six) hours as needed for nausea or vomiting. Active naloxone (NARCAN) 4 mg/actuation spray,non-aeros ol nasal spray Administer 1 spray into each nostril as needed for opioid reversal. Active Active Problems No known active problems Family History Medical History Relation Name Comments COPD Father Relation Name Status Comments Father Alive Mother Social History Tobacco Use Types Packs/Day Years Used Date Smoking Tobacco: Every Day Cigarettes Alcohol Use Standard Drinks/Week Comments No 0 (1 standard drink = 0.6 oz pur e alcohol) Childcare Answer Date Recorded Childcare Unknown 08/04/2018 Employment Answer Date Recorded Employment Unknown 08/04/2018 Comments No Sex and Gender Information Value Date Recorded Sex Assigned at Not on file Legal Sex Female 1:54 AM EDT Gender Identity Not on file Sexual Orientation Not on file Last Filed Vital Signs Vital Sign Reading Time Taken Comments Blood Pressure 110/70 02/12/2021 11:52 AM EST Pulse 75 02/12/2021 11:52 AM EST Temperature 36.8 C (98.3 F) 08/31/2016 2:24 AM EDT Respiratory Rate 18 08/31/2016 2:24 AM EDT Oxygen Saturation 100% 08/31/2016 2:24 AM EDT Inhaled Oxygen Concentration - - Weight 78.3 kg (172 lb 9.9 oz) 02/12/2021 11:52 AM EST Height 160 cm (5' 3 ) 12/04/2020 12:34 PM EDT Body Mass Index 30.58 12/04/2020 12:34 PM EDT Plan of Treatment Health Maintenance Due Date Last Done Comments Depression Screening 1996 Tobacco Screening 1996 Adult BMI Screening 02/16/2002 DTaP,Tdap and Td Vaccines (1 - Tdap) 02/16/2003 Pap Smear 02/16/2005 Influenza Vaccine 10/23/2024 Medical Devices Not on file Insurance [employer] MEDICAID Care Teams Transportation Broker Relationship Specialty Start Date End Date No Pcp, [place] [address] PCP - General Family Medicine 08/30/16
--- OUTSIDE RECORDS SUMMARY | 2024-08-24 07:31 | XMS_ITS | CCD ---
Author Organization [facility] CliniSyid Care Team Providers Care Fur Dressing Supervisor Name Role Phone Unavailable Primary Care Provider UnavailTino Azar Primary Care Provider ALEX REINOSO Attending Unavailable [...] UnavailRIMMA Figueredo Consulting Unavailable Hayden CID, Tino Doty Primary Care Provider Hayden CID, Tino Doty Primary Care Provider Madhu Voss MD Primary Care Provider Aichholz PRESS OPERATOR ASSISTANT, Niya Unavailable Aichholz ASSEMBLY LINE LEADER, Niya Torres Primary Care Provider [phone] AICHHOLZ, NIYA Attending Unavailable AICHHOLZ, NIYA Attending Unavailable AICHHOLZ, NIYA Attending Unavailable AICHHOLZ, NIYA Attending Unavailable AICHHOLZ, NIYA Attending Unavailable AICHHOLZ, NIYA Attending Unavailable CRAIG WADE Attending Unavailable TINO BLAKE Primary Care Unavaila ble AICHHOLZ, NIYA IRLANDA Primary Care Unavailable HAYDEN, TINO DOTY Primary Care Unavaila ble FARIBA HILL Attending Unavailable HAYDEN, TINO DOTY Primary Care Unavaila ble HAYDEN, TINO SOREN Primary Care Unavaila ble Allergies Allergy Classification Reported Allergen(s) Allergy Type Date of Onset Reaction(s) Facility (20 sources) inFLIXimab; Translations: [INFLIXIMAB-AXXQ ] Drug Allergy 10-22-2022 Anaphylaxis [facility] (18 sources) inFLIXimab Drug Allergy 10-22-2022 Anaphylaxis [facility] [...] mg from all sources in 24 hours. [id number] actuat albuterol 0.09 mg/actuat metered dose inhaler (20 sources) beta2-Adrenergic Agonist Start: 12-20-2023 End: 05-04-2024 take 2 puff(s) by inhalation every six hours for wheezing albuterol HFA 90 mcg/act inhaler Indications: Wheezing Inhale 2 puffs every 6 (six) hours if needed for wheezing or shortness of breath 18 g 05/01/2024 Active Start: 10-21-2023 End: 11-20-2023 take 2 [...] formoterol fumarate 0.0045 mg/actuat metered dose inhaler (5 sources) Corticosteroid, beta2-Adrenergic Agonist Start: 07-24-2024 End: 08-23-2024 take 2 puff(s) by inhalation in the morning budesonide-formoterol (Symbicort) 80-4.5 MCG/ACT inhaler Indications: Wheezing Inhale 2 puffs in the morning and 2 puffs before bedtime. Rinse mouth after use. 1 each 3 07/24/2024 08/23/2024 Active Start: 04-26-2024 End: 07-24-2024 take 2 puff(s) by inhalation in the morning budesonide-formoterol (Symbicort) 80-4.5 MCG/ACT inhaler Indications: Wheezing Inhale 2 puffs in the morning and 2 puffs before bedtime. Rinse mouth with water after use to reduce aftertaste and incidence of candidiasis. Do not swallow.. 10.2 g 2 04/26/2024 07/24/2024 Discontinued buprenorphine 8 mg / naloxone 2 mg [...] FILM SL Q24H April 13, 2023 12:00am busPIRone hydrochloride 5 mg oral tablet (1 source) Start: 2024 take 1 tablet by mouth every eight hours as needed busPIRone (Buspar) 5 MG tablet Take 5 mg by mouth every 8 (eight) hours if needed (anxiety) 07/10/2024 Active 1 ml carboprost 0.25 mg/ml injection (1 [...] 20 mg/ml oral suspension (1 source) Uncompetitive V-npetbh-J-aspartate Receptor Antagonist, Sigma-1 Agonist Start: 2020 End: [...] Central Nervous System Stimulant Start: 07-02-2023 End: 08-30-2024 take 1 capsule by mouth in the morning lisdexamfetamine (Vyvanse) 50 MG capsule Indications: ADHD (attention deficit hyperactivity disorder), combined type (CMS/HCC) Take 1 capsule (50 mg) by mouth in the morning. 30 capsule 07/31/2024 08/30/2024 Active Start: 01-11-2023 End: 05-26-2023 take 1 [...] Comment on above: [facility] With [facility] for 2 weeks . No other nsaids. Take 2 tablets by [facility] once daily for 14 days, THEN 1 tablet once daily for 14 days. With breakfast. Then stop. No other nsaids.. Take 4 tablets by mo [facility] once daily for 7 days, THEN 3 tablets once daily for 7 days, THEN 2 tablets once daily for 7 days, THEN 1 tablet once daily for 7 days. With breakfast. No other nsaids. Take 2 tablets by mo [facility] once daily for 5 days. Respiratory Therapy [...] 0.9 ml tocilizumab 180 mg/ml prefilled syringe (9 sources) Interleukin-6 Receptor Antagonist Start: 03-31-2024 tocilizumab (Actemra ) injection Inject 162 mg under the skin every 14 (fourteen) days 03/31/2024 Active Start: 03-31-2024 inject 162 mg by sub cutaneous injection every other week tocilizumab (ACTEMRA) 162 mg/0.9 mL subcutaneous injection Indications: Seropositive rheumatoid arthritis (HCC) Inject 162mg (1 syringe) subcutaneously every 2 weeks. 2 Each 3 03/31/2024 Active triamcinolone acetonide 0.001 mg/mg topical [...] 1 capsule by mouth once daily venlafaxine XR (Effexor XR) 150 MG 24 hr capsule Indications: Anxiety Take 1 capsule (150 mg) by mouth Daily 30 capsule 5 04/26/2024 Active Start: 10-04-2022 End: 05-26-2023 take 1 [...] Comment on above: Take 1 capsule by [facility] two times a week. (FOR EXAMPLE ONE CAPSULE ON WEDNESDAY AND ONE ON WEDNESDAY) FOR A TOTAL OF 6 WEEKS, WITH A MEAL Take 1 capsule by [facility] two times a week. (FOR EXAMPLE ONE [...] Comment on above: TAKE [address] [facility] 3 TIMES A DAY FOR ANXIETY leflunomide [...] Take 1 tablet by jude once daily. TAKE 1 TABLET BY JUDE EVERY DAY misoprostol (CYTOTEC) pre-split tablet TABS [...] first trimester] Onset: 9 11-24-2018 Mood disorders (20 sources) Mild depression; Translations: [Mild depression] Onset: 4 05-03-2023 Chronic Mycoses (1 source) Mycosis; Translations: [Yeast infection] Episodic Nutritional deficiencies (20 sources) Vitamin D deficiency; Translations: [Vitamin D deficiency, unspecified] Onset: 8 04-23-2017 Chronic Other aftercare (12 sources) Patient encounter status; Translations: [Encounter for therapeutic drug level monitoring] Episodic Other aftercare (2 sources) Taking high risk medication; Translations: [Other mcfp (current) drug therapy] Episodic Other connective tissue disease (5 sources) Synovitis; Translations: [Synovitis and tenosynovitis, unspecified] 10-22-2022 Episodic Other connective tissue disease (1 source) Pain in right foot; Translations: [Pain in right foot] 01-20-2023 Episodic Other ear and sense organ disorders (18 sources) Hearing loss in left ear; Translations: [Unspecified hearing loss, left ear] Onset: 4 05-03-2023 Chronic Other inflammatory condition of skin (18 sources) Psoriasis; Translations: [Psoriasis, unspecified] Onset: 4 03-11-2023 Chronic Other nervous system disorders (18 sources) Carpal tunnel syndrome; Translations: [Carpal tunnel [...] Episodic Attention-deficit, conduct, and disruptive behavior disorders (20 sources) Adult attention deficit hyperactivity disorder ; [...] peptide antibody positive] Onset: 12-30-2017 12-30-2017 Episodic Nausea and vomiting (20 sources) Nausea; Translations: [Nausea] Onset: 10-21-2023 10-21-2023 Episodic Other aftercare (1 source) Other long term acute care registered nurse (current) drug therapy; Translations: [OTH INTERMEDIATE CURRENT DRUG THERAPY] Onset: 10-08-2021 Episodic Other connective tissue disease (3 sources) Pain in left foot; Translations: [Pain in left foot] Onset: 10-07-2021 Episodic Other connective tissue disease (2 sources) Pain in left foot; Translations: [PAIN IN LEFT FOOT] Onset: 10-08-2021 Episodic Other lower respiratory disease (20 sources) Wheezing; Translations: [Wheezing] Onset: 10-21-2023 05-26-2023 Episodic Other non-traumatic joint disorders (14 sources) [...] conditions (not mental disorders or infectious disease) (13 sources) Other specified abnormal findings of blood chemistry; Translations: [Anti-cyclic citrullinated peptide antibody positive] Onset: 12-30-2017 12-19-2018 Episodic Other upper respiratory infections (20 sources) [...] Translations: [COUGH, UNSPECIFIED] Onset: 08-15-2021 Viral infection (18 sources) Human papilloma virus infection; Translations: [Papillomavirus as the cause of diseases classified elsewhere] Onset: 05-03-2023 05-03-2023 Episodic Results Test Name Value Interpretation Reference Range Facility [facility] 05-10-2024 [facility] Telephone (MARK) MEIANY L ([id number]) 1985 F Date Time Provider Department 05/10/24 CRAIG WADE During your visit today, we recorded the following information about you: Prema Santiago 05/10/2024 4:05 PM Signed Any is calling Craig Wade MD today to request her lab orders be faxed over to [facility] at Patient has been identified by name and birthdate. Duration of symptoms: N/A Person calling: self Call patient at: at home [phone] (home) [phone] (cell) Was an appointment scheduled: No Closing statement: Results or non-symptom based questions: Thank you for calling [facility], your call will be returned within the next business day. Craig Marmolejo MD 05/10/2024 4:27 PM Signed Labs were ordered in 03/2024. Thank you Shaheen Byrd MA 05/11/2024 7:12 AM Addendum fax provided is [facility] fax number, call to [facility] [place] for lab fax([phone]) and orders faxed as requested. Allergies As of Date: 05/10/2024 Noted Allergy Reaction AVSOLA (INFLIXIMAB-AXXQ) 10/22/2022 10 - Anaphylaxis Comments: Adverse reaction, chest tightness, shortness of breath and trouble breathing Date Reviewed: 03/31/2024 Reviewed by: Luz Melgoza MA - Fully Assessed Reason for Visit: Patient Request [[id number]] Prescriptions as of 05/11/2024 - VYVANSE 50 [...] Encounter Status:Closed by SHAHEEN BYRD on 05/11/24 [facility] CNOVon 03-31-2024 CNOV Office Visit (MARK ) ANY LUDWIG ([id number]) 1985 F Date Time Provider Department 03/31/24 1:40 PM CRAIG WADE During your visit today, we recorded the following information about you: Pulse Blood pressure Weight Height 77/minute 115/70 73.7 kg 1.6 m Craig Wdae MD 03/31/2024 3:23 PM Signed [facility] Date of Service: 03/31/2024 Patient: Any Ludwig Medical Record: [id number] Primary Care Physician: Tino Blake MD, MD [...] in 2012 by primary care physician in [place] however had not seen telemarketer until 2018. She had multiple joint swelling [...] to low G6PD Methotrexate prior to seeing telemarketer in 2018 did not help Actemra infusion [...] Current Outp (more content not included)... Normal [facility] MM TOMOSYNTHESIS SCREENING B Ion 03-23-2024 [facility] [address] [place] [address] Mammography Report Signed Patient: ANY LUDWIG MR#: [id number] : 1985 Acct:[id number] Age/Sex: 39 / F ADM Date: 03/23/24 Loc: MAMMO Attending Dr: Niya Santiago NP Ordering Physician: Niya Santiago NP Results: Date of Service: 03/23/24 Follow Up: Procedure(s): MM tomosynthesis screening BI Accession Number(s): [id number] cc: Niya Santiago NP Patient Name: ANY LUDWIG MR#: [id number] : 1985 Exam Date: 03/23/2024 Ordering Doctor: ANTHONY Santiago CNP RADIOLOGY REPORT PROCEDURE: MM TOMOSYNTHESIS SCREENING BI COMPARISON: None. INDICATIONS: Screening Calculator Name NCI Breast Cancer Risk Assessment Tool 5 Year Breast Cancer Risk 0.40% Lifetime Breast Cancer Risk 7.30% Personal Breast Cancer No Personal Ovarian Cancer No Treatments None Family Cancers None LOCATION: [facility] BREAST COMPOSITION: The breasts are heterogeneously [...] Signed By: 03/23/24 1626 DD/ 1624 TD/TT: Rn Oncology: [facility] Radiology, Radiologist, MD - 03/23/2024 [place] [address] Mammography Report Signed Patient: ANY LUDWIG MR#: [id number] : 1985 Acct:[id number] Age/Sex: 39 / F ADM Date: 03/23/24 Loc: MAMMO Attending Dr: Niya Santiago NP Ordering Physician: Niya Santiago NP Results: Date of Service: 03/23/24 Follow Up: Procedure(s): MM tomosynthesis screening BI Accession Number(s): [id number] cc: Niya Santiago NP Patient Name: ANY LUDWIG MR#: [id number] : 1985 Exam Date: 03/23/2024 Ordering Doctor: ANTHONY Santiago CNP RADIOLOGY REPORT PROCEDURE: MM TOMOSYNTHESIS SCREENING BI COMPARISON: None. INDICATIONS: Screening Calculator Name NCI Breast Cancer Risk Assessment Tool 5 Year Breast Cancer Risk 0.40% Lifetime Breast Cancer Risk 7.30% Personal Breast Cancer No Personal Ovarian Cancer No Treatments None Family Cancers None LOCATION: [facility] BREAST COMPOSITION: The breasts are heterogeneously [...] Signed By: 03/23/24 1626 DD/ 1624 TD/TT: Rn Oncology: [facility] Radiology Study observation (narrative) [facility] MM TOMOSYNTHESIS SCREENING B IOrdered By: Radiologist Radiology on 03-23-2024 [facility] Work Phone: IGP,APTIMA HPV,AGE GDLNon AGE GDLN ACOG TESTING Note . [facility] Comment on above: TESTS RESULT FLAG UN ITS REF RANGE LAB Clinician Provided Cytology Information Source.............Cervix;Endocervix No. of containers..01 ThinPrep Vial Age Algo ACOG Valentine... FLAG LEGEND: L-Low Normal,H-High Normal,LL-Alert Low,HH-Alert High <-Panic Low,>-Panic High,A-Abnormal,AA-Critical Abnormal Performed at: 01 =[address] [address] Francisca Stuart MD, HPV APTIMA Negative Negative [facility] Comment on above: This nucleic acid am plification test detects fourteen high- risk HPV types (16,18,31,33,35,39,45,51,52,56,58,59,66,68) without differentiation. Performed at: =[facility] [employer] [id number] Senior Analyst Developer: Francisca Stuart MD, Phone: [phone] Performed at: [facility] [id number] [place] [id number] Senior Analyst Developer: Farshad Cruz MD, Phone: [phone] IGP, APTIMA HPV, RFX 16/18,45 Note . [facility] Comment on above: TESTS RESULT FLAG UN ITS REF RANGE LAB DIAGNOSIS: 02 NEGATIVE FOR INTRAEPITHELIAL LESION OR MALIGNANCY. THIS SPECIMEN WAS RESCREENED PART OF OUR MANAGER COMMERCIAL PROGRAM. Specimen adequacy: 02 Satisfactory for evaluation. No endocervical component is identified. Performed by: 02 Aicha Hess, Patient Support Representative (ASC) QC reviewed by: 02 Joshua Ornelas Patient Support Representative (ASC) . 02 Note: Note 03 The Pap [...] High,A-Abnormal,AA-Critical Abnormal Performed at: 02 [facility] [address] [place] [address] Farshad Cruz MD, 03 WB [facility] [address] [address] Francisca Stuart MD, BROOM-ALONE CERVIX ENDOCERVIX [facility] 08-16-2023 ANTHONYN Telephone ([place]) ANY LUDWIG ([id number]) 1985 F Date Time Provider Department 08/16/23 FARIBA HILL During your visit today, we recorded the following information about you: Yessy Gonzalez RN 08/16/2023 3:33 PM Signed Pt scheduled for infusion 08/18/23. Noted pt in ED 6/22/24. Started on antibiotics for ear infection. Please [...] Date Reviewed: 06/07/2023 Reviewed by: Fariba Hill APRN.ASSEMBLY LINE LEADER - Fully Assessed Prescriptions as of 08/17/2023 [...] Encounter Status:Closed by DEVI WAGNER on 08/17/23 Normal [facility] CNCOon 06-28-2023 CNCO Letter Text [facility] CNPNon 06-25-2023 CNPN Telephone ([place]) ANY LUWDIG ([id number]) 1985 F Date Time Provider Department 06/25/23 FARIBA HILL During your visit today, we recorded the following information about you: Sergio OrtizYessy 06/25/2023 10:16 AM Signed Called and LMOM for patient to call the office back so we can get her rescheduled from her appointment and Infusion on 06/23/2023 that she cancel. Please warm transfer to [facility] Allergies As of Date: 06/25/2023 Noted Allergy Reaction AVSOLA (INFLIXIMAB-AXXQ) 10/22/2022 10 - Anaphylaxis Comments: Adverse reaction, chest tightness, shortness of breath and trouble breathing Date Reviewed: 06/07/2023 Reviewed by: Fariba Hill, REPAIRER MAINTENANCE BUILDING.ASSEMBLY LINE LEADER - Fully Assessed Prescriptions as of 06/25/2023 [...] Encounter Status:Closed by YESSY GALARZA on [facility]/25/23 [facility] SUN[facility] Telephone ([place]) ANY LUDWIG ([id number]) 1985 F Date Time Provider Department 05/28/23 [...] Status:Closed by KORIN PUGA on 05/28/23 Normal [facility] 25(OH)D3 SerPl-mCncon 2023 25-hydroxyvitamin D3 [Mass/Vol] 29.2 ng/mL Low 31.0-80.0 [facility] Comment on above: Order Comment: Speci men Type: BLOOD SPECIMENOrdering Facility: [facility] Address: [address] [place] [address] Performed By: #### 1 989-3 ####[facility] LABIA [id number] [place] [address] [place] ALT SerPl-cCncon 05-26-2023 ALT [Catalytic activity/Vol] 17 U/L Normal 7-38 [facility] Comment on above: Order Comment: Speci men Type: BLOOD SPECIMENOrdering Facility: [facility] Address: [address] [place] [address] Performed By: #### 1 742-6, 1919-09, CRE, 1987-06 ####[facility] LABCLIA [id number] [place] [address] [place] ALT/SGPTon 05-26-2023 ALT [Catalytic activity/Vol] 17 U/L 7 - 38 U/L [facility] AST SerPl-cCncon 05-26-2023 AST [Catalytic activity/Vol] 21 U/L Normal 13-35 [facility] Comment on above: Order Comment: Speci men Type: BLOOD SPECIMENOrdering Facility: [facility] Address: [address] [place] [address] Performed By: #### 1 742-6, 1919-09, CRET1, 1987-06 ####[facility] LABCLIA [id number] [place] [address] [place] AST/SGOT BLDon 05-26-2023 AST [Catalytic activity/Vol] 21 U/L 13 - 35 U/L [facility] C-REACTIVE PROTEIN (CRP)on 0 05-26-2023 CRP [Mass/Vol] <0.9 mg/dL [facility] CBC W Auto Differential pane l (Bld)on 05-26-2023 Basophils (Bld) [#/Vol] 0.04 10*3/uL <0.11 k/uL [facility] Basophils/100 WBC (Bld) 0.7 % [facility] Differential cell count method Nom (Bld) Auto [facility] Eosinophils (Bld) [#/Vol] 0.43 10*3/uL <0.46 k/uL [facility] Eosinophils/100 WBC (Bld) 7.3 % [facility] Erythrocyte distribution width (RBC) [Ratio] 14.0 % 11.5 - 15.0 % [facility] Hematocrit (Bld) [Volume fraction] 34.2 % Low 36.0 - 46.0 % [facility] Hemoglobin (Bld) [Mass/Vol] 11.2 g/dL Low 11.5 - 15.5 g/dL [facility] Immature granulocytes (Bld) [#/Vol] <0.10 k/uL [facility] Immature granulocytes/100 WBC (Bld) 0.2 % [facility] Lymphocytes (Bld) [#/Vol] 3.83 10*3/uL 1.00 - 4.00 k/uL [facility] Lymphocytes/100 WBC (Bld) 65.2 % [facility] MCH (RBC) [Entitic mass] 27.3 pg 26.0 - 34.0 pg [facility] MCHC (RBC) [Mass/Vol] 32.7 g/dL 30.5 - 36.0 g/dL [facility] MCV (RBC) [Entitic vol] 83.4 fL 80.0 - 100.0 fL [facility] Monocytes (Bld) [#/Vol] 0.36 10*3/uL <0.87 k/uL [facility] Monocytes/100 WBC (Bld) 6.1 % [facility] Neutrophils (Bld) [#/Vol] 1.20 10*3/uL Low 1.45 - 7.50 k/uL [facility] Neutrophils/100 WBC (Bld) 20.5 % [facility] Nucleated RBC (Bld) [#/Vol] <0.01 k/uL [facility] Nucleated RBC/100 WBC (Bld) [Ratio] 0.0 /100 WBC [facility] Platelet mean volume (Bld) [Entitic vol] 11.3 fL 9.0 - 12.7 fL [facility] Platelets (Bld) [#/Vol] 172 10*3/uL 150 - 400 k/uL [facility] RBC (Bld) [#/Vol] 4.10 10*6/uL 3.90 - 5.2 0 m/uL [facility] WBC (Bld) [#/Vol] 5.87 10*3/uL 3.70 - 11. 00 k/uL [facility] Basophils (Bld) [#/Vol] 0.04 10*3/uL Normal <0.11 [facility] Comment on above: Order Comment: Speci men Type: BLOOD SPECIMENOrdering Facility: [facility] Address: [address] [place] [address] Performed By: #### 5 7021-8, 4537-7 ####[facility] LABCLIA [id number] [place] [address] [place] Basophils/100 WBC (Bld) 0.7 % Normal [facility] Comment on above: Order Comment: Speci men Type: BLOOD SPECIMENOrdering Facility: [facility] Address: [address] [place] [address] Performed By: #### 5 7021-8, 4537-7 ####[facility] LABCLIA [id number] [place] [address] [place] Differential cell count method Nom (Bld) Auto Normal [facility] Comment on above: Order Comment: Speci men Type: BLOOD SPECIMENOrdering Facility: [facility] Address: [address] [place] [address] Performed By: #### 5 7021-8, 4537-7 ####[facility] LABCLIA [id number] [place] [address] [place] Eosinophils (Bld) [#/Vol] 0.43 10*3/uL Normal <0.46 [facility] Comment on above: Order Comment: Speci men Type: BLOOD SPECIMENOrdering Facility: [facility] Address: [address] [place] [address] Performed By: #### 5 7021-8, 4536-7 ####[facility] LABCLIA [id number] [place] [address] [place] Eosinophils/100 WBC (Bld) 7.3 % Normal [facility] Comment on above: Order Comment: Speci men Type: BLOOD SPECIMENOrdering Facility: [facility] Address: [address] [place] [address] Performed By: #### 5 7021-8, 4536-7 ####[facility] LABCLIA [id number] [place] [address] [place] Erythrocyte distribution width (RBC) [Ratio] 14.0 % Normal 11.5-15.0 [facility] Comment on above: Order Comment: Speci men Type: BLOOD SPECIMENOrdering Facility: [facility] Address: [address] [place] [address] Performed By: #### 5 7021-8, 4536-7 ####[facility] LABIA [id number] [place] [address] [place] Hematocrit (Bld) [Volume fraction] 34.2 % Low 36.0-46.0 [facility] Comment on above: Order Comment: Speci men Type: BLOOD SPECIMENOrdering Facility: [facility] Address: [address] [place] [address] Performed By: #### 5 7021-8, 7-7 ####[facility] LABCLIA [id number] [place] [address] [place] Hemoglobin (Bld) [Mass/Vol] 11.2 g/dL Low 11.5-15.5 [facility] Comment on above: Order Comment: Speci men Type: BLOOD SPECIMENOrdering Facility: [facility] Address: [address] [place] [address] Performed By: #### 5 7021-8, 7-7 ####[facility] LABCLIA [id number] [place] [address] [place] Immature granulocytes (Bld) [#/Vol] 10*3/uL Normal <0.10 [facility] Comment on above: Order Comment: Speci men Type: BLOOD SPECIMENOrdering Facility: [facility] Address: [address] [place] [address] Performed By: #### 5 7021-8, 4536-7 ####[facility] LABCLIA [id number] [place] [address] [place] Immature granulocytes/100 WBC (Bld) 0.2 % Normal [facility] Comment on above: Order Comment: Speci men Type: BLOOD SPECIMENOrdering Facility: [facility] Address: [address] [place] [address] Performed By: #### 5 7021-8, 4536-7 ####[facility] LABCLIA [id number] [place] [address] [place] Lymphocytes (Bld) [#/Vol] 3.83 10*3/uL Normal 1.00-4.00 [facility] [facility] Comment on above: Order Comment: Speci men Type: BLOOD SPECIMENOrdering Facility: [facility] Address: [address] [place] [address] Performed By: #### 5 7021-8, 4536-7 ####[facility] LABCLIA [id number] [place] [address] [place] Lymphocytes/100 WBC (Bld) 65.2 % Normal [facility] Comment on above: Order Comment: Speci men Type: BLOOD SPECIMENOrdering Facility: [facility] Address: [address] [place] [address] Performed By: #### 5 7021-8, 7-7 ####[facility] LABCLIA [id number] [place] [address] [place] MCH (RBC) [Entitic mass] 27.3 pg Normal 26.0-34.0 [facility] Comment on above: Order Comment: Speci men Type: BLOOD SPECIMENOrdering Facility: [facility] Address: [address] [place] [address] Performed By: #### 5 7021-8, 453-7 ####[facility] [id number] [place] [address] [place] MCHC (RBC) [Mass/Vol] 32.7 g/dL Normal 30.5-36.0 [facility] Comment on above: Order Comment: Speci men Type: BLOOD SPECIMENOrdering Facility: [facility] Address: [address] [place] [address] Performed By: #### 5 7021-8, 4536-7 ####[facility] [id number] [place] [address] [place] MCV (RBC) [Entitic vol] 83.4 fL Normal 80.0-100.0 [facility] Comment on above: Order Comment: Speci men Type: BLOOD SPECIMENOrdering Facility: [facility] Address: [address] [place] [address] Performed By: #### 5 7021-8, 4536-7 ####[facility] [id number] [place] [address] [place] Monocytes (Bld) [#/Vol] 0.36 10*3/uL Normal <0.87 [facility] Comment on above: Order Comment: Speci men Type: BLOOD SPECIMENOrdering Facility: [facility] Address: [address] [place] [address] Performed By: #### 5 7021-8, 4537-7 ####[facility] [id number] [place] [address] [place] Monocytes/100 WBC (Bld) 6.1 % Normal [facility] Comment on above: Order Comment: Speci men Type: BLOOD SPECIMENOrdering Facility: [facility] Address: [address] [place] [address] Performed By: #### 5 7021-8, 4536-7 ####[facility] LABCLIA [id number] [place] [address] [place] Neutrophils (Bld) [#/Vol] 1.20 10*3/uL Low 1.45-7.50 [facility] Comment on above: Order Comment: Speci men Type: BLOOD SPECIMENOrdering Facility: [facility] Address: [address] [place] [address] Performed By: #### 5 7021-8, 4536-7 ####[facility] LABCLIA [id number] [place] [address] [place] Neutrophils/100 WBC (Bld) 20.5 % Normal [facility] Comment on above: Order Comment: Speci men Type: BLOOD SPECIMENOrdering Facility: [facility] Address: [address] [place] [address] Performed By: #### 5 7021-8, 7 ####[facility] LABCLIA [id number] [place] [address] [place] Nucleated RBC (Bld) [#/Vol] 10*3/uL Normal <0.01 [facility] Comment on above: Order Comment: Speci men Type: BLOOD SPECIMENOrdering Facility: [facility] Address: [address] [place] [address] Performed By: #### 5 7021-8, 4536-7 ####[facility] LABCLIA [id number] [place] [address] [place] Nucleated RBC/100 WBC (Bld) [Ratio] 0.0 /100 WBC Normal [facility] Comment on above: Order Comment: Speci men Type: BLOOD SPECIMENOrdering Facility: [facility] Address: [address] [place] [address] Performed By: #### 5 7021-8, 4537-7 ####[facility] LABCLIA [id number] [place] [address] [place] Platelet mean volume (Bld) [Entitic vol] 11.3 fL Normal 9.0-12.7 [facility] Comment on above: Order Comment: Speci men Type: BLOOD SPECIMENOrdering Facility: [facility] Address: [address] [place] [address] Performed By: #### 5 7021-8, 4537-7 ####[facility] LABIA [id number] [place] [address] [place] Platelets (Bld) [#/Vol] 172 10*3/uL Normal 150-400 [facility] Comment on above: Order Comment: Speci men Type: BLOOD SPECIMENOrdering Facility: [facility] Address: [address] [place] [address] Performed By: #### 5 7021-8, 4537-7 ####[facility] LABIA [id number] [place] [address] [place] RBC (Bld) [#/Vol] 4.10 10*6/uL Normal 3.90-5.20 [facility] Comment on above: Order Comment: Speci men Type: BLOOD SPECIMENOrdering Facility: [facility] Address: [address] [place] [address] Performed By: #### 5 7021-8, 4537-7 ####[facility] LABIA [id number] [place] [address] [place] WBC (Bld) [#/Vol] 5.87 10*3/uL Normal 3.70-11.00 [facility] Comment on above: Order Comment: Speci men Type: BLOOD SPECIMENOrdering Facility: [facility] Address: [address] [place], [place] [address] [address] Performed By: #### 5 7021-8, 4537-7 ####[facility] EL [id number] [address] [id number] [address] [place] CNOVon 05-26-2023 CNOV Office Visit (EXPLOR ) ANY LUDWIG ([id number]) 1985 F Date Time Provider Department 05/26/23 1:45 PM SILVIA COOPER EXPLOR During your visit today, we recorded the following information about you: Temperature Pulse Blood pressure 97.5 degrees 65/minute 107/66 Silvia Cooper, [employer].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 Subjective Any Ludwig is a 38 year old female. This 38 year old female present sot [facility] with expiratory wheeze, was in infusions for [...] if neede (more content not included)... Normal [facility] CNOV Office Visit (MARK ) ANY LUDWIG ([id number]) 1985 F Date Time Provider Department 05/26/23 1:00 PM FARIBA HILL During your visit today, we recorded the following information about you: Fariba Hill APRN.CNP 06/07/2023 8:14 AM Signed FOLLOW UP VISIT-in person PCP: Tino Blake MD [address] [place] [address] Ms. Ludwig is a 38 year old [...] is planning to follow up with local telemarketer closer to home. Until she has her [...] unfortunate soci (more content not included)... Normal [facility] CREATININE BLDon 05-26-2023 Creatinine [Mass/Vol] 0.52 mg/dL Low 0.58 - 0.96 mg/dL [facility] Estimated Glomerular Filtration Rate 121 mL/min/1.73m >=60 mL/min/1.73m [facility] Creatinine [Mass/Vol] 0.52 mg/dL Low 0.58-0.96 [facility] Comment on above: Order Comment: Speci men Type: BLOOD SPECIMENOrdering Facility: [facility] Address: [address] [place] [address] Performed By: #### 1 742-6, 1919-09, CREDonnell, 1987-06 ####[facility] LABCLIA [id number] [place] [address] [place] Creatinine and Glomerular filtration rate.predicted panel (S/P/Bld) 121 mL/min/1.73m??? Normal >=60 [facility] Comment on above: Order Comment: Shaneka albina Type: BLOOD SPECIMENOrdering Facility: [facility] Address: [address] [place] [address] Result Comment: Polly mated Glomerular Filtration Rate [...] GFR. Performed By: #### 1 742-6, 1919-09, CREDonnell, 1987-06 ####[facility] LABIA [id number] [place] [address] [place] CRP SerPl-mCncon 05-26-2023 CRP [Mass/Vol] mg/L Normal <0.9 [facility] Comment on above: Order Comment: Shaneka albina Type: BLOOD SPECIMENOrdering Facility: [facility] Address: [address] [place] [address] Performed By: #### 1 742-6, 1919-09, CRET1, 1987-06 ####[facility] LABIA [id number] [place] [address] [place] ESR Westergren method (Bld) [Velocity]on 05-26-2023 ESR (Bld) [Velocity] 5 mm/h 0 - 20 mm/hr [facility] ESR (Bld) [Velocity] 5 mm/h Normal 0-20 [facility] Comment on above: Order Comment: Speci men Type: BLOOD SPECIMENOrdering Facility: [facility] Address: [address] [place] [address] Performed By: #### 5 7021-8, 4537-7 ####[facility] LABCLIA [id number] [address] [id number] [address] [place] [facility] VITAMIN D 25 HYDROXYon 05-25 25-hydroxyvitamin D3 [Mass/Vol] 29.2 ng/mL Low 31.0 - 80.0 ng/mL [facility] C-REACTIVE PROTEIN (CRP)on 1 CRP [Mass/Vol] 0.4 mg/dL <0.9 mg/dL [facility] CBC W Auto Differential pane l (Bld)on 11-27-2022 Basophils (Bld) [#/Vol] 0.05 10*3/uL <0.11 k/uL [facility] Basophils/100 WBC (Bld) 0.6 % [facility] Differential cell count method Nom (Bld) Auto [facility] Eosinophils (Bld) [#/Vol] 0.18 10*3/uL <0.46 k/uL [facility] Eosinophils/100 WBC (Bld) 2.3 % [facility] Erythrocyte distribution width (RBC) [Ratio] 13.7 % 11.5 - 15.0 % [facility] Hematocrit (Bld) [Volume fraction] 36.5 % 36.0 - 46.0 % [facility] Hemoglobin (Bld) [Mass/Vol] 11.7 g/dL 11.5 - 15.5 g/dL [facility] Immature granulocytes (Bld) [#/Vol] 0.09 10*3/uL <0.10 k/uL [facility] Immature granulocytes/100 WBC (Bld) 1.1 % [facility] Lymphocytes (Bld) [#/Vol] 3.92 10*3/uL 1.00 - 4.00 k/uL [facility] Lymphocytes/100 WBC (Bld) 49.2 % [facility] MCH (RBC) [Entitic mass] 26.8 pg 26.0 - 34.0 pg [facility] MCHC (RBC) [Mass/Vol] 32.1 g/dL 30.5 - 36.0 g/dL [facility] MCV (RBC) [Entitic vol] 83.7 fL 80.0 - 100.0 fL [facility] Monocytes (Bld) [#/Vol] 0.65 10*3/uL <0.87 k/uL [facility] Monocytes/100 WBC (Bld) 8.2 % [facility] Neutrophils (Bld) [#/Vol] 3.07 10*3/uL 1.45 - 7.50 k/uL [facility] Neutrophils/100 WBC (Bld) 38.6 % [facility] Nucleated RBC (Bld) [#/Vol] <0.01 k/uL [facility] Nucleated RBC/100 WBC (Bld) [Ratio] 0.0 /100 WBC [facility] Platelet mean volume (Bld) [Entitic vol] 10.5 fL 9.0 - 12.7 fL [facility] Platelets (Bld) [#/Vol] 328 10*3/uL 150 - 400 k/uL [facility] RBC (Bld) [#/Vol] 4.36 10*6/uL 3.90 - 5.2 0 m/uL [facility] WBC (Bld) [#/Vol] 7.96 10*3/uL 3.70 - 11. 00 k/uL [facility] Comprehensive metabolic 2000 panelon 11-27-2022 Albumin [Mass/Vol] 4.0 g/dL 3.9 - 4.9 g/dL [facility] ALP [Catalytic activity/Vol] 77 U/L 34 - 123 U/L [facility] ALT [Catalytic activity/Vol] 66 U/L High 7 - 38 U/L [facility] Anion gap [Moles/Vol] 11 mmol/L 9 - 18 mmol/L [facility] AST [Catalytic activity/Vol] 54 U/L High 13 - 35 U/L [facility] Bilirubin [Mass/Vol] 0.2 mg/dL 0.2 - 1 .3 mg/dL [facility] Calcium [Mass/Vol] 9.1 mg/dL 8.5 - 10. 2 mg/dL [facility] Chloride [Moles/Vol] 98 mmol/L 97 - 10 5 mmol/L [facility] CO2 [Moles/Vol] 24 mmol/L 22 - 30 mmol/L [facility] Creatinine [Mass/Vol] 0.48 mg/dL Low 0.58 - 0.96 mg/dL [facility] Estimated Glomerular Filtration Rate 125 mL/min/1.73m >=60 mL/min/1.73m [facility] Glucose [Mass/Vol] 72 mg/dL Low 74 - 99 mg/dL [facility] Potassium [Moles/Vol] 4.4 mmol/L 3.7 - 5.1 mmol/L [facility] Protein [Mass/Vol] 6.7 g/dL 6.3 - 8.0 g/dL [facility] Sodium [Moles/Vol] 133 mmol/L Low 136 - 144 mmol/L [facility] Urea nitrogen [Mass/Vol] 8 mg/dL 7 - 21 mg/dL [facility] ESR Westergren method (Bld) [Velocity]on 11-27-2022 ESR (Bld) [Velocity] 20 mm/h 0 - 20 mm/hr [facility] C-REACTIVE PROTEIN (CRP)on 0 10-22-2022 CRP [Mass/Vol] <0.9 mg/dL [facility] CBC W Auto Differential pane l (Bld)on 10-22-2022 Basophils (Bld) [#/Vol] 0.04 10*3/uL <0.11 k/uL [facility] Basophils/100 WBC (Bld) 0.6 % [facility] Differential cell count method Nom (Bld) Auto [facility] Eosinophils (Bld) [#/Vol] 0.11 10*3/uL <0.46 k/uL [facility] Eosinophils/100 WBC (Bld) 1.8 % [facility] Erythrocyte distribution width (RBC) [Ratio] 13.5 % 11.5 - 15.0 % [facility] Hematocrit (Bld) [Volume fraction] 36.9 % 36.0 - 46.0 % [facility] Hemoglobin (Bld) [Mass/Vol] 11.9 g/dL 11.5 - 15.5 g/dL [facility] Immature granulocytes (Bld) [#/Vol] <0.10 k/uL [facility] Immature granulocytes/100 WBC (Bld) 0.2 % [facility] Lymphocytes (Bld) [#/Vol] 3.08 10*3/uL 1.00 - 4.00 k/uL [facility] Lymphocytes/100 WBC (Bld) 49.3 % [facility] MCH (RBC) [Entitic mass] 26.7 pg 26.0 - 34.0 pg [facility] MCHC (RBC) [Mass/Vol] 32.2 g/dL 30.5 - 36.0 g/dL [facility] MCV (RBC) [Entitic vol] 82.9 fL 80.0 - 100.0 fL [facility] Monocytes (Bld) [#/Vol] 0.50 10*3/uL <0.87 k/uL [facility] Monocytes/100 WBC (Bld) 8.0 % [facility] Neutrophils (Bld) [#/Vol] 2.51 10*3/uL 1.45 - 7.50 k/uL [facility] Neutrophils/100 WBC (Bld) 40.1 % [facility] Nucleated RBC (Bld) [#/Vol] <0.01 k/uL [facility] Nucleated RBC/100 WBC (Bld) [Ratio] 0.0 /100 WBC [facility] Platelet mean volume (Bld) [Entitic vol] 11.5 fL 9.0 - 12.7 fL [facility] Platelets (Bld) [#/Vol] 235 10*3/uL 150 - 400 k/uL [facility] RBC (Bld) [#/Vol] 4.45 10*6/uL 3.90 - 5.2 0 m/uL [facility] WBC (Bld) [#/Vol] 6.25 10*3/uL 3.70 - 11. 00 k/uL [facility] Comprehensive metabolic 2000 panelon 10-22-2022 Albumin [Mass/Vol] 4.0 g/dL 3.9 - 4.9 g/dL [facility] ALP [Catalytic activity/Vol] 62 U/L 34 - 123 U/L [facility] ALT [Catalytic activity/Vol] 23 U/L 7 - 38 U/L [facility] Anion gap [Moles/Vol] 12 mmol/L 9 - 18 mmol/L [facility] AST [Catalytic activity/Vol] 22 U/L 13 - 35 U/L [facility] Bilirubin [Mass/Vol] 0.2 mg/dL 0.2 - 1 .3 mg/dL [facility] Calcium [Mass/Vol] 9.0 mg/dL 8.5 - 10. 2 mg/dL [facility] Chloride [Moles/Vol] 105 mmol/L 97 - 10 5 mmol/L [facility] CO2 [Moles/Vol] 20 mmol/L Low 22 - 30 mmol/L [facility] Creatinine [Mass/Vol] 0.52 mg/dL Low 0.58 - 0.96 mg/dL [facility] Estimated Glomerular Filtration Rate 122 mL/min/1.73m >=60 mL/min/1.73m [facility] Glucose [Mass/Vol] 101 mg/dL High 74 - 99 mg/dL [facility] Potassium [Moles/Vol] 3.9 mmol/L 3.7 - 5.1 mmol/L [facility] Protein [Mass/Vol] 6.7 g/dL 6.3 - 8.0 g/dL [facility] Sodium [Moles/Vol] 137 mmol/L 136 - 144 mmol/L [facility] Urea nitrogen [Mass/Vol] 9 mg/dL 7 - 21 mg/dL [facility] ESR Westergren method (Bld) [Velocity]on 10-22-2022 ESR (Bld) [Velocity] 20 mm/h 0 - 20 mm/hr [facility] Laboratory - Chemistry and C hemistry - challengeon 10-22-2022 Urate [Mass/Vol] 5.2 mg/dL 2.5 - 6.6 mg/dL [facility] VITAMIN D 25 HYDROXYon 10-22 25-hydroxyvitamin D3 [Mass/Vol] 46.8 ng/mL 31.0 - 80.0 ng/mL [facility] CBC W Auto Differential pane l (Bld)on 06-23-2022 Basophils (Bld) [#/Vol] 0.07 10*3/uL <0.11 k/uL [facility] Basophils/100 WBC (Bld) 1.4 % [facility] Differential cell count method Nom (Bld) Auto [facility] Eosinophils (Bld) [#/Vol] 0.27 10*3/uL <0.46 k/uL [facility] Eosinophils/100 WBC (Bld) 5.3 % [facility] Erythrocyte distribution width (RBC) [Ratio] 12.8 % 11.5 - 15.0 % [facility] Hematocrit (Bld) [Volume fraction] 33.5 % Low 36.0 - 46.0 % [facility] Hemoglobin (Bld) [Mass/Vol] 11.0 g/dL Low 11.5 - 15.5 g/dL [facility] Immature granulocytes (Bld) [#/Vol] 0.05 10*3/uL <0.10 k/uL [facility] Immature granulocytes/100 WBC (Bld) 1.0 % [facility] Lymphocytes (Bld) [#/Vol] 2.55 10*3/uL 1.00 - 4.00 k/uL [facility] Lymphocytes/100 WBC (Bld) 50.2 % [facility] MCH (RBC) [Entitic mass] 28.2 pg 26.0 - 34.0 pg [facility] MCHC (RBC) [Mass/Vol] 32.8 g/dL 30.5 - 36.0 g/dL [facility] MCV (RBC) [Entitic vol] 85.9 fL 80.0 - 100.0 fL [facility] Monocytes (Bld) [#/Vol] 0.32 10*3/uL <0.87 k/uL [facility] Monocytes/100 WBC (Bld) 6.3 % [facility] Neutrophils (Bld) [#/Vol] 1.82 10*3/uL 1.45 - 7.50 k/uL [facility] Neutrophils/100 WBC (Bld) 35.8 % [facility] Nucleated RBC (Bld) [#/Vol] <0.01 k/uL [facility] Nucleated RBC/100 WBC (Bld) [Ratio] 0.0 /100 WBC [facility] Platelet mean volume (Bld) [Entitic vol] 11.6 fL 9.0 - 12.7 fL [facility] Platelets (Bld) [#/Vol] 201 10*3/uL 150 - 400 k/uL [facility] RBC (Bld) [#/Vol] 3.90 10*6/uL 3.90 - 5.2 0 m/uL [facility] WBC (Bld) [#/Vol] 5.08 10*3/uL 3.70 - 11. 00 k/uL [facility] ESR Westergren method (Bld) [Velocity]on 06-23-2022 ESR (Bld) [Velocity] 15 mm/h 0 - 20 mm/hr [facility] C-REACTIVE PROTEIN (CRP)on 0 02-24-2022 CRP [Mass/Vol] 0.6 mg/dL <0.9 mg/dL [facility] CBC W Auto Differential pane l (Bld)on 02-24-2022 Basophils (Bld) [#/Vol] 0.05 10*3/uL <0.11 k/uL [facility] Basophils/100 WBC (Bld) 0.8 % [facility] Differential cell count method Nom (Bld) Auto [facility] Eosinophils (Bld) [#/Vol] 0.28 10*3/uL <0.46 k/uL [facility] Eosinophils/100 WBC (Bld) 4.6 % [facility] Erythrocyte distribution width (RBC) [Ratio] 12.4 % 11.5 - 15.0 % [facility] Hematocrit (Bld) [Volume fraction] 37.1 % 36.0 - 46.0 % [facility] Hemoglobin (Bld) [Mass/Vol] 12.3 g/dL 11.5 - 15.5 g/dL [facility] Immature granulocytes (Bld) [#/Vol] <0.10 k/uL [facility] Immature granulocytes/100 WBC (Bld) 0.3 % [facility] Lymphocytes (Bld) [#/Vol] 3.03 10*3/uL 1.00 - 4.00 k/uL [facility] Lymphocytes/100 WBC (Bld) 49.7 % [facility] MCH (RBC) [Entitic mass] 28.7 pg 26.0 - 34.0 pg [facility] MCHC (RBC) [Mass/Vol] 33.2 g/dL 30.5 - 36.0 g/dL [facility] MCV (RBC) [Entitic vol] 86.5 fL 80.0 - 100.0 fL [facility] Monocytes (Bld) [#/Vol] 0.49 10*3/uL <0.87 k/uL [facility] Monocytes/100 WBC (Bld) 8.0 % [facility] Neutrophils (Bld) [#/Vol] 2.23 10*3/uL 1.45 - 7.50 k/uL [facility] Neutrophils/100 WBC (Bld) 36.6 % [facility] Nucleated RBC (Bld) [#/Vol] <0.01 k/uL [facility] Nucleated RBC/100 WBC (Bld) [Ratio] 0.0 /100 WBC [facility] Platelet mean volume (Bld) [Entitic vol] 11.0 fL 9.0 - 12.7 fL [facility] Platelets (Bld) [#/Vol] 224 10*3/uL 150 - 400 k/uL [facility] RBC (Bld) [#/Vol] 4.29 10*6/uL 3.90 - 5.2 0 m/uL [facility] WBC (Bld) [#/Vol] 6.10 10*3/uL 3.70 - 11. 00 k/uL [facility] Comprehensive metabolic 2000 panelon 02-24-2022 Albumin [Mass/Vol] 4.0 g/dL 3.9 - 4.9 g/dL [facility] ALP [Catalytic activity/Vol] 89 U/L 34 - 123 U/L [facility] ALT [Catalytic activity/Vol] 18 U/L 7 - 38 U/L [facility] Anion gap [Moles/Vol] 12 mmol/L 9 - 18 mmol/L [facility] AST [Catalytic activity/Vol] 27 U/L 13 - 35 U/L [facility] Bilirubin [Mass/Vol] Low 0.2 - 1 .3 mg/dL [facility] Calcium [Mass/Vol] 9.0 mg/dL 8.5 - 10. 2 mg/dL [facility] Chloride [Moles/Vol] 102 mmol/L 97 - 10 5 mmol/L [facility] CO2 [Moles/Vol] 22 mmol/L 22 - 30 mmol/L [facility] Creatinine [Mass/Vol] 0.46 mg/dL Low 0.58 - 0.96 mg/dL [facility] Estimated Glomerular Filtration Rate 126 mL/min/1.73m >=60 mL/min/1.73m [facility] Glucose [Mass/Vol] 87 mg/dL 74 - 99 mg/dL [facility] Potassium [Moles/Vol] 3.7 mmol/L 3.7 - 5.1 mmol/L [facility] Protein [Mass/Vol] 6.7 g/dL 6.3 - 8.0 g/dL [facility] Sodium [Moles/Vol] 136 mmol/L 136 - 144 mmol/L [facility] Urea nitrogen [Mass/Vol] 7 mg/dL 7 - 21 mg/dL [facility] ESR Westergren method (Bld) [Velocity]on 02-24-2022 ESR (Bld) [Velocity] 29 mm/h High 0 - 20 mm/hr [facility] VITAMIN D 25 HYDROXYon 01-05 25-hydroxyvitamin D3 [Mass/Vol] 50.7 ng/mL 31.0 - 80.0 ng/mL [facility] Covid-19 PCR (CVDTBH)on 09-22 SARS-CoV-2 (COVID-19) RNA KARAN+probe Ql (Unsp spec) Not detected Normal NOT DETECTED [facility] [facility] Comment on above: Result Comment: When [...] for this test is supported by the [place] of Health and Human Service's declaration that [...] used). Performed By: #### C VDTBH #### [facility] [address] [place] [address] Dr. Funmi Bosch GROUP A STREP CULTUREon 09-22 S. pyogenes Ag Ql (Unsp spec) Culture Observations: NEGATIVE FOR GROUP A STREPTOCOCCUS. Normal The [facility] Comment on above: Performed By: #### G RASTCX, SSCRN #### [facility] [address] [place] [address] Dr. Funmi Bosch STREPT SCREENon 10-07-2021 STREP SCREEN A Negative Normal NEGATIVE The [facility] Comment on above: Performed By: #### G RASTCX, SSCRN #### [facility] [address] [place] [address] Dr. Funmi Bosch BUPERNORPHINE CONFIRMATION, URINEon 09-14-2021 Buprenorphine Positive Abnormal The [facility] Comment on above: Result Comment: Conf irmation performed by Mass Spectrometry Performed By: #### B UPCON #### [facility] [address] [place] [address] Dr. Funmi Bosch Buprenorphine Confirm 1071 ng/mL Normal Cutoff=10 [facility] Comment on above: Performed By: #### B UPCON #### [facility] [address] [address] [address] Funmi Bosch Norbuprenorphine Positive Abnormal The [facility] Comment on above: Performed By: #### B UPCON #### [facility] [address] [place] [address] Dr. Funmi Bosch Norbuprenorphine Confirm >2000 Normal Cutoff=10 [facility] Comment on above: Performed By: #### B UPCON #### [facility] [address] [place] [address] Dr. Funmi Bosch CBC AUTO DIFFon 09-04-2021 BASO # 0.0 103/ul Normal 0.0-0.1 [facility] Comment on above: Performed By: #### C BC #### [facility] [address] [place] [address] Dr. Funmi Bosch Basophils/100 WBC (Bld) 0.3 % Normal 0.2-2.0 [facility] Comment on above: Performed By: #### C BC #### [facility] [address] [place] [address] Dr. Funmi Bosch EO # 0.1 103/ul Normal 0.0-0.7 [facility] Comment on above: Performed By: #### C BC #### [facility] [address] [place] [address] Dr. Funmi Bosch Eosinophils/100 WBC (Bld) 0.6 % Critically low 0.9-7.0 [facility] Comment on above: Performed By: #### C BC #### [facility] [address] [place] [address] Dr. Funmi Bosch Erythrocyte distribution width (RBC) [Ratio] 13.4 % Normal 11.0-15.0 [facility] Comment on above: Performed By: #### C BC #### [facility] [address] [place] [address] Dr. Funmi Bosch Hematocrit (Bld) [Volume fraction] 35.2 % Critically low 36.0-48.0 [facility] Comment on above: Performed By: #### C BC #### [facility] [address] [place] [address] Dr. Funmi Bosch Hemoglobin (Bld) [Mass/Vol] 12.4 g/dL Normal 12.0-16.0 [facility] Comment on above: Performed By: #### C BC #### [facility] [address] [place] [address] Dr. Funmi Bosch IG # 0.04 10e3/ul Critically high 0.00-0.03 [facility] Comment on above: Performed By: #### C BC #### [facility] [address] [place] [address] Dr. Funmi Bosch IG % 0.3 % Normal 0.0-0.5 [facility] Comment on above: Performed By: #### C BC #### [facility] [address] [place] [address] Dr. Funmi Bosch LYMPH # 5.2 103/ul Critically high 1.2-3.[address] [facility] Comment on above: Performed By: #### C BC #### [facility] [address] [place] [address] Dr. Funmi Bosch Lymphocytes/100 WBC (Bld) 41.7 % Normal 20.5-60.0 [facility] Comment on above: Performed By: #### C BC #### [facility] [address] [place] [address] Dr. Funmi Bosch MANUAL DIFF REQ NO Normal The [facility] Comment on above: Performed By: #### C BC #### [facility] [address] [place] [address] Dr. Funmi Bosch MCH (RBC) [Entitic mass] 30.1 pg Normal 26.7-34.0 [facility] Comment on above: Performed By: #### C BC #### [facility] [address] [address] [address] Funmi Bosch MCHC (RBC) [Mass/Vol] 35.2 g/dL Normal 29.9-35.2 [facility] Comment on above: Performed By: #### C BC #### [facility] [address] [address] [address] Funmi Bosch MCV (RBC) [Entitic vol] 85.4 fL Normal 81.0-99.0 [facility] Comment on above: Performed By: #### C BC #### [facility] [address] [place] [address] Dr. Funmi Bosch MONO # 0.8 103/ul Normal 0.3-0.8 [facility] Comment on above: Performed By: #### C BC #### [facility] [address] [place] [address] Dr. Funmi Bosch Monocytes/100 WBC (Bld) 6.8 % Normal 1.7-12.0 [facility] Comment on above: Performed By: #### C BC #### [facility] [address] [place] [address] Dr. Funmi Bosch NEUT # 6.3 103/ul Normal 1.4-6.5 [facility] Comment on above: Performed By: #### C BC #### [facility] [address] [place] [address] Dr. Funmi Bosch Neutrophils/100 WBC (Bld) 50.3 % Normal 43.0-75.0 [facility] Comment on above: Performed By: #### C BC #### [facility] [address] [address] [address] Funmi Bosch Platelet mean volume (Bld) [Entitic vol] 9.9 fL Normal 9.5-13.5 [facility] Comment on above: Performed By: #### C BC #### [facility] [address] [place] [address] Dr. Funmi Bosch PLT 275 103/ul Normal 150-450 [facility] Comment on above: Performed By: #### C BC #### [facility] [address] [address] [address] Funmi Bosch RBC 4.12 106/ul Critically low 4.20-5.[address] [facility] Comment on above: Performed By: #### C BC #### [facility] [address] [place], [place] [address] Dr. Funmi Bosch WBC 12.4 103/ul Critically high 4.0-11.0 [facility] Comment on above: Performed By: #### C BC #### [facility] [address] [address] [address] Funmi Bosch PREG QUANT HCGon 09-04-2021 HCG QUANT <1 Normal [facility] Comment on above: Performed By: #### P REGQNT #### [facility] [address] [address] [address] Funmi Bosch HCG RANGE SEE BELOW Normal [facility] Comment on above: Result Comment: 5-50 0-1 WEEK 40-300 1-2 WEEKS 100-1,000 2-3 WEEKS 500-6,000 3-4 WEEKS 5,000-200,000 1-2 MONTHS 10,000-100,000 2-3 MONTHS 3,000-50,000 2ND TRIMESTER 1,000-50,000 3RD TRIMESTER Performed By: #### P REGQNT #### [facility] [address] [address] [address] Funmi Bosch HCG QUAL UR B/Oon 09-03-2021 status Negative neg - pos [facility] Quality Check Yes [facility] Covid-19 PCR (CVDTBH)on 08-22 SARS-CoV-2 (COVID-19) RNA KARAN+probe Ql (Unsp spec) Not detected Normal NOT DETECTED [facility] Comment on above: Result Comment: This test is not yet approved or cleared by the [place] FDA. When there are no FDA-approved or cleared tests available, and other criteria are met, FDA can make tests available under an emergency access mechanism called an Emergency Use Authorization (EUA). The EUA for this test is supported by the [place] of Health and Human Service's (HHS's) declaration [...] SARS-CoV-2. Performed By: #### C VDTBH #### [facility] [address] [place] [address] Dr. Funmi Bosch DRUG SCREEN RAPID (URINE)on 09-02-2021 AMP Negative Normal NEGATIVE [facility] Comment on above: Performed By: #### C VDTBH #### [facility] [address] [place] [address] Dr. Funmi Bosch BAR Negative Normal NEGATIVE [facility] Comment on above: Performed By: #### C VDTBH #### [facility] [address] [place] [address] Dr. Funmi Bosch BUP Positive Abnormal NEGATIVE [facility] Comment on above: Performed By: #### C VDTBH #### [facility] [address] [place] [address] Dr. Funmi Bosch BZO Negative Normal NEGATIVE [facility] Comment on above: Performed By: #### C VDTBH #### [facility] [address] [place] [address] Dr. Funmi Bosch LALA Negative Normal NEGATIVE [facility] Comment on above: Performed By: #### C VDTBH #### [facility] [address] [place] [address] Dr. Funmi Bosch CUT-OFFS SEE BELOW Normal [facility] Comment on above: Result Comment: AMP (Amphetamine): 500ng/mL, BAR (Barbituates): 200 ng/mL, BZO (Benzodiazepines): 150 ng/mL, BUP (Buprenorphine): 10 ng/mL, LALA (Cocaine): 150 ng/mL, mAMP (Methamphetamine): 500 ng/mL, MTD (Methadone): 200 ng/mL, OPI (Opiates): 100 ng/mL, OXY (Oxycodone): 100 ng/mL, PCP (Phencyclidine): 25 ng/mL, PPX (Propoxyphene): 300 ng/mL, THC (Cannabinoids): 50 ng/mL, TCA (Trycyclic Antidepressants): 300 ng/mL Performed By: #### C VDTBH #### [facility] [address] [place] [address] Dr. Funmi Bosch DRUG CUT HEADER DRUG CLASS TEST SYSTEM CUT-OFF CONCENTRATIONS ARE FOLLOWS: Normal [facility] Comment on above: Performed By: #### C VDTBH #### [facility] [address] [place] [address] Dr. Funmi Bosch mAMP Negative Normal NEGATIVE [facility] Comment on above: Performed By: #### C VDTBH #### [facility] [address] [place] [address] Dr. Funmi Bosch MTD Negative Normal NEGATIVE [facility] Comment on above: Performed By: #### C VDTBH #### [facility] [address] [place] [address] Dr. Funmi Bosch OPI Negative Normal NEGATIVE [facility] Comment on above: Performed By: #### C VDTBH #### [facility] [address] [place] [address] Dr. Funmi Bosch OXY Negative Normal NEGATIVE [facility] Comment on above: Performed By: #### C VDTBH #### [facility] [address] [place] [address] Dr. Funmi Bosch PCP Negative Normal NEGATIVE [facility] Comment on above: Performed By: #### C VDTBH #### [facility] [address] [place] [address] Dr. Funmi Bosch PPX Negative Normal NEGATIVE [facility] Comment on above: Performed By: #### C VDTBH #### [facility] [address] [place] [address] Dr. Funmi Bosch TCA Negative Normal NEGATIVE [facility] Comment on above: Performed By: #### C VDTBH #### [facility] [address] [place] [address] Dr. Funmi Bosch THC Negative Normal NEGATIVE [facility] Comment on above: Performed By: #### C VDTBH #### [facility] [address] [place] [address] Dr. Funmi Bosch Covid-19 PCR ([facility])on 07-24 SARS-CoV-2 (COVID-19) RNA KARAN+probe Ql (Unsp spec) Not detected Normal NOT DETECTED [facility] Comment on above: Result Comment: This test is not yet approved or cleared by the [place] FDA. When there are no FDA-approved or cleared tests available, and other criteria are met, FDA can make tests available under an emergency access mechanism called an Emergency Use Authorization (EUA). The EUA for this test is supported by the [place] of Health and Human Service's (HHS's) declaration [...] SARS-CoV-2. Performed By: #### C VDTBH #### [facility] [address] [place] [address] Dr. Funmi Bosch GROUP A STREP CULTUREon 07-24 S. pyogenes Ag Ql (Unsp spec) Culture Observations: NEGATIVE FOR GROUP A STREPTOCOCCUS. Normal [facility] Comment on above: Performed By: #### C VDTBH #### [facility] [address] [place] [address] Dr. Funmi Bosch STREPT SCREENon 08-15-2021 STREP SCREEN A Negative Normal NEGATIVE [facility] Comment on above: Performed By: #### C VDTBH #### [facility] [address] [place] [address] Dr. Funmi Bosch XR CHEST 1 Von [...] by: RIMMA REIS Date: 2021-08-15 18:25 Normal [facility] HCG QUAL UR B/Oon 08-06-2021 status Negative neg - pos [facility] Quality Check Yes [facility] HCG QUAL UR B/Oon 07-23-2021 status Negative neg - pos [facility] Quality Check Yes [facility] XR CHEST (2 VW)on 09-15-2020 XR CHEST [...] Tashi Baptiste MD 09/15/20 Final result Normal [facility] XR CHEST (2 VW)Ordered By: [place] Caro on 09-15-2020 Possible interstitia l infiltrates. Probable small airways disease. [employer] Phone: EXAMINATION: TWO XRA Y VIEWS OF THE CHEST 09/15/2020 5:40 pm COMPARISON: None. HISTORY: ORDERING SYSTEM PROVIDED HISTORY: productive cough, wheezing TECHNOLOGIST PROVIDED HISTORY: productive cough, wheezing FINDINGS: Lungs are hyperaerated. Possible patchy bilateral interstitial infiltrates. Heart and mediastinum normal. Bony thorax intact. [employer] Phone: Kurt, Mh[employer] Incoming Radiant Results From [employer] - 09/15/2020 6:20 PM EDT EXAMINATION: TWO XRAY VIEWS OF THE CHEST 09/15/2020 5:40 pm COMPARISON: None. HISTORY: ORDERING SYSTEM PROVIDED HISTORY: productive cough, wheezing TECHNOLOGIST PROVIDED HISTORY: productive cough, wheezing FINDINGS: Lungs are hyperaerated. Possible patchy bilateral interstitial infiltrates. Heart and mediastinum normal. Bony thorax intact. IMPRESSION: Possible interstitial infiltrates. Probable small airways disease. [facility] Work Phone: [facility] Work Phone: CBC auto differentialon 06-22 Basophils (Bld) [#/Vol] 0.03 10*3/uL [place] Basophils/100 WBC (Bld) 0 % 0 - 2 % [place] Differential Type NOT REPORTED [place] Eosinophils (Bld) [#/Vol] 0.16 10*3/uL [place] Eosinophils/100 WBC (Bld) 1 % 1 - 4 % [place] Erythrocyte distribution width (RBC) [Ratio] 14.3 % 11.8 - 14.4 % [place] Hematocrit (Bld) [Volume fraction] 35.7 % Low 36.3 - 47.1 % [place] Hemoglobin (Bld) [Mass/Vol] 11.6 g/dL Low 11.9 - 15.1 g/dL [place] Immature granulocytes (Bld) [#/Vol] 2 % High 0 [place] Immature granulocytes (Bld) [#/Vol] 0.27 10*3/uL [place] Interpretation and review of laboratory results Abnormal [place] Lymphocytes (Bld) [#/Vol] 3.65 10*3/uL [place] Lymphocytes/100 WBC (Bld) 26 % 24 - 43 % [place] MCH (RBC) [Entitic mass] 28.3 pg 25.2 - 33.5 pg [place] MCHC (RBC) [Mass/Vol] 32.5 g/dL 28.4 - 34.8 g/dL [place] MCV (RBC) [Entitic vol] 87.1 fL 82.6 - 102.9 fL [place] Monocytes (Bld) [#/Vol] 0.97 10*3/uL [facility], [place] Monocytes/100 WBC (Bld) 7 % 3 - 12 % [place] Platelet mean volume (Bld) [Entitic vol] 10.3 fL 8.1 - 13.5 fL [place] Platelets (Bld) [#/Vol] NOT REPORTED [place] Platelets (Bld) [#/Vol] 349 10*3/uL [place] RBC (Bld) [#/Vol] 4.10 10*6/uL 3.95 - 5.1 1 m/uL [place] RBC morphology finding Nom (Bld) NOT REPORTED [place] Segmented neutrophils/100 WBC (Bld) 64 % 36 - 65 % [place] Segs Absolute 8.80 High [place] WBC (Bld) [#/Vol] 13.9 10*3/uL [place] WBC (Bld) [#/Vol] 0.0 10*3/uL 0.0 per 10 0 WBC [place] WBC Morphology NOT REPORTED [place] DRUG SCREEN MULTI URINEon Amphetamine Screen, Ur Negative NEGATIVE [place] Barbiturate Screen, Ur Negative NEGATIVE [place] Benzodiazepine Screen, Urine Negative NEGATIVE [place] Buprenorphine Urine Negative NEGATIVE [place] Cannabinoid Scrn, Ur Negative NEGATIVE [facility], [place] Cocaine Metabolite, Urine Negative NEGATIVE [place] MDMA, Urine NOT REPORTED NEGATIVE [facility], [place] Methadone Screen, Urine Negative NEGATIVE [facility], [place] Methamphetamine, Urine Negative NEGATIVE [facility], [place] Opiates, Urine Negative NEGATIVE [place] Oxycodone Screen, Ur Negative NEGATIVE [place] Phencyclidine, Urine Negative NEGATIVE [place] Propoxyphene, Urine Negative NEGATIVE [place] Test Information NOT REPORTED [place] Tricyclic Antidepressants, Urine Negative NEGATIVE [place] Comment on above: Drug screen results are to be used for medical purposes only. All positive results are unconfirmed. Testing for employment or legal uses should be sent to a reference laboratory for confirmation. Glucose tolerance, 1 houron 05-01-2019 GLU ADMN Glucola [place] Glucose tolerance screen 50g 116 mg/dL 70 - 135 mg/dL [facility] [place] Hemoglobinon 05-01-2019 Hemoglobin (Bld) [Mass/Vol] 11.0 g/dL Low 11.9 - 15.1 g/dL [facility] [place] Interpretation and review of laboratory results Abnormal [place] Rapid Influenza A/B Antigens on 04-04-2019 Direct Exam INFLUENZA TEST INVALID BY OUR TESTING METHOD. WILL BE SENT FOR CONFIRMATORY TESTING. [employer] Phone: Special Requests NOT REPORTED [employer] Phone: Specimen Description .NASOPHARYNGEAL SWAB [employer] Phone: TYPE AND SCREENon 1 ABO/Rh Negative [place] Antibody ID Anti-D, Passive Due To RhIG [place] Urine Drug Screen, Comprehen siveon 12-19-2018 Amphetamine Screen, Ur Negative NEGATIVE [facility], [place] Barbiturate Screen, Ur Negative NEGATIVE [facility] Benzodiazepine Screen, Urine Negative NEGATIVE [facility], [place] Buprenorphine Urine Negative NEGATIVE [facility], [place] Cannabinoid Scrn, Ur Negative NEGATIVE [facility], [place] Cocaine Metabolite, Urine Negative NEGATIVE [facility], [place] MDMA, Urine NOT REPORTED [facility]GATIVE [facility] [place] [place] Methadone Screen, Urine Negative NEGATIVE [facility], [place] Methamphetamine, Urine Negative NEGATIVE [facility], [place] Opiates, Urine Negative NEGATIVE [facility] [place], [place] Oxycodone Screen, Ur Negative NEGATIVE [facility] [place], [place] Phencyclidine, Urine Negative NEGATIVE [facility], [place] Propoxyphene, Urine Negative NEGATIVE [facility], [place] Test Information NOT REPORTED [facility], [place] Tricyclic Antidepressants, Urine Negative NEGATIVE [facility], [place] Comment on above: Drug screen results are to be used for medical purposes only. All positive results are unconfirmed. Testing for employment or legal uses should be sent to a reference laboratory for confirmation. ABO/RHon 12-03-2018 ABO/Rh Negative [place] CBCon 12-03-2018 Erythrocyte distribution width (RBC) [Ratio] 15.5 % High 11.8 - 14.4 % [place] Hematocrit (Bld) [Volume fraction] 32.8 % Low 36.3 - 47.1 % [place] Hemoglobin (Bld) [Mass/Vol] 10.5 g/dL Low 11.9 - 15.1 g/dL [place] Interpretation and review of laboratory results Abnormal [place] MCH (RBC) [Entitic mass] 27.1 pg 25.2 - 33.5 pg [place] MCHC (RBC) [Mass/Vol] 32.0 g/dL 28.4 - 34.8 g/dL [place] MCV (RBC) [Entitic vol] 84.8 fL 82.6 - 102.9 fL [place] Platelet mean volume (Bld) [Entitic vol] 10.6 fL 8.1 - 13.5 fL [place] Platelets (Bld) [#/Vol] 230 10*3/uL [place] RBC (Bld) [#/Vol] 3.87 10*6/uL Low 3.95 - 5.1 1 m/uL [place] WBC (Bld) [#/Vol] 0.0 10*3/uL 0.0 per 10 0 WBC [place] WBC (Bld) [#/Vol] 10.3 10*3/uL [place] Comprehensive Metabolic Pane miriam 12-03-2018 Albumin [Mass/Vol] 3.7 g/dL 3.5 - 5.2 g/dL [place] Albumin/Globulin [Mass ratio] 1.2 {ratio} [place] ALP [Catalytic activity/Vol] 64 U/L 35 - 104 U/L [place] ALT [Catalytic activity/Vol] 11 U/L 5 - 33 U/L [place] Anion gap [Moles/Vol] 15 mmol/L 9 - 17 mmol/L [place] AST [Catalytic activity/Vol] 17 U/L <32 [place] Bilirubin Ql (U) <0.10 Low 0.3 - 1.2 mg/dL [place] Bun/Cre Ratio 21 High [place] Calcium [Mass/Vol] 9.5 mg/dL 8.6 - 10. 4 mg/dL [place] Chloride [Moles/Vol] 97 mmol/L Low 98 - 10 7 mmol/L [place] CO2 [Moles/Vol] 21 mmol/L 20 - 31 mmol/L [place] Creatinine [Mass/Vol] 0.47 mg/dL Low 0.5 - 0.9 mg/dL [place] GFR >60 >60 mL/min [place] GFR Non- >60 >60 mL/min [place] Glucose [Mass/Vol] 104 mg/dL High 70 - 99 mg/dL [place] Interpretation and review of laboratory results Abnormal [place] Potassium [Moles/Vol] 3.5 mmol/L Low 3.7 - 5.3 mmol/L [place] Protein [Mass/Vol] 6.8 g/dL 6.4 - 8.3 g/dL [place] Sodium [Moles/Vol] 133 mmol/L Low 135 - 144 mmol/L [place] Urea nitrogen [Mass/Vol] 10 mg/dL 6 - 20 mg/dL [place] Metabolic Panelon 12-03-2018 GFR/1.73 sq M predicted among non-blacks MDRD (S/P/Bld) [Vol rate/Area] [place] Comment on above: Stage 1: Some [...] body mass. Additional eGFR calculator available at: http://www.[employer]/multiple_crcl_2012.htm Microscopic Urinalysison Amorphous, UA 3+ Abnormal None [facility], [place] Bacteria, UA 1+ Abnormal None [facility], [place] Casts UA NOT REPORTED /LPF [place] Crystals UA NOT REPORTED None /HPF [facility], [place] Epithelial Cells UA 0 TO 2 [place] Interpretation and review of laboratory results Abnormal [place] Mucus, UA NOT REPORTED None [place] Other Observations UA NOT REPORTED NOT REQ. [place] RBC (U) [#/Vol] 0 TO 2 [place] Renal Epithelial, Urine NOT REPORTED 0 /HPF [place] Trichomonas, UA NOT REPORTED None [facility] [place] WBC, UA 0 TO 2 [place] Yeast, UA NOT REPORTED None [place] Urinalysis Reflex to Culture on 12-03-2018 Bilirubin Urine Negative NEGATIVE [place] Color, UA YELLOW YELLOW [place] Glucose, Ur Negative NEGATIVE [place] Interpretation and review of laboratory results Abnormal [place] Ketones Ql (U) Negative NEGATIVE [place] Leukocyte esterase Test strip Ql (U) Negative NEGATIVE [place] Nitrite, Urine Negative NEGATIVE [place] pH, UA 7.5 [place] Protein (U) [Mass/Vol] Negative NEGATIVE [place] Specific [place], UA 1.015 [place] Turbidity UA CLOUDY Abnormal CLEAR [place] Urinalysis Comments NOT REPORTED [place] Urine Hgb Negative NEGATIVE [place] Urobilinogen, Urine Normal Normal [place] Wet Prep, Genitalon 12-04-19 19 Direct Exam YEAST PRESENT [place] Direct Exam NO CLUE CELLS SEEN [place] Direct Exam NO TRICHOMONAS SEEN [place], [place] Special Requests [place] REPORT[place] Specimen Description .[place] hCG, quantitative, on 12-03-2018 hCG Quant [id number] High <5 IU/L [place] Comment on above: Non-preg premeno <=5 Postmeno <=8 Male <=3 If HCG results do not concur with clinical observations, additional testing to confirm results is recommended. Elevated results not associated with may be found in patients with other diseases such as tumors of the germ cells (testis, ovaries, etc.), bladder, pancreas, stomach, lungs, and liver. Interpretation and review of laboratory results Abnormal [place] Vital Signs Date Time Vital Sign Value Performing Clinician Facility 04-26-2024 13:04-0500 Body height 160 cm Niya Santiago PRESS OPERATOR ASSISTANT Work Phone: [facility] 04-26-2024 13:04-0500 Body mass index (BMI) [Ratio] 29.62 kg/m2 Niya Santiago PRESS OPERATOR ASSISTANT Work Phone: [facility] 04-26-2024 13:04-0500 Body temperature 98.1 [degF] Niya Santiago PRESS OPERATOR ASSISTANT Work Phone: [facility] 04-26-2024 13:04-0500 Body weight 75.84 kg Niya Santiago PRESS OPERATOR ASSISTANT Work Phone: [facility] 04-26-2024 13:04-0500 Diastolic blood pressure 78 mm[Hg] Niya Santiago PRESS OPERATOR ASSISTANT Work Phone: [facility] 04-26-2024 13:04-0500 Heart rate 93 /min Niya Santigao PRESS OPERATOR ASSISTANT Work Phone: [facility] 04-26-2024 13:04-0500 Respiratory rate 18 /min Niya Santiago PRESS OPERATOR ASSISTANT Work Phone: [facility] 04-26-2024 13:04-0500 SaO2% (BldA) [Mass fraction] 97 % Niya Santiago PRESS OPERATOR ASSISTANT Work Phone: [facility] 04-26-2024 13:04-0500 Systolic blood pressure 122 mm[Hg] Niya Santiago PRESS OPERATOR ASSISTANT Work Phone: [facility] 03-31-2024 13:49-0500 Body height 160 cm Craig Wade MD Work Phone: [facility] 03-31-2024 13:49-0500 Body mass index (BMI) [Ratio] 28.78 kg/m2 Craig Wade MD Work Phone: [facility] 03-31-2024 13:49-0500 Body weight 73.7 kg Craig Wade MD Work Phone: [facility] 03-31-2024 13:49-0500 Diastolic blood pressure 70 mm[Hg] Craig Wade MD Work Phone: [facility] 03-31-2024 13:49-0500 Heart rate 77 /min Craig Wade MD Work Phone: [facility] 03-31-2024 13:49-0500 Systolic blood pressure 115 mm[Hg] Craig Wade MD Work Phone: [facility] 03-01-2024 10:42-0500 Body height 160 cm Niya Santiago PRESS OPERATOR ASSISTANT Work Phone: [facility] 03-01-2024 10:42-0500 Body mass index (BMI) [Ratio] 27.95 kg/m2 Niya Santiago PRESS OPERATOR ASSISTANT Work Phone: [facility] 03-01-2024 10:42-0500 Body temperature 97.59 [degF] Niya Santiago PRESS OPERATOR ASSISTANT Work Phone: [facility] 03-01-2024 10:42-0500 Body weight 71.58 kg Niya Santiago PRESS OPERATOR ASSISTANT Work Phone: [facility] 03-01-2024 10:42-0500 Diastolic blood pressure 82 mm[Hg] Niya Aichholz PRESS OPERATOR ASSISTANT Work Phone: [facility] 03-01-2024 10:42-0500 Heart rate 101 /min Niya Aichholz PRESS OPERATOR ASSISTANT Work Phone: [facility] 03-01-2024 10:42-0500 Respiratory rate 18 /min Niya Aichholz PRESS OPERATOR ASSISTANT Work Phone: [facility] 03-01-2024 10:42-0500 SaO2% (BldA) [Mass fraction] 97 % Niya Aichholz PRESS OPERATOR ASSISTANT Work Phone: [facility] 03-01-2024 10:42-0500 Systolic blood pressure 120 mm[Hg] Niya Aichholz PRESS OPERATOR ASSISTANT Work Phone: [facility] 01-25-2024 14:54-0500 Body height 160 cm Niya Aichholz PRESS OPERATOR ASSISTANT Work Phone: [facility] 01-25-2024 14:54-0500 Body mass index (BMI) [Ratio] 29.8 kg/m2 Niya Aichholz PRESS OPERATOR ASSISTANT Work Phone: [facility] 01-25-2024 14:54-0500 Body temperature 97.81 [degF] Niya Aichholz PRESS OPERATOR ASSISTANT Work Phone: [facility] 01-25-2024 14:54-0500 Body weight 76.3 kg Niya Aichholz PRESS OPERATOR ASSISTANT Work Phone: [facility] 01-25-2024 14:54-0500 Diastolic blood pressure 72 mm[Hg] Niya Aichholz PRESS OPERATOR ASSISTANT Work Phone: [facility] 01-25-2024 14:54-0500 Heart rate 78 /min Niya Aichholz PRESS OPERATOR ASSISTANT Work Phone: [facility] 01-25-2024 14:54-0500 Respiratory rate 19 /min Niya Aichholz PRESS OPERATOR ASSISTANT Work Phone: [facility] 01-25-2024 14:54-0500 SaO2% (BldA) [Mass fraction] 98 % Niya Estrellaholz PRESS OPERATOR ASSISTANT Work Phone: [facility] 01-25-2024 14:54-0500 Systolic blood pressure 104 mm[Hg] Niya Nelsonhholz PRESS OPERATOR ASSISTANT Work Phone: [facility] 10-21-2023 13:04-0400 Body height 160 cm Niya Nelsonhholz PRESS OPERATOR ASSISTANT Work Phone: [facility] 10-21-2023 13:04-0400 Body mass index (BMI) [Ratio] 29.19 kg/m2 Niya Nelsonhholz PRESS OPERATOR ASSISTANT Work Phone: [facility] 10-21-2023 13:04-0400 Body temperature 97 [degF] Niya Nelsonhholz PRESS OPERATOR ASSISTANT Work Phone: [facility] 10-21-2023 13:04-0400 Body weight 74.75 kg Niya Nelsonhholz PRESS OPERATOR ASSISTANT Work Phone: [facility] 10-21-2023 13:04-0400 Diastolic blood pressure 80 mm[Hg] Niya Aichholz PRESS OPERATOR ASSISTANT Work Phone: [facility] 10-21-2023 13:04-0400 Heart rate 97 /min Niya Nelsonhholz PRESS OPERATOR ASSISTANT Work Phone: [facility] 10-21-2023 13:04-0400 Respiratory rate 18 /min Niya Nelsonhholz PRESS OPERATOR ASSISTANT Work Phone: [facility] 10-21-2023 13:04-0400 SaO2% (BldA) [Mass fraction] 98 % Niya Nelsonhholz PRESS OPERATOR ASSISTANT Work Phone: [facility] 10-21-2023 13:04-0400 Systolic blood pressure 120 mm[Hg] Niya Nelsonhholz PRESS OPERATOR ASSISTANT Work Phone: [facility] 05-26-2023 13:42-0400 Body temperature 97.5 [degF] Silvia Cooper APRN.ASSEMBLY LINE LEADER Work Phone: [facility] 05-26-2023 13:42-0400 Diastolic blood pressure 66 mm[Hg] Silvia Allison REPAIRER MAINTENANCE BUILDING.ASSEMBLY LINE LEADER Work Phone: [facility] 05-26-2023 13:42-0400 Heart rate 65 /min Silvia Allison REPAIRER MAINTENANCE BUILDING.ASSEMBLY LINE LEADER Work Phone: [facility] 05-26-2023 13:42-0400 SaO2% (BldA) [Mass fraction] 98 % Silvia Allison REPAIRER MAINTENANCE BUILDING.ASSEMBLY LINE LEADER Work Phone: [facility] 05-26-2023 13:42-0400 Systolic blood pressure 107 mm[Hg] Silvia Allison REPAIRER MAINTENANCE BUILDING.ASSEMBLY LINE LEADER Work Phone: [facility] 05-26-2023 11:32-0400 Body temperature 97.2 [degF] Rheu Leslie Work Phone: [facility] 05-26-2023 11:32-0400 Body weight 74.9 kg Rheu Leslie Work Phone: [facility] 05-26-2023 11:32-0400 Diastolic blood pressure 69 mm[Hg] Rheu Leslie Work Phone: [facility] 05-26-2023 11:32-0400 Heart rate 65 /min Rheu Leslie Work Phone: [facility] 05-26-2023 11:32-0400 SaO2% (BldA) [Mass fraction] 96 % Rheu Leslie Work Phone: [facility] 05-26-2023 11:32-0400 Systolic blood pressure 106 mm[Hg] Rheu Leslie Work Phone: [facility] 04-28-2023 12:15-0500 Body temperature 97 [degF] Rheu Leslie Work Phone: [facility] 04-28-2023 12:15-0500 Body weight 73.6 kg Rheu Leslie Work Phone: [facility] 04-28-2023 12:15-0500 Diastolic blood pressure 73 mm[Hg] Rheu Leslie Work Phone: [facility] 04-28-2023 12:15-0500 Heart rate 80 /min Rheu Leslie Work Phone: [facility] 04-28-2023 12:15-0500 Respiratory rate 18 /min Rheu Leslie Work Phone: [facility] 04-28-2023 12:15-0500 Systolic blood pressure 110 mm[Hg] Rheu Leslie Work Phone: [facility] 03-31-2023 12:50-0500 Diastolic blood pressure 69 mm[Hg] Rheu Leslie Work Phone: [facility] 03-31-2023 12:50-0500 Heart rate 70 /min Rheu Leslie Work Phone: [facility] 03-31-2023 12:50-0500 Systolic blood pressure 112 mm[Hg] Rheu Leslie Work Phone: [facility] 03-31-2023 11:34-0500 Body temperature 97.39 [degF] Rheu Leslie Work Phone: [facility] 03-31-2023 11:34-0500 Body weight 74.39 kg Rheu Leslie Work Phone: [facility] 01-20-2023 08:40-0500 Body temperature 96.21 [degF] Fariba Hill APRN.ASSEMBLY LINE LEADER Work Phone: [facility] 01-20-2023 08:40-0500 Body weight 72.45 kg Fariba Hill APRN.ASSEMBLY LINE LEADER Work Phone: [facility] 01-20-2023 08:40-0500 Diastolic blood pressure 82 mm[Hg] Fariba Hill APRN.ASSEMBLY LINE LEADER Work Phone: [facility] 01-20-2023 08:40-0500 Heart rate 84 /min Fariba Hill APRN.ASSEMBLY LINE LEADER Work Phone: [facility] 01-20-2023 08:40-0500 SaO2% (BldA) [Mass fraction] 97 % Fariba Hill APRN.ASSEMBLY LINE LEADER Work Phone: [facility] 01-20-2023 08:40-0500 Systolic blood pressure 128 mm[Hg] Fariba Hill APRN.ASSEMBLY LINE LEADER Work Phone: [facility] 12-31-2022 10:45-0500 Body temperature 97.5 [degF] Rheu Leslie Work Phone: [facility] 12-31-2022 10:45-0500 Body weight 71.67 kg Rheu Leslie Work Phone: [facility] 12-31-2022 10:45-0500 Diastolic blood pressure 61 mm[Hg] Rheu Leslie Work Phone: [facility] 12-31-2022 10:45-0500 Heart rate 78 /min Rheu Leslie Work Phone: [facility] 12-31-2022 10:45-0500 SaO2% (BldA) [Mass fraction] 97 % Rheu Leslie Work Phone: [facility] 12-31-2022 10:45-0500 Systolic blood pressure 123 mm[Hg] Rheu Leslie Work Phone: [facility] 11-27-2022 09:44-0400 Body temperature 97 [degF] Rheu Leslie Work Phone: [facility] 11-27-2022 09:44-0400 Body weight 71.94 kg Rheu Leslie Work Phone: [facility] 11-27-2022 09:44-0400 Diastolic blood pressure 65 mm[Hg] Rheu Leslie Work Phone: [facility] 11-27-2022 09:44-0400 Heart rate 75 /min Rheu Leslie Work Phone: [facility] 11-27-2022 09:44-0400 Systolic blood pressure 112 mm[Hg] Rheu Leslie Work Phone: [facility] 10-22-2022 14:00-0400 Diastolic blood pressure 55 mm[Hg] Rheu Leslie Work Phone: [facility] 10-22-2022 14:00-0400 Heart rate 51 /min Rheu Leslie Work Phone: [facility] 10-22-2022 14:00-0400 Respiratory rate 18 /min Rheu Leslie Work Phone: [facility] 10-22-2022 14:00-0400 Systolic blood pressure 111 mm[Hg] Rheu Leslie Work Phone: [facility] 10-22-2022 10:52-0400 SaO2% (BldA) [Mass fraction] 100 % Rheu Leslie Work Phone: [facility] 10-22-2022 09:39-0400 Body weight 70.31 kg Rheu Leslie Work Phone: [facility] 10-22-2022 09:03-0400 Body temperature 96.91 [degF] Fariba Hill APRN.ASSEMBLY LINE LEADER Work Phone: [facility] 10-22-2022 09:03-0400 Diastolic blood pressure 79 mm[Hg] Fariba Hill APRN.ASSEMBLY LINE LEADER Work Phone: [facility] 10-22-2022 09:03-0400 Heart rate 69 /min Fariba Hill APRN.ASSEMBLY LINE LEADER Work Phone: [facility] 10-22-2022 09:03-0400 SaO2% (BldA) [Mass fraction] 98 % Fariba Hill APRN.ASSEMBLY LINE LEADER Work Phone: [facility] 10-22-2022 09:03-0400 Systolic blood pressure 116 mm[Hg] Fariba Hill APRN.ASSEMBLY LINE LEADER Work Phone: [facility] 09-17-2022 09:30-0400 Body temperature 98.01 [degF] Rheu Leslie Work Phone: [facility] 09-17-2022 09:30-0400 Body weight 70.31 kg Rheu Leslie Work Phone: [facility] 09-17-2022 09:30-0400 Diastolic blood pressure 80 mm[Hg] Rheu Leslie Work Phone: [facility] 09-17-2022 09:30-0400 Heart rate 85 /min Rheu Leslie Work Phone: [facility] 09-17-2022 09:30-0400 Respiratory rate 16 /min Rheu Leslie Work Phone: [facility] 09-17-2022 09:30-0400 Systolic blood pressure 139 mm[Hg] Rheu Leslie Work Phone: [facility] 04-14-2022 13:44-0500 Diastolic blood pressure 80 mm[Hg] Rheu Leslie Work Phone: [facility] 04-14-2022 13:44-0500 Heart rate 60 /min Rheu Leslie Work Phone: [facility] 04-14-2022 13:44-0500 Respiratory rate 18 /min Rheu Leslie Work Phone: [facility] 04-14-2022 13:44-0500 Systolic blood pressure 115 mm[Hg] Rheu Leslie Work Phone: [facility] 04-14-2022 10:24-0500 Body weight 66.22 kg Fariba Hill APRN.ASSEMBLY LINE LEADER Work Phone: [facility] 04-14-2022 10:24-0500 Diastolic blood pressure 74 mm[Hg] Fariba Hill REPAIRER MAINTENANCE BUILDING.ASSEMBLY LINE LEADER Work Phone: [facility] 04-14-2022 10:24-0500 Heart rate 72 /min Fariba Hill REPAIRER MAINTENANCE BUILDING.ASSEMBLY LINE LEADER Work Phone: [facility] 04-14-2022 10:24-0500 Systolic blood pressure 126 mm[Hg] Fariba Hill REPAIRER MAINTENANCE BUILDING.ASSEMBLY LINE LEADER Work Phone: [facility] 02-24-2022 13:00-0500 Diastolic blood pressure 46 mm[Hg] Rheu Leslie Work Phone: [facility] 02-24-2022 13:00-0500 Heart rate 62 /min Rheu Leslie Work Phone: [facility] 02-24-2022 13:00-0500 Respiratory rate 16 /min Rheu Leslie Work Phone: [facility] 02-24-2022 13:00-0500 Systolic blood pressure 96 mm[Hg] Rheu Leslie Work Phone: [facility] 02-24-2022 10:00-0500 Body temperature 97.11 [degF] Rheu Leslie Work Phone: [facility] 02-24-2022 10:00-0500 Body weight 69.85 kg Rheu Leslie Work Phone: [facility] 01-05-2022 13:38-0500 Diastolic blood pressure 68 mm[Hg] Rheu Leslie Work Phone: [facility] 01-05-2022 13:38-0500 Heart rate 50 /min Rheu Leslie Work Phone: [facility] 01-05-2022 13:38-0500 Respiratory rate 20 /min Rheu Leslie Work Phone: [facility] 01-05-2022 13:38-0500 Systolic blood pressure 115 mm[Hg] Rheu Leslie Work Phone: [facility] 01-05-2022 10:05-0500 Body weight 70.76 kg Fariba Hill APRN.ASSEMBLY LINE LEADER Work Phone: [facility] 01-05-2022 10:05-0500 Diastolic blood pressure 68 mm[Hg] Fariba Hill REPAIRER MAINTENANCE BUILDING.ASSEMBLY LINE LEADER Work Phone: [facility] 01-05-2022 10:05-0500 Heart rate 66 /min Fariba Hill REPAIRER MAINTENANCE BUILDING.ASSEMBLY LINE LEADER Work Phone: [facility] 01-05-2022 10:05-0500 Systolic blood pressure 128 mm[Hg] Fariba Hill REPAIRER MAINTENANCE BUILDING.ASSEMBLY LINE LEADER Work Phone: [facility] 11-13-2021 16:03-0400 Diastolic blood pressure 63 mm[Hg] Rheu Leslie Work Phone: [facility] 11-13-2021 16:03-0400 Heart rate 60 /min Rheu Leslie Work Phone: [facility] 11-13-2021 16:03-0400 Respiratory rate 18 /min Rheu Leslie Work Phone: [facility] 11-13-2021 16:03-0400 Systolic blood pressure 106 mm[Hg] Rheu Leslie Work Phone: [facility] 11-13-2021 13:20-0400 Body temperature 97 [degF] Rheu Leslie Work Phone: [facility] 11-13-2021 13:20-0400 Body weight 73.94 kg Rheu Leslie Work Phone: [facility] 09-03-2021 15:41-0400 Diastolic blood pressure 69 mm[Hg] Rheu Leslie Work Phone: [facility] 09-03-2021 15:41-0400 Heart rate 74 /min Rheu Leslie Work Phone: [facility] 09-03-2021 15:41-0400 Respiratory rate 18 /min Rheu Leslie Work Phone: [facility] 09-03-2021 15:41-0400 Systolic blood pressure 114 mm[Hg] Rheu Leslie Work Phone: [facility] 09-03-2021 12:55-0400 Body temperature 97.9 [degF] Rheu Leslie Work Phone: [facility] 09-03-2021 12:55-0400 Body weight 71.67 kg Rheu Leslie Work Phone: [facility] 08-06-2021 16:10-0400 Diastolic blood pressure 59 mm[Hg] Rheu Leslie Work Phone: [facility] 08-06-2021 16:10-0400 Heart rate 55 /min Rheu Leslie Work Phone: [facility] 08-06-2021 16:10-0400 Respiratory rate 18 /min Rheu Leslie Work Phone: [facility] 08-06-2021 16:10-0400 Systolic blood pressure 105 mm[Hg] Rheu Leslie Work Phone: [facility] 08-06-2021 13:00-0400 Body temperature 97.59 [degF] Rheu Leslie Work Phone: [facility] 08-06-2021 13:00-0400 Body weight 74.03 kg Rheu Leslie Work Phone: [facility] 07-23-2021 12:15-0400 Diastolic blood pressure 72 mm[Hg] Rheu Leslie Work Phone: [facility] 07-23-2021 12:15-0400 Heart rate 78 /min Rheu Leslie Work Phone: [facility] 07-23-2021 12:15-0400 Respiratory rate 18 /min Rheu Leslie Work Phone: [facility] 07-23-2021 12:15-0400 Systolic blood pressure 118 mm[Hg] Rheu Leslie Work Phone: [facility] 07-23-2021 08:54-0400 Body weight 74.39 kg Fariba Hill REPAIRER MAINTENANCE BUILDING.ASSEMBLY LINE LEADER Work Phone: [facility] 07-23-2021 08:54-0400 Diastolic blood pressure 78 mm[Hg] Fariba Hill REPAIRER MAINTENANCE BUILDING.ASSEMBLY LINE LEADER Work Phone: [facility] 07-23-2021 08:54-0400 Heart rate 66 /min Fariba Hill REPAIRER MAINTENANCE BUILDING.ASSEMBLY LINE LEADER Work Phone: [facility] 07-23-2021 08:54-0400 Systolic blood pressure 122 mm[Hg] Fariba Ramosick REPAIRER MAINTENANCE BUILDING.ASSEMBLY LINE LEADER Work Phone: [facility] 09-15-2020 17:13-0400 Body mass index (BMI) [Ratio] 25.69 kg/m2 [employer] Work Phone: 09-15-2020 17:13-0400 Body temperature 98.6 [degF] [employer] Work Phone: 09-15-2020 17:13-0400 Body weight 65.77 kg [employer] Phone: 09-15-2020 17:13-0400 Diastolic blood pressure 94 mm[Hg] [employer] Phone: 09-15-2020 17:13-0400 Heart rate 71 /min [employer] Phone: 09-15-2020 17:13-0400 Respiratory rate 14 /min [employer] Phone: 09-15-2020 17:13-0400 SaO2% (BldA) [Mass fraction] 96 % [employer] Phone: 09-15-2020 17:13-0400 Systolic blood pressure 136 mm[Hg] [employer] Phone: 03-15-2020 16:47-0500 Respiratory Rate 16 /min [employer] 03-15-2020 16:03-0500 Body Temperature 98.91 [degF] [employer] 03-15-2020 16:01-0500 BMI (Body Mass Index) 24.8 kg/m2 [employer] 03-15-2020 16:01-0500 Body weight 63.5 kg [employer] , [place] 03-15-2020 16:01-0500 Height 160 cm [employer] , [place] 03-15-2020 15:58-0500 BP Diastolic 74 mm[Hg] [employer] , [place] 03-15-2020 15:58-0500 BP Systolic 128 mm[Hg] [employer] , [place] 03-15-2020 15:58-0500 Pulse (Heart Rate) 103 /min [employer] 03-15-2020 15:58-0500 Pulse Oximetry 99 % [employer] , [place] 07-13-2019 07:18-0400 Body Temperature 97.9 [degF] [place] 07-13-2019 07:18-0400 BP Diastolic 68 mm[Hg] [facility] , [place] 07-13-2019 07:18-0400 BP Systolic 109 mm[Hg] [facility] , [place] 07-13-2019 07:18-0400 Pulse (Heart Rate) 75 /min [facility], [place] 07-13-2019 07:18-0400 Respiratory Rate 16 /min Tosha [facility], [place] 07-12-2019 09:51-0400 Pulse Oximetry 98 % Tosha [facility] , [place] 07-11-2019 20:57-0400 BMI (Body Mass Index) 32.42 kg/m2 [facility], [place] 07-11-2019 20:57-0400 Body weight 83.01 kg Toshagabi [facility] , [place] 07-11-2019 20:57-0400 Height 160 cm Tosh[facility] , [place] 05-12-2019 06:15-0400 BMI (Body Mass Index) 33.66 kg/m2 [facility], [place] 05-12-2019 06:15-0400 Body Temperature 99 [degF] [facility] [place] 05-12-2019 06:15-0400 Body weight 86.18 kg [facility] , [place] 05-12-2019 06:15-0400 BP Diastolic 78 mm[Hg] [facility] , [place] 05-12-2019 06:15-0400 BP Systolic 130 mm[Hg] [facility] , [place] 05-12-2019 06:15-0400 Height 160 cm [facility] , [place] 05-12-2019 06:15-0400 Pulse (Heart Rate) 97 /min [facility], [place] 05-12-2019 06:15-0400 Pulse Oximetry 100 % [facility] , [place] 05-12-2019 06:15-0400 Respiratory Rate 16 /min [facility], [place] 05-04-2019 12:47-0400 Body Temperature 96.21 [degF] [address] 05-04-2019 12:47-0400 BP Diastolic 73 mm[Hg] [address] 05-04-2019 12:47-0400 BP Systolic 129 mm[Hg] [address] 05-04-2019 12:47-0400 Pulse (Heart Rate) 89 /min [address] 05-04-2019 12:47-0400 Respiratory Rate 20 /min [address] [place] 01-28-2019 20:45-0500 BP Diastolic 71 mm[Hg] [place], [place] 01-28-2019 20:45-0500 BP Systolic 116 mm[Hg] [place] 01-28-2019 20:39-0500 Body Temperature 98.1 [degF] [place] 01-28-2019 20:39-0500 Pulse (Heart Rate) 91 /min [place] 01-28-2019 20:39-0500 Pulse Oximetry 99 % [place], [place] 01-28-2019 20:39-0500 Respiratory Rate 20 /min [place] 12-03-2018 19:32-0400 BP Diastolic 63 mm[Hg] [place] 12-03-2018 19:32-0400 BP Systolic 134 mm[Hg] [place] 12-03-2018 19:32-0400 Pulse (Heart Rate) 95 /min [place] 12-03-2018 19:32-0400 Respiratory Rate 16 /min [place] 12-03-2018 17:37-0400 BMI (Body Mass Index) 30.11 kg/m2 [place] 12-03-2018 17:37-0400 Body Temperature 97.9 [degF] [place] 12-03-2018 17:37-0400 Body weight 77.11 kg [place], [place] 12-03-2018 17:37-0400 Pulse Oximetry 99 % [place] Encounters Encounter Date Encounter Type Care Provider Facility Start: 07-31-2024 End: 07-31-2024 Refill Niya Aichholz PRESS OPERATOR ASSISTANT Work Phone: [facility] Comment on above: ADHD (attention defi cit hyperactivity disorder), combined type (CMS/HCC) Start: 07-24-2024 End: 07-24-2024 Refill Niya Santiago PRESS OPERATOR ASSISTANT Work Phone: [facility] Comment on above: Wheezing Start: 05-10-2024 End: 05-11-2024 Telephone encounter Craig Wade MD Work Phone: Rheumatology Comment on above: Patient Request Start: 05-08-2024 End: 05-08-2024 ambulatory NIYA SANTIAGO Facility:[facility] Start: 04-26-2024 End: 04-26-2024 Bamboo flowsheet Niya Santiago PRESS OPERATOR ASSISTANT Work Phone: [facility] Start: 04-26-2024 End: 04-26-2024 Bamboo flowsheet Niya Santiago PRESS OPERATOR ASSISTANT Work Phone: [facility] Start: 04-26-2024 End: 04-26-2024 ambulatory NIYA JACK Not Available Start: 04-26-2024 End: 04-26-2024 Office outpatient visit 25 minutes Niya Santiago PRESS OPERATOR ASSISTANT Work Phone: [facility] Comment on above: ADHD (attention defi cit hyperactivity disorder), combined type (CMS/HCC) (Primary Dx); Neutropenia, unspecified type (CMS/HCC); Opioid abuse, uncomplicated (CMS/HCC); Cigarette nicotine dependence without complication; Anxiety; Wheezing; Nausea Start: 04-03-2024 End: 04-03-2024 Orders Only Craig Wade MD Work Phone: [facility] Comment on above: Seropositive rheumat oid arthritis (HCC) (Primary Dx) Start: 03-31-2024 End: 03-31-2024 Patient encounter procedure Mansi Leone [facility] Comment on above: SPP Inflammatory Con ditions - Treatment Referral (Actemra); Insurance Authorization ([place] Submission Pending) Start: 03-31-2024 End: 04-04-2024 Refill Niya Santiago PRESS OPERATOR ASSISTANT Work Phone: [facility] Comment on above: Wheezing Start: 03-31-2024 End: 03-31-2024 ambulatory Mansi Vasu [facility] Start: 03-31-2024 End: 03-31-2024 Office outpatient visit 40 minutes Craig Wade MD Work Phone: Rheumatology Comment on above: Seropositive rheumat oid arthritis (HCC) (Primary Dx); Medication monitoring encounter Start: 03-23-2024 End: 03-23-2024 Clinisync Result Encounter Niya Santiago PRESS OPERATOR ASSISTANT Work Phone: [facility] Unsolicited Start: 03-23-2024 End: 03-23-2024 Clinisync Result Encounter Niya Santiago PRESS OPERATOR ASSISTANT Work Phone: [facility] Unsolicited Start: 03-01-2024 End: 03-01-2024 Bamboo flowsheet Niya Santiago PRESS OPERATOR ASSISTANT Work Phone: [facility] Start: 03-01-2024 End: 03-07-2024 Bamboo flowsheet Niya Jack PRESS OPERATOR ASSISTANT Work Phone: [facility] Start: 03-01-2024 End: 03-07-2024 Clinisync Result Encounter Niya Santiago PRESS OPERATOR ASSISTANT Work Phone: [facility] Unsolicited Start: 03-01-2024 End: 03-01-2024 ambulatory NIYA SANTIAGO Not Available Start: 03-01-2024 End: 03-01-2024 Patient encounter procedure Niya Santiago PRESS OPERATOR ASSISTANT Work Phone: [facility] Start: 03-01-2024 End: 03-01-2024 Periodic preventive med est patient 40-64yrs Niya Santiago PRESS OPERATOR ASSISTANT Work Phone: [facility] Comment on above: Well woman exam with routine gynecological exam (Primary Dx); Rheumatoid arthritis, unspecified (CMS/HCC); Opioid abuse, uncomplicated (CMS/HCC); Tobacco user; Screening mammogram for breast cancer Start: 02-28-2024 Patient encounter procedure Niya Santiago PRESS OPERATOR ASSISTANT Work Phone: [facility] Start: 02-09-2024 End: 02-09-2024 Refill Niya Jack PRESS OPERATOR ASSISTANT Work Phone: [facility] Comment on above: Wheezing Start: 01-25-2024 End: 01-25-2024 ambulatory NIYA JACK Not Available Start: 01-25-2024 End: 01-25-2024 Office outpatient visit 25 minutes Niya Santiago PRESS OPERATOR ASSISTANT Work Phone: [facility] Comment on above: ADHD (attention defi cit hyperactivity disorder), combined type (CMS/HCC) (Primary Dx); Opioid abuse, uncomplicated (CMS/HCC); Tobacco user; Rheumatoid arthritis, involving unspecified site, unspecified whether rheumatoid factor present (CMS/HCC); Neutropenia, unspecified type (CMS/HCC); Mild depression (CMS/HCC); Anxiety; BMI 29.0-29.9,adult Start: 01-25-2024 End: 01-25-2024 Bamboo flowsheet Niya Jack PRESS OPERATOR ASSISTANT Work Phone: [facility] Start: 01-25-2024 End: 01-25-2024 Bamboo flowsheet Niya Jack PRESS OPERATOR ASSISTANT Work Phone: [facility] Start: 12-19-2023 End: 12-20-2023 Refill Niya Jack PRESS OPERATOR ASSISTANT Work Phone: [facility] Comment on above: Wheezing Start: 10-21-2023 End: 10-21-2023 Bamboo flowsheet Niya Jack PRESS OPERATOR ASSISTANT Work Phone: [facility] Start: 10-21-2023 End: 10-21-2023 Bamboo flowsheet Niya Jack PRESS OPERATOR ASSISTANT Work Phone: [facility] Start: 10-21-2023 End: 10-21-2023 ambulatory NIYA AICHHOLZ Not Available Start: 10-21-2023 End: 10-21-2023 Office outpatient visit 25 minutes Niya Jack PRESS OPERATOR ASSISTANT Work Phone: [facility] Comment on above: Adult ADHD (attentio n deficit hyperactivity disorder) ([facility]/HCC) (Primary Dx); Neutropenia, unspecified ([facility]); Tobacco user; BMI 29.0-29.9,adult; Rheumatoid arthritis, involving unspecified site, unspecified whether rheumatoid factor present ([facility]); Anxiety; Subacute maxillary sinusitis; Wheezing; Nausea Start: 08-16-2023 Telephone encounter Fariba carey REPAIRER MAINTENANCE BUILDING.ASSEMBLY LINE LEADER Work Phone: Infusion Start: 07-22-2023 End: 07-22-2023 ambulatory NIYA AICHHOLZ Not Available Start: 07-16-2023 ambulatory [facility] Comment on above: Infusion Wednesday Start: 07-16-2023 E-mail encounter fro m caregiver [facility] Start: 06-28-2023 [facility] Work Phone: [facility]fusion Start: 06-25-2023 Telephone encounter Fariba carey REPAIRER MAINTENANCE BUILDING.ASSEMBLY LINE LEADER Work Phone: Infusion Start: 06-21-2023 ambulatory [facility] Comment on above: Infusion Wednesday Start: 06-21-2023 E-mail encounter fro m caregiver [facility] Start: 06-20-2023 Orders Only Fariba Hill APRN.ASSEMBLY LINE LEADER Work Phone: Rheumatology Start: 05-28-2023 Telephone encounter Fariba carey REPAIRER MAINTENANCE BUILDING.ASSEMBLY LINE LEADER Work Phone: Infusion Start: 05-26-2023 End: 05-26-2023 ambulatory TINO BLAKE Facility:[facility] Start: 05-26-2023 End: 05-26-2023 Office outpatient visit 15 minutes Silvia Cooper APRN.ASSEMBLY LINE LEADER Work Phone: [facility] Comment on above: Wheezing (Primary Dx ) Start: 05-26-2023 End: 05-26-2023 Patient encounter procedure Fariba Hill APRN.ASSEMBLY LINE LEADER Work Phone: Rheumatology Comment on above: Seropositive [...] encounter margarito haider caregiver [facility] Start: 05-14-2023 Telephone encounter Corinna Kc ( Coord) Radiology Comment on above: Appointment Start: 05-03-2023 End: 05-03-2023 ambulatory NIYA SANTIAGO Not Available Start: 04-28-2023 End: 04-28-2023 Patient encounter procedure Fariba Hill APRN.ASSEMBLY LINE LEADER Work Phone: Rheumatology Comment on above: Seropositive rheumat oid arthritis (HCC) (Primary Dx); Localized superficial swelling, mass, or lump; Encounter for medication review and counseling; Synovitis; Encounter to discuss test results; Medication monitoring encounter; Smoker Start: 04-28-2023 Telephone encounter Fariba carey APRN.ASSEMBLY LINE LEADER Work Phone: Infusion Start: 04-28-2023 End: 04-28-2023 ambulatory Rheu Chair [facility] Work Phone: Infusion Comment on above: Seropositive rheumat oid arthritis (HCC) (Primary Dx) Start: 04-25-2023 Orders Only Fariba Hill APRN.ASSEMBLY LINE LEADER Work Phone: Rheumatology Start: 04-20-2023 Telephone encounter [...] encounter margarito haider caregiver [facility] Provider [facility] Start: 03-28-2023 Orders Only Fariba Hill APRN.ASSEMBLY LINE LEADER Work Phone: Rheumatology Start: 02-16-2023 Telephone encounter Fariba carey APRN.ASSEMBLY LINE LEADER Work Phone: Infusion Start: 02-01-2023 [facility] Work Phone: [facility]fusion Start: 01-29-2023 Orders Only Fariba Hill APRN.ASSEMBLY LINE LEADER Work Phone: Rheumatology Comment on above: Infusion 02/13 Start: 01-20-2023 Telephone encounter Fariba carey APRN.ASSEMBLY LINE LEADER Work Phone: Rheumatology Comment on above: Medication Problem Start: 01-20-2023 End: 01-20-2023 Patient encounter procedure Fariba Hill APRN.ASSEMBLY LINE LEADER Work Phone: Rheumatology Comment on above: Seropositive rheumat oid arthritis (HCC) (Primary Dx); Pain in right foot; Encounter for monitoring leflunomide therapy; Encounter for medication review and counseling; Synovitis; Vitamin D deficiency; Medication monitoring encounter; Encounter to discuss test results Start: 12-31-2022 End: 12-31-2022 ambulatory [facility] Work Phone: Infusion Comment on above: Seropositive rheumat oid arthritis (HCC) (Primary Dx) Start: 12-30-2022 Orders Only Fariba Hill APRN.ASSEMBLY LINE LEADER Work Phone: Rheumatology Start: 12-29-2022 ambulatory [facility] Comment on above: Infusion Start: 12-29-2022 E-mail encounter fro m caregiver [facility] Start: 12-17-2022 Telephone encounter Fariba carey APRN.ASSEMBLY LINE LEADER Work Phone: Rheumatology Comment on above: Results Start: 12-14-2022 Telephone encounter Fariba carey APRN.ASSEMBLY LINE LEADER Work Phone: [facility] [place] Comment on above: Lab Orders Start: 12-11-2022 Telephone encounter Fariba carey APRN.ASSEMBLY LINE LEADER Work Phone: Rheumatology Comment on above: Results Start: 11-27-2022 End: 11-27-2022 ambulatory Rheu [facility] Work Phone: Infusion Comment on above: Seropositive rheumat oid arthritis (HCC) (Primary Dx) Start: 11-25-2022 [facility] Work Phone: Infusion Start: 11-11-2022 Telephone encounter Tino Blake MD Work Phone: [address] [place] [address] Start: 10-22-2022 End: 10-22-2022 ambulatory Rheu Chair 7 [facility] Work Phone: Infusion Comment on above: Seropositive rheumat oid arthritis (HCC) (Primary Dx); Vitamin D deficiency; Synovitis Start: 10-22-2022 End: 10-22-2022 Patient encounter procedure Fariba Hill APRN.ASSEMBLY LINE LEADER Work Phone: Rheumatology Comment on above: Seropositive rheumat oid arthritis (HCC) (Primary Dx); Synovitis; Vitamin D deficiency; Encounter for monitoring leflunomide therapy; Encounter for medication review and counseling; Encounter to discuss test results; Counseling on health promotion and disease prevention; Smoker Start: 10-20-2022 ambulatory [facility] Comment on above: Infusion Start: 10-20-2022 E-mail encounter margarito m caregiver [facility] Start: 09-17-2022 End: 09-17-2022 ambulatory Rheu Chair 8 [facility] Work Phone: Infusion Comment on above: Seropositive rheumat oid arthritis (HCC) (Primary Dx) Start: 09-15-2022 ambulatory Fariba Hill APRN.ASSEMBLY LINE LEADER Work Phone: Infusion Comment on above: Infusion for 09/17/22 Start: 09-15-2022 E-mail encounter fro m caregiver Fariba Hill APRN.ASSEMBLY LINE LEADER Work Phone: [facility] Start: 08-31-2022 Orders Only Fariba Ramoscherry FIGUEROA.ASSEMBLY LINE LEADER Work Phone: Rheumatology Start: 08-05-2022 Telephone encounter Juan Daniel Mcarthur MD Work Phone: [facility] Comment on above: Insurance Authorizat ion (Prior Auth Delayed: P2P requested for [place]) Start: 07-24-2022 Orders Only Fariba Ramoscherry FIGUEROA.ASSEMBLY LINE LEADER Work Phone: Rheumatology Start: 06-23-2022 End: 06-23-2022 ambulatory Rheu Chair 5 [facility] Work Phone: Infusion Comment on above: Seropositive rheumat oid arthritis (HCC) (Primary Dx); Vitamin D deficiency Start: 06-22-2022 ambulatory Fariba Haider Monika FIGUEROA.ASSEMBLY LINE LEADER Work Phone: Infusion Comment on above: Infusion Confirmatio n Start: 06-22-2022 E-mail encounter fro m caregiver Fariba Hill [place].ASSEMBLY LINE LEADER Work Phone: [facility] Start: 04-28-2022 End: 04-28-2022 ambulatory Fariba Hill [place].ASSEMBLY LINE LEADER Work Phone: Rheumatology Comment on above: Seropositive rheumat oid arthritis (HCC) (Primary Dx) Start: 04-28-2022 End: 04-28-2022 Telemedicine consultation with patient Fariba Hill [place].ASSEMBLY LINE LEADER Work Phone: [facility] Start: 04-15-2022 Orders Only Fariba Hill [place].ASSEMBLY LINE LEADER Work Phone: Rheumatology Comment on above: Results [...] End: 04-14-2022 Patient encounter procedure Fariba Hill APRN.ASSEMBLY LINE LEADER Work Phone: Rheumatology Comment on above: Seropositive rheumat oid arthritis (HCC) (Primary Dx); Vitamin D deficiency; Smoker; Pain in left foot; Encounter for medication review and counseling; Encounter to discuss test results; Encounter for monitoring leflunomide therapy; Counseling on health promotion and disease prevention; High risk medication use Start: 04-10-2022 Orders Only Fariba Hill APRN.ASSEMBLY LINE LEADER Work Phone: Rheumatology Start: 03-07-2022 Refill Fariba Hill APRN.ASSEMBLY LINE LEADER Work Phone: Rheumatology Comment on above: Refill Request Start: 02-25-2022 Telephone encounter Fariba carey APRN.ASSEMBLY LINE LEADER Work Phone: Rheumatology Comment on above: Results Start: 02-24-2022 End: 02-24-2022 Subsequent hospital visit by physician X[facility] Comment on above: Left without seen Start: 02-24-2022 End: 02-24-2022 ambulatory Rheu Chair 7 [facility] Work Phone: Infusion Comment on above: Seropositive rheumat oid arthritis (HCC) (Primary Dx) Start: 02-20-2022 Telephone encounter Fariba carey APRN.ASSEMBLY LINE LEADER Work Phone: Infusion Comment on above: Patient Question Start: 02-03-2022 [facility] Start[facility] 01-30-2022 Orders Only Fariba Hill APRN.ASSEMBLY LINE LEADER Work Phone: Rheumatology Start: 01-26-2022 Telephone encounter Juan Daniel Mcarthur MD Work Phone: [facility] Comment on above: Insurance Authorizat ion (Prior auth delayed: Additional Info Needed ([employer])) Start: 01-06-2022 Telephone encounter [facility] [place] Comment on above: Smoking Cessation Patient Update Start: 01-05-2022 End: 01-05-2022 ambulatory Rheu Chair 2 [facility] Work Phone: Infusion Comment on above: Vitamin D deficiency (Primary Dx); Seropositive rheumatoid arthritis (HCC) Start: 01-05-2022 End: 01-05-2022 Patient encounter procedure Fariba Hill APRN.ASSEMBLY LINE LEADER Work Phone: Rheumatology Comment on above: Seropositive rheumat oid arthritis (HCC) (Primary Dx); Smoker; Pain in left foot; Encounter for medication review and counseling; Encounter to discuss test results; Encounter for monitoring leflunomide therapy; Counseling on health promotion and disease prevention; High risk medication use; Rheumatoid arthritis flare (HCC) Start: 01-02-2022 ambulatory Fariba Hill APRN.ASSEMBLY LINE LEADER Work Phone: Infusion Comment on above: Infusion for tomorro w. Start: 01-02-2022 E-mail encounter fro m caregiver Fariba Hill APRN.ASSEMBLY LINE LEADER Work Phone: [facility] Start: 01-02-2022 Telephone encounter Fariba carey APRN.ASSEMBLY LINE LEADER Work Phone: Infusion Comment on above: Patient Question Start: 12-16-2021 Orders Only Fariba Hill APRN.ASSEMBLY LINE LEADER Work Phone: Rheumatology Start: 12-15-2021 Telephone encounter Fariba carey APRN.ASSEMBLY LINE LEADER Work Phone: Infusion Start: 11-13-2021 End: 11-13-2021 ambulatory Rheu Chair [address] [facility] Work Phone: Infusion Comment on above: Seropositive rheumat oid arthritis (HCC) (Primary Dx); Vitamin D deficiency Start: 11-11-2021 ambulatory Fariba Hill APRN.ASSEMBLY LINE LEADER Work Phone: Infusion Comment on above: Infusion for tomorro w Start: 11-11-2021 E-mail encounter fro m caregiver Fariba Hill APRN.ASSEMBLY LINE LEADER Work Phone: [facility] Start: 11-11-2021 Telephone encounter Fariba carey APRN.ASSEMBLY LINE LEADER Work Phone: Infusion Comment on above: Patient Question Start: 11-06-2021 Orders Only Fariba Hill APRN.ASSEMBLY LINE LEADER Work Phone: Rheumatology Start: 11-03-2021 End: 11-04-[address] NONE LISTED REQUEST Facility:[facility] Start: 10-30-2021 Orders Only Fariba Hill APRN.ASSEMBLY LINE LEADER Work Phone: Rheumatology Start: 10-29-2021 End: 10-29-2021 ambulatory Fariba Hill APRN.ASSEMBLY LINE LEADER Work Phone: Rheumatology Comment on above: Seropositive [...] 10-29-2021 Telemedicine consultation with patient Fariba Hill APRN.ASSEMBLY LINE LEADER Work Phone: [facility] Start: 10-28-2021 Telephone encounter Fariba carey APRN.ASSEMBLY LINE LEADER Work Phone: Infusion Start: 10-24-2021 Orders Only Fariba Hill APRN.ASSEMBLY LINE LEADER Work Phone: Rheumatology Start: 10-07-2021 End: 10-07-[address] NONE LISTED REQUEST Facility: Start: 09-05-2021 Encounter for preprocedural laboratory examination DR PATRICIO RAM . [facility] Start: 09-05-2021 End: 09-05-[address] [...] Facility:[facility] Start: 09-01-2021 Telephone encounter Fariba carey REPAIRER MAINTENANCE BUILDING.ASSEMBLY LINE LEADER Work Phone: Infusion Comment on above: Question Start: 08-15-2021 End: 08-15-2021 ambulatory ADRIANA STEPHENS Facility:[facility] Start: 08-07-2021 Telephone encounter Fariba carey REPAIRER MAINTENANCE BUILDING.ASSEMBLY LINE LEADER Work Phone: Rheumatology Comment on above: Results [...] End: 07-23-2021 Patient encounter procedure Fariba Hill REPAIRER MAINTENANCE BUILDING.ASSEMBLY LINE LEADER Work Phone: Rheumatology Comment on above: Seropositive rheumat oid arthritis (HCC) (Primary Dx); Medication monitoring encounter; H/O noncompliance with medical treatment, presenting hazards to health; Encounter for medication review and counseling; Encounter to discuss test results; Counseling on health promotion and disease prevention; Encounter for monitoring leflunomide therapy Start: 07-22-2021 Telephone encounter Fariba carey REPAIRER MAINTENANCE BUILDING.ASSEMBLY LINE LEADER Work Phone: Infusion Comment on above: Question; Return Pro vider Call Start: 07-15-2021 Telephone encounter Fariba carey REPAIRER MAINTENANCE BUILDING.ASSEMBLY LINE LEADER Work Phone: Rheumatology Comment on above: Appointment Start: 07-11-2021 End: 07-11-2021 Emergency department patient visit [facility] Start: 07-08-2021 Telephone encounter Fariba carey REPAIRER MAINTENANCE BUILDING.ASSEMBLY LINE LEADER Work Phone: [facility] Comment on above: Insurance Authorizat ion (Prior Auth Delayed: Additional Info needed for [employer]) Start: 07-04-2021 Orders Only Juan Daniel sanchez MD Work Phone: Rheumatology Start: 06-24-2021 Telephone encounter Fariba carey REPAIRER MAINTENANCE BUILDING.ASSEMBLY LINE LEADER Work Phone: Rheumatology Comment on above: Medication Problem Start: 06-17-2021 Telephone encounter Fariba carey REPAIRER MAINTENANCE BUILDING.ASSEMBLY LINE LEADER Work Phone: Rheumatology Comment on above: Results Start: 09-15-2020 End: 09-15-2020 Emergency department patient visit ALEX REINOSO [facility] Start: 09-15-2020 End: 09-15-2020 Emergency department patient visit [facility] ED Comment on above: Pneumonia of both tyra ngs due to infectious organism, unspecified part of lung (Primary Dx) Start: 03-15-2020 End: 03-15-2020 Emergency department patient visit [facility] ED Comment on above: Suspected COVID-19 v irus infection (Primary Dx) Start: 07-11-2019 End: 07-13-2019 Evaluation and management of inpatient Tosha Viera Work Phone: [facility] Labor and Delivery Start: 07-06-2019 End: 07-06-2019 Subsequent hospital visit by physician [facility] Laboratory Comment on above: 38 weeks gestation o f Start: 05-12-2019 End: 05-12-2019 Emergency department patient visit Mk Mayo Work Phone: [facility] ED Comment on above: Superficial thrombop hlebitis of left upper extremity (Primary Dx) Start: 05-04-2019 End: 05-04-2019 Subsequent hospital visit by physician [facility] Op Treatment Rm 01 [facility] Specialty Clinic (MOB) Start: 05-03-2019 End: 05-03-2019 Subsequent hospital visit by physician [facility] Op Treatment Rm 01 [facility] Specialty Clinic (MOB) Comment on above: Canceled (Patient) Start: 05-02-2019 End: 05-02-2019 Subsequent hospital visit by physician [facility] Op Treatment Rm 01 [facility] Specialty Clinic (MOB) Comment on above: Canceled (Patient) Start: 05-01-2019 End: 05-01-2019 Subsequent hospital visit by physician [facility] Comment on above: Encounter for superv ision of other normal in third trimester; 29 weeks gestation of Start: 04-04-2019 End: 04-04-2019 Subsequent hospital visit by physician [facility] Laboratory Comment on above: Acute nasopharyngiti s Start: 2019 End: 02-19-2019 Subsequent hospital visit by physician Mery Torres [facility] Ultrasound Comment on above: Right upper quadrant abdominal pain Start: 01-28-2019 End: 01-28-2019 Emergency department patient visit [facility] ED Comment on above: Carpal tunnel syndro me of right wrist (Primary Dx) Start: 01-16-2019 End: 01-16-2019 Subsequent hospital visit by physician [facility] Laboratory Comment on above: Screening for cervic al cancer Start: 12-19-2018 End: 12-19-2018 Subsequent hospital visit by physician [facility] Comment on above: Encounter for superv ision of normal in first trimester, unspecified ; Screening for cystic fibrosis; Screening, , for anatomic survey Start: 12-03-2018 End: 12-03-2018 Emergency department patient visit [facility] ED Comment on above: Threatened miscarria ge (Primary Dx); Yeast infection Procedures Date Procedure Procedure Detail Performing Clinician Start: 03-23-2024 MM TOMOSYNTHESIS SCR EENING BI Niya Santiago PRESS OPERATOR ASSISTANT Work Phone: Start: 03-23-2024 Mammography Niya noble PRESS OPERATOR ASSISTANT Work Phone: Start: 03-01-2024 IGP,APTIMA HPV,AGE GDLN Niya Santiago PRESS OPERATOR ASSISTANT Work Phone: Start: 03-01-2024 Microscopic observat ion [Identifier] in Cervix by Cyto stain Niya Santiago PRESS OPERATOR ASSISTANT Work Phone: Start: 05-26-2023 C-reactive protein Fariba Hill APRN.ASSEMBLY LINE LEADER Work Phone: Start: 05-26-2023 CREATININE BLD Fariba iverson REPAIRER MAINTENANCE BUILDING.ASSEMBLY LINE LEADER Work Phone: Start: 05-26-2023 Transferase alanine amino alt sgpt Fariba Hill APRN.ASSEMBLY LINE LEADER Work Phone: Start: 11-27-2022 Blood count complete auto&auto difrntl wbc Fariba Hill REPAIRER MAINTENANCE BUILDING.ASSEMBLY LINE LEADER Work Phone: Start: 11-27-2022 C-reactive protein Fariba Hill REPAIRER MAINTENANCE BUILDING.ASSEMBLY LINE LEADER Work Phone: Start: 10-22-2022 Blood count complete auto&auto difrntl wbc Fariba Hill REPAIRER MAINTENANCE BUILDING.ASSEMBLY LINE LEADER Work Phone: Start: 10-22-2022 C-reactive protein Fariba Hill REPAIRER MAINTENANCE BUILDING.ASSEMBLY LINE LEADER Work Phone: Start: 06-23-2022 Blood count complete auto&auto difrntl wbc Fariba Hill REPAIRER MAINTENANCE BUILDING.ASSEMBLY LINE LEADER Work Phone: Start: 02-24-2022 Blood count complete auto&auto difrntl wbc Fariba Hill REPAIRER MAINTENANCE BUILDING.ASSEMBLY LINE LEADER Work Phone: Start: 02-24-2022 C-reactive protein Fariba Hill REPAIRER MAINTENANCE BUILDING.ASSEMBLY LINE LEADER Work Phone: Start: 01-05-2022 25 hydroxy includes fractions if performed Fariba Hill REPAIRER MAINTENANCE BUILDING.ASSEMBLY LINE LEADER Work Phone: Start: 09-03-2021 Urine test visual color cmprsn meths Fariba Hill REPAIRER MAINTENANCE BUILDING.ASSEMBLY LINE LEADER Work Phone: Start: 08-06-2021 Urine test visual color cmprsn meths Fariba Hill REPAIRER MAINTENANCE BUILDING.ASSEMBLY LINE LEADER Work Phone: Start: 07-23-2021 Urine test visual color cmprsn meths Fariba Hill REPAIRER MAINTENANCE BUILDING.ASSEMBLY LINE LEADER Work Phone: Start: 09-15-2020 Radiologic exam ches [...] Work Phone: Start: 04-04-2019 Iaadiadoo influenza Elda Viera Work Phone: Start: 2019 Us abdominal real ti me w/image limited Tosha Viera REPAIRER MAINTENANCE BUILDING - CNM Work Phone: Start: 01-16-2019 Microscopic observat ion [Identifier] in Cervix by Cyto stain Niya Santiago PRESS OPERATOR ASSISTANT Work Phone: Start: 12-19-2018 Antibody screen Start: 12-19-2018 Obstetric panel Tosha Viera Work Phone: Start: 12-19-2018 Blood typing serologic abo Tosha Viera Work Phone: Start: 12-19-2018 Drug screen, qualitate/multi Tosha Viera Work Phone: Start: 12-03-2018 Urinalysis microscopic only Loida Gordo Work Phone: Start: 12-03-2018 Urnls dip stick/tabl et rgnt auto w/o microscopy [employer] Work Phone: Start: 12-03-2018 Smr prim src wet jude nt nfct agt [employer] Work Phone: Start: 12-03-2018 Blood count complete automated [employer] Work Phone: Start: 12-03-2018 Blood typing serologic abo [employer] Work Phone: Start: 12-03-2018 Comprehensive metabo lic panel [employer] Work Phone: Start: 12-03-2018 Gonadotropin chorion ic quantitative [employer] Work Phone: Start: 12-30-2017 Adult depression scr eening assessment Juan Daniel Leos MD Work Phone: Plan of Treatment Date Care Activity Detail Author Start: 06-03-2031 Urine microalbumin profile [facility] Start: 03-01-2027 Screening for malignant neoplasm of cervix [facility] Start: 03-23-2025 Screening for malignant neoplasm of breast [facility] Start: 08-24-2024 End: 08-24-2024 Patient encounter procedure 08/24/2024 9:20 AM EDT Office [facility] [address] [place] [id number] Niya Santiago NP [address] [place] [phone] [facility] Start: 08-04-2024 End: 08-04-2024 Patient encounter procedure 08/04/2024 9:00 AM EDT Office Visit Rheumatology [address] [place] [address] Craig Wade MD [address] [place] [address] Return in about 3 months (around 06/28/2024). Rheumatology Comment on above: Return in about 3 months (around ). Start: 07-27-2024 End: 07-27-2024 Patient encounter procedure 07/27/2024 9:00 AM EDT Office [facility] [address] [place] [address] Niya Santiago NP [address] [place] [id number] [facility] Start: 04-26-2024 End: 04-26-2024 Patient encounter procedure 04/26/2024 1:00 PM EST Office [facility] [address] [place] [address] Niya Santiago NP [address] [place] [address] [facility] [employer] Start: 04-03-2024 End: 07-03-2024 BLOOD TB SCREEN BLOOD TB SCREEN Lab Routine Seropositive rheumatoid arthritis (HCC) Expected: 04/03/2024, Expires: 07/03/2024 [facility] Comment on above: Expected: 04/03/2024, Expires: Start: 04-03-2024 End: 07-03-2024 Hepatitis B virus core Ab [Presence] in Serum HEPATITIS B CORE ANTIBODY TOTAL Lab Routine Seropositive rheumatoid arthritis (HCC) Expected: 04/03/2024, Expires: 07/03/2024 [facility] Comment on above: Expected: 04/03/2024, Expires: Start: 04-03-2024 End: 07-03-2024 Hepatitis B virus surface Ab [Presence] in Serum HEPATITIS B SURFACE ANTIBODY Lab Routine Seropositive rheumatoid arthritis (HCC) Expected: 04/03/2024, Expires: 07/03/2024 [facility] Work Phone: Comment on above: Expected: 04/03/2024, Expires: Start: 04-03-2024 End: 07-03-2024 Hepatitis B virus surface Ag [Presence] in Serum HEPATITIS B SURFACE ANTIGEN Lab Routine Seropositive rheumatoid arthritis (HCC) Expected: 04/03/2024, Expires: 07/03/2024 [facility] Comment on above: Expected: 04/03/2024, Expires: Start: 04-03-2024 End: 07-03-2024 Hepatitis C virus Ab [Presence] in Serum HEPATITIS C ANTIBODY IA WITH CONFIRMATION Lab Routine Seropositive rheumatoid arthritis (HCC) Expected: 04/03/2024, Expires: 07/03/2024 [facility] Comment on above: Expected: 04/03/2024, Expires: Start: 03-31-2024 End: 06-30-2024 C reactive protein [Mass/volume] in Serum or Plasma C-REACTIVE PROTEIN Lab Routine Seropositive rheumatoid arthritis (HCC) Expected: 03/31/2024, Expires: 06/30/2024 [facility] Comment on above: Expected: 03/31/2024, Expires: Start: 03-31-2024 End: 06-30-2024 CBC W Auto Differential panel - Blood COMPLETE BLOOD COUNT AND DIFFERENTIAL Lab Routine Seropositive rheumatoid arthritis (HCC) Expected: 03/31/2024, Expires: 06/30/2024 [facility] Comment on above: Expected: 03/31/2024, Expires: Start: 03-31-2024 End: 06-30-2024 Comprehensive metabolic 2000 panel - Serum or Plasma COMPREHENSIVE METABOLIC PANEL Lab Routine Seropositive rheumatoid arthritis (HCC) Expected: 03/31/2024, Expires: 06/30/2024 [facility] Work Phone: Comment on above: Expected: 03/31/2024, Expires: Start: 03-31-2024 End: 06-30-2024 Erythrocyte sedimentation rate SEDIMENTATION RATE, WESTERGREN Lab Routine Seropositive rheumatoid arthritis (HCC) Expected: 03/31/2024, Expires: 06/30/2024 [facility] Comment on above: Expected: 03/31/2024, Expires: Start: 02-28-2024 End: 02-28-2024 Patient encounter procedure 02/28/2024 10:30 AM EST Procedure [facility] [address] [place] [address] Niya Santiago NP [address] [place] [address] [facility] Start: 2024 Screening for malignant neoplasm of breast Mammogram [facility] Start: 01-18-2024 End: 01-18-2024 Patient encounter procedure 01/18/2024 9:40 AM EST Office [facility] [address] [place] [address] Niya Santiago NP [address] [place] [address] [facility] Start: 01-17-2024 Cervical cancer screen Cervical cancer screen [facility] BRIAN OLGUIN Start: 01-17-2024 Screening for malignant neoplasm of cervix [facility] Start: 11-10-2023 End: 11-10-2023 ambulatory 11/10/2023 11:30 AM EDT [facility] [address] [place] [address] [facility] Comment on above: [facility] Start: 11-10-2023 End: 11-10-2023 Patient encounter procedure 11/10/2023 11:00 AM EDT Office Visit Rheumatology [address] [place] [address] Fariba Hill, REPAIRER MAINTENANCE BUILDING.ASSEMBLY LINE LEADER [address] [facility] [place] [address] Add on per Fariba Hill Rheumatology Comment on above: Add on per Fariba Hill Start: 10-29-2023 End: 10-29-2023 ambulatory 10/29/2023 7:30 AM EDT [facility] [address] [place] [address] [facility] Comment on above: [facility] Start: 10-24-2023 Influenza vaccination [facility] Start: 10-21-2023 End: 10-20-2024 CBC W Auto Differential panel - Blood CBC and differential Lab Routine Neutropenia, unspecified (CMS/HCC) Expected: 10/21/2023 (Approximate), Expires: 10/20/2024 [facility] Work Phone: Comment on above: Expected: 10/21/2023 (Approximate), Expi res: 10/20/2024 Start: 10-13-2023 End: 10-13-2023 ambulatory 10/13/2023 11:30 AM EDT [facility] [address] [facility] [place] [address] [facility] Comment on above: [facility] Start: 10-13-2023 End: 10-13-2023 Patient encounter procedure 10/13/2023 11:00 AM EDT Office Visit Rheumatology [address] [place] [address] Fariba Hill, REPAIRER MAINTENANCE BUILDING.ASSEMBLY LINE LEADER [address] [facility] [place] [address] Add on per Fariba Hill Rheumatology Comment on above: Add on per Fariba Hill Start: 10-01-2023 End: 10-01-2023 ambulatory 10/01/2023 1:30 PM EDT [facility] [address] [facility] [place] [address] [facility] Comment on above: [facility] Start: 09-15-2023 End: 09-15-2023 Patient encounter procedure 09/15/2023 1:00 PM EDT Office Visit Rheumatology [address] [place] [address] Fariba Hill, REPAIRER MAINTENANCE BUILDING.ASSEMBLY LINE LEADER [address] [facility] [place] [address] Add on per Fariba Hill Rheumatology Comment on above: Add on per Fariba Hill Start: 09-03-2023 End: 09-03-2023 ambulatory 09/03/2023 7:30 AM EDT [facility] [address] [place] [address] [facility] Comment on above: [facility] Start: 08-18-2023 End: 08-18-2023 ambulatory 08/18/2023 11:30 AM EDT [facility]fusion [address] [facility] [place] [address] [facility] Comment on above: [facility] Start: 07-21-2023 End: 07-21-2023 Patient encounter procedure 07/21/2023 1:00 PM EDT Office Visit Rheumatology [address] [place] [address] Fariba Hill, REPAIRER MAINTENANCE BUILDING.ASSEMBLY LINE LEADER [address] [facility] [place] [address] Add on per Fariba Hill Rheumatology Comment on above: Add on per Fariba Hill Start: 07-21-2023 End: 07-21-2023 ambulatory 07/21/2023 11:30 AM EDT Infusion Center Infusion [address] [place] [address] [facility] Comment on above: [facility] Start: 06-23-2023 End: 06-23-2023 ambulatory Infusion Comment on above: [facility] Needs to be at work at 2:00 Start: 06-23-2023 End: 06-23-2023 Patient encounter procedure 06/23/2023 10:30 AM EDT Office Visit Rheumatology [address] [facility] [place] [address] Fariba Hill, REPAIRER MAINTENANCE BUILDING.ASSEMBLY LINE LEADER [address] [facility] [place] [address] Add on per Fariba Hill Rheumatology Comment on above: Add on per Fariba Hill Start: 02-22-2023 Behavioral Health Screening Behavioral Health Screening [facility] Start: 02-22-2023 Depression Assessment Depression Assessment [facility] Start: 01-18-2023 End: 04-19-2023 Alanine aminotransferase [Enzymatic activity/volume] in Serum or Plasma ALT/SGPT Lab Routine Seropositive rheumatoid arthritis (HCC) Expected: 01/18/2023 (Approximate), Expires: 04/19/2023 [facility] Work Phone: Comment on above: Expected: 01/18/2023 (Approximate), Expi res: 04/19/2023 Start: 01-18-2023 End: 04-19-2023 Aspartate aminotransferase [Enzymatic activity/volume] in Serum or Plasma AST/SGOT BLD Lab Routine Seropositive rheumatoid arthritis (HCC) Expected: 01/18/2023 (Approximate), Expires: 04/19/2023 [facility] Work Phone: Comment on above: Expected: 01/18/2023 (Approximate), Expi res: 04/19/2023 Start: 01-18-2023 End: 04-19-2023 CBC W Auto Differential panel - Blood CBC + DIFF Lab Routine Seropositive rheumatoid arthritis (HCC) Expected: 01/18/2023 (Approximate), Expires: 04/19/2023 [facility] Work Phone: Comment on above: Expected: 01/18/2023 (Approximate), Expi res: 04/19/2023 Start: 01-18-2023 End: 04-19-2023 CREATININE BLD CREATININE BLD Lab Routine Seropositive rheumatoid arthritis (HCC) Expected: 01/18/2023 (Approximate), Expires: 04/19/2023 [facility] Work Phone: Comment on above: Expected: 01/18/2023 (Approximate), Expi res: 04/19/2023 Start: 12-12-2022 End: 02-11-2023 C reactive protein [Mass/volume] in Serum or Plasma C-REACTIVE PROTEIN (CRP) Lab Routine Seropositive rheumatoid arthritis (HCC) Expected: 12/12/2022 (Approximate), Expires: 02/11/2023 [facility] Work Phone: Comment on above: Expected: 12/12/2022 (Approximate), Expi res: 02/11/2023 Start: 12-12-2022 End: 02-11-2023 CBC W Auto Differential panel - Blood CBC + DIFF Lab Routine Seropositive rheumatoid arthritis (HCC) Expected: 12/12/2022 (Approximate), Expires: 02/11/2023 [facility] Work Phone: Comment on above: Expected: 12/12/2022 (Approximate), Expi res: 02/11/2023 Start: 12-12-2022 End: 02-11-2023 Comprehensive metabolic 2000 panel - Serum or Plasma COMP METABOLIC PANEL Lab Routine Seropositive rheumatoid arthritis (HCC) Expected: 12/12/2022 (Approximate), Expires: 02/11/2023 [facility] Work Phone: Comment on above: Expected: 12/12/2022 (Approximate), Expi res: 02/11/2023 Start: 12-12-2022 End: 02-11-2023 Erythrocyte sedimentation rate SED RATE WESTERGREN Lab Routine Seropositive rheumatoid arthritis (HCC) Expected: 12/12/2022 (Approximate), Expires: 02/11/2023 [facility] Work Phone: Comment on above: Expected: 12/12/2022 (Approximate), Expi res: 02/11/2023 Start: 12-11-2022 End: 03-12-2023 Alanine aminotransferase [Enzymatic activity/volume] in Serum or Plasma ALT/SGPT Lab Routine Seropositive rheumatoid arthritis (HCC) Expected: 12/11/2022, Expires: 03/12/2023 [facility] Work Phone: Comment on above: Expected: 12/11/2022, Expires: Start: 12-11-2022 End: 03-12-2023 Aspartate aminotransferase [Enzymatic activity/volume] in Serum or Plasma AST/SGOT BLD Lab Routine Seropositive rheumatoid arthritis (HCC) Expected: 12/11/2022, Expires: 03/12/2023 [facility] Work Phone: Comment on above: Expected: 12/11/2022, Expires: Start: 10-23-2022 Influenza vaccination [facility] Start: 06-13-2022 End: 08-13-2022 25-hydroxyvitamin D3 [Mass/volume] in Serum or Plasma VITAMIN D 25 HYDROXY Lab Routine Vitamin D deficiency Expected: 06/13/2022 (Approximate), Expires: 08/13/2022 [facility] Work Phone: Comment on above: Expected: 06/13/2022 (Approximate), Expi res: 08/13/2022 Start: 06-12-2022 End: 08-12-2022 C reactive protein [Mass/volume] in Serum or Plasma C-REACTIVE PROTEIN (CRP) Lab Routine Seropositive rheumatoid arthritis (HCC) Expected: 06/12/2022 (Approximate), Expires: 08/12/2022 [facility] Work Phone: Comment on above: Expected: 06/12/2022 (Approximate), Expi res: 08/12/2022 Start: 06-12-2022 End: 08-12-2022 CBC W Auto Differential panel - Blood CBC + DIFF Lab Routine Seropositive rheumatoid arthritis (HCC) Expected: 06/12/2022 (Approximate), Expires: 08/12/2022 [facility] Work Phone: Comment on above: Expected: 06/12/2022 (Approximate), Expi res: 08/12/2022 Start: 06-12-2022 End: 08-12-2022 Comprehensive metabolic 2000 panel - Serum or Plasma COMP METABOLIC PANEL Lab Routine Seropositive rheumatoid arthritis (HCC) Expected: 06/12/2022 (Approximate), Expires: 08/12/2022 [facility] Work Phone: Comment on above: Expected: 06/12/2022 (Approximate), Expi res: 08/12/2022 Start: 06-12-2022 End: 08-12-2022 Erythrocyte sedimentation rate SED RATE WESTERGREN Lab Routine Seropositive rheumatoid arthritis (HCC) Expected: 06/12/2022 (Approximate), Expires: 08/12/2022 [facility] Work Phone: Comment on above: Expected: 06/12/2022 (Approximate), Expi res: 08/12/2022 Start: 04-14-2022 End: 06-14-2022 25-hydroxyvitamin D3 [Mass/volume] in Serum or Plasma [facility] Work Phone: Comment on above: Expected: 04/14/2022, Expires: Start: 02-22-2022 DEPRESSION ASSESSMENT DEPRESSION ASSESSMENT [facility] Start: 01-16-2022 Screening for malignant neoplasm of cervix Pap Smear [facility] Start: 11-12-2021 End: 01-12-2022 25-hydroxyvitamin D3 [Mass/volume] in Serum or Plasma VITAMIN D 25 HYDROXY Lab Routine Vitamin D deficiency Expected: 11/12/2021, Expires: 01/12/2022 [facility] Work Phone: Comment on above: Expected: 11/12/2021, Expires: Start: 11-12-2021 End: 01-12-2022 C reactive protein [Mass/volume] in Serum or Plasma C-REACTIVE PROTEIN (CRP) Lab Routine Seropositive rheumatoid arthritis (HCC) Expected: 11/12/2021, Expires: 01/12/2022 [facility] Work Phone: Comment on above: Expected: 11/12/2021, Expires: 2 Start: 11-12-2021 End: 01-12-2022 CBC W Auto Differential panel - Blood CBC + DIFF Lab Routine Seropositive rheumatoid arthritis (HCC) Expected: 11/12/2021, Expires: 01/12/2022 [facility] Work Phone: Comment on above: Expected: 11/12/2021, Expires: 2 Start: 11-12-2021 End: 01-12-2022 Comprehensive metabolic 2000 panel - Serum or Plasma COMP METABOLIC PANEL Lab Routine Seropositive rheumatoid arthritis (HCC) Expected: 11/12/2021, Expires: 01/12/2022 [facility] Work Phone: Comment on above: Expected: 11/12/2021, Expires: 2 Start: 11-12-2021 End: 01-12-2022 Erythrocyte sedimentation rate SED RATE WESTERGREN Lab Routine Seropositive rheumatoid arthritis (HCC) Expected: 11/12/2021, Expires: 01/12/2022 [facility] Work Phone: Comment on above: Expected: 11/12/2021, Expires: 2 Start: 10-23-2021 Influenza vaccination [facility] Start: 09-06-2021 End: 11-06-2021 25-hydroxyvitamin D3 [Mass/volume] in Serum or Plasma VITAMIN D 25 HYDROXY Lab Routine Vitamin D deficiency Expected: 09/06/2021 (Approximate), Expires: 11/06/2021 [facility] Work Phone: Comment on above: Expected: 09/06/2021 (Approximate), Expi res: 11/06/2021 Start: 09-06-2021 End: 11-06-2021 Comprehensive metabolic 2000 panel - Serum or Plasma COMP METABOLIC PANEL Lab Routine Seropositive rheumatoid arthritis (HCC) Expected: 09/06/2021 (Approximate), Expires: 11/06/2021 [facility] Work Phone: Comment on above: Expected: 09/06/2021 (Approximate), Expi res: 11/06/2021 Start: 08-16-2021 End: 10-16-2021 CBC W Auto Differential panel - Blood CBC + DIFF Lab Routine Seropositive rheumatoid arthritis (HCC) Expected: 08/16/2021 (Approximate), Expires: 10/16/2021 [facility] Work Phone: Comment on above: Expected: 08/16/2021 (Approximate), Expi res: 10/16/2021 Start: 08-16-2021 End: 10-16-2021 Comprehensive metabolic 2000 panel - Serum or Plasma COMP METABOLIC PANEL Lab Routine Seropositive rheumatoid arthritis (HCC) Expected: 08/16/2021 (Approximate), Expires: 10/16/2021 [facility] Work Phone: Comment on above: Expected: 08/16/2021 (Approximate), Expi res: 10/16/2021 Start: 02-22-2021 DEPRESSION ASSESSMENT DEPRESSION ASSESSMENT [facility] Start: 10-23-2020 Influenza vaccination Flu vaccine (#1) [facility] Work Phone: Start: 12-04-2019 Creatinine measurement Creatinine monitoring [facility], [place] Start: 12-04-2019 Creatinine monitoring Creatinine monitoring [place], [place] Start: 12-04-2019 Potassium monitoring Potassium monitoring [place], [place] Start: 11-19-2019 Creatinine monitoring Creatinine monitoring [place], [place] Start: 11-19-2019 Potassium monitoring Potassium monitoring [facility], [place] Start: 10-24-2019 Influenza vaccination [place], [place] Start: 08-29-2019 End: 08-29-2019 Visit 08/29/2019 Visit Obstetrics and Gynecology Tosha Viera APRN - CNM [address] [place] [address] [facility] Start: 07-26-2019 End: 07-26-2019 Visit 07/26/2019 Visit Obstetrics and Gynecology Tosha Viera APRN - CNM [address] [place] [address] [facility] Start: 07-13-2019 End: 07-13-2019 Ancillary Procedure [facility] Start: 05-18-2019 End: 05-18-2019 Ancillary Procedure [facility] Start: 05-12-2019 End: 05-11-2020 VL DUP UPPER EXTREMITY VENOUS LEFT VL DUP UPPER EXTREMITY VENOUS LEFT Imaging Routine Superficial thrombophlebitis of left upper extremity Expected: 05/12/2019, Expires[facility] on above: Expected: 05/12/2019, Expires: Start: 05-08-2019 End: 05-08-2019 Routine [facility] LICENSED MARRIAGE AND FAMILY THERAPIST Start: 05-02-2019 End: 05-02-2019 Appointment 05/02/2019 Appointment Infusion Therapy [facility] ([facility]) Start: 04-24-2019 End: 04-24-2019 Routine 04/24/2019 Routine Obstetrics and Gynecology Tosha Viera, [place] - [address] [address] [phone] [facility] Start: 02-28-2019 End: 02-28-2019 Routine [facility] LICENSED MARRIAGE AND FAMILY THERAPIST Start: 02-13-2019 End: 02-13-2019 Routine 02/13/2019 Routine Obstetrics and Gynecology Tosha Viera APRN - CN [address] [place] [address] [phone] [facility] LICENSED MARRIAGE AND FAMILY THERAPIST Start: 01-16-2019 End: 01-16-2019 Routine 01/16/2019 Routine Obstetrics and Gynecology Tosha Viera APRN - CN [address] [place] [id number] [facility] LICENSED MARRIAGE AND FAMILY THERAPIST Start: 12-30-2018 Adult depression screening assessment DEPRESSION SCREENING [facility] Start: 12-19-2018 End: 12-19-2018 Initial 12/19/2018 Initial Obstetrics and Gynecology [facility] LICENSED MARRIAGE AND FAMILY THERAPIST Start: 10-23-2018 Influenza vaccination Flu vaccine (#1) [place], [place] Start: 02-16-2014 HPV TESTING HPV TESTING [facility] Start: 02-16-2014 Screening for malignant neoplasm of cervix HPV Testing [facility] Start: 02-16-2005 Cervical cancer screen Cervical cancer screen [place], [place] Start: 02-16-2005 PAP TESTING PAP TESTING [facility] Start: 02-16-2005 Screening for malignant neoplasm of cervix Pap Testing [facility] Start: 02-16-2003 DTaP/Tdap/Td vaccine (1 - Tdap) DTaP/Tdap/Td vaccine (1 - Tdap) [place], [place] Start: 02-16-2003 Hepatitis B Vaccine (1 of 3 - 19+ 3-dose series) Hepatitis B Vaccine (1 of 3 - 19+ 3-dose series) [facility] Start: 02-16-2003 Pneumococcal vaccination Pneumococcal Vaccine (1 of 2 - PCV) [facility] Start: 02-16-2003 SHINGRIX VACCINE (1 of 2) SHINGRIX VACCINE (1 of 2) [facility] Start: 02-16-2003 Urine microalbumin profile DTAP,TDAP,TD (1 - Tdap) [facility] Start: 02-16-2002 Anxiety Screening Anxiety Screening [facility] Start: 02-16-2002 Depression Screening Depression Screening [facility] Start: 02-16-1997 Varicella Vaccine (1 of 2 - 13+ 2-dose series) Varicella Vaccine (1 of 2 - 13+ 2-dose series) [place], [place] Start: 1996 COVID-19 Vaccine (1) COVID-19 Vaccine (1) [facility] Work Phone: Start: 02-16-1995 DTaP/Tdap/Td vaccine (1 - Tdap) DTaP/Tdap/Td vaccine (1 - Tdap) [place] Start: 02-16-1995 Screening for malignant neoplasm of cervix Cervical Cancer Screening [facility] Start: 02-16-1990 PNEUMOCOCCAL (1 - PCV) PNEUMOCOCCAL (1 - PCV) [facility] Start: 02-16-1990 Pneumococcal 0-64 years Vaccine (1 of 1 - PPSV23) Pneumococcal 0-64 years Vaccine (1 of 1 - PPSV23) [place] Start: 02-16-1990 Pneumococcal 0-64 years Vaccine (1 of 2 - PPSV23) Pneumococcal 0-64 years Vaccine (1 of 2 - PPSV23) [facility] Work Phone: Start: 02-16-1990 Pneumococcal vaccination [facility] Start: 02-16-1989 COVID-19 VACCINE (#1) COVID-19 VACCINE (#1) [facility] Start: 02-16-1985 Varicella Vaccine (1 of 2 - 2-dose childhood series) Varicella Vaccine (1 of 2 - 2-dose childhood series) [place], [place] Start: 1984 COVID-19 VACCINE (#1) COVID-19 VACCINE (#1) [facility] Start: 1984 HEPATITIS B (1 of 3 - 3-dose series) HEPATITIS B (1 of 3 - 3-dose series) [facility] Start: 1984 Hepatitis B Vaccine (1 of 3 - 3-dose series) Hepatitis B Vaccine (1 of 3 - 3-dose series) [facility] 25-hydroxyvitamin D3 [Mass/volume] in Serum or Plasma VITAMIN D 25 HYDROXY Lab Routine Vitamin D deficiency 08/06/2021 1:42 PM EDT [facility] Work Phone: 25-hydroxyvitamin D3 [Mass/volume] in Serum or Plasma VITAMIN D 25 HYDROXY Lab Routine Vitamin D deficiency 09/03/2021 1:27 PM EDT [facility] Work Phone: 25-hydroxyvitamin D3 [Mass/volume] in Serum or Plasma VITAMIN D 25 HYDROXY Lab Routine Vitamin D deficiency 11/13/2021 1:41 PM EDT [facility] Work Phone: 25-hydroxyvitamin D3 [Mass/volume] in Serum or Plasma VITAMIN D 25 HYDROXY Lab Routine Vitamin D deficiency 06/23/2022 12:40 PM EDT [facility] Work Phone: End: 12-19-2018 Bacteria identified Cx Nom (U) Urine Culture Microbiology Routine Encounter for supervision of normal in first trimester, unspecified 1 Occurrences starting 12/19/2018 until 12/19/2018 [place], [place] Comment on above: 1 Occurrences starting 12/19/2018 until 12/19/2018 Bacteria identified Cx Nom (U) Urine Culture Microbiology Routine Encounter for supervision of normal in first trimester, unspecified [facility] reactive protein [Mass/volume] in Serum or Plasma C-REACTIVE PROTEIN (CRP) Lab Routine Seropositive rheumatoid arthritis ([facility]) 11/13/2021 1:41 PM T [facility] Work Phone: C reactive protein [Mass/volume] in Serum or Plasma C-REACTIVE PROTEIN (CRP) Lab Routine Seropositive rheumatoid arthritis ([facility]) 06/23/2022 12:40 PM T [facility] Work Phone: End: 12-19-2018 C.trachomatis N.gonorrhoeae DNA, Urine C.trachomatis N.gonorrhoeae DNA, Urine Microbiology Routine Encounter for supervision of normal in first trimester, unspecified 1 Occurrences starting 12/19/2018 until 12/19/2018 [facility]: 1 Occurrences starting 12/19/2018 until 12/19/2018 C.trachomatis N.gonorrhoeae DNA, Urine C.trachomatis N.gonorrhoeae DNA, Urine Microbiology Routine Encounter for supervision of normal in first trimester, unspecified 12/19/2018 6:28 PM [facility]T [facility] CBC W Auto Different ial panel - Blood CBC + DIFF Lab Routine Seropositive rheumatoid arthritis ([facility]) 08/06/2021 1:42 PM [facility] Work Phone: CBC W Auto Different ial panel - Blood CBC + DIFF Lab Routine Seropositive rheumatoid arthritis ([facility]) 11/13/2021 1:41 PM [facility] Work Phone: Comprehensive metabo lic 2000 panel - Serum or Plasma COMP METABOLIC PANEL Lab Routine Seropositive rheumatoid arthritis ([facility]) 08/06/2021 1:42 PM [facility] Work Phone: Comprehensive metabo lic 2000 panel - Serum or Plasma COMP METABOLIC PANEL Lab Routine Seropositive rheumatoid arthritis ([facility]) 09/03/2021 1:27 PM EDT [facility] Work Phone: Comprehensive metabo lic 2000 panel - Serum or Plasma COMP METABOLIC PANEL Lab Routine Seropositive rheumatoid arthritis ([facility]) 11/13/2021 1:41 PM EDT [facility] Work Phone: Comprehensive metabo lic 2000 panel - Serum or Plasma COMP METABOLIC PANEL Lab Routine Seropositive rheumatoid arthritis ([facility]) 06/23/2022 12:40 PM EDT [facility] Work Phone: End: 03-15-2020 COVID-19, PCR COVID-19, PCR Lab Routine One Time for 1 Occurrences starting 03/15/2020 until 03/15/2020 [facility] [place] Comment on above: One Time for 1 Occurrences starting 02/23 until 03/15/2020 COVID-19, PCR COVID-19, PCR La b STAT 03/15/2020 4:30 PM EST [place] End: 07-06-2019 Culture, Strep B Screen, Vaginal/Rectal Culture, Strep B Screen, Vaginal/Rectal Microbiology Routine 38 weeks gestation of 1 Occurrences starting 07/06/2019 until 07/06/2019 [facility] [place] Comment on above: 1 Occurrences starting 07/06/2019 until 07/06/2019 Culture, Strep B Scr een, Vaginal/Rectal Culture, Strep B Screen, Vaginal/Rectal Microbiology Routine 38 weeks gestation of 07/06/2019 4:09 PM EDT [place] End: 12-19-2018 Cystic Fibrosis Gene Test Cystic Fibrosis Gene Test Lab Routine Encounter for supervision of normal in first trimester, unspecified Screening for cystic fibrosis 1 Occurrences starting 12/19/2018 until 12/19/2018 [facility] [place] Comment on above: 1 Occurrences starting 12/19/2018 until 12/19/2018 End: 01-16-2019 Cytopathology procedure, preparation of smear, genital source PAP SMEAR Lab Routine Screening for cervical cancer 1 Occurrences starting 01/16/2019 until 01/16/2019 [facility] [place] Comment on above: 1 Occurrences starting 01/16/2019 until 01/16/2019 Erythrocyte sediment ation rate SED RATE WESTERGREN Lab Routine Seropositive rheumatoid arthritis ([facility]) 11/13/2021 1:41 PM EDT [facility] Work Phone: End: 04-04-2019 FLU A/B, MOLECULAR FLU A/B, MOLECULAR Microbiology Routine Once for 1 Occurrences starting 04/04/2019 until 04/04/2019 [employer] Phone: Comment on above: Once for 1 Occurrences starting 04/04/19 20 until 04/04/2019 FLU A/B, MOLECULAR FLU A/B, MOLE CULAR Microbiology Routine 04/04/2019 11:47 AM EST [employer] Phone: End: 12-19-2018 Hepatitis C Antibody Hepatitis C Antibody Lab Routine Encounter for supervision of normal in first trimester, unspecified 1 Occurrences starting 12/19/2018 until 12/19/2018 [facility] [place] Comment on above: 1 Occurrences starting 12/19/2018 until 12/19/2018 Hepatitis C Antibody Hepatitis C Antibody Lab Routine Encounter for supervision of normal in first trimester, unspecified 12/19/2018 6:24 PM EDT [facility] [place] End: 12-19-2018 HIV Screen HIV Screen Lab Routine Encounter for supervision of normal in first trimester, unspecified 1 Occurrences starting 12/19/2018 until 12/19/2018 [facility] [place] Comment [place] above: 1 Occurrences starting 12/19/2018 until 12/19/2018 HIV Screen HIV Screen Lab R outine Encounter for supervision of normal in first trimester, unspecified 12/19/2018 6:24 PM EDT [facility] [place] PROFILE I PROF ILE I Lab Routine Encounter for supervision of normal in first trimester, unspecified 12/19/2018 6:28 PM EDT [facility] [place] End: 12-19-2018 Testing for Aneuploidy Testing for Aneuploidy Lab Routine Encounter for supervision of normal in first trimester, unspecified 1 Occurrences starting 12/19/2018 until 12/19/2018 [facility] on above: 1 Occurrences starting 12/19/2018 until 12/19/2018 Testing for Aneuploidy Testing for Aneuploidy Lab Routine Encounter for supervision of normal in first trimester, unspecified 12/19/2018 6:24 PM EDT [facility] [place] RHOGAM ANTEPARTUM RHOGAM ANTEPAR DAJA Blood Bank Routine Encounter for supervision of other normal in third trimester 29 weeks gestation of 05/01/2019 5:42 PM EDT [facility] INJECTION ONLY RHOGAM INJ ECTION ONLY Blood Bank STAT 12/03/2018 5:56 PM EDT [facility] End: 07-12-2019 RHOGAM RHOGAM Blood Bank Routine One Time for 1 Occurrences starting 07/12/2019 until 07/12/2019 [facility] [place] Comment on above: One Time for 1 Occurrences starting 06/23 until 07/12/2019 End: 05-27-2024 US Extremity - left US EXTREMITY MASS/FLUID COLLECTION LEFT Radiology Routine Seropositive rheumatoid arthritis (HCC) Localized superficial swelling, mass, or lump 1 Occurrences starting 04/28/2023 until 05/27/2024 [facility] Work Phone: Comment on above: 1 Occurrences starting 04/28/2023 until 05/27/2024 US GALLBLADDER RUQ US GALLBLADDE R RUQ Imaging Routine Right upper quadrant abdominal pain 2019 11:13 AM [facility] [employer] Work Phone: End: 05-27-2024 US Upper extremity - left US ELBOW LEFT Radiology Routine Localized superficial swelling, mass, or lump Seropositive rheumatoid arthritis (HCC) 1 Occurrences starting 04/28/2023 until 05/27/2024 [facility] Work Phone: Comment on above: 1 Occurrences starting 04/28/2023 until 05/27/2024 XR Foot - bilateral AP and Lateral and oblique XR FOOT GENERAL 3V AP/LAT/OBL BILATERAL Radiology Routine Seropositive rheumatoid arthritis (HCC) 04/14/2022 2:47 PM [facility] Work Phone: End: 03-26-2023 XR FOOT GENERAL 3V AP/LAT/OBL BILATERAL XR FOOT GENERAL 3V AP/LAT/OBL BILATERAL Radiology Routine Seropositive rheumatoid arthritis (HCC) 1 Occurrences starting 02/24/2022 until 03/26/2023 [facility] Work Phone: Comment on above: 1 Occurrences starting 02/24/2022 until 03/26/2023 End: 03-30-2023 XR FOOT GENERAL 3V AP/LAT/OBL BILATERAL XR FOOT GENERAL 3V AP/LAT/OBL BILATERAL Radiology Routine Seropositive rheumatoid arthritis (HCC) 1 Occurrences starting 02/28/2022 until 03/30/2023 [facility] Work Phone: Comment on above: 1 Occurrences starting 02/28/2022 until 03/30/2023 End: 11-21-2023 XR FOOT GENERAL 3V AP/LAT/OBL BILATERAL XR FOOT GENERAL 3V AP/LAT/OBL BILATERAL Radiology Routine Seropositive rheumatoid arthritis (HCC) 1 Occurrences starting 10/22/2022 until 11/21/2023 [facility] Work Phone: Comment on above: 1 Occurrences starting 10/22/2022 until 11/21/2023 [facility] Immunizations Immunization Date Immunization Notes Care Provider Devi biggs 06-02-2021 diphtheria, tetanus toxoids and pertussis vaccine Fariba Hill APRN.CNP Work Phone: [facility] [place] [facility] 07-12-2019 diphtheria, tetanus toxoids and acellular pertussis vaccine, unspecified formulation [place], [place] 07-12-2019 measles, mumps and rubella virus vaccine [place], [place] 12-03-2018 RHO(D) immune globul in - [place], [place] Payers Date Payer Category Payer Medicaid [id number] 2020 Medicaid [employer]ICA[employer] [id number] 2020-Present [phone] [address] [place] [address] Medicaid [id number] 2019 Medicaid [id number] 2018 Unknown [employer]GE [employer] xxxxxxxxxxx 2018-Present [phone] [address] [place] [address] xxxxxxxxxxx [id number] 2018 Unknown [id number]. [id number] 1984 Unknown [id number] [id number] 1984 Unknown [id number] [id number] 1984 Unknown [id number] [id number] 1984 Unknown [id number] [id number] 1984 Unknown [id number] 2.16.840.1.756479.3.579.2.593 1984 Unknown [id number] 2.16.840.1.150487.3.579.2.593 1984 Unknown [id number] 2.16.840.1.025459.3.579.2.593 1984 Unknown [id number] 2.16.840.1.590177.3.579.2.593 1984 Unknown [id number] 2.16.840.1.567294.3.579.2.593 1984 Unknown [id number] 2.16.840.1.345146.3.579.2.1259 1984 Unknown [id number] 2.16.840.1.959194.3.579.2.1259 1984 Unknown [id number] 2.16.840.1.965085.3.579.2.1259 1984 Unknown [id number] 2.16.840.1.058644.3.579.2.1259 1984 Unknown [id number] [id number] 1984 Unknown [id number] [id number] 1959 Unknown [id number] Social History Date Type Detail Facility Start: 12-03-2018 End: 01-25-2023 Tobacco smoking status NHIS Current every day smoker [place], [place] Start: 04-22-2012 History of tobacco use Cigarette Smo ker [place] Start: 12-03-2018 End: 07-22-2023 Alcohol intake Not Currently [facility] Start: 10-24-2018 [place], [place] Start: 1985 Sex Assigned At Not on file [place] Start: 12-19-2018 End: 07-22-2023 Cigarettes smoked current (pack per day) - Reported [facility] [place] [facility] Start: 12-19-2018 End: 01-28-2019 Alcohol intake Ex-drinker (finding) [facility] Start: 06-23-2021 End: 07-03-2021 Exposure to SARS-CoV-2 (event) Unable to assess [place], [place] Start: 07-11-2019 Tobacco Comment patient declin es counseling [place] Start: 07-12-2019 End: 01-25-2023 Tobacco use and exposure Never used [place] Start: 11-02-2021 End: 11-12-2021 Exposure to SARS-CoV-2 (event) Not sure [facility] Start: 04-22-2012 End: 03-31-2024 Tobacco smoking status NHIS Light tobacco smoker [facility] [place] [facility] Start: 03-14-2021 End: 03-31-2024 Alcohol intake Current non-drinker of alcohol (finding) [facility] [place] [facility] Start: 04-22-2017 End: 04-14-2022 Tobacco Comment social smoker not everyday [facility] [place] [facility] Adult Depression Screening Assessment 1 [facility] [place] [facility] Start: 10-21-2023 End: 04-26-2024 Alcoholic beverage intake Lifetime non-drinker (finding) [facility] Clinical Notes 09-15-2020 to 05-11-2024 Telephone Encounter - Shaheen Byrd MA - 05/11/2024 7:07 AM EDTTelephone Encounter - Shaheen Byrd MA - 05/11/2024 7:07 AM EDTTelephone Encounter - Craig Wade MD - 05/10/2024 4:27 PM EDT Note Date & Type Note Facility 05-11-2024 Telephone encounter Note fax provided is [facility] fax number, call to [place] for lab fax([phone]) and orders faxed as requested. [facility] 05-11-2024 Miscellaneous Notes fax provided is [facility] fax number, call to [place] for lab fax([phone]) and orders faxed as requested. Labs were ordered in 03/2024. Thank you Any is calling Craig Wade MD today to request her lab orders be faxed over to [facility] at Patient has been identified by name and birthdate. Duration of symptoms: N/A Person calling: self Call patient at: at home [phone] (home) [phone] (cell) Was an appointment scheduled: No Closing statement: Results or non-symptom based questions: Thank you for calling [facility] [place] [facility], your call will be returned within the next business day. Prema Ortiz documented in this encounter [facility] 05-10-2024 Telephone encounter Note Labs were ordered in 03/2024. Thank you [facility] 05-10-2024 Telephone encounter Note Any is calling Craig Wade MD today to request her lab orders be faxed over to [facility] at Patient has been identified by name and birthdate. Duration of symptoms: N/A Person calling: self Call patient at: at home [phone] (home) [phone] (cell) Was an appointment scheduled: No Closing statement: Results or non-symptom based questions: Thank you for calling [facility], your call will be returned within the next business day. 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 No [...] provider is [facility] Continue treatment with them Neutropenia, unspecified (CMS/HCC) Was given lab order at last visit to recheck, no results received as of today's visit Cigarette nicotine dependence without complication The patient has been advised of the risks of continued smoking: stroke, CT, all forms of cancer, lung disease, and [...] of the risks of continued smoking: stroke, CT, all forms of cancer, lung disease, and [...] uncomplicated (CMS/HCC) Is taking suboxone, provider is [place] Continue treatment with them Associated Problem(s): Neutropenia, unspecified (CMS/HCC) Was given lab order at last visit to recheck, no results received as of today's visit Associated Problem(s): ADHD (attention deficit hyperactivity disorder), combined type (CMS/HCC) Has been taking Vyvanse at 50mg daily OARRS reviewed documented in this encounter [facility] 04-26-2024 Instructions Niya Santiago NP - 04/26/2024 1:00 PM EST Trial new inhaler: rinse mouth after use documented in this encounter [facility] 03-31-2024 History of Present illness Narrative [facility] received prescription(s) for Actemra from Dr. Wade's office. Benefits investigation was conducted, indicating that a prior authorization is required by patient's insurance plan with [facility]. Encounter will be updated once prior authorization has been submitted by [facility]. [facility] [phone] documented in this encounter [facility] 03-31-2024 Note HNO ID: [id number] Author: ?, ?, ? Service: ? Author Type: ? Type: Progress Notes Filed: 05/08/2024 14:25 Note Text: Actemra PA was initiated and pending review. Plan Name: [facility] Diaz: [id number] Nimco Ortez CPhT [facility] [phone] [facility] 03-31-2024 Note HNO ID: [id number] Author: ?, ?, ? Service: ? Author Type: ? Type: Progress Notes Filed: 03/31/2024 15:15 Note Text: [facility] received prescription(s) for Actemra from Dr. Wade's office. Benefits investigation was conducted, indicating that a prior authorization is required by patient's insurance plan with [facility]. Encounter will be updated once prior authorization has been submitted by [facility]. Nimco Ortez CPhT [facility] [phone] [facility] 03-31-2024 Note HNO ID: [id number] Author: MANSI LEONE RPh Service: ? Author Type: Pharmacist Type: Progress Notes Filed: 05/10/2024 07:39 Note Text: Actemra PA was denied with details listed below. Plan Name: [facility] Phone/ / [phone] Case ID - Denial reason: Negative TB [...] to low G6PD Methotrexate prior to seeing telemarketer in 2017 did not help Actemra infusion 11/2022- 05/2023 Actemra subcutaneous 03/2024 There is an option for written appeal or for [id number] review. If you would like to appeal, please provide a signed letter to [facility] and we can forward off to [facility]. If you would prefer to complete a [id number], one can be scheduled by calling [phone]. Joe WynnD Clinical Pharmacist, [employer] [facility] ; Pool: P [facility] Pool #: [id number] [facility] 03-31-2024 History of Present illness Narrative Images from the original note were not included. Rheumatology Outpatient Clinic Date of Service: 03/31/2024 Patient: Any Ludwig Medical Record: [id number] Primary Care Physician: Tino Blake MD, MD [...] in 2012 by primary care physician in [place] however had not seen telemarketer until 2018. She had multiple joint swelling [...] to low G6PD Methotrexate prior to seeing telemarketer in 2018 did not help Actemra infusion [...] Impression: IMPRESSION: NORMAL APPEARANCE OF BOTH HANDS Rn Oncology: COURTNEY Transcribe Date/Time: Apr 22 2017 1:15P [...] which included preparing to see the patient, [id number] patient care, completing clinical documentation, obtaining and/or reviewing separately obtained history, performing a medically appropriate examination, counseling and educating the patient/family/caregiver, and ordering medications, tests, or procedures. This note was partially generated with the assistance of [employer] voice recognition software. An attempt was made to correct any dictation errors however there may be some incorrect words, spellings, and punctuation. Cragi Wade MD [facility] [[email or web address]] Rheumatology Associate Staff [facility] Informaticistcamera tuning engineer [facility] documented in this encounter [facility] 03-31-2024 Note HNO ID: [id number] Author: CRAIG WADE MD Service: ? Author Type: Physician Type: Progress Notes Filed: 03/31/2024 15:23 Note Text: Rheumatology Outpatient Clinic Date of Service: 03/31/2024 Patient: Any Ludwig Medical Record: [id number] Primary Care Physician: Tino Blake MD, MD [...] in 2012 by primary care physician in [place] however had not seen telemarketer until 2018. She had multiple joint swelling [...] to low G6PD Methotrexate prior to seeing telemarketer in 2017 did not help Actemra infusion [...] ANXIETY buprenorphine HCl/naloxone (more content not included)... [facility] 03-01-2024 History of Present illness Narrative Pt states she has not had a pap for about 2-3 years She has had an abnormal pap- pos for HPV about 4-5 years ago she did have a procedure and resulted in precancerous cells at a 4 at [facility]. Pt had a tubal removal in [...] precancerous cells at a 4 at the [facility]. 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 Exam conducted with a batch tank controller present. Constitutional: General: She is not in [...] BMI 29.0-29.9,adult - Primary Opioid abuse, uncomplicated (CMS/HCC) Is taking suboxone, provider is [facility] Continue treatment with them Rheumatoid arthritis, unspecified (CMS/HCC) Was under the [...] of the risks of continued smoking: stroke, CT, all forms of cancer, lung disease, and [...] of the risks of continued smoking: stroke, CT, all forms of cancer, lung disease, and [...] asking for steroids Will send in to [facility] pred[facility] Associated Problem(s): Opioid abuse, uncomplicated ([facility]/HCC) Is taking suboxone, provider is [place] Continue treatment with them documented in this encounter [facility] 03-01-2024 Instructions Niya Santiago NP - 03/01/2024 10:30 AM EST PAP smear: we call either way 7-10 days Need mammogram, we will send to [facility], if no call in 10 days, call them to schedule: [phone]- ext [phone] RA: will send in 5 days steroids, keep appt with Rheumatology in April 2024 documented in this encounter [facility] 01-25-2024 History of Present illness Narrative Associated Problem(s): Rheumatoid arthritis ([facility]/HCC) Used to see Rheumatology with [facility], they quit, she has not been back Images from the original note were not included. Any Ludwig is a 38 y.o. 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 Options for quitting smoking include: cold turkey, hypnosis, acupuncture, nicotine replacement meds (gum, lozenges, and patches), Buproprion, and Varenicline. At this time pt is encouraged to evaluate their goals for wanting to quit smoking, and reach out to provider when ready to start this process documented in this encounter [facility] 01-25-2024 Instructions Niya Santiago NP - 01/25/2024 2:40 PM EST Get labs completed Schedule PAP smear Will discuss Rheumatology referral when you come back in 3 months documented in this encounter [facility] 10-21-2023 History of Present illness Narrative Associated Problem(s): Subacute maxillary sinusitis Atb, fluid, rest follow up if not better Will give albuterol refill as well for wheeze Non toxic looking Associated Problem(s): Anxiety Continue with effexor Associated Problem(s): Rheumatoid arthritis ([facility]/HCC) Continue with Rheumatology Associated Problem(s): Neutropenia, unspecified (CMS/HCC) Recheck CBC Associated Problem(s): Adult ADHD (attention deficit hyperactivity disorder) ([facility]) No changes in meds or doses OARRS [...] Date Adult ADHD (attention deficit hyperactivity disorder) ([facility]) 01/25/2023 Anxiety Carpal tunnel syndrome 05/03/2023 Hearing loss, left 05/03/2023 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 No [...] Visit Adult ADHD (attention deficit hyperactivity disorder) (CMS/HCC) No changes in meds or doses OARRS reviewed Fu in 3 months Relevant Medications lisdexamfetamine (Vyvanse) 50 MG capsule lisdexamfetamine (Vyvanse) 50 MG capsule (Start on 11/20/2023) lisdexamfetamine (Vyvanse) 50 MG capsule (Start on 12/20/2023) Anxiety Continue with effexor Relevant Medications venlafaxine XR (Effexor XR) 150 MG 24 hr capsule BMI 29.0-29.9,adult Rheumatoid arthritis (CMS/HCC) Continue with Rheumatology Tobacco user - Primary Neutropenia, unspecified (CMS/[facility]) Recheck CBC Relevant Orders CBC and differential Subacute maxillary sinusitis Atb, fluid, rest follow up if not better Will give albuterol refill as well for wheeze Non toxic looking Relevant Medications amoxicillin-clavulanate (Augmentin) 875-125 MG tablet Wheezing Relevant Medications albuterol HFA (Ventolin HFA) 90 mcg/act inhaler documented in this encounter [facility] 08-17-2023 Telephone encounter Note Spoke with patient Rescheduled due to illness- pt requests Fridays only Scheduled a few out also Devi Wagner August 17, 2023 10:57 AM [facility] 08-17-2023 Miscellaneous Notes Spoke with patient Rescheduled [...] completion of antibiotics. documented in this encounter [facility] 08-16-2023 Telephone encounter Note LM on informing patient that infusion has been cancelled due to being on antibiotics. Need to reschedule the 08/17 infusion Devi Guerrerokristen August 16, 2023 4:04 PM [facility] 08-16-2023 Telephone encounter Note Pt scheduled for infusion 08/18/23. Noted pt in ED 08/14/23. Started on antibiotics for ear infection. Please call patient to reschedule infusion 2 weeks after completion of antibiotics. [facility] 07-20-2023 Telephone encounter Note Spoke with pt, confirmed she will be in for her infusion tomorrow. Denies any issues at this time. [facility] 07-20-2023 Miscellaneous Notes Spoke with pt, confirmed she will be in for her infusion tomorrow. Denies any issues at this time. documented in this encounter [facility] 06-28-2023 Note HNO ID: [id number] Author: ?, ?, ? Service: ? Author Type: ? Type: Progress Notes Filed: 06/28/2023 10:10 Note Text: Called and LMOM for patient to call the office back to get reschedule for her appointment with Fariba Hill and then her Infusion right after. Please warm transfer to [facility]. [facility] 06-28-2023 History of Present illness Narrative Called and LMOM for patient to call the office back to get reschedule for her appointment with Fariba Hill and then her Infusion right after. Please warm transfer to [facility]. documented in this encounter [facility] 06-25-2023 Telephone encounter Note Called and LMOM for patient to call the office back so we can get her rescheduled from her appointment and Infusion on 06/23/2023 that she cancel. Please warm transfer to [facility] 06-25-2023 Miscellaneous Notes Called and LMOM for patient to call the office back so we can get her rescheduled from her appointment and Infusion on 06/23/2023 that she cancel. Please warm transfer to [facility] documented in this encounter [facility] 06-22-2023 Telephone encounter Note Called patient to get her rescheduled and she is going to go ahead and keep her appointment. Patient will be here for her appointment with Fariba and then get her infusion. [facility] 06-22-2023 Miscellaneous Notes Called patient to get [...] confirm scheduled infusion. documented in this encounter [facility] 06-22-2023 Telephone encounter Note Spoke with patient on phone. Patient states she needs to reschedule tomorrows infusion do to starting a new job and working tomorrow. Will have scheduling reach out and reschedule infusion. [facility] 06-22-2023 Telephone encounter Note LMOM for patient to call back and confirm scheduled infusion. [facility] 05-28-2023 Miscellaneous Notes Call placed to patient to inquire how she is feeling since visit to [facility] for wheezing. She states she is feeling better and has had no further issues. James Hill CNP notified. documented in this encounter [facility] 05-26-2023 Miscellaneous Notes Addended by: SILVIA COOPER on: 05/26/2023 03:06 PM Modules accepted: Orders documented in this encounter [facility] 05-26-2023 Instructions Silvia Cooper APRN.ANTHONY - 05/26/2023 2:00 PM EDT Albuterol as needed- inhaler sent If needed, only if needed, Prednisone 40 mg once daily x 5 days with food Consider Zyrtec daily until Mothers day or longer Follow up as needed documented in this encounter [facility] 05-26-2023 Note HNO ID: [id number] Author: SILVIA COOPER APRN.CNP Service: ? Author Type: Nurse Practitioner Type: Progress Notes Filed: 05/26/2023 14:15 Note Text: This note was created using Glass [employer] Marker. Subjective Any Ludwig is a 38 year old female. This 38 year old female present sot [facility] with expiratory wheeze, was in [...] - PREDNISONE 20 MG TABLET Silvia Cooper APRN.[facility] 05-26-2023 History of Present illness Narrative This note was created using Dial a Dealerter. Subjective Any Ludwig is a 38 year old female. This 38 year old female present sot [facility] with expiratory wheeze, was in [...] - PREDNISONE 20 MG TABLET Silvia Cooper APRN.ASSEMBLY LINE LEADER documented in this encounter [facility] 05-26-2023 History of Present illness Narrative FOLLOW UP VISIT-in person PCP: Tino Blake MD [address] [place] [address] Ms. Ludwig is a 38 year old [...] is planning to follow up with local telemarketer closer to home. Until she has her [...] her lifetime. We are assisting with social services analyst consult, also to help with adherence to [...] which included preparing to see the patient, kwvr-ij-rebv patient care, completing clinical documentation, obtaining and/or [...] Tino Blake MD documented in this encounter [facility] 05-26-2023 Note HNO ID: [id number] Author: FARIBA HILL APRN.CNP Service: ? Author Type: Nurse Practitioner Type: Progress Notes Filed: 06/07/2023 08:14 Note Text: FOLLOW UP VISIT-in person PCP: Tino Blake MD [address] [place] [address] Ms. Ludwig is a 38 year old [...] Vitamin D Deficiency - 04/23/2017 PHYSICAL EXAMINATION: [facility] 01/13/2023 (Approximate) GENERAL: alert and appropriate, [...] is planning to follow up with local telemarketer closer to home. Until she has her [...] her lifetime. We are assisting with social services analyst consult, also to help with adherence to health care and patient's social support, especially kristie (more content not included)... [facility] 05-26-2023 Note HNO ID: [id number] Author: KORIN PUGA RN Service: ? Author [...] No New rash or open sores? No [facility] 05-26-2023 History of Present illness Narrative Since [...] open sores? No documented in this encounter [facility] 05-25-2023 Miscellaneous Notes Spoke with patient; confirmed infusion tomorrow. Denies any issues. LMOM for patient to call back and confirm patient will be in tomorrow for scheduled infusion and has not been ill recently or on ATB. documented in this encounter [facility] 05-18-2023 Miscellaneous Notes Called patient on May [...] Slot held: N/A documented in this encounter [facility] 05-14-2023 Miscellaneous Notes Patient has been identified [...] to: self Call patient at: at home [phone] (home) [phone] (cell) Payor: HARITHA MEDICAID / Plan: HARITHA [facility] MEDICAID [facility] / Product Type: Medicaid / DIANA Richey documented in this encounter [facility] 04-28-2023 Miscellaneous Notes Corrected please schedule Could you please check the Ultrasound of the Left Elbow Thank you Yessy documented in this encounter [facility] 04-28-2023 History of Present illness [...] L elbow ultrasound. documented in this encounter [facility] 04-28-2023 History of Present illness Narrative FOLLOW UP VISIT-in person PCP: Tino Blake MD [address] [place] [address] Ms. Ludwig is a 38 year old [...] Vitamin D Deficiency - 04/23/2017 PHYSICAL EXAMINATION: [facility] 01/13/2023 (Approximate) GENERAL: alert and appropriate, [...] is planning to follow up with local telemarketer closer to home. Until she has her [...] her lifetime. We are assisting with social services analyst consult, also to help with adherence to [...] which included preparing to see the patient, fadq-zx-huec patient care, completing clinical documentation, obtaining and/or reviewing separately obtained history, performing a medically appropriate examination, counseling and educating the patient/family/caregiver, and ordering medications, tests, or procedures. Fariba Hill APRN.ASSEMBLY LINE LEADER Recommendations to share with referring physician/Primary care [...] Tino Blake MD documented in this encounter [facility] 04-21-2023 Miscellaneous Notes Please change patient schedule going forward with a ov each infusion with me If patients normal time to come is is 1130 Please use my 1100 slot 60min for every infusion with infusion directly following LMOM for patient to call the office back Please warm transfer to [facility] appointment has been scheduled as requested. Please let our infusion assisted living director(s) know how you would like to proceed [...] you kindly, fa documented in this encounter [facility] 03-31-2023 History of Present illness [...] open sores? No documented in this encounter [facility] 03-30-2023 Miscellaneous Notes Spoke with patient, she will be in for infusion. Denies infections Called and left message with return number to verify patient will be here tomorrow and is infection free and not on antibiotics. documented in this encounter [facility] 02-18-2023 Miscellaneous Notes Patient has been rescheduled as requested Pt did not show for her infusion today. Please call her to reschedule. LMOM for patient to call back regarding infusion for tomorrow LMOM for patient to confirm patient is coming for infusion tomorrow. VM left for patient to call office to confirm infusion. documented in this encounter [facility] 02-01-2023 Miscellaneous Notes LMOM for patient to call us back to reschedule her infusion . Please warm transfer to [facility] ----- Message from Irais Ochoa sent at 02/01/2023 3:13 PM EST ----- Regarding: infusion reschedule Contact: Patient name: Any Ludwig Who is calling: Patient Call back number: [phone] [facility] ordering provider: Dr Mccann Type of infusion: Actemra Patient just needs to reschedule 02/02/23 appt documented in this encounter [facility] 02-01-2023 Miscellaneous Notes Spoke with patient, she will be in for infusion, denies any signs or symptoms of illness LMOM for patient to call back regarding infusion for tomorrow documented in this encounter [facility] 01-20-2023 Miscellaneous Notes Please increase actemra 8mg/kg every 4 weeks documented in this encounter [facility] 01-20-2023 Instructions Fariba Hill APRN.ANTHONY - 01/20/2023 9:26 AM EST -PLEASE NOTE THAT WE REVIEW ALL YOUR TEST RESULTS AT YOUR NEXT FOLLOW UP VISIT WITH YOU. IF ANY ABNORMAL LAB REQUIRES SOONER ATTENTION, WE WILL CONTACT YOU. -If you have signed up on Tagkastt, we will release your test results through SpotterRF. Prednisone 20mg ( 4 tablets ) for [...] that features the Whole Plant Based diet, [place] over knives (see video online and visit website). Another movie that was recently released is: Eating You Alive (you can find it at Training Amigo) Dr. Lisa Armando is a [facility] physician who is an expert in Whole Plant based diet. His website is Hole 19. His research work highlighted the benefits of [...] on a whole plant based diet, at TapTrack and the free keisha is 21-Day [place] LegUP with meals and recipes to follow. He has multiple free videos and YouTube, for example: https://youtu.be/lwrVuivI8e7 , [email or web address] Online Information Technologyu.be/BeUZXigqs3n Dr. Gordy Farrell has proven starch diet whole plant based and benefit to his Rheumatoid Arthritis patients, his website: val.Shadow Puppet Dr. Maira Bertrand is a renowned sleep scientist, who has studied and researched the benefits of the Whole plant based diet. He has also researched the adverse effects of animal proteins on health. He presents many of his research findings in his book The [place] study. Dr. Maurilio Xie has completed many research trials proving the reversal of diseases with healthy lifestyle and the Whole Plant based diet. Dr. Maurilio Xie website is: [email or web address] Puppet UnDo It a new book by Dr. Maurilio Thomas has dedicated a website and additional time to reviewing all food related articles and research and presents them in his power point presentation and on his website at: nutritionfacts.org Dr. Thomas has multiple free videos and YouTube, for example https://youtu.be/aSgNkhgVtks and https://youBountyHunter.be/lXXXygDRyBU. Also, you could find additional information by reading or watching online and YouTube such as: Drier Helper AJ, Cooking With Plants, The Vegan Corner (recipes from an Scottish Drier Helper), and visiting the provided websites for additional information on the whole plant based benefit and cooking recipes. The Whole Foods Plant Based Cooking Show Athletes such as Kelvin Kan, Antonio Guillermo, Shaheen Mooney YouTube Guilt Free Shaheen Mooney YouTube Guilt Free TV and Hua with Cartela AB. Goodbye Lupus by Kandi Leonard M.D If [...] - Gentle Yoga Anyone Can Do Anywhere www.[place].Shadow Puppet/y oga landon chi, stretching, cardio, gradual strengthening, [...] or a higher dose. Raw: Garlic, Cilantro, [place] nuts, Pumpkin seeds, [place] seeds and Flax seed powder have been reported to help with certain metal detoxification such as mercury. [place]-3 plant based sources: rachana seeds, flax seed powder, flax milk, walnuts. Turmeric can be found natural, used as the spice powder or the root with your food. This is also available as a capsule. Sweet cherries (raw cleaned or frozen) and Turmeric have anti-inflammatory benefit Start reviewing the Whole Plant Based Diet, by watching [place] over Southern Air movie and then review website. There are many other resources and educational information on the Whole plant based diet on the Internet and documentaries. There are other resources for wellness that you can also benefit from, such as the [facility] Wellness website, [facility].org and includes the Mediterranean heart healthy diet and yoga and meditation. Please avoid all dairy products. You could use non-dairy milk such as Flax milk, Cashew milk, Martin milk, Rice milk, Oat milk or Hemp [...] Foundation) http://www.osteo.org/osteolinks.a sp National Institutes of Health: 8-942-164-BONE The Calcium Information Center: Non-Dairy, Plant based Milk, contain 1 glass = 450 mg of calcium Exampled include Flax Milk, Martin Milk, Cashew Milk Examples of Food Sources of Calcium from [facility] Food Milligrams (mg) per serving Percent DV* Soymilk, calcium-fortified, 8 ounces 299 30 [place] juice, calcium-fortified, 6 ounces 261 26 Tofu, firm, made with calcium sulfate, cup* 253 25 Tofu, soft, made with calcium sulfate, cup* 138 14 Ukohn-db-zlr cereal, calcium-fortified, 1 cup 100-1,000 10-100 Turnip greens, fresh, boiled, cup 99 10 Kale, raw, chopped, 1 cup 100 10 Kale, fresh, cooked, 1 cup 94 9 Burmese cabbage, bok gilbert, raw, shredded, 1 cup 74 7 Bread, white, 1 slice 73 7 Tortilla, corn, ihipp-qf-dzmr/mcgee, one 6 diameter 46 5 Tortilla, flour, crpxa-md-kkmy/mcgee, one 6 diameter 32 3 Bread, whole-wheat, 1 slice 30 3 Broccoli, raw, cup 21 2 * DV = Daily Value. DVs were developed by the U.S. Food and Drug Administration to help consumers compare the nutrient contents among products within the context of a total daily diet. The U.S. Department of Agriculture s (Milmenus.com s) Nutrient Database Web site lists the [...] daily with a meal; Certain patients required 8694-5475 iu daily and in patients deficient in [...] bones. Studies show approximately 50% of [place] men and women are vitamin D deficient [...] national osteoporosis foundation) http://www.[facility].org/ar thritis/osteo/info.htm http://ods.od.nih.gov/factsheets/ vitamind.asp [place] Institutes of Health: 9-310-366-BONE [facility] Calcium Information [place]: Thank you for choosing [facility] for your healthcare. Sincerely, Fariba Hill APRN.ASSEMBLY LINE LEADER documented in this encounter [facility] 01-20-2023 History of Present illness Narrative FOLLOW UP VISIT-in person PCP: Tino Blake MD [address] [place] [address] Ms. 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 Until she has her [...] her lifetime. We are assisting with social services analyst consult, also to help with adherence to [...] which included preparing to see the patient, cuug-mz-fgdp patient care, completing clinical documentation, obtaining and/or reviewing separately obtained history, performing a medically appropriate examination, counseling and educating the patient/family/caregiver, and ordering medications, tests, or procedures. Fariba Hill APRN.ASSEMBLY LINE LEADER Recommendations to share with referring physician/Primary care [...] the care of your patient. Fariba Hill APRN.ASSEMBLY LINE LEADER CC: Tino Blake MD documented in this encounter [facility] 12-31-2022 History of Present illness [...] open sores? No documented in this encounter [facility] 12-30-2022 Miscellaneous Notes Patient calling in to office. Verified by name and . She states that she is infection free and not currently taking any antibiotics. She denies any hospitalizations or changes in health since her last infusion. She will be in tomorrow as scheduled for infusion. VM left for pt to call office to confirm infusion tomorrow. documented in this encounter [facility] 12-18-2022 Miscellaneous Notes Left message for patient to call office regarding below. sent mychart Left message for patient to call office regarding below. Please call patient Normal liver enzymes Will recheck in 1 month May restart arava 10mg daily Received outside lab results from [facility] AST and ALT results completed on 12/14 ALT: 33 AST: 19 placed on Fariba's desk for review documented in this encounter [facility] 12-14-2022 Miscellaneous Notes Lab orders faxed with confirmation to below number. [facility] calling about orders. Patient did not give correct fax number. Please re-fax to [phone]. Patient is still waiting at lab. Please advise. DIANA Bethea [place] POST (Patient Operations Support Team) Please note: Please do not re-route phone encounters back to this agent, please send to appropriate office pool. Agent works in operations center and cannot complete patient specific tasks. Fariba from [facility] called to follow up on request -- lab orders faxed to [phone] as requested with confirmation Any Ludwig is calling Fariba Hill APRN.CNP today to request Lab Orders be faxed to [facility]. She believes their fax number is [phone]. She states we can call them to verify at [phone]. Please notify pt once orders have been faxed. Patient has been identified by name and birthdate. Duration of symptoms: N/A Person calling: self Call patient at: on cell [phone] (home) [phone] (cell) Was an appointment scheduled: No Closing statement: Results or non-symptom based questions: Thank you for calling [facility], your call will be returned within the next business day. Komal Nunn documented in this encounter [facility] 12-11-2022 Miscellaneous Notes Spoke with patient High [...] Abs Lymph 1.00 - 4.00 k/uL 3.92 [place]% % 8.2 Abs [place] <0.87 k/uL 0.65 Eosin% % 2.3 Abs [...] 20 mm/hr 20 documented in this encounter [facility] 11-25-2022 Miscellaneous Notes LMOM for patient to call the office if she is able to move from Fri to Thur. Please warm transfer to [facility] documented in this encounter [facility] 11-13-2022 Miscellaneous Notes Left VM that steroid has been sent to pharmacy. Left message for patient to call office regarding below. Please call patient Steriod taper sent to the pharmacy please update patient Patient calling to ask questions re: infusion that was supposed to be for 11/12 but was cancelled due to no approval yet from insurance Please call patient back at [phone] Devi Eduarda November 11, 2022 12:49 PM documented in this encounter [facility] 10-22-2022 History of Present illness [...] prior to leaving. documented in this encounter [facility] 10-22-2022 Fariba Fragoso APRN.ANTHONY - 10/22/2022 9:35 AM EDT -PLEASE NOTE THAT WE REVIEW ALL YOUR TEST RESULTS AT YOUR NEXT FOLLOW UP VISIT WITH YOU. IF ANY ABNORMAL LAB REQUIRES SOONER ATTENTION, WE WILL CONTACT YOU. -If you have signed up on SpotterRF, we will release your test results through SpotterRF. Plan to start actemra in 2 weeks [...] that features the Whole Plant Based diet, [place] over knives (see video online and visit website). Another movie that was recently released is: Eating You Alive (you can find it at Training Amigo) Dr. Lisa Armando is a [facility] physician who is an expert in Whole Plant based diet. His website is Hole 19. His research work highlighted the benefits of [...] on a whole plant based diet, at [employer].Reniac and the free keisha is 21-Day Vegan Kickstart with meals and recipes to follow. He has multiple free videos and YouTube, for example: https://exactEarth [email or web address]/[email or web address] , https://youBountyHunter.[email or web address] Dr. Gordy Farrell has proven starch diet whole plant based and benefit to his Rheumatoid Arthritis patients, his website: ruydoMaverix Biomicsdima.Shadow Puppet Dr. Maira Bertrand is a renowned sleep scientist, who has studied and researched the benefits of the Whole plant based diet. He has also researched the adverse effects of animal proteins on health. He presents many of his research findings in his book The [place] study. Dr. Maurilio Xie has completed many research trials proving the reversal of diseases with healthy lifestyle and the Whole Plant based diet. Dr. Maurilio Xie website is: [employer] UnDo It a new book by Dr. Maurilio Thomas has dedicated a website and additional time to reviewing all food related articles and research and presents them in his power point presentation and on his website at: nutritionfacts.org Dr. Thomas has multiple free videos and YouTube, for example https://exactEarth Ltd.Studio/aSgNkhgVtks and https://exactEarth Ltd.Studio/lXXXygDRyBU. Also, you could find additional information by reading or watching online and YouTube such as: Drier Helper AJ, Cooking With Plants, The Vegan Corner (recipes from an Scottish Drier Helper), and visiting the provided websites for additional information on the whole plant based benefit and cooking recipes. The Whole Foods Plant Based Cooking Show Athletes such as Kelvin Kan, Antonio Guillermo, Shaheen Mooney YouTube Guilt Free Shaheen Mooney YouTube Guilt Free TV and Hua with Cartela AB. Goodbye Lupus by Kandi Leonard M.D If [...] - Gentle Yoga Anyone Can Do Anywhere www.[place].Shadow Puppet/y oga landon chi, stretching, cardio, gradual strengthening, [...] or a higher dose. Raw: Garlic, Cilantro, Saint Joseph nuts, Pumpkin seeds, [place] seeds and Flax seed powder have been reported to help with certain metal detoxification such as mercury. [place]-3 plant based sources: rachana seeds, flax seed powder, flax milk, walnuts. Turmeric can be found natural, used as the spice powder or the root with your food. This is also available as a capsule. Sweet cherries (raw cleaned or frozen) and Turmeric have anti-inflammatory benefit Start reviewing the Whole Plant Based Diet, by watching [place] over [place] movie and then review website. There are many other resources and educational information on the Whole plant based diet on the Internet and documentaries. There are other resources for wellness that you can also benefit from, such as the [facility] Wellness website, [facility].org and includes the Mediterranean heart healthy diet and yoga and meditation. Please avoid all dairy products. You could use non-dairy milk such as Flax milk, Cashew milk, Martin milk, Rice milk, Oat milk or Hemp [...] Foundation) http://www.osteo.org/osteolinks.a sp National Institutes of Health: 1-269-627-BONE [facility] Calcium Information Center: Non-Dairy, Plant based Milk, contain 1 glass = 450 mg of calcium Exampled include Flax Milk, Martin Milk, Cashew Milk Examples of Food Sources of Calcium from [facility] Food Milligrams (mg) per serving Percent DV* Soymilk, calcium-fortified, 8 ounces 299 30 [place] juice, calcium-fortified, 6 ounces 261 26 Tofu, firm, made with calcium sulfate, cup* 253 25 Tofu, soft, made with calcium sulfate, cup* 138 14 Acmxd-ce-sla cereal, calcium-fortified, 1 cup 100-1,000 10-100 Turnip greens, fresh, boiled, cup 99 10 Kale, raw, chopped, 1 cup 100 10 Kale, fresh, cooked, 1 cup 94 9 Burmese cabbage, bok gilbert, raw, shredded, 1 cup 74 7 Bread, white, 1 slice 73 7 Tortilla, corn, edarg-dh-jyfz/mcgee, one 6 diameter 46 5 Tortilla, flour, wykco-wh-fsmj/mcgee, one 6 diameter 32 3 Bread, whole-wheat, [...] daily with a meal; Certain patients required 5378-4528 iu daily and in patients deficient in [...] bones. Studies show approximately 50% of [place] men and women are vitamin D deficient [...] thritis/osteo/info.htm http://ods.od.nih.gov/factsheets/ vitamind.asp National Institutes of Health: 2-827-869-BONE [facility] Calcium Information Center: Thank you for choosing [facility] for your healthcare. Sincerely, Fariba Hill APRN.ASSEMBLY LINE LEADER documented in this encounter [facility] 10-22-2022 History of Present illness Narrative FOLLOW UP VISIT-in person PCP: Tino Blake MD [address] [address] Ms. Ludwig is a 37 year old [...] is planning to follow up with local telemarketer closer to home. Until she has her [...] her lifetime. We are assisting with social services analyst consult, also to help with adherence to [...] which included preparing to see the patient, ospa-bj-ftxr patient care, completing clinical documentation, obtaining and/or [...] Tino Blake MD documented in this encounter [facility] 10-21-2022 Miscellaneous Notes Spoke with pt; confirmed infusion appt 10/22/22 and appt with Fariba. Denies s/sx of infection or antibiotics or other issues at this time. documented in this encounter [facility] 09-17-2022 History of Present illness [...] open sores? No documented in this encounter [facility] 09-16-2022 Miscellaneous Notes Spoke with patient, she will be in for infusion Patient returning call, but PSS told that the nurses are all busy. Patient advised that a message would be placed for the nurses to call the patient back. VM left for pt to call office for below message. documented in this encounter [facility] 09-09-2022 Miscellaneous Notes Tried calling patient 3 times and not able to leave a voice mail. If patient calls then we can offer her a sooner appointment. May offer patient sooner infusion appt since approved (09/02/2022) Time Cycle, Day Action User 10:23 AM Preauthorization Status Changed New Value: Authorized Previous Value: Waiting for Response Rodrigue (Pharmacy Cartridge Assembling Machine AdjusterLaverne Shea Changing plan to avsola 7.5mg /kg every 8 weeks Please expedite approval Patient is on for infusion tomorrow In process of updating plan Images from the original note were not included. === PHARMACY TEAM ==== AUTHORIZATION DENIED Denial Reason: Denial upheld on appeal Payor: [place] [employer] Date of Service: 09.01.22 Received Denial Via: Portal G[employer]ed Donkey Ride Operator Name / Call Ref #: na / na Drug name(s) & HCPCS code(s): Avsola Dx Code: [id number] rheumatoid arthritis Comment: Next step is a [...] notes with original submission. Appeal ID is [id number] ETO is 15 days from today Onbased appeal acknowledgement letter. Letter created please submit thanks === PHARMACY TEAM ==== Case Note/ Misc Comment Has appeal been submitted? If not, I can submit an appeal letter if provided via Cobrain portal for Reference# [id number]. I spoke with peer to peer Will need to appeal [phone] Please ask for expedited appeal Avsola 5mg/kg [...] sent (PRN): No documented in this encounter [facility] 08-31-2022 Miscellaneous Notes Patient has been rescheduled [...] at this time. documented in this encounter [facility] 06-22-2022 Miscellaneous Notes Call placed to patient to confirm she will be here for tomorrow's infusion and has had no recent infection with no answer. LMOM to call back or send my chart. documented in this encounter [facility] 04-28-2022 Instructions Fariba Hill APRN.ASSEMBLY LINE LEADER - 04/28/2022 1:04 PM EST -PLEASE NOTE THAT WE REVIEW ALL YOUR TEST RESULTS AT YOUR NEXT FOLLOW UP VISIT WITH YOU. IF ANY ABNORMAL LAB REQUIRES SOONER ATTENTION, WE WILL CONTACT YOU. -If you have signed up on SpotterRF, we will release your test results through SpotterRF. Increase inflxiamab every 5 weeks 5mg/kg arava [...] that features the Whole Plant Based diet, Leaf [place] over knives (see video online and visit website). Another movie that was recently released is: Eating You Alive (you can find it at Training Amigo) Dr. Lisa Armando is a [facility] physician who is an expert in Whole Plant based diet. His website is Hole 19. His research work highlighted the benefits of Whole plant based diet in reversing and preventing heart disease. Consider reading Curly Brennanfranca: The Engine 2 Diet, cookbook Mrs. Armando (his ) has a cookbook with many recipes on whole plant based food: The Prevent and Reverse Heart Disease cookbook. Dr. Stephen Martinez, has a website and free keisha to help get started on a whole plant based diet, at TapTrack and the free keisha is 21-Day Intoan Technology with meals and recipes to follow. He has multiple free videos and YouTube, for example: https://youtu.be/[email or web address] , https://youtu.be/[email or web address] Dr. Gordy Farrell has proven starch diet whole plant based and benefit to his Rheumatoid Arthritis patients, his website: Flow Studio Dr. Maira Bertrand is a renowned sleep scientist, who has studied and researched the benefits of the Whole plant based diet. He has also researched the adverse effects of animal proteins on health. He presents many of his research findings in his book The [place] study. Dr. Maurilio Xie has completed many research trials proving the reversal of diseases with healthy lifestyle and the Whole Plant based diet. Dr. Maurilio Xie website is: [employer] UnDo It a new book by Dr. [...] or watching online and YouTube such as: Drier Helper AJ, Cooking With Plants, The Vegan Corner (recipes from an Scottish Drier Helper), and visiting the provided websites for additional information on the whole plant based benefit and cooking recipes. The Whole Foods Plant Based Cooking Show Athletes such as Kelvin Kan, Antonio Guillermo, Shaheen Mooney YouTube Guilt Free Shaheen Mooney YouTube Guilt Free TV and Hua with Cartela AB. Goodbye Lupus by Kandi Leonard M.D If [...] - Gentle Yoga Anyone Can Do Anywhere www.[employer]/y oga landon chi, stretching, cardio, gradual strengthening, [...] or a higher dose. Raw: Garlic, Cilantro, Saint Joseph nuts, Pumpkin seeds, [place] seeds and Flax seed powder have been reported to help with certain metal detoxification such as mercury. [place]-3 plant based sources: rachana seeds, flax seed powder, flax milk, walnuts. Turmeric can be found natural, used as the spice powder or the root with your food. This is also available as a capsule. Sweet cherries (raw cleaned or frozen) and Turmeric have anti-inflammatory benefit Start reviewing the Whole Plant Based Diet, by watching [place] over [place] movie and then review website. There are many other resources and educational information on the Whole plant based diet on the Internet and documentaries. There are other resources for wellness that you can also benefit from, such as the [facility] Wellness website, [facility] springs[facility]inic.org and includes the Mediterranean heart healthy diet and yoga and meditation. Please avoid all dairy products. You could use non-dairy milk such as Flax milk, Cashew milk, Martin milk, Rice milk, Oat milk or Hemp [...] Foundation) http://www.osteo.org/osteolinks.a sp National Institutes of Health: 8-222-991-BONE The Calcium Information [place]: Non-Dairy, Plant based Milk, contain 1 glass = 450 mg of calcium Exampled include Flax Milk, Martin Milk, Cashew Milk Examples of Food Sources of Calcium from [place] Food Milligrams (mg) per serving Percent DV* Soymilk, calcium-fortified, 8 ounces 299 30 [place] juice, calcium-fortified, 6 ounces 261 26 Tofu, firm, made with calcium sulfate, cup* 253 25 Tofu, soft, made with calcium sulfate, cup* 138 14 Bddea-cl-tbc cereal, calcium-fortified, 1 cup 100-1,000 10-100 Turnip greens, fresh, boiled, cup 99 10 Kale, raw, chopped, 1 cup 100 10 Kale, fresh, cooked, 1 cup 94 9 Burmese cabbage, bok gilbert, raw, shredded, 1 cup 74 7 Bread, white, 1 slice 73 7 Tortilla, corn, tauvd-na-pbmy/mcgee, one 6 diameter 46 5 Tortilla, flour, mdnmm-fi-dcbb/mcgee, one 6 diameter 32 3 Bread, whole-wheat, [...] daily with a meal; Certain patients required 6075-7794 iu daily and in patients deficient in [...] bones. Studies show approximately 50% of [place] men and women are vitamin D deficient [...] available from: www.nof.org (the national osteoporosis foundation) http://www.clevelandinic.org/ar andreiitis/osteo/info.htm http://ods.od.nih.gov/factsheets/ vitamind.asp [place] Institutes of Health: 7-363-327-BONE [facility] Calcium Information [place]: Thank you for choosing [facility] for your healthcare. Sincerely, Fariba Hill APRN.ASSEMBLY LINE LEADER documented in this encounter [facility] 04-28-2022 History of Present illness Narrative FOLLOW UP VISIT-telephone PCP: Tino Blake MD [address] [place] [address] Ms. Ludwig is a 37 year old [...] is planning to follow up with local telemarketer closer to home. Until she has her [...] her lifetime. We are assisting with social services analyst consult, also to help with adherence to [...] only. Patient agrees the this plan PLAN/RECOMMENDATIONS: [facility] on 04/28/22 predniSONE (DELTASONE) 5 mg [...] Tino Blake MD documented in this encounter [facility] 04-16-2022 Miscellaneous Notes sent via Quantanceent to local pharmacy Pharmacy Information Pharmacy Address Telephone [id number] [address] [place] [address] Unable to reach pt, no ans, vm full will send via DataSphere -attempted to call pt and VM full [...] bld. tests in 8 wks ([facility]) -Once patient has completed the 8 wk treatment, it is recommended to continue on maintenance therapy to keep the Vit D from dropping again. I recommend patient takes over the counter, Vitamin D3: 2000 international units once daily with a meal. Thank you kindly, Fariba Hill APRN.ASSEMBLY LINE LEADER documented in this encounter [facility] 04-14-2022 History of Present illness Narrative Since [...] open sores? No documented in this encounter [facility] 04-14-2022 Instructions Fariba Hill APRN.ASSEMBLY LINE LEADER - 04/14/2022 10:44 AM EST -PLEASE NOTE THAT WE REVIEW ALL YOUR TEST RESULTS AT YOUR NEXT FOLLOW UP VISIT WITH YOU. IF ANY ABNORMAL LAB REQUIRES SOONER ATTENTION, WE WILL CONTACT YOU. -If you have signed up on MicroPhagehart, we will release your test results through SpotterRF. Increase inflxiamab every 5 weeks 5mg/kg arava [...] that features the Whole Plant Based diet, Leaf [place] over knives (see video online and visit website). Another movie that was recently released is: Eating You Alive (you can find it at Training Amigo) Dr. Lisa Armando is a [facility] physician who is an expert in Whole Plant based diet. His website is Hole 19. His research work highlighted the benefits of [...] on a whole plant based diet, at TapTrack and the free keisha is 21-Day Vegan Kickstart with meals and recipes to follow. He has multiple free videos and YouTube, for example: https://[email or web address]/[email or web address] , https://[email or web address] Online Information Technologyu.be/[email or web address] Dr. Gordy Farrell has proven starch diet whole plant based and benefit to his Rheumatoid Arthritis patients, his website: StaphOff Biotechdima.Shadow Puppet Dr. Maira Bertrand is a renowned sleep scientist, who has studied and researched the benefits of the Whole plant based diet. He has also researched the adverse effects of animal proteins on health. He presents many of his research findings in his book The [place] study. Dr. Maurilio Xie has completed many research trials proving the reversal of diseases with healthy lifestyle and the Whole Plant based diet. Dr. Maurilio Xie website is: [employer].Shadow Puppet UnDo It a new book by Dr. Maurilio Thomas has dedicated a website and additional time to reviewing all food related articles and research and presents them in his power point presentation and on his website at: nutritionfacts.org Dr. Thomas has multiple free videos and YouTube, for example https://youBountyHunter.be/aSgNkhgVtks and [email or web address]. Also, you could find additional information by reading or watching online and YouTube such as: Drier Helper AJ, Cooking With Plants, The Vegan Corner (recipes from an Scottish Drier Helper), and visiting the provided websites for additional information on the whole plant based benefit and cooking recipes. The Whole Foods Plant Based Cooking Show Athletes such as Kelvin Kan, Antonio Guillermo, Shaheen Mooney YouTube Guilt Free Shaheen Mooney YouTube Guilt Free TV and Hua with Cartela AB. Goodbye Lupus by Kandi Leonard M.D If [...] - Gentle Yoga Anyone Can Do Anywhere www.[place].Shadow Puppet/y oga landon chi, stretching, cardio, gradual strengthening, [...] or a higher dose. Raw: Garlic, Cilantro, Saint Joseph nuts, Pumpkin seeds, [place] seeds and Flax seed powder have been reported to help with certain metal detoxification such as mercury. [place]-3 plant based sources: rachana seeds, flax seed powder, flax milk, walnuts. Turmeric can be found natural, used as the spice powder or the root with your food. This is also available as a capsule. Sweet cherries (raw cleaned or frozen) and Turmeric have anti-inflammatory benefit Start reviewing the Whole Plant Based Diet, by watching [place] over [place] movie and then review website. There are many other resources and educational information on the Whole plant based diet on the Internet and documentaries. There are other resources for wellness that you can also benefit from, such as the [facility] Wellness website, [facility]org and includes the Mediterranean heart healthy diet and yoga and meditation. Please avoid all dairy products. You could use non-dairy milk such as Flax milk, Cashew milk, Martin milk, Rice milk, Oat milk or Hemp [...] resources: www.nof.org (National Osteoporosis Foundation) http://www.osteo.org/osteolinks.a sp [place] Institutes of [facility]: 8-457-592-BONE The Calcium Information Center: Non-Dairy, Plant based Milk, contain 1 glass = 450 mg of calcium Exampled include Flax Milk, Martin Milk, Cashew Milk Examples of Food Sources of Calcium from [facility] Food Milligrams (mg) per serving Percent DV* Soymilk, calcium-fortified, 8 ounces 299 30 [place] juice, calcium-fortified, 6 ounces 261 26 Tofu, firm, made with calcium sulfate, cup* 253 25 Tofu, soft, made with calcium sulfate, cup* 138 14 Lgbnr-ue-eho cereal, calcium-fortified, 1 cup 100-1,000 10-100 Turnip greens, fresh, boiled, cup 99 10 Kale, raw, chopped, 1 cup 100 10 Kale, fresh, cooked, 1 cup 94 9 Burmese cabbage, bok gilbert, raw, shredded, 1 cup 74 7 Bread, white, 1 slice 73 7 Tortilla, corn, ttgei-gx-boyb/mcgee, one 6 diameter 46 5 Tortilla, flour, pyeox-ln-bltd/mcgee, one 6 diameter 32 3 Bread, whole-wheat, [...] daily with a meal; Certain patients required 2097-1982 iu daily and in patients deficient in [...] bones. Studies show approximately 50% of [place] men and women are vitamin D deficient [...] thritis/osteo/info.htm http://ods.od.nih.gov/factsheets/ vitamind.asp National Institutes of Health: 8-838-489-BONE [facility] Calcium Information [place]: Thank you for choosing [facility] for your healthcare. Sincerely, Fariba Hill APRN.ASSEMBLY LINE LEADER documented in this encounter [facility] 04-14-2022 History of Present illness Narrative FOLLOW UP VISIT-in person PCP: Tino Blake MD [address] [place] [address] Ms. Ludwig is a 37 year old patient here today for follow up of RA Interim History: Swelling- right wrist 1 week Had overdone it cleaning Foot pain Fell asleep in bathtub 4 hours Never had xrays Left MTP swelling - improving some Pain- 8 Does not take anything Am stiffness Here [...] is planning to follow up with local telemarketer closer to home. Until she has her [...] her lifetime. We are assisting with social services analyst consult, also to help with adherence to [...] which included preparing to see the patient, qbhd-cu-xjri patient care, completing clinical documentation, obtaining and/or [...] Tino Blake MD documented in this encounter [facility] 03-09-2022 Miscellaneous Notes Most recent Rheumatology visit: 01/05/2022 (with Fariba Hill) Recent Office Visits - This Specialty 01/05/2022 Seropositive rheumatoid arthritis (HCC) Rheumatology Fariba Hill APRN.ANTHONY 10/29/2021 Seropositive rheumatoid arthritis (HCC) Rheumatology Fariba Hill APRN.CNP 07/23/2021 Seropositive rheumatoid arthritis (HCC) Rheumatology Fariba iHll APRN.CNP Upcoming Rheumatology Appointments - Next 365 Days Visit Type Date Time Department [facility]14[facility] 10[facility]30 [facility] CBC: CBC Latest Ref Rng [...] R Padilla MA documented in this encounter [facility] 03-02-2022 Miscellaneous Notes mailed as requested Ordered [...] Abs Lymph 1.00 - 4.00 k/uL 3.03 [place]% % 8.0 Abs [place] <0.87 k/uL 0.49 Eosin% % 4.6 Abs [...] mm/hr 29 (H) documented in this encounter [facility] 02-24-2022 History of Present illness Narrative Pt at end of infusion c/o swelling and bump on her left foot. She was asking about surgical intervention, or perhaps block, or draining. Fariba Hill ASSEMBLY LINE LEADER was consulted. Orders were placed for pt [...] open sores? No documented in this encounter [facility] 02-20-2022 Miscellaneous Notes I spoke to Any and she will be coming in for her infusion on 02-24-22. She denies having been on any recent antibiotics. documented in this encounter [facility] 02-03-2022 History of Present illness Narrative POPULATION HEALTH NAVIGATION OUTREACH Action/FYI Left vm Pt identified by name and : NO Outreach Outcome/Action Unable to reach patient: Left message MicroPhagehart message sent Did you use a PCP flex slot to schedule this appointment? No Reason for Outreach Care Gap or Scheduling/Wellness visits Payer: Payor: [employer] MEDICAID / Plan: [employer] MEDICAID / Product Type: Medicaid / Care [...] 2022 3:21 PM documented in this encounter [facility] 01-26-2022 Miscellaneous Notes Last time 10/29/2021 I [...] by 01/27/2022 ThanksKeanu documented in this encounter [facility] 01-06-2022 Miscellaneous Notes Smoking Cessation Navigation Outcome of contact: Left Message Comments: A voicemail has been left for this patient regarding Tobacco Cessation support options. If this patient has any further questions they can email us at or call us at [phone]. eHealth Morphology Teacher/Smoking Cessation Navigator: Zaina Schmitz, [facility] documented in this encounter [facility] 01-06-2022 Miscellaneous Notes Can you please change plan to reflect Infliximab next time increase dose to 5mg/ kg- to decrease disease activity thanks documented in this encounter [facility] 01-05-2022 History of Present illness Narrative Since [...] open sores? No documented in this encounter [facility] 01-05-2022 Instructions Fariba Hill APRN.ASSEMBLY LINE LEADER - 01/05/2022 10:34 AM EST -PLEASE NOTE THAT WE REVIEW ALL YOUR TEST RESULTS AT YOUR NEXT FOLLOW UP VISIT WITH YOU. IF ANY ABNORMAL LAB REQUIRES SOONER ATTENTION, WE WILL CONTACT YOU. -If you have signed up on MyChart, we will release your test results through SpotterRF. Increase inflxiamab every 7 weeks 5mg/kg Start [...] that features the Whole Plant Based diet, [place] over knives (see video online and visit website). Another movie that was recently released is: Eating You Alive (you can find it at Training Amigo) Dr. Lisa Armando is a [facility] physician who is an expert in Whole Plant based diet. His website is Hole 19. His research work highlighted the benefits of [...] on a whole plant based diet, at [employer].Reniac and the free keisha is 21-Day Vegan Kickstart with meals and recipes to follow. He has multiple free videos and YouTube, for example: [email or web address] , [email or web address] Dr. Gordy Farrell has proven starch diet whole plant based and benefit to his Rheumatoid Arthritis patients, his website: drSaisei.Shadow Puppet Dr. Maira Bertrand is a renowned sleep scientist, who has studied and researched the benefits of the Whole plant based diet. He has also researched the adverse effects of animal proteins on health. He presents many of his research findings in his book The [place] study. Dr. Maurilio Xie has completed many research trials proving the reversal of diseases with healthy lifestyle and the Whole Plant based diet. Dr. Maurilio Xie website is: Smarkets.Shadow Puppet UnDo It a new book by Dr. Maurilio Thomas has dedicated a website and additional time to reviewing all food related articles and research and presents them in his power point presentation and on his website at: nutritionfacts.org Dr. Thomas has multiple free videos and YouTube, for example https://youHaofang Online Information Technologyu.be/aSgNkhgVtks and [email or web address]. Also, you could find additional information by reading or watching online and YouTube such as: Drier Helper AJ, Cooking With Plants, The Vegan Corner (recipes from an Scottish Drier Helper), and visiting the provided websites for additional information on the whole plant based benefit and cooking recipes. The Whole Foods Plant Based Cooking Show Athletes such as Kelvin Kan, Antonio Guillermo, Shaheen Mooney YouTube Guilt Free Shaheen Mooney YouTube Guilt Free TV and Hua with Cartela AB. Goodbye Lupus by Kandi Leonard M.D If [...] - Gentle Yoga Anyone Can Do Anywhere www.[place].Shadow Puppet/y oga landon chi, stretching, cardio, gradual strengthening, [...] or a higher dose. Raw: Garlic, Cilantro, Saint Joseph nuts, Pumpkin seeds, [place] seeds and Flax seed powder have been reported to help with certain metal detoxification such as mercury. [place]-3 plant based sources: rachana seeds, flax seed powder, flax milk, walnuts. Turmeric can be found natural, used as the spice powder or the root with your food. This is also available as a capsule. Sweet cherries (raw cleaned or frozen) and Turmeric have anti-inflammatory benefit Start reviewing the Whole Plant Based Diet, by watching [place] over [place] movie and then review website. There are many other resources and educational information on the Whole plant based diet on the Internet and documentaries. There are other resources for wellness that you can also benefit from, such as the [facility] Wellness website, [facility]org and includes the Mediterranean heart healthy diet and yoga and meditation. Please avoid all dairy products. You could use non-dairy milk such as Flax milk, Cashew milk, Martin milk, Rice milk, Oat milk or Hemp [...] resources: www.nof.org (National Osteoporosis Foundation) http://www.osteo.org/osteolinks.a sp [facility]: 8-718-468-BONE [facility] Calcium Information [place]: Non-Dairy, Plant based Milk, contain 1 glass = 450 mg of calcium Exampled include Flax Milk, Martin Milk, Cashew Milk Examples of Food Sources of Calcium from [facility] Food Milligrams (mg) per serving Percent DV* Soymilk, calcium-fortified, 8 ounces 299 30 [place] juice, calcium-fortified, 6 ounces 261 26 Tofu, firm, made with calcium sulfate, cup* 253 25 Tofu, soft, made with calcium sulfate, cup* 138 14 Msmth-ga-bdm cereal, calcium-fortified, 1 cup 100-1,000 10-100 Turnip greens, fresh, boiled, cup 99 10 Kale, raw, chopped, 1 cup 100 10 Kale, fresh, cooked, 1 cup 94 9 Burmese cabbage, bok gilbert, raw, shredded, 1 cup 74 7 Bread, white, 1 slice 73 7 Tortilla, corn, dyngn-xs-bedn/mcgee, one 6 diameter 46 5 Tortilla, flour, xgdsu-yq-hqmo/mcgee, one 6 diameter 32 3 Bread, whole-wheat, [...] daily with a meal; Certain patients required 5587-7555 iu daily and in patients deficient in [...] bones. Studies show approximately 50% of [place] men and women are vitamin D deficient [...] thritis/osteo/info.htm http://ods.od.nih.gov/factsheets/ vitamind.asp National Institutes of Health: 1-436-519-BONE [facility] Calcium Information [place]: Thank you for choosing [facility] for your healthcare. Sincerely, Fariba Hill APRN.ASSEMBLY LINE LEADER documented in this encounter [facility] 01-05-2022 History of Present illness Narrative FOLLOW UP VISIT- virtual PCP: Tino Blake MD [address] [place] [address] Ms. Ludwig is a 36 year old [...] is planning to follow up with local telemarketer closer to home. Until she has her [...] her lifetime. We are assisting with social services analyst consult, also to help with adherence to [...] which included preparing to see the patient, jewi-qn-oktb patient care, completing clinical documentation, obtaining and/or [...] Tino Blake MD documented in this encounter [facility] 01-02-2022 Miscellaneous Notes I LMOM for Any [...] Your infusion team documented in this encounter [facility] 12-22-2021 Miscellaneous Notes Called patient to offer to reschedule appointments to 01/01, left message with . Attempted to call pt, no answer. Sent her a Raise Your Flagt message. Please call pt to reschedule infusion and appt with Fariba Hill (due 01/01/22). Can cancel appts on 01/05/22 if patient agrees to change to 01/01. She is scheduled 12/16/21 which is too soon. Last infusion 11/13/21, ordered every 7 weeks. Can leave appt with Fariba for tomorrow until patient calls back to acknowledge that her appts are cancelled. documented in this encounter [facility] 12-15-2021 Miscellaneous Notes I called and left [...] a brief explanation. documented in this encounter [facility] 11-13-2021 History of Present illness Narrative Since [...] open sores? No documented in this encounter [facility] 11-11-2021 Miscellaneous Notes I LMOM for pt [...] or open sores? documented in this encounter [facility] 10-29-2021 Instructions Fariba Hill APRN.[facility] - 10/29/2021 1:51 PM EDT -PLEASE NOTE THAT WE REVIEW ALL YOUR TEST RESULTS AT YOUR NEXT FOLLOW UP VISIT WITH YOU. IF ANY ABNORMAL LAB REQUIRES SOONER ATTENTION, WE WILL CONTACT YOU. -If you have signed up on MicroPhagehart, we will release your test results through SpotterRF. Increase inflxiamab every 7 weeks 5mg/kg Start [...] that features the Whole Plant Based diet, [place] over knives (see video online and visit website). Another movie that was recently released is: Eating You Alive (you can find it at Training Amigo) Dr. Lisa Armando is a [facility] physician who is an expert in Whole Plant based diet. His website is Hole 19. His research work highlighted the benefits of [...] on a whole plant based diet, at TapTrack and the free keisha is 21-Day Intoan Technology with meals and recipes to follow. He has multiple free videos and YouTube, for example: https://youtu.be/mibDrdyI9q1 , https://youHaofang Online Information Technologyu.be/SsLKWzlrf2b Dr. Gordy Farrell has proven starch diet whole plant based and benefit to his Rheumatoid Arthritis patients, his website: ruyMed ePad.Shadow Puppet Dr. Maira Bertrand is a renowned sleep scientist, who has studied and researched the benefits of the Whole plant based diet. He has also researched the adverse effects of animal proteins on health. He presents many of his research findings in his book The [place] study. Dr. Maurilio Xie has completed many research trials proving the reversal of diseases with healthy lifestyle and the Whole Plant based diet. Dr. Maurilio Xie website is: mignonTimeLab.Shadow Puppet UnDo It a new book by Dr. Maurilio Thomas has dedicated a website and additional time to reviewing all food related articles and research and presents them in his power point presentation and on his website at: nutritionfacts.org Dr. Thomas has multiple free videos and YouTube, for example https://youtu.be/aSgNkhgVtks and [email or web address]://youBountyHunter.[email or web address]. Also, you could find additional information by reading or watching online and YouTube such as: Drier Helper AJ, Cooking With Plants, The Vegan Corner (recipes from an Scottish Drier Helper), and visiting the provided websites for additional information on the whole plant based benefit and cooking recipes. The Whole Foods Plant Based Cooking Show Athletes such as Kelvin Kan, Antonio Guillermo, Shaheen Mooney YouTube Guilt Free Shaheen Mooney YouTube Guilt Free TV and Hua with Cartela AB. Goodbye Lupus by Kandi Leonard M.D If [...] - Gentle Yoga Anyone Can Do Anywhere www.Green Planet [employer]s/y oga landon chi, stretching, cardio, gradual strengthening, [...] or a higher dose. Raw: Garlic, Cilantro, Saint Joseph nuts, Pumpkin seeds, [place] seeds and Flax seed powder have been reported to help with certain metal detoxification such as mercury. [place]-3 plant based sources: rachana seeds, flax seed powder, flax milk, walnuts. Turmeric can be found natural, used as the spice powder or the root with your food. This is also available as a capsule. Sweet cherries (raw cleaned or frozen) and Turmeric have anti-inflammatory benefit Start reviewing the Whole Plant Based Diet, by watching [place] over Knives movie and then review website. There are many other resources and educational information on the Whole plant based diet on the Internet and documentaries. There are other resources for wellness that you can also benefit from, such as the [facility] Wellness website, [facility].org and includes the Mediterranean heart healthy diet and yoga and meditation. Please avoid all dairy products. You could use non-dairy milk such as Flax milk, Cashew milk, Martin milk, Rice milk, Oat milk or Hemp [...] Foundation) http://www.osteo.org/osteolinks.a sp National Institutes of Health: 6-719-594-BONE The Calcium Information Center: Non-Dairy, Plant based Milk, contain 1 glass = 450 mg of calcium Exampled include Flax Milk, Martin Milk, Cashew Milk Examples of Food Sources of Calcium from NIH Food Milligrams (mg) per serving Percent DV* Soymilk, calcium-fortified, 8 ounces 299 30 [place] juice, calcium-fortified, 6 ounces 261 26 Tofu, firm, made with calcium sulfate, cup* 253 25 Tofu, soft, made with calcium sulfate, cup* 138 14 Rzrii-mm-grz cereal, calcium-fortified, 1 cup 100-1,000 10-100 Turnip greens, fresh, boiled, cup 99 10 Kale, raw, chopped, 1 cup 100 10 Kale, fresh, cooked, 1 cup 94 9 Burmese cabbage, bok gilbert, raw, shredded, 1 cup 74 7 Bread, white, 1 slice 73 7 Tortilla, corn, xalfs-po-mfsu/mcgee, one 6 diameter 46 5 Tortilla, flour, vpppv-nk-zjqk/mcgee, one 6 diameter 32 3 Bread, whole-wheat, [...] daily with a meal; Certain patients required 7329-3632 iu daily and in patients deficient in [...] bones. Studies show approximately 50% of [place] men and women are vitamin D deficient [...] available from: www.nof.org (the national osteoporosis foundation) http://www.[facility].org/ar thritis/osteo/info.htm http://ods.od.nih.gov/factsheets/ vitamind.asp [facility]: 3-168-517-BONE [facility] Calcium Information [place]: Thank you for choosing [facility] for your healthcare. Sincerely, Fariba Hill APRN.ASSEMBLY LINE LEADER documented in this encounter [facility] 10-29-2021 History of Present illness Narrative FOLLOW UP VISIT- virtual PCP: Tino Blake MD [address] [address] Ms. Ludwig is a 36 year old [...] is planning to follow up with local telemarketer closer to home. Until she has her [...] her lifetime. We are assisting with social services analyst consult, also to help with adherence to [...] from date of this visit. Fariba Hill APRN.ASSEMBLY LINE LEADER Recommendations to share with referring physician/Primary care [...] the care of your patient. Fariba Hill APRN.ASSEMBLY LINE LEADER CC: Tino Blake MD documented in this encounter [facility] 10-28-2021 Miscellaneous Notes If pt calls back, [...] a brief explanation. documented in this encounter [facility] 10-07-2021 Note PROCEDURE: XR FOOT L T [...] authenticated by: TERESO HERNANDEZ Date: 2021-10-07 12:06 [facility] 09-05-2021 Note OPERATIVE NOTE OPERATION DATE: 09/05/2021 PROCEDURE: Bilateral laparoscopic salpingectomy. PREOPERATIVE DIAGNOSIS:: 1. Multiparity. 2. Desires permanent sterilization. POSTOPERATIVE DIAGNOSIS:: 1. Multiparity. 2. Desires permanent sterilization. ANESTHESIA: General. SURGEON: Patricio Ram D.O. INSTRUCTOR NURSE: AMANDA Negron URINE OUTPUT: Yellow and clear. [...] and needle counts were correct x2. : [facility] Signed and Approved by: DR PATRICIO RAM . 09/12/2021 08:16:00 [facility] 09-03-2021 History of Present illness Narrative [...] open sores? No documented in this encounter [facility] 09-01-2021 Miscellaneous Notes I spoke to Sarah, she is coming for her infusion on 09-03-21. She states that she was on a z-pack for a URI, and that she has finished it 2 weeks ago. She was prescribed this from an ER visit in [place]. Pt states that she is feeling much better. documented in this encounter [facility] 08-07-2021 Miscellaneous Notes Spoke with patient Low potassium Please increase potassium in your diet: spinach, sweet potatoes, avocados, coconut water, dried fruits (dates and apricots), bananas, beans, acorn squash, mushrooms. Low vit d Will start rx Other labs acceptable range Labs in 1 month with infusion documented in this encounter [facility] 08-06-2021 History of Present illness Narrative Since [...] open sores? No documented in this encounter [facility] 07-23-2021 History of Present illness Narrative Since [...] open sores? No documented in this encounter [facility] 07-23-2021 Instructions Fariba Hill APRN.ASSEMBLY LINE LEADER - 07/23/2021 9:08 AM EDT -PLEASE NOTE THAT WE REVIEW ALL YOUR TEST RESULTS AT YOUR NEXT FOLLOW UP VISIT WITH YOU. IF ANY ABNORMAL LAB REQUIRES SOONER ATTENTION, WE WILL CONTACT YOU. -If you have signed up on Tagkastt, we will release your test results through SpotterRF. - Vitamin D : vitamin D3: 2000 [...] that features the Whole Plant Based diet, Leaf [place] over knives (see video online and visit website). Another movie that was recently released is: Eating You Alive (you can find it at Training Amigo) Dr. Lisa Armando is a [facility] physician who is an expert in Whole Plant based diet. His website is Hole 19. His research work highlighted the benefits of [...] on a whole plant based diet, at [employer] and the free keisha is 21-Day Vegan Kickstart with meals and recipes to follow. He has multiple free videos and YouTube, for example: https://youHaofang Online Information Technologyu.be/pltKtzgJ7g8 , https://youtu.be/DbGZKlxrk3g Dr. Gordy Farrell has proven starch diet whole plant based and benefit to his Rheumatoid Arthritis patients, his website: HealthStream.Shadow Puppet Dr. Maira Bertrand is a renowned sleep scientist, who has studied and researched the benefits of the Whole plant based diet. He has also researched the adverse effects of animal proteins on health. He presents many of his research findings in his book The [place] study. Dr. Maurilio Xie has completed many research trials proving the reversal of diseases with healthy lifestyle and the Whole Plant based diet. Dr. Maurilio Xie website is: Smarkets.Shadow Puppet UnDo It a new book by Dr. Maurilio Thomas has dedicated a website and additional time to reviewing all food related articles and research and presents them in his power point presentation and on his website at: nutritionfacts.org Dr. Thomas has multiple free videos and YouTube, for example https://youHaofang Online Information Technologyu.be/aSgNkhgVtks and https://youtu.be/lXXXygDRyBU. Also, you could find additional information by reading or watching online and YouTube such as: Drier Helper AJ, Cooking With Plants, The Vegan Corner (recipes from an Scottish Drier Helper), and visiting the provided websites for additional information on the whole plant based benefit and cooking recipes. The Whole Foods Plant Based Cooking Show Athletes such as Kelvin Kan, Antonio Guillermo, Shaheen Mooney YouTube Guilt Free Shaheen Mooney YouTube Guilt Free TV and Hua with Cartela AB. Goodbye Lupus by Kandi Leonard M.D If [...] - Gentle Yoga Anyone Can Do Anywhere www.Green Planet [employer]s/y oga landon chi, stretching, cardio, gradual strengthening, [...] or a higher dose. Raw: Garlic, Cilantro, Saint Joseph nuts, Pumpkin seeds, [place] seeds and Flax seed powder have been reported to help with certain metal detoxification such as mercury. [place]-3 plant based sources: rachana seeds, flax seed powder, flax milk, walnuts. Turmeric can be found natural, used as the spice powder or the root with your food. This is also available as a capsule. Sweet cherries (raw cleaned or frozen) and Turmeric have anti-inflammatory benefit Start reviewing the Whole Plant Based Diet, by watching [place] over [place] movie and then review website. There are many other resources and educational information on the Whole plant based diet on the Internet and documentaries. There are other resources for wellness that you can also benefit from, such as the [facility] Wellness website, [facility].org and includes the Mediterranean heart healthy diet and yoga and meditation. Please avoid all dairy products. You could use non-dairy milk such as Flax milk, Cashew milk, Martin milk, Rice milk, Oat milk or Hemp [...] Foundation) http://www.osteo.org/osteolinks.a sp National Institutes of Health: 6-605-491-BONE [facility] Calcium Information Center: Non-Dairy, Plant based Milk, contain 1 glass = 450 mg of calcium Exampled include Flax Milk, Martin Milk, Cashew Milk Examples of Food Sources of Calcium from [facility] Food Milligrams (mg) per serving Percent DV* Soymilk, calcium-fortified, 8 ounces 299 30 [place] juice, calcium-fortified, 6 ounces 261 26 Tofu, firm, made with calcium sulfate, cup* 253 25 Tofu, soft, made with calcium sulfate, cup* 138 14 Nfuli-el-bjm cereal, calcium-fortified, 1 cup 100 1,000 10 100 Turnip greens, fresh, boiled, cup 99 10 Kale, raw, chopped, 1 cup 100 10 Kale, fresh, cooked, 1 cup 94 9 Burmese cabbage, bok gilbert, raw, shredded, 1 cup 74 7 Bread, white, 1 slice 73 7 Tortilla, corn, kbdup-na-osxg/mcgee, one 6 diameter 46 5 Tortilla, flour, lcmyl-xx-mump/mcgee, one 6 diameter 32 3 Bread, whole-wheat, [...] daily with a meal; Certain patients required 2955-9295 iu daily and in patients deficient in [...] bones. Studies show approximately 50% of [place] men and women are vitamin D deficient [...] thritis/osteo/info.htm http://ods.od.nih.gov/factsheets/ vitamind.asp National Institutes of Health: 3-778-487-BONE The Calcium Information Center: Thank you for choosing [facility] for your healthcare. Sincerely, Fariba Hill APRN.ANTHONY documented in this encounter [facility] 07-23-2021 History of Present illness Narrative FOLLOW UP VISIT- virtual PCP: Tino Blake MD [address] [place] [address] Ms. Ludwig is a 36 year old [...] is planning to follow up with local telemarketer closer to home. Until she has her [...] her lifetime. We are assisting with social services analyst consult, also to help with adherence to [...] which included preparing to see the patient, tipl-tv-czmr patient care, completing clinical documentation, obtaining and/or [...] from date of this visit. Fariba Hill APRN.ASSEMBLY LINE LEADER Recommendations to share with referring physician/Primary care [...] the care of your patient. Fariba Hill APRN.ASSEMBLY LINE LEADER CC: Tino Blake MD documented in this encounter [facility] 07-22-2021 Miscellaneous Notes Patient called back stating that she will be hear for her infusion tomorrow. Patient can be reached at [phone]. Please advise. I left a message for [...] will be cancelled. documented in this encounter [facility] 07-18-2021 Miscellaneous Notes Sent pt a DataSphere message. Attempted to contact patient Unable to leave message as voicemail is full No alternate number to try Please try again later Attempted number on file. No answer, unable to leave a message. I then attempted to reach number on file [phone] & she states there is nobody by the name Any at that phone number. Phylicia Torres MA Please call and update patient reflexis infusion approved. Please remind patient to complete labs this week thanks documented in this encounter [facility] 07-10-2021 Miscellaneous Notes Per Chilo, initial review [...] hears back. Please advise, thanks! [facility] [phone] Patient has been on mtx and arava [...] Request from [employer]or by: Phone [facility] [phone] Email Sent to: TE encounter Requested Clinicals/Information Sent: N/A documented in this encounter [facility] 06-26-2021 Miscellaneous Notes Fax received and placed on providers desk for review Called jenifer Spoke with Jaclyn M P2P was denied due to patient not [...] Phylicia Torres MA [facility] for approval documented in this encounter [facility] 06-17-2021 Miscellaneous Notes Patient has been scheduled as requested for 06/20/21. I spoke with Ms. Ludwig and she is aware of all of the appointment details. Bailey Walker PSS June 17, 2021 11:56 AM Pt aware. Please call to schedule pt for lab as pt requested an apt. Thanks. Phylicia Torres MA ----- Message from Fariba Hill APRN.ASSEMBLY LINE LEADER sent at 06/16/2021 4:27 PM EDT ----- Please call patient and review documented in this encounter [facility] 09-15-2020 Hospital Discharge instructions Loida Caro PA-C - 09/15/2020 Call to arrange follow-up with primary care for repeat check within 24 to 48 hours. If you go home develop a high fever or worsening symptoms do not hesitate to return to the ER immediately. The following attachments cannot be sent through [facility].Pneumonia (Danish)documented in this encounter [employer] [facility]: Evaluation note Diagnosis Pneumonia of both lungs due to infectious organism, unspecified part of lung- Primary documented in this encounter [employer] [facility]: evaluation note* Diagnosis Right upper quadrant abdominal pain Abdominal pain, right upper quadrant documented in this encounter [employer] [facility]: evaluation note* Diagnosis Seropositive rheumatoid arthritis (HCC)- Primary Rheumatoid arthritis documented in this encounter [facility] note* Diagnosis Seropositive rheumatoid arthritis (HCC)- [...] therapeutic drug monitoring documented in this encounter [facility] note* Diagnosis Seropositive rheumatoid arthritis (HCC)- Primary Rheumatoid arthritis Vitamin D deficiency Unspecified vitamin D deficiency documented in this encounter [facility] note* Diagnosis Seropositive rheumatoid arthritis (HCC)- Primary Rheumatoid arthritis Vitamin D deficiency Unspecified vitamin D deficiency documented in this encounter [facility] note* Diagnosis Dermatomyositis (HCC)- Primary Dermatomyositis Seropositive rheumatoid arthritis (HCC) Rheumatoid arthritis Vitamin D deficiency Unspecified vitamin D deficiency [facility] Diagnosis Seropositive rheumatoid arthritis (HCC)- Primary [...] (HCC) Rheumatoid arthritis documented in this encounter [facility] note* Diagnosis Seropositive rheumatoid arthritis (HCC)- Primary Rheumatoid arthritis Vitamin D deficiency Unspecified vitamin D deficiency [facility] Diagnosis Seropositive rheumatoid arthritis (HCC)- Primary [...] (HCC) Rheumatoid arthritis [facility] Diagnosis Vitamin D deficiency- Primary Unspecified vitamin D deficiency Seropositive rheumatoid arthritis (HCC) Rheumatoid arthritis [facility] Diagnosis Seropositive rheumatoid arthritis (HCC)- Primary Rheumatoid arthritis documented in this encounter [facility] note* Diagnosis Seropositive rheumatoid arthritis (HCC)- Primary Rheumatoid arthritis documented in this encounter [facility] note* Diagnosis Seropositive rheumatoid arthritis (HCC) Rheumatoid arthritis [facility] Diagnosis Seropositive rheumatoid arthritis (HCC)- Primary [...] of other medications [facility] Diagnosis Seropositive rheumatoid arthritis (HCC)- Primary Rheumatoid arthritis Vitamin D deficiency Unspecified vitamin D deficiency [facility] Diagnosis Vitamin D deficiency Unspecified vitamin D deficiency documented in this encounter [facility] note* Diagnosis Seropositive rheumatoid arthritis (HCC)- Primary Rheumatoid arthritis documented in this encounter [facility] note* Diagnosis Seropositive rheumatoid arthritis (HCC)- Primary Rheumatoid arthritis Vitamin D deficiency Unspecified vitamin D deficiency documented in this encounter [facility] note* Diagnosis Seropositive rheumatoid arthritis (HCC)- Primary Rheumatoid arthritis documented in this encounter [facility] note* Diagnosis Seropositive rheumatoid arthritis (HCC) Rheumatoid arthritis documented in this encounter [facility] note* Diagnosis Seropositive rheumatoid arthritis (HCC)- [...] Tobacco use disorder documented in this encounter [facility] note* Diagnosis Seropositive rheumatoid arthritis (HCC)- Primary Rheumatoid arthritis Vitamin D deficiency Unspecified vitamin D deficiency Synovitis Synovitis and tenosynovitis, unspecified documented in this encounter [facility] note* Diagnosis Smokes and motivated to quit- Primary Tobacco use disorder Seropositive rheumatoid arthritis (HCC) Rheumatoid arthritis documented in this encounter [facility] note* Diagnosis Seropositive rheumatoid arthritis (HCC)- Primary Rheumatoid arthritis [facility]* Diagnosis Seropositive rheumatoid arthritis (HCC)- Primary Rheumatoid arthritis documented in this encounter [facility] note* Diagnosis Seropositive rheumatoid arthritis (HCC) Rheumatoid arthritis documented in this encounter [facility] note* Diagnosis Seropositive rheumatoid arthritis (HCC)- Primary Rheumatoid arthritis [facility] Diagnosis Seropositive rheumatoid arthritis (HCC)- Primary [...] Other specified counseling documented in this encounter [facility] note* Diagnosis Seropositive rheumatoid arthritis (HCC)- Primary Rheumatoid arthritis documented in this encounter [facility] note* Diagnosis Seropositive rheumatoid arthritis (HCC)- Primary Rheumatoid arthritis [facility] Diagnosis Seropositive rheumatoid arthritis (HCC)- Primary Rheumatoid arthritis Localized superficial swelling, mass, or lump documented in this encounter [facility] note* Diagnosis Seropositive rheumatoid arthritis (HCC)- Primary Rheumatoid arthritis Localized superficial swelling, mass, or lump Encounter for medication review and counseling Other specified counseling Synovitis Synovitis and tenosynovitis, unspecified Encounter to discuss test results Other specified counseling Medication monitoring encounter Encounter for therapeutic drug monitoring Smoker Tobacco use disorder [facility]* Diagnosis Seropositive rheumatoid arthritis (HCC)- Primary Rheumatoid arthritis Vitamin D deficiency Unspecified vitamin D deficiency [facility] Diagnosis Wheezing- Primary [facility] Diagnosis Seropositive rheumatoid arthritis (HCC)- Primary Rheumatoid arthritis Synovitis Synovitis and tenosynovitis, unspecified Vitamin D deficiency Unspecified vitamin D deficiency Localized superficial swelling, mass, or lump Encounter to discuss test results Other specified counseling Encounter for medication review and counseling Other specified counseling Medication monitoring encounter Encounter for therapeutic drug monitoring [facility]* Diagnosis Seropositive rheumatoid arthritis (HCC) Rheumatoid arthritis documented in this encounter [facility] note* Diagnosis ADHD (attention deficit hyperactivity disorder), combined type ([facility])- Primary Attention deficit disorder with hyperactivity Anxiety Anxiety state, unspecified Anxiety- Primary Anxiety state, unspecified Tobacco user Tobacco use disorder BMI 29.0-29.9,adult Adult ADHD (attention deficit hyperactivity disorder) ([facility]) Mild depression ([facility]) Depressive disorder, not elsewhere classified Adult ADHD (attention deficit hyperactivity disorder) ([facility])- Primary Tobacco user Tobacco use disorder Anxiety Anxiety state, unspecified Adult ADHD (attention deficit hyperactivity disorder) ([facility])- Primary Neutropenia, unspecified ([facility]) Neutropenia, unspecified Tobacco user Tobacco use disorder BMI 29.0-29.9,adult Rheumatoid arthritis, involving unspecified site, unspecified whether rheumatoid factor present ([facility]) Anxiety Anxiety state, unspecified Subacute maxillary sinusitis Wheezing Nausea Nausea alone Wheezing [facility] ADHD (attention deficit hyperactivity disorder), combined type ([facility])- Primary Attention deficit disorder with hyperactivity Anxiety [...] deficit hyperactivity disorder) (CMS/HCC)- Primary Neutropenia, unspecified (CMS/[facility]) Neutropenia, unspecified Tobacco user Tobacco use disorder BMI 29.0-29.9,adult Rheumatoid arthritis, involving unspecified site, unspecified whether rheumatoid factor present (CMS/[facility]) Anxiety Anxiety state, unspecified Subacute maxillary sinusitis Wheezing Nausea Nausea alone ADHD (attention deficit hyperactivity disorder), combined type ([facility]/HCC)- Primary Attention deficit disorder with hyperactivity Opioid abuse, uncomplicated (CMS/[facility]) Tobacco user Tobacco use disorder Rheumatoid arthritis, involving unspecified site, unspecified whether rheumatoid factor present (CMS/[facility]) Neutropenia, unspecified type (CMS/[facility]) Mild depression ([facility]) Depressive disorder, not elsewhere classified Anxiety Anxiety state, unspecified BMI 29.0-29.9,adult [facility] Diagnosis ADHD (attention deficit hyperactivity disorder), combined type (CMS/HCC)- Primary Attention deficit disorder with hyperactivity Anxiety Anxiety state, unspecified Anxiety- Primary Anxiety state, unspecified Tobacco user Tobacco use disorder BMI 29.0-29.9,adult Adult ADHD (attention deficit hyperactivity disorder) (CMS/HCC) Mild depression (CMS/[facility]) Depressive disorder, not elsewhere classified Adult ADHD (attention deficit hyperactivity disorder) (CMS/HCC)- Primary Tobacco user Tobacco use disorder Anxiety Anxiety state, unspecified Adult ADHD (attention deficit hyperactivity disorder) (CMS/HCC)- Primary Neutropenia, unspecified (CMS/[facility]) Neutropenia, unspecified Tobacco user Tobacco use disorder BMI 29.0-29.9,adult Rheumatoid arthritis, involving unspecified site, unspecified whether rheumatoid factor present (CMS/[facility]) Anxiety Anxiety state, unspecified Subacute maxillary sinusitis Wheezing Nausea Nausea alone ADHD (attention deficit hyperactivity disorder), combined type (CMS/HCC)- Primary Attention deficit disorder with hyperactivity Opioid abuse, uncomplicated (CMS/[facility]) Tobacco user Tobacco use disorder Rheumatoid arthritis, involving unspecified site, unspecified whether rheumatoid factor present (CMS/[facility]) Neutropenia, unspecified type (CMS/HCC) Mild depression (CMS/[facility]) Depressive disorder, not elsewhere classified Anxiety Anxiety state, unspecified BMI 29.0-29.9,adult Wheezing documented in [facility]* Diagnosis Adult ADHD (attention deficit hyperactivity disorder) ([facility])- Primary Neutropenia, unspecified ([facility]) Neutropenia, unspecified Tobacco user Tobacco use disorder BMI 29.0-29.9,adult Rheumatoid arthritis, involving unspecified site, unspecified whether rheumatoid factor present ([facility]) Anxiety Anxiety state, unspecified Subacute maxillary sinusitis Wheezing Nausea Nausea alone documented in this [facility]* Diagnosis ADHD (attention deficit hyperactivity disorder), combined type ([facility])- Primary Attention deficit disorder with hyperactivity Anxiety Anxiety state, unspecified Anxiety- Primary Anxiety state, unspecified Tobacco user Tobacco use disorder BMI 29.0-29.9,adult Adult ADHD (attention deficit hyperactivity disorder) ([facility]) Mild depression ([facility]) Depressive disorder, not elsewhere classified Adult ADHD (attention deficit hyperactivity disorder) ([facility])- Primary Tobacco user Tobacco use disorder Anxiety Anxiety state, unspecified Adult ADHD (attention deficit hyperactivity disorder) ([facility])- Primary Neutropenia, unspecified ([facility]) Neutropenia, unspecified Tobacco user Tobacco use disorder BMI 29.0-29.9,adult Rheumatoid arthritis, involving unspecified site, unspecified whether rheumatoid factor present ([facility]) Anxiety Anxiety state, unspecified Subacute maxillary sinusitis Wheezing Nausea Nausea alone ADHD (attention deficit hyperactivity disorder), combined type ([facility])- Primary Attention deficit disorder with hyperactivity Opioid abuse, uncomplicated ([facility]) Tobacco user Tobacco use disorder Rheumatoid arthritis, involving unspecified site, unspecified whether rheumatoid factor present ([facility]) Neutropenia, unspecified type ([facility]) Mild depression ([facility]) Depressive disorder, not elsewhere classified Anxiety Anxiety state, unspecified BMI 29.0-29.9,adult Well woman exam with routine gynecological exam- Primary Routine gynecological examination Rheumatoid arthritis, unspecified ([facility]) Opioid abuse, uncomplicated ([facility]) Tobacco user Tobacco use disorder Screening mammogram for breast cancer documented in this [facility]* Diagnosis Seropositive rheumatoid arthritis (HCC)- Primary Rheumatoid arthritis documented in this encounter [facility] note* Diagnosis Seropositive rheumatoid arthritis (HCC)- Primary Rheumatoid arthritis Medication monitoring encounter Encounter for therapeutic drug monitoring [facility] Diagnosis Seropositive rheumatoid arthritis (HCC)- Primary Rheumatoid arthritis [facility] Diagnosis ADHD (attention deficit hyperactivity disorder), [...] unspecified site, unspecified whether rheumatoid factor present (CMS/[facility]) Anxiety Anxiety state, unspecified Subacute maxillary sinusitis Wheezing Nausea Nausea alone ADHD (attention deficit hyperactivity disorder), combined type (CMS/HCC)- Primary Attention deficit disorder with hyperactivity Opioid abuse, uncomplicated (CMS/HCC) Tobacco user Tobacco use disorder Rheumatoid arthritis, involving unspecified site, unspecified whether rheumatoid factor present (CMS/[facility]) Neutropenia, unspecified type (CMS/HCC) Mild depression (CMS/HCC) Depressive disorder, not elsewhere classified Anxiety Anxiety state, unspecified BMI 29.0-29.9,adult Well woman exam with routine gynecological exam- Primary Routine gynecological examination Rheumatoid arthritis, unspecified (CMS/HCC) Opioid abuse, uncomplicated (CMS/HCC) Tobacco user Tobacco use disorder Screening mammogram for breast cancer Wheezing [facility] ADHD (attention deficit hyperactivity [...] unspecified site, unspecified whether rheumatoid factor present ([facility]) Anxiety Anxiety state, unspecified Subacute maxillary sinusitis Wheezing Nausea Nausea alone ADHD (attention deficit hyperactivity disorder), combined type ([facility])- Primary Attention deficit disorder with hyperactivity Opioid abuse, uncomplicated ([facility]) Tobacco user Tobacco use disorder Rheumatoid arthritis, involving unspecified site, unspecified whether rheumatoid factor present ([facility]) Neutropenia, unspecified type ([facility]) Mild depression ([facility]) Depressive disorder, not elsewhere classified Anxiety Anxiety state, unspecified BMI 29.0-29.9,adult Well woman exam with routine gynecological exam- Primary Routine gynecological examination Rheumatoid arthritis, unspecified ([facility]) Opioid abuse, uncomplicated ([facility]) Tobacco user Tobacco use disorder Screening mammogram for breast cancer ADHD (attention deficit hyperactivity disorder), combined type ([facility])- Primary Attention deficit disorder with hyperactivity Neutropenia, unspecified type ([facility]) Opioid abuse, uncomplicated ([facility]) Cigarette nicotine dependence without complication Anxiety Anxiety state, unspecified Wheezing Nausea Nausea alone [facility] Diagnosis ADHD (attention deficit hyperactivity disorder), combined type ([facility])- Primary Attention deficit disorder with hyperactivity Anxiety Anxiety state, unspecified Anxiety- Primary Anxiety state, unspecified Tobacco user Tobacco use disorder BMI 29.0-29.9,adult Adult ADHD (attention deficit hyperactivity disorder) ([facility]) Mild depression ([facility]) Depressive disorder, not elsewhere classified Adult ADHD (attention deficit hyperactivity disorder) ([facility])- Primary Tobacco user Tobacco use disorder Anxiety Anxiety state, unspecified Adult ADHD (attention deficit hyperactivity disorder) ([facility])- Primary Neutropenia, unspecified ([facility]) Neutropenia, unspecified Tobacco user Tobacco use disorder BMI 29.0-29.9,adult Rheumatoid arthritis, involving unspecified site, unspecified whether rheumatoid factor present ([facility]) Anxiety Anxiety state, unspecified Subacute maxillary sinusitis Wheezing Nausea Nausea alone ADHD (attention deficit hyperactivity disorder), combined type ([facility])- Primary Attention deficit disorder with hyperactivity Opioid abuse, uncomplicated ([facility]) Tobacco user Tobacco use disorder Rheumatoid arthritis, involving unspecified site, unspecified whether rheumatoid factor present ([facility]) Neutropenia, unspecified type ([facility]) Mild depression ([facility]) Depressive disorder, not elsewhere classified Anxiety Anxiety state, unspecified BMI 29.0-29.9,adult Well woman exam with routine gynecological exam- Primary Routine gynecological examination Rheumatoid arthritis, unspecified Opioid abuse, uncomplicated ([facility]) Tobacco user Tobacco use disorder Screening mammogram for breast cancer ADHD (attention deficit hyperactivity disorder), combined type ([facility])- Primary Attention deficit disorder with hyperactivity Neutropenia, unspecified type ([facility]) Opioid abuse, uncomplicated ([facility]) Cigarette nicotine dependence without complication Anxiety Anxiety state, unspecified Wheezing Nausea Nausea alone Wheezing documented in this encounter [facility]* Diagnosis ADHD (attention deficit hyperactivity disorder), combined type ([facility])- Primary Attention deficit disorder with hyperactivity Anxiety Anxiety state, unspecified Anxiety- Primary Anxiety state, unspecified Tobacco user Tobacco use disorder BMI 29.0-29.9,adult Adult ADHD (attention deficit hyperactivity disorder) ([facility]) Mild depression ([facility]) Depressive disorder, not elsewhere classified Adult ADHD (attention deficit hyperactivity disorder) ([facility])- Primary Tobacco user Tobacco use disorder Anxiety Anxiety state, unspecified Adult ADHD (attention deficit hyperactivity disorder) ([facility])- Primary Neutropenia, unspecified ([facility]) Neutropenia, unspecified Tobacco user Tobacco use disorder BMI 29.0-29.9,adult Rheumatoid arthritis, involving unspecified site, unspecified whether rheumatoid factor present ([facility]) Anxiety Anxiety state, unspecified Subacute maxillary sinusitis Wheezing Nausea Nausea alone ADHD (attention deficit hyperactivity disorder), combined type ([facility])- Primary Attention deficit disorder with hyperactivity Opioid abuse, uncomplicated ([facility]) Tobacco user Tobacco use disorder Rheumatoid arthritis, involving unspecified site, unspecified whether rheumatoid factor present ([facility]) Neutropenia, unspecified type ([facility]) Mild depression ([facility]) Depressive disorder, not elsewhere classified Anxiety Anxiety state, unspecified BMI 29.0-29.9,adult Well woman exam with routine gynecological exam- Primary Routine gynecological examination Rheumatoid arthritis, unspecified Opioid abuse, uncomplicated ([facility]) Tobacco user Tobacco use disorder Screening mammogram for breast cancer ADHD (attention deficit hyperactivity disorder), combined type ([facility])- Primary Attention deficit disorder with hyperactivity Neutropenia, unspecified type ([facility]) Opioid abuse, uncomplicated ([facility]) Cigarette nicotine dependence without complication Anxiety Anxiety state, unspecified Wheezing Nausea Nausea alone ADHD (attention deficit hyperactivity disorder), combined type ([facility]/HCC) Attention deficit disorder with hyperactivity documented in this encounter [facility] for referral (narrative)* Diagnostic Procedure Only (Routine) - Authorized Specialty Diagnoses / Procedures Referred By Contac t Referred To Contact XR IMAGING Diagnoses Seropositive rheumatoid arthritis (HCC) Procedures XR FOOT GENERAL 3V AP/LAT/OBL BILATERAL RADEX FOOT COMPLETE MINIMUM 3 VIEWS Fariba Hill APRN.ASSEMBLY LINE LEADER [address] [place] [address] Xr Imaging Referral ID Status Reason Start Date Expiration Date Visits Requested Visits Authorized [id number] Authorized Auto-Generat ed Referral 02/24/2022 03/26/2023 [address] [facility] for referral (narrative)* Diagnostic Procedure Only (Routine) - Pending Review Specialty Diagnoses / Procedures Referred By Contac t Referred To Contact XR IMAGING Diagnoses Seropositive rheumatoid arthritis (HCC) Procedures XR FOOT GENERAL 3V AP/LAT/OBL BILATERAL RADEX FOOT COMPLETE MINIMUM 3 VIEWS Fariba Hill APRN.ASSEMBLY LINE LEADER [address] [place] [address] Xr Imaging Referral ID Status Reason Start Date Expiration Date Visits Requested Visits Authorized [id number] Pending Review Auto-Generat ed Referral 02/28/2022 03/30/2023 [address] [facility] for referral (narrative)* Diagnostic Procedure Only (Routine) - Pending Review Specialty Diagnoses / Procedures Referred By Contac t Referred To Contact XR IMAGING Diagnoses Seropositive rheumatoid arthritis (HCC) Procedures XR FOOT GENERAL 3V AP/LAT/OBL BILATERAL RADEX FOOT COMPLETE MINIMUM 3 VIEWS Fariba Hill APRN.ASSEMBLY LINE LEADER [address] [place] [address] [place] [address] Referral ID Status Reason Start Date Expiration Date Visits Requested Visits Authorized [id number] Pending Review Auto-Generat ed Referral 10/22/2022 11/21/2023 1 1 [facility] for referral (narrative)* Diagnostic Procedure Only (Routine) - Pending Review Specialty Diagnoses / Procedures Referred By Contac nabila Referred To Contact US IMAGING Diagnoses Seropositive rheumatoid arthritis (HCC) Localized superficial swelling, mass, or lump Procedures US EXTREMITY MASS/FLUID COLLECTION LEFT Fariba Hill APRN.ASSEMBLY LINE LEADER [address] [place] [address] [place] [address] Referral ID Status Reason Start Date Expiration Date Visits Requested Visits Authorized [id number] Pending Review Auto-Generat ed Referral 04/28/2023 05/27/2024 1 1 [facility] for visit Narrative* Diagnostic Procedure Only (Routine) - Closed Specialty Diagnoses / Procedures Referred By Contneville t Referred To Contact XR IMAGING Diagnoses Seropositive rheumatoid arthritis (HCC) Procedures XR FOOT GENERAL 3V AP/LAT/OBL BILATERAL RADEX FOOT COMPLETE MINIMUM 3 VIEWS Fariba Hill APRN.ASSEMBLY LINE LEADER [address] [place] [address] [place] [address] Referral ID Status Reason Start Date Expiration Date V isits Requested Visits Authorized [id number] Closed Auto-Generate d Referral 04/14/2022 02/21/2023 1 1 [facility] Discharge Instructions * Instructions* Loida Caro PA-C [...] be sent through Care Everywhere. * Candidiasis (Danish) * Miscarriage: Threatened (Danish) documented in this encounter* Instructions* Loida Caro PA-C - 01/28/2019 Use ice rest keep wrist in splint. Follow-up with orthopedic provider listed below for further evaluation of continued pain. * Attachments The following attachments cannot be sent through Care Everywhere. * Carpal Tunnel Syndrome (Danish) documented in this encounter* Instructions* Tami Payne RN - 05/02/2019 Outpatient Instructions for IM or Subcutaneous Injections [address] [place] [address] You are advised to carry out the [...] Outpatient Instructions for IM or Subcutaneous Injections [address] [place] [address] You are advised to carry out the [...] Follow-up with your OB doctor as specified. [facility] OB Department phone: Dr. Kera Pardo [facility] Dr. Mendy Viera [facility] [address] [facility] [id number] [place] [address] or [place] DIET Eat a well balanced diet focusing on foods high in fiber and protein. Drink plenty of fluids especially water. To avoid constipation you may take a mild stool softener as recommended by your doctor or machine puller and laster. ACTIVITY Gradually increase your activity. Resume exercise regimen only after advice by your doctor or machine puller and laster. Avoid lifting anything heavier than a gallon of milk for SIX weeks. Avoid driving until your doctor or machine puller and laster has given their approval. Rise slowly from [...] medications as recommended by your doctor or machine puller and laster for pain If you develop a warm, [...] vitamins as directed by your doctor or machine puller and laster. Refer to the booklet in the folder/binder for more information. If you feel you need more assistance or have questions, please call Sarah Wang IBCLC, fitness sales consultant, at or the OB department to [...] through Care Everywhere. * COVID-19 Viral Test (Danish) documented in this encounter Assessments Diagnosis Threatened [...] Documents on File Type Date Recorded Patient Boom Crane Operator Expl anation Advance Directives and Living Will Power of Can Carrier Documents on File Type Date Recorded Patient Boom Crane Operator Expl anation Advance Directives and Living Will Power of Can Carrier Latest Code Status on File Code Status Date Activated Date Inactivated Comments Full Code 07/12/2019 1:54 PM Full Code 07/11/2019 8:21 PM 07/12/2019 1:54 PM Full Code 07/11/2019 7:48 PM 07/11/2019 7:51 PM Documents on File Type Date Recorded Patient Boom Crane Operator Expl anation ACP-Advance Directive ACP-Power of Can Carrier Latest Code Status on File Code Status Date Activated Date Inactivated Comments Full Code 07/12/2019 1:54 PM 07/13/2019 3:24 PM Reason for Referral Status Reason Specialty Diagnoses / Procedures Re ferred By Contact Referred To Contact Open Radiology Diagnoses Superficial thrombophlebitis of left upper extremity Procedures VL DUP UPPER EXTREMITY VENOUS LEFT Mk Mayo MD [address] [place] [id number] Status Reason Specialty Diagnoses / Procedures Referre d By Contact Referred To Contact Open Radiology Diagnoses Right upper quadrant abdominal pain Procedures US Gallbladder Tosha Mcginnis, REPAIRER MAINTENANCE BUILDING - CNM [address] [place] [address] Specialty Diagnoses / Procedures Referred By Contneville t Referred To Contact Podiatry Diagnoses Pain in left foot Procedures CONSULT TO PODIATRY OFFICE/OUTPATIENT [facility] 60-74 MINUTES Fariba Hill, REPAIRER MAINTENANCE BUILDING.ASSEMBLY LINE LEADER [address] [place] [address] Referral ID Status Reason Start Date Expiration Date Visits Requested Visits Authorized [id number] Pending Review PCP Requested Referral 2 01/05/2023 1 1 Specialty Diagnoses / Procedures Referred By Contac t Referred To Contact Orthopedics Diagnoses Pain in right foot Procedures CONSULT TO ORTHOPAEDICS OFFICE/OUTPATIENT [facility] 60-74 MINUTES Fariba Hill, REPAIRER MAINTENANCE BUILDING.ASSEMBLY LINE LEADER [address] [place] [address] Referral ID Status Reason Start Date Expiration Date Visits Requested Visits Authorized [id number] Pending Review PCP Requested Referral 3 01/20/2024 1 1 Specialty Diagnoses / Procedures Referred By Contac t Referred To Contact Dermatology Diagnoses Localized superficial swelling, mass, or lump Seropositive rheumatoid arthritis (HCC) Procedures CONSULT TO DERMATOLOGY OFFICE/OUTPATIENT [facility] 60 MINUTES Fariba Hill, REPAIRER MAINTENANCE BUILDING.ASSEMBLY LINE LEADER [address] [place] [address] Referral ID Status Reason Start Date Expiration Date Visits Requested Visits Authorized [id number] Authorized PCP Requested Referral 04/28/2023 04/27/2024 1 1 Specialty Diagnoses / Procedures Referred By Contac t Referred To Contact US IMAGING Diagnoses Localized superficial swelling, mass, or lump Seropositive rheumatoid arthritis (HCC) Procedures US ELBOW LEFT US LMTD JOINT/OTH NONVASC XTR STRUX R-T W/IMG Fariba Hill, REPAIRER MAINTENANCE BUILDING.ASSEMBLY LINE LEADER [address] [place] [address] [place] [address] Referral ID Status Reason Start Date Expiration Date Visits Requested Visits Authorized [id number] Pending Review Auto-Generat ed Referral 04/28/2023 05/27/2024 1 1 Specialty Diagnoses / Procedures Referred By Contac t Referred To Contact Diagnoses Adult ADHD (attention deficit hyperactivity disorder) ([facility]) Niya Santiago, MARY [address] [place] [address] Referral ID Status Reason Start Date Expiration Date V isits Requested Visits Authorized [id number] Pending Review 1 1 Referral ID Status Reason Start Date Expiration Date V isits Requested Visits Authorized [id number] Pending Review 1 1 Referral ID Status Reason Start Date Expiration Date V isits Requested Visits Authorized [id number] Pending Review 1 1 History of Present Illness * Any Palencia RN - 07/13/2019 12:10 PM EDT discharge instructions explained to pt, pt v.u. Pt states she did call Radha montez's office and got infant an appointment for July 17 at 11:30a.m. * Any Palencia RN - 07/13/2019 11:10 AM EDT RN reports to Tayla GARCIA that pt's fundus is midline but extends also to her right some. CNM states pt may have uterine fibroids. * Any Palencia RN - 07/13/2019 11:05 AM EDT Maternal obstetrical discharge instructions explained to pt, pt v.u. * Tosha Viera, [place] - JOSE - 07/13/2019 8:26 AM EDT Department of [...] 98 F (36.7 C) Oral 86 16 05/20/20 2253 116/68 98 F (36.7 C) Oral 61 18 05/20/20 2014 125/66 97.6 F (36.4 C) Oral 70 [...] 0844 130/82 77 05/20/20 0843 97 % 07/12/19 0842 129/83 76 07/12/19 0840 139/88 78 07/12/19 0838 (!) 140/87 75 96 % 07/12/19 [...] up in office and views it while mortgage underwriter talking. Updated that pt 3 cm, was [...] 1-3 Hours, ONCE, 1 dose, On Diane 11/13/21 at 1330, TOTAL VOLUME = 250 mL. [...] mg, ORAL, ONCE, 1 dose, On Diane 31/23 at 1000 Given 10/22/2022 9:49 AM EDT 25 mg diphenhydrAMINE 50 mg injection (BENADRYL) 50 mg, INTRAVENOUS, NEEDED, 1 dose, Starting on Wed10/22/22 at 0938, Until Wed10/22/22 at 1040, Administer per hypersensitivity/anaphylax is grading in nursing communication Given 10/22/2022 10:40 AM EDT 50 mg hydrocortisone sodium succinate (PF) 100 mg injection (Solu-CORTEF) 100 mg, INTRAVENOUS, NEEDED, 1 dose, Starting on Wed10/22/22 at 0938, Until Diane 10/22/22 at 1042, [...] 10 MG Juan Daniel Leos MD [address] [place] [address] Rheu Infusion [facility] [address] [place] [address] Referral ID Status Reason Start Date Expiration Date V isits Requested Visits Authorized [id number] Authorized 07/01/2021 09/01/2023 99 99 Reason Comments renflexis infusion Specialty Diagnoses / Procedures Referred By [facility] Referred To Contact Diagnoses Seropositive rheumatoid arthritis (HCC) Procedures INJECTION, RENFLEXIS Juan Daniel Leos MD [address] [place] [address] [facility]fusion [facility] [address] [place] [address] Referral ID Status Reason Start Date Expiration Date V isits Requested Visits Authorized [id number] Authorized 07/01/2021 08/22/2022 9 9 Referral ID Status Reason Start Date Expiration Date V isits Requested Visits Authorized [id number] Authorized 07/01/2021 01/18/2022 5 5 Reason Comments [...] Referred To Contact Diagnoses Term Tosha Viera, REPAIRER MAINTENANCE BUILDING - CNM [address] [place] [address] [facility] Reason Comments Covid Testing Pt states positive e xposure with loss of smell/taste and cough Otalgia Right Joint Pain Knees/feet r/t arthr itis Reason Comments Cough ongoing for a week Status Reason Specialty Diagnoses / Procedures Referre d By Contact Referred To Contact Open Radiology Diagnoses Right upper quadrant abdominal pain Procedures US Gallbladder Ruq Tosha Viera, REPAIRER MAINTENANCE BUILDING - CNM [address] [place] [address] Reason Comments Insurance Authorization Prior Auth Delay ed: Additional Info needed for Renflexis Reason Comments Appointment Specialty Diagnoses / Procedures Referred By Contac t Referred To Contact Diagnoses Seropositive rheumatoid arthritis (HCC) Procedures INJECTION, RENFLEXIS Juan Daniel Leos MD [address] [place] [address] Rheu Infusion [facility] [address] [place] [address] Reason Comments Follow Up Reason Comments Results [...] Expiration Date Visits Re quested Visits Authorized [id number] Closed 07/01/2021 09/01/2023 16 16 Specialty Diagnoses / Procedures Referred By Contac t Referred To Contact Diagnoses Seropositive rheumatoid arthritis (HCC) Procedures TOCILIZUMAB INJECTION tocilizumab 281.2 mg (ACTEMRA) Q28 days Fariba Hill, REPAIRER MAINTENANCE BUILDING.ASSEMBLY LINE LEADER [address] [place] [address] Rheu Infusion [facility] [address] [place] [address] Referral ID Status Reason Start Date Expiration Date V isits Requested Visits Authorized [id number] Authorized 11/10/2022 11/20/2023 14 14 Reason Comments Lab Orders Specialty Diagnoses / Procedures Referred By Inderjit t Referred To Contact Diagnoses Seropositive rheumatoid arthritis (HCC) Procedures TOCILIZUMAB INJECTION tocilizumab 281.2 mg (ACTEMRA) Q28 days Fariba Hill, REPAIRER MAINTENANCE BUILDING.ASSEMBLY LINE LEADER [address] [facility] [place] [address] Rhe[facility] In[facility] [address] [place] [address] Reason Comments F/U 3 Month continues to have se giovanni pain in hands wrists and Rt foot x 2-3 wks Referral ID Status Reason Start Date Expiration Date Visits Requested Visits Authorized [id number] Authorized Clearance Not Met - Pt Rescheduled/ [...] h and pain. Reason Comments Patient Request Reason Comments Med Refill Ordered Prescriptions (unrec [...] or prosecute any alcohol or drug abuse patient.[facility] the event this information is protected by the Federal Confidentiality of Alcohol and Drug Abuse Patient Records regulations: The Federal rules restrict any use of the information to criminally investigate or prosecute any alcohol or drug abuse patient.[facility] CenterIn the event this information is protected by the Federal Confidentiality of Alcohol and Drug Abuse Patient Records regulations: The Federal rules restrict any use of the information to criminally investigate or prosecute any alcohol or drug abuse patient.[facility] CenterIn the event this information is protected by the Federal Confidentiality of Alcohol and Drug Abuse Patient Records regulations: The Federal rules restrict any use of the information to criminally investigate or prosecute any alcohol or drug abuse patient.[facility] CenterIn the event this information is protected by the Federal Confidentiality of Alcohol and Drug Abuse Patient Records regulations: The Federal rules restrict any use of the information to criminally investigate or prosecute any alcohol or drug abuse patient.[facility] CenterIn the event this information is protected by the Federal Confidentiality of Alcohol and Drug Abuse Patient Records regulations: The Federal rules restrict any use of the information to criminally investigate or prosecute any alcohol or drug abuse patient.[facility] CenterIn the event this information is protected by the Federal Confidentiality of Alcohol and Drug Abuse Patient Records regulations: The Federal rules restrict any use of the information to criminally investigate or prosecute any alcohol or drug abuse patient.[facility] CenterIn the event this information is protected by the Federal Confidentiality of Alcohol and Drug Abuse Patient Records regulations: The Federal rules restrict any use of the information to criminally investigate or prosecute any alcohol or drug abuse patient.[facility] CenterIn the event this information is protected by the Federal Confidentiality of Alcohol and Drug Abuse Patient Records regulations: The Federal rules restrict any use of the information to criminally investigate or prosecute any alcohol or drug abuse patient.[facility] CenterIn the event this information is protected by the Federal Confidentiality of Alcohol and Drug Abuse Patient Records regulations: The Federal rules restrict any use of the information to criminally investigate or prosecute any alcohol or drug abuse patient.[facility] CenterIn the event this information is protected by the Federal Confidentiality of Alcohol and Drug Abuse Patient Records regulations: The Federal rules restrict any use of the information to criminally investigate or prosecute any alcohol or drug abuse patient.[facility] CenterIn the event this information is protected by the Federal Confidentiality of Alcohol and Drug Abuse Patient Records regulations: The Federal rules restrict any use of the information to criminally investigate or prosecute any alcohol or drug abuse patient.[facility] CenterIn the event this information is protected by the Federal Confidentiality of Alcohol and Drug Abuse Patient Records regulations: The Federal rules restrict any use of the information to criminally investigate or prosecute any alcohol or drug abuse patient.[facility] CenterIn the event this information is protected by the Federal Confidentiality of Alcohol and Drug Abuse Patient Records regulations: The Federal rules restrict any use of the information to criminally investigate or prosecute any alcohol or drug abuse patient.[facility] CenterIn the event this information is protected by the Federal Confidentiality of Alcohol and Drug Abuse Patient Records regulations: The Federal rules restrict any use of the information to criminally investigate or prosecute any alcohol or drug abuse patient.[facility] CenterIn the event this information is protected by the Federal Confidentiality of Alcohol and Drug Abuse Patient Records regulations: The Federal rules restrict any use of the information to criminally investigate or prosecute any alcohol or drug abuse patient.[facility] CenterIn the event this information is protected by the Federal Confidentiality of Alcohol and Drug Abuse Patient Records regulations: The Federal rules restrict any use of the information to criminally investigate or prosecute any alcohol or drug abuse patient.[facility] CenterIn the event this information is protected by the Federal Confidentiality of Alcohol and Drug Abuse Patient Records regulations: The Federal rules restrict any use of the information to criminally investigate or prosecute any alcohol or drug abuse patient.[facility] CenterIn the event this information is protected by the Federal Confidentiality of Alcohol and Drug Abuse Patient Records regulations: The Federal rules restrict any use of the information to criminally investigate or prosecute any alcohol or drug abuse patient.[facility] CenterIn the event this information is protected by the Federal Confidentiality of Alcohol and Drug Abuse Patient Records regulations: The Federal rules restrict any use of the information to criminally investigate or prosecute any alcohol or drug abuse patient.[facility] CenterIn the event this information is protected by the Federal Confidentiality of Alcohol and Drug Abuse Patient Records regulations: The Federal rules restrict any use of the information to criminally investigate or prosecute any alcohol or drug abuse patient.[facility] CenterIn the event this information is protected by the Federal Confidentiality of Alcohol and Drug Abuse Patient Records regulations: The Federal rules restrict any use of the information to criminally investigate or prosecute any alcohol or drug abuse patient.[facility] CenterIn the event this information is protected by the Federal Confidentiality of Alcohol and Drug Abuse Patient Records regulations: The Federal rules restrict any use of the information to criminally investigate or prosecute any alcohol or drug abuse patient.[facility] CenterIn the event this information is protected by the Federal Confidentiality of Alcohol and Drug Abuse Patient Records regulations: The Federal rules restrict any use of the information to criminally investigate or prosecute any alcohol or drug abuse patient.[facility] CenterIn the event this information is protected by the Federal Confidentiality of Alcohol and Drug Abuse Patient Records regulations: The Federal rules restrict any use of the information to criminally investigate or prosecute any alcohol or drug abuse patient.[facility] CenterIn the event this information is protected by the Federal Confidentiality of Alcohol and Drug Abuse Patient Records regulations: The Federal rules restrict any use of the information to criminally investigate or prosecute any alcohol or drug abuse patient.[facility] CenterIn the event this information is protected by the Federal Confidentiality of Alcohol and Drug Abuse Patient Records regulations: The Federal rules restrict any use of the information to criminally investigate or prosecute any alcohol or drug abuse patient.[facility] CenterIn the event this information is protected by the Federal Confidentiality of Alcohol and Drug Abuse Patient Records regulations: The Federal rules restrict any use of the information to criminally investigate or prosecute any alcohol or drug abuse patient.[facility] CenterIn the event this information is protected by the Federal Confidentiality of Alcohol and Drug Abuse Patient Records regulations: The Federal rules restrict any use of the information to criminally investigate or prosecute any alcohol or drug abuse patient.[facility] CenterIn the event this information is protected by the Federal Confidentiality of Alcohol and Drug Abuse Patient Records regulations: The Federal rules restrict any use of the information to criminally investigate or prosecute any alcohol or drug abuse patient.[facility] CenterIn the event this information is protected by the Federal Confidentiality of Alcohol and Drug Abuse Patient Records regulations: The Federal rules restrict any use of the information to criminally investigate or prosecute any alcohol or drug abuse patient.[facility] CenterIn the event this information is protected by the Federal Confidentiality of Alcohol and Drug Abuse Patient Records regulations: The Federal rules restrict any use of the information to criminally investigate or prosecute any alcohol or drug abuse patient.[facility] CenterIn the event this information is protected by the Federal Confidentiality of Alcohol and Drug Abuse Patient Records regulations: The Federal rules restrict any use of the information to criminally investigate or prosecute any alcohol or drug abuse patient.[facility] CenterIn the event this information is protected by the Federal Confidentiality of Alcohol and Drug Abuse Patient Records regulations: The Federal rules restrict any use of the information to criminally investigate or prosecute any alcohol or drug abuse patient.[facility] CenterIn the event this information is protected by the Federal Confidentiality of Alcohol and Drug Abuse Patient Records regulations: The Federal rules restrict any use of the information to criminally investigate or prosecute any alcohol or drug abuse patient.[facility] CenterIn the event this information is protected by the Federal Confidentiality of Alcohol and Drug Abuse Patient Records regulations: The Federal rules restrict any use of the information to criminally investigate or prosecute any alcohol or drug abuse patient.[facility] CenterIn the event this information is protected by the Federal Confidentiality of Alcohol and Drug Abuse Patient Records regulations: The Federal rules restrict any use of the information to criminally investigate or prosecute any alcohol or drug abuse patient.[facility] CenterIn the event this information is protected by the Federal Confidentiality of Alcohol and Drug Abuse Patient Records regulations: The Federal rules restrict any use of the information to criminally investigate or prosecute any alcohol or drug abuse patient.[facility] CenterIn the event this information is protected by the Federal Confidentiality of Alcohol and Drug Abuse Patient Records regulations: The Federal rules restrict any use of the information to criminally investigate or prosecute any alcohol or drug abuse patient.[facility] CenterIn the event this information is protected by the Federal Confidentiality of Alcohol and Drug Abuse Patient Records regulations: The Federal rules restrict any use of the information to criminally investigate or prosecute any alcohol or drug abuse patient.[facility] CenterIn the event this information is protected by the Federal Confidentiality of Alcohol and Drug Abuse Patient Records regulations: The Federal rules restrict any use of the information to criminally investigate or prosecute any alcohol or drug abuse patient.[facility] CenterIn the event this information is protected by the Federal Confidentiality of Alcohol and Drug Abuse Patient Records regulations: The Federal rules restrict any use of the information to criminally investigate or prosecute any alcohol or drug abuse patient.[facility] CenterIn the event this information is protected by the Federal Confidentiality of Alcohol and Drug Abuse Patient Records regulations: The Federal rules restrict any use of the information to criminally investigate or prosecute any alcohol or drug abuse patient.[facility] CenterIn the event this information is protected by the Federal Confidentiality of Alcohol and Drug Abuse Patient Records regulations: The Federal rules restrict any use of the information to criminally investigate or prosecute any alcohol or drug abuse patient.[facility] CenterIn the event this information is protected by the Federal Confidentiality of Alcohol and Drug Abuse Patient Records regulations: The Federal rules restrict any use of the information to criminally investigate or prosecute any alcohol or drug abuse patient.[facility] CenterIn the event this information is protected by the Federal Confidentiality of Alcohol and Drug Abuse Patient Records regulations: The Federal rules restrict any use of the information to criminally investigate or prosecute any alcohol or drug abuse patient.[facility] CenterIn the event this information is protected by the Federal Confidentiality of Alcohol and Drug Abuse Patient Records regulations: The Federal rules restrict any use of the information to criminally investigate or prosecute any alcohol or drug abuse patient.[facility] CenterIn the event this information is protected by the Federal Confidentiality of Alcohol and Drug Abuse Patient Records regulations: The Federal rules restrict any use of the information to criminally investigate or prosecute any alcohol or drug abuse patient.[facility] CenterIn the event this information is protected by the Federal Confidentiality of Alcohol and Drug Abuse Patient Records regulations: The Federal rules restrict any use of the information to criminally investigate or prosecute any alcohol or drug abuse patient.[facility] CenterIn the event this information is protected by the Federal Confidentiality of Alcohol and Drug Abuse Patient Records regulations: The Federal rules restrict any use of the information to criminally investigate or prosecute any alcohol or drug abuse patient.[facility] CenterIn the event this information is protected by the Federal Confidentiality of Alcohol and Drug Abuse Patient Records regulations: The Federal rules restrict any use of the information to criminally investigate or prosecute any alcohol or drug abuse patient.[facility] CenterIn the event this information is protected by the Federal Confidentiality of Alcohol and Drug Abuse Patient Records regulations: The Federal rules restrict any use of the information to criminally investigate or prosecute any alcohol or drug abuse patient.[facility] CenterIn the event this information is protected by the Federal Confidentiality of Alcohol and Drug Abuse Patient Records regulations: The Federal rules restrict any use of the information to criminally investigate or prosecute any alcohol or drug abuse patient.[facility] CenterIn the event this information is protected by the Federal Confidentiality of Alcohol and Drug Abuse Patient Records regulations: The Federal rules restrict any use of the information to criminally investigate or prosecute any alcohol or drug abuse patient.[facility] CenterIn the event this information is protected by the Federal Confidentiality of Alcohol and Drug Abuse Patient Records regulations: The Federal rules restrict any use of the information to criminally investigate or prosecute any alcohol or drug abuse patient.[facility] CenterIn the event this information is protected by the Federal Confidentiality of Alcohol and Drug Abuse Patient Records regulations: The Federal rules restrict any use of the information to criminally investigate or prosecute any alcohol or drug abuse patient.[facility] CenterIn the event this information is protected by the Federal Confidentiality of Alcohol and Drug Abuse Patient Records regulations: The Federal rules restrict any use of the information to criminally investigate or prosecute any alcohol or drug abuse patient.[facility] CenterIn the event this information is protected by the Federal Confidentiality of Alcohol and Drug Abuse Patient Records regulations: The Federal rules restrict any use of the information to criminally investigate or prosecute any alcohol or drug abuse patient.[facility] CenterIn the event this information is protected by the Federal Confidentiality of Alcohol and Drug Abuse Patient Records regulations: The Federal rules restrict any use of the information to criminally investigate or prosecute any alcohol or drug abuse patient.[facility] CenterIn the event this information is protected by the Federal Confidentiality of Alcohol and Drug Abuse Patient Records regulations: The Federal rules restrict any use of the information to criminally investigate or prosecute any alcohol or drug abuse patient.[facility] CenterIn the event this information is protected by the Federal Confidentiality of Alcohol and Drug Abuse Patient Records regulations: The Federal rules restrict any use of the information to criminally investigate or prosecute any alcohol or drug abuse patient.[facility] CenterIn the event this information is protected by the Federal Confidentiality of Alcohol and Drug Abuse Patient Records regulations: The Federal rules restrict any use of the information to criminally investigate or prosecute any alcohol or drug abuse patient.[facility] CenterIn the event this information is protected by the Federal Confidentiality of Alcohol and Drug Abuse Patient Records regulations: The Federal rules restrict any use of the information to criminally investigate or prosecute any alcohol or drug abuse patient.[facility] CenterIn the event this information is protected by the Federal Confidentiality of Alcohol and Drug Abuse Patient Records regulations: The Federal rules restrict any use of the information to criminally investigate or prosecute any alcohol or drug abuse patient.[facility] CenterIn the event this information is protected by the Federal Confidentiality of Alcohol and Drug Abuse Patient Records regulations: The Federal rules restrict any use of the information to criminally investigate or prosecute any alcohol or drug abuse patient.[facility] CenterIn the event this information is protected by the Federal Confidentiality of Alcohol and Drug Abuse Patient Records regulations: The Federal rules restrict any use of the information to criminally investigate or prosecute any alcohol or drug abuse patient.[facility] CenterIn the event this information is protected by the Federal Confidentiality of Alcohol and Drug Abuse Patient Records regulations: The Federal rules restrict any use of the information to criminally investigate or prosecute any alcohol or drug abuse patient.[facility] CenterIn the event this information is protected by the Federal Confidentiality of Alcohol and Drug Abuse Patient Records regulations: The Federal rules restrict any use of the information to criminally investigate or prosecute any alcohol or drug abuse patient.[facility] CenterIn the event this information is protected by the Federal Confidentiality of Alcohol and Drug Abuse Patient Records regulations: The Federal rules restrict any use of the information to criminally investigate or prosecute any alcohol or drug abuse patient.[facility] CenterIn the event this information is protected by the Federal Confidentiality of Alcohol and Drug Abuse Patient Records regulations: The Federal rules restrict any use of the information to criminally investigate or prosecute any alcohol or drug abuse patient.[facility] CenterIn the event this information is protected by the Federal Confidentiality of Alcohol and Drug Abuse Patient Records regulations: The Federal rules restrict any use of the information to criminally investigate or prosecute any alcohol or drug abuse patient.[facility] CenterIn the event this information is protected by the Federal Confidentiality of Alcohol and Drug Abuse Patient Records regulations: The Federal rules restrict any use of the information to criminally investigate or prosecute any alcohol or drug abuse patient.[facility] CenterIn the event this information is protected by the Federal Confidentiality of Alcohol and Drug Abuse Patient Records regulations: The Federal rules restrict any use of the information to criminally investigate or prosecute any alcohol or drug abuse patient.[facility] CenterIn the event this information is protected by the Federal Confidentiality of Alcohol and Drug Abuse Patient Records regulations: The Federal rules restrict any use of the information to criminally investigate or prosecute any alcohol or drug abuse patient.[facility] CenterIn the event this information is protected by the Federal Confidentiality of Alcohol and Drug Abuse Patient Records regulations: The Federal rules restrict any use of the information to criminally investigate or prosecute any alcohol or drug abuse patient.[facility] CenterIn the event this information is protected by the Federal Confidentiality of Alcohol and Drug Abuse Patient Records regulations: The Federal rules restrict any use of the information to criminally investigate or prosecute any alcohol or drug abuse patient.[facility] CenterIn the event this information is protected by the Federal Confidentiality of Alcohol and Drug Abuse Patient Records regulations: The Federal rules restrict any use of the information to criminally investigate or prosecute any alcohol or drug abuse patient.[facility] CenterIn the event this information is protected by the Federal Confidentiality of Alcohol and Drug Abuse Patient Records regulations: The Federal rules restrict any use of the information to criminally investigate or prosecute any alcohol or drug abuse patient.[facility] CenterIn the event this information is protected by the Federal Confidentiality of Alcohol and Drug Abuse Patient Records regulations: The Federal rules restrict any use of the information to criminally investigate or prosecute any alcohol or drug abuse patient.[facility] CenterIn the event this information is protected by the Federal Confidentiality of Alcohol and Drug Abuse Patient Records regulations: The Federal rules restrict any use of the information to criminally investigate or prosecute any alcohol or drug abuse patient.[facility] CenterIn the event this information is protected by the Federal Confidentiality of Alcohol and Drug Abuse Patient Records regulations: The Federal rules restrict any use of the information to criminally investigate or prosecute any alcohol or drug abuse patient.[facility] CenterIn the event this information is protected by the Federal Confidentiality of Alcohol and Drug Abuse Patient Records regulations: The Federal rules restrict any use of the information to criminally investigate or prosecute any alcohol or drug abuse patient.[facility] CenterIn the event this information is protected by the Federal Confidentiality of Alcohol and Drug Abuse Patient Records regulations: The Federal rules restrict any use of the information to criminally investigate or prosecute any alcohol or drug abuse patient.[facility] CenterIn the event this information is protected by the Federal Confidentiality of Alcohol and Drug Abuse Patient Records regulations: The Federal rules restrict any use of the information to criminally investigate or prosecute any alcohol or drug abuse patient.[facility] CenterIn the event this information is protected by the Federal Confidentiality of Alcohol and Drug Abuse Patient Records regulations: The Federal rules restrict any use of the information to criminally investigate or prosecute any alcohol or drug abuse patient.[facility] CenterIn the event this information is protected by the Federal Confidentiality of Alcohol and Drug Abuse Patient Records regulations: The Federal rules restrict any use of the information to criminally investigate or prosecute any alcohol or drug abuse patient.[facility] CenterIn the event this information is protected by the Federal Confidentiality of Alcohol and Drug Abuse Patient Records regulations: The Federal rules restrict any use of the information to criminally investigate or prosecute any alcohol or drug abuse patient.[facility] CenterIn the event this information is protected by the Federal Confidentiality of Alcohol and Drug Abuse Patient Records regulations: The Federal rules restrict any use of the information to criminally investigate or prosecute any alcohol or drug abuse patient.[facility] CenterIn the event this information is protected by the Federal Confidentiality of Alcohol and Drug Abuse Patient Records regulations: The Federal rules restrict any use of the information to criminally investigate or prosecute any alcohol or drug abuse patient.[facility] CenterIn the event this information is protected by the Federal Confidentiality of Alcohol and Drug Abuse Patient Records regulations: The Federal rules restrict any use of the information to criminally investigate or prosecute any alcohol or drug abuse patient.[facility] CenterIn the event this information is protected by the Federal Confidentiality of Alcohol and Drug Abuse Patient Records regulations: The Federal rules restrict any use of the information to criminally investigate or prosecute any alcohol or drug abuse patient.[facility] CenterIn the event this information is protected by the Federal Confidentiality of Alcohol and Drug Abuse Patient Records regulations: The Federal rules restrict any use of the information to criminally investigate or prosecute any alcohol or drug abuse patient.[facility] CenterIn the event this information is protected by the Federal Confidentiality of Alcohol and Drug Abuse Patient Records regulations: The Federal rules restrict any use of the information to criminally investigate or prosecute any alcohol or drug abuse patient.[facility] CenterIn the event this information is protected by the Federal Confidentiality of Alcohol and Drug Abuse Patient Records regulations: The Federal rules restrict any use of the information to criminally investigate or prosecute any alcohol or drug abuse patient.[facility] CenterIn the event this information is protected by the Federal Confidentiality of Alcohol and Drug Abuse Patient Records regulations: The Federal rules restrict any use of the information to criminally investigate or prosecute any alcohol or drug abuse patient.[facility] CenterIn the event this information is protected by the Federal Confidentiality of Alcohol and Drug Abuse Patient Records regulations: The Federal rules restrict any use of the information to criminally investigate or prosecute any alcohol or drug abuse patient.[facility] CenterIn the event this information is protected by the Federal Confidentiality of Alcohol and Drug Abuse Patient Records regulations: The Federal rules restrict any use of the information to criminally investigate or prosecute any alcohol or drug abuse patient.[facility] CenterIn the event this information is protected by the Federal Confidentiality of Alcohol and Drug Abuse Patient Records regulations: The Federal rules restrict any use of the information to criminally investigate or prosecute any alcohol or drug abuse patient.[facility] Care Teams (unrecognized sec tion and content) Fur Dressing Supervisor Relationship Specialty Start Date End Date Tino Blake PCP - General Family Practice 12/08/16 Fur Dressing Supervisor Relationship Specialty Start Date End Date Tino Blake PCP - General Family Practice 12/08/16 Fur Dressing Supervisor Relationship Specialty Start Date End Date Tino Blake PCP - General Family Practice 12/08/16 Fur Dressing Supervisor Relationship Specialty Start Date End Date Tino Blake PCP - General Family Practice 12/08/16 Fur Dressing Supervisor Relationship Specialty Start Date End Date Tino Blake PCP - General Family Practice 12/08/16 Fur Dressing Supervisor Relationship Specialty Start Date End Date Tino Blake PCP - General Family Practice 12/08/16 Fur Dressing Supervisor Relationship Specialty Start Date End Date Tino Blake PCP - General Family Practice 12/08/16 Fur Dressing Supervisor Relationship Specialty Start Date End Date Tino Blake PCP - General Family Practice 12/08/16 Fur Dressing Supervisor Relationship Specialty Start Date End Date Tino Blake PCP - General Family Practice 12/08/16 Fur Dressing Supervisor Relationship Specialty Start Date End Date Tino Blake PCP - General Family Practice 12/08/16 Fur Dressing Supervisor Relationship Specialty Start Date End Date Tino Blake PCP - General Family Medicine 12/08/16 Fur Dressing Supervisor Relationship Specialty Start Date End Date Tino Blake PCP - General Family Medicine 12/08/16 Fur Dressing Supervisor Relationship Specialty Start Date End Date Tino Blake PCP - General Family Medicine 12/08/16 Fur Dressing Supervisor Relationship Specialty Start Date End Date Tino Blake PCP - General Family Medicine 12/08/16 Fur Dressing Supervisor Relationship Specialty Start Date End Date Tino Blake PCP - General Family Medicine 12/08/16 Fur Dressing Supervisor Relationship Specialty Start Date End Date Tino Blake PCP - General Family Medicine 12/08/16 Fur Dressing Supervisor Relationship Specialty Start Date End Date Tino Blake PCP - General Family Medicine 12/08/16 Fur Dressing Supervisor Relationship Specialty Start Date End Date Tino Blake PCP - General Family Medicine 12/08/16 Fur Dressing Supervisor Relationship Specialty Start Date End Date Tino Blake PCP - General Family Medicine 12/08/16 Fur Dressing Supervisor Relationship Specialty Start Date End Date Tino Blake PCP - General Family Medicine 12/08/16 Fur Dressing Supervisor Relationship Specialty Start Date End Date Tino Blake PCP - General Family Medicine 12/08/16 Fur Dressing Supervisor Relationship Specialty Start Date End Date Tino Blake PCP - General Family Medicine 12/08/16 Fur Dressing Supervisor Relationship Specialty Start Date End Date Tino Blake PCP - General Family Medicine 12/08/16 Fur Dressing Supervisor Relationship Specialty Start Date End Date Tino Blake PCP - General Family Medicine 12/08/16 Fur Dressing Supervisor Relationship Specialty Start Date End Date Tino Blake PCP - General Family Medicine 12/08/16 Fur Dressing Supervisor Relationship Specialty Start Date End Date Tino Blake PCP - General Family Medicine 12/08/16 Fur Dressing Supervisor Relationship Specialty Start Date End Date Tino Blake PCP - General Family Medicine 12/08/16 Fur Dressing Supervisor Relationship Specialty Start Date End Date Tino Blake PCP - General Family Medicine 12/08/16 Fur Dressing Supervisor Relationship Specialty Start Date End Date Tino Blake PCP - General Family Medicine 12/08/16 Fur Dressing Supervisor Relationship Specialty Start Date End Date Tino Blake PCP - General Family Medicine 12/08/16 Fur Dressing Supervisor Relationship Specialty Start Date End Date Tino Blake PCP - General Family Medicine 12/08/16 Fur Dressing Supervisor Relationship Specialty Start Date End Date Tino Blake PCP - General Family Medicine 12/08/16 Fur Dressing Supervisor Relationship Specialty Start Date End Date Tino Blake PCP - General Family Medicine 12/08/16 Fur Dressing Supervisor Relationship Specialty Start Date End Date Tino Blake PCP - General Family Medicine 12/08/16 Fur Dressing Supervisor Relationship Specialty Start Date End Date Tino Blake PCP - General Family Medicine 12/08/16 Fur Dressing Supervisor Relationship Specialty Start Date End Date Tino Blake PCP - General Family Medicine 12/08/16 Fur Dressing Supervisor Relationship Specialty Start Date End Date Tino Blake PCP - General Family Medicine 12/08/16 Fur Dressing Supervisor Relationship Specialty Start Date End Date Tino Blake PCP - General Family Medicine 12/08/16 Fur Dressing Supervisor Relationship Specialty Start Date End Date Tino Blake MD PCP - General Family Medicine 12/08/16 Fur Dressing Supervisor Relationship Specialty Start Date End Date Tino Blake MD PCP - General Family Medicine 12/08/16 Fur Dressing Supervisor Relationship Specialty Start Date End Date Tino Blake MD PCP - General Family Medicine 12/08/16 Fur Dressing Supervisor Relationship Specialty Start Date End Date Tino Blake MD PCP - General Family Medicine 12/08/16 Fur Dressing Supervisor Relationship Specialty Start Date End Date Tino Blake MD PCP - General Family Medicine 12/08/16 Fur Dressing Supervisor Relationship Specialty Start Date End Date Tino Blake MD PCP - General Family Medicine 12/08/16 Fur Dressing Supervisor Relationship Specialty Start Date End Date Tino Blake MD PCP - General Family Medicine 12/08/16 Fur Dressing Supervisor Relationship Specialty Start Date End Date Tino Blake MD PCP - General Family Medicine 12/08/16 Fur Dressing Supervisor Relationship Specialty Start Date End Date Tino Blake MD PCP - General Family Medicine 12/08/16 Fur Dressing Supervisor Relationship Specialty Start Date End Date Tino Blake MD PCP - General Family Medicine 12/08/16 Fur Dressing Supervisor Relationship Specialty Start Date End Date Tino Blake MD PCP - General Family Medicine 12/08/16 Fur Dressing Supervisor Relationship Specialty Start Date End Date Tino Blake MD PCP - General Family Medicine 12/08/16 Fur Dressing Supervisor Relationship Specialty Start Date End Date Tino Blake MD PCP - General Family Medicine 12/08/16 Fur Dressing Supervisor Relationship Specialty Start Date End Date Tino Blake MD PCP - General Family Medicine 12/08/16 Fur Dressing Supervisor Relationship Specialty Start Date End Date Tino Blake MD PCP - General Family Medicine 12/08/16 Fur Dressing Supervisor Relationship Specialty Start Date End Date Tino Blake MD PCP - General Family Medicine 12/08/16 Fur Dressing Supervisor Relationship Specialty Start Date End Date Tino Blake MD PCP - General Family Medicine 12/08/16 Fur Dressing Supervisor Relationship Specialty Start Date End Date Tino Blake MD PCP - General Family Medicine 12/08/16 Fur Dressing Supervisor Relationship Specialty Start Date End Date Tino Blake MD PCP - General Family Medicine 12/08/16 Fur Dressing Supervisor Relationship Specialty Start Date End Date Tino Blake MD PCP - General Family Medicine 12/08/16 Fur Dressing Supervisor Relationship Specialty Start Date End Date Tino Blake MD PCP - General Family Medicine 12/08/16 Fur Dressing Supervisor Relationship Specialty Start Date End Date Madhu Voss MD [address] [place] [address] PCP - General Family Medicine 04/28/23 Niya Santiago NP [address] [place] [address] Nurse Practitioner Family Medicine 04/28/23 Fur Dressing Supervisor Relationship Specialty Start Date End Date Madhu Voss MD [address] [place] [address] PCP - General Family Medicine 04/28/23 Niya Santiago NP [address] [place] [address] Nurse Practitioner Family Medicine 04/28/23 Fur Dressing Supervisor Relationship Specialty Start Date End Date Madhu Voss MD [address] [place] [address] PCP - General Family Medicine 04/28/23 Niya Santiago NP [address] [place] [address] Nurse Practitioner Family Medicine 04/28/23 Fur Dressing Supervisor Relationship Specialty Start Date End Date Madhu Voss MD [address] [place] [address] PCP - General Family Medicine 04/28/23 Niya Santiago NP [address] [place] [address] Nurse Practitioner Family Medicine 04/28/23 Fur Dressing Supervisor Relationship Specialty Start Date End Date Madhu Voss MD [address] [place] [address] PCP - General Family Medicine 04/28/23 Niya Santiago NP [address] [place] [address] Nurse Practitioner Family Medicine 04/28/23 Fur Dressing Supervisor Relationship Specialty Start Date End Date Madhu Voss MD [address] [place] [address] PCP - General Family Medicine 04/28/23 Niya Santiago NP [address] [place] [address] Nurse Practitioner Family Medicine 04/28/23 Fur Dressing Supervisor Relationship Specialty Start Date End Date Madhu Voss MD [address] [place] [address] PCP - General Family Medicine 04/28/23 Niya Santiago NP [address] [place] [address] Nurse Practitioner Family Medicine 04/28/23 Fur Dressing Supervisor Relationship Specialty Start Date End Date Madhu Voss MD [address] [place] [address] PCP - General Family Medicine 04/28/23 Niya Santiago NP [address] [place] [address] Nurse Practitioner Family Medicine 04/28/23 Fur Dressing Supervisor Relationship Specialty Start Date End Date Niya Santiago CNP [address] [place] [address] PCP - General Family Medicine 03/31/24 Fur Dressing Supervisor Relationship Specialty Start Date End Date Niya Santiago CNP [address] [place] [address] PCP - General Family Medicine 03/31/24 Fur Dressing Supervisor Relationship Specialty Start Date End Date Niya Santiago CNP [address] [place] [address] PCP - General Family Medicine 03/31/24 Fur Dressing Supervisor Relationship Specialty Start Date End Date Madhu Voss MD [address] [place] [address] PCP - General Family Medicine 04/28/23 Niya Santiago NP [address] [place] [address] Nurse Practitioner Family Medicine 04/28/23 Fur Dressing Supervisor Relationship Specialty Start Date End Date Madhu Voss MD [address] [place] [address] PCP - General Family Medicine 04/28/23 Niya Santiago NP [address] [place] [address] Nurse Practitioner Family Medicine 04/28/23 Fur Dressing Supervisor Relationship Specialty Start Date End Date Madhu Voss MD [address] [place] [address] PCP - General Family Medicine 04/28/23 Niya Santiago NP [address] [place] [address] Nurse Practitioner Family Medicine 04/28/23 Fur Dressing Supervisor Relationship Specialty Start Date End Date Niya Santiago CNP [address] [place] [address] PCP - General Family Medicine 03/31/24 Fur Dressing Supervisor Relationship Specialty Start Date End Date Madhu Voss MD [address] [place] [address] PCP - General Family Medicine 04/28/23 Niya Santiago NP [address] [place] [address] Nurse Practitioner Family Medicine 04/28/23 INFORMATION SOURCE (unrecogn ized section and content) DATE CREATED AUTHOR 07/13/2021 [facility] DATE CREATED AUTHOR AUTHOR'S ORGANIZ ATION 07/05/2022 [facility] DATE CREATED AUTHOR AUTHOR'S ORGANIZ ATION 04/28/2024 [facility] DATE CREATED AUTHOR AUTHOR'S ORGANIZ ATION 05/13/2024 [facility] Inactive Administered Medications - up to 3 [...] BE BASED ON THE PRIMARY CLINICAL RECORDS. [employer] [facility]. provides no warranty or guarantee of the accuracy or completeness of information in this document.
--- OUTSIDE RECORDS SUMMARY | 2024-08-24 07:31 | XMS_ITS | Encounter Summary ---
Author Organization [facility] Address [address] [place] [address] Care Team Providers Care Thread Milling Machine Set Up Operator Name Role Phone Shaikh JOSE ROBERTO Gandara Primary Care Provider [phone] Shaikh JOSE ROBERTO Gandara Primary Care Provider [phone] Madhu Voss MD Primary Care Provider [phone] Niya Santiago TRAVERTINE INSTALLER Unavailable [phone] Encounter Details Date Type Department Care Team (Late st Contact Info) Description 03/09/2023 Abstract [facility] [address] [place] [address] Niya Santiago, TRAVERTINE INSTALLER [address] [place] [address] Social History Tobacco Use Types Packs/Day Years Used Date Smoking Tobacco: Every Day Cigarettes 0.5 15 Smokeless Tobacco: Never Tobacco Cessation:Ready to Q uit: Not Asked; Counseling Given: Not Answered Alcohol Use Standard Drinks/Week Comments Never 0 (1 standard drink = 0.6 oz pur e alcohol) PHQ-2 Answer Date Recorded Patient Health Questionnaire-2 Score 0 03/11/2023 Comments Unknown Sex and Gender Information Value Date Recorded Sex Assigned at Not on file Legal Sex Female 8:06 PM EDT Gender Identity Not on file Sexual Orientation Not on file documented as of this encounter Functional Status * Over the past 2 weeks, how often have you been bothered by any of the following problems? Question Answer Date of Assessment Author Little interest or pleasure in doing things Not at all 03/11/2023 3:47 PM EST HUMBARCOLESHARAN Jose Feeling down, depressed, or hopeless Not at all 03/11/2023 3:47 PM BUD FLETCHERCOLE SHARAN A Patient Health Questionnaire -2 Score 0 03/11/2023 3:47 PM BUD FLETCHERCOLE SHARAN Jose documented as of this encounter Plan of Treatment Not on file documented as of this encounter Visit Diagnoses Not on filedocumented in this encounter Care Teams Thread Milling Machine Set Up Operator Relationship Specialty Start Date End Date Shaikh Gandara MD PCP - General Internal Medicine 08/26/22 03/10/23 Shaikh Gandara MD [address] [place] [address] PCP - General Internal Medicine 03/11/23 04/27/23 Madhu Voss MD [address] [place] [address] PCP - General Family Medicine 04/28/23 Niya Santiago NP [address] [place] [address] Nurse Practitioner Family Medicine 04/28/23 documented as of this encounter
--- OUTSIDE RECORDS SUMMARY | 2024-08-24 07:31 | XMS_ITS | Encounter Summary ---
Author Organization [facility] Address [address] [place] [address] Care Team Providers Care Assembler Faucets Name Role Phone Juan Tadeo MD Primary Care Provider Niya Santiago CNP Primary Care Provider [phone] Source Comments In the event this information is protected by the Federal Confidentiality of Alcohol and Drug AbusePatient Records regulations: The Federal rules restrict any use of the information to criminally investigate or prosecute any alcohol or drug abuse patient.[facility] Encounter Details Date Type Department Care Team (Late st Contact Info) Description 07/01/2021 Patient Msg Infusion [address] [place] [address] Provider, [facility] APPOINTMENTS Social History Tobacco Use Types Packs/Day Years [...] ot on file 02/01/2020 Data from: https://www.neighborhoodatlas.medicine.[facility].edu/. Last address used for calculation Not [...] was confirmed or suspected to have Coronavirus/COVID-19? Unable to assess 07/03/2021 11:16 AM EDT documented as of this encounter Miscellaneous Notes * Telephone Encounter - Bailey Turner - 07/02/2021 3:15 PM EDT This is being addressed in another Encounter. Bailey ORTIZ July 02, 2021 3:16 PM * Telephone Encounter - Anusha Plata - 07/02/2021 11:19 AM EDT Patient called back to schedule Renflexis infusions and office visit with James Frank CNP the same day. documented in this encounter Plan of Treatment Not on file documented as of this encounter Visit Diagnoses Not on filedocumented in this encounter Care Teams Assembler Faucets Relationship Specialty Start Date End Date Juan Tadeo MD PCP - General Family Medicine 12/08/16 03/30/24 Niya Santiago SYNCHRO ASSEMBLER [address] [place] [address] PCP - General Family Medicine 03/31/24 documented as of this encounter
--- OUTSIDE RECORDS SUMMARY | 2024-08-24 07:31 | XMS_ITS | Clinical Summary ---
Author Organization [facility] Address [address] [place] [address] Care Team Providers Care President Finance Company Name Role Phone Unavailable Primary Care Provider Unavailabl e Allergies No known active allergies Medications Respiratory Therapy Supplies (NEBULIZER/TUBI NG/MOUTHPIECE) KIT 1 kit by Does not apply route daily as needed (reactive airway disease) 1 kit 1 Active ipratropium-alb uterol (DUONEB) 0.5-2.5 (3) MG/3ML SOLN nebulizer solution Inhale 3 mLs into the lungs every 4 hours 360 mL 1 Active budesonide (PULMICORT) 0.5 MG/2ML nebulizer suspension Take 2 mLs by nebulization 2 times daily 30 ampule 1 Active buprenorphine-n aloxone (SUBOXONE) 8-[address] film [address] 1 Film under the tongue daily. Active Respiratory Therapy Supplies (NEBULIZER/TUBI NG/MOUTHPIECE) KIT 1 kit by Does not apply route daily as needed (pneumonia) 1 kit 1 Active Active Problems Patient Care Coordination No te Formatting of this note migh t be different from the original. signficant rheumatoid issues, left wrist exacerbation, has taken gabapentin in the past Hypertension, chronic, on labetalol [place] department [place] med[place]ide risk assesment form = testing = Ped = Blood type = Rhogam? = Flu shot = TDAP (27-36 wks)= GBS = negative Card - Problem Noted Date Diagnosed Date Threatened miscarriage 12/19/2018 Hypertension affecting in first trimes ter 11/24/2018 History of intravenous drug abuse 11/24/2018 Cyclic citrullinated peptide (CCP) antibody posi tive 12/30/2017 Nicotine dependence, cigarettes, uncomplicated 0 09/10/2017 Pain in left shoulder 11/22/2016 Normal delivery Resolved Problems Problem Noted Date Diagnosed Date Resolved Date Term 07/11/2019 07/13/2019 Family History Medical History Relation Name Comments Diabetes Maternal Aunt Hypertension Maternal Aunt Diabetes Maternal Grandmother Hypertension Maternal Grandmother Other Other No family h/o o varian or breast cancer. Relation Name Status Comments Brother Alive Father Alive Maternal Aunt Maternal Grandfather Maternal Grandmother Mother Other Other Paternal Grandfather Paternal Grandmother Social History Tobacco Use Types Packs/Day Years Used Date Smoking Tobacco: Every Day Cigarettes Smokeless Tobacco: Never Tobacco Cessation:Ready to Q uit: No Comments:patient declines counseling Alcohol Use Standard Drinks/Week Comments Not Currently 0 (1 standard drink = 0.6 oz pur e alcohol) PHQ-2 Answer Date Recorded PHQ-2 Score 0 12/19/2018 Comments No Sex and Gender Information Value Date Recorded Sex Assigned at Not on file Legal Sex Female 1:13 AM EDT Gender Identity Not on file Sexual Orientation Not on file Last Filed Vital Signs Vital Sign Reading Time Taken Comments Blood Pressure 137/81 07/11/2021 9:06 PM EDT Pulse 69 07/11/2021 9:05 PM EDT Temperature 37.2 C (98.9 F) 07/11/2021 9:06 PM EDT Respiratory Rate 15 07/11/2021 9:05 PM EDT Oxygen Saturation 100% 07/11/2021 9:05 PM EDT Inhaled Oxygen Concentration - - Weight 65.8 kg (145 lb) 09/15/2020 5:13 PM EDT Height 160 cm (5' 3 ) 03/15/2020 4:01 PM EST Body Mass Index 25.69 03/15/2020 4:01 PM EST Plan of Treatment Not on file Advance Directives * Full Code (Latest Code Status on File) Date Activated Date Inactivated Comments 07/12/2019 1:54 PM 07/13/2019 3:24 PM * Full Code Date Activated Date Inactivated Comments 07/11/2019 8:21 PM 07/12/2019 1:54 PM * Full Code Date Activated Date Inactivated Comments 07/11/2019 7:48 PM 07/11/2019 7:51 PM
--- OUTSIDE RECORDS SUMMARY | 2024-08-24 07:31 | XMS_ITS | Encounter Summary ---
Author Organization [facility] Address [address] [place], [place] [address] Care Team Providers Care Correction Officer Reformatory Name Role Phone Juan Tadeo MD Primary Care Provider Niya Santiago CNP Primary Care Provider [phone] Source Comments In the event this information is protected by the Federal Confidentiality of Alcohol and Drug AbusePatient Records regulations: The Federal rules restrict any use of the information to criminally investigate or prosecute any alcohol or drug abuse patient.[facility] Encounter Details Date Type Department Care Team (Late st Contact Info) Description 09/01/2023 [facility] M[facility] [address] [facility] [place] [place] [address] Provider, [facility] infusion 09/03/23 Social History Tobacco Use Types Packs/Day Years Used Date Smoking Tobacco: Light Smoker Cigarettes Started: 04/22/2012 Smokeless Tobacco: Never Comments:social smoker not e veryday Alcohol Use Standard Drinks/Week Comments No 0 (1 standard drink = 0.6 oz pur e alcohol) PHQ-2 Answer Date Recorded PHQ-2 score 1 12/30/2017 Area Deprivation Index Answer Date Ankit rded National Score (1-100), lower number is lower [facility] 87 09/17/2022 State Score (1-10), lower number is lower risk 8 09/17/2022 Data from: https://www.neighborhoodatlas.medicine.[facility].edu/. Last address used for calculation [address] [...] on filedocumented in this encounter Care Teams Correction Officer Reformatory Relationship Specialty Start Date End Date Juan Tadeo MD PCP - General Family Medicine 12/08/16 03/30/24 Niya Santiago, CONTRACT ASSISTANT [address] [place] [address] PCP - General Family Medicine 03/31/24 documented as of this encounter
--- OUTSIDE RECORDS SUMMARY | 2024-08-24 07:31 | XMS_ITS | Encounter Summary ---
Author Organization [facility] Address [address] [place] [address] Care Team Providers Care Molder Hand Name Role Phone Juan Tadeo MD Primary Care Provider Niya Santiago CNP Primary Care Provider [phone] Source Comments In the event this information is protected by the Federal Confidentiality of Alcohol and Drug AbusePatient Records regulations: The Federal rules restrict any use of the information to criminally investigate or prosecute any alcohol or drug abuse patient.[facility] Encounter Details Date Type Department Care Team (Late st Contact Info) Description 07/18/2021 Patient Msg Infusion [address] [place] [address] Provider, [facility] Lab Social History Tobacco Use Types Packs/Day Years [...] N ot on file 02/01/2020 Data from: https://www.neighborhoodatlas.medicine.[facility].edu/. Last address used for calculation Not on [...] AM EDT documented as of this encounter Plan of Treatment Not on file documented as of this encounter Visit Diagnoses Not on filedocumented in this encounter Care Teams Molder Hand Relationship Specialty Start Date End Date Juan Tadeo MD PCP - General Family Medicine 12/08/16 03/30/24 Niya Santiago, MOTOR INSTALLER [address] [place] [address] PCP - General Family Medicine 03/31/24 documented as of this encounter
--- OUTSIDE RECORDS SUMMARY | 2024-08-24 07:31 | XMS_ITS | Encounter Summary ---
Author Organization [facility] Address [address] [place] [address] Care Team Providers Care Electric Distribution Checker Name Role Phone Madhu Voss MD Primary Care Provider [phone] Niya Santiago NP Unavailable [phone] Encounter Details Date Type Department Care Team (Late st Contact Info) Description 03/23/2024 Orders Only [facility] [address] [place] [address] Niya Santiago, MARY [address] [place] [address] Social History Tobacco Use Types Packs/Day Years Used Date Smoking Tobacco: Every Day Cigarettes 0.5 15 Smokeless Tobacco: Never Alcohol Use Standard Drinks/Week Comments Never 0 (1 standard drink = 0.6 oz pur e alcohol) PHQ-2 Answer Date Recorded Patient Health Questionnaire-2 Score 0 07/22/2023 Comments Unknown Sex and Gender Information Value Date Recorded Sex Assigned at Not on file Legal Sex Female 8:06 PM EDT Gender Identity Not on file Sexual Orientation Not on file documented as of this encounter Plan of Treatment Not on file documented as of this encounter Procedures Procedure Name Priority Date/Time Associated Diagnosis Comments BI MAMMOGRAM SCREENING TOMOSYNTHESIS BILATERAL Routine 03/23/2024 4:30 PM EST documented in this encounter Results * Bilateral screening mammogram with tomosynthesis (03/23/2024 4:30 PM EST) Anatomical Region Laterality Modality Breast Bilateral Mammography Niya Aichholz DETECTIVE CAPTAIN IMG BI PROCEDURES Final Result documented in this encounter Visit Diagnoses Not on filedocumented in this encounter Care Teams Electric Distribution Checker Relationship Specialty Start Date End Date Madhu Voss MD [address] [place] [address] PCP - General Family Medicine 04/28/23 Niya Santiago NP [address] [place] [address] Nurse Practitioner Family Medicine 04/28/23 documented as of this encounter
[2024-08-24 07:34] VITALS: BP 151/103; PULSE 84; TEMP 36.9; O2SAT 96; BMI 25.7
--- NOTE | 2024-08-24 07:50 | ED_ITS ---
HPI HPI - General Adult General Chief complaint: Dental/Oral Stated complaint: TOOTHACHE AND EARACHE Time Seen by Provider: 08/24/24 07:34 Source: patient Mode of arrival: walk-in Limitations: no limitations History of Present Illness HPI narrative: 39-year-old female presents for toothache. She is complaining of pain to her left upper dentition and her left ear hurts as well. She was supposed to have a tooth extracted but the oral surgeon moved. No fever or difficulty breathing or swallowing. Related Data Home Medications ?Medication ?Instructions ?Recorded ?Confirmed buprenorphine 8 mg-naloxone 2 mg 1 film sublingual Q24 H 04/13/23 05/24/24 sublingual film lisdexamfetamine 50 mg capsule 50 mg PO Q24H 04/13/23 08/24/24 (Vyvanse) Previous Rx's ?Medication ?Instructions ?Recorded ibuprofen 800 mg tablet 800 mg PO Q8H PRN pain #20 t abs 08/24/24 penicillin V potassium 250 mg 250 mg PO QID 10 days #4 0 tabs 08/24/24 tablet Allergies Allergy/AdvReac Type Severity Reaction Status Date / Time No Known Drug Allergies Allergy Verified 08/24/24 07:34 Opioid HPI Opioid Management Most Recent Opioid Data: Last Pain Scale 10 Today, 07:34 Review of Systems ROS Narrative A ten point review of systems is negative except as noted above. PFSH PFSH Social History Smoking status: Never smoker Little interest or pleasure in doing things: not at all Feeling down, depressed, or hopeless: not at all Exam Narrative Exam Narrative: Nurses note and vital signs reviewed and patient is not hypoxic. General: The patient appears uncomfortable. She is in no respiratory distress Skin: Warm, dry, no pallor noted. There is no rash noted. Head: Normocephalic, atraumatic Eye: Normal conjunctiva, no drainage Ears, Nose, Mouth, and Throat: oral mucosa is moist. Nares patent. Dental condition shows caries in the left upper dentition. No gingival swelling or bleeding present. No swelling to the floor of her mouth. No facial swelling or erythema. Cardiovascular: Regular Rate and Rhythm Respiratory: Patient is in no distress, no accessory muscle use, lungs are clear to auscultation, no wheezing, rales or rhonchi Back: non-tender GI: Soft and nontender Musculoskeletal: The patient has no evidence of calf tenderness, no pitting edema, symmetrical pulses noted bilaterally Neurological: A&O, normal speech Psychiatric: Cooperative Constitutional Vital Signs, click to edit/add: Last Vital Signs Temp 98.5 F 08/24/24 07:34 Pulse 84 08/24/24 07:34 Resp 18 08/24/24 07:34 BP 151/103 H 08/24/24 07:34 Pulse Ox 96 08/24/24 07:34 O2 Del Method Room Air 08/24/24 07:34 Course Vital Signs Vital signs: Vital Signs Temperature 98.5 F 08/24/24 07:34 Pulse Rate 84 08/24/24 07:34 Respiratory Rate 18 08/24/24 07:34 Blood Pressure 151/103 H 08/24/24 07:34 Pulse Oximetry 96 08/24/24 07:34 Oxygen Delivery Method Room Air 08/24/24 07:34 Temperature 98.5 F 08/24/24 07:34 Pulse Rate 84 08/24/24 07:34 Respiratory Rate 18 08/24/24 07:34 Blood Pressure 151/103 H 08/24/24 07:34 Pulse Oximetry 96 08/24/24 07:34 Oxygen Delivery Method Room Air 08/24/24 07:34 Medical Decision Making MDM Narrative Medical decision making narrative: The patient was given IM Toradol and prescribed ibuprofen and penicillin. She has been on Suboxone in the past and will avoid narcotics. Treatment diagnosis and follow-up were discussed with the patient. Differential Diagnosis Differential Diagnosis: Toothache, dental caries Discharge Plan Discharge Chief Complaint: Dental/Oral Clinical Impression: Toothache Patient Disposition: Home, Self-Care Time of Disposition Decision: 07:49 Condition: Good Mode of Transportation: Private Vehicle Prescriptions / Home Meds: New penicillin V potassium 250 mg tablet 250 mg PO QID 10 Days Qty: 40 0RF ibuprofen 800 mg tablet 800 mg PO Q8H PRN (Reason: pain) Qty: 20 0RF No Action lisdexamfetamine [Vyvanse] 50 mg capsule 50 mg PO Q24H buprenorphine-naloxone 8-2 mg film 1 film sublingual Q24H Print Language: Sinhala Instructions: Toothache (ED) Additional Instructions: Follow-up with dentistry Referrals: Niya Santiago NP [Primary Care Provider, Family Practice] - 1 week
[2024-08-24] MEDS: KETOROLAC TROMETHAMINE 60 MG/2 ML VIAL IM (07:58)
== END 2024-08-24 08:03 | disposition home or self-care (01) ==
PROVIDERS: Emergency Provider Emergency Medicine; PCP Nurse Practitioner
DX: K08.89 Other specified disorders of teeth and supporting structures (principal)
CPT/HCPCS: 96372; 99284; J1885

== ENCOUNTER 2024-09-24 23:04 | Emergency (ER) | payer MEDICAID, SELFPAY ==
[2024-09-24 23:12] VITALS: BP 144/91; PULSE 101; TEMP 36.8; O2SAT 98; BMI 25.7
--- OUTSIDE RECORDS SUMMARY | 2024-09-24 23:12 | XMS_ITS | CCD ---
Author Organization [facility] CliniSyfl Care Team Providers Care Spice Grinder Name Role Phone Unavailable Primary Care Provider [...] Provider Madhu Voss MD Primary Care Provider Jack JOINTER SUBMARINE CABLE, Niya Unavailable Aicgretel PIGMENT MIXER, Niya Torres Primary Care Provider CRAIG WADE Attending Unavailable TINO BLAKE Primary Care Unavaila ble JACK, NIYA IRLANDA Primary Care Unavailable HAYDEN, TINO DOTY Primary Care Unavaila FARIBA Sweeney Attending Unavailable TINO BLAKE Primary Care Unavaila alena BLAKE, TINO DOTY Primary Care Unavaila ble JACK, NIYA Attending Unavailable AICHHOLZ, NIYA Attending Unavailable AICHHOLZ, NIYA Attending Unavailable AICHHOLZ, NIYA Attending Unavailable AICHHOLZ, NIYA Attending Unavailable Allergies Allergy Classification Reported Allergen(s) Allergy Type Date of Onset Reaction(s) Facility (20 sources) inFLIXimab; Translations: [INFLIXIMAB-AXXQ ] Drug Allergy 10-22-2022 Anaphylaxis [facility] (20 sources) inFLIXimab Drug Allergy 10-22-2022 Anaphylaxis [facility] [...] mg from all sources in 24 hours. [id number] 200 actuat albuterol 0.09 mg/actuat metered dose [...] formoterol fumarate 0.0045 mg/actuat metered dose inhaler (8 sources) Corticosteroid, beta2-Adrenergic Agonist Start: 07-24-2024 End: 08-23-2024 take 2 puff(s) by inhalation in the morning budesonide-formoterol (Symbicort) 80-4.5 MCG/ACT inhaler Indications: Wheezing Inhale 2 puffs in the morning and 2 puffs before bedtime. Rinse mouth after use. 1 each 3 07/24/2024 Active Start: 04-26-2024 End: 07-24-2024 take 2 [...] 12:00am busPIRone hydrochloride 5 mg oral tablet (4 sources) Start: 2024 End: 2024 take 1 tablet by mouth every eight hours as needed busPIRone (Buspar) 5 MG tablet Take 5 mg by mouth every 8 (eight) hours if needed (anxiety) 07/10/2024 08/30/2024 Discontinued (Therapy completed) 1 ml carboprost 0.25 mg/ml injection (1 [...] Comment on above: Take 2 capsules by [facility] once daily. clobetasol propionate 0.5 mg/ml topical [...] 20 mg/ml oral suspension (1 source) Uncompetitive A-bosoui-C-aspartate Receptor Antagonist, Sigma-1 Agonist Start: 2020 End: [...] at 1354 Do not crush or break. gabapentin 600 mg oral tablet (20 sources) Anti-epileptic Agent Start: 2022 End: 2024 take 1 tablet by mouth in the morning, then take 1 tablet by mouth in the evening, then take 1 tablet by mouth at bedtime gabapentin (Neurontin) 600 MG tablet Indications: Anxiety , Median nerve neuritis, left Take 1 tablet (600 mg) by mouth in the morning and 1 tablet (600 mg) in the evening and 1 tablet (600 mg) before bedtime. 90 tablet 2 08/30/2024 09/29/2024 Active Comment on above: TAKE 1 TABLET BY JUDE TH 3 TIMES A DAY FOR ANXIETY ibuprofen 800 mg oral tablet (20 sources) Nonsteroidal Anti-inflammatory Drug Start: 2024 End: 2024 take 1 tablet by mouth every eight hours at mealtime for pain ibuprofen 800 MG tablet Indications: Median nerve neuritis, left Take 1 tablet (800 mg) by mouth every 8 (eight) hours if needed for moderate pain for up to 15 days Take with food 45 tablet 08/30/2024 09/14/2024 Active Start: 07-12-2019 take 800 mg by mouth every eight [...] Skin, nipple discomfort, Starting 07/12/19 at 1354, lisdexamfetamine dimesylate 50 mg oral capsule (20 sources) Central Nervous System Stimulant Start: 07-02-2023 End: 11-28-2024 lisdexamfetamine (Vyvanse) 50 MG capsule Indications: ADHD (attention deficit hyperactivity disorder), combined type Take 1 capsule (50 mg) by mouth in the morning. Do not start before October 29, 2024. 30 capsule 10/29/2024 11/28/2024 Active Start: 01-11-2023 End: 05-26-2023 take 1 capsule by mouth once VYVANSE 50 mg capsule Vinicio e 1 capsule by mouth every afternoon. 0 01/11/2023 05/26/2023 Discontinued Start: 10-08-2022 End: 01-20-2023 take 1 capsule by mouth once VYVANSE 40 mg capsule Vinicio e 1 capsule by mouth every afternoon. 0 10/08/2022 01/20/2023 Discontinued Comment on above: Take 1 capsule by [facility] every afternoon. Miconazole (1 source) Azole Antifungal [...] twice daily as needed. Take by mouth. naloxone hydrochloride 40 mg/ml nasal spray (2 sources) Opioid Antagonist Start: 08-29-19 naloxone (Narcan) 4 mg/0.1 mL nasal spray 08/28/2024 Active ondansetron 4 mg disintegrating oral tablet (20 sources) Serotonin-3 Receptor Antagonist Start: 12-17-19 End: 10-31-19 24 take 1 tablet by mouth every eight [...] days 10 capsule 0 04/04/2019 04/09/2019 Active penicillin v potassium 250 mg oral tablet (3 sources) Start: 5 penicillin V (Veetid) 250 MG tablet Take 250 mg by mouth in the morning and 250 mg at noon and 250 mg in the evening and 250 mg before bedtime. 08/24/2024 Active predniSONE 20 mg oral tablet (20 sources) Start: 5 End: 5 take 1 tablet by mouth in the [...] Comment on above: Take 1 tablet by [facility] once daily. With breakfast for 2 weeks . No other nsaids. Take 2 tablets by mo [facility] once daily for 14 days, THEN 1 tablet once daily for 14 days. With breakfast. Then stop. No other nsaids.. Take 4 tablets by mo [facility] once daily for 7 days, THEN 3 tablets once daily for 7 days, THEN 2 tablets once daily for 7 days, THEN 1 tablet once daily for 7 days. With breakfast. No other nsaids. Take 2 tablets by [facility] once daily for 5 days. Respiratory [...] 0.9 ml tocilizumab 180 mg/ml prefilled syringe (12 sources) Interleukin-6 Receptor Antagonist Start: 03-31-2024 tocilizumab [...] and Norepinephrine Reuptake Inhibitor Start: 05-03-2023 End: 09-29-2024 take 1 capsule by mouth once daily venlafaxine XR (Effexor XR) 150 MG 24 hr capsule Indications: Anxiety Take 1 capsule (150 mg) by mouth Daily 30 capsule 5 08/30/2024 09/29/2024 Active Start: 10-04-2022 End: 05-26-2023 take 1 [...] TOTAL OF 8 WEEKS, WITH A MEAL leflunomide 10 mg oral tablet (20 sources) Antirheumatic Agent Start: End: take 1 tablet by mouth once daily [...] sources) Taking high risk medication; Translations: [Other intermodal dispatcher (current) drug therapy] Episodic Other connective tissue disease (5 sources) Synovitis; Translations: [Synovitis and tenosynovitis, unspecified] 10-22-2022 Episodic Other connective tissue disease (1 source) Pain in right foot; Translations: [Pain in right foot] 01-20-2023 Episodic Other ear and sense organ disorders (20 sources) Hearing loss in left ear; Translations: [Unspecified hearing loss, left ear] Onset: 4 05-03-2023 Chronic Other inflammatory condition of skin (20 sources) Psoriasis; Translations: [Psoriasis, unspecified] Onset: 4 03-11-2023 Chronic Other nervous system disorders (20 sources) Carpal tunnel syndrome; Translations: [Carpal tunnel syndrome, unspecified upper limb] Onset: 4 05-03-2023 Chronic Other nervous system disorders (4 sources) Median nerve neuritis; Translations: [Other lesions of median nerve, left upper limb] Onset: 5 08-30-2024 Chronic Other nervous system disorders (1 source) [...] 10-21-2023 Episodic Other aftercare (1 source) Other intermodal dispatcher (current) drug therapy; Translations: [OTH [facility] CURRENT DRUG THERAPY] Onset: 10-08-2021 Episodic Other [...] conditions (not mental disorders or infectious disease) (16 sources) Other specified abnormal findings of blood [...] Translations: [COUGH, UNSPECIFIED] Onset: 08-15-2021 Viral infection (20 sources) Human papilloma virus infection; Translations: [Papillomavirus as the cause of diseases classified elsewhere] Onset: 05-03-2023 05-03-2023 Episodic Results Test Name Value Interpretation Reference Range Facility [facility] 05-10-2024 CNPN Telephone (MARK) ANY LUDWIG ([id number]) 1985 F Date Time Provider Department 05/10/24 CRAIG WADE During your visit today, we recorded the following information about you: Prema Santiago 05/10/2024 4:05 PM Signed Any is calling Craig Wade MD today to request her lab orders be faxed over to [facility] at Patient has been identified by name and birthdate. Duration of symptoms: N/A Person calling: self Call patient at: at home [phone] (home) [phone] (cell) Was an appointment scheduled: No Closing statement: Results or non-symptom based questions: Thank you for calling [facility], your call will be returned within the next business day. Craig Marmolejo MD 05/10/2024 4:27 PM Signed Labs were ordered in 03/2024. Thank you Shaheen Byrd MA 05/11/2024 7:12 AM Addendum [facility] call to [facility] for lab fax([phone]) and orders faxed as requested. Allergies As [...] Encounter Status:Closed by SHAHEEN BYRD on 05/11/24 [facility] CNOVon 03-31-2024 CNOV Office Visit (MARK ) ANY LUDWIG ([id number]) 1985 F Date Time Provider Department 03/31/24 1:40 PM CRAIG WADE During your visit today, we recorded the following information about you: Pulse Blood pressure Weight Height 77/minute 115/70 73.7 kg 1.6 m Craig Wade MD 03/31/2024 3:23 PM Signed [facility] Date of Service: 03/31/2024 Patient: Any Ludwig Medical Record: [id number] Primary Care Physician: Tino Blake MD, MD [...] in 2012 by primary care physician in [place] however had not seen slasher machine operator until 2018. She had multiple joint [...] her prior authorization had . Medications Xeljanz 2018 for 30 days Leflunomide 20 mg daily 12/2017, held during in 2021 then resumed 10 mg daily 10/2021 having another , stopped 11/2022 due to liver enzyme elevation Infliximab infusion 07/2021-02/2022- adverse reaction, chest pressure Hydroxychloroquine deferred due to low G6PD Methotrexate prior to seeing slasher machine operator in 2017 did not help Actemra [...] Current Outp (more content not included)... Normal [facility] MM TOMOSYNTHESIS SCREENING B Ion 03-23-2024 [place] [address] Mammography Report Signed Patient: ANY LUDWIG MR#: [id number] : 1985 Acct:[id number] Age/Sex: 39 / F ADM Date: 03/23/24 Loc: MAMMO Attending Dr: Niya Santiago NP Ordering Physician: Niya Santiago NP Results: Date of Service: 03/23/24 Follow Up: Procedure(s): MM tomosynthesis screening BI Accession Number(s): [id number] cc: Niya Santiago NP Patient Name: ANY LUDWIG MR#: [id number] : 1985 Exam Date: 03/23/2024 Ordering Doctor: ANTHONY Santiago CNP RADIOLOGY REPORT PROCEDURE: MM TOMOSYNTHESIS SCREENING BI COMPARISON: None. INDICATIONS: Screening Calculator Name NCI Breast Cancer Risk Assessment Tool 5 Year Breast Cancer Risk 0.40% Lifetime Breast Cancer Risk 7.30% Personal Breast Cancer No Personal Ovarian Cancer No Treatments None Family Cancers None LOCATION: [facility] BREAST COMPOSITION: The breasts are heterogeneously [...] Signed By: 03/23/24 1626 DD/ 1624 TD/TT: [place] Reporter: [facility] Radiology, Radiologist, MD - 03/23/2024 [place] [address] Mammography Report Signed Patient: ANY LUDWIG MR#: [id number] : 1985 Acct:[id number] Age/Sex: 39 / F ADM Date: 03/23/24 Loc: MAMMO Attending Dr: Niya Santiago NP Ordering Physician: Niya Santiago NP Results: Date of Service: 03/23/24 Follow Up: Procedure(s): MM tomosynthesis screening BI Accession Number(s): [id number] cc: Niya Santiago NP Patient Name: ANY LUDWIG MR#: [id number] : 1985 Exam Date: 03/23/2024 Ordering Doctor: ANTHONY Santiago CNP RADIOLOGY REPORT PROCEDURE: MM TOMOSYNTHESIS SCREENING BI COMPARISON: None. INDICATIONS: Screening Calculator Name NCI Breast Cancer Risk Assessment Tool 5 Year Breast Cancer Risk 0.40% Lifetime Breast Cancer Risk 7.30% Personal Breast Cancer No Personal Ovarian Cancer No Treatments None Family Cancers None LOCATION: [facility] BREAST COMPOSITION: The breasts are heterogeneously [...] M.D. Signed By: 03/23/241625 DD/ 23 TD/TT: [place] Reporter: [facility] Radiology Study observation (narrative) [facility] MM TOMOSYNTHESIS SCREENING B IOrdered By: Radiologist Radiology on 03-23-2024 [facility] Work Phone: IGP,APTIMA HPV,AGE GDLNon AGE GDLN ACOG TESTING Note . [facility] Comment on above: TESTS RESULT FLAG UN ITS REF RANGE LAB Clinician Provided Cytology Information Source.............Cervix;Endocervix No. of containers..01 ThinPrep Vial Age Algo ACOG Valentine... FLAG LEGEND: L-Low Normal,H-High Normal,LL-Alert Low,HH-Alert High <-Panic Low,>-Panic High,A-Abnormal,AA-Critical Abnormal Performed at: 01 =G [address] [address] Francisca Stuart MD, HPV APTIMA Negative Negative [facility] Comment on above: This nucleic acid am plification test detects fourteen high- risk HPV types (16,18,31,33,35,39,45,51,52,56,58,59,66,68) without differentiation. Performed at: =G - [facility] [address] [place], [place] [id number] [place] Worker Helper: Francisca Stuart MD, Phone: [phone] Performed at: [facility] [address] [place], [place] [id number] [place] Worker Helper: Farshad Cruz MD, Phone: [phone] IGP, APTIMA HPV, RFX 16/18,45 Note . [facility] Comment on above: TESTS RESULT FLAG UN ITS REF RANGE LAB DIAGNOSIS: 02 NEGATIVE FOR INTRAEPITHELIAL LESION OR MALIGNANCY. THIS SPECIMEN WAS RESCREENED PART OF OUR DIETITIAN CONSULTANT PROGRAM. Specimen adequacy: 02 Satisfactory for evaluation. No endocervical component is identified. Performed by: 02 Aicha Hess, Coding Compliance Manager (ASC) QC reviewed by: 02 Joshua Ornelas, Coding Compliance Manager (ASCP) . 02 Note: Note 03 The Pap [...] High,A-Abnormal,AA-Critical Abnormal Performed at: 02 [facility] [place] [address] [address] [place] [address] Farshad Cruz MD, 03 WB [facility] [address] [address] Francisca Stuart MD, BROOM-ALONE [facility] ([id number]) 1985 F Date Time Provider Department 08/16/23 [...] Date Reviewed: 06/07/2023 Reviewed by: Fariba Hill, MANAGED CARE PROVIDER.PIGMENT MIXER - Fully Assessed Prescriptions as of 08/17/2023 [...] Encounter Status:Closed by DEVI WAGNER on 08/17/23 [facility] Mike 06-28-2023 CNCKyra Letter Text [facility] Kylah 06-25-2023 SUNITA Telephone ([place]) ANY LUDWIG ([id number]) 1985 F Date Time Provider Department 06/25/23 FARIBA HILL During your visit today, we recorded the following information about you: Sergio Yessy Ortiz 06/25/2023 10:16 AM Signed Called and LMOM for patient to call the office back so we can get her rescheduled from her appointment and Infusion on 06/23/2023 that she cancel. Please warm transfer to [facility] Allergies As of Date: 06/25/2023 Noted Allergy Reaction AVSOLA (INFLIXIMAB-AXXQ) 10/22/2022 10 - Anaphylaxis Comments: Adverse reaction, chest tightness, shortness of breath and trouble breathing Date Reviewed: 06/07/2023 Reviewed by: Fariba Hill, MANAGED CARE PROVIDER.PIGMENT MIXER - Fully Assessed Prescriptions as of 06/25/2023 [...] Encounter Status:Closed by YESSY GALARZA on 06/25/23 [facility] Kylah [facility]28-2023 [facility] ([id number]) 1985 F Date Time Provider Department 05/28/23 [...] Status:Closed by KORIN PUGA on 05/28/23 Normal [facility] 25(OH)D3 SerPl-mCncon 2023 25-hydroxyvitamin D3 [Mass/Vol] 29.2 ng/mL Low 31.0-80.0 [facility] Comment on above: Order Comment: Speci men Type: BLOOD SPECIMENOrdering Facility: [facility] Address: [address] [place] [address] Performed By: #### 1 989-3 ####[facility] LABCLIA [id number] [place] [address] [place] ALT SerPl-cCncon 05-26-2023 ALT [Catalytic activity/Vol] 17 U/L Normal 7-38 [facility] Comment on above: Order Comment: Speci men Type: BLOOD SPECIMENOrdering Facility: [facility] Address: [address] [place] [address] Performed By: #### 1 742-6, 1919-09, CRET1, 1987-06 ####[facility] LABCLIA [id number] [place] [address] [place] ALT/SGPTon 05-26-2023 ALT [Catalytic activity/Vol] 17 U/L 7 - 38 U/L [facility] AST SerPl-cCncon 05-26-2023 AST [Catalytic activity/Vol] 21 U/L Normal 13-35 [facility] Comment on above: Order Comment: Speci men Type: BLOOD SPECIMENOrdering Facility: [facility] Address: [address] [place] [address] Performed By: #### 1 742-6, 1919-09, CRET1, 1987-06 ####[facility] LABCLIA [id number] [place] [address] [place] AST/SGOT BLDon 05-26-2023 AST [Catalytic activity/Vol] 21 U/L 13 - 35 U/L [facility] C-REACTIVE PROTEIN (CRP)on 0 05-26-2023 CRP [Mass/Vol] <0.9 mg/dL [facility] CBC W Auto Differential pane l (Bld)on 05-26-2023 Basophils (Bld) [#/Vol] 0.04 10*3/uL <0.11 k/uL [facility] Basophils/100 WBC (Bld) 0.7 % [facility] Differential cell count method Nom (Bld) Auto [facility] Eosinophils (Bld) [#/Vol] 0.43 10*3/uL <0.46 k/uL [facility] Eosinophils/100 WBC (Bld) 7.3 % [facility] Erythrocyte distribution width (RBC) [Ratio] 14.0 % 11.5 - 15.0 % [facility] Hematocrit (Bld) [Volume fraction] 34.2 % Low 36.0 - 46.0 % [facility] Hemoglobin (Bld) [Mass/Vol] 11.2 g/dL Low 11.5 - 15.5 g/dL [facility] Immature granulocytes (Bld) [#/Vol] <0.10 k/uL [facility] Immature granulocytes/100 WBC (Bld) 0.2 % [facility] Lymphocytes (Bld) [#/Vol] 3.83 10*3/uL 1.00 - 4.00 k/uL [facility] Lymphocytes/100 WBC (Bld) 65.2 % [facility] MCH (RBC) [Entitic mass] 27.3 pg 26.0 - 34.0 pg [facility] MCHC (RBC) [Mass/Vol] 32.7 g/dL 30.5 - 36.0 g/dL [facility] MCV (RBC) [Entitic vol] 83.4 fL 80.0 - 100.0 fL [facility] Monocytes (Bld) [#/Vol] 0.36 10*3/uL <0.87 k/uL [facility] Monocytes/100 WBC (Bld) 6.1 % [facility] Neutrophils (Bld) [#/Vol] 1.20 10*3/uL Low 1.45 - 7.50 k/uL [facility] Neutrophils/100 WBC (Bld) 20.5 % [facility] Nucleated RBC (Bld) [#/Vol] <0.01 k/uL [facility] Nucleated RBC/100 WBC (Bld) [Ratio] 0.0 /100 WBC [facility] Platelet mean volume (Bld) [Entitic vol] 11.3 fL 9.0 - 12.7 fL [facility] Platelets (Bld) [#/Vol] 172 10*3/uL 150 - 400 k/uL [facility] RBC (Bld) [#/Vol] 4.10 10*6/uL 3.90 - 5.2 0 m/uL [facility] WBC (Bld) [#/Vol] 5.87 10*3/uL 3.70 - 11. 00 k/uL [facility] Basophils (Bld) [#/Vol] 0.04 10*3/uL Normal <0.11 [facility] Comment on above: Order Comment: Speci men Type: BLOOD SPECIMENOrdering Facility: [facility] Address: [address] [place] [address] Performed By: #### 5 2821-8, 7 ####[facility] LABCLIA [id number] [place] [address] [place] Basophils/100 WBC (Bld) 0.7 % Normal [facility] Comment on above: Order Comment: Speci men Type: BLOOD SPECIMENOrdering Facility: [facility] Address: [address] [place] [address] Performed By: #### 5 7021-8, 7 ####[facility] LABCLIA [id number] [place] [address] [place] Differential cell count method Nom (Bld) Auto Normal [facility] Comment on above: Order Comment: Speci men Type: BLOOD SPECIMENOrdering Facility: [facility] Address: [address] [place] [address] Performed By: #### 5 7021-8, 7 ####[facility] LABCLIA [id number] [place] [address] [place] Eosinophils (Bld) [#/Vol] 0.43 10*3/uL Normal <0.46 [facility] Comment on above: Order Comment: Speci men Type: BLOOD SPECIMENOrdering Facility: [facility] Address: [address] [place] [address] Performed By: #### 5 7021-8, 7 ####[facility] LABCLIA [id number] [place] [address] [place] Eosinophils/100 WBC (Bld) 7.3 % Normal [facility] Comment on above: Order Comment: Speci men Type: BLOOD SPECIMENOrdering Facility: [facility] Address: [address] [place] [address] Performed By: #### 5 7021-8, 4536-08 ####[facility] LABCLIA [id number] [place] [address] [place] Erythrocyte distribution width (RBC) [Ratio] 14.0 % Normal 11.5-15.0 [facility] Comment on above: Order Comment: Speci men Type: BLOOD SPECIMENOrdering Facility: [facility] Address: [address] [place] [address] Performed By: #### 5 7021-8, 4537-7 ####[facility] LABCLIA [id number] [place] [address] [place] Hematocrit (Bld) [Volume fraction] 34.2 % Low 36.0-46.0 [facility] Comment on above: Order Comment: Speci men Type: BLOOD SPECIMENOrdering Facility: [facility] Address: [address] [place] [address] Performed By: #### 5 7021-8, 4537-7 ####[facility] LABCLIA [id number] [place] [address] [place] Hemoglobin (Bld) [Mass/Vol] 11.2 g/dL Low 11.5-15.5 [facility] Comment on above: Order Comment: Speci men Type: BLOOD SPECIMENOrdering Facility: [facility] Address: [address] [place] [address] Performed By: #### 5 7021-8, 4537-7 ####[facility] LABCLIA [id number] [place] [address] [place] Immature granulocytes (Bld) [#/Vol] 10*3/uL Normal <0.10 [facility] Comment on above: Order Comment: Speci men Type: BLOOD SPECIMENOrdering Facility: [facility] Address: [address] [place] [address] Performed By: #### 5 7021-8, 4537-7 ####[facility] LABCLIA [id number] [place] [address] [place] Immature granulocytes/100 WBC (Bld) 0.2 % Normal [facility] Comment on above: Order Comment: Speci men Type: BLOOD SPECIMENOrdering Facility: [facility] Address: [address] [place] [address] Performed By: #### 5 7021-8, 4537-7 ####[facility] LABCLIA [id number] [place] [address] [place] Lymphocytes (Bld) [#/Vol] 3.83 10*3/uL Normal 1.00-4.00 [facility] Comment on above: Order Comment: Speci men Type: BLOOD SPECIMENOrdering Facility: [facility] Address: [address] [place] [address] Performed By: #### 5 7021-8, 4536-7 ####[facility] LABCLIA [id number] [place] [address] [place] Lymphocytes/100 WBC (Bld) 65.2 % Normal [facility] Comment on above: Order Comment: Speci men Type: BLOOD SPECIMENOrdering Facility: [facility] Address: [address] [place] [address] Performed By: #### 5 7021-8, 7-7 ####[facility] LABCLIA [id number] [place] [address] [place] MCH (RBC) [Entitic mass] 27.3 pg Normal 26.0-34.0 [facility] Comment on above: Order Comment: Speci men Type: BLOOD SPECIMENOrdering Facility: [facility] Address: [address] [place] [address] Performed By: #### 5 7021-8, 4537-7 ####[facility] LABCLIA [id number] [place] [address] [place] MCHC (RBC) [Mass/Vol] 32.7 g/dL Normal 30.5-36.0 [facility] Comment on above: Order Comment: Speci men Type: BLOOD SPECIMENOrdering Facility: [facility] Address: [address] [place] [address] Performed By: #### 5 7021-8, 4536-7 ####[facility] [facility] [id number] [place] [address] [place] MCV (RBC) [Entitic vol] 83.4 fL Normal 80.0-100.0 [facility] Comment on above: Order Comment: Speci men Type: BLOOD SPECIMENOrdering Facility: [facility] Address: [address] [place] [address] Performed By: #### 5 7021-8, 7 ####[facility] LABCLIA [id number] [place] [address] [place] Monocytes (Bld) [#/Vol] 0.36 10*3/uL Normal <0.87 [facility] Comment on above: Order Comment: Speci men Type: BLOOD SPECIMENOrdering Facility: [facility] Address: [address] [place] [address] Performed By: #### 5 7021-8, 7 ####[facility] LABCLIA [id number] [place] [address] [place] Monocytes/100 WBC (Bld) 6.1 % Normal [facility] Comment on above: Order Comment: Speci men Type: BLOOD SPECIMENOrdering Facility: [facility] Address: [address] [place] [address] Performed By: #### 5 7021-8, 7 ####[facility] LABCLIA [id number] [place] [address] [place] Neutrophils (Bld) [#/Vol] 1.20 10*3/uL Low 1.45-7.50 [facility] Comment on above: Order Comment: Speci men Type: BLOOD SPECIMENOrdering Facility: [facility] Address: [address] [place] [address] Performed By: #### 5 7021-8, 4536-7 ####[facility] LABCLIA [id number] [place] [address] [place] Neutrophils/100 WBC (Bld) 20.5 % Normal [facility] Comment on above: Order Comment: Speci men Type: BLOOD SPECIMENOrdering Facility: [facility] Address: [address] [place] [address] Performed By: #### 5 7021-8, 4537-7 ####[facility] LABCLIA [id number] [place] [address] [place] Nucleated RBC (Bld) [#/Vol] 10*3/uL Normal <0.01 [facility] Comment on above: Order Comment: Speci men Type: BLOOD SPECIMENOrdering Facility: [facility] Address: [address] [place] [address] Performed By: #### 5 7021-8, 4537-7 ####[facility] LABIA [id number] [place] [address] [place] Nucleated RBC/100 WBC (Bld) [Ratio] 0.0 /100 WBC Normal [facility] Comment on above: Order Comment: Speci men Type: BLOOD SPECIMENOrdering Facility: [facility] Address: [address] [place] [address] Performed By: #### 5 7021-8, 4537-7 ####[facility] LABIA [id number] [place] [address] [place] Platelet mean volume (Bld) [Entitic vol] 11.3 fL Normal 9.0-12.7 [facility] Comment on above: Order Comment: Speci men Type: BLOOD SPECIMENOrdering Facility: [facility] Address: [address] [place] [address] Performed By: #### 5 7021-8, 4537-7 ####[facility] LABIA [id number] [place] [address] [place] Platelets (Bld) [#/Vol] 172 10*3/uL Normal 150-400 [facility] Comment on above: Order Comment: Speci men Type: BLOOD SPECIMENOrdering Facility: [facility] Address: [address] [place] [address] Performed By: #### 5 7021-8, 4537-7 ####[facility] LABCLIA [id number] [place] [address] [place] RBC (Bld) [#/Vol] 4.10 10*6/uL Normal 3.90-5.20 [facility] Comment on above: Order Comment: Speci men Type: BLOOD SPECIMENOrdering Facility: [facility] Address: [address] [place] [address] Performed By: #### 5 7021-8, 4537-7 ####[facility] LABCLIA [id number] [place] [address] [place] WBC (Bld) [#/Vol] 5.87 10*3/uL Normal 3.70-11.00 [facility] Comment on above: Order Comment: Speci men Type: BLOOD SPECIMENOrdering Facility: [facility] Address: [address] [place] [address] Performed By: #### 5 7021-8, 4537-7 ####[facility] LABCLIA [id number] [place] [address] [place] CNOVon 05-26-2023 CNOV Office Visit (EXPLOR ) ANY LUDWIG ([id number]) 1985 F Date Time Provider Department 05/26/23 1:45 PM SILVIA COOPER During your visit today, we recorded the following information about you: Temperature Pulse Blood pressure 97.5 degrees 65/minute 107/66 Silvia Cooper, [place].PIGMENT MIXER 05/26/2023 2:15 PM Signed This note was created using NoteWriter. Subjective Any Ludwig is a 38 year old female. This 38 year old female present sot [facility] with expiratory wheeze, was in [...] - PREDNISONE 20 MG TABLET Silvia Cooper APRN.Silvia Bolton APRN.PIGMENT MIXER 05/26/2023 2:00 PM Signed Albuterol as needed- inhaler sent If needed, only if neede (more content not included)... Normal [facility] CNTRAVIS Office Visit (MARK ) ANY LUDWIG ([id number]) 1985 F Date Time Provider Department 05/26/23 1:00 PM FARIBA HILL During your visit today, we recorded the following information about you: Fariba Hill APRN.PIGMENT MIXER 06/07/2023 8:14 AM Signed FOLLOW UP VISIT-in person PCP: Tino Blake MD [address] [place] [address] Ms. 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 Until she has [...] unfortunate soci (more content not included)... Normal [facility] CREATININE BLDon 05-26-2023 Creatinine [Mass/Vol] 0.52 mg/dL Low 0.58 - 0.96 mg/dL [facility] Estimated Glomerular Filtration Rate 121 mL/min/1.73m >=60 mL/min/1.73m [facility] Creatinine [Mass/Vol] 0.52 mg/dL Low 0.58-0.96 [facility] Comment on above: Order Comment: Shaneka montemayor Type: BLOOD SPECIMENOrdering Facility: [facility] Address: [address] [place] [address] Performed By: #### 1 742-6, 8, CRET1, 1987-06 ####[facility] LABCLIA [id number] [facility] [id number] [address] [place] Creatinine and Glomerular filtration rate.predicted panel (S/P/Bld) 121 mL/min/1.73m??? Normal >=60 [facility] Comment on above: Order Comment: Shaneka montemayor Type: BLOOD SPECIMENOrdering Facility: [facility] Address: [address] [place] [address] Result Comment: Polly mated Glomerular Filtration Rate [...] By: #### 1 742-6, 1919-09, CRET1, 1987-06 ####[facility] LABCLIA [id number] [place] [address] [place] CRP SerPl-mCncon 05-26-2023 CRP [Mass/Vol] mg/L Normal <0.9 [facility] Comment on above: Order Comment: Speci men Type: BLOOD SPECIMENOrdering Facility: [facility] Address: [address] [place] [address] Performed By: #### 1 742-6, 1919-09, CRE1987-06 ####[facility] LABIA [id number] [place] [address] [place] ESR Westergren method (Bld) [Velocity]on 05-26-2023 ESR (Bld) [Velocity] 5 mm/h 0 - 20 mm/hr [facility] ESR (Bld) [Velocity] 5 mm/h Normal 0-20 [facility] Comment on above: Order Comment: Speci men Type: BLOOD SPECIMENOrdering Facility: [facility] Address: [address] [place] [address] Performed By: #### 5 7021-8, 4537-7 ####[facility] LABCLIA [id number] [place] [id number] [place] VITAMIN D 25 HYDROXYon 05-25 25-hydroxyvitamin D3 [Mass/Vol] 29.2 ng/mL Low 31.0 - 80.0 ng/mL [facility] C-REACTIVE PROTEIN (CRP)on CRP [Mass/Vol] 0.4 mg/dL <0.9 mg/dL [facility] CBC W Auto Differential pane l (Bld)on 11-27-2022 Basophils (Bld) [#/Vol] 0.05 10*3/uL <0.11 k/uL [facility] Basophils/100 WBC (Bld) 0.6 % [facility] Differential cell count method Nom (Bld) Auto [facility] Eosinophils (Bld) [#/Vol] 0.18 10*3/uL <0.46 k/uL [facility] Eosinophils/100 WBC (Bld) 2.3 % [facility] Erythrocyte distribution width (RBC) [Ratio] 13.7 % 11.5 - 15.0 % [facility] Hematocrit (Bld) [Volume fraction] 36.5 % 36.0 - 46.0 % [facility] Hemoglobin (Bld) [Mass/Vol] 11.7 g/dL 11.5 - 15.5 g/dL [facility] Immature granulocytes (Bld) [#/Vol] 0.09 10*3/uL <0.10 k/uL [facility] Immature granulocytes/100 WBC (Bld) 1.1 % [facility] Lymphocytes (Bld) [#/Vol] 3.92 10*3/uL 1.00 - 4.00 k/uL [facility] Lymphocytes/100 WBC (Bld) 49.2 % [facility] MCH (RBC) [Entitic mass] 26.8 pg 26.0 - 34.0 pg [facility] MCHC (RBC) [Mass/Vol] 32.1 g/dL 30.5 - 36.0 g/dL [facility] MCV (RBC) [Entitic vol] 83.7 fL 80.0 - 100.0 fL [facility] Monocytes (Bld) [#/Vol] 0.65 10*3/uL <0.87 k/uL [facility] Monocytes/100 WBC (Bld) 8.2 % [facility] Neutrophils (Bld) [#/Vol] 3.07 10*3/uL 1.45 - 7.50 k/uL [facility] Neutrophils/100 WBC (Bld) 38.6 % [facility] Nucleated RBC (Bld) [#/Vol] <0.01 k/uL [facility] Nucleated RBC/100 WBC (Bld) [Ratio] 0.0 /100 WBC [facility] Platelet mean volume (Bld) [Entitic vol] 10.5 fL 9.0 - 12.7 fL [facility] Platelets (Bld) [#/Vol] 328 10*3/uL 150 - 400 k/uL [facility] RBC (Bld) [#/Vol] 4.36 10*6/uL 3.90 - 5.2 0 m/uL [facility] WBC (Bld) [#/Vol] 7.96 10*3/uL 3.70 - 11. 00 k/uL [facility] Comprehensive metabolic 2000 panelon 11-27-2022 Albumin [Mass/Vol] 4.0 g/dL 3.9 - 4.9 g/dL [facility] ALP [Catalytic activity/Vol] 77 U/L 34 - 123 U/L [facility] ALT [Catalytic activity/Vol] 66 U/L High 7 - 38 U/L [facility] Anion gap [Moles/Vol] 11 mmol/L 9 - 18 mmol/L [facility] AST [Catalytic activity/Vol] 54 U/L High 13 - 35 U/L [facility] Bilirubin [Mass/Vol] 0.2 mg/dL 0.2 - 1 .3 mg/dL [facility] Calcium [Mass/Vol] 9.1 mg/dL 8.5 - 10. 2 mg/dL [facility] Chloride [Moles/Vol] 98 mmol/L 97 - 10 5 mmol/L [facility] CO2 [Moles/Vol] 24 mmol/L 22 - 30 mmol/L [facility] Creatinine [Mass/Vol] 0.48 mg/dL Low 0.58 - 0.96 mg/dL [facility] Estimated Glomerular Filtration Rate 125 mL/min/1.73m >=60 mL/min/1.73m [facility] Glucose [Mass/Vol] 72 mg/dL Low 74 - 99 mg/dL [facility] Potassium [Moles/Vol] 4.4 mmol/L 3.7 - 5.1 mmol/L [facility] Protein [Mass/Vol] 6.7 g/dL 6.3 - 8.0 g/dL [facility] Sodium [Moles/Vol] 133 mmol/L Low 136 - 144 mmol/L [facility] Urea nitrogen [Mass/Vol] 8 mg/dL 7 - 21 mg/dL [facility] ESR Westergren method (Bld) [Velocity]on 11-27-2022 ESR (Bld) [Velocity] 20 mm/h 0 - 20 mm/hr Cl [facility] C-REACTIVE PROTEIN (CRP)on 0 8-31-2023 CRP [Mass/Vol] <0.9 mg/dL [facility] CBC W Auto Differential pane l (Bld)on 10-22-2022 Basophils (Bld) [#/Vol] 0.04 10*3/uL <0.11 k/uL [facility] Basophils/100 WBC (Bld) 0.6 % [facility] Differential cell count method Nom (Bld) Auto [facility] Eosinophils (Bld) [#/Vol] 0.11 10*3/uL <0.46 k/uL [facility] Eosinophils/100 WBC (Bld) 1.8 % [facility] Erythrocyte distribution width (RBC) [Ratio] 13.5 % 11.5 - 15.0 % [facility] Hematocrit (Bld) [Volume fraction] 36.9 % 36.0 - 46.0 % [facility] Hemoglobin (Bld) [Mass/Vol] 11.9 g/dL 11.5 - 15.5 g/dL [facility] Immature granulocytes (Bld) [#/Vol] <0.10 k/uL [facility] Immature granulocytes/100 WBC (Bld) 0.2 % [facility] Lymphocytes (Bld) [#/Vol] 3.08 10*3/uL 1.00 - 4.00 k/uL [facility] Lymphocytes/100 WBC (Bld) 49.3 % [facility] MCH (RBC) [Entitic mass] 26.7 pg 26.0 - 34.0 pg [facility] MCHC (RBC) [Mass/Vol] 32.2 g/dL 30.5 - 36.0 g/dL [facility] MCV (RBC) [Entitic vol] 82.9 fL 80.0 - 100.0 fL [facility] Monocytes (Bld) [#/Vol] 0.50 10*3/uL <0.87 k/uL [facility] Monocytes/100 WBC (Bld) 8.0 % [facility] Neutrophils (Bld) [#/Vol] 2.51 10*3/uL 1.45 - 7.50 k/uL [facility] Neutrophils/100 WBC (Bld) 40.1 % [facility] Nucleated RBC (Bld) [#/Vol] <0.01 k/uL [facility] Nucleated RBC/100 WBC (Bld) [Ratio] 0.0 /100 WBC [facility] Platelet mean volume (Bld) [Entitic vol] 11.5 fL 9.0 - 12.7 fL [facility] Platelets (Bld) [#/Vol] 235 10*3/uL 150 - 400 k/uL [facility] RBC (Bld) [#/Vol] 4.45 10*6/uL 3.90 - 5.2 0 m/uL [facility] WBC (Bld) [#/Vol] 6.25 10*3/uL 3.70 - 11. 00 k/uL [facility] Comprehensive metabolic 2000 panelon 10-22-2022 Albumin [Mass/Vol] 4.0 g/dL 3.9 - 4.9 g/dL [facility] ALP [Catalytic activity/Vol] 62 U/L 34 - 123 U/L [facility] ALT [Catalytic activity/Vol] 23 U/L 7 - 38 U/L [facility] Anion gap [Moles/Vol] 12 mmol/L 9 - 18 mmol/L [facility] AST [Catalytic activity/Vol] 22 U/L 13 - 35 U/L [facility] Bilirubin [Mass/Vol] 0.2 mg/dL 0.2 - 1 .3 mg/dL [facility] Calcium [Mass/Vol] 9.0 mg/dL 8.5 - 10. 2 mg/dL [facility] Chloride [Moles/Vol] 105 mmol/L 97 - 10 5 mmol/L [facility] CO2 [Moles/Vol] 20 mmol/L Low 22 - 30 mmol/L [facility] Creatinine [Mass/Vol] 0.52 mg/dL Low 0.58 - 0.96 mg/dL [facility] Estimated Glomerular Filtration Rate 122 mL/min/1.73m >=60 mL/min/1.73m [facility] Glucose [Mass/Vol] 101 mg/dL High 74 - 99 mg/dL [facility] Potassium [Moles/Vol] 3.9 mmol/L 3.7 - 5.1 mmol/L [facility] Protein [Mass/Vol] 6.7 g/dL 6.3 - 8.0 g/dL [facility] Sodium [Moles/Vol] 137 mmol/L 136 - 144 mmol/L [facility] Urea nitrogen [Mass/Vol] 9 mg/dL 7 - 21 mg/dL [facility] ESR Westergren method (Bld) [Velocity]on 10-22-2022 ESR (Bld) [Velocity] 20 mm/h 0 - 20 mm/hr Cl [facility] - Chemistry and C hemistry - challengeon 10-22-2022 Urate [Mass/Vol] 5.2 mg/dL 2.5 - 6.6 mg/dL [facility] VITAMIN D 25 HYDROXYon 10-22 25-hydroxyvitamin D3 [Mass/Vol] 46.8 ng/mL 31.0 - 80.0 ng/mL [facility] CBC W Auto Differential pane l (Bld)on 06-23-2022 Basophils (Bld) [#/Vol] 0.07 10*3/uL <0.11 k/uL [facility] Basophils/100 WBC (Bld) 1.4 % [facility] Differential cell count method Nom (Bld) Auto [facility] Eosinophils (Bld) [#/Vol] 0.27 10*3/uL <0.46 k/uL [facility] Eosinophils/100 WBC (Bld) 5.3 % [facility] Erythrocyte distribution width (RBC) [Ratio] 12.8 % 11.5 - 15.0 % [facility] Hematocrit (Bld) [Volume fraction] 33.5 % Low 36.0 - 46.0 % [facility] Hemoglobin (Bld) [Mass/Vol] 11.0 g/dL Low 11.5 - 15.5 g/dL [facility] Immature granulocytes (Bld) [#/Vol] 0.05 10*3/uL <0.10 k/uL [facility] Immature granulocytes/100 WBC (Bld) 1.0 % [facility] Lymphocytes (Bld) [#/Vol] 2.55 10*3/uL 1.00 - 4.00 k/uL [facility] Lymphocytes/100 WBC (Bld) 50.2 % [facility] MCH (RBC) [Entitic mass] 28.2 pg 26.0 - 34.0 pg [facility] MCHC (RBC) [Mass/Vol] 32.8 g/dL 30.5 - 36.0 g/dL [facility] MCV (RBC) [Entitic vol] 85.9 fL 80.0 - 100.0 fL [facility] Monocytes (Bld) [#/Vol] 0.32 10*3/uL <0.87 k/uL [facility] Monocytes/100 WBC (Bld) 6.3 % [facility] Neutrophils (Bld) [#/Vol] 1.82 10*3/uL 1.45 - 7.50 k/uL [facility] Neutrophils/100 WBC (Bld) 35.8 % [facility] Nucleated RBC (Bld) [#/Vol] <0.01 k/uL [facility] Nucleated RBC/100 WBC (Bld) [Ratio] 0.0 /100 WBC [facility] Platelet mean volume (Bld) [Entitic vol] 11.6 fL 9.0 - 12.7 fL [facility] Platelets (Bld) [#/Vol] 201 10*3/uL 150 - 400 k/uL [facility] RBC (Bld) [#/Vol] 3.90 10*6/uL 3.90 - 5.2 0 m/uL [facility] WBC (Bld) [#/Vol] 5.08 10*3/uL 3.70 - 11. 00 k/uL [facility] ESR Westergren method (Bld) [Velocity]on 06-23-2022 ESR (Bld) [Velocity] 15 mm/h 0 - 20 mm/hr [facility] C-REACTIVE PROTEIN (CRP)on 0 02-24-2022 CRP [Mass/Vol] 0.6 mg/dL <0.9 mg/dL [facility] CBC W Auto Differential pane l (Bld)on 02-24-2022 Basophils (Bld) [#/Vol] 0.05 10*3/uL <0.11 k/uL [facility] Basophils/100 WBC (Bld) 0.8 % [facility] Differential cell count method Nom (Bld) Auto [facility] Eosinophils (Bld) [#/Vol] 0.28 10*3/uL <0.46 k/uL [facility] Eosinophils/100 WBC (Bld) 4.6 % [facility] Erythrocyte distribution width (RBC) [Ratio] 12.4 % 11.5 - 15.0 % [facility] Hematocrit (Bld) [Volume fraction] 37.1 % 36.0 - 46.0 % [facility] Hemoglobin (Bld) [Mass/Vol] 12.3 g/dL 11.5 - 15.5 g/dL [facility] Immature granulocytes (Bld) [#/Vol] <0.10 k/uL [facility] Immature granulocytes/100 WBC (Bld) 0.3 % [facility] Lymphocytes (Bld) [#/Vol] 3.03 10*3/uL 1.00 - 4.00 k/uL [facility] Lymphocytes/100 WBC (Bld) 49.7 % [facility] MCH (RBC) [Entitic mass] 28.7 pg 26.0 - 34.0 pg [facility] MCHC (RBC) [Mass/Vol] 33.2 g/dL 30.5 - 36.0 g/dL [facility] MCV (RBC) [Entitic vol] 86.5 fL 80.0 - 100.0 fL [facility] Monocytes (Bld) [#/Vol] 0.49 10*3/uL <0.87 k/uL [facility] Monocytes/100 WBC (Bld) 8.0 % [facility] Neutrophils (Bld) [#/Vol] 2.23 10*3/uL 1.45 - 7.50 k/uL [facility] Neutrophils/100 WBC (Bld) 36.6 % [facility] Nucleated RBC (Bld) [#/Vol] <0.01 k/uL [facility] Nucleated RBC/100 WBC (Bld) [Ratio] 0.0 /100 WBC [facility] Platelet mean volume (Bld) [Entitic vol] 11.0 fL 9.0 - 12.7 fL [facility] Platelets (Bld) [#/Vol] 224 10*3/uL 150 - 400 k/uL [facility] RBC (Bld) [#/Vol] 4.29 10*6/uL 3.90 - 5.2 0 m/uL [facility] WBC (Bld) [#/Vol] 6.10 10*3/uL 3.70 - 11. 00 k/uL [facility] Comprehensive metabolic 2000 panelon 02-24-2022 Albumin [Mass/Vol] 4.0 g/dL 3.9 - 4.9 g/dL [facility] ALP [Catalytic activity/Vol] 89 U/L 34 - 123 U/L [facility] ALT [Catalytic activity/Vol] 18 U/L 7 - 38 U/L [facility] Anion gap [Moles/Vol] 12 mmol/L 9 - 18 mmol/L [facility] AST [Catalytic activity/Vol] 27 U/L 13 - 35 U/L [facility] Bilirubin [Mass/Vol] Low 0.2 - 1 .3 mg/dL [facility] Calcium [Mass/Vol] 9.0 mg/dL 8.5 - 10. 2 mg/dL [facility] Chloride [Moles/Vol] 102 mmol/L 97 - 10 5 mmol/L [facility] CO2 [Moles/Vol] 22 mmol/L 22 - 30 mmol/L [facility] Creatinine [Mass/Vol] 0.46 mg/dL Low 0.58 - 0.96 mg/dL [facility] Estimated Glomerular Filtration Rate 126 mL/min/1.73m >=60 mL/min/1.73m [facility] Glucose [Mass/Vol] 87 mg/dL 74 - 99 mg/dL [facility] Potassium [Moles/Vol] 3.7 mmol/L 3.7 - 5.1 mmol/L [facility] Protein [Mass/Vol] 6.7 g/dL 6.3 - 8.0 g/dL [facility] Sodium [Moles/Vol] 136 mmol/L 136 - 144 mmol/L [facility] Urea nitrogen [Mass/Vol] 7 mg/dL 7 - 21 mg/dL [facility] ESR Westergren method (Bld) [Velocity]on 02-24-2022 ESR (Bld) [Velocity] 29 mm/h High 0 - 20 mm/hr [facility] VITAMIN D 25 HYDROXYon 01-05 25-hydroxyvitamin D3 [Mass/Vol] 50.7 ng/mL 31.0 - 80.0 ng/mL [facility] Covid-19 PCR (CVDTBH)on 09-22 SARS-CoV-2 (COVID-19) RNA KARAN+probe Ql (Unsp spec) Not detected Normal NOT DETECTED [facility] Comment on above: Result Comment: When [...] for this test is supported by the [place] of Health and Human Service's declaration that [...] used). Performed By: #### C VDTBH #### [facility] [address] [place] [address] Dr. Funmi Bosch GROUP A STREP CULTUREon 09-22 S. pyogenes Ag Ql (Unsp spec) Culture Observations: NEGATIVE FOR GROUP A STREPTOCOCCUS. Normal [facility] Comment on above: Performed By: #### G RASTCX, SSCRN #### [facility] [address] [place] [address] Dr. Funmi Bosch STREPT SCREENon 10-07-2021 STREP SCREEN A Negative Normal NEGATIVE [facility] Comment on above: Performed By: #### G RASTCX, SSCRN #### [facility] [address] [place] [address] Dr. Funmi Bosch BUPERNORPHINE CONFIRMATION, URINEon 09-14-2021 Buprenorphine Positive Abnormal [facility] Comment on above: Result Comment: Conf irmation performed by Mass Spectrometry Performed By: #### B UPCON #### [facility] [address] [place] [address] Dr. Funmi Bosch Buprenorphine Confirm 1071 ng/mL Normal Cutoff=10 [facility] Comment on above: Performed By: #### B UPCON #### [facility] [address] [place] [address] Dr. Funmi Bosch Norbuprenorphine Positive Abnormal [facility] Comment on above: Performed By: #### B UPCON #### [facility] [address] [place] [address] Dr. Funmi Bosch Norbuprenorphine Confirm >2000 Normal Cutoff=10 [facility] Comment on above: Performed By: #### B UPCON #### [facility] [address] [place] [address] [address] Funmi Bosch CBC AUTO DIFFon 09-04-2021 BASO # 0.0 103/ul Normal 0.0-0.1 [facility] Comment on above: Performed By: #### C BC #### [facility] [address] [place] [address] Dr. Funmi Bosch Basophils/100 WBC (Bld) 0.3 % Normal 0.2-2.0 [facility] Comment on above: Performed By: #### C BC #### [facility] [address] [place] [address] Dr. Funmi Bosch EO # 0.1 103/ul Normal 0.0-0.7 [facility] Comment on above: Performed By: #### C BC #### [facility] [address] [place] [address] Dr. Funmi Bosch Eosinophils/100 WBC (Bld) 0.6 % Critically low 0.9-7.0 [facility] Comment on above: Performed By: #### C BC #### [facility] [address] [place] [address] Dr. Funmi Bosch Erythrocyte distribution width (RBC) [Ratio] 13.4 % Normal 11.0-15.0 [facility] Comment on above: Performed By: #### C BC #### [facility] [address] [place] [address] Dr. Funmi Bosch Hematocrit (Bld) [Volume fraction] 35.2 % Critically low 36.0-48.0 [facility] Comment on above: Performed By: #### C BC #### [facility] [address] [place] [address] Dr. Funmi Bosch Hemoglobin (Bld) [Mass/Vol] 12.4 g/dL Normal 12.0-16.0 [facility] Comment on above: Performed By: #### C BC #### [facility] [address] [place] [address] Dr. Funmi Bosch IG # 0.04 10e3/ul Critically high 0.00-0.03 [facility] Comment on above: Performed By: #### C BC #### [facility] [address] [place] [address] Dr. Funmi Bosch IG % 0.3 % Normal 0.0-0.5 [facility] Comment on above: Performed By: #### C BC #### [facility] [address] [place] [address] Dr. Funmi Bosch LYMPH # 5.2 103/ul Critically high 1.2-3.8 [facility] Comment on above: Performed By: #### C BC #### [facility] [address] [place] [address] Dr. Funmi Bosch Lymphocytes/100 WBC (Bld) 41.7 % Normal 20.5-60.0 [facility] Comment on above: Performed By: #### C BC #### [facility] [address] [place] [address] Dr. Funmi Bosch MANUAL DIFF REQ NO Normal [facility] Comment on above: Performed By: #### C BC #### [facility] [address] [place] [address] Dr. Funmi Bosch MCH (RBC) [Entitic mass] 30.1 pg Normal 26.7-34.0 [facility] Comment on above: Performed By: #### C BC #### [facility] [address] [place] [address] Dr. Funmi Bosch MCHC (RBC) [Mass/Vol] 35.2 g/dL Normal 29.9-35.2 [facility] Comment on above: Performed By: #### C BC #### [facility] [address] [place] [address] Dr. Funmi Bosch MCV (RBC) [Entitic vol] 85.4 fL Normal 81.0-99.0 [facility] Comment on above: Performed By: #### C BC #### [facility] [address] [place] [address] Dr. Funmi Bosch MONO # 0.8 103/ul Normal 0.3-0.8 [facility] Comment on above: Performed By: #### C BC #### [facility] [address] [place] [address] Dr. Funmi Bosch Monocytes/100 WBC (Bld) 6.8 % Normal 1.7-12.0 [facility] Comment on above: Performed By: #### C BC #### [facility] [address] [place] [address] Dr. Funmi Bosch NEUT # 6.3 103/ul Normal 1.4-6.5 [facility] Comment on above: Performed By: #### C BC #### [facility] [address] [place] [address] Dr. Funmi Bosch Neutrophils/100 WBC (Bld) 50.3 % Normal 43.0-75.0 [facility] Comment on above: Performed By: #### C BC #### [facility] [address] [place] [address] Dr. Funmi Bosch Platelet mean volume (Bld) [Entitic vol] 9.9 fL Normal 9.5-13.5 [facility] Comment on above: Performed By: #### C BC #### [facility] [address] [place] [address] Dr. Funmi Bosch PLT 275 103/ul Normal 150-450 [facility] Comment on above: Performed By: #### C BC #### [facility] [address] [place] [address] Dr. Funmi Bosch RBC 4.12 106/ul Critically low 4.20-5.40 [facility] Comment on above: Performed By: #### C BC #### [facility] [address] [place] [address] Dr. Funmi Bosch WBC 12.4 103/ul Critically high 4.0-11.0 [facility] Comment on above: Performed By: #### C BC #### [facility] [address] [place] [address] Dr. Funmi Bosch PREG QUANT HCGon 09-04-2021 HCG QUANT <1 Normal [facility] Comment on above: Performed By: #### P REGQNT #### [facility] [address] [place] [address] Dr. Funmi Bosch HCG RANGE SEE BELOW Normal [facility] Comment on above: Result Comment: 5-50 0-1 WEEK 40-300 1-2 WEEKS 100-1,000 2-3 WEEKS 500-6,000 3-4 WEEKS 5,000-200,000 1-2 MONTHS 10,000-100,000 2-3 MONTHS 3,000-50,000 2ND TRIMESTER 1,000-50,000 3RD TRIMESTER Performed By: #### P REGQNT #### [facility] [address] [address] [address] Funmi Bosch HCG QUAL UR B/Oon 09-03-2021 status Negative neg - pos [facility] Quality Check Yes [facility] SARS-CoV-2 (COVID-19) RNA KARAN+probe Ql (Unsp spec) Not detected Normal NOT DETECTED [facility] Comment on above: Result Comment: This test is not yet approved or cleared by the [place] FDA. When there are no FDA-approved or cleared tests available, and other criteria are met, FDA can make tests available under an emergency access mechanism called an Emergency Use Authorization (EUA). The EUA for this test is supported by the Grape Picker of Health and Human Service's (HHS's) declaration [...] SARS-CoV-2. Performed By: #### C VDTBH #### [facility] [address] [place], [place] [id number] Dr. Funmi Bosch DRUG SCREEN RAPID (URINE)on 09-02-2021 AMP Negative Normal NEGATIVE [facility] Comment on above: Performed By: #### C VDTBH #### [facility] [address] [place] [address] Dr. Funmi Bosch BAR Negative Normal NEGATIVE [facility] Comment on above: Performed By: #### C VDTBH #### [facility] [address] [place] [address] Dr. Funmi Bosch BUP Positive Abnormal NEGATIVE [facility] Comment on above: Performed By: #### C VDTBH #### [facility] [address] [place] [address] Dr. Funmi Bosch BZO Negative Normal NEGATIVE [facility] Comment on above: Performed By: #### C VDTBH #### [facility] [address] [place] [address] Dr. Funmi Bosch LALA Negative Normal NEGATIVE [facility] Comment on above: Performed By: #### C VDTBH #### [facility] [address] [place] [address] Dr. Funmi Bosch CUT-OFFS SEE BELOW Normal [facility] Comment on above: Result Comment: AMP [...] ng/mL Performed By: #### C VDTBH #### [facility] [address] [place] [address] Dr. Funmi Bosch DRUG CUT HEADER DRUG CLASS TEST SYSTEM CUT-OFF CONCENTRATIONS ARE FOLLOWS: Normal [facility] Comment on above: Performed By: #### C VDTBH #### [facility] [address] [place] [address] Dr. Funmi Bosch mAMP Negative Normal NEGATIVE [facility] Comment on above: Performed By: #### C VDTBH #### [facility] [address] [place] [address] Dr. Funmi Bosch MTD Negative Normal NEGATIVE [facility] Comment on above: Performed By: #### C VDTBH #### [facility] [address] [place] [address] Dr. Funmi Bosch OPI Negative Normal NEGATIVE [facility] Comment on above: Performed By: #### C VDTBH #### [facility] [address] [place] [address] Dr. Funmi Bosch OXY Negative Normal NEGATIVE [facility] Comment on above: Performed By: #### C VDTBH #### [facility] [address] [place] [address] Dr. Funmi Bosch PCP Negative Normal NEGATIVE [facility] Comment on above: Performed By: #### C VDTBH #### [facility] [address] [place] [address] Dr. Funmi Bosch PPX Negative Normal NEGATIVE [facility] Comment on above: Performed By: #### C VDTBH #### [facility] [address] [place] [address] Dr. Funmi Bosch TCA Negative Normal NEGATIVE [facility] Comment on above: Performed By: #### C VDTBH #### [facility] [address] [place] [address] Dr. Funmi Bosch THC Negative Normal NEGATIVE [facility] Comment on above: Performed By: #### C VDTBH #### [facility] [address] [place] [address] Dr. Funmi Bosch [facility]-24 SARS-CoV-2 (COVID-19) RNA KARAN+probe Ql (Unsp spec) Not detected Normal NOT DETECTED [facility] Comment on above: Result Comment: This test is not yet approved or cleared by the [place] FDA. When there are no FDA-approved or cleared tests available, and other criteria are met, FDA can make tests available under an emergency access mechanism called an Emergency Use Authorization (EUA). The EUA for this test is supported by the Grape Picker of Health and Human Service's (HHS's) declaration [...] SARS-CoV-2. Performed By: #### C VDTBH #### [facility] [address] [place] [address] Dr. Funmi Bosch GROUP A STREP CULTUREon 07-24 S. pyogenes Ag Ql (Unsp spec) Culture Observations: NEGATIVE FOR GROUP A STREPTOCOCCUS. Normal [facility] Comment on above: Performed By: #### C VDTBH #### [facility] [address] [place] [address] Dr. Funmi Bosch STREPT SCREENon 08-15-2021 STREP SCREEN A Negative Normal NEGATIVE [facility] Comment on above: Performed By: #### C VDTBH #### [facility] [address] [place] [address] Dr. Funmi Bosch XR CHEST 1 Von [...] by: RIMMA REIS Date: 2021-08-15 18:25 Normal [facility] HCG QUAL UR B/Oon 08-06-2021 status Negative neg - pos [facility] Quality Check Yes [facility] HCG QUAL UR B/Oon 07-23-2021 status Negative neg - pos [facility] Quality Check Yes [facility] XR CHEST (2 VW)on 09-15-2020 XR [...] Tashi Baptiste MD 09/15/20 Final result Normal [facility] XR CHEST (2 VW)Ordered By: Cleveland Caro on 09-15-2020 Possible interstitia l infiltrates. Probable small airways disease. [employer] Phone: EXAMINATION: TWO XRA Y VIEWS OF THE CHEST 09/15/2020 5:40 pm COMPARISON: None. HISTORY: ORDERING SYSTEM PROVIDED HISTORY: productive cough, wheezing TECHNOLOGIST PROVIDED HISTORY: productive cough, wheezing FINDINGS: Lungs are hyperaerated. Possible patchy bilateral interstitial infiltrates. Heart and mediastinum normal. Bony thorax intact. [employer] Phone: Kurt, pn Incoming Radiant Results From [employer] - 09/15/2020 6:20 PM EDT EXAMINATION: TWO XRAY VIEWS OF THE CHEST 09/15/2020 5:40 pm COMPARISON: None. HISTORY: ORDERING SYSTEM PROVIDED HISTORY: productive cough, wheezing TECHNOLOGIST PROVIDED HISTORY: productive cough, wheezing FINDINGS: Lungs are hyperaerated. Possible patchy bilateral interstitial infiltrates. Heart and mediastinum normal. Bony thorax intact. IMPRESSION: Possible interstitial infiltrates. Probable small airways disease. [employer] Phone: [employer] Phone: CBC auto differentialon 05-1 Basophils (Bld) [#/Vol] 0.03 10*3/uL [facility] [place] Basophils/100 WBC (Bld) 0 % 0 - 2 % [place] Differential Type NOT REPORTED [place] Eosinophils (Bld) [#/Vol] 0.16 10*3/uL [facility] [place] Eosinophils/100 WBC (Bld) 1 % 1 - 4 % [place] Erythrocyte distribution width (RBC) [Ratio] 14.3 % 11.8 - 14.4 % [place] Hematocrit (Bld) [Volume fraction] 35.7 % Low 36.3 - 47.1 % [place] Hemoglobin (Bld) [Mass/Vol] 11.6 g/dL Low 11.9 - 15.1 g/dL [place] Immature granulocytes (Bld) [#/Vol] 2 % High 0 [place] Immature granulocytes (Bld) [#/Vol] 0.27 10*3/uL [place] Interpretation and review of laboratory results Abnormal [place] Lymphocytes (Bld) [#/Vol] 3.65 10*3/uL [place] Lymphocytes/100 WBC (Bld) 26 % 24 - 43 % [place] MCH (RBC) [Entitic mass] 28.3 pg 25.2 - 33.5 pg [place] MCHC (RBC) [Mass/Vol] 32.5 g/dL 28.4 - 34.8 g/dL [place] MCV (RBC) [Entitic vol] 87.1 fL 82.6 - 102.9 fL [place] Monocytes (Bld) [#/Vol] 0.97 10*3/uL [place] Monocytes/100 WBC (Bld) 7 % 3 - 12 % [place] Platelet mean volume (Bld) [Entitic vol] 10.3 fL 8.1 - 13.5 fL [place] Platelets (Bld) [#/Vol] NOT REPORTED [place] Platelets (Bld) [#/Vol] 349 10*3/uL [place] RBC (Bld) [#/Vol] 4.10 10*6/uL 3.95 - 5.1 1 m/uL [place] RBC morphology finding Nom (Bld) NOT REPORTED [place] Segmented neutrophils/100 WBC (Bld) 64 % 36 - 65 % [place] Segs Absolute 8.80 High [place] WBC (Bld) [#/Vol] 13.9 10*3/uL [place] WBC (Bld) [#/Vol] 0.0 10*3/uL 0.0 per 10 0 WBC [place] WBC Morphology NOT REPORTED [place] DRUG SCREEN MULTI URINEon Amphetamine Screen, Ur Negative NEGATIVE [facility] Barbiturate Screen, Ur Negative NEGATIVE [facility] Benzodiazepine Screen, Urine Negative NEGATIVE [facility] Buprenorphine Urine Negative NEGATIVE [facility] Cannabinoid Scrn, Ur Negative NEGATIVE [facility] Cocaine Metabolite, Urine Negative NEGATIVE [facility] MDMA, Urine NOT REPORTED NEGATIVE [facility] Methadone Screen, Urine Negative NEGATIVE [facility] Methamphetamine, Urine Negative NEGATIVE [facility] Opiates, Urine Negative NEGATIVE [place] Oxycodone Screen, Ur Negative NEGATIVE [facility] Phencyclidine, Urine Negative NEGATIVE [facility] Propoxyphene, Urine Negative NEGATIVE [place] Test Information NOT REPORTED [place] Tricyclic Antidepressants, Urine Negative NEGATIVE [place] Comment on above: Drug screen results are to be used for medical purposes only. All positive results are unconfirmed. Testing for employment or legal uses should be sent to a reference laboratory for confirmation. Glucose tolerance, 1 houron 05-01-2019 GLU ADMN Glucola [place] Glucose tolerance screen 50g 116 mg/dL 70 - 135 mg/dL [place] Hemoglobinon 05-01-2019 Hemoglobin (Bld) [Mass/Vol] 11.0 g/dL Low 11.9 - 15.1 g/dL [place] Interpretation and review of laboratory results Abnormal [place] Rapid Influenza A/B Antigens on 04-04-2019 Direct Exam INFLUENZA TEST INVALID BY OUR TESTING METHOD. WILL BE SENT FOR CONFIRMATORY TESTING. [employer] Phone: Special Requests NOT REPORTED [facility] Phone: Specimen Description .NASOPHARYNGEAL SWAB 20x200 Work Phone: TYPE AND SCREENon 1 ABO/Rh Negative [facility] Antibody ID Anti-D, Passive Due To RhIG [facility] Urine Drug Screen, Comprehen siveon 12-19-2018 Amphetamine Screen, Ur Negative NEGATIVE [facility]- [place], [place] Barbiturate Screen, Ur Negative NEGATIVE [facility]- [place] Benzodiazepine Screen, Urine Negative NEGATIVE [facility] Buprenorphine Urine Negative NEGATIVE [facility] Cannabinoid Scrn, Ur Negative NEGATIVE [facility] [employer] [facility] Cocaine Metabolite, Urine Negative NEGATIVE [facility] MDMA, Urine NOT REPORTED [facility]IVE [facility] [place] Methadone Screen, Urine Negative NEGATIVE [facility] Methamphetamine, Urine Negative NEGATIVE [facility] Opiates, Urine Negative NEGATIVE [facility] Oxycodone Screen, Ur Negative NEGATIVE [facility] [employer] [facility]- [place] Phencyclidine, Urine Negative NEGATIVE [facility] [place] Propoxyphene, Urine Negative NEGATIVE [facility] Test Information NOT REPORTED [facility] Tricyclic Antidepressants, Urine Negative NEGATIVE [facility] Comment on above: Drug screen results are to be used for medical purposes only. All positive results are unconfirmed. Testing for employment or legal uses should be sent to a reference laboratory for confirmation. ABO/RHon 12-03-2018 ABO/Rh Negative [facility] [place] CBCon 12-03-2018 Erythrocyte distribution width (RBC) [Ratio] 15.5 % High 11.8 - 14.4 % [place] Hematocrit (Bld) [Volume fraction] 32.8 % Low 36.3 - 47.1 % [place] Hemoglobin (Bld) [Mass/Vol] 10.5 g/dL Low 11.9 - 15.1 g/dL [place] Interpretation and review of laboratory results Abnormal [place] MCH (RBC) [Entitic mass] 27.1 pg 25.2 - 33.5 pg [place] MCHC (RBC) [Mass/Vol] 32.0 g/dL 28.4 - 34.8 g/dL [place] MCV (RBC) [Entitic vol] 84.8 fL 82.6 - 102.9 fL [place] Platelet mean volume (Bld) [Entitic vol] 10.6 fL 8.1 - 13.5 fL [place] Platelets (Bld) [#/Vol] 230 10*3/uL [place] RBC (Bld) [#/Vol] 3.87 10*6/uL Low 3.95 - 5.1 1 m/uL [place] WBC (Bld) [#/Vol] 0.0 10*3/uL 0.0 per 10 0 WBC [place] WBC (Bld) [#/Vol] 10.3 10*3/uL [place] Comprehensive Metabolic Pane miriam 12-03-2018 Albumin [Mass/Vol] 3.7 g/dL 3.5 - 5.2 g/dL [place] Albumin/Globulin [Mass ratio] 1.2 {ratio} [place] ALP [Catalytic activity/Vol] 64 U/L 35 - 104 U/L [place] ALT [Catalytic activity/Vol] 11 U/L 5 - 33 U/L [place] Anion gap [Moles/Vol] 15 mmol/L 9 - 17 mmol/L [place] AST [Catalytic activity/Vol] 17 U/L <32 [place] Bilirubin Ql (U) <0.10 Low 0.3 - 1.2 mg/dL [place] Bun/Cre Ratio 21 [place] Calcium [Mass/Vol] 9.5 mg/dL 8.6 - 10. 4 mg/dL [place] Chloride [Moles/Vol] 97 mmol/L Low 98 - 10 7 mmol/L [place] CO2 [Moles/Vol] 21 mmol/L 20 - 31 mmol/L [place] Creatinine [Mass/Vol] 0.47 mg/dL Low 0.5 - 0.9 mg/dL [place] GFR >60 >60 mL/min [place] GFR Non- >60 >60 mL/min [place] Glucose [Mass/Vol] 104 mg/dL High 70 - 99 mg/dL [place], [place] Interpretation and review of laboratory results Abnormal [place] Potassium [Moles/Vol] 3.5 mmol/L Low 3.7 - 5.3 mmol/L [place] Protein [Mass/Vol] 6.8 g/dL 6.4 - 8.3 g/dL [place] Sodium [Moles/Vol] 133 mmol/L Low 135 - 144 mmol/L [place] Urea nitrogen [Mass/Vol] 10 mg/dL 6 - 20 mg/dL [place] Metabolic Panelon 12-03-2018 GFR/1.73 sq M predicted among non-blacks MDRD (S/P/Bld) [Vol rate/Area] [place] Comment on above: Stage 1: Some [...] body mass. Additional eGFR calculator available at: http://[email or web address]_crcl_2012.htm Microscopic Urinalysison Amorphous, UA 3+ Abnormal None [place] Bacteria, UA 1+ Abnormal None [place] Casts UA NOT REPORTED /LPF [place] Crystals UA NOT REPORTED None /HPF [place] Epithelial Cells UA 0 TO 2 [place] Interpretation and review of laboratory results Abnormal [place] Mucus, UA NOT REPORTED None [place] Other Observations UA NOT REPORTED NOT REQ. M [place], [place] RBC (U) [#/Vol] 0 TO 2 [place], [place] Renal Epithelial, Urine NOT REPORTED 0 /HPF [place] Trichomonas, UA NOT REPORTED None [facility] [place] WBC, UA 0 TO 2 [place] Yeast, UA NOT REPORTED None [place] - [place] Urinalysis Reflex to Culture on 12-03-2018 Bilirubin Urine Negative NEGATIVE [place] Color, UA YELLOW YELLOW [place] Glucose, Ur Negative NEGATIVE [place] Interpretation and review of laboratory results Abnormal [place] Ketones Ql (U) Negative NEGATIVE [place] Leukocyte esterase Test strip Ql (U) Negative NEGATIVE [place] Nitrite, Urine Negative NEGATIVE [place] pH, UA 7.5 [place] Protein (U) [Mass/Vol] Negative NEGATIVE [place] Specific Jones, UA 1.015 [place], [place] Turbidity UA CLOUDY Abnormal CLEAR [place] Urinalysis Comments NOT REPORTED [place], [place] Urine Hgb Negative NEGATIVE [place] Urobilinogen, Urine Normal Normal [place] Wet Prep, Genitalon 12-04-19 19 Direct Exam YEAST PRESENT [place] Direct Exam NO CLUE CELLS SEEN [place] Direct Exam NO TRICHOMONAS SEEN [place] Special Requests NOT REPORTED [place] Specimen Description .VAGINA [place] hCG, quantitative, on 12-03-2018 hCG Quant [id number] High <5 IU/L [place] Comment on above: Non-preg premeno <=5 Postmeno <=8 Male <=3 If HCG results do not concur with clinical observations, additional testing to confirm results is recommended. Elevated results not associated with may be found in patients with other diseases such as tumors of the germ cells (testis, ovaries, etc.), bladder, pancreas, stomach, lungs, and liver. Interpretation and review of laboratory results Abnormal [place] Vital Signs Date Time Vital Sign Value Performing Clinician Facility 08-30-2024 09:14-0400 Body mass index (BMI) [Ratio] 26.11 kg/m2 Niya De La Rosajoe [employer] Work Phone: [facility] 08-30-2024 09:14-0400 Body temperature 98.49 [degF] Niya Damongretel [employer] Work Phone: [facility] 08-30-2024 09:14-0400 Body weight 66.86 kg Niya De La Rosajoe [employer] Work Phone: [facility] 08-30-2024 09:14-0400 Diastolic blood pressure 90 mm[Hg] Niya Nelsonnaziaz [employer] Work Phone: [facility] 08-30-2024 09:14-0400 Heart rate 83 /min Niya Damongretel [employer] Work Phone: [facility] 08-30-2024 09:14-0400 Respiratory rate 18 /min Niya De La Rosajoe [employer] Work Phone: [facility] 08-30-2024 09:14-0400 SaO2% (BldA) [Mass fraction] 96 % Niyajose Damongretel [employer] Work Phone: [facility] 08-30-2024 09:14-0400 Systolic blood pressure 130 mm[Hg] Niya Damongretel [employer] Work Phone: [facility] 04-26-2024 13:04-0500 Body height 160 cm Niya Damongretel [employer] Work Phone: [facility] 04-26-2024 13:04-0500 Body mass index (BMI) [Ratio] 29.62 kg/m2 Niyajose Damonnaziaz [employer] Work Phone: [facility] 04-26-2024 13:04-0500 Body temperature 98.1 [degF] Niya Damongretel [employer] Work Phone: [facility] 04-26-2024 13:04-0500 Body weight 75.84 kg Niyajose Damonnaziaz [employer] Work Phone: [facility] 04-26-2024 13:04-0500 Diastolic blood pressure 78 mm[Hg] Niya Jack [employer] Work Phone: [facility] 04-26-2024 13:04-0500 Heart rate 93 /min Niya Jack [employer] Work Phone: [facility] 04-26-2024 13:04-0500 Respiratory rate 18 /min Niya Jack [employer] Work Phone: [facility] 04-26-2024 13:04-0500 SaO2% (BldA) [Mass fraction] 97 % Niyajose Santiago [employer] Work Phone: [facility] 04-26-2024 13:04-0500 Systolic blood pressure 122 mm[Hg] Niya Jack [employer] Work Phone: [facility] 03-31-2024 13:49-0500 Body height 160 cm Craig Wade MD Work Phone: [facility] 03-31-2024 13:49-0500 Body mass index (BMI) [Ratio] 28.78 kg/m2 Craig Wade MD Work Phone: [facility] [facility] 03-31-2024 13:49-0500 Body weight 73.7 kg Craig Wade MD Work Phone: [facility] 03-31-2024 13:49-0500 Diastolic blood pressure 70 mm[Hg] Craig Wade MD Work Phone: [facility] 03-31-2024 13:49-0500 Heart rate 77 /min Craig Wade MD Work Phone: [facility] 03-31-2024 13:49-0500 Systolic blood pressure 115 mm[Hg] Craig Wade MD Work Phone: [facility] 03-01-2024 10:42-0500 Body height 160 cm Niya Santiago [employer]INTER [employer] Work Phone: [facility] 03-01-2024 10:42-0500 Body mass index (BMI) [Ratio] 27.95 kg/m2 Niyajose De La Rosaholz [employer] Work Phone: [facility] 03-01-2024 10:42-0500 Body temperature 97.59 [degF] Niya Estrellaholz [employer]INTER [employer] Work Phone: [facility] 03-01-2024 10:42-0500 Body weight 71.58 kg Niya Nelsonhholz [employer] Work Phone: [facility] 03-01-2024 10:42-0500 Diastolic blood pressure 82 mm[Hg] Niya Aichholz [employer]INTER [employer] Work Phone: [facility] 03-01-2024 10:42-0500 Heart rate 101 /min Niya Nelsonhholz [employer]INTER [employer] Work Phone: [facility] 03-01-2024 10:42-0500 Respiratory rate 18 /min Niya Estrellaholz [employer] Work Phone: [facility] 03-01-2024 10:42-0500 SaO2% (BldA) [Mass fraction] 97 % Niya Nelsonhholz [employer] Work Phone: [facility] 03-01-2024 10:42-0500 Systolic blood pressure 120 mm[Hg] Niya Estrellaholz JOINTER [employer] Work Phone: [facility] 01-25-2024 14:54-0500 Body height 160 cm Niya Nelsonhholz [employer] Work Phone: [facility] 01-25-2024 14:54-0500 Body mass index (BMI) [Ratio] 29.8 kg/m2 Niya Nelsonhholz [employer] Work Phone: [facility] 01-25-2024 14:54-0500 Body temperature 97.81 [degF] Niya Estrellaholz [employer] Work Phone: [facility] 01-25-2024 14:54-0500 Body weight 76.3 kg Niya Nelsonhholz JOINTER [employer] Work Phone: [facility] 01-25-2024 14:54-0500 Diastolic blood pressure 72 mm[Hg] Niya Aichholz [employer] Work Phone: [facility] 01-25-2024 14:54-0500 Heart rate 78 /min Niya Aichholz JOINTER [employer] Work Phone: [facility] 01-25-2024 14:54-0500 Respiratory rate 19 /min Niya Aichholz [employer] Work Phone: [facility] 01-25-2024 14:54-0500 SaO2% (BldA) [Mass fraction] 98 % Niya Aichholz [employer] Work Phone: [facility] 01-25-2024 14:54-0500 Systolic blood pressure 104 mm[Hg] Niya Aichholz [employer]INTER [employer] Work Phone: [facility] 10-21-2023 13:04-0400 Body height 160 cm Niya Aichholz JOINTER [employer] Work Phone: [facility] 10-21-2023 13:04-0400 Body mass index (BMI) [Ratio] 29.19 kg/m2 Niya Aichholz [employer] Work Phone: [facility] 10-21-2023 13:04-0400 Body temperature 97 [degF] Niya Nelsonhholz JOINTER [employer] Work Phone: [facility] 10-21-2023 13:04-0400 Body weight 74.75 kg Niya Aichholz [employer] Work Phone: [facility] 10-21-2023 13:04-0400 Diastolic blood pressure 80 mm[Hg] Niya Aichholz [employer]INTER [employer] Work Phone: [facility] 10-21-2023 13:04-0400 Heart rate 97 /min Niya Aichholz [employer] Work Phone: [facility] 10-21-2023 13:04-0400 Respiratory rate 18 /min Niya Aichholz [employer] Work Phone: [facility] 10-21-2023 13:04-0400 SaO2% (BldA) [Mass fraction] 98 % Niya De La Rosajoe [employer]INTER SU[employer] Work Phone: [facility] 10-21-2023 13:04-0400 Systolic blood pressure 120 mm[Hg] Niya De La Rosajoe JOINTER SU[employer] Work Phone: [facility] 05-26-2023 13:42-0400 Body temperature 97.5 [degF] Silvia Cooper MANAGED CARE PROVIDER.PIGMENT MIXER Work Phone: [facility] 05-26-2023 13:42-0400 Diastolic blood pressure 66 mm[Hg] Silvia Cooper MANAGED CARE PROVIDER.PIGMENT MIXER Work Phone: [facility] 05-26-2023 13:42-0400 Heart rate 65 /min Silvia Cooper MANAGED CARE PROVIDER.PIGMENT MIXER Work Phone: [facility] 05-26-2023 13:42-0400 SaO2% (BldA) [Mass fraction] 98 % Silvia Cooper MANAGED CARE PROVIDER.PIGMENT MIXER Work Phone: [facility] 05-26-2023 13:42-0400 Systolic blood pressure 107 mm[Hg] Silvia Cooper MANAGED CARE PROVIDER.PIGMENT MIXER Work Phone: [facility] 05-26-2023 11:32-0400 Body temperature 97.2 [degF] Rheu Leslie Work Phone: [facility] 05-26-2023 11:32-0400 Body weight 74.9 kg Rheu Leslie Work Phone: [facility] 05-26-2023 11:32-0400 Diastolic blood pressure 69 mm[Hg] Rheu Leslie Work Phone: [facility] 05-26-2023 11:32-0400 Heart rate 65 /min Rheu Leslie Work Phone: [facility] 05-26-2023 11:32-0400 SaO2% (BldA) [Mass fraction] 96 % Rheu Leslie Work Phone: [facility] 05-26-2023 11:32-0400 Systolic blood pressure 106 mm[Hg] Rheu Leslie Work Phone: [facility] 04-28-2023 12:15-0500 Body temperature 97 [degF] Rheu Leslie Work Phone: [facility] 04-28-2023 12:15-0500 Body weight 73.6 kg Rheu Leslie Work Phone: [facility] 04-28-2023 12:15-0500 Diastolic blood pressure 73 mm[Hg] Rheu Leslie Work Phone: [facility] 04-28-2023 12:15-0500 Heart rate 80 /min Rheu Leslie Work Phone: [facility] 04-28-2023 12:15-0500 Respiratory rate 18 /min Rheu Leslie Work Phone: [facility] 04-28-2023 12:15-0500 Systolic blood pressure 110 mm[Hg] Rheu Leslie Work Phone: [facility] 03-31-2023 12:50-0500 Diastolic blood pressure 69 mm[Hg] Rheu Leslie Work Phone: [facility] 03-31-2023 12:50-0500 Heart rate 70 /min Rheu Leslie Work Phone: [facility] 03-31-2023 12:50-0500 Systolic blood pressure 112 mm[Hg] Rheu Leslie Work Phone: [facility] 03-31-2023 11:34-0500 Body temperature 97.39 [degF] Rheu Leslie Work Phone: [facility] 03-31-2023 11:34-0500 Body weight 74.39 kg Rheu Leslie Work Phone: [facility] 01-20-2023 08:40-0500 Body temperature 96.21 [degF] Fariba Hill APRN.PIGMENT MIXER Work Phone: [facility] 01-20-2023 08:40-0500 Body weight 72.45 kg Fariba Hill APRN.PIGMENT MIXER Work Phone: [facility] 01-20-2023 08:40-0500 Diastolic blood pressure 82 mm[Hg] Fariba Hill APRN.PIGMENT MIXER Work Phone: [facility] 01-20-2023 08:40-0500 Heart rate 84 /min Fariba Hill APRN.PIGMENT MIXER Work Phone: [facility] 01-20-2023 08:40-0500 SaO2% (BldA) [Mass fraction] 97 % Fariba Hill APRN.PIGMENT MIXER Work Phone: [facility] 01-20-2023 08:40-0500 Systolic blood pressure 128 mm[Hg] Fariba Hill APRN.PIGMENT MIXER Work Phone: [facility] 12-31-2022 10:45-0500 Body temperature 97.5 [degF] Rheu Leslie Work Phone: [facility] 12-31-2022 10:45-0500 Body weight 71.67 kg Rheu Leslie Work Phone: [facility] 12-31-2022 10:45-0500 Diastolic blood pressure 61 mm[Hg] Rheu Leslie Work Phone: [facility] 12-31-2022 10:45-0500 Heart rate 78 /min Rheu Leslie Work Phone: [facility] 12-31-2022 10:45-0500 SaO2% (BldA) [Mass fraction] 97 % Rheu Leslie Work Phone: [facility] 12-31-2022 10:45-0500 Systolic blood pressure 123 mm[Hg] Rheu Leslie Work Phone: [facility] 11-27-2022 09:44-0400 Body temperature 97 [degF] Rheu Leslie Work Phone: [facility] 11-27-2022 09:44-0400 Body weight 71.94 kg Rheu Leslie Work Phone: [facility] 11-27-2022 09:44-0400 Diastolic blood pressure 65 mm[Hg] Rheu Leslie Work Phone: [facility] 11-27-2022 09:44-0400 Heart rate 75 /min Rheu Leslie Work Phone: [facility] 11-27-2022 09:44-0400 Systolic blood pressure 112 mm[Hg] Rheu Leslie Work Phone: [facility] 10-22-2022 14:00-0400 Diastolic blood pressure 55 mm[Hg] Rheu Leslie Work Phone: [facility] 10-22-2022 14:00-0400 Heart rate 51 /min Rheu Leslie Work Phone: [facility] 10-22-2022 14:00-0400 Respiratory rate 18 /min Rheu Leslie Work Phone: [facility] 10-22-2022 14:00-0400 Systolic blood pressure 111 mm[Hg] Rheu Leslie Work Phone: [facility] 10-22-2022 10:52-0400 SaO2% (BldA) [Mass fraction] 100 % Rheu Leslie Work Phone: [facility] 10-22-2022 09:39-0400 Body weight 70.31 kg Rheu Leslie Work Phone: [facility] 10-22-2022 09:03-0400 Body temperature 96.91 [degF] Fariba Hill APRN.PIGMENT MIXER Work Phone: [facility] 10-22-2022 09:03-0400 Diastolic blood pressure 79 mm[Hg] Fariba Hill APRN.PIGMENT MIXER Work Phone: [facility] 10-22-2022 09:03-0400 Heart rate 69 /min Fariba Hill APRN.PIGMENT MIXER Work Phone: [facility] 10-22-2022 09:03-0400 SaO2% (BldA) [Mass fraction] 98 % Fariba Hill APRN.PIGMENT MIXER Work Phone: [facility] 10-22-2022 09:03-0400 Systolic blood pressure 116 mm[Hg] Fariba Hill APRN.PIGMENT MIXER Work Phone: [facility] 09-17-2022 09:30-0400 Body temperature 98.01 [degF] Rheu Leslie Work Phone: [facility] 09-17-2022 09:30-0400 Body weight 70.31 kg Rheu Leslie Work Phone: [facility] 09-17-2022 09:30-0400 Diastolic blood pressure 80 mm[Hg] Rheu Leslie Work Phone: [facility] 09-17-2022 09:30-0400 Heart rate 85 /min Rheu Leslie Work Phone: [facility] 09-17-2022 09:30-0400 Respiratory rate 16 /min Rheu Leslie Work Phone: [facility] 09-17-2022 09:30-0400 Systolic blood pressure 139 mm[Hg] Rheu Leslie Work Phone: [facility] 04-14-2022 13:44-0500 Diastolic blood pressure 80 mm[Hg] Rheu Leslie Work Phone: [facility] 04-14-2022 13:44-0500 Heart rate 60 /min Rheu Leslie Work Phone: [facility] 04-14-2022 13:44-0500 Respiratory rate 18 /min Rheu Leslie Work Phone: [facility] 04-14-2022 13:44-0500 Systolic blood pressure 115 mm[Hg] Rheu Leslie Work Phone: [facility] 04-14-2022 10:24-0500 Body weight 66.22 kg Fariba Hill APRN.PIGMENT MIXER Work Phone: [facility] 04-14-2022 10:24-0500 Diastolic blood pressure 74 mm[Hg] Fariba Hill APRN.PIGMENT MIXER Work Phone: [facility] 04-14-2022 10:24-0500 Heart rate 72 /min Fariba Hill APRN.PIGMENT MIXER Work Phone: [facility] 04-14-2022 10:24-0500 Systolic blood pressure 126 mm[Hg] Fariba Hill APRN.PIGMENT MIXER Work Phone: [facility] 02-24-2022 13:00-0500 Diastolic blood pressure 46 mm[Hg] Rheu Leslie Work Phone: [facility] 02-24-2022 13:00-0500 Heart rate 62 /min Rheu Leslie Work Phone: [facility] 02-24-2022 13:00-0500 Respiratory rate 16 /min Rheu Leslie Work Phone: [facility] 02-24-2022 13:00-0500 Systolic blood pressure 96 mm[Hg] Rheu Leslie Work Phone: [facility] 02-24-2022 10:00-0500 Body temperature 97.11 [degF] Rheu Leslie Work Phone: [facility] 02-24-2022 10:00-0500 Body weight 69.85 kg Rheu Leslie Work Phone: [facility] 01-05-2022 13:38-0500 Diastolic blood pressure 68 mm[Hg] Rheu Leslie Work Phone: [facility] 01-05-2022 13:38-0500 Heart rate 50 /min Rheu Leslie Work Phone: [facility] 01-05-2022 13:38-0500 Respiratory rate 20 /min Rheu Leslie Work Phone: [facility] 01-05-2022 13:38-0500 Systolic blood pressure 115 mm[Hg] Rheu Leslie Work Phone: [facility] 01-05-2022 10:05-0500 Body weight 70.76 kg Fariba Hill APRN.PIGMENT MIXER Work Phone: [facility] 01-05-2022 10:05-0500 Diastolic blood pressure 68 mm[Hg] Fariba Hill APRN.PIGMENT MIXER Work Phone: [facility] 01-05-2022 10:05-0500 Heart rate 66 /min Fariba Hill MANAGED CARE PROVIDER.PIGMENT MIXER Work Phone: [facility] 01-05-2022 10:05-0500 Systolic blood pressure 128 mm[Hg] Fariba Hill MANAGED CARE PROVIDER.PIGMENT MIXER Work Phone: [facility] 11-13-2021 16:03-0400 Diastolic blood pressure 63 mm[Hg] Rheu Leslie Work Phone: [facility] 11-13-2021 16:03-0400 Heart rate 60 /min Rheu Leslie Work Phone: [facility] 11-13-2021 16:03-0400 Respiratory rate 18 /min Rheu Leslie Work Phone: [facility] 11-13-2021 16:03-0400 Systolic blood pressure 106 mm[Hg] Rheu Leslie Work Phone: [facility] 11-13-2021 13:20-0400 Body temperature 97 [degF] Rheu Leslie Work Phone: [facility] 11-13-2021 13:20-0400 Body weight 73.94 kg Rheu Leslie Work Phone: [facility] 09-03-2021 15:41-0400 Diastolic blood pressure 69 mm[Hg] Rheu Leslie Work Phone: [facility] 09-03-2021 15:41-0400 Heart rate 74 /min Rheu Leslie Work Phone: [facility] 09-03-2021 15:41-0400 Respiratory rate 18 /min Rheu Leslie Work Phone: [facility] 09-03-2021 15:41-0400 Systolic blood pressure 114 mm[Hg] Rheu Leslie Work Phone: [facility] 09-03-2021 12:55-0400 Body temperature 97.9 [degF] Rheu Leslie Work Phone: [facility] 09-03-2021 12:55-0400 Body weight 71.67 kg Rheu Leslie Work Phone: [facility] 08-06-2021 16:10-0400 Diastolic blood pressure 59 mm[Hg] Rheu Leslie Work Phone: [facility] 08-06-2021 16:10-0400 Heart rate 55 /min Rheu Leslie Work Phone: [facility] 08-06-2021 16:10-0400 Respiratory rate 18 /min Rheu Leslie Work Phone: [facility] 08-06-2021 16:10-0400 Systolic blood pressure 105 mm[Hg] Rheu Leslie Work Phone: [facility] 08-06-2021 13:00-0400 Body temperature 97.59 [degF] Rheu Leslie Work Phone: [facility] 08-06-2021 13:00-0400 Body weight 74.03 kg Rheu Leslie Work Phone: [facility] 07-23-2021 12:15-0400 Diastolic blood pressure 72 mm[Hg] Rheu Leslie Work Phone: [facility] 07-23-2021 12:15-0400 Heart rate 78 /min Rheu Leslie Work Phone: [facility] 07-23-2021 12:15-0400 Respiratory rate 18 /min Rheu Leslie Work Phone: [facility] 07-23-2021 12:15-0400 Systolic blood pressure 118 mm[Hg] Rheu Leslie Work Phone: [facility] 07-23-2021 08:54-0400 Body weight 74.39 kg Fariba Hill MANAGED CARE PROVIDER.PIGMENT MIXER Work Phone: [facility] 07-23-2021 08:54-0400 Diastolic blood pressure 78 mm[Hg] Fariba Hill MANAGED CARE PROVIDER.PIGMENT MIXER Work Phone: [facility] 07-23-2021 08:54-0400 Heart rate 66 /min Fariba Hill MANAGED CARE PROVIDER.PIGMENT MIXER Work Phone: [facility] 07-23-2021 08:54-0400 Systolic blood pressure 122 mm[Hg] Fariba Hill PIGMENT MIXER Work Phone: [facility] 09-15-2020 17:13-0400 Body mass index (BMI) [Ratio] 25.69 kg/m2 [employer] Phone: 09-15-2020 17:13-0400 Body temperature 98.6 [degF] 20x200 Work Phone: 09-15-2020 17:13-0400 Body weight 65.77 kg [employer] Phone: 09-15-2020 17:13-0400 Diastolic blood pressure 94 mm[Hg] [employer] Phone: 09-15-2020 17:13-0400 Heart rate 71 /min [employer] Phone: 09-15-2020 17:13-0400 Respiratory rate 14 /min [employer] Phone: 09-15-2020 17:13-0400 SaO2% (BldA) [Mass fraction] 96 % [employer] Phone: 09-15-2020 17:13-0400 Systolic blood pressure 136 mm[Hg] [employer] Phone: 03-15-2020 16:47-0500 Respiratory Rate 16 /min [employer] 03-15-2020 16:03-0500 Body Temperature 98.91 [degF] [employer] 03-15-2020 16:01-0500 BMI (Body Mass Index) 24.8 kg/m2 [employer] 03-15-2020 16:01-0500 Body weight 63.5 kg [employer] [place] 03-15-2020 16:01-0500 Height 160 cm [employer] [place] 03-15-2020 15:58-0500 BP Diastolic 74 mm[Hg] [employer] [place] 03-15-2020 15:58-0500 BP Systolic 128 mm[Hg] [facility] [place] 03-15-2020 15:58-0500 Pulse (Heart Rate) 103 /min [facility] 03-15-2020 15:58-0500 Pulse Oximetry 99 % [facility] [place] 07-13-2019 07:18-0400 Body Temperature 97.9 [degF] Tosha Viera [facility] 07-13-2019 07:18-0400 BP Diastolic 68 mm[Hg] Tosha Viera [facility] [place] , [place] 07-13-2019 07:18-0400 BP Systolic 109 mm[Hg] Toshagabi Viera [facility] , [place] 07-13-2019 07:18-0400 Pulse (Heart Rate) 75 /min Tosha Viera [facility] 07-13-2019 07:18-0400 Respiratory Rate 16 /min Toshagabi Viera [place], [place] 07-12-2019 09:51-0400 Pulse Oximetry 98 % Tosha Viera [facility] [place] 07-11-2019 20:57-0400 BMI (Body Mass Index) 32.42 kg/m2 Tosha Viera [facility] 07-11-2019 20:57-0400 Body weight 83.01 kg Tosha [facility] , [place] 07-11-2019 20:57-0400 Height 160 cm Toshagabi Viera [facility] [place] 05-12-2019 06:15-0400 BMI (Body Mass Index) 33.66 kg/m2 [facility] [place], [place] 05-12-2019 06:15-0400 Body Temperature 99 [degF] [facility] 05-12-2019 06:15-0400 Body weight 86.18 kg [facility] [place] 05-12-2019 06:15-0400 BP Diastolic 78 mm[Hg] [facility] , [place] 05-12-2019 06:15-0400 BP Systolic 130 mm[Hg] [facility] , [place] 05-12-2019 06:15-0400 Height 160 cm [facility] [place] 05-12-2019 06:15-0400 Pulse (Heart Rate) 97 /min [facility] 05-12-2019 06:15-0400 Pulse Oximetry 100 % [facility] [place] 05-12-2019 06:15-0400 Respiratory Rate 16 /min [facility] [place] 05-04-2019 12:47-0400 Body Temperature 96.21 [degF] [address] [facility] [place] 05-04-2019 12:47-0400 BP Diastolic 73 mm[Hg] [address] [facility] [place] , [place] 05-04-2019 12:47-0400 BP Systolic 129 mm[Hg] [address] , [place] 05-04-2019 12:47-0400 Pulse (Heart Rate) 89 /min [address], [place] 05-04-2019 12:47-0400 Respiratory Rate 20 /min [address] [facility] [place] 01-28-2019 20:45-0500 BP Diastolic 71 mm[Hg] [place], [place] 01-28-2019 20:45-0500 BP Systolic 116 mm[Hg] [place], [place] 01-28-2019 20:39-0500 Body Temperature 98.1 [degF] [facility] [place] 01-28-2019 20:39-0500 Pulse (Heart Rate) 91 /min [place], [place] 01-28-2019 20:39-0500 Pulse Oximetry 99 % [facility] , [place] 01-28-2019 20:39-0500 Respiratory Rate 20 /min [facility] [place] 12-03-2018 19:32-0400 BP Diastolic 63 mm[Hg] [facility] [place] 12-03-2018 19:32-0400 BP Systolic 134 mm[Hg] [facility] [place] 12-03-2018 19:32-0400 Pulse (Heart Rate) 95 /min [facility] 12-03-2018 19:32-0400 Respiratory Rate 16 /min [facility] [place] 12-03-2018 17:37-0400 BMI (Body Mass Index) 30.11 [facility] [place] 12-03-2018 17:37-0400 Body Temperature 97.9 [degF] [facility] 12-03-2018 17:37-0400 Body [facility] 77.[facility] [place] 12-03-2018 17:37-0400 Pulse Oximetry 99 % [facility] [place] Encounters Encounter Date Encounter Type Care Provider Facility Start: 08-30-2024 End: 08-30-2024 Bamboo flowsheet Niya Santiago JOINTER SUBMARINE CABLE Work Phone: [facility] Start: 08-30-2024 End: 08-30-2024 Bamboo flowsheet Niya Santiago JOINTER SUBMARINE CABLE Work Phone: [facility] Start: 08-30-2024 End: 08-30-2024 ambulatory NIYA SANTIAGO Not Available Start: 08-30-2024 End: 08-30-2024 Office outpatient visit 25 minutes Niya Santiago JOINTER SUBMARINE CABLE Work Phone: [facility] Comment on above: ADHD (attention defi cit hyperactivity disorder), combined type (Primary Dx); Opioid abuse, uncomplicated ([facility]-H[facility]); Mild depression ; Anxiety; Cigarette nicotine dependence without complication; Median nerve neuritis, left Start: 07-31-2024 End: 07-31-2024 Refill Niya Yokastaz JOINTER SUBMARINE CABLE Work Phone: [facility] Comment on above: ADHD (attention defi cit hyperactivity disorder), combined type (CMS/HCC) Start: 07-24-2024 End: 07-24-2024 Refill Niya Yokastaz JOINTER SUBMARINE CABLE Work Phone: [facility] Comment on above: Wheezing Start: 05-10-2024 End: 05-11-2024 Telephone encounter Craig Wade MD Work Phone: Rheumatology Comment on above: Patient Request Start: 05-08-2024 End: 05-08-2024 ambulatory NIYAJose SANTIAGO Facility:[facility] Start: 04-26-2024 End: 04-26-2024 Bamboo flowsheet Niya Jack [employer]INTER [employer]ABLE Work Phone: [facility] Start: 04-26-2024 End: 04-26-2024 Bamboo flowsheet Niya De La Rosajoe JOINTER SUBMARINE CABLE Work Phone: [facility] Start: 04-26-2024 End: 04-26-2024 ambulatory NIYA JACK Not Available Start: 04-26-2024 End: 04-26-2024 Office outpatient visit 25 minutes Niya Jack [employer]INTER SU[employer]AR[employer]ABLE Work Phone: [facility] Comment on [...] End: 03-31-2024 Patient encounter procedure Mansi Leone [facility] Comment on above: SPP Inflammatory Con ditions - Treatment Referral ([facility]); Insurance Authorization ([place] Submission Pending) Start: 03-31-2024 End: 04-04-2024 Refill Niya Jack [employer]ABLE Work Phone: [facility] Comment on above: Wheezing Start: 03-31-2024 End: 03-31-2024 ambulatory Mansi Leone [facility] Start: 03-31-2024 End: 03-31-2024 Office outpatient visit 40 minutes Craig Wade MD Work Phone: Rheumatology Comment on above: Seropositive rheumat oid arthritis (HCC) (Primary Dx); Medication monitoring encounter Start: 03-23-2024 End: 03-23-2024 Clinisync Result Encounter Niya Santiago [employer] Work Phone: [facility] Unsolicited Start: 03-23-2024 End: 03-23-2024 Clinisync Result Encounter Niya De La Rosajoe JOINTER [employer]ABLE Work Phone: [facility] Unsolicited Start: 03-01-2024 End: 03-01-2024 Bamboo flowsheet Niya De La Rosajoe JOINTER SUBMARINE CABLE Work Phone: [facility] Start: 03-01-2024 End: 03-07-2024 Bamboo flowsheet Niya De La Rosajoe JOINTER SUBMARINE CABLE Work Phone: [facility] Start: 03-01-2024 End: 03-07-2024 Clinisync Result Encounter Niya De La Rosajoe JOINTER SUBM[employer]ABLE Work Phone: [facility] Unsolicited Start: 03-01-2024 End: 03-01-2024 ambulatory NIYA ESTRELLAHOLErika Not Available Start: 03-01-2024 End: 03-01-2024 Patient encounter procedure Niya De La Rosajoe JOINTER SUBMARINE CABLE Work Phone: [facility] Start: 03-01-2024 End: 03-01-2024 Periodic preventive med est patient 40-64yrs Niya Jack JOINTER SUBMARINE CABLE Work Phone: [facility] Comment on above: Well woman exam with routine gynecological exam (Primary Dx); Rheumatoid arthritis, unspecified (CMS/HCC); Opioid abuse, uncomplicated (CMS/HCC); Tobacco user; Screening mammogram for breast cancer Start: 02-28-2024 Patient encounter procedure Niya De La Rosajoe JOINTER SUBMARINE CABLE Work Phone: [facility] Start: 02-09-2024 End: 02-09-2024 Refill Niya Jack JOINTER SUBMARINE CABLE Work Phone: [facility] Comment on above: Wheezing Start: 01-25-2024 End: 01-25-2024 ambulatory NIYA ESTRELLAHOLErika Not Available Start: 01-25-2024 End: 01-25-2024 Office outpatient visit 25 minutes Niya Santiago JOINTER SUBMARINE CABLE Work Phone: [facility] Comment on above: ADHD (attention defi cit hyperactivity disorder), combined type (CMS/HCC) (Primary Dx); Opioid abuse, uncomplicated (CMS/HCC); Tobacco user; Rheumatoid arthritis, involving unspecified site, unspecified whether rheumatoid factor present (CMS/HCC); Neutropenia, unspecified type (CMS/HCC); Mild depression (CMS/HCC); Anxiety; BMI 29.0-29.9,adult Start: 01-25-2024 End: 01-25-2024 Bamboo flowsheet Nyia Aichholz JOINTER SUBMARINE CABLE Work Phone: [facility] Start: 01-25-2024 End: 01-25-2024 Bamboo flowsheet Niya Aichholz JOINTER SUBMARINE CABLE Work Phone: [facility] Start: 12-19-2023 End: 12-20-2023 Refill Niya Jack [employer]INTER SUBM[employer]INE [employer]ABLE Work Phone: [facility] Comment on above: Wheezing Start: 10-21-2023 End: 10-21-2023 Bamboo flowsheet Niya Aichholz JOINTER SUBMARINE CABLE Work Phone: [facility] Start: 10-21-2023 End: 10-21-2023 Bamboo flowsheet Niya Aichholz JOINTER SUBMARINE CABLE Work Phone: [facility] Start: 10-21-2023 End: 10-21-2023 ambulatory NIYA AICHHOLZ Not Available Start: 10-21-2023 End: 10-21-2023 Office outpatient visit 25 minutes Niya Aichholz JOINTER SUBMARINE CABLE Work Phone: [facility] Comment on above: Adult ADHD (attentio n deficit hyperactivity disorder) (CMS/HCC) (Primary Dx); Neutropenia, unspecified (CMS/HCC); Tobacco user; BMI 29.0-29.9,adult; Rheumatoid arthritis, involving unspecified site, unspecified whether rheumatoid factor present (CMS/HCC); Anxiety; Subacute maxillary sinusitis; Wheezing; Nausea Start: 08-16-2023 Telephone encounter Fariba carey APRN.PIGMENT MIXER Work Phone: Infusion Start: 07-16-2023 ambulatory [facility] Provider Daniel wu Comment on above: Infusion Wednesday Start: 07-16-2023 E-mail encounter margarito haider caregiver [facility] Provider Rheumatology Start: 06-28-2023 ambulatory Nurse Lizbeth [facility] Work Phone: Infusion Start: 06-25-2023 Telephone encounter Fariba carey MANAGED CARE PROVIDER.PIGMENT MIXER Work Phone: Infusion Start: 06-21-2023 ambulatory [facility] Provider Infusion Comment on above: Infusion Wednesday Start: 06-21-2023 E-mail encounter margarito haider caregiver [facility] Provider Infusion Start: 06-20-2023 Orders Only Fariba Hill APRN.PIGMENT MIXER Work Phone: Rheumatology Start: 05-28-2023 Telephone encounter Fariba carey MANAGED CARE PROVIDER.PIGMENT MIXER Work Phone: Infusion Start: 05-26-2023 End: 05-26-2023 ambulatory TINO CARRANZAIDGE Facility:[facility] Start: 05-26-2023 End: 05-26-2023 Office outpatient visit 15 minutes Silvia Cooper APRN.PIGMENT MIXER Work Phone: [facility] Comment on above: Wheezing (Primary Dx ) Start: 05-26-2023 End: 05-26-2023 Patient encounter procedure Fariba Hill APRN.PIGMENT MIXER Work Phone: Rheumatology Comment on above: Seropositive rheumat oid arthritis (HCC) (Primary Dx); Synovitis; Vitamin D deficiency; Localized superficial swelling, mass, or lump; Encounter to discuss test results; Encounter for medication review and counseling; Medication monitoring encounter Start: 05-26-2023 End: 05-26-2023 ambulatory Lizbeth Chair 7 [place] Work Phone: Infusion Comment on above: Seropositive rheumat oid arthritis (HCC) (Primary Dx); Vitamin D deficiency Start: 05-24-2023 ambulatory [facility] Provider Infusion Comment on above: Infusion Wednesday Start: 05-24-2023 E-mail encounter margarito m caregiver [facility] Start: 05-14-2023 Telephone encounter Corinna Kc ( Coord) Radiology Comment on above: Appointment Start: 04-28-2023 End: 04-28-2023 Patient encounter procedure Fariba Hill APRN.PIGMENT MIXER Work Phone: Rheumatology Comment on above: Seropositive rheumat oid arthritis (HCC) (Primary Dx); Localized superficial swelling, mass, or lump; Encounter for medication review and counseling; Synovitis; Encounter to discuss test results; Medication monitoring encounter; Smoker Start: 04-28-2023 Telephone encounter Fariba carey APRN.PIGMENT MIXER Work Phone: Infusion Start: 04-28-2023 End: 04-28-2023 ambulatory Rheu Chair 9 [place] Work Phone: Infusion Comment on above: Seropositive rheumat oid arthritis (HCC) (Primary Dx) Start: 04-25-2023 Orders Only Fariba Hill APRN.PIGMENT MIXER Work Phone: Rheumatology Start: 04-20-2023 Telephone encounter [...] encounter fro m caregiver [facility] Provider [facility] Start: 03-28-2023 Orders Only Fariba Hill APRN.PIGMENT MIXER Work Phone: Rheumatology Start: 02-16-2023 Telephone encounter Fariba carey APRN.PIGMENT MIXER Work Phone: Infusion Start: 02-01-2023 Telephone encounter Nurse Lizbeth [facility] Work Phone: Infusion Start: 01-29-2023 Orders Only Fariba Hill APRN.PIGMENT MIXER Work Phone: Rheumatology Comment on above: Infusion 02/13 Start: 11-29-2023 Telephone encounter Fariba carey APRN.PIGMENT MIXER Work Phone: Rheumatology Comment on above: Medication Problem Start: 01-20-2023 End: 01-20-2023 Patient encounter procedure Fariba Hill APRN.PIGMENT MIXER Work Phone: Rheumatology Comment on above: Seropositive [...] Dx) Start: 12-30-2022 Orders Only Fariba Hill APRN.PIGMENT MIXER Work Phone: Rheumatology Start: 12-29-2022 ambulatory [facility] Provider Infusion Comment on above: Infusion Start: 12-29-2022 E-mail encounter margarito haider caregiver [facility] Provider [facility] Start: 12-17-2022 Telephone encounter Fariba carey APRN.PIGMENT MIXER Work Phone: Rheumatology Comment on above: Results Start: 12-14-2022 Telephone encounter Fariba carey APRN.PIGMENT MIXER Work Phone: [facility] [place] Comment on above: Lab Orders Start: 12-11-2022 Telephone encounter Fariba carey APRN.PIGMENT MIXER Work Phone: Rheumatology Comment on above: Results Start: 11-27-2022 End: 11-27-2022 ambulatory Rheu Chair 9 [place] Work Phone: Infusion Comment on above: Seropositive rheumat oid arthritis (HCC) (Primary Dx) Start: 11-25-2022 [facility] Work Phone: Infusion Start: 11-11-2022 Telephone encounter Tino Blake MD Work Phone: [place] Start: 10-22-2022 End: 10-22-2022 ambulatory Rheu Chair 7 [place] Work Phone: Infusion Comment on above: Seropositive rheumat oid arthritis (HCC) (Primary Dx); Vitamin D deficiency; Synovitis Start: 10-22-2022 End: 10-22-2022 Patient encounter procedure Fariba Hill APRN.PIGMENT MIXER Work Phone: Rheumatology Comment on above: Seropositive rheumat oid arthritis (HCC) (Primary Dx); Synovitis; Vitamin D deficiency; Encounter for monitoring leflunomide therapy; Encounter for medication review and counseling; Encounter to discuss test results; Counseling on health promotion and disease prevention; Smoker Start: 10-20-2022 ambulatory [facility] Provider Infusion Comment on above: Infusion Start: 10-20-2022 E-mail encounter fro m caregiver [facility] Provider [facility] Start: 09-17-2022 End: 09-17-2022 ambulatory Rheu Chair 8 [place] Work Phone: Infusion Comment on above: Seropositive rheumat oid arthritis (HCC) (Primary Dx) Start: 09-15-2022 ambulatory Fariba Hill APRN.PIGMENT MIXER Work Phone: Infusion Comment on above: Infusion for 09/17/22 Start: 09-15-2022 E-mail encounter fro m caregiver Fariba Hill APRN.PIGMENT MIXER Work Phone: [facility] Start: 08-31-2022 Orders Only Fariba Hill APRN.PIGMENT MIXER Work Phone: Rheumatology Start: 08-05-2022 Telephone encounter Juan Daniel Mcarthur MD Work Phone: [facility] Comment on above: Insurance Authorizat ion (Prior Auth Delayed: P2P requested for [place]) Start: 07-24-2022 Orders Only Fariba Hill APRN.PIGMENT MIXER Work Phone: Rheumatology Start: 06-23-2022 End: 06-23-2022 ambulatory Rheu Chair 5 [place] Work Phone: Infusion Comment on above: Seropositive rheumat oid arthritis (HCC) (Primary Dx); Vitamin D deficiency Start: 06-22-2022 ambulatory Fariba Hill APRN.PIGMENT MIXER Work Phone: Infusion Comment on above: Infusion Confirmatio n Start: 06-22-2022 E-mail encounter fro m caregiver Fariba Hill APRN.PIGMENT MIXER Work Phone: [facility] Start: 04-28-2022 End: 04-28-2022 ambulatory Fariba Hill APRN.PIGMENT MIXER Work Phone: Rheumatology Comment on above: Seropositive rheumat oid arthritis (HCC) (Primary Dx) Start: 04-28-2022 End: 04-28-2022 Telemedicine consultation with patient Fariba Haider Monika FIGUEROA.PIGMENT MIXER Work Phone: [facility] Start: 04-15-2022 Orders Only Fariba Hill APRN.PIGMENT MIXER Work Phone: Rheumatology Comment on above: Results [...] End: 04-14-2022 Patient encounter procedure Fariba Hill APRN.PIGMENT MIXER Work Phone: Rheumatology Comment on above: Seropositive rheumat oid arthritis (HCC) (Primary Dx); Vitamin D deficiency; Smoker; Pain in left foot; Encounter for medication review and counseling; Encounter to discuss test results; Encounter for monitoring leflunomide therapy; Counseling on health promotion and disease prevention; High risk medication use Start: 04-10-2022 Orders Only Fariba Hill APRN.PIGMENT MIXER Work Phone: Rheumatology Start: 03-07-2022 Refill Fariba Hill APRN.PIGMENT MIXER Work Phone: Rheumatology Comment on above: Refill Request Start: 02-25-2022 Telephone encounter Fariba carey APRN.PIGMENT MIXER Work Phone: Rheumatology Comment on above: Results Start: 02-24-2022 End: 02-24-2022 Subsequent hospital visit by physician Jessica [facility] Radiology Comment on above: Left without seen Start: 02-24-2022 End: 02-24-2022 ambulatory Rheu Chair 7 [place] Work Phone: Infusion Comment on above: Seropositive rheumat oid arthritis (HCC) (Primary Dx) Start: 02-20-2022 Telephone encounter Fariba carey APRN.PIGMENT MIXER Work Phone: Infusion Comment on above: Patient Question Start: 02-03-2022 ambulatory Pcp (Historical) [facility] Start: 01-30-2022 Orders Only Fariba Hill APRN.PIGMENT MIXER Work Phone: Rheumatology Start: 01-26-2022 Telephone encounter Juan Daniel Mcarthur MD Work Phone: [facility] Comment on above: Insurance Authorizat ion (Prior auth delayed: Additional Info Needed ([employer])) Start: 01-06-2022 [facility] Comment on above: Smoking Cessation Patient Update Start: 01-05-2022 End: 01-05-2022 ambulatory Rheu Chair 2 [place] Work Phone: Infusion Comment on above: Vitamin D deficiency (Primary Dx); Seropositive rheumatoid arthritis (HCC) Start: 01-05-2022 End: 01-05-2022 Patient encounter procedure Fariba Hill APRN.PIGMENT MIXER Work Phone: Rheumatology Comment on above: Seropositive rheumat oid arthritis (HCC) (Primary Dx); Smoker; Pain in left foot; Encounter for medication review and counseling; Encounter to discuss test results; Encounter for monitoring leflunomide therapy; Counseling on health promotion and disease prevention; High risk medication use; Rheumatoid arthritis flare (HCC) Start: 01-02-2022 ambulatory Fariba Hill APRN.PIGMENT MIXER Work Phone: Infusion Comment on above: Infusion for tomorro w. Start: 01-02-2022 E-mail encounter fro m caregiver Fariba Hill APRN.PIGMENT MIXER Work Phone: [facility] Start: 01-02-2022 Telephone encounter Fariba carey APRN.PIGMENT MIXER Work Phone: Infusion Comment on above: Patient Question Start: 12-16-2021 Orders Only Fariba Hill APRN.PIGMENT MIXER Work Phone: Rheumatology Start: 12-15-2021 Telephone encounter Fariba carey APRN.PIGMENT MIXER Work Phone: Infusion Start: 11-13-2021 End: 11-13-2021 ambulatory Rheu Chair 5 [place] Work Phone: Infusion Comment on above: Seropositive rheumat oid arthritis (HCC) (Primary Dx); Vitamin D deficiency Start: 11-11-2021 ambulatory Fariba Hill APRN.PIGMENT MIXER Work Phone: Infusion Comment on above: Infusion for tomorro w Start: 11-11-2021 E-mail encounter fro m caregiver Fariba Hill APRN.PIGMENT MIXER Work Phone: [facility] Start: 11-11-2021 Telephone encounter Fariba carey APRN.PIGMENT MIXER Work Phone: Infusion Comment on above: Patient Question Start: 11-06-2021 Orders Only Fariba Hill APRN.PIGMENT MIXER Work Phone: Rheumatology Start: 11-03-2021 End: 11-04-[address] NONE LISTED REQUEST Facility: Start: 10-30-2021 Orders Only Fariba Hill APRN.PIGMENT MIXER Work Phone: Rheumatology Start: 10-29-2021 End: 10-29-2021 ambulatory Fariba Hill APRN.PIGMENT MIXER Work Phone: Rheumatology Comment on above: Seropositive [...] 10-29-2021 Telemedicine consultation with patient Fariba Hill APRN.PIGMENT MIXER Work Phone: [facility] Start: 10-28-2021 Telephone encounter Fariba carey MANAGED CARE PROVIDER.PIGMENT MIXER Work Phone: Infusion Start: 10-24-2021 Orders Only Fariba Hill MANAGED CARE PROVIDER.PIGMENT MIXER Work Phone: Rheumatology Start: 10-07-2021 End: 10-07-[address] NONE LISTED REQUEST Facility:[facility] Start: 09-05-2021 Encounter for preprocedural laboratory examination DR PATRICIO RAM . [facility] Start: 09-05-2021 End: 09-05-[address] [...] Facility:[facility] Start: 09-01-2021 Telephone encounter Fariba carey MANAGED CARE PROVIDER.PIGMENT MIXER Work Phone: Infusion Comment on above: Question Start: 08-15-2021 End: 08-15-2021 ambulatory ADRIANA STEPHENS Facility:[facility] Start: 08-07-2021 Telephone encounter Fariba carey MANAGED CARE PROVIDER.PIGMENT MIXER Work Phone: Rheumatology Comment on above: Results [...] End: 07-23-2021 Patient encounter procedure Fariba Hill APRN.PIGMENT MIXER Work Phone: Rheumatology Comment on above: Seropositive rheumat oid arthritis (HCC) (Primary Dx); Medication monitoring encounter; H/O noncompliance with medical treatment, presenting hazards to health; Encounter for medication review and counseling; Encounter to discuss test results; Counseling on health promotion and disease prevention; Encounter for monitoring leflunomide therapy Start: 07-22-2021 Telephone encounter Fariba carey MANAGED CARE PROVIDER.PIGMENT MIXER Work Phone: Infusion Comment on above: Question; Return Pro vider Call Start: 07-15-2021 Telephone encounter Fariba carey APRN.PIGMENT MIXER Work Phone: Rheumatology Comment on above: Appointment Start: 07-11-2021 End: 07-11-2021 Emergency department patient visit [facility] Start: 07-08-2021 Telephone encounter Fariba carey APRN.PIGMENT MIXER Work Phone: [facility] Comment on above: Insurance Authorizat ion (Prior Auth Delayed: Additional Info needed for [employer]) Start: 07-04-2021 Orders Only Juan Daniel sanchez MD Work Phone: Rheumatology Start: 06-24-2021 Telephone encounter Fariba carey APRN.PIGMENT MIXER Work Phone: Rheumatology Comment on above: Medication Problem Start: 06-17-2021 Telephone encounter Fariba carey MANAGED CARE PROVIDER.PIGMENT MIXER Work Phone: Rheumatology Comment on above: Results Start: 09-15-2020 End: 09-15-2020 Emergency department patient visit [facility] Start: 09-15-2020 End: 09-15-2020 Emergency department patient visit [facility] ED Comment on above: Pneumonia of both tyra ngs due to infectious organism, unspecified part of lung (Primary Dx) Start: 03-15-2020 End: 03-15-2020 Emergency department patient visit [facility] ED Comment on above: Suspected COVID-19 v irus infection (Primary Dx) Start: 07-11-2019 End: 07-13-2019 Evaluation and management of inpatient Tosha Viera Work Phone: [facility] Labor and Delivery Start: 07-06-2019 End: 07-06-2019 Subsequent hospital visit by physician [facility] Laboratory Comment on above: 38 weeks gestation o f Start: 05-12-2019 End: 05-12-2019 Emergency department patient visit M[facility] Mayo Work Phone: [facility] ED Comment on above: Superficial thrombop hlebitis of left upper extremity (Primary Dx) Start: 05-04-2019 End: 05-04-2019 Subsequent hospital visit by physician [facility] Op Treatment [address] [facility] Start: 05-03-2019 End: 05-03-2019 Subsequent hospital visit by physician [facility] Treatment [address] [facility] Comment on above: Canceled (Patient) Start: 05-02-2019 End: 05-02-2019 Subsequent hospital visit by physician [facility] Treatment [address] [facility] Comment on above: Canceled (Patient) Start: 05-01-2019 End: 05-01-2019 Subsequent hospital visit by physician [facility] Laboratory Comment on above: Encounter for superv ision of other normal in third trimester; 29 weeks gestation of Start: 04-04-2019 End: 04-04-2019 Subsequent hospital visit by physician [facility] Laboratory Comment on above: Acute nasopharyngiti s Start: 2019 End: 02-19-2019 Subsequent hospital visit by physician [facility] Ultrasound Comment on above: Right upper quadrant abdominal pain Start: 01-28-2019 End: 01-28-2019 Emergency department patient visit [facility] ED Comment on above: Carpal tunnel syndro me of right wrist (Primary Dx) Start: 01-16-2019 End: 01-16-2019 Subsequent hospital visit by physician [facility] Laboratory Comment on above: Screening for cervic al cancer Start: 12-19-2018 End: 12-19-2018 Subsequent hospital visit by physician [facility] Laboratory Comment on above: Encounter for superv ision of normal in first trimester, unspecified ; Screening for cystic fibrosis; Screening, , for anatomic survey Start: 12-03-2018 End: 12-03-2018 Emergency department patient visit [facility] ED Comment on above: Threatened miscarria ge (Primary Dx); Yeast infection Procedures Date Procedure Procedure Detail Performing Clinician Start: 03-23-2024 MM TOMOSYNTHESIS SCR EENING BI Niya Santiago JOINTER SU[employer]ABLE Work Phone: Start: 03-23-2024 Mammography Niya noble JOINTER SUBMARINE CABLE Work Phone: Start: 03-01-2024 IGP,APTIMA HPV,AGE GDLN Niya Santiago JOINTER SUBMARINE CABLE Work Phone: Start: 03-01-2024 Microscopic observat ion [Identifier] in Cervix by Cyto stain Niya Santiago JOINTER SUBMARINE CABLE Work Phone: Start: 05-26-2023 C-reactive protein Fariba Hill MANAGED CARE PROVIDER.PIGMENT MIXER Work Phone: Start: 05-26-2023 CREATININE BLD Fariba iverson MANAGED CARE PROVIDER.PIGMENT MIXER Work Phone: Start: 05-26-2023 Transferase alanine amino alt sgpt Fariba Hill MANAGED CARE PROVIDER.PIGMENT MIXER Work Phone: Start: 11-27-2022 Blood count complete auto&auto difrntl wbc Fariba Hill MANAGED CARE PROVIDER.PIGMENT MIXER Work Phone: Start: 11-27-2022 C-reactive protein Fariba Hill MANAGED CARE PROVIDER.PIGMENT MIXER Work Phone: Start: 10-22-2022 Blood count complete auto&auto difrntl wbc Fariba Hill MANAGED CARE PROVIDER.PIGMENT MIXER Work Phone: Start: 10-22-2022 C-reactive protein Fariba Hill MANAGED CARE PROVIDER.PIGMENT MIXER Work Phone: Start: 06-23-2022 Blood count complete auto&auto difrntl wbc Fariba Hill MANAGED CARE PROVIDER.PIGMENT MIXER Work Phone: Start: 02-24-2022 Blood count complete auto&auto difrntl wbc Fariba Hill MANAGED CARE PROVIDER.PIGMENT MIXER Work Phone: Start: 02-24-2022 C-reactive protein Fariba Hill APRN.[facility] Work Phone: Start: 01-05-2022 25 hydroxy includes fractions if performed Fariba Hill APRN.PIGMENT MIXER Work Phone: Start: 09-03-2021 Urine test visual color cmprsn meths Fariba Hill APRN.PIGMENT MIXER Work Phone: Start: 08-06-2021 Urine test visual color cmprsn meths Fariba Hill APRN.PIGMENT MIXER Work Phone: Start: 07-23-2021 Urine test visual color cmprsn meths Fariba Haider Monika MANAGED CARE PROVIDER.[facility] Work Phone: Start: 09-15-2020 Radiologic exam ches t 2 views Loida Caro PA-C Work Phone: Start: 07-11-2019 Blood count complete auto&auto difrntl wbc Tosha Almazanansley Viera Work Phone: Start: 07-11-2019 Drug screen class list a Tosha Tanisha Viera Work Phone: Start: 05-01-2019 Blood count hemoglobin Tosha Almazanansley Viera Work Phone: Start: 05-01-2019 Blood typing serolog ic rh (d) Tosha Tanisha Viera Work Phone: Start: 05-01-[address] gtt 3 specimens Tosha Tanisha Viera Work Phone: Start: 04-04-2019 Iaadiadoo influenza Elda ashley Tanisha Viera Work Phone: Start: 2019 Us abdominal real ti me w/image limited Toshagabi Viera MANAGED CARE PROVIDER - CNM Work Phone: Start: 01-16-2019 Microscopic observat ion [Identifier] in Cervix by Cyto stain Niya Santiago [employer]INTER SUBMARINE CABLE Work Phone: Start: 12-19-2018 Antibody screen Start: 12-19-2018 Obstetric panel Tosha Viera Work Phone: Start: 12-19-2018 Blood typing serologic abo Tosha Viera Work Phone: Start: 12-19-2018 Drug screen, qualitate/multi Tosha Viera Work Phone: Start: 12-03-2018 Urinalysis microscopic only [employer] Work Phone: Start: 12-03-2018 Urnls dip stick/tabl et rgnt auto w/o microscopy [employer] Work Phone: Start: 12-03-2018 Smr prim src wet jude nt nfct agt [employer] Work Phone: Start: 12-03-2018 Blood count complete automated [employer] Work Phone: Start: 12-03-2018 Blood typing serologic abo [employer] Work Phone: Start: 12-03-2018 Comprehensive metabo lic panel [employer] Work Phone: Start: 12-03-2018 Gonadotropin chorion ic quantitative [employer] Work Phone: Start: 12-30-2017 Adult depression scr eening assessment Juan Daniel Leos MD Work Phone: Plan of Treatment Date Care Activity Detail Author Start: 06-03-2031 Urine microalbumin profile [facility] Start: 03-01-2027 Screening for malignant neoplasm of cervix [facility] Start: 03-23-2025 Screening for malignant neoplasm of breast [facility] Start: 08-24-2024 End: 08-24-2024 Patient encounter procedure 08/24/2024 9:20 AM EDT Office Visit [facility] [address] [place] [id number] Niya Santiago NP [address] [place] [id number] [facility] Start: 08-04-2024 End: 08-04-2024 Patient encounter procedure 08/04/2024 9:00 AM EDT Office Visit Rheumatology [address] [facility] [place] [address] Craig Wade MD [address] [place] [address] Return in about 3 months (around 06/28/2024). Rheumatology Comment on above: Return in about 3 months (around ). Start: 07-27-2024 End: 07-27-2024 Patient encounter procedure 07/27/2024 9:00 AM EDT Office Visit [facility] [address] [place] [address] Niya Santiago NP [address] [place] [phone] [facility] Start: 04-26-2024 End: 04-26-2024 Patient encounter procedure 04/26/2024 1:00 PM EST [facility] [address] [place] [address] Niya Santiago NP [address] [place] [address] [facility] Start: 04-03-2024 End: 07-03-2024 BLOOD TB SCREEN BLOOD TB SCREEN Lab Routine Seropositive rheumatoid arthritis (HCC) Expected: 04/03/2024, Expires: 07/03/2024 [facility] Comment on above: Expected: 04/03/2024, Expires: Start: 04-03-2024 End: 07-03-2024 Hepatitis B virus core Ab [Presence] in Serum HEPATITIS B CORE ANTIBODY TOTAL Lab Routine Seropositive rheumatoid arthritis (HCC) Expected: 04/03/2024, Expires: 07/03/2024 [facility] Comment on above: Expected: 04/03/2024, Expires: Start: 04-03-2024 End: 07-03-2024 Hepatitis B virus surface Ab [Presence] in Serum HEPATITIS B SURFACE ANTIBODY Lab Routine Seropositive rheumatoid arthritis (HCC) Expected: 04/03/2024, Expires: 07/03/2024 [facility] Work Phone: Comment on above: Expected: 04/03/2024, Expires: Start: 04-03-2024 End: 07-03-2024 Hepatitis B virus surface Ag [Presence] in Serum HEPATITIS B SURFACE ANTIGEN Lab Routine Seropositive rheumatoid arthritis (HCC) Expected: 04/03/2024, Expires: 07/03/2024 [facility] Comment on above: Expected: 04/03/2024, Expires: Start: 04-03-2024 End: 07-03-2024 Hepatitis C virus Ab [Presence] in Serum HEPATITIS C ANTIBODY IA WITH CONFIRMATION Lab Routine Seropositive rheumatoid arthritis (HCC) Expected: 04/03/2024, Expires: 07/03/2024 [facility] Comment on above: Expected: 04/03/2024, Expires: Start: 03-31-2024 End: 06-30-2024 C reactive protein [Mass/volume] in Serum or Plasma C-REACTIVE PROTEIN Lab Routine Seropositive rheumatoid arthritis (HCC) Expected: 03/31/2024, Expires: 06/30/2024 [facility] Comment on above: Expected: 03/31/2024, Expires: Start: 03-31-2024 End: 06-30-2024 CBC W Auto Differential panel - Blood COMPLETE BLOOD COUNT AND DIFFERENTIAL Lab Routine Seropositive rheumatoid arthritis (HCC) Expected: 03/31/2024, Expires: 06/30/2024 [facility] Comment on above: Expected: 03/31/2024, Expires: Start: 03-31-2024 End: 06-30-2024 Comprehensive metabolic 2000 panel - Serum or Plasma COMPREHENSIVE METABOLIC PANEL Lab Routine Seropositive rheumatoid arthritis (HCC) Expected: 03/31/2024, Expires: 06/30/2024 [facility] Work Phone: Comment on above: Expected: 03/31/2024, Expires: Start: 03-31-2024 End: 06-30-2024 Erythrocyte sedimentation rate SEDIMENTATION RATE, WESTERGREN Lab Routine Seropositive rheumatoid arthritis (HCC) Expected: 03/31/2024, Expires: 06/30/2024 [facility] Comment on above: Expected: 03/31/2024, Expires: Start: 02-28-2024 End: 02-28-2024 Patient encounter procedure 02/28/2024 10:30 AM EST Procedure Visit [facility] [address] [place] [address] Niya Santiago, MARY [address] [place] [address] [facility] Start: 2024 Screening for malignant neoplasm of breast Mammogram [facility] Start: 01-18-2024 End: 01-18-2024 Patient encounter procedure 01/18/2024 9:40 AM EST Office Visit [facility] [address] [place] [address] Niya Santiago, JOINTER SUBMARINE CABLE [address] [place] [address] [facility] Start: 01-17-2024 Cervical cancer screen Cervical cancer screen [place], [place] Start: 01-17-2024 Screening for malignant neoplasm of cervix [facility] Start: 11-10-2023 End: 11-10-2023 ambulatory 11/10/2023 11:30 AM EDT Infusion Center Infusion [address] [place] [address] [facility] Comment on above: [facility] Start: 11-10-2023 End: 11-10-2023 Patient encounter procedure 11/10/2023 11:00 AM EDT Office Visit Rheumatology [address] [place] [address] Fariba Hill, MANAGED CARE PROVIDER.PIGMENT MIXER [address] [place] [address] Add on per Fariba Hill Rheumatology Comment on above: Add on per Fariab Hill Start: 10-29-2023 End: 10-29-2023 ambulatory 10/29/2023 7:30 AM EDT Infusion Center Infusion [address] [place] [address] [facility] Comment on above: [facility] Start: 10-24-2023 Influenza vaccination [facility] Start: 10-21-2023 End: 10-20-2024 CBC W Auto Differential panel - Blood CBC and differential Lab Routine Neutropenia, unspecified (CMS/HCC) Expected: 10/21/2023 (Approximate), Expires: 10/20/2024 [facility] Work Phone: Comment on above: Expected: 10/21/2023 (Approximate), Expi res: 10/20/2024 Start: 10-13-2023 End: 10-13-2023 ambulatory 10/13/2023 11:30 AM EDT Infusion Center Infusion [address] [facility] [place] [address] [facility] Comment on above: [facility] Start: 10-13-2023 End: 10-13-2023 Patient encounter procedure 10/13/2023 11:00 AM EDT Office Visit Rheumatology [address] [facility] [place] [address] Fariba Hill, MANAGED CARE PROVIDER.PIGMENT MIXER [address] [facility] [place] [address] Add on per Fariba Hill Rheumatology Comment on above: Add on per Fariba Hill Start: 10-01-2023 End: 10-01-2023 ambulatory 10/01/2023 1:30 PM EDT Infusion Center Infusion [address] [place] [address] [facility] Comment on above: [facility] Start: 09-15-2023 End: 09-15-2023 Patient encounter procedure 09/15/2023 1:00 PM EDT Office Visit Rheumatology [address] [facility] [place] [address] Fariba Hill, MANAGED CARE PROVIDER.PIGMENT MIXER [address] [facility] [place] [address] Add on per Fariba Hill Rheumatology Comment on above: Add on per Fariba Hill Start: 09-03-2023 End: 09-03-2023 ambulatory 09/03/2023 7:30 AM EDT Infusion Center Infusion [address] [facility] [place] [address] [facility] Comment on above: [facility] Start: 08-18-2023 End: 08-18-2023 ambulatory 08/18/2023 11:30 AM EDT Infusion Center Infusion [address] [facility] [place] [address] [facility] Comment on above: [facility] Start: 07-21-2023 End: 07-21-2023 Patient encounter procedure 07/21/2023 1:00 PM EDT Office Visit Rheumatology [address] [facility] [place] [address] Fariba Hill, MANAGED CARE PROVIDER.PIGMENT MIXER [address] [facility] [place] [address] Add on per Fariba Hill Rheumatology Comment on above: Add on marizol Hill Start: 07-21-2023 End: 07-21-2023 ambulatory 07/21/2023 11:30 AM EDT Infusion Center Infusion [address] [facility] [place] [address] [facility] Comment on above: [facility] Start: 06-23-2023 End: 06-23-2023 ambulatory Infusion Comment on above: [facility] Needs to be at work at 2:00 Start: 06-23-2023 End: 06-23-2023 Patient encounter procedure 06/23/2023 10:30 AM EDT Office Visit Rheumatology [address] [facility] [place] [address] Fariba Hill, MANAGED CARE PROVIDER.PIGMENT MIXER [address] [facility] [place] [address] Add on per Fariba Hill Rheumatology Comment on above: Add on per Fariba Hill Start: 02-22-2023 Behavioral Health Screening Behavioral Health Screening [facility] Start: 02-22-2023 Depression Assessment Depression Assessment [facility] Start: 01-18-2023 End: 04-19-2023 Alanine aminotransferase [Enzymatic activity/volume] in Serum or Plasma ALT/SGPT Lab Routine Seropositive rheumatoid arthritis (HCC) Expected: 01/18/2023 (Approximate), Expires: 04/19/2023 [facility] Work Phone: Comment on above: Expected: 01/18/2023 (Approximate), Expi res: 04/19/2023 Start: 01-18-2023 End: 04-19-2023 Aspartate aminotransferase [Enzymatic activity/volume] in Serum or Plasma AST/SGOT BLD Lab Routine Seropositive rheumatoid arthritis (HCC) Expected: 01/18/2023 (Approximate), Expires: 04/19/2023 [facility] Work Phone: Comment on above: Expected: 01/18/2023 (Approximate), Expi res: 04/19/2023 Start: 01-18-2023 End: 04-19-2023 CBC W Auto Differential panel - Blood CBC + DIFF Lab Routine Seropositive rheumatoid arthritis (HCC) Expected: 01/18/2023 (Approximate), Expires: 04/19/2023 [facility] Work Phone: Comment on above: Expected: 01/18/2023 (Approximate), Expi res: 04/19/2023 Start: 01-18-2023 End: 04-19-2023 CREATININE BLD CREATININE BLD Lab Routine Seropositive rheumatoid arthritis (HCC) Expected: 01/18/2023 (Approximate), Expires: 04/19/2023 [facility] Work Phone: Comment on above: Expected: 01/18/2023 (Approximate), Expi res: 04/19/2023 Start: 12-12-2022 End: 02-11-2023 C reactive protein [Mass/volume] in Serum or Plasma C-REACTIVE PROTEIN (CRP) Lab Routine Seropositive rheumatoid arthritis (HCC) Expected: 12/12/2022 (Approximate), Expires: 02/11/2023 [facility] Work Phone: Comment on above: Expected: 12/12/2022 (Approximate), Expi res: 02/11/2023 Start: 12-12-2022 End: 02-11-2023 CBC W Auto Differential panel - Blood CBC + DIFF Lab Routine Seropositive rheumatoid arthritis (HCC) Expected: 12/12/2022 (Approximate), Expires: 02/11/2023 [facility] Work Phone: Comment on above: Expected: 12/12/2022 (Approximate), Expi res: 02/11/2023 Start: 12-12-2022 End: 02-11-2023 Comprehensive metabolic 2000 panel - Serum or Plasma COMP METABOLIC PANEL Lab Routine Seropositive rheumatoid arthritis (HCC) Expected: 12/12/2022 (Approximate), Expires: 02/11/2023 [facility] Work Phone: Comment on above: Expected: 12/12/2022 (Approximate), Expi res: 02/11/2023 Start: 12-12-2022 End: 02-11-2023 Erythrocyte sedimentation rate SED RATE WESTERGREN Lab Routine Seropositive rheumatoid arthritis (HCC) Expected: 12/12/2022 (Approximate), Expires: 02/11/2023 [facility] Work Phone: Comment on above: Expected: 12/12/2022 (Approximate), Expi res: 02/11/2023 Start: 12-11-2022 End: 03-12-2023 Alanine aminotransferase [Enzymatic activity/volume] in Serum or Plasma ALT/SGPT Lab Routine Seropositive rheumatoid arthritis (HCC) Expected: 12/11/2022, Expires: 03/12/2023 [facility] Work Phone: Comment on above: Expected: 12/11/2022, Expires: Start: 12-11-2022 End: 03-12-2023 Aspartate aminotransferase [Enzymatic activity/volume] in Serum or Plasma AST/SGOT BLD Lab Routine Seropositive rheumatoid arthritis (HCC) Expected: 12/11/2022, Expires: 03/12/2023 [facility] Work Phone: Comment on above: Expected: 12/11/2022, Expires: Start: 10-23-2022 Influenza vaccination [facility] Start: 06-13-2022 End: 08-13-2022 25-hydroxyvitamin D3 [Mass/volume] in Serum or Plasma VITAMIN D 25 HYDROXY Lab Routine Vitamin D deficiency Expected: 06/13/2022 (Approximate), Expires: 08/13/2022 [facility] Work Phone: Comment on above: Expected: 06/13/2022 (Approximate), Expi res: 08/13/2022 Start: 06-12-2022 End: 08-12-2022 C reactive protein [Mass/volume] in Serum or Plasma C-REACTIVE PROTEIN (CRP) Lab Routine Seropositive rheumatoid arthritis (HCC) Expected: 06/12/2022 (Approximate), Expires: 08/12/2022 [facility] Work Phone: Comment on above: Expected: 06/12/2022 (Approximate), Expi res: 08/12/2022 Start: 06-12-2022 End: 08-12-2022 CBC W Auto Differential panel - Blood CBC + DIFF Lab Routine Seropositive rheumatoid arthritis (HCC) Expected: 06/12/2022 (Approximate), Expires: 08/12/2022 [facility] Work Phone: Comment on above: Expected: 06/12/2022 (Approximate), Expi res: 08/12/2022 Start: 06-12-2022 End: 08-12-2022 Comprehensive metabolic 2000 panel - Serum or Plasma COMP METABOLIC PANEL Lab Routine Seropositive rheumatoid arthritis (HCC) Expected: 06/12/2022 (Approximate), Expires: 08/12/2022 [facility] Work Phone: Comment on above: Expected: 06/12/2022 (Approximate), Expi res: 08/12/2022 Start: 06-12-2022 End: 08-12-2022 Erythrocyte sedimentation rate SED RATE WESTERGREN Lab Routine Seropositive rheumatoid arthritis (HCC) Expected: 06/12/2022 (Approximate), Expires: 08/12/2022 [facility] Work Phone: Comment on above: Expected: 06/12/2022 (Approximate), Expi res: 08/12/2022 Start: 04-14-2022 End: 06-14-2022 25-hydroxyvitamin D3 [Mass/volume] in Serum or Plasma [facility] Work Phone: Comment on above: Expected: 04/14/2022, Expires: 3 Start: 02-22-2022 DEPRESSION ASSESSMENT DEPRESSION ASSESSMENT [facility] Start: 01-16-2022 Screening for malignant neoplasm of cervix Pap Smear [facility] Start: 11-12-2021 End: 01-12-2022 25-hydroxyvitamin D3 [Mass/volume] in Serum or Plasma VITAMIN D 25 HYDROXY Lab Routine Vitamin D deficiency Expected: 11/12/2021, Expires: 01/12/2022 [facility] Work Phone: Comment on above: Expected: 11/12/2021, Expires: 2 Start: 11-12-2021 End: 01-12-2022 C reactive protein [Mass/volume] in Serum or Plasma C-REACTIVE PROTEIN (CRP) Lab Routine Seropositive rheumatoid arthritis (HCC) Expected: 11/12/2021, Expires: 01/12/2022 [facility] Work Phone: Comment on above: Expected: 11/12/2021, Expires: 2 Start: 11-12-2021 End: 01-12-2022 CBC W Auto Differential panel - Blood CBC + DIFF Lab Routine Seropositive rheumatoid arthritis (HCC) Expected: 11/12/2021, Expires: 01/12/2022 [facility] Work Phone: Comment on above: Expected: 11/12/2021, Expires: 2 Start: 11-12-2021 End: 01-12-2022 Comprehensive metabolic 2000 panel - Serum or Plasma COMP METABOLIC PANEL Lab Routine Seropositive rheumatoid arthritis (HCC) Expected: 11/12/2021, Expires: 01/12/2022 [facility] Work Phone: Comment on above: Expected: 11/12/2021, Expires: 2 Start: 11-12-2021 End: 01-12-2022 Erythrocyte sedimentation rate SED RATE WESTERGREN Lab Routine Seropositive rheumatoid arthritis (HCC) Expected: 11/12/2021, Expires: 01/12/2022 [facility] Work Phone: Comment on above: Expected: 11/12/2021, Expires: 2 Start: 10-23-2021 Influenza vaccination [facility] Start: 09-06-2021 End: 11-06-2021 25-hydroxyvitamin D3 [Mass/volume] in Serum or Plasma VITAMIN D 25 HYDROXY Lab Routine Vitamin D deficiency Expected: 09/06/2021 (Approximate), Expires: 11/06/2021 [facility] Work Phone: Comment on above: Expected: 09/06/2021 (Approximate), Expi res: 11/06/2021 Start: 09-06-2021 End: 11-06-2021 Comprehensive metabolic 2000 panel - Serum or Plasma COMP METABOLIC PANEL Lab Routine Seropositive rheumatoid arthritis (HCC) Expected: 09/06/2021 (Approximate), Expires: 11/06/2021 [facility] Work Phone: Comment on above: Expected: 09/06/2021 (Approximate), Expi res: 11/06/2021 Start: 08-16-2021 End: 10-16-2021 CBC W Auto Differential panel - Blood CBC + DIFF Lab Routine Seropositive rheumatoid arthritis (HCC) Expected: 08/16/2021 (Approximate), Expires: 10/16/2021 [facility] Work Phone: Comment on above: Expected: 08/16/2021 (Approximate), Expi res: 10/16/2021 Start: 08-16-2021 End: 10-16-2021 Comprehensive metabolic 2000 panel - Serum or Plasma COMP METABOLIC PANEL Lab Routine Seropositive rheumatoid arthritis (HCC) Expected: 08/16/2021 (Approximate), Expires: 10/16/2021 [facility] Work Phone: Comment on above: Expected: 08/16/2021 (Approximate), Expi res: 10/16/2021 Start: 02-22-2021 DEPRESSION ASSESSMENT DEPRESSION ASSESSMENT [facility] Start: 10-23-2020 Influenza vaccination Flu vaccine (#1) [facility] Work Phone: Start: 12-04-2019 Creatinine measurement [facility] [place] Start: 12-04-2019 Creatinine monitoring Creatinine monitoring [facility] [place] , BRIAN Start: 12-04-2019 Potassium monitoring Potassium monitoring [facility], [place] Start: 11-19-2019 Creatinine monitoring Creatinine monitoring [facility] , BRIAN Start: 11-19-2019 Potassium monitoring Potassium monitoring [facility], BRIAN Start: 10-24-2019 Influenza vaccination [facility], [place]RIAN Start: 08-29-2019 End: 08-29-2019 Visit 08/29/2019 Visit Obstetrics and Gynecology Tosha Viera, [place] - CNShara [address] [place] [address] [phone] [facility] Start: 07-26-2019 End: 07-26-2019 Visit 07/26/2019 Visit Obstetrics and Gynecology Tosha Viera, [place] - JOSE [address] [place], [place] [id number] [facility] Start: 07-13-2019 End: 07-13-2019 Ancillary Procedure [facility] Start: 05-18-2019 End: 05-18-2019 Ancillary Procedure [facility] Start: 05-12-2019 End: 05-11-2020 VL DUP UPPER EXTREMITY VENOUS LEFT VL DUP UPPER EXTREMITY VENOUS LEFT Imaging Routine Superficial thrombophlebitis of left upper extremity Expected: 05/12/2019, Expires: 05/11/2020 [facility] [place] Comment on above: Expected: 05/12/2019, Expires: Start: 05-08-2019 End: 05-08-2019 Routine [facility] CENTRAL PROCESSING TECHNICIAN Start: 05-02-2019 End: 05-02-2019 Appointment 05/02/2019 Appointment Infusion Therapy [facility] Start: 04-24-2019 End: 04-24-2019 Routine 04/24/2019 Routine Obstetrics and Gynecology Tosha Viera, MANAGED CARE PROVIDER - CNM [address] [facility] [place] [address] [facility] Start: 02-28-2019 End: 02-28-2019 Routine [facility] CENTRAL PROCESSING TECHNICIAN Start: 02-13-2019 End: 02-13-2019 Routine 02/13/2019 Routine Obstetrics and Gynecology Tosha Viera, MANAGED CARE PROVIDER - CNM [address] [place] [phone] [facility] CENTRAL PROCESSING TECHNICIAN Start: 01-16-2019 End: 01-16-2019 Routine 01/16/2019 Routine Obstetrics and Gynecology Tosha Viera, MANAGED CARE PROVIDER - CNM [address] [place] [address] [facility] CENTRAL PROCESSING TECHNICIAN Start: 12-30-2018 Adult depression screening assessment DEPRESSION SCREENING [facility] Start: 12-19-2018 End: 12-19-2018 Initial 12/19/2018 Initial Obstetrics and Gynecology [facility] CENTRAL PROCESSING TECHNICIAN Start: 10-23-2018 Influenza vaccination Flu vaccine (#1) [place], [place] Start: 02-16-2014 HPV TESTING HPV TESTING [facility] Start: 02-16-2014 Screening for malignant neoplasm of cervix HPV Testing [facility] Start: 02-16-2005 Cervical cancer screen Cervical cancer screen [place], [place] Start: 02-16-2005 PAP TESTING PAP TESTING [facility] Start: 02-16-2005 Screening for malignant neoplasm of cervix Pap Testing [facility] Start: 02-16-2003 DTaP/Tdap/Td vaccine (1 - Tdap) DTaP/Tdap/Td vaccine (1 - Tdap) [place], [place] Start: 02-16-2003 Hepatitis B Vaccine (1 of 3 - 19+ 3-dose series) Hepatitis B Vaccine (1 of 3 - 19+ 3-dose series) [facility] Start: 02-16-2003 Pneumococcal vaccination Pneumococcal Vaccine (1 of 2 - PCV) [facility] Start: 02-16-2003 SHINGRIX VACCINE (1 of 2) SHINGRIX VACCINE (1 of 2) [facility] Start: 02-16-2003 Urine microalbumin profile DTAP,TDAP,TD (1 - Tdap) [facility] Start: 02-16-2002 Anxiety Screening Anxiety Screening [facility] Start: 02-16-2002 Depression Screening Depression Screening [facility] Start: 02-16-1997 Varicella Vaccine (1 of 2 - 13+ 2-dose series) Varicella Vaccine (1 of 2 - 13+ 2-dose series) [place], [place] Start: 1996 COVID-19 Vaccine (1) COVID-19 Vaccine (1) [facility] [employer] Phone: Start: 02-16-1995 DTaP/Tdap/Td vaccine (1 - Tdap) DTaP/Tdap/Td vaccine (1 - Tdap) [place], [place] Start: 02-16-1995 Screening for malignant neoplasm of cervix Cervical Cancer Screening [facility] Start: 02-16-1990 PNEUMOCOCCAL (1 - PCV) PNEUMOCOCCAL (1 - PCV) [facility] ic Start: 02-16-1990 Pneumococcal 0-64 years Vaccine (1 of 1 - PPSV23) Pneumococcal 0-64 years Vaccine (1 of 1 - PPSV23) [place], [place] Start: 02-16-1990 Pneumococcal 0-64 years Vaccine (1 of 2 - PPSV23) Pneumococcal 0-64 years Vaccine (1 of 2 - PPSV23) [facility] [employer] Phone: Start: 02-16-1990 Pneumococcal vaccination [facility] Start: 02-16-1989 COVID-19 VACCINE (#1) COVID-19 VACCINE (#1) [facility] Start: 02-16-1985 Varicella Vaccine (1 of 2 - 2-dose childhood series) Varicella Vaccine (1 of 2 - 2-dose childhood series) [place], [place] Start: 1984 COVID-19 VACCINE (#1) COVID-19 VACCINE (#1) [facility] Start: 1984 HEPATITIS B (1 of 3 - 3-dose series) HEPATITIS B (1 of 3 - 3-dose series) [facility] Start: 1984 Hepatitis B Vaccine (1 of 3 - 3-dose series) Hepatitis B Vaccine (1 of 3 - 3-dose series) [facility] 25-hydroxyvitamin D3 [Mass/volume] in Serum or Plasma VITAMIN D 25 HYDROXY Lab Routine Vitamin D deficiency 08/06/2021 1:42 PM EDT [facility] Work Phone: 25-hydroxyvitamin D3 [Mass/volume] in Serum or Plasma VITAMIN D 25 HYDROXY Lab Routine Vitamin D deficiency 09/03/2021 1:27 PM EDT [facility] Work Phone: 25-hydroxyvitamin D3 [Mass/volume] in Serum or Plasma VITAMIN D 25 HYDROXY Lab Routine Vitamin D deficiency 11/13/2021 1:41 PM EDT [facility] Work Phone: 25-hydroxyvitamin D3 [Mass/volume] in Serum or Plasma VITAMIN D 25 HYDROXY Lab Routine Vitamin D deficiency 06/23/2022 12:40 PM EDT [facility] Work Phone: End: 12-19-2018 Bacteria identified Cx Nom (U) Urine Culture Microbiology Routine Encounter for supervision of normal in first trimester, unspecified 1 Occurrences starting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 medications, tests, or procedures. This note was partially generated with the assistance of [employer] voice recognition software. An attempt was made to correct any dictation errors however there may be some incorrect words, spellings, and punctuation. Craig Wade MD [facility] Rheumatology Associate Staff [facility] Policy [employer] translator [facility] documented in this encounter [facility] 03-31-2024 Note HNO ID: [id number] Author: CRAIG WADE MD Service: ? Author Type: Physician Type: Progress Notes Filed: 03/31/2024 15:23 Note Text: Rheumatology Outpatient Clinic Date of Service: 03/31/2024 Patient: Any Ludwig Medical Record: [id number] Primary Care Physician: Tino Blake MD, MD [...] in 2012 by primary care physician in [place] however had not seen slasher machine operator until 2018. She had multiple joint [...] to low G6PD Methotrexate prior to seeing slasher machine operator in 2018 did not help Actemra [...] ANXIETY buprenorphine HCl/naloxone (more content not included)... [facility] 03-01-2024 History of Present illness Narrative Pt states she has not had a pap for about 2-3 years She has had an abnormal pap- pos for HPV about 4-5 years ago she did have a procedure and resulted in precancerous cells at a 4 at the [facility]. Pt had a tubal removal in 2021 [...] precancerous cells at a 4 at the [facility]. Pt had a tubal removal in 2021 [...] Date Adult ADHD (attention deficit hyperactivity disorder) ([facility]) 01/25/2023 Anxiety Carpal tunnel syndrome 05/03/2023 Hearing loss, left 05/03/2023 HPV in female 05/03/2023 Opioid abuse ([facility] 05/03/2023 Psoriasis ([facility] 03/11/2023 Rheumatoid arthritis ([facility] 05/03/2023 Tobacco user 05/03/2023 No past surgical [...] nursing note reviewed. Exam conducted with a oracle brm developer present. Constitutional: General: She is not in [...] BMI 29.0-29.9,adult - Primary Opioid abuse, uncomplicated ([facility]) Is taking suboxone, provider is [facility] Continue treatment with them Rheumatoid arthritis, unspecified ([facility]) Was under the care of Rheumatology, new [...] of the risks of continued smoking: stroke, IA, all forms of cancer, lung disease, and [...] of the risks of continued smoking: stroke, IA, all forms of cancer, lung disease, and [...] asking for steroids Will send in to [facility] prednisone Associated Problem(s): Opioid abuse, uncomplicated (CMS/HCC) Is taking suboxone, provider is [facility] Continue treatment with them documented in this encounter [facility] 03-01-2024 Instructions Niya Santiago NP - 03/01/2024 10:30 AM EST PAP smear: we call either way 7-10 days Need mammogram, we will send to [facility], if no call in 10 days, call them to schedule: [phone] RA: will send in 5 days steroids, keep appt with Rheumatology in April 2024 documented in this encounter [facility] 01-25-2024 History of Present illness Narrative Associated Problem(s): Rheumatoid arthritis (CMS/HCC) Used to see Rheumatology with [facility], they quit, she has not been back Images from the original note were not included. Any Ludwig is a 38 y.o. female presents with chief complaint of ADHD HPI: Under care for MARY: on suboxone through [facility] in [employer] doing well RA; cold weather makes it [...] Date Adult ADHD (attention deficit hyperactivity disorder) ([facility]) 01/25/2023 Anxiety Carpal tunnel syndrome 05/03/2023 Hearing loss, left 05/03/2023 HPV in female 05/03/2023 Opioid abuse ([facility] 05/03/2023 Psoriasis ([facility] 03/11/2023 Rheumatoid arthritis ([facility] 05/03/2023 Tobacco user 05/03/2023 No past surgical [...] taking suboxone, provider is [facility] Goes to [facility] difficulty with finding time to go Will discuss at next appt as she should be done with IOP at that time and may be able to focus on an appt Rheumatoid arthritis (CMS/HCC) Used to see Rheumatology with [facility], they quit, she has not been back Tobacco user - Primary The patient has been advised of the risks of continued smoking: stroke, IA, all forms of cancer, lung disease, and [...] of the risks of continued smoking: stroke, IA, all forms of cancer, lung disease, and . Options for quitting smoking include: cold turkey, hypnosis, acupuncture, nicotine replacement meds (gum, lozenges, and patches), Buproprion, and Varenicline. At this time pt is encouraged to evaluate their goals for wanting to quit smoking, and reach out to provider when ready to start this process documented in this encounter [facility] 01-25-2024 Instructions Nyia Santiago NP - 01/25/2024 2:40 PM EST Get labs completed Schedule PAP smear Will discuss Rheumatology referral when you come back in 3 months documented in this encounter [facility] 10-21-2023 History of Present illness Narrative Associated [...] Date Adult ADHD (attention deficit hyperactivity disorder) ([facility]) 01/25/2023 Anxiety Carpal tunnel syndrome 05/03/2023 Hearing loss, left 05/03/2023 HPV in female 05/03/2023 Opioid abuse ([facility]) 05/03/2023 Psoriasis ([facility]) 03/11/2023 Rheumatoid arthritis ([facility]) 05/03/2023 Tobacco user 05/03/2023 History reviewed. No [...] user - Primary Neutropenia, unspecified ([facility]) Recheck CBC Relevant Orders CBC and differential Subacute maxillary sinusitis Atb, fluid, rest follow up if not better Will give albuterol refill as well for wheeze Non toxic looking Relevant Medications amoxicillin-clavulanate (Augmentin) 875-125 MG tablet Wheezing Relevant Medications albuterol HFA (Ventolin HFA) 90 mcg/act inhaler documented in this encounter [facility] 08-17-2023 Telephone encounter Note Spoke with patient Rescheduled due to illness- pt requests Fridays only Scheduled a few out also Devi Wagner August 17, 2023 10:57 AM [facility] 08-17-2023 Miscellaneous Notes Spoke with patient [...] completion of antibiotics. documented in this encounter [facility] 08-16-2023 Telephone encounter Note LM on VM informing patient that infusion has been cancelled due to being on antibiotics. Need to reschedule the 08/17 infusion Devi Wagner August 16, 2023 4:04 PM [facility] 08-16-2023 Telephone encounter Note Pt scheduled for infusion 08/18/23. Noted pt in ED 08/14/23. Started on antibiotics for ear infection. Please call patient to reschedule infusion 2 weeks after completion of antibiotics. [facility] 07-20-2023 Telephone encounter Note Spoke with pt, confirmed she will be in for her infusion tomorrow. Denies any issues at this time. [facility] 07-20-2023 Miscellaneous Notes Spoke with pt, confirmed she will be in for her infusion tomorrow. Denies any issues at this time. documented in this encounter [facility] 06-28-2023 Note HNO ID: [id number] Author: ?, ?, ? Service: ? Author Type: ? Type: Progress Notes Filed: 06/28/2023 10:10 Note Text: Called and LMOM for patient to call the office back to get reschedule for her appointment with Fariba Hill and then her Infusion right after. Please warm transfer to [facility]. [facility] 06-28-2023 History of Present illness Narrative Called and LMOM for patient to call the office back to get reschedule for her appointment with Fariba Hill and then her Infusion right after. Please warm transfer to [facility]. documented in this encounter [facility] 06-25-2023 Telephone encounter Note Called and LMOM for patient to call the office back so we can get her rescheduled from her appointment and Infusion on 06/23/2023 that she cancel. Please warm transfer to [facility] 06-25-2023 Miscellaneous Notes Called and LMOM for patient to call the office back so we can get her rescheduled from her appointment and Infusion on 06/23/2023 that she cancel. Please warm transfer to [facility] documented in this encounter [facility] 06-22-2023 Telephone encounter Note Called patient to get her rescheduled and she is going to go ahead and keep her appointment. Patient will be here for her appointment with Fariba and then get her infusion. [facility] 06-22-2023 Miscellaneous Notes Called patient to [...] confirm scheduled infusion. documented in this encounter [facility] 06-22-2023 Telephone encounter Note Spoke with patient on phone. Patient states she needs to reschedule tomorrows infusion do to starting a new job and working tomorrow. Will have scheduling reach out and reschedule infusion. [facility] 06-22-2023 Telephone encounter Note LMOM for patient to call back and confirm scheduled infusion. [facility] 05-28-2023 Miscellaneous Notes Call placed to patient to inquire how she is feeling [facility]. She states she is feeling better and has had no further issues. James Hill CNP notified. documented in this encounter [facility] 05-26-2023 Miscellaneous Notes Addended by: SILVIA COOPER on: 05/26/2023 03:06 PM Modules accepted: Orders documented in this encounter [facility] 05-26-2023 Instructions Silvia Cooper APRN.CNP - 05/26/2023 2:00 PM EDT Albuterol as needed- inhaler sent If needed, only if needed, Prednisone 40 mg once daily x 5 days with food Consider Zyrtec daily until Mothers day or longer Follow up as needed documented in this encounter [facility] 05-26-2023 Note HNO ID: [id number] Author: SILVIA COOPER APRN.CNP Service: ? Author Type: Nurse Practitioner Type: Progress Notes Filed: 05/26/2023 14:15 Note Text: This note was created using PurePredictiveriter. Subjective Any Ludwig is a 38 year old female. This 38 year old female present sot [facility] with expiratory wheeze, was in infusions [...] - PREDNISONE 20 MG TABLET Silvia Cooper APRN.[facility] 05-26-2023 History of Present illness Narrative This note was created using NoteWriter. Subjective Any Ludwig is a 38 year old female. This 38 year old female present sot [facility] with expiratory wheeze, was in [...] - PREDNISONE 20 MG TABLET Silvia Cooper APRN.PIGMENT MIXER documented in this encounter [facility] 05-26-2023 History of Present illness Narrative FOLLOW UP VISIT-in person PCP: Tino Blake MD [address] [place] [address] Ms. 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 Until she has [...] over her lifetime. We are assisting with drug abuse social worker consult, also to help with [...] which included preparing to see the patient, [id number] patient care, completing clinical documentation, obtaining and/or reviewing separately obtained history, performing a medically appropriate examination, counseling and educating the patient/family/caregiver, and ordering medications, tests, or procedures. Fariba Hill APRN.PIGMENT MIXER Recommendations to share with referring physician/Primary care [...] Tino Blake MD documented in this encounter [facility] 05-26-2023 Note HNO ID: [id number] Author: FARIBA HILL APRN.ANTHONY Service: ? Author Type: Nurse Practitioner Type: Progress Notes Filed: 06/07/2023 08:14 Note Text: FOLLOW UP VISIT-in person PCP: Tino Blake MD [address] [place] [place] [address] Ms. 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 Until she has [...] over her lifetime. We are assisting with drug abuse social worker consult, also to help with adherence to health care and patient's social support, especially kristie (more content not included)... [facility] 05-26-2023 Note HNO ID: [id number] Author: KORIN PUGA RN Service: ? Author [...] No New rash or open sores? No [facility] 05-26-2023 History of Present illness [...] open sores? No documented in this encounter [facility] 05-25-2023 Miscellaneous Notes Spoke with patient; confirmed infusion tomorrow. Denies any issues. LMOM for patient to call back and confirm patient will be in tomorrow for scheduled infusion and has not been ill recently or on ATB. documented in this encounter [facility] 05-18-2023 Miscellaneous Notes Called patient on [...] Slot held: N/A documented in this encounter [facility] 05-14-2023 Miscellaneous Notes Patient has been [...] to: self Call patient at: at home [phone] (home) [phone] (cell) Payor: [employer] MEDICAID / Plan: [facility] MEDICAID [facility] / Product Type: Medicaid / Kylah DIANA Clayton documented in this encounter [facility] 04-28-2023 Miscellaneous Notes Corrected please schedule Could you please check the Ultrasound of the Left Elbow Thank you Yessy documented in this encounter [facility] 04-28-2023 History of Present illness Narrative [...] L elbow ultrasound. documented in this encounter [facility] 04-28-2023 History of Present illness Narrative FOLLOW UP VISIT-in person PCP: Tino Blake MD [address] [place] [address] Ms. 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 Until she has [...] over her lifetime. We are assisting with drug abuse social worker consult, also to help with [...] which included preparing to see the patient, [id number] patient care, completing clinical documentation, obtaining and/or [...] Tino Blake MD documented in this encounter [facility] 04-21-2023 Miscellaneous Notes Please change patient schedule going forward with a ov each infusion with me If patients normal time to come is is 1130 Please use my 1100 slot 60min for every infusion with infusion directly following LMOM for patient to call the office back Please warm transfer to [facility] Fariba - April appointment has been scheduled as requested. Please let our infusion apartment groundskeeper(s) know how you would like to proceed [...] you kindly, fa documented in this encounter [facility] 03-31-2023 History of Present illness Narrative [...] open sores? No documented in this encounter [facility] 03-30-2023 Miscellaneous Notes Spoke with patient, she will be in for infusion. Denies infections Called and left message with return number to verify patient will be here tomorrow and is infection free and not on antibiotics. documented in this encounter [facility] 02-18-2023 Miscellaneous Notes Patient has been rescheduled as requested Pt did not show for her infusion today. Please call her to reschedule. LMOM for patient to call back regarding infusion for tomorrow LMOM for patient to confirm patient is coming for infusion tomorrow. VM left for patient to call office to confirm infusion. documented in this encounter [facility] 02-01-2023 Miscellaneous Notes LMOM for patient to call us back to reschedule her infusion . Please warm transfer to [facility] ----- Message from Irais Ochoa sent at 02/01/2023 3:13 PM EST ----- Regarding: infusion reschedule Contact: Patient name: Any Ludwig Who is calling: Patient Call back number: [phone] [facility] ordering provider: Dr Mccann Type of infusion: Actemra Patient just needs to reschedule 02/02/23 appt documented in this encounter [facility] 02-01-2023 Miscellaneous Notes Spoke with patient, she will be in for infusion, denies any signs or symptoms of illness LMOM for patient to call back regarding infusion for tomorrow documented in this encounter [facility] 01-20-2023 Miscellaneous Notes Please increase actemra 8mg/kg every 4 weeks documented in this encounter [facility] 01-20-2023 Instructions Fariba Hill APRN.CNP - 01/20/2023 9:26 AM EST -PLEASE NOTE THAT WE REVIEW ALL YOUR TEST RESULTS AT YOUR NEXT FOLLOW UP VISIT WITH YOU. IF ANY ABNORMAL LAB REQUIRES SOONER ATTENTION, WE WILL CONTACT YOU. -If you have signed up on [employer], we will release your test results through [employer]. Prednisone 20mg ( 4 tablets ) for [...] that features the Whole Plant Based diet, [place] over knives (see video online and visit website). Another movie that was recently released is: Eating You Alive (you can find it at [employer]) Dr. Lisa Armando is a [facility] physician who is an expert in Whole Plant based diet. His website is Mobee. His research work highlighted the benefits of [...] on a whole plant based diet, at [employer].Nethub and the free keisha is 21-Day Vegan Kickstart with meals and recipes to follow. He has multiple free videos and YouTube, for example: https://youtu.be/sdiQggmB6x9 , https://youtu.be/FeQLVfyvt7m Dr. Gordy Farrell has proven starch diet whole plant based and benefit to his Rheumatoid Arthritis patients, his website: ryudoShhmoozedima.DataEmail Group Dr. Maira Bertrand is a renowned staff climate scientist, who has studied and researched the benefits of the Whole plant based diet. He has also researched the adverse effects of animal proteins on health. He presents many of his research findings in his book The [place] study. Dr. Maurilio Xie has completed many research trials proving the reversal of diseases with healthy lifestyle and the Whole Plant based diet. Dr. Maurilio Xie website is: mignonKnotch.DataEmail Group UnDo It a new book by Dr. Maurilio Thomas has dedicated a website and additional time to reviewing all food related articles and research and presents them in his power point presentation and on his website at: nutritionfacts.org Dr. Thomas has multiple free videos and YouTube, for example https://[employer].Visiarc/aSgNkhgVtks and https://[employer].Visiarc/lXXXygDRyBU. Also, you could find additional information by reading or watching online and YouTube such as: Vertical Borer AJ, Cooking With Plants, The Vegan Corner (recipes from an Cym[employer] Vertical Borer), and visiting the provided websites for additional information on the whole plant based benefit and cooking recipes. The Whole Foods Plant Based Cooking Show Athletes such as Kelvin Kan, Antonio Guillermo, Shaheen Mooney YouTube Guilt Free Shaheen Mooney YouTube Guilt Free TV and Hua with [employer]. Goodbye Lupus by Kandi Leonard M.D If [...] - Gentle Yoga Anyone Can Do Anywhere www.Voiceit.DataEmail Group/y oga landon chi, stretching, cardio, gradual strengthening, [...] or a higher dose. Raw: Garlic, Cilantro, [place] nuts, Pumpkin seeds, George seeds and Flax seed powder have been reported to help with certain metal detoxification such as mercury. Inwood-3 plant based sources: rachana seeds, flax seed powder, flax milk, walnuts. Turmeric can be found natural, used as the spice powder or the root with your food. This is also available as a capsule. Sweet cherries (raw cleaned or frozen) and Turmeric have anti-inflammatory benefit Start reviewing the Whole Plant Based Diet, by watching [place] over [employer] movie and then review website. There are many other resources and educational information on the Whole plant based diet on the Internet and documentaries. There are other resources for wellness that you can also benefit from, such as the [facility] Wellness website, [facility] companyinic.org and includes the Mediterranean heart healthy diet and yoga and meditation. Please avoid all dairy products. You could use non-dairy milk such as Flax milk, Cashew milk, [place] milk, Rice milk, Oat milk or Hemp [...] Foundation) http://www.osteo.org/osteolinks.a sp National Institutes of Health: 1-256-684-BONE The Calcium Information Center: Non-Dairy, Plant based Milk, contain 1 glass = 450 mg of calcium Exampled include Flax Milk, [place] Milk, Cashew Milk Examples of Food Sources of Calcium from [facility] Food Milligrams (mg) per serving Percent DV* Soymilk, calcium-fortified, 8 ounces 299 30 Topmost juice, calcium-fortified, 6 ounces 261 26 Tofu, firm, made with calcium sulfate, cup* 253 25 Tofu, soft, made with calcium sulfate, cup* 138 14 Sdyei-fh-rrr cereal, calcium-fortified, 1 cup 100-1,000 10-100 Turnip greens, fresh, boiled, cup 99 10 Kale, raw, chopped, 1 cup 100 10 Kale, fresh, cooked, 1 cup 94 9 English cabbage, bok gilbert, raw, shredded, 1 cup 74 7 Bread, white, 1 slice 73 7 Tortilla, corn, nusap-bv-ebjg/mcgee, one 6 diameter 46 5 Tortilla, flour, hfdiv-pv-iwfa/mcgee, one 6 diameter 32 3 Bread, whole-wheat, [...] daily with a meal; Certain patients required 7101-6746 iu daily and in patients deficient in [...] bones. Studies show approximately 50% of [place] men and women are vitamin D deficient [...] available from: www.nof.org (the national osteoporosis foundation) http://www.seaboardclinic.org/ar thritis/osteo/info.htm http://ods.od.nih.gov/factsheets/ vitamind.asp National Institutes of Health: 4-856-672-BONE [facility] Calcium Information [place]: Thank you for choosing [facility] for your healthcare. Sincerely, Fariba Hill APRN.PIGMENT MIXER documented in this encounter [facility] 01-20-2023 History of Present illness Narrative FOLLOW UP VISIT-in person PCP: Tino Blake MD [address] [place] [address] Ms. 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 Until she has [...] over her lifetime. We are assisting with drug abuse social worker consult, also to help with [...] which included preparing to see the patient, jipx-ja-vwxi patient care, completing clinical documentation, obtaining and/or [...] Tino Blake MD documented in this encounter [facility] 12-31-2022 History of Present illness Narrative [...] open sores? No documented in this encounter [facility] 12-30-2022 Miscellaneous Notes Patient calling in to office. Verified by name and . She states that she is infection free and not currently taking any antibiotics. She denies any hospitalizations or changes in health since her last infusion. She will be in tomorrow as scheduled for infusion. VM left for pt to call office to confirm infusion tomorrow. documented in this encounter [facility] 12-18-2022 Miscellaneous Notes Left message for patient to call office regarding below. sent mychart Left message for patient to call office regarding below. Please call patient Normal liver enzymes Will recheck in 1 month May restart arava 10mg daily Received outside lab results from [facility] AST and ALT results completed on 12/14 ALT: 33 AST: 19 placed on Fariba's desk for review documented in this encounter [facility] 12-14-2022 Miscellaneous Notes Lab orders faxed with confirmation to below number. [facility] calling about orders. Patient did not give correct fax number. Please re-fax to [phone]. Patient is still waiting at lab. Please advise. DIANA [place] POST (Patient Operations Support Team) Please note: Please do not re-route phone encounters back to this agent, please send to appropriate office pool. Agent works in operations center and cannot complete patient specific tasks. Fariba from [facility] called to follow up on request -- lab orders faxed to [phone] as requested with confirmation Any Ludwig is calling Fariba Hill APRN.CNP today to request Lab Orders be faxed to [facility]. She believes their fax number is [phone]. She states we can call them to verify at [phone]. Please notify pt once orders have been faxed. Patient has been identified by name and birthdate. Duration of symptoms: N/A Person calling: self Call patient at: on cell [phone] (home) [phone] (cell) Was an appointment scheduled: No Closing statement: Results or non-symptom based questions: Thank you for calling [facility], your call will be returned within the next business day. Komal Nunn documented in this encounter [facility] 12-11-2022 Miscellaneous Notes Spoke with patient [...] Abs Lymph 1.00 - 4.00 k/uL 3.92 [place]% % 8.2 Abs [place] <0.87 k/uL 0.65 Eosin% % 2.3 Abs [...] 20 mm/hr 20 documented in this encounter [facility] 11-25-2022 Miscellaneous Notes LMOM for patient to call the office if she is able to move from Fri to Thur. Please warm transfer to [facility] documented in this encounter [facility] 11-13-2022 Miscellaneous Notes Left VM that steroid has been sent to pharmacy. Left message for patient to call office regarding below. Please call patient Steriod taper sent to the pharmacy please update patient Patient calling to ask questions re: infusion that was supposed to be for 11/12 but was cancelled due to no approval yet from insurance Please call patient back at [phone] Devi Wagner November 11, 2022 12:49 PM documented in this encounter [facility] 10-22-2022 History of Present illness Narrative [...] prior to leaving. documented in this encounter [facility] 10-22-2022 Instructions Fariba Hill, MANAGED CARE PROVIDER.PIGMENT MIXER - 10/22/2022 9:35 AM EDT -PLEASE NOTE THAT WE REVIEW ALL YOUR TEST RESULTS AT YOUR NEXT FOLLOW UP VISIT WITH YOU. IF ANY ABNORMAL LAB REQUIRES SOONER ATTENTION, WE WILL CONTACT YOU. -If you have signed up on Cloud Elementshart, we will release your test results through ClearEdge Power. Plan to start actemra in 2 weeks [...] that features the Whole Plant Based diet, [place] over knives (see video online and visit website). Another movie that was recently released is: Eating You Alive (you can find it at [employer].DataEmail Group) Dr. Lisa Armando is a [facility] physician who is an expert in Whole Plant based diet. His website is Mobee. His research work highlighted the benefits of [...] on a whole plant based diet, at Simphatic and the free keisha is 21-Day itzat with meals and recipes to follow. He has multiple free videos and YouTube, for example: https://youPacific Star Communicationsu.be/vwyOzasN9r6 , https://youPacific Star Communicationsu.be/LvYEMpwkg3e Dr. Gordy Farrell has proven starch diet whole plant based and benefit to his Rheumatoid Arthritis patients, his website: Beautylishdewey.DataEmail Group Dr. Maira Bertrand is a renowned staff climate scientist, who has studied and researched the benefits of the Whole plant based diet. He has also researched the adverse effects of animal proteins on health. He presents many of his research findings in his book The [place] study. Dr. Maurilio Xie has completed many research trials proving the reversal of diseases with healthy lifestyle and the Whole Plant based diet. Dr. Maurilio Xie website is: Intilery.com.DataEmail Group UnDo It a new book by Dr. Muarilio Thomas has dedicated a website and additional time to reviewing all food related articles and research and presents them in his power point presentation and on his website at: nutritionfacts.org Dr. Thomas has multiple free videos and YouTube, for example https://youtu.be/aSgNkhgVtks and https://youtu.be/lXXXygDRyBU. Also, you could find additional information by reading or watching online and YouTube such as: Vertical Borer AJ, Cooking With Plants, The Vegan Corner (recipes from an Cymro Vertical Borer), and visiting the provided websites for additional information on the whole plant based benefit and cooking recipes. The Whole Foods Plant Based Cooking Show Athletes such as Kelvin Kan, Antonio Roll, Shaheen Mooney YouTube Guilt Free Shaheen Mooney YouTube Guilt Free TV and Hua with [employer]. Goodbye Lupus by Kandi Leonard M.D If [...] - Gentle Yoga Anyone Can Do Anywhere www.GreenPal/y oga landon chi, stretching, cardio, gradual strengthening, [...] or a higher dose. Raw: Garlic, Cilantro, [place] nuts, Pumpkin seeds, George seeds and Flax seed powder have been reported to help with certain metal detoxification such as mercury. Inwood-3 plant based sources: rachana seeds, flax seed powder, flax milk, walnuts. Turmeric can be found natural, used as the spice powder or the root with your food. This is also available as a capsule. Sweet cherries (raw cleaned or frozen) and Turmeric have anti-inflammatory benefit Start reviewing the Whole Plant Based Diet, by watching [place] over [employer] movie and then review website. There are many other resources and educational information on the Whole plant based diet on the Internet and documentaries. There are other resources for wellness that you can also benefit from, such as the [facility] Wellness website, [facility].org and includes the Mediterranean heart healthy diet and yoga and meditation. Please avoid all dairy products. You could use non-dairy milk such as Flax milk, Cashew milk, [place] milk, Rice milk, Oat milk or Hemp [...] Foundation) http://www.osteo.org/osteolinks.a sp National Institutes of Health: 4-528-859-BONE The Calcium Information [place]: Non-Dairy, Plant based Milk, contain 1 glass = 450 mg of calcium Exampled include Flax Milk, [place] Milk, Cashew Milk Examples of Food Sources of Calcium from [facility] Food Milligrams (mg) per serving Percent DV* Soymilk, calcium-fortified, 8 ounces 299 30 Topmost juice, calcium-fortified, 6 ounces 261 26 Tofu, firm, made with calcium sulfate, cup* 253 25 Tofu, soft, made with calcium sulfate, cup* 138 14 Devhd-pt-tbw cereal, calcium-fortified, 1 cup 100-1,000 10-100 Turnip greens, fresh, boiled, cup 99 10 Kale, raw, chopped, 1 cup 100 10 Kale, fresh, cooked, 1 cup 94 9 English cabbage, bok gilbert, raw, shredded, 1 cup 74 7 Bread, white, 1 slice 73 7 Tortilla, corn, idjtu-hc-uqax/mcgee, one 6 diameter 46 5 Tortilla, flour, zkdvq-wy-wjom/mcgee, one 6 diameter 32 3 Bread, whole-wheat, [...] daily with a meal; Certain patients required 5417-4504 iu daily and in patients deficient in [...] bones. Studies show approximately 50% of [place] men and women are vitamin D deficient [...] national osteoporosis foundation) http://www.[facility].org/ar thritis/osteo/info.htm http://ods.od.nih.gov/factsheets/ vitamind.asp [place] Institutes of Health: 1-096-206-BONE [facility] Calcium Information [place]: Thank you for choosing [facility] for your healthcare. Sincerely, Fariba Hill APRN.PIGMENT MIXER documented in this encounter [facility] 10-22-2022 History of Present illness Narrative FOLLOW UP VISIT-in person PCP: Tino Blake MD [address] [place] [address] Ms. Ludwig is a 37 year old [...] Z51.81, Z79.899 Encounter for monitoring leflunomide therapy Z. Encounter for medication review and counseling Z71.2 Encounter to discuss test results Z. Counseling on health promotion and disease prevention [...] is planning to follow up with local slasher machine operator closer to home. Until she has [...] over her lifetime. We are assisting with drug abuse social worker consult, also to help with [...] which included preparing to see the patient, ycqd-dx-zryd patient care, completing clinical documentation, obtaining and/or [...] Tino Blake MD documented in this encounter [facility] 10-21-2022 Miscellaneous Notes Spoke with pt; confirmed infusion appt 10/22/22 and appt with Fariba. Denies s/sx of infection or antibiotics or other issues at this time. documented in this encounter [facility] 09-17-2022 History of Present illness Narrative [...] open sores? No documented in this encounter [facility] 09-16-2022 Miscellaneous Notes Spoke with patient, she will be in for infusion Patient returning call, but PSS told that the nurses are all busy. Patient advised that a message would be placed for the nurses to call the patient back. VM left for pt to call office for below message. documented in this encounter [facility] 09-09-2022 Miscellaneous Notes Tried calling patient 3 times and not able to leave a voice mail. If patient calls then we can offer her a sooner appointment. May offer patient sooner infusion appt since approved (09/02/2022) Time Cycle, Day Action User 10:23 AM Preauthorization Status Changed New Value: Authorized Previous Value: Waiting for Response Rodrigue (Pharmacy Biometrician)Laverne Changing plan to avsola 7.5mg /kg every 8 weeks Please expedite approval Patient is on for infusion tomorrow In process of updating plan Images from the original note were not included. === PHARMACY TEAM ==== AUTHORIZATION DENIED Denial Reason: Denial upheld on appeal Payor: [place] [employer] Date of Service: 09.01.22 Received Denial Via: Portal Availity Bankruptcy Judge Name / Call Ref #: na / na Drug name(s) & HCPCS code(s): Avsola Dx Code: M05.9CMF-47-ABZtsbzwkoprtt rheumatoid arthritis Comment: Next step is a [...] notes with original submission. Appeal ID is [id number] ETO is 15 days from today Onbased appeal acknowledgement letter. Letter created please submit thanks === PHARMACY TEAM ==== Case Note/ Misc Comment Has appeal been submitted? If not, I can submit an appeal letter if provided via [facility] portal for Reference# [id number]. I spoke with peer to peer Will need to appeal [phone] Please ask for expedited appeal Avsola 5mg/kg [...] COMPLETE P2P or Appeal: P2P Payer: [facility] DOS: 09.01.22 Drug Name(s) & HCPCS/CPTCode(s): Avsola Q5121 Dx code(s) submitted: M05.9 Seropositive rheumatoid arthritis Provider: JUAN DANIEL LEOS Peer to Peer/Appeal reason: Timeframe to complete: grace Date sent to provider: 08.05.22 Courtesy page sent (PRN): No documented in this encounter [facility] 08-31-2022 Miscellaneous Notes Patient has been [...] at this time. documented in this encounter [facility] 06-22-2022 Miscellaneous Notes Call placed to patient to confirm she will be here for tomorrow's infusion and has had no recent infection with no answer. LMOM to call back or send my chart. documented in this encounter [facility] 04-28-2022 Instructions Fariba Hill APRN.ANTHONY - 04/28/2022 1:04 PM EST -PLEASE NOTE THAT WE REVIEW ALL YOUR TEST RESULTS AT YOUR NEXT FOLLOW UP VISIT WITH YOU. IF ANY ABNORMAL LAB REQUIRES SOONER ATTENTION, WE WILL CONTACT YOU. -If you have signed up on ClearEdge Power, we will release your test results through ClearEdge Power. Increase inflxiamab every 5 weeks 5mg/kg arava [...] that features the Whole Plant Based diet, [place] over knives (see video online and visit website). Another movie that was recently released is: Eating You Alive (you can find it at [employer]) Dr. Lisa Armando is a [facility] physician who is an expert in Whole Plant based diet. His website is Mobee. His research work highlighted the benefits of [...] on a whole plant based diet, at Simphatic and the free keisha is 21-Day Vegan Kickstart with meals and recipes to follow. He has multiple free videos and YouTube, for example: https://youPacific Star Communicationsu.be/sjkGajwD3y4 , https://youPacific Star Communicationsu.be/BwJBYugsg4l Dr. Gordy Farrell has proven starch diet whole plant based and benefit to his Rheumatoid Arthritis patients, his website: val.DataEmail Group Dr. Maira Bertrand is a renowned staff climate scientist, who has studied and researched the benefits of the Whole plant based diet. He has also researched the adverse effects of animal proteins on health. He presents many of his research findings in his book The [place] study. Dr. Maurilio Xie has completed many research trials proving the reversal of diseases with healthy lifestyle and the Whole Plant based diet. Dr. Maurilio Xie website is: mignonKnotch.DataEmail Group UnDo It a new book by [...] or watching online and YouTube such as: Vertical Borer AJ, Cooking With Plants, The Vegan Corner (recipes from an Cymro Vertical Borer), and visiting the provided websites for additional information on the whole plant based benefit and cooking recipes. The Whole Foods Plant Based Cooking Show Athletes such as Kelvin Kan, Antonio Guillermo, Shaheen Mooney YouTube Guilt Free Shaheen Mooney YouTube Guilt Free TV and Hua with [employer]. Goodbye Lupus by Kandi Leonard M.D If [...] - Gentle Yoga Anyone Can Do Anywhere www.Voiceit.DataEmail Group/y oga landon chi, stretching, cardio, gradual strengthening, [...] or a higher dose. Raw: Garlic, Cilantro, [place] nuts, Pumpkin seeds, George seeds and Flax seed powder have been reported to help with certain metal detoxification such as mercury. Inwood-3 plant based sources: rachana seeds, flax seed powder, flax milk, walnuts. Turmeric can be found natural, used as the spice powder or the root with your food. This is also available as a capsule. Sweet cherries (raw cleaned or frozen) and Turmeric have anti-inflammatory benefit Start reviewing the Whole Plant Based Diet, by watching [place] over [employer] movie and then review website. There are many other resources and educational information on the Whole plant based diet on the Internet and documentaries. There are other resources for wellness that you can also benefit from, such as the [facility] Wellness website, [facility].org and includes the Mediterranean heart healthy diet and yoga and meditation. Please avoid all dairy products. You could use non-dairy milk such as Flax milk, Cashew milk, [place] milk, Rice milk, Oat milk or Hemp [...] Foundation) http://www.osteo.org/osteolinks.a sp National Institutes of Health: 1-971-245-BONE The Calcium Information Center: Non-Dairy, Plant based Milk, contain 1 glass = 450 mg of calcium Exampled include Flax Milk, [place] Milk, Cashew Milk Examples of Food Sources of Calcium from NIH Food Milligrams (mg) per serving Percent DV* Soymilk, calcium-fortified, 8 ounces 299 30 Topmost juice, calcium-fortified, 6 ounces 261 26 Tofu, firm, made with calcium sulfate, cup* 253 25 Tofu, soft, made with calcium sulfate, cup* 138 14 Hxmzi-gt-stp cereal, calcium-fortified, 1 cup 100-1,000 10-100 Turnip greens, fresh, boiled, cup 99 10 Kale, raw, chopped, 1 cup 100 10 Kale, fresh, cooked, 1 cup 94 9 English cabbage, bok gilbert, raw, shredded, 1 cup 74 7 Bread, white, 1 slice 73 7 Tortilla, corn, igpxm-on-hhmy/mcgee, one 6 diameter 46 5 Tortilla, flour, kpews-wt-jlve/mcgee, one 6 diameter 32 3 Bread, whole-wheat, [...] daily with a meal; Certain patients required 8335-7425 iu daily and in patients deficient in [...] bones. Studies show approximately 50% of [place] men and women are vitamin D deficient [...] available from: www.nof.org (the national osteoporosis foundation) http://www.[facility].org/ar thritis/osteo/info.htm http://ods.od.nih.gov/factsheets/ vitamind.asp National Institutes of Health: 9-770-299-BONE [facility] Information [place]: Thank you for choosing [facility] for your healthcare. Sincerely, Fariba Hill APRN.PIGMENT MIXER documented in this encounter [facility] 04-28-2022 History of Present illness Narrative FOLLOW UP VISIT-telephone PCP: Tino Blake MD [address] [place] [place] [address] Ms. Ludwig is a 37 year old patient here today for follow up of RA Interim History: Telephone call Recheck Swelling has improved in wrist and feet Wrist pain/ swelling L>R Pain 7/10 Hurting because of the rain Feet are [...] is planning to follow up with local slasher machine operator closer to home. Until she has [...] over her lifetime. We are assisting with drug abuse social worker consult, also to help with [...] only. Patient agrees the this plan PLAN/RECOMMENDATIONS: [facility] on 04/28/22 predniSONE (DELTASONE) 5 mg tablet [...] ordering medications, tests, or procedures. Fariba Hill APRN.PIGMENT MIXER Recommendations to share with referring physician/Primary care physician : Dear Dr. Blkae, I had the pleasure of seeing your [...] the care of your patient. Fariba Hill APRN.PIGMENT MIXER CC: Tino Blake MD documented in this encounter [facility] 04-16-2022 Miscellaneous Notes sent via Hunch rx resent to local pharmacy Pharmacy Information Pharmacy Address Telephone [id number] [id number] Unable to reach pt, no ans, vm full will send via Hunch -attempted to call pt and VM full -try again or send YaDatahart Please call patient -Please advise patient of [...] bld. tests in 8 wks (orders in [employer]) -Once patient has completed the 8 wk treatment, it is recommended to continue on maintenance therapy to keep the Vit D from dropping again. I recommend patient takes over the counter, Vitamin D3: 2000 international units once daily with a meal. Thank you kindly, Fariba Hill APRN.PIGMENT MIXER documented in this encounter [facility] 04-14-2022 History of Present illness Narrative [...] open sores? No documented in this encounter [facility] 04-14-2022 Instructions Fariba Hill APRN.PIGMENT MIXER - 04/14/2022 10:44 AM EST -PLEASE NOTE THAT WE REVIEW ALL YOUR TEST RESULTS AT YOUR NEXT FOLLOW UP VISIT WITH YOU. IF ANY ABNORMAL LAB REQUIRES SOONER ATTENTION, WE WILL CONTACT YOU. -If you have signed up on Bnookit, we will release your test results through ClearEdge Power. Increase inflxiamab every 5 weeks 5mg/kg arava [...] that features the Whole Plant Based diet, [place] over knives (see video online and visit website). Another movie that was recently released is: Eating You Alive (you can find it at [employer]) Dr. Lisa Armando is a [facility] physician who is an expert in Whole Plant based diet. His website is Mobee. His research work highlighted the benefits of [...] on a whole plant based diet, at Simphatic and the free keisha is 21-Day itzat with meals and recipes to follow. He has multiple free videos and YouTube, for example: https://youPacific Star Communicationsu.be/qxhRelhT0l8 , https://BRCK Inc.be/GsLFKmefz6x Dr. Gordy Farrell has proven starch diet whole plant based and benefit to his Rheumatoid Arthritis patients, his website: [employer].DataEmail Group Dr. Maira Bertrand is a renowned staff climate scientist, who has studied and researched the benefits of the Whole plant based diet. He has also researched the adverse effects of animal proteins on health. He presents many of his research findings in his book The [place] study. Dr. Maurilio Xie has completed many research trials proving the reversal of diseases with healthy lifestyle and the Whole Plant based diet. Dr. Maurilio Xie website is: mignonKnotch.DataEmail Group UnDo It a new book by Dr. Maurilio Thomas has dedicated a website and additional time to reviewing all food related articles and research and presents them in his power point presentation and on his website at: nutritionfacts.org Dr. Thomas has multiple free videos and YouTube, for example https://youtu.be/aSgNkhgVtks and https://youPacific Star Communicationsu.be/lXXXygDRyBU. Also, you could find additional information by reading or watching online and YouTube such as: Vertical Borer AJ, Cooking With Plants, The Vegan Corner (recipes from an Cymro Vertical Borer), and visiting the provided websites for additional information on the whole plant based benefit and cooking recipes. The Whole Foods Plant Based Cooking Show Athletes such as Kelvin Kan, Antonio Guillermo, Shaheen Mooney YouTube Guilt Free Shaheen Mooney YouTube Guilt Free TV and Hua with [employer]. Goodbye Lupus by Kandi Leonard M.D If [...] - Gentle Yoga Anyone Can Do Anywhere www.Voiceit.DataEmail Group/y oga landon chi, stretching, cardio, gradual strengthening, [...] or a higher dose. Raw: Garlic, Cilantro, [place] nuts, Pumpkin seeds, George seeds and Flax seed powder have been reported to help with certain metal detoxification such as mercury. Inwood-3 plant based sources: rachana seeds, flax seed powder, flax milk, walnuts. Turmeric can be found natural, used as the spice powder or the root with your food. This is also available as a capsule. Sweet cherries (raw cleaned or frozen) and Turmeric have anti-inflammatory benefit Start reviewing the Whole Plant Based Diet, by watching [place] over Knives movie and then review website. There are many other resources and educational information on the Whole plant based diet on the Internet and documentaries. There are other resources for wellness that you can also benefit from, such as the [facility] Wellness website, [facility].org and includes the Mediterranean heart healthy diet and yoga and meditation. Please avoid all dairy products. You could use non-dairy milk such as Flax milk, Cashew milk, [place] milk, Rice milk, Oat milk or Hemp [...] Foundation) http://www.osteo.org/osteolinks.a sp National Institutes of Health: 7-017-810-BONE The Calcium Information Center: Non-Dairy, Plant based Milk, contain 1 glass = 450 mg of calcium Exampled include Flax Milk, [place] Milk, Cashew Milk Examples of Food Sources of Calcium from NIH Food Milligrams (mg) per serving Percent DV* Soymilk, calcium-fortified, 8 ounces 299 30 Topmost juice, calcium-fortified, 6 ounces 261 26 Tofu, firm, made with calcium sulfate, cup* 253 25 Tofu, soft, made with calcium sulfate, cup* 138 14 Wycao-io-zvu cereal, calcium-fortified, 1 cup 100-1,000 10-100 Turnip greens, fresh, boiled, cup 99 10 Kale, raw, chopped, 1 cup 100 10 Kale, fresh, cooked, 1 cup 94 9 English cabbage, bok gilbert, raw, shredded, 1 cup 74 7 Bread, white, 1 slice 73 7 Tortilla, corn, nkcni-sh-lapn/mcgee, one 6 diameter 46 5 Tortilla, flour, jyzlv-wl-aepp/mcgee, one 6 diameter 32 3 Bread, whole-wheat, [...] daily with a meal; Certain patients required 7604-1814 iu daily and in patients deficient in [...] bones. Studies show approximately 50% of [place] men and women are vitamin D deficient [...] available from: www.nof.org (the national osteoporosis foundation) http://www.[facility].org/ar andreiitis/osteo/info.htm http://ods.od.nih.gov/factsheets/ vitamind.asp [place] Institutes of [facility]: 4-634-335-BONE [facility] Calcium Information [place]: Thank you for choosing [facility] for your healthcare. Sincerely, Fariba Hill APRN.PIGMENT MIXER documented in this encounter [facility] 04-14-2022 History of Present illness Narrative FOLLOW UP VISIT-in person PCP: Tino Blake MD [address] [place] [address] Ms. Ludwig is a 37 year old [...] is planning to follow up with local slasher machine operator closer to home. Until she has [...] over her lifetime. We are assisting with drug abuse social worker consult, also to help with [...] which included preparing to see the patient, rlmf-zi-yain patient care, completing clinical documentation, obtaining and/or [...] Tino Blake MD documented in this encounter [facility] 03-09-2022 Miscellaneous Notes Most recent Rheumatology visit: 01/05/2022 (with Fariba Hill) Recent Office Visits - This Specialty 01/05/2022 Seropositive rheumatoid arthritis (HCC) Rheumatology Fariba Hill APRN.CNP 10/29/2021 Seropositive rheumatoid arthritis (HCC) Rheumatology Fariba Hill APRN.CNP 07/23/2021 Seropositive rheumatoid arthritis (HCC) Rheumatology Fariba Hill, MANAGED CARE PROVIDER.PIGMENT MIXER Upcoming Rheumatology Appointments - Next 365 Days Visit Type Date Time Department [facility] 04/14/2022 10:30 AM [facility] CBC: CBC Latest Ref Rng & [...] R Padilla MA documented in this encounter [facility] 03-02-2022 Miscellaneous Notes mailed as requested [...] Abs Lymph 1.00 - 4.00 k/uL 3.03 [place]% % 8.0 Abs [place] <0.87 k/uL 0.49 Eosin% % 4.6 Abs [...] mm/hr 29 (H) documented in this encounter [facility] 02-24-2022 History of Present illness Narrative Pt at end of infusion c/o swelling and bump on her left foot. She was asking about surgical intervention, or perhaps block, or draining. Fariba Hill PIGMENT MIXER was consulted. Orders were placed for pt [...] open sores? No documented in this encounter [facility] 02-20-2022 Miscellaneous Notes I spoke to Any and she will be coming in for her infusion on 02-24-22. She denies having been on any recent antibiotics. documented in this encounter [facility] 02-03-2022 History of Present illness Narrative POPULATION HEALTH NAVIGATION OUTREACH Action/FYI Left vm Pt identified by name and : NO Outreach Outcome/Action Unable to reach patient: Left message Bnookit message sent Did you use a PCP flex slot to schedule this appointment? No Reason for Outreach Care Gap or Scheduling/Wellness visits Payer: Payor: [place] / Plan: [employer] ADVANTAGE MEDICAID / Product Type: Medicaid / Care [...] 2022 3:21 PM documented in this encounter [facility] 01-26-2022 Miscellaneous Notes Last time 10/29/2021 [...] complete a P2P/Appeal? Need decision by 01/27/2022 Keanu Sanders documented in this encounter [facility] 01-06-2022 Miscellaneous Notes Smoking Cessation Navigation Outcome of contact: Left Message Comments: A voicemail has been left for this patient regarding Tobacco Cessation support options. If this patient has any further questions they can email us at or call us at [phone]. [employer] Lard Renderer/Smoking Cessation Navigator: Zaina Schmitz, [facility] ED documented in this encounter [facility] 01-06-2022 Miscellaneous Notes Can you please change plan to reflect Infliximab next time increase dose to 5mg/ kg- to decrease disease activity thanks documented in this encounter [facility] 01-05-2022 History of Present illness Narrative [...] open sores? No documented in this encounter [facility] 01-05-2022 Instructions Fariba Hill APRN.[facility] - 01/05/2022 10:34 AM EST -PLEASE NOTE THAT WE REVIEW ALL YOUR TEST RESULTS AT YOUR NEXT FOLLOW UP VISIT WITH YOU. IF ANY ABNORMAL LAB REQUIRES SOONER ATTENTION, WE WILL CONTACT YOU. -If you have signed up on ClearEdge [employer], we will release your test results through [employer]. Increase inflxiamab every 7 weeks 5mg/kg Start [...] that features the Whole Plant Based diet, [place] over knives (see video online and visit website). Another movie that was recently released is: Eating You Alive (you can find it at [employer]) Dr. Lisa Armando is a [facility] physician who is an expert in Whole Plant based diet. His website is Mobee. His research work highlighted the benefits of [...] on a whole plant based diet, at [employer]ph[employer] and the free keisha is 21-Day itzat with meals and recipes to follow. He has multiple free videos and YouTube, for example: [email or web address] [email or web address] , [email or web address] Dr. Gordy Farrell has proven starch diet whole plant based and benefit to his Rheumatoid Arthritis patients, his website: [employer].DataEmail Group Dr. Maira Bertrand is a renowned staff climate scientist, who has studied and researched the benefits of the Whole plant based diet. He has also researched the adverse effects of animal proteins on health. He presents many of his research findings in his book The [place] study. Dr. Maurilio Xie has completed many research trials proving the reversal of diseases with healthy lifestyle and the Whole Plant based diet. Dr. Maurilio Xie website is: mignonKnotch.DataEmail Group UnDo It a new book by Dr. Maurilio Thomas has dedicated a website and additional time to reviewing all food related articles and research and presents them in his power point presentation and on his website at: nutritionfacts.org Dr. Thomas has multiple free videos and YouTube, for example [email or web address]://youPacific Star Communicationsu.be/aSgNkhgVtks and [email or web address] [email or web address]. Also, you could find additional information by reading or watching online and YouTube such as: Vertical Borer AJ, Cooking With Plants, The Vegan Corner (recipes from an Cymro Vertical Borer), and visiting the provided websites for additional information on the whole plant based benefit and cooking recipes. The Whole Foods Plant Based Cooking Show Athletes such as Kelvin Kan, Antonio Guillermo, Shaheen Mooney YouTube Guilt Free Shaheen Mooney YouTube Guilt Free TV and Hua with [employer]. Goodbye Lupus by Kandi Leonard M.D If [...] - Gentle Yoga Anyone Can Do Anywhere www.GreenPal/y oga landon chi, stretching, cardio, gradual strengthening, [...] or a higher dose. Raw: Garlic, Cilantro, [place] nuts, Pumpkin seeds, George seeds and Flax seed powder have been reported to help with certain metal detoxification such as mercury. Inwood-3 plant based sources: rachana seeds, flax seed powder, flax milk, walnuts. Turmeric can be found natural, used as the spice powder or the root with your food. This is also available as a capsule. Sweet cherries (raw cleaned or frozen) and Turmeric have anti-inflammatory benefit Start reviewing the Whole Plant Based Diet, by watching [place] over Knives movie and then review website. There are many other resources and educational information on the Whole plant based diet on the Internet and documentaries. There are other resources for wellness that you can also benefit from, such as the [facility] Wellness website, seaboardclinic.org and includes the Mediterranean heart healthy diet and yoga and meditation. Please avoid all dairy products. You could use non-dairy milk such as Flax milk, Cashew milk, [place] milk, Rice milk, Oat milk or Hemp [...] Foundation) http://www.osteo.org/osteolinks.a sp National Institutes of Health: 7-987-176-BONE The Calcium Information Center: Non-Dairy, Plant based Milk, contain 1 glass = 450 mg of calcium Exampled include Flax Milk, [place] Milk, Cashew Milk Examples of Food Sources of Calcium from NIH Food Milligrams (mg) per serving Percent DV* Soymilk, calcium-fortified, 8 ounces 299 30 Topmost juice, calcium-fortified, 6 ounces 261 26 Tofu, firm, made with calcium sulfate, cup* 253 25 Tofu, soft, made with calcium sulfate, cup* 138 14 Qsxhj-fg-qya cereal, calcium-fortified, 1 cup 100-1,000 10-100 Turnip greens, fresh, boiled, cup 99 10 Kale, raw, chopped, 1 cup 100 10 Kale, fresh, cooked, 1 cup 94 9 English cabbage, bok gilbert, raw, shredded, 1 cup 74 7 Bread, white, 1 slice 73 7 Tortilla, corn, juaul-mg-xaph/mcgee, one 6 diameter 46 5 Tortilla, flour, wsfko-bg-nogh/mcgee, one 6 diameter 32 3 Bread, whole-wheat, 1 slice 30 3 Broccoli, raw, cup 21 2 * DV = Daily Value. DVs were developed by the U.S. Food and Drug Administration to help consumers compare the nutrient contents among products within the context of a total daily diet. The U.S. Department of Agriculture s ([employer] s) Nutrient Database Web site lists the [...] daily with a meal; Certain patients required 3255-9698 iu daily and in patients deficient in [...] bones. Studies show approximately 50% of [place] men and women are vitamin D deficient [...] available from: www.nof.org (the national osteoporosis foundation) http://www.[facility] company[facility].org/ar andreiitis/osteo/info.htm http://ods.od.nih.gov/factsheets/ vitamind.asp [place] Institutes of Health: 1-536-846-BONE [facility] Calcium Information [place]: Thank you for choosing [facility] for your healthcare. Sincerely, Fariba Hill APRN.PIGMENT MIXER documented in this encounter [facility] 01-05-2022 History of Present illness Narrative FOLLOW UP VISIT- virtual PCP: Tino Blake MD [address] [place] [address] Ms. Ludwig is a 36 year old [...] is planning to follow up with local slasher machine operator closer to home. Until she has [...] over her lifetime. We are assisting with drug abuse social worker consult, also to help with [...] which included preparing to see the patient, ikid-qp-rnsb patient care, completing clinical documentation, obtaining and/or [...] referring physician/Primary care physician : Dear Dr. Balke, I had the pleasure of seeing your [...] Tino Blake MD documented in this encounter [facility] 01-02-2022 Miscellaneous Notes I LMOM for [...] Your infusion team documented in this encounter [facility] 12-22-2021 Miscellaneous Notes Called patient to offer to reschedule appointments to 01/01, left message with . Attempted to call pt, no answer. Sent her a Hunch message. Please call pt to reschedule infusion and appt with Fariba Hill (due 01/01/22). Can cancel appts on 01/05/22 if patient agrees to change to 01/01. She is scheduled 12/16/21 which is too soon. Last infusion 11/13/21, ordered every 7 weeks. Can leave appt with Fariba for tomorrow until patient calls back to acknowledge that her appts are cancelled. documented in this encounter [facility] 12-15-2021 Miscellaneous Notes I called and [...] a brief explanation. documented in this encounter [facility] 11-13-2021 History of Present illness Narrative [...] open sores? No documented in this encounter [facility] 11-11-2021 Miscellaneous Notes I LMOM for [...] or open sores? documented in this encounter [facility] 10-29-2021 Instructions Fariba Hill APRN.PIGMENT MIXER - 10/29/2021 1:51 PM EDT -PLEASE NOTE THAT WE REVIEW ALL YOUR TEST RESULTS AT YOUR NEXT FOLLOW UP VISIT WITH YOU. IF ANY ABNORMAL LAB REQUIRES SOONER ATTENTION, WE WILL CONTACT YOU. -If you have signed up on [employer], we will release your test results through [employer]. Increase inflxiamab every 7 weeks 5mg/kg Start [...] that features the Whole Plant Based diet, [place] over knives (see video online and visit website). Another movie that was recently released is: Eating You Alive (you can find it at [employer]) Dr. Lisa Armando is a [facility] physician who is an expert in Whole Plant based diet. His website is Mobee. His research work highlighted the benefits of [...] on a whole plant based diet, at [employer].Nethub and the free keisha is 21-Day Vegan Kickstart with meals and recipes to follow. He has multiple free videos and YouTube, for example: https://youtu.be/ggdTlcsU6a9 , https://youtu.be/NqVLFqbmx8h Dr. Gordy Farrell has proven starch diet whole plant based and benefit to his Rheumatoid Arthritis patients, his website: ruydolakisha.DataEmail Group Dr. Maira Bertrand is a renowned staff climate scientist, who has studied and researched the benefits of the Whole plant based diet. He has also researched the adverse effects of animal proteins on health. He presents many of his research findings in his book The [place] study. Dr. Maurilio Xie has completed many research trials proving the reversal of diseases with healthy lifestyle and the Whole Plant based diet. Dr. Maurilio Xie website is: mignonKnotch.DataEmail Group UnDo It a new book by Dr. Maurilio Thomas has dedicated a website and additional time to reviewing all food related articles and research and presents them in his power point presentation and on his website at: nutritionfacts.org Dr. Thomas has multiple free videos and YouTube, for example https://youCognition Therapeutics.be/aSgNkhgVtks and https://[employer].Visiarc/lXXXygDRyBU. Also, you could find additional information by reading or watching online and YouTube such as: Vertical Borer AJ, Cooking With Plants, The Vegan Corner (recipes from an Cymro Vertical Borer), and visiting the provided websites for additional information on the whole plant based benefit and cooking recipes. The Whole Foods Plant Based Cooking Show Athletes such as Kelvin Kan, Antonio Guillermo, Shaheen Mooney YouTube Guilt Free Shaheen Mooney YouTube Guilt Free TV and Hua with [employer]. Goodbye Lupus by Kandi Leonard M.D If [...] - Gentle Yoga Anyone Can Do Anywhere www.Voiceit.DataEmail Group/y oga landon chi, stretching, cardio, gradual strengthening, [...] or a higher dose. Raw: Garlic, Cilantro, [place] nuts, Pumpkin seeds, George seeds and Flax seed powder have been reported to help with certain metal detoxification such as mercury. Inwood-3 plant based sources: rachana seeds, flax seed powder, flax milk, walnuts. Turmeric can be found natural, used as the spice powder or the root with your food. This is also available as a capsule. Sweet cherries (raw cleaned or frozen) and Turmeric have anti-inflammatory benefit Start reviewing the Whole Plant Based Diet, by watching [place] over [employer] movie and then review website. There are many other resources and educational information on the Whole plant based diet on the Internet and documentaries. There are other resources for wellness that you can also benefit from, such as the [facility] Wellness website, [facility].org and includes the Mediterranean heart healthy diet and yoga and meditation. Please avoid all dairy products. You could use non-dairy milk such as Flax milk, Cashew milk, [place] milk, Rice milk, Oat milk or Hemp [...] Foundation) http://www.osteo.org/osteolinks.a sp National Institutes of Health: 8-131-192-BONE The Calcium Information Center: Non-Dairy, Plant based Milk, contain 1 glass = 450 mg of calcium Exampled include Flax Milk, [place] Milk, Cashew Milk Examples of Food Sources of Calcium from NIH Food Milligrams (mg) per serving Percent DV* Soymilk, calcium-fortified, 8 ounces 299 30 Topmost juice, calcium-fortified, 6 ounces 261 26 Tofu, firm, made with calcium sulfate, cup* 253 25 Tofu, soft, made with calcium sulfate, cup* 138 14 Snvjl-rg-lhv cereal, calcium-fortified, 1 cup 100-1,000 10-100 Turnip greens, fresh, boiled, cup 99 10 Kale, raw, chopped, 1 cup 100 10 Kale, fresh, cooked, 1 cup 94 9 English cabbage, bok gilbert, raw, shredded, 1 cup 74 7 Bread, white, 1 slice 73 7 Tortilla, corn, kpcdq-jh-kuok/mcgee, one 6 diameter 46 5 Tortilla, flour, ubprv-ux-lbpx/mcgee, one 6 diameter 32 3 Bread, whole-wheat, [...] daily with a meal; Certain patients required 7989-3314 iu daily and in patients deficient in [...] bones. Studies show approximately 50% of [place] men and women are vitamin D deficient [...] available from: www.nof.org (the national osteoporosis foundation) http://www.[facility].org/ar thritis/osteo/info.htm http://ods.od.nih.gov/factsheets/ vitamind.asp National Institutes of Health: 2-600-382-BONE [facility] Calcium Information [place]: Thank you for choosing [facility] for your healthcare. Sincerely, Fariba Hill APRN.ANTHONY documented in this encounter [facility] 10-29-2021 History of Present illness Narrative FOLLOW UP VISIT- virtual PCP: Tino Blake MD [address] [place] [address] Ms. Ludwig is a 36 year old [...] is planning to follow up with local slasher machine operator closer to home. Until she has [...] over her lifetime. We are assisting with drug abuse social worker consult, also to help with [...] Tino Blake MD documented in this encounter [facility] 10-28-2021 Miscellaneous Notes If pt calls [...] a brief explanation. documented in this encounter [facility] 10-07-2021 Note PROCEDURE: XR FOOT L [...] authenticated by: TERESO HERNANDEZ Date: 2021-10-07 12:06 [facility] 09-05-2021 Note OPERATIVE NOTE OPERATION DATE: 09/05/2021 PROCEDURE: Bilateral laparoscopic salpingectomy. PREOPERATIVE DIAGNOSIS:: 1. Multiparity. 2. Desires permanent sterilization. POSTOPERATIVE DIAGNOSIS:: 1. Multiparity. 2. Desires permanent sterilization. ANESTHESIA: General. SURGEON: Patricio Ram D.O. [employer]ERR[employer] ATTENDANT: AMANDA Negron URINE OUTPUT: Yellow and clear. [...] and needle counts were correct x2. : [facility] Signed and Approved by: DR PATRICIO RAM . 09/12/2021 08:16:00 [facility] 09-03-2021 History of Present illness Narrative [...] open sores? No documented in this encounter [facility] 09-01-2021 Miscellaneous Notes I spoke to Sarah, she is coming for her infusion on 09-03-21. She states that she was on a z-pack for a URI, and that she has finished it 2 weeks ago. She was prescribed this from an ER visit in [place]. Pt states that she is feeling much better. documented in this encounter [facility] 08-07-2021 Miscellaneous Notes Spoke with patient Low potassium Please increase potassium in your diet: spinach, sweet potatoes, avocados, coconut water, dried fruits (dates and apricots), bananas, beans, acorn squash, mushrooms. Low vit d Will start rx Other labs acceptable range Labs in 1 month with infusion documented in this encounter [facility] 08-06-2021 History of Present illness Narrative [...] open sores? No documented in this encounter [facility] 07-23-2021 History of Present illness Narrative [...] open sores? No documented in this encounter [facility] 07-23-2021 Instructions Fariba Hill APRN.[facility] - 07/23/2021 9:08 AM EDT -PLEASE NOTE THAT WE REVIEW ALL YOUR TEST RESULTS AT YOUR NEXT FOLLOW UP VISIT WITH YOU. IF ANY ABNORMAL LAB REQUIRES SOONER ATTENTION, WE WILL CONTACT YOU. -If you have signed up on Bnookit, we will release your test results through [employer]. - Vitamin D : vitamin D3: 2000 [...] that features the Whole Plant Based diet, [place] over knives (see video online and visit website). Another movie that was recently released is: Eating You Alive (you can find it at [employer]) Dr. Lisa Armando is a [facility] physician who is an expert in Whole Plant based diet. His website is Mobee. His research work highlighted the benefits of [...] on a whole plant based diet, at Simphatic and the free keisha is 21-Day [employer] SensorWavestart with meals and recipes to follow. He has multiple free videos and YouTube, for example: https://youPacific Star Communicationsu.be/qsbDvtuP5j7 , https://youCognition Therapeutics.be/XiZYZtxbg6x Dr. Gordy Farrell has proven starch diet whole plant based and benefit to his Rheumatoid Arthritis patients, his website: val.DataEmail Group Dr. Maira Bertrand is a renowned staff climate scientist, who has studied and researched the benefits of the Whole plant based diet. He has also researched the adverse effects of animal proteins on health. He presents many of his research findings in his book The [place] study. Dr. Maurilio Xie has completed many research trials proving the reversal of diseases with healthy lifestyle and the Whole Plant based diet. Dr. Maurilio Xie website is: mignonKnotch.DataEmail Group UnDo It a new book by Dr. Maurilio Thomas has dedicated a website and additional time to reviewing all food related articles and research and presents them in his power point presentation and on his website at: nutritionfacts.org Dr. Thomas has multiple free videos and YouTube, for example https://youPacific Star Communicationsu.be/aSgNkhgVtks and https://youCognition Therapeutics.be/lXXXygDRyBU. Also, you could find additional information by reading or watching online and YouTube such as: Vertical Borer AJ, Cooking With Plants, The Vegan Corner (recipes from an Cym[employer] Vertical Borer), and visiting the provided websites for additional information on the whole plant based benefit and cooking recipes. The Whole Foods Plant Based Cooking Show Athletes such as Kelvin Kan, Antonio Guillermo, Shaheen Mooney YouTube Guilt Free Shaheen Mooney YouTube Guilt Free TV and Hua with [employer]. Goodbye Lupus by Kandi Leonard M.D If [...] - Gentle Yoga Anyone Can Do Anywhere www.Voiceit.DataEmail Group/y oga landon chi, stretching, cardio, gradual strengthening, [...] or a higher dose. Raw: Garlic, Cilantro, [place] nuts, Pumpkin seeds, George seeds and Flax seed powder have been reported to help with certain metal detoxification such as mercury. Inwood-3 plant based sources: rachana seeds, flax seed powder, flax milk, walnuts. Turmeric can be found natural, used as the spice powder or the root with your food. This is also available as a capsule. Sweet cherries (raw cleaned or frozen) and Turmeric have anti-inflammatory benefit Start reviewing the Whole Plant Based Diet, by watching [place] over [employer] movie and then review website. There are many other resources and educational information on the Whole plant based diet on the Internet and documentaries. There are other resources for wellness that you can also benefit from, such as the [facility] Wellness website, seaboardclinic.org and includes the Mediterranean heart healthy diet and yoga and meditation. Please avoid all dairy products. You could use non-dairy milk such as Flax milk, Cashew milk, [place] milk, Rice milk, Oat milk or Hemp [...] Foundation) http://www.osteo.org/osteolinks.a sp National Institutes of Health: 0-698-256-BONE The Calcium Information Center: Non-Dairy, Plant based Milk, contain 1 glass = 450 mg of calcium Exampled include Flax Milk, [place] Milk, Cashew Milk Examples of Food Sources of Calcium from NIH Food Milligrams (mg) per serving Percent DV* Soymilk, calcium-fortified, 8 ounces 299 30 Topmost juice, calcium-fortified, 6 ounces 261 26 Tofu, firm, made with calcium sulfate, cup* 253 25 Tofu, soft, made with calcium sulfate, cup* 138 14 Pwjke-jo-xhb cereal, calcium-fortified, 1 cup 100 1,000 10 100 Turnip greens, fresh, boiled, cup 99 10 Kale, raw, chopped, 1 cup 100 10 Kale, fresh, cooked, 1 cup 94 9 English cabbage, bok gilbert, raw, shredded, 1 cup 74 7 Bread, white, 1 slice 73 7 Tortilla, corn, zogix-cy-uhpd/mcgee, one 6 diameter 46 5 Tortilla, flour, kampg-ft-xvqp/mcgee, one 6 diameter 32 3 Bread, whole-wheat, 1 slice 30 3 Broccoli, raw, cup 21 2 * DV = Daily Value. DVs were developed by the U.S. Food and Drug Administration to help consumers compare the nutrient contents among products within the context of a total daily diet. The U.S. Department of Agriculture s ([employer] s) Nutrient Database Web site lists the [...] daily with a meal; Certain patients required 0954-8521 iu daily and in patients deficient in [...] bones. Studies show approximately 50% of [place] men and women are vitamin D deficient [...] national osteoporosis foundation) http://www.[facility].org/ar thritis/osteo/info.htm http://ods.od.nih.gov/factsheets/ vitamind.asp [place] [facility]: 1-378-461-BONE [facility] Calcium Information [place]: Thank you for choosing [facility] for your healthcare. Sincerely, Fariba Hill APRN.ANTHONY documented in this encounter [facility] 07-23-2021 History of Present illness Narrative FOLLOW UP VISIT- virtual PCP: Tino Blake MD [id number] [place] [address] Ms. Ludwig is a 36 year old [...] Arthritis Sero-positive, RF, CCP Non-erosive Per Dr. Al-Ashkars last note At last visit the patient's [...] is planning to follow up with local slasher machine operator closer to home. Until she has [...] over her lifetime. We are assisting with drug abuse social worker consult, also to help with [...] which included preparing to see the patient, [id number] patient care, completing clinical documentation, obtaining and/or [...] Tino Blake MD documented in this encounter [facility] 07-22-2021 Miscellaneous Notes Patient called back stating that she will be hear for her infusion tomorrow. Patient can be reached at [phone]. Please advise. I left a message for [...] will be cancelled. documented in this encounter [facility] 07-18-2021 Miscellaneous Notes Sent pt a Hunch message. Attempted to contact patient Unable to leave message as voicemail is full No alternate number to try Please try again later Attempted number on file. No answer, unable to leave a message. I then attempted to reach number on file [phone] & she states there is nobody by the name Any at that phone number. Phylicia Torres MA Please call and update patient reflexis infusion approved. Please remind patient to complete labs this week thanks documented in this encounter [facility] 07-10-2021 Miscellaneous Notes Per Chilo, initial [...] hears back. Please advise, thanks! Chilo Rx [phone] Patient has been on mtx and arava [...] again? Request from [employer] by: Phone Chilo Vazquez [phone] Email Sent to: TE encounter Requested Clinicals/Information Sent: N/A documented in this encounter [facility] 06-26-2021 Miscellaneous Notes Fax received and [...] Waiting for approval documented in this encounter [facility] 06-17-2021 Miscellaneous Notes Patient has been scheduled as requested for 06/20/21. I spoke with Ms. Ludwig and she is aware of all of the appointment details. Bailey Walker PSS June 17, 2021 11:56 AM Pt aware. Please call to schedule pt for lab as pt requested an apt. Thanks. Phylicia Torres MA ----- Message from Fariba Hill APRN.PIGMENT MIXER sent at 06/16/2021 4:27 PM EDT ----- Please call patient and review documented in this encounter [facility] 09-15-2020 Hospital Discharge instructions Loida Caro PA-C - 09/15/2020 Call to arrange follow-up with primary care for repeat check within 24 to 48 hours. If you go home develop a high fever or worsening symptoms do not hesitate to return to the ER immediately. The following attachments cannot be sent through Care Everywhere.Pneumonia ([place])documented in this encounter [employer]: Evaluation note Diagnosis Pneumonia of both lungs due to infectious organism, unspecified part of lung- Primary documented in this encounter [employer]: evaluation note* Diagnosis Right upper quadrant abdominal pain Abdominal pain, right upper quadrant documented in this encounter [employer]: evaluation note* Diagnosis Seropositive rheumatoid arthritis (HCC)- Primary Rheumatoid arthritis [facility] Diagnosis Seropositive rheumatoid arthritis (HCC)- [...] therapeutic drug monitoring documented in this encounter [facility] note* Diagnosis Seropositive rheumatoid arthritis (HCC)- Primary Rheumatoid arthritis Vitamin D deficiency Unspecified vitamin D deficiency documented in this encounter [facility] note* Diagnosis Seropositive rheumatoid arthritis (HCC)- Primary Rheumatoid arthritis Vitamin D deficiency Unspecified vitamin D deficiency documented in this encounter [facility] note* Diagnosis Dermatomyositis (HCC)- Primary Dermatomyositis Seropositive rheumatoid arthritis (HCC) Rheumatoid arthritis Vitamin D deficiency Unspecified vitamin D deficiency documented in this encounter [facility] note* Diagnosis Seropositive rheumatoid arthritis (HCC)- [...] (HCC) Rheumatoid arthritis documented in this encounter [facility] note* Diagnosis Seropositive rheumatoid arthritis (HCC)- Primary Rheumatoid arthritis Vitamin D deficiency Unspecified vitamin D deficiency documented in this encounter [facility] note* Diagnosis Seropositive rheumatoid arthritis (HCC)- [...] (HCC) Rheumatoid arthritis documented in this encounter [facility] note* Diagnosis Vitamin D deficiency- Primary Unspecified vitamin D deficiency Seropositive rheumatoid arthritis (HCC) Rheumatoid arthritis [facility] Diagnosis Seropositive rheumatoid arthritis (HCC)- Primary Rheumatoid arthritis [facility] Diagnosis Seropositive rheumatoid arthritis (HCC)- Primary Rheumatoid arthritis [facility] Diagnosis Seropositive rheumatoid arthritis (HCC) Rheumatoid arthritis documented in this encounter [facility] note* Diagnosis Seropositive rheumatoid arthritis (HCC)- [...] of other medications [facility] Diagnosis Seropositive rheumatoid arthritis (HCC)- Primary Rheumatoid arthritis Vitamin D deficiency Unspecified vitamin D deficiency documented in this encounter [facility] note* Diagnosis Vitamin D deficiency Unspecified vitamin D deficiency [facility] Diagnosis Seropositive rheumatoid arthritis (HCC)- Primary Rheumatoid arthritis documented in this encounter [facility] note* Diagnosis Seropositive rheumatoid arthritis (HCC)- Primary Rheumatoid arthritis Vitamin D deficiency Unspecified vitamin D deficiency [facility] Diagnosis Seropositive rheumatoid arthritis (HCC)- Primary Rheumatoid arthritis [facility] Diagnosis Seropositive rheumatoid arthritis (HCC) Rheumatoid arthritis documented in this encounter [facility] note* Diagnosis Seropositive rheumatoid arthritis (HCC)- [...] Tobacco use disorder [facility] Diagnosis Seropositive rheumatoid arthritis (HCC)- Primary Rheumatoid arthritis Vitamin D deficiency Unspecified vitamin D deficiency Synovitis Synovitis and tenosynovitis, unspecified documented in this encounter [facility] note* Diagnosis Smokes and motivated to quit- Primary Tobacco use disorder Seropositive rheumatoid arthritis (HCC) Rheumatoid arthritis [facility] Diagnosis Seropositive rheumatoid arthritis (HCC)- Primary Rheumatoid arthritis [facility] Diagnosis Seropositive rheumatoid arthritis (HCC)- Primary Rheumatoid arthritis documented in this encounter [facility] note* Diagnosis Seropositive rheumatoid arthritis (HCC) Rheumatoid arthritis documented in this encounter [facility] note* Diagnosis Seropositive rheumatoid arthritis (HCC)- Primary Rheumatoid arthritis documented in this encounter [facility] note* Diagnosis Seropositive rheumatoid arthritis (HCC)- [...] Other specified counseling documented in this encounter [facility] note* Diagnosis Seropositive rheumatoid arthritis (HCC)- Primary Rheumatoid arthritis documented in this encounter [facility] note* Diagnosis Seropositive rheumatoid arthritis (HCC)- Primary Rheumatoid arthritis documented in this encounter [facility] note* Diagnosis Seropositive rheumatoid arthritis (HCC)- Primary Rheumatoid arthritis Localized superficial swelling, mass, or lump documented in this encounter [facility] note* Diagnosis Seropositive rheumatoid arthritis (HCC)- Primary Rheumatoid arthritis Localized superficial swelling, mass, or lump Encounter for medication review and counseling Other specified counseling Synovitis Synovitis and tenosynovitis, unspecified Encounter to discuss test results Other specified counseling Medication monitoring encounter Encounter for therapeutic drug monitoring Smoker Tobacco use disorder documented in this encounter [facility] note* Diagnosis Seropositive rheumatoid arthritis (HCC)- Primary Rheumatoid arthritis Vitamin D deficiency Unspecified vitamin D deficiency [facility] Diagnosis Wheezing- Primary [facility] Diagnosis Seropositive rheumatoid arthritis (HCC)- Primary Rheumatoid arthritis Synovitis Synovitis and tenosynovitis, unspecified Vitamin D deficiency Unspecified vitamin D deficiency Localized superficial swelling, mass, or lump Encounter to discuss test results Other specified counseling Encounter for medication review and counseling Other specified counseling Medication monitoring encounter Encounter for therapeutic drug monitoring documented in this encounter [facility] note* Diagnosis Seropositive rheumatoid arthritis (HCC) Rheumatoid arthritis documented in this encounter [facility] note* Diagnosis ADHD (attention deficit hyperactivity disorder), combined type ([facility])- Primary Attention deficit disorder with hyperactivity Anxiety Anxiety state, unspecified Anxiety- Primary Anxiety state, unspecified Tobacco user Tobacco use disorder BMI 29.0-29.9,adult Adult ADHD (attention deficit hyperactivity disorder) ([facility]) Mild depression ([facility]) Depressive disorder, not elsewhere classified Adult ADHD (attention deficit hyperactivity disorder) ([facility])- Primary Tobacco user Tobacco use disorder Anxiety Anxiety state, unspecified Adult ADHD (attention deficit hyperactivity disorder) ([facility])- Primary Neutropenia, unspecified ([facility]) Neutropenia, unspecified Tobacco user Tobacco use disorder BMI 29.0-29.9,adult Rheumatoid arthritis, involving unspecified site, unspecified whether rheumatoid factor present ([facility]) Anxiety Anxiety state, unspecified Subacute maxillary sinusitis Wheezing Nausea Nausea alone Wheezing [facility] Diagnosis ADHD (attention deficit hyperactivity disorder), combined type ([facility])- Primary Attention deficit disorder with hyperactivity Anxiety Anxiety state, unspecified Anxiety- Primary Anxiety state, unspecified Tobacco user Tobacco use disorder BMI 29.0-29.9,adult Adult ADHD (attention deficit hyperactivity disorder) ([facility]) Mild depression ([facility]) Depressive disorder, not elsewhere classified Adult ADHD (attention deficit hyperactivity disorder) ([facility])- Primary Tobacco user Tobacco use disorder Anxiety Anxiety state, unspecified Adult ADHD (attention deficit hyperactivity disorder) ([facility])- Primary Neutropenia, unspecified ([facility]) Neutropenia, unspecified Tobacco user Tobacco use disorder BMI 29.0-29.9,adult Rheumatoid arthritis, involving unspecified site, unspecified whether rheumatoid factor present ([facility]) Anxiety Anxiety state, unspecified Subacute maxillary sinusitis Wheezing Nausea Nausea alone ADHD (attention deficit hyperactivity disorder), combined type ([facility])- Primary Attention deficit disorder with hyperactivity Opioid abuse, uncomplicated ([facility]) Tobacco user Tobacco use disorder Rheumatoid arthritis, involving unspecified site, unspecified whether rheumatoid factor present ([facility]) Neutropenia, unspecified type ([facility]) Mild depression ([facility]) Depressive disorder, not elsewhere classified Anxiety Anxiety state, unspecified BMI 29.0-29.9,adult [facility]* Diagnosis ADHD (attention deficit hyperactivity disorder), combined type ([facility])- Primary Attention deficit disorder with hyperactivity Anxiety Anxiety state, unspecified Anxiety- Primary Anxiety state, unspecified Tobacco user Tobacco use disorder BMI 29.0-29.9,adult Adult ADHD (attention deficit hyperactivity disorder) ([facility]) Mild depression ([facility]) Depressive disorder, not elsewhere classified Adult ADHD (attention deficit hyperactivity disorder) ([facility])- Primary Tobacco user Tobacco use disorder Anxiety Anxiety state, unspecified Adult ADHD (attention deficit hyperactivity disorder) ([facility])- Primary Neutropenia, unspecified ([facility]) Neutropenia, unspecified Tobacco user Tobacco use disorder BMI 29.0-29.9,adult Rheumatoid arthritis, involving unspecified site, unspecified whether rheumatoid factor present ([facility]) Anxiety Anxiety state, unspecified Subacute maxillary sinusitis Wheezing Nausea Nausea alone ADHD (attention deficit hyperactivity disorder), combined type ([facility])- Primary Attention deficit disorder with hyperactivity Opioid abuse, uncomplicated ([facility]) Tobacco user Tobacco use disorder Rheumatoid arthritis, involving unspecified site, unspecified whether rheumatoid factor present ([facility]) Neutropenia, unspecified type ([facility]) Mild depression ([facility]) Depressive disorder, not elsewhere classified Anxiety Anxiety state, unspecified BMI 29.0-29.9,adult Wheezing [facility]* Diagnosis Adult ADHD (attention deficit hyperactivity disorder) ([facility])- Primary Neutropenia, unspecified ([facility]) Neutropenia, unspecified Tobacco user Tobacco use disorder BMI 29.0-29.9,adult Rheumatoid arthritis, involving unspecified site, unspecified whether rheumatoid factor present ([facility]) Anxiety Anxiety state, unspecified Subacute maxillary sinusitis Wheezing Nausea Nausea alone [facility]* Diagnosis ADHD (attention deficit hyperactivity disorder), combined type ([facility])- Primary Attention deficit disorder with hyperactivity Anxiety Anxiety state, unspecified Anxiety- Primary Anxiety state, unspecified Tobacco user Tobacco use disorder BMI 29.0-29.9,adult Adult ADHD (attention deficit hyperactivity disorder) ([facility]) Mild depression ([facility]) Depressive disorder, not elsewhere classified Adult ADHD (attention deficit hyperactivity disorder) ([facility])- Primary Tobacco user Tobacco use disorder Anxiety Anxiety state, unspecified Adult ADHD (attention deficit hyperactivity disorder) ([facility])- Primary Neutropenia, unspecified ([facility]) Neutropenia, unspecified Tobacco user Tobacco use disorder BMI 29.0-29.9,adult Rheumatoid arthritis, involving unspecified site, unspecified whether rheumatoid factor present ([facility]) Anxiety Anxiety state, unspecified Subacute maxillary sinusitis Wheezing Nausea Nausea alone ADHD (attention deficit hyperactivity disorder), combined type ([facility])- Primary Attention deficit disorder with hyperactivity Opioid abuse, uncomplicated ([facility]) Tobacco user Tobacco use disorder Rheumatoid arthritis, involving unspecified site, unspecified whether rheumatoid factor present ([facility]) Neutropenia, unspecified type ([facility]) Mild depression ([facility]) Depressive disorder, not elsewhere classified Anxiety Anxiety state, unspecified BMI 29.0-29.9,adult Well woman exam with routine gynecological exam- Primary Routine gynecological examination Rheumatoid arthritis, unspecified ([facility]) Opioid abuse, uncomplicated ([facility]) Tobacco user Tobacco use disorder Screening [facility] for [facility] Diagnosis Seropositive rheumatoid arthritis (HCC)- Primary Rheumatoid arthritis [facility] Diagnosis Seropositive rheumatoid arthritis (HCC)- Primary Rheumatoid arthritis Medication monitoring encounter Encounter for therapeutic drug monitoring [facility] Diagnosis Seropositive rheumatoid arthritis (HCC)- Primary Rheumatoid arthritis [facility] Diagnosis ADHD (attention deficit hyperactivity disorder), combined type ([facility])- Primary Attention deficit disorder with hyperactivity Anxiety Anxiety state, unspecified Anxiety- Primary Anxiety state, unspecified Tobacco user Tobacco use disorder BMI 29.0-29.9,adult Adult ADHD (attention deficit hyperactivity disorder) ([facility]) Mild depression ([facility]) Depressive disorder, not elsewhere classified Adult ADHD (attention deficit hyperactivity disorder) ([facility])- Primary Tobacco user Tobacco use disorder Anxiety Anxiety state, unspecified Adult ADHD (attention deficit hyperactivity disorder) ([facility])- Primary Neutropenia, unspecified ([facility]) Neutropenia, unspecified Tobacco user Tobacco use disorder BMI 29.0-29.9,adult Rheumatoid arthritis, involving unspecified site, unspecified whether rheumatoid factor present ([facility]) Anxiety Anxiety state, unspecified Subacute maxillary sinusitis Wheezing Nausea Nausea alone ADHD (attention deficit hyperactivity disorder), combined type ([facility])- Primary Attention deficit disorder with hyperactivity Opioid abuse, uncomplicated ([facility]) Tobacco user Tobacco use disorder Rheumatoid arthritis, involving unspecified site, unspecified whether rheumatoid factor present ([facility]) Neutropenia, unspecified type ([facility]) Mild depression ([facility]) Depressive disorder, not elsewhere classified Anxiety Anxiety state, unspecified BMI 29.0-29.9,adult Well woman exam with routine gynecological exam- Primary Routine gynecological examination Rheumatoid arthritis, unspecified ([facility]) Opioid abuse, uncomplicated ([facility]) Tobacco user Tobacco use disorder Screening mammogram for breast cancer Wheezing [facility]* Diagnosis ADHD (attention deficit hyperactivity disorder), combined type ([facility])- Primary Attention deficit disorder with hyperactivity Anxiety Anxiety state, unspecified Anxiety- Primary Anxiety state, unspecified Tobacco user Tobacco use disorder BMI 29.0-29.9,adult Adult ADHD (attention deficit hyperactivity disorder) ([facility]) Mild depression ([facility]) Depressive disorder, not elsewhere classified Adult ADHD (attention deficit hyperactivity disorder) ([facility])- Primary Tobacco user Tobacco use disorder Anxiety Anxiety state, unspecified Adult ADHD (attention deficit hyperactivity disorder) ([facility])- Primary Neutropenia, unspecified ([facility]) Neutropenia, unspecified Tobacco user Tobacco use disorder BMI 29.0-29.9,adult Rheumatoid arthritis, involving unspecified site, unspecified whether rheumatoid factor present ([facility]) Anxiety Anxiety state, unspecified Subacute maxillary sinusitis Wheezing Nausea Nausea alone ADHD (attention deficit hyperactivity disorder), combined type ([facility])- Primary Attention deficit disorder with hyperactivity Opioid abuse, uncomplicated ([facility]) Tobacco user Tobacco use disorder Rheumatoid arthritis, involving unspecified site, unspecified whether rheumatoid factor present ([facility]) Neutropenia, unspecified type ([facility]) Mild depression ([facility]) Depressive disorder, not elsewhere classified Anxiety Anxiety state, unspecified BMI 29.0-29.9,adult Well woman exam with routine gynecological exam- Primary Routine gynecological examination Rheumatoid arthritis, unspecified ([facility] [facility] Opioid abuse, uncomplicated ([facility]) Tobacco user Tobacco use disorder Screening mammogram for breast cancer ADHD (attention deficit hyperactivity disorder), combined type ([facility])- Primary Attention deficit disorder with hyperactivity Neutropenia, unspecified type ([facility]) Opioid abuse, uncomplicated ([facility]) Cigarette nicotine dependence without complication Anxiety Anxiety state, unspecified Wheezing Nausea Nausea alone documented in this encounter [facility]* Diagnosis ADHD (attention deficit hyperactivity disorder), combined type ([facility])- Primary Attention deficit disorder with hyperactivity Anxiety Anxiety state, unspecified Anxiety- Primary Anxiety state, unspecified Tobacco user Tobacco use disorder BMI 29.0-29.9,adult Adult ADHD (attention deficit hyperactivity disorder) ([facility]) Mild depression ([facility]) Depressive disorder, not elsewhere classified Adult ADHD (attention deficit hyperactivity disorder) ([facility])- Primary Tobacco user Tobacco use disorder Anxiety Anxiety state, unspecified Adult ADHD (attention deficit hyperactivity disorder) ([facility])- Primary Neutropenia, unspecified ([facility]) Neutropenia, unspecified Tobacco user Tobacco use disorder BMI 29.0-29.9,adult Rheumatoid arthritis, involving unspecified site, unspecified whether rheumatoid factor present ([facility]) Anxiety Anxiety state, unspecified Subacute maxillary sinusitis Wheezing Nausea Nausea alone ADHD (attention deficit hyperactivity disorder), combined type ([facility])- Primary Attention deficit disorder with hyperactivity Opioid abuse, uncomplicated ([facility]) Tobacco user Tobacco use disorder Rheumatoid arthritis, involving unspecified site, unspecified whether rheumatoid factor present ([facility]) Neutropenia, unspecified type ([facility]) Mild depression ([facility]) Depressive disorder, not elsewhere classified Anxiety Anxiety state, unspecified BMI 29.0-29.9,adult Well woman exam with routine gynecological exam- Primary Routine gynecological examination Rheumatoid arthritis, unspecified Opioid abuse, uncomplicated ([facility]) Tobacco user Tobacco use disorder Screening mammogram for breast cancer ADHD (attention deficit hyperactivity disorder), combined type ([facility])- Primary Attention deficit disorder with hyperactivity Neutropenia, unspecified type ([facility]) Opioid abuse, uncomplicated ([facility]) Cigarette nicotine dependence without complication Anxiety Anxiety state, unspecified Wheezing Nausea Nausea alone Wheezing documented in this encounter [facility]* Diagnosis ADHD (attention deficit hyperactivity disorder), combined type ([facility])- Primary Attention deficit disorder with hyperactivity Anxiety Anxiety state, unspecified Anxiety- Primary Anxiety state, unspecified Tobacco user Tobacco use disorder BMI 29.0-29.9,adult Adult ADHD (attention deficit hyperactivity disorder) ([facility]) Mild depression ([facility]) Depressive disorder, not elsewhere classified Adult ADHD (attention deficit hyperactivity disorder) ([facility])- Primary Tobacco user Tobacco use disorder Anxiety Anxiety state, unspecified Adult ADHD (attention deficit hyperactivity disorder) ([facility])- Primary Neutropenia, unspecified ([facility]) Neutropenia, unspecified Tobacco user Tobacco use disorder BMI 29.0-29.9,adult Rheumatoid arthritis, involving unspecified site, unspecified whether rheumatoid factor present ([facility]) Anxiety Anxiety state, unspecified Subacute maxillary sinusitis Wheezing Nausea Nausea alone ADHD (attention deficit hyperactivity disorder), combined type ([facility])- Primary Attention deficit disorder with hyperactivity Opioid abuse, uncomplicated ([facility]) Tobacco user Tobacco use disorder Rheumatoid arthritis, involving unspecified site, unspecified whether rheumatoid factor present ([facility]) Neutropenia, unspecified type ([facility]) Mild depression ([facility]) Depressive disorder, not elsewhere classified Anxiety Anxiety state, unspecified BMI 29.0-29.9,adult Well woman exam with routine gynecological exam- Primary Routine gynecological examination Rheumatoid arthritis, unspecified Opioid abuse, uncomplicated ([facility]) Tobacco user Tobacco use disorder Screening mammogram for breast cancer ADHD (attention deficit hyperactivity disorder), combined type ([facility])- Primary Attention deficit disorder with hyperactivity Neutropenia, unspecified type ([facility]) Opioid abuse, uncomplicated ([facility]) Cigarette nicotine dependence without complication Anxiety Anxiety state, unspecified Wheezing Nausea Nausea alone ADHD (attention deficit hyperactivity disorder), combined type ([facility]) Attention deficit disorder with hyperactivity documented in this encounter [facility]* Diagnosis ADHD (attention deficit hyperactivity disorder), combined type- Primary Attention deficit disorder with hyperactivity Anxiety Anxiety state, unspecified Anxiety- Primary Anxiety state, unspecified Tobacco user Tobacco use disorder BMI 29.0-29.9,adult Adult ADHD (attention deficit hyperactivity disorder) Mild depression Depressive disorder, not elsewhere classified Adult ADHD (attention deficit hyperactivity disorder)- Primary Tobacco user Tobacco use disorder Anxiety Anxiety state, unspecified Adult ADHD (attention deficit hyperactivity disorder)- Primary Neutropenia, unspecified Tobacco user Tobacco use disorder BMI 29.0-29.9,adult Rheumatoid arthritis, involving unspecified site, unspecified whether rheumatoid factor present (HCC) Anxiety Anxiety state, unspecified Subacute maxillary sinusitis Wheezing Nausea Nausea alone ADHD (attention deficit hyperactivity disorder), combined type- Primary Attention deficit disorder with hyperactivity Opioid abuse, uncomplicated ([facility]) Tobacco user Tobacco use disorder Rheumatoid arthritis, involving unspecified site, unspecified whether rheumatoid factor present (HCC) Neutropenia, unspecified type Mild depression Depressive disorder, not elsewhere classified Anxiety Anxiety state, unspecified BMI 29.0-29.9,adult Well woman exam with routine gynecological exam- Primary Routine gynecological examination Rheumatoid arthritis, unspecified ([facility]) Opioid abuse, uncomplicated ([facility]) Tobacco user Tobacco use disorder Screening mammogram for breast cancer ADHD (attention deficit hyperactivity disorder), combined type- Primary Attention deficit disorder with hyperactivity Neutropenia, unspecified type Opioid abuse, uncomplicated ([facility]) Cigarette nicotine dependence without complication Anxiety Anxiety state, unspecified Wheezing Nausea Nausea alone ADHD (attention deficit hyperactivity disorder), combined type- Primary Attention deficit disorder with hyperactivity Opioid abuse, uncomplicated ([facility]) Mild depression Depressive disorder, not elsewhere classified Anxiety Anxiety state, unspecified Cigarette nicotine dependence without complication Median nerve neuritis, left documented in this encounter [facility] for referral (narrative)* Diagnostic Procedure Only (Routine) - Authorized Specialty Diagnoses / Procedures Referred By Contac t Referred To Contact XR IMAGING Diagnoses Seropositive rheumatoid arthritis (HCC) Procedures XR FOOT GENERAL 3V AP/LAT/OBL BILATERAL RADEX FOOT COMPLETE MINIMUM 3 VIEWS Fariba Hill APRN.PIGMENT MIXER [address] [place] [address] Xr Imaging Referral ID Status Reason Start Date Expiration Date Visits Requested Visits Authorized [id number] Authorized Auto-Generat ed Referral 02/24/2022 03/26/2023 1 1 [facility] for referral (narrative)* Diagnostic Procedure Only (Routine) - Pending Review Specialty Diagnoses / Procedures Referred By Contac t Referred To Contact XR IMAGING Diagnoses Seropositive rheumatoid arthritis (HCC) Procedures XR FOOT GENERAL 3V AP/LAT/OBL BILATERAL RADEX FOOT COMPLETE MINIMUM 3 VIEWS Fariba Hill APRN.PIGMENT MIXER [address] [place] [address] Xr Imaging Referral ID Status Reason Start Date Expiration Date Visits Requested Visits Authorized [id number] Pending Review Auto-Generat ed Referral 02/28/2022 03/30/2023 1 1 [facility] for referral (narrative)* Diagnostic Procedure Only (Routine) - Pending Review Specialty Diagnoses / Procedures Referred By Contac t Referred To Contact XR IMAGING Diagnoses Seropositive rheumatoid arthritis (HCC) Procedures XR FOOT GENERAL 3V AP/LAT/OBL BILATERAL RADEX FOOT COMPLETE MINIMUM 3 VIEWS Fariba Hill APRN.PIGMENT MIXER [address] [place] [address] [place] [address] Referral ID Status Reason Start Date Expiration Date Visits Requested Visits Authorized [id number] Pending Review Auto-Generat ed Referral 10/22/2022 11/21/2023 1 1 [facility] for referral (narrative)* Diagnostic Procedure Only (Routine) - Pending Review Specialty Diagnoses / Procedures Referred By Contac t Referred To Contact US IMAGING Diagnoses Seropositive rheumatoid arthritis (HCC) Localized superficial swelling, mass, or lump Procedures US EXTREMITY MASS/FLUID COLLECTION LEFT Fariba Hill APRN.PIGMENT MIXER [address] [place] [address] [place] [address] Referral ID Status Reason Start Date Expiration Date Visits Requested Visits Authorized [id number] Pending Review Auto-Generat ed Referral 04/28/2023 05/27/2024 1 1 [facility] for visit Narrative* Diagnostic Procedure Only (Routine) - Closed Specialty Diagnoses / Procedures Referred By Contac t Referred To Contact XR IMAGING Diagnoses Seropositive rheumatoid arthritis (HCC) Procedures XR FOOT GENERAL 3V AP/LAT/OBL BILATERAL RADEX FOOT COMPLETE MINIMUM 3 VIEWS Fariba Hill APRN.PIGMENT MIXER [address] [facility] [address] [place] [address] Referral ID Status Reason Start Date Expiration Date V isits Requested Visits Authorized [id number] Closed Auto-Generate d Referral 04/14/2022 02/21/2023 1 1 [facility] Discharge Instructions * Instructions* Loida Caro [...] be sent through Care Everywhere. * Candidiasis ([place]) * Miscarriage: Threatened ([place]) documented in this encounter* Instructions* Loida Caro PA-C - 01/28/2019 Use ice rest keep wrist in splint. Follow-up with orthopedic provider listed below for further evaluation of continued pain. * Attachments The following attachments cannot be sent through Care Everywhere. * Carpal Tunnel Syndrome ([place]) documented in this encounter* Instructions* Tami Payne RN - 05/02/2019 Outpatient Instructions for IM or Subcutaneous Injections [address] [place] [address] You are advised to carry out the [...] Outpatient Instructions for IM or Subcutaneous Injections [address] [place] [address] You are advised to carry out the [...] Follow-up with your OB doctor as specified. [facility] OB Department phone: Dr. Kera WORTHY Dr. Mendy Viera [facility] [address] [facility] [address] [facility] [address] [place] DIET Eat a well balanced diet focusing on foods high in fiber and protein. Drink plenty of fluids especially water. To avoid constipation you may take a mild stool softener as recommended by your doctor or barrel loader. ACTIVITY Gradually increase your activity. Resume exercise regimen only after advice by your doctor or barrel loader. Avoid lifting anything heavier than a gallon of milk for SIX weeks. Avoid driving until your doctor or barrel loader has given their approval. Rise slowly from [...] of harming yourself or your . If infant will not stop crying, contact another adult for help or place infant in their crib on their back and [...] medications as recommended by your doctor or barrel loader for pain If you develop a warm, [...] vitamins as directed by your doctor or barrel loader. Refer to the booklet in the folder/binder for more information. If you feel you need more assistance or have questions, please call Sarah Wang IBCLC, healthcare market consultant, at or the OB department to [...] through Care Everywhere. * COVID-19 Viral Test ([place]) documented in this encounter Assessments Diagnosis Threatened [...] FoundDocuments on File Type Date Recorded Patient Field Appraiser Expl anation Advance Directives and Living Will Power of Vice President Of Finance Documents on File Type Date Recorded Patient Field Appraiser Expl anation Advance Directives and Living Will Power of Vice President Of Finance Latest Code Status on File Code Status Date Activated Date Inactivated Comments Full Code 07/12/2019 1:54 PM Full Code 07/11/2019 8:21 PM 07/12/2019 1:54 PM Full Code 07/11/2019 7:48 PM 07/11/2019 7:51 PM Documents on File Type Date Recorded Patient Field Appraiser Expl anation ACP-Advance Directive ACP-Power of Vice President Of Finance Latest Code Status on File Code Status Date Activated Date Inactivated Comments Full Code 07/12/2019 1:54 PM 07/13/2019 3:24 PM Reason for Referral Status Reason Specialty Diagnoses / Procedures Re ferred By Contact Referred To Contact Open Radiology Diagnoses Superficial thrombophlebitis of left upper extremity Procedures VL DUP UPPER EXTREMITY VENOUS LEFT Mk Mayo MD [facility] [place] [address] Status Reason Specialty Diagnoses / Procedures Referre d By Contact Referred To Contact Open Radiology Diagnoses Right upper quadrant abdominal pain Procedures US Gallbladder Tosha Mcginnis, MANAGED CARE PROVIDER - CNM [address] [facility] [address] [place] [address] Specialty Diagnoses / Procedures Referred By Contac t Referred To Contact Podiatry Diagnoses Pain in left foot Procedures CONSULT TO PODIATRY OFFICE/OUTPATIENT [facility]3] 60-74 MINUTES Fariba Hill, MANAGED CARE PROVIDER.PIGMENT MIXER [address] [place] [address] Referral ID Status Reason Start Date Expiration Date Visits Requested Visits Authorized [id number] Pending Review PCP Requested Referral 2 01/05/2023 1 1 Specialty Diagnoses / Procedures Referred By Contac t Referred To Contact Orthopedics Diagnoses Pain in right foot Procedures CONSULT TO ORTHOPAEDICS OFFICE/OUTPATIENT [facility]3] 60-74 MINUTES Fariba Hill, MANAGED CARE PROVIDER.PIGMENT MIXER [address] [place] [address] Referral ID Status Reason Start Date Expiration Date Visits Requested Visits Authorized [id number] Pending Review PCP Requested Referral 3 01/20/2024 1 1 Specialty Diagnoses / Procedures Referred By Contac t Referred To Contact Dermatology Diagnoses Localized superficial swelling, mass, or lump Seropositive rheumatoid arthritis (HCC) Procedures CONSULT TO DERMATOLOGY OFFICE/OUTPATIENT [facility]3] 60 MINUTES Fariba Hill, MANAGED CARE PROVIDER.PIGMENT MIXER [address] [place] [address] Referral ID Status Reason Start Date Expiration Date Visits Requested Visits Authorized [id number] Authorized PCP Requested Referral 04/28/2023 04/27/2024 1 1 Specialty Diagnoses / Procedures Referred By Contac t Referred To Contact US IMAGING Diagnoses Localized superficial swelling, mass, or lump Seropositive rheumatoid arthritis (HCC) Procedures US ELBOW LEFT US LMTD JOINT/OTH NONVASC XTR STRUX R-T W/IMG Fariba Hill, MANAGED CARE PROVIDER.PIGMENT MIXER [address] [place] [address] [place] [address] Referral ID Status Reason Start Date Expiration Date Visits Requested Visits Authorized [id number] Pending Review Auto-Generat ed Referral 04/28/2023 05/27/2024 1 1 Specialty Diagnoses / Procedures Referred By Contac t Referred To Contact Diagnoses Adult ADHD (attention deficit hyperactivity disorder) ([facility]) Niya Santiago, MARY [address] [place] [address] Referral ID Status Reason Start Date Expiration Date V isits Requested Visits Authorized [id number] Pending Review 1 1 Referral ID Status Reason Start Date Expiration Date V isits Requested Visits Authorized [id number] Pending Review 1 1 Referral ID Status Reason Start Date Expiration Date V isits Requested Visits Authorized [id number] Pending Review 1 1 History of Present Illness * Any Palencia RN - 07/13/2019 12:10 PM EDT [place] discharge instructions explained to pt, pt v.u. [...] 98 F (36.7 C) Oral 61 18 20 2014 125/66 97.6 F (36.4 C) Oral 70 20 052020 1849 113/76 97.5 F (36.4 C) Axillary [...] 05/20/20 0915 97.5 F (36.4 C) Axillary 05/2020 0912 118/82 72 05/20/20 0906 117/72 67 98 % 05/20/20 0901 97 % 05/20/20 0900 (!) 105/59 63 05/20/20 0856 97 % 05/20/20 0855 124/69 69 05/20/20 0853 130/84 86 07/12/19 0851 127/76 72 07/12/19 0849 133/87 90 07/12/19 0846 132/84 81 07/12/19 0844 130/82 77 07/12/19 0843 97 % 07/12/19 0842 129/83 76 [...] up in office and views it while policy writer typist talking. Updated that pt 3 cm, was checked during decel. Primary nurse currently placing calle. Kindrates to wait 1/2 hour then call [...] 1 dose, On Diane 11/13/21 at 1330, No more than 4000 mg [...] 25 mg, ORAL, ONCE, 1 dose, On Wed10/22/22 at 1000 Given 10/22/2022 9:49 AM EDT [...] Infusion Specialty Diagnoses / Procedures Referred By [facility] Referred To Contact Diagnoses Seropositive rheumatoid arthritis (HCC) Procedures INJECTION, RENFLEXIS INJ. AVSOLA, 10 MG Juan Daniel Leos MD [address] [place] [address] Rheu Infusion [facility] [address] [place] [address] Referral ID Status Reason Start Date Expiration Date V isits Requested Visits Authorized [id number] Authorized 07/01/2021 09/01/2023 99 99 Reason Comments renflexis infusion Specialty Diagnoses / Procedures Referred By [facility] Referred To Contact Diagnoses Seropositive rheumatoid arthritis (HCC) Procedures INJECTION, RENFLEXIS Juan Daniel Leos MD [address] [place] [address] Rheu Infusion [facility] [address] [place] [address] Referral ID Status Reason Start Date Expiration Date V isits Requested Visits Authorized [id number] Authorized 07/01/2021 08/22/2022 9 9 Referral ID Status Reason Start Date Expiration Date V isits Requested Visits Authorized [id number] Authorized 07/01/2021 01/18/2022 5 5 Reason Comments [...] Referred To Contact Diagnoses Term Tosha Viera, MANAGED CARE PROVIDER - CN [address] [facility] [address] [place] [address] [facility] Reason Comments Covid Testing Pt states positive e xposure with loss of smell/taste and cough Otalgia Right Joint Pain Knees/feet r/t arthr itis Reason Comments Cough ongoing for a week Status Reason Specialty Diagnoses / Procedures Referre d By Contact Referred To Contact Open Radiology Diagnoses Right upper quadrant abdominal pain Procedures US Gallbladder Ruq Tosha Viera, MANAGED CARE PROVIDER - CN [address] [facility] [address] [place] [address] Reason Comments Insurance Authorization Prior Auth Delay ed: Additional Info needed for Renflexis Reason Comments Appointment Specialty Diagnoses / Procedures Referred By Contac t Referred To Contact Diagnoses Seropositive rheumatoid arthritis (HCC) Procedures INJECTION, RENFLEXIS Juan Daniel Leos MD [address] [place] [address] Rheu Infusion [facility] [address] [place] [address] Reason Comments Follow Up Reason Comments Results [...] Expiration Date Visits Re quested Visits Authorized [id number] Closed 07/01/2021 09/01/2023 16 16 Specialty Diagnoses / Procedures Referred By [facility] Referred To Contact Diagnoses Seropositive rheumatoid arthritis (HCC) Procedures TOCILIZUMAB INJECTION tocilizumab 281.2 mg (ACTEMRA) Q28 days Fariba Hill, MANAGED CARE PROVIDER.PIGMENT MIXER [address] [place] [address] Rheu Infusion [facility] [address] [place] [address] Referral ID Status Reason Start Date Expiration Date V isits Requested Visits Authorized [id number] Authorized 11/10/2022 11/20/2023 14 14 Reason Comments Lab Orders Specialty Diagnoses / Procedures Referred By [facility] Referred To Contact Diagnoses Seropositive rheumatoid arthritis (HCC) Procedures TOCILIZUMAB INJECTION tocilizumab 281.2 mg (ACTEMRA) Q28 days Fariba Hill, MANAGED CARE PROVIDER.PIGMENT MIXER [address] [place] [address] Rheu Infusion [facility] [address] [place] [address] Reason Comments F/U 3 Month continues to have se giovanni pain in hands wrists and Rt foot x 2-3 wks Referral ID Status Reason Start Date Expiration Date Visits Requested Visits Authorized [id number] Authorized Clearance Not Met - Pt Rescheduled/ [...] Comments Patient Request Reason Comments Med Refill Reason Comments ADHD Ordered Prescriptions (unrec ognized section and content) [...] On 09/15/20 at 1745, For 1 dose 1840 (Given - Provid er: Helen Reinoso RCP) Source Comments (unrecognize d section and content) In the event this informatio n is protected by the Federal Confidentiality of Alcohol and Drug Abuse Patient Records regulations: The Federal rules restrict any use of the information to criminally investigate or prosecute any alcohol or drug abuse patient.[facility] the event this information is protected by the Federal Confidentiality of Alcohol and Drug Abuse Patient Records regulations: The Federal rules restrict any use of the information to criminally investigate or prosecute any alcohol or drug abuse patient.[facility] the event this information is protected by the Federal Confidentiality of Alcohol and Drug Abuse Patient Records regulations: The Federal rules restrict any use of the information to criminally investigate or prosecute any alcohol or drug abuse patient.[facility] the event this information is protected by the Federal Confidentiality of Alcohol and Drug Abuse Patient Records regulations: The Federal rules restrict any use of the information to criminally investigate or prosecute any alcohol or drug abuse patient.[facility] the event this information is protected by the Federal Confidentiality of Alcohol and Drug Abuse Patient Records regulations: The Federal rules restrict any use of the information to criminally investigate or prosecute any alcohol or drug abuse patient.[facility] the event this information is protected by the Federal Confidentiality of Alcohol and Drug Abuse Patient Records regulations: The Federal rules restrict any use of the information to criminally investigate or prosecute any alcohol or drug abuse patient.[facility]In the event this information is protected by the Federal Confidentiality of Alcohol and Drug Abuse Patient Records regulations: The Federal rules restrict any use of the information to criminally investigate or prosecute any alcohol or drug abuse patient.[facility] HospitalIn the event this information is protected by the Federal Confidentiality of Alcohol and Drug Abuse Patient Records regulations: The Federal rules restrict any use of the information to criminally investigate or prosecute any alcohol or drug abuse patient.[facility] HospitalIn the event this information is protected by the Federal Confidentiality of Alcohol and Drug Abuse Patient Records regulations: The Federal rules restrict any use of the information to criminally investigate or prosecute any alcohol or drug abuse patient.[facility] HospitalIn the event this information is protected by the Federal Confidentiality of Alcohol and Drug Abuse Patient Records regulations: The Federal rules restrict any use of the information to criminally investigate or prosecute any alcohol or drug abuse patient.[facility] HospitalIn the event this information is protected by the Federal Confidentiality of Alcohol and Drug Abuse Patient Records regulations: The Federal rules restrict any use of the information to criminally investigate or prosecute any alcohol or drug abuse patient.[facility] HospitalIn the event this information is protected by the Federal Confidentiality of Alcohol and Drug Abuse Patient Records regulations: The Federal rules restrict any use of the information to criminally investigate or prosecute any alcohol or drug abuse patient.[facility] the event this information is protected by the Federal Confidentiality of Alcohol and Drug Abuse Patient Records regulations: The Federal rules restrict any use of the information to criminally investigate or prosecute any alcohol or drug abuse patient.[facility] HospitalIn the event this information is protected by the Federal Confidentiality of Alcohol and Drug Abuse Patient Records regulations: The Federal rules restrict any use of the information to criminally investigate or prosecute any alcohol or drug abuse patient.[facility] HospitalIn the event this information is protected by the Federal Confidentiality of Alcohol and Drug Abuse Patient Records regulations: The Federal rules restrict any use of the information to criminally investigate or prosecute any alcohol or drug abuse patient.[facility]In the event this information is protected by the Federal Confidentiality of Alcohol and Drug Abuse Patient Records regulations: The Federal rules restrict any use of the information to criminally investigate or prosecute any alcohol or drug abuse patient.[facility] HospitalIn the event this information is protected by the Federal Confidentiality of Alcohol and Drug Abuse Patient Records regulations: The Federal rules restrict any use of the information to criminally investigate or prosecute any alcohol or drug abuse patient.[facility] HospitalIn the event this information is protected by the Federal Confidentiality of Alcohol and Drug Abuse Patient Records regulations: The Federal rules restrict any use of the information to criminally investigate or prosecute any alcohol or drug abuse patient.[facility] HospitalIn the event this information is protected by the Federal Confidentiality of Alcohol and Drug Abuse Patient Records regulations: The Federal rules restrict any use of the information to criminally investigate or prosecute any alcohol or drug abuse patient.[facility] HospitalIn the event this information is protected by the Federal Confidentiality of Alcohol and Drug Abuse Patient Records regulations: The Federal rules restrict any use of the information to criminally investigate or prosecute any alcohol or drug abuse patient.[facility] HospitalIn the event this information is protected by the Federal Confidentiality of Alcohol and Drug Abuse Patient Records regulations: The Federal rules restrict any use of the information to criminally investigate or prosecute any alcohol or drug abuse patient.[facility] HospitalIn the event this information is protected by the Federal Confidentiality of Alcohol and Drug Abuse Patient Records regulations: The Federal rules restrict any use of the information to criminally investigate or prosecute any alcohol or drug abuse patient.[facility] HospitalIn the event this information is protected by the Federal Confidentiality of Alcohol and Drug Abuse Patient Records regulations: The Federal rules restrict any use of the information to criminally investigate or prosecute any alcohol or drug abuse patient.[facility] HospitalIn the event this information is protected by the Federal Confidentiality of Alcohol and Drug Abuse Patient Records regulations: The Federal rules restrict any use of the information to criminally investigate or prosecute any alcohol or drug abuse patient.[facility] HospitalIn the event this information is protected by the Federal Confidentiality of Alcohol and Drug Abuse Patient Records regulations: The Federal rules restrict any use of the information to criminally investigate or prosecute any alcohol or drug abuse patient.[facility] HospitalIn the event this information is protected by the Federal Confidentiality of Alcohol and Drug Abuse Patient Records regulations: The Federal rules restrict any use of the information to criminally investigate or prosecute any alcohol or drug abuse patient.[facility] HospitalIn the event this information is protected by the Federal Confidentiality of Alcohol and Drug Abuse Patient Records regulations: The Federal rules restrict any use of the information to criminally investigate or prosecute any alcohol or drug abuse patient.[facility] HospitalIn the event this information is protected by the Federal Confidentiality of Alcohol and Drug Abuse Patient Records regulations: The Federal rules restrict any use of the information to criminally investigate or prosecute any alcohol or drug abuse patient.[facility] HospitalIn the event this information is protected by the Federal Confidentiality of Alcohol and Drug Abuse Patient Records regulations: The Federal rules restrict any use of the information to criminally investigate or prosecute any alcohol or drug abuse patient.[facility] HospitalIn the event this information is protected by the Federal Confidentiality of Alcohol and Drug Abuse Patient Records regulations: The Federal rules restrict any use of the information to criminally investigate or prosecute any alcohol or drug abuse patient.[facility] HospitalIn the event this information is protected by the Federal Confidentiality of Alcohol and Drug Abuse Patient Records regulations: The Federal rules restrict any use of the information to criminally investigate or prosecute any alcohol or drug abuse patient.[facility] HospitalIn the event this information is protected by the Federal Confidentiality of Alcohol and Drug Abuse Patient Records regulations: The Federal rules restrict any use of the information to criminally investigate or prosecute any alcohol or drug abuse patient.[facility] HospitalIn the event this information is protected by the Federal Confidentiality of Alcohol and Drug Abuse Patient Records regulations: The Federal rules restrict any use of the information to criminally investigate or prosecute any alcohol or drug abuse patient.[facility] HospitalIn the event this information is protected by the Federal Confidentiality of Alcohol and Drug Abuse Patient Records regulations: The Federal rules restrict any use of the information to criminally investigate or prosecute any alcohol or drug abuse patient.[facility] HospitalIn the event this information is protected by the Federal Confidentiality of Alcohol and Drug Abuse Patient Records regulations: The Federal rules restrict any use of the information to criminally investigate or prosecute any alcohol or drug abuse patient.[facility] HospitalIn the event this information is protected by the Federal Confidentiality of Alcohol and Drug Abuse Patient Records regulations: The Federal rules restrict any use of the information to criminally investigate or prosecute any alcohol or drug abuse patient.[facility] HospitalIn the event this information is protected by the Federal Confidentiality of Alcohol and Drug Abuse Patient Records regulations: The Federal rules restrict any use of the information to criminally investigate or prosecute any alcohol or drug abuse patient.[facility] HospitalIn the event this information is protected by the Federal Confidentiality of Alcohol and Drug Abuse Patient Records regulations: The Federal rules restrict any use of the information to criminally investigate or prosecute any alcohol or drug abuse patient.[facility] HospitalIn the event this information is protected by the Federal Confidentiality of Alcohol and Drug Abuse Patient Records regulations: The Federal rules restrict any use of the information to criminally investigate or prosecute any alcohol or drug abuse patient.[facility] HospitalIn the event this information is protected by the Federal Confidentiality of Alcohol and Drug Abuse Patient Records regulations: The Federal rules restrict any use of the information to criminally investigate or prosecute any alcohol or drug abuse patient.[facility] HospitalIn the event this information is protected by the Federal Confidentiality of Alcohol and Drug Abuse Patient Records regulations: The Federal rules restrict any use of the information to criminally investigate or prosecute any alcohol or drug abuse patient.[facility] HospitalIn the event this information is protected by the Federal Confidentiality of Alcohol and Drug Abuse Patient Records regulations: The Federal rules restrict any use of the information to criminally investigate or prosecute any alcohol or drug abuse patient.[facility] HospitalIn the event this information is protected by the Federal Confidentiality of Alcohol and Drug Abuse Patient Records regulations: The Federal rules restrict any use of the information to criminally investigate or prosecute any alcohol or drug abuse patient.[facility] HospitalIn the event this information is protected by the Federal Confidentiality of Alcohol and Drug Abuse Patient Records regulations: The Federal rules restrict any use of the information to criminally investigate or prosecute any alcohol or drug abuse patient.[facility] HospitalIn the event this information is protected by the Federal Confidentiality of Alcohol and Drug Abuse Patient Records regulations: The Federal rules restrict any use of the information to criminally investigate or prosecute any alcohol or drug abuse patient.[facility] HospitalIn the event this information is protected by the Federal Confidentiality of Alcohol and Drug Abuse Patient Records regulations: The Federal rules restrict any use of the information to criminally investigate or prosecute any alcohol or drug abuse patient.[facility] HospitalIn the event this information is protected by the Federal Confidentiality of Alcohol and Drug Abuse Patient Records regulations: The Federal rules restrict any use of the information to criminally investigate or prosecute any alcohol or drug abuse patient.[facility] HospitalIn the event this information is protected by the Federal Confidentiality of Alcohol and Drug Abuse Patient Records regulations: The Federal rules restrict any use of the information to criminally investigate or prosecute any alcohol or drug abuse patient.[facility] HospitalIn the event this information is protected by the Federal Confidentiality of Alcohol and Drug Abuse Patient Records regulations: The Federal rules restrict any use of the information to criminally investigate or prosecute any alcohol or drug abuse patient.[facility] HospitalIn the event this information is protected by the Federal Confidentiality of Alcohol and Drug Abuse Patient Records regulations: The Federal rules restrict any use of the information to criminally investigate or prosecute any alcohol or drug abuse patient.[facility] HospitalIn the event this information is protected by the Federal Confidentiality of Alcohol and Drug Abuse Patient Records regulations: The Federal rules restrict any use of the information to criminally investigate or prosecute any alcohol or drug abuse patient.[facility] HospitalIn the event this information is protected by the Federal Confidentiality of Alcohol and Drug Abuse Patient Records regulations: The Federal rules restrict any use of the information to criminally investigate or prosecute any alcohol or drug abuse patient.[facility] HospitalIn the event this information is protected by the Federal Confidentiality of Alcohol and Drug Abuse Patient Records regulations: The Federal rules restrict any use of the information to criminally investigate or prosecute any alcohol or drug abuse patient.[facility] HospitalIn the event this information is protected by the Federal Confidentiality of Alcohol and Drug Abuse Patient Records regulations: The Federal rules restrict any use of the information to criminally investigate or prosecute any alcohol or drug abuse patient.[facility] HospitalIn the event this information is protected by the Federal Confidentiality of Alcohol and Drug Abuse Patient Records regulations: The Federal rules restrict any use of the information to criminally investigate or prosecute any alcohol or drug abuse patient.[facility] HospitalIn the event this information is protected by the Federal Confidentiality of Alcohol and Drug Abuse Patient Records regulations: The Federal rules restrict any use of the information to criminally investigate or prosecute any alcohol or drug abuse patient.[facility] HospitalIn the event this information is protected by the Federal Confidentiality of Alcohol and Drug Abuse Patient Records regulations: The Federal rules restrict any use of the information to criminally investigate or prosecute any alcohol or drug abuse patient.[facility] HospitalIn the event this information is protected by the Federal Confidentiality of Alcohol and Drug Abuse Patient Records regulations: The Federal rules restrict any use of the information to criminally investigate or prosecute any alcohol or drug abuse patient.[facility] HospitalIn the event this information is protected by the Federal Confidentiality of Alcohol and Drug Abuse Patient Records regulations: The Federal rules restrict any use of the information to criminally investigate or prosecute any alcohol or drug abuse patient.[facility] HospitalIn the event this information is protected by the Federal Confidentiality of Alcohol and Drug Abuse Patient Records regulations: The Federal rules restrict any use of the information to criminally investigate or prosecute any alcohol or drug abuse patient.[facility] HospitalIn the event this information is protected by the Federal Confidentiality of Alcohol and Drug Abuse Patient Records regulations: The Federal rules restrict any use of the information to criminally investigate or prosecute any alcohol or drug abuse patient.[facility] HospitalIn the event this information is protected by the Federal Confidentiality of Alcohol and Drug Abuse Patient Records regulations: The Federal rules restrict any use of the information to criminally investigate or prosecute any alcohol or drug abuse patient.[facility] the event this information is protected by the Federal Confidentiality of Alcohol and Drug Abuse Patient Records regulations: The Federal rules restrict any use of the information to criminally investigate or prosecute any alcohol or drug abuse patient.[facility] HospitalIn the event this information is protected by the Federal Confidentiality of Alcohol and Drug Abuse Patient Records regulations: The Federal rules restrict any use of the information to criminally investigate or prosecute any alcohol or drug abuse patient.[facility] HospitalIn the event this information is protected by the Federal Confidentiality of Alcohol and Drug Abuse Patient Records regulations: The Federal rules restrict any use of the information to criminally investigate or prosecute any alcohol or drug abuse patient.[facility]In the event this information is protected by the Federal Confidentiality of Alcohol and Drug Abuse Patient Records regulations: The Federal rules restrict any use of the information to criminally investigate or prosecute any alcohol or drug abuse patient.[facility] HospitalIn the event this information is protected by the Federal Confidentiality of Alcohol and Drug Abuse Patient Records regulations: The Federal rules restrict any use of the information to criminally investigate or prosecute any alcohol or drug abuse patient.[facility] HospitalIn the event this information is protected by the Federal Confidentiality of Alcohol and Drug Abuse Patient Records regulations: The Federal rules restrict any use of the information to criminally investigate or prosecute any alcohol or drug abuse patient.[facility] HospitalIn the event this information is protected by the Federal Confidentiality of Alcohol and Drug Abuse Patient Records regulations: The Federal rules restrict any use of the information to criminally investigate or prosecute any alcohol or drug abuse patient.[facility] HospitalIn the event this information is protected by the Federal Confidentiality of Alcohol and Drug Abuse Patient Records regulations: The Federal rules restrict any use of the information to criminally investigate or prosecute any alcohol or drug abuse patient.[facility] HospitalIn the event this information is protected by the Federal Confidentiality of Alcohol and Drug Abuse Patient Records regulations: The Federal rules restrict any use of the information to criminally investigate or prosecute any alcohol or drug abuse patient.[facility] HospitalIn the event this information is protected by the Federal Confidentiality of Alcohol and Drug Abuse Patient Records regulations: The Federal rules restrict any use of the information to criminally investigate or prosecute any alcohol or drug abuse patient.[facility] HospitalIn the event this information is protected by the Federal Confidentiality of Alcohol and Drug Abuse Patient Records regulations: The Federal rules restrict any use of the information to criminally investigate or prosecute any alcohol or drug abuse patient.[facility] HospitalIn the event this information is protected by the Federal Confidentiality of Alcohol and Drug Abuse Patient Records regulations: The Federal rules restrict any use of the information to criminally investigate or prosecute any alcohol or drug abuse patient.[facility] HospitalIn the event this information is protected by the Federal Confidentiality of Alcohol and Drug Abuse Patient Records regulations: The Federal rules restrict any use of the information to criminally investigate or prosecute any alcohol or drug abuse patient.[facility] HospitalIn the event this information is protected by the Federal Confidentiality of Alcohol and Drug Abuse Patient Records regulations: The Federal rules restrict any use of the information to criminally investigate or prosecute any alcohol or drug abuse patient.[facility] HospitalIn the event this information is protected by the Federal Confidentiality of Alcohol and Drug Abuse Patient Records regulations: The Federal rules restrict any use of the information to criminally investigate or prosecute any alcohol or drug abuse patient.[facility] HospitalIn the event this information is protected by the Federal Confidentiality of Alcohol and Drug Abuse Patient Records regulations: The Federal rules restrict any use of the information to criminally investigate or prosecute any alcohol or drug abuse patient.[facility] HospitalIn the event this information is protected by the Federal Confidentiality of Alcohol and Drug Abuse Patient Records regulations: The Federal rules restrict any use of the information to criminally investigate or prosecute any alcohol or drug abuse patient.[facility] HospitalIn the event this information is protected by the Federal Confidentiality of Alcohol and Drug Abuse Patient Records regulations: The Federal rules restrict any use of the information to criminally investigate or prosecute any alcohol or drug abuse patient.[facility] HospitalIn the event this information is protected by the Federal Confidentiality of Alcohol and Drug Abuse Patient Records regulations: The Federal rules restrict any use of the information to criminally investigate or prosecute any alcohol or drug abuse patient.[facility] HospitalIn the event this information is protected by the Federal Confidentiality of Alcohol and Drug Abuse Patient Records regulations: The Federal rules restrict any use of the information to criminally investigate or prosecute any alcohol or drug abuse patient.[facility] HospitalIn the event this information is protected by the Federal Confidentiality of Alcohol and Drug Abuse Patient Records regulations: The Federal rules restrict any use of the information to criminally investigate or prosecute any alcohol or drug abuse patient.[facility] HospitalIn the event this information is protected by the Federal Confidentiality of Alcohol and Drug Abuse Patient Records regulations: The Federal rules restrict any use of the information to criminally investigate or prosecute any alcohol or drug abuse patient.[facility] HospitalIn the event this information is protected by the Federal Confidentiality of Alcohol and Drug Abuse Patient Records regulations: The Federal rules restrict any use of the information to criminally investigate or prosecute any alcohol or drug abuse patient.[facility] HospitalIn the event this information is protected by the Federal Confidentiality of Alcohol and Drug Abuse Patient Records regulations: The Federal rules restrict any use of the information to criminally investigate or prosecute any alcohol or drug abuse patient.[facility] HospitalIn the event this information is protected by the Federal Confidentiality of Alcohol and Drug Abuse Patient Records regulations: The Federal rules restrict any use of the information to criminally investigate or prosecute any alcohol or drug abuse patient.[facility] HospitalIn the event this information is protected by the Federal Confidentiality of Alcohol and Drug Abuse Patient Records regulations: The Federal rules restrict any use of the information to criminally investigate or prosecute any alcohol or drug abuse patient.[facility] HospitalIn the event this information is protected by the Federal Confidentiality of Alcohol and Drug Abuse Patient Records regulations: The Federal rules restrict any use of the information to criminally investigate or prosecute any alcohol or drug abuse patient.[facility] HospitalIn the event this information is protected by the Federal Confidentiality of Alcohol and Drug Abuse Patient Records regulations: The Federal rules restrict any use of the information to criminally investigate or prosecute any alcohol or drug abuse patient.[facility] HospitalIn the event this information is protected by the Federal Confidentiality of Alcohol and Drug Abuse Patient Records regulations: The Federal rules restrict any use of the information to criminally investigate or prosecute any alcohol or drug abuse patient.[facility] HospitalIn the event this information is protected by the Federal Confidentiality of Alcohol and Drug Abuse Patient Records regulations: The Federal rules restrict any use of the information to criminally investigate or prosecute any alcohol or drug abuse patient.[facility] HospitalIn the event this information is protected by the Federal Confidentiality of Alcohol and Drug Abuse Patient Records regulations: The Federal rules restrict any use of the information to criminally investigate or prosecute any alcohol or drug abuse patient.[facility] HospitalIn the event this information is protected by the Federal Confidentiality of Alcohol and Drug Abuse Patient Records regulations: The Federal rules restrict any use of the information to criminally investigate or prosecute any alcohol or drug abuse patient.[facility] HospitalIn the event this information is protected by the Federal Confidentiality of Alcohol and Drug Abuse Patient Records regulations: The Federal rules restrict any use of the information to criminally investigate or prosecute any alcohol or drug abuse patient.[facility] HospitalIn the event this information is protected by the Federal Confidentiality of Alcohol and Drug Abuse Patient Records regulations: The Federal rules restrict any use of the information to criminally investigate or prosecute any alcohol or drug abuse patient.[facility] HospitalIn the event this information is protected by the Federal Confidentiality of Alcohol and Drug Abuse Patient Records regulations: The Federal rules restrict any use of the information to criminally investigate or prosecute any alcohol or drug abuse patient.[facility] HospitalIn the event this information is protected by the Federal Confidentiality of Alcohol and Drug Abuse Patient Records regulations: The Federal rules restrict any use of the information to criminally investigate or prosecute any alcohol or drug abuse patient.[facility] Care Teams (unrecognized sec tion and content) Spice Grinder Relationship Specialty Start Date End Date Tino Blake PCP - General Family Practice 12/08/16 Spice Grinder Relationship Specialty Start Date End Date Tino Blake PCP - General Family Practice 12/08/16 Spice Grinder Relationship Specialty Start Date End Date Tino Blake PCP - General Family Practice 12/08/16 Spice Grinder Relationship Specialty Start Date End Date Tino Blake PCP - General Family Practice 12/08/16 Spice Grinder Relationship Specialty Start Date End Date [place], Tino Óscar PCP - General Family Practice 12/08/16 Spice Grinder Relationship Specialty Start Date End Date Tino Blake PCP - General Family Practice 12/08/16 Spice Grinder Relationship Specialty Start Date End Date Tino Blake PCP - General Family Practice 12/08/16 Spice Grinder Relationship Specialty Start Date End Date Tino Blake PCP - General Family Practice 12/08/16 Spice Grinder Relationship Specialty Start Date End Date Tino Blake PCP - General Family Practice 12/08/16 Spice Grinder Relationship Specialty Start Date End Date Tino Blake PCP - General Family Practice 12/08/16 Spice Grinder Relationship Specialty Start Date End Date Tino Blake PCP - General Family Medicine 12/08/16 Spice Grinder Relationship Specialty Start Date End Date Tino Blake PCP - General Family Medicine 12/08/16 Spice Grinder Relationship Specialty Start Date End Date Tino Blake PCP - General Family Medicine 12/08/16 Spice Grinder Relationship Specialty Start Date End Date Tino Blake PCP - General Family Medicine 12/08/16 Spice Grinder Relationship Specialty Start Date End Date Tino Blake PCP - General Family Medicine 12/08/16 Spice Grinder Relationship Specialty Start Date End Date Tino Blake PCP - General Family Medicine 12/08/16 Spice Grinder Relationship Specialty Start Date End Date Tino Blake PCP - General Family Medicine 12/08/16 Spice Grinder Relationship Specialty Start Date End Date [place] me[place]ia PCP - General Family Medicine 12/08/16 Spice Grinder Relationship Specialty Start Date End Date Tino Blake PCP - General Family Medicine 12/08/16 Spice Grinder Relationship Specialty Start Date End Date Tino Blake PCP - General Family Medicine 12/08/16 Spice Grinder Relationship Specialty Start Date End Date Tino Blake PCP - General Family Medicine 12/08/16 Spice Grinder Relationship Specialty Start Date End Date Tino Blake PCP - General Family Medicine 12/08/16 Spice Grinder Relationship Specialty Start Date End Date Tino Blake PCP - General Family Medicine 12/08/16 Spice Grinder Relationship Specialty Start Date End Date Tino Blake PCP - General Family Medicine 12/08/16 Spice Grinder Relationship Specialty Start Date End Date Tino Blake PCP - General Family Medicine 12/08/16 Spice Grinder Relationship Specialty Start Date End Date [place] mejia PCP - General Family Medicine 12/08/16 Spice Grinder Relationship Specialty Start Date End Date [place] mejia PCP - General Family Medicine 12/08/16 Spice Grinder Relationship Specialty Start Date End Date Tino Blake PCP - General Family Medicine 12/08/16 Spice Grinder Relationship Specialty Start Date End Date Tino Blake PCP - General Family Medicine 12/08/16 Spice Grinder Relationship Specialty Start Date End Date Tino Blake PCP - General Family Medicine 12/08/16 Spice Grinder Relationship Specialty Start Date End Date Tino Blake PCP - General Family Medicine 12/08/16 Spice Grinder Relationship Specialty Start Date End Date Tino Blake PCP - General Family Medicine 12/08/16 Spice Grinder Relationship Specialty Start Date End Date Tino Blake PCP - General Family Medicine 12/08/16 Spice Grinder Relationship Specialty Start Date End Date Tino Blake PCP - General Family Medicine 12/08/16 Spice Grinder Relationship Specialty Start Date End Date Tino Blake PCP - General Family Medicine 12/08/16 Spice Grinder Relationship Specialty Start Date End Date Tino Blake PCP - General Family Medicine 12/08/16 Spice Grinder Relationship Specialty Start Date End Date Tino Blake PCP - General Family Medicine 12/08/16 Spice Grinder Relationship Specialty Start Date End Date Tino Blake PCP - General Family Medicine 12/08/16 Spice Grinder Relationship Specialty Start Date End Date Tino Blake MD PCP - General Family Medicine 12/08/16 Spice Grinder Relationship Specialty Start Date End Date Tino Blake MD PCP - General Family Medicine 12/08/16 Spice Grinder Relationship Specialty Start Date End Date Tino Blake MD PCP - General Family Medicine 12/08/16 Spice Grinder Relationship Specialty Start Date End Date Tino Blake MD PCP - General Family Medicine 12/08/16 Spice Grinder Relationship Specialty Start Date End Date Tino Blake MD PCP - General Family Medicine 12/08/16 Spice Grinder Relationship Specialty Start Date End Date Tino Blake MD PCP - General Family Medicine 12/08/16 Spice Grinder Relationship Specialty Start Date End Date Tino Blake MD PCP - General Family Medicine 12/08/16 Spice Grinder Relationship Specialty Start Date End Date Tino Blaek MD PCP - General Family Medicine 12/08/16 Spice Grinder Relationship Specialty Start Date End Date Tino Blake MD PCP - General Family Medicine 12/08/16 Spice Grinder Relationship Specialty Start Date End Date Tino Blake MD PCP - General Family Medicine 12/08/16 Spice Grinder Relationship Specialty Start Date End Date Tino Blake MD PCP - General Family Medicine 12/08/16 Spice Grinder Relationship Specialty Start Date End Date Tino Blake MD PCP - General Family Medicine 12/08/16 Spice Grinder Relationship Specialty Start Date End Date Tino Blake MD PCP - General Family Medicine 12/08/16 Spice Grinder Relationship Specialty Start Date End Date Tino Blake MD PCP - General Family Medicine 12/08/16 Spice Grinder Relationship Specialty Start Date End Date Tino Blake MD PCP - General Family Medicine 12/08/16 Spice Grinder Relationship Specialty Start Date End Date Tino Blake MD PCP - General Family Medicine 12/08/16 Spice Grinder Relationship Specialty Start Date End Date Tino Blake MD PCP - General Family Medicine 12/08/16 Spice Grinder Relationship Specialty Start Date End Date Tino Blake MD PCP - General Family Medicine 12/08/16 Spice Grinder Relationship Specialty Start Date End Date Tino Blake MD PCP - General Family Medicine 12/08/16 Spice Grinder Relationship Specialty Start Date End Date Tino Blake MD PCP - General Family Medicine 12/08/16 Spice Grinder Relationship Specialty Start Date End Date Tino Blake MD PCP - General Family Medicine 12/08/16 Spice Grinder Relationship Specialty Start Date End Date Madhu Voss MD [address] [place] [address] PCP - General Family Medicine 04/28/23 Niya Santiago NP [address] [place] [id number] Nurse Practitioner Family Medicine 04/28/23 Spice Grinder Relationship Specialty Start Date End Date Madhu Voss MD [address] [place] [address] PCP - General Family Medicine 04/28/23 Niya Santiago NP [address] [place] [address] Nurse Practitioner Family Medicine 04/28/23 Spice Grinder Relationship Specialty Start Date End Date Madhu Voss MD [address] [place] [address] PCP - General Family Medicine 04/28/23 Niya Santiago NP [address] [place] [address] Nurse Practitioner Family Medicine 04/28/23 Spice Grinder Relationship Specialty Start Date End Date Madhu Voss MD [address] [place] [address] PCP - General Family Medicine 04/28/23 Niya Santiago NP [address] [place] [address] Nurse Practitioner Family Medicine 04/28/23 Spice Grinder Relationship Specialty Start Date End Date Madhu Voss MD [address] [place] [address] PCP - General Family Medicine 04/28/23 Niya Santiago NP [address] [place] [address] Nurse Practitioner Family Medicine 04/28/23 Spice Grinder Relationship Specialty Start Date End Date Madhu Voss MD [address] [place] [address] PCP - General Family Medicine 04/28/23 Niya Santiago NP [address] [place] [address] Nurse Practitioner Family Medicine 04/28/23 Spice Grinder Relationship Specialty Start Date End Date Madhu Voss MD [address] [place] [address] PCP - General Family Medicine 04/28/23 Niya Santiago NP [address] [place] [address] Nurse Practitioner Family Medicine 04/28/23 Spice Grinder Relationship Specialty Start Date End Date Madhu Voss MD [address] [place] [address] PCP - General Family Medicine 04/28/23 Niya Santiago NP [address] [place] [address] Nurse Practitioner Family Medicine 04/28/23 Spice Grinder Relationship Specialty Start Date End Date Niya Santiago CNP [address] [place] [address] PCP - General Family Medicine 03/31/24 Spice Grinder Relationship Specialty Start Date End Date Niya Santiago CNP [address] [place] [address] PCP - General Family Medicine 03/31/24 Spice Grinder Relationship Specialty Start Date End Date Niya Santiago CNP [address] [place] [address] PCP - General Family Medicine 03/31/24 Spice Grinder Relationship Specialty Start Date End Date Madhu Voss MD [address] [place] [address] PCP - General Family Medicine 04/28/23 Niya Santiago NP [address] [place] [address] Nurse Practitioner Family Medicine 04/28/23 Spice Grinder Relationship Specialty Start Date End Date Madhu Voss MD [address] [place] [address] PCP - General Family Medicine 04/28/23 Niya Santiago NP [address] [place] [address] Nurse Practitioner Family Medicine 04/28/23 Spice Grinder Relationship Specialty Start Date End Date Madhu Voss MD [address] [place] [address] PCP - General Family Medicine 04/28/23 Niya Santiago NP [address] [place] [address] Nurse Practitioner Family Medicine 04/28/23 Spice Grinder Relationship Specialty Start Date End Date Niya Santiago CNP [address] [place] [address] PCP - General Family Medicine 03/31/24 Spice Grinder Relationship Specialty Start Date End Date Madhu Voss MD [address] [place] [address] PCP - General Family Medicine 04/28/23 Niya Santiago NP [address] [place] [address] Nurse Practitioner Family Medicine 04/28/23 Spice Grinder Relationship Specialty Start Date End Date Madhu Voss MD [address] [place] [address] PCP - General Family Medicine 04/28/23 Niya Santiago NP [address] [place] [address] Nurse Practitioner Family Medicine 04/28/23 Spice Grinder Relationship Specialty Start Date End Date Madhu Voss MD [address] [place] [address] PCP - General Family Medicine 04/28/23 Niya Santiago NP [address] [place] [address] Nurse Practitioner Family Medicine 04/28/23 INFORMATION SOURCE (unrecogn ized section and content) DATE CREATED AUTHOR 07/13/2021 [facility] DATE CREATED AUTHOR AUTHOR'S ORGANIZ ATION 07/05/2022 [facility] DATE CREATED AUTHOR AUTHOR'S ORGANIZ ATION 05/13/2024 [facility] DATE CREATED AUTHOR AUTHOR'S ORGANIZ ATION 09/03/2024 [facility] Inactive Administered Medications - up to 3 [...] BE BASED ON THE PRIMARY CLINICAL RECORDS. [employer] provides no warranty or guarantee of the accuracy or completeness of information in this document.
--- NOTE | 2024-09-24 23:23 | ED_ITS ---
HPI HPI - General Adult General Chief complaint: Extremity Problem, Nontraumatic Stated complaint: UPPER EXTREMITY PAIN, LEFT Time Seen by Provider: 09/24/24 23:08 Source: patient Mode of arrival: walk-in Limitations: no limitations History of Present Illness HPI narrative: 39-year-old female presents for pain in her left hand and her right ankle. She has a history of rheumatoid arthritis and is having a typical flare. She has had for the last day or 2 and the pain is moderate and continuous. She states that prednisone usually helps as well as a shot of a steroid. No fever or inju ry. Related Data Home Medications ?Medication ?Instructions ?Recorded ?Confirmed buprenorphine 8 mg-naloxone 2 mg 1 film sublingual Q24 H 04/13/23 05/24/24 sublingual film lisdexamfetamine 50 mg capsule 50 mg PO Q24H 04/13/23 08/24/24 (Vyvanse) Previous Rx's ?Medication ?Instructions ?Recorded ibuprofen 800 mg tablet 800 mg PO Q8H PRN pain #20 t abs 08/24/24 penicillin V potassium 250 mg 250 mg PO QID 10 days #4 0 tabs 08/24/24 tablet prednisone 10 mg tablet See Rx Instructions .Route 0 09/24/24 .COMPLEX #30 tabs Allergies Allergy/AdvReac Type Severity Reaction Status Date / Time No Known Drug Allergies Allergy Verified 09/24/24 23:12 Opioid HPI Opioid Management Most Recent Opioid Data: Last Pain Scale 5 Today, 23:15 Review of Systems ROS Narrative A ten point review of systems is negative except as noted above. PFSH PFSH Social History Smoking status: Never smoker Little interest or pleasure in doing things: not at all Feeling down, depressed, or hopeless: not at all Exam Narrative Exam Narrative: Nurses note and vital signs reviewed and patient is not hypoxic. General: The patient appears well and in no apparent distress. Patient is resting comfortably on cart. Skin: Warm, dry, no pallor noted. There is no rash noted. Head: Normocephalic, atraumatic Eye: Normal conjunctiva, no drainage Ears, Nose, Mouth, and Throat: oral mucosa is moist. Nares patent. Cardiovascular: Regular Rate and Rhythm Respiratory: Patient is in no distress, no accessory muscle use, lungs are clear to auscultation, no wheezing, rales or rhonchi Back: non-tender GI: Soft and nontender Musculoskeletal: She is reluctant to flex the fingers of her left hand. No open areas. Neurological: A&O, normal speech Psychiatric: Cooperative Constitutional Vital Signs, click to edit/add: Last Vital Signs Temp 98.2 F 09/24/24 23:12 Pulse 101 H 09/24/24 23:12 Resp 17 09/24/24 23:12 BP 144/91 H 09/24/24 23:12 Pulse Ox 98 09/24/24 23:12 O2 Del Method Room Air 09/24/24 23:12 Course Vital Signs Vital signs: Vital Signs Temperature 98.2 F 09/24/24 23:12 Pulse Rate 101 H 09/24/24 23:12 Respiratory Rate 17 09/24/24 23:12 Blood Pressure 144/91 H 09/24/24 23:12 Pulse Oximetry 98 09/24/24 23:12 Oxygen Delivery Method Room Air 09/24/24 23:12 Temperature 98.2 F 09/24/24 23:12 Pulse Rate 101 H 09/24/24 23:12 Respiratory Rate 17 09/24/24 23:12 Blood Pressure 144/91 H 09/24/24 23:12 Pulse Oximetry 98 09/24/24 23:12 Oxygen Delivery Method Room Air 09/24/24 23:12 Medical Decision Making MDM Narrative Medical decision making narrative: My clinical impression is that she is having a flareup of her rheumatoid arthritis. She was given IM Solu-Medrol and prescribed prednisone. Treatment diagnosis and follow-up were discussed with the patient. Differential Diagnosis Differential Diagnosis: Rheumatoid arthritis, arthritis Medical Records Medical records reviewed: Yes I reviewed the patient's medical records Discharge Plan Discharge Chief Complaint: Extremity Problem, Nontraumatic Clinical Impression: Rheumatoid arthritis flare Patient Disposition: Home, Self-Care Time of Disposition Decision: 23:21 Condition: Good Mode of Transportation: Private Vehicle Prescriptions / Home Meds: New prednisone 10 mg tablet See Rx Instructions .ROUTE .COMPLEX Qty: 30 0RF Rx Instructions: 4 by mouth daily for three days then 3 by mouth daily for three days then 2 by mouth daily for three days then 1 by mouth daily for three days No Action lisdexamfetamine [Vyvanse] 50 mg capsule 50 mg PO Q24H buprenorphine-naloxone 8-2 mg film 1 film sublingual Q24H penicillin V potassium 250 mg tablet 250 mg PO QID 10 Days Qty: 40 0RF ibuprofen 800 mg tablet 800 mg PO Q8H PRN (Reason: pain) Qty: 20 0RF Print Language: Lao Instructions: Rheumatoid Arthritis (ED) Referrals: Niya Santiago [employer]PL[employer] SUPERVISOR [Primary Care Provider, Family Practice] - 1 week
[2024-09-24] MEDS: METHYLPREDNISOLONE SOD SUCC PF 125 MG/2 ML VIAL IM (23:31)
--- NOTE | 2024-09-24 23:35 | PC.NURSE ---
i gave this patient verbal and written discharge orders along with 1 e--script and she voices yes to understanding these discharge orders and e -script. at time of discharge this patient voices no concerns, needs and shows no signs of distress
== END 2024-09-24 23:35 | disposition home or self-care (01) ==
PROVIDERS: Emergency Provider Emergency Medicine; PCP Nurse Practitioner
DX: M06.9 Rheumatoid arthritis, unspecified (principal)
CPT/HCPCS: 96372; 99284; J2919

== ENCOUNTER 2024-12-28 12:40 | Emergency (ER) | payer MEDICAID, SELFPAY ==
--- OUTSIDE RECORDS SUMMARY | 2016-02-21 19:00 | XMS_ITS | Continuity of Care Document ---
Author Organization [facility] Address [address], [address] Phone Care Team Providers Care Motorcyles Final Inspector Name Role Phone Unavailable Unavailable Unavailable Advance Directives Directive Yes / No Effective Date File Name No Information Encounters Encounter Description Practice Location Reason(s) For Visit Diagnoses Date Provider Providers Copied on Encounter [facility], [address] [place], [place], [id number], [place] tel:[phone] ZConversion No Information No Information Family History Family Member Type Diagnosis Age At Onset No Information Payers Payer name Insurance type Covered alliance party ID Authoriza tion(s) No Information Social History Type Description Quantity Date Captured Comments Sex Female Smoking Status No Information Vital Signs Date / Time: Height Weight BMI Pulse Rate Blood Pressure Temperature Respiratory Rate Body Surface Area Head Circumference Head Circ. Percentile Wt./Rodrigo. Percentile BMI percentile Pulse Ox Inhaled Ox 1:23 PM 62.00 in 138.00 lbs 25.4 0 kg/m eter (2) 72 /min 97.30 F 16 /min 1:55 PM 62.00 in 136.00 lbs 25.0 0 kg/m eter (2) 93 /min 20 /min Chief Complaint And Reason For Visit No Information Reason For Referral Reason For Referral No Information History Of Present Illness Encounter Date Complaint History Of Prese nt Illness No Information Functional Status Date Functional Assessmen t Pain Score 7/10 Pain Score 8/10 Instructions Date Instruction Additional Infor mation No Information Assessments Type Assessment Date No Information Patient Care Teams Name Effective Dates (start - stop) Status Members No Information
--- OUTSIDE RECORDS SUMMARY | 2024-10-27 05:36 | XMS_ITS | Continuity of Care Document ---
Author Organization [facility] Address [address] [place] [id number] Phone Care Team Providers Care Office Mover Name Role Phone Donis Ortez DDS Unavailable Unavailable Allergies, Adverse Reactions, Alerts Substance [...] Comments No Known Problems Procedures Procedure Date Oral Hygiene Instruction Root Canal-molar Bitewings-two Films Uqglyvzic-aimrgtmqdq-moxe Additional Sep Lqmducmyy-ssrartmkor-emnd Additional Sep Mgzvqnubm-oepvoevfft-lfjb Additional Sep Lawkrtgar-uxbvjahosy-quoj Additional Sep Assessment Of A Patient Re-Evaluation - Limited, Problem Focused Oral Hygiene Instruction Intraoral-periapical 1st Film Bitewig-single Film Limited Oral Eval Oral Hygiene Instruction Nutrit Couns For [employer] [facility] [place] Dis Dec Oral Hygiene Instruction Intraoral-periapical 1st Film 3 Bitewig-single Film Oral Hygiene Instruction Limited Oral Eval Resin Composite 3s; Posterior 3 Oral Hygiene Instruction Oral Hygiene Instruction Resin Composite 2s; Posterior 3 Extract; Erupted Th/exposted Rt 023 Resin Composite 2s; Posterior Oral Hygiene Instruction Resin Composite 2s; Posterior [...] Diagnoses Date Provider Providers Copied on Encounter [facility], [address] [place] [address], [id number] , tel:[phone] Dental Clinic rct (chief complaint) No Information 5 Pérez DDS Donis. [address] [place] [address], [id number], [place]. tel:[phone] [facility], [address] [place] [address], [id number] , tel:[phone] Dental Clinic Encounter for screening for dental disorders 5 Ortez DDS Donis. [address] [place] [address], [id number], [place]. tel:[phone] [facility], [address], [place], [id number] , [place] tel:[phone] Dental Clinic dl (chief complaint) Body mass index [BMI] 25.0-25.9, adultEncounter for screening for dental disordersEncounter for dental examination and cleaning with abnormal findings 5 Breanne Rogers. [address], [place], [id number], [place]. tel:[phone] [facility], [address] [place], [place], [id number] , [place] tel: [phone] Dental Clinic Dental ER (chief complaint) [facility] for [facility] disorders [facility] [address], [id number], [place]. tel:[phone] [facility], [address], [place], [id number] , [place] tel:[phone] Dental Clinic [place] (chief complaint) Encounter for screening for dental disorders 3 [facility] SURJIT Singhal. [address], [place], [id number], [place]. tel:[phone] [facility], [address], [place], [id number] , [place] tel:[phone] Dental Clinic ext (chief complaint) No Information 3 Caesar Lewis. [address], [place], [id number], [place]. tel:[phone] [facility], [address], [place], [id number] , [place] tel:[phone] Dental Clinic DL (chief complaint) Encounter for screening for dental disorders 3 Breanne Rogers. [address], [place], [id number], [place]. tel:[phone] [facility], [address], [place], [id number] , [place] tel:[phone] Dental Clinic filling (chief complaint) Encounter for screening for dental disorders 3 Breanne Rogers. [address], [place], [id number], [place]. tel:[phone] [facility], [address] [place], [place], [id number] , [place] tel:[phone] Dental Clinic Fill (chief complaint) Encounter for screening for dental disorders 3 Breanne Rogers. [address], [place], [id number], [place]. tel:[phone] [facility], [address], [place], [id number] , [place] tel:[phone] Dental Clinic ext (chief complaint) No Information 3 Caesar SANTILLAN Joshua. [address], [place], [id number], [place]. tel:[phone] [facility], [address], [place], [id number] , [place] tel: [phone] Dental Clinic Fill (chief complaint) Encounter for screening for dental disorders 3 Breanne Rogers. [address], [place], [id number], [place]. tel:[phone] [facility], [address], [place], [id number] , [place] tel:[phone] Dental Clinic luis (chief complaint) Encounter for screening for dental disorders 3 Breanne Rogers. [address], [place], [id number], [place]. tel:[phone] [facility], [address], [place], [id number] , [place] tel:[phone] Dental Clinic Encounter for screening for dental disorders 3 Breanne Rogers. [address], [place], [id number], [place]. tel:[phone] [facility], [address], [place], [id number] , [place] tel: [phone] Dental Clinic DN (chief complaint) Encounter for screening for dental disorders 3 Breanne Rogers. [address], [place], [id number], [place]. tel:[phone] OFFICE/OUTPA TIENT VISIT, EST [facility], [address], [place], [id number] , [place] tel: [phone] [facility] abnormal pap smear (chief complaint) AMY 2OCP follow up Rx- STD screen- STD liefstyle code 9 [facility] [place]. [address], [place], [id number], [place]. 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 [address], [place], [id number], [place]. tel:[phone] [facility], [address], [place], [id number] , [place] tel: [phone] [facility] Leep (chief complaint) Encounter for testCIN 2 8 Visci DO Red. [address], [place], [id number], [place]. tel:[phone] [facility], [address], [place], [id number] , [place] tel: [phone] [facility] Nexplanon Removal (chief complaint) Encounter for surveillance of other contraceptives Apr- 8 Visci DO Red. [address], [place], [id number], [place]. tel:[phone] [facility], [address], [place], [id number] , [place] tel: [phone] [facility] Colpo (chief complaint) HGSIL on cytologic smear of cervix 8 Yary Arguelles. [address], [place], [id number], [place]. tel:[phone] [facility], [address] [place] [address], [id number] , [place] tel: [phone] [facility] RA flare up (chief complaint) Rheumatoid arthritis, unspecified 7 Carlyle Martinez. [address] [place] [address], [id number], [place]. 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 [address] [place] [address], [id number], [place]. tel:[phone] [facility], [address] [place] [address], [id number] , [place] tel: [phone] [facility] Hearing lossRheumatoid arthritis, unspecified 7 Carlyle Martinez. [address] [place] [address], [id number], [place]. [phone] Family History Family Member Type Diagnosis Age At Onset Mother Problem (finding) rheumatoid arthritis Father Problem (finding) Alive and well Mother Problem (finding) Immunizations Vaccine Date Status Comments Influenza virus vaccine, injectable, quadrivalent, split virus, preservative free, 3 years or older Fluarix, Flulaval or Fluzone Quad refused Source: New Immun ization Record Payers Payer name Insurance type Covered alliance party ID Kee newton(s) D [place] Medicaid [facility] [employer] [id number] D Medicaid Wrap - [facility] [id number] Medicaid Primary - [facility] [id number] Social History Type Description Quantity Date Captured Comments Alcohol Use Details No Caffeine Use Details soda and coffee > 32oz per day Tobacco Use Status Moderate cigarette s moker (10-19 cigs/day) Smoking Status Heavy tobacco smoker Sex Female Sexual Orientation Straight or heterosexual Gender Identity Female Chief Complaint And Reason For Visit From encounter dated '10/27/2024 10:36'. rct (chief complaint). Description: rct Reason For Referral Reason For Referral No Information Plan Of Treatment Date Type Action Status Goal Influenza vaccine. Due on due Goal HPV. Due on due Goal PRAPARE ASSESSMENT. Due on due Goal Tdap. Due on due Goal Tdap Vaccine. Due on 2024 due Goal Lipid panel. Due on due Goal Depression screening. Due on due Goal Hepatitis C screening. Due o n due Goal Unhealthy drug use screening . Due on due Goal RLP. Due on due Goal Hepatitis C screening. Due o n due Goal Tdap. Due on due Goal HPV. Due on due Goal Lipid panel. Due on due Goal RLP. Due on due Goal Unhealthy drug use screening . Due on due Goal Tdap Vaccine. Due on 2024 due Goal Influenza vaccine. Due on Au due Goal Depression screening. Due on due Goal PRAPARE ASSESSMENT. Due on A due Goal Tdap. Due on due Goal RLP. Due on due Goal Unhealthy drug use screening . Due on due Goal Tdap Vaccine. Due on 2023 due Goal HPV. Due on due Goal Influenza vaccine. Due on due Goal Hep A. Due on du e Goal PRAPARE ASSESSMENT. Due on J due Goal Hepatitis C screening. Due o n due Goal Depression screening. Due on due Goal Hep A. Due on du e Goal HPV. Due on due Goal Tdap Vaccine. Due on 2022 due Goal PRAPARE ASSESSMENT. Due on N due Goal Hepatitis C screening. Due o n due Goal RLP. Due on due Goal Tdap. Due on due Goal Unhealthy drug use screening . Due on due Goal Influenza vaccine. Due on due Goal Depression screening. Due on due Goal Hepatitis C screening. Due o n due Goal Influenza vaccine. Due on Oc t due Goal HPV. Due on due Goal Tdap Vaccine. Due on 2022 due Goal Unhealthy drug use screening . Due on due Goal PRAPARE ASSESSMENT. Due on O due Goal Depression screening. Due on due Goal RLP. Due on due Goal Tdap. Due on due Goal Hep A. Due on du e Goal PRAPARE ASSESSMENT. Due on O due [...] Goal Depression screening. Due on due Goal Influenza vaccine. Due on Ju due Goal RLP. Due on due Goal Hep A. Due on du e Goal PRAPARE ASSESSMENT. Due on due Goal Depression screening. Due on due Goal Tdap Vaccine. Due on 2022 due Goal Tdap. Due on due Goal PRAPARE ASSESSMENT. Due on due Goal Tdap Vaccine. Due on 2022 due Goal RLP. Due on due Goal Tdap. Due on due Goal Influenza vaccine. Due on due Goal Hep A. Due on du e Goal Depression screening. Due on due Goal Tdap Vaccine. Due on 2022 due Goal Tdap. Due on due Goal Influenza vaccine. Due on due Goal Depression screening. Due on due Goal RLP. Due on due Goal PRAPARE ASSESSMENT. Due on A due Goal Hep A. Due on du e Goal Tdap. Due on due Goal RLP. Due on due Goal PRAPARE ASSESSMENT. Due on A due Goal Influenza vaccine. Due on due Goal Tdap Vaccine. Due on 2022 due Goal Depression screening. Due on due Goal Hep A. Due on du e Goal PRAPARE ASSESSMENT. Due on due Goal Depression screening. Due on due Goal RLP. Due on due Goal Tdap Vaccine. Due on 2022 due Goal Influenza vaccine. Due on due Goal Tdap. Due on due Goal PRAPARE ASSESSMENT. Due on due Goal RLP. Due on due Goal Tdap Vaccine. Due on 2022 due Goal Influenza vaccine. Due on due Goal Tdap. Due on due Goal Depression screening. Due on due Goal Tobacco cessation counseling completed Goal Tobacco cessation counseling completed Goal Tobacco cessation counseling completed Goal Tobacco cessation counseling completed Goal Tobacco cessation counseling completed Goal Tobacco cessation counseling completed Referral Ordered: Weight management: Referral to physician timeframe: 6 Months. (related to Body mass index [BMI] 25.0-25.9, adult) [id number] RecommendationOral nutritional supportcompleted History Of Present Illness Encounter Date Complaint History Of Prese nt Illness rct rct dl DL Dental ER Dental ER SINAN MENON ext DL dental [facility] filling Fill ext ext Fill luis luis DN DN abnormal pap smear Additional in formation: Patient is here for repeat pap with ECC following a LEEP procedure. Patient also needs a NAVIN for TRICH. States she would like to restart OCPs as her boyfriend gets out of care home soon. Has problems with acne and does not see a business systems analyst and c/o hearing loss, but has appt [...] infertility issues. Her partner is currently in care home, but once released they may desire a [...] may want one more child. PT (-) -[facility] Nexplanon Removal Colpo Patient here for colpo. [...] Additional information: Here for annual exam. 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 Has Nexplanon, but it is by several years. would like appt to have it removed and then would like to start OCPs. Does desire a in the future, but is not currently in a relationship.. Functional Status Date Functional Assessmen t No Information Instructions Date Instruction Additional Infor kymberly Giving encouragement to exercise Related to Body mass index [BMI] 25.0-25.9, adult Discussed BC options and patient would like [...] at this time. Partner is currently in care home. 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 Patient to call in 1 week for results Related to - STD screen Assessments Type Assessment Date No Information Patient Care Teams Name Effective Dates (start - stop) Status Members No Information
[2024-12-28 12:43] VITALS: BP 153/106; PULSE 100; TEMP 37.1; O2SAT 100; BMI 25.7
--- NOTE | 2024-12-28 12:51 | PC.NURSE ---
comes in room with assessment and begins to massage left hand and wrist constantly. pt holding this extremity in air. denies injury and h/o Rheumatoid arthritis and carpal tunnel
--- NOTE | 2024-12-28 13:01 | ED_ITS ---
HPI - Extremity Problem General Chief complaint: Extremity Problem, Nontraumatic Stated complaint: L HAND NUMBNESS Time Seen by Provider: 12/28/24 12:47 Source: patient Mode of arrival: walk-in History of Present Illness HPI Narrative: The patient presented to us with a left wrist pain that is mostly a chronic problem according to the patient who presented to us multiple times with the same complaint, she have a history of carpal tunnel, the patient is emotional about the pain denies any other concerns or complaints Related Data Home Medications ?Medication ?Instructions ?Recorded ?Confirmed buprenorphine 8 mg-naloxone 2 mg 1 film sublingual Q24 H 04/13/23 12/28/24 sublingual film lisdexamfetamine 50 mg capsule 50 mg PO Q24H 04/13/23 08/24/24 (Vyvanse) Previous Rx's ?Medication ?Instructions ?Recorded meloxicam 15 mg tablet 15 mg PO DAILY PRN pain #10 tabs 12/28/24 prednisone 20 mg tablet 40 mg (2 x 20 mg) PO DAILY 5 days 12/28/24 #10 tabs Allergies Allergy/AdvReac Type Severity Reaction Status Date / Time No Known Drug Allergies Allergy Verified 09/24/24 23:12 Review of Systems ROS Status of ROS 10 or more systems reviewed and unremark able except as noted in history and below [facility] Medical History (Updated 12/28/24 @ 13:03 by Jocelyn Godoy MD) Carpal tunnel syndrome ?G56.00 - Carpal tunnel syndrome, unspecified upper limb (ICD-10) Social History Smoking status: Never smoker Little interest or pleasure in doing things: not at all Feeling down, depressed, or hopeless: not at all Exam Narrative Exam Narrative: Nurses notes and vital signs reviewed and patient is not hypoxic. General: Well-appearing and in no apparent distress. Left upper extremity exam: The patient had tenderness upon palpation of the left wrist but there is no redness hotness. Full range of movement preserved and the patient able to move her fingers, equal radial pulse bilaterally, normal vascular capillary refill Neurological: A&O x4. No cranial nerve dysfunction observed. No truncal ataxia. Moves all extremities. Sensation intact. Psychiatric: Cooperative and interactive. Normal mood and affect. Constitutional Vital Signs, click to edit/add: Last Vital Signs Temp 98.8 F 12/28/24 12:43 Pulse 100 H 12/28/24 12:43 Resp 24 H 12/28/24 12:43 BP 153/106 H 12/28/24 12:43 Pulse Ox 100 12/28/24 12:43 Course Vital Signs Vital signs: Vital Signs Temperature 98.8 F 12/28/24 12:43 Pulse Rate 100 H 12/28/24 12:43 Respiratory Rate 24 H 12/28/24 12:43 Blood Pressure 153/106 H 12/28/24 12:43 Pulse Oximetry 100 12/28/24 12:43 Temperature 98.8 F 12/28/24 12:43 Pulse Rate 100 H 12/28/24 12:43 Respiratory Rate 24 H 12/28/24 12:43 Blood Pressure 153/106 H 12/28/24 12:43 Pulse Oximetry 100 12/28/24 12:43 MDM - Extremity (Nontraumatic) MDM Narrative Medical decision making narrative: The patient was provided in the ER with Toradol as well as the Solu-Medrol after which she was discharged home to continue prednisone at home and addition to Mobic for pain Patient to take her medication with food The patient to follow-up with the primary care within 2 to 3 days and to come back to the ER in case of any worsening of the current symptoms or any new symptoms or concerns Discharge Plan Discharge Chief Complaint: Extremity Problem, Nontraumatic Clinical Impression: Arthritis of wrist Patient Disposition: Home, Self-Care Time of Disposition Decision: 13:03 Condition: Good Prescriptions / Home Meds: New prednisone 20 mg tablet 40 mg PO DAILY 5 Days Qty: 10 0RF meloxicam 15 mg tablet 15 mg PO DAILY PRN (Reason: pain) Qty: 10 0RF No Action lisdexamfetamine [Vyvanse] 50 mg capsule 50 mg PO Q24H buprenorphine-naloxone 8-2 mg film 1 film sublingual Q24H Print Language: [place] Instructions: Arthritis (ED) Additional Instructions: Please take all the medication with food Referrals: Niya Santiago NP [Primary Care Provider, Family Practice] - 1 week Discharge Date/Time: 12/28/24 13:18
[2024-12-28] MEDS: KETOROLAC TROMETHAMINE 30 MG/ML VIAL IM (13:07)
[2024-12-28] MEDS: METHYLPREDNISOLONE SOD SUCC PF 125 MG/2 ML VIAL IM (13:08)
--- OUTSIDE RECORDS SUMMARY | 2024-12-28 13:19 | XMS_ITS | Clinical Summary ---
Author Organization [employer] [facility] tem Address [facility] [place] [id number] [address] [place] [address] Care Team Providers Care Senior Contract Specialist Name Role Phone No Pcp, No Pcp Primary Care Provider Unavailabl e Allergies No known active allergies Medications MedicationSigDispense QuantityRefillsLast FilledStart DateEnd DateStatus buprenorphine-naloxone (SUBOXONE) 8-2 mg per SL tablet Place 2 tablets under the tongue daily. Patient taking 2 tablet. 8 mg tab sublingualActive predniSONE (DELTASONE) 10 mg tablet Take 10 mg by mouth daily.Active ondansetron (ZOFRAN) 4 mg tablet Take 4 mg by mouth every 6 (six) hours as needed for nausea or vomiting.Active naloxone (NARCAN) 4 mg/actuation spray,non-aerosol nasal spray Administer 1 spray into each nostril as needed for opioid reversal.Active Active Problems No known active problems Family History Medical HistoryRelationNameCommentsCOPDFatherRelationNameStatusCommentsFather AliveMotherDeceased Social History Tobacco UseTypesPacks/DayYears UsedDateSmoking Tobacco: Every DayCigarettes Alcohol UseStandard Drinks/WeekCommentsNo0 (1 standard drink = 0.6 oz pure alcohol)ChildcareAnswerDate PaugfhiaAnfmqmojeJphtmhp51/13/2019EmploymentAnswer Date EtvuzfxyBvlvulpdyyIptkvxg43/13/2019CommentsNoSex and Gender InformationValueDate RecordedSex Assigned at BirthNot on fileLegal SexFemale 08/31/2016 1:54 AM EDTGender IdentityNot on fileSexual OrientationNot on file Last Filed Vital Signs Vital SignReadingTime TakenCommentsBlood Leffwoty595/7012/ 11:52 AM EST Bpxan416502/12/2021 11:52 AM SFPUidyzxaypww87.8 ??C (98.3 ??F)08/31/2016 2:24 AM EDTRespiratory Uwgs058808/31/2016 2:24 AM EDTOxygen Hdbxhcvlrv164%08/31/2016 2:24 AM EDTInhaled Oxygen Concentration--Cipdpt86.3 kg (172 lb 9.9 oz)02/12/2021 11:52 AM TZWStbcez790 cm (5' 3 )12/04/2020 12:34 PM EDTBody Mass Index30.58 12/04/2020 12:34 PM EDT Plan of Treatment Health MaintenanceDue DateLast DoneCommentsDepression Opsyfpkos29/26/1996Tobacco Cvatudyhz06/26/1996Adult BMI Tvwpfwrld79/26/2002DTaP,Tdap and Td Vaccines (1 - Tdap)02/16/2003Pap Smear02/16/2005Influenza Gzrqntn5410/23/2024 Medical Devices Not on file Insurance * Guarantor: Any Ludwig TypeRelation to PatientDate of PhoneBilling AddressPersonal/GgghzbGhqc1985 [address] [address] Care Teams Team MemberRelationshipSpecialtyStart DateEnd Date [place], [place] [address] PCP - [facility]08/30/16
--- OUTSIDE RECORDS SUMMARY | 2024-12-28 13:19 | XMS_ITS | Clinical Summary ---
Author Organization [facility] Address [address] [place], [place] [address] Care Team Providers Care Restaurant Expeditor Name Role Phone Niya Santiago CNP Primary Care Provider [phone] Allergies Active AllergyReactionsCriticalityNoted DateCommentsInfliximab-AxxqAnaphylaxis High10/22/2022 Adverse reaction, chest tightness, shortness of breath and trouble breathing Medications MedicationSigDispense QuantityRefillsLast FilledStart DateEnd DateStatus Cholecalciferol, Vitamin D3, (VITAMIN D) 25 mcg (1,000 unit) cap Indications:Vitamin D deficiencyTake 2 capsules by mouth once daily. 60 capsule ctive triamcinolone acetonide (KENALOG) 0.1 % ointment APPLY TWICE A DAY TO THE AFFECTED AREA OF THE ELBOW10/08/2022ctive ondansetron orally disintegrating (ZOFRAN ODT) 4 mg disintegrating tablet DISSOLVE 1 TABLET BY MOUTH EVERY 8 HOURS NEEDED FOR XNFMGG4612/16/2022ctive buprenorphine HCl/naloxone HCl (BUPRENORPHINE-NALOXONE BUCCAL) Buprenorphine-Naloxone Active 1 FILM SL Q24H April 13, 2023 12:00am 08/07/2022ctive clobetasol (TEMOVATE) 0.05 % cream APPLY THIN LAYER TO ELBOW REGION TWICE DAILY FOR 14 DAYS03/11/2023ctive nabumetone (RELAFEN) 750 mg tablet Take by mouth.08/22/2022ctive venlafaxine ER (EFFEXOR XR) 150 mg 24 hr capsule TAKE 1 CAPSULE BY MOUTH DAILY. DO NOT CRUSH OR CHEW05/03/2023ctive albuterol HFA (PROVENTIL HFA, VENTOLIN HFA) 90 mcg/actuation inhaler Indications:WheezingInhale 2 Puffs as instructed every 4 hours as needed for wheezing/shortness of breath. 6.7 g 4Active cetirizine (ZYRTEC) 10 mg tablet Indications:WheezingTake 1 tablet by mouth once daily. 30 tablet 4Active VYVANSE 50 mg capsule TAKE 1 CAPSULE BY MOUTH IN THE MORNING. DO NOT START BEFORE MARCH 25, 2024. Active gabapentin (NEURONTIN) 600 mg tablet TAKE 1 TABLET BY MOUTH 3 TIMES A DAY FOR ANXIETYActive tocilizumab (ACTEMRA) 162 mg/0.9 mL subcutaneous injection Indications:Seropositive rheumatoid arthritis (HCC)Inject 162mg (1 syringe) subcutaneously every 2 weeks. 2 Each 5Active Active Problems ProblemNoted DateDiagnosed DateCyclic citrullinated peptide (CCP) antibody wixrihro84/08/2018Rheumatoid factor iobubmel94/08/2018Seropositive rheumatoid zejplfqss54/08/2018Smokes and motivated to quit12/30/2017 Overview (12/30/2017): Counseled on cessation Vitamin D izbstqijjd67/02/2018 Immunizations ImmunizationAdministration DatesNext Duediphtheria tetanus pertussis (DTP) uqhkdlj0906/02/2021 Social History Tobacco UseTypesPacks/DayYears UsedDateSmoking Tobacco: Light SmokerCigarettes Started: 04/22/2012Smokeless Tobacco: Never Tobacco Cessation:Ready to Q uit: Not Asked; Counseling Given: Yes Comments:social smoker not everyday Alcohol UseStandard Drinks/WeekCommentsNo0 (1 standard drink = 0.6 oz pure alcohol)PHQ-2AnswerDate RecordedPHQ-2 dczwa308Area Deprivation Index AnswerDate RecordedNational Score (1-100), lower number is lower risk87 09/17/2022State Score (1-10), lower number is lower xowr8733Data from: https://www.neighborhoodatlas.medicine.[facility].edu/. Last address used for u[address]09/17/2022CommentsNoSex and Gender InformationValueDate RecordedSex Assigned at BirthNot on fileLegal SexFemale 12/08/2016 1:23 PM EDTGender IdentityNot on fileSexual OrientationNot on file Last Filed Vital Signs Vital SignReadingTime TakenCommentsBlood Cjjslfum184/70003/31/2024 1:49 PM EST Tvooq779203/31/2024 1:49 PM LPYIxlojottgjw93.4 ??C (97.5 ??F)05/26/2023 1:42 PM EDTRespiratory Vikl974404/28/2023 12:15 PM ESTOxygen Mklquztuua35%05/26/2023 1:42 PM EDTInhaled Oxygen Concentration--Ddfcdr23.7 kg (162 lb 7.7 oz)03/31/2024 1:49 PM QZVNnhwnz795 cm (5' 3 )03/31/2024 1:49 PM ESTBody Mass Index28.78003/31/2024 1:49 PM EST Plan of Treatment Health MaintenanceDue DateLast DoneCommentsCovid-19 Vaccine (#1)02/16/1989 Cervical Cancer Egfcsxtxt14/26/1995Anxiety Pzuegaydd61/26/2002Depression Xrpttcxiz48/26/2002Hepatitis B Vaccine (1 of 3 - 19+ 3-dose series)02/16/2003 Pneumococcal Vaccine (1 of 2 - PCV)02/16/2003Shingrix Vaccine (1 of 2)02/16/2003 HPV Vaccine (1 - 3-dose SCDM series)02/16/2011Influenza Vaccine (#1)2024 Mammogram Thlpigjri72/30/17985103/23/2024DTaP,Tdap,Td Vaccine (2 - Tdap)06/03/2031 06/02/2021HIV PdpyxseqpYasruuwnc69/08/2018, 04/22/2017Hepatitis C Screening Dfxgswrna56/21/2022, 03/29/2020, 12/19/2018, Additional history exists Procedures Procedure NamePriorityDate/TimeAssociated DiagnosisCommentsHEPATITIS C ANTIBODY IA WITH SHMRNHYUOYXABhgduny01/21/2022 4:15 PM EDT Seropositive rheumatoid arthritis (HCC) HIV 1/2 COMBO WITH REFLEX TO BFOTJXBGLSMKMLQGdrdyog52/08/2018 1:19 PM EST Seropositive rheumatoid arthritis (HCC) Encounter for monitoring leflunomide therapy Pain in joint, multiple sites from Last 3 Months or Most Recently Relevant to Health Maintenance Results * HEP C AB IA W/CONF SCRN (06/12/2021 4:15 PM EDT)ComponentValueRef RangeTest MethodAnalysis TimePerformed AtPathologist SignatureHep C Antibody IANegative Jdschgqp69/22/2022 11:59 AM EDTCTRIHEALTH MCCULLOUGH-[facility] LABComment:The result suggests no evidence of active infection with Hepatitis C virus. Should recent infectionbe suspected, repeat testing may be considered 4-6 weeks after this draw.Specimen (Source)Anatomical Location / LateralityCollection Method / VolumeCollection TimeReceived TimeBloodBLOOD SPECIMEN / UnknownVenipuncture / Wfjeqao5906/12/2021 4:15 PM EDT06/12/2021 4:18 PM EDT Narrative Authorizing ProviderResult TypeResult StatusFariba Frank APRN.CNPLABORATORY Final ResultPerforming OrganizationAddressCity/State/ZIP CodePhone Number [facility] [address] * HIV 1,2 COMBO (AG/AB) (12/30/2017 1:19 PM EST)ComponentValueRef RangeTest MethodAnalysis TimePerformed AtPathologist SignatureHIV 12 Combo (Ag/Ab)Non ReactiveNon Hstsctce84/09/2018 7:10 PM ESTUNIVERSITY H[facility]ITALS [facility] Comment: (NOTE) HIV Information: ??Dane Rev. Code 3701.243(E): This information has been [...] release of HIV test results or diagnoses. Specimen (Source)Anatomical Location / LateralityCollection Method / Volume Collection TimeReceived TimeBlood specimen (specimen)BLOOD SPECIMEN / Unknown 12/30/2017 1:19 PM EST12/30/2017 1:22 PM EST Narrative Authorizing ProviderResult TypeResult StatusJuan Daniel Leos MDLABORATORYFinal ResultPerforming OrganizationAddressCity/State/ZIP CodePhone Number [facility] [address] [place] [address] from Last 3 Months or Most Recently Relevant to Health Maintenance Insurance Care Teams Team MemberRelationshipSpecialtyStart DateEnd Date Niya Santiago, BIOLOGICS SPECIALIST [address] [place] [phone] PCP - GeneralFamily Medicine03/31/24
--- OUTSIDE RECORDS SUMMARY | 2024-12-28 13:19 | XMS_ITS | Clinical Summary ---
Author Organization [facility] Address [address] [place] [address] Care Team Providers Care Security Guard Supervisor Name Role Phone Madhu Voss MD Primary Care Provider [phone] Niya Santiago NP Unavailable [phone] Allergies Active AllergyReactionsCriticalityNoted DateCommentsInfliximabAnaphylaxisHigh 10/22/2022 Adverse reaction, chest tightness, shortness of breath and trouble breathing Medications MedicationSigDispense QuantityRefillsLast FilledStart DateEnd DateStatus Buprenorphine HCl-Naloxone HCl (Suboxone) 8-[address] 2 Film under the tongue in the morning.Active tocilizumab (Actemra) injection Inject 162 mg under the skin every 14 (fourteen) days5Active albuterol HFA 90 mcg/act inhaler Indications:WheezingInhale 2 puffs every 6 (six) hours if needed for wheezing or shortness of breath 18 g 5Active budesonide-formoterol (Symbicort) 80-4.5 MCG/ACT inhaler Indications:WheezingInhale 2 puffs in the morning and 2 puffs before bedtime. Rinse mouth after use. 1 each 5Active lisdexamfetamine (Vyvanse) 50 MG capsule Indications:ADHD (attention deficit hyperactivity disorder), combined typeTake 1 capsule (50 mg) by mouth in the morning. 30 capsule 5Active penicillin V (Veetid) 250 MG tablet Take 250 mg by mouth in the morning and 250 mg at noon and 250 mg in the evening and 250 mg before bedtime.5Active naloxone (Narcan) 4 mg/0.1 mL nasal spray 5Active lisdexamfetamine (Vyvanse) 50 MG capsule Indications:ADHD (attention deficit hyperactivity disorder), combined typeTake 1 capsule (50 mg) by mouth in the morning. 30 capsule 5Active lisdexamfetamine (Vyvanse) 50 MG capsule Indications:ADHD (attention deficit hyperactivity disorder), combined typeTake 1 capsule (50 mg) by mouth in the morning. Do not start before October 29, 2024. 30 capsule 5Active venlafaxine XR (Effexor XR) 150 MG 24 hr capsule Indications:AnxietyTake 1 capsule (150 mg) by mouth Daily 30 capsule 505Active gabapentin (Neurontin) 600 MG tablet Indications:Anxiety,Median nerve neuritis, leftTake 1 tablet (600 mg) by mouth in the morning and 1 tablet (600 mg) in the evening and 1 tablet (600 mg) before bedtime. 90 tablet 5Active lisdexamfetamine (Vyvanse) 50 MG capsule Indications:ADHD (attention deficit hyperactivity disorder), combined typeTake 1 capsule (50 mg) by mouth in the morning. 30 capsule 5Active Active Problems ProblemNoted DateDiagnosed DateMedian nerve neuritis, left08/30/2024Vitamin D jpdtvzxrle21/05/2025igarette nicotine dependence without nbchriuhsdzs72/05/2025 Assessment & Plan (08/30/2024 6:14 AM EDT): The patient has been advised of the risks of continued smoking: stroke, SC, all forms of cancer, lung disease, and . Options for quitting smoking include: cold turkey, hypnosis, acupuncture, nicotine replacement meds(gum, lozenges, and patches), Buproprion, and Varenicline. At this time pt is encouraged to evaluate their goals for wanting to quit smoking, and reach out toprovider when ready to start this process Assessment & Plan (04/26/2024 7:02 AM EST): The patient has been advised of the risks of continued smoking: stroke, SC, all forms of cancer, lung disease, and . Options for quitting smoking include: cold turkey, hypnosis, acupuncture, nicotine replacement meds(gum, lozenges, and patches), Buproprion, and Varenicline. At this time pt is encouraged to evaluate their goals for wanting to quit smoking, and reach out toprovider when ready to start this process Well woman exam with routine gynecological exam02/28/2024 Assessment & Plan (03/01/2024 6:25 AM EST): Reviewed Ht/Wt/BMI Recommend eye exam yearly Recommend dental exams twice a year Balance work/leisure activities Exercises is recommended most days of the week (appropriate as chronic conditions allow) Monthly BSE, yearly mammogram Obtain thin prep, fu as per PAP indications Screening mammogram for breast onjicx1102/28/2024 Assessment & Plan (03/01/2024 6:24 AM EST): Will order Recommend monthly BSE and yearly mammograms Neutropenia, jbenteziqbr60/29/2024 Assessment & Plan (04/26/2024 7:01 AM EST): Was given lab order at last visit to recheck, no results received as of today's visit Assessment & Plan (01/25/2024 6:59 AM EST): Was given lab order at last visit to recheck, no results received as of today's visit Assessment & Plan (10/21/2023 1:38 PM EDT): Recheck CBC Vrcoidxs71/29/2024 Assessment & Plan (04/26/2024 1:38 PM EST): No hx of asthma, is using albuterol more than 2 times daily Add ICS/LABA Rinse mouth after use Fu in 3 months Lryrvv4110/21/2023 Assessment & Plan (04/26/2024 1:38 PM EST): Refill zofran Hearing loss, left05/03/2023Opioid abuse, uymbyfuqzrfne33/11/2024 Assessment & Plan (08/30/2024 6:13 AM EDT): Is taking suboxone, provider is [facility] Continue treatment with them Assessment & Plan (04/26/2024 7:02 AM EST): Is taking suboxone, provider is [facility] Continue treatment with them Assessment & Plan (03/01/2024 6:23 AM EST): Is taking suboxone, provider is [facility] Continue treatment with them Assessment & Plan (01/25/2024 3:09 PM EST): Is taking suboxone, provider is [facility] Goes to IOP difficulty with finding time to go Will discuss at next appt as she should be done with IOP at that time and may be able to focus on an appt Rheumatoid arthritis, vsnjmddoefi75/11/2024 Assessment & Plan (03/01/2024 11:20 AM EST): Was under the care of Rheumatology, new provider has not been back, is now scheduled for 05/16 I would encourage her to go back as untreated RA does cause wide spread and permanent damage to joints. Is having a current flare, asking for steroids Will send in to [facility] prednisone Assessment & Plan (01/25/2024 3:06 PM EST): Used to see Rheumatology with [facility], they quit, she has not been back Assessment & Plan (10/21/2023 1:38 PM EDT): Continue with Rheumatology HPV in cokjmh744Carpal tunnel czmosfgp24/11/2024Mild byffirbyrt30/11/2024 Assessment & Plan (08/30/2024 6:14 AM EDT): Current dose of effexor XR 150mg daily Assessment & Plan (01/25/2024 6:59 AM EST): Current dose of effexor XR 150mg daily Assessment & Plan (05/03/2023 3:41 PM EDT): Is feeling a little down, wanting to know if could increase the dose of effexor We will increase to 150mg daily Fu in 6 weeks for this BMI 29.0-29.9,adult03/11/20239893Tzhxlrvxg69/18/2755Vaisszl54/04/2023 Assessment & Plan (08/30/2024 6:14 AM EDT): Current dose of effexor xr is 150mg and prn buspirone Assessment & Plan (04/26/2024 1:38 PM EST): Current dose of effexor xr is 150mg MADIHA 7= 3 PHQ 9= 7 No change in med doses Assessment & Plan (01/25/2024 7:00 AM EST): Current dose of effexor xr is 150mg Assessment & Plan (10/21/2023 1:38 PM EDT): Continue with effexor Assessment & Plan (07/22/2023 2:37 PM EDT): Doing well on increase in effexor dose Will continue at 150mg XR Fu in 3 months Assessment & Plan (05/03/2023 3:41 PM EDT): Will trial an increase in effexor XR to 150mg daily Fu in 6 weeks Assessment & Plan (01/25/2023 11:30 AM EST): Will increase Effexor XR to 75mg Fu in 6 weeks for a recheck ADHD (attention deficit hyperactivity disorder), combined type01/25/2023 Assessment & Plan (08/30/2024 6:14 AM EDT): Has been taking Vyvanse at 50mg daily OARRS reviewed Assessment & Plan (04/26/2024 7:01 AM EST): Has been taking Vyvanse at 50mg daily OARRS reviewed Assessment & Plan (01/25/2024 7:00 AM EST): Has been taking Vyvanse at 50mg daily OARRS reviewed Cyclic citrullinated peptide (CCP) antibody /08/2018 Resolved Problems ProblemNoted DateDiagnosed DateResolved DateSubacute maxillary sinusitis 4103/27/2023 Assessment & Plan (10/21/2023 1:40 PM EDT): Atb, fluid, rest follow up if not better Will give albuterol refill as well for wheeze Non toxic looking Tobacco user/06/2024 Assessment & Plan (03/01/2024 6:25 AM EST): The patient has been advised of the risks of continued smoking: stroke, SC, all forms of cancer, lung disease, and . Options for quitting smoking include: cold turkey, hypnosis, acupuncture, nicotine replacement meds(gum, lozenges, and patches), Buproprion, and Varenicline. At this time pt is encouraged to evaluate their goals for wanting to quit smoking, and reach out toprovider when ready to start this process Assessment & Plan (01/25/2024 6:58 AM EST): The patient has been advised of the risks of continued smoking: stroke, SC, all forms of cancer, lung disease, and . Options for quitting smoking include: cold turkey, hypnosis, acupuncture, nicotine replacement meds(gum, lozenges, and patches), Buproprion, and Varenicline. At this time pt is encouraged to evaluate their goals for wanting to quit smoking, and reach out toprovider when ready to start this process Assessment & Plan (07/22/2023 2:37 PM EDT): Take medication only as directed. This medication will take approximately 4-6 weeks to become effective. If any suicidal thoughts, thoughts of hurting others, or hallucinations contact the office or proceed to the Emergency Room for mental health evaluation. Medication may cause dry mouth, dizziness, and in some cases worsening in depression symptoms. Please contact the office if these occur. Adult ADHD (attention deficit hyperactivity disorder) Overview (07/22/2023): Med agreement signed: 07/22/23 Assessment & Plan (10/21/2023 1:38 PM EDT): No changes in meds or doses OARRS reviewed Fu in 3 months Assessment & Plan (07/22/2023 2:38 PM EDT): No changes in meds or doses OARRS reviewed Fu in 3 months Med agreement signed Assessment & Plan (05/03/2023 3:40 PM EDT): No changes in meds or doses OARRS reviewed Fu in 3 months Assessment & Plan (01/25/2023 11:28 AM EST): Will continue with Vyvanse at 50 mg OARRS reveiwed Fu in 3 months Encounters DateTypeDepartmentCare PgzvHrsrxsjddkm08/11/2025Refill [facility] [address] [place] [place] [address] Niya Santiago NP ADHD (attention deficit hyperactivity disorder), combined type10/02/2024 Telephone [facility] [address] [place] [address] Mahdu Voss MD Med Refillfrom Last 3 Months Immunizations ImmunizationAdministration DatesNext KavEKU9006/02/2021 Family History Medical HistoryRelationNameCommentsRheum arthritisMotherRelationNameStatus CommentsFatherAliveMotherDeceased Social History Tobacco UseTypesPacks/DayYears UsedDateSmoking Tobacco: Every DayCigarettes0.515 Smokeless Tobacco: Never Tobacco Cessation:Ready to Q uit: Not Asked; Counseling Given: Not Answered Alcohol UseStandard Drinks/WeekCommentsNever0 (1 standard drink = 0.6 oz pure alcohol)PHQ-2AnswerDate RecordedPatient Health Questionnaire-2 Eyjxa909 CommentsUnknownSex and Gender InformationValueDate RecordedSex Assigned at BirthNot on fileLegal SgdKaxkxe28/15/2023 8:06 PM EDTGender IdentityNot on fileSexual OrientationNot on file Last Filed Vital Signs Vital SignReadingTime TakenCommentsBlood Dhriruvp994/90008/30/2024 9:14 AM EDT Rcgrg517208/30/2024 9:14 AM IFOOenelxbzpmn55.9 ??C (98.5 ??F)08/30/2024 9:14 AM EDTRespiratory Osck055608/30/2024 9:14 AM EDTOxygen Rocfejcmhe08%08/30/2024 9:14 AM EDTInhaled Oxygen Concentration--Yzkzgo15.9 kg (147 lb 6.4 oz)08/30/2024 9:14 AM CECUedddd291 cm (5' 3 )04/26/2024 1:04 PM ESTBody Mass Index26.11004/26/2024 1:04 PM EST Plan of Treatment Not on file Insurance Care Teams Team MemberRelationshipSpecialtyStart DateEnd Date Madhu Voss MD PCP - GeneralFamily Medicine04/28/23 Niya aSntiago NP Nurse PractitionerFamily Medicine04/28/23
--- OUTSIDE RECORDS SUMMARY | 2024-12-28 13:19 | XMS_ITS | Clinical Summary ---
Author Organization [facility] Address [address], [address] [place] [address] Care Team Providers Care Assembler Golf Wood Head Name Role Phone Unavailable Primary Care Provider Unavailabl e Allergies No known active allergies Medications MedicationSigDispense QuantityRefillsLast FilledStart DateEnd DateStatus Respiratory Therapy Supplies (NEBULIZER/TUBING/MOUTHPIECE) KIT 1 kit by Does not apply route daily as needed (reactive airway disease) 1 kit 09/15/2020ctive ipratropium-albuterol (DUONEB) 0.5-2.5 (3) MG/3ML SOLN nebulizer solution Inhale 3 mLs into the lungs every 4 hours 360 mL 09/15/2020ctive budesonide (PULMICORT) 0.5 MG/2ML nebulizer suspension Take 2 mLs by nebulization 2 times daily 30 ampule 09/15/2020ctive buprenorphine-naloxone (SUBOXONE) 8-2 [address] SL film Place 1 Film under the tongue daily.Active Respiratory Therapy Supplies (NEBULIZER/TUBING/MOUTHPIECE) KIT 1 kit by Does not apply route daily as needed (pneumonia) 1 kit 09/16/2020ctive Active Problems Patient Care Coordination No te Formatting of this note migh t be different from the original. signficant rheumatoid issues, left wrist exacerbation, has taken gabapentin in the past Hypertension, chronic, on labetalol [place] risk assesment form = testing = Ped = Blood type = Rhogam? = Flu shot = TDAP (27-36 wks)= GBS = negative Card - ProblemNoted DateDiagnosed DateThreatened ohelnlhrykm58/28/2019Hypertension affecting in first hwotxzgwt16/03/2019History of intravenous drug abuse11/24/2018Cyclic citrullinated peptide (CCP) antibody mrubbofp87/08/2018 Nicotine dependence, cigarettes, /20/2018Pain in left shoulder 11/22/2016Normal delivery Resolved Problems ProblemNoted DateDiagnosed DateResolved DateTerm qvmrzhdue25 Family History Medical HistoryRelationNameCommentsDiabetesMaternal AuntHypertensionMaternal AuntDiabetesMaternal GrandmotherHypertensionMaternal GrandmotherOtherOtherNo family h/o ovarian or breast cancer.RelationNameStatusCommentsBrotherAliveFather AliveMaternal AuntMaternal GrandfatherDeceasedMaternal GrandmotherDeceasedMother DeceasedOtherOtherPaternal GrandfatherDeceasedPaternal GrandmotherDeceased Social History Tobacco UseTypesPacks/DayYears UsedDateSmoking Tobacco: Every DayCigarettes Smokeless Tobacco: Never Tobacco Cessation:Ready to Q uit: No Comments:patient declines counseling Alcohol UseStandard Drinks/WeekCommentsNot Currently0 (1 standard drink = 0.6 oz pure alcohol)PHQ-2AnswerDate RecordedPHQ-2 Sekjg722CommentsNoSex and Gender InformationValueDate RecordedSex Assigned at BirthNot on fileLegal AwlIlrypx29/22/2018 1:13 AM EDTGender IdentityNot on fileSexual OrientationNot on file Last Filed Vital Signs Vital SignReadingTime TakenCommentsBlood Uylyupho251/8105 9:06 PM EDT Stcbi924407/11/2021 9:05 PM PTRVeuezapjrai58.2 ??C (98.9 ??F)07/11/2021 9:06 PM EDTRespiratory Njyt072307/11/2021 9:05 PM EDTOxygen Jezsabybhz154%07/11/2021 9:05 PM EDTInhaled Oxygen Concentration--Vyxxtr46.8 kg (145 lb)09/15/2020 5:13 PM EDT Rbkwgl642 cm (5' 3 )03/15/2020 4:01 PM ESTBody Mass Index25.69003/15/2020 4:01 PM EST Plan of Treatment Not on file Advance Directives * Full Code (Latest Code Status on File) Date ActivatedDate InactivatedComments07/12/2019 1:54 PM07/13/2019 3:24 PM * Full Code Date ActivatedDate InactivatedComments07/11/2019 8:21 PM07/12/2019 1:54 PM * Full Code Date ActivatedDate InactivatedComments07/11/2019 7:48 PM07/11/2019 7:51 PM
--- OUTSIDE RECORDS SUMMARY | 2024-12-28 13:26 | XMS_ITS | CCD ---
Author Organization [facility] Care Team Providers Care Biomedical Engineering Professor Name Role Phone Unavailable Primary Care Provider UnavailTino Azar Primary Care Provider ALEX REINOSO Attending Unavailable Tino Blake Primary Care Provider [phone]( [phone] Tino Blake Primary Care Provider Tino Blake Primary Care Provider CHET, NONE LISTED Primary Care Unavaila ble CHARANJIT [...] SINAN CRUZ Consulting UnavailRIMMA Figueredo Consulting Unavailable Tino lBake MD Primary Care Provider Hayden CID, Tino Cantrell Primary Care Provider Madhu Voss MD Primary Care Provider [phone] Aichholz IN STORE MARKETER, Niya Unavailable Aichholz FOOD SAMPLER, Niya Torres Primary Care Provider CRAIG WADE Attending Unavailable HAYDEN, TINO SOREN Primary Care Unavaila ble AICHHOLZ, NIYA IRLANDA Primary Care Unavailable HAYDEN, [facility] Primary Care Unavaila ble LIZ, FARIBA M Attending Unavailable HAYDEN, [facility] Primary Care Unavaila ble HAYDEN, [facility] Primary Care Unavaila ble AICHHOLZ, NIYA Attending Unavailable AICHHOLZ, NIYA Attending Unavailable AICHHOLZ, NIYA Attending Unavailable AICHHOLZ, NIYA Attending Unavailable AICHHOLZ, NIYA Attending Unavailable Kanalvina EDDY, Ken Unavailable Unavailable Ortez DDS, Donis Attending Unavailable Ortez DDS, Donis Unavailable Unavailable Ortez DDS, Donis Unavailable Unavailable Allergies Allergy ClassificationReported Allergen(s)Allergy TypeDate of OnsetReaction(s) Facility (20 sources)inFLIXimab; Translations: [INFLIXIMAB-AXXQ]Drug [id number] [facility] ([facility])inFLIXimabDrug Pthjzrn21-74-7879JwnemskifttUNQB [facility] Medications Current Medications MedicationDrug Class(es)DatesSig (Normalized)Sig (Original)acetaminophen 325 mg oral tablet (2 sources)Start: 07-11-2019 End: 18-98-9822guza 650 mg by mouth every four hours as needed for fever, then take 4000 mg by mouth every twenty-four hours as needed for fxnal374 mg, Oral, EVERY 4 HOURS PRN, Fever, Fever >100.5 F (38 C) or pain 1-10, Starting 07/12/19at 1354 Maximum dose of acetaminophen is 4000 mg from all sources in 24 hours. [id number] 200 actuat albuterol 0.09 mg/actuat metered dose inhaler (20 sources)beta2-Adrenergic AgonistStart: 12-20-2023 End: 60-17-9189iabd 2 puff(s) by inhalation every six hours for wheezing albuterol HFA 90 mcg/act inhaler Indications: Wheezing Inhale 2 puffs every 6 (six) hours if neededfor wheezing or shortness of breath 18 g 05/01/2024 Active Start: 10-21-2023 End: 29-14-5810lhdr 2 puff(s) by inhalation every six hours for wheezing albuterol HFA (Ventolin HFA) 90 mcg/act inhaler Indications: Wheezing Inhale 2 puffs every 6 (six) hours if needed for wheezing 18 g 1 10/21/2023 11/20/2023 ActiveStart: 33-58-7924krpi 2 puff(s) by inhalation every four hours as needed for wheezingalbuterol HFA (PROVENTIL HFA, VENTOLIN HFA) 90 mcg/actuation inhaler Indications: Wheezing Inhale 2Puffs as instructed every 4 hours as needed for wheezing/shortness of breath. 6.7 g 05/26/2023 ActiveStart: 05-26-2023 End: 07-96-2771uqxxwchrm 2.5 mg /3 mL (0.083 %) 2.5 mg (PROVENTIL)Start: 08-22-2022 End: 11-44-4064yuxl 1 puff(s) by inhalation every six hours as needed for wheezingalbuterol HFA (PROVENTIL HFA, VENTOLIN HFA) 90 mcg/actuation inhaler INHALE 1 PUFF EVERY 6 HOURS ASNEEDED FOR SHORTNESS OF BREATH OR WHEEZING 0 08/22/2022 05/26/2023 DiscontinuedComment on above:INHALE 1 PUFF EVERY 6 HOURS NEEDED FOR SHORTNESS OF BREATH OR WHEEZINGInhale 2 Puffs as instructed every 4 hours as needed for wheezing/shortness of breath.albuterol 0.833 mg/ml / ipratropium bromide 0.167 mg/ml inhalation solution (2 sources)Anticholinergic, beta2-Adrenergic AgonistStart: 09-15-2020 ipratropium-albuterol (DUONEB) nebulizer solution 1 ampuleStart: 49-37-0887lgte 3 mL by inhalation every four hoursipratropium-albuterol (DUONEB) 0.5-2.5 (3) MG/3ML SOLN nebulizer solution Inhale 3 mLs into the lungs every 4 hours 360 mL 0 09/15/2020 Activealbuterol 108 (90 Base) MCG/ACT inhaler (3 sources) End: 01-73-9037yfnd 2 puff(s) by inhalation every six hours for wheezing albuterol 108 (90 Base) MCG/ACT inhaler Inhale 2 puffs every 6 (six) hours if needed for wheezing or shortness of breath 10/21/2023 Discontinued (Therapy completed)take 2 puff(s) by inhalation every six hours for wheezingalbuterol 108 (90 Base) MCG/ACT inhaler Inhale 2 puffs every 6 (six) hours if needed for wheezing or shortness of breath Activeamoxicillin 875 mg / clavulanate 125 mg oral tablet (2 sources)Penicillin-class AntibacterialStart: 10-21-2023 End: 41-61-7924lowf 1 tablet by mouth in the morningamoxicillin-clavulanate (Augmentin) 875-125 MG tablet Indications: Subacute maxillary sinusitis Take 1 tablet (875 mg) by mouth in the morning and 1 tablet (875 mg) before bedtime. Do all this for 10days. Take with food. 20 tablet 10/21/2023 10/31/2023 Active benzocaine 200 mg/ml / menthol 5 mg/ml topical spray (1 source)Standardized Chemical AllergenStart: 07-45-1245tfvlf 1 dose topically twice dailyTopical, 2 TIMES DAILY, First dose on Wed07/12/19 at 1415 Apply to perineal area. Patient is capable and may self administer at bedside. budesonide 0.25 mg/ml inhalation suspension (2 sources)CorticosteroidStart: 40-99-7315lrlwbhmpzq (PULMICORT) nebulizer suspension 500 mcgStart: 24-48-0020ezsfyuteip (PULMICORT) 0.5 MG/2ML nebulizer suspension Take 2 mLs by nebulization 2 times daily 30 ampule 0 09/15/2020 Zbueey75 actuat budesonide 0.08 mg/actuat / formoterol fumarate 0.0045 mg/actuat metered dose inhaler (9 sources)Corticosteroid, beta2-Adrenergic AgonistStart: 07-24-2024 End: 18-43-7146tznr 2 puff(s) by inhalation in the morningbudesonide-formoterol (Symbicort) 80-4.5 MCG/ACT inhaler Indications: Wheezing Inhale 2 puffs in the morning and 2 puffs before bedtime. Rinse mouth after use. 1 each 3 07/24/2024 ActiveStart: 04-26-2024 End: 04-21-7914wuxi 2 puff(s) by inhalation in the morningbudesonide-formoterol (Symbicort) 80-4.5 MCG/ACT inhaler Indications: Wheezing Inhale 2 puffs in the morning and 2 puffs before bedtime. Rinse mouth with water after use to reduce aftertaste and incidence of candidiasis. Do not swallow.. 10.2 g 2 04/26/2024 07/24/2024 Discontinuedbuprenorphine 8 mg / naloxone 2 mg sublingual film (20 sources)Partial Opioid Agonist, Opioid AntagonistBuprenorphine HCl-Naloxone HCl (Suboxone) 8-[address] 2 Film under the tongue in the morning. Active End: 63-88-4364ppgkajaufgcql-naloxone (SUBOXONE) 8-2 mg film Dissolve under the tongue once daily. Prescribed by outside physician 0 05/26/2023 Discontinued Comment on above:Dissolve under the tongue once daily. Prescribed by outside physicianbuprenorphine HCl/naloxone HCl (BUPRENORPHINE-NALOXONE BUCCAL) (11 sources)Start: 87-01-1973gxorfqckkinus HCl/naloxone HCl (BUPRENORPHINE- NALOXONE BUCCAL) Buprenorphine-Naloxone Active 1 FILMSL Q2H April 13, 2023 12:00am 08/07/2022 ActiveStart: 76-26-8118nbfdtiuenpzvs HCl/naloxone HCl (BUPRENORPHINE-NALOXONE BUCCAL) Buprenorphine-Naloxone Active 1 FILMSL Q24H April 13, 2023 12:00am 0 08/07/2022 ActiveComment on above:Buprenorphine- Naloxone Active 1 FILM SL Q2April 13, 2023 12:00ambusPIRone hydrochloride 5 mg oral tablet (4 sources)Start: 07-10-2024 End: 84-57-5142fijf 1 tablet by mouth every eight hours as neededbusPIRone (Buspar) 5 MG tablet Take 5 mg by mouth every 8 (eight) hours if needed (anxiety) 07/10/2024 08/30/2024 Discontinued (Therapy completed)1 ml carboprost 0.25 mg/ml injection (1 source)Prostaglandin AnalogStart: 12-96-0248vcyaygtjlo (HEMABATE) injection 250 mcgcephalexin 500 mg oral capsule (1 source)Cephalosporin AntibacterialStart: 05-12-2019 End: 14-92-8450hbwg 1 capsule by mouth four times dailycephALEXin (KEFLEX) 500 MG capsule Take 1 capsule by mouth 4 times daily for 7 days 28 capsule 0 05/19/2019 Activecetirizine hydrochloride 10 mg oral tablet (15 sources)Histamine-1 Receptor AntagonistStart: 05-26-2023 End: 37-23-8220taxj 1 tablet by mouth once dailycetirizine (ZYRTEC) 10 mg tablet Indications: Wheezing Take 1 tablet by mouth once daily. 30 kxbmar9305/26/2023 ActiveComment on above:Take 1 tablet by mouth once daily.cholecalciferol 0.025 mg oral capsule (20 sources)Vitamin DStart: 02-96-4194jwrm 2 capsules by mouth once daily Cholecalciferol, Vitamin D3, (VITAMIN D) 25 mcg (1,000 unit) cap Indications: Vitamin D deficiency Take 2 capsules by mouth once daily. 60 capsule 3 01/06/2022 ActiveStart: 10-29-2021 End: 01-83-2588hnxm 2 capsules by mouth once dailyCholecalciferol, Vitamin D3, (VITAMIN D) 25 mcg (1,000 unit) cap Indications: Vitamin D deficiency Take 2 capsules by mouth once daily. 60 capsule 3 10/29/2021 ActiveComment on above: Take 2 capsules by mouth once daily.clobetasol propionate 0.5 mg/ml topical cream (14 sources)CorticosteroidStart: 03-11-2023 End: 88-44-9573qrdqblkkki (TEMOVATE) 0.05 % cream APPLY THIN LAYER TO ELBOW REGION TWICE DAILY FOR 14 DAYS 03/11/2023 ActiveComment on above:APPLY THIN LAYER TO ELBOW REGION TWICE DAILY FOR 14 DAYSdexamethasone 1 mg/ml / tobramycin 3 mg/ml ophthalmic suspension (1 source)Aminoglycoside Antibacterial, CorticosteroidStart: 01-16-2019 End: 91-55-1936lxzq 2 drop(s) into the eye(s) four times dailytobramycin- dexamethasone (TOBRADEX) 0.3-0.1 % ophthalmic suspension Indications: Other mucopurulentconjunctivitis of right eye Place 2 drops into the right eye 4 times daily for 7 days 1 Bottle 0 01/16/2019 01/23/2019 Activedextromethorphan hydrobromide 2 mg/ml / guaiFENesin 20 mg/ml oral suspension (1 source)Uncompetitive H-aqfwzb-T-aspartate Receptor Antagonist, Sigma-1 AgonistStart: 09-15-2020 End: 92-28-1552ting 5 mL by mouth three times daily as needed for cough guaiFENesin-dextromethorphan (ROBITUSSIN DM) 100-10 MG/5ML syrup Take 5 mLs by mouth 3 times daily as needed for Cough 120 mL 0 09/15/2020 09/25/2020 Active docusate sodium 100 mg oral capsule (1 source)Start: 55-20-7697izuj 100 mg by mouth twice daily as needed for blxbkfspacxq600 mg, Oral, 2 TIMES DAILY PRN, Constipation, Starting 07/12/19 at 1354 Do not crush or break. Postpartumgabapentin 600 mg oral tablet (20 sources)Anti-epileptic AgentStart: 04-03-2022 End: 34-96-2737rzfs 1 tablet by mouth in the morning, then take 1 tablet by mouth in the evening, then take 1 tablet by mouth at bedtimegabapentin (Neurontin) 600 MG tablet Indications: Anxiety , Median nerve neuritis, left Take 1 tablet (600 mg) by mouth in the morning and 1 tablet (600 mg) in the evening and 1 tablet (600 mg) before bedtime. 90 tablet 2 08/30/2024 Active Comment on above:TAKE 1 TABLET BY MOUTH 3 TIMES A DAY FOR ANXIETYibuprofen 800 mg oral tablet (20 sources)Nonsteroidal Anti-inflammatory DrugStart: 08-24-2024 End: 36-76-9688fjdo 1 tablet by mouth every eight hours at mealtime for pain ibuprofen 800 MG tablet Indications: Median nerve neuritis, left Take 1 tablet (800 mg) by mouth every 8 (eight) hours if needed for moderate pain for up to 15 days Take with food 45 tablet 08/30/2024 09/14/2024 ActiveStart: 84-72-9263aixs 800 mg by mouth every eight fenqx124 mg, Oral, EVERY 8 HOURS, First dose on Wed07/12/19 at 1500 Do not crush or break. End: 55-84-2361KYRQEARUY ORAL Take by mouth. 0 10/22/2022 DiscontinuedIBUPROFEN ORAL Take by mouth. 0 ActiveComment on above:Take by mouth.labetalol hydrochloride 100 mg oral tablet (20 sources)beta-Adrenergic BlockerStart: 07-11-2019 End: 59-84-5068usbaccgws (NORMODYNE) tablet 100 mgStart: 11-18-2018 End: 48-81-8852swnf 1 tablet by mouth twice dailylabetalol (NORMODYNE) 100 MG tablet Indications: Hypertension affecting in third trimester Take 1 tablet by mouth 2 times daily 60 tablet 3 05/01/2019 05/04/2019 Discontinued (LIST CLEANUP) End: 89-97-4117tykd 1 tablet by mouth once dailylabetalol (NORMODYNE) 100 MG tablet Take 100 mg by mouth daily 0 09/15/2020 Discontinued (LIST CLEANUP) lansinoh lanolin ointment (1 source)Start: 45-38-0790Bhfhpgv, PRN, Dry Skin, nipple discomfort, Starting Wed07/12/19 at 1354, Postpartumlisdexamfetamine dimesylate 50 mg oral capsule (20 sources)Central Nervous System StimulantStart: 07-02-2023 End: 39-78-2627oeje 1 capsule by mouth in the morninglisdexamfetamine (Vyvanse) 50 MG capsule Indications: ADHD (attention deficit hyperactivity disorder), combined type Take 1 capsule (50 mg) by mouth in the morning. 30 capsule 10/02/2024 11/01/2024 ActiveStart: 01-11-2023 End: 29-19-9757jqpw 1 capsule by mouth onceVYVANSE 50 mg capsule Take 1 capsule by mouth every afternoon. 0 01/11/2023 05/26/2023 DiscontinuedStart: 10-08-2022 End: 22-35-4013ueff 1 capsule by mouth onceVYVANSE 40 mg capsule Take 1 capsule by mouth every afternoon. 0 10/08/2022 01/20/2023 DiscontinuedComment on above: Take 1 capsule by mouth every afternoon.Miconazole (1 source)Azole AntifungalStart: 12-03-2018 End: 99-55-1966Wkbjlvfoxp Nitrate Applicator (MICONAZOLE 3 APPLICATOR) 200 & 2 MG-% (9GM) KIT Place 1 applicator vaginally nightly for 3 days Yeast infection in . 1 kit 0 12/03/2018 12/06/2018 ActivemiSOPROStol 0.1 mg oral tablet (1 source)Prostaglandin E1 AnalogStart: 43-58-3797amphkazmufx (CYTOTEC) tablet 900 mcgnabumetone 750 mg oral tablet (15 sources)Nonsteroidal Anti-inflammatory DrugStart: 08-22-2022 End: 77-43-2819pfopsthcuo (RELAFEN) 750 mg tablet Take by mouth. 08/22/2022 ActiveComment on above:Take 750 mg by mouth twice daily as needed.Take by mouth. naloxone hydrochloride 40 mg/ml nasal spray (3 sources)Opioid AntagonistStart: 04-92-0162ejuehcqo (Narcan) 4 mg/0.1 mL nasal spray 08/28/2024 Activeondansetron 4 mg disintegrating oral tablet (20 sources)Serotonin-3 Receptor AntagonistStart: 12-16-2022 End: 69-71-8682kvge 1 tablet by mouth every eight hours as needed for nausea ondansetron orally disintegrating (ZOFRAN ODT) 4 mg disintegrating tablet DISSOLVE 1 TABLET BY MOUTH EVERY 8 HOURS NEEDED FOR NAUSEA 12/16/2022 Active End: 03-79-4359amqw 1 tablet by mouth every six hours as needed for nausea and vomitingondansetron ODT (Zofran-ODT) 4 MG disintegrating tablet Take 4 mg by mouth every 6 (six) hours if needed for nausea or vomiting. 10/21/2023 Discontinued (Reorder)Comment on above:DISSOLVE 1 TABLET BY MOUTH EVERY 8 HOURS NEEDED FOR NAUSEAoseltamivir 75 mg oral capsule (1 source)Neuraminidase InhibitorStart: 04-04-2019 End: 67-28-1691tioe 1 capsule by mouth twice dailyoseltamivir (TAMIFLU) 75 MG capsule Indications: Influenza Take 1 capsule by mouth 2 times daily for 5 days 10 capsule 0 04/04/2019 04/09/2019 Activepenicillin v potassium 250 mg oral tablet (4 sources)Start: 53-79-4809zdxbkxjsev V (Veetid) 250 MG tablet Take 250 mg by mouth in the morning and 250 mg at noon and 250 mg in the evening and 250 mg before bedtime. 08/24/2024 ActivepredniSONE 20 mg oral tablet (20 sources)Start: 03-01-2024 End: 07-04-7605zqyr 1 tablet by mouth in the morningpredniSONE (Deltasone) 20 MG tablet Indications: Rheumatoid arthritis, unspecified (CMS/HCC) Take 1tablet (20 mg) by mouth in the morning and 1 tablet (20 mg) before bedtime. Do all this for 5 days.Take with food. 20 tablet 03/01/2024 03/06/2024 ActiveStart: 05-26-2023 End: 15-31-3295fvks 2 tablets by mouth once dailypredniSONE (DELTASONE) 20 mg tablet Indications: Wheezing Take 2 tablets by mouth once daily for 5 days. 10 tablet 0 05/26/2023 05/31/2023 ActiveStart: 01-20-2023 End: 60-81-5206rfjy 4 tablets by mouth once daily, then take 3 tablets by mouth once daily, then take 2 tablets bymouth once daily, then take 1 tablet by mouth once daily at breakfastpredniSONE (DELTASONE) 5 mg tablet Take 4 tablets by mouth once daily for 7 days, THEN 3 tablets once daily for 7 days, THEN 2 tablets once daily for 7 days, THEN 1 tablet once daily for 7 days. With breakfast. No other nsaids. 70 tablet 0 01/20/2023 2023 ActiveStart: 11-12-2022 End: 95-28-9799sducujYXGN (DELTASONE) 5 mg tablet Take 2 tablets by mouth once daily for 14 days, THEN 1 tablet once daily for 14 days. With breakfast. Then stop. No other nsaids.. 42 tablet 0 11/16/2022 12/13/2022ctiveStart: 08-31-2022 End: 37-94-6065fbrmmxXUEH (DELTASONE) 5 mg tablet Take 2 tablets by mouth once daily for 14 days, THEN 1 tablet once daily for 14 days. With breakfast. Then stop. No other nsaids.. 42 tablet 0 08/31/2022 09/28/2022ctiveStart: 04-28-2022 End: 95-35-5420gqqr 1 tablet by mouth once daily at breakfastpredniSONE (DELTASONE) 5 mg tablet Take 1 tablet by mouth once daily. With breakfast for 2 weeks . No other nsaids. 14 tablet 0 04/28/2022 08/31/2022 Discontinued End: 50-34-7385yqaa 1 tablet by mouth once dailypredniSONE (DELTASONE) 5 MG tablet Take 5 mg by mouth daily Tapering dose 0 ActiveComment on above:Take 1 tablet by mouth once daily. With breakfast for 2 weeks . No other nsaids.Take 2 tablets by mouth once daily for 14 days, THEN 1 tablet once daily for 14 days. With breakfast. Then stop. No other nsaids..Take 4 tablets by mouth once daily for 7 days, THEN 3 tablets once daily for 7 days, THEN 2 tabletsonce daily for 7 days, THEN 1 tablet once daily for 7 days. With breakfast. No other nsaids.Take 2 tablets by mouth once daily for 5 days.Respiratory Therapy Supplies (NEBULIZER/TUBING/MOUTHPIECE) KIT (1 source)Start: 26-09-9855Uymdkmhftaf Therapy Supplies (NEBULIZER/TUBING/MOUTHPIECE) KIT 1 kit by Does not apply route daily as needed (reactive airway disease) 1 kit 0 09/15/2020 Activerho(d) immune globulin, human 1500 unt prefilled syringe (2 sources)Human Immunoglobulin GStart: 63-94-8179047 mcg, Intramuscular, PRN, if mom negative and baby positive, Starting Wed07/12/19 at 1354, For 1dose, PostpartumStart: 05-04-2019 End: 79-56-3109odu(D) immune globulin (HYPERRHO S/D) injection 300 mcg3 ml sodium chloride 9 mg/ml injection (3 sources)Start: 37-31-027514 mL, Intravenous, EVERY 12 HOURS SCHEDULED (2 times per day), First dose on Wed07/12/19 at 2100, PostpartumStart: 07-12-2019 take 10 mL intravenous route once10 mL, Intravenous, PRN, Line Care, Starting Wed07/12/19 at 1354 After every IV line use PostpartumStart: 07-11-2019 End: 71-63-9997oibetj chloride flush 0.9 % injection 10 mL0.9 ml tocilizumab 180 mg/ml prefilled syringe (13 sources)Interleukin-6 Receptor AntagonistStart: 22-29-8580rbebsbeghwi (Actemra) injection Inject 162 mg under the skin every 14 (fourteen) days 03/31/2024 ActiveStart: 68-18-7443pitpqk 162 mg by subcutaneous injection every other weektocilizumab (ACTEMRA) 162 mg/0.9 mL subcutaneous injection Indications: Seropositive rheumatoid arthritis (HCC) Inject 162mg (1 syringe) subcutaneously every 2 weeks. 2 Each 3 03/31/2024 Activetriamcinolone acetonide 0.001 mg/mg topical ointment (20 sources)CorticosteroidStart: 29-27-5676nyxczdsqaeasa acetonide (KENALOG) 0.1 % ointment APPLY TWICE A DAY TO THE AFFECTED AREA OF THE ELBOW 10/08/2022 ActiveComment on above:APPLY TWICE A DAY TO THE AFFECTED AREA OF THE ELBOW24 hr venlafaxine 150 mg extended release oral capsule (20 sources)Serotonin and Norepinephrine Reuptake InhibitorStart: 05-03-2023 End: 29-67-2820nyyd 1 capsule by mouth once dailyvenlafaxine XR (Effexor XR) 150 MG 24 hr capsule Indications: Anxiety Take 1 capsule (150 mg) by mouth Daily 30 capsule 5 08/30/2024 ActiveStart: 10-04-2022 End: 46-22-4126nwgb 1 capsule by mouth every hourvenlafaxine ER (EFFEXOR XR) 37.5 mg 24 hr capsule Take 1 capsule by mouth every afternoon. 0 10/04/2022 05/26/2023 DiscontinuedComment on above:Take 1 capsule by mouth every afternoon. TAKE 1 CAPSULE BY MOUTH DAILY. DO NOT CRUSH OR CHEWwitch love 500 mg/ml medicated pad (1 source)Start: 92-74-2777hwjvx 1 dose topically twice dailyTopical, 2 TIMES DAILY, First dose on Wed07/12/19 at 1415 Apply to perineal area. Patient is capable and may self administer at bedside. Completed/Discontinued Medications MedicationDrug Class(es)DatesSig (Normalized)Sig (Original)acetaminophen 325 mg / butalbital 50 mg / caffeine 40 mg oral tablet (13 sources)Barbiturate, Central Nervous System Stimulant, MethylxanthineStart: 01-16-2019 End: 17-10-2163nhru 1-2 tablets by mouth every six hours as needed for headache rwunmsgnju-tzddhzlrdvduc-vdpdxgiq (FIORICET, ESGIC) 50-325-40 MG per tablet Indications: Other headache syndrome 1-2 tablets by mouth every 6 hours as needed for headache; no more than 6 tablets in 24 hours 30 tablet 1 01/16/2019 09/15/2020 Discontinued (LIST CLEANUP)albuterol sulfate HFA 108 (90 Base) MCG/ACT inhaler (8 sources)Start: 04-04-2019 End: 86-94-4629mbep 2 puff(s) by inhalation every six hours as needed for wheezingalbuterol sulfate HFA 108 (90 Base) MCG/ACT inhaler Indications: Cough Inhale 2 puffs into the lungs every 6 hours as needed for Wheezing 1 Inhaler 0 04/04/2019 07/13/2019 Discontinued (Stop Taking at Discharge)Start: 04-04-2019 take 2 puff(s) by inhalation every six hours as needed for wheezingalbuterol sulfate HFA 108 (90 Base) MCG/ACT inhaler Indications: Cough Inhale 2 puffs into the lungs every 6 hours as needed for Wheezing 1 Inhaler 0 04/04/2019 Active atomoxetine 80 mg oral capsule (16 sources)Norepinephrine Reuptake InhibitorStart: 03-23-2022 End: 65-53-2461vayb 1 capsule by mouth once daily, then take 1 capsule by mouth once dailyAtomoxetine 80 mg capsule Take 80 mg by mouth once daily. Take 80 mg by mouth once daily. 0 03/23/2022 10/22/2022 DiscontinuedComment on above:Take 80 mg by mouth once daily. Take 80 mg by mouth once daily.2 ml butorphanol tartrate 2 mg/ml injection (1 source)Opioid Agonist/AntagonistStart: 07-11-2019 End: 67-50-8210ieysagegtia (STADOL) injection 1 mgcalcium chloride 0.0014 meq/ml / potassium chloride 0.004 meq/ml / sodium chloride 0.103 meq/ml / sodium lactate 0.028 meq/ml injectable solution (1 source)Start: 07-11-2019 End: 68-26-0622hcvhbxft ringers infusiondexamethasone phosphate 10 mg/ml injectable solution (2 sources)CorticosteroidStart: 09-15-2020 End: 65-49-0686ewkrhobhvldgc (DECADRON) injection 6 mgStart: 03-15-2020 End: 58-29-7501pphs 1 tablet by mouth once daily at breakfastdexamethasone (DECADRON) 6 MG tablet Take 1 tablet by mouth daily (with breakfast) for 5 days 5 tablet 0 03/15/2020 03/20/2020 Activedoxycycline hyclate 100 mg oral capsule (2 sources)Tetracycline-class DrugStart: 09-15-2020 End: 48-71-8534ngfyrlkvgqp hyclate (VIBRAMYCIN) capsule 100 mgergocalciferol 1.25 mg oral capsule (20 sources)Provitamin D2 CompoundStart: 04-15-2022 End: 33-74-0085qwuxivjtgmbdjd 50,000 unit capsule (VITAMIN D2, DRISDOL) Indications: Vitamin D deficiency Take 1 capsule by mouth two times a week. (FOR EXAMPLE ONE CAPSULE ON WEDNESDAY AND ONE ON WEDNESDAY) FOR A TOTAL OF 8 WEEKS, WITH A MEAL 8 capsule 1 04/16/2022 01/20/2023 DiscontinuedStart: 11-14-2021 End: 12-96-3114guymrqbtufzfun 50,000 unit capsule (VITAMIN D2, DRISDOL) Indications: Vitamin D deficiency Take 1 capsule by mouth two times a week. (FOR EXAMPLE ONE CAPSULE ON WEDNESDAY AND ONE ON WEDNESDAY) FOR A TOTAL OF 8 WEEKS, WITH A MEAL 8 capsule 1 11/14/2021 01/05/2022 Discontinued (Discontinued by Patient) Start: 08-07-2021 End: 39-47-9584hraoxqfafyxkfi 50,000 unit capsule (VITAMIN D2, DRISDOL) Indications: Vitamin D deficiency Take 1 capsule by mouth two times a week. (FOR EXAMPLE ONE CAPSULE ON WEDNESDAY AND ONE ON WEDNESDAY) FOR A TOTAL OF 8 WEEKS, WITH A MEAL 16 capsule 0 08/07/2021 10/29/2021 DiscontinuedStart: 06-16-2021 End: 90-67-1255espnoamtvnuurl 50,000 unit capsule (VITAMIN D2, DRISDOL) Indications: Vitamin D deficiency Take 1 capsule by mouth two times a week. (FOR EXAMPLE ONE CAPSULE ON WEDNESDAY AND ONE ON WEDNESDAY) FOR A TOTAL OF 6 WEEKS, WITH A MEAL 12 capsule 0 06/16/2021 07/23/2021 Discontinued (Discontinued by Patient)Comment on above:Take 1 capsule by mouth two times a week. (FOR EXAMPLE ONE CAPSULE ON WEDNESDAY AND ONE ON WEDNESDAY) FOR A TOTAL OF 6 WEEKS, WITH A MEAL Take 1 capsule by mouth two times a week. (FOR EXAMPLE ONE CAPSULE ON WEDNESDAY AND ONE ON WEDNESDAY) FOR A TOTAL OF 8 WEEKS, WITH A MEALleflunomide 10 mg oral tablet (20 sources)Antirheumatic AgentStart: 07-15-2022 End: 76-16-0412bcww 1 tablet by mouth once dailyleflunomide (Arava) 10 MG tablet Take 10 mg by mouth Daily 05/25/2023 01/25/2024 Discontinued (Therapy completed)Start: 10-29-2021 End: 41-54-2830zjjq 1 tablet by mouth once dailyleflunomide (ARAVA) 10 mg tablet Indications: Seropositive rheumatoid arthritis (HCC) TAKE 1 TABLETBY MOUTH EVERY DAY 30 tablet 3 03/09/2022 ActiveComment on above:Take 1 tablet by mouth once daily.TAKE 1 TABLET BY MOUTH EVERY DAYmisoprostol (CYTOTEC) pre-split tablet TABS 25 mcg (1 source)Start: 07-11-2019 End: 24-59-4084buzcoubhwhm (CYTOTEC) pre-split tablet TABS 25 mcg1 ml oxytocin 10 unt/ml injection (1 source)OxytocicStart: 07-12-2019 End: 23-12-5878oonnomjn (PITOCIN) injection 10 UnitsStart: 07-12-2019 End: 67-05-2975mzdarhpb (PITOCIN) injection 10 Unitsoxytocin (PITOCIN) 30 Units in sodium chloride 0.9 % 500 mL infusion (2 sources)Start: 07-12-2019 End: 43-26-5351wawdurti (PITOCIN) 30 Units in sodium chloride 0.9 % 500 mL infusionStart: 07-11-2019 End: 40-28-8189klxnxocv (PITOCIN) 30 Units in sodium chloride 0.9 % 500 mL infusionPARoxetine hydrochloride 30 mg oral tablet (16 sources)Serotonin Reuptake InhibitorStart: 03-23-2022 End: 15-12-3675smfq 1 tablet by mouth once daily, then take 1 tablet by mouth once dailyPARoxetine (PAXIL) 30 mg tablet Take 30 mg by mouth once daily. Take 30 mg by mouth once daily. 0 03/23/2022 10/22/2022 DiscontinuedComment on above: Take 30 mg by mouth once daily. Take 30 mg by mouth once daily. MV-Min-Fe Fum-FA-DHA ( 1 PO) (15 sources) End: 53-85-8608Wiyylgtg MV-Min-Fe Fum-FA-DHA ( 1 PO) Take by mouth 0 09/15/2020 Discontinued (LIST CLEANUP) MV-Min-Fe Fum-FA-DHA ( 1 PO) Take by mouth 0 Active Problems Active Problems Problem ClassificationProblemDateDocumented DateEpisodic/Chronic Administrative/social admission (20 sources)Drug therapy finding; Translations: [Other specified counseling] EpisodicAnxiety disorders (20 sources)Anxiety; Translations: [Anxiety disorder, unspecified]Onset: 273753-11-1662KuwdgrdGqijcbddp-pcnxzpl, conduct, and disruptive behavior disorders (20 sources)Attention deficit hyperactivity disorder, combined type; Translations: [Attention-deficit hyperactivity disorder, combined type]Onset: 804091-56-9233BcwtuacUtlabysm of white blood cells (20 sources)Neutropenia; Translations: [Neutropenia, unspecified]Onset: 531778-69-6522ZtdhllyZnnvcmsmcalw complicating ; childbirth and the puerperium (14 sources)Hypertension complicating , childbirth and the puerperium; Translations: [Hypertension complicating ]Onset: ChronicHypertension complicating ; childbirth and the puerperium (1 source)Hypertension complicating ; Translations: [Hypertension affecting in first trimester]Onset: Mood disorders (20 sources)Mild depression; Translations: [Mild depression]Onset: 05-03-2023 89-99-3731JiuhqgwDomgccr (1 source)Mycosis; Translations: [Yeast infection]EpisodicNutritional deficiencies (20 sources)Vitamin D deficiency; Translations: [Vitamin D deficiency, unspecified]Onset: 393151-17-2259JkqfscjOpetv aftercare (12 sources)Patient encounter status; Translations: [Encounter for therapeutic drug level monitoring]EpisodicOther aftercare (2 sources)Taking high risk medication; Translations: [Other penitentiary (current) drug therapy]EpisodicOther connective tissue disease (5 sources)Synovitis; Translations: [Synovitis and tenosynovitis, unspecified] 08-26-3045KirfvaafVeyyp connective tissue disease (1 source)Pain in right foot; Translations: [Pain in right foot]01-20-2023 EpisodicOther ear and sense organ disorders (20 sources)Hearing loss in left ear; Translations: [Unspecified hearing loss, left ear]Onset: 045101-30-0912OfakqrfQmsjw inflammatory condition of skin (20 sources)Psoriasis; Translations: [Psoriasis, unspecified]Onset: 03-11-2023 89-71-3900VjudnhzTuieo nervous system disorders (20 sources)Carpal tunnel syndrome; Translations: [Carpal tunnel syndrome, unspecified upper limb]Onset: 991723-34-7253TfixiveNcaxs nervous system disorders (5 sources)Median nerve neuritis; Translations: [Other lesions of median nerve, left upper limb]Onset: 004923-94-6789HhoveqpHiepa nervous system disorders (1 source)Carpal tunnel syndrome of right wrist; Translations: [Carpal tunnel syndrome of right wrist]Other nutritional; endocrine; and metabolic disorders (2 sources)Body mass index (BMI) 25.0-25.9, adultOnset: EpisodicOther and delivery including normal (10 sources)Normal ; Translations: [Term ]Onset: 07-11-2019 Resolved: 319227-21-7855AsbksnsjUmnpl screening for suspected conditions (not mental disorders or infectious disease) (20 sources)Other specified abnormal findings of blood chemistry; Translations: [Anti-cyclic citrullinated peptide antibody positive]Onset: EpisodicOther skin disorders (3 sources)Mass of skin; Translations: [Localized swelling, mass and lump, unspecified]55-72-2556KpqwvvpxUrotccpqf; thrombophlebitis and thromboembolism (1 source)Thrombophlebitis of superficial vein of left upper limb; Translations: [Superficial thrombophlebitis of left upper extremity]Pneumonia (except that caused by tuberculosis or sexually transmitted disease) (1 source)Infective pneumonia; Translations: [Pneumonia, unspecified organism] EpisodicResidual codes; unclassified (1 source)Gestation period, 29 weeks; Translations: [29 weeks gestation of ]EpisodicResidual codes; unclassified (2 sources)History of clinical finding in subject; Translations: [Patient's noncompliance with other medical treatment and regimen]EpisodicResidual codes; unclassified (1 source)Gestation period, 38 weeks; Translations: [38 weeks gestation of ]Rheumatoid arthritis and related disease (20 sources)Seropositive rheumatoid arthritis; Translations: [Rheumatoid arthritis with rheumatoid factor, unspecified]Onset: 485067-82-0536Uftbfap Substance-related disorders (20 sources)Nicotine dependence; Translations: [History of intravenous drug abuse]Onset: 302004-32-9643KocnjjmQgwukrfpp-jgodixp disorders (12 sources)Other psychoactive substance abuse, in remission; Translations: [History of intravenous drug abuse]Onset: 348297-31-2917Ouisloed lupus erythematosus and connective tissue disorders (1 source)Dermatomyositis; Translations: [Dermatopolymyositis, unspecified, organ involvement unspecified]ChronicUnclassified (2 sources)Patient encounter status; Translations: [Screening for cystic fibrosis]Unclassified (1 source)Cancer cervix screening status; Translations: [Screening for cervical cancer]Unclassified (1 source)History of intravenous drug abuseOnset: Unclassified (1 source)CONTACT W/AND (SUSP) EXPOS COVID-19; Translations: [CONTACT W/AND (SUSP) EXPOS COVID-19]Onset: 94-49-2009Ojharolwqsrc (2 sources)COUGH, UNSPECIFIED; Translations: [COUGH, UNSPECIFIED]Onset: 08-18-2021 Past or Other Problems Problem ClassificationProblemDateDocumented DateEpisodic/ChronicAbdominal pain (1 source)Right upper quadrant painEpisodicAttention-deficit, conduct, and disruptive behavior disorders (20 sources)Adult attention deficit hyperactivity disorder ; Translations: [Attention-deficit hyperactivity disorder, unspecified type]Onset: 01-25-2023 Resolved: 052675-95-2269DxvrpuxLwwgbmgnrozzu and procreative management (5 sources)Encounter for sterilization; Translations: [ENCOUNTER FOR STERILIZATION]Onset: 24-49-6732KysxptxrE Codes: Struck by; against (1 source)Striking against or struck by other objects, initial encounter; Translations: [STRIKING AGNST/STRUCK OTH OBJ INIT]Onset: 88-99-5987Vxdrdajl Hemorrhage during ; abruptio placenta; placenta previa (15 sources)Threatened miscarriage; Translations: [Threatened ]Onset: 238889-35-6307OpdydksdAvntqpcpmpnvi and screening for infectious disease (20 sources)Contact with or exposure to other viral diseases; Translations: [Anti-cyclic citrullinated peptide antibody positive]Onset: EpisodicNausea and vomiting (20 sources)Nausea; Translations: [Nausea]Onset: 678377-79-7381Okgalpqy Other aftercare (1 source)Other adjunct faculty for medical terminology (current) drug therapy; Translations: [OTH ASSISTED CURRENT DRUG THERAPY]Onset: 55-90-1716ShnvmkepQphqm connective tissue disease (3 sources)Pain in left foot; Translations: [Pain in left foot]Onset: 10-07-2021 EpisodicOther connective tissue disease (2 sources)Pain in left foot; Translations: [PAIN IN LEFT FOOT]Onset: 10-08-2021 EpisodicOther lower respiratory disease (20 sources)Wheezing; Translations: [Wheezing]Onset: EpisodicOther non-traumatic joint disorders (14 sources)Shoulder pain; Translations: [Pain in left shoulder]Onset: 201188-61-8017HklrrvnvAkqou non-traumatic joint disorders (3 sources)Pain in left knee; Translations: [PAIN IN LEFT KNEE]Onset: 11-03-2021 EpisodicOther nutritional; endocrine; and metabolic disorders (12 sources)Autoantibody level - finding; Translations: [Cyclic citrullinated peptide (CCP) antibody positive]Onset: 752942-44-1731UsubxtrjZhzrr nutritional; endocrine; and metabolic disorders (20 sources)Overweight in adulthood with body mass index of 25 or more but less than 30; Translations: [Body mass index (BMI) 29.0-29.9, adult]Onset: 03-11-2023 00-54-0179FdoxkrgxBqapx upper respiratory infections (20 sources)Nasopharyngitis; Translations: [Acute upper respiratory infection, unspecified]Onset: 08-18-2021 Resolved: 024838-51-7942NyctyczqRgrjbtyo codes; unclassified (20 sources)Tobacco user; Translations: [Tobacco use]Onset: 05-03-2023 Resolved: 354800-20-4205BleihzfbUuqmzvxubqq injury; contusion (1 source)Contusion of left foot, initial encounter; Translations: [CONTUSION LEFT FOOT INITIAL ENC]Onset: 75-13-2031GguxqilbMynjztlpgmec (1 source)COUGH, UNSPECIFIED; Translations: [COUGH, UNSPECIFIED]Onset: 12-68-6495Uatptawxagcc (1 source)dl (chief complaint)Onset: 59-20-2908Nebdnvomqgqe (1 source)rct (chief complaint)Onset: 30-23-1811Meuzl infection (20 sources)Human papilloma virus infection; Translations: [Papillomavirus as the cause of diseases classified elsewhere]Onset: 284313-30-0791Jjvcecdq Results Test NameValueInterpretationReference RangeFacilityCNPNon 09-32-1248EUJF Telephone ([employer]UL[employer]) ANY LUDWIG ([id number]) 1985 F Date Time Provider Department 05/10/24 CRAIG WADE During your visit today, we recorded the following information about you: Prema Santiago 05/10/2024 4:05 PM Signed Any is calling Craig Wade MD today to request her lab orders be faxed over to [facility] at Patient has been identified by name and birthdate. Duration of symptoms: N/A Person calling: self Call patient at: at home [phone] (home) [phone] (cell) Was an appointment scheduled: No Closing statement: Results or non-symptom based questions: Thank you for calling [facility], your call will be returned within the next business day. Craig Marmolejo MD 05/10/2024 4:27 PM Signed Labs were ordered in 03/2024. Thank you Shaheen Byrd MA 05/11/2024 7:12 AM Addendum fax provided is [facility] barb fax number, call to [facility] for lab fax([phone]) and orders faxed as requested. Allergies As of Date: 05/10/2024 Noted Allergy Reaction AVSOLA (INFLIXIMAB-AXXQ) 10/22/2022 10 - Anaphylaxis Comments: Adverse reaction, chest tightness, shortness of breath and trouble breathing Date Reviewed: 03/31/2024 Reviewed by: Luz Melgoza MA - Fully Assessed Reason for Visit: Patient Request [[id number]] Prescriptions as of 05/11/2024 - VYVANSE 50 mg capsule TAKE 1 CAPSULE BY MOUTH IN THE MORNING. DO NOT START BEFORE MARCH 25, 2024. - gabapentin (NEURONTIN) 600 mg tablet TAKE 1 TABLET BY MOUTH 3 TIMES A DAY FOR ANXIETY - tocilizumab (ACTEMRA) 162 mg/0.9 mL subcutaneous injection Inject 162mg (1 syringe) subcutaneously every 2 weeks. - buprenorphine HCl/naloxone HCl (BUPRENORPHINE-NALOXONE BUCCAL) Buprenorphine-Naloxone Active [...] 12/30/2017 Encounter Status:Closed by SHAHEEN BYRD on 05/11/24[facility] 22-62-8914DEOXAsqvuo Visit (MARK) ANY LUDWIG ([id number]) 1985 F Date Time Provider Department 03/31/24 1:40 PM CRAIG WADE During your visit today, we recorded the following information about you: Pulse Blood pressure Weight Height 77/minute 115/70 73.7 kg 1.6 m Craig Wade MD 03/31/2024 3:23 PM Signed [facility] Date of Service: 03/31/2024 Patient: Any Martinez Oziel Medical Record: [id number] Primary Care Physician: Tino Blake MD, MD [...] in 2012 by primary care physician in [place] however had not seen tunnel worker until 2017. She had multiple joint swelling with elbow [...] to low G6PD Methotrexate prior to seeing tunnel worker in 2017 did not help Actemra infusion [...] Current Medications Current Outp (more content not included)...[facility]Ohio[facility] TOMOSYNTHESIS SCREENING BIon 94-07-7392[address] [address] Mammography Report Signed Patient: ANY LUDWIG MR#: [id number] : 1985 Acct:[id number] Age/Sex: 39 / F ADM Date: 03/23/24 Loc: MAMMO Attending Dr: Niya Santiago NP Ordering Physician: Niya Santiago NP Results: Date of Service: 03/23/24 Follow Up: Procedure(s): MM tomosynthesis screening BI Accession Number(s): [id number] cc: Niya Santiago NP Patient Name: ANY LUDWIG MR#: [id number] : 1985 Exam Date: 03/23/2024 Ordering Doctor: ANTHONY Santiago CNP RADIOLOGY REPORT PROCEDURE: MM TOMOSYNTHESIS SCREENING BI COMPARISON: None. INDICATIONS: Screening Calculator Name NCI Breast Cancer Risk Assessment Tool 5 Year Breast Cancer Risk 0.40% Lifetime Breast Cancer Risk 7.30% Personal Breast Cancer No Personal Ovarian Cancer No Treatments None Family Cancers None LOCATION: The [facility] BREAST COMPOSITION: The breasts are heterogeneously dense,which [...] Signed By: 03/23/24 1626 DD/ 1624 TD/TT: Coding Tech:TBHRadiology, Radiologist, - 03/23/2024 The [place] [id number] Mammography Report Signed Patient: ANY LUDWIG MR#: [id number] : 1985 Acct:[id number] Age/Sex: 39 / F ADM Date: 03/23/24 Loc: MAMMO Attending Dr: Niya Santiago NP Ordering Physician: Niya Santiago NP Results: Date of Service: 03/23/24 Follow Up: Procedure(s): MM tomosynthesis screening BI Accession Number(s): [id number] cc: Niya Santiago NP Patient Name: ANY LUDWIG MR#: [id number] : 1985 Exam Date: 03/23/2024 Ordering Doctor: ANTHONY Santiago CNP RADIOLOGY REPORT PROCEDURE: MM TOMOSYNTHESIS SCREENING BI COMPARISON: None. INDICATIONS: Screening Calculator Name NCI Breast Cancer Risk Assessment Tool 5 Year Breast Cancer Risk 0.40% Lifetime Breast Cancer Risk 7.30% Personal Breast Cancer No Personal Ovarian Cancer No Treatments None Family Cancers None LOCATION: [facility] BREAST COMPOSITION: The breasts are heterogeneously dense,which [...] Signed By: 03/23/24 1626 DD/ 1624 TD/TT: Coding Tech: [facility] HealthcareRadiology Study observation (narrative)[facility] TOMOSYNTHESIS SCREENING BIOrdered By: Radiologist Radiology on 77-50-1601NR[facility] Work Phone: IGP,APTIMA HPV,AGE GDLNon 59-28-9049QVP GDLN ACOG TESTINGNote.[facility] HealthcareComment on above:TESTS RESULT FLAG UNITS REF RANGE LAB Clinician Provided Cytology Information Source.............Cervix;Endocervix No. of containers..01 ThinPrep Vial Age Pauline PARKER Valentine... FLAG LEGEND: L-Low Normal,H-High Normal,LL-Alert Low,HH-Alert High <-Panic Low,>-Panic High,A-Abnormal,AA-Critical Abnormal Performed at: 01 =[address] [address] Francisca Stuart MD, HPV APTIMANegativeNegativeNOMS HealthcareComment on above:This nucleic acid amplification test detects fourteen high- risk HPV types (16,18,31,33,35,39,45,51,52,56,58,59,66,68) without differentiation. Performed at: =[address] [id number] Escapement Matcher: Francisca Stuart MD, Phone: [phone] Performed at: [facility] Cyto Histo [address] [place] [id number] Escapement Matcher: Farshad Cruz MD, Phone: [phone] IGP, APTIMA HPV, RFX 16/18,45Note.NOMS HealthcareComment on above:TESTS RESULT FLAG UNITS REF RANGE LAB DIAGNOSIS: 02 NEGATIVE FOR INTRAEPITHELIAL LESION OR MALIGNANCY. THIS SPECIMEN WAS RESCREENED PART OF OUR JUNIOR SYSTEMS ANALYST PROGRAM. Specimen adequacy: 02 Satisfactory for evaluation. No endocervical component is identified. Performed by: 02 Aicha Hess, Campus Safety Officer ([facility]) QC reviewed by: 02 Joshua Ornelas, Campus Safety Officer ([facility]) . 02 Note: Note 03 The [...] High,A-Abnormal,AA-Critical Abnormal Performed at: 02 KWCYT [facility] Cyto Histo [address] [place] [phone] Farshad Cruz MD, 03 WB [facility] [address] [address] Francisca Stuart MD, BROOM-ALONE CERVIX ENDOCERVIX CLINISYNCNOMetropolitan Saint Louis Psychiatric CenterPNon 63-68-9545WZNDGckljqqnt ([place]) ANY LUDWIG ([id number]) 1985 F Date Time Provider Department 08/16/23 [...] Date Reviewed: 06/07/2023 Reviewed by: Fariba Hill, TRANSCRIPTION.FOOD SAMPLER - Fully Assessed Prescriptions as of 08/17/2023 - buprenorphine HCl/naloxone HCl (BUPRENORPHINE-NALOXONE BUCCAL) Buprenorphine-Naloxone Active [...] 12/30/2017 Encounter Status:Closed by DEVI WAGNER on 08/17/23[facility] 48-28-4892QFPWXpgrzj TextRiverside Methodist Hospital 33-95-4590BNWBMwrigfbpc ([place]) ANY LUDWIG ([id number]) 1985 F Date Time Provider Department 06/25/23 FARIBA HILL During your visit today, we recorded the following information about you: Yessy Galarza 06/25/2023 10:16 AM Signed Called and LMOM for patient to call the office back so we can get her rescheduled from her appointment and Infusion on 06/23/2023 that she cancel. Please warm transfer to [facility] Allergies As of Date: 06/25/2023 Noted Allergy Reaction AVSOLA (INFLIXIMAB-AXXQ) 10/22/2022 10 - Anaphylaxis Comments: Adverse reaction, chest tightness, shortness of breath and trouble breathing Date Reviewed: 06/07/2023 Reviewed by: Fariba Hill APRN.FOOD SAMPLER - Fully Assessed Prescriptions as of 06/25/2023 - buprenorphine HCl/naloxone HCl (BUPRENORPHINE-NALOXONE BUCCAL) Buprenorphine-Naloxone Active [...] 12/30/2017 Encounter Status:Closed by YESSY GALARZA on 06/25/23[facility] CampusKylah 90-42-6780RSMLEudhfbzmy ([place]) ANY LUDWIG ([id number]) 1985 F Date Time Provider Department 05/28/23 [...] as of 05/28/2023 - buprenorphine HCl/naloxone HCl (BUPRENORPHINE-NALOXONE BUCCAL) Buprenorphine-Naloxone Active [...] 12/30/2017 Encounter Status:Closed by KORIN PUGA on 05/28/23NormalCGreene Memorial Hospital25([place])D3 SerPl-mCncon 065607-uvyapqpkputcit D3 [Mass/Vol]29.2 ng/mLLow31.0-80.0[facility] on above:Order Comment: Specimen Type: BLOOD SPECIMENOrdering Facility: [facility] Address:[address] [place], [place] [address]Performed By: #### 1988-04 ####[facility] LABIA [id number] [place] [address] [place] AMERICAALT SerPl-cCncon 37-36-0425RCQ [Catalytic activity/Vol]17 U/LNormal7-38[facility] on above:Order Comment: Specimen Type: BLOOD SPECIMENOrdering Facility: [facility] Address:[address] [place], [place] [address]Performed By: #### 1742-6, 1919-09, CRET1, 1987-06 ####[facility] [id number] [place] [address] [place] ALT/SGPTon 03-14-9413OPX [Catalytic activity/Vol]17 U/L7 - 38 U/LCMercy Health West HospitalAST SerPl-cCncon 78-26-2609KOL [Catalytic activity/Vol]21 U/YSolivu46-36 [facility] on above:Order Comment: Specimen Type: BLOOD SPECIMENOrdering Facility: [facility] Address:[address] [place], [place] [address]Performed By: #### 1742-6, 1920-8, CRET1, 1987- ####[facility] LABCLIA [id number] [facility] Q83QGHIOOMHJCHRISTOPHER VIL[place] [id number] [place] AMERICAAST/SGOT BLDon 74-45-0845HKX [Catalytic activity/Vol]21 U/L13 - 35 U/LCleveland [facility]-REACTIVE PROTEIN (CRP)on 54-31-9712HIF [Mass/Vol]<0.9 mg/dLGrand Lake Joint Township District Memorial Hospital W Auto Differential panel (Bld)on 35-40-1739Fnnqhdqiq (Bld) [#/Vol]0.04 10*3/uL<0.11 k/uLCleveland Clinic Fairview HospitalBasophils/100 WBC (Bld)0.7 %[facility] HospitalDifferential cell count method Nom (Bld)AutoCleveland ClinicEosinophils (Bld) [#/Vol]0.43 10*3/uL<0.46 k/uLCleveland Clinic Fairview HospitalEosinophils/100 WBC (Bld)7.3 %[facility] Erythrocyte distribution width (RBC) [Ratio]14.0 %11.5 - 15.0 %[facility] Hematocrit (Bld) [Volume fraction]34.2 %Low36.0 - 46.0 %[facility] Hemoglobin (Bld) [Mass/Vol]11.2 g/dLLow11.5 - 15.5 g/dLCleveland Clinic Fairview HospitalImflture granulocytes (Bld) [#/Vol]<0.10 k/uLCleveland Clinic Fairview HospitalImflture granulocytes/100 WBC (Bld)0.2 %[facility] HospitalLymphocytes (Bld) [#/Vol]3.83 10*3/uL1.00 - 4.00 k/uLCleveland Clinic Fairview HospitalLymphocytes/100 WBC (Bld)65.2 %Kindred HealthcareH (RBC) [Entitic mass]27.3 pg26.0 - 34.0 pgCleveland Cuyuna Regional Medical CenterHC (RBC) [Mass/Vol]32.7 g/dL30.5 - 36.0 g/dLKindred HealthcareV (RBC) [Entitic vol]83.4 fL80.0 - 100.0 fLCleveland ClinicMonocytes (Bld) [#/Vol]0.36 10*3/uL<0.87 k/[facility] Monocytes/100 WBC (Bld)6.1 %[facility] HospitalNeutrophils (Bld) [#/Vol]1.20 10*3/uLLow1.45 - 7.50 k/[facility] HospitalNeutrophils/100 WBC (Bld)20.5 % [facility] HospitalNucleated RBC (Bld) [#/Vol]<0.01 k/[facility] HospitalNucleated RBC/100 WBC (Bld) [Ratio]0.0 /100 WBCFarmingville ClinicPlatelet mean volume (Bld) [Entitic vol]11.3 fL9.0 - 12.7 fLCleveland ClinicPlatelets (Bld) [#/Vol]172 10*3/uL150 - 400 k/[facility] HospitalRBC (Bld) [#/Vol]4.10 10*6/uL3.90 - 5.20 m/[facility] HospitalWBC (Bld) [#/Vol]5.87 10*3/uL3.70 - 11.00 k/[facility] HospitalBasophils (Bld) [#/Vol]0.04 10*3/uLNormal<0.11CGreene Memorial Hospital Comment on above:Order Comment: Specimen Type: BLOOD SPECIMENOrdering Facility: [facility] Address:[address] [place] [address] Performed By: #### 47544-7, 4537-7 ####[facility] LABCLIA [id number] [place] [address] [place] Basophils/100 WBC (Bld)0.7 %NormalSelect Medical Specialty Hospital - Boardman, IncComment on above: Order Comment: Specimen Type: BLOOD SPECIMENOrdering Facility: [facility] Address:[address] [place], [place] [address]Performed By: #### 00030- 8, 4537-7 ####[facility] LABCLIA [id number] [place] [address] [place] AMERICADifferential cell count method Nom (Bld)AutoNormalClevelMercy Health on above:Order Comment: Specimen Type: BLOOD SPECIMENOrdering Facility: [facility] Address:[address] [place], [place] [address]Performed By: #### 28879- 8, 4536-7 ####[facility] LABCLIA [id number] [place] [address] [place] AMERICAEosinophils (Bld) [#/Vol]0.43 10*3/uLNormal<0.46[facility] on above:Order Comment: Specimen Type: BLOOD SPECIMENOrdering Facility: [facility] Address:[address] [place], [place] [address]Performed By: #### 18161- 8, 7 ####[facility] LABCLIA [id number] [facility] [place] [place] [address] [place] AMERICAEosinophils/100 WBC (Bld)7.3 %NormalEast [facility] City Hospital on above:Order Comment: Specimen Type: BLOOD SPECIMENOrdering Facility: [facility] Address:[address] [place], [place] [address]Performed By: #### 81919-6, 7 ####[facility] LABCLIA [id number] [place] [address] [place] AMERICAErythrocyte distribution width (RBC) [Ratio]14.0 %Bliagn89.5-15.0[facility] on above: Order Comment: Specimen Type: BLOOD SPECIMENOrdering Facility: [facility] Address:[address] [place], [place] [address]Performed By: #### 29476- 8, 7 ####[facility] LABCLIA [id number] [place] [address] [place] AMERICAHematocrit (Bld) [Volume fraction]34.2 %Low36.0-46.0[facility] on above:Order Comment: Specimen Type: BLOOD SPECIMENOrdering Facility: [facility] Address:[address] [place], [place] [address]Performed By: #### 40427- 8, 4537-7 ####[facility] LABCLIA [id number] [place] [address] [place] AMERICAHemoglobin (Bld) [Mass/Vol]11.2 g/dLLow11.5-15.5COhioHealth Berger Hospital on above:Order Comment: Specimen Type: BLOOD SPECIMENOrdering Facility: [facility] Address:[address] [place], [place] [address]Performed By: #### 09207- 8, 4537-7 ####[facility] LABCLIA [id number] [place] [address] [place] AMERICAImmature granulocytes (Bld) [#/Vol]10*3/uLNormal<0.10[facility] on above:Order Comment: Specimen Type: BLOOD SPECIMENOrdering Facility: [facility] Address:[address] [place], [place] [address]Performed By: #### 47355- 8, 4537-7 ####[facility] LABCLIA [id number] [place] [address] [place] AMERICAImmature granulocytes/100 WBC (Bld)0.2 %NormalEast [facility] City Hospital on above: Order Comment: Specimen Type: BLOOD SPECIMENOrdering Facility: [facility] Address:[address] [place], [place] [address]Performed By: #### 53432- 8, 4537-7 ####[facility] LABCLIA [id number] [place] [address] [place] AMERICALymphocytes (Bld) [#/Vol]3.83 10*3/uLNormal1.00-4.00[facility] on above: Order Comment: Specimen Type: BLOOD SPECIMENOrdering Facility: [facility] Address:[address] [place], [place] [address]Performed By: #### 24310- 8, 4536-7 ####[facility] LABCLIA [id number] [address]ETLymphocytes/100 WBC (Bld)65.2 %NormalEast [facility] City Hospital on above:Order Comment: Specimen Type: BLOOD SPECIMENOrdering Facility: [facility] Address:[address] [place], [place] [address]Performed By: #### 45121-8, 4536-7 ####[facility] LABIA [id number] [address] (RBC) [Entitic mass]27.3 pg Tmectd31.0-34.0Gal[facility] Hospitalment on above:Order Comment: Specimen Type: BLOOD SPECIMENOrdering Facility: [facility] Address:[address] [place], [place] [address]Performed By: #### 09874-7, 4536-7 ####[facility] LABIA [id number] [address] (RBC) [Mass/Vol]32.7 g/dL Etwwif94.5-36.0[facility] on above:Order Comment: Specimen Type: BLOOD SPECIMENOrdering Facility: [facility] Address:[address] [place], [place] [address]Performed By: #### 54961-9, 4536-7 ####[facility] LABIA [id number] [address] (RBC) [Entitic vol]83.4 fL Icklle21.0-100.0[facility] on above:Order Comment: Specimen Type: BLOOD SPECIMENOrdering Facility: [facility] Address:[address] [place], [place] [address]Performed By: #### 77886-0, 7 ####[facility] LABCLIA [id number] [place] [address] [place] AMERICAMonocytes (Bld) [#/Vol]0.36 10*3/uLNormal<0.87[facility] on above:Order Comment: Specimen Type: BLOOD SPECIMENOrdering Facility: [facility] Address:[address] [place], [place] [address]Performed By: #### 88348-2, 7 ####[facility] LABCLIA [id number] [place] [address] [place] AMERICAMonocytes/100 WBC (Bld)6.1 % NormalSelect Medical Specialty Hospital [facility], IncComment on above:Order Comment: Specimen Type: BLOOD SPECIMENOrdering Facility: [facility] Address:[address] [place], [place] [address]Performed By: #### 71432-1, 7 ####[facility] LABIA [id number] [place] [address] [place] AMERICANeutrophils (Bld) [#/Vol]1.20 10*3/uLLow1.45-7.50 [facility] on above:Order Comment: Specimen Type: BLOOD SPECIMENOrdering Facility: [facility] Address:[address] [place], [place] [address]Performed By: #### 93378-7, 4536-08 ####[facility] LABCLIA [id number] [place] [address] [place] AMERICANeutrophils/100 WBC (Bld)20.5 %NormalSelect Medical Specialty Hospital [facility], Inc Comment on above:Order Comment: Specimen Type: BLOOD SPECIMENOrdering Facility: [facility] Address:[address] [place] [address] Performed By: #### 08239-2, 7 ####[facility] LABCLIA [id number] [place] [address] [place] Nucleated RBC (Bld) [#/Vol]10*3/uLNormal<0.01[facility] on above:Order Comment: Specimen Type: BLOOD SPECIMENOrdering Facility: [facility] Address:[address] [place] [address] Performed By: #### 83218-7, 4537-7 ####[facility] LABIA [id number] [place] [address] [place] Nucleated RBC/100 WBC (Bld) [Ratio]0.0 /100 WBCNormalCGreene Memorial Hospital Comment on above:Order Comment: Specimen Type: BLOOD SPECIMENOrdering Facility: [facility] Address:[address] [place] [address] Performed By: #### 51575-6, 4537-7 ####[facility] LABIA [id number] [place] [address] [place] Platelet mean volume (Bld) [Entitic vol]11.3 fLNormal9.0-12.7COhioHealth Berger Hospital on above:Order Comment: Specimen Type: BLOOD SPECIMENOrdering Facility: [facility] Address:[address] [place], [place] [address]Performed By: #### 32680-3, 7-7 ####[facility] LABIA [id number] [place] [address] [place] Platelets (Bld) [#/Vol]172 10*3/pXZenipv277-320YcmotsfytEast Liverpool City Hospital on above:Order Comment: Specimen Type: BLOOD SPECIMENOrdering Facility: [facility] Address:[address] [place] [address] Performed By: #### 84514-8, 4537-7 ####[facility] LABCLIA [id number] [place] [address] [place] RBC (Bld) [#/Vol]4.10 10*6/uLNormal3.90-5.20[facility] on above:Order Comment: Specimen Type: BLOOD SPECIMENOrdering Facility: [facility] Address:[address] [place] [address] [place], [place] [address]Performed By: #### 40302-5, 4537-7 ####[facility] LABCLIA [id number] [place] [address] [place] AMERICAWBC (Bld) [#/Vol]5.87 10*3/uLNormal3.70-11.00[facility] on above:Order Comment: Specimen Type: BLOOD SPECIMENOrdering Facility: [facility] Address:[address] [place] [address] [place], [place] [address]Performed By: #### 51445-5, 4537-7 ####[facility] LABCLIA [id number] [address] OF [facility] MEDICAL CENTERCNOVon 55-31-4947EQJGUlfvkh Visit (EXPLOR) ANY LUDWIG ([id number]) 1985 F Date Time Provider Department 05/26/23 1:45 PM SILVIA COOPER EXPLOR During your visit today, we recorded the following information about you: Temperature Pulse Blood pressure 97.5 degrees 65/minute 107/66 Silvia Cooper, TRANSCRIPTION.FOOD SAMPLER 05/26/2023 2:15 PM Signed This note was created using NoteWriter. Subjective Any Ludwig is a 38 year old female. This 38 year old female present sot [facility] with expiratory wheeze, was in [...] needed, only if neede (more content not included)...NormalOhioHealth Mansfield Hospitalice Visit (MARK) ANY LUDWIG ([id number]) 1985 F Date Time Provider Department 05/26/23 1:00 PM FARIBA HILL During your visit today, we recorded the following information about you: Fariba Hill, [place].FOOD SAMPLER 06/07/2023 8:14 AM Signed FOLLOW UP VISIT-in person PCP: Tino Blake MD [address] [place] [address] Ms. 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 Until she has her [...] had multiple unfortunate soci (more content not included)...Normal [facility], IncCREATININE BLDon 13-87-3455Gmxgqfqvbm [Mass/Vol]0.52 mg/dLLow0.58 - 0.96 mg/dLCleveland Clinic Fairview HospitalEstimated Glomerular Filtration Txjt559 mL/min/1.73m>=60 mL/min/1.73mCleveland ClinicCreatinine [Mass/Vol]0.52 mg/dLLow 0.58-0.96[facility] on above:Order Comment: Specimen Type: BLOOD SPECIMENOrdering Facility: [facility] Address:[address] [place], [place] [address]Performed By: #### 1742-6, 1919-09, CRE1987-06 ####[facility] LABCLIA [id number] [address] STATES OF AMERICACreatinine and Glomerular filtration rate.predicted panel (S/P/Bld)121 mL/min/1.73m???Normal>=60[facility] on above:Order Comment: Specimen Type: BLOOD SPECIMENOrdering Facility: [facility] Address:[address] [place], [place] [address]Result Comment: Estimated Glomerular Filtration Rate (eGFR) is calculated using the 2020 CKD-EPI creatinine equation. This equation utilizes serum creatinine, sex, and age as parameters. The creatinine assay has traceable calibration to isotope dilution-mass spectrometry. Refer to KDIGO guidelines for clinical interpretation. In patients with unstable renal function, e.g. those with acute kidney injury, the eGFR may not accurately reflect actual GFR.Performed By: #### 1742-6, 1919-09, CRET11987-06 ####[facility] LABCLIA [id number] [place] [id number] [place] AMERICACRP SerPl-mCncon 40-75-6389AML [Mass/Vol]mg/LNormal<0.9ClevelMagruder HospitalvelandComment on above:Order Comment: Specimen Type: BLOOD SPECIMENOrdering Facility: [facility] Address:[address] [place], [place] [address]Performed By: #### 1742- 6, 1920-8, CRET1, 1987- ####[facility] LABCLIA [id number] [place] [address] [place] AMERICAESR Westergren method (Bld) [Velocity]on 32-64-6889LHI (Bld) [Velocity]5 mm/h0 - 20 mm/hr Farmingville ClinicESR (Bld) [Velocity]5 mm/hNormal0-20[facility] Comment on above:Order Comment: Specimen Type: BLOOD SPECIMENOrdering Facility: [facility] Address:[address] [place] [address] Performed By: #### 39684-4, 4537-7 ####[facility] LABCLIA [id number] [address] STATES [place] VITAMIN D 25 HYDROXYon 226163-htinxpekjwaluo D3 [Mass/Vol]29.2 ng/mLLow 31.0 - 80.0 ng/mLCleveland Chippewa City Montevideo HospitalC-REACTIVE PROTEIN (CRP)on 57-33-1696YBU [Mass/Vol]0.4 mg/dL<0.9 mg/dLGrand Lake Joint Township District Memorial Hospital W Auto Differential panel (Bld) on 73-96-9395Ennlioegt (Bld) [#/Vol]0.05 10*3/uL<0.11 k/uLCleveland Clinic Fairview Hospital Basophils/100 WBC (Bld)0.6 %[facility] HospitalDifferential cell count method Nom (Bld)AutoCleveland ClinicEosinophils (Bld) [#/Vol]0.18 10*3/uL<0.46 k/uL [facility] HospitalEosinophils/100 WBC (Bld)2.3 %[facility] HospitalErythrocyte distribution width (RBC) [Ratio]13.7 %11.5 - 15.0 %[facility] HospitalHematocrit (Bld) [Volume fraction]36.5 %36.0 - 46.0 %[facility] HospitalHemoglobin (Bld) [Mass/Vol]11.7 g/dL11.5 - 15.5 g/dLCleveland Clinic Fairview HospitalImmature granulocytes (Bld) [#/Vol]0.09 10*3/uL<0.10 k/uLCleveland Clinic Fairview HospitalImmature granulocytes/100 WBC (Bld) 1.1 %[facility] HospitalLymphocytes (Bld) [#/Vol]3.92 10*3/uL1.00 - 4.00 k/uL [facility] HospitalLymphocytes/100 WBC (Bld)49.2 %Kindred HealthcareH (RBC) [Entitic mass]26.8 pg26.0 - 34.0 pgClevelRainy Lake Medical CenterHC (RBC) [Mass/Vol]32.1 g/dL30.5 - 36.0 g/dLKindred HealthcareV (RBC) [Entitic vol]83.7 fL80.0 - 100.0 fLCleveland ClinicMonocytes (Bld) [#/Vol]0.65 10*3/uL<0.87 k/uLCleveland Clinic Fairview Hospital Monocytes/100 WBC (Bld)8.2 %[facility] HospitalNeutrophils (Bld) [#/Vol]3.07 10*3/uL1.45 - 7.50 k/uLCleveland Clinic Fairview HospitalNeutrophils/100 WBC (Bld)38.6 %[facility] HospitalNucleated RBC (Bld) [#/Vol]<0.01 k/uLCleveland Clinic Fairview HospitalNucleated RBC/100 WBC (Bld) [Ratio]0.0 /100 WBCCleveland Clinic Fairview HospitalPlatelet mean volume (Bld) [Entitic vol]10.5 fL9.0 - 12.7 fLCleveland ClinicPlatelets (Bld) [#/Vol]328 10*3/uL150 - 400 k/uLCleveland Clinic Fairview HospitalRBC (Bld) [#/Vol]4.36 10*6/uL3.90 - 5.20 m/[facility] Memorial HospitalWBC (Bld) [#/Vol]7.96 10*3/uL3.70 - 11.00 k/uLCleveland Clinic Fairview Hospital Comprehensive metabolic 2000 panelon 68-24-5060Ftcyxuu [Mass/Vol]4.0 g/dL3.9 - 4.9 g/dLFarmingville ClinicALP [Catalytic activity/Vol]77 U/L34 - 123 U/LCleveland ClinicALT [Catalytic activity/Vol]66 U/LHigh7 - 38 U/LCleveland ClinicAnion gap [Moles/Vol]11 mmol/L9 - 18 mmol/LCleveland ClinicAST [Catalytic activity/Vol]54 U/LHigh13 - 35 U/LCleveland ClinicBilirubin [Mass/Vol]0.2 mg/dL0.2 - 1.3 mg/dL [facility] HospitalCalcium [Mass/Vol]9.1 mg/dL8.5 - 10.2 mg/dLC[facility] Clinic [facility] Hospital Chloride [Moles/Vol]98 mmol/L97 - 105 mmol/LCleveland ClinicCO2 [Moles/Vol]24 mmol/L22 - 30 mmol/LCleveland [facility] HospitalCreatinine [Mass/Vol]0.48 mg/dLLow0.58 - 0.96 mg/dLCleveland Clinic Fairview HospitalEstimated Glomerular Filtration Yxra645 mL/min/1.73m >=60 mL/min/1.73mCleveland [facility] HospitalGlucose [Mass/Vol]72 mg/dLLow74 - 99 mg/dL [facility] HospitalPotassium [Moles/Vol]4.4 mmol/L3.7 - 5.1 mmol/LCleveland [facility] Protein [Mass/Vol]6.7 g/dL6.3 - 8.0 g/dLUC Medical Centerodium [Moles/Vol]133 mmol/BQiw633 - 144 mmol/LCleveland [facility] HospitalUrea nitrogen [Mass/Vol]8 mg/dL7 - 21 mg/dLAvita Health System Westergren method (Bld) [Velocity]on 14-20-8713MKT (Bld) [Velocity]20 mm/h0 - 20 mm/hrMartin Memorial Hospital-REACTIVE PROTEIN (CRP)on 94-73-7503FDK [Mass/Vol]<0.9 mg/dLGrand Lake Joint Township District Memorial Hospital W Auto Differential panel (Bld)on 02-20-4154Vvxctbyji (Bld) [#/Vol]0.04 10*3/uL<0.11 k/uLCleveland Clinic Fairview Hospital Basophils/100 WBC (Bld)0.6 %[facility] HospitalDifferential cell count method Nom (Bld)AutoCleveland ClinicEosinophils (Bld) [#/Vol]0.11 10*3/uL<0.46 k/uL [facility] HospitalEosinophils/100 WBC (Bld)1.8 %[facility] HospitalErythrocyte distribution width (RBC) [Ratio]13.5 %11.5 - 15.0 %[facility] HospitalHematocrit (Bld) [Volume fraction]36.9 %36.0 - 46.0 %[facility] HospitalHemoglobin (Bld) [Mass/Vol]11.9 g/dL11.5 - 15.5 g/dLCleveland Clinic Fairview HospitalImmature granulocytes (Bld) [#/Vol]<0.10 k/uLCleveland Clinic Fairview HospitalImmature granulocytes/100 WBC (Bld)0.2 % [facility] HospitalLymphocytes (Bld) [#/Vol]3.08 10*3/uL1.00 - 4.00 k/uLCleveland Clinic Fairview HospitalLymphocytes/100 WBC (Bld)49.3 %Kindred HealthcareH (RBC) [Entitic mass] 26.7 pg26.0 - 34.0 pgClevelRainy Lake Medical CenterHC (RBC) [Mass/Vol]32.2 g/dL30.5 - 36.0 g/dLKindred HealthcareV (RBC) [Entitic vol]82.9 fL80.0 - 100.0 fLCleveland ClinicMonocytes (Bld) [#/Vol]0.50 10*3/uL<0.87 k/uLCleveland Clinic Fairview HospitalMonocytes/100 WBC (Bld)8.0 %[facility] HospitalNeutrophils (Bld) [#/Vol]2.51 10*3/uL1.45 - 7.50 k/uLCleveland Clinic Fairview HospitalNeutrophils/100 WBC (Bld)40.1 %[facility] HospitalNucleated RBC (Bld) [#/Vol]<0.01 k/uLCleveland Clinic Fairview HospitalNucleated RBC/100 WBC (Bld) [Ratio]0.0 /100 WBCCleveland Clinic Fairview HospitalPlatelet mean volume (Bld) [Entitic vol]11.5 fL9.0 - 12.7 fLCleveland ClinicPlatelets (Bld) [#/Vol]235 10*3/uL150 - 400 k/uLFarmingville ClinicRBC (Bld) [#/Vol]4.45 10*6/uL3.90 - 5.20 m/uLFarmingville ClinicWBC (Bld) [#/Vol]6.25 10*3/uL3.70 - 11.00 k/[facility] HospitalComprehensive metabolic 2000 panelon 15-40-2929Pwcynen [Mass/Vol]4.0 g/dL3.9 - 4.9 g/dLFarmingville ClinicALP [Catalytic activity/Vol]62 U/L34 - 123 U/LCleveland ClinicALT [Catalytic activity/Vol]23 U/L7 - 38 U/LCleveland ClinicAnion gap [Moles/Vol]12 mmol/L9 - 18 mmol/LCleveland ClinicAST [Catalytic activity/Vol]22 U/L13 - 35 U/LCleveland [facility] HospitalBilirubin [Mass/Vol]0.2 mg/dL0.2 - 1.3 mg/dLFarmingville ClinicCalcium [Mass/Vol]9.0 mg/dL8.5 - 10.2 mg/dLCleveland Clinic Fairview HospitalChloride [Moles/Vol]105 mmol/L97 - 105 mmol/LCleveland ClinicCO2 [Moles/Vol]20 mmol/LLow22 - 30 mmol/L [facility] HospitalCreatinine [Mass/Vol]0.52 mg/dLLow0.58 - 0.96 mg/dLCleveland Clinic Fairview HospitalEstimated Glomerular Filtration Ifde910 mL/min/1.73m>=60 mL/min/1.73m [facility] HospitalGlucose [Mass/Vol]101 mg/dMHybj22 - 99 mg/dLC[facility] Potassium [Moles/Vol]3.9 mmol/L3.7 - 5.1 mmol/LCleveland ClinicProtein [Mass/Vol]6.7 g/dL6.3 - 8.0 g/dLFarmingville ClinicSodium [Moles/Vol]137 mmol/L136 - 144 mmol/LCleveland ClinicUrea nitrogen [Mass/Vol]9 mg/dL7 - 21 mg/dLCleveland Clinic Fairview HospitalESR Westergren method (Bld) [Velocity]on 92-54-6514LIV (Bld) [Velocity]20 mm/h0 - 20 mm/hrCleveland Clinic Fairview HospitalLaboratory - Chemistry and Chemistry - challengeon 18-65-4868Eyrut [Mass/Vol]5.2 mg/dL2.5 - 6.6 mg/dLC[facility] Clinic [facility] VITAMIN D 25 HYDROXYon 64-13-209739400810-okitixtvjvmsyo D3 [Mass/Vol]46.8 ng/mL31.0 - 80.0 ng/mLCleveland Melrose Area HospitalC W Auto Differential panel (Bld)on 06-23-2022 Basophils (Bld) [#/Vol]0.07 10*3/uL<0.11 k/uLCleveland Clinic Fairview HospitalBasophils/100 WBC (Bld)1.4 %[facility] HospitalDifferential cell count method Nom (Bld)AutoCleveland ClinicEosinophils (Bld) [#/Vol]0.27 10*3/uL<0.46 k/uLC[facility] Clinic [facility] Hospital Eosinophils/100 WBC (Bld)5.3 %[facility] HospitalErythrocyte distribution width (RBC) [Ratio]12.8 %11.5 - 15.0 %[facility] HospitalHematocrit (Bld) [Volume fraction]33.5 %Low36.0 - 46.0 %[facility] HospitalHemoglobin (Bld) [Mass/Vol]11.0 g/dLLow11.5 - 15.5 g/dLCleveland Clinic Fairview HospitalImmature granulocytes (Bld) [#/Vol]0.05 10*3/uL<0.10 k/uLCleveland Clinic Fairview HospitalImmature granulocytes/100 WBC (Bld)1.0 % [facility] HospitalLymphocytes (Bld) [#/Vol]2.55 10*3/uL1.00 - 4.00 k/uLCleveland Clinic Fairview HospitalLymphocytes/100 WBC (Bld)50.2 %Kindred HealthcareH (RBC) [Entitic mass] 28.2 pg26.0 - 34.0 pgCleveland Chippewa City Montevideo HospitalMCHC (RBC) [Mass/Vol]32.8 g/dL30.5 - 36.0 g/dLKindred HealthcareV (RBC) [Entitic vol]85.9 fL80.0 - 100.0 fLCleveland ClinicMonocytes (Bld) [#/Vol]0.32 10*3/uL<0.87 k/uLFarmingville ClinicMonocytes/100 WBC (Bld)6.3 %[facility] HospitalNeutrophils (Bld) [#/Vol]1.82 10*3/uL1.45 - 7.50 k/uLFarmingville ClinicNeutrophils/100 WBC (Bld)35.8 %[facility] HospitalNucleated RBC (Bld) [#/Vol]<0.01 k/uLCleveland Clinic Fairview HospitalNucleated RBC/100 WBC (Bld) [Ratio]0.0 /100 WBCCleveland Clinic Fairview HospitalPlatelet mean volume (Bld) [Entitic vol]11.6 fL9.0 - 12.7 fLCleveland ClinicPlatelets (Bld) [#/Vol]201 10*3/uL150 - 400 k/uLCleveland Clinic Fairview HospitalRBC (Bld) [#/Vol]3.90 10*6/uL3.90 - 5.20 m/uLCleveland Clinic Fairview HospitalWBC (Bld) [#/Vol]5.08 10*3/uL3.70 - 11.00 k/uLCleveland Clinic Fairview HospitalESR Westergren method (Bld) [Velocity]on 25-75-2124CZM (Bld) [Velocity]15 mm/h0 - 20 mm/hrCleveland Clinic Fairview HospitalC- REACTIVE PROTEIN (CRP)on 24-38-8082FIS [Mass/Vol]0.6 mg/dL<0.9 mg/dLGrand Lake Joint Township District Memorial Hospital W Auto Differential panel (Bld)on 47-64-3126Dxuacmgwd (Bld) [#/Vol] 0.05 10*3/uL<0.11 k/uLCleveland Clinic Fairview HospitalBasophils/100 WBC (Bld)0.8 %[facility] HospitalDifferential cell count method Nom (Bld)AutoCleveland ClinicEosinophils (Bld) [#/Vol]0.28 10*3/uL<0.46 k/uLCleveland Clinic Fairview HospitalEosinophils/100 WBC (Bld)4.6 %[facility] HospitalErythrocyte distribution width (RBC) [Ratio]12.4 %11.5 - 15.0 % [facility] HospitalHematocrit (Bld) [Volume fraction]37.1 %36.0 - 46.0 %[facility] HospitalHemoglobin (Bld) [Mass/Vol]12.3 g/dL11.5 - 15.5 g/dLC[facility] Clinic [facility] Immature granulocytes (Bld) [#/Vol]<0.10 k/uLCleveland Clinic Fairview HospitalImmature granulocytes/100 WBC (Bld)0.3 %[facility] HospitalLymphocytes (Bld) [#/Vol]3.03 10*3/uL1.00 - 4.00 k/uLCleveland Clinic Fairview HospitalLymphocytes/100 WBC (Bld)49.7 %Kindred HealthcareH (RBC) [Entitic mass]28.7 pg26.0 - 34.0 pgClevelRainy Lake Medical CenterHC (RBC) [Mass/Vol]33.2 g/dL30.5 - 36.0 g/dLKindred HealthcareV (RBC) [Entitic vol]86.5 fL80.0 - 100.0 fLClevelMarion HospitalMonocytes (Bld) [#/Vol]0.49 10*3/uL<0.87 k/uL [facility] HospitalMonocytes/100 WBC (Bld)8.0 %[facility] HospitalNeutrophils (Bld) [#/Vol]2.23 10*3/uL1.45 - 7.50 k/uLCleveland Clinic Fairview HospitalNeutrophils/100 WBC (Bld)36.6 %[facility] HospitalNucleated RBC (Bld) [#/Vol]<0.01 k/uLCleveland Clinic Fairview HospitalNucleated RBC/100 WBC (Bld) [Ratio]0.0 /100 WBCCleveland Clinic Fairview HospitalPlatelet mean volume (Bld) [Entitic vol]11.0 fL9.0 - 12.7 fLCuniversity hospitals cleveland medical center ClinicPlatelets (Bld) [#/Vol]224 10*3/uL150 - 400 k/uLCleveland Clinic Fairview HospitalRBC (Bld) [#/Vol]4.29 10*6/uL3.90 - 5.20 m/uLCleveland Clinic Fairview HospitalWBC (Bld) [#/Vol]6.10 10*3/uL3.70 - 11.00 k/uLC[facility] Clinic Fairview HospitalComprehensive metabolic 2000 panelon 15-97-3950Iyytfwy [Mass/Vol]4.0 g/dL 3.9 - 4.9 g/dLCleveland ClinicALP [Catalytic activity/Vol]89 U/L34 - 123 U/L [facility] ClinicALT [Catalytic activity/Vol]18 U/L7 - 38 U/LCleveland [facility] Anion gap [Moles/Vol]12 mmol/L9 - 18 mmol/LCleveland ClinicAST [Catalytic activity/Vol]27 U/L13 - 35 U/LCleveland [facility] HospitalBilirubin [Mass/Vol]Low0.2 - 1.3 mg/dLCleveland Clinic Fairview HospitalCalcium [Mass/Vol]9.0 mg/dL8.5 - 10.2 mg/dLC[facility] Chloride [Moles/Vol]102 mmol/L97 - 105 mmol/LCleveland ClinicCO2 [Moles/Vol]22 mmol/L22 - 30 mmol/LCleveland [facility] HospitalCreatinine [Mass/Vol]0.46 mg/dLLow0.58 - 0.96 mg/dLC[facility] Clinic Fairview HospitalEstimated Glomerular Filtration Rmmi506 mL/min/1.73m >=60 mL/min/1.73mCleveland [facility] HospitalGlucose [Mass/Vol]87 mg/dL74 - 99 mg/dL [facility] HospitalPotassium [Moles/Vol]3.7 mmol/L3.7 - 5.1 mmol/LC[facility] Protein [Mass/Vol]6.7 g/dL6.3 - 8.0 g/dLUC Medical Centerodium [Moles/Vol]136 mmol/L136 - 144 mmol/LCleveland [facility] HospitalUrea nitrogen [Mass/Vol]7 mg/dL7 - 21 mg/dLCleveland Clinic Fairview HospitalESR Westergren method (Bld) [Velocity]on 98-08-1160ELP (Bld) [Velocity]29 mm/hHigh0 - 20 mm/hrCleveland Clinic Fairview HospitalVITAMIN D 25 HYDROXYon 305369-ngzbybmwxfrhom D3 [Mass/Vol]50.7 ng/mL31.0 - 80.0 ng/mLCleveland ClinicCovid-19 PCR (CVDTBH)on [id number]-CoV-2 (COVID-19) RNA KARAN+probe Ql (Unsp spec)Not detectedNormalNOT DETECTEDThe [facility]Titus Medical CenterComment on above: Result Comment: When diagnostic testing [...] for this test is supported by the Food Manager of Health and Human Service's declaration that circumstances exist to justify the emergency use of in vitro diagnostics for the detection and/or diagnosis of the virus that causes COVID-19. This EUA will remain in effect for the duration of the COVID-19 declaration justifying emergency of IVDs, unless it is terminated or revoked by the FDA (after which the test may no longer be used).Performed By: #### CVDTBH #### [facility] [address] [place] [address] Dr. Funmi Greene A STREP CULTUREon 10-07-2021. pyogenes Ag Ql (Unsp spec) Culture Observations: NEGATIVE FOR GROUP A STREPTOCOCCUS.NormalThe [facility]-Titus Medical CenterComment on above: Performed By: #### GRASTCX, SSCRN #### [facility] [address] [place] [address] Dr. Funmi AnandT SCREENon [id number] SCREEN ANegativeNormalNEGATIVESt. Vincent HospitalComment on above:Performed By: #### GRASTCX, SSCRN #### [facility] [address] [place] [address] Dr. Funmi AngelesPERNORPHINE CONFIRMATION, URINEon [id number] PositiveAbTrinity Health System East CampusComment on above:Result Comment: Confirmation performed by Mass SpectrometryPerformed By: #### BUPCON #### [facility] [address] [place] [address] Dr. Funmi Angelesprenorphine Bkdeixn8233 ng/mLNormalCutoff=10The [facility] Medical CenterComment on above:Performed By: #### BUPCON #### [facility] [address] [place] [address] Dr. Funmi BrittrbuprenorphinePositiveAbTrinity Health System East CampusComment on above:Performed By: #### BUPCON #### [facility] [address] [place] [address] Dr. Funmi Brittrbuprenorphine Confirm>2000NormalCutoff=10The [facility] Comment on above:Performed By: #### BUPCON #### [facility] [address] [place] [address] Dr. Funmi MendozaC AUTO DIFFon [id number] #0.0 103/ulNormal0.0-0.1The [facility] Medical CenterComment on above:Performed By: #### CBC #### [facility] [address] [place] [address] Dr. Funmi BoschBasophils/100 WBC (Bld)0.3 %Normal0.2-2.0[facility] Comment on above:Performed By: #### CBC #### [facility] [address] [place] [address] Dr. Funmi Coburn #0.1 103/ulNormal0.0-0.7ThMercy Health Anderson HospitalComment on above: Performed By: #### CBC #### [facility] [address] [place] [address] Dr. Funmi Sloanosinophils/100 WBC (Bld)0.6 %Critically low0.9-7.0The [facility] Medical CenterComment on above:Performed By: #### CBC #### [facility] [address] [place] [address] Dr. Funmi Sloanrythrocyte distribution width (RBC) [Ratio]13.4 %Dsftuj11.0-15.[address] Vincent HospitalComment on above:Performed By: #### CBC #### [facility] [address] [place] [address] Dr. Funmi BoschHematocrit (Bld) [Volume fraction]35.2 %Critically low36.0-48.0 The [facility] CenterComment on above:Performed By: #### CBC #### [facility] [address] [place] [address] Dr. Funmi BoschHemoglobin (Bld) [Mass/Vol]12.4 g/vICcklpd85.0-16.0The [facility] CenterComment on above:Performed By: #### CBC #### [facility] [address] [place] [address] Dr. Funmi Dow #0.04 10e3/ulCritically high0.00-0.03The [facility] Comment on above:Performed By: #### CBC #### [facility] [address] [place] [address] Dr. Funmi Dow %0.3 %Normal0.0-0.5The [facility] CenterComment on above: Performed By: #### CBC #### [facility] [address] [place] [address] Dr. Funmi Latham #5.2 103/ulCritically high1.2-3.8The [facility] Comment on above:Performed By: #### CBC #### [facility] [address] [place] [address] Dr. Funmi Cardonahocytes/100 WBC (Bld)41.7 %Opnrcs39.5-60.0The [facility] CenterComment on above:Performed By: #### CBC #### [facility] [address] [place] [address] Dr. Funmi ChristiansenUAL DIFF REQNONormalThe [facility] Medical CenterComment on above: Performed By: #### CBC #### [facility] [address] [place] [address] Dr. Funmi Bergman (RBC) [Entitic mass]30.1 qeLnlske27.7-34.0The [facility] CenterComment on above:Performed By: #### CBC #### [facility] [address] [place] [address] Dr. Funmi Bergman (RBC) [Mass/Vol]35.2 g/xBIsvsoq37.9-35.2The [facility] CenterComment on above:Performed By: #### CBC #### [facility] [address] [place] [address] Dr. Funmi BergmanV (RBC) [Entitic vol]85.4 kWNtxdrh46.0-99.0The [facility] CenterComment on above:Performed By: #### CBC #### [facility] [address] [place] [address] Dr. Funmi Schreiber #0.8 103/ulNormal0.3-0.8The [facility] CenterComment on above:Performed By: #### CBC #### [facility] [address] [place] [address] Dr. Funmi Pfeifferocytes/100 WBC (Bld)6.8 %Normal1.7-12.0The [facility] Comment on above:Performed By: #### CBC #### [facility] [address] [place] [address] Dr. Funmi Vaughn #6.3 103/ulNormal1.4-6.5The [facility] CenterComment on above:Performed By: #### CBC #### [facility] [address] [place] [address] Dr. Funmi Stocktonutrophils/100 WBC (Bld)50.3 %Acrgam21.0-75.0The [facility] Medical CenterComment on above:Performed By: #### CBC #### [facility] [address] [place] [address] Dr. Funmi Chung mean volume (Bld) [Entitic vol]9.9 fLNormal9.5-13.5The [facility] Medical CenterComment on above:Performed By: #### CBC #### [facility] [address] [place] [address] Dr. Funmi BoschPLT275 103/ikFqnktk690-259Tfy [facility] CenterComment on above: Performed By: #### CBC #### [facility] [address] [place] [address] Dr. Funmi BoschRBC4.12 106/ulCritically low4.20-5.40The [facility] Medical CenterComment on above:Performed By: #### CBC #### [facility] [address] [place] [address] Dr. Funmi BoschWBC12.4 103/ulCritically high4.0-11.0The [facility] Medical CenterComment on above:Performed By: #### CBC #### [facility] [address] [place] [address] Dr. Funmi BoschPREAngel QUANT HCGon 19-14-5859MKR QUANT<1NormalThe [facility] Comment on above:Performed By: #### PREGQNT #### [facility] [address] [place] [address] Dr. Funmi Austin RANGESEE BELOWNoOhioHealth Southeastern Medical CenterComment on above: Result Comment: 5-50 0-1 WEEK 40-300 1-2 WEEKS 100-1,000 2-3 WEEKS 500-6,000 3-4 WEEKS 5,000-200,000 1-2 MONTHS 10,000-100,000 2-3 MONTHS 3,000-50,000 2ND TRIMESTER 1,000-50,000 3RD TRIMESTERPerformed By: #### PREGQNT #### [facility] [address] [place] [address] Dr. Funmi Austin QUAL UR B/Oon 10-23-3831Uiyrcdnqc statusNegativeneg - pos [facility] HospitalQuality CheckYesCleveland ClinicCovid-19 PCR (CVDTBH)on 57-97-8797VLNI-CoV-2 (COVID-19) RNA KARAN+probe Ql (Unsp spec)Not detectedNormal NOT DETECTEDThe [facility] Medical CenterComment on above:Result Comment: This test is not yet approved or cleared by the [place] FDA. When there are no FDA- approved or cleared tests available, and other criteria are met, FDA can make tests available under an emergency access mechanism called an Emergency Use Authorization (EUA). The EUA for this test is supported by the [place] of Health and Human Service's (HHS's) declaration [...] of clinical signs and symptoms consistent with SARS-CoV-2.Performed By: #### CVDTBH #### [facility] [address] [place] [address] Dr. Funmi BoschDRUG SCREEN RAPID (URINE)on [id number]S St[facility] HospitalCommunising memorial hospital on above:Performed By: #### CVDTBH #### [facility] [address] [place] [address] Dr. Funmi BoschBARNegativeNormalNEGATIVESt. Vincent HospitalComment on above: Performed By: #### CVDTBH #### [facility] [address] [place] [address] Dr. Funmi AngelesPPositiveAbgilmore cityNEGSheltering Arms HospitalComment on above: Performed By: #### CVDTBH #### [facility] [address] [place] [address] Dr. Funmi BoschBZONegativeNormalNEGSheltering Arms HospitalComment on above: Performed By: #### CVDTBH #### [facility] [address] [place] [address] Dr. Funmi JimenezCNegativeNosentara albemarle medical centerNEGSheltering Arms HospitalComment on above: Performed By: #### CVDTBH #### [facility] [address] [place] [address] Dr. Funmi CardozoCleveland Clinic Avon HospitalComment on above: Result Comment: AMP (Amphetamine): 500ng/mL, BAR (Barbituates): 200 ng/mL, BZO (Benzodiazepines): 150 ng/mL, BUP (Buprenorphine): 10 ng/mL, LALA (Cocaine): 150 ng/mL, mAMP (Methamphetamine): 500 ng/mL, MTD (Methadone): 200 ng/mL, OPI (Opiates): 100 ng/mL, OXY (Oxycodone): 100 ng/mL, PCP (Phencyclidine): 25 ng/mL, PPX (Propoxyphene): 300 ng/mL, THC (Cannabinoids): 50 ng/mL, TCA (Trycyclic Antidepressants): 300 ng/mLPerformed By: #### CVDTBH #### [facility] [address] [place] [address] Dr. Funmi BoschDRUG CUT HEADERDRUG CLASS TEST SYSTEM CUT-OFF CONCENTRATIONS ARE FOLLOWS:NormalSt. Vincent HospitalComment on above:Performed By: #### CVDTBH #### [facility] [address] [place] [address] Dr. Funmi BoschmAMPNegativeNormalNEGATIVESt. Vincent HospitalComment on above: Performed By: #### CVDTBH #### [facility] [address] [place] [address] Dr. Funmi BoschMTDNegativeNormalNEGATIVESt. Vincent HospitalComment on above: Performed By: #### CVDTBH #### [facility] [address] [place] [address] Dr. Funmi BoschOPINegativeNormalNEGATIVESt. Vincent HospitalComment on above: Performed By: #### CVDTBH #### [facility] [address] [place] [address] Dr. Funmi BoschOXYNegativeNormalNEGATIVESt. Vincent HospitalComment on above: Performed By: #### CVDTBH #### [facility] [address] [place] [address] Dr. Funmi BoschPCPNegativeNormalNEGATIVESt. Vincent HospitalComment on above: Performed By: #### CVDTBH #### [facility] [address] [place] [address] Dr. Funmi BoschPPXNegativeNormalNEGATIVESt. Vincent HospitalComment on above: Performed By: #### CVDTBH #### [facility] [address] [place] [address] Dr. Funmi BoschTCANegativeNormalNEGATIVESt. Vincent HospitalComment on above: Performed By: #### CVDTBH #### [facility] [address] [place] [address] Dr. Funmi BoschTHCNegativeNormalNEGATIVESt. Vincent HospitalComment on above: Performed By: #### CVDTBH #### [facility] [address] [place] [address] Dr. Funmi BoschCovid-19 PCR ([facility])on [id number]-CoV-2 (COVID-19) RNA KARAN+probe Ql (Unsp spec)Not detectedNormalNOT DETECTEDSt. [facility] Comment on above:Result Comment: This test is not yet approved or cleared by the [place] FDA. When there are no FDA-approved or cleared tests available, and other criteria are met, FDA can make tests available under an emergency access mechanism called an Emergency Use Authorization (EUA). The EUA for this test is supported by the [place] of Health and Human Service's (HHS's) declaration that circumstances exist to justify the emergency use of in vitro diagnostics for the detection and/or diagnosis of the virus that causes COVID- 19. This EUA will remain in effect (meaning [...] of clinical signs and symptoms consistent with SARS-CoV-2.Performed By: #### CVDTBH #### [facility] [address] [place] [address] Dr. Funmi BoschGROUP A STREP CULTUREon 08-15-2021. pyogenes Ag Ql (Unsp spec) Culture Observations: NEGATIVE FOR GROUP A STREPTOCOCCUS.NormalThe [facility] Medical CenterComment on above: Performed By: #### CVDTBH #### [facility] [address] [place] [address] Dr. Funmi BoschSTREPT SCREENon 06-67-4360YFLAD SCREEN ANegativeNormalNEGATIVESt. Vincent HospitalComment on above:Performed By: #### CVDTBH #### [facility] [address] [place] [address] Dr. Yilan ChangXR CHEST 1 Von [id number] CHEST 1 VEXAMINATION: XR CHEST 1 V, , 08/15/2021 5:14 PM EDT INDICATION: COUGH HISTORY: Ordering Provider Reason for Exam: Technologist Note: Additional: COMPARISON: None. TECHNIQUE: Chest x-ray: One view. FINDINGS: No pneumothorax, pleural effusion or focal airspace consolidation. Heart is normal in size. Bony thorax is unremarkable. IMPRESSION: No acute cardiopulmonary process. Electronically authenticated by: RIMMA REIS Date: 2021-08-15 18:25[facility] QUAL UR B/Oon [id number] statusNegativeneg - pos [facility] HospitalQuality CheckYesCAdena [facility]ayette [facility] QUAL UR B/Oon 07-23-2021 statusNegativeneg - posCleveland Clinic Fairview HospitalQuality CheckYesCMercy Health West HospitalXR CHEST (2 VW)on [id number] CHEST (2 VW)EXAMINATION: TWO XRAY VIEWS OF THE CHEST 09/15/2020 5:40 pm COMPARISON: None. HISTORY: ORDERING SYSTEM PROVIDED HISTORY: productive cough, wheezing TECHNOLOGIST PROVIDED HISTORY: productive cough, wheezing FINDINGS: Lungs are hyperaerated. Possible patchy bilateral interstitial infiltrates. Heart and mediastinum normal. Bony thorax intact. IMPRESSION: Possible interstitial infiltrates. Probable small airways disease. Interpreted by: Tashi Baptiste MD Signed by: Tashi Baptiste MD 09/15/20 Final resultNormalMerNatchaug HospitalXR CHEST (2 VW)Ordered By: Loida Caro on [id number] interstitial infiltrates. Probable small airways disease.[employer] Phone: eXAMINATION: TWO XRAY VIEWS OF THE CHEST 09/15/2020 5:40 pm COMPARISON: None. HISTORY: ORDERING SYSTEM PROVIDED HISTORY: productive cough, wheezing TECHNOLOGIST PROVIDED HISTORY: productive cough, wheezing FINDINGS: Lungs are hyperaerated. Possible patchy bilateral interstitial infiltrates. Heart and mediastinum normal. Bony thorax intact.[employer] Phone: edi, Mhpn Incoming Radiant Results From [employer] - 09/15/2020 6:20 PM EDT EXAMINATION: TWO XRAY VIEWS OF THE CHEST 09/15/2020 5:40 pm COMPARISON: None. HISTORY: ORDERING SYSTEM PROVIDED HISTORY: productive cough, wheezing TECHNOLOGIST PROVIDED HISTORY: productive cough, wheezing FINDINGS: Lungs are hyperaerated. Possible patchy bilateral interstitial infiltrates. Heart and mediastinum normal. Bony thorax intact. IMPRESSION: Possible interstitial infiltrates. Probable small airways disease. [facility] Work Phone: [facility] Work Phone: cbc auto differentialon [id number] (Bld) [#/Vol]0.03 10*3/[facility], KYBasophils/100 WBC (Bld)0 %0 - 2 %[facility], MDDifferential TypeNOT REPORTEDNewark Hospital, KYEosinophils (Bld) [#/Vol]0.16 10*3/[facility], KYEosinophils/100 WBC (Bld)1 %1 - 4 %[facility], MDErythrocyte distribution width (RBC) [Ratio]14.3 %11.8 - 14.4 % [facility], MDHematocrit (Bld) [Volume fraction]35.7 %Low36.3 - 47.1 % [place], KYHemoglobin (Bld) [Mass/Vol]11.6 g/dLLow11.9 - 15.1 g/dLNewark Hospital, MDImmature granulocytes (Bld) [#/Vol]2 %Qqct5TumyyNewark Hospital, MD Immature granulocytes (Bld) [#/Vol]0.27 10*3/[facility], MD Interpretation and review of laboratory resultsAbnormMetroHealth Parma [facility], MD Lymphocytes (Bld) [#/Vol]3.65 10*3/[facility], MDLymphocytes/100 WBC (Bld)26 %24 - 43 %[facility], MDMCH (RBC) [Entitic mass]28.3 pg25.2 - 33.5 pgNewark Hospital, MDMCHC (RBC) [Mass/Vol]32.5 g/dL28.4 - 34.8 g/dLMercy Health- [place], KYMCV (RBC) [Entitic vol]87.1 fL82.6 - 102.9 fLMercy Health- [place], [place] Monocytes (Bld) [#/Vol]0.97 10*3/uLMercy Health- [place], KYMonocytes/100 WBC (Bld)7 %3 - 12 %[facility]- [place], KYPlatelet mean volume (Bld) [Entitic vol]10.3 fL8.1 - 13.5 fLProvidence Hospitalcy Health- [place], KYPlatelets (Bld) [#/Vol]NOT REPORTEDMercy Health- [place], KYPlatelets (Bld) [#/Vol]349 10*3/uLMercy Health- [place], KYRBC (Bld) [#/Vol] 4.10 10*6/uL3.95 - 5.11 m/uLProvidence Hospitalcy Health- [place], KYRBC morphology finding Nom (Bld) NOT REPORTEDSt. [facility]- [place], KYSegmented neutrophils/100 WBC (Bld)64 %36 - 65 % [facility]- [place], [place]YSegs Absolute8.80HighMercy Health- [place], KYWBC (Bld) [#/Vol] 13.9 10*3/uLHighMercy Health- [place], KYWBC (Bld) [#/Vol]0.0 10*3/uL0.0 per [address] [facility]- [place], KYWBC MorphologyNOT REPORTEDMer Health- [place], KYDRUG SCREEN MULTI URINEon 19-70-9953Cjwimirpdzh Screen, UrNegativeNEGATIVEMercy Health- [place], KYBarbiturate Screen, UrNegativeNEGATIVEMercy Health- [place], KYBenzodiazepine Screen, UrineNegativeNEGATIVEMercy Health- [place], KYBuprenorphine UrineNegative NEGATIVEMercy Health- [place], KYCannabinoid Scrn, UrNegativeNEGATIVEMercy Health- [place], KYCocaine Metabolite, UrineNegativeNEGATIVEMercy Health- [place], KYMDMA, Urine NOT REPORTEDNEGATIVEMercy Health- [place], KYMethadone Screen, UrineNegativeNEGATIVE [facility]- [place], KYMethamphetamine, UrineNegativeNEGATIVEMercy Health- [place], [place] Opiates, UrineNegativeNEGATIVEMercy Health- [place], KYOxycodone Screen, UrNegative NEGATIVEMercy Health- [place], KYPhencyclidine, UrineNegativeNEGATIVEMercy Health- [place], KYPropoxyphene, UrineNegativeNEGATIVEMercy Health- [place], KYTest InformationNOT REPORTEDMercy Health- [place], KYTricyclic Antidepressants, UrineNegativeNEGATIVE [facility]- [place], KYComment on above:Drug screen results are to be used for medical purposes only. All positive results are unconfirmed. Testing for employment or legal uses should be sent to a reference laboratory for confirmation. Glucose tolerance, 1 houron [id number] ADMNGlucolaMerESP Technologies- [place], KYGlucose tolerance screen 86l882 mg/dL70 - 135 mg/dLProvidence HospitalPHEMI Health Systems [place], KYHemoglobinon 06-03-0811Lzhybyqwwb (Bld) [Mass/Vol]11.0 g/dLLow11.9 - 15.1 g/dLProvidence HospitalPHEMI Health Systems [place], KYInterpretation and review of laboratory resultsAbnormalMerESP Technologies- [place], KYRapid Influenza A/B Antigenson [id number] ExamINFLUENZA TEST INVALID BY OUR TESTING METHOD. WILL BE SENT FOR CONFIRMATORY TESTING.[employer] Phone: special RequestsNOT [employer] Phone: specimen Description.NASOPHARYNGEAL SWABJAMF Software Phone: pRENATAL TYPE AND SCREENon 40-43-5884XGC/RhNegative [employer] [place], KYAntibody IDAnti-D, Passive Due To RhIGMercy ACE- [place], [place] Urine Drug Screen, Comprehensiveon 39-19-7243Rxapilfpoof Screen, UrNegative NEGATIVEMercy Health- [place], KYBarbiturate Screen, UrNegativeNEGATIVEMercy Health- [place], KYBenzodiazepine Screen, UrineNegativeNEGATIVEMercy Health- [place], [place] Buprenorphine UrineNegativeNEGATIVEMercy Health- [place], KYCannabinoid Scrn, Ur NegativeNEGATIVEMercy Health- [place], KYCocaine Metabolite, UrineNegativeNEGATIVE [employer]- [place], KYMDMA, UrineNOT REPORTEDNEGATIVEMercy Health- [place], KYMethadone Screen, UrineNegativeNEGATIVEMercy Health- [place], KYMethamphetamine, UrineNegative NEGATIVEMercy Health- [place], KYOpiates, UrineNegativeNEGATIVEParkview Health [place], [place] Oxycodone Screen, UrNegativeNEGATIVEParkview Health [place], KYPhencyclidine, Urine NegativeNEGATIVEParkview Health [place], KYPropoxyphene, UrineNegativeNEGATIVEParkview Health [place], KYTest InformationNOT REPORTEDParkview Health [place], MDTricyclic Antidepressants, UrineNegativeNEGATIVEParkview Health [place], MDComment on above:Drug screen results are to be used for medical purposes only. All positive results are unconfirmed. Testing for employment or legal uses should be sent to a reference laboratory for confirmation. ABO/RHon [id number]/RhNegativeNewark Hospital, MDCBCon 48-31-2943Ihphnyewnfq distribution width (RBC) [Ratio]15.5 %High11.8 - 14.4 %[place], [place] Hematocrit (Bld) [Volume fraction]32.8 %Low36.3 - 47.1 %[place], [place] Hemoglobin (Bld) [Mass/Vol]10.5 g/dLLow11.9 - 15.1 g/dLWeb[place], [place] Interpretation and review of laboratory resultsAbnormalWeb[place], KYMCH (RBC) [Entitic mass]27.1 pg25.2 - 33.5 pgWeb[place], KYMCHC (RBC) [Mass/Vol]32.0 g/dL28.4 - 34.8 g/dLWeb[place], KYMCV (RBC) [Entitic vol] 84.8 fL82.6 - 102.9 fLWeb[place], KYPlatelet mean volume (Bld) [Entitic vol]10.6 fL8.1 - 13.5 fLWeb[place], KYPlatelets (Bld) [#/Vol]230 10*3/uL [place], KYRBC (Bld) [#/Vol]3.87 10*6/uLLow3.95 - 5.11 m/uLWeb[place], KYWBC (Bld) [#/Vol]0.0 10*3/uL0.0 per 100 WBCMercy Health- [place], KYWBC (Bld) [#/Vol]10.3 10*3/uLMer Health- [place], KYComprehensive Metabolic Panelon 06-95-8374Hzkxdqw [Mass/Vol]3.7 g/dL3.5 - 5.2 g/dLSt. Mary'[facility]- [place], [place] Albumin/Globulin [Mass ratio]1.2 {ratio}[facility]- [place], KYALP [Catalytic activity/Vol]64 U/L35 - 104 U/LMohiohealth riverside [facility] Health- [place], KYALT [Catalytic activity/Vol] 11 U/L5 - 33 U/LMregency hospital companyy Health- [place], KYAnion gap [Moles/Vol]15 mmol/L9 - 17 mmol/L [facility]- [place], KYAST [Catalytic activity/Vol]17 U/L<32[facility]- [place], [place] Bilirubin Ql (U)<0.10Low0.3 - 1.2 mg/dLSt. Mary'[facility]- [place], KYBun/Cre Ofyou16Yygp [facility]- [place], KYCalcium [Mass/Vol]9.5 mg/dL8.6 - 10.4 mg/dLSt. Mary'[facility]- [place], KYChloride [Moles/Vol]97 mmol/LLow98 - 107 mmol/LMohiohealth riverside methodist hospital Health- [place], KYCO2 [Moles/Vol]21 mmol/L20 - 31 mmol/LMregency hospital companyy Health- [place], KYCreatinine [Mass/Vol]0.47 mg/dLLow0.5 - 0.9 mg/dLSt. Mary'[facility]- [place], KYGFR >60>60 mL/min [facility]- [place], KYGFR Non->60>60 mL/minSt. Mary'S [facility]- [place], [place] Glucose [Mass/Vol]104 mg/tNAsbc35 - 99 mg/dLSt. Mary'S [facility]- [place], KYInterpretation and review of laboratory resultsAbnormalMer Health- [place], KYPotassium [Moles/Vol]3.5 mmol/LLow3.7 - 5.3 mmol/LMregency hospital companyy Health- [place], KYProtein [Mass/Vol] 6.8 g/dL6.4 - 8.3 g/dLSt. Mary'[facility]- [place], KYSodium [Moles/Vol]133 mmol/LAzo777 - 144 mmol/LMregency hospital companyy Health- [place], KYUrea nitrogen [Mass/Vol]10 mg/dL6 - 20 mg/dLSt. Mary'S [facility]- [place], KYMetabolic Panelon 72-37-5882UIH/1.73 sq M predicted among non- blacks MDRD (S/P/Bld) [Vol rate/Area][facility], KYComment on above:Stage 1: Some kidney damage normal GFR Stage 2: Mild kidney damage GFR 60-89 Stage 3: Moderate kidney damage GFR 30-59 Stage 4: Severe kidney damage GFR 15-29 Stage 5: Severe kidney damage GFR <15 ESRD - chronic treatment by dialysis or transplant Average GFR for 30-39 years old: 107 mL/min/1.73sq m Chronic Kidney Disease: <60 mL/min/1.73sq m Kidney failure: <15 mL/min/1.73sq m eGFR calculated using average adult body mass. Additional eGFR calculator available at: http://www.Mengcao/multiple_crcl_2012.htm Microscopic Urinalysison 81-81-1511Zyehdzgtl, UA3+AbnormalNoneMey Health- [place], KYBacteria, UA1+AbnormalNoneMey Health- [place], KYCasts UANOT REPORTED/LPFMercy Health- [place], KYCrystals UANOT REPORTEDNone /HPFMercy Health- [place], KYEpithelial Cells UA0 TO 2[facility]- [place], KYInterpretation and review of laboratory resultsAbnormalSt. Mary'S [facility]- [place], KYMucus, UANOT REPORTEDNoneMey Health- [place], [place] Other Observations UANOT REPORTEDNOT REQ.[facility], KYRBC (U) [#/Vol]0 TO 2[facility]- [place], KYRenal Epithelial, UrineNOT REPORTED0 /HPFMercy Health- [place], KYTrichomonas, UANOT REPORTEDNoneMercy Health- [place], KYWBC, UA0 TO 2[facility]- [place], KYYeast, UANOT REPORTEDNoneMercy Health- [place], [place]-[facility]- [place], [place] Urinalysis Reflex to Cultureon [id number] UrineNegativeNEGATIVEProvidence Hospitalcy Health- [place], KYColor, UAYELLOWYELLOWMer Health- [place], KYGlucose, UrNegative NEGATIVESt. Mary'S [facility]- [place], KYInterpretation and review of laboratory results AbnormalMercy Health- [place], KYKetones Ql (U)NegativeNEGATIVEMercy Health- [place], [place] Leukocyte esterase Test strip Ql (U)NegativeNEGATIVEMercy Health- [place], KYNitrite, UrineNegativeNEGATIVEMercy Health- [place], KYpH, UA7.5[facility]- [place], KYProtein (U) [Mass/Vol]NegativeNEGATIVEMercy Health- [place], KYSpecific [place], UA1.015Mer[facility]- [place], KYTurbidity UACLOUDYAbnormalCLEARMercy Health- [place], KYUrinalysis CommentsNOT REPORTEDMercy Health- [place], KYUrine HgbNegativeNEGATIVEMercy Health- [place], KYUrobilinogen, UrineNormalNormalMercy Health- [place], KYWet Prep, Genitalon 30-47-5431Tegxye ExamYEAST PRESENTMercy Health- [place], KYDirect ExamNO CLUE CELLS SEENMercy Health- [place], [place] Exam[place] TRICHOMONAS SEENMercy Health- [place], [place] Special RequestsNOT REPORTEDMercy Health- [place], [place]YSpecimen Description.VAGINAMercy Health- [place], [place]hCG, quantitative, pregnancyon [id number] [id number]<5 IU/LMercy Health- [place], [place]Comment on above: Non-preg premeno <=5 Postmeno <=8 Male <=3 If HCG results do not concur with clinical observations, additional testing to confirm results is recommended. Elevated results not associated with may be found in patients with other diseases such as tumors of the germ cells (testis, ovaries, etc.), bladder, pancreas, stomach, lungs, and liver. Interpretation and review of laboratory resultsAbnormalMercy Health- [place], [place] Vital Signs Date TimeVital SignValuePerforming IlivbsziyPkdrxzsg29-98-5326 11:28-0400Body shgsja758.02 cmKon license of [facility] Breanne DMD Work Phone: [facility]08-20-2025 11:28-0400Body mass index (BMI) [Ratio]25.72 kg/e6KfhccKen Raymundo DMD Work Phone: [facility]08-20-2025 11:28-0400Body surface area Derived from formula1.71 h4XrpdyKen Raymundo DMD Work Phone: 1(775)[address] [place], [place] 2803608-20-2025 11:28-0400Body cstokgazols16.01 [degF]Ken Raymundo DMD Work Phone: 1(845)[address] [place], [place] 2803608-20-2025 11:28-0400Body tffnui48.86 kgKen Raymundo DMD Work Phone: 1(373)[address] [place], [place] 2803608-20-2025 11:28-0400Diastolic blood mm[Hg]Ken Raymundo DMD Work Phone: 1(083)[address] [place], [place] 2803608-20-2025 11:28-0400Heart rate99 /minKen Raymundo DMD Work Phone: 1(373)[address] [place], [place] 2803608-20-2025 11:28-0400Systolic blood kayualts128 mm[Hg]Ken Raymundo DMD Work Phone: 1(010)[address] [place], [place] 2803607-09-2025 09:14-0400Body mass index (BMI) [Ratio]26.11 kg/m2Niya Jack IN STORE MARKETER Work Phone: [facility]Rjokslmxyd22-45-8641 09:14-0400Body temperature 98.49 [degF]Niya Jack IN STORE MARKETER Work Phone: [facility] HospitalAitxqycyck21-36-0284 09:14-0400Body ejlpmw53.86 kgNiya Yokastaz IN STORE MARKETER Work Phone: [facility] HospitalMcydenrnvm81-41-9775 09:14-0400Diastolic blood ebnrlusr06 mm[Hg]Niya Yokastaz IN STORE MARKETER Work Phone: [facility] HospitalHbgoorczsi66-98-0493 09:14-0400Heart rate83 /min Niya Yokastaz IN STORE MARKETER Work Phone: [facility] HospitalIxmjreogxx43-80-4890 09:14-0400Respiratory rate18 /minLisa Yokastaz IN STORE MARKETER Work Phone: [facility] HospitalCjqlyoicup44-88-3726 09:14-3694JkZ1% (BldA) [Mass fraction]96 %Niya Santiago IN STORE MARKETER Work Phone: [facility] HospitalYpfiofddze81-61-3799 09:14-0400Systolic blood nulavfac307 mm[Hg]Niya Templetonz IN STORE MARKETER Work Phone: [facility] HospitalDuzlhuiurv37-01-7020 13:04-0500Body rzxina799 cm Niyajose Templetonz IN STORE MARKETER Work Phone: [facility] HospitalLknwbijddj87-86-9450 13:04-0500Body mass index (BMI) [Ratio]29.62 kg/m2Niya Templetonz IN STORE MARKETER Work Phone: [facility] HospitalZdvwtrzgjv92-14-4301 13:04-0500Body temperature 98.1 [degF]Niya Templetonz IN STORE MARKETER Work Phone: [facility] HospitalQadwhsoawl66-54-5885 13:04-0500Body jblned86.84 kgNiya Templetonz IN STORE MARKETER Work Phone: [facility] HospitalGqqdgypfnj57-89-0829 13:04-0500Diastolic blood rncorqod23 mm[Hg]Niya Templetonz IN STORE MARKETER Work Phone: [facility] HospitalTcyyjwaahp03-03-8030 13:04-0500Heart rate93 /min Niyajose Templetonz IN STORE MARKETER Work Phone: [facility] HospitalQxhdktggtp80-27-3901 13:04-0500Respiratory rate18 /minLisa Santiago IN STORE MARKETER Work Phone: [facility] HospitalTgeohijlpy56-53-0247 13:04-3237OtB1% (BldA) [Mass fraction]97 %Niya Templetonz IN STORE MARKETER Work Phone: [facility] HospitalRyusqsztno61-50-0455 13:04-0500Systolic blood mm[Hg]Niya Templetonz IN STORE MARKETER Work Phone: [facility] HospitalBtrorekgsi40-42-0226 13:49-0500Body qaxfzj762 cm Craig Wade MD Work Phone: [phone] Ndqrlw67-65-2202 13:49-0500Body mass index (BMI) [Ratio]28.78 kg/j2BcrituCraig Wade MD Work Phone: [phone] Wokkqq75-28-7249 13:49-0500Body .7 kgCraig Wade MD Work Phone: [phone] Smsjmo45-99-7724 13:49-0500Diastolic blood mm[Hg]Craig Wade MD Work Phone: [phone] Oohkyj16-04-6875 13:49-0500Heart rate77 /min Craig Wade MD Work Phone: [phone] Axuaue22-85-6745 13:49-0500Systolic blood kymhtltm700 mm[Hg]Craig Wade MD Work Phone: [phone] centerand Wonere65-94-4115 10:42-0500Body yyfnmr380 cm Niya Santiago IN STORE MARKETER Work Phone: [facility] HospitalJgjvdfxvuc82-79-9265 10:42-0500Body mass index (BMI) [Ratio]27.95 kg/m2Niya Santiago IN STORE MARKETER Work Phone: [facility] HospitalJdiajzbrbs39-34-6837 10:42-0500Body temperature 97.59 [degF]Niya Santiago IN STORE MARKETER Work Phone: [facility] HospitalOloeojllbi49-50-4872 10:42-0500Body ldakzs42.58 kgNiya Santiago IN STORE MARKETER Work Phone: [facility] HospitalOegfgndjhq54-22-9734 10:42-0500Diastolic blood mm[Hg]Niya Santiago IN STORE MARKETER Work Phone: [facility] HospitalVzumgzeijd85-93-8387 10:42-0500Heart hbrs786 /min Niya Santiago IN STORE MARKETER Work Phone: [facility] HospitalHxzxwptrgf81-30-2043 10:42-0500Respiratory rate18 /minNiya Santiago IN STORE MARKETER Work Phone: [facility] HospitalTirmtmodzr64-30-0924 10:42-1860InK8% (BldA) [Mass fraction]97 %Niya Santiago IN STORE MARKETER Work Phone: [facility] HospitalBnhnwrhnmw90-72-5667 10:42-0500Systolic blood cuigxjfk797 mm[Hg]Niya Santiago IN STORE MARKETER Work Phone: [facility] HospitalRvmnqpbiga30-89-1719 14:54-0500Body ryjisv843 cm Niya Santiago IN STORE MARKETER Work Phone: 1(049)[address]12-03-2024 14:54-0500Body mass index (BMI) [Ratio]29.8 kg/m2Niya Santiago IN STORE MARKETER Work Phone: 1(275)948-[address] [place], [place] [address]Rkznvheydf46-57-9939 14:54-0500Body temperature 97.81 [degF]Niya Santiago IN STORE MARKETER Work Phone: 1(058)1-[address] [place], [place] [address]Qfzxbfykbu44-83-5734 14:54-0500Body .3 kg Niya Santiago IN STORE MARKETER Work Phone: [facility] HospitalCktpsaqzuj96-38-7967 14:54-0500Diastolic blood jbajjdmh13 mm[Hg]Niya Santiago IN STORE MARKETER Work Phone: [facility] HospitalThdrhgqkru67-92-8177 14:54-0500Heart rate78 /min Niya Santiago IN STORE MARKETER Work Phone: [facility] HospitalFcuzgegdmc73-89-0198 14:54-0500Respiratory rate19 /minNiya Santiago IN STORE MARKETER Work Phone: [facility] HospitalGyvxrixzcb74-85-7047 14:54-2889SaJ8% (BldA) [Mass fraction]98 %Niya Santiago IN STORE MARKETER Work Phone: [facility] HospitalSgcyisnyab56-64-8782 14:54-0500Systolic blood oilgcfmx076 mm[Hg]Niya Santiago IN STORE MARKETER Work Phone: 1(246)[address]08-29-2024 13:04-0400Body yaymho281 cm Niya Santiago IN STORE MARKETER Work Phone: [place] [address]Zkmfkhaybw75-57-9992 13:04-0400Body mass index (BMI) [Ratio]29.19 kg/m2Niya Templetonz IN STORE MARKETER Work Phone: [place] [address]Dpycbkvckm13-79-0049 13:04-0400Body etsnhotqwrn59 [degF]Niya Santiago IN STORE MARKETER Work Phone: 1(154)154-[address] [place], [place] [address]Criafijbqy62-15-0801 13:04-0400Body zgvdos91.75 kgNiya Templetonz IN STORE MARKETER Work Phone: 1(611)766-[address] [place], [place] [address]Esikpopdjv55-06-3779 13:04-0400Diastolic blood cuuxjpyw02 mm[Hg]Niya Templetonz IN STORE MARKETER Work Phone: [place] [address]Mfwdqtlmlm11-87-2040 13:04-0400Heart rate97 /min Niya Templetonz IN STORE MARKETER Work Phone: 1(118)805-[address] [place], [place] [address]Pulziipfke08-11-3340 13:04-0400Respiratory rate18 /minLisa Templetonz IN STORE MARKETER Work Phone: [place] [address]Psprfjpphc22-95-7606 13:04-2181OuI0% (BldA) [Mass fraction]98 %Niya Santaigo IN STORE MARKETER Work Phone: [place] [address]Vtuyiggrwb71-45-5449 13:04-0400Systolic blood gogsthdv118 mm[Hg]Niya Templetonz IN STORE MARKETER Work Phone: 1(091)410-[address] [place], [place] [address]Nlyjbweyfk57-28-2129 13:42-0400Body temperature 97.5 [degF]Silvia Cooper APRN.FOOD SAMPLER Work Phone: [facility]04-03-2024 13:42-0400Diastolic blood wriamsxp04 mm[Hg]Silvia Cooper APRN.FOOD SAMPLER Work Phone: [facility]04-03-2024 13:42-0400Heart rate65 /min Silvia Cooper APRN.FOOD SAMPLER Work Phone: [facility]04-03-2024 13:42-8564LmI8% (BldA) [Mass fraction]98 %Silvia Allison TRANSCRIPTION.FOOD SAMPLER Work Phone: [phone]04-03-2024 13:42-0400Systolic blood bydzcprx649 mm[Hg]Silvia Allison TRANSCRIPTION.FOOD SAMPLER Work Phone: [phone]04-03-2024 11:32-0400Body temperature 97.2 [degF]Rheu Leslie Work Phone: [phone]04-03-2024 11:32-0400Body llbbhi11.9 kgRheu Leslie Work Phone: [phone]04-03-2024 11:32-0400Diastolic blood olublhjc70 mm[Hg]Rheu Leslie Work Phone: [phone]04-03-2024 11:32-0400Heart rate65 /min Rheu Leslie Work Phone: [phone]04-03-2024 11:32-1207RjL5% (BldA) [Mass fraction]96 %Rheu Leslie Work Phone: [phone]04-03-2024 11:32-0400Systolic blood txnosvdg844 mm[Hg]Rheu Leslie Work Phone: [phone]03-06-2024 12:15-0500Body temperature 97 [degF]Rheu Leslie Work Phone: [phone]03-06-2024 12:15-0500Body .6 kgRheu Leslie Work Phone: [phone]03-06-2024 12:15-0500Diastolic blood mm[Hg]Rheu Leslie Work Phone: [phone]03-06-2024 12:15-0500Heart rate80 /min Rheu Leslie Work Phone: [phone]03-06-2024 12:15-0500Respiratory rate 18 /minRheu Leslie Work Phone: [facility]03-06-2024 12:15-0500Systolic blood rirqsfeo933 mm[Hg]Rheu Leslie Work Phone: [phone]02-07-2024 12:50-0500Diastolic blood jreknoqu02 mm[Hg]Rheu Leslie Work Phone: 1(742)69[facility]02-07-2024 12:50-0500Heart rate70 /min Rheu Leslie Work Phone: [phone]02-07-2024 12:50-0500Systolic blood sqlmybmq420 mm[Hg]Rheu Leslie Work Phone: [phone]02-07-2024 11:34-0500Body temperature 97.39 [degF]Rheu Lelsie Work Phone: [phone]02-07-2024 11:34-0500Body ebrqfy88.39 kgRheu Leslie Work Phone: [phone]11-29-2023 08:40-0500Body temperature 96.21 [degF]Fariba Hill APRN.FOOD SAMPLER Work Phone: 4(059)32[facility]11-29-2023 08:40-0500Body .45 kgFariba Hill APRN.FOOD SAMPLER Work Phone: 2(016)65[facility]11-29-2023 08:40-0500Diastolic blood fgkcmabd17 mm[Hg]Fariba Hill APRN.FOOD SAMPLER Work Phone: [phone])23[facility]11-29-2023 08:40-0500Heart rate84 /min Fariba Hill APRN.FOOD SAMPLER Work Phone: [phone])95[facility]11-29-2023 08:40-1487PzI8% (BldA) [Mass fraction]97 %Fariab Hill APRN.FOOD SAMPLER Work Phone: [phone]11-29-2023 08:40-0500Systolic blood fkyacols965 mm[Hg]Fariba Hill APRN.FOOD SAMPLER Work Phone: 0(481)[facility]11-09-2023 10:45-0500Body temperature 97.5 [degF]Rheu Leslie Work Phone: [phone]11-09-2023 10:45-0500Body prhalq33.67 kgRheu Leslie Work Phone: [phone])7399[facility]11-09-2023 10:45-0500Diastolic blood tetavhwt95 mm[Hg]Rheu Leslie Work Phone: [phone]11-09-2023 10:45-0500Heart rate78 /min Rheu Leslie Work Phone: [phone] [address]-09-2023 10:45-8277SkD8% (BldA) [Mass fraction]97 %Rheu Leslie Work Phone: [phone]11-09-2023 10:45-0500Systolic blood pycsvjfs497 mm[Hg]Rheu Leslie Work Phone: 1(854)[facility]10-06-2023 09:44-0400Body temperature 97 [degF]Rheu Leslie Work Phone: [phone]10-06-2023 09:44-0400Body qcggpo98.94 kgRheu Leslie Work Phone: 1(733)[facility]10-06-2023 09:44-0400Diastolic blood aubvxttc86 mm[Hg]Rheu Leslie Work Phone: [phone]10-06-2023 09:44-0400Heart rate75 /min Rheu Leslie Work Phone: [phone]10-06-2023 09:44-0400Systolic blood jbedczhs150 mm[Hg]Rheu Leslie Work Phone: [phone]08-31-2023 14:00-0400Diastolic blood jfwyumzg09 mm[Hg]Rheu Leslie Work Phone: [phone])7399[facility]08-31-2023 14:00-0400Heart rate51 /min Rheu Leslie Work Phone: 1(797)[address]31-2023 14:00-0400Respiratory rate 18 /minRheu Leslie Work Phone: [phone]08-31-2023 14:00-0400Systolic blood bnrpyyvq869 mm[Hg]Rheu Elslie Work Phone: [phone]08-31-2023 10:52-6344DuG6% (BldA) [Mass fraction]100 %Rheu Leslie Work Phone: [phone]08-31-2023 09:39-0400Body chucup08.31 kgRheu Leslie Work Phone: 1(398)[facility]08-31-2023 09:03-0400Body temperature 96.91 [degF]Fariba Hill APRN.FOOD SAMPLER Work Phone: [phone]08-31-2023 09:03-0400Diastolic blood cnargmto82 mm[Hg]Fariba Hill APRN.FOOD SAMPLER Work Phone: 1(241)[facility]08-31-2023 09:03-0400Heart rate69 /min Fariba Hill APRN.FOOD SAMPLER Work Phone: 1(759)[facility]08-31-2023 09:03-3129LfK5% (BldA) [Mass fraction]98 %Fariba Hill APRN.FOOD SAMPLER Work Phone: [phone]08-31-2023 09:03-0400Systolic blood owckczdo609 mm[Hg]Fariba Hill APRN.FOOD SAMPLER Work Phone: [phone]07-27-2023 09:30-0400Body temperature 98.01 [degF]Rheu Leslie Work Phone: [phone]07-27-2023 09:30-0400Body teqdts26.31 kgRheu Leslie Work Phone: [phone]07-27-2023 09:30-0400Diastolic blood cbvibuum81 mm[Hg]Rheu Leslie Work Phone: [phone]07-27-2023 09:30-0400Heart rate85 /min Rheu Leslie Work Phone: [phone]07-27-2023 09:30-0400Respiratory rate 16 /minRheu Leslie Work Phone: [phone])50[facility]07-27-2023 09:30-0400Systolic blood ttujhywx567 mm[Hg]Rheu Leslie Work Phone: [phone]02-21-2023 13:44-0500Diastolic blood kvjrozgj64 mm[Hg]Rheu Leslie Work Phone: [phone]02-21-2023 13:44-0500Heart rate60 /min Rheu Leslie Work Phone: [phone]02-21-2023 13:44-0500Respiratory rate 18 /minRheu Leslie Work Phone: [phone]02-21-2023 13:44-0500Systolic blood zofdlmlq662 mm[Hg]Rheu Leslie Work Phone: [phone]02-21-2023 10:24-0500Body jawouq19.22 kgAmy Liz TRANSCRIPTION.FOOD SAMPLER Work Phone: [phone]02-21-2023 10:24-0500Diastolic blood jdvooyug75 mm[Hg]Fariba Hill TRANSCRIPTION.FOOD SAMPLER Work Phone: [phone]02-21-2023 10:24-0500Heart rate72 /min Fariba Hill TRANSCRIPTION.FOOD SAMPLER Work Phone: [phone]02-21-2023 10:24-0500Systolic blood alexzdjn641 mm[Hg]Fariba Ramosick TRANSCRIPTION.FOOD SAMPLER Work Phone: [phone]01-03-2023 13:00-0500Diastolic blood rmuiafgx05 mm[Hg]Rheu Leslie Work Phone: [phone]01-03-2023 13:00-0500Heart rate62 /min Rheu Leslie Work Phone: [phone]01-03-2023 13:00-0500Respiratory rate 16 /minRheu Leslie Work Phone: [facility]01-03-2023 13:00-0500Systolic blood mm[Hg]Rheu Leslie Work Phone: [phone]01-03-2023 10:00-0500Body temperature 97.11 [degF]Rheu Leslie Work Phone: [phone]01-03-2023 10:00-0500Body kdojty72.85 kgRheu Leslie Work Phone: [phone]11-14-2022 13:38-0500Diastolic blood mm[Hg]Rheu Leslie Work Phone: [phone]11-14-2022 13:38-0500Heart rate50 /min Rheu Leslie Work Phone: [phone])02[facility]11-14-2022 13:38-0500Respiratory rate 20 /minRheu Leslie Work Phone: [phone]11-14-2022 13:38-0500Systolic blood xgaibytj117 mm[Hg]Rheu Leslie Work Phone: [phone]11-14-2022 10:05-0500Body bxiyvq53.76 kgFariba Hill TRANSCRIPTION.FOOD SAMPLER Work Phone: [phone]11-14-2022 10:05-0500Diastolic blood qofqftoo50 mm[Hg]Fariba Ramosick TRANSCRIPTION.FOOD SAMPLER Work Phone: [phone]11-14-2022 10:05-0500Heart rate66 /min Fariba Liz TRANSCRIPTION.FOOD SAMPLER Work Phone: [phone]11-14-2022 10:05-0500Systolic blood qlhkuaaq379 mm[Hg]Fariba Liz TRANSCRIPTION.FOOD SAMPLER Work Phone: [phone]09-22-2022 16:03-0400Diastolic blood nlpbjluv33 mm[Hg]Rheu Leslie Work Phone: [phone]09-22-2022 16:03-0400Heart rate60 /min Rheu Leslie Work Phone: [phone]09-22-2022 16:03-0400Respiratory rate 18 /minRheu Leslie Work Phone: [phone]09-22-2022 16:03-0400Systolic blood izidqcov652 mm[Hg]Rheu Leslie Work Phone: [phone]09-22-2022 13:20-0400Body temperature 97 [degF]Rheu Leslie Work Phone: [phone]09-22-2022 13:20-0400Body dbgzyl14.94 kgRheu Leslie Work Phone: [phone]07-13-2022 15:41-0400Diastolic blood zidfogoe89 mm[Hg]Rheu Leslie Work Phone: [phone]07-13-2022 15:41-0400Heart rate74 /min Rheu Leslie Work Phone: [phone]07-13-2022 15:41-0400Respiratory rate 18 /minRheu Leslie Work Phone: [phone]07-13-2022 15:41-0400Systolic blood mgeszvat271 mm[Hg]Rheu Leslie Work Phone: [phone]07-13-2022 12:55-0400Body temperature 97.9 [degF]Rheu Leslie Work Phone: [phone]07-13-2022 12:55-0400Body .67 kgRheu Leslie Work Phone: [phone]06-15-2022 16:10-0400Diastolic blood uquodzzk25 mm[Hg]Rheu Leslie Work Phone: [phone]06-15-2022 16:10-0400Heart rate55 /min Rheu Leslie Work Phone: [phone]06-15-2022 16:10-0400Respiratory rate 18 /minRheu Leslie Work Phone: [facility]06-15-2022 16:10-0400Systolic blood xuecmoco129 mm[Hg]Rheu Leslie Work Phone: [phone]06-15-2022 13:00-0400Body temperature 97.59 [degF]Rheu Leslie Work Phone: [phone]06-15-2022 13:00-0400Body dzaakc82.03 kgRheu Leslie Work Phone: [phone]06-01-2022 12:15-0400Diastolic blood ppsuxuod57 mm[Hg]Rheu Leslie Work Phone: [phone]06-01-2022 12:15-0400Heart rate78 /min Rheu Leslie Work Phone: [phone]06-01-2022 12:15-0400Respiratory rate 18 /minRheu Leslie Work Phone: [phone]06-01-2022 12:15-0400Systolic blood llrwiraa527 mm[Hg]Rheu Leslie Work Phone: [phone]06-01-2022 08:54-0400Body fuxqzk67.39 kgFariba Hill TRANSCRIPTION.FOOD SAMPLER Work Phone: [phone]06-01-2022 08:54-0400Diastolic blood jvsusgef03 mm[Hg]Fariba Liz TRANSCRIPTION.FOOD SAMPLER Work Phone: [phone]06-01-2022 08:54-0400Heart rate66 /min Fariba Liz TRANSCRIPTION.FOOD SAMPLER Work Phone: [phone]06-01-2022 08:54-0400Systolic blood izqlugji476 mm[Hg]Fariba Liz TRANSCRIPTION.FOOD SAMPLER Work Phone: [facility]07-25-2021 17:13-0400Body mass index (BMI) [Ratio]25.69 kg/i6[facility] Work Phone: 1(923) 674-934207-25-2021 17:13-0400Body mcswktqaszq54.6 [degF][employer] Phone: 1(726) 626-424107-25-2021 17:13-0400Body mwsonu68.77 kgJ[employer] Phone: 1(271) 714-508807-25-2021 17:13-0400Diastolic blood nxffhucc50 mm[Hg] [employer] Phone: 1(284) 267-466007-25-2021 17:13-0400Heart rate71 /[employer] Phone: 1(880)401-886659-31565776-58-8958 17:13-0400Respiratory rate14 /[facility]DT[facility] HospitalE[facility] Chef Phone: 1(981) 705-307207-25-2021 17:13-9411MtZ7% (BldA) [Mass fraction]96 % [employer] Phone: 1(935) 819-504107-25-2021 17:13-0400Systolic blood oygldirv717 mm[Hg] [employer] Phone: 1(263) 575-757201-22-2021 16:47-0500Respiratory Rate16 /PLDTProvidence HospitalSolarCity [facility] [place] Limited, [place]07-19-4525 16:03-0500Body Gizanfcdgng69.91 [degF][facility], [place]20-90-6665 16:01-0500BMI (Body Mass Index)24.8 kg/q5RotpeSolarCity [facility] [place] Limited, [place] 03-15-2020 16:01-0500Body eeuyeg12.5 kgProvidence HospitalSolarCity [facility] Limited, HQ23-19-0997 16:01-0500 Ptaamy169 cmProvidence HospitalSolarCity [facility] [place] Limited, ZF01-49-0437 15:58-0500BP Ybxwnsvcw78 mm[Hg][facility], LV78-60-6808 15:58-0500BP Xcpztpdm171 mm[Hg][facility], [place] 03-15-2020 15:58-0500Pulse (Heart Rate)103 /PLDTProv[facility] HospitalSolarCity [facility] Limited, [id number] 15:58-0500Pulse Yngfxtrs15 %[facility], ON24-81-3456 07:18-0400Body Ynfifyolrpf43.9 [degF][facility], JP62-24-1247 07:18-0400BP Wmgislpys41 mm[Hg][facility] [place], PZ27-10-8844 07:18-0400BP Exsuohgi465 mm[Hg][facility] [place], AU80-16-5944 07:18-0400Pulse (Heart Rate)75 /[facility] [place], HK82-55-1030 07:18-0400 Respiratory Rate16 /[facility] [place], LM55-30-5594 09:51-0400Pulse Pmhzxxof96 %Tosha [facility], GI39-19-6741 20:57-0400BMI (Body Mass Index)32.42 kg/w0[facility]Sam[facility], [id number] 20:57-0400Body weight 83.01 [facility], [id number] 20:57-4541Wkqict893 [facility], EH70-73-1086 06:15-0400BMI (Body Mass Index)33.66 kg/m2 [facility] [id number] 06:15-0400Body Mhzqopngnek01 [degF] [facility], [id number] 06:15-0400Body .18 [facility] [place], QE18-71-7819 06:15-0400BP Espjliwzf38 mm[Hg][facility] [place], OL55-21-2679 06:15-0400BP Vfrhcvdh286 mm[Hg][facility] [place], [id number] 06:15-9855Mxftfp975 cmSd [facility]- [place], CZ92-09-3570 06:15-0400Pulse (Heart Rate)97 /minSyed [facility]- [place], ZW72-02-6430 06:15-0400Pulse Leiiixcj859 %[facility], [id number] 06:15-0400Respiratory Rate16 /minSyed [facility], [id number] 12:47-0400Body Ehenozwaadh56.21 [degF][facility], [place] 05-04-2019 12:47-0400BP Dayubetnn89 mm[Hg][facility], KQ59-14-4031 12:47-0400BP Mnhskqye302 mm[Hg][facility], [id number] 12:47-0400 Pulse (Heart Rate)89 /[facility], NX36-51-1312 12:47-0400 Respiratory Rate20 /min[address], NC92-56-8453 20:45-0500BP Mesbodwvd87 mm[Hg][facility], NA83-59-4793 20:45-0500BP Cbiprbbz952 mm[Hg] [facility], QG07-64-8035 20:39-0500Body Wpunywrpbif70.1 [degF][facility], GB41-77-2888 20:39-0500Pulse (Heart Rate)91 /[facility], [place] 01-28-2019 20:39-0500Pulse Anjueqrs02 %[facility], [id number] 20:39-0500 Respiratory Rate20 /[facility], [id number] 19:32-0400BP Niojmcnqc92 mm[Hg][facility], [id number] 19:32-0400BP Wgbdiirm269 mm[Hg][facility], [id number] 19:32-0400Pulse (Heart Rate)95 /min[facility], MD 12-03-2018 19:32-0400Respiratory Rate16 /[facility], [id number] 17:37-0400BMI (Body Mass Index)30.11 kg/m3QvibeNewark Hospital, DT48-30-9738 17:37-0400Body Uulykpkelea80.9 [degF][facility], NR36-09-9104 17:37-0400 Body .11 kg[facility], [id number] 17:37-0400Pulse Vukkqmsa29 % [facility] [place], [place] Encounters Encounter DateEncounter TypeCare ProviderFacilityStart: 10-27-2024 End: 00-33-9733Bshqcuiem identifierDonis Ortez DDS Work Phone: Dental ClinicStart: 95-23-2723mzomwowwgoShra Pérez [facility]ITALtart: 10-11-2024 End: 25-33-6591bu-evaluation - limited, problem focused (established patient; not post-operative visit)Ken Raymundo DMD Work Phone: [facility] 10-11-2024 End: 15-05-6291Lqilceenk for dental examination and cleaning with abnormal findingsKen Raymundo DMD Work Phone: [facility]: 10-11-2024 End: 20-98-2774Vqexcbumk identifierKen Raymundo DMD Work Phone: [facility]Start: 10-02-2024 End: 46-68-6106IzdnbdAubi Aichholz IN STORE MARKETER Work Phone: [facility] CWM FMComment on above:ADHD (attention deficit hyperactivity disorder), combined typeStart: 08-30-2024 End: 48-47-0714Dhvdpz flowsheetLisa Aichholz IN STORE MARKETER Work Phone: [facility] FMStart: 08-30-2024 End: 44-45-6762Kyqjdw flowsheetLisa Aichholz IN STORE MARKETER Work Phone: [facility] C[facility] FMStart: 08-30-2024 End: 65-15-6249tlnkdfqqvhNNLK AICHHOLZNot AvailableStart: 08-30-2024 End: 56-34-3021Scevqx outpatient visit 25 minutesLisa Aichholz IN STORE MARKETER Work Phone: [facility] CWM FMComment on above:ADHD (attention deficit hyperactivity disorder), combined type (Primary Dx); Opioid abuse, uncomplicated (CMS-HCC); Mild depression ; Anxiety; Cigarette nicotine dependence without complication; Median nerve neuritis, leftStart: 07-31-2024 End: 40-06-4061BxrnpqYvlm Aichholz IN STORE MARKETER Work Phone: noMS CWM FMComment on above:ADHD (attention deficit hyperactivity disorder), combined type (CMS/HCC)Start: 07-24-2024 End: 47-01-2544LuvvydCqnf Aichholz IN STORE MARKETER Work Phone: [facility] CWM FMComment on above:WheezingStart: 05-10-2024 End: 86-17-0272Cgrditlvw encounterCraig Wade MD Work Phone: [facility] [place] CampustologyComment on above:Patient RequestStart: 05-08-2024 End: 82-38-4919gzoimmktqlYOZF JO AICHHOLZFacility:[facility] Start: 04-26-2024 End: 05-79-5454Tykaxd flowsheetNiya Santiago IN STORE MARKETER Work Phone: [facility] FMStart: 04-26-2024 End: 97-02-7095Swphnp flowsheetLisa Damonhholalisson IN STORE MARKETER Work Phone: noMS CWM FMStart: 04-26-2024 End: 58-86-4928pzspsrrgtySVVI AICHHOLZNot AvailableStart: 04-26-2024 End: 58-70-3567Vifoxu outpatient visit 25 minutesLisa Jack IN STORE MARKETER Work Phone: [facility] CWM FMComment on above:ADHD (attention deficit hyperactivity disorder), combined type (CMS/HCC) (Primary Dx); Neutropenia, unspecified type (CMS/HCC); Opioid abuse, uncomplicated (CMS/HCC); Cigarette nicotine dependence without complication; Anxiety; Wheezing; NauseaStart: 04-03-2024 End: 84-93-2685Ujhufm OnlyCraig Wade MD Work Phone: [facility] [place] Campustology Arthritis CenterComment on above: Seropositive rheumatoid arthritis (HCC) (Primary Dx)Start: 03-31-2024 End: 60-82-0776Frtnmcz encounter procedureCalchristiano Leone [facility] Specialty PharmacyComment on above:SPP Inflammatory Conditions - Treatment Referral (Actemra); Insurance Authorization ([place] Submission Pending)Start: 03-31-2024 End: 19-03-1895ZpwiebRgux Estrellaholz IN STORE MARKETER Work Phone: noms CWM FMComment on above:WheezingStart: 03-31-2024 End: 37-01-0758kqgnfwkegdSydusa Bradley [facility] Specialty PharmacyStart: 03-31-2024 End: 54-91-8340Udqjrc outpatient visit 40 minutesCraig Wade MD Work Phone: RheumatologyComment on above:Seropositive rheumatoid arthritis (HCC) (Primary Dx); Medication monitoring encounterStart: 03-23-2024 End: 54-57-3445Wpxukqxwt Result EncounterLisa Aichholz IN STORE MARKETER Work Phone: noms External Department UnsolicitedStart: 03-23-2024 End: 45-21-8498Klcwuxodm Result EncounterLisa Aichholz IN STORE MARKETER Work Phone: noms External Department UnsolicitedStart: 03-01-2024 End: 35-66-8930Emyzef flowsheetLisa Aichholz IN STORE MARKETER Work Phone: noms CWM FMStart: 03-01-2024 End: 03-43-5752Sgqgfs flowsheetLisa Aichholz IN STORE MARKETER Work Phone: noms CWM FMStart: 03-01-2024 End: 17-46-6116Gesiuakqr Result EncounterLisa Aichholz IN STORE MARKETER Work Phone: noms External Department UnsolicitedStart: 03-01-2024 End: 90-57-9256owmvlvfcjnFVXU AICHHOLZNot AvailableStart: 03-01-2024 End: 69-19-3628Eucldvn encounter procedureLisa Aichholz IN STORE MARKETER Work Phone: noms HealthcareStart: 03-01-2024 End: 30-44-4334Lgkzyhur preventive med est patient 40-64yrsNiya De La Rosajoe IN STORE MARKETER Work Phone: noms CWM FMComment on above:Well woman exam with routine gynecological exam (Primary Dx); Rheumatoid arthritis, unspecified (CMS/HCC); Opioid abuse, uncomplicated (CMS/HCC); Tobacco user; Screening mammogram for breast cancerStart: 55-63-9155Safqibi encounter procedureRadhasa De La Rosajoe IN STORE MARKETER Work Phone: noms HealthcareStart: 02-09-2024 End: 88-90-8060VkqciqSfgf Estrellajoe IN STORE MARKETER Work Phone: noms CWM FMComment on above:WheezingStart: 01-25-2024 End: 08-92-2801xumazaknwhXRQR AICHHOLZNot AvailableStart: 01-25-2024 End: 30-83-2883Kqxltx outpatient visit 25 minutesLi Jack IN STORE MARKETER Work Phone: noms CWM FMComment on above:ADHD (attention deficit hyperactivity disorder), combined type (CMS/HCC) (Primary Dx); Opioid abuse, uncomplicated (CMS/HCC); Tobacco user; Rheumatoid arthritis, involving unspecified site, unspecified whether rheumatoid factor present (CMS/HCC); Neutropenia, unspecified type (CMS/HCC); Mild depression (CMS/HCC); Anxiety; BMI 29.0-29.9,adultStart: 01-25-2024 End: 67-09-5838Kukhnq flowsheetNiya Damonclevelandjoe IN STORE MARKETER Work Phone: noms CWM FMStart: 01-25-2024 End: 11-13-4894Aqqzhw flowsheetNiya Estrellajoe IN STORE MARKETER Work Phone: noms CWM FMStart: 12-19-2023 End: 40-16-9831OqiahkVcjr Aicclevelandjoe IN STORE MARKETER Work Phone: noms CWM FMComment on above:WheezingStart: 10-21-2023 End: 76-29-7114Llphue flowsheetNiya Damonclevelandjoe IN STORE MARKETER Work Phone: noms CWM FMStart: 10-21-2023 End: 23-09-5112Htypgb flowsheetRadha Jack IN STORE MARKETER Work Phone: noms CWM FMStart: 10-21-2023 End: 38-64-3069zbovqutoloEXIL AICClevelandARTHURZNot AvailableStart: 10-21-2023 End: 96-18-1486Jmcdoi outpatient visit 25 minutesLi Jack IN STORE MARKETER Work Phone: noms CWM FMComment on above:Adult ADHD (attention deficit hyperactivity disorder) (CMS/HCC) (Primary Dx); Neutropenia, unspecified (CMS/HCC); Tobacco user; BMI 29.0-29.9,adult; Rheumatoid arthritis, involving unspecified site, unspecified whether rheumatoid factor present (CMS/HCC); Anxiety; Subacute maxillary sinusitis; Wheezing; NauseaStart: 23-74-0898Cqdstncjf encounterFariba Hill APRN.CNP Work Phone: InfusionStart: 15-09-5204dfpgulsareBqp Provider RheumatologyComment on above:Infusion Thursday 07/20Start: 04-41-1354E-mail encounter from caregiverWestlake [facility] ProviderRheumatologyStart: 87-48-1492ucohzinsqgJwtwy [facility] Leslie Work Phone: InfusionStart: 42-04-1668Cvaoeuwts encounterFariba Hill APRN.CNP Work Phone: InfusionStart: 01-03-0793znoxpcsieqSbr Provider InfusionComment on above:Infusion Wednesday06/23/23Start: 61-26-2748O-mail encounter from caregiverWestlake Regional Hospital ProviderInfusionStart: 49-26-8756Urfpec OnlyFariba Hill APRN.CNP Work Phone: RheumatologyStart: 14-63-3627Wyusonzkz encounterFariba Hill APRN.CNP Work Phone: InfusionStart: 05-26-2023 End: 51-60-9932ylguaiymmvURWYTHBOtis BLAKEFacility:[facility] Hospitaltart: 05-26-2023 End: 11-76-8821Buigvv outpatient visit 15 minutesSilvia Cooper APRN.CNP Work Phone: [facility] ClinicComment on above:Wheezing (Primary Dx)Start: 05-26-2023 End: 64-22-0585Sakgbti encounter Kina Hill APRN.CNP Work Phone: RheumatologyComment on above:Seropositive rheumatoid arthritis (HCC) (Primary Dx); Synovitis; Vitamin D deficiency; Localized superficial swelling, mass, or lump; Encounter to discuss test results; Encounter for medication review and counseling; Medication monitoring encounterStart: 05-26-2023 End: 22-38-9562krvdsjwmqtCzbx Chair [address] Work Phone: InfusionComment on above:Seropositive rheumatoid arthritis (HCC) (Primary Dx); Vitamin D deficiencyStart: 88-17-6278jwybjtlcenNil ProviderInfusionComment on above:Infusion Wednesday05/26/23Start: 83-14-4685M-mail encounter from caregiver Ccf ProviderCCF BARB FHCStart: 86-63-8999Mncwxktvq encounterBrittani (Coord) DemarestRadiologyComment on above:AppointmentStart: 04-28-2023 End: 49-74-5347Dbqbxmn encounter Kina Hill APRN.CNP Work Phone: RheumatologyComment on above:Seropositive rheumatoid arthritis (HCC) (Primary Dx); Localized superficial swelling, mass, or lump; Encounter for medication review and counseling; Synovitis; Encounter to discuss test results; Medication monitoring encounter; SmokerStart: 20-37-1782Loadugcqc encounterFariba Hill APRN.CNP Work Phone: InfusionStart: 04-28-2023 End: 80-02-5803bgnuivykszNqdh Chair [address] Work Phone: InfusionComment on above:Seropositive rheumatoid arthritis (HCC) (Primary Dx)Start: 46-59-8318Dyeego OnlyFariba Hill APRN.CNP Work Phone: RheumatologyStart: 75-93-3846Ckftuquht encounter Juan Daniel Leos MD Work Phone: RheumatologyComment on above:No Show (To f/u apt) Start: 03-31-2023 End: 12-52-7514wlbrmhnygnLxjf Chair [address] Work Phone: InfusionComment on above:Seropositive rheumatoid arthritis (HCC) (Primary Dx)Start: 20-80-9008hecnrevtalZve ProviderInfusion Comment on above:Infusion for 03/31/23Start: 61-44-9269K-mail encounter from [facility] ProviderTWO RIVERS PSYCHIATRIC HOSPITALRASHARD GARFIELD MEDICAL CENTERtart: 43-83-0629Fyosbk OnlyFariba Hill APRN.FOOD SAMPLER Work Phone: RheumatologyStart: 75-96-3438Vtvzocvsa encounterFariba Hill APRN.FOOD SAMPLER Work Phone: InfusionStart: 10-69-5407Njmcxxano encounterNurse [facility] Leslie Work Phone: InfusionStart: 34-44-9679Sbsizn OnlyFariba Hill APRN.FOOD SAMPLER Work Phone: RheumatologyComment on above:Infusion Wednesday02/02/23 Start: 66-36-6207Nssomvcdm encounterFariba Hill APRN.FOOD SAMPLER Work Phone: RheumatologyComment on above:Medication ProblemStart: 01-20-2023 End: 42-37-7751Irzkoel encounter procedureFariba Hill APRN.FOOD SAMPLER Work Phone: RheumatologyComment on above:Seropositive rheumatoid arthritis (HCC) (Primary Dx); Pain in right foot; Encounter for monitoring leflunomide therapy; Encounter for medication review and counseling; Synovitis; Vitamin D deficiency; Medication monitoring encounter; Encounter to discuss test resultsStart: 12-31-2022 End: 78-55-9558pfjmxkkaoiLaww Chair [address] Work Phone: InfusionComment on above:Seropositive rheumatoid arthritis (HCC) (Primary Dx)Start: 56-53-5528Ksbzfb OnlyFariba Hill APRN.FOOD SAMPLER Work Phone: [phone]: 34-60-6233ahrjpbfrozRpw Provider InfusionComment on above:Infusion 12/31/22Start: 30-45-6670E[facility] ProviderF [facility]ENTERRASHARD [facility] CENTERtart: 30-87-9394Tngxcsuqw encounterFariba Hill APRN.CNP Work Phone: [phone] on above:ResultsStart: 12-14-2022 Telephone encounterFariba Hill APRN.CNP Work Phone: [facility] Rhe[facility] InstituteComment on above:Lab Orders Start: 90-08-4135Hjegupkhb encounterFariba Hill APRN.ANTHONY Work Phone: RheumatologyComment on above:ResultsStart: 11-27-2022 End: 38-88-1893tjvohujygeAqfm Chair [address] Work Phone: [phone] on above:Seropositive rheumatoid arthritis (HCC) (Primary Dx)Start: 45-75-1059Oyoehxtcb encounterNurse [facility] Work Phone: [phone]: 50-62-7132Bgxzcoalq encounterTino Blake MD Work Phone: [phone] InstituteStart: 10-22-2022 End: 32-39-3591iljhalylsrBjeq Chair [address] Work Phone: [phone] on above:Seropositive rheumatoid arthritis (HCC) (Primary Dx); Vitamin D deficiency; SynovitisStart: 10-22-2022 End: 77-45-7086Ncmrwmr encounter procedureFariba Hill APRN.CNP Work Phone: RheumatologyComment on above:Seropositive rheumatoid arthritis (HCC) (Primary Dx); Synovitis; Vitamin D deficiency; Encounter for monitoring leflunomide therapy; Encounter for medication review and counseling; Encounter to discuss test results; Counseling on health promotion and disease prevention; SmokerStart: 84-51-7783cjsfvnynnvDpx ProviderInfusionComment on above:Infusion 10/22/22Start: 24-20-1724G-mail encounter from caregiverCcf ProviderCCF BARB [facility] CENTERtart: 09-17-2022 End: 71-54-6578inwlveeytjUphz Chair [address] Work Phone: InfusionComment on above:Seropositive rheumatoid arthritis (HCC) (Primary Dx)Start: 06-56-9502tqrpigfufrWfzMilton Hill APRN.ANTHONY Work Phone: InfusionComment on above:Infusion for 09/17/22Start: 26-97-6025I-mail encounter from Theodora Hill APRN.CNP Work Phone: [facility]ENTERtart: 48-47-1674Pibdjq Latia Hill APRN.FOOD SAMPLER Work Phone: RheumatologyStart: 89-36-9048Xtdtbxwxg encounter Juan Daniel Leos MD Work Phone: [facility] HB-3Comment on above:Insurance Authorization (Prior Auth Delayed: P2P requested for [employer])Start: 07-24-2022 Orders Latia Hill APRN.CNP Work Phone: RheumatologyStart: 06-23-2022 End: 96-32-0156bbypdbphukFlwu Chair [address] Work Phone: InfusionComment on above:Seropositive rheumatoid arthritis (HCC) (Primary Dx); Vitamin D deficiencyStart: 29-24-9014tpeqplojlaKmqPrerna Hill APRN.CNP Work Phone: InfusionComment on above:Infusion ConfirmationStart: 16-77-4885T-mail encounter from Theodora Hill APRN.CNP Work Phone: [facility]ENTERtart: 04-28-2022 End: 74-65-2688bldtckxfjbWdkPrerna Hill APRN.FOOD SAMPLER Work Phone: RheumatologyComment on above:Seropositive rheumatoid arthritis (HCC) (Primary Dx)Start: 04-28-2022 End: 87-54-1099Llaspibwxncw consultation with Norberto Hill APRN.FOOD SAMPLER Work Phone: [facility]ENTERtart: 27-10-0914Tepnif OnlyFariba Hill APRN.FOOD SAMPLER Work Phone: RheumatologyComment on above:ResultsStart: 04-14-2022 End: 61-97-9940Ddafzbgvhz hospital visit by physicianXr Kenia 1 Work Phone: RadiologyComment on above:Seropositive rheumatoid arthritis (HCC) [M05.9]Start: 04-14-2022 End: 91-58-0746wlpekqbdnpWcvg Chair [address] Work Phone: InfusionComment on above:Seropositive rheumatoid arthritis (HCC) (Primary Dx); Vitamin D deficiencyStart: 04-14-2022 End: 82-58-8662Klfzuvm encounter procedureFariba Hill APRN.FOOD SAMPLER Work Phone: RheumatologyComment on above:Seropositive rheumatoid arthritis (HCC) (Primary Dx); Vitamin D deficiency; Smoker; Pain in left foot; Encounter for medication review and counseling; Encounter to discuss test results; Encounter for monitoring leflunomide therapy; Counseling on health promotion and disease prevention; High risk medication useStart: 18-33-2021Uuwbjm OnlyFariba Hill APRN.FOOD SAMPLER Work Phone: RheumatologyStart: 18-45-7451JnkhvlZoj M Emerick APRN.FOOD SAMPLER Work Phone: RheumatologyComment on above:Refill RequestStart: 64-64-6529Injderqwi encounterFariba Hill APRN.FOOD SAMPLER Work Phone: RheumatologyComment on above:ResultsStart: 02-24-2022 End: 49-59-5721Dyarmlkzku hospital visit by physicianXr [facility] Comment on above:Left without seenStart: 02-24-2022 End: 51-45-0415uqljaomwjiEnhz Chair [address] Work Phone: InfusionComment on above:Seropositive rheumatoid arthritis (HCC) (Primary Dx)Start: 69-66-8460Stfczvxxl encounterFariba Hill APRN.CNP Work Phone: InfusionComment on above:Patient QuestionStart: 51-54-2704tfprjslztvLhg (Historical)Appointment CenterStart: 35-09-5051Objyum OnlyFariba Hill APRN.CNP Work Phone: RheumatologyStart: 68-56-9767Mxgbevsys encounter Juan Daniel Leos MD Work Phone: HOSPITAL PHARMACY HB-3Comment on above:Insurance Authorization (Prior auth delayed: Additional Info Needed (Renflexis))Start: 48-75-5736Feikykhwy encounterTherese [facility] Comment on above:Smoking CessationPatient UpdateStart: 01-05-2022 End: 06-38-5425omwfoltpenErax Chair [address] Work Phone: InfusionComment on above:Vitamin D deficiency (Primary Dx); Seropositive rheumatoid arthritis (HCC)Start: 01-05-2022 End: 38-29-9314Gzrkita encounter Kina Hill APRN.CNP Work Phone: RheumatologyComment on above:Seropositive rheumatoid arthritis (HCC) (Primary Dx); Smoker; Pain in left foot; Encounter for medication review and counseling; Encounter to discuss test results; Encounter for monitoring leflunomide therapy; Counseling on health promotion and disease prevention; High risk medication use; Rheumatoid arthritis flare (HCC)Start: 94-23-2974vqfadiycbwWvcMilton Hill APRN.CNP Work Phone: InfusionComment on above:Infusion for tomorrow.Start: 45-39-9026S-mail encounter from Theodora Hill APRN.CNP Work Phone: [facility] FHCStart: 14-81-7515Dyunnwtce encounterFariba Hill APRN.FOOD SAMPLER Work Phone: InfusionComment on above:Patient QuestionStart: 56-07-0821Ryulrc Latia Hill APRN.FOOD SAMPLER Work Phone: RheumatologyStart: 77-92-2018Oamlomgbt encounterFariba Hill APRN.FOOD SAMPLER Work Phone: InfusionStart: 11-13-2021 End: 41-42-3428duzczdbmoeUjon Chair [address] Work Phone: InfusionComment on above:Seropositive rheumatoid arthritis (HCC) (Primary Dx); Vitamin D deficiencyStart: 28-02-6360doqfyegxluJgn M Emerick TRANSCRIPTION.FOOD SAMPLER Work Phone: InfusionComment on above:Infusion for tomorrowStart: 00-30-8324F-mail encounter from caregiverFariba Hill [place].FOOD SAMPLER Work Phone: [facility] [place] FHCStart: 73-66-6325Awjzqmgkn encounterFariba Hill APRN.FOOD SAMPLER Work Phone: InfusionComment on above:Patient QuestionStart: 16-48-0079Btfgwg Latia Hill APRN.FOOD SAMPLER Work Phone: RheumatologyStart: 11-03-2021 End: 77-95-8280qtsrleogacXR NONE LISTED REQUESTFacility:P8Ewelc: 10-30-2021 Orders JadenFariba Hill [place].FOOD SAMPLER Work Phone: RheumatologyStart: 10-29-2021 End: 01-27-0656iwcadpycynTen M Emerick [place].FOOD SAMPLER Work Phone: RheumatologyComment on above:Seropositive rheumatoid arthritis (HCC) (Primary Dx); Vitamin D deficiency; H/O noncompliance with medical treatment, presenting hazards to health; Encounter for medication review and counseling; Encounter to discuss test results; Counseling on health promotion and disease prevention; Encounter for monitoring leflunomide therapy; Medication monitoring encounter; Rheumatoid arthritis flare (HCC)Start: 10-29-2021 End: 93-95-8112Ftdbsqwowbfm consultation with patientFariba Hill APRN.FOOD SAMPLER Work Phone: [facility] FHCStart: 48-02-8686Pecisykfv encounterFariba Hill APRN.FOOD SAMPLER Work Phone: InfusionStart: 25-06-5197Ecpcft OnlyFariba Hill APRN.FOOD SAMPLER Work Phone: RheumatologyStart: 10-07-2021 End: 01-63-7893gdzgiosusgJH NONE LISTED REQUESTFacility:T8Xeefa: 09-05-2021 Encounter for preprocedural laboratory examinationDR PATRICIO MELODY .[facility] Systemtart: 09-05-2021 End: 24-71-0431dfelksogrbVI PATRICIO MELODY .Facility:E0Gqtvp: 09-04-2021 End: 25-82-6312dkepmxzmnwMH PATRICIO MELODY .Facility:Z6Vfmte: 09-04-2021 End: 14-39-9650Skskxszkh for preprocedural laboratory examinationDR PATRICIO MELODY .Facility:Z6Hsufn: 09-03-2021 End: 03-71-3592rofblcliuvZkol Chair [address] Work Phone: InfusionComment on above:Dermatomyositis (HCC) (Primary Dx); Seropositive rheumatoid arthritis (HCC); Vitamin D deficiencyStart: 09-02-2021 End: 81-57-2124zpmkqdkdbzZG PATRICIO MELODY .Facility:S4Lijvz: 70-75-1641Stluxoseg encounterFairba Hill APRN.FOOD SAMPLER Work Phone: InfusionComment on above:QuestionStart: 08-15-2021 End: 03-20-1101ivjssbstgpEFYYHSQ D KATKOFacility:E9Vhnwe: 36-63-9845Bexrqthxc encounterFariba Hill APRN.FOOD SAMPLER Work Phone: RheumatologyComment on above:ResultsStart: 08-06-2021 End: 18-42-0963serczemahtZhds Chair [address] Work Phone: InfusionComment on above:Seropositive rheumatoid arthritis (HCC) (Primary Dx); Vitamin D deficiencyStart: 95-35-1418Qmxbqarichard Leos MD Work Phone: RheumatologyStart: 07-23-2021 End: 15-35-4565pzycevvrljJqdt Chair [address] Work Phone: InfusionComment on above:Seropositive rheumatoid arthritis (HCC) (Primary Dx)Start: 07-23-2021 End: 48-18-8557Ikcpbtk encounter Kina Hill APRN.CNP Work Phone: eumatologyComment on above:Seropositive rheumatoid arthritis (HCC) (Primary Dx); Medication monitoring encounter; H/O noncompliance with medical treatment, presenting hazards to health; Encounter for medication review and counseling; Encounter to discuss test results; Counseling on health promotion and disease prevention; Encounter for monitoring leflunomide therapyStart: 54-08-2008Zpqacniao encounter Fariba Hill APRN.CNP Work Phone: InfusionComment on above:Question; Return Provider CallStart: 24-22-3309Ujnqdenhs encounterFariba Hill APRN.CNP Work Phone: RheumatologyComment on above:AppointmentStart: 07-11-2021 End: 38-26-3499Zzmlprqph department patient visitSEAN [facility] Start: 88-14-0611Shxrwjxss encounterFariba Hill APRN.CNP Work Phone: HOSPITAL PHARMACY HB-3Comment on above:Insurance Authorization (Prior Auth Delayed: Additional Info needed for Renflex[employer])Start: 37-24-9879Panfpxshirley Leos MD Work Phone: RheumatologyStart: 65-76-1743Ennsgmgkp encounterFariba Hill APRN.CNP Work Phone: eumatologyComment on above:Medication ProblemStart: 73-94-9612Ertxegrwp encounterAmy Shara Liz BAIRD Work Phone: RheumatologyComment on above:ResultsStart: 09-15-2020 End: 12-20-4295Etugudrcc department patient visitSEAN [facility] Start: 09-15-2020 End: 37-97-0037Tlxsdrxhx department patient visitSelect [facility] EDComment on above:Pneumonia of both lungs due to infectious organism, unspecified part of lung (Primary Dx)Start: 03-15-2020 End: 96-54-7956Vijquazor department patient visitSelect Medical [facility] EDComment on above:Suspected COVID-19 virus infection (Primary Dx)Start: 07-11-2019 End: 92-66-8545Lhfvbankvh and management of inpatientSanali Viera Work Phone: mthz Labor and DeliveryStart: 07-06-2019 End: 30-89-7662Uxjylymspo hospital visit by Critical access hospital LaboratoryComment on above:38 weeks gestation of pregnancyStart: 05-12-2019 End: 49-29-6930Depoirguj department patient visitSyed Jose Mayo Work Phone: [facility] EDComment on above:Superficial thrombophlebitis of left upper extremity (Primary Dx)Start: 05-04-2019 End: 22-98-2199Swoxhscqug [facility] [address] [facility] ([facility])Start: 05-03-2019 End: 13-90-7571Tiynzgniwy hospital [facility]Sam[facility] [address] [facility] ([facility]B)Comment on above:Canceled (Patient)Start: 05-02-2019 End: 73-49-0860Yizaovlhyo hospital [facility]Sam[facility] [address] [facility] (MOB)Comment on above:Canceled (Patient)Start: 05-01-2019 End: 41-05-8323Hopguujlkd hospital visit by Critical access hospital LaboratoryComment on above:Encounter for supervision of other normal in third trimester; 29 weeks gestation of pregnancyStart: 04-04-2019 End: 48-12-6289Yzwqnclaek hospital visit by physicianMO[facility] LaboratoryComment on above:Acute nasopharyngitisStart: 2019 End: 79-13-7118Wxytgkwiyy hospital visit by physicianFire[facility] UltrasoundComment on above:Right upper quadrant abdominal painStart: 01-28-2019 End: 19-80-0092Xsnvwgscf department patient visitSelect [facility] EDComment on above:Carpal tunnel syndrome of right wrist (Primary Dx)Start: 01-16-2019 End: 71-14-2612Ivuzixwvkr hospital visit by Critical access hospital LaboratoryComment on above:Screening for cervical cancerStart: 12-19-2018 End: 27-53-6219Fqfwetnkpd hospital visit by Critical access hospital LaboratoryComment on above:Encounter for supervision of normal in first trimester, unspecified ; Screening for cystic fibrosis; Screening, , for anatomic surveyStart: 12-03-2018 End: 93-97-4227Ywpaurmam department patient visitSelect [facility] EDComment on above:Threatened miscarriage (Primary Dx); Yeast infection Procedures DateProcedureProcedure DetailPerforming ClinicianStart: 10-27-2024 End: 65-64-5378Ubkpwfcteglsh of current medicationsEric Ortez DDSStart: 10-27-2024 End: 86-40-9447gnoivxgycy therapy, molar tooth (excluding final yarsanism)Donis Ortez DDSStart: 10-27-2024 End: 63-29-7581idtb hygiene instructionsEric Ortez DDSStart: 10-11-2024 End: 46-84-7764gznnsdkecl of a patientKen Raymundo DMD Work Phone: Start: 10-11-2024 End: 48-14-4723alrpvftrp - two radiographic imagesKen Raymundo DMD Work Phone: Start: 10-11-2024 End: 56-85-2901Xneqimaxxnzkx of current medicationsKen Raymundo DMD Work Phone: Start: 10-11-2024 End: 12-34-6295Ufkwicg of Tobacco use NarrativeKen Raymundo DMD Work Phone: Start: 10-11-2024 End: 12-81-2383tjafbuirp - periapical each additional radiographic imageKalvarez Raymundo DMD Work Phone: Start: 10-11-2024 End: 98-60-5104ltkc hygiene instructionsKalvarez Raymundo DMD Work Phone: Start: 36-77-6663KY TOMOSYNTHESIS SCREENING BILisa Jack IN STORE MARKETER Work Phone: Start: 06-66-0779ShgzvwxwhnqPzrm Nelsongretel IN STORE MARKETER Work Phone: Start: 34-24-7717ICM,APTIMA HPV,AGE GDLNNiya Santiago IN STORE MARKETER Work Phone: Start: 04-53-3891Peymjgizamt observation [Identifier] in Cervix by Cyto stainNiya Santiago IN STORE MARKETER Work Phone: Start: 16-62-5918P-reactive proteinAmy Shara Liz TRANSCRIPTION.FOOD SAMPLER Work Phone: Start: 62-25-3703GEGEMJALBS BLDAmy M Liz TRANSCRIPTION.FOOD SAMPLER Work Phone: Start: 51-14-7438Fwunzumxubd alanine amino alt sgptAmy M Liz TRANSCRIPTION.FOOD SAMPLER Work Phone: Start: 18-39-1190Pgwlf count complete auto&auto difrntl wbcAmy M Liz TRANSCRIPTION.FOOD SAMPLER Work Phone: Start: 21-63-1979C-reactive proteinAmy M Liz TRANSCRIPTION.FOOD SAMPLER Work Phone: Start: 89-83-0592Ipqee count complete auto&auto difrntl wbcAmy M Liz TRANSCRIPTION.FOOD SAMPLER Work Phone: Start: 28-06-3825A-reactive proteinAmy M Liz TRANSCRIPTION.FOOD SAMPLER Work Phone: Start: 37-09-8600Dkiqg count complete auto&auto difrntl wbcAmy M Liz TRANSCRIPTION.FOOD SAMPLER Work Phone: Start: 65-45-6133Dvacu count complete auto&auto difrntl wbcFariba Hill TRANSCRIPTION.[facility] Work Phone: Start: 68-64-1393Z-reactive proteinFariba Hill TRANSCRIPTION.[facility] Work Phone: Start: hydroxy includes fractions if performedAmy Shara Hill TRANSCRIPTION.[facility] Work Phone: Start: 64-54-2550Fjwod test visual color cmprsn methsAmert Hill TRANSCRIPTION.[facility] Work Phone: Start: 10-67-6714Lmacs test visual color cmprsn methBaldo Hill TRANSCRIPTION.[facility] Work Phone: Start: 09-54-2560Jcvgt test visual color cmprsn methBaldo Hill TRANSCRIPTION.[facility] Work Phone: Start: 73-36-8211Fkvbymclxa exam chest 2 binuTrinity Health Oakland Hospitalaarti Caro PA-C Work Phone: Start: 11-94-2636Kfuxl count complete auto&auto difrntl wbcTosha Almazanelle Maximiliano Work Phone: Start: 47-60-3641Gkbn screen class list aSanali Almazanansley Viera Work Phone: Start: 71-78-9359Wdygo count hemoglobinSunay Tanisha Viera Work Phone: Start: 71-14-8874Urjhq typing serologic rh (d)Tosha Tanisha Viera Work Phone: Start: 50-72-5987Kmzfkhz tolerance test gtt 3 specimensSunancy Viera Work Phone: Start: 58-90-1386Ccfmasyad influenzaTosha Tanisha Viera Work Phone: Start: 80-42-1672Um abdominal real time w/image limitedCarolinenancy Viera TRANSCRIPTION - CNM Work Phone: Start: 57-58-9513Lsnhjfpuabp observation [Identifier] in Cervix by Cyto Maegan Santiago NP Work Phone: Start: 61-98-1031Rfhumtkw screenStart: 12-19-2018 Obstetric panelSusan Tanisha Viera Work Phone: Start: 16-93-9816Jgdjj typing serologic aboSusan Tanisha Viera Work Phone: Start: 76-70-8517Kdnf screen, qualitate/multiSusan Tanisha Viera Work Phone: Start: 45-18-0676Uajyrafqzt microscopic onlyWellmont Health System Work Phone: Start: 88-15-5292Alafu dip stick/tablet rgnt auto w/o microscopyWellmont Health System Work Phone: Start: 51-25-6566Xro prim src wet mount nfct agtWellmont Health System Work Phone: Start: 38-67-2425Lqdgd count complete automatedWellmont Health System Work Phone: Start: 38-95-1800Mipuf typing serologic aboWellmont Health System Work Phone: Start: 16-63-5516Brfmmmtaeenaz metabolic panelWellmont Health System Work Phone: Start: 91-69-3977Zlwvndwjabui chorionic quantitative [facility] Work Phone: Start: 21-13-7137Ajevq depression screening assessment Juan Daniel Leos MD Work Phone: Plan of Treatment DateCare ActivityDetailAuthorStart: 64-90-4060Uilft microalbumin profile [facility] Centertart: 22-65-0710Vnsgnkdld for malignant neoplasm of cervixNOMS HealthcareStart: 29-62-6423Zpgohdwrg for malignant neoplasm of breastUC Medical Centertart: 11-30-2024 End: 83-06-6405Fxavukw encounter bkvxfpdje06/09/2025 9:20 AM EDT Office Visit [facility] [address] [place] [address] Niya Santiago, MARY [address] [place] [address] NOM[facility] FMStart: 95-99-8015Dppc, AmandaVibra [facility] Care [facility] Work Phone: Start: 10-27-2024 End: 74-51-6454TxcnVibra Long Term Acute Care Hospital Work Phone: Start: 10-11-2024 End: 66-01-1578Vnwt nutritional supportOral nutritional supportVibra Long Term Acute Care Hospital Work Phone: Start: 96-44-2169Xyduvtx referralWeight management: Referral to physician timeframe: 6 Months. (related to Body mass index [BMI] 25.0-25.9, adult)[facility] Centertart: 12-83-2571DnrbVibra Long Term Acute Care Hospital Work Phone: Start: 08-24-2024 End: 88-72-6214Acctezn encounter /03/2025 9:20 AM EDT Office Visit [facility] [address] [place] [address] Niya Santiago NP [address] [place] [address] [facility] FMStart: 08-04-2024 End: 06-67-7590Ldwsxzp encounter pcrdajlrl02/13/2025 9:00 AM EDT Office Visit Rheumatology [address] [place] [address] Craig Wade MD [address] [place] [address] Return in about 3 months (around 06/28/2024).RheumatologyComment on above: Return in about 3 months (around 06/28/2024).Start: 07-27-2024 End: 99-72-4002Tornvga encounter /05/2025 9:00 AM EDT Office Visit [facility] [address] [place] [address] Niya Santiago, IN STORE MARKETER [address] [place] [address] [facility] FMStart: 04-26-2024 End: 92-64-1754Qdhisfy encounter ftznczoao38/05/2025 1:00 PM EST Office Visit [facility] [address] [place] [address] Niya Santiago, IN STORE MARKETER [address] [place] [address] [facility] FMStart: 04-03-2024 End: 43-61-6938SAHHD TB SCREENBLOOD TB SCREEN Lab Routine Seropositive rheumatoid arthritis ([facility]) Expected: 04/03/2024, Expires: 07/03/2024leveland ClinicComment on above:Expected: 04/03/2024, Expires: 07/03/2024Start: 04-03-2024 End: 03-60-3923Fqzhpcbtt B virus core Ab [Presence] in SerumHEPATITIS B CORE ANTIBODY TOTAL Lab Routine Seropositive rheumatoid arthritis ([facility]) Expected: 04/03/2024, Expires: 07/03/2024[facility] ClinicComment on above:Expected: 04/03/2024, Expires: 07/03/2024Start: 04-03-2024 End: 61-89-9260Kipcxownb B virus surface Ab [Presence] in SerumHEPATITIS B SURFACE ANTIBODY Lab Routine Seropositive rheumatoid arthritis ([facility]) Expected: 04/03/2024, Expires: 07/03/2024[facility] Work Phone: comment on above:Expected: 04/03/2024, Expires: 07/03/2024Start: 04-03-2024 End: 56-83-4225Dlcqpdpmn B virus surface Ag [Presence] in SerumHEPATITIS B SURFACE ANTIGEN Lab Routine Seropositive rheumatoid arthritis ([facility]) Expected: 04/03/2024, Expires: 07/03/2024[facility] ClinicComment on above:Expected: 04/03/2024, Expires: 07/03/2024Start: 04-03-2024 End: 93-20-2167Xwuzrdcjt C virus Ab [Presence] in SerumHEPATITIS C ANTIBODY IA WITH CONFIRMATION Lab Routine Seropositive rheumatoid arthritis ([facility]) Expected: 04/03/2024, Expires: 07/03/2024[facility] ClinicComment on above:Expected: 04/03/2024, Expires: 07/03/2024Start: 03-31-2024 End: 06-30-2024 reactive protein [Mass/volume] in Serum or PlasmaC-REACTIVE PROTEIN Lab Routine Seropositive rheumatoid arthritis ([facility]) Expected: 03/31/2024, Expires: 06/30/2024[facility] ClinicComment on above:Expected: 03/31/2024, Expires: 06/30/2024Start: 03-31-2024 End: 79-99-6439YEG W Auto Differential panel - BloodCOMPLETE BLOOD COUNT AND DIFFERENTIAL Lab Routine Seropositive rheumatoid arthritis ([facility]) Expected: 03/31/2024, Expires: 06/30/2024[facility] ClinicComment on above:Expected: 03/31/2024, Expires: 06/30/2024Start: 03-31-2024 End: 72-91-7624Ivgqubgskyizm metabolic 2000 panel - Serum or PlasmaCOMPREHENSIVE METABOLIC PANEL Lab Routine Seropositive rheumatoid arthritis ([facility]) Expected: 03/31/2024, Expires: 06/30/2024[facility] Work Phone: comment on above:Expected: 03/31/2024, Expires: 06/30/2024Start: 03-31-2024 End: 07-38-2060Apdoktqtpgu sedimentation rateSEDIMENTATION RATE, WESTERGREN Lab Routine Seropositive rheumatoid arthritis ([facility]) Expected: 03/31/2024, Expires: 06/30/2024[facility] ClinicComment on above:Expected: 03/31/2024, Expires: 06/30/2024Start: 02-28-2024 End: 27-23-1773Gmrqvej encounter /06/2025 10:30 AM EST Procedure Visit [facility] [address] [place] [address] Niya Santiago, IN STORE MARKETER [address] [place] [address] [facility] FMStart: 61-31-2740Avkintbdr for malignant neoplasm of breastMammogramNOMS HealthcareStart: 01-18-2024 End: 74-30-2054Tsahugk encounter nzuvzrtmi52/26/2024 9:40 AM EST Office Visit [facility] [address] [place] [address] Niya Santiago, IN STORE MARKETER [address] [place] [address] [facility] FMStart: 62-24-2282Axbvnrux cancer screenCervical cancer [facility] KYStart: 41-21-2888Ylhrntsol for malignant neoplasm of cervixNOMS HealthcareStart: 11-10-2023 End: 26-90-0294ngynllqypn48/18/2024 11:30 AM EDT Infusion Center Infusion [address] [place] [address] Actemra W7UGditzovcLwcywwd on above:Actemra J9ZClknr: 11-10-2023 End: 10-24-3381Vnxmioh encounter cydnzffwu78/18/2024 11:00 AM EDT Office Visit Rheumatology [address] [place] [address] Fariba Hill APRN.FOOD SAMPLER [address] [place] [address] Add on per Fariba HillRheumatologyComment on above:Add on per Fariba Eldertart: 10-29-2023 End: 87-40-2948bvyxemubsc59/06/2024 7:30 AM EDT Infusion Center Infusion [address] [facility] [place] [address] Actemra A8OXpjlfpqfRojuomn on above:Actemra D4MYiwwp: 26-34-0268Doxcevdfd vaccinationFarmingville ClinicStart: 10-21-2023 End: 47-90-1037MMS W Auto Differential panel - BloodCBC and differential Lab Routine Neutropenia, unspecified (CMS/HCC) Expected: 10/21/2023 (Approximate), Expires: 10/20/2024[facility] Work Phone: Comment on above:Expected: 10/21/2023 (Approximate), Expires: 10/20/2024Start: 10-13-2023 End: 32-78-1718lwjskjdhxm69/21/2024 11:30 AM EDT Infusion Center Infusion [address] [facility] [place] [address] Actemra K3BHqlxgyszUmlcfps on above:Actemra A2YTqtdt: 10-13-2023 End: 82-17-5276Axiqell encounter liqowdfpo17/21/2024 11:00 AM EDT Office Visit Rheumatology [address] [facility] [place] [address] Fariba Hill, TRANSCRIPTION.FOOD SAMPLER [address] [facility] [place] [address] Add on per Fariba HillRheumatologyComment on above:Add on per Fariba Eldertart: 10-01-2023 End: 85-83-8896orhkjymdki11/09/2024 1:30 PM EDT Infusion Center Infusion [address] [facility] [place] [address] Actemra I1OFktawmgvOaqpeka on above:Actemra S4VFexkh: 09-15-2023 End: 78-44-3002Kpsodkc encounter oacgwvnuo91/24/2024 1:00 PM EDT Office Visit Rheumatology [address] [facility] [place] [address] Fariba Hill, TRANSCRIPTION.FOOD SAMPLER [address] [facility] [place] [address] Add on per Fariba EmerickRheumatologyComment on above:Add on per Fariba EmerickStart: 09-03-2023 End: 47-64-5594tqgsueekiu32/12/2024 7:30 AM EDT Infusion Center Infusion [address] [facility] [place] [address] Actemra U8DTyuezdfnNgwyvjk on above:Actemra E9HLzszg: 08-18-2023 End: 68-35-4115lqomsjvdul09/26/2024 11:30 AM EDT Infusion Center Infusion [address] [facility] [place] [address] Actemra Q1BMbgtjnipNtixlel on above:Actemra F6JNadav: 07-21-2023 End: 75-76-7699Pdyuocq encounter vqorrtqif05/29/2024 1:00 PM EDT Office Visit Rheumatology [address] [facility] [place] [address] Fariba Hill, TRANSCRIPTION.FOOD SAMPLER [address] [facility] [place] [address] Add on per Fariba EmerickRheumatologyComment on above:Add on per Fariba EmerickStart: 07-21-2023 End: 86-34-7524hsbtmjbcvl84/29/2024 11:30 AM EDT Infusion Center Infusion [address] [facility] [place] [address] Actemra Q7NKgpmqbzfKprxrnq on above:Actemra P7RWpwfe: 06-23-2023 End: 41-35-5399eoiqgrwrdzYyegmfnjIcijgwy on above:Actemra O2BFwjungu Q4W Needs to be at work at 2:00Start: 06-23-2023 End: 52-10-5654Btnvrfj encounter izjbhgqxa33/01/2024 10:30 AM EDT Office Visit Rheumatology [address] [facility] [place] [address] Fariba Hill, TRANSCRIPTION.FOOD SAMPLER [address] [facility] [place] [address] Add on per Fariba LizRheumatologyComment on above:Add on per Fariba Jerrodtart: 04-13-0774Nudqfkbtxl Health ScreeningBehavioral Health ScreeningUC Medical Centertart: 68-82-4217Bdzdbfjwls AssessmentDepression AssessmentUC Medical Centertart: 01-18-2023 End: 36-60-3375Entvtjf aminotransferase [Enzymatic activity/volume] in Serum or PlasmaALT/SGPT Lab Routine Seropositive rheumatoid arthritis (HCC) Expected: 01/18/2023 (Approximate), Expires: 04/19/2023[facility] Work Phone: Comment on above:Expected: 01/18/2023 (Approximate), Expires: 04/19/2023Start: 01-18-2023 End: 01-91-1019Sdwffzjvw aminotransferase [Enzymatic activity/volume] in Serum or PlasmaAST/SGOT BLD Lab Routine Seropositive rheumatoid arthritis (HCC) Expected: 01/18/2023 (Approximate), Expires: 04/19/2023[facility] Work Phone: Comment on above:Expected: 01/18/2023 (Approximate), Expires: 04/19/2023Start: 01-18-2023 End: 51-72-8702AIC W Auto Differential panel - BloodCBC + DIFF Lab Routine Seropositive rheumatoid arthritis (HCC) Expected: 01/18/2023 (Approximate), E xpires: 04/19/2023[facility] Work Phone: Comment on above:Expected: 01/18/2023 (Approximate), Expires: 04/19/2023Start: 01-18-2023 End: 21-84-1359SRQSQFHCFI BLDCREATININE BLD Lab Routine Seropositive rheumatoid arthritis (HCC) Expected: 01/18/2023 (Approximate), Expires: 04/19/2023[facility] Work Phone: Comment on above:Expected: 01/18/2023 (Approximate), Expires: 04/19/2023Start: 12-12-2022 End: 02-11-2023 reactive protein [Mass/volume] in Serum or PlasmaC-REACTIVE PROTEIN (CRP) Lab Routine Seropositive rheumatoid arthritis (HCC) Expected: 12/12/2022 (Approximate), Expires: 02/11/2023[facility] Work Phone: Comment on above:Expected: 12/12/2022 (Approximate), Expires: 02/11/2023Start: 12-12-2022 End: 50-16-9397BRE W Auto Differential panel - BloodCBC + DIFF Lab Routine Seropositive rheumatoid arthritis ([facility]) Expected: 12/12/2022 (Approximate), E xpires: 02/11/2023[facility] Work Phone: Comment on above:Expected: 12/12/2022 (Approximate), Expires: 02/11/2023Start: 12-12-2022 End: 48-32-5794Tbhgpkgmytnsm metabolic 2000 panel - Serum or PlasmaCOMP METABOLIC PANEL Lab Routine Seropositive rheumatoid arthritis (HCC) Expected: 12/12/2022 (Approximate), Expires: 02/11/2023[facility] Work Phone: Comment on above:Expected: 12/12/2022 (Approximate), Expires: 02/11/2023Start: 12-12-2022 End: 12-62-6406Cdxgucjnxcf sedimentation rateSED RATE WESTERGREN Lab Routine Seropositive rheumatoid arthritis ([facility]) Expected: 12/12/2022 (Approximate), Expires: 02/11/2023[facility] Work Phone: Comment on above:Expected: 12/12/2022 (Approximate), Expires: 02/11/2023Start: 12-11-2022 End: 42-79-1110Yehxjaf aminotransferase [Enzymatic activity/volume] in Serum or PlasmaALT/SGPT Lab Routine Seropositive rheumatoid arthritis (HCC) Expected: 12/11/2022, Expires: [facility] Work Phone: Comment on above:Expected: 12/11/2022, Expires: 03/12/2023Start: 12-11-2022 End: 07-62-6960Lbirvybsx aminotransferase [Enzymatic activity/volume] in Serum or PlasmaAST/SGOT BLD Lab Routine Seropositive rheumatoid arthritis (HCC) Expected: 12/11/2022, Expires: 03/12/2023[facility] Work Phone: Comment on above:Expected: 12/11/2022, Expires: 03/12/2023Start: 32-37-9741Pujyraiyw vaccinationFarmingville ClinicStart: 06-13-2022 End: 37-91-077651488609-ewwkjundkarnix D3 [Mass/volume] in Serum or PlasmaVITAMIN D 25 HYDROXY Lab Routine Vitamin D deficiency Expected: 06/13/2022 (Approximate), Expires: 08/13/2022[facility] Work Phone: Comment on above:Expected: 06/13/2022 (Approximate), Expires: 08/13/2022Start: 06-12-2022 End: 08-12-2022 reactive protein [Mass/volume] in Serum or PlasmaC-REACTIVE PROTEIN (CRP) Lab Routine Seropositive rheumatoid arthritis (HCC) Expected: 06/12/2022 (Approximate), Expires: 08/12/2022[facility] Work Phone: Comment on above:Expected: 06/12/2022 (Approximate), Expires: 08/12/2022Start: 06-12-2022 End: 15-07-5252PRH W Auto Differential panel - BloodCBC + DIFF Lab Routine Seropositive rheumatoid arthritis (HCC) Expected: 06/12/2022 (Approximate), E xpires: 08/12/2022[facility] Work Phone: Comment on above:Expected: 06/12/2022 (Approximate), Expires: 08/12/2022Start: 06-12-2022 End: 10-87-7389Rucmpbdrvbnre metabolic 2000 panel - Serum or PlasmaCOMP METABOLIC PANEL Lab Routine Seropositive rheumatoid arthritis (HCC) Expected: 06/12/2022 (Approximate), Expires: 08/12/2022[facility] Work Phone: Comment on above:Expected: 06/12/2022 (Approximate), Expires: 08/12/2022Start: 06-12-2022 End: 64-24-8286Gzsmigbajcy sedimentation rateSED RATE WESTERGREN Lab Routine Seropositive rheumatoid arthritis (HCC) Expected: 06/12/2022 (Approximate), Expires: 08/12/2022[facility] Work Phone: Comment on above:Expected: 06/12/2022 (Approximate), Expires: 08/12/2022Start: 04-14-2022 End: 083228-yghlqeornxmfhh D3 [Mass/volume] in Serum or PlasmaAultman Hospital Work Phone: Comment on above:Expected: 04/14/2022, Expires: 06/14/2022Start: 09-13-6913OGOTYLYHZV ASSESSMENTDEPRESSION ASSESSMENTUC Medical Centertart: 65-18-0423Ypxtoneiw for malignant neoplasm of cervixMary Bridge Children's HospitalStart: 11-12-2021 End: 832307-cowvpiimfnjomv D3 [Mass/volume] in Serum or PlasmaVITAMIN D 25 HYDROXY Lab Routine Vitamin D deficiency Expected: 11/12/2021, Expires: 01/12/2022[facility] Work Phone: Comment on above:Expected: 11/12/2021, Expires: 01/12/2022tart: 11-12-2021 End: 01-12-2022 reactive protein [Mass/volume] in Serum or PlasmaC-REACTIVE PROTEIN (CRP) Lab Routine Seropositive rheumatoid arthritis (HCC) Expected: 11/12/2021, Expires: 01/12/2022[facility] Work Phone: Comment on above:Expected: 11/12/2021, Expires: 01/12/2022tart: 11-12-2021 End: 92-52-0858AUH W Auto Differential panel - BloodCBC + DIFF Lab Routine Seropositive rheumatoid arthritis (HCC) Expected: 11/12/2021, Expires: [facility] Work Phone: Comment on above:Expected: 11/12/2021, Expires: 01/12/2022tart: 11-12-2021 End: 28-04-5931Xlxqpmxldxfhi metabolic 2000 panel - Serum or PlasmaCOMP METABOLIC PANEL Lab Routine Seropositive rheumatoid arthritis ([facility]) Expected: 11/12/2021, Expires: 01/12/2022[facility] Work Phone: Comment on above:Expected: 11/12/2021, Expires: 01/12/2022tart: 11-12-2021 End: 48-92-0419Fpoznohdivq sedimentation rateSED RATE WESTERGREN Lab Routine Seropositive rheumatoid arthritis ([facility]) Expected: 11/12/2021, Expires: 01/12/2022[facility] Work Phone: Comment on above:Expected: 11/12/2021, Expires: 01/12/2022tart: 58-08-5199Pmrumlclz vaccinationUC Medical Centertart: 09-06-2021 End: 06-42-536316275422-lteykpggqtypex D3 [Mass/volume] in Serum or PlasmaVITAMIN D 25 HYDROXY Lab Routine Vitamin D deficiency Expected: 09/06/2021 (Approximate), Expires: 11/06/2021[facility] Work Phone: Comment on above:Expected: 09/06/2021 (Approximate), Expires: 11/06/2021tart: 09-06-2021 End: 92-52-5371Aturflbbnrbcr metabolic 2000 panel - Serum or PlasmaCOMP METABOLIC PANEL Lab Routine Seropositive rheumatoid arthritis ([facility]) Expected: 09/06/2021 (Approximate), Expires: 11/06/2021[facility] Work Phone: Comment on above:Expected: 09/06/2021 (Approximate), Expires: 11/06/2021tart: 08-16-2021 End: 15-55-6353BQP W Auto Differential panel - BloodCBC + DIFF Lab Routine Seropositive rheumatoid arthritis ([facility]) Expected: 08/16/2021 (Approximate), E xpires: [address] [place] [address] Work Phone: Comment on above:Expected: 08/16/2021 (Approximate), Expires: 10/16/2021tart: 08-16-2021 End: 95-28-4736Fspevborqfonb metabolic 2000 panel - Serum or PlasmaCOMP METABOLIC PANEL Lab Routine Seropositive rheumatoid arthritis (HCC) Expected: 08/16/2021 (Approximate), Expires: [facility] Work Phone: Comment on above:Expected: 08/16/2021 (Approximate), Expires: 10/16/2021tart: 08-58-9332FTIVBYTVVT ASSESSMENTDEPRESSION ASSESSMENT [facility] Centertart: 44-11-8755Yntpgtbko vaccinationFlu vaccine (#1)[facility] Work Phone: start: 07-65-2969Rczyxkflif measurementCreatinine monitoringNewark Hospital, KYStart: 57-14-2826Azwvxbrydw monitoringCreatinine monitoringNewark Hospital, KYStart: 51-05-8339Puqzpgcyf monitoringPotassium monitoringNewark Hospital, KYStart: 20-63-5760Shivbibsfv monitoringCreatinine monitoringNewark Hospital, KYStart: 55-97-9276Sdvydpuag monitoringPotassium monitoringParkview Health [place], [place]Start: 43-26-6438Lvsokfobg vaccinationNewark Hospital, KYStart: 08-29-2019 End: 29-89-8122Kttoidrbll Visit08/29/2019 Visit Obstetrics and Gynecology Tosha Viera APRN - CNM [address] [place] [address] [phone] [facility] GYNECOLOGYStart: 07-26-2019 End: 00-64-6441Zgcvixbjkn Visit07/26/2019 Visit Obstetrics and Gynecology Tosha Viera APRN - [address], [place] [id number] [facility] & GYNECOLOGYStart: 07-13-2019 End: 28-41-0880IonuuukfcChildren's Hospital for Rehabilitation OBSTETRICS & GYNECOLOGYStart: 05-18-2019 End: 88-82-7013EimzqargbMedina Hospital OBSTETRICS & GYNECOLOGYStart: 05-12-2019 End: 00-47-2742NI DUP UPPER EXTREMITY VENOUS LEFTVL DUP UPPER EXTREMITY VENOUS LEFT Imaging Routine Superficial thrombophlebitis of left upper extremity Expected: 05/12/2019, Expires: 05/11/2020[facility]: Expected: 05/12/2019, Expires: 05/11/2020tart: 05-08-2019 End: [id number]ne [facility] OB/GYNStart: 05-02-2019 End: [id number]/10/2020 App[facility]ment [facility] ([facility])Start: 04-24-2019 End: 93-61-3543Wjqnnjx Zizbmhuo04/02/2020 Routine Obstetrics and Gynecology Tosha Viera, TRANSCRIPTION - CNM [address] [facility] [address] [place] [id number] [facility] & GYNECOLOGYStart: 02-28-2019 End: 79-92-5215BkbpqwiTriHealth [facility] OB/GYNStart: 02-13-2019 End: 08-62-7428Ziekzsk Youkpqgj76/23/2019 Routine Obstetrics and Gynecology Tosha Viera APRN - [address] [place] [address] [facility] OB/GYNStart: 01-16-2019 End: 00-45-8427Blopbue Safgjvsh33/25/2019 Routine Obstetrics and Gynecology Tosha Viera, TRANSCRIPTION - [address] [place] [address] [facility] OB/GYNStart: 12-30-2018 Adult depression screening assessmentDEPRESSION SCREENINGUC Medical Centertart: 12-19-2018 End: 17-63-3420Nnmfreb Omcmpnab50/28/2019 Initial Obstetrics and GynecologyC[facility] OB/[facility]NStart: 97-44-2555Nxhddumwj vaccinationFlu vaccine (#1)[facility]ANStart: 35-10-5216YUS TESTINGHPV TESTINGUC Medical Centertart: 15-08-3825Bmgvkgzcj for malignant neoplasm of cervixHPV Testing [facility]: 96-03-2537Cenkimln cancer screenCervical cancer screen [facility]: 19-92-7470OQD TESTINGPAP TESTINGC[facility] Start: 41-46-1957Atycreefq for malignant neoplasm of cervixPap TestingUC Medical Centertart: 48-41-0732PYiW/Tdap/Td vaccine (1 - Tdap)DTaP/Tdap/Td vaccine (1 - Tdap)[facility]: 28-10-9174Psrrtfgru B Vaccine (1 of 3 - 19+ 3- dose series)Hepatitis B Vaccine (1 of 3 - 19+ 3-dose series)[facility] Start: 09-96-0951Dyagefgguger vaccinationPneumococcal Vaccine (1 of 2 - PCV) [facility]: 16-60-5918PUJNPBUV VACCINE (1 of 2)SHINGRIX VACCINE (1 of 2)[facility]: 39-62-2656Jwmoq microalbumin profileDTAP,TDAP,TD (1 - Tdap)[facility]: 96-85-5362Krwjlnp ScreeningAnxiety Screening [facility]: 55-93-7910Frwzqotztf ScreeningDepression Screening [facility]: 69-88-6344Oyfucumvg Vaccine (1 of 2 - 13+ 2-dose series) Varicella Vaccine (1 of 2 - 13+ 2-dose series)[facility]: 24-37-3379LISGP-19 Vaccine (1)COVID-19 Vaccine (1)[facility] Work Phone: start: 52-62-1126ASsF/Tdap/Td vaccine (1 - Tdap) DTaP/Tdap/Td vaccine (1 - Tdap)[facility]: 72-85-8609Hzbxcvowh for malignant neoplasm of cervixCervical Cancer ScreeningUC Medical Centertart: 06-09-2564IDRWRXWOZIGW (1 - PCV)PNEUMOCOCCAL (1 - PCV)[facility]: 17-00-5417Qkmysftovcpe 0-64 years Vaccine (1 of 1 - PPSV23)Pneumococcal 0-64 years Vaccine (1 of 1 - PPSV23)[facility]: 13-78-3838Uzrhngkjcedz 0-64 years Vaccine (1 of 2 - PPSV23)Pneumococcal 0-64 years Vaccine (1 of 2 - PPSV23)[facility] Work Phone: start: 18-31-6560Dnvdfhmwcobv vaccinationUC Medical Centertart: 71-00-7165XUSQC-19 VACCINE (#1)COVID-19 VACCINE (#1)[facility]: 80-37-2424Dslylzhng Vaccine (1 of 2 - 2-dose childhood series) Varicella Vaccine (1 of 2 - 2-dose childhood series)[facility]: 48-69-4669THGTF-19 VACCINE (#1)COVID-19 VACCINE (#1)[facility]: 20-04-1275DHCFCCJJX B (1 of 3 - 3-dose series)HEPATITIS B (1 of 3 - 3-dose series)[facility]: 52-57-0782Htgknxted B Vaccine (1 of 3 - 3-dose series)Hepatitis B Vaccine (1 of 3 - 3-dose series)[facility]25- hydroxyvitamin D3 [Mass/volume] in Serum or PlasmaVITAMIN D 25 HYDROXY Lab Routine Vitamin D deficiency 08/06/2021 1:[facility] Work Phone: 1([phone]) 410-596525027-108844-bimdlvzmemsmaq D3 [Mass/volume] in Serum or Plasma VITAMIN D 25 HYDROXY Lab Routine Vitamin D deficiency 09/03/2021 1:27 PM EDT [facility] Work Phone: [phone]) 512-667525484-282180-xamjnpcqkeghdl D3 [Mass/volume] in Serum or Plasma VITAMIN D 25 HYDROXY Lab Routine Vitamin D deficiency 11/13/2021 1:41 PM EDT [facility] Work Phone: 1(320) 193-944225946-593121-pitcwzmsvxoxql D3 [Mass/volume] in Serum or Plasma VITAMIN D 25 HYDROXY Lab Routine Vitamin D deficiency 06/23/2022 12:40 PM EDT [facility] Work Phone: End: 21-74-0951Qqrlpibo identified Cx Nom (U)Urine Culture Microbiology Routine Encounter for supervision of normal in first trimester, unspecified 1 Occurrences starting 12/19/2018 until 12/19/2018[facility] Comment on above:1 Occurrences starting 12/19/2018 until 12/19/2018Bacteria identified Cx Nom (U)Urine Culture Microbiology Routine Encounter for supervision of normal in first trimester, unspecified 12/19/2018 6:27 PM [facility] reactive protein [Mass/volume] in Serum or PlasmaC-REACTIVE PROTEIN (CRP) Lab Routine Seropositive rheumatoid arthritis ([facility]) 11/13/2021 1:41 PM [facility] Work Phone: C reactive protein [Mass/volume] in Serum or PlasmaC- REACTIVE PROTEIN (CRP) Lab Routine Seropositive rheumatoid arthritis ([facility]) 06/23/2022 12:40 PM [facility] Work Phone: End: 12-19-2018C.trachomatis N.gonorrhoeae DNA, UrineC.trachomatis N.gonorrhoeae DNA, Urine Microbiology Routine Encounter for supervision of normal in first trimester, unspecified 1 Occurrences starting 12/19/2018 until 12/19/2018[facility] HospitalBRIANComment on above:1 Occurrences starting 12/19/2018 until 12/19/2018C.trachomatis N.gonorrhoeae DNA, UrineC.trachomatis N.gonorrhoeae DNA, Urine Microbiology Routine Encounter for supervision of normal in first trimester, unspecified 12/19/2018 6:28 PM [facility] MDCBC W Auto Differential panel - BloodCBC + DIFF Lab Routine Seropositive rheumatoid arthritis ([facility]) 08/06/2021 1:42 PM [facility] Work Phone: CBC W Auto Differential panel - BloodCBC + DIFF Lab Routine Seropositive rheumatoid arthritis ([facility]) 11/13/2021 1:41 PM [facility] Work Phone: Comprehensive metabolic 2000 panel - Serum or Plasma COMP METABOLIC PANEL Lab Routine Seropositive rheumatoid arthritis ([facility]) 08/06/2021 1:42 PM [facility] Work Phone: Comprehensive metabolic 2000 panel - Serum or Plasma COMP METABOLIC PANEL Lab Routine Seropositive rheumatoid arthritis ([facility]) 09/03/2021 1:27 PM [facility] Work Phone: Comprehensive metabolic 2000 panel - Serum or Plasma COMP METABOLIC PANEL Lab Routine Seropositive rheumatoid arthritis ([facility]) 11/13/2021 1:41 PM [facility] Work Phone: Comprehensive metabolic 2000 panel - Serum or Plasma COMP METABOLIC PANEL Lab Routine Seropositive rheumatoid arthritis ([facility]) 06/23/2022 12:40 PM [facility] Work Phone: End: 42-67-3887FEISG-19, PCRCOVID-19, PCR Lab Routine One Time for 1 Occurrences starting 03/15/2020 until 03/15/2020[facility], [place]Comment on above:One Time for 1 Occurrences starting 03/15/2020 until 1COVID-19, PCRCOVID- 19, PCR Lab STAT 03/15/2020 4:30 PM [facility], [place] End: 11-48-6194Shioobf, Strep B Screen, Vaginal/RectalCulture, Strep B Screen, Vaginal/Rectal Microbiology Routine 38 weeks gestation of 1 Occur rences starting 07/06/2019 until 07/06/2019[facility], BRIANComment on above: 1 Occurrences starting 07/06/2019 until 07/06/2019Culture, Strep B Screen, Vaginal/RectalCulture, Strep B Screen, Vaginal/Rectal Microbiology Routine 38 weeks gestation of 07/06/2019 4:09 PM [facility], [place] End: 65-67-1459Gmjvrc Fibrosis Gene TestCystic Fibrosis Gene Test Lab Routine Encounter for supervision of normal in first trimester, unspecified Screening for cystic fibrosis 1 Occurrences starting 12/19/2018 until 12/19/2018[facility], BRIANComment on above:1 Occurrences starting 12/19/2018 until 12/19/2018 End: 38-19-4038Zcdmflzkjsdzs procedure, preparation of smear, genital sourcePAP SMEAR Lab Routine Screening for cervical cancer 1 Occurrences starting 01/16/2019 until 01/16/2019[facility], BRIANComment on above:1 Occurrences starting 01/16/2019 until 01/16/2019Erythrocyte sedimentation rateSED RATE WESTERGREN Lab Routine Seropositive rheumatoid arthritis (HCC) 11/13/2021 1:41 PM [facility] [employer] Work Phone: End: 25-81-4733EMH A/B, MOLECULARFLU A/B, MOLECULAR Microbiology Routine Once for 1 Occurrences starting 04/04/2019 until 04/04/2019[facility]: comment on above:Once for 1 Occurrences starting 04/04/2019 until 04/04/2019FLU A/B, MOLECULARFLU A/B, MOLECULAR Microbiology Routine 04/04/2019 11:47 AM [facility]: End: 24-54-0580Feniwbwds C AntibodyHepatitis C Antibody Lab Routine Encounter for supervision of normal in first trimester, unspecified 1 Occurrences starting 12/19/2018 until 12/19/2018[facility], BRIANComment on above:1 Occurrences starting 12/19/2018 until 12/19/2018Hepatitis C Antibody Hepatitis C Antibody Lab Routine Encounter for supervision of normal in first trimester, unspecified 12/19/2018 6:24 PM [facility] [place] End: 98-58-6105UJH ScreenHIV Screen Lab Routine Encounter for supervision of normal in first trimester, unspecified 1 Occurrences starting 12/19/2018 until 12/19/2018[facility] HospitalBRIANComment on above:1 Occurrences starting 12/19/2018 until 12/19/2018HIV ScreenHIV Screen Lab Routine Encounter for supervision of normal in first trimester, unspecified 12/19/2018 6:24 PM [facility], Scout LabsPRENATAL PROFILE IPRENATAL PROFILE I Lab Routine Encounter for supervision of normal in first trimester, unspecified 12/19/2018 6:28 PM [facility] [facility], [place] End: 23-97-2974Hmuuwkjx Testing for AneuploidyPrenatal Testing for Aneuploidy Lab Routine Encounter for supervision of normal in first trimester, unspecified 1 Occurrences starting 12/19/2018 until 12/19/2018[facility], BRIANComment on above:1 Occurrences starting 12/19/2018 until 12/19/2018Prenatal Testing for AneuploidyPrenatal Testing for Aneuploidy Lab Routine Encounter for supervision of normal in first trimester, unspecified 12/19/2018 6:24 PM [facility], BRIAN RHOGAM ANTEPARTUMRHOGAM ANTEPARTUM Blood Bank Routine Encounter for supervision of other normal in third trimester 29 weeks gestation of 05/01/2019 5:42 PM [facility], KYRHOGAM INJECTION ONLYRHOGAM INJECTION ONLY Blood Bank STAT 12/03/2018 5:56 PM [facility], [place] End: 16-40-1058QMXVKO POSTPARTUMRHOGAM Blood Bank Routine One Time for 1 Occurrences starting 07/12/2019 until 07/12/2019[facility], B[place]AN Comment on above:One Time for 1 Occurrences starting 07/12/2019 until 07/12/2019 End: 45-67-2402QP Extremity - leftUS EXTREMITY MASS/FLUID COLLECTION LEFT Radiology Routine Seropositive rheumatoid arthritis (HCC) Localized superficial swelling, mass, or lump 1 Occurrences starting 04/28/2023 until 05/27/2024 [facility] Work Phone: Comment on above:1 Occurrences starting 04/28/2023 until 05/27/2024US GALLBLADDER RUQUS GALLBLADDER RUQ Imaging Routine Right upper quadrant abdominal pain 2019 11:13 AM [employer] Work Phone: End: 36-83-5376QQ Upper extremity - leftUS ELBOW LEFT Radiology Routine Localized superficial swelling, mass, or lump Seropositive rheumatoid arthritis (HCC) 1 Occurrences starting 04/28/2023 until 05/27/2024[facility] Work Phone: Comment on above:1 Occurrences starting 04/28/2023 until 05/27/2024XR Foot - bilateral AP and Lateral and obliqueXR FOOT GENERAL 3V AP/LAT/OBL BILATERAL Radiology Routine Seropositive rheumatoid arthritis (HCC) 04/14/2022 2:47 PM [facility] Work Phone: End: 99-06-2580RJ FOOT GENERAL 3V AP/LAT/OBL BILATERALXR FOOT GENERAL 3V AP/LAT/OBL BILATERAL Radiology Routine Seropositive rheumatoid arthritis (HCC) 1 Occurrences starting 02/24/[address] [place] [address] Work Phone: Comment on above:1 Occurrences starting 02/24/2022 until 03/26/2023 End: 23-00-8073IW FOOT GENERAL 3V AP/LAT/OBL BILATERALXR FOOT GENERAL 3V AP/LAT/OBL BILATERAL Radiology Routine Seropositive rheumatoid arthritis (HCC) 1 Occurrences starting 02/28/[address] [place] [address] Work Phone: Comment on above:1 Occurrences starting 02/28/2022 until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 Niya Santiago NP - 01/25/2024 6:59 AM ESTAssociated Problem(s): Mild depression (CMS/HCC) Current dose of effexor XR 150mg daily * Niya Santiago NP - 01/25/2024 6:59 AM ESTAssociated Problem(s): Neutropenia, unspecified (CMS/HCC) Was given lab order at last visit to recheck, no results received as of today's visit * Niya Santiago NP - 01/25/2024 6:58 AM ESTAssociated Problem(s): Opioid abuse, uncomplicated (CMS/HCC) Is taking suboxone, provider is Alvin Goes to IOP difficulty with finding time to go Will discuss at next appt as she should be done with IOP at that time and may be able to focus on an appt * Niya Santiago NP - 01/25/2024 6:58 AM ESTAssociated Problem(s): Tobacco user The patient has been advised of the risks of continued smoking: stroke, RI, all forms of cancer, lung disease, and . Options for quitting smoking include: cold turkey, hypnosis, acupuncture, nicotine replacement meds(gum, lozenges, and patches), Buproprion, and Varenicline. At this time pt is encouraged to evaluate their goals for wanting to quit smoking, and reach out toprovider when ready to start this process documented in this [facility]12-03-2024 Instructions* Patient Instructions* Niya Santiago NP - 01/25/2024 2:40 PM EST Get labs completed Schedule PAP smear Will discuss Rheumatology referral when you come back in 3 months documented in this [facility]08-29-2024 History of Present illness Narrative* Niya Santiago NP - 10/21/2023 1:40 PM EDTAssociated Problem(s): Subacute maxillary sinusitis Atb, fluid, rest follow up if not better Will give albuterol refill as well for wheeze Non toxic looking * Niya Santiago NP - 10/21/2023 1:38 PM EDTAssociated Problem(s): Anxiety Continue with effexor * Niya Santiago NP - 10/21/2023 1:38 PM EDTAssociated Problem(s): Rheumatoid arthritis (CMS/HCC) Continue with Rheumatology * Niya Santiago NP - 10/21/2023 1:38 PM EDTAssociated Problem(s): Neutropenia, unspecified (CMS/HCC) Recheck CBC * Niya Santiago NP - 10/21/2023 1:38 PM EDTAssociated Problem(s): Adult ADHD (attention deficit hyperactivity disorder) ([facility]) No changes in meds or doses OARRS reviewed Fu in 3 months * MAR PADRON - 10/21/2023 1:00 PM EDT Possible sinus infection Pt started having symptoms about a week or so ago, ears plugged, blowing nose, green mucus, and headaches in the right eye bow area. Pt also fell going up the stairs last night hurting her right shoulder- tenderness and troubles sleeping last night. * Niya Santiago NP - 10/21/2023 1:00 PM EDT Images from the original note were not included. Any Ludwig is a 38 y.o. female presents with chief complaint of No chief complaint on file. HPI: ADHD This is a chronic problem. The current episode started more than 1 year ago. The problem occurs daily. The problem has been unchanged. Associated symptoms include arthralgias, chest pain, congestion,coughing, headaches and a sore throat. Pertinent negatives [...] breath or suicidal ideas. Symptoms occur occasionally. Theseverity of symptoms is mild. 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 No [...] Visit Adult ADHD (attention deficit hyperactivity disorder) ([facility]) No changes in meds or doses OARRS [...] Rheumatology Tobacco user - Primary Neutropenia, unspecified (CMS/HCC) Recheck CBC Relevant Orders CBC and differential Subacute maxillary sinusitis Atb, fluid, rest follow up if not better Will give albuterol refill as well for wheeze Non toxic looking Relevant Medications amoxicillin-clavulanate (Augmentin) 875-125 MG tablet Wheezing Relevant Medications albuterol HFA (Ventolin HFA) 90 mcg/act inhaler documented in this encounterSouthPointe [id number] Telephone encounter Note* Telephone Encounter - Devi Wagner - 08/17/2023 10:56 AM EDT Spoke with patient Rescheduled due to illness- pt requests Fridays only Scheduled a few out also Devi Wagner August 17, 2023 10:57 AM [facility]06-25-2024 Miscellaneous Notes* Telephone Encounter - Devi Wagner - 08/17/2023 10:56 AM EDT Spoke with patient Rescheduled due to illness- pt requests Fridays only Scheduled a few out also Devi Wagner August 17, 2023 10:57 AM * Telephone Encounter - Devi Wagner - 08/16/2023 4:03 PM EDT LM on informing patient that infusion has been cancelled due to being on antibiotics. Need to reschedule the 08/17 infusion Devi Wagner August 16, 2023 4:04 PM * Telephone Encounter - Yessy Gonzlaez RN - 08/16/2023 3:32 PM EDT Pt scheduled for infusion 08/18/23. Noted pt in ED 08/14/23. Started on antibiotics for ear infection. Please call patient to reschedule infusion 2 weeks after completion of antibiotics. documented in this encounterCleveland Clinic [facility] Hospital06-24-2024 Telephone encounter Note * Telephone Encounter - Devi Wagner - 08/16/2023 4:03 PM EDT LM on informing patient that infusion has been cancelled due to being on antibiotics. Need to reschedule the 08/17 infusion Devi Wagner August 16, 2023 4:04 PM [facility]06-24-2024 Telephone encounter Note* Telephone Encounter - Yessy Gonzalez RN - 08/16/2023 3:32 PM EDT Pt scheduled for infusion 08/18/23. Noted pt in ED 08/14/23. Started on antibiotics for ear infection. Please call patient to reschedule infusion 2 weeks after completion of antibiotics. [facility]05-28-2024 Telephone encounter Note* Telephone Encounter - Yessy Gonzalez RN - 07/20/2023 9:23 AM EDT Spoke with pt, confirmed she will be in for her infusion tomorrow. Denies any issues at this time. [facility]05-28-2024 Miscellaneous Notes* Telephone Encounter - Yessy Gonzalez RN - 07/20/2023 9:23 AM EDT Spoke with pt, confirmed she will be in for her infusion tomorrow. Denies any issues at this time. documented in this encounterCleveland Clinic [facility] Hospital05-06-2024 NoteHNO ID: [id number] Author: ?, ?, ? Service: ? Author Type: ? Type: Progress Notes Filed: 06/28/2023 10:10 Note Text: Called and LMOM for patient to call the office back to get reschedule for her appointment with Fariba Hill and then her Infusion right after. Please warm transfer to [facility] 06-28-2023 History of Present illness Narrative* Yessy Galarza - 06/28/2023 10:09 AM EDT Called and LMOM for patient to call the office back to get reschedule for her appointment with Fariba Hill and then her Infusion right after. Please warm transfer to [facility]. documented in this encounterCleveland Clinic [facility] Hospital05-03-2024 Telephone encounter Note * Telephone Encounter - Yessy Galarza - 06/25/2023 10:15 AM EDT Called and LMOM for patient to call the office back so we can get her rescheduled from her appointment and Infusion on 06/23/2023 that she cancel. Please warm transfer to [facility]05-03-2024 Miscellaneous Notes* Telephone Encounter - Yessy Galarza - 06/25/2023 10:15 AM EDT Called and LMOM for patient to call the office back so we can get her rescheduled from her appointment and Infusion on 06/23/2023 that she cancel. Please warm transfer to [facility] documented in this encounterCleveland Clinic [facility] Hospital04-30-2024 Telephone encounter Note * Telephone Encounter - Yessy Galarza - 06/22/2023 1:44 PM EDT Called patient to get her rescheduled and she is going to go ahead and keep her appointment. Patient will be here for her appointment with Fariba and then get her infusion. [facility]04-30-2024 Miscellaneous Notes* Telephone Encounter - Yessy Galarza - 06/22/2023 1:44 PM EDT Called patient to get her rescheduled and she is going to go ahead and keep her appointment. Patient will be here for her appointment with Fariba and then get her infusion. * Telephone Encounter - Trina Walker RN - 06/22/2023 1:17 PM EDT Spoke with patient on phone. Patient states she needs to reschedule tomorrows infusion do to starting a new job and working tomorrow. Will have scheduling reach out and reschedule infusion. * Telephone Encounter - Trina Walker RN - 06/22/2023 10:12 AM EDT LMOM for patient to call back and confirm scheduled infusion. documented in this encounterCleveland Clinic [facility] Hospital04-30-2024 Telephone encounter Note * Telephone Encounter - Trina Walker RN - 06/22/2023 1:17 PM EDT Spoke with patient on phone. Patient states she needs to reschedule tomorrows infusion do to starting a new job and working tomorrow. Will have scheduling reach out and reschedule infusion. [facility]04-30-2024 Telephone encounter Note* Telephone Encounter - Trina Walker RN - 06/22/2023 10:12 AM EDT LMOM for patient to call back and confirm scheduled infusion. [facility]04-05-2024 Miscellaneous Notes* Telephone Encounter - Korin Puga RN - 05/28/2023 3:19 PM EDT Call placed to patient to inquire how she is feeling since visit to [facility] for wheezing. She states she is feeling better and has had no further issues. James Hill CNP notified. documented in this encounterCleveland Clinic [facility]04-03-2024 Miscellaneous Notes* Addendum Note - Silvia Cooper APRN.CNP - 05/26/2023 3:06 PM EDTAddended by: SILVIA COOPER on: 05/26/2023 03:06 PM Modules accepted: Orders documented in this encounterCleveland Clinic [facility] Hospital04-03-2024 Instructions* Patient Instructions* Silvia Cooper APRN.CNP - 05/26/2023 2:00 PM EDT Albuterol as needed- inhaler sent If needed, only if needed, Prednisone 40 mg once daily x 5 days with food Consider Zyrtec daily until Mothers day or longer Follow up as needed documented in this encounterCleveland Clinic [facility] Hospital04-03-2024 NoteHNO ID: [id number] Author: SILVIA COOPER APRN.CNP Service: ? Author Type: Nurse Practitioner Type: Progress Notes Filed: 05/26/2023 14:15 Note Text: This note was created using Shoefitrriter. Subjective Any Ludwig is a 38 year old female. This 38 year old female present sot [facility] with expiratory wheeze, was in [...] - PREDNISONE 20 MG TABLET Silvia Cooper APRN.[facility]04-03-2024 History of Present illness Narrative* Silvia Cooper APRN.FOOD SAMPLER - 05/26/2023 1:59 PM EDT This note was created using Shoefitrriter. Subjective Any Ludwig is a 38 year old female. This 38 year old female present sot [facility] with expiratory wheeze, was in infusions [...] discharge, ear pain, postnasal drip, rhinorrhea, sinus pressure,sinus pain and sore throat. Respiratory: Positive for cough, chest tightness and wheezing. Negative for shortness of breath andstridor. Cardiovascular: Negative for chest pain. Gastrointestinal: Negative [...] - PREDNISONE 20 MG TABLET Silvia Cooper APRN.ANTHONY documented in this encounterCleveland [facility]04-03-[facility]24 History of Present illness Narrative* Fariba Hill APRN.CNP - 05/26/2023 1:00 PM EDT FOLLOW UP VISIT-in person PCP: Tino Blake MD [address] [place] [address] Ms. Ludwig is a 38 year old [...] for the 30 day free supply. She didnot follow up on the [employer] program, was unclear when asked. With patient's drug addition history, would have to defer from self injectables and needles at home. Due to her problems with transportation and lives far, she is unable to receive IV infusions. She is planning to follow up with local tunnel worker closer to home. Until she has her apt, we offered assistance with her RA care and follow up apt. Advised we can only provide 1 month supply and will need f/u apt for recheck and refill for her safety. We also reviewed importance of follow up with her dentist to evaluate for painful tooth and excludeinfection. Dental infections can be risk for Rheumatoid Arthritis flares as well as concerns for more serious infections. Patient has had multiple unfortunate social and psychologic factors over her lifetime. We are assisting with pastoral worker consult, also to help with adherence [...] which included preparing to see the patient, [id number] patient care, completing clinical documentation, obtaining and/or reviewing separately obtained history, performing a medically appropriate examination, counseling and educating the pat ient/family/caregiver, and ordering medications, tests, or procedures. Fariba [...] CC: Tino Blake MD documented in this encounterCleveland [facility]04-03-2024 NoteHNO ID: [id number] Author: FARIBA HILL APRN.CNP Service: ? Author Type: Nurse Practitioner Type: Progress Notes Filed: 06/07/2023 08:14 Note Text: FOLLOW UP VISIT-in person PCP: Tino Blake MD [address] [place] [address] Ms. 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 Until she has her [...] over her lifetime. We are assisting with pastoral worker consult, also to help with adherence to health care and patient's social support, especially kristie (more content not included)...[facility]04-03-2024 NoteHNO ID: [id number] Author: KORIN PUGA RN Service: ? Author [...] falls? No New rash or open sores? [facility] History of Present illness Narrative* Korin Puga RN - 05/26/2023 11:29 AM EDT Since your last infusion, have you: Had [...] or open sores? No documented in this encounterCleveland Clinic [facility]04-02-2024 Miscellaneous Notes* Telephone Encounter - Yessy Gonzalez RN - 05/25/2023 1:19 PM EDT Spoke with patient; confirmed infusion tomorrow. Denies any issues. * Telephone Encounter - Trina Walker RN - 05/25/2023 9:56 AM EDT LMOM for patient to call back and confirm patient will be in tomorrow for scheduled infusion and has not been ill recently or on ATB. documented in this encounterCleveland Clinic [facility]03-26-2024 Miscellaneous Notes* Telephone Encounter - Santy Mir - 05/18/2023 8:55 AM EDT Called patient on May 18, 2023 at 8:55 AM to schedule their MSK US exam. No answer, left VM, 3rd attempt. * Telephone Encounter - Santy Mir - 05/17/2023 8:28 AM EDT Called patient on May 17, 2023 at 8:28 AM to schedule their MSK US exam. No answer, left VM, 2nd attempt. * Telephone Encounter - Santy Mir - 05/14/2023 2:41 PM EDT Called patient on May 14, 2023 at 2:42 PM to schedule their MSK US exam. No answer, left VM, 1st attempt. * Telephone Encounter - Corinna Kc PCNA - 05/14/2023 2:37 PM EDT Visit Type: ANY MSK Visit Length: 45, 50 OR 60 MINUTES Order Name/Protocol: US EXTREMITY MASS/FLUID COLLECTION LT; EVAL LT POSTERIOR ELBOW FOR RA NODULES Preferred Provider: N/A Comment: Please ask the patient what the size of their masses are and how many then notate the response in the Appointment Note. Location: ANY FACILITY Slot held: N/A documented in this encounterCleveland Clinic [facility]03-22-2024 Miscellaneous Notes* Telephone Encounter - Kylah Clayton - 05/14/2023 2:29 PM EDT Patient has been identified by name and [...] to: self Call patient at: at home [phone] (home) [phone] (cell) Payor: [place] / Plan: [facility] MEDICAID [facility] / Product Type: Medicaid / DIANA Richey documented in this encounterCleveland Clinic [facility]03-06-2024 Miscellaneous Notes* Telephone Encounter - Fariba Hill APRN.CNP - 04/28/2023 4:31 PM EST Corrected please schedule * Telephone Encounter - Yessy Galarza - 04/28/2023 3:13 PM EST Could you please check the Ultrasound of the Left Elbow Thank you Yessy documented in this encounterCleveland Clinic [facility]03-06-2024 History of Present illness Narrative* Yessy Gonzalez RN - 04/28/2023 12:41 PM EST Since your last infusion, have you: Had [...] and L elbow ultrasound. documented in this encounterCleveland Clinic [facility]03-06-2024 History of Present illness Narrative* Fariba Hill, TRANSCRIPTION.FOOD SAMPLER - 04/28/2023 12:14 PM EST FOLLOW UP VISIT-in person PCP: Tino Blake MD [address] [place] [address] Ms. Ludwig is a 38 year old [...] for the 30 day free supply. She didnot follow up on the [employer] program, was unclear when asked. With patient's drug addition history, would have to defer from self injectables and needles at home. Due to her problems with transportation and lives far, she is unable to receive IV infusions. She is planning to follow up with local tunnel worker closer to home. Until she has her apt, we offered assistance with her RA care and follow up apt. Advised we can only provide 1 month supply and will need f/u apt for recheck and refill for her safety. We also reviewed importance of follow up with her dentist to evaluate for painful tooth and excludeinfection. Dental infections can be risk for Rheumatoid Arthritis flares as well as concerns for more serious infections. Patient has had multiple unfortunate social and psychologic factors over her lifetime. We are assisting with pastoral worker consult, also to help with adherence [...] foot pain in July xray at that timeshowed erosions from inflammation. Uric acid at time [...] which included preparing to see the patient, oyjs-ai-foif patient care, completing clinical documentation, obtaining and/or reviewing separately obtained history, performing a medically appropriate examination, counseling and educating the pat ient/family/caregiver, and ordering medications, tests, or procedures. Fariba [...] CC: Tino Blake MD documented in this encounterCleveland Clinic [facility] Hospital02-28-2024 Miscellaneous Notes* Telephone Encounter - Fariba Hill APRN.CNP - 04/21/2023 4:50 PM EST Please change patient schedule going forward with a ov each infusion with me If patients normal time to come is is 1130 Please use my 1100 slot 60min for every infusion with infusion directly following * Telephone Encounter - Yessy Galarza - 04/21/2023 3:06 PM EST LMOM for patient to call the office back Please warm transfer to [facility] * Telephone Encounter - Bailey Turner - 04/21/2023 10:25 AM EST [facility] April appointment has been scheduled as requested. Please let our infusion equipment scheduler(s) know how you would like to proceed for all future infusion visits as requested below by Dr. Leos. Dr. Leos does not have any available openings to accommodate Ms. Ludwig through 2023. Please advise. Thank you, Bailey ORTIZ April 21, 2023 10:25 AM * Telephone Encounter - Fariba Hill APRN.CNP - 04/20/2023 8:15 PM EST Please add her to my schedule 04/27 at 2pm use 60 min virtual and I will try to stop over sometime during her infusion * Telephone Encounter - Juan Daniel Leos MD - 04/20/2023 6:28 PM EST Patient was No Show to her f/u [...] thank you kindly, fa documented in this encounterCleveland Clinic [facility]02-07-2024 History of Present illness Narrative* Trina Walker RN - 03/31/2023 11:50 AM EST Since your last infusion, have you: Had [...] or open sores? No documented in this encounterCleveland Clinic [facility]02-06-2024 Miscellaneous Notes* Telephone Encounter - Na Arevalo RN - 03/30/2023 1:41 PM EST Spoke with patient, she will be in for infusion. Denies infections * Telephone Encounter - Cady Whaley RN - 03/30/2023 10:05 AM EST Called and left message with return number to verify patient will be here tomorrow and is infectionfree and not on antibiotics. documented in this encounterCleveland Clinic [facility] Hospital12-28-2023 Miscellaneous Notes* Telephone Encounter - Yessy Galarza - 02/18/2023 3:51 PM EST Patient has been rescheduled as requested * Telephone Encounter - Yessy Gonzalez RN - 02/18/2023 3:35 PM EST Pt did not show for her infusion today. Please call her to reschedule. * Telephone Encounter - Na Arevalo RN - 2023 1:30 PM EST LMOM for patient to call back regarding infusion for tomorrow * Telephone Encounter - Trina Walker RN - 2023 10:22 AM EST LMOM for patient to confirm patient is coming for infusion tomorrow. * Telephone Encounter - Yessy Gonzalez RN - 02/16/2023 9:58 AM EST VM left for patient to call office to confirm infusion. documented in this encounterCleveland Clinic [facility]12-11-2023 Miscellaneous Notes* Telephone Encounter - Yessy Galarza - 02/01/2023 4:20 PM EST LMOM for patient to call us back to reschedule her infusion . Please warm transfer to [facility] * Telephone Encounter - Yessy Galarza - 02/01/2023 4:20 PM EST ----- Message from Irais Ochoa sent at 02/01/2023 3:13 PM EST ----- Regarding: infusion reschedule Contact: Patient name: Any Ludwig Who is calling: Patient Call back number: [phone] [facility] ordering provider: Dr Mccann Type of infusion: Actemra Patient just needs to reschedule 02/02/23 appt documented in this encounterCleveland Clinic [facility]12-11-2023 Miscellaneous Notes* Telephone Encounter - Na Arevalo RN - 02/01/2023 3:09 PM EST Spoke with patient, she will be in for infusion, denies any signs or symptoms of illness * Telephone Encounter - Na Arevalo RN - 02/01/2023 9:58 AM EST LMOM for patient to call back regarding infusion for tomorrow documented in this encounterCleveland Clinic [facility]11-29-2023 Miscellaneous Notes* Telephone Encounter - Fariba Hill APRN.CNP - 01/20/2023 10:10 AM EST Please increase actemra 8mg/kg every 4 weeks documented in this encounterCleveland Clinic [facility]view Hospital11-29-2023 Instructions* Patient Instructions* Fariba Hill APRN.CNP - 01/20/2023 9:26 AM EST -PLEASE NOTE THAT WE REVIEW ALL YOUR TEST RESULTS AT YOUR NEXT FOLLOW UP VISIT WITH YOU. IF ANY ABNORMAL LAB REQUIRES SOONER ATTENTION, WE WILL CONTACT YOU. -If you have signed up on Cellumen, we will release your test results through Cellumen. Prednisone 20mg ( 4 tablets ) for [...] that features the Whole Plant Based diet, [place] over knives (see video online and visit website). Another movie that was recently released is: Eating You Alive (you can find it at GetYourGuide) Dr. Lisa Armando is a [facility] physician who is an expert in Whole Plant based diet. His website is KRAFTWERK. His research work highlighted the benefits of Whole plant based dietin reversing and preventing heart disease. Consider reading Curly Armando: The Engine 2 Diet, cookbook Mrs. Armando (his ) has a cookbook with many recipes on whole plant based food: The Prevent and Reverse Heart Disease cookbook. Dr. Stephen Martinez, has a website and free keisha to help get started on a whole plant based diet, at Daily Secret.org and the free keisha is 21-Day Vegan Kichicostart with meals and recipes to follow. He has multiple free videos and YouTube, for example: https://youCaravanu.be/[email or web address] , https://youCaravanu.be/[email or web address] Dr. Gordy Farrell has proven starch diet whole plant based and benefit to his Rheumatoid Arthritispatients, his website: Filmakadougall.Transfer To Dr. Maira Bertrand is a renowned scientist immunology, who has studied and researched the benefits of the Whole plant based diet. He has also researched the adverse effects of animal proteins on health. He presents many of his research findings in his book The [place] study. Dr. Maurilio Xie has completed many research trials proving the reversal of diseases with healthy lifestyle and the Whole Plant based diet. Dr. Maurilio Xie website is: [facility] UnDo It a new book by Dr. Maurilio Thomas has dedicated a website and additional time to reviewing all food related articles and research and presents them in his power point presentation and on his website at: nutritionfacts.org Dr. Thomas has multiple free videos and YouTube, for example https://youCaravanu.be/aSgNkhgVtks and https://youCaravanu.be/lXXXygDRyBU. Also, you could find additional information by reading or watching online and YouTube such as: ChefAJ, Cooking With Plants, The Vegan Corner (recipes from an [place] Waste Disposal Leakage Tester), and visiting the [facility] for additional information on the whole plant based benefit and cooking recipes. The Whole Foods Plant Based Cooking Show Athletes such as Kelvin Kan, Antonio Guillermo, Shaheen Mooney YouTube Guilt Free Shaheen Mooney YouTube Guilt Free TV and Hua with Fare Motion. Goodbye Lupus by Kandi Leonard M.D If you suspect you are gluten sensitive or intolerant, consider gluten free diet. Gluten could leadto increased inflammation in the bowels and body in certain patients. Consider organic and non-GMO products when shopping for your food. GMO are genetically modified food that may have adverse impact on our health. 2- Regular Exercise, i.e. beginner yoga Come As You Are: YOGA - Gentle Yoga Anyone Can Do Anywhere www.[facility] reserve hospitalPurpleBricks.com/yoga landon chi, stretching, cardio, gradual strengthening, pool [...] or a higher dose. Raw: Garlic, Cilantro, Tiona nuts, Pumpkin seeds, Escalante seeds and Flax seed powder have been reported to help with certain metal detoxification such as mercury. Cocoa-3 plant based sources: rachana seeds, flax seed powder, flax milk, walnuts. Turmeric can be found natural, used as the spice powder or the root with your food. This is also available as a capsule. Sweet cherries (raw cleaned or frozen) and Turmeric have anti-inflammatory benefit Start reviewing the Whole Plant Based Diet, by watching [place] over Yeti Data movie and then review website. There are many other resources and educational information on the Whole plant based diet on the Internet and documentaries. There are other resources for wellness that you can also benefit from, such as the [facility] website, [facility].org and includes the Mediterranean heart healthy diet and yoga and meditation. Please avoid all dairy products. You could use non-dairy milk such as Flax milk, Cashew milk, [place] milk, Rice milk, Oat milk or Hemp [...] milk, you can use coconut water or plainwater instead. Other smoothies, including green smoothies, are also very healthy and highly anti-inflammatory. Forexample fruits (such as banana or frozen anurag [...] the dose necessary to achieve a Vitamin D25-OH blood level of >31 and preferably closer [...] Recent studies show extra supplements may increase yourrisk of kidney stones or cause high calcium levels in some people. You should discuss how much you should be taking with your doctor before starting them. Further Information is available from the following resources: www.nof.org (National Osteoporosis Foundation) http://www.osteo.org/osteolinks.asp National Institutes of Health: 0-503-089-BONE [facility] Calcium Information [place]: Non-Dairy, Plant based Milk, contain 1 glass = 450 mg of calcium Exampled include Flax Milk, [place] Milk, Cashew Milk Examples of Food Sources of Calcium from [facility] [[facility]] Food Milligrams (mg) per serving Percent DV* Soymilk, calcium-fortified, 8 ounces 299 30 Apache juice, calcium-fortified, 6 ounces 261 26 Tofu, firm, made with calcium sulfate, cup* 253 25 Tofu, soft, made with calcium sulfate, cup* 138 14 Fyyar-zk-wfc cereal, calcium-fortified, 1 cup 100-1,000 10-100 Turnip greens, fresh, boiled, cup 99 10 Kale, raw, chopped, 1 cup 100 10 Kale, fresh, cooked, 1 cup 94 9 Maldivian cabbage, bok gilbert, raw, shredded, 1 cup 74 7 Bread, white, 1 slice 73 7 Tortilla, corn, bjtbv-ka-tvlc/mcgee, one 6 diameter 46 5 Tortilla, flour, tofbr-oe-hxft/mcgee, one 6 diameter 32 3 Bread, whole-wheat, 1 slice 30 3 Broccoli, raw, cup 21 2 * DV = Daily Value. DVs were developed by the U.S. Food and Drug Administration to help consumers compare the nutrient contents among products within the context of a total daily diet. The U.S. Department of Agriculture s (USDA s) Nutrient Database Web site lists the nutrient contentof many foods and provides comprehensive list of [...] You could acces this information online at: http://ods.od.nih.gov/factsheets/Calcium-HealthProfessional/ Vitamin D: Vitamin D3= cholecalciferol, available over the counter. Dose recommended 800 to 1000 iu daily with a meal; Certain patients required 2049-4491 iu daily andin patients deficient in Vitamin D, they require [...] bones. Studies show approximately 50% of [place] men and women are vitamin D deficient in the winter. Milder cases of vitamin D are usually asymptomatic so the only way to know you have a problem is to have a blood level checked. More severe cases can cause osteomalacia(a.k.a. rickets) which can result in bone pain, [...] deficiency or diseases of the liver or kidney.Supplementation in patients with severe deficiency can stabilize or improve bone mineral density and in frail elderly persons, may reduce their risk of falling. Additional Information is available from: www.nof.org (the national osteoporosis foundation) http://www.[facility].org/arthritis/osteo/info.htm http://ods.od.nih.gov/factsheets/vitamind.asp National Institutes of Health: 6-826-113-BONE The Calcium Information [place]: Thank you for choosing [facility] for your healthcare. Sincerely, Fariba Hill APRN.FOOD SAMPLER documented in this encounterCleveland [id number] History of Present illness Narrative* Fariba Hill, TRANSCRIPTION.FOOD SAMPLER - 01/20/2023 9:08 AM EST FOLLOW UP VISIT-in person PCP: Tino Blake MD [address] [place] [address] Ms. 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 She didnot follow up on the [employer] program, was unclear when asked. With patient's drug addition history, would have to defer from self injectables and needles at home. Due to her problems with transportation and lives far, she is unable to receive IV infusions. She is planning to follow up with local tunnel worker closer to home. Until she has her apt, we offered assistance with her RA care and follow up apt. Advised we can only provide 1 month supply and will need f/u apt for recheck and refill for her safety. We also reviewed importance of follow up with her dentist to evaluate for painful tooth and excludeinfection. Dental infections can be risk for Rheumatoid Arthritis flares as well as concerns for more serious infections. Patient has had multiple unfortunate social and psychologic factors over her lifetime. We are assisting with pastoral worker consult, also to help with adherence [...] wrists, right foot. Pred taper for flare toleratedwell in past . podiatry consult for persistent [...] which included preparing to see the patient, klaz-vo-yybw patient care, completing clinical documentation, obtaining and/or reviewing separately obtained history, performing a medically appropriate examination, counseling and educating the pat ient/family/caregiver, and ordering medications, tests, or procedures. Fariba [...] CC: Tino Blake MD documented in this encounterCleveland Clinic [facility] Hospital11-09-2023 History of Present illness Narrative* Prema Mckinney RN - 12/31/2022 11:07 AM EST Since your last infusion, have you: Had [...] or open sores? No documented in this encounterCleveland Clinic [facility] Hospital11-08-2023 Miscellaneous Notes* Telephone Encounter - Khushbu Riddle RN - 12/30/2022 2:46 PM EST Patient calling in to office. Verified by name and . She states that she is infection free and not currently taking any antibiotics. She denies any hospitalizations or changes in health since her last infusion. She will be in tomorrow as scheduled for infusion. * Telephone Encounter - Yessy Gonzalez RN - 12/30/2022 9:55 AM EST VM left for pt to call office to confirm infusion tomorrow. documented in this encounterCleveland Clinic [facility]view Hospital10-27-2023 Miscellaneous Notes* Telephone Encounter - Josefina Alcaraz MA - 12/18/2022 2:26 PM EDT Left message for patient to call office regarding below. sent mychart * Telephone Encounter - Josefina Alcaraz MA - 12/18/2022 2:26 PM EDT Left message for patient to call office regarding below. * Telephone Encounter - Fariba Hill APRN.FOOD SAMPLER - 12/18/2022 2:05 PM EDT Please call patient Normal liver enzymes Will recheck in 1 month May restart arava 10mg daily * Telephone Encounter - Josefina Alcaraz MA - 12/17/2022 3:58 PM EDT Received outside lab results from [facility] AST and ALT results completed on 12/14 ALT: 33 AST: 19 placed on Fariba's desk for review documented in this encounterCleveland Clinic [facility]view Hospital10-23-2023 Miscellaneous Notes* Telephone Encounter - Elizabeth Shelton LPN - 12/14/2022 1:02 PM EDT Lab orders faxed with confirmation to below number. * Telephone Encounter - Soraida Lora - 12/14/2022 12:53 PM EDT [facility] calling about orders. Patient did not give correct fax number. Please re-fax to [phone]. Patient is still waiting at lab. Please advise. DIANA Bethea [place] [employer] (Patient Operations Support Team) Please note: Please do not re-route phone encounters back to this agent, please send to appropriatest. francis at [employer]. Agent works in operations center and cannot complete patient specific tasks. * Telephone Encounter - Josefina Alcaraz MA - 12/14/2022 11:39 AM EDT Fariba from [facility] called to follow up on request -- lab orders faxed to [phone] as requested with confirmation * Telephone Encounter - Komal Nunn - 12/14/2022 9:19 AM EDT Any Ludwig is calling Fariba Hill APRN.CNP today to request Lab Orders be faxed to [facility]. She believes their fax number is [phone]. She states we can call them to verify at [phone]. Please notify pt once orders have been faxed. Patient has been identified by name and birthdate. Duration of symptoms: N/A Person calling: self Call patient at: on cell [phone] (home) [phone] (cell) Was an appointment scheduled: No Closing statement: Results or non-symptom based questions: Thank you for calling [facility], your call will be returned within the next business day. Komal Nunn documented in this encounterC[facility]10-20-2023 Miscellaneous Notes* Telephone Encounter - Fariba Hill APRN.CNP - 12/11/2022 5:37 PM EDT Spoke with patient High liver enzymes Has [...] Abs Lymph 1.00 - 4.00 k/uL 3.92 Upton% % 8.2 Abs Upton <0.87 k/uL 0.65 Eosin% % 2.3 Abs [...] - 20 mm/hr 20 documented in this encounterC[facility]10-04-2023 Miscellaneous Notes* Telephone Encounter - Yessy Galarza - 11/25/2022 10:41 AM EDT LMOM for patient to call the office if she is able to move from Fri to Th. Please warm transfer to [facility] documented in this encounterC[facility]09-22-2023 Miscellaneous Notes* Telephone Encounter - Elizabeth Shelton LPN - 11/13/2022 10:21 AM EDT Left VM that steroid has been sent to pharmacy. * Telephone Encounter - Josefina Alcaraz MA - 11/12/2022 11:35 AM EDT Left message for patient to call office regarding below. * Telephone Encounter - Fariba Hill APRN.CNP - 11/12/2022 9:39 AM EDT Please call patient Steriod taper sent to the pharmacy please update patient * Telephone Encounter - Devi Wagner - 11/11/2022 12:48 PM EDT Patient calling to ask questions re: infusion that was supposed to be for 11/12 but was cancelled due to no approval yet from insurance Please call patient back at [phone] Devi Wagner November 11, 2022 12:49 PM documented in this encounterCleveland Clinic [facility]08-31-2023 History of Present illness Narrative* Na Arevalo RN - 10/22/2022 10:12 AM EDT Since your last infusion, have you: Had [...] and trouble breathing after Avsola was started. Infusionstopped, Fariba Hill CNP and Dr. Hoyos at [...] to drive home, education on new medication givenprior to leaving. documented in this encounterCleveland Clinic [facility] Hospital08-31-2023 Instructions* Patient Instructions* Fariba Hill APRN.ANTHONY - 10/22/2022 9:35 AM EDT -PLEASE NOTE THAT WE REVIEW ALL YOUR TEST RESULTS AT YOUR NEXT FOLLOW UP VISIT WITH YOU. IF ANY ABNORMAL LAB REQUIRES SOONER ATTENTION, WE WILL CONTACT YOU. -If you have signed up on eTobbhart, we will release your test results through Cellumen. Plan to start actemra in 2 weeks [...] that features the Whole Plant Based diet, [place] over knives (see video online and visit website). Another movie that was recently released is: Eating You Alive (you can find it at GetYourGuide) Dr. Lisa Armando is a [facility] physician who is an expert in Whole Plant based diet. His website is KRAFTWERK. His research work highlighted the benefits of Whole plant based dietin reversing and preventing heart disease. Consider reading Rip Brennanjensennancy: The Engine 2 Diet, cookbook Mrs. Armando (his ) has a cookbook with many recipes on whole plant based food: The Prevent and Reverse Heart Disease cookbook. Dr. Stephen Martinez, has a website and free keisha to help get started on a whole plant based diet, at Storyvine and the free keisha is 21-Day 56.comgan Kickstart with meals and recipes to follow. He has multiple free videos and YouTube, for example: https://Sojo Studios.canvs.co/[email or web address] , https://Sojo Studios.canvs.co/HhBPQceer4t Dr. Gordy Farrell has proven starch diet whole plant based and benefit to his Rheumatoid Arthritispatients, his website: ruydoCOCCl.Transfer To Dr. Maira Bertrand is a renowned scientist immunology, who has studied and researched the benefits of the Whole plant based diet. He has also researched the adverse effects of animal proteins on health. He presents many of his research findings in his book The [place] study. Dr. Maurilio Xie has completed many research trials proving the reversal of diseases with healthy lifestyle and the Whole Plant based diet. Dr. Maurilio Xie website is: mignonROR Media.Transfer To UnDo It a new book by Dr. Maurilio Thomas has dedicated a website and additional time to reviewing all food related articles and research and presents them in his power point presentation and on his website at: nutritionfacts.org Dr. Thomas has multiple free videos and YouTube, for example https://Sojo Studios.be/aSgNkhgVtks and https://youFamely.be/lXXXygDRyBU. Also, you could find additional information by reading or watching online and YouTube such as: ChefAJ, Cooking With Plants, The Vegan Corner (recipes from an [place] Waste Disposal Leakage Tester), and visiting the providedwebsites for additional information on the whole plant based benefit and cooking recipes. The Whole Foods Plant Based Cooking Show Athletes such as Kelvin Kan, Antonio Guillermo, Shaheen Mooney YouTube Guilt Free Shaheen Mooney YouTube Guilt Free TV and Hua with Fare Motion. Goodbye Lupus by Kandi Leonard M.D If you suspect you are gluten sensitive or intolerant, consider gluten free diet. Gluten could leadto increased inflammation in the bowels and body in certain patients. Consider organic and non-GMO products when shopping for your food. GMO are genetically modified food that may have adverse impact on our health. 2- Regular Exercise, i.e. beginner yoga Come As You Are: YOGA - Gentle Yoga Anyone Can Do Anywhere www.Happy Inspector/yoga landon chi, stretching, cardio, gradual strengthening, pool [...] or a higher dose. Raw: Garlic, Cilantro, Tiona nuts, Pumpkin seeds, Escalante seeds and Flax seed powder have been reported to help with certain metal detoxification such as mercury. Cocoa-3 plant based sources: rachana seeds, flax seed powder, flax milk, walnuts. Turmeric can be found natural, used as the spice powder or the root with your food. This is also available as a capsule. Sweet cherries (raw cleaned or frozen) and Turmeric have anti-inflammatory benefit Start reviewing the Whole Plant Based Diet, by watching [place] over KnJetSuite movie and then review website. There are many other resources and educational information on the Whole plant based diet on the Internet and documentaries. There are other resources for wellness that you can also benefit from, such as the [facility] website, [facility]org and includes the Mediterranean heart healthy diet and yoga and meditation. Please avoid all dairy products. You could use non-dairy milk such as Flax milk, Cashew milk, [place] milk, Rice milk, Oat milk or Hemp [...] milk, you can use coconut water or plainwater instead. Other smoothies, including green smoothies, are also very healthy and highly anti-inflammatory. Forexample fruits (such as banana or frozen anurag [...] the dose necessary to achieve a Vitamin D25-OH blood level of >31 and preferably closer [...] Recent studies show extra supplements may increase yourrisk of kidney stones or cause high calcium levels in some people. You should discuss how much you should be taking with your doctor before starting them. Further Information is available from the following resources: www.nof.org (National Osteoporosis Foundation) http://www.osteo.org/osteolinks.asp National Institutes of Health: 9-021-366-BONE The Calcium Information [place]: Non-Dairy, Plant based Milk, contain 1 glass = 450 mg of calcium Exampled include Flax Milk, [place] Milk, Cashew Milk Examples of Food Sources of Calcium from NIH Food Milligrams (mg) per serving Percent DV* Soymilk, calcium-fortified, 8 ounces 299 30 Apache juice, calcium-fortified, 6 ounces 261 26 Tofu, firm, made with calcium sulfate, cup* 253 25 Tofu, soft, made with calcium sulfate, cup* 138 14 Epipm-su-zyt cereal, calcium-fortified, 1 cup 100-1,000 10-100 Turnip greens, fresh, boiled, cup 99 10 Kale, raw, chopped, 1 cup 100 10 Kale, fresh, cooked, 1 cup 94 9 Maldivian cabbage, bok gilbert, raw, shredded, 1 cup 74 7 Bread, white, 1 slice 73 7 Tortilla, corn, bcvsq-rh-tdsc/mcgee, one 6 diameter 46 5 Tortilla, flour, qhdln-ng-eigi/mcgee, one 6 diameter 32 3 Bread, whole-wheat, 1 slice 30 3 Broccoli, raw, cup 21 2 * DV = Daily Value. DVs were developed by the U.S. Food and Drug Administration to help consumers compare the nutrient contents among products within the context of a total daily diet. The U.S. Department of Agriculture s (USDA s) Nutrient Database Web site lists the nutrient contentof many foods and provides comprehensive list of [...] You could acces this information online at: http://ods.od.nih.gov/factsheets/Calcium-HealthProfessional/ Vitamin D: Vitamin D3= cholecalciferol, available over the counter. Dose recommended 800 to 1000 iu daily with a meal; Certain patients required 7378-9697 iu daily andin patients deficient in Vitamin D, they require [...] bones. Studies show approximately 50% of [place] men and women are vitamin D deficient in the winter. Milder cases of vitamin D are usually asymptomatic so the only way to know you have a problem is to have a blood level checked. More severe cases can cause osteomalacia(a.k.a. rickets) which can result in bone pain, [...] deficiency or diseases of the liver or kidney.Supplementation in patients with severe deficiency can stabilize or improve bone mineral density and in frail elderly persons, may reduce their risk of falling. Additional Information is available from: www.nof.org (the national osteoporosis foundation) http://www.[facility].org/arthritis/osteo/info.htm http://ods.od.nih.gov/factsheets/vitamind.asp [facility]: 7-087-939-BONE [facility] Calcium Information [place]: Thank you for choosing [facility] for your healthcare. Sincerely, Fariba Hill APRN.ANTHONY documented in this encounterCleveland Clinic [facility]08-31-2023 History of Present illness Narrative* Fariba Hill APRN.CNP - 10/22/2022 9:00 AM EDT FOLLOW UP VISIT-in person PCP: Tino Blake MD [address] [place] [address] Ms. Ludwig is a 37 year old [...] for the 30 day free supply. She didnot follow up on the [employer] program, was unclear when asked. With patient's drug addition history, would have to defer from self injectables and needles at home. Due to her problems with transportation and lives far, she is unable to receive IV infusions. She is planning to follow up with local tunnel worker closer to home. Until she has her apt, we offered assistance with her RA care and follow up apt. Advised we can only provide 1 month supply and will need f/u apt for recheck and refill for her safety. We also reviewed importance of follow up with her dentist to evaluate for painful tooth and excludeinfection. Dental infections can be risk for Rheumatoid Arthritis flares as well as concerns for more serious infections. Patient has had multiple unfortunate social and psychologic factors over her lifetime. We are assisting with pastoral worker consult, also to help with adherence [...] which included preparing to see the patient, nqdn-ot-hgkx patient care, completing clinical documentation, obtaining and/or reviewing separately obtained history, performing a medically appropriate examination, counseling and educating the pat ient/family/caregiver, and ordering medications, tests, or procedures. Fariba [...] CC: Tino Blake MD documented in this encounterC[facility]08-30-2023 Miscellaneous Notes* Telephone Encounter - Yessy Gonzalez RN - 10/21/2022 10:35 AM EDT Spoke with pt; confirmed infusion appt 10/22/22 and appt with Fariba. Denies s/sx of infection or antibiotics or other issues at this time. documented in this encounterCleveland [facility]07-27-2023 History of Present illness Narrative* Prema Mckinney RN - 09/17/2022 9:51 AM EDT Since your last infusion, have you: Had [...] or open sores? No documented in this encounterCleveland Clinic [facility]07-26-2023 Miscellaneous Notes* Telephone Encounter - Na Arevalo RN - 09/16/2022 1:04 PM EDT Spoke with patient, she will be in for infusion * Telephone Encounter - Kathy Owusu - 09/16/2022 12:50 PM EDT Patient returning call, but PSS told that the nurses are all busy. Patient advised that a message would be placed for the nurses to call the patient back. * Telephone Encounter - Yessy Gonzalez RN - 09/16/2022 9:56 AM EDT VM left for pt to call office for below message. documented in this encounterCleveland Clinic [facility] Hospital07-19-2023 Miscellaneous Notes* Telephone Encounter - Yessy Galarza - 09/09/2022 11:20 AM EDT Tried calling patient 3 times and not able to leave a voice mail. If patient calls then we can offer her a sooner appointment. * Telephone Encounter - Fariba Hill APRN.ANTHONY - 09/08/2022 2:13 PM EDT May offer patient sooner infusion appt since approved * Telephone Encounter - Josefina Alcaraz MA - 09/07/2022 3:45 PM EDT (09/02/2022) Time Cycle, Day Action User 10:23 AM Preauthorization Status Changed New Value: Authorized Previous Value: Waiting for Response Rodrigue (Pharmacy HelenLaverne Shea * Telephone Encounter - Fariba Hill APRN.CNP - 08/31/2022 9:11 AM EDT Changing plan to avsola 7.5mg /kg every 8 weeks Please expedite approval Patient is on for infusion tomorrow In process of updating plan * Telephone Encounter - Carol Lauren - 08/28/2022 9:39 AM EDT Images from the original note were not included. === PHARMACY TEAM ==== AUTHORIZATION DENIED Denial Reason: Denial upheld on appeal Payor: [place] [employer] Date of Service: 09.01.22 Received Denial Via: Portal AvailArtabase Presser Hand Name / Call Ref #: na / na Drug name(s) & HCPCS code(s): Yosef Dx Code: [id number] rheumatoid arthritis Comment: Next step is a State Hearing, see onbased letter. * Telephone Encounter - Shaheen Byrd MA - 08/26/2022 7:39 AM EDT submitted 9 days ago. could take 15 to hear back === PHARMACY TEAM ==== ADDITIONAL INFORMATION NEEDED/REQUESTED Case Submitted: Yes Request Type: Payor Date of Service: TBD Additional Information Needed: Appeal submitted via availity Request from Payor by: N/A Email Sent to: updated te in [facility] Requested Clinicals/Information Sent: mn letter, and all notes with original submission. Appeal ID is [id number] ETO is 15 days from today Onbased appeal acknowledgement letter. * Telephone Encounter - Fariba Hill APRN.CNP - 08/13/2022 1:10 PM EDT Letter created please submit thanks * Telephone Encounter - Carol Lauren - 08/13/2022 8:58 AM EDT === PHARMACY TEAM ==== Case Note/ Misc Comment Has appeal been submitted? If not, I can submit an appeal letter if provided via Par[employer]itX portal for Reference# [id number]. * Telephone Encounter - Fariba Hill APRN.CNP - 08/06/2022 3:29 PM EDT I spoke with peer to peer Will need to appeal [phone] Please ask for expedited appeal Avsola 5mg/kg every 5 weeks This is continued treatment * Telephone Encounter - Shaheen Byrd MA - 08/06/2022 8:45 AM EDT last 3 visits faxed as requested, confirmation received * Telephone Encounter - Fariba Hill APRN.CNP - 08/06/2022 8:21 AM EDT Please fax last 2-3 office notes Attention- [place] Include patient name and on cover sheet Peer to peer will call me in 24- 48 hours * Telephone Encounter - Carol Lauren - 08/05/2022 4:14 PM EDT Images from the original note were not included. === PHARMACY TEAM ==== PEER TO PEER/APPEAL REQUESTED PROVIDER TO COMPLETE P2P or Appeal: P2P Payer: [place] MCD DOS: 23 Drug Name(s) & HCPCS/CPTCode(s): Avsola Q5121 Dx code(s) submitted: M05.9 Seropositive rheumatoid arthritis Provider: JUAN DANIEL LEOS Peer to Peer/Appeal reason: Timeframe to complete: grace Date sent to provider: 08.05.22 Courtesy page sent (PRN): No documented in this encounterC[facility] Clinic [facility] Hospital07-10-2023 Miscellaneous Notes* Telephone Encounter - Yessy Galarza - 08/31/2022 4:20 PM EDT Patient has been rescheduled as requested * Telephone Encounter - Fariba Hill APRN.CNP - 08/31/2022 4:18 PM EDT Sent RX Prednisone Take 2 tablets by mouth once daily for 14 days, THEN 1 tablet once daily for 14 days. With breakfast. Then stop. No other nsaids.. * Telephone Encounter - Na Arevalo RN - 08/31/2022 4:01 PM EDT Per Prior Auth department authorization has not been received for infusion for tomorrow. Requestingthat we push infusion out 10 days to allow for authorization. PSS-please call patient and assist with rescheduling. Pt notified and verbalized understanding. She is requesting for some steroids be sent because she is having a lot of pain at this time. documented in this encounterCleveland Clinic [facility] Hospital05-01-2023 Miscellaneous Notes* Telephone Encounter - Korin Puga RN - 06/22/2022 10:33 AM EDT Call placed to patient to confirm she will be here for tomorrow's infusion and has had no recent infection with no answer. LMOM to call back or send my chart. documented in this encounterCleveland Clinic [facility]03-07-2023 Instructions* Patient Instructions* Fariba Hill APRN.CNP - 04/28/2022 1:04 PM EST -PLEASE NOTE THAT WE REVIEW ALL YOUR TEST RESULTS AT YOUR NEXT FOLLOW UP VISIT WITH YOU. IF ANY ABNORMAL LAB REQUIRES SOONER ATTENTION, WE WILL CONTACT YOU. -If you have signed up on Cellumen, we will release your test results through Cellumen. Increase inflxiamab every 5 weeks 5mg/kg arava [...] that features the Whole Plant Based diet, [place] over knives (see video online and visit website). Another movie that was recently released is: Eating You Alive (you can find it at GetYourGuide) Dr. Lisa Armando is a [facility] physician who is an expert in Whole Plant based diet. His website is KRAFTWERK. His research work highlighted the benefits of Whole plant based dietin reversing and preventing heart disease. Consider reading Rip Prabha: The Engine 2 Diet, cookbook Mrs. Armando (his ) has a cookbook with many recipes on whole plant based food: The Prevent and Reverse Heart Disease cookbook. Dr. Stephen Martinez, has a website and free keisha to help get started on a whole plant based diet, at Daily Secret.org and the free keisha is 21-Day Vegan Kickstart with meals and recipes to follow. He has multiple free videos and YouTube, for example: https://youtu.be/rivQcdnK1v0 , https://youtu.be/XyPLXtmlt3s Dr. Gordy Farrell has proven starch diet whole plant based and benefit to his Rheumatoid Arthritispatients, his website: ruydolakisha.Transfer To Dr. Maira Bertrand is a renowned scientist immunology, who has studied and researched the benefits of the Whole plant based diet. He has also researched the adverse effects of animal proteins on health. He presents many of his research findings in his book The [place] study. Dr. Maurilio Xie has completed many research trials proving the reversal of diseases with healthy lifestyle and the Whole Plant based diet. Dr. Maurilio Xie website is: mignonROR Media.Transfer To UnDo It a new book by Dr. Maurilio Thomas has dedicated a website and additional time to reviewing all food related articles and research and presents them in his power point presentation and on his website at: nutritionfacts.org Dr. Thomas has multiple free videos and YouTube, for example https://youFamely.canvs.co/aSgNkhgVtks and https://Sojo Studios.canvs.co/lXXXygDRyBU. Also, you could find additional information by reading or watching online and YouTube such as: [employer], Cooking With Plants, The Vegan Corner (recipes from an [place] Waste Disposal Leakage Tester), and visiting the providedwebsites for additional information on the whole plant based benefit and cooking recipes. The Whole Foods Plant Based Cooking Show Athletes such as Kelvin Kan, Antonio Guillermo, Shaheen Mooney YouTube Guilt Free Shaheen Mooney YouTube Guilt Free TV and Hua with Fare Motion. Goodbye Lupus by Kandi Leonard M.D If you suspect you are gluten sensitive or intolerant, consider gluten free diet. Gluten could leadto increased inflammation in the bowels and body in certain patients. Consider organic and non-GMO products when shopping for your food. GMO are genetically modified food that may have adverse impact on our health. 2- Regular Exercise, i.e. beginner yoga Come As You Are: YOGA - Gentle Yoga Anyone Can Do Anywhere www.Startupbootcamp FinTech.Transfer To/yoga landon chi, stretching, cardio, gradual strengthening, pool [...] or a higher dose. Raw: Garlic, Cilantro, Tiona nuts, Pumpkin seeds, Escalante seeds and Flax seed powder have been reported to help with certain metal detoxification such as mercury. Cocoa-3 plant based sources: rachana seeds, flax seed powder, flax milk, walnuts. Turmeric can be found natural, used as the spice powder or the root with your food. This is also available as a capsule. Sweet cherries (raw cleaned or frozen) and Turmeric have anti-inflammatory benefit Start reviewing the Whole Plant Based Diet, by watching [place] over Yeti Data movie and then review website. There are many other resources and educational information on the Whole plant based diet on the Internet and documentaries. There are other resources for wellness that you can also benefit from, such as the [facility] website, [facility]org and includes the Mediterranean heart healthy diet and yoga and meditation. Please avoid all dairy products. You could use non-dairy milk such as Flax milk, Cashew milk, [place] milk, Rice milk, Oat milk or Hemp [...] milk, you can use coconut water or plainwater instead. Other smoothies, including green smoothies, are also very healthy and highly anti-inflammatory. Forexample fruits (such as banana or frozen anurag [...] the dose necessary to achieve a Vitamin D25-OH blood level of >31 and preferably closer [...] Recent studies show extra supplements may increase yourrisk of kidney stones or cause high calcium levels in some people. You should discuss how much you should be taking with your doctor before starting them. Further Information is available from the following resources: www.nof.org (National Osteoporosis Foundation) http://www.osteo.org/osteolinks.asp National Institutes of Health: 8-634-935-BONE The Calcium Information [place]: Non-Dairy, Plant based Milk, contain 1 glass = 450 mg of calcium Exampled include Flax Milk, [place] Milk, Cashew Milk Examples of Food Sources of Calcium from NIH Food Milligrams (mg) per serving Percent DV* Soymilk, calcium-fortified, 8 ounces 299 30 [place] juice, calcium-fortified, 6 ounces 261 26 Tofu, firm, made with calcium sulfate, cup* 253 25 Tofu, soft, made with calcium sulfate, cup* 138 14 Lfkcl-hx-quj cereal, calcium-fortified, 1 cup 100-1,000 10-100 Turnip greens, fresh, boiled, cup 99 10 Kale, raw, chopped, 1 cup 100 10 Kale, fresh, cooked, 1 cup 94 9 Maldivian cabbage, bok gilbert, raw, shredded, 1 cup 74 7 Bread, white, 1 slice 73 7 Tortilla, corn, xjsky-xp-paaw/mcgee, one 6 diameter 46 5 Tortilla, flour, qgqbp-uk-sdii/mcgee, one 6 diameter 32 3 Bread, whole-wheat, 1 slice 30 3 Broccoli, raw, cup 21 2 * DV = Daily Value. DVs were developed by the U.S. Food and Drug Administration to help consumers compare the nutrient contents among products within the context of a total daily diet. The U.S. Department of Agriculture s (USDA s) Nutrient Database Web site lists the nutrient contentof many foods and provides comprehensive list of [...] You could acces this information online at: http://ods.od.nih.gov/factsheets/Calcium-HealthProfessional/ Vitamin D: Vitamin D3= cholecalciferol, available over the counter. Dose recommended 800 to 1000 iu daily with a meal; Certain patients required 7180-6008 iu daily andin patients deficient in Vitamin D, they require [...] bones. Studies show approximately 50% of [place] men and women are vitamin D deficient in the winter. Milder cases of vitamin D are usually asymptomatic so the only way to know you have a problem is to have a blood level checked. More severe cases can cause osteomalacia(a.k.a. rickets) which can result in bone pain, [...] deficiency or diseases of the liver or kidney.Supplementation in patients with severe deficiency can stabilize or improve bone mineral density and in frail elderly persons, may reduce their risk of falling. Additional Information is available from: www.nof.org (the national osteoporosis foundation) http://www.[facility].org/arthritis/osteo/info.htm http://ods.od.nih.gov/factsheets/vitamind.asp National Institutes of Health: 9-705-106-BONE [facility] Calcium Information [place]: Thank you for choosing [facility] for your healthcare. Sincerely, Fariba Hill APRN.ANTHONY documented in this encounterCleveland Clinic [facility]03-07-2023 History of Present illness Narrative* Fariba Hill APRN.CNP - 04/28/2022 9:39 AM EST FOLLOW UP VISIT-telephone PCP: Tino Blake MD [address] [place] [address] Ms. Ludwig is a 37 year old [...] for the 30 day free supply. She didnot follow up on the [employer] program, was unclear when asked. With patient's drug addition history, would have to defer from self injectables and needles at home. Due to her problems with transportation and lives far, she is unable to receive IV infusions. She is planning to follow up with local tunnel worker closer to home. Until she has her apt, we offered assistance with her RA care and follow up apt. Advised we can only provide 1 month supply and will need f/u apt for recheck and refill for her safety. We also reviewed importance of follow up with her dentist to evaluate for painful tooth and excludeinfection. Dental infections can be risk for Rheumatoid Arthritis flares as well as concerns for more serious infections. Patient has had multiple unfortunate social and psychologic factors over her lifetime. We are assisting with pastoral worker consult, also to help with adherence [...] only. Patient agrees the this plan PLAN/RECOMMENDATIONS: [facility] on 04/28/22 predniSONE (DELTASONE) 5 mg [...] CC: Tino Blake MD documented in this encounterCleveland Clinic [facility]02-23-2023 Miscellaneous Notes* Telephone Encounter - Josefina Alcaraz MA - 04/16/2022 9:20 AM EST sent via [employer] rx resent to local pharmacy Pharmacy Information Pharmacy Address Telephone [id number] [place] [address] * Telephone Encounter - Josefina Alcaraz MA - 04/16/2022 9:15 AM EST Unable to reach pt, no ans, vm full will send via [employer] * Telephone Encounter - Cathryn Peralta RN - 04/15/2022 7:47 PM EST -attempted to call pt and VM full -try again or send [employer] * Telephone Encounter - Fariba Hill APRN.CNP - 04/15/2022 7:18 PM EST Please call patient -Please advise patient of low vitamin D blood levels. Patients with Vitamin D deficiency may experience increased bone and body pains, fatigue, increasedrisk for fractures among other health problems. It [...] bld. tests in 8 wks (orders in [place]) -Once patient has completed the 8 wk treatment, it is recommended to continue on maintenance therapy to keep the Vit D from dropping again. I recommend patient takes over the counter, Vitamin D3: 2000 international units once daily with a meal. Thank you kindly, Fariba Hill APRN.FOOD SAMPLER documented in this encounterCleveland Clinic [facility]02-21-2023 History of Present illness Narrative* Na Arevalo RN - 04/14/2022 11:20 AM EST Since your last infusion, have you: Had [...] or open sores? No documented in this encounterCleveland Clinic [facility]view Hospital02-21-2023 Instructions* Patient Instructions* Fariba Hill APRN.[facility] - 04/14/2022 10:44 AM EST -PLEASE NOTE THAT WE REVIEW ALL YOUR TEST RESULTS AT YOUR NEXT FOLLOW UP VISIT WITH YOU. IF ANY ABNORMAL LAB REQUIRES SOONER ATTENTION, WE WILL CONTACT YOU. -If you have signed up on Cellumen, we will release your test results through Cellumen. Increase inflxiamab every 5 weeks 5mg/kg arava [...] that features the Whole Plant Based diet, [place] over knives (see video online and visit website). Another movie that was recently released is: Eating You Alive (you can find it at GetYourGuide) Dr. Lisa Armando is a [facility] physician who is an expert in Whole Plant based diet. His website is KRAFTWERK. His research work highlighted the benefits of Whole plant based dietin reversing and preventing heart disease. Consider reading Curly Armando: The Engine 2 Diet, cookbook Mrs. Armando (his ) has a cookbook with many recipes on whole plant based food: The Prevent and Reverse Heart Disease cookbook. Dr. Stephen Martinez, has a website and free keisha to help get started on a whole plant based diet, at Daily Secret.org and the free keisha is 21-Day Vemamadou Chaoart with meals and recipes to follow. He has multiple free videos and YouTube, for example: https://youCaravanu.be/[email or web address] , https://[email or web address] Dr. Gordy Farrell has proven starch diet whole plant based and benefit to his Rheumatoid Arthritispatients, his website: ruydougall.Transfer To Dr. Maira Bertrand is a renowned scientist immunology, who has studied and researched the benefits of the Whole plant based diet. He has also researched the adverse effects of animal proteins on health. He presents many of his research findings in his book The [place] study. Dr. Maurilio Xie has completed many research trials proving the reversal of diseases with healthy lifestyle and the Whole Plant based diet. Dr. Maurilio Xie website is: [employer] [facility] [employer] UnDo It a new book by Dr. Maurilio Thomas has dedicated a website and additional time to reviewing all food related articles and research and presents them in his power point presentation and on his website at: nutritionfacts.org Dr. Thomas has multiple free videos and YouTube, for example https://youCaravanu.be/aSgNkhgVtks and [email or web address]. Also, you could find additional information by reading or watching online and YouTube such as: ChefAJ, Cooking With Plants, The Vegan Corner (recipes from an [place] Waste Disposal Leakage Tester), and visiting the [facility] for additional information on the whole plant based benefit and cooking recipes. The Whole Foods Plant Based Cooking Show Athletes such as Kelvin Kan, Antonio Guillermo, Shaheen Mooney YouTube Guilt Free Shaheen Mooney YouTube Guilt Free TV and Hua with Fare Motion. Goodbye Lupus by Kandi Leonard M.D If you suspect you are gluten sensitive or intolerant, consider gluten free diet. Gluten could leadto increased inflammation in the bowels and body in certain patients. Consider organic and non-GMO products when shopping for your food. GMO are genetically modified food that may have adverse impact on our health. 2- Regular Exercise, i.e. beginner yoga Come As You Are: YOGA - Gentle Yoga Anyone Can Do Anywhere www.phippsburgSiriusDecisions.Transfer To/yoga landon chi, stretching, cardio, gradual strengthening, pool [...] or a higher dose. Raw: Garlic, Cilantro, Tiona nuts, Pumpkin seeds, Escalante seeds and Flax seed powder have been reported to help with certain metal detoxification such as mercury. Cocoa-3 plant based sources: rachana seeds, flax seed powder, flax milk, walnuts. Turmeric can be found natural, used as the spice powder or the root with your food. This is also available as a capsule. Sweet cherries (raw cleaned or frozen) and Turmeric have anti-inflammatory benefit Start reviewing the Whole Plant Based Diet, by watching [place] over Yeti Data movie and then review website. There are many other resources and educational information on the Whole plant based diet on the Internet and documentaries. There are other resources for wellness that you can also benefit from, such as the [facility] website, [facility]org and includes the Mediterranean heart healthy diet and yoga and meditation. Please avoid all dairy products. You could use non-dairy milk such as Flax milk, Cashew milk, [place] milk, Rice milk, Oat milk or Hemp [...] milk, you can use coconut water or plainwater instead. Other smoothies, including green smoothies, are also very healthy and highly anti-inflammatory. Forexample fruits (such as banana or frozen anurag [...] the dose necessary to achieve a Vitamin D25-OH blood level of >31 and preferably closer [...] Recent studies show extra supplements may increase yourrisk of kidney stones or cause high calcium levels in some people. You should discuss how much you should be taking with your doctor before starting them. Further Information is available from the following resources: www.nof.org (National Osteoporosis Foundation) http://www.osteo.org/osteolinks.asp [place] Institutes of Health: 4-773-524-BONE [facility] Calcium Information [place]: Non-Dairy, Plant based Milk, contain 1 glass = 450 mg of calcium Exampled include Flax Milk, [place] Milk, Cashew Milk Examples of Food Sources of Calcium from [facility] [[email or web address]] Food Milligrams (mg) per serving Percent DV* Soymilk, calcium-fortified, 8 ounces 299 30 Apache juice, calcium-fortified, 6 ounces 261 26 Tofu, firm, made with calcium sulfate, cup* 253 25 Tofu, soft, made with calcium sulfate, cup* 138 14 Cnodg-xv-nph cereal, calcium-fortified, 1 cup 100-1,000 10-100 Turnip greens, fresh, boiled, cup 99 10 Kale, raw, chopped, 1 cup 100 10 Kale, fresh, cooked, 1 cup 94 9 Maldivian cabbage, bok gilbert, raw, shredded, 1 cup 74 7 Bread, white, 1 slice 73 7 Tortilla, corn, bezdq-va-miqs/mcgee, one 6 diameter 46 5 Tortilla, flour, crzvr-mp-pgcw/mcgee, one 6 diameter 32 3 Bread, whole-wheat, 1 slice 30 3 Broccoli, raw, cup 21 2 * DV = Daily Value. DVs were developed by the U.S. Food and Drug Administration to help consumers compare the nutrient contents among products within the context of a total daily diet. The U.S. Department of Agriculture s (USDA s) Nutrient Database Web site lists the nutrient contentof many foods and provides comprehensive list of [...] You could acces this information online at: http://ods.od.nih.gov/factsheets/Calcium-HealthProfessional/ Vitamin D: Vitamin D3= cholecalciferol, available over the counter. Dose recommended 800 to 1000 iu daily with a meal; Certain patients required 0258-7945 iu daily andin patients deficient in Vitamin D, they require [...] bones. Studies show approximately 50% of [place] men and women are vitamin D deficient in the winter. Milder cases of vitamin D are usually asymptomatic so the only way to know you have a problem is to have a blood level checked. More severe cases can cause osteomalacia(a.k.a. rickets) which can result in bone pain, [...] deficiency or diseases of the liver or kidney.Supplementation in patients with severe deficiency can stabilize or improve bone mineral density and in frail elderly persons, may reduce their risk of falling. Additional Information is available from: www.nof.org (the national osteoporosis foundation) http://www.[facility].org/arthritis/osteo/info.htm http://ods.od.nih.gov/factsheets/vitamind.asp National Institutes of Health: 3-264-088-BONE The Calcium Information [place]: Thank you for choosing [facility] for your healthcare. Sincerely, Fariba Hill APRN.FOOD SAMPLER documented in this encounterCleveland Clinic [facility]view Hospital02-21-2023 History of Present illness Narrative* Fariba Hill, [place].FOOD SAMPLER - 04/14/2022 10:30 AM EST FOLLOW UP VISIT-in person PCP: Tino Blake MD [address] [place] [address] Ms. Ludwig is a 37 year old [...] for the 30 day free supply. She didnot follow up on the [employer] program, was unclear when asked. With patient's drug addition history, would have to defer from self injectables and needles at home. Due to her problems with transportation and lives far, she is unable to receive IV infusions. She is planning to follow up with local tunnel worker closer to home. Until she has her apt, we offered assistance with her RA care and follow up apt. Advised we can only provide 1 month supply and will need f/u apt for recheck and refill for her safety. We also reviewed importance of follow up with her dentist to evaluate for painful tooth and excludeinfection. Dental infections can be risk for Rheumatoid Arthritis flares as well as concerns for more serious infections. Patient has had multiple unfortunate social and psychologic factors over her lifetime. We are assisting with pastoral worker consult, also to help with adherence to health care and patient's social support, especially that now she is caring for her infant, as a single mother. Rheumatoid arthritis is active at todays visit. Infliximab due today. Arava 10mg daily. Interim flares flaring 2 weeks prior to next visit. Synovitis in multiple joints. Swelling MTP leftfoot, and right foot pain, synovitis has improved [...] which included preparing to see the patient, fitb-zo-eudm patient care, completing clinical documentation, obtaining and/or reviewing separately obtained history, performing a medically appropriate examination, counseling and educating the pat ient/family/caregiver, and ordering medications, tests, or procedures. Portions [...] CC: Tino Blake MD documented in this encounterCleveland Clinic [facility]view Hospital01-16-2023 Miscellaneous Notes* Telephone Encounter - Maria R Padilla MA - 03/09/2022 8:59 AM EST Most recent Rheumatology visit: 01/05/2022 (with Fariba Hill) Recent Office Visits - This Specialty 01/05/2022 Seropositive rheumatoid arthritis (HCC) Rheumatology Fariba Hill APRN.ANTHONY 10/29/2021 Seropositive rheumatoid arthritis (HCC) Rheumatology Fariba Hill APRN.CNP 07/23/2021 Seropositive rheumatoid arthritis (HCC) Rheumatology Fariba Hill APRN.CNP Upcoming Rheumatology Appointments - Next 365 Days Visit Type Date Time Department [facility] 04/14/2022 10:30 AM [facility] CBC: CBC Latest Ref Rng & [...] Maria R Padilla MA documented in this encounterCleveland Clinic Fairview Hospital01-09-2023 Miscellaneous Notes* Telephone Encounter - Shaheen Byrd MA - 03/02/2022 9:23 AM EST mailed as requested * Telephone Encounter - Fariba Hill APRN.ANTHONY - 02/28/2022 8:49 PM EST Ordered please mail * Telephone Encounter - Elizabeth Shelton LPN - 02/27/2022 11:19 AM EST Spoke with pt regarding below. Verbalized understanding. Patient would like to get xrays done closer to home. Please mail to home address when order placed. * Telephone Encounter - Shaheen Byrd MA - 02/26/2022 1:32 PM EST Left message with for patient to call back. * Telephone Encounter - Fariba Hill APRN.ANTHONY - 02/25/2022 3:48 PM EST Please call patient Cbc and cmp normal [...] Abs Lymph 1.00 - 4.00 k/uL 3.03 Upton% % 8.0 Abs Upton <0.87 k/uL 0.49 Eosin% % 4.6 Abs [...] 20 mm/hr 29 (H) documented in this encounterCleveland Clinic Fairview Hospital01-03-2023 History of Present illness Narrative* Alexa Choudhary RN - 02/24/2022 1:01 PM EST Pt at end of infusion c/o swelling and bump on her left foot. She was asking about surgical intervention, or perhaps block, or draining. Fariba Hill FOOD SAMPLER was consulted. Orders were placed for pt to gohave her feet xrayed. Pt was directed over to xray for same day. She verbalized understanding. * Alexa Choudhary RN - 02/24/2022 10:26 AM EST Since your last infusion, have you: Had [...] or open sores? No documented in this encounterCleveland Clinic Fairview Hospital12-30-2022 Miscellaneous Notes* Telephone Encounter - Alexa Choudhary RN - 02/20/2022 12:27 PM EST I spoke to Any and she will be coming in for her infusion on 02-24-22. She denies having been on any recent antibiotics. documented in this encounterCleveland Clinic Fairview Hospital12-13-2022 History of Present illness Narrative* Margarita Bro - 02/03/2022 3:20 PM EST POPULATION HEALTH NAVIGATION OUTREACH Action/FYI Left vm Pt identified by name and : NO Outreach Outcome/Action Unable to reach patient: Left message MyChart message sent Did you use a PCP flex slot to schedule this appointment? No Reason for Outreach Care Gap or Scheduling/Wellness visits Payer: Payor: [employer] MEDICAID / Plan: [employer] ADVANTAGE MEDICAID / Product Type: Medicaid / [...] 03, 2022 3:21 PM documented in this encounterCleveland Clinic Fairview Hospital12-05-2022 Miscellaneous Notes* Telephone Encounter - Fariba Hill APRN.CNP - 01/26/2022 1:57 PM EST Last time 10/29/2021 I increased to every 7 weeks This last visit 01/05/2022 Infliximab next time increase dose to 5mg/ kg- to decrease disease activity * Telephone Encounter - Keanu Zhang - 01/26/2022 10:45 AM EST === PHARMACY TEAM ==== ADDITIONAL INFORMATION NEEDED/REQUESTED [...] by 01/27/2022 Keanu Sanders documented in this encounterCleveland Clinic Fairview Hospital11-15-2022 Miscellaneous Notes* Telephone Encounter - Zaina Schmitz, [facility] ED - 01/06/2022 3:01 PM EST Smoking Cessation Navigation Outcome of contact: Left Message Comments: A voicemail has been left for this patient regarding Tobacco Cessation support options. If this patient has any further questions they can email us at or call us at [phone]. [employer] Hooker Operator/Smoking Cessation Navigator: Zaina Schmitz, [facility] ED documented in this encounterCleveland Clinic Fairview Hospital11-15-2022 Miscellaneous Notes* Telephone Encounter - Fariba Hill APRN.CNP - 01/06/2022 2:06 PM EST Can you please change plan to reflect Infliximab next time increase dose to 5mg/ kg- to decrease disease activity thanks documented in this encounterCleveland Clinic Fairview Hospital11-14-2022 History of Present illness Narrative* Alexa Choudhary RN - 01/05/2022 1:38 PM EST Since your last infusion, have you: Had [...] or open sores? No documented in this encounterCleveland Clinic Fairview Hospital11-14-2022 Instructions* Patient Instructions* Fariba Hill APRN.CNP - 01/05/2022 10:34 AM EST -PLEASE NOTE THAT WE REVIEW ALL YOUR TEST RESULTS AT YOUR NEXT FOLLOW UP VISIT WITH YOU. IF ANY ABNORMAL LAB REQUIRES SOONER ATTENTION, WE WILL CONTACT YOU. -If you have signed up on Cellumen, we will release your test results through Cellumen. Increase inflxiamab every 7 weeks 5mg/kg Start [...] that features the Whole Plant Based diet, [place] over knives (see video online and visit website). Another movie that was recently released is: Eating You Alive (you can find it at GetYourGuide) Dr. Lisa Armando is a [facility] physician who is an expert in Whole Plant based diet. His website is KRAFTWERK. His research work highlighted the benefits of Whole plant based dietin reversing and preventing heart disease. Consider reading Rip Prabha: The Engine 2 Diet, cookbook Mrs. Armando (his ) has a cookbook with many recipes on whole plant based food: The Prevent and Reverse Heart Disease cookbook. Dr. Stephen Martinez, has a website and free keisha to help get started on a whole plant based diet, at Daily Secret.[employer] and the free keisha is 21-Day Vegan Kickstart with meals and recipes to follow. He has multiple free videos and YouTube, for example: https://youtu.be/[email or web address] , https://youtu.be/[email or web address] Dr. Gordy Farrell has proven starch diet whole plant based and benefit to his Rheumatoid Arthritispatients, his website: val.Transfer To Dr. Maira Bertrand is a renowned scientist immunology, who has studied and researched the benefits of the Whole plant based diet. He has also researched the adverse effects of animal proteins on health. He presents many of his research findings in his book The [place] study. Dr. Maurilio Xie has completed many research trials proving the reversal of diseases with healthy lifestyle and the Whole Plant based diet. Dr. Maurilio Xie website is: [employer].Transfer To UnDo It a new book by Dr. Maurilio Thomas has dedicated a website and additional time to reviewing all food related articles and research and presents them in his power point presentation and on his website at: nutritionfacts.org Dr. Thomas has multiple free videos and YouTube, for example https://[employer].canvs.co/aSgNkhgVtks and [email or web address].canvs.[email or web address]. Also, you could find additional information by reading or watching online and YouTube such as: ChefAJ, Cooking With Plants, The Vegan Corner (recipes from an [place] Waste Disposal Leakage Tester), and visiting the [employer] for additional information on the whole plant based benefit and cooking recipes. The Whole Foods Plant Based Cooking Show Athletes such as Kelvin Kan, Antonio Guillermo, Shaheen Mooney YouTube Guilt Free Shaheen Mooney YouTube Guilt Free TV and Hua with [employer]. Goodbye Lupus by Kandi Leonard M.D If you suspect you are gluten sensitive or intolerant, consider gluten free diet. Gluten could leadto increased inflammation in the bowels and body in certain patients. Consider organic and non-GMO products when shopping for your food. GMO are genetically modified food that may have adverse impact on our health. 2- Regular Exercise, i.e. beginner yoga Come As You Are: YOGA - Gentle Yoga Anyone Can Do Anywhere www.[employer].Transfer To/yoga landon chi, stretching, cardio, gradual strengthening, pool [...] or a higher dose. Raw: Garlic, Cilantro, Tiona nuts, Pumpkin seeds, Escalante seeds and Flax seed powder have been reported to help with certain metal detoxification such as mercury. Cocoa-3 plant based sources: rachana seeds, flax seed powder, flax milk, walnuts. Turmeric can be found natural, used as the spice powder or the root with your food. This is also available as a capsule. Sweet cherries (raw cleaned or frozen) and Turmeric have anti-inflammatory benefit Start reviewing the Whole Plant Based Diet, by watching [place] over Yeti Data movie and then review website. There are many other resources and educational information on the Whole plant based diet on the Internet and documentaries. There are other resources for wellness that you can also benefit from, such as the [facility] website, [facility]org and includes the Mediterranean heart healthy diet and yoga and meditation. Please avoid all dairy products. You could use non-dairy milk such as Flax milk, Cashew milk, [place] milk, Rice milk, Oat milk or Hemp [...] milk, you can use coconut water or plainwater instead. Other smoothies, including green smoothies, are also very healthy and highly anti-inflammatory. Forexample fruits (such as banana or frozen anurag [...] the dose necessary to achieve a Vitamin D25-OH blood level of >31 and preferably closer [...] Recent studies show extra supplements may increase yourrisk of kidney stones or cause high calcium levels in some people. You should discuss how much you should be taking with your doctor before starting them. Further Information is available from the following resources: www.nof.org (National Osteoporosis Foundation) http://www.osteo.org/osteolinks.asp National Institutes of Health: 3-480-288-BONE The Calcium Information Center: Non-Dairy, Plant based Milk, contain 1 glass = 450 mg of calcium Exampled include Flax Milk, [place] Milk, Cashew Milk Examples of Food Sources of Calcium from [facility] [[email or web address]] Food Milligrams (mg) per serving Percent DV* Soymilk, calcium-fortified, 8 ounces 299 30 [place] juice, calcium-fortified, 6 ounces 261 26 Tofu, firm, made with calcium sulfate, cup* 253 25 Tofu, soft, made with calcium sulfate, cup* 138 14 Jbxgh-mc-pxu cereal, calcium-fortified, 1 cup 100-1,000 10-100 Turnip greens, fresh, boiled, cup 99 10 Kale, raw, chopped, 1 cup 100 10 Kale, fresh, cooked, 1 cup 94 9 Mal[place]ian cabbage, bok gilbert, raw, shredded, 1 cup 74 7 Bread, white, 1 slice 73 7 Tortilla, corn, dvdvt-th-bsxl/mcgee, one 6 diameter 46 5 Tortilla, flour, kiptr-ht-cynp/mcgee, one 6 diameter 32 3 Bread, whole-wheat, 1 slice 30 3 Broccoli, raw, cup 21 2 * DV = Daily Value. DVs were developed by the U.S. Food and Drug Administration to help consumers compare the nutrient contents among products within the context of a total daily diet. The U.S. Department of Agriculture s (USDA s) Nutrient Database Web site lists the nutrient contentof many foods and provides comprehensive list of [...] You could acces this information online at: http://ods.od.nih.gov/factsheets/Calcium-HealthProfessional/ Vitamin D: Vitamin D3= cholecalciferol, available over the counter. Dose recommended 800 to 1000 iu daily with a meal; Certain patients required 9506-8681 iu daily andin patients deficient in Vitamin D, they require [...] bones. Studies show approximately 50% of [place] men and women are vitamin D deficient in the winter. Milder cases of vitamin D are usually asymptomatic so the only way to know you have a problem is to have a blood level checked. More severe cases can cause osteomalacia(a.k.a. rickets) which can result in bone pain, [...] deficiency or diseases of the liver or kidney.Supplementation in patients with severe deficiency can stabilize or improve bone mineral density and in frail elderly persons, may reduce their risk of falling. Additional Information is available from: www.nof.org (the national osteoporosis foundation) http://www.[facility].org/arthritis/osteo/info.htm http://ods.od.nih.gov/factsheets/vitamind.asp National Institutes of Health: 5-595-309-BONE [facility] Calcium Information [place]: Thank you for choosing [facility] for your healthcare. Sincerely, Fariba Hill APRN.ANTHONY documented in this encounterC[facility]11-14-2022 History of Present illness Narrative* Fariba Hill APRN.ANTHONY - 01/05/2022 10:25 AM EST FOLLOW UP VISIT- virtual PCP: Tino Blake MD [address] [place] [address] Ms. Ludwig is a 36 year old patient here today for follow up of RA Interim History: Hands/ feet right elbow Swelling left foot MTP, right elbow, b/l wrist Pain 9/10 Here for infusion Am stiffness Had tubal [...] for the 30 day free supply. She didnot follow up on the [employer] program, was unclear when asked. With patient's drug addition history, would have to defer from self injectables and needles at home. Due to her problems with transportation and lives far, she is unable to receive IV infusions. She is planning to follow up with local tunnel worker closer to home. Until she has her apt, we offered assistance with her RA care and follow up apt. Advised we can only provide 1 month supply and will need f/u apt for recheck and refill for her safety. We also reviewed importance of follow up with her dentist to evaluate for painful tooth and excludeinfection. Dental infections can be risk for Rheumatoid Arthritis flares as well as concerns for more serious infections. Patient has had multiple unfortunate social and psychologic factors over her lifetime. We are assisting with pastoral worker consult, also to help with adherence [...] which included preparing to see the patient, qalb-se-gqek patient care, completing clinical documentation, obtaining and/or reviewing separately obtained history, performing a medically appropriate examination, counseling and educating the pat ient/family/caregiver, and ordering medications, tests, or procedures. Portions [...] CC: Tino Blake MD documented in this encounterC[facility]11-11-2022 Miscellaneous Notes* Telephone Encounter - Alexa Choudhary RN - 01/02/2022 8:26 AM EST I LMOM for Any to please give [...] response: Your infusion team documented in this encounterC[facility]10-31-2022 Miscellaneous Notes* Telephone Encounter - Kierra Patricia - 12/22/2021 1:21 PM EDT Called patient to offer to reschedule appointments to 01/01, left message with . * Telephone Encounter - Yessy Gonzalez RN - 12/15/2021 11:15 AM EDT Attempted to call pt, no answer. Sent her a [employer] message. Please call pt to reschedule infusion and appt with Fariba Hill (due 01/01/22). Can cancel appts on 01/05/22 if patient agrees to change to 01/01. She is scheduled 12/16/21 which is too soon. Last infusion 11/13/21, ordered every 7 weeks. Can leave appt with Fariba for tomorrow until patient calls back to acknowledge that her appts are cancelled. documented in this encounterC[facility]10-24-2022 Miscellaneous Notes* Telephone Encounter - Alexa Choudhary RN - 12/15/2021 10:23 AM EDT I called and left message for Any [...] give a brief explanation. documented in this encounterCleveland [facility]09-22-2022 History of Present illness Narrative* Prema Mckinney RN - 11/13/2021 1:55 PM EDT Since your last infusion, have you: Had [...] or open sores? No documented in this encounterCleveland Clinic [facility]09-20-2022 Miscellaneous Notes* Telephone Encounter - Alexa Choudhary RN - 11/11/2021 10:31 AM EDT I LMOM for pt to please give [...] rash or open sores? documented in this encounterCleveland [facility]09-07-2022 Instructions* Patient Instructions* Fariba Hill APRN.FOOD SAMPLER - 10/29/2021 1:51 PM EDT -PLEASE NOTE THAT WE REVIEW ALL YOUR TEST RESULTS AT YOUR NEXT FOLLOW UP VISIT WITH YOU. IF ANY ABNORMAL LAB REQUIRES SOONER ATTENTION, WE WILL CONTACT YOU. -If you have signed up on MyChart, we will release your test results through Cellumen. Increase inflxiamab every 7 weeks 5mg/kg Start [...] that features the Whole Plant Based diet, [place] over knives (see video online and visit website). Another movie that was recently released is: Eating You Alive (you can find it at GetYourGuide) Dr. Lisa Armando is a [facility] physician who is an expert in Whole Plant based diet. His website is KRAFTWERK. His research work highlighted the benefits of Whole plant based dietin reversing and preventing heart disease. Consider reading Rip Brennanfranca: The Engine 2 Diet, cookbook Mrs. Armando (his ) has a cookbook with many recipes on whole plant based food: The Prevent and Reverse Heart Disease cookbook. Dr. Stephen Martinez, has a website and free keisha to help get started on a whole plant based diet, at Storyvine and the free keisha is 21-Day Vegan Kickstart with meals and recipes to follow. He has multiple free videos and YouTube, for example: https://youtu.be/[email or web address] , https://[email or web address] Dr. Gordy Farrell has proven starch diet whole plant based and benefit to his Rheumatoid Arthritispatients, his website: val.Transfer To Dr. Maira Bertrand is a renowned scientist immunology, who has studied and researched the benefits of the Whole plant based diet. He has also researched the adverse effects of animal proteins on health. He presents many of his research findings in his book The [place] study. Dr. Maurilio Xie has completed many research trials proving the reversal of diseases with healthy lifestyle and the Whole Plant based diet. Dr. Maurilio Xie website is: mignonROR Media.Transfer To UnDo It a new book by Dr. Maurilio Thomas has dedicated a website and additional time to reviewing all food related articles and research and presents them in his power point presentation and on his website at: nutritionfacts.org Dr. Thomas has multiple free videos and YouTube, for example https://youtu.be/aSgNkhgVtks and [email or web address]. Also, you could find additional information by reading or watching online and YouTube such as: ChefAJ, Cooking With Plants, The Vegan Corner (recipes from an [place] Waste Disposal Leakage Tester), and visiting the providedwebsites for additional information on the whole plant based benefit and cooking recipes. The Whole Foods Plant Based Cooking Show Athletes such as Kelvin Kan, Antonio Roll, Shaheen Mooney YouTube Guilt Free Shaheen Mooney YouTube Guilt Free TV and Hua with Fare Motion. Goodbye Lupus by Kandi Leonard M.D If you suspect you are gluten sensitive or intolerant, consider gluten free diet. Gluten could leadto increased inflammation in the bowels and body in certain patients. Consider organic and non-GMO products when shopping for your food. GMO are genetically modified food that may have adverse impact on our health. 2- Regular Exercise, i.e. beginner yoga Come As You Are: YOGA - Gentle Yoga Anyone Can Do Anywhere www.Startupbootcamp [employer].Transfer To/yoga landon chi, stretching, cardio, gradual strengthening, pool [...] or a higher dose. Raw: Garlic, Cilantro, Tiona nuts, Pumpkin seeds, Escalante seeds and Flax seed powder have been reported to help with certain metal detoxification such as mercury. Cocoa-3 plant based sources: rachana seeds, flax seed powder, flax milk, walnuts. Turmeric can be found natural, used as the spice powder or the root with your food. This is also available as a capsule. Sweet cherries (raw cleaned or frozen) and Turmeric have anti-inflammatory benefit Start reviewing the Whole Plant Based Diet, by watching [place] over Yeti Data movie and then review website. There are many other resources and educational information on the Whole plant based diet on the Internet and documentaries. There are other resources for wellness that you can also benefit from, such as the [facility] website, [facility]org and includes the Mediterranean heart healthy diet and yoga and meditation. Please avoid all dairy products. You could use non-dairy milk such as Flax milk, Cashew milk, [place] milk, Rice milk, Oat milk or Hemp [...] milk, you can use coconut water or plainwater instead. Other smoothies, including green smoothies, are also very healthy and highly anti-inflammatory. Forexample fruits (such as banana or frozen anurag [...] the dose necessary to achieve a Vitamin D25-OH blood level of >31 and preferably closer [...] Recent studies show extra supplements may increase yourrisk of kidney stones or cause high calcium levels in some people. You should discuss how much you should be taking with your doctor before starting them. Further Information is available from the following resources: www.nof.org (National Osteoporosis Foundation) http://www.osteo.org/osteolinks.asp National Institutes of Health: 4-441-417-BONE The Calcium Information Center: Non-Dairy, Plant based Milk, contain 1 glass = 450 mg of calcium Exampled include Flax Milk, [place] Milk, Cashew Milk Examples of Food Sources of Calcium from NIH Food Milligrams (mg) per serving Percent DV* Soymilk, calcium-fortified, 8 ounces 299 30 Apache juice, calcium-fortified, 6 ounces 261 26 Tofu, firm, made with calcium sulfate, cup* 253 25 Tofu, soft, made with calcium sulfate, cup* 138 14 Mpwiv-na-wia cereal, calcium-fortified, 1 cup 100-1,000 10-100 Turnip greens, fresh, boiled, cup 99 10 Kale, raw, chopped, 1 cup 100 10 Kale, fresh, cooked, 1 cup 94 9 Mal[place]ian cabbage, bok gilbert, raw, shredded, 1 cup 74 7 Bread, white, 1 slice 73 7 Tortilla, corn, fwfyq-up-rcha/mcgee, one 6 diameter 46 5 Tortilla, flour, iowlp-uy-izjr/mcgee, one 6 diameter 32 3 Bread, whole-wheat, 1 slice 30 3 Broccoli, raw, cup 21 2 * DV = Daily Value. DVs were developed by the U.S. Food and Drug Administration to help consumers compare the nutrient contents among products within the context of a total daily diet. The U.S. Department of Agriculture s ([employer] s) Nutrient Database Web site lists the nutrient contentof many foods and provides comprehensive list of [...] You could acces this information online at: http://ods.od.nih.gov/factsheets/Calcium-HealthProfessional/ Vitamin D: Vitamin D3= cholecalciferol, available over the counter. Dose recommended 800 to 1000 iu daily with a meal; Certain patients required 9698-2245 iu daily andin patients deficient in Vitamin D, they require [...] bones. Studies show approximately 50% of [place] men and women are vitamin D deficient in the winter. Milder cases of vitamin D are usually asymptomatic so the only way to know you have a problem is to have a blood level checked. More severe cases can cause osteomalacia(a.k.a. rickets) which can result in bone pain, [...] deficiency or diseases of the liver or kidney.Supplementation in patients with severe deficiency can stabilize or improve bone mineral density and in frail elderly persons, may reduce their risk of falling. Additional Information is available from: www.nof.org (the national osteoporosis foundation) http://www.[facility].org/arthritis/osteo/info.htm http://ods.od.nih.gov/factsheets/vitamind.asp [place] Institutes of Health: 8-274-088-BONE [facility] Calcium Information [place]: Thank you for choosing [facility] for your healthcare. Sincerely, Fariba Hill APRN.ANTHONY documented in this encounterCleveland Clinic [facility]09-07-2022 History of Present illness Narrative* Fariba Hill APRN.FOOD SAMPLER - 10/29/2021 1:20 PM EDT FOLLOW UP VISIT- virtual PCP: Tino Blake MD [facility] [place] [address] Ms. Ludwig is a 36 year old [...] for the 30 day free supply. She didnot follow up on the [employer] program, was unclear when asked. With patient's drug addition history, would have to defer from self injectables and needles at home. Due to her problems with transportation and lives far, she is unable to receive IV infusions. She is planning to follow up with local tunnel worker closer to home. Until she has her apt, we offered assistance with her RA care and follow up apt. Advised we can only provide 1 month supply and will need f/u apt for recheck and refill for her safety. We also reviewed importance of follow up with her dentist to evaluate for painful tooth and excludeinfection. Dental infections can be risk for Rheumatoid Arthritis flares as well as concerns for more serious infections. Patient has had multiple unfortunate social and psychologic factors over her lifetime. We are assisting with pastoral worker consult, also to help with adherence [...] from date of this visit. Fariba Hill APRN.FOOD SAMPLER Recommendations to share with referring physician/Primary care [...] CC: Tino Blake MD documented in this encounterC[facility]09-06-2022 Miscellaneous Notes* Telephone Encounter - Alexa Choudhary RN - 10/28/2021 10:37 AM EDT If pt calls back, please answer these [...] give a brief explanation. documented in this encounterCleveland Clinic [facility]08-16-2022 NotePROCEDURE: XR FOOT LT MIN 3 VIEWS HISTORY: Injury of left [...] Electronically authenticated by: TERESO HERNANDEZ Date: 2021-10-07 12:06[facility]07-15-2022 NoteOPERATIVE NOTE OPERATION DATE: 09/05/2021 PROCEDURE: Bilateral laparoscopic salpingectomy. PREOPERATIVE DIAGNOSIS:: 1. Multiparity. 2. Desires permanent sterilization. POSTOPERATIVE DIAGNOSIS:: 1. Multiparity. 2. Desires permanent sterilization. ANESTHESIA: General. SURGEON: Patricio Ram D.O. MANAGER MENTAL HEALTH: AMANDA Negron URINE OUTPUT: Yellow and clear. [...] and needle counts were correct x2. : [facility] Signed and Approved by: DR PATRICIO RAM . 09/12/2021 08:16:00[facility]07-13-2022 History of Present illness Narrative* Na Arevalo RN - 09/03/2021 1:27 PM EDT Since your last infusion, have you: 1. [...] or open sores? No documented in this encounterCleveland Clinic [facility] Hospital07-11-2022 Miscellaneous Notes* Telephone Encounter - Alexa Choudhary RN - 09/01/2021 3:14 PM EDT I spoke to Sarah, she is coming for her infusion on 09-03-21. She states that she was on a z-pack for a URI, and that she has finished it 2 weeks ago. She was prescribed this from an ER visit in [place]. Pt states that she is feeling much better. documented in this encounterCleveland Clinic [facility] Hospital06-16-2022 Miscellaneous Notes* Telephone Encounter - Fariba Hill APRN.ANTHONY - 08/07/2021 4:36 PM EDT Spoke with patient Low potassium Please increase potassium in your diet: spinach, sweet potatoes, avocados, coconut water, dried fruits (dates and apricots), bananas, beans, acorn squash, mushrooms. Low vit d Will start rx Other labs acceptable range Labs in 1 month with infusion documented in this encounterCleveland Clinic [facility] Hospital06-15-2022 History of Present illness Narrative* Alexa Choudhary RN - 08/06/2021 1:43 PM EDT Since your last infusion, have you: 1. [...] or open sores? No documented in this encounterCleveland [facility]06-01-2022 History of Present illness Narrative* Alexa Choudhary RN - 07/23/2021 9:50 AM EDT Since your last infusion, have you: 1. [...] or open sores? No documented in this encounterCleveland Clinic [facility] Hospital06-01-2022 Instructions* Patient Instructions* Fariba Hill APRN.FOOD SAMPLER - 07/23/2021 9:08 AM EDT -PLEASE NOTE THAT WE REVIEW ALL YOUR TEST RESULTS AT YOUR NEXT FOLLOW UP VISIT WITH YOU. IF ANY ABNORMAL LAB REQUIRES SOONER ATTENTION, WE WILL CONTACT YOU. -If you have signed up on eTobbhart, we will release your test results through Cellumen. - Vitamin D : vitamin D3: 2000 [...] that features the Whole Plant Based diet, [place] over knives (see video online and visit website). Another movie that was recently released is: Eating You Alive (you can find it at GetYourGuide) Dr. Lisa Armando is a [facility] physician who is an expert in Whole Plant based diet. His website is KRAFTWERK. His research work highlighted the benefits of Whole plant based dietin reversing and preventing heart disease. Consider reading Rip Prabha: The Engine 2 Diet, cookbook Mrs. Armando (his ) has a cookbook with many recipes on whole plant based food: The Prevent and Reverse Heart Disease cookbook. Dr. tSephen Martinez, has a website and free keisha to help get started on a whole plant based diet, at Storyvine and the free keisha is 21-Day 56.comgan KiSmartCloudstart with meals and recipes to follow. He has multiple free videos and YouTube, for example: https://youtu.be/[email or web address] , [email or web address] Dr. Gordy Farrell has proven starch diet whole plant based and benefit to his Rheumatoid Arthritispatients, his website: val.Transfer To Dr. Maira Bertrand is a renowned scientist immunology, who has studied and researched the benefits of the Whole plant based diet. He has also researched the adverse effects of animal proteins on health. He presents many of his research findings in his book The [place] study. Dr. Maurilio Xie has completed many research trials proving the reversal of diseases with healthy lifestyle and the Whole Plant based diet. Dr. Maurilio Xie website is: mignonROR Media.Transfer To UnDo It a new book by Dr. Maurilio Thomas has dedicated a website and additional time to reviewing all food related articles and research and presents them in his power point presentation and on his website at: nutritionfacts.org Dr. Thomas has multiple free videos and YouTube, for example https://[email or web address]/aSgNkhgVtks and [email or web address]. Also, you could find additional information by reading or watching online and YouTube such as: ChefAJ, Cooking With Plants, The Vegan Corner (recipes from an [place] Waste Disposal Leakage Tester), and visiting the providedwebsites for additional information on the whole plant based benefit and cooking recipes. The Whole Foods Plant Based Cooking Show Athletes such as Kelvin Kan, Antonio Guillermo, Shaheen Mooney YouTube Guilt Free Shaheen Mooney YouTube Guilt Free TV and Hua with F[employer] Motion. Goodbye Lupus by Kandi Leonard M.D If you suspect you are gluten sensitive or intolerant, consider gluten free diet. Gluten could leadto increased inflammation in the bowels and body in certain patients. Consider organic and non-GMO products when shopping for your food. GMO are genetically modified food that may have adverse impact on our health. 2- Regular Exercise, i.e. beginner yoga Come As You Are: YOGA - Gentle Yoga Anyone Can Do Anywhere www.Startupbootcamp [employer].Transfer To/yoga landon chi, stretching, cardio, gradual strengthening, pool [...] or a higher dose. Raw: Garlic, Cilantro, Tiona nuts, Pumpkin seeds, Escalante seeds and Flax seed powder have been reported to help with certain metal detoxification such as mercury. Cocoa-3 plant based sources: rachana seeds, flax seed powder, flax milk, walnuts. Turmeric can be found natural, used as the spice powder or the root with your food. This is also available as a capsule. Sweet cherries (raw cleaned or frozen) and Turmeric have anti-inflammatory benefit Start reviewing the Whole Plant Based Diet, by watching [place] over Yeti Data movie and then review website. There are many other resources and educational information on the Whole plant based diet on the Internet and documentaries. There are other resources for wellness that you can also benefit from, such as the [facility] website, [facility]org and includes the Mediterranean heart healthy diet and yoga and meditation. Please avoid all dairy products. You could use non-dairy milk such as Flax milk, Cashew milk, [place] milk, Rice milk, Oat milk or Hemp [...] milk, you can use coconut water or plainwater instead. Other smoothies, including green smoothies, are also very healthy and highly anti-inflammatory. Forexample fruits (such as banana or frozen anurag [...] the dose necessary to achieve a Vitamin D25-OH blood level of >31 and preferably closer [...] Recent studies show extra supplements may increase yourrisk of kidney stones or cause high calcium levels in some people. You should discuss how much you should be taking with your doctor before starting them. Further Information is available from the following resources: www.nof.org (National Osteoporosis Foundation) http://www.osteo.org/osteolinks.asp National Institutes of Health: 3-753-211-BONE The Calcium Information Center: Non-Dairy, Plant based Milk, contain 1 glass = 450 mg of calcium Exampled include Flax Milk, [place] Milk, Cashew Milk Examples of Food Sources of Calcium from NIH Food Milligrams (mg) per serving Percent DV* Soymilk, calcium-fortified, 8 ounces 299 30 [place] juice, calcium-fortified, 6 ounces 261 26 Tofu, firm, made with calcium sulfate, cup* 253 25 Tofu, soft, made with calcium sulfate, cup* 138 14 Ukiik-vp-fkw cereal, calcium-fortified, 1 cup 100 1,000 10 100 Turnip greens, fresh, boiled, cup 99 10 Kale, raw, chopped, 1 cup 100 10 Kale, fresh, cooked, 1 cup 94 9 Mal[place]ian cabbage, bok gilbert, raw, shredded, 1 cup 74 7 Bread, white, 1 slice 73 7 Tortilla, corn, rqgyb-ed-vllv/mcgee, one 6 diameter 46 5 Tortilla, flour, lyqzt-gw-dbxx/mcgee, one 6 diameter 32 3 Bread, whole-wheat, 1 slice 30 3 Broccoli, raw, cup 21 2 * DV = Daily Value. DVs were developed by the U.S. Food and Drug Administration to help consumers compare the nutrient contents among products within the context of a total daily diet. The U.S. Department of Agriculture s (USDA s) Nutrient Database Web site lists the nutrient contentof many foods and provides comprehensive list of [...] You could acces this information online at: http://ods..nih.gov/factsheets/Calcium-HealthProfessional/ Vitamin D: Vitamin D3= cholecalciferol, available over the counter. Dose recommended 800 to 1000 iu daily with a meal; Certain patients required 5213-2829 iu daily andin patients deficient in Vitamin D, they require [...] bones. Studies show approximately 50% of [place] men and women are vitamin D deficient in the winter. Milder cases of vitamin D are usually asymptomatic so the only way to know you have a problem is to have a blood level checked. More severe cases can cause osteomalacia(a.k.a. rickets) which can result in bone pain, [...] deficiency or diseases of the liver or kidney.Supplementation in patients with severe deficiency can stabilize or improve bone mineral density and in frail elderly persons, may reduce their risk of falling. Additional Information is available from: www.nof.org (the national osteoporosis foundation) http://www.[facility].org/arthritis/osteo/info.htm http://ods.od.nih.gov/factsheets/vitamind.asp [facility]: 6-427-621-BONE [facility] Calcium Information [place]: Thank you for choosing [facility] for your healthcare. Sincerely, Fariba Hill APRN.ANTHONY documented in this encounterC[facility]06[facility] History of Present illness Narrative* Fariba Hill APRN.FOOD SAMPLER - 07/23/2021 9:01 AM EDT FOLLOW UP VISIT- virtual PCP: Tino Blake MD [facility] [place] [address] Ms. Ludwig is a 36 year old [...] for the 30 day free supply. She didnot follow up on the [employer] program, was unclear when asked. With patient's drug addition history, would have to defer from self injectables and needles at home. Due to her problems with transportation and lives far, she is unable to receive IV infusions. She is planning to follow up with local tunnel worker closer to home. Until she has her apt, we offered assistance with her RA care and follow up apt. Advised we can only provide 1 month supply and will need f/u apt for recheck and refill for her safety. We also reviewed importance of follow up with her dentist to evaluate for painful tooth and excludeinfection. Dental infections can be risk for Rheumatoid Arthritis flares as well as concerns for more serious infections. Patient has had multiple unfortunate social and psychologic factors over her lifetime. We are assisting with pastoral worker consult, also to help with adherence [...] which included preparing to see the patient, [id number] patient care, completing clinical documentation, obtaining and/or reviewing separately obtained history, performing a medically appropriate examination, counseling and educating the pat ient/family/caregiver, ordering medications, tests, or procedures, communicating with [...] CC: Tino Blake MD documented in this encounterC[facility]05-31-2022 Miscellaneous Notes* Telephone Encounter - Carolynn Ortiz - 07/22/2021 11:03 AM EDT Patient called back stating that she will be hear for her infusion tomorrow. Patient can be reachedat [phone]. Please advise. * Telephone Encounter - Alexa Choudhary RN - 07/22/2021 9:11 AM EDT I left a message for Any to please give us a call, and let us know that she will be coming for her infusion. I instructed her that we need to have contact with her, and know that she is well, and that she is coming or her medication will not be here 07-23-21, and she will be cancelled. documented in this encounterC[facility]05-27-2022 Miscellaneous Notes* Telephone Encounter - Feli Gonzalez RN - 07/18/2021 9:38 AM EDT Sent pt a [employer] message. * Telephone Encounter - Khushbu Bradley MA - 07/17/2021 9:03 AM EDT Attempted to contact patient Unable to leave message as voicemail is full No alternate number to try Please try again later * Telephone Encounter - Phylicia Torres MA - 07/15/2021 10:32 AM EDT Attempted number on file. No answer, unable to leave a message. I then attempted to reach number on file [phone] & she states there is nobody by the name Any at that phone number. Phylicia Torres MA * Telephone Encounter - Fariba Hill APRN.CNP - 07/15/2021 10:23 AM EDT Please call and update patient reflexis infusion approved. Please remind patient to complete labs this week thanks documented in this encounterCleveland Clinic [facility] Hospital05-19-2022 Miscellaneous Notes* Telephone Encounter - Carol Lauren - 07/10/2021 10:57 AM EDT Per Chilo, initial review Erika cordero- non-compliance [...] hears back. Please advise, thanks! [facility] Rx [phone] * Telephone Encounter - Fariba Hill APRN.CNP - 07/08/2021 4:18 PM EDT Patient has been on mtx and arava [...] prevent immunogenicity. Arnel - Please adjust plan * Telephone Encounter - Carol Lauren - 07/08/2021 1:53 PM EDT === PHARMACY TEAM ==== ADDITIONAL INFORMATION NEEDED/REQUESTED Case Submitted: Yes Request Type: Provider Date of Service: 07.23.21 Additional Information Needed: 1. Methotrexate is required to be taken concurrently with Renflexis per payer unless it is contraindicated or has a documented intolerance with specifics about the contraindication or intolerance. 2. Confirm dosing, currently ordered as Induction 331 mg D1, 15. Payer previously approved as 200mgQweek 0, 2, 6 then every 8. They are asking why it is not that again? Request from Payor by: Phone [facility] [phone] Email Sent to: TE encounter Requested Clinicals/Information Sent: N/A documented in this encounterCleveland Clinic [facility]05-05-2022 Miscellaneous Notes* Telephone Encounter - Khushbu Bardley MA - 06/26/2021 10:43 AM EDT Fax received and placed on providers desk for review * Telephone Encounter - Khushbu Bradley MA - 06/26/2021 9:39 AM EDT Called [place] Spoke with Jaclyn Olmedo P2P was denied due to patient not trying and failed Renflexis Will fax over the denial letter Fax number provided Please watch for fax * Telephone Encounter - Phylicia Torres MA - 06/25/2021 9:36 AM EDT After waiting on hold for 15 minutes due to hold time being longer than usual. I left a call back number to call back when it is my turn in line to receive a call back. Phylicia Torres MA * Telephone Encounter - Phylicia Torres MA - 06/25/2021 8:58 AM EDT Received denial that came back yesterday. Will call Jenifer to find out if this was a denial before or after the P2P. Phylicia Torres MA * Telephone Encounter - Phylicia Torres MA - 06/25/2021 8:55 AM EDT Received a fax from denial for Serg Clark. Given to Fariba for review. Phylicia Torres MA * Telephone Encounter - Fariba Hill APRN.ANTHONY - 06/24/2021 2:08 PM EDT [facility] documented in this encounterCleveland Clinic [facility] Hospital04-26-2022 Miscellaneous Notes* Telephone Encounter - Bailey Walker Pss - 06/17/2021 11:56 AM EDT Patient has been scheduled as requested for 06/20/21. I spoke with Ms. Ludwig and she is aware of allof the appointment details. Bailey Walker PSS June 17, 2021 11:56 AM * Telephone Encounter - Phylicia Torres MA - 06/17/2021 11:44 AM EDT Pt aware. Please call to schedule pt for lab as pt requested an apt. Thanks. Phylicia Torres MA * Telephone Encounter - Phylicia Torres MA - 06/17/2021 11:37 AM EDT ----- Message from Fariba Hill APRN.FOOD SAMPLER sent at 06/16/2021 4:27 PM EDT ----- Please call patient and review documented in this encounterCleveland Clinic [facility] Hospital07-25-2021 Hospital Discharge instructions* Instructions* Loida Caro PA-C - 09/15/2020 Call to arrange follow-up with primary care for repeat check within 24 to 48 hours. If you go home develop a high fever or worsening symptoms do not hesitate to return to the ER immediately. * Attachments The following attachments cannot be sent through Care Everywhere. * Pneumonia ([place]cuad[place]) [facility] Phone: consult note* Clinical Note Date No Information [facility] Work Phone: Discharge summary* Clinical Note Date No Information [facility] Work Phone: Evaluation note* Diagnosis Pneumonia of both lungs due to infectious organism, unspecified part of lung- Primary [facility]* Diagnosis Right upper quadrant abdominal pain Abdominal pain, right upper quadrant documented in this encounter [employer] Phone: evaluation note* Diagnosis Seropositive rheumatoid arthritis (HCC)- Primary Rheumatoid arthritis [facility]* Diagnosis Seropositive rheumatoid arthritis (HCC)- [...] therapeutic drug monitoring [facility]* Diagnosis Seropositive rheumatoid arthritis (HCC)- Primary Rheumatoid arthritis Vitamin D deficiency Unspecified vitamin D deficiency [facility]* Diagnosis Seropositive rheumatoid arthritis (HCC)- Primary Rheumatoid arthritis Vitamin D deficiency Unspecified vitamin D deficiency [facility]* Diagnosis Dermatomyositis (HCC)- Primary Dermatomyositis Seropositive rheumatoid arthritis (HCC) Rheumatoid arthritis Vitamin D deficiency Unspecified vitamin D deficiency [facility]* Diagnosis Seropositive rheumatoid arthritis (HCC)- [...] (HCC) Rheumatoid arthritis [facility]* Diagnosis Seropositive rheumatoid arthritis (HCC)- Primary Rheumatoid arthritis Vitamin D deficiency Unspecified vitamin D deficiency [facility]* Diagnosis Seropositive rheumatoid arthritis (HCC)- [...] (HCC) Rheumatoid arthritis [facility]* Diagnosis Vitamin D deficiency- Primary Unspecified vitamin D deficiency Seropositive rheumatoid arthritis (HCC) Rheumatoid arthritis [facility]* Diagnosis Seropositive rheumatoid arthritis (HCC)- Primary Rheumatoid arthritis [facility] encounter [facility]* Diagnosis Seropositive rheumatoid arthritis (HCC)- Primary Rheumatoid arthritis documented [facility] encounter [facility]* Diagnosis Seropositive rheumatoid arthritis (HCC) Rheumatoid arthritis [facility] Diagnosis Seropositive rheumatoid arthritis (HCC)- [...] of other medications documented in this encounter [facility] note* Diagnosis Seropositive rheumatoid arthritis (HCC)- Primary Rheumatoid arthritis Vitamin D deficiency Unspecified vitamin D deficiency documented in this encounter [facility] note* Diagnosis Vitamin D deficiency Unspecified vitamin D deficiency documented in this encounter [facility] note* Diagnosis Seropositive rheumatoid arthritis (HCC)- Primary Rheumatoid arthritis [facility]* Diagnosis Seropositive rheumatoid arthritis (HCC)- Primary Rheumatoid arthritis Vitamin D deficiency Unspecified vitamin D deficiency [facility]* Diagnosis Seropositive rheumatoid arthritis (HCC)- Primary Rheumatoid arthritis [facility]* Diagnosis Seropositive rheumatoid arthritis (HCC) Rheumatoid arthritis [facility]* Diagnosis Seropositive rheumatoid arthritis (HCC)- [...] Tobacco use disorder [facility]* Diagnosis Seropositive rheumatoid arthritis (HCC)- Primary Rheumatoid arthritis Vitamin D deficiency Unspecified vitamin D deficiency Synovitis Synovitis and tenosynovitis, unspecified documented in this encounter [facility] note* Diagnosis Smokes and motivated to quit- Primary Tobacco use disorder Seropositive rheumatoid arthritis (HCC) Rheumatoid arthritis [facility]* Diagnosis Seropositive rheumatoid arthritis (HCC)- Primary Rheumatoid arthritis documented in this encounter [facility] note* Diagnosis Seropositive rheumatoid arthritis (HCC)- Primary Rheumatoid arthritis documented in this encounter [facility] note* Diagnosis Seropositive rheumatoid arthritis (HCC) Rheumatoid arthritis documented in this encounter [facility] note* Diagnosis Seropositive rheumatoid arthritis (HCC)- Primary Rheumatoid arthritis documented in this encounter [facility] note* Diagnosis Seropositive rheumatoid arthritis (HCC)- [...] Other specified counseling documented in this encounter [facility] note* Diagnosis Seropositive rheumatoid arthritis (HCC)- Primary Rheumatoid arthritis documented in this encounter [facility] note* Diagnosis Seropositive rheumatoid arthritis (HCC)- Primary Rheumatoid arthritis documented in this encounter [facility] note* Diagnosis Seropositive rheumatoid arthritis (HCC)- Primary Rheumatoid arthritis Localized superficial swelling, mass, or lump documented in this encounter [facility] note* Diagnosis Seropositive rheumatoid arthritis (HCC)- Primary Rheumatoid arthritis Localized superficial swelling, mass, or lump Encounter for medication review and counseling Other specified counseling Synovitis Synovitis and tenosynovitis, unspecified Encounter to discuss test results Other specified counseling Medication monitoring encounter Encounter for therapeutic drug monitoring Smoker Tobacco use disorder documented in this encounter [facility] note* Diagnosis Seropositive rheumatoid arthritis (HCC)- Primary Rheumatoid arthritis Vitamin D deficiency Unspecified vitamin D deficiency documented in this encounter [facility] note* Diagnosis Wheezing- Primary documented in this encounter [facility] note* Diagnosis Seropositive rheumatoid arthritis (HCC)- Primary Rheumatoid arthritis Synovitis Synovitis and tenosynovitis, unspecified Vitamin D deficiency Unspecified vitamin D deficiency Localized superficial swelling, mass, or lump Encounter to discuss test results Other specified counseling Encounter for medication review and counseling Other specified counseling Medication monitoring encounter Encounter for therapeutic drug monitoring documented in this encounter [facility] note* Diagnosis Seropositive rheumatoid arthritis (HCC) Rheumatoid arthritis documented in this encounter [facility] note* Diagnosis ADHD (attention deficit hyperactivity disorder), combined type (CMS/HCC)- Primary Attention deficit disorder with hyperactivity Anxiety Anxiety state, unspecified Anxiety- Primary Anxiety state, unspecified Tobacco user Tobacco use disorder BMI 29.0-29.9,adult Adult ADHD (attention deficit hyperactivity disorder) ([facility]) Mild depression ([facility]) Depressive disorder, not elsewhere classified Adult ADHD (attention deficit hyperactivity disorder) ([facility])- Primary Tobacco user Tobacco use disorder Anxiety Anxiety state, unspecified Adult ADHD (attention deficit hyperactivity disorder) ([facility])- Primary Neutropenia, unspecified ([facility]) Neutropenia, unspecified Tobacco user Tobacco use disorder BMI 29.0-29.9,adult Rheumatoid arthritis, involving unspecified site, unspecified whether rheumatoid factor present ([facility]) Anxiety Anxiety state, unspecified Subacute maxillary sinusitis Wheezing Nausea Nausea alone Wheezing [facility]* Diagnosis ADHD (attention deficit hyperactivity disorder), combined type ([facility])- Primary Attention deficit disorder with hyperactivity Anxiety Anxiety state, unspecified Anxiety- Primary Anxiety state, unspecified Tobacco user Tobacco use disorder BMI 29.0-29.9,adult Adult ADHD (attention deficit hyperactivity disorder) ([facility]) Mild depression ([facility]) Depressive disorder, not elsewhere classified Adult ADHD (attention deficit hyperactivity disorder) ([facility])- Primary Tobacco user Tobacco use disorder Anxiety Anxiety state, unspecified Adult ADHD (attention deficit hyperactivity disorder) ([facility])- Primary Neutropenia, unspecified ([facility]) Neutropenia, unspecified Tobacco user Tobacco use disorder BMI 29.0-29.9,adult Rheumatoid arthritis, involving unspecified site, unspecified whether rheumatoid factor present ([facility]) Anxiety Anxiety state, unspecified Subacute maxillary sinusitis Wheezing Nausea Nausea alone ADHD (attention deficit hyperactivity disorder), combined type ([facility])- Primary Attention deficit disorder with hyperactivity Opioid abuse, uncomplicated ([facility]) Tobacco user Tobacco use disorder Rheumatoid arthritis, involving unspecified site, unspecified whether rheumatoid factor present ([facility]) Neutropenia, unspecified type ([facility]) Mild depression ([facility]) Depressive disorder, not elsewhere classified Anxiety Anxiety state, unspecified BMI 29.0-29.9,adult [facility]* Diagnosis ADHD (attention deficit hyperactivity disorder), combined type ([facility])- Primary Attention deficit disorder with hyperactivity Anxiety Anxiety state, unspecified Anxiety- Primary Anxiety state, unspecified Tobacco user Tobacco use disorder BMI 29.0-29.9,adult Adult ADHD (attention deficit hyperactivity disorder) ([facility]) Mild depression ([facility]) Depressive disorder, not elsewhere classified Adult ADHD (attention deficit hyperactivity disorder) ([facility])- Primary Tobacco user Tobacco use disorder Anxiety Anxiety state, unspecified Adult ADHD (attention deficit hyperactivity disorder) ([facility])- Primary Neutropenia, unspecified ([facility]) Neutropenia, unspecified Tobacco user Tobacco use disorder BMI 29.0-29.9,adult Rheumatoid arthritis, involving unspecified site, unspecified whether rheumatoid factor present ([facility]) Anxiety Anxiety state, unspecified Subacute maxillary sinusitis Wheezing Nausea Nausea alone ADHD (attention deficit hyperactivity disorder), combined type ([facility])- Primary Attention deficit disorder with hyperactivity Opioid abuse, uncomplicated ([facility]) Tobacco user Tobacco use disorder Rheumatoid arthritis, involving unspecified site, unspecified whether rheumatoid factor present ([facility]) Neutropenia, unspecified type ([facility]) Mild depression ([facility]) Depressive disorder, not elsewhere classified Anxiety Anxiety state, unspecified BMI 29.0-29.9,adult Wheezing [facility]* Diagnosis Adult ADHD (attention deficit hyperactivity disorder) ([facility])- Primary Neutropenia, unspecified ([facility]) Neutropenia, unspecified Tobacco user Tobacco use disorder BMI 29.0-29.9,adult Rheumatoid arthritis, involving unspecified site, unspecified whether rheumatoid factor present ([facility]) Anxiety Anxiety state, unspecified Subacute maxillary sinusitis Wheezing Nausea Nausea alone [facility]* Diagnosis ADHD (attention deficit hyperactivity disorder), combined type ([facility])- Primary Attention deficit disorder with hyperactivity Anxiety Anxiety state, unspecified Anxiety- Primary Anxiety state, unspecified Tobacco user Tobacco use disorder BMI 29.0-29.9,adult Adult ADHD (attention deficit hyperactivity disorder) ([facility]) Mild depression ([facility]) Depressive disorder, not elsewhere classified Adult ADHD (attention deficit hyperactivity disorder) ([facility])- Primary Tobacco user Tobacco use disorder Anxiety Anxiety state, unspecified Adult ADHD (attention deficit hyperactivity disorder) ([facility])- Primary Neutropenia, unspecified ([facility]) Neutropenia, unspecified Tobacco user Tobacco use disorder BMI 29.0-29.9,adult Rheumatoid arthritis, involving unspecified site, unspecified whether rheumatoid factor present ([facility]) Anxiety Anxiety state, unspecified Subacute maxillary sinusitis Wheezing Nausea Nausea alone ADHD (attention deficit hyperactivity disorder), combined type ([facility]/HCC)- Primary Attention deficit disorder with hyperactivity Opioid abuse, uncomplicated ([facility]) Tobacco user Tobacco use disorder Rheumatoid arthritis, involving unspecified site, unspecified whether rheumatoid factor present ([facility]) Neutropenia, unspecified type ([facility]) Mild depression ([facility]) Depressive disorder, not elsewhere classified Anxiety Anxiety state, unspecified BMI 29.0-29.9,adult Well woman exam with routine gynecological exam- Primary Routine gynecological examination Rheumatoid arthritis, unspecified ([facility]) Opioid abuse, uncomplicated ([facility]) Tobacco user Tobacco use disorder Screening [facility]ogram for breast cancer [facility] Diagnosis Seropositive rheumatoid arthritis (HCC)- Primary Rheumatoid arthritis [facility] Diagnosis Seropositive rheumatoid arthritis (HCC)- Primary Rheumatoid arthritis Medication monitoring encounter Encounter for therapeutic drug monitoring [facility] Diagnosis Seropositive rheumatoid arthritis (HCC)- Primary Rheumatoid arthritis documented in [facility] encounter [facility] note* Diagnosis ADHD (attention deficit hyperactivity disorder), combined type ([facility]/HCC)- Primary Attention deficit disorder with hyperactivity Anxiety Anxiety state, unspecified Anxiety- Primary Anxiety state, unspecified Tobacco user Tobacco use disorder BMI 29.0-29.9,adult Adult ADHD (attention deficit hyperactivity disorder) ([facility]) Mild depression ([facility]) Depressive disorder, not elsewhere classified Adult ADHD (attention deficit hyperactivity disorder) ([facility])- Primary Tobacco user Tobacco use disorder Anxiety Anxiety state, unspecified Adult ADHD (attention deficit hyperactivity disorder) ([facility])- Primary Neutropenia, unspecified ([facility]) Neutropenia, unspecified Tobacco user Tobacco use disorder BMI 29.0-29.9,adult Rheumatoid arthritis, involving unspecified site, unspecified whether rheumatoid factor present ([facility]) Anxiety Anxiety state, unspecified Subacute maxillary sinusitis Wheezing Nausea Nausea alone ADHD (attention deficit hyperactivity disorder), combined type ([facility]/HCC)- Primary Attention deficit disorder with hyperactivity Opioid abuse, uncomplicated ([facility]) Tobacco user Tobacco use disorder Rheumatoid arthritis, involving unspecified site, unspecified whether rheumatoid factor present ([facility]) Neutropenia, unspecified type ([facility]) Mild depression ([facility]) Depressive disorder, not elsewhere classified Anxiety Anxiety state, unspecified BMI 29.0-29.9,adult Well woman exam with routine gynecological exam- Primary Routine gynecological examination Rheumatoid arthritis, unspecified ([facility]) Opioid abuse, uncomplicated ([facility]) Tobacco user Tobacco use disorder Screening mammogram for breast cancer Wheezing [facility]* Diagnosis ADHD (attention deficit hyperactivity disorder), combined type ([facility])- Primary Attention deficit disorder with hyperactivity Anxiety Anxiety state, unspecified Anxiety- Primary Anxiety state, unspecified Tobacco user Tobacco use disorder BMI 29.0-29.9,adult Adult ADHD (attention deficit hyperactivity disorder) ([facility]) Mild depression ([facility]) Depressive disorder, not elsewhere classified Adult ADHD (attention deficit hyperactivity disorder) ([facility])- Primary Tobacco user Tobacco use disorder Anxiety Anxiety state, unspecified Adult ADHD (attention deficit hyperactivity disorder) ([facility])- Primary Neutropenia, unspecified ([facility]) Neutropenia, unspecified Tobacco user Tobacco use disorder BMI 29.0-29.9,adult Rheumatoid arthritis, involving unspecified site, unspecified whether rheumatoid factor present ([facility]) Anxiety Anxiety state, unspecified Subacute maxillary sinusitis Wheezing Nausea Nausea alone ADHD (attention deficit hyperactivity disorder), combined type ([facility])- Primary Attention deficit disorder with hyperactivity Opioid abuse, uncomplicated ([facility]) Tobacco user Tobacco use disorder Rheumatoid arthritis, involving unspecified site, unspecified whether rheumatoid factor present ([facility]) Neutropenia, unspecified type ([facility]) Mild depression ([facility]) Depressive disorder, not elsewhere classified Anxiety Anxiety state, unspecified BMI 29.0-29.9,adult Well woman exam with routine gynecological exam- Primary Routine gynecological examination Rheumatoid arthritis, unspecified ([facility]) Opioid abuse, uncomplicated ([facility]) Tobacco user Tobacco use disorder Screening mammogram for breast cancer ADHD (attention deficit hyperactivity disorder), combined type ([facility])- Primary Attention deficit disorder with hyperactivity Neutropenia, unspecified type ([facility]) Opioid abuse, uncomplicated ([facility]) Cigarette nicotine dependence without complication Anxiety Anxiety state, unspecified Wheezing Nausea Nausea alone documented [facility] encounter [facility]* Diagnosis ADHD (attention deficit hyperactivity disorder), combined type ([facility])- Primary Attention deficit disorder with hyperactivity Anxiety Anxiety state, unspecified Anxiety- Primary Anxiety state, unspecified Tobacco user Tobacco use disorder BMI 29.0-29.9,adult Adult ADHD (attention deficit hyperactivity disorder) ([facility]) Mild depression ([facility]) Depressive disorder, not elsewhere classified Adult ADHD (attention deficit hyperactivity disorder) ([facility])- Primary Tobacco user Tobacco use disorder Anxiety Anxiety state, unspecified Adult ADHD (attention deficit hyperactivity disorder) ([facility])- Primary Neutropenia, unspecified ([facility]) Neutropenia, unspecified Tobacco user Tobacco use disorder BMI 29.0-29.9,adult Rheumatoid arthritis, involving unspecified site, unspecified whether rheumatoid factor present ([facility]) Anxiety Anxiety state, unspecified Subacute maxillary sinusitis Wheezing Nausea Nausea alone ADHD (attention deficit hyperactivity disorder), combined type ([facility])- Primary Attention deficit disorder with hyperactivity Opioid abuse, uncomplicated ([facility]) Tobacco user Tobacco use disorder Rheumatoid arthritis, involving unspecified site, unspecified whether rheumatoid factor present ([facility]) Neutropenia, unspecified type ([facility]) Mild depression ([facility]) Depressive disorder, not elsewhere classified Anxiety Anxiety state, unspecified BMI 29.0-29.9,adult Well woman exam with routine gynecological exam- Primary Routine gynecological examination Rheumatoid arthritis, unspecified Opioid abuse, uncomplicated ([facility]) Tobacco user Tobacco use disorder Screening mammogram for breast cancer ADHD (attention deficit hyperactivity disorder), combined type ([facility])- Primary Attention deficit disorder with hyperactivity Neutropenia, unspecified type ([facility]) Opioid abuse, uncomplicated ([facility]) Cigarette nicotine dependence without complication Anxiety Anxiety state, unspecified Wheezing Nausea Nausea alone Wheezing documented in this encounter [facility]* Diagnosis ADHD (attention deficit hyperactivity disorder), combined type ([facility])- Primary Attention deficit disorder with hyperactivity Anxiety Anxiety state, unspecified Anxiety- Primary Anxiety state, unspecified Tobacco user Tobacco use disorder BMI 29.0-29.9,adult Adult ADHD (attention deficit hyperactivity disorder) ([facility]) Mild depression ([facility]) Depressive disorder, not elsewhere classified Adult ADHD (attention deficit hyperactivity disorder) ([facility])- Primary Tobacco user Tobacco use disorder Anxiety Anxiety state, unspecified Adult ADHD (attention deficit hyperactivity disorder) ([facility])- Primary Neutropenia, unspecified ([facility]) Neutropenia, unspecified Tobacco user Tobacco use disorder BMI 29.0-29.9,adult Rheumatoid arthritis, involving unspecified site, unspecified whether rheumatoid factor present ([facility]) Anxiety Anxiety state, unspecified Subacute maxillary sinusitis Wheezing Nausea Nausea alone ADHD (attention deficit hyperactivity disorder), combined type ([facility])- Primary Attention deficit disorder with hyperactivity Opioid abuse, uncomplicated ([facility]) Tobacco user Tobacco use disorder Rheumatoid arthritis, involving unspecified site, unspecified whether rheumatoid factor present ([facility]) Neutropenia, unspecified type ([facility]) Mild depression ([facility]) Depressive disorder, not elsewhere classified Anxiety Anxiety state, unspecified BMI 29.0-29.9,adult Well woman exam with routine gynecological exam- Primary Routine gynecological examination Rheumatoid arthritis, unspecified Opioid abuse, uncomplicated ([facility]) Tobacco user Tobacco use disorder Screening mammogram for breast cancer ADHD (attention deficit hyperactivity disorder), combined type ([facility])- Primary Attention deficit disorder with hyperactivity Neutropenia, unspecified type ([facility]) Opioid abuse, uncomplicated ([facility]) Cigarette nicotine dependence without complication Anxiety Anxiety state, unspecified Wheezing Nausea Nausea alone ADHD (attention deficit hyperactivity disorder), combined type ([facility]) Attention deficit disorder with hyperactivity documented in [...] unspecified site, unspecified whether rheumatoid factor present ([facility]) Anxiety Anxiety state, unspecified Subacute maxillary sinusitis Wheezing Nausea Nausea alone ADHD (attention deficit hyperactivity disorder), combined type- Primary Attention deficit disorder with hyperactivity Opioid abuse, uncomplicated ([facility]) Tobacco user Tobacco use disorder Rheumatoid arthritis, involving unspecified site, unspecified whether rheumatoid factor present ([facility]) Neutropenia, unspecified type Mild depression Depressive disorder, not elsewhere classified Anxiety Anxiety state, unspecified BMI 29.0-29.9,adult Well woman exam with routine gynecological exam- Primary Routine gynecological examination Rheumatoid arthritis, unspecified ([facility]) Opioid abuse, uncomplicated ([facility]) Tobacco user Tobacco use disorder Screening mammogram for breast cancer ADHD (attention deficit hyperactivity disorder), combined type- Primary Attention deficit disorder with hyperactivity Neutropenia, unspecified type Opioid abuse, uncomplicated ([facility]) Cigarette nicotine dependence without complication Anxiety Anxiety state, unspecified Wheezing Nausea Nausea alone ADHD (attention deficit hyperactivity disorder), combined type- Primary Attention deficit disorder with hyperactivity Opioid abuse, uncomplicated ([facility]) Mild depression Depressive disorder, not elsewhere classified Anxiety Anxiety state, unspecified Cigarette nicotine dependence without complication Median nerve neuritis, left documented in this encounter [facility]* [...] deficit disorder with hyperactivity Opioid abuse, uncomplicated ([facility]) Tobacco user Tobacco use disorder Rheumatoid arthritis, involving unspecified site, unspecified whether rheumatoid factor present ([facility]) Neutropenia, unspecified type Mild depression Depressive disorder, not elsewhere classified Anxiety Anxiety state, unspecified BMI 29.0-29.9,adult Well woman exam with routine gynecological exam- Primary Routine gynecological examination Rheumatoid arthritis, unspecified ([facility]) Opioid abuse, uncomplicated ([facility]) Tobacco user Tobacco use disorder Screening mammogram for breast cancer ADHD (attention deficit hyperactivity disorder), combined type- Primary Attention deficit disorder with hyperactivity Neutropenia, unspecified type Opioid abuse, uncomplicated ([facility]) Cigarette nicotine dependence without complication Anxiety Anxiety state, unspecified Wheezing Nausea Nausea alone ADHD (attention deficit hyperactivity disorder), combined type- Primary Attention deficit disorder with hyperactivity Opioid abuse, uncomplicated ([facility]) Mild depression Depressive disorder, not elsewhere classified Anxiety Anxiety state, unspecified Cigarette nicotine dependence without complication Median nerve neuritis, left Nausea Nausea alone ADHD (attention deficit hyperactivity disorder), combined type Attention deficit disorder with hyperactivity documented in this encounter [facility]* Type Assessment Date No Information [facility] Work Phone: History and physical note* Clinical Note Date No Information [facility] Work Phone: History of Past illness Narrative* Condition Effective Dates (start - stop) O utcome No Information [facility] Work Phone: History of Present illness Narrative* Encounter Date Complaint History Of Prese nt Illness No Information [facility] Work Phone: Instructions* Date Instruction Additional Infor mation No Information [facility] Work Phone: Progress note* Clinical Note Date No Information [facility] Work Phone: Reason for referral (narrative)* Diagnostic Procedure Only (Routine) - AuthorizedSpecialtyDiagnoses / ProceduresReferred By Contact Referred To ContactXR IMAGING Diagnoses Seropositive rheumatoid arthritis (HCC) Procedures XR FOOT GENERAL 3V AP/LAT/OBL BILATERAL RADEX FOOT COMPLETE MINIMUM 3 VIEWS Fariba Hill APRN.FOOD SAMPLER [address] [place] [address] X[facility] Imaging Referral IDStatusReasonStart DateExpiration DateVisits RequestedVisits [id number] Auto-Generated Referral / [facility] for referral (narrative)* Diagnostic Procedure Only (Routine) - Pending ReviewSpecialtyDiagnoses / ProceduresReferred By Contact Referred To ContactXR IMAGING Diagnoses Seropositive rheumatoid arthritis (HCC) Procedures XR FOOT GENERAL 3V AP/LAT/OBL BILATERAL RADEX FOOT COMPLETE MINIMUM 3 VIEWS Fariba Hill APRN.FOOD SAMPLER [address] [place] [address] [facility] Imaging Referral IDStatusReasonStart DateExpiration DateVisits RequestedVisits [id number] Review Auto-Generated Referral / [facility] for referral (narrative)* Diagnostic Procedure Only (Routine) - Pending ReviewSpecialtyDiagnoses / ProceduresReferred By Contact Referred To ContactXR IMAGING Diagnoses Seropositive rheumatoid arthritis (HCC) Procedures XR FOOT GENERAL 3V AP/LAT/OBL BILATERAL RADEX FOOT COMPLETE MINIMUM 3 VIEWS Fariba Hill, TRANSCRIPTION.FOOD SAMPLER [address] [place] [address] [place] [address] Referral IDStatusReasonStart DateExpiration DateVisits RequestedVisits [id number] Review Auto-Generated Referral / [facility] for referral (narrative)* Diagnostic Procedure Only (Routine) - Pending ReviewSpecialtyDiagnoses / ProceduresReferred By Contact Referred To ContactUS IMAGING Diagnoses Seropositive rheumatoid arthritis (HCC) Localized superficial swelling, mass, or lump Procedures US EXTREMITY MASS/FLUID COLLECTION LEFT Fariba Hill, TRANSCRIPTION.FOOD SAMPLER [address] [facility] [place] [address] [place] [address] Referral IDStatusReasonStart DateExpiration DateVisits RequestedVisits [id number] Review Auto-Generated Referral / [facility] for referral (narrative)* Reason For Referral No Information [facility]* Diagnostic Procedure Only (Routine) - ClosedSpecialtyDiagnoses / ProceduresReferred By ContactReferred To ContactXR IMAGING Diagnoses Seropositive rheumatoid arthritis (HCC) Procedures XR FOOT GENERAL 3V AP/LAT/OBL BILATERAL RADEX FOOT COMPLETE MINIMUM 3 VIEWS Fariba Hill, TRANSCRIPTION.FOOD SAMPLER [address] [place] [address] [place] [address] Referral IDStatusReasonStart DateExpiration DateVisits RequestedVisits [id number] Auto-Generated Referral / [facility] of systems Narrative - Reported* System Pos/Neg Findings No Information [facility] Work Phone: Discharge Instructions * Instructions* Loida Caro PA-C [...] be sent through Care Everywhere. * Candidiasis (Ecuadorean) * Miscarriage: Threatened (Ecuadorean) documented in this encounter* Instructions* Loida Caro PA-C - 01/28/2019 Use ice rest keep wrist in splint. Follow-up with orthopedic provider listed below for further evaluation of continued pain. * Attachments The following attachments cannot be sent through Care Everywhere. * Carpal Tunnel Syndrome (Ecuadorean) documented in this encounter* Instructions* Tami Payne RN - 05/02/2019 Outpatient Instructions for IM or Subcutaneous Injections [address] [place] [address] You are advised to carry out the [...] Outpatient Instructions for IM or Subcutaneous Injections [address] [place] [address] You are advised to carry out the [...] Follow-up with your OB doctor as specified. [facility] OB Department phone: Dr. Kera Pardo [facility] Dr. Mendy Viera [address] [facility] [id number] [place] [address] or [place] DIET Eat a well balanced diet focusing on foods high in fiber and protein. Drink plenty of fluids especially water. To avoid constipation you may take a mild stool softener as recommended by your doctor or golf ball winder. ACTIVITY Gradually increase your activity. Resume exercise regimen only after advice by your doctor or golf ball winder. Avoid lifting anything heavier than a gallon of milk for SIX weeks. Avoid driving until your doctor or golf ball winder has given their approval. Rise slowly from [...] medications as recommended by your doctor or golf ball winder for pain If you develop a warm, [...] vitamins as directed by your doctor or golf ball winder. Refer to the booklet in the folder/binder for more information. If you feel you need more assistance or have questions, please call Sarah Wang IBCLC, industrial methods consultant, at or the OB department to [...] through Care Everywhere. * COVID-19 Viral Test (Ecuadorean) documented in this encounter Assessments Diagnosis Threatened [...] Suspected COVID-19 virus infection- Primary Advance Directives TypeDate RecordedPatient RepresentativeExplanationAdvance Directives and Living WillPower of AttorneyTypeDate RecordedPatient RepresentativeExplanationAdvance Directives and Living WillPower of AttorneyCode StatusDate ActivatedDate InactivatedCommentsFull Code07/12/2019 1:54 PMFull Code07/11/2019 8:21 PM07/12/2019 1:54 PMFull Code07/11/2019 7:48 PM07/11/2019 7:51 PMTypeDate RecordedPatient RepresentativeExplanationACP-Advance DirectiveACP-Power of AttorneyCode Status Date ActivatedDate InactivatedCommentsFull Code07/12/2019 1:54 PM07/13/2019 3:24 PM Directive Yes / No Effective Date File Name No Information Reason for Referral StatusReasonSpecialtyDiagnoses / ProceduresReferred By ContactReferred To ContactOpenRadiology Diagnoses Superficial thrombophlebitis of left upper extremity Procedures VL DUP UPPER EXTREMITY VENOUS LEFT Mk Mayo MD [address] [place] [address] StatusReasonSpecialtyDiagnoses / ProceduresReferred By ContactReferred To ContactOpenRadiology Diagnoses Right upper quadrant abdominal pain Procedures US Gallbladder Tosha Mcginnis, TRANSCRIPTION - CN [address] [facility] [address] [place] [address] SpecialtyDiagnoses / ProceduresReferred By ContactReferred To ContactPodiatry Diagnoses Pain in left foot Procedures CONSULT TO PODIATRY OFFICE/OUTPATIENT [facility] 60-74 MINUTES Fariba Hill, TRANSCRIPTION.FOOD SAMPLER [address] [place] [address] Referral IDStatusReasonStart DateExpiration DateVisits RequestedVisits [id number] Review PCP Requested Referral [id number] / ProceduresReferred By ContactReferred To ContactOrthopedics Diagnoses Pain in right foot Procedures CONSULT TO ORTHOPAEDICS OFFICE/OUTPATIENT [facility] 60-74 MINUTES Fariba Hill, TRANSCRIPTION.FOOD SAMPLER [address] [place] [address] Referral IDStatusReasonStart DateExpiration DateVisits RequestedVisits [id number] Review PCP Requested Referral /[id number] / ProceduresReferred By ContactReferred To ContactDermatology Diagnoses Localized superficial swelling, mass, or lump Seropositive rheumatoid arthritis (HCC) Procedures CONSULT TO DERMATOLOGY OFFICE/OUTPATIENT [facility] 60 MINUTES Fariba Hill, TRANSCRIPTION.FOOD SAMPLER [address] [place] [address] Referral IDStatusReasonStart DateExpiration DateVisits RequestedVisits [id number] PCP Requested Referral /[id number] / ProceduresReferred By ContactReferred To ContactUS IMAGING Diagnoses Localized superficial swelling, mass, or lump Seropositive rheumatoid arthritis (HCC) Procedures US ELBOW LEFT US LMTD JOINT/OTH NONVASC XTR STRUX R-T W/IMG Fariba Hill, TRANSCRIPTION.FOOD SAMPLER [address] [place] [address] [place] [address] Referral IDStatusReasonStart DateExpiration DateVisits RequestedVisits [id number] Review Auto-Generated Referral /[id number] / ProceduresReferred By ContactReferred To Contact Diagnoses Adult ADHD (attention deficit hyperactivity disorder) ([facility]) Niya Santiago, MARY [address] [place] [address] Referral IDStatusReasonStart DateExpiration DateVisits RequestedVisits [id number] IDStatusReasonStart DateExpiration Date Visits RequestedVisits [id number] IDStatusReason Start DateExpiration DateVisits RequestedVisits [id number] History of Present Illness * Any [place] [...] 80 18 07/12/19 1147 108/66 75 18 05/2020 1145 107/65 68 18 05 1127 109/65 83 18 05 1116 128/61 57 18 05 1044 113/66 86 05 1042 (!) 82/52 75 05 1031 (!) 89/53 60 05 1028 (!) 88/54 91 14 07/12/19 1013 102/62 64 05 1000 119/73 64 0520 0951 117/73 68 16 98 % 0520/20 0946 98 % 05/20/20 0943 121/73 63 16 05/ 0941 98 % 05 0936 98 % 05 0931 98 % 0520 0928 118/81 61 16 05/ 0915 97.5 F (36.4 C) Axillary 07/12/19 0912 118/82 72 07/12/19 0906 117/72 67 98 % 05 0901 97 % 05 0900 (!) 105/59 63 05/ 0856 97 % 05 0855 124/69 69 05/ 0853 130/84 86 07/12/19 0851 127/76 72 05 0849 133/87 90 05 0846 132/84 81 05 0844 130/82 77 05 0843 97 % 05 0842 129/83 76 05 0840 139/88 78 05 0838 (!) 140/87 75 96 % 05 0836 (!) 149/90 81 05/20 0834 134/85 75 05 0833 97 % [...] states to leave pitocin off. * Prema Bhat, VALORIE - 07/12/2019 9:40 AM EDT Tosha called and notified that pt had spontaneous 5 minute decel down to 65bpm. Pt flipped to both sides, IV bolus given and pit turned off. Tosha pulls strip up in office and views it while fha underwriter talking. Updated that pt 3 cm, [...] in this encounter Summary Purpose Family History Family Member Type Diagnosis Age At Onset Mother Problem (finding) rheumatoid art hritis FatherProblem (finding)Alive and wellMotherProblem (finding) Medications Administered Section Medication OrderMAR ActionAction DateDoseRateSite acetaminophen 650 mg tab(s) (TYLENOL) 650 mg, ORAL, ONCE, 1 dose, On Wed07/23/21 at 0930, No more than 4000 mg of acetaminophen should be given per day (FROM ALL SOURCES), If ordered PRN for pain, patient/guardian may elect to receive this medication for higher pain levels INSTEAD of the opioid, if preferred: N/A Given07/23/2021 9:28 AM [id number] mg diphenhydrAMINE 25 mg (BENADRYL) 25 mg, ORAL, ONCE, 1 dose, On Wed07/23/21 at 0930 Given07/23/2021 9:28 AM EDT25 mg inFLIXimab-abda 200 mg in NaCl 0.9% 250 mL (RENFLEXIS) 200 mg, INTRAVENOUS, at 83.33-250 mL/hr, Administer over 1-3 Hours, ONCE, 1 dose, On Wed07/23/21 at 0930, TOTAL VOLUME = 250 mL. EXP: 07/30/21 Administer with 0.2 micron filter. Rate/Dose Ieujxj0207/23/2021 11:38 AM [id number] mL/hrRate/Dose Igmbcc9207/23/2021 11:08 AM FMK422 mL/hrRate/Dose Urvrjm2307/23/2021 10:53 AM EDT80 mL/hr methylPREDNISolone sod succinate(PF) 125 mg injection (SOLU-Medrol) 125 mg, INTRAVENOUS, ONCE, 1 dose, On Wed07/23/21 at 0930 Given07/23/2021 9:36 AM [id number] mgMedication OrderMAR ActionAction DateDoseRate Site acetaminophen 650 mg tab(s) (TYLENOL) 650 mg, ORAL, ONCE, 1 dose, On Wed08/06/21 at 1330, No more than 4000 mg of acetaminophen should begiven per day (FROM ALL SOURCES), If ordered PRN for pain, patient/guardian may elect to receive this medication for higher pain levels INSTEAD of the opioid, if preferred: N/A Given08/06/2021 1:26 PM [id number] mg diphenhydrAMINE 25 mg (BENADRYL) 25 mg, ORAL, ONCE, 1 dose, On Wed08/06/21 at 1330 Given08/06/2021 1:26 PM EDT25 mg inFLIXimab-abda 200 mg in NaCl 0.9% 250 mL (RENFLEXIS) 200 mg, INTRAVENOUS, at 83.33-250 mL/hr, Administer over 1-3 Hours, ONCE, 1 dose, On Wed08/06/21 [id number], EXP: 08/14/21 Administer with 0.2 micron filter. Rate/Dose Qhkysx7008/06/2021 3:37 PM VTR295 mL/hrRate/Dose Xdxrrb7708/06/2021 3:07 PM MQV861 mL/hrRate/Dose Gmfctl7508/06/2021 2:52 PM EDT80 mL/hr methylPREDNISolone sod succinate(PF) 125 mg injection (SOLU-Medrol) 125 mg, INTRAVENOUS, ONCE, 1 dose, On Wed08/06/21 at 1330 Given08/06/2021 1:34 PM [id number] mgMedication OrderMAR ActionAction DateDoseRate Site acetaminophen 650 mg tab(s) (TYLENOL) 650 mg, ORAL, ONCE, 1 dose, On Wed09/03/21 at 1330, No more than 4000 mg of acetaminophen should begiven per day (FROM ALL SOURCES), If ordered PRN for pain, patient/guardian may elect to receive this medication for higher pain levels INSTEAD of the opioid, if preferred: N/A Given09/03/2021 1:10 PM VIZ137 mg diphenhydrAMINE 25 mg (BENADRYL) 25 mg, ORAL, ONCE, 1 dose, On Wed09/03/21 at 1330 09/03/2021 1:10 PM EDT25 mg inFLIXimab-abda 200 mg in NaCl 0.9% 250 mL (RENFLEXIS) 200 mg, INTRAVENOUS, at 83.33-250 mL/hr, Administer over 1-3 Hours, ONCE, 1 dose, On Wed09/03/21 [id number], TOTAL VOLUME = 250 mL. EXP: 09/11/21 Administer with 0.2 micron filter. Rate/Dose Egxrnt9509/03/2021 3:10 PM ICZ569 mL/hrRate/Dose Uexgch8109/03/2021 2:40 PM YAY807 mL/hrRate/Dose Vssrbj7609/03/2021 2:25 PM EDT80 mL/hr methylPREDNISolone sod succinate(PF) 125 mg injection (SOLU-Medrol) 125 mg, INTRAVENOUS, ONCE, 1 dose, On Wed09/03/21 at 1330 09/03/2021 1:20 PM BKI691 mgMedication OrderMAR ActionAction DateDoseRate Site acetaminophen 650 mg tab(s) (TYLENOL) 650 mg, ORAL, ONCE, 1 dose, On Wed11/13/21 at 1330, No more than 4000 mg of acetaminophen should begiven per day (FROM ALL SOURCES), If ordered PRN for pain, patient/guardian may elect to receive this medication for higher pain levels INSTEAD of the opioid, if preferred: N/A Given11/13/2021 1:29 PM AZI613 mg diphenhydrAMINE 25 mg (BENADRYL) 25 mg, ORAL, ONCE, 1 dose, On Wed11/13/21 at 1330 11/13/2021 1:29 PM EDT25 mg inFLIXimab-abda 200 mg in NaCl 0.9% 250 mL (RENFLEXIS) 200 mg, INTRAVENOUS, at 83.33-250 mL/hr, Administer over 1-3 Hours, ONCE, 1 dose, On Wed11/13/21 [id number], TOTAL VOLUME = 250 mL. EXP: 11/23/21 Administer with 0.2 micron filter. New Bag/Syringe/Wqlchb1811/13/2021 2:01 PM ZDV330 mg125 mL/hr methylPREDNISolone sod succinate(PF) 125 mg injection (SOLU-Medrol) 125 mg, INTRAVENOUS, ONCE, 1 dose, On Diane 11/13/21 at 1330 Given11/13/2021 1:35 PM [id number] mgMedication OrderMAR ActionAction DateDoseRate Site acetaminophen 650 mg tab(s) (TYLENOL) 650 mg, ORAL, ONCE, 1 dose, On Wed01/05/22 at 1100, No more than 4000 mg of acetaminophen should be given per day (FROM ALL SOURCES), If ordered PRN for pain, patient/guardian may elect to receive this medication for higher pain levels INSTEAD of the opioid, if preferred: N/A Given01/05/2022 10:51 AM GZQ360 mg diphenhydrAMINE 25 mg (BENADRYL) 25 mg, ORAL, ONCE, 1 dose, On Wed01/05/22 at 1100 Given01/05/2022 10:52 AM EST25 mg inFLIXimab-abda 200 mg in NaCl 0.9% 250 mL (RENFLEXIS) 200 mg, INTRAVENOUS, at 83.33-250 mL/hr, Administer over 1-3 Hours, ONCE, 1 dose, On Wed01/05/22 at 1100, TOTAL VOLUME = 250 mL. EXP: 01/11/22 Administer with 0.2 micron filter. New Bag/Syringe/Twszcm8901/05/2022 11:33 AM PZA267 mg125 mL/hr methylPREDNISolone sod succinate(PF) 125 mg injection (SOLU-Medrol) 125 mg, INTRAVENOUS, ONCE, 1 dose, On Wed01/05/22 at 1100 Given01/05/2022 11:00 AM UGB439 mgMedication OrderMAR ActionAction DateDoseRate Site acetaminophen 650 mg tab(s) (TYLENOL) 650 mg, ORAL, ONCE, 1 dose, On Wed02/24/22 at 1000, No more than 4000 mg of acetaminophen should be given per day (FROM ALL SOURCES), If ordered PRN for pain, patient/guardian may elect to receive this medication for higher pain levels INSTEAD of the opioid, if preferred: N/A Given02/24/2022 10:05 AM CQJ891 mg diphenhydrAMINE 25 mg (BENADRYL) 25 mg, ORAL, ONCE, 1 dose, On Wed02/24/22 at 1000 Given02/24/2022 10:05 AM EST25 mg inFLIXimab-abda 400 mg in NaCl 0.9% 250 mL (RENFLEXIS) 400 mg, INTRAVENOUS, at 83.33-250 mL/hr, Administer over 1-3 Hours, ONCE, 1 dose, On Wed02/24/22 at 1000, TOTAL VOLUME - Expires: 03/05/22 @ 0800 (refirgerated) Administer with 0.2 micron filter. New Bag/Syringe/Pylevx7002/24/2022 10:42 AM FBP510 mg125 mL/hr methylPREDNISolone sod succinate(PF) 125 mg injection (SOLU-Medrol) 125 mg, INTRAVENOUS, ONCE, 1 dose, On Wed02/24/22 at 1000 Given02/24/2022 10:08 AM VFZ675 mgMedication OrderMAR ActionAction DateDoseRate Site acetaminophen 650 mg tab(s) (TYLENOL) 650 mg, ORAL, ONCE, 1 dose, On Wed04/14/22 at 1100, No more than 4000 mg of acetaminophen should begiven per day (FROM ALL SOURCES), If ordered PRN for pain, patient/guardian may elect to receive this medication for higher pain levels INSTEAD of the opioid, if preferred: N/A Given04/14/2022 11:12 AM IOT596 mg diphenhydrAMINE 25 mg (BENADRYL) 25 mg, ORAL, ONCE, 1 dose, On Wed04/14/22 at 1100 Given04/14/2022 11:12 AM EST25 mg inFLIXimab-abda 400 mg in NaCl 0.9% 250 mL (RENFLEXIS) 400 mg, INTRAVENOUS, at 83.33-250 mL/hr, Administer over 1-3 Hours, ONCE, 1 dose, On Wed04/14/22 gi1678, TOTAL VOLUME = 250 mL. EXP: 1400 Administer with 0.2 micron filter. New Bag/Syringe/Flfxzi4104/14/2022 11:44 AM MTG820 mg125 mL/hr methylPREDNISolone sod succinate(PF) 125 mg injection (SOLU-Medrol) 125 mg, INTRAVENOUS, ONCE, 1 dose, On Wed04/14/22 at 1100 Given04/14/2022 11:13 AM UAJ152 mgMedication OrderMAR ActionAction DateDoseRate Site acetaminophen 650 mg tab(s) (TYLENOL) 650 mg, ORAL, ONCE, 1 dose, On Wed06/23/22 at 1230, No more than 4000 mg of acetaminophen should be given per day (FROM ALL SOURCES), If ordered PRN for pain, patient/guardian may elect to receive this medication for higher pain levels INSTEAD of the opioid, if preferred: N/A Given06/23/2022 12:22 PM AUI034 mg diphenhydrAMINE 25 mg (BENADRYL) 25 mg, ORAL, ONCE, 1 dose, On Wed06/23/22 at 1230 Given06/23/2022 12:22 PM EDT25 mg inFLIXimab-abda 400 mg in NaCl 0.9% 250 mL (RENFLEXIS) 400 mg, INTRAVENOUS, at 83.33-250 mL/hr, Administer over 1-3 Hours, ONCE, 1 dose, On Wed06/23/22 at 1230, TOTAL VOLUME = 250 mL. EXP: 06/23/22 1400 Administer with 0.2 micron filter. New Bag/Syringe/Dybboo8606/23/2022 1:10 PM SHE754 mg125 mL/hr methylPREDNISolone sod succinate(PF) 125 mg injection (SOLU-Medrol) 125 mg, INTRAVENOUS, ONCE, 1 dose, On Wed06/23/22 at 1230 Given06/23/2022 12:31 PM SNS350 mgMedication OrderMAR ActionAction DateDoseRate Site acetaminophen 650 mg tab(s) (TYLENOL) 650 mg, ORAL, ONCE, 1 dose, On Wed09/17/22 at 0930, No more than 4000 mg of acetaminophen should begiven per day (FROM ALL SOURCES), If ordered PRN for pain, patient/guardian may elect to receive this medication for higher pain levels INSTEAD of the opioid, if preferred: N/A Given09/17/2022 9:40 AM VCQ789 mg diphenhydrAMINE 25 mg (BENADRYL) 25 mg, ORAL, ONCE, 1 dose, On Diane 09/17/22 at 0930 Given09/17/2022 9:40 AM EDT25 mg inFLIXimab-axxq 500 mg in NaCl 0.9% 250 mL (AVSOLA) 500 mg, INTRAVENOUS, at 83.33-250 mL/hr, Administer over 1-3 Hours, ONCE, 1 dose, On Diane 09/17/22 [id number], TOTAL VOLUME - Expires: 09/25/22 @ 1300 (refrigerated) Administer with 0.2 micron filter. New Bag/Syringe/Zdchat0209/17/2022 10:10 AM ZEX450 mg125 mL/hr methylPREDNISolone sod succinate(PF) 125 mg injection (SOLU-Medrol) 125 mg, INTRAVENOUS, ONCE, 1 dose, On Diane 09/17/22 at 0930 Given09/17/2022 9:45 AM CLN085 mgMedication OrderMAR ActionAction DateDoseRate Site acetaminophen 650 mg tab(s) (TYLENOL) 650 mg, ORAL, ONCE, 1 dose, On Diane 10/22/22 at 1000, No more than 4000 mg of acetaminophen should begiven per day (FROM ALL SOURCES), If ordered PRN for pain, patient/guardian may elect to receive this medication for higher pain levels INSTEAD of the opioid, if preferred: N/A Given10/22/2022 9:49 AM IMB811 mg diphenhydrAMINE 25 mg (BENADRYL) 25 mg, ORAL, ONCE, 1 dose, On Diane 10/22/22 at 1000 Given10/22/2022 9:49 AM EDT25 mg diphenhydrAMINE 50 mg injection (BENADRYL) 50 mg, INTRAVENOUS, NEEDED, 1 dose, Starting on Diane 10/22/22 at 0938, Until Diane 10/22/22 at 1040, Administer per hypersensitivity/anaphylaxis grading in nursing communication Given10/22/2022 10:40 AM EDT50 mg hydrocortisone sodium succinate (PF) 100 mg injection (Solu-CORTEF) 100 mg, INTRAVENOUS, NEEDED, 1 dose, Starting on Diane 10/22/22 at 0938, Until Diane 10/22/22 at 1042,Administer per hypersensitivity/anaphylaxis grading in nursing communication Given10/22/2022 10:42 AM NXC810 mg inFLIXimab-axxq 500 mg in NaCl 0.9% 250 mL (AVSOLA) 500 mg, INTRAVENOUS, at 83.33-250 mL/hr, Administer over 1-3 Hours, ONCE, 1 dose, On Diane 23 fo4218, Total Volume: = 250 mL EXP: 10/30/22 Administer with 0.2 micron filter. New Bag/Syringe/Pvqdsk9610/22/2022 10:20 AM UZF000 mg250 mL/hr methylPREDNISolone sodium succinate 125 mg injection (SOLU-Medrol) 125 mg, INTRAVENOUS, ONCE, 1 dose, On Wed10/22/22 at 1000 Given10/22/2022 9:55 AM BOL348 mgMedication OrderMAR ActionAction DateDoseRate Site tocilizumab 281.2 mg in NaCl 0.9% 100 mL (ACTEMRA) 281.2 mg (4 mg/kg/dose 70.3 kg Order-specific weight), INTRAVENOUS, at 100 mL/hr, Administer over 60 Minutes, ONCE, 1 dose, On Wed11/27/22 at 1000, PROTECT FROM LIGHT -- TOTAL VOLUME = 100 ML EXP: 11/27/22 (Refrigerated) New Bag/Syringe/Oscidb9211/27/2022 9:56 AM YYR746.2 mg100 mL/hrMedication OrderMAR ActionAction DateDoseRateSite tocilizumab 281.2 mg in NaCl 0.9% 100 mL (ACTEMRA) 281.2 mg (4 mg/kg/dose 70.3 kg Order-specific weight), INTRAVENOUS, at 100 mL/hr, Administer over 60 Minutes, ONCE, 1 dose, On Wed12/31/22 at 1030, PROTECT FROM LIGHT -- TOTAL VOLUME = 100 ML Note: Maximum dose = 800mg EXP: 12/31/22 1400 refrigerated New Bag/Syringe/Wuwiyv8812/31/2022 10:55 AM OEY401.2 mg100 mL/hr Chief Complaint and Reason for Visit From encounter dated '10/11/2024 11:09'. dl (chief complaint). Description: DL No Information From encounter dated '10/27/2024 10:36'. rct (chief complaint). Description: rct Additional Source Comments Reason for Visit (unrecogniz ed section and content) ReasonCommentsInfusionSpecialtyDiagnoses / ProceduresReferred By ContactReferred To Contact Diagnoses Seropositive rheumatoid arthritis (HCC) Procedures INJECTION, RENFLEXIS INJ. AVSOLA, 10 MG Juan Daniel Leos MD [address] [place] [address] [facility] Infusion [facility] [address] [place] [address] Referral IDStatusReasonStart DateExpiration DateVisits RequestedVisits [id number]/10/20227/[id number] infusionSpecialtyDiagnoses / ProceduresReferred By ContactReferred To Contact Diagnoses Seropositive rheumatoid arthritis (HCC) Procedures INJECTION, RENFLEXIS Juan Daniel Leos MD [address] [place] [address] [facility] [address] [place] [address] Referral IDStatusReasonStart DateExpiration DateVisits RequestedVisits [id number]/10/20227/[id number] IDStatusReasonStart Date Expiration DateVisits RequestedVisits [id number]/10/[id number] Bleedingpt states onset this afternoon, along with lower abd cramping. Pt states she is 7 weeks ReasonCommentsWrist Painright wrist, extends into right hand, onset today, no known injuryReason CommentsArm Painleft arm- 30wks with history of RA, has elbow and wrist pain, noticed red spot yesterdayReasonCommentsScheduled InductionStatusReason SpecialtyDiagnoses / ProceduresReferred By ContactReferred To Contact Diagnoses Term Tosha Viera, [place] - CNShara [address] [place] [address] [facility] ReasonCommentsCovid TestingPt states positive exposure with loss of smell/taste and coughOtalgiaRightJoint PainKnees/feet r/t arthritisReasonCommentsCough ongoing for a weekStatusReasonSpecialtyDiagnoses / ProceduresReferred By Contact Referred To ContactOpenRadiology Diagnoses Right upper quadrant abdominal pain Procedures US Gallbladder Tosha Mcginnis, TRANSCRIPTION - CNM [address] [facility] [address] [place] [address] ReasonCommentsInsurance AuthorizationPrior Auth Delayed: Additional Info needed for RenflexisReasonCommentsAppointmentSpecialtyDiagnoses / ProceduresReferred By ContactReferred To Contact Diagnoses Seropositive rheumatoid arthritis (HCC) Procedures INJECTION, RENFLEXIS Juan Daniel Leos MD [address] [place] [address] [facility] [address] [place] [address] ReasonCommentsFollow UpReasonCommentsResultsReasonCommentsQuestionReasonComments Patient QuestionReasonCommentsQuestionReturn Provider CallReasonCommentsFollow UpReasonCommentsSmoking CessationReasonCommentsInsurance AuthorizationPrior auth delayed: Additional Info Needed (Renflexis)ReasonCommentsResultsReasonComments Refill RequestReasonCommentsRheumatoid Arthritisinfusion -- c/o swelling in veronica hands and feet -- discuss medication options - requesting orders for xrays to have done a facility closer to home , fatigueReasonCommentsMedication Problem ReasonCommentsPatient UpdateReasonCommentsInsurance AuthorizationPrior Auth Delayed: P2P requested for AvsolaReasonCommentsFollow UpRA -- infusion today Referral IDStatusReasonStart DateExpiration DateVisits RequestedVisits [id number]/10/20227/10/[id number] / Procedures Referred By ContactReferred To Contact Diagnoses Seropositive rheumatoid arthritis (HCC) Procedures TOCILIZUMAB INJECTION tocilizumab 281.2 mg (ACTEMRA) Q28 days Fariba Hill, TRANSCRIPTION.FOOD SAMPLER [address] [place] [address] [facility] [address] [place] [address] Referral IDStatusReasonStart DateExpiration DateVisits RequestedVisits [id number]/19/20239/[id number] Orders SpecialtyDiagnoses / ProceduresReferred By ContactReferred To Contact Diagnoses Seropositive rheumatoid arthritis (HCC) Procedures TOCILIZUMAB INJECTION tocilizumab 281.2 mg (ACTEMRA) Q28 days Fariba Hill, TRANSCRIPTION.FOOD SAMPLER [address] [place] [address] [facility] [address] [place] [address] ReasonCommentsF/U 3 Monthcontinues to have severe pain in hands wrists and Rt foot x 2-3 wksReferral IDStatusReasonStart DateExpiration DateVisits Requested Visits [id number] Clearance Not Met - Pt Rescheduled/Cancelled/Chose Not to Proceed [id number] ShowTo f/u aptReasonCommentsWheezing Cough with wheezing, 2 weeksReasonCommentsMed RefillReasonCommentsADHDReason CommentsGynecologic ExamReasonOnset DateCommentsSPP Inflammatory Conditions - Treatment Xpqbqzzx29/07/2025ActemraInsurance Hbytvsxqzjeed31/07/2025PA Submission PendingReasonCommentsConsultDx ra.PainOngoing bi-lateral hand pain. ReasonCommentsPatient RequestReasonCommentsMed RefillReasonCommentsADHD Ordered Prescriptions (unrec ognized section and content) PrescriptionSigDispensedRefillsStart DateEnd Date dexamethasone (DECADRON) 6 MG tablet Take 1 tablet by mouth daily (with breakfast) for 5 days 5 tablet /rescriptionSigDispensedRefillsStart DateEnd Date guaiFENesin-dextromethorphan (ROBITUSSIN DM) 100-10 MG/5ML syrup Take 5 mLs by mouth 3 times daily as needed for Cough 120 mL /05/2020 budesonide (PULMICORT) 0.5 MG/2ML nebulizer suspension Take 2 mLs by nebulization 2 times daily 30 ampule ipratropium-albuterol (DUONEB) 0.5-2.5 (3) MG/3ML SOLN nebulizer solution Inhale 3 mLs into the lungs every 4 hours 360 mL Respiratory Therapy Supplies (NEBULIZER/TUBING/MOUTHPIECE) KIT 1 kit by Does not apply route daily as needed (reactive airway disease) 1 kit doxycycline hyclate (VIBRAMYCIN) 100 MG capsule Take 1 capsule by mouth 2 times daily for 7 days 14 capsule /02/2020 Scheduled Active and Recently Administ ered Medications (unrecognized section and content) Medication Order// budesonide (PULMICORT) nebulizer suspension 500 mcg (COMPLETED) 500 mcg (0.5 mg), Nebulization, ONCE, On 09/15/20 at 1745, For 1 dose, Rinse mouth out with water (without swallowing) after every dose. * 1839 (Given - Provider: Helen Reinoso RCP) dexamethasone (DECADRON) injection 6 mg (COMPLETED) 6 mg, Intramuscular, ONCE, On 09/15/20 at 1830, For 1 dose * 1901 (Given - Provider: Any Viera RN) doxycycline hyclate (VIBRAMYCIN) capsule 100 mg (COMPLETED) 100 mg, Oral, ONCE, On 09/15/20 at 1830, For 1 dose, This medication can interact with tube feedings (TF)- obtain MD order to manage. Recommend holding TF for 1 h before and 2 h after dose. Take 1h before or 2 h after dairy, calcium, iron, magnesium, aluminum or zinc. * 1901 (Given - Provider: Any Viera RN) ipratropium-albuterol (DUONEB) nebulizer solution 1 ampule (COMPLETED) 1 ampule, Inhalation, ONCE, On 09/15/20 at 1745, For 1 dose * 1839 (Given - Provider: Helen Reinoso RCP) Source Comments (unrecognize d section and content) In the event this informatio n is protected by the Federal Confidentiality of Alcohol and Drug Abuse Patient Records regulations: The Federal rules restrict any use of the information to criminally investigate or prosecute any alcohol or drug abuse patient.[facility] HospitalIn the event this information is protected by the Federal Confidentiality of Alcohol and Drug Abuse Patient Records regulations: The Federal rules restrict any use of the information to criminally investigate or prosecute any alcohol or drug abuse patient.[facility] HospitalIn the event this information is protected by the Federal Confidentiality of Alcohol and Drug Abuse Patient Records regulations: The Federal rules restrict any use of the information to criminally investigate or prosecute any alcohol or drug abuse patient.[facility] HospitalIn the event this information is protected by the Federal Confidentiality of Alcohol and Drug Abuse Patient Records regulations: The Federal rules restrict any use of the information to criminally investigate or prosecute any alcohol or drug abuse patient.[facility] HospitalIn the event this information is protected by the Federal Confidentiality of Alcohol and Drug Abuse Patient Records regulations: The Federal rules restrict any use of the information to criminally investigate or prosecute any alcohol or drug abuse patient.[facility] HospitalIn the event this information is protected by the Federal Confidentiality of Alcohol and Drug Abuse Patient Records regulations: The Federal rules restrict any use of the information to criminally investigate or prosecute any alcohol or drug abuse patient.[facility] HospitalIn the event this information is protected by the Federal Confidentiality of Alcohol and Drug Abuse Patient Records regulations: The Federal rules restrict any use of the information to criminally investigate or prosecute any alcohol or drug abuse patient.[facility] HospitalIn the event this information is protected by the Federal Confidentiality of Alcohol and Drug Abuse Patient Records regulations: The Federal rules restrict any use of the information to criminally investigate or prosecute any alcohol or drug abuse patient.[facility] HospitalIn the event this information is protected by the Federal Confidentiality of Alcohol and Drug Abuse Patient Records regulations: The Federal rules restrict any use of the information to criminally investigate or prosecute any alcohol or drug abuse patient.[facility] HospitalIn the event this information is protected by the Federal Confidentiality of Alcohol and Drug Abuse Patient Records regulations: The Federal rules restrict any use of the information to criminally investigate or prosecute any alcohol or drug abuse patient.[facility] HospitalIn the event this information is protected by the Federal Confidentiality of Alcohol and Drug Abuse Patient Records regulations: The Federal rules restrict any use of the information to criminally investigate or prosecute any alcohol or drug abuse patient.[facility] HospitalIn the event this information is protected by the Federal Confidentiality of Alcohol and Drug Abuse Patient Records regulations: The Federal rules restrict any use of the information to criminally investigate or prosecute any alcohol or drug abuse patient.[facility] HospitalIn the event this information is protected by the Federal Confidentiality of Alcohol and Drug Abuse Patient Records regulations: The Federal rules restrict any use of the information to criminally investigate or prosecute any alcohol or drug abuse patient.[facility] HospitalIn the event this information is protected by the Federal Confidentiality of Alcohol and Drug Abuse Patient Records regulations: The Federal rules restrict any use of the information to criminally investigate or prosecute any alcohol or drug abuse patient.[facility] HospitalIn the event this information is protected by the Federal Confidentiality of Alcohol and Drug Abuse Patient Records regulations: The Federal rules restrict any use of the information to criminally investigate or prosecute any alcohol or drug abuse patient.[facility] HospitalIn the event this information is protected by the Federal Confidentiality of Alcohol and Drug Abuse Patient Records regulations: The Federal rules restrict any use of the information to criminally investigate or prosecute any alcohol or drug abuse patient.[facility] HospitalIn the event this information is protected by the Federal Confidentiality of Alcohol and Drug Abuse Patient Records regulations: The Federal rules restrict any use of the information to criminally investigate or prosecute any alcohol or drug abuse patient.[facility] HospitalIn the event this information is protected by the Federal Confidentiality of Alcohol and Drug Abuse Patient Records regulations: The Federal rules restrict any use of the information to criminally investigate or prosecute any alcohol or drug abuse patient.[facility] HospitalIn the event this information is protected by the Federal Confidentiality of Alcohol and Drug Abuse Patient Records regulations: The Federal rules restrict any use of the information to criminally investigate or prosecute any alcohol or drug abuse patient.[facility] HospitalIn the event this information is protected by the Federal Confidentiality of Alcohol and Drug Abuse Patient Records regulations: The Federal rules restrict any use of the information to criminally investigate or prosecute any alcohol or drug abuse patient.[facility] HospitalIn the event this information is protected by the Federal Confidentiality of Alcohol and Drug Abuse Patient Records regulations: The Federal rules restrict any use of the information to criminally investigate or prosecute any alcohol or drug abuse patient.[facility] HospitalIn the event this information is protected by the Federal Confidentiality of Alcohol and Drug Abuse Patient Records regulations: The Federal rules restrict any use of the information to criminally investigate or prosecute any alcohol or drug abuse patient.[facility] HospitalIn the event this information is protected by the Federal Confidentiality of Alcohol and Drug Abuse Patient Records regulations: The Federal rules restrict any use of the information to criminally investigate or prosecute any alcohol or drug abuse patient.[facility] HospitalIn the event this information is protected by the Federal Confidentiality of Alcohol and Drug Abuse Patient Records regulations: The Federal rules restrict any use of the information to criminally investigate or prosecute any alcohol or drug abuse patient.[facility] HospitalIn the event this information is protected by the Federal Confidentiality of Alcohol and Drug Abuse Patient Records regulations: The Federal rules restrict any use of the information to criminally investigate or prosecute any alcohol or drug abuse patient.[facility] HospitalIn the event this information is protected by the Federal Confidentiality of Alcohol and Drug Abuse Patient Records regulations: The Federal rules restrict any use of the information to criminally investigate or prosecute any alcohol or drug abuse patient.[facility] HospitalIn the event this information is protected by the Federal Confidentiality of Alcohol and Drug Abuse Patient Records regulations: The Federal rules restrict any use of the information to criminally investigate or prosecute any alcohol or drug abuse patient.[facility] HospitalIn the event this information is protected by the Federal Confidentiality of Alcohol and Drug Abuse Patient Records regulations: The Federal rules restrict any use of the information to criminally investigate or prosecute any alcohol or drug abuse patient.[facility] HospitalIn the event this information is protected by the Federal Confidentiality of Alcohol and Drug Abuse Patient Records regulations: The Federal rules restrict any use of the information to criminally investigate or prosecute any alcohol or drug abuse patient.[facility] HospitalIn the event this information is protected by the Federal Confidentiality of Alcohol and Drug Abuse Patient Records regulations: The Federal rules restrict any use of the information to criminally investigate or prosecute any alcohol or drug abuse patient.[facility] HospitalIn the event this information is protected by the Federal Confidentiality of Alcohol and Drug Abuse Patient Records regulations: The Federal rules restrict any use of the information to criminally investigate or prosecute any alcohol or drug abuse patient.[facility] HospitalIn the event this information is protected by the Federal Confidentiality of Alcohol and Drug Abuse Patient Records regulations: The Federal rules restrict any use of the information to criminally investigate or prosecute any alcohol or drug abuse patient.[facility] HospitalIn the event this information is protected by the Federal Confidentiality of Alcohol and Drug Abuse Patient Records regulations: The Federal rules restrict any use of the information to criminally investigate or prosecute any alcohol or drug abuse patient.[facility] HospitalIn the event this information is protected by the Federal Confidentiality of Alcohol and Drug Abuse Patient Records regulations: The Federal rules restrict any use of the information to criminally investigate or prosecute any alcohol or drug abuse patient.[facility] HospitalIn the event this information is protected by the Federal Confidentiality of Alcohol and Drug Abuse Patient Records regulations: The Federal rules restrict any use of the information to criminally investigate or prosecute any alcohol or drug abuse patient.[facility] HospitalIn the event this information is protected by the Federal Confidentiality of Alcohol and Drug Abuse Patient Records regulations: The Federal rules restrict any use of the information to criminally investigate or prosecute any alcohol or drug abuse patient.[facility] HospitalIn the event this information is protected by the Federal Confidentiality of Alcohol and Drug Abuse Patient Records regulations: The Federal rules restrict any use of the information to criminally investigate or prosecute any alcohol or drug abuse patient.[facility] HospitalIn the event this information is protected by the Federal Confidentiality of Alcohol and Drug Abuse Patient Records regulations: The Federal rules restrict any use of the information to criminally investigate or prosecute any alcohol or drug abuse patient.[facility] HospitalIn the event this information is protected by the Federal Confidentiality of Alcohol and Drug Abuse Patient Records regulations: The Federal rules restrict any use of the information to criminally investigate or prosecute any alcohol or drug abuse patient.[facility] HospitalIn the event this information is protected by the Federal Confidentiality of Alcohol and Drug Abuse Patient Records regulations: The Federal rules restrict any use of the information to criminally investigate or prosecute any alcohol or drug abuse patient.[facility] HospitalIn the event this information is protected by the Federal Confidentiality of Alcohol and Drug Abuse Patient Records regulations: The Federal rules restrict any use of the information to criminally investigate or prosecute any alcohol or drug abuse patient.[facility] HospitalIn the event this information is protected by the Federal Confidentiality of Alcohol and Drug Abuse Patient Records regulations: The Federal rules restrict any use of the information to criminally investigate or prosecute any alcohol or drug abuse patient.[facility] HospitalIn the event this information is protected by the Federal Confidentiality of Alcohol and Drug Abuse Patient Records regulations: The Federal rules restrict any use of the information to criminally investigate or prosecute any alcohol or drug abuse patient.[facility] HospitalIn the event this information is protected by the Federal Confidentiality of Alcohol and Drug Abuse Patient Records regulations: The Federal rules restrict any use of the information to criminally investigate or prosecute any alcohol or drug abuse patient.[facility] HospitalIn the event this information is protected by the Federal Confidentiality of Alcohol and Drug Abuse Patient Records regulations: The Federal rules restrict any use of the information to criminally investigate or prosecute any alcohol or drug abuse patient.[facility] HospitalIn the event this information is protected by the Federal Confidentiality of Alcohol and Drug Abuse Patient Records regulations: The Federal rules restrict any use of the information to criminally investigate or prosecute any alcohol or drug abuse patient.[facility] HospitalIn the event this information is protected by the Federal Confidentiality of Alcohol and Drug Abuse Patient Records regulations: The Federal rules restrict any use of the information to criminally investigate or prosecute any alcohol or drug abuse patient.[facility] HospitalIn the event this information is protected by the Federal Confidentiality of Alcohol and Drug Abuse Patient Records regulations: The Federal rules restrict any use of the information to criminally investigate or prosecute any alcohol or drug abuse patient.[facility] HospitalIn the event this information is protected by the Federal Confidentiality of Alcohol and Drug Abuse Patient Records regulations: The Federal rules restrict any use of the information to criminally investigate or prosecute any alcohol or drug abuse patient.[facility] HospitalIn the event this information is protected by the Federal Confidentiality of Alcohol and Drug Abuse Patient Records regulations: The Federal rules restrict any use of the information to criminally investigate or prosecute any alcohol or drug abuse patient.[facility] HospitalIn the event this information is protected by the Federal Confidentiality of Alcohol and Drug Abuse Patient Records regulations: The Federal rules restrict any use of the information to criminally investigate or prosecute any alcohol or drug abuse patient.[facility] HospitalIn the event this information is protected by the Federal Confidentiality of Alcohol and Drug Abuse Patient Records regulations: The Federal rules restrict any use of the information to criminally investigate or prosecute any alcohol or drug abuse patient.[facility] HospitalIn the event this information is protected by the Federal Confidentiality of Alcohol and Drug Abuse Patient Records regulations: The Federal rules restrict any use of the information to criminally investigate or prosecute any alcohol or drug abuse patient.[facility] HospitalIn the event this information is protected by the Federal Confidentiality of Alcohol and Drug Abuse Patient Records regulations: The Federal rules restrict any use of the information to criminally investigate or prosecute any alcohol or drug abuse patient.[facility] HospitalIn the event this information is protected by the Federal Confidentiality of Alcohol and Drug Abuse Patient Records regulations: The Federal rules restrict any use of the information to criminally investigate or prosecute any alcohol or drug abuse patient.[facility] HospitalIn the event this information is protected by the Federal Confidentiality of Alcohol and Drug Abuse Patient Records regulations: The Federal rules restrict any use of the information to criminally investigate or prosecute any alcohol or drug abuse patient.[facility] HospitalIn the event this information is protected by the Federal Confidentiality of Alcohol and Drug Abuse Patient Records regulations: The Federal rules restrict any use of the information to criminally investigate or prosecute any alcohol or drug abuse patient.[facility] HospitalIn the event this information is protected by the Federal Confidentiality of Alcohol and Drug Abuse Patient Records regulations: The Federal rules restrict any use of the information to criminally investigate or prosecute any alcohol or drug abuse patient.[facility] HospitalIn the event this information is protected by the Federal Confidentiality of Alcohol and Drug Abuse Patient Records regulations: The Federal rules restrict any use of the information to criminally investigate or prosecute any alcohol or drug abuse patient.[facility] HospitalIn the event this information is protected by the Federal Confidentiality of Alcohol and Drug Abuse Patient Records regulations: The Federal rules restrict any use of the information to criminally investigate or prosecute any alcohol or drug abuse patient.[facility] HospitalIn the event this information is protected by the Federal Confidentiality of Alcohol and Drug Abuse Patient Records regulations: The Federal rules restrict any use of the information to criminally investigate or prosecute any alcohol or drug abuse patient.[facility] HospitalIn the event this information is protected by the Federal Confidentiality of Alcohol and Drug Abuse Patient Records regulations: The Federal rules restrict any use of the information to criminally investigate or prosecute any alcohol or drug abuse patient.[facility] HospitalIn the event this information is protected by the Federal Confidentiality of Alcohol and Drug Abuse Patient Records regulations: The Federal rules restrict any use of the information to criminally investigate or prosecute any alcohol or drug abuse patient.[facility] HospitalIn the event this information is protected by the Federal Confidentiality of Alcohol and Drug Abuse Patient Records regulations: The Federal rules restrict any use of the information to criminally investigate or prosecute any alcohol or drug abuse patient.[facility] HospitalIn the event this information is protected by the Federal Confidentiality of Alcohol and Drug Abuse Patient Records regulations: The Federal rules restrict any use of the information to criminally investigate or prosecute any alcohol or drug abuse patient.[facility] HospitalIn the event this information is protected by the Federal Confidentiality of Alcohol and Drug Abuse Patient Records regulations: The Federal rules restrict any use of the information to criminally investigate or prosecute any alcohol or drug abuse patient.[facility] HospitalIn the event this information is protected by the Federal Confidentiality of Alcohol and Drug Abuse Patient Records regulations: The Federal rules restrict any use of the information to criminally investigate or prosecute any alcohol or drug abuse patient.[facility] HospitalIn the event this information is protected by the Federal Confidentiality of Alcohol and Drug Abuse Patient Records regulations: The Federal rules restrict any use of the information to criminally investigate or prosecute any alcohol or drug abuse patient.[facility] HospitalIn the event this information is protected by the Federal Confidentiality of Alcohol and Drug Abuse Patient Records regulations: The Federal rules restrict any use of the information to criminally investigate or prosecute any alcohol or drug abuse patient.[facility] HospitalIn the event this information is protected by the Federal Confidentiality of Alcohol and Drug Abuse Patient Records regulations: The Federal rules restrict any use of the information to criminally investigate or prosecute any alcohol or drug abuse patient.[facility] HospitalIn the event this information is protected by the Federal Confidentiality of Alcohol and Drug Abuse Patient Records regulations: The Federal rules restrict any use of the information to criminally investigate or prosecute any alcohol or drug abuse patient.[facility] HospitalIn the event this information is protected by the Federal Confidentiality of Alcohol and Drug Abuse Patient Records regulations: The Federal rules restrict any use of the information to criminally investigate or prosecute any alcohol or drug abuse patient.[facility] HospitalIn the event this information is protected by the Federal Confidentiality of Alcohol and Drug Abuse Patient Records regulations: The Federal rules restrict any use of the information to criminally investigate or prosecute any alcohol or drug abuse patient.[facility] HospitalIn the event this information is protected by the Federal Confidentiality of Alcohol and Drug Abuse Patient Records regulations: The Federal rules restrict any use of the information to criminally investigate or prosecute any alcohol or drug abuse patient.[facility] HospitalIn the event this information is protected by the Federal Confidentiality of Alcohol and Drug Abuse Patient Records regulations: The Federal rules restrict any use of the information to criminally investigate or prosecute any alcohol or drug abuse patient.[facility] HospitalIn the event this information is protected by the Federal Confidentiality of Alcohol and Drug Abuse Patient Records regulations: The Federal rules restrict any use of the information to criminally investigate or prosecute any alcohol or drug abuse patient.[facility] HospitalIn the event this information is protected by the Federal Confidentiality of Alcohol and Drug Abuse Patient Records regulations: The Federal rules restrict any use of the information to criminally investigate or prosecute any alcohol or drug abuse patient.[facility] HospitalIn the event this information is protected by the Federal Confidentiality of Alcohol and Drug Abuse Patient Records regulations: The Federal rules restrict any use of the information to criminally investigate or prosecute any alcohol or drug abuse patient.[facility] HospitalIn the event this information is protected by the Federal Confidentiality of Alcohol and Drug Abuse Patient Records regulations: The Federal rules restrict any use of the information to criminally investigate or prosecute any alcohol or drug abuse patient.[facility] HospitalIn the event this information is protected by the Federal Confidentiality of Alcohol and Drug Abuse Patient Records regulations: The Federal rules restrict any use of the information to criminally investigate or prosecute any alcohol or drug abuse patient.[facility] HospitalIn the event this information is protected by the Federal Confidentiality of Alcohol and Drug Abuse Patient Records regulations: The Federal rules restrict any use of the information to criminally investigate or prosecute any alcohol or drug abuse patient.[facility] HospitalIn the event this information is protected by the Federal Confidentiality of Alcohol and Drug Abuse Patient Records regulations: The Federal rules restrict any use of the information to criminally investigate or prosecute any alcohol or drug abuse patient.[facility] HospitalIn the event this information is protected by the Federal Confidentiality of Alcohol and Drug Abuse Patient Records regulations: The Federal rules restrict any use of the information to criminally investigate or prosecute any alcohol or drug abuse patient.[facility] HospitalIn the event this information is protected by the Federal Confidentiality of Alcohol and Drug Abuse Patient Records regulations: The Federal rules restrict any use of the information to criminally investigate or prosecute any alcohol or drug abuse patient.[facility] HospitalIn the event this information is protected by the Federal Confidentiality of Alcohol and Drug Abuse Patient Records regulations: The Federal rules restrict any use of the information to criminally investigate or prosecute any alcohol or drug abuse patient.[facility] HospitalIn the event this information is protected by the Federal Confidentiality of Alcohol and Drug Abuse Patient Records regulations: The Federal rules restrict any use of the information to criminally investigate or prosecute any alcohol or drug abuse patient.[facility] HospitalIn the event this information is protected by the Federal Confidentiality of Alcohol and Drug Abuse Patient Records regulations: The Federal rules restrict any use of the information to criminally investigate or prosecute any alcohol or drug abuse patient.[facility] HospitalIn the event this information is protected by the Federal Confidentiality of Alcohol and Drug Abuse Patient Records regulations: The Federal rules restrict any use of the information to criminally investigate or prosecute any alcohol or drug abuse patient.[facility] HospitalIn the event this information is protected by the Federal Confidentiality of Alcohol and Drug Abuse Patient Records regulations: The Federal rules restrict any use of the information to criminally investigate or prosecute any alcohol or drug abuse patient.[facility] HospitalIn the event this information is protected by the Federal Confidentiality of Alcohol and Drug Abuse Patient Records regulations: The Federal rules restrict any use of the information to criminally investigate or prosecute any alcohol or drug abuse patient.[facility] HospitalIn the event this information is protected by the Federal Confidentiality of Alcohol and Drug Abuse Patient Records regulations: The Federal rules restrict any use of the information to criminally investigate or prosecute any alcohol or drug abuse patient.[facility] HospitalIn the event this information is protected by the Federal Confidentiality of Alcohol and Drug Abuse Patient Records regulations: The Federal rules restrict any use of the information to criminally investigate or prosecute any alcohol or drug abuse patient.[facility] HospitalIn the event this information is protected by the Federal Confidentiality of Alcohol and Drug Abuse Patient Records regulations: The Federal rules restrict any use of the information to criminally investigate or prosecute any alcohol or drug abuse patient.[facility] HospitalIn the event this information is protected by the Federal Confidentiality of Alcohol and Drug Abuse Patient Records regulations: The Federal rules restrict any use of the information to criminally investigate or prosecute any alcohol or drug abuse patient.[facility] HospitalIn the event this information is protected by the Federal Confidentiality of Alcohol and Drug Abuse Patient Records regulations: The Federal rules restrict any use of the information to criminally investigate or prosecute any alcohol or drug abuse patient.[facility] HospitalIn the event this information is protected by the Federal Confidentiality of Alcohol and Drug Abuse Patient Records regulations: The Federal rules restrict any use of the information to criminally investigate or prosecute any alcohol or drug abuse patient.[facility] HospitalIn the event this information is protected by the Federal Confidentiality of Alcohol and Drug Abuse Patient Records regulations: The Federal rules restrict any use of the information to criminally investigate or prosecute any alcohol or drug abuse patient.[facility] HospitalIn the event this information is protected by the Federal Confidentiality of Alcohol and Drug Abuse Patient Records regulations: The Federal rules restrict any use of the information to criminally investigate or prosecute any alcohol or drug abuse patient.[facility] Care Teams (unrecognized sec tion and content) Team MemberRelationshipSpecialtyStart DateEnd Date Tino Blake PCP - GeneralFamily Mjutyztm05/17/17Team MemberRelationshipSpecialtyStart Date End Date Tino Blake PCP - GeneralFamily Dptbxhjt04/17/17Team MemberRelationshipSpecialtyStart Date End Date Tino Blake PCP - GeneralFamily Sisyqhek51/17/17Team MemberRelationshipSpecialtyStart Date End Date Tino Blake PCP - GeneralFamily Yjzfntnv02/17/17Team MemberRelationshipSpecialtyStart Date End Date Tino Blake PCP - GeneralFamily Wvtqltwm88/17/17Team MemberRelationshipSpecialtyStart Date End Date HaydenTino mejia PCP - GeneralFamily Zfxjngku94/17/17Team MemberRelationshipSpecialtyStart Date End Date [place] PCP - GeneralFamily Jiykafku44/17/17Team MemberRelationshipSpecialtyStart Date End Date HaydenTino jean PCP - GeneralFamily Xlvdxzvi00/17/17Team MemberRelationshipSpecialtyStart Date End Date HaydenTino mejia PCP - GeneralFamily Mmaqhzyr41/17/17Team MemberRelationshipSpecialtyStart Date End Date [place] PCP - GeneralFamily Drmrcxer79/17/17Team MemberRelationshipSpecialtyStart Date End Date HaydenTino jean PCP - GeneralFamily Ukxduzuk58/17/17Team MemberRelationshipSpecialtyStart Date End Date [place] PCP - GeneralFamily Tgmfskaq65/17/17Team MemberRelationshipSpecialtyStart Date End Date [place] PCP - GeneralFamily Kqdqyfhe22/1717Team MemberRelationshipSpecialtyStart Date End Date [place] PCP - GeneralFamily Bqcmoter32/17/17Team MemberRelationshipSpecialtyStart Date End Date Tino Blake PCP - GeneralFamily Lmedckbi50/17/17Team MemberRelationshipSpecialtyStart Date End Date [place] PCP - GeneralFamily Urgtfzkc83/17/17Team MemberRelationshipSpecialtyStart Date End Date HaydenTino mejia PCP - GeneralFamily Mpugkqlt34/17/17Team MemberRelationshipSpecialtyStart Date End Date HaydenTino mejia PCP - GeneralFamily Bzimnwjs21/1717Team MemberRelationshipSpecialtyStart Date End Date HaydenTino mejia PCP - GeneralFamily Lodhhill91/1717Team MemberRelationshipSpecialtyStart Date End Date [place] PCP - GeneralFamily Sfweaxbi47/1717Team MemberRelationshipSpecialtyStart Date End Date [place] me[place] PCP - GeneralFamily Hticuwne66/1717Team MemberRelationshipSpecialtyStart Date End Date HaydenTino mejia PCP - GeneralFamily Nwzmqwoc02/17/17Team MemberRelationshipSpecialtyStart Date End Date Tino Blake PCP - GeneralFamily Gfhgpzzr20/17/17Team MemberRelationshipSpecialtyStart Date End Date Tino Blake PCP - GeneralFamily Pyjidzjl86/17/17Team MemberRelationshipSpecialtyStart Date End Date HaydenTino mejia PCP - GeneralFamily Sqemigct09/17/17Team MemberRelationshipSpecialtyStart Date End Date [place] PCP - GeneralFamily Bjjhueae06/1717Team MemberRelationshipSpecialtyStart Date End Date HaydenTino mejia PCP - GeneralFamily Sibbkhwb86/17/17Team MemberRelationshipSpecialtyStart Date End Date [place] PCP - GeneralFamily Fjfuphdp32/1717Team MemberRelationshipSpecialtyStart Date End Date HaydenTino mejia PCP - GeneralFamily Klnyoxvh60/1717Team MemberRelationshipSpecialtyStart Date End Date [place] PCP - GeneralFamily Yfpacvzc77/17/17Team MemberRelationshipSpecialtyStart Date End Date HaydenTino mejia PCP - GeneralFamily Hkwxdvnj33/17/17Team MemberRelationshipSpecialtyStart Date End Date Tino Blake PCP - Generalmily Mnqsvagc48/17/17Team MemberRelationshipSpecialtyStart Date End Date Tino Blake PCP - GeneralFamily Ttlskbhy52/17/17Team MemberRelationshipSpecialtyStart Date End Date Tino Blake PCP - Generalmily Ymtwomjs01/17/17Team MemberRelationshipSpecialtyStart Date End Date Tino Blake PCP - Generalmily Ezcyhbvh63/17/17Team MemberRelationshipSpecialtyStart Date End Date Tino Blake PCP - Generalmily Gxscrpjt39/17/17Team MemberRelationshipSpecialtyStart Date End Date Tino Blake PCP - Generalmily Zxjbttig05/17/17Team MemberRelationshipSpecialtyStart Date End Date Tino Blake PCP - Generalmily Kdsvlvqe36/17/17Team MemberRelationshipSpecialtyStart Date End Date Tino Blake MD PCP - Generalmily Cmbubkbo98/17/17Team MemberRelationshipSpecialtyStart Date End Date Tino Blake MD PCP - GeneralFamily Guinrpqf75/17/17Team MemberRelationshipSpecialtyStart Date End Date Tino Blake MD PCP - GeneralFamily Oodyfkdb62/17/17Team MemberRelationshipSpecialtyStart Date End Date Tino Blake MD PCP - GeneralFamily Ouyzxios14/17/17Team MemberRelationshipSpecialtyStart Date End Date Tino Blake MD PCP - GeneralFamily Yoxfgoix49/17/17Team MemberRelationshipSpecialtyStart Date End Date Tino Blake MD PCP - GeneralFamily Yymnpldo15/17/17Team MemberRelationshipSpecialtyStart Date End Date Tino Blake MD PCP - GeneralFamily Pasetmgt26/17/17Team MemberRelationshipSpecialtyStart Date End Date Tino Blake MD PCP - GeneralFamily Ojcklxfx82/17/17Team MemberRelationshipSpecialtyStart Date End Date Tino Blake MD PCP - GeneralFamily Ptoasthh95/17/17Team MemberRelationshipSpecialtyStart Date End Date Tino Blake MD PCP - GeneralFamily Kiceqlgd50/17/17Team MemberRelationshipSpecialtyStart Date End Date Tino Blake MD PCP - GeneralFamily Ujigfvhw94/17/17Team MemberRelationshipSpecialtyStart Date End Date Tino Blake MD PCP - GeneralFamily Cniownoo07/17/17Team MemberRelationshipSpecialtyStart Date End Date Tino Blake MD PCP - Generalmily Vkpaphgo89/17/17Team MemberRelationshipSpecialtyStart Date End Date Tino Blake MD PCP - Generalmily Mguptexs22/17/17Team MemberRelationshipSpecialtyStart Date End Date Tino Blake MD PCP - Generalmily Yoxqvvor30/17/17Team MemberRelationshipSpecialtyStart Date End Date Tino Blake MD PCP - GeneralFamily Gxbywzoq36/17/17Team MemberRelationshipSpecialtyStart Date End Date Tino Blake MD PCP - GeneralFamily Wlocnlap04/17/17Team MemberRelationshipSpecialtyStart Date End Date Tino Blake MD PCP - [facility] Rcdlgrps46/17/17 MemberRelationshipSpecialtyStart Date End Date Tino Blake MD PCP - [facility] Zzouybcl63/17/17am MemberRelationshipSpecialtyStart Date End Date Tino Blake MD PCP - [facility]12/08/16am MemberRelationshipSpecialtyStart Date End Date Tino Blake MD PCP - [facility]12/08/16am MemberRelationshipSpecialtyStart Date End Date Madhu Voss MD [address] [place] [phone] PCP - [facility]04/28/23 Niya Santiago NP [address] [place] [address] Nurse [facility]04/28/23Te MemberRelationshipSpecialtyStart DateEnd Date Madhu Voss MD [address] [place] [address] PCP - [facility]04/28/23 Niya Santiago NP [address] [place] [address] [facility]04/28/23Team MemberRelationshipSpecialtyStart DateEnd Date Madhu Voss MD [address] [place] [address] [facility]/28/23 Niya Santiago NP [address] [place] [address] [facility]04/28/23Team MemberRelationshipSpecialtyStart DateEnd Date Madhu Voss MD [address] [place] [address] [facility] - [facility]04/28/23 Niya Santiago, MARY [address] [place] [address] [facility]04/28/23Team MemberRelationshipSpecialtyStart DateEnd Date Madhu Voss MD [address] [place] [address] [facility] - [facility]04/28/23 Niya Santiago NP [address] [place] [address] [facility]04/28/23Team MemberRelationshipSpecialtyStart DateEnd Date Madhu Voss MD [address] [place] [address] PCP - GeneralFamily Medicine04/28/23 Niya Santiago NP [address] [place] [address] Nurse PractitionerFamily Medicine04/28/23Team MemberRelationshipSpecialtyStart DateEnd Date Madhu Voss MD [address] [place] [address] PCP - GeneralFamily Medicine04/28/23 Niya Santiago NP [address] [place] [address] Nurse Practitionermily Medicine04/28/23Team MemberRelationshipSpecialtyStart DateEnd Date Madhu Voss MD [address] [place] [address] PCP - GeneralFamily Medicine04/28/23 Niya Santiago NP [address] [place] [address] Nurse PractitionerFamily Medicine04/28/23Team MemberRelationshipSpecialtyStart DateEnd Date Niya Santiago CNP [address] [place] [address] PCP - GeneralFamily Medicine03/31/24Team MemberRelationshipSpecialtyStart DateEnd Date Niya Santiago FOOD SAMPLER [address] [place] [address] PCP - GeneralFamily Medicine03/31/24Team MemberRelationshipSpecialtyStart DateEnd Date Niya Santiago CNP [address] [place] [address] PCP - GeneralFamily Medicine03/31/24Team MemberRelationshipSpecialtyStart DateEnd Date Madhu Voss MD [address] [place] [address] PCP - GeneralFamily Medicine04/28/23 Niya Santiago, IN STORE MARKETER [address] [place] [address] Nurse Practitionermily Medicine04/28/23Team MemberRelationshipSpecialtyStart DateEnd Date Madhu Voss MD [address] [place] [address] PCP - GeneralFamily Medicine04/28/23 Niya Santiago IN [employer] MARK[employer]ER [address] [place] [address] Nurse PractitionerFamily Medicine04/28/23Team MemberRelationshipSpecialtyStart DateEnd Date Madhu Voss MD [address] [place] [address] PCP - GeneralFamily Medicine04/28/23 Niya Santiago IN STORE MARKETER [address] [place] [address] Nurse PractitionerFamily Medicine04/28/23Team MemberRelationshipSpecialtyStart DateEnd Date Niya Santiago CNP [address] [place] [address] PCP - GeneralFamily Medicine03/31/24Team MemberRelationshipSpecialtyStart DateEnd Date Madhu Voss MD [address] [place] [address] PCP - GeneralFamily Medicine04/28/23 Niya Santiago NP [address] [place] [address] [facility]04/28/23Team MemberRelationshipSpecialtyStart DateEnd Date Madhu Voss MD [address] [place] [address] PCP - GeneralFamily Medicine04/28/23 Niya Santiago NP [address] [place] [address] Nurse Practitionermily Medicine04/28/23Team MemberRelationshipSpecialtyStart DateEnd Date Madhu Voss MD [address] [place] [address] PCP - GeneralFamily Medicine04/28/23 Niya Santiago NP [address] [place] [address] Nurse PractitionerFamily Medicine04/28/23Team MemberRelationshipSpecialtyStart DateEnd Date Madhu Voss MD [address] [place] [address] PCP - GeneralFamily Medicine04/28/23 Niya Santiago NP [address] [place] [address] [facility]04/28/23 Name Effective Dates (start - stop) Status Members No Information INFORMATION SOURCE (unrecogn ized section and content) DATE CREATED AUTHOR 07/13/2021 [facility] DATE CREATED AUTHOR AUTHOR'S ORGANIZ ATION 07/05/2022 [facility] DATE CREATED AUTHOR AUTHOR'S ORGANIZ ATION 05/13/2024 [facility] DATE CREATED AUTHOR AUTHOR'S ORGANIZ ATION 09/03/2024 [facility] DATE CREATED AUTHOR AUTHOR'S ORGANIZ ATION 10/29/2024 [facility] Inactive Administered Medications - up to 3 most recent administrations Administered Medications (un recognized section and content) Medication OrderMAR ActionAction DateDoseRateSite tocilizumab 562.4 mg in NaCl 0.9% 100 mL (ACTEMRA) 562.4 mg (8 mg/kg/dose 70.3 kg Order-specific weight), INTRAVENOUS, at 100 mL/hr, Administer over 60 Minutes, ONCE, 1 dose, On Wed03/31/23 at 1130, PROTECT FROM LIGHT -- TOTAL VOLUME = 100 ML Increased to 8mg/kg 01/20/23 EXP: 03/31/23 REF New Bag/Syringe/Yxxyxs3503/31/2023 11:48 AM SJE047.4 mg100 mL/hrMedication Order MAR ActionAction DateDoseRateSite tocilizumab 562.4 mg in NaCl 0.9% 100 mL (ACTEMRA) 562.4 mg (8 mg/kg/dose 70.3 kg Order-specific weight), INTRAVENOUS, at 100 mL/hr, Administer over 60 Minutes, ONCE, 1 dose, On Wed04/28/23 at 1230, PROTECT FROM LIGHT -- TOTAL VOLUME = 100 ML Increased to 8mg/kg 01/20/23 EXP: 04/27/22 REF New Bag/Syringe/Fqmgxt6404/28/2023 12:40 PM CXW967.4 mg100 mL/hrMedication Order MAR ActionAction DateDoseRateSite tocilizumab 562.4 mg in NaCl 0.9% 100 mL (ACTEMRA) 562.4 mg (8 mg/kg/dose 70.3 kg Order-specific weight), INTRAVENOUS, at 100 mL/hr, Administer over 60 Minutes, ONCE, 1 dose, On Wed05/26/23 at 1200, PROTECT FROM LIGHT -- TOTAL VOLUME = 100 ML Increased to 8mg/kg 01/20/23 EXP: 05/26/23 REF or room temp New Bag/Syringe/Dkqotu4405/26/2023 11:45 AM HKM272.4 mg100 mL/hrMedication Order MAR ActionAction DateDoseRateSite albuterol 2.5 mg /3 mL (0.083 %) 2.5 mg (PROVENTIL) 2.5 mg, INHALATION, ONCE, 1 dose, On Wed05/26/23 at 1400 Given05/26/2023 1:55 PM EDT2.5 mg FOR RECORDS PERTAINING TO PATIENTS WHO [...] BE BASED ON THE PRIMARY CLINICAL RECORDS. [employer] [facility]. provides no warranty or guarantee of the accuracy or completeness of information in this document.
== END 2024-12-28 13:18 | disposition home or self-care (01) ==
LOC: ER 13:16
PROVIDERS: Emergency Provider Emergency Medicine; PCP Nurse Practitioner
DX: M19.032 Primary osteoarthritis, left wrist (principal)
CPT/HCPCS: 96372; 99284; J1885; J2919